=== PATIENT | male | born 1960 | race Caucasian/White ===

== ENCOUNTER 2018-07-28 22:10 | Emergency (ER) | payer MEDICARE, SELFPAY ==
[2018-07-28 22:11] VITALS: BP 109/61; PULSE 87; RESP 16; TEMP 36.3; O2SAT 92; BMI 50.1
--- NOTE | 2018-07-28 22:31 | EKG12_ITS ---
Test Reason : CP Blood Pressure : / mmHG Vent. Rate : 082 BPM Atrial Rate : 082 BPM P-R Int : 174 ms QRS Dur : 112 ms QT Int : 364 ms P-R-T Axes : 033 085 069 degrees QTc Int : 425 ms Sinus rhythm with marked sinus arrhythmia Low voltage QRS Right bundle branch block Abnormal ECG Confirmed by IDRIS HAMLIN, ADAL ([id number]), editor house organ JAVIER GREEN ([id number]) on 08/01/2018 10:33:24 AM Referred By: HUBER Confirmed By:ADAL STEINBERG MD
--- NOTE | 2018-07-28 22:41 | ED.VISSUMM ---
- ER Visit Summary Date of Service: 07/28/18 Chief Complaint: Increased heart rate palpitations History of Present Illness: The patient is a 58 M with a history of atrial fibrillation. He ran out of his metoprolol. He called the pharmacy today to have it refilled but did not get to the pharmacy before closed. About 2 hours ago he began to feel his heart skipping and racing. He states his heart rate was up to 180. On his way in however his symptoms resolved. Currently he is completely asymptomatic. There is no associated chest pain or shortness of breath. He denies any recent illness. No fevers vomiting diarrhea. He currently has no complaints. Physical Examination: Afebrile vitals normal, heart rate 87, blood pressure 109/61 Moist mucous membranes Heart regular rate and rhythm Lungs are clear Abdomen soft Alert Test Results: EKG shows sinus rhythm at a rate of 82 with a right bundle branch block and sinus arrhythmia. This is similar to previous EKG although previous EKG is atrial bigeminy. Labs notable for creatinine 1.8. Emergency Department Course and Treatment: At this time patient is asymptomatic. He missed his metoprolol. He has a prior history of atrial fibrillation and had palpitations less than 2 hours which is now resolved and he is without complaint. I do believe his symptoms are related to having missed his beta-jackson. I discussed with patient that I do not feel further diagnostic testing would be of benefit, patient and family are in agreement. Patient was given his dose of metoprolol here and we will observe on site monitor. During observation on the site monitor patient was having frequent ectopy with frequent PACs and PVCs so we did establish IV and send laboratory studies. Troponin is negative. Magnesium normal. Electrolytes normal. Incidentally BUN is 53 and creatinine is 1.80 which is up from prior labs of 1.0 however this was 2 years ago. Patient was given IV fluids. I do not feel he requires hospitalization for this but he was advised to contact his primary care physician for repeat labs and follow-up. He understands to return for new or worsening symptoms. Treatment Plan: [] Disposition: Discharge Impression: AK I Palpitations This note was generated with [employer] dictation software. It may contain incorrect words, spelling, and punctuation that were not noted in review of the chart prior to signing ED Disposition - Plan for ED Patient: Referrals: Francisco Alcazar MD [Primary Care Provider] -
--- NOTE | 2018-07-28 22:47 | ED.DCSUM_ITS ---
- ER Visit Summary Date of Service: 07/28/18 Chief Complaint: Increased heart rate palpitations History of Present Illness: The patient is a 58 M with a history of atrial fibrillation. He ran out of his metoprolol. He called the pharmacy today to have it refilled but did not get to the pharmacy before closed. About 2 hours ago he began to feel his heart skipping and racing. He states his heart rate was up to 180. On his way in however his symptoms resolved. Currently he is completely asymptomatic. There is no associated chest pain or shortness of breath. He denies any recent illness. No fevers vomiting diarrhea. He currently has no complaints. Physical Examination: Afebrile vitals normal, heart rate 87, blood pressure 109/61 Moist mucous membranes Heart regular rate and rhythm Lungs are clear Abdomen soft Alert Test Results: EKG shows sinus rhythm at a rate of 82 with a right bundle branch block and sinus arrhythmia. This is similar to previous EKG although previous EKG is atrial bigeminy. Labs notable for creatinine 1.8. Emergency Department Course and Treatment: At this time patient is asymptomatic. He missed his metoprolol. He has a prior history of atrial fibrillation and had palpitations less than 2 hours which is now resolved and he is without complaint. I do believe his symptoms are related to having missed his beta- jackson. I discussed with patient that I do not feel further diagnostic testing would be of benefit, patient and family are in agreement. Patient was given his dose of metoprolol here and we will observe on cardiac catheterization technician. During observation on the cardiac catheterization technician patient was having frequent ectopy with frequent PACs and PVCs so we did establish IV and send laboratory studies. Troponin is negative. Magnesium normal. Electrolytes normal. Incidentally BUN is 53 and creatinine is 1.80 which is up from prior labs of 1.0 however this was 2 years ago. Patient was given IV fluids. I do not feel he requires hospitalization for this but he was advised to contact his primary care physician for repeat labs and follow-up. He understands to return for new or worsening symptoms. Treatment Plan: [] Disposition: Discharge Impression: AK I Palpitations This note was generated with [employer] dictation software. It may contain incorrect words, spelling, and punctuation that were not noted in review of the chart prior to signing ED Disposition - Plan for ED Patient: Referrals: Francisco Alcazar MD [Primary Care Provider] -
[2018-07-28 23:23] LABS: Absolute Lymphocyte Count 1.49 X10^3/ul (0.83-4.51); Basophil# 0.01 X10^3/uL; Basophil% 0.1 % (0-1); Eosinophils% 1.4 % (0-5); Hematocrit 39.3 % (40-54); Hemoglobin 12.7 g/dl (13.0-16.5); Lymphocyte # 1.49 X10^3/ul (4.0); Lymphocyte % 20.2 % (19-41); Mean Corp Hgb Conc 32.3 g/gl (32-36); Mean Corpuscular Hgb 29.2 pg (27.0-32.0); Mean Corpuscular Volume 90.3 fL (80-94); Mean Platelet Vol. 9.4 fl (6.2-12.0); Monocyte# 0.76 X10^3/uL; Monocyte% 10.3 % (0-10); Neutrophil # 5.01 X10^3/uL (2.7-7.7); Neutrophil % 67.7 % (47-70); POSITIVE COUNT NO; POSITIVE DIFFERENTIAL NO; POSITIVE MORPHOLOGY NO; Platelet Count 179 K/mm3 (150-450); RBC Distribution Width CV 14.6 % (11.6-14.6); RBC Distribution Width SD 46.9 fl (35.1-43.9); Red Blood Count 4.35 M/mm3 (4.6-6.2); White Blood Count 7.4 K/mm3 (4.4-11.0)
[2018-07-28] MEDS: Metoprolol(XL)Succ 50 MG Tablet PO (23:25)
[2018-07-28 23:29] VITALS: BP 119/60; PULSE 86; RESP 14; O2SAT 98
[2018-07-28 23:44] LABS: Anion Gap 6 (5-15); BUN 53 mg/dL (7-18); BUN/Creat Ratio 29.4 RATIO (10-20); Chloride 102 mmol/L (98-107); EST Glomerular Filtration Rate 41 mL/min (>60); Est Glom Filt Rate - Afr Amer 50 mL/min (>60); Estimated Creatinine Clearance 42.22 ml/min; Glucose 151 mg/dL (74-106); Magnesium 2.2 mg/dL (1.6-2.6); Potassium 4.7 mmol/L (3.5-5.1); Sodium Level 139 mmol/L (136-145)
--- NOTE | 2018-07-28 23:57 | ED.DEP ---
ED Disposition - Plan for ED Patient: Instructions: ED Palpitations Referrals: Francisco Alcazar MD [Primary Care Provider] - Additional Instructions: Your kidney function was elevated from the last labs that we have on record in 2017. He was given IV fluids. However your blood work will need recheck. Call your primary care physician tomorrow to schedule follow-up appointment and repeat labs.
[2018-07-29 00:08] VITALS: BP 119/60; PULSE 85; RESP 16; O2SAT 97
[2018-07-29] MEDS: 0.9% Normal Saline 1,000 ML 999 ML IV (00:14)
[2018-07-29 01:37] VITALS: PULSE 80; RESP 20; O2SAT 96
--- NOTE | 2018-07-29 01:40 | ED.RN ---
dr ravi aware pt is in bigeminy.
[2018-07-29 02:12] VITALS: BP 116/70; PULSE 80; RESP 16; O2SAT 96
== END 2018-07-29 02:13 | disposition home or self-care (01) ==
LOC: ED 22:40
PROVIDERS: Emergency Provider Emergency Medicine; Family Provider Family Medicine; PCP Family Medicine
DX: R00.2 Palpitations (principal); I45.10 Unspecified right bundle-branch block; E11.9 Type 2 diabetes mellitus without complications; I10 Essential (primary) hypertension; E78.00 Pure hypercholesterolemia, unspecified; G47.33 Obstructive sleep apnea (adult) (pediatric); I48.91 Unspecified atrial fibrillation
CPT/HCPCS: 80048; 83735; 84484; 85025; 93005; 96360; 99285; J7030

== ENCOUNTER 2018-09-08 12:22 | Outpatient (RCR) | payer MEDICARE, SELFPAY ==
[2018-08-30 14:26] VITALS: BMI 51.5
[2018-09-08 13:45] LABS: International Normalized Ratio 1.1; Prothrombin Time (Protime)PT. 14.4 SECONDS (11.7-14.9)
== END 2018-09-08 13:00 | disposition home or self-care (01) ==
LOC: LAB 12:22
PROVIDERS: Family Provider Family Medicine; PCP Family Medicine; Referring Provider Internal Medicine Cardiovascular Disease; Visit Provider Internal Medicine Cardiovascular Disease
DX: I48.91 Unspecified atrial fibrillation (principal); I27.29 Other secondary pulmonary hypertension; Z79.01 Long term (current) use of anticoagulants
CPT/HCPCS: 36415; 85610

== ENCOUNTER 2018-09-22 10:25 | Outpatient (RCR) | payer MEDICARE, SELFPAY ==
[2018-08-30 14:26] VITALS: BMI 51.5
[2018-09-15 13:16] LABS: International Normalized Ratio 1.9; Prothrombin Time (Protime)PT. 21.8 SECONDS (11.7-14.9)
[2018-09-22 11:43] LABS: International Normalized Ratio 2.8; Prothrombin Time (Protime)PT. 29.3 SECONDS (11.7-14.9)
== END 2018-09-22 11:00 | disposition home or self-care (01) ==
LOC: LAB 10:25
PROVIDERS: Family Provider Family Medicine; PCP Family Medicine; Referring Provider Internal Medicine Cardiovascular Disease; Visit Provider Internal Medicine Cardiovascular Disease
DX: I48.91 Unspecified atrial fibrillation (principal); I27.20 Pulmonary hypertension, unspecified; Z79.01 Long term (current) use of anticoagulants
CPT/HCPCS: 36415; 85610

== ENCOUNTER 2018-10-28 13:38 | Outpatient (RCR) | payer MEDICARE, SELFPAY ==
[2018-08-30 14:26] VITALS: BMI 51.5
[2018-10-28 15:09] LABS: Prothrombin Time (Protime)PT. 36.1 SECONDS (11.7-14.9)
[2018-10-28 15:32] LABS: International Normalized Ratio 3.6
== END 2018-11-09 17:29 | disposition home or self-care (01) ==
LOC: LAB 13:38
PROVIDERS: Family Provider Family Medicine; PCP Family Medicine; Referring Provider Internal Medicine Cardiovascular Disease; Visit Provider Internal Medicine Cardiovascular Disease
DX: I48.91 Unspecified atrial fibrillation (principal); I27.29 Other secondary pulmonary hypertension; Z79.01 Long term (current) use of anticoagulants
CPT/HCPCS: 36415; 85610

== ENCOUNTER → 2018-10-31 09:27 | Outpatient (CLI) | payer MEDICARE, SELFPAY ==
[2018-08-30 14:26] VITALS: BMI 51.5
--- NOTE | 2018-10-31 09:28 | ECHOCS_ITS ---
Reason For Study: PULMONARY HTN Procedure This was a 2D Doppler, Color Flow transthoracic echocardiogram. The study was technically difficult. Exam performed in department. Left Ventricle Normal size and thickness. The estimated ejection fraction is 50 %. Septal motion consistent with IVCD. Mid-Anterior : Mildly hypokinetic. Mid-anteroseptal : Mildly hypokinetic. Right Ventricle Moderately dilated right ventricle. Normal systolic function. Atria Normal left atrium. Normal right atrium. Normal atrial septum. Bubble contrast study negative for right to left interatrial shunt. Mitral Valve The mitral valve is structurally normal. No prolapse or stenosis seen. Tricuspid Valve Normal tricuspid valve. Mild (1+) tricuspid valve insufficiency. Right ventricular systolic pressure estimated to be 45 mmHg. Mild pulmonary hypertension. Aortic Valve Normal aortic valve. Trisinus/trileaflet aortic valve. Pulmonic Valve The pulmonic valve is not well visualized. Great Vessels Normal aortic root. Normal arch. Normal inferior vena cava. Inferior vena cava collapse with sniff. Pericardium/Pleural No pericardial effusion. Medication 22 gauge I.V. with prn adaptor inserted into right arm. Diluted definity 5ml given slow IV push to enhance endocardial definition. MMode/2D Measurements & Calculations LVIDd: 4.1 cm IVSd: 1.2 cm Ao root diam: 3.1 cm LVIDs: 3.0 cm LVPWd: 1.2 cm FS: 26.8 % LVAd ap4: 31.7 cm2 SV(MOD-sp4): 59.3 ml SV(sp4-el): 61.3 ml EDV(MOD-sp4): 102.4 ml EDV(sp4-el): 105.2 ml LVAs ap4: 19.6 cm2 ESV(MOD-sp4): 43.0 ml ESV(sp4-el): 44.0 ml EF(MOD-sp4): 58.0 % EF(sp4-el): 58.2 % LA dimension(2D): 3.9 cm Time Measurements MV dec time: 0.21 sec Doppler Measurements & Calculations MV E max roderick: 85.7 cm/sec Lat Peak E' Roderick: 9.8 cm/sec Ao V2 max: 172.1 cm/sec MV A max roderick: 59.4 cm/sec E/E' lat: 8.7 Ao max P.8 mmHg MV E/A: 1.4 LV V1 max: 96.7 cm/sec PA V2 max: 128.1 cm/sec TR max roderick: 313.7 cm/sec LV V1 max P.8 mmHg TR max P.4 mmHg Interpretation Summary The estimated ejection fraction is 50 %. Mid-Anterior : Mildly hypokinetic Mid-anteroseptal : Mildly hypokinetic Mild (1+) tricuspid valve insufficiency. Right ventricular systolic pressure estimated to be 45 mmHg. Mild pulmonary hypertension. Moderately dilated right ventricle. Intact mid anteroseptal VSD repaire with previously seen trivial L to R leak. Compared to echo report dated 08/30/2013, LV function and RVSP have remained about the same. Bubble contrast study negative for right to left interatrial shunt. Ordering Physician: Elier Khanna Referring Physician: ZANDRA BOOKER Performed By: Doris Metzger RDCS
== END ==
PROVIDERS: Family Provider Family Medicine; PCP Family Medicine; Referring Provider Internal Medicine Cardiovascular Disease; Visit Provider Internal Medicine Cardiovascular Disease
DX: I27.20 Pulmonary hypertension, unspecified (principal); Z98.890 Other specified postprocedural states
CPT/HCPCS: 93306; Q9957; A4216; C8929

== ENCOUNTER → 2018-11-10 10:15 | Outpatient (CLI) | payer MEDICARE, SELFPAY ==
[2018-08-30 14:26] VITALS: BMI 51.5
--- NOTE | 2018-11-10 10:16 | STEWCON_ITS ---
Reason For Study: CHF, Dyspnea Stress Results Protocol: Dobutamine Stress Echo Maximum Predicted HR: 160 bpm Target HR: 136 bpm % Maximum Predicted HR: 107 % Heart Stage Duration Rate BP Comment (mm:ss) (bpm) No Chest Pain; Diluted Definity 6 ML Given; Patient In Atrial Baseline 71 118/59Fibrillation When Attached to EKG Machine; Converted to NSR When Turned Onto Left Side; Technically Difficult Study DSE 10 MCG 3:54 72 126/73No Chest Pain DSE 20 MCG 3:00 91 124/78No Chest Pain DSE 30 MCG 3:34 171 136/68No Chest Pain; Paroxysmal Atrial Fibrillation Recovery 83 121/78No Chest Pain; Paroxysmal Atrial Fibrillation Stress Duration: 10:28 mm:ss Maximum Stress HR: 171 bpm METS: 1 Baseline Echocardiogram Findings The estimated ejection fraction is 65 %. Stress Echo Wall motion Data Resting WM Intermediate WM Stress WM Resting Wall Motion Wall Motion Stress No regional wall motion No regional wall motion abnormalities noted. abnormalities noted. EKG Data The baseline ECG displays normal sinus rhythm. The patient was titrated from 10 mcg to a maximun of 30 mcg of dobutamine during the stress. The maximum heart rate attained was 171 beats per minute. This was 106% of maximum predicted heart rate. During dobutamine infusion, there were no ST or T wave changes noted to suggest ischemia. No clinical angina was noted. Doppler Measurements & Calculations TR max jill: 348.8 cm/sec TR max P.7 mmHg Interpretation Summary The estimated ejection fraction is 65 %. Normal, adequate, dobutamine echocardiogram. Negative for ischemia by EKG and echocardiographic anterior. No anginal symptoms noted. Rare PVCs noted. Patient had transient atrial fibrillation and supraventricular tachycardia during infusion into recovery. This spontaneously converted back to normal sinus rhythm. Decreased sensitivity due to very poor echo windows requiring Definity enhancing agent. Final LVEF is 75%. No complications. Test terminated due to attainment of target heart rate. The study was technically difficult. Contrast injection was performed. Ordering Physician: Elier Khanna Referring Physician: Francisco Alcazar Performed By: Doris Metzger RDCS
== END ==
PROVIDERS: Family Provider Family Medicine; PCP Family Medicine; Referring Provider Internal Medicine Cardiovascular Disease; Visit Provider Internal Medicine Cardiovascular Disease
DX: R06.00 Dyspnea, unspecified (principal); I27.20 Pulmonary hypertension, unspecified; I10 Essential (primary) hypertension; E78.5 Hyperlipidemia, unspecified; Z87.74 Personal history of (corrected) congenital malformations of heart and circulatory system; R06.02 Shortness of breath
CPT/HCPCS: 93017; 93350; J7040; Q9957; A4216; C8928

== ENCOUNTER 2018-12-05 13:58 | Outpatient (RCR) | payer MEDICARE, SELFPAY ==
[2018-08-30 14:26] VITALS: BMI 51.5
[2018-11-11 16:22] LABS: International Normalized Ratio 3.3; Prothrombin Time (Protime)PT. 33.9 SECONDS (11.7-14.9)
[2018-11-25 17:49] LABS: Prothrombin Time (Protime)PT. 38.2 SECONDS (11.7-14.9)
[2018-11-25 18:12] LABS: International Normalized Ratio 3.9
[2018-12-05 15:04] LABS: International Normalized Ratio 2.3; Prothrombin Time (Protime)PT. 25.4 SECONDS (11.7-14.9)
== END 2018-12-05 15:00 | disposition home or self-care (01) ==
LOC: LAB 13:58
PROVIDERS: Family Provider Family Medicine; PCP Family Medicine; Referring Provider Internal Medicine Cardiovascular Disease; Visit Provider Internal Medicine Cardiovascular Disease
DX: I48.91 Unspecified atrial fibrillation (principal); I27.29 Other secondary pulmonary hypertension; Z79.01 Long term (current) use of anticoagulants
CPT/HCPCS: 36415; 85610

== ENCOUNTER 2018-12-26 16:21 | Outpatient (RCR) | payer MEDICARE, SELFPAY ==
[2018-08-30 14:26] VITALS: BMI 51.5
[2018-12-26 17:37] LABS: International Normalized Ratio 2.1; Prothrombin Time (Protime)PT. 23.8 SECONDS (11.7-14.9)
== END 2018-12-26 18:00 | disposition home or self-care (01) ==
LOC: LAB 16:21
PROVIDERS: Family Provider Family Medicine; PCP Family Medicine; Referring Provider Internal Medicine Cardiovascular Disease; Visit Provider Internal Medicine Cardiovascular Disease
DX: I48.91 Unspecified atrial fibrillation (principal); I27.29 Other secondary pulmonary hypertension; Z79.01 Long term (current) use of anticoagulants
CPT/HCPCS: 36415; 85610

== ENCOUNTER 2019-01-23 15:57 | Outpatient (RCR) | payer MEDICARE, SELFPAY ==
[2018-08-30 14:26] VITALS: BMI 51.5
[2019-01-23 17:47] LABS: International Normalized Ratio 2.6; Prothrombin Time (Protime)PT. 27.6 SECONDS (11.7-14.9)
== END 2019-01-23 18:00 | disposition home or self-care (01) ==
LOC: LAB 15:57
PROVIDERS: Family Provider Family Medicine; PCP Family Medicine; Referring Provider Internal Medicine Cardiovascular Disease; Visit Provider Internal Medicine Cardiovascular Disease
DX: I48.91 Unspecified atrial fibrillation (principal); I27.29 Other secondary pulmonary hypertension; Z79.01 Long term (current) use of anticoagulants
CPT/HCPCS: 36415; 85610

== ENCOUNTER 2019-02-27 13:12 | Outpatient (RCR) | payer MEDICARE, SELFPAY ==
[2018-08-30 14:26] VITALS: BMI 51.5
[2019-02-20 16:17] LABS: International Normalized Ratio 1.8; Prothrombin Time (Protime)PT. 20.9 SECONDS (11.7-14.9)
[2019-02-27 14:54] LABS: International Normalized Ratio 2.5
== END 2019-02-27 18:00 | disposition home or self-care (01) ==
LOC: LAB 13:12
PROVIDERS: Family Provider Family Medicine; PCP Family Medicine; Referring Provider Internal Medicine Cardiovascular Disease; Visit Provider Internal Medicine Cardiovascular Disease
DX: I48.91 Unspecified atrial fibrillation (principal); I27.29 Other secondary pulmonary hypertension; Z79.01 Long term (current) use of anticoagulants
CPT/HCPCS: 36415; 85610

== ENCOUNTER 2019-03-20 14:24 | Outpatient (RCR) | payer MEDICARE, SELFPAY ==
[2018-08-30 14:26] VITALS: BMI 51.5
[2019-03-20 15:52] LABS: International Normalized Ratio 2.2; Prothrombin Time (Protime)PT. 24.6 SECONDS (11.7-14.9)
== END 2019-03-20 18:00 | disposition home or self-care (01) ==
LOC: LAB 14:24
PROVIDERS: Family Provider Family Medicine; PCP Family Medicine; Referring Provider Internal Medicine Cardiovascular Disease; Visit Provider Internal Medicine Cardiovascular Disease
DX: I48.91 Unspecified atrial fibrillation (principal); I27.29 Other secondary pulmonary hypertension; Z79.01 Long term (current) use of anticoagulants
CPT/HCPCS: 36415; 85610

== ENCOUNTER → 2019-03-30 08:44 | Outpatient (CLI) | payer MEDICARE, SELFPAY ==
[2019-03-20 14:51] VITALS: BMI 51.3
[2019-03-30 11:15] LABS: AST(SGOT) 10 U/L (15-37); Alanine Aminotransfer ALT/SGPT 16 U/L (16-61); Albumin, Serum 3.5 g/dL (3.2-5.0); Alkaline Phosphatase 122 U/L (45-117); Bilirubin, Direct 0.29 mg/dL (0.00-0.30); Cholesterol 101 mg/dL (200); Globulin 3.8 g/dL (2.2-4.2); High Density Lipoprotein 28 mg/dL; Protein, Total 7.3 g/dL (6.4-8.2); Triglycerides 108 mg/dL; Very Low Density Lipoprotein 22 mg/dL (5-40)
== END ==
PROVIDERS: Family Provider Family Medicine; PCP Family Medicine; Referring Provider Internal Medicine Cardiovascular Disease; Visit Provider Internal Medicine Cardiovascular Disease
DX: E78.5 Hyperlipidemia, unspecified (principal)
CPT/HCPCS: 36415; 80061; 80076

== ENCOUNTER 2019-04-16 08:54 | Inpatient (IN) | payer MEDICARE, SELFPAY ==
[2019-03-20 14:51] VITALS: BMI 51.3
[2019-04-16] VITALS (17 sets, daily range): BP systolic 109–152; BP diastolic 62–107; PULSE 65–105; RESP 16–26; TEMP 36.7–37.2; O2SAT 77–96; BMI 54.2; BMI 52.5
--- NOTE | 2019-04-16 09:06 | RAD_ITS ---
STUDY: X-RAY CHEST REASON FOR EXAM: Male, 59 years old. Chest pain TECHNIQUE: Frontal view of the chest COMPARISON: X-Ray Chest Generic 29/09/2016 FINDINGS: Poststernotomy changes are present. Mild pulmonary edema is present. There are trace bilateral effusions. There is no pneumothorax. The heart is enlarged. The visualized osseous structures are within normal limits. RAD/Chest 1 View (Portable) IMPRESSION: Congestion with features described above. Electronically Signed: Adonis Sanchez, at 9:40 EST Tel , Service support ,
--- NOTE | 2019-04-16 09:06 | EKG12_ITS ---
Test Reason : SOB Blood Pressure : / mmHG Vent. Rate : 089 BPM Atrial Rate : 089 BPM P-R Int : 168 ms QRS Dur : 118 ms QT Int : 364 ms P-R-T Axes : 032 138 084 degrees QTc Int : 442 ms Normal sinus rhythm with sinus arrhythmia Low voltage QRS Right bundle branch block Abnormal ECG Confirmed by SCOTT HAMLIN, PHILLIP ([id number]), book or script editor JAVIER GREEN ([id number]) on 04/18/2019 8:53:52 AM Referred By: Regulo Figueroa Confirmed By:PHILLIP CHAVEZ MD
[2019-04-16 09:16] LABS: Absolute Lymphocyte Count 1.14 X10^3/uL (0.83-4.51); Absolute Neutrophil Count 9.3 X10^3/uL (2.0-7.7); Basophil# 0.03 X10^3/uL; Basophil% 0.3 % (0-1); Eosinophil# 0.16 X10^3/uL; Eosinophils% 1.4 % (0-5); Hematocrit 43.5 % (40-54); Hemoglobin 12.9 g/dL (13.0-16.5); Lymphocyte # 1.14 X10^3/ul (4.0); Lymphocyte % 9.7 % (19-41); Mean Corp Hgb Conc 29.7 g/dL (32-36); Mean Corpuscular Hgb 27.2 pg (27.0-32.0); Mean Corpuscular Volume 91.8 fL (80-94); Monocyte# 1.18 X10^3/uL; NRBC Flagged by Analyzer 0 % (0-5); Neutrophil # 9.25 X10^3/uL (2.7-7.7); Neutrophil % 78.3 % (47-70); Platelet Count 252 K/mm3 (150-450); RBC Distribution Width CV 14.8 % (11.6-14.6); RBC Distribution Width SD 50.2 fl (35.1-43.9); Red Blood Count 4.74 M/mm3 (4.6-6.2); White Blood Count 11.8 K/mm3 (4.4-11.0)
[2019-04-16] MEDS: Ipratropium 0.5 MG/2.5 ML SOLUTION INHALATION (09:17)
[2019-04-16 09:30] LABS: D-Dimer Quantitative (DVT/PE) 0.48 FEU/ug/m (0.27-0.49)
[2019-04-16 09:36] LABS: Anion Gap 3 (5-15); BUN 25 mg/dL (7-18); BUN/Creat Ratio 15.6 RATIO (10-20); Calcium,Total 8.7 mg/dL (8.5-10.1); Chloride 94 mmol/L (98-107); EST Glomerular Filtration Rate 47 mL/min (>60); Est Glom Filt Rate - Afr Amer 57 mL/min (>60); Estimated Creatinine Clearance 46.91 ml/min; Glucose 266 mg/dL (74-106); Potassium 4.2 mmol/L (3.5-5.1); Sodium Level 138 mmol/L (136-145)
--- NOTE | 2019-04-16 09:46 | ED.DCSUM_ITS ---
- ER Visit Summary Date of Service: 04/16/19 Chief Complaint: Short of breath History of Present Illness: The patient is a 59 M who presents with shortness of breath. He states is been getting worse for the past 3 days. His shortness of breath is worse with exertion and better with rest. He has had a cough is been productive the sputum. He denies any fevers or chest pain. He is not on home oxygen. He is not on CPAP or BiPAP at night. He is on torsemide for history of CHF. He has a history of A. fib and is on Coumadin. He had a recent drive to and from [place] in a car as well. No history of DVT or PE. He does admit to a lot of leg swelling after the trip to [place]. Physical Examination: Vital signs are reviewed. His pulse ox was 85% on room air in triage. HEENT exam has equal pupils. He has moist mucous membranes. Neck is supple. Heart is regular rate and rhythm without murmurs. Lungs have diffuse inspiratory and expiratory wheezing. His chest is nontender. Abdomen is soft and nontender. Back is nontender as well. He has 3+ edema to the legs and they are symmetric. No erythema. Skin reveals no rashes. His neurologic exam is normal. Test Results: EKG is a sinus rhythm with a rate of 89. Right bundle branch block noted. Chest x-ray shows CHF with bilateral small effusions. White blood cell count 11.8. Creatinine 1.6. Glucose 266. INR 2.7. His troponin, BNP and d-dimer are normal Emergency Department Course and Treatment: Patient was given Atrovent. I will give him a dose of Lasix for the CHF. He was placed on supplemental oxygen. I feel he needs to be admitted for diuresis. Patient was discussed with the hospitalist. Treatment Plan: [] Disposition: Admit Impression: CHF exacerbation, hypoxia This note was generated with [employer] dictation software. It may contain incorrect words, spelling, and punctuation that were not noted in review of the chart prior to signing ED Disposition - Plan for ED Patient: Referrals: Francisco Alcazar MD [Primary Care Provider] -
[2019-04-16 09:48] LABS: BNP,B-Type NATRIURETIC PEPTIDE 92.1 pg/mL (0-100)
[2019-04-16 10:11] LABS: International Normalized Ratio 2.7; Prothrombin Time (Protime)PT. 28.7 SECONDS (11.7-14.9)
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
[2019-04-16] MEDS: Furosemide 40 MG/4 ML Vial IV ×3 (10:57→22:04)
--- NOTE | 2019-04-16 11:10 | ECHOCS_ITS ---
Reason For Study: CHF Procedure This was a 2D Doppler, Color Flow transthoracic echocardiogram. The study was technically difficult. The study was technically limited. Limited views were obtained. Due to morbid obesity and patient was lying in supine position. Would not roll on left side. Contrast injection was performed. Exam performed portable in patient room. Left Ventricle Normal LV size. Left ventricular systolic function is normal. The estimated ejection fraction is 60 %. No regional wall motion abnormalities noted. Right Ventricle Normal RV size. Normal systolic function. Atria The left atrium is not well visualized. The right atrium is not well visualized. Mitral Valve Mitral valve not well visualized. Tricuspid Valve The tricuspid valve is not well visualized. Aortic Valve The aortic valve is not well visualized. Great Vessels Normal aortic root. Pericardium/Pleural No pericardial effusion. Medication Diluted definity 7.0ml given slow IV push to enhance endocardial definition. MMode/2D Measurements & Calculations LVIDd: 4.4 cm FS: 33.0 % LA dimension(2D): 4.9 cm LVIDs: 2.9 cm RVDd: 4.4 cm Doppler Measurements & Calculations Ao V2 max: 111.0 cm/sec LV V1 max: 80.3 cm/sec TR max jill: 265.9 cm/sec Ao max P.4 mmHg LV V1 max P.6 mmHg TR max P.5 mmHg Interpretation Summary Normal LV size. Left ventricular systolic function is normal. The estimated ejection fraction is 60 %. Contrast injection was performed. The study was technically difficult. Ordering Physician: Regulo Figueroa Referring Physician: Francisco Alcazar Performed By: Jess Horvath RDCS, RVT
[2019-04-16] MEDS: Acetaminophen 325 MG Tablet 650 MG PO (12:22)
[2019-04-16] MEDS: Insulin Lispro 100 UNIT/ML INSULN.PEN SC ×3 (12:22→22:08)
[2019-04-16 12:30] LABS: Bedside Glucose 205 mg/dL (70-110)
[2019-04-16] MEDS: 0.9% Saline Lock 10 ML Syringe IV (14:38)
[2019-04-16 17:06] LABS: Bedside Glucose 224 mg/dL (70-110)
[2019-04-16] MEDS: Albuterol 2.5 MG/3 ML VIAL.NEB. INHALATION (18:57)
[2019-04-16] MEDS: Atorvastatin Calcium 20 MG Tablet PO (22:04)
[2019-04-16 22:11] LABS: Bedside Glucose 265 mg/dL (70-110)
[2019-04-17] VITALS (37 sets, daily range): BP systolic 79–173; BP diastolic 39–121; PULSE 68–147; RESP 12–148; TEMP 36.4–37.2; O2SAT 88–99
[2019-04-17] MEDS: Furosemide 40 MG/4 ML Vial IV (05:28)
[2019-04-17] MEDS: Albuterol 2.5 MG/3 ML VIAL.NEB. INHALATION (05:35)
--- NOTE | 2019-04-17 05:40 | RAD_ITS ---
STUDY: X-RAY CHEST REASON FOR EXAM: Male, 59 years old. INCREASED SOB TECHNIQUE: Single AP portable view of the chest. COMPARISON: 04/16/2019. FINDINGS: There are bilateral pulmonary infiltrates, probably representing CHF with pulmonary edema. Not significantly changed from previous study. There is a small right pleural effusion. The heart is enlarged. There are sternotomy wires. Normal mediastinum and kelsie. Normal visualized pulmonary arteries. Normal visualized aortic arch and descending thoracic aorta. There are diffuse degenerative changes of the visualized thoracic spine. There are no visualized acute osseous abnormalities. There is no demonstrated abnormality of the visualized soft tissue structures of the upper abdomen. RAD/Chest 1 View (Portable) IMPRESSION: Cardiomegaly with CHF and pulmonary edema. Small right pleural effusion. No definite change from previous study. Electronically Signed: Fer Dotson MD at 7:01 EST , Service support ,
[2019-04-17 05:46] LABS: Absolute Neutrophil Count 10.2 X10^3/uL (2.0-7.7); Basophil# 0.04 X10^3/uL; Basophil% 0.3 % (0-1); Eosinophil# 0.12 X10^3/uL; Eosinophils% 0.9 % (0-5); Hematocrit 44.6 % (40-54); Hemoglobin 12.7 g/dL (13.0-16.5); Lymphocyte % 8.4 % (19-41); Mean Corp Hgb Conc 28.5 g/dL (32-36); Mean Corpuscular Hgb 27.3 pg (27.0-32.0); Mean Corpuscular Volume 95.7 fL (80-94); Mean Platelet Vol. 9.1 fl (6.2-12.0); Monocyte# 1.58 X10^3/uL; NRBC Flagged by Analyzer 0.2 % (0-5); Neutrophil # 10.19 X10^3/uL (2.7-7.7); Neutrophil % 77.7 % (47-70); POSITIVE DIFFERENTIAL YES; Platelet Count 263 K/mm3 (150-450); RBC Distribution Width CV 15.3 % (11.6-14.6); RBC Distribution Width SD 53.6 fl (35.1-43.9); Red Blood Count 4.66 M/mm3 (4.6-6.2); White Blood Count 13.1 K/mm3 (4.4-11.0)
[2019-04-17 05:52] LABS: Prothrombin Time (Protime)PT. 30.9 SECONDS (11.7-14.9)
[2019-04-17 05:53] LABS: Differential Indicated SCAN CRITERIA MET
--- NOTE | 2019-04-17 06:03 | PN_ITS ---
Progress Note Patient with a history of VSD status post repair; paroxysmal supraventricular tachycardia status post 3 ablation with recurrence of symptoms who is being treated for acute exacerbation of heart failure. Patient is on Lasix 40 mg IV every 8 hours. Overnight nurse reported that patient has not had any urine output. Bladder scan showed only about 40 mL's of urine. Order given to give additional 40 mg of Lasix IV. Also patient noted to have episodes of SVT on telemetry. Order for chest x-ray given. Patient was examined at bedside. Pat ient reports a feeling of fatigue. Patient with orthopnea and paroxysmal nocturnal dyspnea. Heart sounds S1-S2 present. Lungs showed some mild wheezes. Abdomen bowel sounds present, soft nontender. Bilateral extremities edema. Stat chest x-ray interpreted by me still showed diffuse pulmonary infiltrates consistent of heart failure. Discussed the case with historical manuscripts curator Dr. Sheffield who will see patient. STROKE Vital Signs/Narrative: Vital Signs Temp Pulse Resp BP Pulse Ox 04/17/19 05:38 93 04/17/19 05:37 88 04/17/19 05:36 90 26 H 04/17/19 05:25 98.1 F 85 26 H 113/66 89 04/17/19 03:32 147 H 04/17/19 03:13 98.5 F 87 18 134/66 H 95 04/17/19 03:02 85
[2019-04-17 06:12] LABS: Anion Gap 3 (5-15); BUN 38 mg/dL (7-18); BUN/Creat Ratio 15.9 RATIO (10-20); Calcium,Total 8.2 mg/dL (8.5-10.1); Chloride 95 mmol/L (98-107); Creatinine, Serum 2.39 mg/dL (0.70-1.30); EST Glomerular Filtration Rate 30 mL/min (>60); Est Glom Filt Rate - Afr Amer 36 mL/min (>60); Glucose 247 mg/dL (74-106); Magnesium 2.8 mg/dL (1.6-2.6); Potassium 5.2 mmol/L (3.5-5.1); Sodium Level 139 mmol/L (136-145)
[2019-04-17] MEDS: Insulin Lispro 100 UNIT/ML INSULN.PEN SC ×3 (06:44→21:29)
[2019-04-17 07:01] LABS: Differential Comment SCANNED
[2019-04-17 07:11] LABS: Bedside Glucose 217 mg/dL (70-110)
--- NOTE | 2019-04-17 07:43 | CT_ITS ---
STUDY: CT CHEST WITHOUT CONTRAST REASON FOR EXAM: Male, 59 years old. SOB x several weeks, worse x 3 days, increased edema, recent travel, cough. Hx diabetes, hypertension, Afib, CHF, VSD repair at age 3. RADIATION DOSAGE (If Supplied By Facility): CTDIvol = ( 28.71 ) mGy, DLP = ( 1039.79 ) mGycm TECHNIQUE: Transaxial imaging was performed without the administration of intravenous contrast material. Multiplanar coronal and sagittal images were reformatted. Individualized dose optimization techniques were used for this CT. COMPARISON: None. FINDINGS: Patchy bilateral perihilar infiltrates as well as in the lower lobes worse on the left side and right middle lobe with volume loss. Follow-up is recommended. There is no demonstrated pleural abnormality. Sternal cerclage wires and vascular clips are present from a prior sternotomy and coronary artery bypass graft procedure (CABG). There are calcifications of the coronary arteries. Calcification of the mitral valve annulus. There are multiple small lymph nodes within the mediastinum, which are normal in size and morphology most compatible with reactive lymph hyperplasia. Normal hilar regions. Normal unenhanced pulmonary arteries. There is atherosclerotic calcification of the aortic arch with tortuosity and elongation of the aortic arch and descending thoracic aorta. There are multi-level degenerative changes of the thoracic spine. Slightly distended esophagus with the air-fluid level. CT/Chest without Contrast IMPRESSION: Patchy bilateral pulmonary infiltrates. Follow-up is recommended. Electronically Signed: Fortunato Francisco, at 14:26 EST , Service support ,
--- NOTE | 2019-04-17 07:45 | CON.PCM_ITS ---
Reason for Consult Date of Consultation: 04/17/19 Reason for Consultation: Irregular heartbeat History of Present Illness: The patient is a 59 year old M with a past medical history significant for hypertension, obesity, status post VSD repair at age 3, and previous supraventricular tachyarrhythmias for which he has undergone at least 2 episodes of unsuccessful atrial fibrillation ablation. He recently returned from a trip with his and complained of pedal edema and worsening shortness of breath. He presented to the emergency room was evaluated and thought to be in congestive heart failure. He was admitted and diuresed and through the night has had periods of paroxysmal supraventricular tachyarrhythmia as well as shortness of breath. Interestingly his natruretic peptide level was ordered and noted to be in 92. Cardiology was asked to see him due to his recurrent fast heartbeats. [] Past Medical History Allergies/Adverse Reactions: Allergies amoxicillin trihydrate [From Augmentin] Adverse Reaction (Verified 03/20/19 15:00) Diarrhea indomethacin [From Indocin] Adverse Reaction (Verified 04/16/19 08:55) Nausea potassium clavulanate [From Augmentin] Adverse Reaction (Verified 03/20/19 15:00) Diarrhea Home Medications: Ambulatory Orders Medication Instructions Recorded Atorvastatin Calcium 20 mg PO QHS 04/16/19 Lisinopril 30 mg PO DAILY 04/16/19 Metformin HCl [Metformin HCl ER] 1,000 mg PO BID 04/16/19 Metoprolol Succinate 100 mg PO DAILY 04/16/19 Spironolactone 25 mg PO DAILY 04/16/19 Torsemide 20 mg PO BID 04/16/19 Warfarin [Coumadin ([facility]KC)] 2.5 mg PO TUWE 04/16/19 Warfarin [Coumadin (PBKC)] 5 mg PO SUMOTHFRSA 04/16/19 Past Medical History (Chronic Problems): Chronic 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 Sherif Espinoza @ [facility]: normal coronaries, mildly elevated PA pressures Paroxysmal SVT (supraventricular tachycardia) (Chronic) Atrial fibrillation (Chronic) History of atrial flutter (Chronic) Attempted atrial flutter ablation @ [facility] X 1 in 1997 (unsuccessful), followed by Atrial flutter ablations X [address] Paul at [facility] in Apr and October of 1998 Chronic diastolic congestive heart failure (Chronic) History of patent ductus arteriosus as a child (Chronic) Repaired at age 3 years, done @ [facility] Nonrheumatic tricuspid valve regurgitation (Chronic) Leaflet used for VSD repair in past History of ventricular septal defect repair (Chronic) 1977 (pt approx age 18) using Dacron patch, done at [facility] Hyperlipidemia (Chronic) Hypertension (Chronic) Diabetes mellitus, type II (Chronic) History of radiofrequency ablation procedure for cardiac arrhythmia (Chronic) Attempted atrial flutter ablation @ [facility] X 1 (unsuccessful), followed by Atrial flutter ablations X [address] Paul at [facility] in Apr and October of 1998 Pulmonary hypertension, moderate to severe (Chronic) PASP 69 mmHg in September 2013 LASHAWN (obstructive sleep apnea) (Chronic) Surgical History: - - VSD repair using tricuspid valve leaflet. PDA repair - *Family History Maternal Family History: Family History (Last Reviewed 04/16/19 @ 11:27 by Regulo Figueroa MD) Mother Hypertension Diabetes CVA (cerebral vascular accident) Valvular heart disease Father CVA (cerebral vascular accident) Hypertension Hyperlipidemia History Items: Heart Disease Smoking Status: Former smoker Alcohol: None Drugs: None Review of Systems - Review of Systems General: Denies: Fever, Night Sweats, Fatigue HEENT: Denies: Vision Change Cardiovascular: Reports: Shortness of Breath, Shortness of Breath at Rest, Peripheral Edema. Denies: Chest Discomfort, Orthopnea, PND, Palpitations, Lightheadedness, Dizziness, Near Syncope, Syncope Respiratory: Denies: Cough, Sputum Production, Hemoptysis Gastrointestinal: Denies: Hematemesis, Hematochezia, Melena Genitourinary: Denies: Dysuria, Hematuria Skin: Denies: Rash Neurological: Denies: Dizziness Psychiatric: Denies: Anxiety Endocrine: Denies: Unexplained Weight Loss Hematologic/ Lymphatic: Denies: Anemia Subjectve: Middle-aged man appears to be in some respiratory distress Objective: Vital Signs Temp Pulse Resp BP Pulse Ox 98.1 F 90 23 H 108/61 92 04/17/19 06:44 04/17/19 06:44 04/17/19 06:44 04/17/19 06:44 04/17/19 06:44 Oxygen Flow Rate (L/min) 4 Oxygen Delivery Method Nasal Cannula Weight: 347 lb 14.231 oz Body Mass Index (BMI) 52.5 Intake and Output for Last 24 Hours 04/15/19 04/16/19 04/17/19 23:59 23:59 23:59 Intake Total 480 / 480 60 / 60 Output Total 350 / 350 Balance 480 / 480 -290 / -290 General: Awake, Alert, Oriented x 3 HEENT: PERRL, EOMI, Sclera Non Icteric Neck: Supple, Good ROM, No Lymph Node Enlargement Lungs: Diminished Champ Bases Cardiovascular: Irregular Rhythm, Normal S1, Normal S2, No Murmurs, No Rubs, No Gallops Vascular: No Carotid Bruits, Normal Femoral Pulses, Normal Radial Pulses, Normal Dorsalis Pedal Pulse, Normal Posterior Tibial Pulses Abdomen: Bowel Sounds Present, Soft, Non Tender, No HSM, No Organomegaly Extremities: No Cyanosis, No Clubbing, Bilateral Edema +2 Musculoskeletal: No Erythema Skin: No Rashes Lymphatic: No Lymph Node Enlargement Neurological: No Focal Motor or Sensory Deficit Psych/Mental Status: Appropriate 04/16/19 08:05: PT 28.7 H, INR 2.7 04/16/19 08:55: WBC 11.8 H, RBC 4.74, Hgb 12.9 L, Hct 43.5, MCV 91.8, MCH 27.2, MCHC 29.7 L, Plt Count 252, MPV 9.0, Immature Gran % (Auto) 0.300, Neut % (Auto) 78.3 H, Lymph % (Auto) 9.7 L, [place] % (Auto) 10.0, Eos % (Auto) 1.4, Baso % (Auto) 0.3, Absolute Neuts (auto) 9.3 H, Nucleated RBC % 0 04/16/19 08:55: D-Dimer Quant (PE/DVT) 0.48 04/16/19 08:55: Sodium 138, Potassium 4.2, Chloride 94 L, Carbon Dioxide 41.0 H, Anion Gap 3 L, BUN 25 H, Creatinine 1.60 H, Est GFR (MDRD) Af Amer 57 L, Est GFR (MDRD) Non-Af 47 L, BUN/Creatinine Ratio 15.6, Glucose 266 H, Calcium 8.7, Troponin I < 0.015 04/16/19 08:55: B-Natriuretic Peptide 92.1 04/16/19 11:55: Troponin I < 0.015 04/16/19 14:55: Troponin I < 0.015 04/17/19 05:25: Sodium 139, Potassium 5.2 H, Chloride 95 L, Carbon Dioxide 41.0 H, Anion Gap 3 L, BUN 38 H, Creatinine 2.39 H, Est GFR (MDRD) Af Amer 36 L, Est GFR (MDRD) Non-Af 30 L, BUN/Creatinine Ratio 15.9, Glucose 247 H, Calcium 8.2 L, Magnesium 2.8 H 04/17/19 05:25: WBC 13.1 H, RBC 4.66, Hgb 12.7 L, Hct 44.6, MCV 95.7 H, MCH 27.3, MCHC 28.5 L, Plt Count 263, MPV 9.1, Immature Gran % (Auto) 0.700, Neut % (Auto) 77.7 H, Lymph % (Auto) 8.4 L, Juncos % (Auto) 12.0 H, Eos % (Auto) 0.9, Baso % (Auto) 0.3, Absolute Neuts (auto) 10.2 H, Nucleated RBC % 0.2 04/17/19 05:25: PT 30.9 H, INR 3.0 Rhythm: EKG: ECHO: Stress Test: Cardiac Cath: PCI: CT Surgery: Holter monitor: EPS: PPM: CXR: Chest CT Scan: Assessment/Plan 1. Shortness of breath * The etiology of the above is unclear at this particular time. His natruretic peptide does not support significant heart failure though it can be falsely low with obesity. A repeat is pending at this particular time. * I will hold off on further diuresis for now. * Further work-up to exclude a pulmonary embolus is ongoing even though he did have a therapeutic INR * An echocardiogram is pending to assess his left ventricular function * 2. Supraventricular tachycardia and atrial fibrillation * Patient is anticoagulated for the above * He is also on a beta-jackson. He is status post failed ablation. I would recommend that we start him on amiodarone short-term to see whether this would be able to control his heart rate. Depending on the findings further recommendations will be made. * 3. Hypertension * Good control on the current medical therapy. No major changes will be made at this time. * * Above discussed with hospitalist. * Thank you for allowing me to participate in the care of your patient. Please don't hesitate to call if any issues arise
--- NOTE | 2019-04-17 07:51 | NM_ITS ---
CLINICAL: 59-year-old male with reported history of shortness of breath. VENTILATION-PERFUSION LUNG SCINTIGRAPHY COMPARISON: Plain film chest radiograph 04/17/2019 FINDINGS: The patient was administered 44.0 mCi 99m Tc DTPA aerosol. The aerosol ventilation study demonstrates heterogeneous ventilation in the bilateral lung franco without corresponding radiographic changes visualized on review of plain film chest x-ray dated 04/14/2019. Central clumping of the aerosol is identified in the bilateral hemithorax. Following the intravenous administration of 5.6 mCi of 99m Tc MAA, the pulmonary perfusion study reveals matching non-uniform perfusion in the right and left lungs correlating with the previously defined ventilation pattern. No moderate subsegmental or large segmental ventilation-perfusion mismatches are noted. There are regions of retained normal perfusion visualized. NM/Quant Lung Vent/Perf Scan IMPRESSION: 1. VERY LOW PROBABILITY FOR PULMONARY EMBOLUS (<10%) 99m Tc DTPA aerosol ventilation / 99m Tc MAA pulmonary perfusion imaging examination, according to PIOPED II interpretive criteria with regard given to the presence of > 2 ventilation-perfusion matches without corresponding radiographic changes. (Sotsman et al, Radiology 246: 941, 2008 Soziggy et al, J Nucl Med 49: 1741, 2008). 2. Central clumping of the aerosol may be secondary to obstructive airway mechanics and or clinical tachypnea. Electronically Signed: Neftaly Marin DO at 14:07 EST Tel , Service support ,
--- NOTE | 2019-04-17 07:55 | VDLE_ITS ---
Reason For Study: Shoetness of breath RIGHT LEFT GSV is normal. GSV is normal. FV is compressible, spontaneous, phasic, FV is compressible, spontaneous, phasic, competent and demonstrates normal competent and demonstrates normal augmentation. augmentation. POP V is compressible, spontaneous, phasic, POP V is compressible, spontaneous, phasic, competent and demonstrates normal competent and demonstrates normal augmentation. augmentation. T/P Trunk is compressible. T/P Trunk is compressible. PTV is compressible. PTV is compressible. RT PerV is compressible. LT PerV is compressible. Unable to visualize right CFV and SFJ due to Unable to visualize left CFV and SFJ due to pt body habitus. pt body habitus. Procedure Exam performed portable in patient room. The study was technically limited. A preliminary report was called and/or faxed to [facility]. Interpretation Summary No evidence for acute deep venous thrombosis bilateral lower extremities with patent and compressible bilateral great saphenous veins. Unable to visualize bilateral common femoral vein and saphenofemoral junctions secondary to patient's body habitus Ordering Physician: Marycruz Serrano Referring Physician: Frnacisco Alcazar Performed By: Lani Quarles RVT
[2019-04-17 08:27] LABS: BNP,B-Type NATRIURETIC PEPTIDE 107.9 pg/mL (0-100)
--- NOTE | 2019-04-17 09:15 | NURSING ---
This RN received report from Helio Sahu RN. Will be taking over care for this pt at this time.
[2019-04-17 10:10] LABS: Allen Test POS; Base Excess 15 mmol/L (-2 to +2); Bicarbonate 43.6 mmol/L (22-26); Blood Gas Specimen Type ART; O2 Delivery Device Nasal Can; PO2 79 mmHG (75-100); SITE R Brachial; SO2 91 % (95-99); Time Given 1000; Total Carbon Dioxide 47 mmol/L; pCO2 112.1 mmHg (35-45)
[2019-04-17] MEDS: Amiodarone 200 MG Tablet PO ×2 (10:17→21:17)
[2019-04-17 11:11] LABS: Bedside Glucose 205 mg/dL (70-110)
--- NOTE | 2019-04-17 11:50 | CASEMGMT ---
RN JENNYFER DERRICKMAN HELPER CM to room for initial transition planning/care coordination assessment. Pt resting in bed w/BIPAP mask in place, groggy. RN CM introduced self and role at [facility]. Pt did open his eyes briefly and nodded his head when RN CM spoke to him, but then quickly fell back asleep. in room visiting and answered the following questions. Care providers, pharmacy, and demographics verified at this time. PCP: [facility] Specialists: Jey--pulpwood cutter. states pt saw a harbor police launch commander over the summer but she does not remember his name. She states she does not think pt has any follow-up visits scheduled. [facility]erred [facility]acy[facility] Insurance: [facility] Prescription Benefit: Yes Living Will/HPOA: states pt does not have LW or HCPOA . She states she is interested in more information and thinks pt may be interested in completing paperwork this admission. She was made aware to ask for SW if pt does want to once he is more awake/alert. given AD info and User Interface Developer Rac and made aware if this can be completed as an out-pt as well. She voices understanding. LNOK: , 2 sons Living Arrangements: Lives with his in 2-story home. 7 or 8 steps to get to main floor. states pt does have some difficulty with the stairs d/t gets SOB. Pt is independent w/ADL's. assists with donning shoes and home mgmt tasks. Pt was able to assist with cooking and laundry up until the past couple weeks when pt began getting more SOB and weak. supportive and able to assist as needed. Transportation: Pt, . DME: Has the following DME: Has either BIPAP or CPAP ( unsure) but pt does not wear. states he got it approx 5 years ago through [facility] but states, He wasn't able to get used to it. Discussed that there may be other options of masks/nose piece that pt may be able to tolerate better. given list of local DME companies along with [facility] and advised to follow-up with [facility] as [facility]'s clients/info may be on file with them to see if they can assist with alternative masks/nose piece for unit. Pt also has a glucometer that is working properly but states pt ran out of strips awhile ago. LOGISTICS PLANNER CM made aware. Pt does not have home O2. states she feels pt needs it at home but that he has not qualified for it yet. She states they just recently bought our own oxygen tanks. denies need for further DME at this time. HHC/SNF: No history of either. PT/OT evals pending. RN CM to follow for any HHC or OP therapy needs. CM to follow for home oxygen needs and any further discharge planning/needs. voices no further concerns/needs at this time. Advised her to ask for CM if any further questions/concerns/needs arise. Voices understanding. PLAN: Home. Follow PT/OT evals. Will need Home oxygen testing completed prior to discharge. Pt needs script for glucometer strips. Dedrick MUNIZ RN CM
--- NOTE | 2019-04-17 12:07 | PCM.CONS.R ---
Problem List (1) MOUNA (acute kidney injury) Status: Acute Consultation - Renal 04/17/19 PCP/ Referring MD: Requesting physician: Dr Serrano Primary care physician: Francisco Alcazar MD Reason for Consultation:: MOUNA - History of Present Illness History of Present Illness: The patient is a 59 year old M admitted to the hospital with complaints of progressively worsening shortness of breath for the last 2 weeks. He has known history of congenital heart disease status post VSD repair when he was young, was following with Dr. Khanna here. Apparently he went to [place] by car and over the last 2 weeks developed progressively worsening shortness of breath and associated significant lower extremity edema. This was associated with about 12 pound weight gain. Denies any urinary complaints. Renal consulted for acute renal failure. Reviewed records from primary care physician's office. Baseline creatinine seems to be around 1.3. Current creatinine is 2.3. Remote history of kidney stones. Denies any urinary complaints. He did have a Barcenas catheter as of yesterday but this was removed due to discomfort. Patient states he has been voiding without any issues. Has been on Lasix 40 mg IV 3 times daily overnight. Weight did go down since admission. ABG this morning showed severe respiratory acidosis with PCO2 of 112. Currently on BiPAP. Somewhat drowsy. - Allergies Allergies: Allergies amoxicillin trihydrate [From Augmentin] Adverse Reaction (Verified 03/20/19 15:00) Diarrhea indomethacin [From Indocin] Adverse Reaction (Verified 04/16/19 08:55) Nausea potassium clavulanate [From Augmentin] Adverse Reaction (Verified 03/20/19 15:00) Diarrhea - Current Medications Current Medications: Current Medications Acetaminophen (Tylenol) 650 mg PO Q6H PRN PRN PRN Reason: Pain Score 1-3/Temp > 100.7 F Last Admin: 04/16/19 12:22 Dose: 650 mg Documented by: Al Hydroxide/Mg Hydroxide (Mylanta Ii) 30 ml PO Q6H PRN PRN PRN Reason: Gastric Burning Albuterol Sulfate (Ventolin Aerosols) 2.5 mg INHALATION Q2H PRN PRN PRN Reason: SOB/Wheezing Last Admin: 04/17/19 05:35 Dose: 2.5 mg Documented by: Amiodarone HCl (Cordarone) 200 mg PO BID DANIEL Last Admin: 04/17/19 10:17 Dose: 200 mg Documented by: Atorvastatin Calcium (Lipitor) 20 mg PO QHS [facility] Last Admin: 04/16/19 22:04 Dose: 20 mg Documented by: Furosemide (Lasix) 40 mg IV Q8 [facility] Last Admin: 04/17/19 05:28 Dose: 40 mg Documented by: Glucagon () 1 mg IM .X1 PRN PRN Reason: Hypoglycemia Guaifenesin (Robitussin) 20 ml PO Q4H PRN PRN PRN Reason: COUGH Dextrose (Dextrose 10%-Water) 250 mls @ 999 mls/hr IV .Q16M PRN; Protocol PRN Reason: HYPOGLYCEMIA Insulin Human Lispro (Humalog Kwikpen (Bkc)) 0 unit SC ACHS [facility]; Protocol Last Admin: 04/17/19 11:18 Dose: Not Given Documented by: Magnesium Hydroxide (Milk Of Magnesia) 30 ml PO DAILY PRN PRN PRN Reason: Constipation Melatonin (Melatonin) 3 mg PO QHS PRN PRN PRN Reason: INSOMNIA Metoprolol Succinate (Toprol Xl (Beta Rakesh)) 100 mg PO DAILY [facility] Last Admin: 04/17/19 11:17 Dose: Not Given Documented by: Nitroglycerin (Nitrostat) 0.4 mg SUBLINGUAL Q5M PRN PRN Reason: CARDIAC/CHEST PAIN Ondansetron HCl (Zofran) 4 mg IV Q8H PRN PRN PRN Reason: NAUSEA/VOMITING Oxycodone HCl (Oxyir) 5 mg PO Q4H PRN PRN PRN Reason: Pain Score 4-5/10 Oxycodone HCl (Oxyir) 10 mg PO Q4H PRN PRN PRN Reason: Pain Score 6-10/10 Sodium Chloride () 10 - 40 ml IV UD PRN PRN Reason: SALINE FLUSH Last Admin: 04/16/19 14:38 Dose: 20 ml Documented by: Warfarin Sodium (Coumadin (Pbkc)) 2.5 mg PO TuWe@[id number] [facility] Warfarin Sodium (Coumadin (Pbkc)) 5 mg PO SuMoThFrSa@0 [facility] Last Admin: 04/16/19 22:03 Dose: 5 mg Documented by: - Past Medical History Past Medical History (Chronic Problems): Chronic Problems (Last Reviewed 04/16/19 @ 11:18 by Regulo Figueroa MD) 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 Sherif Espinoza @ [facility]: normal coronaries, mildly elevated PA pressures Paroxysmal SVT (supraventricular tachycardia) (Chronic) Atrial fibrillation (Chronic) History of atrial flutter (Chronic) Attempted atrial flutter ablation @ [facility] X 1 in 1997 (unsuccessful), followed by Atrial flutter ablations X [address] Paul at [facility] in Apr and October of 1998 Chronic diastolic congestive heart failure (Chronic) History of patent ductus arteriosus as a child (Chronic) Repaired at age 3 years, done @ [facility] Nonrheumatic tricuspid valve regurgitation (Chronic) Leaflet used for VSD repair in past History of ventricular septal defect repair (Chronic) 1977 (pt approx age 18) using Dacron patch, done at [facility] Hyperlipidemia (Chronic) Hypertension (Chronic) Diabetes mellitus, type II (Chronic) History of radiofrequency ablation procedure for cardiac arrhythmia (Chronic) Attempted atrial flutter ablation @ [facility] X 1 (unsuccessful), followed by Atrial flutter ablations X [address] Paul at [facility] in Apr and October of 1998 Pulmonary hypertension, moderate to severe (Chronic) PASP 69 mmHg in September 2013 LASHAWN (obstructive sleep apnea) (Chronic) - Past Surgical History Surgical History: - - VSD repair using tricuspid valve leaflet. PDA repair - Social History Smoking Status: Former smoker Alcohol: None Drugs: None - Family History Maternal Family History: Family History (Last Reviewed 04/16/19 @ 11:27 by Regulo Figueroa MD) Mother Hypertension Diabetes CVA (cerebral vascular accident) Valvular heart disease Father CVA (cerebral vascular accident) Hypertension Hyperlipidemia History Items: Heart Disease Review of Systems Constitutional: Denies: Chills, Fever, Weight Change HEENT: Denies: Head Aches, Sinus Congestion, Sinus Drainage Cardiovascular: Reports: Edema. Denies: Chest Pain, Palpitations Respiratory: Denies: Cough, Shortness of breath at rest, Sputum production Gastrointestinal: Denies: Abdominal Pain, Nausea, Vomiting Genitourinary: Denies: Dysuria Musculoskeletal: Denies: Joint Pain, Joint Tenderness Skin: Denies: Rash, Wounds Neurological: Denies: Numbness, Tingling, Focal weakness Psychiatric: Denies: Anxiety, Depression, Homicidal Ideations, Suicidal Ideations Hematologic/ Lymphatic: Denies: Easy Bruising, Easy Bleeding Patient Problems: Active and Suspected Problems (Last Reviewed 04/16/19 @ 11:18 by Regulo Figueroa MD) CHF (congestive heart failure) (Acute) MOUNA (acute kidney injury) (Acute) - Physical Exam Vitals/I&O's: Vital Signs Temp Pulse Resp BP Pulse Ox 97.8 F 103 H 22 H 107/80 95 04/17/19 11:00 04/17/19 11:17 04/17/19 11:00 04/17/19 11:00 04/17/19 11:00 Oxygen Flow Rate (L/min) 4 Oxygen Delivery Method Bi-pap Weight: 157.8 kg Body Mass Index (BMI) 52.5 Intake and Output for Last 24 Hours 04/15/19 04/16/19 04/17/19 23:59 23:59 23:59 Intake Total 480 / 480 163 / 163 Output Total 350 / 350 Balance 480 / 480 -187 / -187 General: Alert, Oriented x3, Cooperative HEENT: Atraumatic, PERRLA, EOMI, Normocephalic Neck: Supple, No JVD, Negative Carotid Bruits Lungs: Clear to auscultation, Normal air movement Cardiovascular: Regular rate, No murmurs Abdomen: Bowel Sounds Present, Soft, Non Tender Extremities: Capillary Refill Less than 3 Seconds, Edema Skin: No rashes, No breakdown Musculoskeletal: No Tenderness to Palpation of Joints or Extremities Neurological: Cranial nerves II-XII grossly intact Psych/Mental Status: Normal Affect, Appropriate Laboratory Results 04/16/19 11:55: Troponin I < 0.015 04/16/19 12:19: POC Glucose 205 H 04/16/19 14:55: Troponin I < 0.015 04/16/19 17:00: POC Glucose 224 H 04/16/19 22:07: POC Glucose 265 H 04/17/19 05:25: Sodium 139, Potassium 5.2 H, Chloride 95 L, Carbon Dioxide 41.0 H, Anion Gap 3 L, BUN 38 H, Creatinine 2.39 H, Estim Creat Clear Calc 31.40, Est GFR (MDRD) Af Amer 36 L, Est GFR (MDRD) Non-Af 30 L, BUN/Creatinine Ratio 15.9, Glucose 247 H, Calcium 8.2 L, Magnesium 2.8 H 04/17/19 05:25: WBC 13.1 H, RBC 4.66, Hgb 12.7 L, Hct 44.6, MCV 95.7 H, MCH 27.3, MCHC 28.5 L, RDW Std Deviation 53.6 H, RDW Coeff of Janiya 15.3 H, Plt Count 263, MPV 9.1, Immature Gran % (Auto) 0.700, Neut % (Auto) 77.7 H, Lymph % (Auto) 8.4 L, [place] % (Auto) 12.0 H, Eos % (Auto) 0.9, Baso % (Auto) 0.3, Absolute Neuts (auto) 10.2 H, Absolute Lymphs (auto) 1.10, Nucleated RBC % 0.2, Differential Comment SCANNED, Diff Path Review August04/17/19 05:25: PT 30.9 H, INR 3.0 04/17/19 05:25: B-Natriuretic Peptide 107.9 H 04/17/19 06:42: POC Glucose 217 H 04/17/19 10:04: Specimen Type ART, Sample Site R Brachial, pH 7.20 L, Bicarbonate Actual 43.6 H, POC Total CO2 47, Base Excess 15 H, O2 Saturation 91 L, ABG pCO2 112.1 H*, ABG pO2 79, Gavin Test POS, O2 Delivery Device Nasal Can, Liter Flow 4.0, Blood Gas Notified Whom RN, Blood Gas Notified Time 1000 04/17/19 11:04: POC Glucose 205 H Current Medications Acetaminophen (Tylenol) 650 mg PO Q6H PRN PRN PRN Reason: Pain Score 1-3/Temp > 100.7 F Last Admin: 04/16/19 12:22 Dose: 650 mg Documented by: Al Hydroxide/Mg Hydroxide (Mylanta Ii) 30 ml PO Q6H PRN PRN PRN Reason: Gastric Burning Albuterol Sulfate (Ventolin Aerosols) 2.5 mg INHALATION Q2H PRN PRN PRN Reason: SOB/Wheezing Last Admin: 04/17/19 05:35 Dose: 2.5 mg Documented by: Amiodarone HCl (Cordarone) 200 mg PO BID [facility] Last Admin: 04/17/19 10:17 Dose: 200 mg Documented by: Atorvastatin Calcium (Lipitor) 20 mg PO QHS [facility] Last Admin: 04/16/19 22:04 Dose: 20 mg Documented by: Furosemide (Lasix) 40 mg IV Q8 [facility] Last Admin: 04/17/19 05:28 Dose: 40 mg Documented by: Glucagon () 1 mg IM .X1 PRN PRN Reason: Hypoglycemia Guaifenesin (Robitussin) 20 ml PO Q4H PRN PRN PRN Reason: COUGH Dextrose (Dextrose 10%-Water) 250 mls @ 999 mls/hr IV .Q16M PRN; Protocol PRN Reason: HYPOGLYCEMIA Insulin Human Lispro (Humalog Kwikpen (Bkc)) 0 unit SC ACHS [facility]; Protocol Last Admin: 04/17/19 11:18 Dose: Not Given Documented by: Magnesium Hydroxide (Milk Of Magnesia) 30 ml PO DAILY PRN PRN PRN Reason: Constipation Melatonin (Melatonin) 3 mg PO QHS PRN PRN PRN Reason: INSOMNIA Metoprolol Succinate (Toprol Xl (Beta Rakesh)) 100 mg PO DAILY [facility] Last Admin: 04/17/19 11:17 Dose: Not Given Documented by: Nitroglycerin (Nitrostat) 0.4 mg SUBLINGUAL Q5M PRN PRN Reason: CARDIAC/CHEST PAIN Ondansetron HCl (Zofran) 4 mg IV Q8H PRN PRN PRN Reason: NAUSEA/VOMITING Oxycodone HCl (Oxyir) 5 mg PO Q4H PRN PRN PRN Reason: Pain Score 4-5/10 Oxycodone HCl (Oxyir) 10 mg PO Q4H PRN PRN PRN Reason: Pain Score 6-10/10 Sodium Chloride () 10 - 40 ml IV UD PRN PRN Reason: SALINE FLUSH Last Admin: 04/16/19 14:38 Dose: 20 ml Documented by: Warfarin Sodium (Coumadin (Pbkc)) 2.5 mg PO TuWe@[id number] [facility] Warfarin Sodium (Coumadin (Pbkc)) 5 mg PO SuMoThFrSa@0 [facility] Last Admin: 04/16/19 22:03 Dose: 5 mg Documented by: Assessment/Plan All Active Problems (Last Reviewed 04/16/19 @ 11:18 by Regulo Figueroa MD) CHF (congestive heart failure) (Acute) MOUNA (acute kidney injury) (Acute) Acute respiratory failure (Resolved) Pneumonia, community acquired (Resolved) Sepsis (Resolved) Acute renal failure, chronic kidney disease stage III CHF Atrial fibrillation Patient tells me that his blood pressure usually runs low. Current blood pressure is around 109 or so. Baseline creatinine is around 1.3. Current creatinine is around 2.3. On review of records from [facility], he did not have significant proteinuria. We will check a renal ultrasound, urine analysis. With respect to fluid overload, he does have weight gain and significant lower extremity edema. However BNP is 100. This is not entirely consistent with congestive heart failure. BNP levels can be artificially low in morbidly obese patients. For now stop lisinopril, stop Aldactone ? Flu screen Thank you for the consult
--- NOTE | 2019-04-17 12:16 | US_ITS ---
STUDY: RENAL ULTRASOUND - COMPLETE REASON FOR EXAM: Male, 59 years old. Acute kidney injury TECHNIQUE: Ultrasound evaluation of the kidneys was performed with real-time and static dudley-scale imaging. COMPARISON: None. FINDINGS: RIGHT KIDNEY: Normal location of the right kidney, which is normal in size. The right kidney measures 12.5 x 7.4 x 5.9 cm. There is a normal cortex of the right kidney. The renal cortex measures 2 cm. There is no right renal mass or cyst. There are no right renal calculi. There is no right hydronephrosis. DISTAL RIGHT URETER: There is non-visualization of the distal right ureter. There is no demonstrated right ureterovesical junction calculus. There is a visualized right ureteral jet. LEFT KIDNEY: Normal location of the left kidney, which is normal in size. The left kidney measures 11.6 x 6.1 x 5.7 cm. There is a normal cortex of the left kidney. The renal cortex measures 2 cm. There is a cyst measuring 2.5 x 2.4 x 2.5 cm. There are no left renal calculi. There is no left hydronephrosis. DISTAL LEFT URETER: There is non-visualization of the distal left ureter. There is no demonstrated left ureterovesical junction calculus. There is a visualized left ureteral jet. . There are increased cortical echoes which may be consistent with nonspecific renal parenchymal disease. BLADDER: The distended urinary bladder has a volume of 14.2 ml. The empty urinary bladder has a volume of ml. There is a normal wall thickness of the distended urinary bladder. There is no demonstrated mass within the urinary bladder. There are no demonstrated bladder calculi. US/Kidney and Bladder IMPRESSION: Findings consistent with nonspecific renal parenchymal disease. No evidence for renal obstruction. Left renal cyst measuring 2.5 x 2.4 x 2.5 cm. Electronically Signed: Adonis Seals MD at 22:52 EST , Service support ,
--- NOTE | 2019-04-17 12:32 | PN_ITS ---
Patient Problems: Active and Suspected Problems (Last Reviewed 04/16/19 @ 11:18 by Regulo Figueroa MD) CHF (congestive heart failure) (Acute) MOUNA (acute kidney injury) (Acute) Reason for Visit: Patient seen and examined. I was called by patient's nurse early this morning to see patient urgently as he was very short of breath and this was worsening. He was admitted on 04/16/2019 with a complaint of shortness of breath. His past medical history includes congenital heart disease with previous surgery at 3 and 18 and also paroxysmal A. fib and heart failure preserved ejection fraction with EF of 50%. He recently drove to and from [place] over 3 days for a vacation and arrived a few days ago. He had noticed swelling in his lower extremities and denied any history of blood clots in his legs or lungs. He is on Coumadin and INR was therapeutic on admission. Chest x-ray done on admission was consistent with vascular congestion and he was admitted and managed for acute on chronic heart failure with preserved ejection fraction and started on diuresis. At time of review this morning, patient was short of breath and was quite agitated because he said the Barcenas catheter he had in place with very painful and he wanted it removed. He admitted to shortness of breath but denied any chest pain, palpitations, dizziness, diarrhea vomiting. He denied any palpitations. He admitted lower extremity swelling which he states is chronic but has worsened recently. He denied any chest pain. Vitals showed respiratory rate of 22 and pulse rate of 103 he was on 4 L of oxygen. Labs showed potassium of 5.2 and creatinine of 2.39. Creatinine was 1.6 on admission. Troponins x2 were negative and BNP on admission was 92.7. Cardiology had been consulted and requested repeat BNP. Initial CBC was 11.8 and a trended up to 13.1 this morning and hemoglobin had remained stable at around 12. After reviewing this patient this morning, start duplex of the lower extremities and stat VQ scan was ordered as well as stat ABG. Vitals/I&O's: Vital Signs Temp Pulse Resp BP Pulse Ox 97.8 F 103 H 22 H 107/80 95 04/17/19 11:00 04/17/19 11:17 04/17/19 11:00 04/17/19 11:00 04/17/19 11:00 Oxygen Flow Rate (L/min) 4 Oxygen Delivery Method Bi-pap Weight: 347 lb 14.231 oz Body Mass Index (BMI) 52.5 Intake and Output for Last 24 Hours 04/15/19 04/16/19 04/17/19 23:59 23:59 23:59 Intake Total 480 / 480 163 / 163 Output Total 350 / 350 Balance 480 / 480 -187 / -187 General: Alert, Oriented x3, Cooperative, - - agitated due to pain HEENT: Atraumatic, PERRLA, EOMI, Normocephalic Oral: Moist Mucosa Neck: Supple, No JVD, Negative Carotid Bruits Lungs: - - decreased breath sounds bibasally, no wheezes or crackles. on 4L of oxygen by nasal canula Cardiovascular: Regular Rhythm, Normal S1, Normal S2, No murmurs, Tachycardic Abdomen: Bowel Sounds Present, Soft, Non Tender, Non-Distended, No Hepato- splenomegaly, Obese Extremities: No clubbing, No cyanosis, Edema - bipedal 2+ pitting edema Skin: No rashes, No breakdown Musculoskeletal: No Tenderness to Palpation of Joints or Extremities Lymphatic: No Cervical, Supraclavicular, or Inguinal Adenopathy Neurological: Cranial nerves II-XII grossly intact, Neuro grossly intact, Motor Exam 5/5 strength throughout Psych/Mental Status: Agitated - due to pain from catheter, Alert and oriented to time, place, person, mood and affect Laboratory Results 04/16/19 11:55: Troponin I < 0.015 04/16/19 14:55: Troponin I < 0.015 04/16/19 17:00: POC Glucose 224 H 04/16/19 22:07: POC Glucose 265 H 04/17/19 05:25: Sodium 139, Potassium 5.2 H, Chloride 95 L, Carbon Dioxide 41.0 H, Anion Gap 3 L, BUN 38 H, Creatinine 2.39 H, Estim Creat Clear Calc 31.40, Est GFR (MDRD) Af Amer 36 L, Est GFR (MDRD) Non-Af 30 L, BUN/Creatinine Ratio 15.9, Glucose 247 H, Calcium 8.2 L, Magnesium 2.8 H 04/17/19 05:25: WBC 13.1 H, RBC 4.66, Hgb 12.7 L, Hct 44.6, MCV 95.7 H, MCH 27.3, MCHC 28.5 L, RDW Std Deviation 53.6 H, RDW Coeff of Janiya 15.3 H, Plt Count 263, MPV 9.1, Immature Gran % (Auto) 0.700, Neut % (Auto) 77.7 H, Lymph % (Auto) 8.4 L, Saline % (Auto) 12.0 H, Eos % (Auto) 0.9, Baso % (Auto) 0.3, Absolute Neuts (auto) 10.2 H, Absolute Lymphs (auto) 1.10, Nucleated RBC % 0.2, Differential Comment SCANNED, Diff Path Review August04/17/19 05:25: PT 30.9 H, INR 3.0 04/17/19 05:25: B-Natriuretic Peptide 107.9 H 04/17/19 06:42: POC Glucose 217 H 04/17/19 10:04: Specimen Type ART, Sample Site R Brachial, pH 7.20 L, Bicarbonate Actual 43.6 H, POC Total CO2 47, Base Excess 15 H, O2 Saturation 91 L, ABG pCO2 112.1 H*, ABG pO2 79, Gavin Test POS, O2 Delivery Device Nasal Can, Liter Flow 4.0, Blood Gas Notified Whom RN, Blood Gas Notified Time 1000 04/17/19 11:04: POC Glucose 205 H Diagnostic Data Chest X-Ray 04/17/19 05:40 IMPRESSION: Cardiomegaly with CHF and pulmonary edema. Small right pleural effusion. No definite change from previous study. Electronically Signed: Fer Dotson MD at 7:01 EST , Service support , Current Medications Acetaminophen (Tylenol) 650 mg PO Q6H PRN PRN PRN Reason: Pain Score 1-3/Temp > 100.7 F Last Admin: 04/16/19 12:22 Dose: 650 mg Documented by: Al Hydroxide/Mg Hydroxide (Mylanta Ii) 30 ml PO Q6H PRN PRN PRN Reason: Gastric Burning Albuterol Sulfate (Ventolin Aerosols) 2.5 mg INHALATION Q2H PRN PRN PRN Reason: SOB/Wheezing Last Admin: 04/17/19 05:35 Dose: 2.5 mg Documented by: Amiodarone HCl (Cordarone) 200 mg PO BID [facility] Last Admin: 04/17/19 10:17 Dose: 200 mg Documented by: Atorvastatin Calcium (Lipitor) 20 mg PO QHS [facility] Last Admin: 04/16/19 22:04 Dose: 20 mg Documented by: Furosemide (Lasix) 40 mg IV Q8 [facility] Last Admin: 04/17/19 05:28 Dose: 40 mg Documented by: Glucagon () 1 mg IM .X1 PRN PRN Reason: Hypoglycemia Guaifenesin (Robitussin) 20 ml PO Q4H PRN PRN PRN Reason: COUGH Dextrose (Dextrose 10%-Water) 250 mls @ 999 mls/hr IV .Q16M PRN; Protocol PRN Reason: HYPOGLYCEMIA Insulin Human Lispro (Humalog Kwikpen (Bkc)) 0 unit SC ACHS [facility]; Protocol Last Admin: 04/17/19 11:18 Dose: Not Given Documented by: Magnesium Hydroxide (Milk Of Magnesia) 30 ml PO DAILY PRN PRN PRN Reason: Constipation Melatonin (Melatonin) 3 mg PO QHS PRN PRN PRN Reason: INSOMNIA Metoprolol Succinate (Toprol Xl (Beta Rakesh)) 100 mg PO DAILY [facility] Last Admin: 04/17/19 11:17 Dose: Not Given Documented by: Nitroglycerin (Nitrostat) 0.4 mg SUBLINGUAL Q5M PRN PRN Reason: CARDIAC/CHEST PAIN Ondansetron HCl (Zofran) 4 mg IV Q8H PRN PRN PRN Reason: NAUSEA/VOMITING Oxycodone HCl (Oxyir) 5 mg PO Q4H PRN PRN PRN Reason: Pain Score 4-5/10 Oxycodone HCl (Oxyir) 10 mg PO Q4H PRN PRN PRN Reason: Pain Score 6-10/10 Sodium Chloride () 10 - 40 ml IV UD PRN PRN Reason: SALINE FLUSH Last Admin: 04/16/19 14:38 Dose: 20 ml Documented by: Warfarin Sodium (Coumadin (Pbkc)) 2.5 mg PO TuWe@2200 [facility] Warfarin Sodium (Coumadin (Pbkc)) 5 mg PO SuMoThFrSa@2200 [facility] Last Admin: 04/16/19 22:03 Dose: 5 mg Documented by: STROKE Vital Signs/Narrative: Vital Signs Temp Pulse Resp BP Pulse Ox 04/17/19 11:17 103 H 04/17/19 11:00 97.8 F 88 22 H 107/80 95 04/17/19 10:25 104 H 27 H 93 04/17/19 10:14 97.8 F 103 H 24 H 103/64 96 04/17/19 09:54 97.8 F 110 H 24 H 105/56 L 96 04/17/19 08:42 97.9 F 112 H 25 H 114/96 H 91 Medical Necessity - Tobacco Use Smoking Status: Former smoker Assessment/Plan All Active Problems (Last Reviewed 04/16/19 @ 11:18 by Regulo Figueroa MD) CHF (congestive heart failure) (Acute) MOUNA (acute kidney injury) (Acute) Acute respiratory failure (Resolved) Pneumonia, community acquired (Resolved) Sepsis (Resolved) 1. acute hypoxic and hypercapnic respiratory failure * likely due to Obesity hypoventilation syndrome * I am not very convinced patient has heart failure; He was diuresed overnight, but SOB has worsened, BNP was 92 on admission and on repeat this morning was 107. * Stat ABG done this morning showed pH of 7.2 with PCO2 of 112.1 and bicarb of 43.6. Bicarb per BNP is 41 showing likely chronic compensation. * Urgent pulmonology consult placed on account of elevated CO2. Stat chest CT without contrast and VQ scan ordered. * Titrate oxygen to maintain saturation above 90%. BiPAP stat ordered. * Lasix on hold for now due to metabolic alkalosis and worsening MOUNA. * Duplex of the lower extremities was negative for any PE. * 2. MOUNA on CKD: * Creatinine is 2.39 today. * Was 1.6 on admission. * Baseline is around 1.3, per Review of patient's PCP records by perl developer * Nephrology consulted. Lasix held on account of bicarb of 41 which is likely compensatory for respiratory acidosis. * Management as per nephrology. * Renal ultrasound. * 3. Respiratory acidosis with compensatory metabolic alkalosis: * CO2 is 112 and bicarb is 41. * Pulmonology consulted. * Currently on BiPAP. * Will monitor PCO2 for improvement. * 4. Hyperkalemia: K is 5.2. Will give kayexalate and monitor 5. Hypertension * Fairly controlled. * Lisinopril and spironolactone as well as torsemide on hold. On metoprolol. 6. Type 2 diabetes mellitus: Metformin on hold on account of MOUNA. Insulin sliding scale. Accu-Cheks AC at bedtime. 7. Hyperlipidemia: On statin. 8. History of severe pulmonary hypertension: Titrate oxygen 3 L saturating above 92%. 9. A. fib: * Status post ablation x3. * Rate controlled. * Started on amiodarone by cardiology today. * Also on metoprolol. * On Coumadin as well. * INR is therapeutic. 10. Heart failure with preserved ejection fraction: * I am not convinced patient is in exacerbation. * 2D echo in October 2018 showed EF of 50%. * cardiology on board. * 11. Super morbid obesity: BMI is 52.5. This complicates management, expected recovery and prognosis. 12. LASHAWN: Did not tolerate CPAP at home. Currently on BiPAP. Pulmonology on board. 13. History of congenital heart disease: * Status post VSD repair at age 18 and PDA repair at age 3. * Stable. * DVT: On Coumadin. INR therapeutic Code status: full code Code Visit Inpatient E&M: 29089 Subs Hosp L3
[2019-04-17 12:37] LABS: Pathologist Review Reviewed
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
[2019-04-17 14:40] LABS: Allen Test POS; Base Excess 17 mmol/L (-2 to +2); Blood Gas Specimen Type ART; EPAP 9; FI02 35; IPAP 18; PO2 73 mmHG (75-100); RR 12; SITE R Brachial; SO2 90 % (95-99); Time Given 1427; Total Carbon Dioxide 47 mmol/L; pCO2 99.3 mmHg (35-45); pH 7.25 (7.35-7.45)
--- NOTE | 2019-04-17 16:15 | CPS ---
Critical results sent to Dr Serrano via [employer] text. Dr Soria saw results, keep pt on BIPAP @this time
--- NOTE | 2019-04-17 16:17 | CPS ---
Critical value ABG results told to Dr Serrano via telephone, started pt on BIPAP @this time.
[2019-04-17 16:41] LABS: Bedside Glucose 189 mg/dL (70-110)
--- NOTE | 2019-04-17 19:23 | NURSING ---
Pt refusing straight cath. Dr. Serrano notified by this RN.
--- NOTE | 2019-04-17 21:05 | NURSING ---
Pt. refusing to be straight cathed. Numerous times he refused.Informed pt. that he needs to measure any urine.
[2019-04-17] MEDS: Atorvastatin Calcium 20 MG Tablet PO (21:17)
[2019-04-17] MEDS: 0.9% Saline Lock 10 ML Syringe IV (21:26)
[2019-04-17 21:31] LABS: Bedside Glucose 210 mg/dL (70-110)
[2019-04-18] VITALS (53 sets, daily range): BP systolic 77–147; BP diastolic 34–104; PULSE 65–148; RESP 12–31; TEMP 36.1–36.9; O2SAT 91–99
[2019-04-18 00:25] LABS: Bacteria 0 SEEN /hpf (None Seen); Mucous, Urine 0 SEEN /hpf (<or=2+); Squamous Epithelial Cells - UA 0 SEEN /hpf (0-5); White Blood Cells 0 SEEN /hpf (0-5)
[2019-04-18 00:42] LABS: Color, Urine Brown (Yellow); Glucose, Dipstick Normal (Normal); Ketone-Dipstick 5 mg/dl (Negative); Leukocyte Esterase-Dipstick Negative /ul (Negative); Nitrite-Dipstick Negative (Negative); Occult Blood-Urine 150 /ul (Negative); Protein-Dipstick 500 mg/dl (Negative); Urine Bilirubin Dipstick Negative (Negative); Urine Clarity Turbid (Clear); Urine Urobilinogen Normal (Normal); Urine pH 6.5 (5.0 - 8.0)
[2019-04-18 00:59] LABS: Amorphous Sediment 3+; Red Blood Cells-Urine > 100 SEEN /hpf (0-5)
--- NOTE | 2019-04-18 04:33 | NURSING ---
Pt. in Vtach [employer] called. HR 148
--- NOTE | 2019-04-18 04:37 | EKG12_ITS ---
Test Reason : V TACH Blood Pressure : / mmHG Vent. Rate : 069 BPM Atrial Rate : 069 BPM P-R Int : 176 ms QRS Dur : 116 ms QT Int : 398 ms P-R-T Axes : 026 118 079 degrees QTc Int : 426 ms Sinus rhythm with Premature atrial complexes Low voltage QRS Right bundle branch block Abnormal ECG Confirmed by IDRIS HAMLIN, ADAL ([id number]), deputy editor in chief SUSANA EATON ([id number]) on 04/19/2019 11:46:10 AM Referred By: Regulo Figueroa Confirmed By:ADAL STEINBERG MD
--- NOTE | 2019-04-18 04:38 | EKG12_ITS ---
Test Reason : DYSRHYTHMIA Blood Pressure : / mmHG Vent. Rate : 148 BPM Atrial Rate : 019 BPM P-R Int : 000 ms QRS Dur : 160 ms QT Int : 370 ms P-R-T Axes : 000 002 174 degrees QTc Int : 580 ms Wide QRS tachycardia Non-specific intra-ventricular conduction block Abnormal ECG Confirmed by IDRIS HAMLIN, ADAL ([id number]), acquisitions editor SUSANA EATON ([id number]) on 04/19/2019 1:02:10 PM Referred By: Regulo Figueroa Confirmed By:ADAL STEINBERG MD
[2019-04-18 04:46] LABS: Bedside Glucose 275 mg/dL (70-110)
[2019-04-18] MEDS: 0.9% Saline Lock 10 ML Syringe IV ×3 (05:34→22:14)
[2019-04-18 06:29] LABS: Absolute Lymphocyte Count 0.38 X10^3/uL (0.83-4.51); Basophil# 0.02 X10^3/uL; Basophil% 0.2 % (0-1); Hematocrit 40.6 % (40-54); Hemoglobin 11.5 g/dL (13.0-16.5); Lymphocyte # 0.38 X10^3/ul (4.0); Mean Corp Hgb Conc 28.3 g/dL (32-36); Mean Corpuscular Hgb 26.6 pg (27.0-32.0); Mean Platelet Vol. 8.9 fl (6.2-12.0); Monocyte# 0.35 X10^3/uL; Monocyte% 2.7 % (0-10); NRBC Flagged by Analyzer 0 % (0-5); Neutrophil # 11.96 X10^3/uL (2.7-7.7); Neutrophil % 93.6 % (47-70); POSITIVE DIFFERENTIAL YES; Platelet Count 237 K/mm3 (150-450); RBC Distribution Width CV 15.3 % (11.6-14.6); RBC Distribution Width SD 53.1 fl (35.1-43.9); Red Blood Count 4.32 M/mm3 (4.6-6.2); White Blood Count 12.8 K/mm3 (4.4-11.0)
[2019-04-18 06:33] LABS: International Normalized Ratio 3.4; Prothrombin Time (Protime)PT. 34.4 SECONDS (11.7-14.9)
[2019-04-18] MEDS: Adenosine 6 MG/2 ML Syringe IV (06:42)
[2019-04-18] MEDS: Adenosine 6 MG/2 ML Syringe 12 MG IV (06:44)
[2019-04-18 06:50] LABS: Anion Gap 3 (5-15); BUN 58 mg/dL (7-18); BUN/Creat Ratio 17.6 RATIO (10-20); Calcium,Total 8.8 mg/dL (8.5-10.1); Chloride 94 mmol/L (98-107); EST Glomerular Filtration Rate 20 mL/min (>60); Est Glom Filt Rate - Afr Amer 25 mL/min (>60); Estimated Creatinine Clearance 22.74 ml/min; Glucose 302 mg/dL (74-106); Potassium 5.9 mmol/L (3.5-5.1); Sodium Level 134 mmol/L (136-145)
[2019-04-18 06:51] LABS: Differential Indicated SCAN CRITERIA MET
--- NOTE | 2019-04-18 06:52 | EKG12_ITS ---
Test Reason : TACHY Blood Pressure : / mmHG Vent. Rate : 141 BPM Atrial Rate : 141 BPM P-R Int : 200 ms QRS Dur : 146 ms QT Int : 358 ms P-R-T Axes : 000 -02 177 degrees QTc Int : 548 ms Probably SVT with aberrancy Non-specific intra-ventricular conduction block Abnormal ECG When compared with ECG of 20-APR-2019 05:09, MANUAL COMPARISON REQUIRED, DATA IS UNCONFIRMED Confirmed by FELIBERTO HAMLIN, ELAINA ([id number]), food expeditor MARINA BEE ([id number]) on 04/21/2019 1:19:54 PM Referred By: Regulo Figueroa Confirmed By:SE DAO MD
[2019-04-18 07:00] LABS: Bedside Glucose 264 mg/dL (70-110)
[2019-04-18 07:03] LABS: Differential Comment SCANNED
[2019-04-18 07:07] LABS: Magnesium 2.8 mg/dL (1.6-2.6); Phosphorus 6.7 mg/dL (2.5-4.9)
[2019-04-18] MEDS: Sodium Polystyrene Sulfonate 15 GM/60 ML UDC 30 GM PO (08:32)
[2019-04-18] MEDS: Acetaminophen 325 MG Tablet 650 MG PO (08:32)
--- NOTE | 2019-04-18 08:32 | PN.CARD_ITS ---
Subjectve: Events of this morning noted. Patient apparently went into a wide complex tachycardia with a rate of approximately 145 bpm which was relatively stable. I was called and instructed them to give adenosine and subsequently amiodarone. Patient converted back to sinus rhythm. He apparently had his BiPAP mask off for most of the night Objective: Vital Signs Temp Pulse Resp BP Pulse Ox 97 F L 72 23 H 102/54 L 93 04/18/19 08:00 04/18/19 08:00 04/18/19 08:20 04/18/19 08:15 04/18/19 08:00 Oxygen Flow Rate (L/min) 3 Oxygen Delivery Method Bi-pap Weight: 351 lb 6.669 oz Body Mass Index (BMI) 52.5 Intake and Output for Last 24 Hours 04/16/19 04/17/19 04/18/19 23:59 23:59 23:59 Intake Total 480 / 480 1023 / 1023 263.53 / 263.53 Output Total 475 / 475 Balance 480 / 480 548 / 548 263.53 / 263.53 General: Awake, Alert, Oriented x 3 HEENT: PERRL, EOMI, Sclera Non Icteric Neck: Supple, Good ROM, No Lymph Node Enlargement Lungs: Clear to auscultation Cardiovascular: Regular Rhythm, Normal S1, Normal S2, No Murmurs, No Rubs, No Gallops Vascular: No Carotid Bruits, Normal Femoral Pulses, Normal Radial Pulses, Normal Dorsalis Pedal Pulse, Normal Posterior Tibial Pulses Abdomen: Bowel Sounds Present, Soft, Non Tender, No HSM, No Organomegaly Extremities: No Cyanosis, No Clubbing, No edema Musculoskeletal: No Erythema Skin: No Rashes Lymphatic: No Lymph Node Enlargement Neurological: No Focal Motor or Sensory Deficit Psych/Mental Status: Appropriate 04/17/19 10:04: pH 7.20 L, Bicarbonate Actual 43.6 H, POC Total CO2 47, Base Excess 15 H, O2 Saturation 91 L, ABG pCO2 112.1 H*, ABG pO2 79, Gavin Test POS 04/17/19 14:28: pH 7.25 L, Bicarbonate Actual 44.0 H, POC Total CO2 47, Base Excess 17 H, O2 Saturation 90 L, ABG pCO2 99.3 H*, ABG pO2 73 L, Gavin Test POS 04/17/19 18:20: Urine Color Brown, Urine Clarity Turbid, Urine pH 6.5, Ur Specific [place] 1.020, Urine Protein 500 H, Urine Glucose (UA) Normal, Urine Ketones 5 H, Urine Occult Blood 150 H, Urine Nitrite Negative, Urine Bilirubin Negative, Urine Urobilinogen Normal, Ur Leukocyte Esterase Negative, Urine RBC > 100 SEEN, Urine WBC 0 SEEN 04/18/19 06:10: WBC 12.8 H, RBC 4.32 L, Hgb 11.5 L, Hct 40.6, MCV 94.0, MCH 26.6 L, MCHC 28.3 L, Plt Count 237, MPV 8.9, Immature Gran % (Auto) 0.500, Neut % (Auto) 93.6 H, Lymph % (Auto) 3.0 L, [place] % (Auto) 2.7, Eos % (Auto) 0.0, Baso % (Auto) 0.2, Absolute Neuts (auto) 12.0 H, Nucleated RBC % 0 04/18/19 06:10: PT 34.4 H, INR 3.4 04/18/19 06:10: Sodium 134 L, Potassium 5.9 H, Chloride 94 L, Carbon Dioxide 37.0 H, Anion Gap 3 L, BUN 58 H, Creatinine 3.30 H, Est GFR (MDRD) Af Amer 25 L, Est GFR (MDRD) Non-Af 20 L, BUN/Creatinine Ratio 17.6, Glucose 302 H, Calcium 8.8 04/18/19 06:10: Phosphorus 6.7 H, Magnesium 2.8 H Rhythm: EKG: ECHO: Stress Test: Cardiac Cath: PCI: CT Surgery: Holter monitor: EPS: PPM: CXR: Chest CT Scan: Medical Necessity - Tobacco Use Smoking Status: Former smoker Assessment/Plan 1. Shortness of breath * The etiology of the above is unlikely to be primary cardiac in etiology. His natruretic peptide level was normal, his echocardiogram demonstrated preserved ejection fraction. He may have a problem with obesity hypoventilation syndrome. With consequence hypercapnia. * Will hold off on further diuresis * 2. Supraventricular tachycardia and atrial fibrillation * Patient is anticoagulated for the above * He is also on a beta-jackson. He is status post failed ablation. I would recommend that we start him on amiodarone short-term to see whether this would be able to control his heart rate. Depending on the findings further recommendations will be made. * He did have an episode of a wide complex tachycardia which was likely a supraventricular tachycardia with aberrancy. He briefly responded to adenosine but responded to high-dose adenosine combined with intravenous amiodarone. Would prefer to load him with the above and start p.o. amiodarone tomorrow morning. 3. Hypertension * Good control on the current medical therapy. No major changes will be made at this time. * * * Thank you for allowing me to participate in the care of your patient. Please don't hesitate to call if any issues arise
[2019-04-18] MEDS: 0.9% Normal Saline 1,000 ML 999 ML IV (10:16)
[2019-04-18] MEDS: Insulin Lispro 100 UNIT/ML INSULN.PEN SC ×3 (10:25→22:11)
[2019-04-18 10:30] LABS: Bedside Glucose 289 mg/dL (70-110)
[2019-04-18] MEDS: Phytonadione (Vit K1) 5 MG TABLET PO (10:56)
--- NOTE | 2019-04-18 11:53 | NURSING ---
First bag of amio completed prior to charting 1100 vitals. 1100 vitals charted under Vital Signs, Routine.
--- NOTE | 2019-04-18 12:54 | PN_ITS ---
Patient Problems: Active and Suspected Problems (Last Reviewed 04/16/19 @ 11:18 by Regulo Figueroa MD) CHF (congestive heart failure) (Acute) MOUNA (acute kidney injury) (Acute) Subjective: Patient seen and examined. Patient was noted to be pulseless on bloody urine yesterday night. He still refused placement of Barcenas catheter. When asked this morning, he says he does not know what color his urine is but knows that he is passing urine. He still complains of feeling short of breath and was on BiPAP. He denies any chest pain or palpitations, dizziness, diarrhea or vomiting. Review of systems otherwise negative. Labs and vitals reviewed. Of note, a rapid response was called this morning as patient went into V. tach. He was started on amiodarone drip by cardiology. Potassium noted to be 5.9 today and creatinine has trended up to 3.3 today. WBC is 12.8 and hemoglobin is 11.5. Vitals/I&O's: Vital Signs Temp Pulse Resp BP Pulse Ox 97.1 F L 69 20 H 101/44 L 94 04/18/19 12:28 04/18/19 12:28 04/18/19 12:28 04/18/19 12:28 04/18/19 12:28 Oxygen Flow Rate (L/min) 3 Oxygen Delivery Method Nasal Cannula Weight: 351 lb 6.669 oz Body Mass Index (BMI) 52.5 Intake and Output for Last 24 Hours 04/16/19 04/17/19 04/18/19 23:59 23:59 23:59 Intake Total 480 / 480 1023 / 1023 2119.00 / 2119. Output Total 475 / 475 150 / 150 Balance 480 / 480 548 / 548 / General: Alert, Oriented x3, Cooperative HEENT: Atraumatic, PERRLA, EOMI, Normocephalic Oral: Moist Mucosa Neck: Supple, No JVD, Negative Carotid Bruits Lungs: - - decreased breath sounds bibasally, no wheezes or crackles. on 4L of oxygen by nasal canula Cardiovascular: Regular Rhythm, Normal S1, Normal S2, No murmurs, Tachycardic Abdomen: Bowel Sounds Present, Soft, Non Tender, Non-Distended, No Hepato- splenomegaly, Obese Extremities: No clubbing, No cyanosis, Edema - bipedal 2+ pitting edema Skin: No rashes, No breakdown Musculoskeletal: No Tenderness to Palpation of Joints or Extremities Lymphatic: No Cervical, Supraclavicular, or Inguinal Adenopathy Neurological: Cranial nerves II-XII grossly intact, Neuro grossly intact, Motor Exam 5/5 strength throughout Psych/Mental Status: Agitated - due to pain from catheter, Alert and oriented to time, place, person, mood and affect Microbiology Past 72 Hours 04/17/19 14:19 Mucosa - Nose Influenza Types A,B Direct FA (JL) - Final Laboratory Results 04/17/19 14:28: Specimen Type ART, Sample Site R Brachial, pH 7.25 L, Bicarbonate Actual 44.0 H, POC Total CO2 47, Base Excess 17 H, O2 Saturation 90 L, O2 % 35, ABG pCO2 99.3 H*, ABG pO2 73 L, Gavin Test POS, Respiration Rate 12, O2 Delivery Device Bi / C PAP, EPAP 9, IPAP 18, Blood Gas Notified Whom [facility] , Blood Gas Notified Time 1427 04/17/19 16:33: POC Glucose 189 H 04/17/19 18:20: Urine Color Brown, Urine Clarity Turbid, Urine pH 6.5, Ur Specific [place] 1.020, Urine Protein 500 H, Urine Glucose (UA) Normal, Urine Ketones 5 H, Urine Occult Blood 150 H, Urine Nitrite Negative, Urine Bilirubin Negative, Urine Urobilinogen Normal, Ur Leukocyte Esterase Negative, Urine RBC > 100 SEEN, Urine WBC 0 SEEN, Ur Squamous Epith Cells 0 SEEN, Amorphous Sediment 3+, Urine Bacteria 0 SEEN, Urine Mucus 0 SEEN 04/17/19 21:25: POC Glucose 210 H 04/18/19 04:33: POC Glucose 275 H 04/18/19 06:10: WBC 12.8 H, RBC 4.32 L, Hgb 11.5 L, Hct 40.6, MCV 94.0, MCH 26.6 L, MCHC 28.3 L, RDW Std Deviation 53.1 H, RDW Coeff of Janiya 15.3 H, Plt Count 237, MPV 8.9, Immature Gran % (Auto) 0.500, Neut % (Auto) 93.6 H, Lymph % (Auto) 3.0 L, [place] % (Auto) 2.7, Eos % (Auto) 0.0, Baso % (Auto) 0.2, Absolute Neuts (auto) 12.0 H, Absolute Lymphs (auto) 0.38 L, Nucleated RBC % 0, Differential Comment SCANNED 04/18/19 06:10: PT 34.4 H, INR 3.4 04/18/19 06:10: Sodium 134 L, Potassium 5.9 H, Chloride 94 L, Carbon Dioxide 37.0 H, Anion Gap 3 L, BUN 58 H, Creatinine 3.30 H, Estim Creat Clear Calc 22.74, Est GFR (MDRD) Af Amer 25 L, Est GFR (MDRD) Non-Af 20 L, BUN/Creatinine Ratio 17.6, Glucose 302 H, Calcium 8.8 04/18/19 06:10: Phosphorus 6.7 H, Magnesium 2.8 H 04/18/19 06:30: POC Glucose 264 H 04/18/19 09:20: Blood Type A POSITIVE 04/18/19 10:22: POC Glucose 289 H Current Medications Acetaminophen (Tylenol) 650 mg PO Q6H PRN PRN PRN Reason: Pain Score 1-3/Temp > 100.7 F Last Admin: 04/18/19 08:32 Dose: 650 mg Documented by: Al Hydroxide/Mg Hydroxide (Mylanta Ii) 30 ml PO Q6H PRN PRN PRN Reason: Gastric Burning Albuterol Sulfate (Ventolin Aerosols) 2.5 mg INHALATION Q2H PRN PRN PRN Reason: SOB/Wheezing Last Admin: 04/17/19 05:35 Dose: 2.5 mg Documented by: Albuterol/Ipratropium (Duoneb) 3 ml INHALATION Q6H.RT PRN PRN Reason: SOB &/OR WHEEZING Atorvastatin Calcium (Lipitor) 20 mg PO QHS DANIEL Last Admin: 04/17/19 21:17 Dose: 20 mg Documented by: Glucagon () 1 mg IM .X1 PRN PRN Reason: Hypoglycemia Guaifenesin (Robitussin) 20 ml PO Q4H PRN PRN PRN Reason: COUGH Dextrose (Dextrose 10%-Water) 250 mls @ 999 mls/hr IV .Q16M PRN; Protocol PRN Reason: HYPOGLYCEMIA Insulin Human Lispro (Humalog Kwceciliapen (Bkc)) 0 unit SC ACHS [facility]; Protocol Last Admin: 04/18/19 10:25 Dose: 6 units Documented by: Magnesium Hydroxide (Milk Of Magnesia) 30 ml PO DAILY PRN PRN PRN Reason: Constipation Melatonin (Melatonin) 3 mg PO QHS PRN PRN PRN Reason: INSOMNIA Methylprednisolone (Solu-Medrol) 40 mg IV Q8 [facility] Last Admin: 04/18/19 05:20 Dose: Not Given Documented by: Metoprolol Succinate (Toprol Xl (Beta Rakesh)) 100 mg PO DAILY [facility] Last Admin: 04/18/19 10:09 Dose: Not Given Documented by: Nitroglycerin (Nitrostat) 0.4 mg SUBLINGUAL Q5M PRN PRN Reason: CARDIAC/CHEST PAIN Ondansetron HCl (Zofran) 4 mg IV Q8H PRN PRN PRN Reason: NAUSEA/VOMITING Oxycodone HCl (Oxyir) 5 mg PO Q4H PRN PRN PRN Reason: Pain Score 4-5/10 Oxycodone HCl (Oxyir) 10 mg PO Q4H PRN PRN PRN Reason: Pain Score 6-10/10 Sodium Chloride () 10 - 40 ml IV UD PRN PRN Reason: SALINE FLUSH Last Admin: 04/18/19 06:57 Dose: 30 ml Documented by: Warfarin Sodium (Coumadin (Pbkc)) 2.5 mg PO TuWe@2200 [facility] Warfarin Sodium (Coumadin (Pbkc)) 5 mg PO SuMoThFrSa@2200 [facility] Last Admin: 04/17/19 21:17 Dose: 5 mg Documented by: STROKE Vital Signs/Narrative: Vital Signs Temp Pulse Resp BP BP Pulse Ox 04/18/19 12:28 97.1 F L 69 20 H 101/44 L 94 04/18/19 12:13 97.2 F L 75 19 H 117/98 H 93 04/18/19 11:10 94 04/18/19 11:05 67 04/18/19 11:00 97.8 F 69 22 H 96/48 L 96/48 L 94 04/18/19 10:00 69 22 H 88/50 L 92 04/18/19 09:00 97.5 F L 70 18 84/34 L 94 Medical Necessity - Tobacco Use Smoking Status: Former smoker Assessment/Plan All Active Problems (Last Reviewed 04/16/19 @ 11:18 by Regulo Figueroa MD) CHF (congestive heart failure) (Acute) MOUNA (acute kidney injury) (Acute) Acute respiratory failure (Resolved) Pneumonia, community acquired (Resolved) Sepsis (Resolved) 1. acute hypoxic and hypercapnic respiratory failure * likely due to Obesity hypoventilation syndrome * Patient still remains on BiPAP. Lasix was held on account of metabolic alkalosis and worsening MOUNA. * Continue BiPAP * Duplex was negative for any PE. * Pulmonology on board. VQ scan showed very low probability for PE. * 2. MOUNA on CKD with hyperkalemia * Creatinine has trended up to To 3.3 today with potassium being 5.9. * likely due to overdiuresis * nephrology on board- discussed with patient that he may need hemodialysis down the line if kidney function worsens and hyperkalemia doesnt improve * renal USG showed nonspecific renal parenchymal disease with no evidence of renal obstruction and a left renal cyst. * continue holding lasix * give kayexalate for hyperkalemia * will give vitamin K and 2 units of FFPs to reverse INR of 3.4, as patient may need placement of dialysis line today. * 3. Respiratory acidosis with compensatory metabolic alkalosis: * bicarb is down to 37 today * on BIPAP * pulmonology on board * 4. Nonsustained Vtach * Rapid response was called this morning on account of nonsustained V. tach. He was started on amiodarone drip by cardiology after he was given adenosine. * He converted to sinus rhythm after receiving adenosine. * continue amiodarone drip * cardiology on board * 5. Hypertension * had episodes of hypotension this morning.; likely due to Vtach he had this morning * BP meds on hold (lisinopril, spironolactone and torsemide) * On metoprolol. 6. Type 2 diabetes mellitus: Metformin on hold on account of MOUNA. Insulin sliding scale. Accu-Cheks AC at bedtime. 7. Hyperlipidemia: On statin. 8. History of severe pulmonary hypertension: currently on BIPAP. to follow up with pulmonology and cardiology after discharge 9. A. fib: * Status post ablation x3. * Rate controlled. * now on amiodarone drip o/a of nonsustained Vtach * Also on metoprolol. * On Coumadin as well. * INR is 3.4 today 10. Heart failure with preserved ejection fraction: * not in exacerbation * 2D echo in October 2018 showed EF of 50%. * cardiology on board. * 11. Super morbid obesity: BMI is 52.5. This complicates management, expected recovery and prognosis. 12. LASHAWN: Currently on BiPAP. Pulmonology on board. 13. History of congenital heart disease: * Status post VSD repair at age 18 and PDA repair at age 3. * Stable. * DVT: On Coumadin. INR therapeutic Code status: full code Code Visit Inpatient E&M: 11932 Subs Hosp L3
[2019-04-18 15:14] LABS: Anion Gap 2 (5-15); BUN 63 mg/dL (7-18); BUN/Creat Ratio 17.3 RATIO (10-20); Calcium,Total 8.4 mg/dL (8.5-10.1); Chloride 94 mmol/L (98-107); Creatinine, Serum 3.64 mg/dL (0.70-1.30); EST Glomerular Filtration Rate 18 mL/min (>60); Est Glom Filt Rate - Afr Amer 22 mL/min (>60); Estimated Creatinine Clearance 20.62 ml/min; Glucose 314 mg/dL (74-106); Potassium 5.5 mmol/L (3.5-5.1); Sodium Level 133 mmol/L (136-145)
--- NOTE | 2019-04-18 15:14 | PCM.PN.PUL ---
Patient Problems: Active and Suspected Problems (Last Reviewed 04/16/19 @ 11:18 by Regulo Figueroa MD) CHF (congestive heart failure) (Acute) MOUNA (acute kidney injury) (Acute) Subjective: Patient did okay from a respiratory standpoint overnight. Patient did come off of BiPAP overnight and had A. fib with aberrancy versus V. tach requiring adenosine and amiodarone. Patient had achieved A. fib with controlled rate by time my evaluation was completed. Patient's blood sugars have been slightly elevated, but blood pressures are acceptable. No fever has been noted. - Physical Exam Vitals/I&O's: Vital Signs Temp Pulse Resp BP Pulse Ox 36.1 C L 66 21 H 123/54 H 96 04/18/19 14:58 04/18/19 14:58 04/18/19 14:58 04/18/19 14:58 04/18/19 14:58 Oxygen Flow Rate (L/min) 3 Oxygen Delivery Method Bi-pap Weight: 159.4 kg Body Mass Index (BMI) 52.5 Intake and Output for Last 24 Hours 04/16/19 04/17/19 04/18/19 23:59 23:59 23:59 Intake Total 480 / 480 1023 / 1023 2366.20 / 2366.20 Output Total 475 / 475 150 / 150 Balance 480 / 480 548 / 548 2216.20 / 2216.20 General: Alert, Oriented x3, Cooperative, No apparent distress, - - Good BiPAP synchrony. Morbidly obese. HEENT: Atraumatic, PERRLA, EOMI, Normocephalic, - - Slight scleral injection Oral: Moist Mucosa, No Gingival or Mucosal Lesions/ Ulcerations Neck: Supple, No JVD, No Nodes, Trachea Midline Lungs: No rhonchi, No rales, Diminished - Better air exchange than yesterday, Wheezes, - - Symmetric expansion. Cardiovascular: Normal S1, Normal S2, No murmurs, Irregular Rate, No rub noted, No Gallop Abdomen: Bowel Sounds Present, Soft, Non Tender, Non-Distended, Obese Extremities: No clubbing, No cyanosis, Capillary Refill Less than 3 Seconds, Edema Skin: No rashes, No breakdown Musculoskeletal: No Tenderness to Palpation of Joints or Extremities Lymphatic: No Cervical, Supraclavicular, or Inguinal Adenopathy Neurological: Cranial nerves II-XII grossly intact, Neuro grossly intact, Motor Exam 5/5 strength throughout Psych/Mental Status: Alert and oriented to time, place, person, mood and affect Microbiology Past 72 Hours 04/17/19 14:19 Mucosa - Nose Influenza Types A,B Direct FA (JL) - Final Laboratory Results 04/17/19 16:33: POC Glucose 189 H 04/17/19 18:20: Urine Color Brown, Urine Clarity Turbid, Urine pH 6.5, Ur Specific [place] 1.020, Urine Protein 500 H, Urine Glucose (UA) Normal, Urine Ketones 5 H, Urine Occult Blood 150 H, Urine Nitrite Negative, Urine Bilirubin Negative, Urine Urobilinogen Normal, Ur Leukocyte Esterase Negative, Urine RBC > 100 SEEN, Urine WBC 0 SEEN, Ur Squamous Epith Cells 0 SEEN, Amorphous Sediment 3+, Urine Bacteria 0 SEEN, Urine Mucus 0 SEEN 04/17/19 21:25: POC Glucose 210 H 04/18/19 04:33: POC Glucose 275 H 04/18/19 06:10: WBC 12.8 H, RBC 4.32 L, Hgb 11.5 L, Hct 40.6, MCV 94.0, MCH 26.6 L, MCHC 28.3 L, RDW Std Deviation 53.1 H, RDW Coeff of Janiya 15.3 H, Plt Count 237, MPV 8.9, Immature Gran % (Auto) 0.500, Neut % (Auto) 93.6 H, Lymph % (Auto) 3.0 L, [place] % (Auto) 2.7, Eos % (Auto) 0.0, Baso % (Auto) 0.2, Absolute Neuts (auto) 12.0 H, Absolute Lymphs (auto) 0.38 L, Nucleated RBC % 0, Differential Comment SCANNED 04/18/19 06:10: PT 34.4 H, INR 3.4 04/18/19 06:10: Sodium 134 L, Potassium 5.9 H, Chloride 94 L, Carbon Dioxide 37.0 H, Anion Gap 3 L, BUN 58 H, Creatinine 3.30 H, Estim Creat Clear Calc 22.74, Est GFR (MDRD) Af Amer 25 L, Est GFR (MDRD) Non-Af 20 L, BUN/Creatinine Ratio 17.6, Glucose 302 H, Calcium 8.8 04/18/19 06:10: Phosphorus 6.7 H, Magnesium 2.8 H 04/18/19 06:30: POC Glucose 264 H 04/18/19 09:20: Blood Type A POSITIVE 04/18/19 10:22: POC Glucose 289 H 04/18/19 14:55: Sodium Pending, Potassium Pending, Chloride Pending, Carbon Dioxide Pending, Anion Gap Pending, BUN Pending, Creatinine Pending, Est GFR (MDRD) Af Amer Pending, Est GFR (MDRD) Non-Af Pending, BUN/Creatinine Ratio Pending, Glucose Pending, Calcium Pending Current Medications Acetaminophen (Tylenol) 650 mg PO Q6H PRN PRN PRN Reason: Pain Score 1-3/Temp > 100.7 F Last Admin: 04/18/19 08:32 Dose: 650 mg Documented by: Al Hydroxide/Mg Hydroxide (Mylanta Ii) 30 ml PO Q6H PRN PRN PRN Reason: Gastric Burning Albuterol Sulfate (Ventolin Aerosols) 2.5 mg INHALATION Q2H PRN PRN PRN Reason: SOB/Wheezing Last Admin: 04/17/19 05:35 Dose: 2.5 mg Documented by: Albuterol/Ipratropium (Duoneb) 3 ml INHALATION Q6H.RT PRN PRN Reason: SOB &/OR WHEEZING Atorvastatin Calcium (Lipitor) 20 mg PO QHS [facility] Last Admin: 04/17/19 21:17 Dose: 20 mg Documented by: Glucagon () 1 mg IM .X1 PRN PRN Reason: Hypoglycemia Guaifenesin (Robitussin) 20 ml PO Q4H PRN PRN PRN Reason: COUGH Dextrose (Dextrose 10%-Water) 250 mls @ 999 mls/hr IV .Q16M PRN; Protocol PRN Reason: HYPOGLYCEMIA Insulin Human Lispro (Humalog Kwikpen (Bkc)) 0 unit SC [facility]; Protocol Last Admin: 04/18/19 10:25 Dose: 6 units Documented by: Magnesium Hydroxide (Milk Of Magnesia) 30 ml PO DAILY PRN PRN PRN Reason: Constipation Melatonin (Melatonin) 3 mg PO QHS PRN PRN PRN Reason: INSOMNIA Methylprednisolone (Solu-Medrol) 40 mg IV Q8 [facility] Last Admin: 04/18/19 13:32 Dose: 40 mg Documented by: Metoprolol Succinate (Toprol Xl (Beta Rakesh)) 100 mg PO DAILY [facility] Last Admin: 04/18/19 10:09 Dose: Not Given Documented by: Nitroglycerin (Nitrostat) 0.4 mg SUBLINGUAL Q5M PRN PRN Reason: CARDIAC/CHEST PAIN Ondansetron HCl (Zofran) 4 mg IV Q8H PRN PRN PRN Reason: NAUSEA/VOMITING Oxycodone HCl (Oxyir) 5 mg PO Q4H PRN PRN PRN Reason: Pain Score 4-5/10 Oxycodone HCl (Oxyir) 10 mg PO Q4H PRN PRN PRN Reason: Pain Score 6-10/10 Sodium Chloride () 10 - 40 ml IV UD PRN PRN Reason: SALINE FLUSH Last Admin: 04/18/19 06:57 Dose: 30 ml Documented by: Warfarin Sodium (Coumadin (Pbkc)) 2.5 mg PO TuWe@2200 [facility] Warfarin Sodium (Coumadin (Pbkc)) 5 mg PO SuMoThFrSa@2200 [facility] Last Admin: 04/17/19 21:17 Dose: 5 mg Documented by: Clinical Impression(s) from Imaging Studies Renal Ultrasound 04/17/19 12:16 IMPRESSION: Findings consistent with nonspecific renal parenchymal disease. No evidence for renal obstruction. Left renal cyst measuring 2.5 x 2.4 x 2.5 cm. Electronically Signed: Adonis Seals MD at 22:52 EST , Service support , Medical Necessity - Tobacco Use Smoking Status: Former smoker Assessment/Plan All Active Problems (Last Reviewed 04/16/19 @ 11:18 by Regulo Figueroa MD) CHF (congestive heart failure) (Acute) MOUNA (acute kidney injury) (Acute) Acute respiratory failure (Resolved) Pneumonia, community acquired (Resolved) Sepsis (Resolved) RECOMMENDATIONS: 1. Consider empiric antibiotics until cultures can be completed if influenza negative 2. Continue BiPAP with sleep and breaks as tolerated 3. Continue empiric steroid therapy 4. Consider gentle diuresis if okay with nephrology. Await nephrology recommendations 5. Continue bronchodilator therapy IMPRESSIONS: 1. Acute on chronic hypercarbic respiratory failure Unclear etiology at this time. Patient does have clinical signs and symptoms of increased volume status with recent travel. Work-up for pulmonary embolism was negative. Patient does have better air exchange following initiation of steroid therapy, so will continue. Patient continues to require BiPAP rescue through the day. Would consider gentle diuresis if okay with nephrology. Patient is reporting low back pain, so bladder scan for residual urine may be appropriate to avoid a postobstructive uropathy as patient does not have a Barcenas in place. 2. Acute on chronic kidney disease stage III/hyperkalemia Baseline creatinine of 1.3, but significant worsening after diuretic therapy. Patient does have a renal ultrasound showing no hydronephrosis. Given lack of hydronephrosis, would consider diuretic therapy if okay with nephrology. Hyperkalemia is slightly improved compared to previous. 3. Chronic A. fib/chronic diastolic congestive heart failure/history of VSD repair/pulmonary hypertension Patient anticoagulated and doing well. No signs or symptoms of bleeding at this time. Patient may have an element of pulmonary hypertension leading to current findings. Diuretics have previously been held secondary to renal function. Patient is on significant beta-rakesh at this time. Cardiology could perform a right heart catheterization for further clarification on volume status. Patient's echo is limited given body habitus. 4. Hypertension/type 2 diabetes mellitus/hyperlipidemia/morbid obesity/noncompliant LASHAWN Complicates care, management, recovery and prognosis. Will need to watch blood sugars closely given addition of steroid therapy. Patient is tolerating BiPAP at this time. We will continue with this therapy. Okay to continue statin from my perspective. Code Visit Inpatient E&M: 89349 [facility] Hosp L3
[2019-04-18 16:25] LABS: Bedside Glucose 308 mg/dL (70-110)
[2019-04-18 17:43] LABS: International Normalized Ratio 2.6; Prothrombin Time (Protime)PT. 28.3 SECONDS (11.7-14.9)
--- NOTE | 2019-04-18 17:55 | PCM.PN.REN ---
Patient Problems: Active and Suspected Problems (Last Reviewed 04/16/19 @ 11:18 by Regluo Figueroa MD) CHF (congestive heart failure) (Acute) MOUNA (acute kidney injury) (Acute) Subjective: He then started. Went into nonsustained V. tach and was given adenosine. Currently on amiodarone drip. Heart rate is better now. - Physical Exam Vitals/I&O's: Vital Signs Temp Pulse Resp BP Pulse Ox 97.2 F L 71 21 H 107/55 L 92 04/18/19 17:00 04/18/19 17:00 04/18/19 17:00 04/18/19 17:00 04/18/19 17:00 Oxygen Flow Rate (L/min) 3 Oxygen Delivery Method Nasal Cannula Weight: 159.4 kg Body Mass Index (BMI) 52.5 Intake and Output for Last 24 Hours 04/16/19 04/17/19 04/18/19 23:59 23:59 23:59 Intake Total 480 / 480 1023 / 1023 2616.30 / 2616.30 Output Total 475 / 475 150 / 150 Balance 480 / 480 548 / 548 2466.30 / 2466.30 General: Alert, Oriented x3, Cooperative HEENT: Atraumatic, PERRLA, EOMI, Normocephalic Neck: Supple, No JVD, Negative Carotid Bruits Lungs: Clear to auscultation, Normal air movement Cardiovascular: Regular rate, No murmurs Abdomen: Bowel Sounds Present, Soft, Non Tender Extremities: Capillary Refill Less than 3 Seconds, Edema Skin: No rashes, No breakdown Musculoskeletal: No Tenderness to Palpation of Joints or Extremities Neurological: Cranial nerves II-XII grossly intact Psych/Mental Status: Normal Affect, Appropriate Microbiology Past 72 Hours 04/17/19 14:19 Mucosa - Nose Influenza Types A,B Direct FA (JL) - Final Laboratory Results 04/17/19 18:20: Urine Color Brown, Urine Clarity Turbid, Urine pH 6.5, Ur Specific [place] 1.020, Urine Protein 500 H, Urine Glucose (UA) Normal, Urine Ketones 5 H, Urine Occult Blood 150 H, Urine Nitrite Negative, Urine Bilirubin Negative, Urine Urobilinogen Normal, Ur Leukocyte Esterase Negative, Urine RBC > 100 SEEN, Urine WBC 0 SEEN, Ur Squamous Epith Cells 0 SEEN, Amorphous Sediment 3+, Urine Bacteria 0 SEEN, Urine Mucus 0 SEEN 04/17/19 21:25: POC Glucose 210 H 04/18/19 04:33: POC Glucose 275 H 04/18/19 06:10: WBC 12.8 H, RBC 4.32 L, Hgb 11.5 L, Hct 40.6, MCV 94.0, MCH 26.6 L, MCHC 28.3 L, RDW Std Deviation 53.1 H, RDW Coeff of Janiya 15.3 H, Plt Count 237, MPV 8.9, Immature Gran % (Auto) 0.500, Neut % (Auto) 93.6 H, Lymph % (Auto) 3.0 L, [place] % (Auto) 2.7, Eos % (Auto) 0.0, Baso % (Auto) 0.2, Absolute Neuts (auto) 12.0 H, Absolute Lymphs (auto) 0.38 L, Nucleated RBC % 0, Differential Comment SCANNED 04/18/19 06:10: PT 34.4 H, INR 3.4 04/18/19 06:10: Sodium 134 L, Potassium 5.9 H, Chloride 94 L, Carbon Dioxide 37.0 H, Anion Gap 3 L, BUN 58 H, Creatinine 3.30 H, Estim Creat Clear Calc 22.74, Est GFR (MDRD) Af Amer 25 L, Est GFR (MDRD) Non-Af 20 L, BUN/Creatinine Ratio 17.6, Glucose 302 H, Calcium 8.8 04/18/19 06:10: Phosphorus 6.7 H, Magnesium 2.8 H 04/18/19 06:30: POC Glucose 264 H 04/18/19 09:20: Blood Type A POSITIVE 04/18/19 10:22: POC Glucose 289 H 04/18/19 14:55: Sodium 133 L, Potassium 5.5 H, Chloride 94 L, Carbon Dioxide 37.0 H, Anion Gap 2 L, BUN 63 H, Creatinine 3.64 H, Estim Creat Clear Calc 20.62, Est GFR (MDRD) Af Amer 22 L, Est GFR (MDRD) Non-Af 18 L, BUN/Creatinine Ratio 17.3, Glucose 314 H, Calcium 8.4 L 04/18/19 16:11: POC Glucose 308 H 04/18/19 17:07: PT 28.3 H, INR 2.6 Current Medications Acetaminophen (Tylenol) 650 mg PO Q6H PRN PRN PRN Reason: Pain Score 1-3/Temp > 100.7 F Last Admin: 04/18/19 08:32 Dose: 650 mg Documented by: Al Hydroxide/Mg Hydroxide (Mylanta Ii) 30 ml PO Q6H PRN PRN PRN Reason: Gastric Burning Albuterol Sulfate (Ventolin Aerosols) 2.5 mg INHALATION Q2H PRN PRN PRN Reason: SOB/Wheezing Last Admin: 04/17/19 05:35 Dose: 2.5 mg Documented by: Albuterol/Ipratropium (Duoneb) 3 ml INHALATION Q6H.RT PRN PRN Reason: SOB &/OR WHEEZING Atorvastatin Calcium (Lipitor) 20 mg PO QHS [facility] Last Admin: 04/17/19 21:17 Dose: 20 mg Documented by: Glucagon () 1 mg IM .X1 PRN PRN Reason: Hypoglycemia Guaifenesin (Robitussin) 20 ml PO Q4H PRN PRN PRN Reason: COUGH Dextrose (Dextrose 10%-Water) 250 mls @ 999 mls/hr IV .Q16M PRN; Protocol PRN Reason: HYPOGLYCEMIA Amiodarone HCl 360 mg/ (Dextrose) 200 mls @ 16.667 mls/hr CONT INF .Q12H [facility] Stop: 04/19/19 04:59 Insulin Human Lispro (Humalog Kwikpen (Bkc)) 0 unit SC ACHS [facility]; Protocol Last Admin: 04/18/19 16:18 Dose: 6 units Documented by: Magnesium Hydroxide (Milk Of Magnesia) 30 ml PO DAILY PRN PRN PRN Reason: Constipation Melatonin (Melatonin) 3 mg PO QHS PRN PRN PRN Reason: INSOMNIA Methylprednisolone (Solu-Medrol) 40 mg IV Q8 [facility] Last Admin: 04/18/19 13:32 Dose: 40 mg Documented by: Metoprolol Succinate (Toprol Xl (Beta Rakesh)) 100 mg PO DAILY [facility] Last Admin: 04/18/19 10:09 Dose: Not Given Documented by: Nitroglycerin (Nitrostat) 0.4 mg SUBLINGUAL Q5M PRN PRN Reason: CARDIAC/CHEST PAIN Ondansetron HCl (Zofran) 4 mg IV Q8H PRN PRN PRN Reason: NAUSEA/VOMITING Oxycodone HCl (Oxyir) 5 mg PO Q4H PRN PRN PRN Reason: Pain Score 4-5/10 Oxycodone HCl (Oxyir) 10 mg PO Q4H PRN PRN PRN Reason: Pain Score 6-10/10 Sodium Chloride () 10 - 40 ml IV UD PRN PRN Reason: SALINE FLUSH Last Admin: 04/18/19 06:57 Dose: 30 ml Documented by: Warfarin Sodium (Coumadin (Pbkc)) 2.5 mg PO TuWe@2200 DANIEL Warfarin Sodium (Coumadin (Pbkc)) 5 mg PO SuMoThFrSa@2200 DANIEL Last Admin: 04/17/19 21:17 Dose: 5 mg Documented by: Medical Necessity - Tobacco Use Smoking Status: Former smoker Assessment/Plan All Active Problems (Last Reviewed 04/16/19 @ 11:18 by Regulo Figueroa MD) CHF (congestive heart failure) (Acute) MOUNA (acute kidney injury) (Acute) Acute respiratory failure (Resolved) Pneumonia, community acquired (Resolved) Sepsis (Resolved) Acute renal failure, chronic kidney disease stage III CHF Atrial fibrillation Patient tells me that his blood pressure usually runs low. Current blood pressure is around 109 or so. Baseline creatinine is around 1.3. Current creatinine is around 3.3. On review of records from [facility], he did not have significant proteinuria. Renal ultrasound without any hydronephrosis, echogenic kidneys Urine analysis with RBCs and protein. We'll send serologies for glomerulonephritis. Worsening renal failure with associated hyperkalemia. Didn't receive kayexalate this am. He also has fairly significant hyperglycemia which is contributing to hyperkalemia. Repeat BMP in the afternoon for now. Not much urine output despite receiving IV Lasix. I did discuss with the patient and about possible dialysis in the setting of hyperkalemia and worsening renal failure. Explain catheter placement and possibility of renal recovery. All questions answered. We'll wait for repeat BMP in the afternoon and plan for dialysis if potassium remains high. Discussed with Dr. Serrano
[2019-04-18] MEDS: Ipratropium/Albuterol Sulfate 3 ML AMPUL.NEB INHALATION (19:00)
[2019-04-18] MEDS: Amiodarone 200 MG Tablet PO (22:11)
[2019-04-18] MEDS: Atorvastatin Calcium 20 MG Tablet PO (22:12)
[2019-04-18 23:11] LABS: Bedside Glucose 371 mg/dL (70-110)
[2019-04-19] VITALS (39 sets, daily range): BP systolic 83–139; BP diastolic 43–97; PULSE 66–87; RESP 14–28; TEMP 35.8–36.6; O2SAT 90–96; BMI 53.4
[2019-04-19] MEDS: Ipratropium/Albuterol Sulfate 3 ML AMPUL.NEB INHALATION ×5 (00:58→20:52)
--- NOTE | 2019-04-19 01:00 | CPS ---
pt had bipap on for 1/2 from midnight to 0030 and nurse took off pt states mask hurts everywhere it hits his skin
[2019-04-19 06:37] LABS: Absolute Lymphocyte Count 0.29 X10^3/uL (0.83-4.51); Absolute Neutrophil Count 8.5 X10^3/uL (2.0-7.7); Basophil# 0.01 X10^3/uL; Basophil% 0.1 % (0-1); Hematocrit 39.4 % (40-54); Hemoglobin 11.5 g/dL (13.0-16.5); Lymphocyte # 0.29 X10^3/ul (4.0); Lymphocyte % 3.1 % (19-41); Mean Corp Hgb Conc 29.2 g/dL (32-36); Mean Corpuscular Hgb 27.2 pg (27.0-32.0); Mean Corpuscular Volume 93.1 fL (80-94); Mean Platelet Vol. 9.1 fl (6.2-12.0); Monocyte# 0.43 X10^3/uL; Monocyte% 4.6 % (0-10); NRBC Flagged by Analyzer 0.3 % (0-5); Neutrophil # 8.48 X10^3/uL (2.7-7.7); Neutrophil % 91.3 % (47-70); POSITIVE DIFFERENTIAL YES; Platelet Count 231 K/mm3 (150-450); RBC Distribution Width CV 15.1 % (11.6-14.6); RBC Distribution Width SD 51.1 fl (35.1-43.9); Red Blood Count 4.23 M/mm3 (4.6-6.2); White Blood Count 9.3 K/mm3 (4.4-11.0)
[2019-04-19 06:45] LABS: International Normalized Ratio 2.2; Prothrombin Time (Protime)PT. 24.6 SECONDS (11.7-14.9)
[2019-04-19] MEDS: 0.9% Saline Lock 10 ML Syringe IV ×3 (06:50→23:57)
[2019-04-19] MEDS: Insulin Lispro 100 UNIT/ML INSULN.PEN SC ×3 (06:51→15:17)
[2019-04-19 07:10] LABS: Bedside Glucose 368 mg/dL (70-110)
[2019-04-19 07:11] LABS: Differential Indicated SCAN CRITERIA MET
[2019-04-19 07:21] LABS: Anion Gap 3 (5-15); BUN 79 mg/dL (7-18); BUN/Creat Ratio 19.6 RATIO (10-20); Calcium,Total 8.3 mg/dL (8.5-10.1); Chloride 91 mmol/L (98-107); Creatinine, Serum 4.04 mg/dL (0.70-1.30); EST Glomerular Filtration Rate 16 mL/min (>60); Est Glom Filt Rate - Afr Amer 20 mL/min (>60); Estimated Creatinine Clearance 18.58 ml/min; Glucose 405 mg/dL (74-106); Potassium 5.2 mmol/L (3.5-5.1); Sodium Level 131 mmol/L (136-145)
[2019-04-19 07:27] LABS: Hypochromasia RARE; Platelet Estimate ADEQUATE (ADEQ)
[2019-04-19] MEDS: oxyCODONE 5 MG Tablet PO (07:54)
[2019-04-19] MEDS: Amiodarone 200 MG Tablet PO ×2 (08:55→23:52)
--- NOTE | 2019-04-19 10:30 | PN.CARD_ITS ---
Subjectve: Patient seen and evaluated. Feels quite well. Objective: Vital Signs Temp Pulse Resp BP Pulse Ox 97.1 F L 71 18 99/50 L 93 04/19/19 08:55 04/19/19 08:55 04/19/19 08:55 04/19/19 08:55 04/19/19 08:55 Oxygen Flow Rate (L/min) 3 Oxygen Delivery Method Nasal Cannula Weight: 351 lb 6.669 oz Body Mass Index (BMI) 52.5 Intake and Output for Last 24 Hours 04/17/19 04/18/19 04/19/19 23:59 23:59 23:59 Intake Total 1023 / 1023 3750.00 / 3762.25 299.30 / 299.30 Output Total 475 / 475 750 / 750 Balance 548 / 548 3000.00 / 3012.25 299.30 / 299.30 General: Awake, Alert, Oriented x 3 HEENT: PERRL, EOMI, Sclera Non Icteric Neck: Supple, Good ROM, No Lymph Node Enlargement Lungs: Clear to auscultation Cardiovascular: Regular Rhythm, Normal S1, Normal S2, No Murmurs, No Rubs, No Gallops Vascular: No Carotid Bruits, Normal Femoral Pulses, Normal Radial Pulses, Normal Dorsalis Pedal Pulse, Normal Posterior Tibial Pulses Abdomen: Bowel Sounds Present, Soft, Non Tender, No HSM, No Organomegaly Extremities: No Cyanosis, No Clubbing, No edema Skin: No Rashes Lymphatic: No Lymph Node Enlargement Neurological: No Focal Motor or Sensory Deficit 04/18/19 14:55: Sodium 133 L, Potassium 5.5 H, Chloride 94 L, Carbon Dioxide 37.0 H, Anion Gap 2 L, BUN 63 H, Creatinine 3.64 H, Est GFR (MDRD) Af Amer 22 L, Est GFR (MDRD) Non-Af 18 L, BUN/Creatinine Ratio 17.3, Glucose 314 H, Calcium 8.4 L 04/18/19 17:07: PT 28.3 H, INR 2.6 04/19/19 06:10: WBC 9.3, RBC 4.23 L, Hgb 11.5 L, Hct 39.4 L, MCV 93.1, MCH 27.2, MCHC 29.2 L, Plt Count 231, MPV 9.1, Immature Gran % (Auto) 0.900, Neut % (Auto) 91.3 H, Lymph % (Auto) 3.1 L, [place] % (Auto) 4.6, Eos % (Auto) 0.0, Baso % (Auto) 0.1, Absolute Neuts (auto) 8.5 H, Nucleated RBC % 0.3 04/19/19 06:10: PT 24.6 H, INR 2.2 04/19/19 06:10: Sodium 131 L, Potassium 5.2 H, Chloride 91 L, Carbon Dioxide 37.0 H, Anion Gap 3 L, BUN 79 H, Creatinine 4.04 H, Est GFR (MDRD) Af Amer 20 L, Est GFR (MDRD) Non-Af 16 L, BUN/Creatinine Ratio 19.6, Glucose 405 H, Calcium 8.3 L Rhythm: EKG: ECHO: Stress Test: Cardiac Cath: PCI: CT Surgery: Holter monitor: EPS: PPM: CXR: Chest CT Scan: Medical Necessity - Tobacco Use Smoking Status: Former smoker Assessment/Plan 1. Shortness of breath * The etiology of the above is unlikely to be primary cardiac in etiology. His natruretic peptide level was normal, his echocardiogram demonstrated preserved ejection fraction. He may have a problem with obesity hypoventilation syndrome. With consequence hypercapnia. * Will hold off on further diuresis * 2. Supraventricular tachycardia and atrial fibrillation * Patient is anticoagulated for the above * He is also on a beta-jackson. He is status post failed ablation. I would rec ommend that we start him on amiodarone short-term to see whether this would be able to control his heart rate. Depending on the findings further recommendations will be made. * He did have an episode of a wide complex tachycardia which was likely a supraventricular tachycardia with aberrancy. He briefly responded to adenosine but responded to high-dose adenosine combined with intravenous amiodarone. * He was given oral amiodarone to which he is tolerating quite well. 3. Hypertension * Good control on the current medical therapy. No major changes will be made at this time. * * From the cardiac standpoint he appears to be stable and I would not make any major changes. * Thank you for allowing me to participate in the care of your patient. Please don't hesitate to call if any issues arise
[2019-04-19 10:51] LABS: Bedside Glucose 445 mg/dL (70-110)
--- NOTE | 2019-04-19 11:45 | NURSING ---
Initiate VS taken at 1144 for 04/19/19's first unit FFP
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
--- NOTE | 2019-04-19 12:23 | PCM.PN.REN ---
Patient Problems: Active and Suspected Problems (Last Reviewed 04/16/19 @ 11:18 by Regulo Figueroa MD) CHF (congestive heart failure) (Acute) MOUNA (acute kidney injury) (Acute) Subjective: No new complaints Remains on BiPAP due to hypercapnia Feels somewhat better Urine output is still low Creatinine worse - Physical Exam Vitals/I&O's: Vital Signs Temp Pulse Resp BP Pulse Ox 98 F 71 28 H 139/97 H 93 04/19/19 12:01 04/19/19 12:01 04/19/19 12:01 04/19/19 12:04/19/19 12:01 Oxygen Flow Rate (L/min) 4 Oxygen Delivery Method Nasal Cannula Weight: 159.4 kg Body Mass Index (BMI) 52.5 Intake and Output for Last 24 Hours 04/17/19 04/18/19 04/19/19 23:59 23:59 23:59 Intake Total 1023 / 1023 3750.00 / 3762.25 299.30 / 299.30 Output Total 475 / 475 750 / 750 Balance 548 / 548 3000.00 / 3012.25 299.30 / 299.30 General: Alert, Oriented x3, Cooperative HEENT: Atraumatic, PERRLA, EOMI, Normocephalic Neck: Supple, No JVD, Negative Carotid Bruits Lungs: Clear to auscultation, Normal air movement Cardiovascular: Regular rate, No murmurs Abdomen: Bowel Sounds Present, Soft, Non Tender Extremities: Capillary Refill Less than 3 Seconds, Edema Skin: No rashes, No breakdown Musculoskeletal: No Tenderness to Palpation of Joints or Extremities Neurological: Cranial nerves II-XII grossly intact Psych/Mental Status: Normal Affect, Appropriate Microbiology Past 72 Hours 04/17/19 14:19 Mucosa - Nose Influenza Types A,B Direct FA (JL) - Final Laboratory Results 04/18/19 09:20: Blood Type A POSITIVE 04/18/19 14:55: Sodium 133 L, Potassium 5.5 H, Chloride 94 L, Carbon Dioxide 37.0 H, Anion Gap 2 L, BUN 63 H, Creatinine 3.64 H, Estim Creat Clear Calc 20.62, Est GFR (MDRD) Af Amer 22 L, Est GFR (MDRD) Non-Af 18 L, BUN/Creatinine Ratio 17.3, Glucose 314 H, Calcium 8.4 L 04/18/19 16:11: POC Glucose 308 H 04/18/19 17:07: PT 28.3 H, INR 2.6 04/18/19 22:08: POC Glucose 371 H 04/19/19 06:10: WBC 9.3, RBC 4.23 L, Hgb 11.5 L, Hct 39.4 L, MCV 93.1, MCH 27.2, MCHC 29.2 L, RDW Std Deviation 51.1 H, RDW Coeff of Janiya 15.1 H, Plt Count 231, MPV 9.1, Immature Gran % (Auto) 0.900, Neut % (Auto) 91.3 H, Lymph % (Auto) 3.1 L, [place] % (Auto) 4.6, Eos % (Auto) 0.0, Baso % (Auto) 0.1, Absolute Neuts (auto) 8.5 H, Absolute Lymphs (auto) 0.29 L, Nucleated RBC % 0.3, Platelet Estimate ADEQUATE, Hypochromasia RARE 04/19/19 06:10: PT 24.6 H, INR 2.2 04/19/19 06:10: Sodium 131 L, Potassium 5.2 H, Chloride 91 L, Carbon Dioxide 37.0 H, Anion Gap 3 L, BUN 79 H, Creatinine 4.04 H, Estim Creat Clear Calc 18.58, Est GFR (MDRD) Af Amer 20 L, Est GFR (MDRD) Non-Af 16 L, BUN/Creatinine Ratio 19.6, Glucose 405 H, Calcium 8.3 L 04/19/19 06:49: POC Glucose 368 H 04/19/19 10:38: POC Glucose 445 H Current Medications Acetaminophen (Tylenol) 650 mg PO Q6H PRN PRN PRN Reason: Pain Score 1-3/Temp > 100.7 F Last Admin: 04/18/19 08:32 Dose: 650 mg Documented by: Al Hydroxide/Mg Hydroxide (Mylanta Ii) 30 ml PO Q6H PRN PRN PRN Reason: Gastric Burning Albuterol Sulfate (Ventolin Aerosols) 2.5 mg INHALATION Q2H PRN PRN PRN Reason: SOB/Wheezing Last Admin: 04/17/19 05:35 Dose: 2.5 mg Documented by: Albuterol/Ipratropium (Duoneb) 3 ml INHALATION Q6H.RT PRN PRN Reason: SOB &/OR WHEEZING Last Admin: 04/19/19 06:48 Dose: 3 ml Documented by: Amiodarone HCl (Cordarone) 200 mg PO BID [facility] Last Admin: 04/19/19 08:55 Dose: 200 mg Documented by: Atorvastatin Calcium (Lipitor) 20 mg PO QHS [facility] Last Admin: 04/18/19 22:12 Dose: 20 mg Documented by: Glucagon () 1 mg IM .X1 PRN PRN Reason: Hypoglycemia Guaifenesin (Robitussin) 20 ml PO Q4H PRN PRN PRN Reason: COUGH Dextrose (Dextrose 10%-Water) 250 mls @ 999 mls/hr IV .Q16M PRN; Protocol PRN Reason: HYPOGLYCEMIA Insulin Human Lispro (Humalog Kwikpen (Bkc)) 0 unit SC ACHS [facility]; Protocol Last Admin: 04/19/19 10:39 Dose: 11 units Documented by: Magnesium Hydroxide (Milk Of Magnesia) 30 ml PO DAILY PRN PRN PRN Reason: Constipation Melatonin (Melatonin) 3 mg PO QHS PRN PRN PRN Reason: INSOMNIA Methylprednisolone (Solu-Medrol) 40 mg IV Q8 [facility] Last Admin: 04/19/19 06:50 Dose: 40 mg Documented by: Metoprolol Succinate (Toprol Xl (Beta Rakesh)) 100 mg PO DAILY [facility] Last Admin: 04/19/19 09:13 Dose: Not Given Documented by: Nitroglycerin (Nitrostat) 0.4 mg SUBLINGUAL Q5M PRN PRN Reason: CARDIAC/CHEST PAIN Ondansetron HCl (Zofran) 4 mg IV Q8H PRN PRN PRN Reason: NAUSEA/VOMITING Oxycodone HCl (Oxyir) 5 mg PO Q4H PRN PRN PRN Reason: Pain Score 4-5/10 Last Admin: 04/19/19 07:54 Dose: 5 mg Documented by: Oxycodone HCl (Oxyir) 10 mg PO Q4H PRN PRN PRN Reason: Pain Score 6-10/10 Sodium Chloride () 10 - 40 ml IV UD PRN PRN Reason: SALINE FLUSH Last Admin: 04/19/19 06:50 Dose: 10 ml Documented by: Warfarin Sodium (Coumadin (Pbkc)) 2.5 mg PO TuWe@2200 [facility] Warfarin Sodium (Coumadin (Pbkc)) 5 mg PO SuMoThFrSa@2200 [facility] Last Admin: 04/17/19 21:17 Dose: 5 mg Documented by: Medical Necessity - Tobacco Use Smoking Status: Former smoker Assessment/Plan All Active Problems (Last Reviewed 04/16/19 @ 11:18 by Regulo Figueroa MD) CHF (congestive heart failure) (Acute) MOUNA (acute kidney injury) (Acute) Acute respiratory failure (Resolved) Pneumonia, community acquired (Resolved) Sepsis (Resolved) Acute renal failure, chronic kidney disease stage III CHF Atrial fibrillation Patient tells me that his blood pressure usually runs low. Current blood pressure is around 109 or so. Baseline creatinine is around 1.3. Current creatinine is around 4. On review of records from [facility], he did not have significant proteinuria. Renal ultrasound without any hydronephrosis, echogenic kidneys Urine analysis with RBCs and protein. We'll send serologies for glomerulonephritis. Worsening renal failure with associated hyperkalemia. Potassium better but still borderline high I did discuss with the patient and about possible dialysis in the setting of hyperkalemia and worsening renal failure. Explain catheter placement and possibility of renal recovery. All questions answered. INR is at 2.2 today. Discussed with surgery. FFP ordered by primary service. Will plan for dialysis catheter placement today and initiate dialysis after. Discussed with Dr. Serrano
--- NOTE | 2019-04-19 13:45 | EKG12_ITS ---
Test Reason : WIDE QRS V-TACH Blood Pressure : / mmHG Vent. Rate : 142 BPM Atrial Rate : 077 BPM P-R Int : 000 ms QRS Dur : 152 ms QT Int : 354 ms P-R-T Axes : 000 -02 175 degrees QTc Int : 544 ms Probably SVT with aberrancy Wide QRS tachycardia Non-specific intra-ventricular conduction block Marked T wave abnormality, consider anterolateral ischemia Abnormal ECG When compared with ECG of 19-APR-2019 14:59, MANUAL COMPARISON REQUIRED, DATA IS UNCONFIRMED Confirmed by FELIBERTO HAMLIN, ELAINA ([id number]), commissioning editor MARINA BEE ([id number]) on 04/21/2019 1:20:36 PM Referred By: Regulo Figueroa Confirmed By:SE DAO MD
[2019-04-19 13:53] LABS: Hepatitis B Surface Antibody Non-Reactive; Hepatitis B Surface Antigen Non-Reactive (Nonreactive)
--- NOTE | 2019-04-19 13:59 | PN_ITS ---
Patient Problems: Active and Suspected Problems (Last Reviewed 04/16/19 @ 11:18 by Regulo Figueroa MD) CHF (congestive heart failure) (Acute) MOUNA (acute kidney injury) (Acute) Subjective: Patient seen and examined. Patient little better today and said he felt much better. Shortness of breath had improved. He denied any chest pain or palpitations, dizziness, abdominal pain, diarrhea or vomiting. Review of systems otherwise negative. He had some episodes of low blood pressure blood pressure this morning was 100/63. Potassium today is 5.2 and sodium is 131. Creatinine has trended up to 4.04 from 3.64 yesterday. He has elevated phosphorus and magnesium as well. BBC is down to 9.3 from 12.8. Vitals/I&O's: Vital Signs Temp Pulse Resp BP Pulse Ox 98 F 77 22 H 98/53 L 93 04/19/19 13:15 04/19/19 13:15 04/19/19 13:15 04/19/19 13:15 04/19/19 13:15 Oxygen Flow Rate (L/min) 4 Oxygen Delivery Method Nasal Cannula Weight: 351 lb 6.669 oz Body Mass Index (BMI) 53.4 Intake and Output for Last 24 Hours 04/17/19 04/18/19 04/19/19 23:59 23:59 23:59 Intake Total 1023 / 1023 3750.00 / 3762.25 539.30 / 539.30 Output Total 475 / 475 750 / 750 375 / 375 Balance 548 / 548 3000.00 / 3012.25 164.30 / 164.30 General: Alert, Oriented x3, Cooperative HEENT: Atraumatic, PERRLA, EOMI, Normocephalic Oral: Moist Mucosa Neck: Supple, No JVD, Negative Carotid Bruits Lungs: - - decreased breath sounds bibasally, no wheezes or crackles. on 4L of oxygen by nasal canula Cardiovascular: Regular Rhythm, Normal S1, Normal S2, No murmurs, regular rate Abdomen: Bowel Sounds Present, Soft, Non Tender, Non-Distended, No Hepato- splenomegaly, Obese Extremities: No clubbing, No cyanosis, Edema - bipedal 2+ pitting edema Skin: No rashes, No breakdown Musculoskeletal: No Tenderness to Palpation of Joints or Extremities Lymphatic: No Cervical, Supraclavicular, or Inguinal Adenopathy Neurological: Cranial nerves II-XII grossly intact, Neuro grossly intact, Motor Exam 5/5 strength throughout Psych/Mental Status: Agitated - due to pain from catheter, Alert and oriented to time, place, person, mood and affect Microbiology Past 72 Hours 04/17/19 14:19 Mucosa - Nose Influenza Types A,B Direct FA (JL) - Final Laboratory Results 04/18/19 14:55: Sodium 133 L, Potassium 5.5 H, Chloride 94 L, Carbon Dioxide 37.0 H, Anion Gap 2 L, BUN 63 H, Creatinine 3.64 H, Estim Creat Clear Calc 20.62, Est GFR (MDRD) Af Amer 22 L, Est GFR (MDRD) Non-Af 18 L, BUN/Creatinine Ratio 17.3, Glucose 314 H, Calcium 8.4 L 04/18/19 16:11: POC Glucose 308 H 04/18/19 17:07: PT 28.3 H, INR 2.6 04/18/19 22:08: POC Glucose 371 H 04/19/19 06:10: WBC 9.3, RBC 4.23 L, Hgb 11.5 L, Hct 39.4 L, MCV 93.1, MCH 27.2, MCHC 29.2 L, RDW Std Deviation 51.1 H, RDW Coeff of Janiya 15.1 H, Plt Count 231, MPV 9.1, Immature Gran % (Auto) 0.900, Neut % (Auto) 91.3 H, Lymph % (Auto) 3.1 L, [place] % (Auto) 4.6, Eos % (Auto) 0.0, Baso % (Auto) 0.1, Absolute Neuts (auto) 8.5 H, Absolute Lymphs (auto) 0.29 L, Nucleated RBC % 0.3, Platelet Estimate ADEQUATE, Hypochromasia RARE 04/19/19 06:10: PT 24.6 H, INR 2.2 04/19/19 06:10: Sodium 131 L, Potassium 5.2 H, Chloride 91 L, Carbon Dioxide 37.0 H, Anion Gap 3 L, BUN 79 H, Creatinine 4.04 H, Estim Creat Clear Calc 18.58, Est GFR (MDRD) Af Amer 20 L, Est GFR (MDRD) Non-Af 16 L, BUN/Creatinine Ratio 19.6, Glucose 405 H, Calcium 8.3 L 04/19/19 06:49: POC Glucose 368 H 04/19/19 10:38: POC Glucose 445 H 04/19/19 12:55: Hep B Core Total Ab Pending 04/19/19 12:55: Hep Bs Antigen Non-Reactive, Hep Bs Antibody Non-Reactive 04/19/19 12:55: Double Strand DNA Ab Pending 04/19/19 12:55: c-ANCA Antibody Pending, p-ANCA Antibody Pending, Complement C3 Pending, Complement C4 Pending Diagnostic Data Chest X-Ray 04/17/19 05:40 IMPRESSION: Cardiomegaly with CHF and pulmonary edema. Small right pleural effusion. No definite change from previous study. Electronically Signed: Fer Dotson MD at 7:01 EST , Service support , Chest CT 04/17/19 07:43 IMPRESSION: Patchy bilateral pulmonary infiltrates. Follow-up is recommended. Electronically Signed: Fortunato Francisco, at 14:26 EST , Service support , Lung Scan-VQ NM 04/17/19 07:51 IMPRESSION: 1. VERY LOW PROBABILITY FOR PULMONARY EMBOLUS (<10%) 99m Tc DTPA aerosol ventilation / 99m Tc MAA pulmonary perfusion imaging examination, according to PIOPED II interpretive criteria with regard given to the presence of > 2 ventilation-perfusion matches without corresponding radiographic changes. (Sotsman et al, Radiology 246: 941, 2008 Sotsjose et al, J Nucl Med 49: 1741, 2008). 2. Central clumping of the aerosol may be secondary to obstructive airway mechanics and or clinical tachypnea. Electronically Signed: Neftaly Marin DO at 14:07 EST Tel , Service support , Renal Ultrasound 04/17/19 12:16 IMPRESSION: Findings consistent with nonspecific renal parenchymal disease. No evidence for renal obstruction. Left renal cyst measuring 2.5 x 2.4 x 2.5 cm. Electronically Signed: Adonis Seals MD at 22:52 EST , Service support , Current Medications Acetaminophen (Tylenol) 650 mg PO Q6H PRN PRN PRN Reason: Pain Score 1-3/Temp > 100.7 F Last Admin: 04/18/19 08:32 Dose: 650 mg Documented by: Al Hydroxide/Mg Hydroxide (Mylanta Ii) 30 ml PO Q6H PRN PRN PRN Reason: Gastric Burning Albuterol Sulfate (Ventolin Aerosols) 2.5 mg INHALATION Q2H PRN PRN PRN Reason: SOB/Wheezing Last Admin: 04/17/19 05:35 Dose: 2.5 mg Documented by: Albuterol/Ipratropium (Duoneb) 3 ml INHALATION Q6H.RT PRN PRN Reason: SOB &/OR WHEEZING Last Admin: 04/19/19 12:37 Dose: 3 ml Documented by: Amiodarone HCl (Cordarone) 200 mg PO BID [facility] Last Admin: 04/19/19 08:55 Dose: 200 mg Documented by: Atorvastatin Calcium (Lipitor) 20 mg PO QHS [facility] Last Admin: 04/18/19 22:12 Dose: 20 mg Documented by: Glucagon () 1 mg IM .X1 PRN PRN Reason: Hypoglycemia Guaifenesin (Robitussin) 20 ml PO Q4H PRN PRN PRN Reason: COUGH Dextrose (Dextrose 10%-Water) 250 mls @ 999 mls/hr IV .Q16M PRN; Protocol PRN Reason: HYPOGLYCEMIA Clindamycin Phosphate 900 mg/ (Dextrose) 106 mls @ 150 mls/hr IV X1 ONE Stop: 04/19/19 15:12 Insulin Human Lispro (Humalog Kwikpen (Bkc)) 0 unit SC ACHS [facility]; Protocol Last Admin: 04/19/19 10:39 Dose: 11 units Documented by: Magnesium Hydroxide (Milk Of Magnesia) 30 ml PO DAILY PRN PRN PRN Reason: Constipation Melatonin (Melatonin) 3 mg PO QHS PRN PRN PRN Reason: INSOMNIA Methylprednisolone (Solu-Medrol) 40 mg IV Q8 [facility] Last Admin: 04/19/19 13:10 Dose: 40 mg Documented by: Metoprolol Succinate (Toprol Xl (Beta Rakesh)) 100 mg PO DAILY [facility] Last Admin: 04/19/19 09:13 Dose: Not Given Documented by: Nitroglycerin (Nitrostat) 0.4 mg SUBLINGUAL Q5M PRN PRN Reason: CARDIAC/CHEST PAIN Ondansetron HCl (Zofran) 4 mg IV Q8H PRN PRN PRN Reason: NAUSEA/VOMITING Oxycodone HCl (Oxyir) 5 mg PO Q4H PRN PRN PRN Reason: Pain Score 4-5/10 Last Admin: 04/19/19 07:54 Dose: 5 mg Documented by: Oxycodone HCl (Oxyir) 10 mg PO Q4H PRN PRN PRN Reason: Pain Score 6-10/10 Sodium Chloride () 10 - 40 ml IV UD PRN PRN Reason: SALINE FLUSH Last Admin: 04/19/19 13:10 Dose: 10 ml Documented by: Warfarin Sodium (Coumadin (Pbkc)) 2.5 mg PO TuWe@0 [facility] Warfarin Sodium (Coumadin (Pbkc)) 5 mg PO SuMoThFrSa@2200 [facility] Last Admin: 04/17/19 21:17 Dose: 5 mg Documented by: STROKE Vital Signs/Narrative: Vital Signs Temp Pulse Resp BP Pulse Ox 04/19/19 13:15 98 F 77 22 H 98/53 L 93 04/19/19 13:03 81 18 04/19/19 12:01 98 F 71 28 H 139/97 H 93 04/19/19 11:03 71 Medical Necessity - Tobacco Use Smoking Status: Former smoker Assessment/Plan All Active Problems (Last Reviewed 04/16/19 @ 11:18 by Regulo Figueroa MD) CHF (congestive heart failure) (Acute) MOUNA (acute kidney injury) (Acute) Acute respiratory failure (Resolved) Pneumonia, community acquired (Resolved) Sepsis (Resolved) 1. acute hypoxic and hypercapnic respiratory failure * likely due to Obesity hypoventilation syndrome * patient now on 4L of oxygen; was on BIPAP briefly during the night. * shortness of breath is now much better * 2D echo: EF of 60% with no regional wall motion abnormalities noted. Normal right ventricular size and systolic function. Left and right atria were not well visualized. * Duplex was negative for any PE. * Pulmonology on board. VQ scan showed very low probability for PE. * Continue breathing treatments. Titrate oxygen to maintain saturation above 90%. Use BiPAP PRN. * 2. MOUNA on CKD with hyperkalemia * MOUNA is worsening with creatinine trending up to 4 today * Nephrology on board. Patient to have dialysis line placed today for temporary hemodialysis. * Potassium remains elevated at 5.2. * INR was 3 2 days of. Patient was given 2 more units of FFP's. * 3. Respiratory acidosis with compensatory metabolic alkalosis: * bicarb has remained stable at 37 * patient is stable. * will monitor * 4. Nonsustained Vtach * didnt recur * patient now on amiodarone PO 200mg bid. * cardiology on board * 5. Hypertension * Still had episodes of hypotension with blood pressure going down to 98/53 today. * BP meds on hold (lisinopril, spironolactone and torsemide) * On metoprolol o/a of afib 6. Type 2 diabetes mellitus: Metformin on hold on account of MOUNA. Insulin sliding scale. Accu-Cheks AC at bedtime. 7. Hyperlipidemia: On statin. 8. History of severe pulmonary hypertension: to follow up with pulmonology and cardiology after discharge 9. A. fib: * Status post ablation x3. * Rate controlled. * amiodarone drip dc'd. Now on PO amiodarone 200mg bid * now on amiodarone drip o/a of nonsustained Vtach * Also on metoprolol. * On Coumadin as well. * INR is 3.4 today 10. Chronic Heart failure with preserved ejection fraction: * 2D echo in October 2018 showed EF of 50%. * 2D echo during this admission shows EF of 60%with no regional wall motion abnormalities * cardiology on board. * 11. Super morbid obesity: BMI is 52.5. This complicates management, expected recovery and prognosis. 12. LASHAWN: Currently on BiPAP. Pulmonology on board. 13. History of congenital heart disease: * Status post VSD repair at age 18 and PDA repair at age 3. * Stable. * DVT prophylaxis: INR therapeutic. Coumadin on hold Code status: full code Code Visit Inpatient E&M: 73500 Subs Hosp L3
[2019-04-19 14:53] LABS: Hemoglobin A1c 9.7 % (4.2-6.3)
[2019-04-19 15:03] LABS: Partial Thromboplast Time 35.3 Seconds (24.1-36.2)
[2019-04-19 15:35] LABS: Bedside Glucose 443 mg/dL (70-110)
--- NOTE | 2019-04-19 15:43 | PCM.PN.PUL ---
Patient Problems: Active and Suspected Problems (Last Reviewed 04/16/19 @ 11:18 by Regulo Figueroa MD) CHF (congestive heart failure) (Acute) MOUNA (acute kidney injury) (Acute) Subjective: Patient feels subjectively improved compared to previous. Patient reports he has been off of his BiPAP for most of the day while awake. Patient denies any current chest pain. Patient has been evaluated for tunneled hemodialysis catheter, but is currently receiving FFP secondary to coagulopathy. - Physical Exam Vitals/I&O's: Vital Signs Temp Pulse Resp BP Pulse Ox 36.3 C L 72 20 H 121/57 H 94 04/19/19 15:28 04/19/19 15:35 04/19/19 15:35 04/19/19 15:28 04/19/19 15:28 Oxygen Flow Rate (L/min) 4 Oxygen Delivery Method Nasal Cannula Weight: 159.4 kg Body Mass Index (BMI) 53.4 Intake and Output for Last 24 Hours 04/17/19 04/18/19 04/19/19 23:59 23:59 23:59 Intake Total 1023 / 1023 3750.00 / 3762.25 539.30 / 539.30 Output Total 475 / 475 750 / 750 375 / 375 Balance 548 / 548 3000.00 / 3012.25 164.30 / 164.30 General: Alert, Oriented x3, Cooperative, Well developed, Well nourished, - - Morbidly obese. Mild conversational dyspnea HEENT: Atraumatic, PERRLA, EOMI, Normocephalic, - - No scleral icterus or injection noted Oral: Moist Mucosa, No Gingival or Mucosal Lesions/ Ulcerations Neck: Supple, No Nodes, Trachea Midline, JVD, Right Lungs: No rhonchi, No wheeze, Diminished, Rales, - - Symmetric expansion. Cardiovascular: Normal S1, Normal S2, No murmurs, Irregular Rate, No rub noted, No Gallop Abdomen: Bowel Sounds Present, Soft, Non Tender, Non-Distended, Obese Extremities: No clubbing, No cyanosis, Edema Skin: No rashes, No breakdown Musculoskeletal: No Tenderness to Palpation of Joints or Extremities Lymphatic: No Cervical, Supraclavicular, or Inguinal Adenopathy Neurological: Cranial nerves II-XII grossly intact, Neuro grossly intact, Motor Exam 5/5 strength throughout Psych/Mental Status: Alert and oriented to time, place, person, mood and affect Microbiology Past 72 Hours 04/18/19 21:15 Sputum, Expectorated/Coughed Gram Stain - Final 04/17/19 14:19 Mucosa - Nose Influenza Types A,B Direct FA (JL) - Final Laboratory Results 04/18/19 16:11: POC Glucose 308 H 04/18/19 17:07: PT 28.3 H, INR 2.6 04/18/19 22:08: POC Glucose 371 H 04/19/19 06:10: WBC 9.3, RBC 4.23 L, Hgb 11.5 L, Hct 39.4 L, MCV 93.1, MCH 27.2, MCHC 29.2 L, RDW Std Deviation 51.1 H, RDW Coeff of Janiya 15.1 H, Plt Count 231, MPV 9.1, Immature Gran % (Auto) 0.900, Neut % (Auto) 91.3 H, Lymph % (Auto) 3.1 L, [place] % (Auto) 4.6, Eos % (Auto) 0.0, Baso % (Auto) 0.1, Absolute Neuts (auto) 8.5 H, Absolute Lymphs (auto) 0.29 L, Nucleated RBC % 0.3, Platelet Estimate ADEQUATE, Hypochromasia RARE 04/19/19 06:10: PT 24.6 H, INR 2.2 04/19/19 06:10: Sodium 131 L, Potassium 5.2 H, Chloride 91 L, Carbon Dioxide 37.0 H, Anion Gap 3 L, BUN 79 H, Creatinine 4.04 H, Estim Creat Clear Calc 18.58, Est GFR (MDRD) Af Amer 20 L, Est GFR (MDRD) Non-Af 16 L, BUN/Creatinine Ratio 19.6, Glucose 405 H, Calcium 8.3 L 04/19/19 06:10: Hemoglobin A1c 9.7 H 04/19/19 06:49: POC Glucose 368 H 04/19/19 10:38: POC Glucose 445 H 04/19/19 12:55: Hep B Core Total Ab Pending 04/19/19 12:55: Hep Bs Antigen Non-Reactive, Hep Bs Antibody Non-Reactive 04/19/19 12:55: Double Strand DNA Ab Pending 04/19/19 12:55: c-ANCA Antibody Pending, p-ANCA Antibody Pending, Complement C3 Pending, Complement C4 Pending 04/19/19 14:45: APTT 35.3 04/19/19 15:16: POC Glucose 443 H Current Medications Acetaminophen (Tylenol) 650 mg PO Q6H PRN PRN PRN Reason: Pain Score 1-3/Temp > 100.7 F Last Admin: 04/18/19 08:32 Dose: 650 mg Documented by: Al Hydroxide/Mg Hydroxide (Mylanta Ii) 30 ml PO Q6H PRN PRN PRN Reason: Gastric Burning Albuterol Sulfate (Ventolin Aerosols) 2.5 mg INHALATION Q2H PRN PRN PRN Reason: SOB/Wheezing Last Admin: 04/17/19 05:35 Dose: 2.5 mg Documented by: Albuterol/Ipratropium (Duoneb) 3 ml INHALATION Q6H.RT PRN PRN Reason: SOB &/OR WHEEZING Last Admin: 04/19/19 15:35 Dose: 3 ml Documented by: Amiodarone HCl (Cordarone) 200 mg PO BID [facility] Last Admin: 04/19/19 08:55 Dose: 200 mg Documented by: Atorvastatin Calcium (Lipitor) 20 mg PO QHS [facility] Last Admin: 04/18/19 22:12 Dose: 20 mg Documented by: Glucagon () 1 mg IM .X1 PRN PRN Reason: Hypoglycemia Guaifenesin (Robitussin) 20 ml PO Q4H PRN PRN PRN Reason: COUGH Dextrose (Dextrose 10%-Water) 250 mls @ 999 mls/hr IV .Q16M PRN; Protocol PRN Reason: HYPOGLYCEMIA Insulin Human Lispro (Humalog Kwikpen (Bkc)) 0 unit SC ACHS [facility]; Protocol Last Admin: 04/19/19 15:17 Dose: 11 units Documented by: Magnesium Hydroxide (Milk Of Magnesia) 30 ml PO DAILY PRN PRN PRN Reason: Constipation Melatonin (Melatonin) 3 mg PO QHS PRN PRN PRN Reason: INSOMNIA Methylprednisolone (Solu-Medrol) 40 mg IV Q8 [facility] Last Admin: 04/19/19 13:10 Dose: 40 mg Documented by: Metoprolol Succinate (Toprol Xl (Beta Rakesh)) 100 mg PO DAILY [facility] Last Admin: 04/19/19 09:13 Dose: Not Given Documented by: Nitroglycerin (Nitrostat) 0.4 mg SUBLINGUAL Q5M PRN PRN Reason: CARDIAC/CHEST PAIN Ondansetron HCl (Zofran) 4 mg IV Q8H PRN PRN PRN Reason: NAUSEA/VOMITING Oxycodone HCl (Oxyir) 5 mg PO Q4H PRN PRN PRN Reason: Pain Score 4-5/10 Last Admin: 04/19/19 07:54 Dose: 5 mg Documented by: Oxycodone HCl (Oxyir) 10 mg PO Q4H PRN PRN PRN Reason: Pain Score 6-10/10 Sodium Chloride () 10 - 40 ml IV UD PRN PRN Reason: SALINE FLUSH Last Admin: 04/19/19 13:10 Dose: 10 ml Documented by: Warfarin Sodium (Coumadin (Pbkc)) 2.5 mg PO TuWe@2200 [facility] Warfarin Sodium (Coumadin (Pbkc)) 5 mg PO SuMoThFrSa@2200 [facility] Last Admin: 04/17/19 21:17 Dose: 5 mg Documented by: Medical Necessity - Tobacco Use Smoking Status: Former smoker Assessment/Plan All Active Problems (Last Reviewed 04/16/19 @ 11:18 by Regulo Figueroa MD) CHF (congestive heart failure) (Acute) MOUNA (acute kidney injury) (Acute) Acute respiratory failure (Resolved) Pneumonia, community acquired (Resolved) Sepsis (Resolved) RECOMMENDATIONS: 1. Consider empiric antibiotics until cultures can be resulted 2. Continue BiPAP with sleep 3. Continue empiric steroid therapy. Possible transition to prednisone tomorrow 4. Consider volume removal with hemodialysis 5. Continue bronchodilator therapy 6. Consider initiation of basal insulin IMPRESSIONS: 1. Acute on chronic hypercarbic respiratory failure Unclear etiology at this time. Patient does have clinical signs and symptoms of increased volume status with recent travel. Work-up for pulmonary embolism was negative. Patient does have better air exchange following initiation of steroid therapy, so will continue. Patient has not required BiPAP rescue through the day. Would consider volume removal if okay with nephrology. Encourage incentive spirometer given need for tunneled hemodialysis line 2. Acute on chronic kidney disease stage III/hyperkalemia Baseline creatinine of 1.3, but significant worsening after diuretic therapy. Patient does have a renal ultrasound showing no hydronephrosis. Given lack of hydronephrosis, would consider diuretic therapy if okay with nephrology. Hyperkalemia is slightly improved compared to previous. 3. Chronic A. fib/chronic diastolic congestive heart failure/history of VSD repair/pulmonary hypertension Patient anticoagulated and doing well. No signs or symptoms of bleeding at this time. Patient may have an element of pulmonary hypertension leading to current findings. Diuretics have previously been held secondary to renal function. Patient is on significant beta-rakesh at this time. Cardiology could perform a right heart catheterization for further clarification on volume status. Patient's echo is limited given body habitus. 4. Hypertension/type 2 diabetes mellitus/hyperlipidemia/morbid obesity/noncompliant LASHAWN Complicates care, management, recovery and prognosis. Consider additional basal insulin given hyperglycemia. Possibly transition to prednisone tomorrow. Patient is tolerating BiPAP at this time. We will continue with this therapy. Okay to continue statin from my perspective. Code Visit Inpatient E&M: 87957 Subs Hosp L2
--- NOTE | 2019-04-19 16:24 | NURSING ---
Called report to Brunilda in OR
[2019-04-19 16:35] LABS: Bedside Glucose 462 mg/dL (70-110)
[2019-04-19] MEDS: 0.9% Normal Saline 1,000 ML 30 ML IV (16:37)
[2019-04-19 16:50] LABS: Prothrombin Time Fingerstick 25.2 SEC (11.9-14.4)
[2019-04-19] MEDS: Bupivacaine Mpf 0.5% 30 ML VIAL (17:10)
[2019-04-19] MEDS: Heparin 10,000 UNITS/10 ML Vial 10000 UNITS (17:20)
--- NOTE | 2019-04-19 17:35 | PCM.OPRPT ---
Problem List (1) MOUNA (acute kidney injury) Status: Acute Report of Operation Date of Procedure: 04/19/19 Pre-Operative Diagnosis: Acute kidney injury Post-Operative Diagnosis: Same Surgery/Procedure Performed:: Right internal jugular tunneled dialysis catheter placement. Palindrome. Reference #[id number]. Lot #[id number]. Expiry date 06/16/2023 Description of Surgical Findings:: Timeout informed consent was obtained. 59-year-old gent was taken out from placement table underwent general anesthesia care. Clindamycin 900 g given intravenously preoperatively. The right neck was sterilely prepped and draped. 1% lidocaine mixed 50-50 with 0.5% Marcaine was used as local anesthetic. 28 cc was used. Ultrasound was used to identify right internal jugular vein under ultrasound guidance local was instilled micropuncture needle inserted micropuncture wire inserted fluoroscopy demonstrated good positioning. Local instilled down upon the chest wall. The 19 cm pre-curved palindrome catheter was tunneled from the chest to the neck. Micropuncture sheath was inserted. 035 J-wire was inserted. Serial dilatation was performed with fluoroscopic control. Sheath dilator was inserted under fluoroscopic control. The wire dilator removed. The catheter advanced through the sheath. The sheath was split. The catheter was positioned so that the tip would be close to the SVC atrial junction. It aspirated easily. It was flushed with saline. It was then flushed with 2 cc of heparinized saline per channel. The neck site was closed interrupted 5-0 Vicryl subdermal stitch. The catheter was secured to the exit site with 3-0 nylon. Silver impregnated dressing was applied at both sites. Gelfoam was applied to the neck site. OpSite dressings applied. Pressure dressings applied. The patient was then moved to his bed and put in a strict head of bed elevation position. Sponge and instrument and needle counts reported the surgeon be correct. Blood loss 100 cc. He tolerated procedure well was taken to recovery area in satisfactory condition apparent complication. Stat portable chest x-ray is pending. There is clear evidence of congestive heart failure and/or used a central venous pressure. Recommendations will be for proceeding with urgent hemodialysis. Rony Kingston M.D., F.A.C.S. Type of Anesthesia:: Local MAC Anesthesiologist: John Rodriguez
[2019-04-19 17:55] LABS: Bedside Glucose 479 mg/dL (70-110)
--- NOTE | 2019-04-19 17:55 | RAD_ITS ---
STUDY: X-RAY CHEST REASON FOR EXAM: Male, 59 years old. Postop hemodialysis catheter placement. TECHNIQUE: Single AP portable view of the chest. COMPARISON: April 17, 2019. FINDINGS: There is now a right jugular hemodialysis catheter with its tip in the proximal superior vena cava. There is no visualized pneumothorax. There is no change in the bilateral pulmonary infiltrates when compared to prior study. There is no demonstrated pleural abnormality. Stable cardiomegaly. Stable median sternotomy. Normal mediastinum and kelsie. Without Central vascular prominence which appears decreased from the prior study. Normal visualized aortic arch and descending thoracic aorta. Normal visualized thoracic spine. Normal visualized ribs, clavicles, and shoulders. There is no demonstrated abnormality of the visualized soft tissue structures of the upper abdomen. RAD/Chest 1 View (Portable) IMPRESSION: 1. Right jugular hemodialysis catheter without pneumothorax. Right decrease in vascular congestion when compared to prior study. Electronically Signed: Robert Bradley DO at 19:22 EST Tel [phone], Service support ,
[2019-04-19] MEDS: Insulin Lispro 100 UNIT/ML INSULN.PEN 12 UNIT SC (18:55)
[2019-04-19 22:26] LABS: Bedside Glucose 459 mg/dL (70-110)
[2019-04-19 23:39] LABS: Glucose 473 mg/dL (74-106)
[2019-04-19] MEDS: Atorvastatin Calcium 20 MG Tablet PO (23:54)
[2019-04-20] VITALS (26 sets, daily range): BP systolic 86–123; BP diastolic 43–76; PULSE 61–143; RESP 12–26; TEMP 36.3–36.8; O2SAT 90–98
[2019-04-20] MEDS: Insulin Lispro 100 UNIT/ML INSULN.PEN SC ×5 (00:20→22:38)
--- NOTE | 2019-04-20 01:36 | NURSING ---
Pt. took off bipap mask at this time. Pt. states I can't take it any more and placed his oxygen NC on at 5L. Pt is in no distress. A/O x 3. Will monitor.
--- NOTE | 2019-04-20 03:37 | CPS ---
pt said he was unable to tolerate bipap tonight. bipap off and nasal o2 applied
--- NOTE | 2019-04-20 04:58 | EKG12_ITS ---
Test Reason : RHYTHMN CHANGE Blood Pressure : / mmHG Vent. Rate : 078 BPM Atrial Rate : 078 BPM P-R Int : 182 ms QRS Dur : 124 ms QT Int : 382 ms P-R-T Axes : 029 115 067 degrees QTc Int : 435 ms Normal sinus rhythm Right bundle branch block Abnormal ECG When compared with ECG of 20-APR-2019 05:31, MANUAL COMPARISON REQUIRED, DATA IS UNCONFIRMED Confirmed by FELIBERTO HAMLIN, ELAINA ([id number]), greeting card editor MARINA BEE ([id number]) on 04/21/2019 1:22:23 PM Referred By: Regulo Figueroa Confirmed By:SE DAO MD
--- NOTE | 2019-04-20 05:03 | NURSING ---
Pt. sitting in chair, went into wide complex tachycardia , same as 2 nights ago. HR 141. Pt. asymptomatic. Obtaining EKG. Dr. Vuong paged.
[2019-04-20] MEDS: Adenosine 6 MG/2 ML Syringe IV (05:24)
[2019-04-20] MEDS: Adenosine 6 MG/2 ML Syringe 12 MG IV (05:25)
--- NOTE | 2019-04-20 05:40 | EKG12_ITS ---
Test Reason : CHF Blood Pressure : / mmHG Vent. Rate : 073 BPM Atrial Rate : 073 BPM P-R Int : 180 ms QRS Dur : 120 ms QT Int : 410 ms P-R-T Axes : 038 110 069 degrees QTc Int : 451 ms Normal sinus rhythm with sinus arrhythmia Low voltage QRS Right bundle branch block Abnormal ECG When compared with ECG of 18-APR-2019 07:15, Premature atrial complexes are no longer Present Confirmed by FELIBERTO HAMLIN, ELAINA ([id number]), production editor MARINA BEE ([id number]) on 04/21/2019 1:27:55 PM Referred By: Regulo Figueroa Confirmed By:SE DAO MD
[2019-04-20] MEDS: dilTIAZem 25 MG/5 ML Vial IV BOLUS (05:42)
[2019-04-20] MEDS: 0.9% Saline Lock 10 ML Syringe IV ×3 (05:43→15:10)
--- NOTE | 2019-04-20 06:01 | NURSING ---
This nurse called pt. sig. other, Zina Torres, and informed her of pt. HR in 140s, adenosine and cardizem given, pt. HR came back down to 70s, and pt asymptomatic throughout episode. Zina stated she would be coming up to hospital soon and had no further questions.
--- NOTE | 2019-04-20 06:03 | PCM.PN.SRG ---
Patient Problems: Active and Suspected Problems (Last Reviewed 04/16/19 @ 11:18 by Regulo Figueroa MD) CHF (congestive heart failure) (Acute) MOUNA (acute kidney injury) (Acute) Subjective: Dr Vuong present managing new onset tachycardia Pt did not get dialyzed last night No bleeding noted with pressure dressings intact Recommend dialysis initiation--high venous pressures noted at the time of surgery - Physical Exam Vitals/I&O's: Vital Signs Temp Pulse Resp BP Pulse Ox 98.2 F 142 H 15 121/62 H 90 04/20/19 05:05 04/20/19 05:33 04/20/19 05:28 04/20/19 05:33 04/20/19 05:28 Oxygen Flow Rate (L/min) 5 Oxygen Delivery Method Nasal Cannula Weight: 359 lb 12.71 oz Body Mass Index (BMI) 53.4 Finger Stick Blood Glucose 479 Intake and Output for Last 24 Hours 04/18/19 04/19/19 04/20/19 23:59 23:59 23:59 Intake Total 3750.00 / 3762.25 965.30 / 965.30 Output Total 750 / 750 875 / 875 Balance 3000.00 / 3012.25 90.30 / 90.30 Microbiology Past 72 Hours 04/18/19 21:15 Sputum, Expectorated/Coughed Gram Stain - Final 04/17/19 14:19 Mucosa - Nose Influenza Types A,B Direct FA (JL) - Final Laboratory Results 04/19/19 06:10: WBC 9.3, RBC 4.23 L, Hgb 11.5 L, Hct 39.4 L, MCV 93.1, MCH 27.2, MCHC 29.2 L, RDW Std Deviation 51.1 H, RDW Coeff of Janiya 15.1 H, Plt Count 231, MPV 9.1, Immature Gran % (Auto) 0.900, Neut % (Auto) 91.3 H, Lymph % (Auto) 3.1 L, [place] % (Auto) 4.6, Eos % (Auto) 0.0, Baso % (Auto) 0.1, Absolute Neuts (auto) 8.5 H, Absolute Lymphs (auto) 0.29 L, Nucleated RBC % 0.3, Platelet Estimate ADEQUATE, Hypochromasia RARE 04/19/19 06:10: PT 24.6 H, INR 2.2 04/19/19 06:10: Sodium 131 L, Potassium 5.2 H, Chloride 91 L, Carbon Dioxide 37.0 H, Anion Gap 3 L, BUN 79 H, Creatinine 4.04 H, Estim Creat Clear Calc 18.58, Est GFR (MDRD) Af Amer 20 L, Est GFR (MDRD) Non-Af 16 L, BUN/Creatinine Ratio 19.6, Glucose 405 H, Calcium 8.3 L 04/19/19 06:10: Hemoglobin A1c 9.7 H 04/19/19 06:49: POC Glucose 368 H 04/19/19 10:38: POC Glucose 445 H 04/19/19 12:55: Hep B Core Total Ab Pending 04/19/19 12:55: Hep Bs Antigen Non-Reactive, Hep Bs Antibody Non-Reactive 04/19/19 12:55: Double Strand DNA Ab Pending 04/19/19 12:55: c-ANCA Antibody Pending, p-ANCA Antibody Pending, Complement C3 Pending, Complement C4 Pending 04/19/19 14:45: APTT 35.3 04/19/19 15:16: POC Glucose 443 H 04/19/19 16:31: POC Glucose 462 H* 04/19/19 16:44: POC PT 25.2 H, INR 2.20 04/19/19 17:49: POC Glucose 479 H* 04/19/19 22:22: POC Glucose 459 H* 04/19/19 22:55: Glucose 473 H* Current Medications Acetaminophen (Tylenol) 650 mg PO Q6H PRN PRN PRN Reason: Pain Score 1-3/Temp > 100.7 F Last Admin: 04/18/19 08:32 Dose: 650 mg Documented by: Al Hydroxide/Mg Hydroxide (Mylanta Ii) 30 ml PO Q6H PRN PRN PRN Reason: Gastric Burning Albuterol Sulfate (Ventolin Aerosols) 2.5 mg INHALATION Q2H PRN PRN PRN Reason: SOB/Wheezing Last Admin: 04/17/19 05:35 Dose: 2.5 mg Documented by: Albuterol/Ipratropium (Duoneb) 3 ml INHALATION Q4H.RT DANIEL Last Admin: 04/20/19 03:41 Dose: Not Given Documented by: Amiodarone HCl (Cordarone) 200 mg PO BID [facility] Last Admin: 04/19/19 23:52 Dose: 200 mg Documented by: Atorvastatin Calcium (Lipitor) 20 mg PO QHS [facility] Last Admin: 04/19/19 23:54 Dose: 20 mg Documented by: Glucagon () 1 mg IM .X1 PRN PRN Reason: Hypoglycemia Guaifenesin (Robitussin) 20 ml PO Q4H PRN PRN PRN Reason: COUGH Dextrose (Dextrose 10%-Water) 250 mls @ 999 mls/hr IV .Q16M PRN; Protocol PRN Reason: HYPOGLYCEMIA Sodium Chloride () 1,000 mls @ 15 mls/hr IV .Q48H [facility] Last Admin: 04/19/19 16:37 Dose: 30 mls/hr Documented by: Insulin Glargine (Lantus ([facility])) 10 units SC QHS [facility] Last Admin: 04/20/19 00:39 Dose: 10 units Documented by: Insulin Human Lispro (Humalog Kwikpen ([facility])) 0 unit SC [facility]; Protocol Last Admin: 04/20/19 00:20 Dose: 11 units Documented by: Magnesium Hydroxide (Milk Of Magnesia) 30 ml PO DAILY PRN PRN PRN Reason: Constipation Melatonin (Melatonin) 3 mg PO QHS PRN PRN PRN Reason: INSOMNIA Methylprednisolone (Solu-Medrol) 40 mg IV Q8 [facility] Last Admin: 04/20/19 05:52 Dose: 40 mg Documented by: Metoprolol Succinate (Toprol Xl (Beta Rakesh)) 100 mg PO DAILY [facility] Last Admin: 04/19/19 09:13 Dose: Not Given Documented by: Nitroglycerin (Nitrostat) 0.4 mg SUBLINGUAL Q5M PRN PRN Reason: CARDIAC/CHEST PAIN Ondansetron HCl (Zofran) 4 mg IV Q8H PRN PRN PRN Reason: NAUSEA/VOMITING Oxycodone HCl (Oxyir) 5 mg PO Q4H PRN PRN PRN Reason: Pain Score 4-5/10 Last Admin: 04/19/19 07:54 Dose: 5 mg Documented by: Oxycodone HCl (Oxyir) 10 mg PO Q4H PRN PRN PRN Reason: Pain Score 6-10/10 Sodium Chloride () 10 - 40 ml IV UD PRN PRN Reason: SALINE FLUSH Last Admin: 04/20/19 05:56 Dose: 10 ml Documented by: Warfarin Sodium (Coumadin (Pbkc)) 2.5 mg PO TuWe@0 DANIEL Warfarin Sodium (Coumadin (Pbkc)) 5 mg PO SuMoThFrSa@2200 DANI[facility] Last Admin: 04/17/19 21:17 Dose: 5 mg Documented by: Medical Necessity - Tobacco Use Smoking Status: Former smoker Assessment/Plan All Active Problems (Last Reviewed 04/16/19 @ 11:18 by Regulo Figueroa MD) CHF (congestive heart failure) (Acute) MOUNA (acute kidney injury) (Acute) Acute respiratory failure (Resolved) Pneumonia, community acquired (Resolved) Sepsis (Resolved)
--- NOTE | 2019-04-20 07:34 | PN.CARD_ITS ---
Subjectve: Had another episode of narrow complex tachycardia with rate about 143 bpm which did not respond to intravenous adenosine but responded to IV diltiazem. Patient currently in sinus rhythm Objective: Vital Signs Temp Pulse Resp BP Pulse Ox 98.2 F 75 25 H 112/49 L 92 04/20/19 05:05 04/20/19 06:04 04/20/19 06:04 04/20/19 06:04 04/20/19 06:04 Oxygen Flow Rate (L/min) 5 Oxygen Delivery Method Bi-pap Weight: 359 lb 12.71 oz Body Mass Index (BMI) 53.4 Finger Stick Blood Glucose 479 Intake and Output for Last 24 Hours 04/18/19 04/19/19 04/20/19 23:59 23:59 23:59 Intake Total 3750.00 / 3762.25 965.30 / 965.30 220 / 220 Output Total 750 / 750 875 / 875 0 / 0 Balance 3000.00 / 3012.25 90.30 / 90.30 220 / 220 General: Awake, Alert, Oriented x 3 HEENT: PERRL, EOMI, Sclera Non Icteric Neck: Supple, Good ROM, No Lymph Node Enlargement Lungs: Clear to auscultation Cardiovascular: Regular Rhythm, Normal S1, Normal S2, No Murmurs, No Rubs, No Gallops Vascular: No Carotid Bruits, Normal Femoral Pulses, Normal Radial Pulses, Normal Dorsalis Pedal Pulse, Normal Posterior Tibial Pulses Abdomen: Bowel Sounds Present, Soft, Non Tender, No HSM, No Organomegaly Extremities: No Cyanosis, No Clubbing, No edema Musculoskeletal: No Erythema Skin: No Rashes Lymphatic: No Lymph Node Enlargement Neurological: No Focal Motor or Sensory Deficit Psych/Mental Status: Appropriate 04/19/19 06:10: Hemoglobin A1c 9.7 H 04/19/19 14:45: APTT 35.3 04/19/19 16:44: INR 2.20 04/19/19 22:55: Glucose 473 H* Rhythm: EKG: ECHO: Stress Test: Cardiac Cath: PCI: CT Surgery: Holter monitor: EPS: PPM: CXR: Chest CT Scan: Medical Necessity - Tobacco Use Smoking Status: Former smoker Assessment/Plan 1. Shortness of breath * The etiology of the above is unlikely to be primary cardiac in etiology. His natruretic peptide level was normal, his echocardiogram demonstrated preserved ejection fraction. He may have a problem with obesity hypoventilation syndrome. With consequence hypercapnia. * Will hold off on further diuresis * 2. Supraventricular tachycardia and atrial fibrillation * Patient is anticoagulated for the above * He is also on a beta-jackson. He is status post failed ablation. I would recommend that we start him on amiodarone short-term to see whether this would be able to control his heart rate. Depending on the findings further recommendations will be made. * He did have an episode of a wide complex tachycardia which was likely a supraventricular tachycardia with aberrancy. He briefly responded to adenosine but responded to high-dose adenosine combined with intravenous amiodarone. * He was given oral amiodarone to which he is tolerating quite well. * Will start p.o. diltiazem as well to see whether this would be able to take care of his rhythm. Eventually he may need to be considered for reevaluation for ablation 3. Hypertension * Good control on the current medical therapy. No major changes will be made at this time. * * From the cardiac standpoint he appears to be stable and I would not make any major changes. * Thank you for allowing me to participate in the care of your patient. Please don't hesitate to call if any issues arise
[2019-04-20 07:40] LABS: Bedside Glucose 410 mg/dL (70-110)
[2019-04-20 07:53] LABS: Absolute Lymphocyte Count 0.21 X10^3/uL (0.83-4.51); Absolute Neutrophil Count 8.2 X10^3/uL (2.0-7.7); Basophil# 0.01 X10^3/uL; Basophil% 0.1 % (0-1); Hematocrit 37.5 % (40-54); Hemoglobin 11.1 g/dL (13.0-16.5); Lymphocyte # 0.21 X10^3/ul (4.0); Lymphocyte % 2.3 % (19-41); Mean Corp Hgb Conc 29.6 g/dL (32-36); Mean Corpuscular Volume 91.2 fL (80-94); Mean Platelet Vol. 9.4 fl (6.2-12.0); Monocyte# 0.72 X10^3/uL; Monocyte% 7.8 % (0-10); NRBC Flagged by Analyzer 0.4 % (0-5); Neutrophil # 8.23 X10^3/uL (2.7-7.7); Neutrophil % 88.9 % (47-70); POSITIVE DIFFERENTIAL YES; Platelet Count 238 K/mm3 (150-450); RBC Distribution Width CV 15.1 % (11.6-14.6); RBC Distribution Width SD 50.1 fl (35.1-43.9); Red Blood Count 4.11 M/mm3 (4.6-6.2); White Blood Count 9.3 K/mm3 (4.4-11.0)
[2019-04-20 08:02] LABS: Anion Gap 6 (5-15); BUN 100 mg/dL (7-18); BUN/Creat Ratio 25.3 RATIO (10-20); Calcium,Total 8.3 mg/dL (8.5-10.1); Chloride 90 mmol/L (98-107); Creatinine, Serum 3.95 mg/dL (0.70-1.30); EST Glomerular Filtration Rate 17 mL/min (>60); Est Glom Filt Rate - Afr Amer 20 mL/min (>60); Glucose 411 mg/dL (74-106); Potassium 5.5 mmol/L (3.5-5.1); Sodium Level 131 mmol/L (136-145)
[2019-04-20 08:12] LABS: Differential Indicated SCAN CRITERIA MET
[2019-04-20 08:12] LABS: Hepatitis B Core Ab Total Positive (Negative)
--- NOTE | 2019-04-20 10:50 | PN_ITS ---
Patient Problems: Active and Suspected Problems (Last Reviewed 04/16/19 @ 11:18 by Regulo Figueroa MD) CHF (congestive heart failure) (Acute) MOUNA (acute kidney injury) (Acute) Subjective: Patient reports worsening oxygenation this morning and associated shortness of breath. Patient did have SVT overnight and indicates a significant change in respiratory status associated with this event. Patient is not had any significant change in cough. Patient did have a hemodialysis catheter placed yesterday, but no dialysis was completed. Patient is currently being prepared for dialysis on my evaluation. - Physical Exam Vitals/I&O's: Vital Signs Temp Pulse Resp BP Pulse Ox 36.4 C L 77 18 99/43 L 96 04/20/19 10:00 04/20/19 10:00 04/20/19 10:00 04/20/19 10:00 04/20/19 10:00 Oxygen Flow Rate (L/min) 5 Oxygen Delivery Method Nasal Cannula Weight: 163.2 kg Body Mass Index (BMI) 53.4 Finger Stick Blood Glucose 479 Intake and Output for Last 24 Hours 04/18/19 04/19/19 04/20/19 23:59 23:59 23:59 Intake Total 3750.00 / 3762.25 965.30 / 965.30 220 / 220 Output Total 750 / 750 875 / 875 0 / 0 Balance 3000.00 / 3012.25 90.30 / 90.30 220 / 220 General: Alert, Oriented x3, Cooperative, - - Patient was a little slower to respond today. Dozing off during my evaluation. HEENT: Atraumatic, PERRLA, EOMI, Normocephalic, - - No scleral icterus or injection noted. Glasses in place. Oral: Moist Mucosa, No Gingival or Mucosal Lesions/ Ulcerations Neck: Supple, No JVD, No Nodes, Trachea Midline Lungs: No rhonchi, No wheeze, Diminished, Rales, - - Fair effort Cardiovascular: Normal S1, Normal S2, No murmurs, Irregular Rate, No rub noted, No Gallop Abdomen: Bowel Sounds Present, Soft, Non Tender, Non-Distended, Obese Extremities: No cyanosis, Capillary Refill Less than 3 Seconds, Edema Skin: No rashes, No breakdown Musculoskeletal: No Tenderness to Palpation of Joints or Extremities Lymphatic: No Cervical, Supraclavicular, or Inguinal Adenopathy Neurological: Cranial nerves II-XII grossly intact, Neuro grossly intact, Motor Exam 5/5 strength throughout Psych/Mental Status: Appropriate, Flat Affect Microbiology Past 72 Hours 04/18/19 21:15 Sputum, Expectorated/Coughed Gram Stain - Final 04/18/19 21:15 Sputum, Expectorated/Coughed Respiratory Culture - Preliminary Gram negative cocco bacillus 04/18/19 08:06 Blood Culture (Wb) - Left Hand Blood Culture - Preliminary No growth in 48 hours. 04/18/19 08:00 Blood Culture (Wb) - Right Hand Blood Culture - Preliminary No growth in 48 hours. 04/17/19 14:19 Mucosa - Nose Influenza Types A,B Direct FA (JL) - Final Laboratory Results 04/19/19 06:10: Hemoglobin A1c 9.7 H 04/19/19 10:38: POC Glucose 445 H 04/19/19 12:55: Hep B Core Total Ab Positive H 04/19/19 12:55: Hep Bs Antigen Non-Reactive, Hep Bs Antibody Non-Reactive 04/19/19 12:55: Double Strand DNA Ab Pending 04/19/19 12:55: c-ANCA Antibody Pending, p-ANCA Antibody Pending, Complement C3 Pending, Complement C4 Pending 04/19/19 14:45: APTT 35.3 04/19/19 15:16: POC Glucose 443 H 04/19/19 16:31: POC Glucose 462 H* 04/19/19 16:44: POC PT 25.2 H, INR 2.20 04/19/19 17:49: POC Glucose 479 H* 04/19/19 22:22: POC Glucose 459 H* 04/19/19 22:55: Glucose 473 H* 04/20/19 07:29: POC Glucose 410 H 04/20/19 07:35: WBC 9.3, RBC 4.11 L, Hgb 11.1 L, Hct 37.5 L, MCV 91.2, MCH 27.0, MCHC 29.6 L, RDW Std Deviation 50.1 H, RDW Coeff of Janiya 15.1 H, Plt Count 238, MPV 9.4, Immature Gran % (Auto) 0.900, Neut % (Auto) 88.9 H, Lymph % (Auto) 2.3 L, [place] % (Auto) 7.8, Eos % (Auto) 0.0, Baso % (Auto) 0.1, Absolute Neuts (auto) 8.2 H, Absolute Lymphs (auto) 0.21 L, Nucleated RBC % 0.4, Differential Comment COMMENT 04/20/19 07:35: Sodium 131 L, Potassium 5.5 H, Chloride 90 L, Carbon Dioxide 35.0 H, Anion Gap 6, BUN 100 H, Creatinine 3.95 H, Estim Creat Clear Calc 19.00, Est GFR (MDRD) Af Amer 20 L, Est GFR (MDRD) Non-Af 17 L, BUN/Creatinine Ratio 25.3 H, Glucose 411 H, Calcium 8.3 L Current Medications Acetaminophen (Tylenol) 650 mg PO Q6H PRN PRN PRN Reason: Pain Score 1-3/Temp > 100.7 F Last Admin: 04/18/19 08:32 Dose: 650 mg Documented by: Al Hydroxide/Mg Hydroxide (Mylanta Ii) 30 ml PO Q6H PRN PRN PRN Reason: Gastric Burning Albuterol Sulfate (Ventolin Aerosols) 2.5 mg INHALATION Q2H PRN PRN PRN Reason: SOB/Wheezing Last Admin: 04/17/19 05:35 Dose: 2.5 mg Documented by: Albuterol/Ipratropium (Duoneb) 3 ml INHALATION Q4H.RT [facility] Last Admin: 04/20/19 10:31 Dose: Not Given Documented by: Amiodarone HCl (Cordarone) 200 mg PO BID [facility] Last Admin: 04/19/19 23:52 Dose: 200 mg Documented by: Atorvastatin Calcium (Lipitor) 20 mg PO QHS [facility] Last Admin: 04/19/19 23:54 Dose: 20 mg Documented by: Diltiazem HCl (Cardizem Cd) 120 mg PO Q12 [facility] Glucagon () 1 mg IM .X1 PRN PRN Reason: Hypoglycemia Guaifenesin (Robitussin) 20 ml PO Q4H PRN PRN PRN Reason: COUGH Dextrose (Dextrose 10%-Water) 250 mls @ 999 mls/hr IV .Q16M PRN; Protocol PRN Reason: HYPOGLYCEMIA Sodium Chloride () 1,000 mls @ 15 mls/hr IV .Q48H [facility] Last Admin: 04/19/19 16:37 Dose: 30 mls/hr Documented by: Insulin Glargine (Lantus (Bkc)) 25 units SC BID [facility] Insulin Human Lispro (Humalog Kwikpen (Bkc)) 0 unit SC ACHS [facility]; Protocol Last Admin: 04/20/19 07:33 Dose: 16 units Documented by: Magnesium Hydroxide (Milk Of Magnesia) 30 ml PO DAILY PRN PRN PRN Reason: Constipation Melatonin (Melatonin) 3 mg PO QHS PRN PRN PRN Reason: INSOMNIA Methylprednisolone (Solu-Medrol) 40 mg IV Q12 [facility] Metoprolol Succinate (Toprol Xl (Beta Rakesh)) 100 mg PO DAILY [facility] Last Admin: 04/19/19 09:13 Dose: Not Given Documented by: Nitroglycerin (Nitrostat) 0.4 mg SUBLINGUAL Q5M PRN PRN Reason: CARDIAC/CHEST PAIN Ondansetron HCl (Zofran) 4 mg IV Q8H PRN PRN PRN Reason: NAUSEA/VOMITING Oxycodone HCl (Oxyir) 5 mg PO Q4H PRN PRN PRN Reason: Pain Score 4-5/10 Last Admin: 04/19/19 07:54 Dose: 5 mg Documented by: Oxycodone HCl (Oxyir) 10 mg PO Q4H PRN PRN PRN Reason: Pain Score 6-10/10 Sodium Chloride () 10 - 40 ml IV UD PRN PRN Reason: SALINE FLUSH Last Admin: 04/20/19 05:56 Dose: 10 ml Documented by: Warfarin Sodium (Coumadin (Pbkc)) 2.5 mg PO TuWe@2200 [facility] Warfarin Sodium (Coumadin (Pbkc)) 5 mg PO SuMoThFrSa@2200 [facility] Last Admin: 04/17/19 21:17 Dose: 5 mg Documented by: Clinical Impression(s) from Imaging Studies Chest X-Ray 04/19/19 17:55 IMPRESSION: 1. Right jugular hemodialysis catheter without pneumothorax. Right decrease in vascular congestion when compared to prior study. Electronically Signed: Robert Bradley DO at 19:22 EST Tel [phone], Service support , Medical Necessity - Tobacco Use Smoking Status: Former smoker Assessment/Plan All Active Problems (Last Reviewed 04/16/19 @ 11:18 by Regulo Figueroa MD) CHF (congestive heart failure) (Acute) MOUNA (acute kidney injury) (Acute) Acute respiratory failure (Resolved) Pneumonia, community acquired (Resolved) Sepsis (Resolved) RECOMMENDATIONS: 1. Volume removal with hemodialysis 2. Continue BiPAP with sleep. Patient advised to initiate BiPAP with hemodialysis 3. Continue empiric steroid therapy. Possible transition to prednisone tomorrow 4. Consider volume removal with hemodialysis 5. Continue bronchodilator therapy 6. Increase dose of basal insulin 7. Obtain ABG if mental status continues to deteriorate IMPRESSIONS: 1. Acute on chronic hypercarbic respiratory failure Unclear etiology at this time. Patient does have clinical signs and symptoms of increased volume status with recent travel. Work-up for pulmonary embolism was negative. Patient did appear to respond well to steroid therapy. Patient will be transitioned over to prednisone to complete a burst. Patient appears to be slightly somnolent at this time. This may be indicative of CO2 retention. Patient was asked to initiate BiPAP therapy. Would consider volume removal if okay with nephrology. Encourage incentive spirometer given need for tunneled hemodialysis line 2. Acute on chronic kidney disease stage III/hyperkalemia Baseline creatinine of 1.3, but significant worsening after diuretic therapy. Patient does have a renal ultrasound showing no hydronephrosis. Given lack of hydronephrosis, would consider diuretic therapy versus volume removal with hemodialysis if okay with nephrology. Hyperkalemia is slightly improved compared to previous. 3. Chronic A. fib/chronic diastolic congestive heart failure/history of VSD repair/pulmonary hypertension Patient anticoagulated and doing well. No signs or symptoms of bleeding at this time. Patient may have an element of pulmonary hypertension leading to current findings. Diuretics have previously been held secondary to renal function. Patient is on significant beta-rakesh at this time. Cardiology could perform a right heart catheterization for further clarification on volume status. Patient's echo is limited given body habitus. 4. Hypertension/type 2 diabetes mellitus/hyperlipidemia/morbid obesity/ noncompliant LASHAWN Complicates care, management, recovery and prognosis. Consider additional basal insulin given hyperglycemia. Possibly transition to prednisone tomorrow. Patient is tolerating BiPAP at this time. We will continue with this therapy. Okay to continue statin from my perspective. Code Visit Inpatient E&M: 52520 Subs Hosp L3
[2019-04-20 12:15] LABS: Bedside Glucose 349 mg/dL (70-110)
[2019-04-20] MEDS: Heparin 10,000 UNITS/10 ML Vial IV (12:31)
[2019-04-20] MEDS: Ipratropium/Albuterol Sulfate 3 ML AMPUL.NEB INHALATION (12:59)
[2019-04-20] MEDS: dilTIAZem CD 120 MG Capsule PO ×2 (13:43→22:29)
[2019-04-20] MEDS: predniSONE 20 MG Tablet 40 MG PO (13:43)
[2019-04-20] MEDS: Amiodarone 200 MG Tablet PO ×2 (13:44→22:30)
[2019-04-20] MEDS: Metoprolol(XL)Succ 100 MG Tablet PO (13:44)
--- NOTE | 2019-04-20 14:02 | PN_ITS ---
Patient Problems: Active and Suspected Problems (Last Reviewed 04/16/19 @ 11:18 by Regulo Figueroa MD) CHF (congestive heart failure) (Acute) MOUNA (acute kidney injury) (Acute) Subjective: Patient seen and examined. He did go into SVT again overnight requiring another dose of adenosine. He got more short of breath and so was on BiPAP at time of review this morning. He denied any chest pain no palpitations or lower extremity edema. He denied any abdominal pain. Review systems otherwise negative. Labs and vitals reviewed. Calcium is 5.5 today and sodium is 131. Creatinine is 3.95. He is in cumulative positive balance by 4.3 L today. Vitals/I&O's: Vital Signs Temp Pulse Resp BP Pulse Ox 97.5 F L 81 20 H 112/62 95 04/20/19 10:00 04/20/19 13:44 04/20/19 13:30 04/20/19 13:30 04/20/19 13:48 Oxygen Flow Rate (L/min) 6 Oxygen Delivery Method Bi-pap Weight: 359 lb 12.71 oz Body Mass Index (BMI) 53.4 Finger Stick Blood Glucose 479 Intake and Output for Last 24 Hours 04/18/19 04/19/19 04/20/19 23:59 23:59 23:59 Intake Total 3750.00 / 3762.25 965.30 / 965.30 220 / 220 Output Total 750 / 750 875 / 875 0 / 0 Balance 3000.00 / 3012.25 90.30 / 90.30 220 / 220 General: Alert, Oriented x3, Cooperative HEENT: Atraumatic, PERRLA, EOMI, Normocephalic Oral: Moist Mucosa Neck: Supple, No JVD, Negative Carotid Bruits Lungs: - - decreased breath sounds bibasally, no wheezes or crackles. on BIPAP Cardiovascular: Regular Rhythm, Normal S1, Normal S2, No murmurs, regular rate Abdomen: Bowel Sounds Present, Soft, Non Tender, Non-Distended, No Hepato- splenomegaly, Obese Extremities: No clubbing, No cyanosis, Edema - bipedal 2+ pitting edema Skin: No rashes, No breakdown Musculoskeletal: No Tenderness to Palpation of Joints or Extremities Lymphatic: No Cervical, Supraclavicular, or Inguinal Adenopathy Neurological: Cranial nerves II-XII grossly intact, Neuro grossly intact, Motor Exam 5/5 strength throughout Psych/Mental Status: Agitated - due to pain from catheter, Alert and oriented to time, place, person, mood and affect Microbiology Past 72 Hours 04/18/19 21:15 Sputum, Expectorated/Coughed Gram Stain - Final 04/18/19 21:15 Sputum, Expectorated/Coughed Respiratory Culture - Preliminary Gram negative cocco bacillus 04/18/19 08:06 Blood Culture (Wb) - Left Hand Blood Culture - Preliminary No growth in 48 hours. 04/18/19 08:00 Blood Culture (Wb) - Right Hand Blood Culture - Preliminary No growth in 48 hours. 04/17/19 14:19 Mucosa - Nose Influenza Types A,B Direct FA (JL) - Final Laboratory Results 04/19/19 06:10: Hemoglobin A1c 9.7 H 04/19/19 12:55: Hep B Core Total Ab Positive H 04/19/19 14:45: APTT 35.3 04/19/19 15:16: POC Glucose 443 H 04/19/19 16:31: POC Glucose 462 H* 04/19/19 16:44: POC PT 25.2 H, INR 2.20 04/19/19 17:49: POC Glucose 479 H* 04/19/19 22:22: POC Glucose 459 H* 04/19/19 22:55: Glucose 473 H* 04/20/19 07:29: POC Glucose 410 H 04/20/19 07:35: WBC 9.3, RBC 4.11 L, Hgb 11.1 L, Hct 37.5 L, MCV 91.2, MCH 27.0, MCHC 29.6 L, RDW Std Deviation 50.1 H, RDW Coeff of Janiya 15.1 H, Plt Count 238, MPV 9.4, Immature Gran % (Auto) 0.900, Neut % (Auto) 88.9 H, Lymph % (Auto) 2.3 L, [place] % (Auto) 7.8, Eos % (Auto) 0.0, Baso % (Auto) 0.1, Absolute Neuts (auto) 8.2 H, Absolute Lymphs (auto) 0.21 L, Nucleated RBC % 0.4, Differential Comment COMMENT 04/20/19 07:35: Sodium 131 L, Potassium 5.5 H, Chloride 90 L, Carbon Dioxide 35.0 H, Anion Gap 6, BUN 100 H, Creatinine 3.95 H, Estim Creat Clear Calc 19.00, Est GFR (MDRD) Af Amer 20 L, Est GFR (MDRD) Non-Af 17 L, BUN/Creatinine Ratio 25.3 H, Glucose 411 H, Calcium 8.3 L 04/20/19 11:53: POC Glucose 349 H Diagnostic Data Chest CT 04/17/19 07:43 IMPRESSION: Patchy bilateral pulmonary infiltrates. Follow-up is recommended. Electronically Signed: Fortunato Francisco, at 14:26 EST , Service support , Lung Scan-VQ NM 04/17/19 07:51 IMPRESSION: 1. VERY LOW PROBABILITY FOR PULMONARY EMBOLUS (<10%) 99m Tc DTPA aerosol ventilation / 99m Tc MAA pulmonary perfusion imaging examination, according to PIOPED II interpretive criteria with regard given to the presence of > 2 ventilation-perfusion matches without corresponding radiographic changes. (Sotsman et al, Radiology 246: 941, 2008 Sotsman et al, J Nucl Med 49: 1741, 2008). 2. Central clumping of the aerosol may be secondary to obstructive airway mechanics and or clinical tachypnea. Electronically Signed: Neftaly Marin DO at 14:07 EST Tel , Service support , Renal Ultrasound 04/17/19 12:16 IMPRESSION: Findings consistent with nonspecific renal parenchymal disease. No evidence for renal obstruction. Left renal cyst measuring 2.5 x 2.4 x 2.5 cm. Electronically Signed: Adonis Seals MD at 22:52 EST , Service support , Chest X-Ray 04/19/19 17:55 IMPRESSION: 1. Right jugular hemodialysis catheter without pneumothorax. Right decrease in vascular congestion when compared to prior study. Electronically Signed: Robert Bradley DO at 19:22 EST Tel [phone], Service support , Current Medications Acetaminophen (Tylenol) 650 mg PO Q6H PRN PRN PRN Reason: Pain Score 1-3/Temp > 100.7 F Last Admin: 04/18/19 08:32 Dose: 650 mg Documented by: Al Hydroxide/Mg Hydroxide (Mylanta Ii) 30 ml PO Q6H PRN PRN PRN Reason: Gastric Burning Albuterol Sulfate (Ventolin Aerosols) 2.5 mg INHALATION Q2H PRN PRN PRN Reason: SOB/Wheezing Last Admin: 04/17/19 05:35 Dose: 2.5 mg Documented by: Albuterol/Ipratropium (Duoneb) 3 ml INHALATION Q4H.RT [facility] Last Admin: 04/20/19 12:59 Dose: 3 ml Documented by: Amiodarone HCl (Cordarone) 200 mg PO BID [facility] Last Admin: 04/20/19 13:44 Dose: 200 mg Documented by: Atorvastatin Calcium (Lipitor) 20 mg PO QHS [facility] Last Admin: 04/19/19 23:54 Dose: 20 mg Documented by: Diltiazem HCl (Cardizem Cd) 120 mg PO Q12 [facility] Last Admin: 04/20/19 13:43 Dose: 120 mg Documented by: Glucagon () 1 mg IM .X1 PRN PRN Reason: Hypoglycemia Guaifenesin (Robitussin) 20 ml PO Q4H PRN PRN PRN Reason: COUGH Dextrose (Dextrose 10%-Water) 250 mls @ 999 mls/hr IV .Q16M PRN; Protocol PRN Reason: HYPOGLYCEMIA Sodium Chloride () 1,000 mls @ 15 mls/hr IV .Q48H [facility] Last Admin: 04/19/19 16:37 Dose: 30 mls/hr Documented by: Insulin Glargine (Lantus (Bkc)) 25 units SC BID [facility] Last Admin: 04/20/19 11:58 Dose: 25 u Documented by: Insulin Human Lispro (Humalog Kwikpen (Bkc)) 0 unit SC ACHS [facility]; Protocol Last Admin: 04/20/19 11:58 Dose: 12 units Documented by: Magnesium Hydroxide (Milk Of Magnesia) 30 ml PO DAILY PRN PRN PRN Reason: Constipation Melatonin (Melatonin) 3 mg PO QHS PRN PRN PRN Reason: INSOMNIA Metoprolol Succinate (Toprol Xl (Beta Rakesh)) 100 mg PO DAILY [facility] Last Admin: 04/20/19 13:44 Dose: 100 mg Documented by: Nitroglycerin (Nitrostat) 0.4 mg SUBLINGUAL Q5M PRN PRN Reason: CARDIAC/CHEST PAIN Ondansetron HCl (Zofran) 4 mg IV Q8H PRN PRN PRN Reason: NAUSEA/VOMITING Oxycodone HCl (Oxyir) 5 mg PO Q4H PRN PRN PRN Reason: Pain Score 4-5/10 Last Admin: 04/19/19 07:54 Dose: 5 mg Documented by: Oxycodone HCl (Oxyir) 10 mg PO Q4H PRN PRN PRN Reason: Pain Score 6-10/10 Prednisone () 40 mg PO DAILY@0800 [facility] Stop: 04/24/19 08:01 Last Admin: 04/20/19 13:43 Dose: 40 mg Documented by: Sodium Chloride () 10 - 40 ml IV UD PRN PRN Reason: SALINE FLUSH Last Admin: 04/20/19 05:56 Dose: 10 ml Documented by: Warfarin Sodium (Coumadin (Pbkc)) 2.5 mg PO TuWe@2200 [facility] Warfarin Sodium (Coumadin (Pbkc)) 5 mg PO SuMoThFrSa@2200 [facility] Last Admin: 04/17/19 21:17 Dose: 5 mg Documented by: STROKE Vital Signs/Narrative: Vital Signs Pulse Resp BP Pulse Ox 04/20/19 13:48 95 04/20/19 13:44 81 04/20/19 13:30 81 20 H 112/62 90 04/20/19 12:59 77 18 92 04/20/19 11:10 71 24 H 93 Medical Necessity - Tobacco Use Smoking Status: Former smoker Assessment/Plan All Active Problems (Last Reviewed 04/16/19 @ 11:18 by Regulo Figueroa MD) CHF (congestive heart failure) (Acute) MOUNA (acute kidney injury) (Acute) Acute respiratory failure (Resolved) Pneumonia, community acquired (Resolved) Sepsis (Resolved) 1. acute hypoxic and hypercapnic respiratory failure * likely due to Obesity hypoventilation syndrome and MOUNA on CKD with fluid overload. * Got more short of breath yesternight after he went into SVT again. Currently on BiPAP. * 2D echo: EF of 60% with no regional wall motion abnormalities noted. Normal right ventricular size and systolic function. Left and right atria were not well visualized. * Duplex was negative for any PE. * Pulmonology on board. VQ scan showed very low probability for PE. * Continue breathing treatments. Titrate oxygen to maintain saturation above 90%. Use BiPAP PRN. * Of note, sputum culture gram-negative coccobacillus. Further studies pending to rule out Haemophilus. * , Consider starting antibiotics. 2. MOUNA on CKD with hyperkalemia * Creatinine is 3.95 today he had dialysis catheter placed yesterday. * Potassium is 5.5 today. * For dialysis today. * Nephrology on board. * * 3. Respiratory acidosis with compensatory metabolic alkalosis: * Bicarb is 35 today. Stable. * * 4. Nonsustained Vtach * Heart tachycardia again overnight requiring administration of adenosine. * On amiodarone 200 mg twice daily. Cardizem 120 mg every 12 added on per cardiology today. * cardiology on board * 5. Hypertension * Blood pressure still remains borderline low. * Lisinopril, spironolactone and torsemide on hold. On amiodarone and Cardizem last metoprolol on account of A. fib and nonsustained V. tach. * BP meds on hold (lisinopril, spironolactone and torsemide) * On metoprolol o/a of afib 6. Type 2 diabetes mellitus: Metformin on hold on account of MOUNA. Insulin sliding scale. Accu-Cheks AC at bedtime. 7. Hyperlipidemia: On statin. 8. History of severe pulmonary hypertension: to follow up with pulmonology and cardiology after discharge 9. A. fib: * Status post ablation x3. * Has been having episodes of nonsustained V. tach. On p.o. amiodarone 200 mg twice daily, Cardizem 120 mg twice daily and metoprolol. * INR today is 2.2. * On Coumadin. 10. Chronic Heart failure with preserved ejection fraction: * 2D echo in October 2018 showed EF of 50%. * 2D echo during this admission shows EF of 60%with no regional wall motion abnormalities * cardiology on board. * 11. Super morbid obesity: BMI is 52.5. This complicates management, expected recovery and prognosis. 12. LASHAWN: Currently on BiPAP. Pulmonology on board. 13. History of congenital heart disease: * Status post VSD repair at age 18 and PDA repair at age 3. * Stable. * DVT prophylaxis: INR therapeutic. On Coumadin. Code status: full code Code Visit Inpatient E&M: 34638 Subs Hosp L3
--- NOTE | 2019-04-20 14:18 | DIALYSIS ---
Pt tolerated initial 2.5hr HD tx w/ poor flow from RIJ CVC. Arterial port had very sticky/positional pull w/ some resistance with push. Lines reversed and initially there was adequate flow w/ TWISTHAND below alarm limits. As tx continued TWISTHAND continued to creep up until flushed again and treatment restarted. This processed repeated through procedure was the only way to keep TWISTHAND< BFR. D/W Dr. Arevalo. Net UF -2400ml. See flow record for tx data.
--- NOTE | 2019-04-20 15:28 | PN.RENAL_ITS ---
Patient Problems: Active and Suspected Problems (Last Reviewed 04/16/19 @ 11:18 by Regulo Figueroa MD) CHF (congestive heart failure) (Acute) MOUNA (acute kidney injury) (Acute) Subjective: no new complaints breathing is better - Physical Exam Vitals/I&O's: Vital Signs Temp Pulse Resp BP Pulse Ox 97.8 F 81 20 H 112/62 95 04/20/19 13:00 04/20/19 13:44 04/20/19 13:30 04/20/19 13:30 04/20/19 13:48 Oxygen Flow Rate (L/min) 6 Oxygen Delivery Method Bi-pap Weight: 163.2 kg Body Mass Index (BMI) 53.4 Finger Stick Blood Glucose 479 Intake and Output for Last 24 Hours 04/18/19 04/19/19 04/20/19 23:59 23:59 23:59 Intake Total 3750.00 / 3762.25 965.30 / 965.30 685 / 685 Output Total 750 / 750 875 / 875 2400 / 2400 Balance 3000.00 / 3012.25 90.30 / 90.30 -1715 / -1715 General: Alert, Oriented x3, Cooperative HEENT: Atraumatic, PERRLA, EOMI, Normocephalic Neck: Supple, No JVD, Negative Carotid Bruits Lungs: Clear to auscultation, Normal air movement Cardiovascular: Regular rate, No murmurs Abdomen: Bowel Sounds Present, Soft, Non Tender Extremities: Capillary Refill Less than 3 Seconds, Edema Skin: No rashes, No breakdown Musculoskeletal: No Tenderness to Palpation of Joints or Extremities Neurological: Cranial nerves II-XII grossly intact Psych/Mental Status: Normal Affect, Appropriate Microbiology Past 72 Hours 04/18/19 21:15 Sputum, Expectorated/Coughed Gram Stain - Final 04/18/19 21:15 Sputum, Expectorated/Coughed Respiratory Culture - Preliminary Gram negative cocco bacillus 04/18/19 08:06 Blood Culture (Wb) - Left Hand Blood Culture - Preliminary No growth in 48 hours. 04/18/19 08:00 Blood Culture (Wb) - Right Hand Blood Culture - Preliminary No growth in 48 hours. 04/17/19 14:19 Mucosa - Nose Influenza Types A,B Direct FA (JL) - Final Laboratory Results 04/19/19 12:55: Hep B Core Total Ab Positive H 04/19/19 15:16: POC Glucose 443 H 04/19/19 16:31: POC Glucose 462 H* 04/19/19 16:44: POC PT 25.2 H, INR 2.20 04/19/19 17:49: POC Glucose 479 H* 04/19/19 22:22: POC Glucose 459 H* 04/19/19 22:55: Glucose 473 H* 04/20/19 07:29: POC Glucose 410 H 04/20/19 07:35: WBC 9.3, RBC 4.11 L, Hgb 11.1 L, Hct 37.5 L, MCV 91.2, MCH 27.0, MCHC 29.6 L, RDW Std Deviation 50.1 H, RDW Coeff of Janiya 15.1 H, Plt Count 238, MPV 9.4, Immature Gran % (Auto) 0.900, Neut % (Auto) 88.9 H, Lymph % (Auto) 2.3 L, [place] % (Auto) 7.8, Eos % (Auto) 0.0, Baso % (Auto) 0.1, Absolute Neuts (auto) 8.2 H, Absolute Lymphs (auto) 0.21 L, Nucleated RBC % 0.4, Differential Comment COMMENT 04/20/19 07:35: Sodium 131 L, Potassium 5.5 H, Chloride 90 L, Carbon Dioxide 35.0 H, Anion Gap 6, BUN 100 H, Creatinine 3.95 H, Estim Creat Clear Calc 19.00, Est GFR (MDRD) Af Amer 20 L, Est GFR (MDRD) Non-Af 17 L, BUN/Creatinine Ratio 25.3 H, Glucose 411 H, Calcium 8.3 L 04/20/19 11:53: POC Glucose 349 H Current Medications Acetaminophen (Tylenol) 650 mg PO Q6H PRN PRN PRN Reason: Pain Score 1-3/Temp > 100.7 F Last Admin: 04/18/19 08:32 Dose: 650 mg Documented by: Al Hydroxide/Mg Hydroxide (Mylanta Ii) 30 ml PO Q6H PRN PRN PRN Reason: Gastric Burning Albuterol Sulfate (Ventolin Aerosols) 2.5 mg INHALATION Q2H PRN PRN PRN Reason: SOB/Wheezing Last Admin: 04/17/19 05:35 Dose: 2.5 mg Documented by: Albuterol/Ipratropium (Duoneb) 3 ml INHALATION Q4H.RT [facility] Last Admin: 04/20/19 12:59 Dose: 3 ml Documented by: Amiodarone HCl (Cordarone) 200 mg PO BID [facility] Last Admin: 04/20/19 13:44 Dose: 200 mg Documented by: Atorvastatin Calcium (Lipitor) 20 mg PO QHS [facility] Last Admin: 04/19/19 23:54 Dose: 20 mg Documented by: Diltiazem HCl (Cardizem Cd) 120 mg PO Q12 [facility] Last Admin: 04/20/19 13:43 Dose: 120 mg Documented by: Glucagon () 1 mg IM .X1 PRN PRN Reason: Hypoglycemia Guaifenesin (Robitussin) 20 ml PO Q4H PRN PRN PRN Reason: COUGH Dextrose (Dextrose 10%-Water) 250 mls @ 999 mls/hr IV .Q16M PRN; Protocol PRN Reason: HYPOGLYCEMIA Sodium Chloride () 1,000 mls @ 15 mls/hr IV .Q48H [facility] Last Admin: 04/19/19 16:37 Dose: 30 mls/hr Documented by: Insulin Glargine (Lantus (Bkc)) 25 units SC BID [facility] Last Admin: 04/20/19 11:58 Dose: 25 u Documented by: Insulin Human Lispro (Humalog Kwikpen (Bkc)) 0 unit SC ACHS [facility]; Protocol Last Admin: 04/20/19 11:58 Dose: 12 units Documented by: Magnesium Hydroxide (Milk Of Magnesia) 30 ml PO DAILY PRN PRN PRN Reason: Constipation Melatonin (Melatonin) 3 mg PO QHS PRN PRN PRN Reason: INSOMNIA Metoprolol Succinate (Toprol Xl (Beta Rakesh)) 100 mg PO DAILY [facility] Last Admin: 04/20/19 13:44 Dose: 100 mg Documented by: Nitroglycerin (Nitrostat) 0.4 mg SUBLINGUAL Q5M PRN PRN Reason: CARDIAC/CHEST PAIN Ondansetron HCl (Zofran) 4 mg IV Q8H PRN PRN PRN Reason: NAUSEA/VOMITING Oxycodone HCl (Oxyir) 5 mg PO Q4H PRN PRN PRN Reason: Pain Score 4-5/10 Last Admin: 04/19/19 07:54 Dose: 5 mg Documented by: Oxycodone HCl (Oxyir) 10 mg PO Q4H PRN PRN PRN Reason: Pain Score 6-10/10 Prednisone () 40 mg PO DAILY@0800 [facility] Stop: 04/24/19 08:01 Last Admin: 04/20/19 13:43 Dose: 40 mg Documented by: Sodium Chloride () 10 - 40 ml IV UD PRN PRN Reason: SALINE FLUSH Last Admin: 04/20/19 15:10 Dose: 20 ml Documented by: Warfarin Sodium (Coumadin (Pbkc)) 2.5 mg PO TuWe@2200 [facility] Warfarin Sodium (Coumadin (Pbkc)) 5 mg PO SuMoThFrSa@2200 DANIEL Last Admin: 04/17/19 21:17 Dose: 5 mg Documented by: Medical Necessity - Tobacco Use Smoking Status: Former smoker Assessment/Plan All Active Problems (Last Reviewed 04/16/19 @ 11:18 by Regulo Figueroa MD) CHF (congestive heart failure) (Acute) MOUNA (acute kidney injury) (Acute) Acute respiratory failure (Resolved) Pneumonia, community acquired (Resolved) Sepsis (Resolved) Acute renal failure, chronic kidney disease stage III CHF Atrial fibrillation Patient tells me that his blood pressure usually runs low. Current blood pressure is around 109 or so. Baseline creatinine is around 1.3. Current creatinine is around 4. On review of records from [facility], he did not have significant proteinuria. Renal ultrasound without any hydronephrosis, echogenic kidneys Urine analysis with RBCs and protein. sent serologies for glomerulonephritis. Worsening renal failure with associated hyperkalemia. dialysis catheter placed by Dr Kingston, Appreciate the assistance HD today with goal removal 2-3 L. next HD tomorrow
[2019-04-20 16:08] LABS: Cytoplasmic Ab (C-ANCA) <1:20 titer (Neg:<1:20)
--- NOTE | 2019-04-20 16:47 | CPS ---
pt off Bipap and placed on nasal cannula per pt request
[2019-04-20 17:26] LABS: Bedside Glucose 404 mg/dL (70-110)
[2019-04-20 17:37] LABS: Complement C3 144 mg/dL (82-167); Perinuclear Ab (P-ANCA) <1:20 titer (Neg:<1:20)
[2019-04-20 17:50] LABS: Anti-dsDNA Ab 37 IU/mL (0-9)
--- NOTE | 2019-04-20 18:58 | NURSING ---
Reviewed and agreed on all charting with Ruth Ann Sheffield RN
[2019-04-20] MEDS: Atorvastatin Calcium 20 MG Tablet PO (22:29)
[2019-04-20 22:51] LABS: Bedside Glucose 357 mg/dL (70-110)
[2019-04-21] VITALS (20 sets, daily range): BP systolic 88–116; BP diastolic 45–85; PULSE 50–94; RESP 12–22; TEMP 35.9–36.9; O2SAT 92–98
--- NOTE | 2019-04-21 00:15 | NURSING ---
Placed pt. back on bipap at this time. Pt. at bedside.
[2019-04-21 06:56] LABS: Absolute Lymphocyte Count 0.31 X10^3/uL (0.83-4.51); Absolute Neutrophil Count 8.1 X10^3/uL (2.0-7.7); Basophil# 0.01 X10^3/uL; Basophil% 0.1 % (0-1); Hematocrit 39.6 % (40-54); Hemoglobin 11.7 g/dL (13.0-16.5); Lymphocyte # 0.31 X10^3/ul (4.0); Lymphocyte % 3.2 % (19-41); Mean Corp Hgb Conc 29.5 g/dL (32-36); Mean Corpuscular Volume 91.2 fL (80-94); Monocyte# 1.27 X10^3/uL; NRBC Flagged by Analyzer 0.3 % (0-5); Neutrophil # 8.14 X10^3/uL (2.7-7.7); Neutrophil % 83.1 % (47-70); POSITIVE DIFFERENTIAL YES; Platelet Count 245 K/mm3 (150-450); RBC Distribution Width CV 14.8 % (11.6-14.6); RBC Distribution Width SD 50.1 fl (35.1-43.9); Red Blood Count 4.34 M/mm3 (4.6-6.2); White Blood Count 9.8 K/mm3 (4.4-11.0)
[2019-04-21 07:07] LABS: Differential Indicated SCAN CRITERIA MET
[2019-04-21 07:10] LABS: Bedside Glucose 337 mg/dL (70-110)
[2019-04-21] MEDS: Insulin Lispro 100 UNIT/ML INSULN.PEN SC ×2 (07:40→21:13)
[2019-04-21 07:51] LABS: Anion Gap 6 (5-15); BUN 107 mg/dL (7-18); BUN/Creat Ratio 22.6 RATIO (10-20); Calcium,Total 8.5 mg/dL (8.5-10.1); Chloride 91 mmol/L (98-107); Creatinine, Serum 4.73 mg/dL (0.70-1.30); EST Glomerular Filtration Rate 13 mL/min (>60); Est Glom Filt Rate - Afr Amer 16 mL/min (>60); Estimated Creatinine Clearance 15.87 ml/min; Glucose 356 mg/dL (74-106); Potassium 5.5 mmol/L (3.5-5.1); Sodium Level 130 mmol/L (136-145)
[2019-04-21 08:01] LABS: International Normalized Ratio 1.8; Prothrombin Time (Protime)PT. 21.2 SECONDS (11.7-14.9)
--- NOTE | 2019-04-21 09:53 | PCM.PN.PUL ---
Patient Problems: Active and Suspected Problems (Last Reviewed 04/16/19 @ 11:18 by Regulo Figueroa MD) CHF (congestive heart failure) (Acute) MOUNA (acute kidney injury) (Acute) Subjective: Patient overall feels subjectively unchanged compared to previous. Patient reportedly did have difficulty with hemodialysis yesterday with poor flows leading to poor clearance. Patient was able to get 2-1/2 L taken off. Patient states he did use BiPAP therapy overnight and with dialysis. Patient is denying any chest pain, but subjectively feels his lower extremities feel more tense. - Physical Exam Vitals/I&O's: Vital Signs Temp Pulse Resp BP Pulse Ox 36.9 C 50 L 18 106/45 L 97 04/21/19 05:45 04/21/19 07:00 04/21/19 05:45 04/21/19 05:45 04/21/19 06:59 Oxygen Flow Rate (L/min) 7 Oxygen Delivery Method Nasal Cannula Weight: 162.4 kg Body Mass Index (BMI) 53.4 Finger Stick Blood Glucose 479 Intake and Output for Last 24 Hours 04/19/19 04/20/19 04/21/19 23:59 23:59 23:59 Intake Total 965.30 / 965.30 1466.5 / 1466.5 50 / 50 Output Total 875 / 875 4900 / 4900 0 / 0 Balance 90.30 / 90.30 -3433.5 / -3433.5 50 / 50 General: Alert, Oriented x3, Cooperative, - - Slightly more interactive today, but appears frustrated. Morbidly obese. HEENT: Atraumatic, PERRLA, EOMI, Normocephalic, - - Slight scleral injection without icterus Oral: Moist Mucosa, No Gingival or Mucosal Lesions/ Ulcerations Neck: Supple, No Nodes, Trachea Midline, JVD, Right Lungs: No rhonchi, Diminished, Rales, Wheezes, - - Symmetric expansion. Cardiovascular: Normal S1, Normal S2, No murmurs, Irregular Rate, No rub noted, No Gallop Abdomen: Bowel Sounds Present, Soft, Non Tender, Non-Distended, Obese Extremities: No clubbing, No cyanosis, Edema - 4+ bilateral lower extremities Skin: - - Some ecchymosis around tunneled hemodialysis track Musculoskeletal: No Tenderness to Palpation of Joints or Extremities Lymphatic: No Cervical, Supraclavicular, or Inguinal Adenopathy Neurological: Cranial nerves II-XII grossly intact, Neuro grossly intact, Motor Exam 5/5 strength throughout Psych/Mental Status: Alert and oriented to time, place, person, mood and affect Microbiology Past 72 Hours 04/18/19 21:15 Sputum, Expectorated/Coughed Gram Stain - Final 04/18/19 21:15 Sputum, Expectorated/Coughed Respiratory Culture - Preliminary Gram negative cocco bacillus 04/18/19 08:06 Blood Culture (Wb) - Left Hand Blood Culture - Preliminary No growth in 48 hours. 04/18/19 08:00 Blood Culture (Wb) - Right Hand Blood Culture - Preliminary No growth in 48 hours. Laboratory Results 04/19/19 12:55: Double Strand DNA Ab 37 H 04/19/19 12:55: c-ANCA Antibody <1:20, Atypical p-ANCA <1:20, p-ANCA Antibody <1:20, Complement C3 144, Complement C4 47 H 04/20/19 11:53: POC Glucose 349 H 04/20/19 17:11: POC Glucose 404 H 04/20/19 22:35: POC Glucose 357 H 04/21/19 06:35: WBC 9.8, RBC 4.34 L, Hgb 11.7 L, Hct 39.6 L, MCV 91.2, MCH 27.0, MCHC 29.5 L, RDW Std Deviation 50.1 H, RDW Coeff of Janiya 14.8 H, Plt Count 245, MPV 9.0, Immature Gran % (Auto) 0.600, Neut % (Auto) 83.1 H, Lymph % (Auto) 3.2 L, [place] % (Auto) 13.0 H, Eos % (Auto) 0.0, Baso % (Auto) 0.1, Absolute Neuts (auto) 8.1 H, Absolute Lymphs (auto) 0.31 L, Nucleated RBC % 0.3, Differential Comment COMMENT 04/21/19 06:35: Sodium 130 L, Potassium 5.5 H, Chloride 91 L, Carbon Dioxide 33.0 H, Anion Gap 6, BUN 107 H*, Creatinine 4.73 H, Estim Creat Clear Calc 15.87, Est GFR (MDRD) Af Amer 16 L, Est GFR (MDRD) Non-Af 13 L, BUN/Creatinine Ratio 22.6 H, Glucose 356 H, Calcium 8.5 04/21/19 06:35: PT 21.2 H, INR 1.8 04/21/19 07:05: POC Glucose 337 H Current Medications Acetaminophen (Tylenol) 650 mg PO Q6H PRN PRN PRN Reason: Pain Score 1-3/Temp > 100.7 F Last Admin: 04/18/19 08:32 Dose: 650 mg Documented by: Al Hydroxide/Mg Hydroxide (Mylanta Ii) 30 ml PO Q6H PRN PRN PRN Reason: Gastric Burning Albuterol Sulfate (Ventolin Aerosols) 2.5 mg INHALATION Q2H PRN PRN PRN Reason: SOB/Wheezing Last Admin: 04/17/19 05:35 Dose: 2.5 mg Documented by: Albuterol/Ipratropium (Duoneb) 3 ml INHALATION Q4H.RT [facility] Last Admin: 04/21/19 06:59 Dose: Not Given Documented by: Amiodarone HCl (Cordarone) 200 mg PO BID [facility] Last Admin: 04/20/19 22:30 Dose: 200 mg Documented by: Atorvastatin Calcium (Lipitor) 20 mg PO QHS [facility] Last Admin: 04/20/19 22:29 Dose: 20 mg Documented by: Diltiazem HCl (Cardizem Cd) 120 mg PO Q12 [facility] Last Admin: 04/20/19 22:29 Dose: 120 mg Documented by: Glucagon () 1 mg IM .X1 PRN PRN Reason: Hypoglycemia Guaifenesin (Robitussin) 20 ml PO Q4H PRN PRN PRN Reason: COUGH Dextrose (Dextrose 10%-Water) 250 mls @ 999 mls/hr IV .Q16M PRN; Protocol PRN Reason: HYPOGLYCEMIA Sodium Chloride () 1,000 mls @ 15 mls/hr IV .Q48H [facility] Last Admin: 04/21/19 04:51 Dose: Not Given Documented by: Insulin Glargine (Lantus (Bkc)) 40 units SC BID [facility] Insulin Human Lispro (Humalog Kwikpen (Bkc)) 0 unit SC ACHS [facility]; Protocol Last Admin: 04/21/19 07:40 Dose: 12 units Documented by: Magnesium Hydroxide (Milk Of Magnesia) 30 ml PO DAILY PRN PRN PRN Reason: Constipation Melatonin (Melatonin) 3 mg PO QHS PRN PRN PRN Reason: INSOMNIA Metoprolol Succinate (Toprol Xl (Beta Rakesh)) 100 mg PO DAILY [facility] Last Admin: 04/20/19 13:44 Dose: 100 mg Documented by: Nitroglycerin (Nitrostat) 0.4 mg SUBLINGUAL Q5M PRN PRN Reason: CARDIAC/CHEST PAIN Ondansetron HCl (Zofran) 4 mg IV Q8H PRN PRN PRN Reason: NAUSEA/VOMITING Oxycodone HCl (Oxyir) 5 mg PO Q4H PRN PRN PRN Reason: Pain Score 4-5/10 Last Admin: 04/19/19 07:54 Dose: 5 mg Documented by: Oxycodone HCl (Oxyir) 10 mg PO Q4H PRN PRN PRN Reason: Pain Score 6-10/10 Prednisone () 40 mg PO DAILY@0800 [facility] Stop: 04/24/19 08:01 Last Admin: 04/20/19 13:43 Dose: 40 mg Documented by: Senna (Senokot) 2 tablet PO DAILY PRN PRN Reason: Constipation Sodium Chloride () 10 - 40 ml IV UD PRN PRN Reason: SALINE FLUSH Last Admin: 04/20/19 15:10 Dose: 20 ml Documented by: Warfarin Sodium (Coumadin (Pbkc)) 2.5 mg PO TuWe@2200 [facility] Warfarin Sodium (Coumadin (Pbkc)) 5 mg PO SuMoThFrSa@2200 [facility] Last Admin: 04/20/19 22:45 Dose: 5 mg Documented by: Medical Necessity - Tobacco Use Smoking Status: Former smoker Assessment/Plan All Active Problems (Last Reviewed 04/16/19 @ 11:18 by Regulo Figueroa MD) CHF (congestive heart failure) (Acute) MOUNA (acute kidney injury) (Acute) Acute respiratory failure (Resolved) Pneumonia, community acquired (Resolved) Sepsis (Resolved) RECOMMENDATIONS: 1. Await results of hemodialysis 2. Continue BiPAP with sleep. Patient advised to initiate BiPAP with hemodialysis 3. Complete steroid burst 4. Increase dose of basal insulin 5. Low threshold for ABG with change in mental status IMPRESSIONS: 1. Acute on chronic hypercarbic respiratory failure Unclear etiology at this time. Patient does have clinical signs and symptoms of increased volume status with recent travel. Work-up for pulmonary embolism was negative. Patient did appear to respond well to steroid therapy. Patient was transitioned over to prednisone to complete a burst. Patient appears to be slightly somnolent at this time. This may be indicative of CO2 retention, which can be exacerbated by present uremia. Patient was asked to initiate BiPAP therapy. Would consider significant volume removal if okay with nephrology. Encourage incentive spirometer given need for tunneled hemodialysis line. Patient does have potential pathologic growth on sputum culture, but is not having any fevers or leukocytosis. Await final results. 2. Acute on chronic kidney disease stage III/hyperkalemia Baseline creatinine of 1.3, but significant worsening after diuretic therapy. Patient does have a renal ultrasound showing no hydronephrosis. Given lack of hydronephrosis, would consider diuretic therapy versus volume removal with hemodialysis if okay with nephrology. Hyperkalemia is slightly improved compared to previous. Patient work-up appears to be suggestive of possible lupus with a positive double-stranded DNA antibody. 3. Chronic A. fib/chronic diastolic congestive heart failure/history of VSD repair/pulmonary hypertension Patient anticoagulated and doing well. No signs or symptoms of bleeding at this time. Patient may have an element of pulmonary hypertension leading to current findings. Diuretics have previously been held secondary to renal function. Patient is on significant beta-rakesh at this time. Cardiology could perform a right heart catheterization for further clarification on volume status. Lower extremity edema is suggestive of diastolic dysfunction despite unimpressive BNP. Patient's echo is limited given body habitus. 4. Hypertension/type 2 diabetes mellitus/hyperlipidemia/morbid obesity/noncompliant LASHAWN Complicates care, management, recovery and prognosis. Consider additional basal insulin given hyperglycemia. Patient is tolerating BiPAP at this time. We will continue with this therapy. Okay to continue statin from my perspective. Code Visit Inpatient E&M: [id number] [facility] Hosp L3
[2019-04-21 11:21] LABS: Bedside Glucose 185 mg/dL (70-110)
[2019-04-21 11:46] LABS: Allen Test POS; Base Excess 8 mmol/L (-2 to +2); Blood Gas Specimen Type ART; O2 Delivery Device Nasal Can; PO2 91 mmHG (75-100); SITE R Radial; SO2 95 % (95-99); Time Given 1135; Total Carbon Dioxide 37 mmol/L; pCO2 78.6 mmHg (35-45); pH 7.26 (7.35-7.45)
--- NOTE | 2019-04-21 12:07 | CPS ---
Pt noted to have increased confusion and agitation. ABG obtained while pt was on 7 lpm. Pt was placed back on Bipap post ABG.
[2019-04-21] MEDS: Heparin 10,000 UNITS/10 ML Vial IV (12:30)
[2019-04-21] MEDS: 0.9% Saline Lock 10 ML Syringe IV (12:30)
[2019-04-21] MEDS: LORazepam 2 MG/ML Syringe 1 MG IV (12:30)
--- NOTE | 2019-04-21 13:04 | DIALYSIS ---
Hemodialysis completed 3.5 hours on a 2 K bath. Fluid removed was 4.6 liters. Patients RIJ catheter worked well, no issues with blood flows today. However he became more and more confused agitated and restless on dialysis. ABG drawn during tx. Patient is afebrile and BP stable though a little low throughout treatment. Ending VS 99/51, 65, 22, 98% on bipap, 96.9. Next HD per Nephrology. See dialysis flow sheets for details.
--- NOTE | 2019-04-21 13:29 | PN_ITS ---
Patient Problems: Active and Suspected Problems (Last Reviewed 04/16/19 @ 11:18 by Regulo Figueroa MD) CHF (congestive heart failure) (Acute) MOUNA (acute kidney injury) (Acute) Subjective: Patient seen and examined. Was on oxygen by nasal cannula and had no complaints. He said he felt well. Review of systems otherwise negative. Labs and vitals reviewed. However later in the morning, patient became more agitated whilst undergoing dialysis. He had episodes of confusion and agitation. There was some concern that his dialysis catheter was not working well yesterday but has been functioning well today. Labs and vitals reviewed. Sodium is 130 and potassium is 5.5. Creatinine is up to 4.73 today and BUN is 107. Hemoglobin is 11.7. Vitals/I&O's: Vital Signs Temp Pulse Resp BP Pulse Ox 96.9 F L 65 22 H 99/51 L 98 04/21/19 13:09 04/21/19 13:09 04/21/19 13:09 04/21/19 13:04/21/19 13:09 Oxygen Flow Rate (L/min) 7 Oxygen Delivery Method Bi-pap Weight: 358 lb 0.491 oz Body Mass Index (BMI) 53.4 Finger Stick Blood Glucose 479 Intake and Output for Last 24 Hours 04/19/19 04/20/19 04/21/19 23:59 23:59 23:59 Intake Total 965.30 / 965.30 1466.5 / 1466.5 50 / 50 Output Total 875 / 875 4900 / 4900 4600 / 4600 Balance 90.30 / 90.30 -3433.5 / -3433.5 -4550 / -4550 General: Alert, confused HEENT: Atraumatic, PERRLA, EOMI, Normocephalic Oral: Moist Mucosa Neck: Supple, No JVD, Negative Carotid Bruits Lungs: - - decreased breath sounds bibasally, no wheezes or crackles. on oxygen by nasal canula Cardiovascular: Regular Rhythm, Normal S1, Normal S2, No murmurs, regular rate Abdomen: Bowel Sounds Present, Soft, Non Tender, Non-Distended, No Hepato- splenomegaly, Obese Extremities: No clubbing, No cyanosis, Edema - bipedal 2+ pitting edema Skin: No rashes, No breakdown Musculoskeletal: No Tenderness to Palpation of Joints or Extremities Lymphatic: No Cervical, Supraclavicular, or Inguinal Adenopathy Neurological: Cranial nerves II-XII grossly intact, Neuro grossly intact, Motor Exam 5/5 strength throughout Psych/Mental Status: confused, agitated whilst having dialysis Microbiology Past 72 Hours 04/18/19 21:15 Sputum, Expectorated/Coughed Gram Stain - Final 04/18/19 21:15 Sputum, Expectorated/Coughed Respiratory Culture - Final Haemophilus influenzae Mixed Malini 04/18/19 08:06 Blood Culture (Wb) - Left Hand Blood Culture - Preliminary No growth in 48 hours. 04/18/19 08:00 Blood Culture (Wb) - Right Hand Blood Culture - Preliminary No growth in 48 hours. Laboratory Results 04/19/19 12:55: Double Strand DNA Ab 37 H 04/19/19 12:55: c-ANCA Antibody <1:20, Atypical p-ANCA <1:20, p-ANCA Antibody <1:20, Complement C3 144, Complement C4 47 H 04/20/19 17:11: POC Glucose 404 H 04/20/19 22:35: POC Glucose 357 H 04/21/19 06:35: WBC 9.8, RBC 4.34 L, Hgb 11.7 L, Hct 39.6 L, MCV 91.2, MCH 27.0, MCHC 29.5 L, RDW Std Deviation 50.1 H, RDW Coeff of Janiya 14.8 H, Plt Count 245, MPV 9.0, Immature Gran % (Auto) 0.600, Neut % (Auto) 83.1 H, Lymph % (Auto) 3.2 L, [place] % (Auto) 13.0 H, Eos % (Auto) 0.0, Baso % (Auto) 0.1, Absolute Neuts (auto) 8.1 H, Absolute Lymphs (auto) 0.31 L, Nucleated RBC % 0.3, Differential Comment COMMENT 04/21/19 06:35: Sodium 130 L, Potassium 5.5 H, Chloride 91 L, Carbon Dioxide 33.0 H, Anion Gap 6, BUN 107 H*, Creatinine 4.73 H, Estim Creat Clear Calc 15.87, Est GFR (MDRD) Af Amer 16 L, Est GFR (MDRD) Non-Af 13 L, BUN/Creatinine Ratio 22.6 H, Glucose 356 H, Calcium 8.5 04/21/19 06:35: PT 21.2 H, INR 1.8 04/21/19 07:05: POC Glucose 337 H 04/21/19 11:11: POC Glucose 185 H 04/21/19 11:36: Specimen Type ART, Sample Site R Radial, pH 7.26 L, Bicarbonate Actual 35.0 H, POC Total CO2 37, Base Excess 8 H, O2 Saturation 95, ABG pCO2 78.6 H*, ABG pO2 91, Gvain Test POS, O2 Delivery Device Nasal Can, Liter Flow 7.0, Blood Gas Notified Whom SANDY HAMLIN, Blood Gas Notified Time [address] 04/17/19 07:43 IMPRESSION: Patchy bilateral pulmonary infiltrates. Follow-up is recommended. Electronically Signed: Fortunato Francisco, at 14:26 EST , Service support , Lung Scan-VQ NM 04/17/19 07:51 IMPRESSION: 1. VERY LOW PROBABILITY FOR PULMONARY EMBOLUS (<10%) 99m Tc DTPA aerosol ventilation / 99m Tc MAA pulmonary perfusion imaging examination, according to PIOPED II interpretive criteria with regard given to the presence of > 2 ventilation-perfusion matches without corresponding radiographic changes. (Sotsman et al, Radiology 246: 941, 2008 Sotsjose et al, J Nucl Med 49: 1741, 2008). 2. Central clumping of the aerosol may be secondary to obstructive airway mechanics and or clinical tachypnea. Electronically Signed: Neftaly Marin DO at 14:07 EST Tel , Service support , Renal Ultrasound 04/17/19 12:16 IMPRESSION: Findings consistent with nonspecific renal parenchymal disease. No evidence for renal obstruction. Left renal cyst measuring 2.5 x 2.4 x 2.5 cm. Electronically Signed: Adonis Seals MD at 22:52 EST , Service support , Chest X-Ray 04/19/19 17:55 IMPRESSION: 1. Right jugular hemodialysis catheter without pneumothorax. Right decrease in vascular congestion when compared to prior study. Electronically Signed: Robert Bradley DO at 19:22 EST Tel [phone], Service support , Current Medications Acetaminophen (Tylenol) 650 mg PO Q6H PRN PRN PRN Reason: Pain Score 1-3/Temp > 100.7 F Last Admin: 04/18/19 08:32 Dose: 650 mg Documented by: Al Hydroxide/Mg Hydroxide (Mylanta Ii) 30 ml PO Q6H PRN PRN PRN Reason: Gastric Burning Albuterol Sulfate (Ventolin Aerosols) 2.5 mg INHALATION Q2H PRN PRN PRN Reason: SOB/Wheezing Last Admin: 04/17/19 05:35 Dose: 2.5 mg Documented by: Albuterol/Ipratropium (Duoneb) 3 ml INHALATION Q4H.RT [facility] Last Admin: 04/21/19 06:59 Dose: Not Given Documented by: Amiodarone HCl (Cordarone) 200 mg PO BID [facility] Last Admin: 04/20/19 22:30 Dose: 200 mg Documented by: Atorvastatin Calcium (Lipitor) 20 mg PO QHS [facility] Last Admin: 04/20/19 22:29 Dose: 20 mg Documented by: Diltiazem HCl (Cardizem Cd) 120 mg PO Q12 [facility] Last Admin: 04/20/19 22:29 Dose: 120 mg Documented by: Glucagon () 1 mg IM .X1 PRN PRN Reason: Hypoglycemia Guaifenesin (Robitussin) 20 ml PO Q4H PRN PRN PRN Reason: COUGH Dextrose (Dextrose 10%-Water) 250 mls @ 999 mls/hr IV .Q16M PRN; Protocol PRN Reason: HYPOGLYCEMIA Sodium Chloride () 1,000 mls @ 15 mls/hr IV .Q48H [facility] Last Admin: 04/21/19 04:51 Dose: Not Given Documented by: Insulin Glargine (Lantus (Bkc)) 40 units SC BID [facility] Last Admin: 04/21/19 11:41 Dose: Not Given Documented by: Insulin Human Lispro (Humalog Kwikpen (Bkc)) 0 unit SC ACHS [facility]; Protocol Last Admin: 04/21/19 11:42 Dose: Not Given Documented by: Levofloxacin (Levaquin Tablet) 250 mg PO DAILY@0600 [facility] Magnesium Hydroxide (Milk Of Magnesia) 30 ml PO DAILY PRN PRN PRN Reason: Constipation Melatonin (Melatonin) 3 mg PO QHS PRN PRN PRN Reason: INSOMNIA Metoprolol Succinate (Toprol Xl (Beta Rakesh)) 100 mg PO DAILY [facility] Last Admin: 04/20/19 13:44 Dose: 100 mg Documented by: Nitroglycerin (Nitrostat) 0.4 mg SUBLINGUAL Q5M PRN PRN Reason: CARDIAC/CHEST PAIN Ondansetron HCl (Zofran) 4 mg IV Q8H PRN PRN PRN Reason: NAUSEA/VOMITING Oxycodone HCl (Oxyir) 5 mg PO Q4H PRN PRN PRN Reason: Pain Score 4-5/10 Last Admin: 04/19/19 07:54 Dose: 5 mg Documented by: Oxycodone HCl (Oxyir) 10 mg PO Q4H PRN PRN PRN Reason: Pain Score 6-10/10 Prednisone () 40 mg PO DAILY@0800 [facility] Stop: 04/24/19 08:01 Last Admin: 04/20/19 13:43 Dose: 40 mg Documented by: Senna (Senokot) 2 tablet PO DAILY PRN PRN Reason: Constipation Sodium Chloride () 10 - 40 ml IV UD PRN PRN Reason: SALINE FLUSH Last Admin: 04/21/19 12:30 Dose: 10 ml Documented by: Warfarin Sodium (Coumadin (Pbkc)) 2.5 mg PO TuWe@0 [facility] Warfarin Sodium (Coumadin (Pbkc)) 5 mg PO SuMoThFrSa@2200 [facility] Last Admin: 04/20/19 22:45 Dose: 5 mg Documented by: STROKE Vital Signs/Narrative: Vital Signs Temp Pulse Resp BP Pulse Ox 04/21/19 13:09 96.9 F L 65 22 H 99/51 L 98 04/21/19 11:45 65 18 95 04/21/19 11:15 96.7 F L 64 22 H 104/69 97 Medical Necessity - Tobacco Use Smoking Status: Former smoker Assessment/Plan All Active Problems (Last Reviewed 04/16/19 @ 11:18 by Regulo Figueroa MD) CHF (congestive heart failure) (Acute) MOUNA (acute kidney injury) (Acute) Acute respiratory failure (Resolved) Pneumonia, community acquired (Resolved) Sepsis (Resolved) 1. acute hypoxic and hypercapnic respiratory failure * Was on BiPAP overnight was transitioned to oxygen by nasal cannula today. * 2D echo: EF of 60% with no regional wall motion abnormalities noted. Normal right ventricular size and systolic function. Left and right atria were not well visualized. * Duplex was negative for any PE. * Pulmonology on board. VQ scan showed very low probability for PE. * Continue breathing treatments. Titrate oxygen to maintain saturation above 90%. Use BiPAP PRN. * Of note, sputum culture gram-negative coccobacillus (Hemophilus influenzae), and gram positive rods. * will start patient on IV ceftriaxone * 2. MOUNA on CKD with hyperkalemia * Creatinine is 4.73 today * Potassium is 5.5 today. * For dialysis today. * Nephrology on board. * * 3. Respiratory acidosis with compensatory metabolic alkalosis: * Bicarb is 33 today. Stable. * * 4. Nonsustained Vtach * didnt have tachycardia overnight. On amiodarone, cardizem and metoprolol. * 5. Hypertension * Blood pressure still remains borderline low. * Lisinopril, spironolactone and torsemide on hold. On amiodarone and Cardizem and metoprolol on account of A. fib and nonsustained V. tach. * 6. Type 2 diabetes mellitus: Metformin on hold on account of MOUNA. Insulin sliding scale. Accu-Cheks AC at bedtime. 7. Hyperlipidemia: On statin. 8. History of severe pulmonary hypertension: to follow up with pulmonology and cardiology after discharge 9. A. fib: * Status post ablation x3. * On p.o. amiodarone 200 mg twice daily, Cardizem 120 mg twice daily and metoprolol. * INR today is 1.8 * On Coumadin. 10. Chronic Heart failure with preserved ejection fraction: * 2D echo in October 2018 showed EF of 50%. * 2D echo during this admission shows EF of 60%with no regional wall motion abnormalities * cardiology on board. * 11. Super morbid obesity: BMI is 52.5. This complicates management, expected recovery and prognosis. 12. LASHAWN: Currently on BiPAP. Pulmonology on board. 13. History of congenital heart disease: * Status post VSD repair at age 18 and PDA repair at age 3. * Stable. * DVT prophylaxis: INR therapeutic. On Coumadin. Code status: full code Code Visit Inpatient E&M: 92739 Subs Hosp L3
--- NOTE | 2019-04-21 13:40 | CPS ---
11:45 ABG critical value to Dr Serrano via cortex by Taylor charge nurse and Verbal per Dr Serrano call back. Pt was placed back on Bipap post ABG per Dr saenz
--- NOTE | 2019-04-21 15:04 | CASEMGMT ---
Per Dr. Arevalo, he would like pt set up for OP dialysis at this time. In-network list obtained and this RN CM discussed with pt's via phone at this time. Pt is sleeping without distress on bipap and had been given meds for agitation previously. states she would like [facility] at this time. Referral faxed to [facility] and [facility] at this time with a call to [facility] to notify of referral and [place] voices understanding. This RN CM to follow. SSterin RN CM
--- NOTE | 2019-04-21 15:23 | PN.RENAL_ITS ---
Patient Problems: Active and Suspected Problems (Last Reviewed 04/16/19 @ 11:18 by Regulo Figueroa MD) CHF (congestive heart failure) (Acute) MOUNA (acute kidney injury) (Acute) Subjective: no new events - Physical Exam Vitals/I&O's: Vital Signs Temp Pulse Resp BP Pulse Ox 96.7 F L 64 16 116/85 H 96 04/21/19 13:53 04/21/19 13:53 04/21/19 13:53 04/21/19 13:53 04/21/19 13:53 Oxygen Flow Rate (L/min) 7 Oxygen Delivery Method Bi-pap Weight: 162.4 kg Body Mass Index (BMI) 53.4 Finger Stick Blood Glucose 479 Intake and Output for Last 24 Hours 04/19/19 04/20/19 04/21/19 23:59 23:59 23:59 Intake Total 965.30 / 965.30 1466.5 / 1466.5 50 / 50 Output Total 875 / 875 4900 / 4900 4600 / 4600 Balance 90.30 / 90.30 -3433.5 / -3433.5 -4550 / -4550 General: Alert, Oriented x3, Cooperative HEENT: Atraumatic, PERRLA, EOMI, Normocephalic Neck: Supple, No JVD, Negative Carotid Bruits Lungs: Clear to auscultation, Normal air movement Cardiovascular: Regular rate, No murmurs Abdomen: Bowel Sounds Present, Soft, Non Tender Extremities: Capillary Refill Less than 3 Seconds, Edema Skin: No rashes, No breakdown Musculoskeletal: No Tenderness to Palpation of Joints or Extremities Neurological: Cranial nerves II-XII grossly intact Psych/Mental Status: Normal Affect, Appropriate Microbiology Past 72 Hours 04/18/19 21:15 Sputum, Expectorated/Coughed Gram Stain - Final 04/18/19 21:15 Sputum, Expectorated/Coughed Respiratory Culture - Final Haemophilus influenzae Mixed Malini 04/18/19 08:06 Blood Culture (Wb) - Left Hand Blood Culture - Preliminary No growth in 48 hours. 04/18/19 08:00 Blood Culture (Wb) - Right Hand Blood Culture - Preliminary No growth in 48 hours. Laboratory Results 04/19/19 12:55: Double Strand DNA Ab 37 H 04/19/19 12:55: c-ANCA Antibody <1:20, Atypical p-ANCA <1:20, p-ANCA Antibody <1:20, Complement C3 144, Complement C4 47 H 04/20/19 17:11: POC Glucose 404 H 04/20/19 22:35: POC Glucose 357 H 04/21/19 06:35: WBC 9.8, RBC 4.34 L, Hgb 11.7 L, Hct 39.6 L, MCV 91.2, MCH 27.0, MCHC 29.5 L, RDW Std Deviation 50.1 H, RDW Coeff of Janiya 14.8 H, Plt Count 245, MPV 9.0, Immature Gran % (Auto) 0.600, Neut % (Auto) 83.1 H, Lymph % (Auto) 3.2 L, [place] % (Auto) 13.0 H, Eos % (Auto) 0.0, Baso % (Auto) 0.1, Absolute Neuts (auto) 8.1 H, Absolute Lymphs (auto) 0.31 L, Nucleated RBC % 0.3, Differential Comment COMMENT 04/21/19 06:35: Sodium 130 L, Potassium 5.5 H, Chloride 91 L, Carbon Dioxide 33.0 H, Anion Gap 6, BUN 107 H*, Creatinine 4.73 H, Estim Creat Clear Calc 15.87, Est GFR (MDRD) Af Amer 16 L, Est GFR (MDRD) Non-Af 13 L, BUN/Creatinine Ratio 22.6 H, Glucose 356 H, Calcium 8.5 04/21/19 06:35: PT 21.2 H, INR 1.8 04/21/19 07:05: POC Glucose 337 H 04/21/19 11:11: POC Glucose 185 H 04/21/19 11:36: Specimen Type ART, Sample Site R Radial, pH 7.26 L, Bicarbonate Actual 35.0 H, POC Total CO2 37, Base Excess 8 H, O2 Saturation 95, ABG pCO2 78.6 H*, ABG pO2 91, Gavin Test POS, O2 Delivery Device Nasal Can, Liter Flow 7.0, Blood Gas Notified Whom HOSP , Blood Gas Notified Time 1135 Current Medications Acetaminophen (Tylenol) 650 mg PO Q6H PRN PRN PRN Reason: Pain Score 1-3/Temp > 100.7 F Last Admin: 04/18/19 08:32 Dose: 650 mg Documented by: Al Hydroxide/Mg Hydroxide (Mylanta Ii) 30 ml PO Q6H PRN PRN PRN Reason: Gastric Burning Albuterol Sulfate (Ventolin Aerosols) 2.5 mg INHALATION Q2H PRN PRN PRN Reason: SOB/Wheezing Last Admin: 04/17/19 05:35 Dose: 2.5 mg Documented by: Albuterol/Ipratropium (Duoneb) 3 ml INHALATION Q4H.RT [facility] Last Admin: 04/21/19 06:59 Dose: Not Given Documented by: Amiodarone HCl (Cordarone) 200 mg PO BID [facility] Last Admin: 04/20/19 22:30 Dose: 200 mg Documented by: Atorvastatin Calcium (Lipitor) 20 mg PO QHS [facility] Last Admin: 04/20/19 22:29 Dose: 20 mg Documented by: Diltiazem HCl (Cardizem Cd) 120 mg PO Q12 [facility] Last Admin: 04/20/19 22:29 Dose: 120 mg Documented by: Glucagon () 1 mg IM .X1 PRN PRN Reason: Hypoglycemia Guaifenesin (Robitussin) 20 ml PO Q4H PRN PRN PRN Reason: COUGH Dextrose (Dextrose 10%-Water) 250 mls @ 999 mls/hr IV .Q16M PRN; Protocol PRN Reason: HYPOGLYCEMIA Sodium Chloride () 1,000 mls @ 15 mls/hr IV .Q48H [facility] Last Admin: 04/21/19 04:51 Dose: Not Given Documented by: Insulin Glargine (Lantus (Bkc)) 40 units SC BID [facility] Last Admin: 04/21/19 11:41 Dose: Not Given Documented by: Insulin Human Lispro (Humalog Kwikpen (Bkc)) 0 unit SC ACHS [facility]; Protocol Last Admin: 04/21/19 11:42 Dose: Not Given Documented by: Levofloxacin (Levaquin Tablet) 250 mg PO Q48@0600 [facility] Magnesium Hydroxide (Milk Of Magnesia) 30 ml PO DAILY PRN PRN PRN Reason: Constipation Melatonin (Melatonin) 3 mg PO QHS PRN PRN PRN Reason: INSOMNIA Metoprolol Succinate (Toprol Xl (Beta Rakesh)) 100 mg PO DAILY [facility] Last Admin: 04/20/19 13:44 Dose: 100 mg Documented by: Nitroglycerin (Nitrostat) 0.4 mg SUBLINGUAL Q5M PRN PRN Reason: CARDIAC/CHEST PAIN Ondansetron HCl (Zofran) 4 mg IV Q8H PRN PRN PRN Reason: NAUSEA/VOMITING Oxycodone HCl (Oxyir) 5 mg PO Q4H PRN PRN PRN Reason: Pain Score 4-5/10 Last Admin: 04/19/19 07:54 Dose: 5 mg Documented by: Oxycodone HCl (Oxyir) 10 mg PO Q4H PRN PRN PRN Reason: Pain Score 6-10/10 Prednisone () 40 mg PO DAILY@0800 [facility] Stop: 04/24/19 08:01 Last Admin: 04/20/19 13:43 Dose: 40 mg Documented by: Senna (Senokot) 2 tablet PO DAILY PRN PRN Reason: Constipation Sodium Chloride () 10 - 40 ml IV UD PRN PRN Reason: SALINE FLUSH Last Admin: 04/21/19 12:30 Dose: 10 ml Documented by: Warfarin Sodium (Coumadin (Pbkc)) 2.5 mg PO TuWe@2200 [facility] Warfarin Sodium (Coumadin (Pbkc)) 5 mg PO SuMoThFrSa@2200 [facility] Last Admin: 04/20/19 22:45 Dose: 5 mg Documented by: Medical Necessity - Tobacco Use Smoking Status: Former smoker Assessment/Plan All Active Problems (Last Reviewed 04/16/19 @ 11:18 by Regulo Figueroa MD) CHF (congestive heart failure) (Acute) MOUNA (acute kidney injury) (Acute) Acute respiratory failure (Resolved) Pneumonia, community acquired (Resolved) Sepsis (Resolved) Acute renal failure, chronic kidney disease stage III CHF Atrial fibrillation Patient tells me that his blood pressure usually runs low. Current blood pressure is around 109 or so. Baseline creatinine is around 1.3. Current creatinine is around 4. On review of records from [facility], he did not have significant proteinuria. Renal ultrasound without any hydronephrosis, echogenic kidneys Urine analysis with RBCs and protein. Serologies reviewed. Double-stranded DNA is elevated. C3 is normal. Clinical significance of this is unclear at this point. If his renal function does not recover in the future, will consider kidney biopsy. Dialysis today. Catheter worked well today. Able to remove about 3 to 4 L. Will plan for dialysis again tomorrow. Paperwork sent for outpatient placement as acute renal failure. Acidosis. Mostly respiratory acidosis. On BiPAP.
--- NOTE | 2019-04-21 15:24 | PN.CARD_ITS ---
Subjectve: Patient seen and evaluated. Currently being dialyzed. Objective: Vital Signs Temp Pulse Resp BP Pulse Ox 96.7 F L 64 16 116/85 H 96 04/21/19 13:53 04/21/19 13:53 04/21/19 13:53 04/21/19 13:53 04/21/19 13:53 Oxygen Flow Rate (L/min) 7 Oxygen Delivery Method Bi-pap Weight: 358 lb 0.491 oz Body Mass Index (BMI) 53.4 Finger Stick Blood Glucose 479 Intake and Output for Last 24 Hours 04/19/19 04/20/19 04/21/19 23:59 23:59 23:59 Intake Total 965.30 / 965.30 1466.5 / 1466.5 50 / 50 Output Total 875 / 875 4900 / 4900 4600 / 4600 Balance 90.30 / 90.30 -3433.5 / -3433.5 -4550 / -4550 General: Awake, Alert, Oriented x 3 HEENT: PERRL, EOMI, Sclera Non Icteric Neck: Supple, Good ROM, No Lymph Node Enlargement Lungs: Clear to auscultation Cardiovascular: Regular Rhythm, Normal S1, Normal S2, No Murmurs, No Rubs, No Gallops Vascular: No Carotid Bruits, Normal Femoral Pulses, Normal Radial Pulses, Normal Dorsalis Pedal Pulse, Normal Posterior Tibial Pulses Abdomen: Bowel Sounds Present, Soft, Non Tender, No HSM, No Organomegaly Extremities: No Cyanosis, No Clubbing, No edema Musculoskeletal: No Erythema Skin: No Rashes Lymphatic: No Lymph Node Enlargement Neurological: No Focal Motor or Sensory Deficit Psych/Mental Status: Appropriate 04/21/19 06:35: WBC 9.8, RBC 4.34 L, Hgb 11.7 L, Hct 39.6 L, MCV 91.2, MCH 27.0, MCHC 29.5 L, Plt Count 245, MPV 9.0, Immature Gran % (Auto) 0.600, Neut % (Auto) 83.1 H, Lymph % (Auto) 3.2 L, [place] % (Auto) 13.0 H, Eos % (Auto) 0.0, Baso % (Auto) 0.1, Absolute Neuts (auto) 8.1 H, Nucleated RBC % 0.3 04/21/19 06:35: Sodium 130 L, Potassium 5.5 H, Chloride 91 L, Carbon Dioxide 33.0 H, Anion Gap 6, BUN 107 H*, Creatinine 4.73 H, Est GFR (MDRD) Af Amer 16 L, Est GFR (MDRD) Non-Af 13 L, BUN/Creatinine Ratio 22.6 H, Glucose 356 H, Calcium 8.5 04/21/19 06:35: PT 21.2 H, INR 1.8 04/21/19 11:36: pH 7.26 L, Bicarbonate Actual 35.0 H, POC Total CO2 37, Base Excess 8 H, O2 Saturation 95, ABG pCO2 78.6 H*, ABG pO2 91, Gavin Test POS Rhythm: EKG: ECHO: Stress Test: Cardiac Cath: PCI: CT Surgery: Holter monitor: EPS: PPM: CXR: Chest CT Scan: Medical Necessity - Tobacco Use Smoking Status: Former smoker Assessment/Plan 1. Shortness of breath * The etiology of the above is unlikely to be primary cardiac in etiology. His natruretic peptide level was normal, his echocardiogram demonstrated preserved ejection fraction. He may have a problem with obesity hypoventilation syndrome. With consequence hypercapnia. * Will hold off on further diuresis * Patient currently is undergoing dialysis. 2. Supraventricular tachycardia and atrial fibrillation * Patient is anticoagulated for the above * He is also on a beta-jackson. He is status post failed ablation. I would recommend that we start him on amiodarone short-term to see whether this would be able to control his heart rate. Depending on the findings further recommendations will be made. * He did have an episode of a wide complex tachycardia which was likely a supraventricular tachycardia with aberrancy. He briefly responded to adenosine but responded to high-dose adenosine combined with intravenous amiodarone. * He was given oral amiodarone to which he is tolerating quite well. * Will start p.o. diltiazem as well to see whether this would be able to take care of his rhythm. Eventually he may need to be considered for reevaluation for ablation 3. Hypertension * Good control on the current medical therapy. No major changes will be made at this time. * * From the cardiac standpoint he appears to be stable and I would not make any major changes. * * * Thank you for allowing me to participate in the care of your patient. Please don't hesitate to call if any issues arise
[2019-04-21 16:25] LABS: Bedside Glucose 190 mg/dL (70-110)
[2019-04-21] MEDS: levoFLOXacin IV 500 MG/100 ML BAG 100 MG IV (18:12)
--- NOTE | 2019-04-21 18:30 | NURSING ---
Reviewed and agreed on all charting with Ruth Ann Sheffield RN
[2019-04-21 19:45] LABS: Bedside Glucose 171 mg/dL (70-110)
[2019-04-21] MEDS: Amiodarone 200 MG Tablet PO (21:12)
[2019-04-21] MEDS: Atorvastatin Calcium 20 MG Tablet PO (21:16)
[2019-04-21 21:25] LABS: Bedside Glucose 232 mg/dL (70-110)
[2019-04-22] VITALS (19 sets, daily range): BP systolic 87–112; BP diastolic 40–60; PULSE 55–92; RESP 12–21; TEMP 36.2–37.1; O2SAT 94–98
--- NOTE | 2019-04-22 06:10 | RAD_ITS ---
STUDY: X-RAY CHEST REASON FOR EXAM: Male, 59 years old. CHF -- HYPOXIA TECHNIQUE: Frontal and lateral views of the chest. COMPARISON: April 19, 2019 FINDINGS: Central catheter on the right extends to the superior vena cava. There is stable mid and lower lung increased opacities. There is no demonstrated pleural abnormality. Sternal cerclage wires are present from a prior sternotomy. There is cardiac enlargement. Normal mediastinum and kelsie. Normal visualized pulmonary arteries. Normal visualized aortic arch and descending thoracic aorta. There are diffuse degenerative changes of the visualized thoracic spine. Normal visualized ribs, clavicles, and shoulders. There is no demonstrated abnormality of the visualized soft tissue structures of the upper abdomen. RAD/Chest PA and Lateral IMPRESSION: Stable bilateral edema or infiltrates. Electronically Signed: Arnold Murrell MD at 8:26 EST , Service support ,
[2019-04-22] MEDS: Insulin Lispro 100 UNIT/ML INSULN.PEN SC ×3 (06:44→21:50)
[2019-04-22 06:55] LABS: Bedside Glucose 153 mg/dL (70-110)
--- NOTE | 2019-04-22 08:41 | PN_ITS ---
Patient Problems: Active and Suspected Problems (Last Reviewed 04/16/19 @ 11:18 by Regulo Figueroa MD) CHF (congestive heart failure) (Acute) MOUNA (acute kidney injury) (Acute) Subjective: Patient did okay overnight. Patient did have hemodialysis yesterday with almost 5 L removed, but is still requiring significant oxygen this morning. Patient continues to report a cough. Patient does report confusion yesterday, but feels better this morning. Objective: Repeat chest x-ray this morning shows continued pulmonary edema without pleural effusions - Physical Exam Vitals/I&O's: Vital Signs Temp Pulse Resp BP Pulse Ox 36.3 C L 68 18 91/43 L 95 04/22/19 08:28 04/22/19 08:28 04/22/19 08:28 04/22/19 08:28 04/22/19 08:28 Oxygen Flow Rate (L/min) 7 Oxygen Delivery Method Nasal Cannula Weight: 159.4 kg Body Mass Index (BMI) 53.4 Finger Stick Blood Glucose 479 Intake and Output for Last 24 Hours 04/20/19 04/21/19 04/22/19 23:59 23:59 23:59 Intake Total 1466.5 / 1466.5 375 / 375 150 / 150 Output Total 4900 / 4900 4600 / 4600 0 / 0 Balance -3433.5 / -3433.5 -4225 / -4225 150 / 150 General: Alert, Oriented x3, Cooperative, No apparent distress, - - Morbidly obese. No conversational dyspnea. HEENT: Atraumatic, PERRLA, EOMI, Normocephalic, - - Slight scleral injection without icterus Oral: Moist Mucosa, No Gingival or Mucosal Lesions/ Ulcerations Neck: Supple, No JVD, No Nodes, Trachea Midline Lungs: No rhonchi, Diminished, Rales, Wheezes - Sporadic at end exhalation Cardiovascular: Normal S1, Normal S2, No murmurs, Irregular Rate, No rub noted, No Gallop Abdomen: Bowel Sounds Present, Soft, Non Tender, Non-Distended, Obese Extremities: No clubbing, No cyanosis, Capillary Refill Less than 3 Seconds, Edema - 4+ lower extremities Skin: No rashes, No breakdown Musculoskeletal: No Tenderness to Palpation of Joints or Extremities Lymphatic: No Cervical, Supraclavicular, or Inguinal Adenopathy Neurological: Cranial nerves II-XII grossly intact, Neuro grossly intact, Motor Exam 5/5 strength throughout Psych/Mental Status: Alert and oriented to time, place, person, mood and affect Microbiology Past 72 Hours 04/18/19 21:15 Sputum, Expectorated/Coughed Gram Stain - Final 04/18/19 21:15 Sputum, Expectorated/Coughed Respiratory Culture - Final Haemophilus influenzae Mixed Malini 04/18/19 08:06 Blood Culture (Wb) - Left Hand Blood Culture - Preliminary No growth in 48 hours. 04/18/19 08:00 Blood Culture (Wb) - Right Hand Blood Culture - Preliminary No growth in 48 hours. Laboratory Results 04/21/19 11:11: POC Glucose 185 H 04/21/19 11:36: Specimen Type ART, Sample Site R Radial, pH 7.26 L, Bicarbonate Actual 35.0 H, POC Total CO2 37, Base Excess 8 H, O2 Saturation 95, ABG pCO2 78.6 H*, ABG pO2 91, Gavin Test POS, O2 Delivery Device Nasal Can, Liter Flow 7.0, Blood Gas Notified Whom HOSP , Blood Gas Notified Time 1881 04/21/19 16:22: POC Glucose 190 H 04/21/19 19:23: POC Glucose 171 H 04/21/19 21:09: POC Glucose 232 H 04/22/19 06:41: POC Glucose 153 H Current Medications Acetaminophen (Tylenol) 650 mg PO Q6H PRN PRN PRN Reason: Pain Score 1-3/Temp > 100.7 F Last Admin: 04/18/19 08:32 Dose: 650 mg Documented by: Al Hydroxide/Mg Hydroxide (Mylanta Ii) 30 ml PO Q6H PRN PRN PRN Reason: Gastric Burning Albuterol Sulfate (Ventolin Aerosols) 2.5 mg INHALATION Q2H PRN PRN PRN Reason: SOB/Wheezing Last Admin: 04/17/19 05:35 Dose: 2.5 mg Documented by: Albuterol/Ipratropium (Duoneb) 3 ml INHALATION Q4H.RT [facility] Last Admin: 04/22/19 08:12 Dose: Not Given Documented by: Amiodarone HCl (Cordarone) 200 mg PO BID [facility] Last Admin: 04/21/19 21:12 Dose: 200 mg Documented by: Atorvastatin Calcium (Lipitor) 20 mg PO QHS [facility] Last Admin: 04/21/19 21:16 Dose: 20 mg Documented by: Diltiazem HCl (Cardizem Cd) 120 mg PO Q12 [facility] Last Admin: 04/21/19 21:12 Dose: Not Given Documented by: Glucagon () 1 mg IM .X1 PRN PRN Reason: Hypoglycemia Guaifenesin (Robitussin) 20 ml PO Q4H PRN PRN PRN Reason: COUGH Dextrose (Dextrose 10%-Water) 250 mls @ 999 mls/hr IV .Q16M PRN; Protocol PRN Reason: HYPOGLYCEMIA Sodium Chloride () 1,000 mls @ 15 mls/hr IV .Q48H [facility] Last Admin: 04/21/19 04:51 Dose: Not Given Documented by: Insulin Glargine (Lantus ([facility])) 40 units SC BID [facility] Last Admin: 04/21/19 21:13 Dose: Not Given Documented by: Insulin Human Lispro (Humalog Kwikpen ([facility])) 0 unit SC ACHS [facility]; Protocol Last Admin: 04/22/19 06:44 Dose: 3 units Documented by: Levofloxacin (Levaquin Tablet) 250 mg PO Q48@0600 [facility] Magnesium Hydroxide (Milk Of Magnesia) 30 ml PO DAILY PRN PRN PRN Reason: Constipation Melatonin (Melatonin) 3 mg PO QHS PRN PRN PRN Reason: INSOMNIA Metoprolol Succinate (Toprol Xl (Beta Rakesh)) 100 mg PO DAILY [facility] Last Admin: 04/21/19 15:29 Dose: Not Given Documented by: Nitroglycerin (Nitrostat) 0.4 mg SUBLINGUAL Q5M PRN PRN Reason: CARDIAC/CHEST PAIN Ondansetron HCl (Zofran) 4 mg IV Q8H PRN PRN PRN Reason: NAUSEA/VOMITING Oxycodone HCl (Oxyir) 5 mg PO Q4H PRN PRN PRN Reason: Pain Score 4-5/10 Last Admin: 04/19/19 07:54 Dose: 5 mg Documented by: Oxycodone HCl (Oxyir) 10 mg PO Q4H PRN PRN PRN Reason: Pain Score 6-10/10 Prednisone () 40 mg PO DAILY@0800 [facility] Stop: 04/24/19 08:01 Last Admin: 04/21/19 18:14 Dose: Not Given Documented by: Senna (Senokot) 2 tablet PO DAILY PRN PRN Reason: Constipation Sodium Chloride () 10 - 40 ml IV UD PRN PRN Reason: SALINE FLUSH Last Admin: 04/21/19 12:30 Dose: 10 ml Documented by: Warfarin Sodium (Coumadin (Pbkc)) 2.5 mg PO TuWe@2200 DANIEL Warfarin Sodium (Coumadin (Pbkc)) 5 mg PO SuMoThFrSa@2200 [facility] Last Admin: 04/21/19 21:16 Dose: 5 mg Documented by: Clinical Impression(s) from Imaging Studies Chest X-Ray 04/22/19 06:10 IMPRESSION: Stable bilateral edema or infiltrates. Electronically Signed: Arnold Murrell MD at 8:26 EST , Service support , Medical Necessity - Tobacco Use Smoking Status: Former smoker Assessment/Plan All Active Problems (Last Reviewed 04/16/19 @ 11:18 by Regulo Figueroa MD) CHF (congestive heart failure) (Acute) MOUNA (acute kidney injury) (Acute) Acute respiratory failure (Resolved) Pneumonia, community acquired (Resolved) Sepsis (Resolved) RECOMMENDATIONS: 1. Continue volume removal with hemodialysis 2. Continue BiPAP with sleep. Patient advised to initiate BiPAP with hemodialysis 3. Complete steroid burst 4. Continue current dose of basal insulin 5. Low threshold for ABG with change in mental status IMPRESSIONS: 1. Acute on chronic hypercarbic respiratory failure Unclear etiology at this time. Patient does have clinical signs and symptoms of increased volume status with recent travel. Work-up for pulmonary embolism was negative. Patient did appear to respond well to steroid therapy. Patient was transitioned over to prednisone to complete a burst. Patient appears to be more awake at this time compared to yesterday. Would consider significant volume removal if okay with nephrology. Encourage incentive spirometer given need for tunneled hemodialysis line. Patient does have potenti al pathologic growth on sputum culture, but is not having any fevers or leukocytosis. Given failure to improve, patient was initiated on Levaquin therapy. It is unclear if this represents a true pneumonia without other constitutional symptoms. 2. Acute on chronic kidney disease stage III/hyperkalemia Baseline creatinine of 1.3, but significant worsening after diuretic therapy. Patient does have a renal ultrasound showing no hydronephrosis. Given lack of hydronephrosis, would consider diuretic therapy versus volume removal with hemodialysis if okay with nephrology. Hyperkalemia is slightly improved compared to previous. Patient work-up appears to be suggestive of possible lupus with a positive double-stranded DNA antibody. 3. Chronic A. fib/chronic diastolic congestive heart failure/history of VSD repair/pulmonary hypertension Patient anticoagulated and doing well. No signs or symptoms of bleeding at this time. Patient may have an element of pulmonary hypertension leading to current findings. Diuretics have previously been held secondary to renal function. Patient is on significant beta-rakesh at this time. Cardiology could perform a right heart catheterization for further clarification on volume status. Lower extremity edema is suggestive of diastolic dysfunction despite unimpressive BNP. Patient's echo is limited given body habitus. 4. Hypertension/type 2 diabetes mellitus/hyperlipidemia/morbid obesity/noncompliant LASHAWN Complicates care, management, recovery and prognosis. Consider additional basal insulin given hyperglycemia. Patient is tolerating BiPAP at this time. We will continue with this therapy. Okay to continue statin from my perspective. Code Visit Inpatient E&M: 13076 [facility] L3
[2019-04-22 09:11] LABS: Absolute Lymphocyte Count 0.76 X10^3/uL (0.83-4.51); Absolute Neutrophil Count 9.4 X10^3/uL (2.0-7.7); Basophil# 0.01 X10^3/uL; Basophil% 0.1 % (0-1); Eosinophil# 0.01 X10^3/uL; Eosinophils% 0.1 % (0-5); Hematocrit 39.5 % (40-54); Hemoglobin 11.7 g/dL (13.0-16.5); Lymphocyte # 0.76 X10^3/ul (4.0); Lymphocyte % 6.4 % (19-41); Mean Corp Hgb Conc 29.6 g/dL (32-36); Mean Corpuscular Hgb 27.3 pg (27.0-32.0); Mean Corpuscular Volume 92.1 fL (80-94); Mean Platelet Vol. 9.2 fl (6.2-12.0); Monocyte# 1.61 X10^3/uL; Monocyte% 13.6 % (0-10); NRBC Flagged by Analyzer 0 % (0-5); POSITIVE DIFFERENTIAL YES; Platelet Count 172 K/mm3 (150-450); RBC Distribution Width CV 15.1 % (11.6-14.6); Red Blood Count 4.29 M/mm3 (4.6-6.2); White Blood Count 11.9 K/mm3 (4.4-11.0)
[2019-04-22 09:22] LABS: Anion Gap 7 (5-15); BUN 76 mg/dL (7-18); BUN/Creat Ratio 15.8 RATIO (10-20); Calcium,Total 8.3 mg/dL (8.5-10.1); Chloride 93 mmol/L (98-107); Creatinine, Serum 4.81 mg/dL (0.70-1.30); EST Glomerular Filtration Rate 13 mL/min (>60); Est Glom Filt Rate - Afr Amer 16 mL/min (>60); Glucose 227 mg/dL (74-106); Potassium 4.7 mmol/L (3.5-5.1); Sodium Level 132 mmol/L (136-145)
[2019-04-22 09:45] LABS: Differential Indicated SCAN CRITERIA MET
[2019-04-22] MEDS: Amiodarone 200 MG Tablet PO ×2 (10:00→21:50)
[2019-04-22] MEDS: predniSONE 20 MG Tablet 40 MG PO (10:00)
[2019-04-22] MEDS: Metoprolol(XL)Succ 100 MG Tablet PO (10:04)
[2019-04-22 10:11] LABS: Differential Comment SCANNED
[2019-04-22 11:21] LABS: Bedside Glucose 245 mg/dL (70-110)
--- NOTE | 2019-04-22 13:00 | PN_ITS ---
Patient Problems: Active and Suspected Problems (Last Reviewed 04/16/19 @ 11:18 by Regulo Figueroa MD) CHF (congestive heart failure) (Acute) MOUNA (acute kidney injury) (Acute) Subjective: Patient seen and examined today. He had no complaints and had an uneventful night. He did require BiPAP overnight and was transitioned to oxygen by nasal cannula this morning and was on 8 L at time of review. Review of symptoms otherwise negative. Labs and vitals reviewed. He had 4.6 L of fluid removed by dialysis yesterday and had 4.8 L removed by dialysis 2 days ago. Vitals/I&O's: Vital Signs Temp Pulse Resp BP Pulse Ox 97.4 F L 69 20 H 91/40 L 94 04/22/19 09:56 04/22/19 10:04 04/22/19 09:56 04/22/19 09:56 04/22/19 12:50 Oxygen Flow Rate (L/min) 5 Oxygen Delivery Method Nasal Cannula Weight: 351 lb 6.669 oz Body Mass Index (BMI) 53.4 Finger Stick Blood Glucose 479 Intake and Output for Last 24 Hours 04/20/19 04/21/19 04/22/19 23:59 23:59 23:59 Intake Total 1466.5 / 1466.5 375 / 375 540 / 540 Output Total 4900 / 4900 4600 / 4600 0 / 0 Balance -3433.5 / -3433.5 -4225 / -4225 540 / 540 General: Alert, oriented, cooperative. HEENT: Atraumatic, PERRLA, EOMI, Normocephalic Oral: Moist Mucosa Neck: Supple, No JVD, Negative Carotid Bruits Lungs: - - decreased breath sounds bibasally, no wheezes or crackles. on 8L oxygen by nasal canula Cardiovascular: Regular Rhythm, Normal S1, Normal S2, No murmurs, regular rate Abdomen: Bowel Sounds Present, Soft, Non Tender, Non-Distended, No Hepato- splenomegaly, Obese Extremities: No clubbing, No cyanosis, Edema - bipedal 2+ pitting edema Skin: No rashes, No breakdown Musculoskeletal: No Tenderness to Palpation of Joints or Extremities; dialysis catheter in right chest Lymphatic: No Cervical, Supraclavicular, or Inguinal Adenopathy Neurological: Cranial nerves II-XII grossly intact, Neuro grossly intact, Motor Exam 5/5 strength throughout Psych/Mental Status: normal affect. Microbiology Past 72 Hours 04/18/19 21:15 Sputum, Expectorated/Coughed Gram Stain - Final 04/18/19 21:15 Sputum, Expectorated/Coughed Respiratory Culture - Final Haemophilus influenzae Mixed Malini 04/18/19 08:06 Blood Culture (Wb) - Left Hand Blood Culture - Preliminary No growth in 48 hours. 04/18/19 08:00 Blood Culture (Wb) - Right Hand Blood Culture - Preliminary No growth in 48 hours. Laboratory Results 04/21/19 16:22: POC Glucose 190 H 04/21/19 19:23: POC Glucose 171 H 04/21/19 21:09: POC Glucose 232 H 04/22/19 06:41: POC Glucose 153 H 04/22/19 08:57: WBC 11.9 H, RBC 4.29 L, Hgb 11.7 L, Hct 39.5 L, MCV 92.1, MCH 27.3, MCHC 29.6 L, RDW Std Deviation 51.0 H, RDW Coeff of Janiya 15.1 H, Plt Count 172, MPV 9.2, Immature Gran % (Auto) 0.800, Neut % (Auto) 79.0 H, Lymph % (Auto) 6.4 L, [place] % (Auto) 13.6 H, Eos % (Auto) 0.1, Baso % (Auto) 0.1, Absolute Neuts (auto) 9.4 H, Absolute Lymphs (auto) 0.76 L, Nucleated RBC % 0, Differential Comment SCANNED, Diff Path Review August foll 04/22/19 08:57: Sodium 132 L, Potassium 4.7, Chloride 93 L, Carbon Dioxide 32.0, Anion Gap 7, BUN 76 H, Creatinine 4.81 H, Estim Creat Clear Calc 15.60, Est GFR (MDRD) Af Amer 16 L, Est GFR (MDRD) Non-Af 13 L, BUN/Creatinine Ratio 15.8, Glucose 227 H, Calcium 8.3 L 04/22/19 11:18: POC Glucose 245 H Diagnostic Data Chest CT 04/17/19 07:43 IMPRESSION: Patchy bilateral pulmonary infiltrates. Follow-up is recommended. Electronically Signed: Fortunato Francisco, at 14:26 EST , Service support , Lung Scan-VQ NM 04/17/19 07:51 IMPRESSION: 1. VERY LOW PROBABILITY FOR PULMONARY EMBOLUS (<10%) 99m Tc DTPA aerosol ventilation / 99m Tc MAA pulmonary perfusion imaging examination, according to PIOPED II interpretive criteria with regard given to the presence of > 2 ventilation-perfusion matches without corresponding radiographic changes. (Soziggy et al, Radiology 246: 941, 2008 Soziggy et al, J Nucl Med 49: 1741, 2008). 2. Central clumping of the aerosol may be secondary to obstructive airway mechanics and or clinical tachypnea. Electronically Signed: Neftaly Marin DO at 14:07 EST Tel , Service support , Renal Ultrasound 04/17/19 12:16 IMPRESSION: Findings consistent with nonspecific renal parenchymal disease. No evidence for renal obstruction. Left renal cyst measuring 2.5 x 2.4 x 2.5 cm. Electronically Signed: Adonis Seals MD at 22:52 EST , Service support , Chest X-Ray 04/22/19 06:10 IMPRESSION: Stable bilateral edema or infiltrates. Electronically Signed: Arnold Murrell MD at 8:26 EST , Service support , Current Medications Acetaminophen (Tylenol) 650 mg PO Q6H PRN PRN PRN Reason: Pain Score 1-3/Temp > 100.7 F Last Admin: 04/18/19 08:32 Dose: 650 mg Documented by: Al Hydroxide/Mg Hydroxide (Mylanta Ii) 30 ml PO Q6H PRN PRN PRN Reason: Gastric Burning Albuterol Sulfate (Ventolin Aerosols) 2.5 mg INHALATION Q2H PRN PRN PRN Reason: SOB/Wheezing Last Admin: 04/17/19 05:35 Dose: 2.5 mg Documented by: Albuterol/Ipratropium (Duoneb) 3 ml INHALATION Q4H.RT [facility] Last Admin: 04/22/19 08:12 Dose: Not Given Documented by: Amiodarone HCl (Cordarone) 200 mg PO BID [facility] Last Admin: 04/22/19 10:00 Dose: 200 mg Documented by: Atorvastatin Calcium (Lipitor) 20 mg PO QHS [facility] Last Admin: 04/21/19 21:16 Dose: 20 mg Documented by: Glucagon () 1 mg IM .X1 PRN PRN Reason: Hypoglycemia Guaifenesin (Robitussin) 20 ml PO Q4H PRN PRN PRN Reason: COUGH Dextrose (Dextrose 10%-Water) 250 mls @ 999 mls/hr IV .Q16M PRN; Protocol PRN Reason: HYPOGLYCEMIA Sodium Chloride () 1,000 mls @ 15 mls/hr IV .Q48H [facility] Last Admin: 04/22/19 11:56 Dose: Not Given Documented by: Insulin Glargine (Lantus (Bkc)) 40 units SC BID [facility] Last Admin: 04/22/19 10:01 Dose: 40 units Documented by: Insulin Human Lispro (Humalog Kwikpen (Bkc)) 0 unit SC ACHS [facility]; Protocol Last Admin: 04/22/19 11:55 Dose: 6 units Documented by: Levofloxacin (Levaquin Tablet) 250 mg PO Q48@0600 [facility] Magnesium Hydroxide (Milk Of Magnesia) 30 ml PO DAILY PRN PRN PRN Reason: Constipation Melatonin (Melatonin) 3 mg PO QHS PRN PRN PRN Reason: INSOMNIA Metoprolol Succinate (Toprol Xl (Beta Rakesh)) 100 mg PO DAILY [facility] Last Admin: 04/22/19 10:04 Dose: 100 mg Documented by: Nitroglycerin (Nitrostat) 0.4 mg SUBLINGUAL Q5M PRN PRN Reason: CARDIAC/CHEST PAIN Ondansetron HCl (Zofran) 4 mg IV Q8H PRN PRN PRN Reason: NAUSEA/VOMITING Oxycodone HCl (Oxyir) 5 mg PO Q4H PRN PRN PRN Reason: Pain Score 4-5/10 Last Admin: 04/19/19 07:54 Dose: 5 mg Documented by: Oxycodone HCl (Oxyir) 10 mg PO Q4H PRN PRN PRN Reason: Pain Score 6-10/10 Prednisone () 40 mg PO DAILY@0800 [facility] Stop: 04/24/19 08:01 Last Admin: 04/22/19 10:00 Dose: 40 mg Documented by: Stefania (Senokot) 2 tablet PO DAILY PRN PRN Reason: Constipation Sodium Chloride () 10 - 40 ml IV UD PRN PRN Reason: SALINE FLUSH Last Admin: 04/21/19 12:30 Dose: 10 ml Documented by: Warfarin Sodium (Coumadin (Pbkc)) 2.5 mg PO TuWe@0 [facility] Warfarin Sodium (Coumadin (Pbkc)) 5 mg PO SuMoThFrSa@2200 [facility] Last Admin: 04/21/19 21:16 Dose: 5 mg Documented by: STROKE Vital Signs/Narrative: Vital Signs Temp Pulse Resp BP Pulse Ox 04/22/19 12:50 94 04/22/19 10:04 69 04/22/19 09:56 97.4 F L 69 20 H 91/40 L 97 04/22/19 09:01 98 Medical Necessity - Tobacco Use Smoking Status: Former smoker Assessment/Plan All Active Problems (Last Reviewed 04/16/19 @ 11:18 by Regulo Figueroa MD) CHF (congestive heart failure) (Acute) MOUNA (acute kidney injury) (Acute) Acute respiratory failure (Resolved) Pneumonia, community acquired (Resolved) Sepsis (Resolved) 1. acute hypoxic and hypercapnic respiratory failure * still requiring BIPAP overnight. * 2D echo: EF of 60% with no regional wall motion abnormalities noted. Normal right ventricular size and systolic function. Left and right atria were not well visualized. * Duplex was negative for any PE. * Pulmonology on board. VQ scan showed very low probability for PE. * Continue breathing treatments. Titrate oxygen to maintain saturation above 90%. Use BiPAP PRN. * Of note, sputum culture gram-negative coccobacillus (Hemophilus influenzae), and gram positive rods. * patient currently on PO levaquin q48 hrs * 2. MOUNA on CKD with hyperkalemia * Creatinine is 4.81 today * Potassium is 4.7 today. * has had 2 sessions of dialysis with removal of ~ 9.5L of fluid in total * For dialysis today. * Nephrology on board. * * 3. Nonsustained Vtach * On amiodarone, cardizem and metoprolol. * HR has remained stable. He did have some episodes of bradycardia yesterday, with HR going as low as 50. However, it has remained stable since,a nd is in the 60s. * 5. Hypertension * Blood pressure still remains borderline low. * Lisinopril, spironolactone and torsemide on hold. On amiodarone and Cardizem and metoprolol on account of A. fib and nonsustained V. tach. * 6. Type 2 diabetes mellitus: Metformin on hold on account of MOUNA. Insulin sliding scale. Accu-Cheks AC at bedtime. 7. Hyperlipidemia: On statin. 8. History of severe pulmonary hypertension: to follow up with pulmonology and cardiology after discharge 9. A. fib: * Status post ablation x3. * On p.o. amiodarone 200 mg twice daily, Cardizem 120 mg twice daily and metoprolol. * INR today is pending * On Coumadin. 10. Chronic Heart failure with preserved ejection fraction: * 2D echo in October 2018 showed EF of 50%. * 2D echo during this admission shows EF of 60%with no regional wall motion abnormalities * cardiology on board. * 11. Super morbid obesity: BMI is 52.5. This complicates management, expected recovery and prognosis. 12. LASHAWN: Currently on BiPAP. Pulmonology on board. 13. History of congenital heart disease: * Status post VSD repair at age 18 and PDA repair at age 3. * Stable. * DVT prophylaxis: INR pending today. On coumadin Code status: full code Code Visit Inpatient E&M: [id number] [facility] Hosp L3
--- NOTE | 2019-04-22 13:24 | PCM.PN.CARD ---
Subjectve: The patient is awake and alert. He believes his breathing has improved overall. Objective: Vital Signs Temp Pulse Resp BP Pulse Ox 97.4 F L 69 20 H 91/40 L 94 04/22/19 09:56 04/22/19 10:04 04/22/19 09:56 04/22/19 09:56 04/22/19 12:50 Oxygen Flow Rate (L/min) 5 Oxygen Delivery Method Nasal Cannula Weight: 351 lb 6.669 oz Body Mass Index (BMI) 53.4 Finger Stick Blood Glucose 479 Intake and Output for Last 24 Hours 04/20/19 04/21/19 04/22/19 23:59 23:59 23:59 Intake Total 1466.5 / 1466.5 375 / 375 540 / 540 Output Total 4900 / 4900 4600 / 4600 0 / 0 Balance -3433.5 / -3433.5 -4225 / -4225 540 / 540 General: Awake, Alert, Oriented x 3, Cooperative, No Acute Distress, Obese HEENT: Atraumatic, Normocephalic, PERRL, EOMI, Sclera Non Icteric Oral: Moist Mucosa Neck: Supple, Good ROM Lungs: Diminished Champ Bases Cardiovascular: Regular Rhythm, Normal S1, Normal S2 Abdomen: Bowel Sounds Present, Soft, Non Tender, Obese Neurological: No Focal Motor or Sensory Deficit Psych/Mental Status: Appropriate 04/22/19 08:57: WBC 11.9 H, RBC 4.29 L, Hgb 11.7 L, Hct 39.5 L, MCV 92.1, MCH 27.3, MCHC 29.6 L, Plt Count 172, MPV 9.2, Immature Gran % (Auto) 0.800, Neut % (Auto) 79.0 H, Lymph % (Auto) 6.4 L, [place] % (Auto) 13.6 H, Eos % (Auto) 0.1, Baso % (Auto) 0.1, Absolute Neuts (auto) 9.4 H, Nucleated RBC % 0 04/22/19 08:57: Sodium 132 L, Potassium 4.7, Chloride 93 L, Carbon Dioxide 32.0, Anion Gap 7, BUN 76 H, Creatinine 4.81 H, Est GFR (MDRD) Af Amer 16 L, Est GFR (MDRD) Non-Af 13 L, BUN/Creatinine Ratio 15.8, Glucose 227 H, Calcium 8.3 L Rhythm: Sinus rhythm Medical Necessity - Tobacco Use Smoking Status: Former smoker Assessment/Plan 1. Wide complex tachycardia thought secondary to SVT with aberrancy At the present time the patient appears to remaining in sinus rhythm. He has been on multiple rate limiting/antiarrhythmic agents. At the present time secondary to his low blood pressure his diltiazem will be placed on hold. He will continue his beta-jackson and his amiodarone therapy. 2. Atrial fibrillation status post EPS/RFA He has undergone atrial fibrillation ablation in the past. He has had recurrent supraventricular tachydysrhythmias with aberrancy. He is continuing rate limiting therapy and antiarrhythmic therapy. He has been on anticoagulant therapy. 3. Chronic diastolic mediated CHF He will continue medical therapy. He is also continuing nephrology evaluation/dialysis therapy to assist in volume management. 4. PDA and VSD status post repair-remote This apparently occurred at approximately age 3. 5. Hyperlipidemia He will continue medical management. 6. Hypertension His blood pressure will be followed. His medications to be adjusted to minimize hypotension and hypertension. Thus at the present time his diltiazem will be placed on hold. He will continue other medications. 7. Diabetes mellitus He will continue under evaluation care per internal medicine. 8. Obstructive sleep apnea He will continue evaluation care by his other physicians. 9. Pulmonary hypertension He has been diagnosed with pulmonary hypertension based upon his previous diagnostic studies. He will continue medical management, pulmonary support, etc. as deemed appropriate. 10. Acute on chronic renal insufficiency He will continue evaluation care by nephrology with hemodialysis. Comment: The patient's case has been discussed and reviewed with the patient. This note was generated using a voice recognition system and there may be incorrect words, spelling or punctuation that were not noted when reviewing the office note prior to saving.
[2019-04-22 14:00] LABS: International Normalized Ratio 2.5; Prothrombin Time (Protime)PT. 26.9 SECONDS (11.7-14.9)
[2019-04-22 16:55] LABS: Bedside Glucose 288 mg/dL (70-110)
--- NOTE | 2019-04-22 19:38 | PCM.PN.REN ---
Patient Problems: Active and Suspected Problems (Last Reviewed 04/16/19 @ 11:18 by Regulo Figueroa MD) CHF (congestive heart failure) (Acute) MOUNA (acute kidney injury) (Acute) Objective: Following for MOUNA. Pt is on BiPAP. Denies CP. SOB is better. No nausea. Pt is seen during HD. - Physical Exam Vitals/I&O's: Vital Signs Temp Pulse Resp BP Pulse Ox 98.5 F 87 20 H 105/59 L 96 04/22/19 16:10 04/22/19 16:10 04/22/19 16:10 04/22/19 16:10 04/22/19 15:45 Oxygen Flow Rate (L/min) 3 Oxygen Delivery Method Nasal Cannula Weight: 159.4 kg Body Mass Index (BMI) 53.4 Finger Stick Blood Glucose 479 Intake and Output for Last 24 Hours 04/20/19 04/21/19 04/22/19 23:59 23:59 23:59 Intake Total 1466.5 / 1466.5 375 / 375 1020 / 1020 Output Total 4900 / 4900 4600 / 4600 0 / 0 Balance -3433.5 / -3433.5 -4225 / -4225 1020 / 1020 General: Alert, Oriented x3, Cooperative HEENT: Atraumatic, EOMI Oral: Moist Mucosa Neck: Supple Lungs: Diminished - bilaterally Cardiovascular: Normal S1, Normal S2, No murmurs Abdomen: Bowel Sounds Present, Soft, Non Tender Extremities: Edema - 3+ Microbiology Past 72 Hours 04/18/19 21:15 Sputum, Expectorated/Coughed Gram Stain - Final 04/18/19 21:15 Sputum, Expectorated/Coughed Respiratory Culture - Final Haemophilus influenzae Mixed Malini 04/18/19 08:06 Blood Culture (Wb) - Left Hand Blood Culture - Preliminary No growth in 48 hours. 04/18/19 08:00 Blood Culture (Wb) - Right Hand Blood Culture - Preliminary No growth in 48 hours. Laboratory Results 04/21/19 19:23: POC Glucose 171 H 04/21/19 21:09: POC Glucose 232 H 04/22/19 06:41: POC Glucose 153 H 04/22/19 08:57: WBC 11.9 H, RBC 4.29 L, Hgb 11.7 L, Hct 39.5 L, MCV 92.1, MCH 27.3, MCHC 29.6 L, RDW Std Deviation 51.0 H, RDW Coeff of Janiya 15.1 H, Plt Count 172, MPV 9.2, Immature Gran % (Auto) 0.800, Neut % (Auto) 79.0 H, Lymph % (Auto) 6.4 L, [place] % (Auto) 13.6 H, Eos % (Auto) 0.1, Baso % (Auto) 0.1, Absolute Neuts (auto) 9.4 H, Absolute Lymphs (auto) 0.76 L, Nucleated RBC % 0, Differential Comment SCANNED, Diff Path Review August04/22/19 08:57: Sodium 132 L, Potassium 4.7, Chloride 93 L, Carbon Dioxide 32.0, Anion Gap 7, BUN 76 H, Creatinine 4.81 H, Estim Creat Clear Calc 15.60, Est GFR (MDRD) Af Amer 16 L, Est GFR (MDRD) Non-Af 13 L, BUN/Creatinine Ratio 15.8, Glucose 227 H, Calcium 8.3 L 04/22/19 11:18: POC Glucose 245 H 04/22/19 13:45: PT 26.9 H, INR 2.5 04/22/19 16:50: POC Glucose 288 H Current Medications Acetaminophen (Tylenol) 650 mg PO Q6H PRN PRN PRN Reason: Pain Score 1-3/Temp > 100.7 F Last Admin: 04/18/19 08:32 Dose: 650 mg Documented by: Al Hydroxide/Mg Hydroxide (Mylanta Ii) 30 ml PO Q6H PRN PRN PRN Reason: Gastric Burning Albuterol Sulfate (Ventolin Aerosols) 2.5 mg INHALATION Q2H PRN PRN PRN Reason: SOB/Wheezing Last Admin: 04/17/19 05:35 Dose: 2.5 mg Documented by: Albuterol/Ipratropium (Duoneb) 3 ml INHALATION Q4H.RT [facility] Last Admin: 04/22/19 08:12 Dose: Not Given Documented by: Amiodarone HCl (Cordarone) 200 mg PO BID [facility] Last Admin: 04/22/19 10:00 Dose: 200 mg Documented by: Atorvastatin Calcium (Lipitor) 20 mg PO QHS [facility] Last Admin: 04/21/19 21:16 Dose: 20 mg Documented by: Glucagon () 1 mg IM .X1 PRN PRN Reason: Hypoglycemia Guaifenesin (Robitussin) 20 ml PO Q4H PRN PRN PRN Reason: COUGH Heparin Sodium (Porcine) () 0 units IV X1 [facility] Stop: 04/22/19 23:59 Dextrose (Dextrose 10%-Water) 250 mls @ 999 mls/hr IV .Q16M PRN; Protocol PRN Reason: HYPOGLYCEMIA Sodium Chloride () 1,000 mls @ 15 mls/hr IV .Q48H [facility] Last Admin: 04/22/19 11:56 Dose: Not Given Documented by: Insulin Glargine (Lantus ([facility])) 40 units SC BID [facility] Last Admin: 04/22/19 10:01 Dose: 40 units Documented by: Insulin Human Lispro (Humalog Kwikpen ([facility])) 0 unit SC ACHS [facility]; Protocol Last Admin: 04/22/19 16:55 Dose: Not Given Documented by: Levofloxacin (Levaquin Tablet) 250 mg PO Q48@0600 [facility] Magnesium Hydroxide (Milk Of Magnesia) 30 ml PO DAILY PRN PRN PRN Reason: Constipation Melatonin (Melatonin) 3 mg PO QHS PRN PRN PRN Reason: INSOMNIA Metoprolol Succinate (Toprol Xl (Beta Rakesh)) 100 mg PO DAILY [facility] Last Admin: 04/22/19 10:04 Dose: 100 mg Documented by: Nitroglycerin (Nitrostat) 0.4 mg SUBLINGUAL Q5M PRN PRN Reason: CARDIAC/CHEST PAIN Ondansetron HCl (Zofran) 4 mg IV Q8H PRN PRN PRN Reason: NAUSEA/VOMITING Oxycodone HCl (Oxyir) 5 mg PO Q4H PRN PRN PRN Reason: Pain Score 4-5/10 Last Admin: 04/19/19 07:54 Dose: 5 mg Documented by: Oxycodone HCl (Oxyir) 10 mg PO Q4H PRN PRN PRN Reason: Pain Score 6-10/10 Prednisone () 40 mg PO DAILY@0800 [facility] Stop: 04/24/19 08:01 Last Admin: 04/22/19 10:00 Dose: 40 mg Documented by: Senna (Senokot) 2 tablet PO DAILY PRN PRN Reason: Constipation Sodium Chloride () 10 - 40 ml IV UD PRN PRN Reason: SALINE FLUSH Last Admin: 04/21/19 12:30 Dose: 10 ml Documented by: Warfarin Sodium (Coumadin (Pbkc)) 2.5 mg PO TuWe@2200 DANIEL Warfarin Sodium (Coumadin (Pbkc)) 5 mg PO SuMoThFrSa@2200 DANIEL Last Admin: 04/21/19 21:16 Dose: 5 mg Documented by: Medical Necessity - Tobacco Use Smoking Status: Former smoker Assessment/Plan All Active Problems (Last Reviewed 04/16/19 @ 11:18 by Regulo Figueroa MD) CHF (congestive heart failure) (Acute) MOUNA (acute kidney injury) (Acute) Acute respiratory failure (Resolved) Pneumonia, community acquired (Resolved) Sepsis (Resolved) 1. Acute kidney injury on chronic kidney disease stage III. Baseline creatinine is around 1.3. Renal ultrasound without any hydronephrosis, echogenic kidneys. Serologies reviewed. Double-stranded DNA is elevated. C3 is normal. Clinical significance of this is unclear at this point. If his renal function does not recover in the future, will consider kidney biopsy. Suspect pt has diabetic nephropathy. Dialysis today. I supervised and saw the pt on HD: 4 hrs treatment using F160 dialyzer, Qb400. UF 3 L. Awaiting outpatient dialysis unit placement. 2. CHF due to daistolic dysfunction and MOUNA. O>I with dialysis. BP is OK on metoprolol and with UF on dialysis. 3. Atrial fibrillation. HR is controlled. he is on warfarin. Cardiology following. 4. Acute hypercapnic/hypoxic respiratory failure. O>I with HD. On BiPAP-management as per pulmonary.
--- NOTE | 2019-04-22 20:45 | DIALYSIS ---
hemodialysis completed x 3.5 hrs. Access via right chest HD cath. net fluid removal 3000ml. Pt berto sell. See HD flowsheet on chart. report to Gabo.
[2019-04-22] MEDS: Atorvastatin Calcium 20 MG Tablet PO (21:50)
[2019-04-22] MEDS: Acetaminophen 325 MG Tablet 650 MG PO (21:57)
[2019-04-22 22:06] LABS: Bedside Glucose 245 mg/dL (70-110)
[2019-04-22] MEDS: Heparin 10,000 UNITS/10 ML Vial IV (22:56)
[2019-04-23] VITALS (15 sets, daily range): BP systolic 91–145; BP diastolic 44–87; PULSE 59–69; RESP 12–21; TEMP 36.6–36.8; O2SAT 92–98
[2019-04-23] MEDS: levoFLOXacin 250 MG Tablet PO (05:19)
[2019-04-23] MEDS: Insulin Lispro 100 UNIT/ML INSULN.PEN SC ×4 (06:34→21:45)
[2019-04-23 06:46] LABS: Bedside Glucose 166 mg/dL (70-110)
[2019-04-23 07:01] LABS: Absolute Neutrophil Count 9.8 X10^3/uL (2.0-7.7); Basophil# 0.01 X10^3/uL; Basophil% 0.1 % (0-1); Eosinophil# 0.02 X10^3/uL; Eosinophils% 0.2 % (0-5); Hematocrit 40.3 % (40-54); Hemoglobin 12.1 g/dL (13.0-16.5); Lymphocyte % 5.1 % (19-41); Mean Corpuscular Hgb 26.9 pg (27.0-32.0); Mean Corpuscular Volume 89.6 fL (80-94); Mean Platelet Vol. 9.5 fl (6.2-12.0); Monocyte# 1.23 X10^3/uL; Monocyte% 10.5 % (0-10); NRBC Flagged by Analyzer 0 % (0-5); Neutrophil % 83.3 % (47-70); POSITIVE DIFFERENTIAL YES; Platelet Count 192 K/mm3 (150-450); RBC Distribution Width CV 14.8 % (11.6-14.6); RBC Distribution Width SD 48.6 fl (35.1-43.9); White Blood Count 11.8 K/mm3 (4.4-11.0)
[2019-04-23 07:39] LABS: Anion Gap 7 (5-15); BUN 57 mg/dL (7-18); BUN/Creat Ratio 13.5 RATIO (10-20); Calcium,Total 8.7 mg/dL (8.5-10.1); Chloride 94 mmol/L (98-107); Creatinine, Serum 4.23 mg/dL (0.70-1.30); Differential Indicated SCAN CRITERIA MET; EST Glomerular Filtration Rate 15 mL/min (>60); Est Glom Filt Rate - Afr Amer 19 mL/min (>60); Estimated Creatinine Clearance 17.74 ml/min; Glucose 168 mg/dL (74-106); Potassium 4.8 mmol/L (3.5-5.1); Sodium Level 133 mmol/L (136-145)
[2019-04-23 08:11] LABS: Differential Comment SCANNED
--- NOTE | 2019-04-23 08:48 | PN_ITS ---
Patient Problems: Active and Suspected Problems (Last Reviewed 04/16/19 @ 11:18 by Regulo Figueroa MD) CHF (congestive heart failure) (Acute) MOUNA (acute kidney injury) (Acute) Subjective: Patient did well overnight. Patient is reporting improvement in breathing, but is having difficulty with becoming comfortable. Patient states he had very little sleep overnight. Patient did have hemodialysis yesterday with an additional 3 L removed. - Physical Exam Vitals/I&O's: Vital Signs Temp Pulse Resp BP Pulse Ox 36.7 C 69 18 92/48 L 96 04/23/19 05:20 04/23/19 07:00 04/23/19 05:20 04/23/19 05:20 04/23/19 05:20 Oxygen Flow Rate (L/min) 2 Oxygen Delivery Method Nasal Cannula Weight: 159.4 kg Body Mass Index (BMI) 53.4 Finger Stick Blood Glucose 479 Intake and Output for Last 24 Hours 04/21/19 04/22/19 04/23/19 23:59 23:59 23:59 Intake Total 375 / 375 1320 / 1320 200 / 200 Output Total 4600 / 4600 3000 / 3000 100 / 100 Balance -4225 / -4225 -1680 / -1680 100 / 100 General: Alert, Oriented x3, Cooperative, No apparent distress, - - Morbidly obese. Speaking in full sentences. HEENT: Atraumatic, PERRLA, EOMI, Normocephalic, - - No scleral icterus or injection noted Oral: Moist Mucosa, No Gingival or Mucosal Lesions/ Ulcerations Neck: Supple, No Nodes, Trachea Midline, - - Difficult to assess JVD secondary to body habitus Lungs: No rhonchi, No wheeze, Diminished, Rales, - - Symmetric expansion. Cardiovascular: Normal S1, Normal S2, No murmurs, Irregular Rate, No rub noted, No Gallop Abdomen: Bowel Sounds Present, Soft, Non Tender, Non-Distended, Obese Extremities: No clubbing, No cyanosis, Edema - Improving Skin: No rashes, No breakdown, - - Some venous stasis changes of the lower extremities Musculoskeletal: No Tenderness to Palpation of Joints or Extremities Lymphatic: No Cervical, Supraclavicular, or Inguinal Adenopathy Neurological: Cranial nerves II-XII grossly intact, Neuro grossly intact, Motor Exam 5/5 strength throughout Psych/Mental Status: Anxious, Restless Microbiology Past 72 Hours 04/18/19 21:15 Sputum, Expectorated/Coughed Gram Stain - Final 04/18/19 21:15 Sputum, Expectorated/Coughed Respiratory Culture - Final Haemophilus influenzae Mixed Malini 04/18/19 08:06 Blood Culture (Wb) - Left Hand Blood Culture - Preliminary No growth in 48 hours. 04/18/19 08:00 Blood Culture (Wb) - Right Hand Blood Culture - Preliminary No growth in 48 hours. Laboratory Results 04/22/19 08:57: WBC 11.9 H, RBC 4.29 L, Hgb 11.7 L, Hct 39.5 L, MCV 92.1, MCH 27.3, MCHC 29.6 L, RDW Std Deviation 51.0 H, RDW Coeff of Janiya 15.1 H, Plt Count 172, MPV 9.2, Immature Gran % (Auto) 0.800, Neut % (Auto) 79.0 H, Lymph % (Auto) 6.4 L, [place] % (Auto) 13.6 H, Eos % (Auto) 0.1, Baso % (Auto) 0.1, Absolute Neuts (auto) 9.4 H, Absolute Lymphs (auto) 0.76 L, Nucleated RBC % 0, Differential Comment SCANNED, Diff Path Review August04/22/19 08:57: Sodium 132 L, Potassium 4.7, Chloride 93 L, Carbon Dioxide 32.0, Anion Gap 7, BUN 76 H, Creatinine 4.81 H, Estim Creat Clear Calc 15.60, Est GFR (MDRD) Af Amer 16 L, Est GFR (MDRD) Non-Af 13 L, BUN/Creatinine Ratio 15.8, Glucose 227 H, Calcium 8.3 L 04/22/19 11:18: POC Glucose 245 H 04/22/19 13:45: PT 26.9 H, INR 2.5 04/22/19 16:50: POC Glucose 288 H 04/22/19 21:41: POC Glucose 245 H 04/23/19 06:10: WBC 11.8 H, RBC 4.50 L, Hgb 12.1 L, Hct 40.3, MCV 89.6, MCH 26.9 L, MCHC 30.0 L, RDW Std Deviation 48.6 H, RDW Coeff of Janiya 14.8 H, Plt Count 192, MPV 9.5, Immature Gran % (Auto) 0.800, Neut % (Auto) 83.3 H, Lymph % (Auto) 5.1 L, [place] % (Auto) 10.5 H, Eos % (Auto) 0.2, Baso % (Auto) 0.1, Absolute Neuts (auto) 9.8 H, Absolute Lymphs (auto) 0.60 L, Nucleated RBC % 0, Differential Comment SCANNED 04/23/19 06:10: Sodium 133 L, Potassium 4.8, Chloride 94 L, Carbon Dioxide 32.0, Anion Gap 7, BUN 57 H, Creatinine 4.23 H, Estim Creat Clear Calc 17.74, Est GFR (MDRD) Af Amer 19 L, Est GFR (MDRD) Non-Af 15 L, BUN/Creatinine Ratio 13.5, Glucose 168 H, Calcium 8.7 04/23/19 06:31: POC Glucose 166 H Current Medications Acetaminophen (Tylenol) 650 mg PO Q6H PRN PRN PRN Reason: Pain Score 1-3/Temp > 100.7 F Last Admin: 04/22/19 21:57 Dose: 650 mg Documented by: Al Hydroxide/Mg Hydroxide (Mylanta Ii) 30 ml PO Q6H PRN PRN PRN Reason: Gastric Burning Albuterol Sulfate (Ventolin Aerosols) 2.5 mg INHALATION Q2H PRN PRN PRN Reason: SOB/Wheezing Last Admin: 04/17/19 05:35 Dose: 2.5 mg Documented by: Albuterol/Ipratropium (Duoneb) 3 ml INHALATION Q4H.RT [facility] Last Admin: 04/22/19 23:00 Dose: Not Given Documented by: Amiodarone HCl (Cordarone) 200 mg PO BID [facility] Last Admin: 04/22/19 21:50 Dose: 200 mg Documented by: Atorvastatin Calcium (Lipitor) 20 mg PO QHS [facility] Last Admin: 04/22/19 21:50 Dose: 20 mg Documented by: Glucagon () 1 mg IM .X1 PRN PRN Reason: Hypoglycemia Guaifenesin (Robitussin) 20 ml PO Q4H PRN PRN PRN Reason: COUGH Dextrose (Dextrose 10%-Water) 250 mls @ 999 mls/hr IV .Q16M PRN; Protocol PRN Reason: HYPOGLYCEMIA Sodium Chloride () 1,000 mls @ 15 mls/hr IV .Q48H [facility] Last Admin: 04/22/19 11:56 Dose: Not Given Documented by: Insulin Glargine (Lantus (Bkc)) 40 units SC BID [facility] Last Admin: 04/22/19 21:52 Dose: Not Given Documented by: Insulin Human Lispro (Humalog Kwikpen (Bk)) 0 unit SC ACHS [facility]; Protocol Last Admin: 04/23/19 06:34 Dose: 3 units Documented by: Levofloxacin (Levaquin Tablet) 250 mg PO Q48@0600 [facility] Last Admin: 04/23/19 05:19 Dose: 250 mg Documented by: Magnesium Hydroxide (Milk Of Magnesia) 30 ml PO DAILY PRN PRN PRN Reason: Constipation Melatonin (Melatonin) 3 mg PO QHS PRN PRN PRN Reason: INSOMNIA Metoprolol Succinate (Toprol Xl (Beta Rakesh)) 100 mg PO DAILY [facility] Last Admin: 04/22/19 10:04 Dose: 100 mg Documented by: Nitroglycerin (Nitrostat) 0.4 mg SUBLINGUAL Q5M PRN PRN Reason: CARDIAC/CHEST PAIN Ondansetron HCl (Zofran) 4 mg IV Q8H PRN PRN PRN Reason: NAUSEA/VOMITING Oxycodone HCl (Oxyir) 5 mg PO Q4H PRN PRN PRN Reason: Pain Score 4-5/10 Last Admin: 04/19/19 07:54 Dose: 5 mg Documented by: Oxycodone HCl (Oxyir) 10 mg PO Q4H PRN PRN PRN Reason: Pain Score 6-10/10 Prednisone () 40 mg PO DAILY@0800 [facility] Stop: 04/24/19 08:01 Last Admin: 04/22/19 10:00 Dose: 40 mg Documented by: Senna (Senokot) 2 tablet PO DAILY PRN PRN Reason: Constipation Sodium Chloride () 10 - 40 ml IV UD PRN PRN Reason: SALINE FLUSH Last Admin: 04/21/19 12:30 Dose: 10 ml Documented by: Warfarin Sodium (Coumadin (Pbkc)) 2.5 mg PO TuWe@2199 [facility] Warfarin Sodium (Coumadin (Pbkc)) 5 mg PO SuMoThFrSa@2199 [facility] Last Admin: 04/22/19 21:49 Dose: 5 mg Documented by: Medical Necessity - Tobacco Use Smoking Status: Former smoker Assessment/Plan All Active Problems (Last Reviewed 04/16/19 @ 11:18 by Regulo Figueroa MD) CHF (congestive heart failure) (Acute) MOUNA (acute kidney injury) (Acute) Acute respiratory failure (Resolved) Pneumonia, community acquired (Resolved) Sepsis (Resolved) RECOMMENDATIONS: 1. Continue volume removal with hemodialysis 2. Continue BiPAP with sleep. Patient advised to initiate BiPAP with hemodialysis 3. Complete steroid burst as directed 4. Continue current dose of basal insulin 5. Low threshold for ABG with change in mental status IMPRESSIONS: 1. Acute on chronic hypercarbic respiratory failure Unclear etiology at this time. Patient does have clinical signs and symptoms of increased volume status with recent travel. Work-up for pulmonary embolism was negative. Patient did appear to respond well to steroid therapy, so would continue to complete a 5-day burst. Patient appears to be more awake at this time compared to yesterday. Would consider continued significant volume removal if okay with nephrology. Patient does have potential pathologic growth on sputum culture, but is not having any fevers or leukocytosis. Given failure to improve, patient was initiated on Levaquin therapy to complete a 6-day course. It is unclear if this represents a true pneumonia without other constitutional symptoms. 2. Acute on chronic kidney disease stage III/hyperkalemia Baseline creatinine of 1.3, but significant worsening after diuretic therapy. Patient does have a renal ultrasound showing no hydronephrosis. Given lack of hydronephrosis, would consider diuretic therapy versus volume removal with hemodialysis if okay with nephrology. Electrolytes are much improved. Uremia is also improving, likely helping patient's mental status. Patient work- up appears to be suggestive of possible lupus with a positive double-stranded DNA antibody. 3. Chronic A. fib/chronic diastolic congestive heart failure/history of VSD repair/pulmonary hypertension Patient anticoagulated and doing well. No signs or symptoms of bleeding at this time. Patient may have an element of pulmonary hypertension leading to current findings. Diuretics have previously been held secondary to renal function. Patient is on significant beta-rakesh at this time. Cardiology could perform a right heart catheterization for further clarification on volume status. Lower extremity edema is suggestive of diastolic dysfunction despite unimpressive BNP. Patient's echo is limited given body habitus. 4. Hypertension/type 2 diabetes mellitus/hyperlipidemia/morbid obesity/noncompliant LASHAWN Complicates care, management, recovery and prognosis. Consider additional basal insulin given hyperglycemia. Patient is tolerating BiPAP at this time. We will continue with this therapy. Okay to continue statin from my perspective. Code Visit Inpatient E&M: 84980 Subs Hosp L2
[2019-04-23] MEDS: Metoprolol(XL)Succ 100 MG Tablet PO (09:57)
[2019-04-23] MEDS: Amiodarone 200 MG Tablet PO ×2 (09:57→21:43)
[2019-04-23] MEDS: predniSONE 20 MG Tablet 40 MG PO (09:58)
[2019-04-23] MEDS: Magnesium Hydroxide 30 ML UDC PO (10:03)
[2019-04-23 11:26] LABS: Bedside Glucose 219 mg/dL (70-110)
--- NOTE | 2019-04-23 14:03 | PN_ITS ---
Patient Problems: Active and Suspected Problems (Last Reviewed 04/16/19 @ 11:18 by Regulo Figueroa MD) CHF (congestive heart failure) (Acute) MOUNA (acute kidney injury) (Acute) Subjective: Patient seen and examined. He was on 2 L of oxygen and looked well. He had no complaints. He was on BiPAP during the night. Review of systems otherwise negative. Labs and vitals reviewed. Creatinine is down to 4.23 today. WBC is 11.8. Hemoglobin is 12.1. He had dialysis with removal of 3 L yesterday. Vitals/I&O's: Vital Signs Temp Pulse Resp BP Pulse Ox 98.3 F 66 16 109/46 L 92 04/23/19 09:55 04/23/19 09:57 04/23/19 09:55 04/23/19 09:55 04/23/19 12:05 Oxygen Flow Rate (L/min) 2 Oxygen Delivery Method Nasal Cannula Weight: 351 lb 6.669 oz Body Mass Index (BMI) 53.4 Finger Stick Blood Glucose 479 Intake and Output for Last 24 Hours 04/21/19 04/22/19 04/23/19 23:59 23:59 23:59 Intake Total 375 / 375 1320 / 1320 200 / 200 Output Total 4600 / 4600 3000 / 3000 100 / 100 Balance -4225 / -4225 -1680 / -1680 100 / 100 General: Alert, oriented, cooperative. HEENT: Atraumatic, PERRLA, EOMI, Normocephalic Oral: Moist Mucosa Neck: Supple, No JVD, Negative Carotid Bruits Lungs: - - decreased breath sounds bibasally, no wheezes or crackles. on 2L oxygen by nasal canula Cardiovascular: Regular Rhythm, Normal S1, Normal S2, No murmurs, regular rate Abdomen: Bowel Sounds Present, Soft, Non Tender, Non-Distended, No Hepato- splenomegaly, Obese Extremities: No clubbing, No cyanosis, Edema - bipedal 2+ pitting edema Skin: No rashes, No breakdown Musculoskeletal: No Tenderness to Palpation of Joints or Extremities; dialysis catheter in right chest Lymphatic: No Cervical, Supraclavicular, or Inguinal Adenopathy Neurological: Cranial nerves II-XII grossly intact, Neuro grossly intact, Motor Exam 5/5 strength throughout Psych/Mental Status: normal affect. Microbiology Past 72 Hours 04/18/19 08:06 Blood Culture (Wb) - Left Hand Blood Culture - Final No growth in 5 days. 04/18/19 08:00 Blood Culture (Wb) - Right Hand Blood Culture - Final No growth in 5 days. 04/18/19 21:15 Sputum, Expectorated/Coughed Gram Stain - Final 04/18/19 21:15 Sputum, Expectorated/Coughed Respiratory Culture - Final Haemophilus influenzae Mixed [facility] Laboratory Results 04/22/19 13:45: PT 26.9 H, INR 2.5 04/22/19 16:50: POC Glucose 288 H 04/22/19 21:41: POC Glucose 245 H 04/23/19 06:10: WBC 11.8 H, RBC 4.50 L, Hgb 12.1 L, Hct 40.3, MCV 89.6, MCH 26.9 L, MCHC 30.0 L, RDW Std Deviation 48.6 H, RDW Coeff of Janiya 14.8 H, Plt Count 192, MPV 9.5, Immature Gran % (Auto) 0.800, Neut % (Auto) 83.3 H, Lymph % (Auto) 5.1 L, [place] % (Auto) 10.5 H, Eos % (Auto) 0.2, Baso % (Auto) 0.1, Absolute Neuts (auto) 9.8 H, Absolute Lymphs (auto) 0.60 L, Nucleated RBC % 0, Differential Comment SCANNED 04/23/19 06:10: Sodium 133 L, Potassium 4.8, Chloride 94 L, Carbon Dioxide 32.0, Anion Gap 7, BUN 57 H, Creatinine 4.23 H, Estim Creat Clear Calc 17.74, Est GFR (MDRD) Af Amer 19 L, Est GFR (MDRD) Non-Af 15 L, BUN/Creatinine Ratio 13.5, Glucose 168 H, Calcium 8.7 04/23/19 06:31: POC Glucose 166 H 04/23/19 11:20: POC Glucose 219 H Current Medications Acetaminophen (Tylenol) 650 mg PO Q6H PRN PRN PRN Reason: Pain Score 1-3/Temp > 100.7 F Last Admin: 04/22/19 21:57 Dose: 650 mg Documented by: Al Hydroxide/Mg Hydroxide (Mylanta Ii) 30 ml PO Q6H PRN PRN PRN Reason: Gastric Burning Albuterol Sulfate (Ventolin Aerosols) 2.5 mg INHALATION Q2H PRN PRN PRN Reason: SOB/Wheezing Last Admin: 04/17/19 05:35 Dose: 2.5 mg Documented by: Albuterol/Ipratropium (Duoneb) 3 ml INHALATION Q4H.RT [facility] Last Admin: 04/22/19 23:00 Dose: Not Given Documented by: Amiodarone HCl (Cordarone) 200 mg PO BID [facility] Last Admin: 04/23/19 09:57 Dose: 200 mg Documented by: Atorvastatin Calcium (Lipitor) 20 mg PO QHS [facility] Last Admin: 04/22/19 21:50 Dose: 20 mg Documented by: Glucagon () 1 mg IM .X1 PRN PRN Reason: Hypoglycemia Guaifenesin (Robitussin) 20 ml PO Q4H PRN PRN PRN Reason: COUGH Dextrose (Dextrose 10%-Water) 250 mls @ 999 mls/hr IV .Q16M PRN; Protocol PRN Reason: HYPOGLYCEMIA Sodium Chloride () 1,000 mls @ 15 mls/hr IV .Q48H [facility] Last Admin: 04/22/19 11:56 Dose: Not Given Documented by: Insulin Glargine (Lantus (Bkc)) 40 units SC BID [facility] Last Admin: 04/23/19 09:58 Dose: 40 units Documented by: Insulin Human Lispro (Humalog Kwikpen (Bkc)) 0 unit SC ACHS [facility]; Protocol Last Admin: 04/23/19 11:23 Dose: 6 units Documented by: Levofloxacin (Levaquin Tablet) 250 mg PO Q48@0600 [facility] Last Admin: 04/23/19 05:19 Dose: 250 mg Documented by: Magnesium Hydroxide (Milk Of Magnesia) 30 ml PO DAILY PRN PRN PRN Reason: Constipation Last Admin: 04/23/19 10:03 Dose: 30 ml Documented by: Melatonin (Melatonin) 3 mg PO QHS PRN PRN PRN Reason: INSOMNIA Metoprolol Succinate (Toprol Xl (Beta Rakesh)) 100 mg PO DAILY [facility] Last Admin: 04/23/19 09:57 Dose: 100 mg Documented by: Nitroglycerin (Nitrostat) 0.4 mg SUBLINGUAL Q5M PRN PRN Reason: CARDIAC/CHEST PAIN Ondansetron HCl (Zofran) 4 mg IV Q8H PRN PRN PRN Reason: NAUSEA/VOMITING Oxycodone HCl (Oxyir) 5 mg PO Q4H PRN PRN PRN Reason: Pain Score 4-5/10 Last Admin: 04/19/19 07:54 Dose: 5 mg Documented by: Oxycodone HCl (Oxyir) 10 mg PO Q4H PRN PRN PRN Reason: Pain Score 6-10/10 Prednisone () 40 mg PO DAILY@0800 [facility] Stop: 04/24/19 08:01 Last Admin: 04/23/19 09:58 Dose: 40 mg Documented by: Senna (Senokot) 2 tablet PO DAILY PRN PRN Reason: Constipation Sodium Chloride () 10 - 40 ml IV UD PRN PRN Reason: SALINE FLUSH Last Admin: 04/21/19 12:30 Dose: 10 ml Documented by: Warfarin Sodium (Coumadin (Pbkc)) 2.5 mg PO TuWe@2200 [facility] Warfarin Sodium (Coumadin (Pbkc)) 5 mg PO SuMoThFrSa@2200 [facility] Last Admin: 04/22/19 21:49 Dose: 5 mg Documented by: STROKE Vital Signs/Narrative: Vital Signs Pulse Ox 04/23/19 12:05 92 Medical Necessity - Tobacco Use Smoking Status: Former smoker Assessment/Plan All Active Problems (Last Reviewed 04/16/19 @ 11:18 by Regulo Figueroa MD) CHF (congestive heart failure) (Acute) MOUNA (acute kidney injury) (Acute) Acute respiratory failure (Resolved) Pneumonia, community acquired (Resolved) Sepsis (Resolved) 1. acute hypoxic and hypercapnic respiratory failure * still requiring BIPAP overnight, but now on 2L of oxygen * 2D echo: EF of 60% with no regional wall motion abnormalities noted. Normal right ventricular size and systolic function. Left and right atria were not well visualized. * Duplex was negative for any PE. * Pulmonology on board. VQ scan showed very low probability for PE. * Continue breathing treatments. Titrate oxygen to maintain saturation above 90%. Use BiPAP PRN and at night * Of note, sputum culture gram-negative coccobacillus (Hemophilus influenzae), and gram positive rods. * patient currently on PO levaquin q48 hrs * 2. Community acquired pneumonia * Sputum Culture positive for H. influenzae and gram-positive rods. Patient on p.o. Levaquin for every 48 hours. * 3. MOUNA on CKD * Creatinine is 23 today. * Potassium is 4.7 today. * has had 3 sessions of dialysis, with removal of 12.4L of fluid in total. Last dialysis was 04/22/2019 * nephrology on board * * 4. Nonsustained Vtach * On amiodarone, cardizem and metoprolol. * BP has been running low, though HR has remained controlled. * cardiology on board * 5. Hypertension * Blood pressure still remains borderline low. * Lisinopril, spironolactone and torsemide on hold. On amiodarone and Cardizem and metoprolol on account of A. fib and nonsustained V. tach. * 6. Type 2 diabetes mellitus: Metformin on hold on account of MOUNA. Insulin sliding scale. Accu-Cheks AC at bedtime. 7. Hyperlipidemia: On statin. 8. History of severe pulmonary hypertension: to follow up with pulmonology and cardiology after discharge 9. A. fib: * Status post ablation x3. * On p.o. amiodarone 200 mg twice daily, Cardizem 120 mg twice daily and metoprolol. * On Coumadin. INR is therapeutic. 10. Chronic Heart failure with preserved ejection fraction: * 2D echo during this admission shows EF of 60%with no regional wall motion abnormalities * cardiology on board. * 11. Super morbid obesity: BMI is 52.5. This complicates management, expected recovery and prognosis. 12. LASHAWN: Currently on BiPAP. Pulmonology on board. 13. History of congenital heart disease: * Status post VSD repair at age 18 and PDA repair at age 3. * Stable. * DVT prophylaxis:INR is therapeutic. on coumadin. Code status: full code Disposition: * patient will likely need placement when medically stable. * is concerned because patient gets forgetful at home, and she cannot take care of him in his current state. Code Visit Inpatient E&M: 18700 [facility] Hosp L3
--- NOTE | 2019-04-23 14:26 | PCM.PN.CARD ---
Subjectve: The patient is awake. He has been up with OT/PT. He appears to be resting comfortably at this time with no new acute complaints. Objective: Vital Signs Temp Pulse Resp BP Pulse Ox 98.3 F 66 16 109/46 L 92 04/23/19 09:55 04/23/19 09:57 04/23/19 09:55 04/23/19 09:55 04/23/19 12:05 Oxygen Flow Rate (L/min) 2 Oxygen Delivery Method Nasal Cannula Weight: 351 lb 6.669 oz Body Mass Index (BMI) 53.4 Finger Stick Blood Glucose 479 Intake and Output for Last 24 Hours 04/21/19 04/22/19 04/23/19 23:59 23:59 23:59 Intake Total 375 / 375 1320 / 1320 200 / 200 Output Total 4600 / 4600 3000 / 3000 100 / 100 Balance -4225 / -4225 -1680 / -1680 100 / 100 General: Awake, Cooperative, No Acute Distress, Obese HEENT: Atraumatic, Normocephalic, PERRL, EOMI, Sclera Non Icteric Oral: Moist Mucosa Neck: Supple, Good ROM Chest Wall: Midline Sternotomy Incision Lungs: - - No obvious rales or rhonchi at this time Cardiovascular: Regular Rhythm, Normal S1, Normal S2 Abdomen: Bowel Sounds Present, Soft, Non Tender Psych/Mental Status: Appropriate 04/23/19 06:10: WBC 11.8 H, RBC 4.50 L, Hgb 12.1 L, Hct 40.3, MCV 89.6, MCH 26.9 L, MCHC 30.0 L, Plt Count 192, MPV 9.5, Immature Gran % (Auto) 0.800, Neut % (Auto) 83.3 H, Lymph % (Auto) 5.1 L, [place] % (Auto) 10.5 H, Eos % (Auto) 0.2, Baso % (Auto) 0.1, Absolute Neuts (auto) 9.8 H, Nucleated RBC % 0 04/23/19 06:10: Sodium 133 L, Potassium 4.8, Chloride 94 L, Carbon Dioxide 32.0, Anion Gap 7, BUN 57 H, Creatinine 4.23 H, Est GFR (MDRD) Af Amer 19 L, Est GFR (MDRD) Non-Af 15 L, BUN/Creatinine Ratio 13.5, Glucose 168 H, Calcium 8.7 Rhythm: Sinus rhythm Medical Necessity - Tobacco Use Smoking Status: Former smoker Assessment/Plan 1. Wide complex tachycardia thought secondary to SVT with aberrancy At the present time the patient appears to remaining in sinus rhythm. His oral diltiazem has been placed on hold. He has continued with his beta-jackson therapy and amiodarone therapy. Thus far his cardiac rhythm has remained stable. 2. Atrial fibrillation status post EPS/RFA He has undergone atrial fibrillation ablation in the past. He has had recurrent supraventricular tachydysrhythmias with aberrancy. He is continuing rate limiting therapy and antiarrhythmic therapy. He has been on anticoagulant therapy. 3. Chronic diastolic mediated CHF He will continue medical therapy. He is also continuing nephrology evaluation/dialysis therapy to assist in volume management. 4. PDA and VSD status post repair-remote This apparently occurred at approximately age 3. 5. Hyperlipidemia He will continue medical management. 6. Hypertension His blood pressure will be followed. His medications to be adjusted to minimize hypotension and hypertension. Thus at the present time his diltiazem will be placed on hold. He will continue other medications. 7. Diabetes mellitus He will continue under evaluation care per internal medicine. 8. Obstructive sleep apnea He will continue evaluation care by his other physicians. 9. Pulmonary hypertension He has been diagnosed with pulmonary hypertension based upon his previous diagnostic studies. He will continue medical management, pulmonary support, etc. as deemed appropriate. 10. Acute on chronic renal insufficiency He will continue evaluation care by nephrology with hemodialysis. Comment: The patient's case has been discussed and reviewed with the patient and his family members present. This note was generated using a voice recognition system and there may be incorrect words, spelling or punctuation that were not noted when reviewing the office note prior to saving.
[2019-04-23 14:27] LABS: International Normalized Ratio 2.2; Prothrombin Time (Protime)PT. 24.2 SECONDS (11.7-14.9)
[2019-04-23] MEDS: LORazepam 1 MG Tablet PO (15:23)
[2019-04-23 16:21] LABS: Bedside Glucose 261 mg/dL (70-110)
--- NOTE | 2019-04-23 19:10 | PN.RENAL_ITS ---
Patient Problems: Active and Suspected Problems (Last Reviewed 04/16/19 @ 11:18 by Regulo Figueroa MD) CHF (congestive heart failure) (Acute) MOUNA (acute kidney injury) (Acute) Subjective: Following for MOUNA, dialysis dependent. Pt is on BiPAP at night. [place] during the day without NIV. No current CP or nausea. Was able to walk with assistance today. - Physical Exam Vitals/I&O's: Vital Signs Temp Pulse Resp BP Pulse Ox 97.8 F 59 L 16 145/87 H 95 04/23/19 15:30 04/23/19 15:30 04/23/19 15:30 04/23/19 15:30 04/23/19 15:30 Oxygen Flow Rate (L/min) 2 Oxygen Delivery Method Nasal Cannula Weight: 159.4 kg Body Mass Index (BMI) 53.4 Finger Stick Blood Glucose 479 Intake and Output for Last 24 Hours 04/21/19 04/22/19 04/23/19 23:59 23:59 23:59 Intake Total 375 / 375 1320 / 1320 200 / 200 Output Total 4600 / 4600 3000 / 3000 100 / 100 Balance -4225 / -4225 -1680 / -1680 100 / 100 General: Alert, Oriented x3 HEENT: Atraumatic Oral: Moist Mucosa Neck: Supple Lungs: Clear to auscultation - anteriorly Cardiovascular: Normal S1, Normal S2, No murmurs Abdomen: Soft, Non Tender, Obese Extremities: Edema - 3+ LE Microbiology Past 72 Hours 04/18/19 08:06 Blood Culture (Wb) - Left Hand Blood Culture - Final No growth in 5 days. 04/18/19 08:00 Blood Culture (Wb) - Right Hand Blood Culture - Final No growth in 5 days. 04/18/19 21:15 Sputum, Expectorated/Coughed Gram Stain - Final 04/18/19 21:15 Sputum, Expectorated/Coughed Respiratory Culture - Final Haemophilus influenzae Mixed [facility] Laboratory Results 04/22/19 21:41: POC Glucose 245 H 04/23/19 06:10: WBC 11.8 H, RBC 4.50 L, Hgb 12.1 L, Hct 40.3, MCV 89.6, MCH 26.9 L, MCHC 30.0 L, RDW Std Deviation 48.6 H, RDW Coeff of Janiya 14.8 H, Plt Count 192, MPV 9.5, Immature Gran % (Auto) 0.800, Neut % (Auto) 83.3 H, Lymph % (Auto) 5.1 L, [place] % (Auto) 10.5 H, Eos % (Auto) 0.2, Baso % (Auto) 0.1, Absolute Neuts (auto) 9.8 H, Absolute Lymphs (auto) 0.60 L, Nucleated RBC % 0, Differential Co mment SCANNED 04/23/19 06:10: Sodium 133 L, Potassium 4.8, Chloride 94 L, Carbon Dioxide 32.0, Anion Gap 7, BUN 57 H, Creatinine 4.23 H, Estim Creat Clear Calc 17.74, Est GFR (MDRD) Af Amer 19 L, Est GFR (MDRD) Non-Af 15 L, BUN/Creatinine Ratio 13.5, Glucose 168 H, Calcium 8.7 04/23/19 06:10: PT 24.2 H, INR 2.2 04/23/19 06:31: POC Glucose 166 H 04/23/19 11:20: POC Glucose 219 H 04/23/19 16:09: POC Glucose 261 H Current Medications Acetaminophen (Tylenol) 650 mg PO Q6H PRN PRN PRN Reason: Pain Score 1-3/Temp > 100.7 F Last Admin: 04/22/19 21:57 Dose: 650 mg Documented by: Al Hydroxide/Mg Hydroxide (Mylanta Ii) 30 ml PO Q6H PRN PRN PRN Reason: Gastric Burning Albuterol Sulfate (Ventolin Aerosols) 2.5 mg INHALATION Q2H PRN PRN PRN Reason: SOB/Wheezing Last Admin: 04/17/19 05:35 Dose: 2.5 mg Documented by: Albuterol/Ipratropium (Duoneb) 3 ml INHALATION Q4H.RT [facility] Last Admin: 04/23/19 15:00 Dose: Not Given Documented by: Amiodarone HCl (Cordarone) 200 mg PO BID [facility] Last Admin: 04/23/19 09:57 Dose: 200 mg Documented by: Atorvastatin Calcium (Lipitor) 20 mg PO QHS [facility] Last Admin: 04/22/19 21:50 Dose: 20 mg Documented by: Glucagon () 1 mg IM .X1 PRN PRN Reason: Hypoglycemia Guaifenesin (Robitussin) 20 ml PO Q4H PRN PRN PRN Reason: COUGH Dextrose (Dextrose 10%-Water) 250 mls @ 999 mls/hr IV .Q16M PRN; Protocol PRN Reason: HYPOGLYCEMIA Sodium Chloride () 1,000 mls @ 15 mls/hr IV .Q48H [facility] Last Admin: 04/22/19 11:56 Dose: Not Given Documented by: Insulin Glargine (Lantus ([facility])) 40 units SC BID [facility] Last Admin: 04/23/19 09:58 Dose: 40 units Documented by: Insulin Human Lispro (Humalog Kwikpen ([facility])) 0 unit SC ACHS [facility]; Protocol Last Admin: 04/23/19 16:12 Dose: 9 units Documented by: Levofloxacin (Levaquin Tablet) 250 mg PO Q48@0600 [facility] Last Admin: 04/23/19 05:19 Dose: 250 mg Documented by: Magnesium Hydroxide (Milk Of Magnesia) 30 ml PO DAILY PRN PRN PRN Reason: Constipation Last Admin: 04/23/19 10:03 Dose: 30 ml Documented by: Melatonin (Melatonin) 3 mg PO QHS PRN PRN PRN Reason: INSOMNIA Metoprolol Succinate (Toprol Xl (Beta Rakesh)) 100 mg PO DAILY [facility] Last Admin: 04/23/19 09:57 Dose: 100 mg Documented by: Nitroglycerin (Nitrostat) 0.4 mg SUBLINGUAL Q5M PRN PRN Reason: CARDIAC/CHEST PAIN Ondansetron HCl (Zofran) 4 mg IV Q8H PRN PRN PRN Reason: NAUSEA/VOMITING Oxycodone HCl (Oxyir) 5 mg PO Q4H PRN PRN PRN Reason: Pain Score 4-5/10 Last Admin: 04/19/19 07:54 Dose: 5 mg Documented by: Oxycodone HCl (Oxyir) 10 mg PO Q4H PRN PRN PRN Reason: Pain Score 6-10/10 Prednisone () 40 mg PO DAILY@0800 [facility] Stop: 04/24/19 08:01 Last Admin: 04/23/19 09:58 Dose: 40 mg Documented by: Senna (Senokot) 2 tablet PO DAILY PRN PRN Reason: Constipation Sodium Chloride () 10 - 40 ml IV UD PRN PRN Reason: SALINE FLUSH Last Admin: 04/21/19 12:30 Dose: 10 ml Documented by: Warfarin Sodium (Coumadin (Pbkc)) 2.5 mg PO TuWe@2199 [facility] Warfarin Sodium (Coumadin (Pbkc)) 5 mg PO SuMoThFrSa@0 [facility] Last Admin: 04/22/19 21:49 Dose: 5 mg Documented by: Medical Necessity - Tobacco Use Smoking Status: Former smoker Assessment/Plan All Active Problems (Last Reviewed 04/16/19 @ 11:18 by Regulo Figueroa MD) CHF (congestive heart failure) (Acute) MOUNA (acute kidney injury) (Acute) Acute respiratory failure (Resolved) Pneumonia, community acquired (Resolved) Sepsis (Resolved) 1. Acute kidney injury on chronic kidney disease stage III. Baseline creatinine is around 1.3. Renal ultrasound without any hydronephrosis, echogenic kidneys. Serologies reviewed. Double-stranded DNA is elevated. C3 is normal. Clinical significance of this is unclear at this point. If his renal function does not recover in the future, will consider kidney biopsy. Suspect pt has diabetic nephropathy. Was able to UF 3 L yesterday (04/22/19). Held dialysis today. Reassess tomorrow but anticipates that he will still require dialysis in the near term. Awaiting outpatient dialysis unit placement. 2. CHF due to diastolic dysfunction and MOUNA. O>I with dialysis. BP is OK on metoprolol and with UF on dialysis. 3. Atrial fibrillation. HR is controlled. he is on warfarin. Cardiology following. 4. Acute hypercapnic/hypoxic respiratory failure. O>I with HD. On BiPAP at night-management as per pulmonary.
[2019-04-23] MEDS: Atorvastatin Calcium 20 MG Tablet PO (21:43)
[2019-04-23] MEDS: 0.9% Saline Lock 10 ML Syringe IV (21:43)
[2019-04-23 22:30] LABS: Bedside Glucose 286 mg/dL (70-110)
[2019-04-24] VITALS (14 sets, daily range): BP systolic 90–109; BP diastolic 31–86; PULSE 56–90; RESP 16–20; TEMP 36.4–37; O2SAT 95–99
[2019-04-24] MEDS: Insulin Lispro 100 UNIT/ML INSULN.PEN SC ×3 (06:33→22:19)
[2019-04-24 06:41] LABS: Bedside Glucose 169 mg/dL (70-110)
[2019-04-24 06:59] LABS: Absolute Lymphocyte Count 0.61 X10^3/uL (0.83-4.51); Absolute Neutrophil Count 9.1 X10^3/uL (2.0-7.7); Basophil# 0.01 X10^3/uL; Basophil% 0.1 % (0-1); Eosinophil# 0.06 X10^3/uL; Eosinophils% 0.6 % (0-5); Hemoglobin 11.7 g/dL (13.0-16.5); Lymphocyte # 0.61 X10^3/ul (4.0); Lymphocyte % 5.6 % (19-41); Mean Corp Hgb Conc 30.8 g/dL (32-36); Mean Corpuscular Volume 87.8 fL (80-94); Mean Platelet Vol. 9.9 fl (6.2-12.0); Monocyte# 0.97 X10^3/uL; Monocyte% 8.9 % (0-10); NRBC Flagged by Analyzer 0 % (0-5); Neutrophil # 9.14 X10^3/uL (2.7-7.7); Neutrophil % 84.1 % (47-70); Platelet Count 178 K/mm3 (150-450); RBC Distribution Width CV 14.8 % (11.6-14.6); Red Blood Count 4.33 M/mm3 (4.6-6.2); White Blood Count 10.9 K/mm3 (4.4-11.0)
[2019-04-24 07:14] LABS: Anion Gap 8 (5-15); BUN 89 mg/dL (7-18); BUN/Creat Ratio 17.6 RATIO (10-20); Calcium,Total 8.6 mg/dL (8.5-10.1); Chloride 94 mmol/L (98-107); Creatinine, Serum 5.07 mg/dL (0.70-1.30); EST Glomerular Filtration Rate 12 mL/min (>60); Est Glom Filt Rate - Afr Amer 15 mL/min (>60); Glucose 181 mg/dL (74-106); Sodium Level 131 mmol/L (136-145)
--- NOTE | 2019-04-24 07:40 | PN.CARD_ITS ---
Subjectve: Patient seen and evaluated. Appears to be stable. Events over the weekend noted with low blood pressure. Objective: Vital Signs Temp Pulse Resp BP Pulse Ox 97.5 F L 58 L 16 109/51 L 96 04/24/19 03:15 04/24/19 06:54 04/24/19 03:15 04/24/19 03:15 04/24/19 03:15 Oxygen Flow Rate (L/min) 2 Oxygen Delivery Method Nasal Cannula Weight: 345 lb 10.957 oz Body Mass Index (BMI) 53.4 Finger Stick Blood Glucose 479 Intake and Output for Last 24 Hours 04/22/19 04/23/19 04/24/19 23:59 23:59 23:59 Intake Total 1320 / 1320 760 / 760 140 / 140 Output Total 3000 / 3000 400 / 400 200 / 200 Balance -1680 / -1680 360 / 360 -60 / -60 General: Awake, Alert, Oriented x 3 HEENT: PERRL, EOMI, Sclera Non Icteric Neck: Supple, Good ROM, No Lymph Node Enlargement Lungs: Clear to auscultation Cardiovascular: Regular Rhythm, Normal S1, Normal S2, No Murmurs, No Rubs, No Gallops Vascular: No Carotid Bruits, Normal Femoral Pulses, Normal Radial Pulses, Normal Dorsalis Pedal Pulse, Normal Posterior Tibial Pulses Abdomen: Bowel Sounds Present, Soft, Non Tender, No HSM, No Organomegaly Extremities: No Cyanosis, No Clubbing, No edema Musculoskeletal: No Erythema Skin: No Rashes Lymphatic: No Lymph Node Enlargement Neurological: No Focal Motor or Sensory Deficit Psych/Mental Status: Appropriate 04/23/19 06:10: PT 24.2 H, INR 2.2 04/24/19 06:35: WBC 10.9, RBC 4.33 L, Hgb 11.7 L, Hct 38.0 L, MCV 87.8, MCH 27.0, MCHC 30.8 L, Plt Count 178, MPV 9.9, Immature Gran % (Auto) 0.700, Neut % (Auto) 84.1 H, Lymph % (Auto) 5.6 L, [place] % (Auto) 8.9, Eos % (Auto) 0.6, Baso % (Auto) 0.1, Absolute Neuts (auto) 9.1 H, Nucleated RBC % 0 04/24/19 06:35: Sodium 131 L, Potassium 5.0, Chloride 94 L, Carbon Dioxide 29.0, Anion Gap 8, BUN 89 H, Creatinine 5.07 H, Est GFR (MDRD) Af Amer 15 L, Est GFR (MDRD) Non-Af 12 L, BUN/Creatinine Ratio 17.6, Glucose 181 H, Calcium 8.6 Rhythm: EKG: ECHO: Stress Test: Cardiac Cath: PCI: CT Surgery: Holter monitor: EPS: PPM: CXR: Chest CT Scan: Medical Necessity - Tobacco Use Smoking Status: Former smoker Assessment/Plan 1. Shortness of breath * The etiology of the above is unlikely to be primary cardiac in etiology. His natruretic peptide level was normal, his echocardiogram demonstrated preserved ejection fraction. He may have a problem with obesity hypoventilation syndrome. With consequence hypercapnia. * Will hold off on further diuresis * Patient currently is undergoing dialysis. 2. Supraventricular tachycardia and atrial fibrillation * Patient is anticoagulated for the above * He is also on a beta-jackson. He is status post failed ablation. I would recommend that we start him on amiodarone short-term to see whether this would be able to control his heart rate. Depending on the findings further recommendations will be made. * He did have an episode of a wide complex tachycardia which was likely a supraventricular tachycardia with aberrancy. He briefly responded to adenosine but responded to high-dose adenosine combined with intravenous amiodarone. * He was given oral amiodarone to which he is tolerating quite well. * The diltiazem has been on hold now due to relatively low blood pressure. He appears to be maintaining sinus rhythm at this time. 3. Hypertension * Good control on the current medical therapy. No major changes will be made at this time. * * From the cardiac standpoint he appears to be stable and I would not make any major changes. * * * Thank you for allowing me to participate in the care of your patient. Please don't hesitate to call if any issues arise
--- NOTE | 2019-04-24 10:42 | PN_ITS ---
Patient Problems: Active and Suspected Problems (Last Reviewed 04/16/19 @ 11:18 by Regulo Figueroa MD) CHF (congestive heart failure) (Acute) MOUNA (acute kidney injury) (Acute) Subjective: The patient was seen and examined at the bedside this morning. Events from the last 24 hours have been reviewed. The patient is currently afebrile, hemodynamically stable and maintaining appropriate oxygen saturations on 2 L/min via nasal cannula. Currently on dialysis. Objective: The patient's most recent lab work, culture data and imaging studies have all been personally reviewed. Sputum culture was positive for Haemophilus influenza. - Physical Exam Vitals/I&O's: Vital Signs Temp Pulse Resp BP Pulse Ox 97.7 F L 60 18 96/31 L 96 04/24/19 09:15 04/24/19 09:15 04/24/19 09:15 04/24/19 09:15 04/24/19 09:15 Oxygen Flow Rate (L/min) 2 Oxygen Delivery Method Nasal Cannula Weight: 345 lb 10.957 oz Body Mass Index (BMI) 53.4 Finger Stick Blood Glucose 479 Intake and Output for Last 24 Hours 04/22/19 04/23/19 04/24/19 23:59 23:59 23:59 Intake Total 1320 / 1320 760 / 760 140 / 140 Output Total 3000 / 3000 400 / 400 200 / 200 Balance -1680 / -1680 360 / 360 -60 / -60 General: Alert, Cooperative, - - Morbidly obese HEENT: Atraumatic, PERRLA, Normocephalic Oral: No Gingival or Mucosal Lesions/ Ulcerations Neck: Supple, No Nodes, Trachea Midline Lungs: Diminished Cardiovascular: Normal S1, Normal S2, No murmurs, Irregular Rate Abdomen: Bowel Sounds Present, Soft, Non Tender, Obese Extremities: No clubbing, No cyanosis, Edema Skin: No breakdown Musculoskeletal: No Tenderness to Palpation of Joints or Extremities Lymphatic: No Cervical, Supraclavicular, or Inguinal Adenopathy Neurological: Neuro grossly intact Psych/Mental Status: Flat Affect Labs (Last 48 Hours) 04/22/19 04/22/19 04/22/19 11:18 13:45 16:50 WBC RBC Hgb Hct MCV MCH MCHC RDW Std Deviation RDW Coeff of Janiya Plt Count MPV Immature Gran % (Auto) Neut % (Auto) Lymph % (Auto) Duchesne % (Auto) Eos % (Auto) Baso % (Auto) Absolute Neuts (auto) Absolute Lymphs (auto) Nucleated RBC % Differential Comment PT 26.9 H INR 2.5 Sodium Potassium Chloride Carbon Dioxide Anion Gap BUN Creatinine Estim Creat Clear Calc Est GFR (MDRD) Af Amer Est GFR (MDRD) Non-Af BUN/Creatinine Ratio Glucose Calcium POC Glucose 245 H 288 H 04/22/19 04/23/19 04/23/19 21:41 06:10 06:10 WBC 11.8 H RBC 4.50 L Hgb 12.1 L Hct 40.3 MCV 89.6 MCH 26.9 L MCHC 30.0 L RDW Std Deviation 48.6 H RDW Coeff of Janiya 14.8 H Plt Count 192 MPV 9.5 Immature Gran % (Auto) 0.800 Neut % (Auto) 83.3 H Lymph % (Auto) 5.1 L Duchesne % (Auto) 10.5 H Eos % (Auto) 0.2 Baso % (Auto) 0.1 Absolute Neuts (auto) 9.8 H Absolute Lymphs (auto) 0.60 L Nucleated RBC % 0 Differential Comment SCANNED PT INR Sodium 133 L Potassium 4.8 Chloride 94 L Carbon Dioxide 32.0 Anion Gap 7 BUN 57 H Creatinine 4.23 H Estim Creat Clear Calc 17.74 Est GFR (MDRD) Af Amer 19 L Est GFR (MDRD) Non-Af 15 L BUN/Creatinine Ratio 13.5 Glucose 168 H Calcium 8.7 POC Glucose 245 H 04/23/19 04/23/19 04/23/19 06:10 06:31 11:20 WBC RBC Hgb Hct MCV MCH MCHC RDW Std Deviation RDW Coeff of Janiya Plt Count MPV Immature Gran % (Auto) Neut % (Auto) Lymph % (Auto) Duc[place]ne % (Auto) Eos % (Auto) Baso % (Auto) Absolute Neuts (auto) Absolute Lymphs (auto) Nucleated RBC % Differential Comment PT 24.2 H INR 2.2 Sodium Potassium Chloride Carbon Dioxide Anion Gap BUN Creatinine Estim Creat Clear Calc Est GFR (MDRD) Af Amer Est GFR (MDRD) Non-Af BUN/Creatinine Ratio Glucose Calcium POC Glucose 166 H 219 H 04/23/19 04/23/19 04/24/19 16:09 21:34 06:32 WBC RBC Hgb Hct MCV MCH MCHC RDW Std Deviation RDW Coeff of Janiya Plt Count MPV Immature Gran % (Auto) Neut % (Auto) Lymph % (Auto) Duc[place]ne % (Auto) Eos % (Auto) Baso % (Auto) Absolute Neuts (auto) Absolute Lymphs (auto) Nucleated RBC % Differential Comment PT INR Sodium Potassium Chloride Carbon Dioxide Anion Gap BUN Creatinine Estim Creat Clear Calc Est GFR (MDRD) Af Amer Est GFR (MDRD) Non-Af BUN/Creatinine Ratio Glucose Calcium POC Glucose 261 H 286 H 169 H 04/24/19 04/24/19 06:35 06:35 WBC 10.9 RBC 4.33 L Hgb 11.7 L Hct 38.0 L MCV 87.8 MCH 27.0 MCHC 30.8 L RDW Std Deviation 48.0 H RDW Coeff of Janiya 14.8 H Plt Count 178 MPV 9.9 Immature Gran % (Auto) 0.700 Neut % (Auto) 84.1 H Lymph % (Auto) 5.6 L Duchesne % (Auto) 8.9 Eos % (Auto) 0.6 Baso % (Auto) 0.1 Absolute Neuts (auto) 9.1 H Absolute Lymphs (auto) 0.61 L Nucleated RBC % 0 Differential Comment PT INR Sodium 131 L Potassium 5.0 Chloride 94 L Carbon Dioxide 29.0 Anion Gap 8 BUN 89 H Creatinine 5.07 H Estim Creat Clear Calc 14.80 Est GFR (MDRD) Af Amer 15 L Est GFR (MDRD) Non-Af 12 L BUN/Creatinine Ratio 17.6 Glucose 181 H Calcium 8.6 POC Glucose Microbiology 04/18/19 08:06 Blood Culture (Wb) - Left Hand Blood Culture - Final No growth in 5 days. 04/18/19 08:00 Blood Culture (Wb) - Right Hand Blood Culture - Final No growth in 5 days. Clinical Impression(s) from Imaging Studies Chest X-Ray 04/16/19 09:06 IMPRESSION: Congestion with features described above. Electronically Signed: Adonis Sanchez, at 9:40 EST Tel , Service support , Chest X-Ray 04/17/19 05:40 IMPRESSION: Cardiomegaly with CHF and pulmonary edema. Small right pleural effusion. No definite change from previous study. Electronically Signed: Fer Dotson MD at 7:01 EST , Service support , Chest CT 04/17/19 07:43 IMPRESSION: Patchy bilateral pulmonary infiltrates. Follow-up is recommended. Electronically Signed: Fortunato Nolan, at 14:26 EST , Service support , Lung Scan-VQ NM 04/17/19 07:51 IMPRESSION: 1. VERY LOW PROBABILITY FOR PULMONARY EMBOLUS (<10%) 99m Tc DTPA aerosol ventilation / 99m Tc MAA pulmonary perfusion imaging examination, according to PIOPED II interpretive criteria with regard given to the presence of > 2 ventilation-perfusion matches without corresponding radiographic changes. (Sotsman et al, Radiology 246: 941, 2008 Sotsman et al, J Nucl Med 49: 1741, 2008). 2. Central clumping of the aerosol may be secondary to obstructive airway mechanics and or clinical tachypnea. Electronically Signed: Neftaly Marin DO at 14:07 EST Tel , Service support , Renal Ultrasound 04/17/19 12:16 IMPRESSION: Findings consistent with nonspecific renal parenchymal disease. No evidence for renal obstruction. Left renal cyst measuring 2.5 x 2.4 x 2.5 cm. Electronically Signed: Adonis Seals MD at 22:52 EST , Service support , Chest X-Ray 04/19/19 17:55 IMPRESSION: 1. Right jugular hemodialysis catheter without pneumothorax. Right decrease in vascular congestion when compared to prior study. Electronically Signed: Robert Bradley DO at 19:22 EST Tel [phone], Service support , Chest X-Ray 04/22/19 06:10 IMPRESSION: Stable bilateral edema or infiltrates. Electronically Signed: Arnold Murrell MD at 8:26 EST , Service support , Current Medications Acetaminophen (Tylenol) 650 mg PO Q6H PRN PRN PRN Reason: Pain Score 1-3/Temp > 100.7 F Last Admin: 04/22/19 21:57 Dose: 650 mg Documented by: Al Hydroxide/Mg Hydroxide (Mylanta Ii) 30 ml PO Q6H PRN PRN PRN Reason: Gastric Burning Albuterol Sulfate (Ventolin Aerosols) 2.5 mg INHALATION Q2H PRN PRN PRN Reason: SOB/Wheezing Last Admin: 04/17/19 05:35 Dose: 2.5 mg Documented by: Albuterol/Ipratropium (Duoneb) 3 ml INHALATION Q4H.RT [facility] Last Admin: 04/24/19 07:00 Dose: Not Given Documented by: Amiodarone HCl (Cordarone) 200 mg PO BID [facility] Last Admin: 04/23/19 21:43 Dose: 200 mg Documented by: Atorvastatin Calcium (Lipitor) 20 mg PO QHS [facility] Last Admin: 04/23/19 21:43 Dose: 20 mg Documented by: Glucagon () 1 mg IM .X1 PRN PRN Reason: Hypoglycemia Guaifenesin (Robitussin) 20 ml PO Q4H PRN PRN PRN Reason: COUGH Dextrose (Dextrose 10%-Water) 250 mls @ 999 mls/hr IV .Q16M PRN; Protocol PRN Reason: HYPOGLYCEMIA Sodium Chloride () 1,000 mls @ 15 mls/hr IV .Q48H [facility] Last Admin: 04/23/19 21:27 Dose: Not Given Documented by: Insulin Glargine (Lantus (Bkc)) 40 units SC BID [facility] Last Admin: 04/23/19 21:50 Dose: 40 units Documented by: Insulin Human Lispro (Humalog Kwikpen (Bkc)) 0 unit SC ACHS [facility]; Protocol Last Admin: 04/24/19 06:33 Dose: 3 units Documented by: Levofloxacin (Levaquin Tablet) 250 mg PO Q48@0600 [facility] Last Admin: 04/23/19 05:19 Dose: 250 mg Documented by: Magnesium Hydroxide (Milk Of Magnesia) 30 ml PO DAILY PRN PRN PRN Reason: Constipation Last Admin: 04/23/19 10:03 Dose: 30 ml Documented by: Melatonin (Melatonin) 3 mg PO QHS PRN PRN PRN Reason: INSOMNIA Metoprolol Succinate (Toprol Xl (Beta Rakesh)) 100 mg PO DAILY [facility] Last Admin: 04/23/19 09:57 Dose: 100 mg Documented by: Nitroglycerin (Nitrostat) 0.4 mg SUBLINGUAL Q5M PRN PRN Reason: CARDIAC/CHEST PAIN Ondansetron HCl (Zofran) 4 mg IV Q8H PRN PRN PRN Reason: NAUSEA/VOMITING Oxycodone HCl (Oxyir) 5 mg PO Q4H PRN PRN PRN Reason: Pain Score 4-5/10 Last Admin: 04/19/19 07:54 Dose: 5 mg Documented by: Oxycodone HCl (Oxyir) 10 mg PO Q4H PRN PRN PRN Reason: Pain Score 6-10/10 Senna (Senokot) 2 tablet PO DAILY PRN PRN Reason: Constipation Sodium Chloride () 10 - 40 ml IV UD PRN PRN Reason: SALINE FLUSH Last Admin: 04/23/19 21:43 Dose: 10 ml Documented by: Warfarin Sodium (Coumadin (Pbkc)) 2.5 mg PO TuWe@2200 [facility] Warfarin Sodium (Coumadin (Pbkc)) 5 mg PO SuMoThFrSa@2200 [facility] Last Admin: 04/23/19 21:43 Dose: 5 mg Documented by: Medical Necessity - Tobacco Use Smoking Status: Former smoker Assessment/Plan All Active Problems (Last Reviewed 04/16/19 @ 11:18 by Regulo Figueroa MD) CHF (congestive heart failure) (Acute) MOUNA (acute kidney injury) (Acute) Acute respiratory failure (Resolved) Pneumonia, community acquired (Resolved) Sepsis (Resolved) RECOMMENDATIONS: 1. Continue further attempts at volume optimization with hemodialysis. 2. Continue BiPAP therapy with naps and nightly. 3. Continue antimicrobials to complete treatment course. 4. Obtain arterial blood gas with any alteration in mentation. IMPRESSIONS: 1. Acute on chronic hypercarbic respiratory failure Unclear etiology at this time. Patient does have clinical signs and symptoms of increased volume status with recent travel. Work-up for pulmonary embolism was negative. Recommend continuing further attempts at volume optimization with hemodialysis per nephrology recommendations. Continue antimicrobials to complete treatment course, given Haemophilus influenza noted on culture. Continue BiPAP therapy with naps and nightly. Avoid sedating medications. Repeat arterial blood gas with alteration in mentation. 2. Acute on chronic kidney disease stage III/hyperkalemia Etiology unclear, but may be secondary to underlying diabetes. Nephrology is currently following. Continue hemodialysis as tolerated. 3. Chronic A. fib/chronic diastolic congestive heart failure/history of VSD repair/pulmonary hypertension Patient anticoagulated and doing well. No signs or symptoms of bleeding at this time. Continue medical management per cardiology recommendations. 4. Hypertension/type 2 diabetes mellitus/hyperlipidemia/morbid obesity/noncompliant LASHAWN Complicates care, management, recovery and prognosis. Continue baseline outpatient medications and BiPAP therapy as ordered. This note was generated with [employer] dictation software. It may contain incorrect words, spelling, and punctuation that were not noted in checking the note before signing. Code Visit Inpatient E&M: 75472 Subs Hosp L2
[2019-04-24] MEDS: Ipratropium/Albuterol Sulfate 3 ML AMPUL.NEB INHALATION ×2 (11:00→14:59)
[2019-04-24] MEDS: Midodrine HCl 5 MG Tablet PO (11:50)
[2019-04-24 12:06] LABS: Bedside Glucose 229 mg/dL (70-110)
--- NOTE | 2019-04-24 12:51 | PCM.PN.HOSP ---
<David Nolasco - Last Filed: 04/24/19 12:51> Patient Problems: Active and Suspected Problems (Last Reviewed 04/16/19 @ 11:18 by Regulo Figueroa MD) CHF (congestive heart failure) (Acute) MOUNA (acute kidney injury) (Acute) Vitals/I&O's: Vital Signs Temp Pulse Resp BP Pulse Ox 97.7 F L 90 18 96/31 L 96 04/24/19 09:15 04/24/19 11:02 04/24/19 09:15 04/24/19 09:15 04/24/19 09:15 Oxygen Flow Rate (L/min) 2 Oxygen Delivery Method Nasal Cannula Weight: 345 lb 10.957 oz Body Mass Index (BMI) 53.4 Finger Stick Blood Glucose 479 Intake and Output for Last 24 Hours 04/22/19 04/23/19 04/24/19 23:59 23:59 23:59 Intake Total 1320 / 1320 760 / 760 480 / 480 Output Total 3000 / 3000 400 / 400 200 / 200 Balance -1680 / -1680 360 / 360 280 / 280 General: Alert, Oriented x3, Cooperative, Lethargic - rousable, somewhat lethargic HEENT: Atraumatic, PERRLA, EOMI, Normocephalic Neck: Supple, No JVD, Negative Carotid Bruits Lungs: Clear to auscultation, Diminished Cardiovascular: Regular rate, No murmurs Abdomen: Bowel Sounds Present, Soft, Non Tender, Obese Extremities: Capillary Refill Less than 3 Seconds, Edema - 2-3+ pitting edema BLE Skin: No rashes, No breakdown Musculoskeletal: No Tenderness to Palpation of Joints or Extremities Neurological: Cranial nerves II-XII grossly intact Psych/Mental Status: Normal Affect, Appropriate, Alert and oriented to time, place, person, mood and affect Microbiology Past 72 Hours 04/18/19 08:06 Blood Culture (Wb) - Left Hand Blood Culture - Final No growth in 5 days. 04/18/19 08:00 Blood Culture (Wb) - Right Hand Blood Culture - Final No growth in 5 days. 04/18/19 21:15 Sputum, Expectorated/Coughed Gram Stain - Final 04/18/19 21:15 Sputum, Expectorated/Coughed Respiratory Culture - Final Haemophilus influenzae Mixed Malini Laboratory Results 04/23/19 06:10: PT 24.2 H, INR 2.2 04/23/19 16:09: POC Glucose 261 H 04/23/19 21:34: POC Glucose 286 H 04/24/19 06:32: POC Glucose 169 H 04/24/19 06:35: WBC 10.9, RBC 4.33 L, Hgb 11.7 L, Hct 38.0 L, MCV 87.8, MCH 27.0, MCHC 30.8 L, RDW Std Deviation 48.0 H, RDW Coeff of Janiya 14.8 H, Plt Count 178, MPV 9.9, Immature Gran % (Auto) 0.700, Neut % (Auto) 84.1 H, Lymph % (Auto) 5.6 L, [place] % (Auto) 8.9, Eos % (Auto) 0.6, Baso % (Auto) 0.1, Absolute Neuts (auto) 9.1 H, Absolute Lymphs (auto) 0.61 L, Nucleated RBC % 0 04/24/19 06:35: Sodium 131 L, Potassium 5.0, Chloride 94 L, Carbon Dioxide 29.0, Anion Gap 8, BUN 89 H, Creatinine 5.07 H, Estim Creat Clear Calc 14.80, Est GFR (MDRD) Af Amer 15 L, Est GFR (MDRD) Non-Af 12 L, BUN/Creatinine Ratio 17.6, Glucose 181 H, Calcium 8.6 04/24/19 11:54: POC Glucose 229 H Current Medications Acetaminophen (Tylenol) 650 mg PO Q6H PRN PRN PRN Reason: Pain Score 1-3/Temp > 100.7 F Last Admin: 04/22/19 21:57 Dose: 650 mg Documented by: Al Hydroxide/Mg Hydroxide (Mylanta Ii) 30 ml PO Q6H PRN PRN PRN Reason: Gastric Burning Albuterol Sulfate (Ventolin Aerosols) 2.5 mg INHALATION Q2H PRN PRN PRN Reason: SOB/Wheezing Last Admin: 04/17/19 05:35 Dose: 2.5 mg Documented by: Albuterol/Ipratropium (Duoneb) 3 ml INHALATION Q4H.RT DANIEL Last Admin: 04/24/19 11:00 Dose: 3 ml Documented by: Amiodarone HCl (Cordarone) 200 mg PO BID DANIEL Last Admin: 04/23/19 21:43 Dose: 200 mg Documented by: Atorvastatin Calcium (Lipitor) 20 mg PO QHS [facility] Last Admin: 04/23/19 21:43 Dose: 20 mg Documented by: Glucagon () 1 mg IM .X1 PRN PRN Reason: Hypoglycemia Guaifenesin (Robitussin) 20 ml PO Q4H PRN PRN PRN Reason: COUGH Dextrose (Dextrose 10%-Water) 250 mls @ 999 mls/hr IV .Q16M PRN; Protocol PRN Reason: HYPOGLYCEMIA Sodium Chloride () 1,000 mls @ 15 mls/hr IV .Q48H [facility] Last Admin: 04/23/19 21:27 Dose: Not Given Documented by: Insulin Glargine (Lantus ([facility])) 40 units SC BID [facility] Last Admin: 04/23/19 21:50 Dose: 40 units Documented by: Insulin Human Lispro (Humalog Kwikpen ([facility])) 0 unit SC ACHS [facility]; Protocol Last Admin: 04/24/19 11:56 Dose: 6 units Documented by: Levofloxacin (Levaquin Tablet) 250 mg PO Q48@0600 [facility] Last Admin: 04/23/19 05:19 Dose: 250 mg Documented by: Magnesium Hydroxide (Milk Of Magnesia) 30 ml PO DAILY PRN PRN PRN Reason: Constipation Last Admin: 04/23/19 10:03 Dose: 30 ml Documented by: Melatonin (Melatonin) 3 mg PO QHS PRN PRN PRN Reason: INSOMNIA Metoprolol Succinate (Toprol Xl (Beta Rakesh)) 100 mg PO DAILY [facility] Last Admin: 04/23/19 09:57 Dose: 100 mg Documented by: Nitroglycerin (Nitrostat) 0.4 mg SUBLINGUAL Q5M PRN PRN Reason: CARDIAC/CHEST PAIN Ondansetron HCl (Zofran) 4 mg IV Q8H PRN PRN PRN Reason: NAUSEA/VOMITING Oxycodone HCl (Oxyir) 5 mg PO Q4H PRN PRN PRN Reason: Pain Score 4-5/10 Last Admin: 04/19/19 07:54 Dose: 5 mg Documented by: Oxycodone HCl (Oxyir) 10 mg PO Q4H PRN PRN PRN Reason: Pain Score 6-10/10 Senna (Senokot) 2 tablet PO DAILY PRN PRN Reason: Constipation Sodium Chloride () 10 - 40 ml IV UD PRN PRN Reason: SALINE FLUSH Last Admin: 04/23/19 21:43 Dose: 10 ml Documented by: Warfarin Sodium (Coumadin (Pbkc)) 2.5 mg PO TuWe@2200 DANIEL Warfarin Sodium (Coumadin (Pbkc)) 5 mg PO SuMoThFrSa@2200 DANIEL Last Admin: 04/23/19 21:43 Dose: 5 mg Documented by: STROKE Vital Signs/Narrative: Vital Signs Temp Pulse Resp BP Pulse Ox 04/24/19 11:02 90 04/24/19 09:15 97.7 F L 60 18 96/31 L 96 Medical Necessity - Tobacco Use Smoking Status: Former smoker Assessment/Plan All Active Problems (Last Reviewed 04/16/19 @ 11:18 by Regulo Figueroa MD) CHF (congestive heart failure) (Acute) MOUNA (acute kidney injury) (Acute) Acute respiratory failure (Resolved) Pneumonia, community acquired (Resolved) Sepsis (Resolved) 1. Acute hypoxic/hypercapnic resp failure 2/2 CAP - contineu O2 and bipap as needed / qhs. Pulm following. VQ neg for PE. Continue levaquin, aerosols. + H. flu. 2. MOUNA on CKD - dialysis today. Likely needs dialysis for the foreseeable future. Neph following. 3. Nonsustained vtach - amio, cardizem, metoprolol. Cardio following. 4. hx htn, however : Hypotension with dialysis - midodrine, arun wrap legs. 5. Afib - as per #3. Coumadin. 6. Chronic diastolic CHF - evidence of volume overload. ARUN wraps added. Continue dialysis. Echo EF60%. 7. T2 DM with Super morbid obesity - dietary consult. continue lantus and SSI. not appropriate for resumption of metformin. Initiating TID insulin. 8. LASHAWN - conitnue bipap qhs 9. Hx VSD/PDA - s/p prior surgical repairs. DVT ppx: coumadin DC planning: renal function remains poor. PTOT. not out of bed for therapy due to SOB. may need SNF placement. This patient was seen by David Nolasco PA-C under the supervision of Dr. Figueroa. <Regulo Figueroa - Last Filed: 04/24/19 16:25> Vitals/I&O's: Vital Signs Temp Pulse Resp BP Pulse Ox 98.4 F 60 18 90/45 L 95 04/24/19 14:33 04/24/19 15:04 04/24/19 14:33 04/24/19 14:33 04/24/19 14:33 Oxygen Flow Rate (L/min) 2 Oxygen Delivery Method Nasal Cannula Weight: 156.8 kg Body Mass Index (BMI) 53.4 Finger Stick Blood Glucose 479 Intake and Output for Last 24 Hours 04/22/19 04/23/19 04/24/19 23:59 23:59 23:59 Intake Total 1320 / 1320 760 / 760 480 / 480 Output Total 3000 / 3000 400 / 400 200 / 200 Balance -1680 / -1680 360 / 360 280 / 280 Microbiology Past 72 Hours 04/18/19 08:06 Blood Culture (Wb) - Left Hand Blood Culture - Final No growth in 5 days. 04/18/19 08:00 Blood Culture (Wb) - Right Hand Blood Culture - Final No growth in 5 days. 04/18/19 21:15 Sputum, Expectorated/Coughed Gram Stain - Final 04/18/19 21:15 Sputum, Expectorated/Coughed Respiratory Culture - Final Haemophilus influenzae Mixed Malini Laboratory Results 04/22/19 08:57: Diff Path Review Reviewed 04/23/19 16:09: POC Glucose 261 H 04/23/19 21:34: POC Glucose 286 H 04/24/19 06:32: POC Glucose 169 H 04/24/19 06:35: WBC 10.9, RBC 4.33 L, Hgb 11.7 L, Hct 38.0 L, MCV 87.8, MCH 27.0, MCHC 30.8 L, RDW Std Deviation 48.0 H, RDW Coeff of Janiya 14.8 H, Plt Count 178, MPV 9.9, Immature Gran % (Auto) 0.700, Neut % (Auto) 84.1 H, Lymph % (Auto) 5.6 L, [place] % (Auto) 8.9, Eos % (Auto) 0.6, Baso % (Auto) 0.1, Absolute Neuts (auto) 9.1 H, Absolute Lymphs (auto) 0.61 L, Nucleated RBC % 0 04/24/19 06:35: Sodium 131 L, Potassium 5.0, Chloride 94 L, Carbon Dioxide 29.0, Anion Gap 8, BUN 89 H, Creatinine 5.07 H, Estim Creat Clear Calc 14.80, Est GFR (MDRD) Af Amer 15 L, Est GFR (MDRD) Non-Af 12 L, BUN/Creatinine Ratio 17.6, Glucose 181 H, Calcium 8.6 04/24/19 11:54: POC Glucose 229 H Current Medications Acetaminophen (Tylenol) 650 mg PO Q6H PRN PRN PRN Reason: Pain Score 1-3/Temp > 100.7 F Last Admin: 04/22/19 21:57 Dose: 650 mg Documented by: Al Hydroxide/Mg Hydroxide (Mylanta Ii) 30 ml PO Q6H PRN PRN PRN Reason: Gastric Burning Albuterol Sulfate (Ventolin Aerosols) 2.5 mg INHALATION Q2H PRN PRN PRN Reason: SOB/Wheezing Last Admin: 04/17/19 05:35 Dose: 2.5 mg Documented by: Albuterol/Ipratropium (Duoneb) 3 ml INHALATION Q4H.RT [facility] Last Admin: 04/24/19 14:59 Dose: 3 ml Documented by: Amiodarone HCl (Cordarone) 200 mg PO BID [facility] Last Admin: 04/24/19 14:59 Dose: 200 mg Documented by: Atorvastatin Calcium (Lipitor) 20 mg PO QHS [facility] Last Admin: 04/23/19 21:43 Dose: 20 mg Documented by: Glucagon () 1 mg IM .X1 PRN PRN Reason: Hypoglycemia Guaifenesin (Robitussin) 20 ml PO Q4H PRN PRN PRN Reason: COUGH Dextrose (Dextrose 10%-Water) 250 mls @ 999 mls/hr IV .Q16M PRN; Protocol PRN Reason: HYPOGLYCEMIA Sodium Chloride () 1,000 mls @ 15 mls/hr IV .Q48H [facility] Last Admin: 04/23/19 21:27 Dose: Not Given Documented by: Insulin Glargine (Lantus (Bk)) 40 units SC BID [facility] Last Admin: 04/24/19 15:03 Dose: Not Given Documented by: Insulin Human Lispro (Humalog Kwikpen (Bk)) 0 unit SC ACHS [facility]; Protocol Last Admin: 04/24/19 15:03 Dose: Not Given Documented by: Insulin Human Lispro (Humalog Kwikpen ([facility])) 5 unit SC TIDAC [facility] Last Admin: 04/24/19 16:03 Dose: Not Given Documented by: Levofloxacin (Levaquin Tablet) 250 mg PO Q48@0600 [facility] Last Admin: 04/23/19 05:19 Dose: 250 mg Documented by: Magnesium Hydroxide (Milk Of Magnesia) 30 ml PO DAILY PRN PRN PRN Reason: Constipation Last Admin: 04/23/19 10:03 Dose: 30 ml Documented by: Melatonin (Melatonin) 3 mg PO QHS PRN PRN PRN Reason: INSOMNIA Metoprolol Succinate (Toprol Xl (Beta Rakesh)) 100 mg PO DAILY [facility] Last Admin: 04/24/19 14:54 Dose: Not Given Documented by: Nitroglycerin (Nitrostat) 0.4 mg SUBLINGUAL Q5M PRN PRN Reason: CARDIAC/CHEST PAIN Ondansetron HCl (Zofran) 4 mg IV Q8H PRN PRN PRN Reason: NAUSEA/VOMITING Oxycodone HCl (Oxyir) 5 mg PO Q4H PRN PRN PRN Reason: Pain Score 4-5/10 Last Admin: 04/19/19 07:54 Dose: 5 mg Documented by: Oxycodone HCl (Oxyir) 10 mg PO Q4H PRN PRN PRN Reason: Pain Score 6-10/10 Senna (Senokot) 2 tablet PO DAILY PRN PRN Reason: Constipation Sodium Chloride () 10 - 40 ml IV UD PRN PRN Reason: SALINE FLUSH Last Admin: 04/23/19 21:43 Dose: 10 ml Documented by: Warfarin Sodium (Coumadin (Pb[facility])) 2.5 mg PO TuWe@0 [facility] Warfarin Sodium (Coumadin (Pbkc)) 5 mg PO SuMoThFrSa@2199 [facility] Last Admin: 04/23/19 21:43 Dose: 5 mg Documented by: STROKE Vital Signs/Narrative: Vital Signs Temp Pulse Resp BP Pulse Ox 04/24/19 15:04 60 04/24/19 14:54 60 04/24/19 14:33 98.4 F 60 18 90/45 L 95 04/24/19 14:15 98.4 F 60 20 H 90/45 L Assessment/Plan This patient was seen in conjunction with David Nolasco PA-C . I have independently interviewed and examined the patient and reviewed pertinent historical, laboratory, and other data. Please refer to David Nolasco PA-C note for details of this patient's presentation, findings, and recommendations. I have reviewed David Nolasco PA-C note and concur with documented findings. In brief, patient is a 79-year-old gentleman with multiple comorbidities admitted with progressive shortness of breath. Managed initially as a case of acute congestive heart failure with preserved ejection fraction. Patient hospital stay was complicated by worsening respiratory status thought to be secondary to hypercapnia from his obesity hypoventilation syndrome. His kidney function worsened resulting in placement of prior dialysis catheter with initiation of dialysis Physical Examination: GENERAL: Lethargic HEENT: Atraumatic; EYES; Anicteric, Normal Conjunctiva NECK; supple, normal thyroid, RESPIRATORY: Diminished to auscultation CARDIOVASCULAR: Regular S1 S2, GI: soft, normoactive bowel sounds, : No Renal angle tenderness; EXTREMITIES: Bilateral edema MUSCULOSKELETAL: no muscle waisting NEURO: Awake; no lateralizing signs. SKIN: No Rash PSYCH; Flat affect Assessment: 1. Acute hypoxic and hypercapnic respiratory failure 2. Acute on chronic congestive heart failure with preserved ejection fraction 3. Morbid obesity with BMI of 52.6 4. Essential hypertension 6. Severe pulmonary hypertension 7. Dyslipidemia 8. Congenital heart disease ~ with History of VSD repair Dacron patch repair at age 18 ; History of patent ductus arteriosus repair at age 3 9. History of paroxysmal A. fib/flutter status post ablation 10. Obstructive sleep apnea 11. 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 Nonsustained V. tach on amiodarone 13. DVT prophylaxis on Coumadin assisted Recommendations: 1. I have discussed the results of my overview and impressions with the patient 2. Options for management were reviewed Code Visit Inpatient E&M: 06471 Subs Hosp L2
--- NOTE | 2019-04-24 13:30 | CASEMGMT ---
This RN CM spoke with Alberta at [facility] and she states that pt's chair time is TTS at 1150, but we are still awaiting financial approval at this time. Darren SW updated on chair time as pt may need SNF at this time, voices understanding. Alberta will notify this RN JENNYFER when financial approval obtained. Angel MEJIA CM
--- NOTE | 2019-04-24 13:32 | CASEMGMT ---
SW spoke with patient's as patient was sleeping. Physician spoke with patient and his about going to a SNF for rehab. SW gave her a list of facilities that are in network with their insurance. Patient's works at [employer]. She asked if she needed to contact these facilities. SW told her she does not, she just needs to let SW know what her top 3 choices would be and SW will do the rest. SW told her SW can check back as he is not ready for discharge yet. Plan: Likely SNF. Need facility choices from family and an accepting facility. Ellie CISNEROS MSW
[2019-04-24 14:38] LABS: Pathologist Review Reviewed
--- NOTE | 2019-04-24 14:50 | DIALYSIS ---
HD x3.5 hours completed at 1410, stable tx, asymptomatic hypotension pre and throughout treatment, midodrine given during tx, BP still fluctuated with systolic 101 at most, UF 0mL, ran even, CritLine ended profile A, accessed via right chest tunneled dialysis catheter, worked well, next treatment per nephrology
[2019-04-24] MEDS: Amiodarone 200 MG Tablet PO ×2 (14:59→22:23)
--- NOTE | 2019-04-24 15:16 | PN_ITS ---
Patient Problems: Active and Suspected Problems (Last Reviewed 04/16/19 @ 11:18 by Regulo Figueroa MD) CHF (congestive heart failure) (Acute) MOUNA (acute kidney injury) (Acute) Subjective: no sob/cp - Physical Exam Vitals/I&O's: Vital Signs Temp Pulse Resp BP Pulse Ox 98.4 F 60 18 90/45 L 95 04/24/19 14:33 04/24/19 14:54 04/24/19 14:33 04/24/19 14:33 04/24/19 14:33 Oxygen Flow Rate (L/min) 2 Oxygen Delivery Method Nasal Cannula Weight: 156.8 kg Body Mass Index (BMI) 53.4 Finger Stick Blood Glucose 479 Intake and Output for Last 24 Hours 04/22/19 04/23/19 04/24/19 23:59 23:59 23:59 Intake Total 1320 / 1320 760 / 760 480 / 480 Output Total 3000 / 3000 400 / 400 200 / 200 Balance -1680 / -1680 360 / 360 280 / 280 General: Alert, Oriented x3, Cooperative HEENT: Atraumatic, PERRLA, EOMI, Normocephalic Neck: Supple, No JVD, Negative Carotid Bruits Lungs: Clear to auscultation, Normal air movement Cardiovascular: Regular rate, No murmurs Abdomen: Bowel Sounds Present, Soft, Non Tender, Obese Extremities: No edema, Capillary Refill Less than 3 Seconds, - - tasha wraps b/l LE Skin: No rashes, No breakdown Musculoskeletal: No Tenderness to Palpation of Joints or Extremities Neurological: Cranial nerves II-XII grossly intact Psych/Mental Status: Normal Affect, Appropriate Microbiology Past 72 Hours 04/18/19 08:06 Blood Culture (Wb) - Left Hand Blood Culture - Final No growth in 5 days. 04/18/19 08:00 Blood Culture (Wb) - Right Hand Blood Culture - Final No growth in 5 days. 04/18/19 21:15 Sputum, Expectorated/Coughed Gram Stain - Final 04/18/19 21:15 Sputum, Expectorated/Coughed Respiratory Culture - Final Haemophilus influenzae Mixed Malini Laboratory Results 04/22/19 08:57: Diff Path Review Reviewed 04/23/19 16:09: POC Glucose 261 H 04/23/19 21:34: POC Glucose 286 H 04/24/19 06:32: POC Glucose 169 H 04/24/19 06:35: WBC 10.9, RBC 4.33 L, Hgb 11.7 L, Hct 38.0 L, MCV 87.8, MCH 27.0, MCHC 30.8 L, RDW Std Deviation 48.0 H, RDW Coeff of Janiya 14.8 H, Plt Count 178, MPV 9.9, Immature Gran % (Auto) 0.700, Neut % (Auto) 84.1 H, Lymph % (Auto) 5.6 L, [place] % (Auto) 8.9, Eos % (Auto) 0.6, Baso % (Auto) 0.1, Absolute Neuts (auto) 9.1 H, Absolute Lymphs (auto) 0.61 L, Nucleated RBC % 0 04/24/19 06:35: Sodium 131 L, Potassium 5.0, Chloride 94 L, Carbon Dioxide 29.0, Anion Gap 8, BUN 89 H, Creatinine 5.07 H, Estim Creat Clear Calc 14.80, Est GFR (MDRD) Af Amer 15 L, Est GFR (MDRD) Non-Af 12 L, BUN/Creatinine Ratio 17.6, Glucose 181 H, Calcium 8.6 04/24/19 11:54: POC Glucose 229 H Current Medications Acetaminophen (Tylenol) 650 mg PO Q6H PRN PRN PRN Reason: Pain Score 1-3/Temp > 100.7 F Last Admin: 04/22/19 21:57 Dose: 650 mg Documented by: Al Hydroxide/Mg Hydroxide (Mylanta Ii) 30 ml PO Q6H PRN PRN PRN Reason: Gastric Burning Albuterol Sulfate (Ventolin Aerosols) 2.5 mg INHALATION Q2H PRN PRN PRN Reason: SOB/Wheezing Last Admin: 04/17/19 05:35 Dose: 2.5 mg Documented by: Albuterol/Ipratropium (Duoneb) 3 ml INHALATION Q4H.RT [facility] Last Admin: 04/24/19 14:59 Dose: 3 ml Documented by: Amiodarone HCl (Cordarone) 200 mg PO BID [facility] Last Admin: 04/24/19 14:59 Dose: 200 mg Documented by: Atorvastatin Calcium (Lipitor) 20 mg PO QHS [facility] Last Admin: 04/23/19 21:43 Dose: 20 mg Documented by: Glucagon () 1 mg IM .X1 PRN PRN Reason: Hypoglycemia Guaifenesin (Robitussin) 20 ml PO Q4H PRN PRN PRN Reason: COUGH Dextrose (Dextrose 10%-Water) 250 mls @ 999 mls/hr IV .Q16M PRN; Protocol PRN Reason: HYPOGLYCEMIA Sodium Chloride () 1,000 mls @ 15 mls/hr IV .Q48H [facility] Last Admin: 04/23/19 21:27 Dose: Not Given Documented by: Insulin Glargine (Lantus ([facility])) 40 units SC BID [facility] Last Admin: 04/24/19 15:03 Dose: Not Given Documented by: Insulin Human Lispro (Humalog Kwikpen ([facility])) 0 unit SC ACHS [facility]; Protocol Last Admin: 04/24/19 15:03 Dose: Not Given Documented by: Insulin Human Lispro (Humalog Kwikpen ([facility])) 5 unit SC TIDAC [facility] Levofloxacin (Levaquin Tablet) 250 mg PO Q48@0600 [facility] Last Admin: 04/23/19 05:19 Dose: 250 mg Documented by: Magnesium Hydroxide (Milk Of Magnesia) 30 ml PO DAILY PRN PRN PRN Reason: Constipation Last Admin: 04/23/19 10:03 Dose: 30 ml Documented by: Melatonin (Melatonin) 3 mg PO QHS PRN PRN PRN Reason: INSOMNIA Metoprolol Succinate (Toprol Xl (Beta Rakesh)) 100 mg PO DAILY [facility] Last Admin: 04/24/19 14:54 Dose: Not Given Documented by: Nitroglycerin (Nitrostat) 0.4 mg SUBLINGUAL Q5M PRN PRN Reason: CARDIAC/CHEST PAIN Ondansetron HCl (Zofran) 4 mg IV Q8H PRN PRN PRN Reason: NAUSEA/VOMITING Oxycodone HCl (Oxyir) 5 mg PO Q4H PRN PRN PRN Reason: Pain Score 4-5/10 Last Admin: 04/19/19 07:54 Dose: 5 mg Documented by: Oxycodone HCl (Oxyir) 10 mg PO Q4H PRN PRN PRN Reason: Pain Score 6-10/10 Senna (Senokot) 2 tablet PO DAILY PRN PRN Reason: Constipation Sodium Chloride () 10 - 40 ml IV UD PRN PRN Reason: SALINE FLUSH Last Admin: 04/23/19 21:43 Dose: 10 ml Documented by: Warfarin Sodium (Coumadin (Pbkc)) 2.5 mg PO TuWe@2200 DANIEL Warfarin Sodium (Coumadin (Pbkc)) 5 mg PO SuMoThFrSa@2200 DANIEL Last Admin: 04/23/19 21:43 Dose: 5 mg Documented by: Medical Necessity - Tobacco Use Smoking Status: Former smoker Assessment/Plan All Active Problems (Last Reviewed 04/16/19 @ 11:18 by Regulo Figueroa MD) CHF (congestive heart failure) (Acute) MOUNA (acute kidney injury) (Acute) Acute respiratory failure (Resolved) Pneumonia, community acquired (Resolved) Sepsis (Resolved) MOUNA on CKD stage III Hyponatremia hypervolemic CHF Afib DM I discussed with the patient at length the major risks and benefits of renal biopsy but he is not interested in renal biopsy at this time. Despite midodrine his blood pressure was in the 90s so could not do ultrafiltration today. Case management working on dialysis unit placement avoid nephrotoxins d/w with patient and dialysis nurse
[2019-04-24 17:05] LABS: Bedside Glucose 134 mg/dL (70-110)
[2019-04-24] MEDS: Atorvastatin Calcium 20 MG Tablet PO (22:23)
[2019-04-24] MEDS: oxyCODONE 5 MG Tablet PO (22:23)
[2019-04-24] MEDS: MELATONIN 3 MG TABLET PO (22:24)
[2019-04-24 22:41] LABS: Bedside Glucose 186 mg/dL (70-110)
[2019-04-25] VITALS (15 sets, daily range): BP systolic 88–114; BP diastolic 35–56; PULSE 56–68; RESP 12–18; TEMP 36.6–36.8; O2SAT 95–99
[2019-04-25] MEDS: levoFLOXacin 250 MG Tablet PO (05:44)
[2019-04-25 07:36] LABS: Anion Gap 5 (5-15); BUN 60 mg/dL (7-18); BUN/Creat Ratio 14.3 RATIO (10-20); Calcium,Total 8.2 mg/dL (8.5-10.1); Chloride 97 mmol/L (98-107); EST Glomerular Filtration Rate 15 mL/min (>60); Est Glom Filt Rate - Afr Amer 19 mL/min (>60); Estimated Creatinine Clearance 17.87 ml/min; Glucose 137 mg/dL (74-106); Potassium 4.6 mmol/L (3.5-5.1); Sodium Level 135 mmol/L (136-145)
[2019-04-25 07:40] LABS: Bedside Glucose 122 mg/dL (70-110)
[2019-04-25 08:25] LABS: International Normalized Ratio 3.2
--- NOTE | 2019-04-25 08:36 | PN.CARD_ITS ---
Subjectve: Patient seen and evaluated. Appears to be doing better. No arrhythmias over the last 24 hours Objective: Vital Signs Temp Pulse Resp BP Pulse Ox 97.9 F 57 L 18 98/52 L 98 04/25/19 04:00 04/25/19 06:54 04/25/19 04:00 04/25/19 04:00 04/25/19 04:00 Oxygen Flow Rate (L/min) 2 Oxygen Delivery Method Nasal Cannula Weight: 348 lb 12.34 oz Body Mass Index (BMI) 53.4 Finger Stick Blood Glucose 479 Intake and Output for Last 24 Hours 04/23/19 04/24/19 04/25/19 23:59 23:59 23:59 Intake Total 760 / 760 960 / 960 240 / 240 Output Total 400 / 400 500 / 500 200 / 200 Balance 360 / 360 460 / 460 40 / 40 General: Awake, Alert, Oriented x 3 HEENT: PERRL, EOMI, Sclera Non Icteric Neck: Supple, Good ROM, No Lymph Node Enlargement Lungs: Clear to auscultation Cardiovascular: Regular Rhythm, Normal S1, Normal S2, No Murmurs, No Rubs, No Gallops Vascular: No Carotid Bruits, Normal Femoral Pulses, Normal Radial Pulses, Normal Dorsalis Pedal Pulse, Normal Posterior Tibial Pulses Abdomen: Bowel Sounds Present, Soft, Non Tender, No HSM, No Organomegaly Extremities: No Cyanosis, No Clubbing, No edema Musculoskeletal: No Erythema Skin: No Rashes Lymphatic: No Lymph Node Enlargement Neurological: No Focal Motor or Sensory Deficit Psych/Mental Status: Appropriate 04/25/19 06:44: Sodium 135 L, Potassium 4.6, Chloride 97 L, Carbon Dioxide 33.0 H, Anion Gap 5, BUN 60 H, Creatinine 4.20 H, Est GFR (MDRD) Af Amer 19 L, Est GFR (MDRD) Non-Af 15 L, BUN/Creatinine Ratio 14.3, Glucose 137 H, Calcium 8.2 L 04/25/19 07:51: PT 33.0 H, INR 3.2 Rhythm: EKG: ECHO: Stress Test: Cardiac Cath: PCI: CT Surgery: Holter monitor: EPS: PPM: CXR: Chest CT Scan: Medical Necessity - Tobacco Use Smoking Status: Former smoker Assessment/Plan 1. Shortness of breath * The etiology of the above is unlikely to be primary cardiac in etiology. His natruretic peptide level was normal, his echocardiogram demonstrated preserved ejection fraction. He may have a problem with obesity hypoventilation syndrome. With consequence hypercapnia. * Will hold off on further diuresis * Patient currently is undergoing dialysis. 2. Supraventricular tachycardia and atrial fibrillation * Patient is anticoagulated for the above * He is also on a beta-jackson. He is status post failed ablation. I would recommend that we start him on amiodarone short-term to see whether this would be able to control his heart rate. Depending on the findings further recommendations will be made. * He did have an episode of a wide complex tachycardia which was likely a supraventricular tachycardia with aberrancy. He briefly responded to adenosine but responded to high-dose adenosine combined with intravenous amiodarone. * He was given oral amiodarone to which he is tolerating quite well. * The diltiazem has been discontinued. He appears to be maintaining sinus rhythm at this time. 3. Hypertension * Good control on the current medical therapy. No major changes will be made at this time. * * From the cardiac standpoint he appears to be stable and I would not make any major changes. * * * Thank you for allowing me to participate in the care of your patient. Please don't hesitate to call if any issues arise
--- NOTE | 2019-04-25 09:36 | CASEMGMT ---
SW spoke with patient. Introduced self and role at [facility] as patient was not awake the other times SW was in room. SW discussed fdc at d/c for rehab. SW asked if he knows which facility. He said he does not know as he and his have not been able to talk about it yet. SW called patient's and she said the same. She wants to talk with him about it this afternoon. Plan: SNF pending family choosing facility, accepting facility, and insurance authorization. Ellie CISNEROS MSW
[2019-04-25] MEDS: Amiodarone 200 MG Tablet PO ×2 (09:46→22:02)
--- NOTE | 2019-04-25 10:27 | PCM.PN.PUL ---
Patient Problems: Active and Suspected Problems (Last Reviewed 04/16/19 @ 11:18 by Regulo Figeuroa MD) CHF (congestive heart failure) (Acute) MOUNA (acute kidney injury) (Acute) Subjective: The patient was seen and examined at the bedside this morning. Events from the last 24 hours have been reviewed. The patient is currently afebrile, hemodynamically stable and maintaining appropriate oxygen saturations on 2 L/min via nasal cannula. The patient does continue to report the presence of shortness of breath. Objective: The patient's most recent lab work, culture data and imaging studies have all been personally reviewed. Sputum culture was positive for Haemophilus influenza. - Physical Exam Vitals/I&O's: Vital Signs Temp Pulse Resp BP Pulse Ox 98.0 F 62 16 88/40 L 95 04/25/19 09:27 04/25/19 09:45 04/25/19 09:27 04/25/19 09:27 04/25/19 09:58 Oxygen Flow Rate (L/min) 2 Oxygen Delivery Method Nasal Cannula Weight: 348 lb 12.34 oz Body Mass Index (BMI) 53.4 Finger Stick Blood Glucose 479 Intake and Output for Last 24 Hours 04/23/19 04/24/19 04/25/19 23:59 23:59 23:59 Intake Total 760 / 760 960 / 960 240 / 240 Output Total 400 / 400 500 / 500 200 / 200 Balance 360 / 360 460 / 460 40 / 40 General: Alert, Cooperative, No apparent distress HEENT: Atraumatic, Normocephalic Oral: No Gingival or Mucosal Lesions/ Ulcerations Neck: Supple, No Nodes, Trachea Midline Lungs: Diminished Cardiovascular: Regular rate, Regular Rhythm, Normal S1, Normal S2, No murmurs Abdomen: Bowel Sounds Present, Soft, Non Tender, Obese Extremities: No clubbing, No cyanosis, Edema Skin: No breakdown Musculoskeletal: No Tenderness to Palpation of Joints or Extremities Lymphatic: No Cervical, Supraclavicular, or Inguinal Adenopathy Neurological: Neuro grossly intact Psych/Mental Status: Normal Affect, Appropriate Labs (Last 48 Hours) 04/22/19 04/23/19 04/23/19 08:57 06:10 11:20 WBC RBC Hgb Hct MCV MCH MCHC RDW Std Deviation RDW Coeff of Janiya Plt Count MPV Immature Gran % (Auto) Neut % (Auto) Lymph % (Auto) Mccormick % (Auto) Eos % (Auto) Baso % (Auto) Absolute Neuts (auto) Absolute Lymphs (auto) Nucleated RBC % Diff Path Review Reviewed PT 24.2 H INR 2.2 Sodium Potassium Chloride Carbon Dioxide Anion Gap BUN Creatinine Estim Creat Clear Calc Est GFR (MDRD) Af Amer Est GFR (MDRD) Non-Af BUN/Creatinine Ratio Glucose Calcium POC Glucose 219 H 04/23/19 04/23/19 04/24/19 16:09 21:34 06:32 WBC RBC Hgb Hct MCV MCH MCHC RDW Std Deviation RDW Coeff of Janiya Plt Count MPV Immature Gran % (Auto) Neut % (Auto) Lymph % (Auto) Mccormick % (Auto) Eos % (Auto) Baso % (Auto) Absolute Neuts (auto) Absolute Lymphs (auto) Nucleated RBC % Diff Path Review PT INR Sodium Potassium Chloride Carbon Dioxide Anion Gap BUN Creatinine Estim Creat Clear Calc Est GFR (MDRD) Af Amer Est GFR (MDRD) Non-Af BUN/Creatinine Ratio Glucose Calcium POC Glucose 261 H 286 H 169 H 04/24/19 04/24/19 04/24/19 06:35 06:35 11:54 WBC 10.9 RBC 4.33 L Hgb 11.7 L Hct 38.0 L MCV 87.8 MCH 27.0 MCHC 30.8 L RDW Std Deviation 48.0 H RDW Coeff of Janiya 14.8 H Plt Count 178 MPV 9.9 Immature Gran % (Auto) 0.700 Neut % (Auto) 84.1 H Lymph % (Auto) 5.6 L Mccormick % (Auto) 8.9 Eos % (Auto) 0.6 Baso % (Auto) 0.1 Absolute Neuts (auto) 9.1 H Absolute Lymphs (auto) 0.61 L Nucleated RBC % 0 Diff Path Review PT INR Sodium 131 L Potassium 5.0 Chloride 94 L Carbon Dioxide 29.0 Anion Gap 8 BUN 89 H Creatinine 5.07 H Estim Creat Clear Calc 14.80 Est GFR (MDRD) Af Amer 15 L Est GFR (MDRD) Non-Af 12 L BUN/Creatinine Ratio 17.6 Glucose 181 H Calcium 8.6 POC Glucose 229 H 04/24/19 04/24/19 04/25/19 15:00 22:17 06:44 WBC RBC Hgb Hct MCV MCH MCHC RDW Std Deviation RDW Coeff of Janiya Plt Count MPV Immature Gran % (Auto) Neut % (Auto) Lymph % (Auto) Mccormick % (Auto) Eos % (Auto) Baso % (Auto) Absolute Neuts (auto) Absolute Lymphs (auto) Nucleated RBC % Diff Path Review PT INR Sodium 135 L Potassium 4.6 Chloride 97 L Carbon Dioxide 33.0 H Anion Gap 5 BUN 60 H Creatinine 4.20 H Estim Creat Clear Calc 17.87 Est GFR (MDRD) Af Amer 19 L Est GFR (MDRD) Non-Af 15 L BUN/Creatinine Ratio 14.3 Glucose 137 H Calcium 8.2 L POC Glucose 134 H 186 H 04/25/19 04/25/19 07:27 07:51 WBC RBC Hgb Hct MCV MCH MCHC RDW Std Deviation RDW Coeff of Janiya Plt Count MPV Immature Gran % (Auto) Neut % (Auto) Lymph % (Auto) Mccormick % (Auto) Eos % (Auto) Baso % (Auto) Absolute Neuts (auto) Absolute Lymphs (auto) Nucleated RBC % Diff Path Review PT 33.0 H INR 3.2 Sodium Potassium Chloride Carbon Dioxide Anion Gap BUN Creatinine Estim Creat Clear Calc Est GFR (MDRD) Af Amer Est GFR (MDRD) Non-Af BUN/Creatinine Ratio Glucose Calcium POC Glucose 122 H Microbiology 04/18/19 08:06 Blood Culture (Wb) - Left Hand Blood Culture - Final No growth in 5 days. 04/18/19 08:00 Blood Culture (Wb) - Right Hand Blood Culture - Final No growth in 5 days. Clinical Impression(s) from Imaging Studies Chest X-Ray 04/16/19 09:06 IMPRESSION: Congestion with features described above. Electronically Signed: Adonis Sanchez at 9:40 EST Tel , Service support , Chest X-Ray 04/17/19 05:40 IMPRESSION: Cardiomegaly with CHF and pulmonary edema. Small right pleural effusion. No definite change from previous study. Electronically Signed: Fer Dotson MD at 7:01 EST , Service support , Chest CT 04/17/19 07:43 IMPRESSION: Patchy bilateral pulmonary infiltrates. Follow-up is recommended. Electronically Signed: Fortunato Dorethagamalmarlene, at 14:26 EST , Service support , Lung Scan-VQ NM 04/17/19 07:51 IMPRESSION: 1. VERY LOW PROBABILITY FOR PULMONARY EMBOLUS (<10%) 99m Tc DTPA aerosol ventilation / 99m Tc MAA pulmonary perfusion imaging examination, according to PIOPED II interpretive criteria with regard given to the presence of > 2 ventilation-perfusion matches without corresponding radiographic changes. (Sotsman et al, Radiology 246: 941, 2008 Sotsjose et al, J Nucl Med 49: 1741, 2008). 2. Central clumping of the aerosol may be secondary to obstructive airway mechanics and or clinical tachypnea. Electronically Signed: Neftaly Marin DO at 14:07 EST Tel , Service support , Renal Ultrasound 04/17/19 12:16 IMPRESSION: Findings consistent with nonspecific renal parenchymal disease. No evidence for renal obstruction. Left renal cyst measuring 2.5 x 2.4 x 2.5 cm. Electronically Signed: Adonis Seals MD at 22:52 EST , Service support , Chest X-Ray 04/19/19 17:55 IMPRESSION: 1. Right jugular hemodialysis catheter without pneumothorax. Right decrease in vascular congestion when compared to prior study. Electronically Signed: Robert Bradley DO at 19:22 EST Tel [phone], Service support , Chest X-Ray 04/22/19 06:10 IMPRESSION: Stable bilateral edema or infiltrates. Electronically Signed: Arnold Murrell MD at 8:26 EST , Service support , Current Medications Acetaminophen (Tylenol) 650 mg PO Q6H PRN PRN PRN Reason: Pain Score 1-3/Temp > 100.7 F Last Admin: 04/22/19 21:57 Dose: 650 mg Documented by: Al Hydroxide/Mg Hydroxide (Mylanta Ii) 30 ml PO Q6H PRN PRN PRN Reason: Gastric Burning Albuterol Sulfate (Ventolin Aerosols) 2.5 mg INHALATION Q2H PRN PRN PRN Reason: SOB/Wheezing Last Admin: 04/17/19 05:35 Dose: 2.5 mg Documented by: Albuterol/Ipratropium (Duoneb) 3 ml INHALATION Q4H.RT [facility] Last Admin: 04/25/19 07:10 Dose: Not Given Documented by: Amiodarone HCl (Cordarone) 200 mg PO BID [facility] Last Admin: 04/25/19 09:46 Dose: 200 mg Documented by: Atorvastatin Calcium (Lipitor) 20 mg PO QHS [facility] Last Admin: 04/24/19 22:23 Dose: 20 mg Documented by: Glucagon () 1 mg IM .X1 PRN PRN Reason: Hypoglycemia Guaifenesin (Robitussin) 20 ml PO Q4H PRN PRN PRN Reason: COUGH Dextrose (Dextrose 10%-Water) 250 mls @ 999 mls/hr IV .Q16M PRN; Protocol PRN Reason: HYPOGLYCEMIA Insulin Glargine (Lantus (Bkc)) 40 units SC BID [facility] Last Admin: 04/24/19 22:21 Dose: 40 units Documented by: Insulin Human Lispro (Humalog Kwikpen (Bkc)) 0 unit SC ACHS [facility]; Protocol Last Admin: 04/25/19 07:28 Dose: Not Given Documented by: Insulin Human Lispro (Humalog Kwikpen (Bkc)) 5 unit SC TIDAC [facility] Last Admin: 04/25/19 07:59 Dose: Not Given Documented by: Levofloxacin (Levaquin Tablet) 250 mg PO Q48@0600 [facility] Last Admin: 04/25/19 05:44 Dose: 250 mg Documented by: Magnesium Hydroxide (Milk Of Magnesia) 30 ml PO DAILY PRN PRN PRN Reason: Constipation Last Admin: 01/12/20 10:03 Dose: 30 ml Documented by: Melatonin (Melatonin) 3 mg PO QHS PRN PRN PRN Reason: INSOMNIA Last Admin: 04/24/19 22:24 Dose: 3 mg Documented by: Metoprolol Succinate (Toprol Xl (Beta Rakesh)) 50 mg PO DAILY [facility] Last Admin: 04/25/19 09:45 Dose: Not Given Documented by: Nitroglycerin (Nitrostat) 0.4 mg SUBLINGUAL Q5M PRN PRN Reason: CARDIAC/CHEST PAIN Ondansetron HCl (Zofran) 4 mg IV Q8H PRN PRN PRN Reason: NAUSEA/VOMITING Oxycodone HCl (Oxyir) 5 mg PO Q4H PRN PRN PRN Reason: Pain Score 4-5/10 Last Admin: 04/24/19 22:23 Dose: 5 mg Documented by: Oxycodone HCl (Oxyir) 10 mg PO Q4H PRN PRN PRN Reason: Pain Score 6-10/10 Senna (Senokot) 2 tablet PO DAILY PRN PRN Reason: Constipation Sodium Chloride () 10 - 40 ml IV UD PRN PRN Reason: SALINE FLUSH Last Admin: 04/23/19 21:43 Dose: 10 ml Documented by: Warfarin Sodium (Coumadin (Pbkc)) 2.5 mg PO TuWe@2200 [facility] Warfarin Sodium (Coumadin (Pbkc)) 5 mg PO SuMoThFrSa@2200 [facility] Last Admin: 04/24/19 22:24 Dose: 5 mg Documented by: Medical Necessity - Tobacco Use Smoking Status: Former smoker Assessment/Plan All Active Problems (Last Reviewed 04/16/19 @ 11:18 by Regulo Figueroa MD) CHF (congestive heart failure) (Acute) MOUNA (acute kidney injury) (Acute) Acute respiratory failure (Resolved) Pneumonia, community acquired (Resolved) Sepsis (Resolved) RECOMMENDATIONS: 1. Continue volume management with hemodialysis per nephrology recommendations. 2. Continue BiPAP therapy with naps and nightly. 3. Continue antimicrobials to complete treatment course. 4. Wean supplemental oxygen and encourage incentive spirometer use. Mobilize patient as tolerated. IMPRESSIONS: 1. Acute on chronic hypercarbic respiratory failure Unclear etiology at this time. Patient does have clinical signs and symptoms of increased volume status with recent travel. Work-up for pulmonary embolism was negative. Recommend continuing further attempts at volume optimization with hemodialysis per nephrology recommendations. Continue antimicrobials to complete treatment course, given Haemophilus influenza noted on culture. Continue BiPAP therapy with naps and nightly. Avoid sedating medications. Repeat arterial blood gas with alteration in mentation. 2. Acute on chronic kidney disease stage III/hyperkalemia Etiology unclear, but may be secondary to underlying diabetes. Nephrology is currently following. Continue hemodialysis as tolerated. 3. Chronic A. fib/chronic diastolic congestive heart failure/history of VSD repair/pulmonary hypertension Patient anticoagulated and doing well. No signs or symptoms of bleeding at this time. Continue medical management per cardiology recommendations. 4. Hypertension/type 2 diabetes mellitus/hyperlipidemia/morbid obesity/noncompliant LASHAWN Complicates care, management, recovery and prognosis. Continue baseline outpatient medications and BiPAP therapy as ordered. This note was generated with [email or web address] dictation software. It may contain incorrect words, spelling, and punctuation that were not noted in checking the note before signing. Code Visit Inpatient E&M: 30100 Subs Hosp L2
[2019-04-25] MEDS: Insulin Lispro 100 UNIT/ML INSULN.PEN SC ×4 (10:45→16:37)
[2019-04-25 11:00] LABS: Bedside Glucose 199 mg/dL (70-110)
--- NOTE | 2019-04-25 12:05 | PCM.PN.REN ---
Patient Problems: Active and Suspected Problems (Last Reviewed 04/16/19 @ 11:18 by Regulo Figueroa MD) CHF (congestive heart failure) (Acute) MOUNA (acute kidney injury) (Acute) Subjective: No shortness of breath no chest pain he still has residual urine output - Physical Exam Vitals/I&O's: Vital Signs Temp Pulse Resp BP Pulse Ox 98.2 F 64 18 89/35 L 96 04/25/19 10:52 04/25/19 11:01 04/25/19 10:52 04/25/19 10:52 04/25/19 10:52 Oxygen Flow Rate (L/min) 2 Oxygen Delivery Method Nasal Cannula Weight: 158.2 kg Body Mass Index (BMI) 53.4 Finger Stick Blood Glucose 479 Intake and Output for Last 24 Hours 04/23/19 04/24/19 04/25/19 23:59 23:59 23:59 Intake Total 760 / 760 960 / 960 240 / 240 Output Total 400 / 400 500 / 500 200 / 200 Balance 360 / 360 460 / 460 40 / 40 General: Alert, Oriented x3, Cooperative HEENT: Atraumatic, PERRLA, EOMI, Normocephalic Neck: Supple, No JVD, Negative Carotid Bruits Lungs: Clear to auscultation, Normal air movement Cardiovascular: Regular rate, No murmurs Abdomen: Bowel Sounds Present, Soft, Non Tender, Obese Extremities: Capillary Refill Less than 3 Seconds, - - Pretibial bilateral lower extremity edema Kendell wraps in place Skin: No rashes, No breakdown Musculoskeletal: No Tenderness to Palpation of Joints or Extremities Neurological: Cranial nerves II-XII grossly intact Psych/Mental Status: Normal Affect, Appropriate Microbiology Past 72 Hours 04/18/19 08:06 Blood Culture (Wb) - Left Hand Blood Culture - Final No growth in 5 days. 04/18/19 08:00 Blood Culture (Wb) - Right Hand Blood Culture - Final No growth in 5 days. Laboratory Results 04/22/19 08:57: Diff Path Review Reviewed 04/24/19 11:54: POC Glucose 229 H 04/24/19 15:00: POC Glucose 134 H 04/24/19 22:17: POC Glucose 186 H 04/25/19 06:44: Sodium 135 L, Potassium 4.6, Chloride 97 L, Carbon Dioxide 33.0 H, Anion Gap 5, BUN 60 H, Creatinine 4.20 H, Estim Creat Clear Calc 17.87, Est GFR (MDRD) Af Amer 19 L, Est GFR (MDRD) Non-Af 15 L, BUN/Creatinine Ratio 14.3, Glucose 137 H, Calcium 8.2 L 04/25/19 07:27: POC Glucose 122 H 04/25/19 07:51: PT 33.0 H, INR 3.2 04/25/19 10:41: POC Glucose 199 H Current Medications Acetaminophen (Tylenol) 650 mg PO Q6H PRN PRN PRN Reason: Pain Score 1-3/Temp > 100.7 F Last Admin: 04/22/19 21:57 Dose: 650 mg Documented by: Al Hydroxide/Mg Hydroxide (Mylanta Ii) 30 ml PO Q6H PRN PRN PRN Reason: Gastric Burning Albuterol Sulfate (Ventolin Aerosols) 2.5 mg INHALATION Q2H PRN PRN PRN Reason: SOB/Wheezing Last Admin: 04/17/19 05:35 Dose: 2.5 mg Documented by: Albuterol/Ipratropium (Duoneb) 3 ml INHALATION Q4H.RT [facility] Last Admin: 04/25/19 11:00 Dose: Not Given Documented by: Amiodarone HCl (Cordarone) 200 mg PO BID [facility] Last Admin: 04/25/19 09:46 Dose: 200 mg Documented by: Atorvastatin Calcium (Lipitor) 20 mg PO QHS [facility] Last Admin: 04/24/19 22:23 Dose: 20 mg Documented by: Glucagon () 1 mg IM .X1 PRN PRN Reason: Hypoglycemia Guaifenesin (Robitussin) 20 ml PO Q4H PRN PRN PRN Reason: COUGH Dextrose (Dextrose 10%-Water) 250 mls @ 999 mls/hr IV .Q16M PRN; Protocol PRN Reason: HYPOGLYCEMIA Insulin Glargine (Lantus (Bkc)) 40 units SC BID [facility] Last Admin: 04/25/19 10:44 Dose: 40 units Documented by: Insulin Human Lispro (Humalog Kwikpen (Bkc)) 0 unit SC ACHS [facility]; Protocol Last Admin: 04/25/19 10:45 Dose: 3 units Documented by: Insulin Human Lispro (Humalog Kwikpen (Bkc)) 5 unit SC TIDAC [facility] Last Admin: 04/25/19 10:45 Dose: 5 units Documented by: Levofloxacin (Levaquin Tablet) 250 mg PO Q48@0600 [facility] Last Admin: 04/25/19 05:44 Dose: 250 mg Documented by: Magnesium Hydroxide (Milk Of Magnesia) 30 ml PO DAILY PRN PRN PRN Reason: Constipation Last Admin: 04/23/19 10:03 Dose: 30 ml Documented by: Melatonin (Melatonin) 3 mg PO QHS PRN PRN PRN Reason: INSOMNIA Last Admin: 04/24/19 22:24 Dose: 3 mg Documented by: Metoprolol Succinate (Toprol Xl (Beta Rakesh)) 50 mg PO DAILY [facility] Last Admin: 04/25/19 09:45 Dose: Not Given Documented by: Nitroglycerin (Nitrostat) 0.4 mg SUBLINGUAL Q5M PRN PRN Reason: CARDIAC/CHEST PAIN Ondansetron HCl (Zofran) 4 mg IV Q8H PRN PRN PRN Reason: NAUSEA/VOMITING Oxycodone HCl (Oxyir) 5 mg PO Q4H PRN PRN PRN Reason: Pain Score 4-5/10 Last Admin: 04/24/19 22:23 Dose: 5 mg Documented by: Oxycodone HCl (Oxyir) 10 mg PO Q4H PRN PRN PRN Reason: Pain Score 6-10/10 Senna (Senokot) 2 tablet PO DAILY PRN PRN Reason: Constipation Sodium Chloride () 10 - 40 ml IV UD PRN PRN Reason: SALINE FLUSH Last Admin: 04/23/19 21:43 Dose: 10 ml Documented by: Warfarin Sodium (Coumadin (Pbkc)) 2.5 mg PO TuWe@0 [facility] Warfarin Sodium (Coumadin (Pbkc)) 5 mg PO SuMoThFrSa@2200 [facility] Last Admin: 04/24/19 22:24 Dose: 5 mg Documented by: Medical Necessity - Tobacco Use Smoking Status: Former smoker Assessment/Plan All Active Problems (Last Reviewed 04/16/19 @ 11:18 by Regulo Figueroa MD) CHF (congestive heart failure) (Acute) MOUNA (acute kidney injury) (Acute) Acute respiratory failure (Resolved) Pneumonia, community acquired (Resolved) Sepsis (Resolved) MOUNA on CKD stage III Hyponatremia hypervolemic CHF Afib DM I discussed with the patient at length the major risks and benefits of renal biopsy but he is not interested in renal biopsy at this time. Check labs in the morning but most likely will do another dialysis treatment tomorrow with UF as tolerated. If blood pressure still low we might need to use midodrine prior to dialysis treatment. Recommend to hold blood pressure meds if systolic blood pressure is less than 105. Case management working on dialysis unit placement avoid nephrotoxins d/w with patient
--- NOTE | 2019-04-25 13:02 | PN_ITS ---
<David Nolasco - Last Filed: 04/25/19 13:02> Patient Problems: Active and Suspected Problems (Last Reviewed 04/16/19 @ 11:18 by Regulo Figueroa MD) CHF (congestive heart failure) (Acute) MOUNA (acute kidney injury) (Acute) Reason for Visit: SOB Subjective: Pt complains of severe weakness and fatigue. He feels there is no way that he can go home as he has stairs and is too weak to take care of himself. He plans to pursue SNF options with SW. He has ongoing dyspnea with minimal improvement, and ongoing LE edema. BP and pulse borderline low. Metoprolol held this AM. No palpitations. No CP/pressure/heaviness/pressure. No LH/dizziness. He is more alert today and upright in chair at bedside. Vitals/I&O's: Vital Signs Temp Pulse Resp BP Pulse Ox 98.2 F 64 18 89/35 L 96 04/25/19 10:52 04/25/19 11:01 04/25/19 10:52 04/25/19 10:52 04/25/19 10:52 Oxygen Flow Rate (L/min) 2 Oxygen Delivery Method Nasal Cannula Weight: 348 lb 12.34 oz Body Mass Index (BMI) 53.4 Finger Stick Blood Glucose 479 Intake and Output for Last 24 Hours 04/23/19 04/24/19 04/25/19 23:59 23:59 23:59 Intake Total 760 / 760 960 / 960 740 / 740 Output Total 400 / 400 500 / 500 300 / 300 Balance 360 / 360 460 / 460 440 / 440 General: Alert, Oriented x3, Cooperative HEENT: Atraumatic, PERRLA, EOMI, Normocephalic Neck: Supple, No JVD, Negative Carotid Bruits Lungs: Diminished, Wheezes - faint wheeze on expiration Cardiovascular: Regular rate, No murmurs Abdomen: Bowel Sounds Present, Soft, Non Tender, Obese Extremities: Capillary Refill Less than 3 Seconds, Edema - 2-3+ pitting edema BLE Skin: No rashes, No breakdown Musculoskeletal: No Tenderness to Palpation of Joints or Extremities Neurological: Cranial nerves II-XII grossly intact Psych/Mental Status: Normal Affect, Appropriate, Alert and oriented to time, place, person, mood and affect Microbiology Past 72 Hours 04/18/19 08:06 Blood Culture (Wb) - Left Hand Blood Culture - Final No growth in 5 days. 04/18/19 08:00 Blood Culture (Wb) - Right Hand Blood Culture - Final No growth in 5 days. Laboratory Results 04/22/19 08:57: Diff Path Review Reviewed 04/24/19 15:00: POC Glucose 134 H 04/24/19 22:17: POC Glucose 186 H 04/25/19 06:44: Sodium 135 L, Potassium 4.6, Chloride 97 L, Carbon Dioxide 33.0 H, Anion Gap 5, BUN 60 H, Creatinine 4.20 H, Estim Creat Clear Calc 17.87, Est GFR (MDRD) Af Amer 19 L, Est GFR (MDRD) Non-Af 15 L, BUN/Creatinine Ratio 14.3, Glucose 137 H, Calcium 8.2 L 04/25/19 07:27: POC Glucose 122 H 04/25/19 07:51: PT 33.0 H, INR 3.2 04/25/19 10:41: POC Glucose 199 H Current Medications Acetaminophen (Tylenol) 650 mg PO Q6H PRN PRN PRN Reason: Pain Score 1-3/Temp > 100.7 F Last Admin: 04/22/19 21:57 Dose: 650 mg Documented by: Al Hydroxide/Mg Hydroxide (Mylanta Ii) 30 ml PO Q6H PRN PRN PRN Reason: Gastric Burning Albuterol Sulfate (Ventolin Aerosols) 2.5 mg INHALATION Q2H PRN PRN PRN Reason: SOB/Wheezing Last Admin: 04/17/19 05:35 Dose: 2.5 mg Documented by: Albuterol/Ipratropium (Duoneb) 3 ml INHALATION Q4H.RT [facility] Last Admin: 04/25/19 11:00 Dose: Not Given Documented by: Amiodarone HCl (Cordarone) 200 mg PO BID [facility] Last Admin: 04/25/19 09:46 Dose: 200 mg Documented by: Atorvastatin Calcium (Lipitor) 20 mg PO QHS [facility] Last Admin: 04/24/19 22:23 Dose: 20 mg Documented by: Glucagon () 1 mg IM .X1 PRN PRN Reason: Hypoglycemia Guaifenesin (Robitussin) 20 ml PO Q4H PRN PRN PRN Reason: COUGH Dextrose (Dextrose 10%-Water) 250 mls @ 999 mls/hr IV .Q16M PRN; Protocol PRN Reason: HYPOGLYCEMIA Insulin Glargine (Lantus (Bk)) 40 units SC BID [facility] Last Admin: 04/25/19 10:44 Dose: 40 units Documented by: Insulin Human Lispro (Humalog Kwikpen (Bkc)) 0 unit SC ACHS [facility]; Protocol Last Admin: 04/25/19 10:45 Dose: 3 units Documented by: Insulin Human Lispro (Humalog Kwikpen (Bk)) 5 unit SC TIDAC [facility] Last Admin: 04/25/19 10:45 Dose: 5 units Documented by: Levofloxacin (Levaquin Tablet) 250 mg PO Q48@0600 [facility] Last Admin: 04/25/19 05:44 Dose: 250 mg Documented by: Magnesium Hydroxide (Milk Of Magnesia) 30 ml PO DAILY PRN PRN PRN Reason: Constipation Last Admin: 04/23/19 10:03 Dose: 30 ml Documented by: Melatonin (Melatonin) 3 mg PO QHS PRN PRN PRN Reason: INSOMNIA Last Admin: 04/24/19 22:24 Dose: 3 mg Documented by: Metoprolol Succinate (Toprol Xl (Beta Rakesh)) 50 mg PO DAILY [facility] Last Admin: 04/25/19 09:45 Dose: Not Given Documented by: Nitroglycerin (Nitrostat) 0.4 mg SUBLINGUAL Q5M PRN PRN Reason: CARDIAC/CHEST PAIN Ondansetron HCl (Zofran) 4 mg IV Q8H PRN PRN PRN Reason: NAUSEA/VOMITING Oxycodone HCl (Oxyir) 5 mg PO Q4H PRN PRN PRN Reason: Pain Score 4-5/10 Last Admin: 04/24/19 22:23 Dose: 5 mg Documented by: Oxycodone HCl (Oxyir) 10 mg PO Q4H PRN PRN PRN Reason: Pain Score 6-10/10 Senna (Senokot) 2 tablet PO DAILY PRN PRN Reason: Constipation Sodium Chloride () 10 - 40 ml IV UD PRN PRN Reason: SALINE FLUSH Last Admin: 04/23/19 21:43 Dose: 10 ml Documented by: Warfarin Sodium (Coumadin (Pbkc)) 2.5 mg PO TuWe@2200 [facility] Warfarin Sodium (Coumadin (Pbkc)) 5 mg PO SuMoThFrSa@2200 [facility] Last Admin: 04/24/19 22:24 Dose: 5 mg Documented by: STROKE Vital Signs/Narrative: Vital Signs Temp Pulse Resp BP Pulse Ox 04/25/19 11:01 64 04/25/19 10:52 98.2 F 64 18 89/35 L 96 04/25/19 09:58 95 04/25/19 09:45 62 04/25/19 09:27 98.0 F 62 16 88/40 L 96 Medical Necessity - Tobacco Use Smoking Status: Former smoker Assessment/Plan All Active Problems (Last Reviewed 04/16/19 @ 11:18 by Regulo Figueroa MD) CHF (congestive heart failure) (Acute) MOUNA (acute kidney injury) (Acute) Acute respiratory failure (Resolved) Pneumonia, community acquired (Resolved) Sepsis (Resolved) 1. Acute hypoxic/hypercapnic resp failure 2/2 CAP - contineu O2 and bipap as needed / qhs. Pulm following. VQ neg for PE. Continue levaquin, aerosols. + H. flu. Complicated by volume overload/diastolic CHF. 2. MOUNA on CKDIII, - Likely needs dialysis for the foreseeable future which he has not had in the past. Neph following. renal bx was offered and declined. midodrine for pressure support during dialysis. dialysis unit placement pending. 3. Nonsustained vtach - amio, cardizem, metoprolol. Cardio following. metoprolol held this AM for hypotension. lower dose in AM. 4. hx htn, however : Hypotension with dialysis - midodrine, arun wrap legs. 5. Afib - as per #3. Coumadin. 6. Chronic diastolic CHF - evidence of volume overload. ARUN wraps added. Continue dialysis. Echo EF60%. 7. T2 DM with Super morbid obesity - dietary consult. continue lantus and SSI. not appropriate for resumption of metformin. TID insulin initiated yesterday. will continue to titrate to response. 8. LASHAWN - continue bipap qhs 9. Hx VSD/PDA - s/p prior surgical repairs. DVT ppx: coumadin DC planning: SNF placement, needs outpatient dialysis arranged. This patient was seen by David Nolasco PA-C under the supervision of Dr. Figueroa. <Regulo Figueroa - Last Filed: 04/25/19 13:14> Vitals/I&O's: Vital Signs Temp Pulse Resp BP Pulse Ox 98.2 F 64 18 89/35 L 96 04/25/19 10:52 04/25/19 11:01 04/25/19 10:52 04/25/19 10:52 04/25/19 10:52 Oxygen Flow Rate (L/min) 2 Oxygen Delivery Method Nasal Cannula Weight: 158.2 kg Body Mass Index (BMI) 53.4 Finger Stick Blood Glucose 479 Intake and Output for Last 24 Hours 04/23/19 04/24/19 04/25/19 23:59 23:59 23:59 Intake Total 760 / 760 960 / 960 740 / 740 Output Total 400 / 400 500 / 500 300 / 300 Balance 360 / 360 460 / 460 440 / 440 Microbiology Past 72 Hours 04/18/19 08:06 Blood Culture (Wb) - Left Hand Blood Culture - Final No growth in 5 days. 04/18/19 08:00 Blood Culture (Wb) - Right Hand Blood Culture - Final No growth in 5 days. Laboratory Results 04/22/19 08:57: Diff Path Review Reviewed 04/24/19 15:00: POC Glucose 134 H 04/24/19 22:17: POC Glucose 186 H 04/25/19 06:44: Sodium 135 L, Potassium 4.6, Chloride 97 L, Carbon Dioxide 33.0 H, Anion Gap 5, BUN 60 H, Creatinine 4.20 H, Estim Creat Clear Calc 17.87, Est GFR (MDRD) Af Amer 19 L, Est GFR (MDRD) Non-Af 15 L, BUN/Creatinine Ratio 14.3, Glucose 137 H, Calcium 8.2 L 04/25/19 07:27: POC Glucose 122 H 04/25/19 07:51: PT 33.0 H, INR 3.2 04/25/19 10:41: POC Glucose 199 H Current Medications Acetaminophen (Tylenol) 650 mg PO Q6H PRN PRN PRN Reason: Pain Score 1-3/Temp > 100.7 F Last Admin: 04/22/19 21:57 Dose: 650 mg Documented by: Al Hydroxide/Mg Hydroxide (Mylanta Ii) 30 ml PO Q6H PRN PRN PRN Reason: Gastric Burning Albuterol Sulfate (Ventolin Aerosols) 2.5 mg INHALATION Q2H PRN PRN PRN Reason: SOB/Wheezing Last Admin: 04/17/19 05:35 Dose: 2.5 mg Documented by: Albuterol/Ipratropium (Duoneb) 3 ml INHALATION Q4H.RT [facility] Last Admin: 04/25/19 11:00 Dose: Not Given Documented by: Amiodarone HCl (Cordarone) 200 mg PO BID [facility] Last Admin: 04/25/19 09:46 Dose: 200 mg Documented by: Atorvastatin Calcium (Lipitor) 20 mg PO QHS [facility] Last Admin: 04/24/19 22:23 Dose: 20 mg Documented by: Glucagon () 1 mg IM .X1 PRN PRN Reason: Hypoglycemia Guaifenesin (Robitussin) 20 ml PO Q4H PRN PRN PRN Reason: COUGH Dextrose (Dextrose 10%-Water) 250 mls @ 999 mls/hr IV .Q16M PRN; Protocol PRN Reason: HYPOGLYCEMIA Insulin Glargine (Lantus (Bkc)) 40 units SC BID [facility] Last Admin: 04/25/19 10:44 Dose: 40 units Documented by: Insulin Human Lispro (Humalog Kwikpen (Bkc)) 0 unit SC ACHS [facility]; Protocol Last Admin: 04/25/19 10:45 Dose: 3 units Documented by: Insulin Human Lispro (Humalog Kwikpen (Bkc)) 5 unit SC 1100,1600 [facility] Insulin Human Lispro (Humalog Kwikpen (Bkc)) 6 unit SC 0700 [facility] Levofloxacin (Levaquin Tablet) 250 mg PO Q48@0600 [facility] Last Admin: 04/25/19 05:44 Dose: 250 mg Documented by: Magnesium Hydroxide (Milk Of Magnesia) 30 ml PO DAILY PRN PRN PRN Reason: Constipation Last Admin: 04/23/19 10:03 Dose: 30 ml Documented by: Melatonin (Melatonin) 3 mg PO QHS PRN PRN PRN Reason: INSOMNIA Last Admin: 04/24/19 22:24 Dose: 3 mg Documented by: Metoprolol Succinate (Toprol Xl (Beta Rakesh)) 50 mg PO DAILY [facility] Last Admin: 04/25/19 09:45 Dose: Not Given Documented by: Nitroglycerin (Nitrostat) 0.4 mg SUBLINGUAL Q5M PRN PRN Reason: CARDIAC/CHEST PAIN Ondansetron HCl (Zofran) 4 mg IV Q8H PRN PRN PRN Reason: NAUSEA/VOMITING Oxycodone HCl (Oxyir) 5 mg PO Q4H PRN PRN PRN Reason: Pain Score 4-5/10 Last Admin: 04/24/19 22:23 Dose: 5 mg Documented by: Oxycodone HCl (Oxyir) 10 mg PO Q4H PRN PRN PRN Reason: Pain Score 6-10/10 Senna (Senokot) 2 tablet PO DAILY PRN PRN Reason: Constipation Sodium Chloride () 10 - 40 ml IV UD PRN PRN Reason: SALINE FLUSH Last Admin: 04/23/19 21:43 Dose: 10 ml Documented by: Warfarin Sodium (Coumadin (Pbkc)) 2.5 mg PO TuWe@2200 DANIEL Warfarin Sodium (Coumadin (Pbkc)) 5 mg PO SuMoThFrSa@2200 DANIEL Last Admin: 04/24/19 22:24 Dose: 5 mg Documented by: STROKE Vital Signs/Narrative: Vital Signs Temp Pulse Resp BP Pulse Ox 04/25/19 11:01 64 04/25/19 10:52 98.2 F 64 18 89/35 L 96 04/25/19 09:58 95 04/25/19 09:45 62 04/25/19 09:27 98.0 F 62 16 88/40 L 96 Assessment/Plan This patient was seen in conjunction with David Nolasco PA-C . I have independently interviewed and examined the patient and reviewed pertinent historical, laboratory, and other data. Please refer to David Nolasco PA-C note for details of this patient's presentation, findings, and recommendations. I have reviewed David Nolasco PA-C note and concur with documented findings. In brief, patient is a 79-year-old gentleman with multiple comorbidities admitted with progressive shortness of breath. Managed initially as a case of acute congestive heart failure with preserved ejection fraction. Patient hospital stay was complicated by worsening respiratory status thought to be secondary to hypercapnia from his obesity hypoventilation syndrome. His kidney function worsened resulting in placement of prior dialysis catheter with initiation of dialysis 04/25/2019; patient remains profoundly deconditioned did discuss with patient and family the day prior regarding patient being discharged to a half-way facility prior to going home. Was also seen in consultation by nephrology renal biopsy discussed with patient Physical Examination: GENERAL: Lethargic HEENT: Atraumatic; EYES; Anicteric, Normal Conjunctiva NECK; supple, normal thyroid, RESPIRATORY: Diminished to auscultation CARDIOVASCULAR: Regular S1 S2, GI: soft, normoactive bowel sounds, : No Renal angle tenderness; EXTREMITIES: Bilateral edema MUSCULOSKELETAL: no muscle waisting NEURO: Awake; no lateralizing signs. SKIN: No Rash PSYCH; Flat affect Assessment: 1. Acute hypoxic and hypercapnic respiratory failure 2. Acute on chronic congestive heart failure with preserved ejection fraction 3. Morbid obesity with BMI of 52.6 4. Essential hypertension 6. Severe pulmonary hypertension 7. Dyslipidemia 8. Congenital heart disease ~ with History of VSD repair Dacron patch repair at age 18 ; History of patent ductus arteriosus repair at age 3 9. History of paroxysmal A. fib/flutter status post ablation 10. Obstructive sleep apnea 11. Acute renal failure superimposed on chronic kidney disease stage III/IV cu rrently on dialysis 12. Nonsustained V. tach on amiodarone 13. DVT prophylaxis on Coumadin assisted Recommendations: 1. I have discussed the results of my overview and impressions with the patient 2. Options for management were reviewed Code Visit Inpatient E&M: 61276 Subs Hosp L2
[2019-04-25 17:01] LABS: Bedside Glucose 159 mg/dL (70-110)
[2019-04-25] MEDS: Atorvastatin Calcium 20 MG Tablet PO (22:02)
[2019-04-25] MEDS: oxyCODONE 5 MG Tablet 10 MG PO (22:03)
[2019-04-25] MEDS: MELATONIN 3 MG TABLET PO (22:04)
[2019-04-25 22:16] LABS: Bedside Glucose 136 mg/dL (70-110)
[2019-04-26] VITALS (12 sets, daily range): BP systolic 95–137; BP diastolic 47–68; PULSE 57–70; RESP 12–20; TEMP 36.5–36.7; O2SAT 93–97
[2019-04-26 07:42] LABS: International Normalized Ratio 3.2; Prothrombin Time (Protime)PT. 32.7 SECONDS (11.7-14.9)
[2019-04-26] MEDS: Insulin Lispro 100 UNIT/ML INSULN.PEN 6 UNIT SC ×2 (08:35→19:01)
[2019-04-26 09:12] LABS: Absolute Lymphocyte Count 0.82 X10^3/uL (0.83-4.51); Absolute Neutrophil Count 8.3 X10^3/uL (2.0-7.7); Basophil# 0.01 X10^3/uL; Basophil% 0.1 % (0-1); Eosinophil# 0.23 X10^3/uL; Eosinophils% 2.2 % (0-5); Hematocrit 36.7 % (40-54); Hemoglobin 11.1 g/dL (13.0-16.5); Lymphocyte # 0.82 X10^3/ul (4.0); Lymphocyte % 7.8 % (19-41); Mean Corp Hgb Conc 30.2 g/dL (32-36); Mean Corpuscular Hgb 26.6 pg (27.0-32.0); Monocyte# 1.08 X10^3/uL; Monocyte% 10.3 % (0-10); NRBC Flagged by Analyzer 0 % (0-5); Neutrophil # 8.28 X10^3/uL (2.7-7.7); Neutrophil % 79.2 % (47-70); Platelet Count 169 K/mm3 (150-450); RBC Distribution Width CV 15.2 % (11.6-14.6); RBC Distribution Width SD 48.9 fl (35.1-43.9); Red Blood Count 4.17 M/mm3 (4.6-6.2); White Blood Count 10.5 K/mm3 (4.4-11.0)
--- NOTE | 2019-04-26 09:15 | CASEMGMT ---
Addendum entered by Ellie Cartagena 04/26/19 11:46: SW heard back from both [facility] and [facility] and neither of them are in network with patient's insurance. SW let patient know this information. SW asked if he and his wanted a [place] facility and he said yes. SW asked if he would like SW to make a referral to both facilities in [place] to see what they say and he said he would. SW told him SW will make the referral and let him know as soon as SW hears anything from the facilities. SH[facility]N called [facility] with referral and also faxed information to them. Await return calls. Ellie CAMARGO Original Note: SHAWN spoke with patient about which facility he would like to go to. He said he would like to go to [facility]. SW told him they do not take patients on dialysis. He was not sure and was going to talk with his . SW called [facility] and [facility] inquiring if they take [facility]. Await calls back from them. SHAWN spoke with patient and he and his are not sure where to go. SHAWN told him SW has a call out to [facility] and [facility] to see if they are in network with his insurance. He asked SW to let him know what they say. Ellie CAMARGO
[2019-04-26 09:39] LABS: Anion Gap 7 (5-15); BUN 76 mg/dL (7-18); BUN/Creat Ratio 16.6 RATIO (10-20); Calcium,Total 8.5 mg/dL (8.5-10.1); Chloride 96 mmol/L (98-107); Creatinine, Serum 4.59 mg/dL (0.70-1.30); EST Glomerular Filtration Rate 14 mL/min (>60); Est Glom Filt Rate - Afr Amer 17 mL/min (>60); Estimated Creatinine Clearance 16.35 ml/min; Glucose 148 mg/dL (74-106); Potassium 4.9 mmol/L (3.5-5.1); Sodium Level 133 mmol/L (136-145)
[2019-04-26 10:10] LABS: Bedside Glucose 132 mg/dL (70-110)
--- NOTE | 2019-04-26 10:34 | PN_ITS ---
Patient Problems: Active and Suspected Problems (Last Reviewed 04/16/19 @ 11:18 by Regulo Figueroa MD) CHF (congestive heart failure) (Acute) MOUNA (acute kidney injury) (Acute) Subjective: The patient was seen and examined at the bedside this morning. Events from the last 24 hours have been reviewed. The patient is currently afebrile, hemodynamically stable and maintaining appropriate oxygen saturations on room air. He denies the presence of resting shortness of breath. Objective: The patient's most recent lab work, culture data and imaging studies have all been personally reviewed. Sputum culture was positive for Haemophilus influenza. - Physical Exam Vitals/I&O's: Vital Signs Temp Pulse Resp BP Pulse Ox 97.7 F L 57 L 20 H 95/52 L 97 04/26/19 09:45 04/26/19 09:45 04/26/19 09:45 04/26/19 09:45 04/26/19 09:45 Oxygen Flow Rate (L/min) 2 Oxygen Delivery Method Room Air Weight: 352 lb 11.834 oz Body Mass Index (BMI) 53.4 Finger Stick Blood Glucose 479 Intake and Output for Last 24 Hours 04/24/19 04/25/19 04/26/19 23:59 23:59 23:59 Intake Total 960 / 960 1110 / 1110 120 / 120 Output Total 500 / 500 525 / 525 400 / 400 Balance 460 / 460 585 / 585 -280 / -280 General: Alert, Cooperative, No apparent distress HEENT: Atraumatic, PERRLA, Normocephalic Oral: No Gingival or Mucosal Lesions/ Ulcerations Neck: Supple, No Nodes, Trachea Midline Lungs: No rhonchi, No wheeze, No rales, Diminished Cardiovascular: Regular rate, Regular Rhythm, Normal S1, Normal S2, No murmurs Abdomen: Bowel Sounds Present, Soft, Non Tender, Obese Extremities: No clubbing, No cyanosis, Edema Skin: No breakdown Musculoskeletal: No Tenderness to Palpation of Joints or Extremities, No Muscle Wasting Lymphatic: No Cervical, Supraclavicular, or Inguinal Adenopathy Neurological: Cranial nerves II-XII grossly intact, Neuro grossly intact Psych/Mental Status: Flat Affect Labs (Last 48 Hours) 04/22/19 04/24/19 04/24/19 08:57 11:54 15:00 WBC RBC Hgb Hct MCV MCH MCHC RDW Std Deviation RDW Coeff of Janiya Plt Count MPV Immature Gran % (Auto) Neut % (Auto) Lymph % (Auto) [place] % (Auto) Eos % (Auto) Baso % (Auto) Absolute Neuts (auto) Absolute Lymphs (auto) Nucleated RBC % Diff Path Review Reviewed PT INR Sodium Potassium Chloride Carbon Dioxide Anion Gap BUN Creatinine Estim Creat Clear Calc Est GFR (MDRD) Af Amer Est GFR (MDRD) Non-Af BUN/Creatinine Ratio Glucose Calcium POC Glucose 229 H 134 H 04/24/19 04/25/19 04/25/19 22:17 06:44 07:27 WBC RBC Hgb Hct MCV MCH MCHC RDW Std Deviation RDW Coeff of Janiya Plt Count MPV Immature Gran % (Auto) Neut % (Auto) Lymph % (Auto) [place] % (Auto) Eos % (Auto) Baso % (Auto) Absolute Neuts (auto) Absolute Lymphs (auto) Nucleated RBC % Diff Path Review PT INR Sodium 135 L Potassium 4.6 Chloride 97 L Carbon Dioxide 33.0 H Anion Gap 5 BUN 60 H Creatinine 4.20 H Estim Creat Clear Calc 17.87 Est GFR (MDRD) Af Amer 19 L Est GFR (MDRD) Non-Af 15 L BUN/Creatinine Ratio 14.3 Glucose 137 H Calcium 8.2 L POC Glucose 186 H 122 H 04/25/19 04/25/19 04/25/19 07:51 10:41 16:34 WBC RBC Hgb Hct MCV MCH MCHC RDW Std Deviation RDW Coeff of Janiya Plt Count MPV Immature Gran % (Auto) Neut % (Auto) Lymph % (Auto) [place] % (Auto) Eos % (Auto) Baso % (Auto) Absolute Neuts (auto) Absolute Lymphs (auto) Nucleated RBC % Diff Path Review PT 33.0 H INR 3.2 Sodium Potassium Chloride Carbon Dioxide Anion Gap BUN Creatinine Estim Creat Clear Calc Est GFR (MDRD) Af Amer Est GFR (MDRD) Non-Af BUN/Creatinine Ratio Glucose Calcium POC Glucose 199 H 159 H 04/25/19 04/26/19 04/26/19 21:54 07:10 07:10 WBC 10.5 RBC 4.17 L Hgb 11.1 L Hct 36.7 L MCV 88.0 MCH 26.6 L MCHC 30.2 L RDW Std Deviation 48.9 H RDW Coeff of Janiya 15.2 H Plt Count 169 MPV 10.0 Immature Gran % (Auto) 0.400 Neut % (Auto) 79.2 H Lymph % (Auto) 7.8 L [place] % (Auto) 10.3 H Eos % (Auto) 2.2 Baso % (Auto) 0.1 Absolute Neuts (auto) 8.3 H Absolute Lymphs (auto) 0.82 L Nucleated RBC % 0 Diff Path Review PT 32.7 H INR 3.2 Sodium Potassium Chloride Carbon Dioxide Anion Gap BUN Creatinine Estim Creat Clear Calc Est GFR (MDRD) Af Amer Est GFR (MDRD) Non-Af BUN/Creatinine Ratio Glucose Calcium POC Glucose 136 H 04/26/19 04/26/19 07:10 08:29 WBC RBC Hgb Hct MCV MCH MCHC RDW Std Deviation RDW Coeff of Janiya Plt Count MPV Immature Gran % (Auto) Neut % (Auto) Lymph % (Auto) [place] % (Auto) Eos % (Auto) Baso % (Auto) Absolute Neuts (auto) Absolute Lymphs (auto) Nucleated RBC % Diff Path Review PT INR Sodium 133 L Potassium 4.9 Chloride 96 L Carbon Dioxide 30.0 Anion Gap 7 BUN 76 H Creatinine 4.59 H Estim Creat Clear Calc 16.35 Est GFR (MDRD) Af Amer 17 L Est GFR (MDRD) Non-Af 14 L BUN/Creatinine Ratio 16.6 Glucose 148 H Calcium 8.5 POC Glucose 132 H Clinical Impression(s) from Imaging Studies Chest X-Ray 04/16/19 09:06 IMPRESSION: Congestion with features described above. Electronically Signed: Adonis Sanchez, at 9:40 EST Tel , Service support , Chest X-Ray 04/17/19 05:40 IMPRESSION: Cardiomegaly with CHF and pulmonary edema. Small right pleural effusion. No definite change from previous study. Electronically Signed: Fer Dotson MD at 7:01 EST , Service support , Chest CT 04/17/19 07:43 IMPRESSION: Patchy bilateral pulmonary infiltrates. Follow-up is recommended. Electronically Signed: Fortunato Nolan, at 14:26 EST , Service support , Lung Scan-VQ NM 04/17/19 07:51 IMPRESSION: 1. VERY LOW PROBABILITY FOR PULMONARY EMBOLUS (<10%) 99m Tc DTPA aerosol ventilation / 99m Tc MAA pulmonary perfusion imaging examination, according to PIOPED II interpretive criteria with regard given to the presence of > 2 ventilation-perfusion matches without corresponding radiographic changes. (Sotsman et al, Radiology 246: 941, 2008 Sotsman et al, J Nucl Med 49: 1741, 2008). 2. Central clumping of the aerosol may be secondary to obstructive airway mechanics and or clinical tachypnea. Electronically Signed: Neftaly Marin DO at 14:07 EST Tel , Service support , Renal Ultrasound 04/17/19 12:16 IMPRESSION: Findings consistent with nonspecific renal parenchymal disease. No evidence for renal obstruction. Left renal cyst measuring 2.5 x 2.4 x 2.5 cm. Electronically Signed: Adonis Seals MD at 22:52 EST , Service support , Chest X-Ray 04/19/19 17:55 IMPRESSION: 1. Right jugular hemodialysis catheter without pneumothorax. Right decrease in vascular congestion when compared to prior study. Electronically Signed: Robert Bradley DO at 19:22 EST Tel [phone], Service support , Chest X-Ray 04/22/19 06:10 IMPRESSION: Stable bilateral edema or infiltrates. Electronically Signed: Arnold Murrell MD at 8:26 EST , Service support , Current Medications Acetaminophen (Tylenol) 650 mg PO Q6H PRN PRN PRN Reason: Pain Score 1-3/Temp > 100.7 F Last Admin: 04/22/19 21:57 Dose: 650 mg Documented by: Al Hydroxide/Mg Hydroxide (Mylanta Ii) 30 ml PO Q6H PRN PRN PRN Reason: Gastric Burning Albuterol Sulfate (Ventolin Aerosols) 2.5 mg INHALATION Q2H PRN PRN PRN Reason: SOB/Wheezing Last Admin: 04/17/19 05:35 Dose: 2.5 mg Documented by: Albuterol/Ipratropium (Duoneb) 3 ml INHALATION Q4H.RT ON LICENSE OF [facility] Last Admin: 04/25/19 15:00 Dose: Not Given Documented by: Amiodarone HCl (Cordarone) 200 mg PO BID ON LICENSE OF [facility] Last Admin: 04/25/19 22:02 Dose: 200 mg Documented by: Atorvastatin Calcium (Lipitor) 20 mg PO QHS ON LICENSE OF [facility] Last Admin: 04/25/19 22:02 Dose: 20 mg Documented by: Glucagon () 1 mg IM .X1 PRN PRN Reason: Hypoglycemia Guaifenesin (Robitussin) 20 ml PO Q4H PRN PRN PRN Reason: COUGH Dextrose (Dextrose 10%-Water) 250 mls @ 999 mls/hr IV .Q16M PRN; Protocol PRN Reason: HYPOGLYCEMIA Insulin Glargine (Lantus (Bkc)) 40 units SC BID ON LICENSE OF [facility] Last Admin: 04/25/19 22:04 Dose: 40 units Documented by: Insulin Human Lispro (Humalog Kwikpen (Bkc)) 0 unit SC ACHS ON LICENSE OF [facility]; Protocol Last Admin: 04/26/19 08:33 Dose: Not Given Documented by: Insulin Human Lispro (Humalog Kwikpen (Bkc)) 5 unit SC 1100,1600 ON LICENSE OF [facility] Last Admin: 04/25/19 16:37 Dose: 5 u Documented by: Insulin Human Lispro (Humalog Kwikpen (Bkc)) 6 unit SC 0700 ON LICENSE OF [facility] Last Admin: 04/26/19 08:35 Dose: 6 u Documented by: Levofloxacin (Levaquin Tablet) 250 mg PO Q48@0600 ON LICENSE OF [facility] Last Admin: 04/25/19 05:44 Dose: 250 mg Documented by: Magnesium Hydroxide (Milk Of Magnesia) 30 ml PO DAILY PRN PRN PRN Reason: Constipation Last Admin: 04/23/19 10:03 Dose: 30 ml Documented by: Melatonin (Melatonin) 3 mg PO QHS PRN PRN PRN Reason: INSOMNIA Last Admin: 04/25/19 22:04 Dose: 3 mg Documented by: Metoprolol Succinate (Toprol Xl (Beta Rakesh)) 50 mg PO DAILY ON LICENSE OF [facility] Last Admin: 04/25/19 09:45 Dose: Not Given Documented by: Nitroglycerin (Nitrostat) 0.4 mg SUBLINGUAL Q5M PRN PRN Reason: CARDIAC/CHEST PAIN Ondansetron HCl (Zofran) 4 mg IV Q8H PRN PRN PRN Reason: NAUSEA/VOMITING Oxycodone HCl (Oxyir) 5 mg PO Q4H PRN PRN PRN Reason: Pain Score 4-5/10 Last Admin: 04/24/19 22:23 Dose: 5 mg Documented by: Oxycodone HCl (Oxyir) 10 mg PO Q4H PRN PRN PRN Reason: Pain Score 6-10/10 Last Admin: 04/25/19 22:03 Dose: 10 mg Documented by: Senna (Senokot) 2 tablet PO DAILY PRN PRN Reason: Constipation Sodium Chloride () 10 - 40 ml IV UD PRN PRN Reason: SALINE FLUSH Last Admin: 04/23/19 21:43 Dose: 10 ml Documented by: Warfarin Sodium (Coumadin (Pbkc)) 2.5 mg PO TuWe@0 ON LICENSE OF [facility] Last Admin: 04/25/19 22:06 Dose: 2.5 mg Documented by: Warfarin Sodium (Coumadin (Pbkc)) 5 mg PO SuMoThFrSa@2200 ON LICENSE OF [facility] Last Admin: 04/24/19 22:24 Dose: 5 mg Documented by: Medical Necessity - Tobacco Use Smoking Status: Former smoker Assessment/Plan All Active Problems (Last Reviewed 04/16/19 @ 11:18 by Regulo Figueroa MD) CHF (congestive heart failure) (Acute) MOUNA (acute kidney injury) (Acute) Acute respiratory failure (Resolved) Pneumonia, community acquired (Resolved) Sepsis (Resolved) RECOMMENDATIONS: 1. Continue volume management with hemodialysis per nephrology recommendations. 2. Continue BiPAP therapy with naps and nightly. 3. Continue antimicrobials to complete treatment course. 4. Wean supplemental oxygen and encourage incentive spirometer use. Mobilize patient as tolerated. 5. Will sign off from a pulmonary perspective. Please call with any additional questions. IMPRESSIONS: 1. Acute on chronic hypercarbic respiratory failure Unclear etiology at this time. Patient does have clinical signs and symptoms of increased volume status with recent travel. Work-up for pulmonary embolism was negative. Recommend continuing further attempts at volume optimization with hemodialysis per nephrology recommendations. Continue antimicrobials to complete treatment course, given Haemophilus influenza noted on culture. Continue BiPAP therapy with naps and nightly. Avoid sedating medications. Repeat arterial blood gas with alteration in mentation. 2. Acute on chronic kidney disease stage III/hyperkalemia Etiology unclear, but may be secondary to underlying diabetes. Nephrology is cu rrently following. Continue hemodialysis as tolerated. 3. Chronic A. fib/chronic diastolic congestive heart failure/history of VSD repair/pulmonary hypertension Patient anticoagulated and doing well. No signs or symptoms of bleeding at this time. Continue medical management per cardiology recommendations. 4. Hypertension/type 2 diabetes mellitus/hyperlipidemia/morbid obesity/noncompliant LASHAWN Complicates care, management, recovery and prognosis. Continue baseline outpatient medications and BiPAP therapy as ordered. This note was generated with [employer]uther dictation software. It may contain incorrect words, spelling, and punctuation that were not noted in checking the note before signing. Code Visit Inpatient E&M: 02307 Subs Hosp L2
--- NOTE | 2019-04-26 11:10 | PN_ITS ---
Patient Problems: Active and Suspected Problems (Last Reviewed 04/16/19 @ 11:18 by Regulo Figueroa MD) CHF (congestive heart failure) (Acute) MOUNA (acute kidney injury) (Acute) Subjective: no sob/cp - Physical Exam Vitals/I&O's: Vital Signs Temp Pulse Resp BP Pulse Ox 97.7 F L 57 L 20 H 95/52 L 97 04/26/19 09:45 04/26/19 09:45 04/26/19 09:45 04/26/19 09:45 04/26/19 09:45 Oxygen Flow Rate (L/min) 2 Oxygen Delivery Method Room Air Weight: 160 kg Body Mass Index (BMI) 53.4 Finger Stick Blood Glucose 479 Intake and Output for Last 24 Hours 04/24/19 04/25/19 04/26/19 23:59 23:59 23:59 Intake Total 960 / 960 1110 / 1110 120 / 120 Output Total 500 / 500 525 / 525 400 / 400 Balance 460 / 460 585 / 585 -280 / -280 General: Alert, Oriented x3, Cooperative HEENT: Atraumatic, PERRLA, EOMI, Normocephalic Neck: Supple, No JVD, Negative Carotid Bruits Lungs: Clear to auscultation, Normal air movement Cardiovascular: Regular rate, No murmurs Abdomen: Bowel Sounds Present, Soft, Non Tender, Obese - ij tdc Extremities: No edema, Capillary Refill Less than 3 Seconds Skin: No rashes, No breakdown Musculoskeletal: No Tenderness to Palpation of Joints or Extremities Neurological: Cranial nerves II-XII grossly intact Psych/Mental Status: Normal Affect, Appropriate Microbiology Past 72 Hours 04/18/19 08:06 Blood Culture (Wb) - Left Hand Blood Culture - Final No growth in 5 days. 04/18/19 08:00 Blood Culture (Wb) - Right Hand Blood Culture - Final No growth in 5 days. Laboratory Results 04/25/19 16:34: POC Glucose 159 H 04/25/19 21:54: POC Glucose 136 H 04/26/19 07:10: PT 32.7 H, INR 3.2 04/26/19 07:10: WBC 10.5, RBC 4.17 L, Hgb 11.1 L, Hct 36.7 L, MCV 88.0, MCH 26.6 L, MCHC 30.2 L, RDW Std Deviation 48.9 H, RDW Coeff of Janiya 15.2 H, Plt Count 169, MPV 10.0, Immature Gran % (Auto) 0.400, Neut % (Auto) 79.2 H, Lymph % (Auto) 7.8 L, [place] % (Auto) 10.3 H, Eos % (Auto) 2.2, Baso % (Auto) 0.1, Absolute Neuts (auto) 8.3 H, Absolute Lymphs (auto) 0.82 L, Nucleated RBC % 0 04/26/19 07:10: Sodium 133 L, Potassium 4.9, Chloride 96 L, Carbon Dioxide 30.0, Anion Gap 7, BUN 76 H, Creatinine 4.59 H, Estim Creat Clear Calc 16.35, Est GFR (MDRD) Af Amer 17 L, Est GFR (MDRD) Non-Af 14 L, BUN/Creatinine Ratio 16.6, Glucose 148 H, Calcium 8.5 04/26/19 08:29: POC Glucose 132 H Current Medications Acetaminophen (Tylenol) 650 mg PO Q6H PRN PRN PRN Reason: Pain Score 1-3/Temp > 100.7 F Last Admin: 04/22/19 21:57 Dose: 650 mg Documented by: Al Hydroxide/Mg Hydroxide (Mylanta Ii) 30 ml PO Q6H PRN PRN PRN Reason: Gastric Burning Albuterol Sulfate (Ventolin Aerosols) 2.5 mg INHALATION Q2H PRN PRN PRN Reason: SOB/Wheezing Last Admin: 04/17/19 05:35 Dose: 2.5 mg Documented by: Albuterol/Ipratropium (Duoneb) 3 ml INHALATION Q4H.RT [facility] Last Admin: 04/25/19 15:00 Dose: Not Given Documented by: Amiodarone HCl (Cordarone) 200 mg PO BID [facility] Last Admin: 04/25/19 22:02 Dose: 200 mg Documented by: Atorvastatin Calcium (Lipitor) 20 mg PO QHS [facility] Last Admin: 04/25/19 22:02 Dose: 20 mg Documented by: Glucagon () 1 mg IM .X1 PRN PRN Reason: Hypoglycemia Guaifenesin (Robitussin) 20 ml PO Q4H PRN PRN PRN Reason: COUGH Dextrose (Dextrose 10%-Water) 250 mls @ 999 mls/hr IV .Q16M PRN; Protocol PRN Reason: HYPOGLYCEMIA Insulin Glargine (Lantus (Bk)) 40 units SC BID [facility] Last Admin: 04/25/19 22:04 Dose: 40 units Documented by: Insulin Human Lispro (Humalog Kwikpen (Bkc)) 0 unit SC ACHS [facility]; Protocol Last Admin: 04/26/19 08:33 Dose: Not Given Documented by: Insulin Human Lispro (Humalog Kwikpen (Bk)) 5 unit SC 1100,1600 [facility] Last Admin: 04/25/19 16:37 Dose: 5 u Documented by: Insulin Human Lispro (Humalog Kwikpen ([facility])) 6 unit SC 0700 [facility] Last Admin: 04/26/19 08:35 Dose: 6 u Documented by: Levofloxacin (Levaquin Tablet) 250 mg PO Q48@0600 [facility] Last Admin: 04/25/19 05:44 Dose: 250 mg Documented by: Magnesium Hydroxide (Milk Of Magnesia) 30 ml PO DAILY PRN PRN PRN Reason: Constipation Last Admin: 04/23/19 10:03 Dose: 30 ml Documented by: Melatonin (Melatonin) 3 mg PO QHS PRN PRN PRN Reason: INSOMNIA Last Admin: 04/25/19 22:04 Dose: 3 mg Documented by: Metoprolol Succinate (Toprol Xl (Beta Rakesh)) 50 mg PO DAILY [facility] Last Admin: 04/25/19 09:45 Dose: Not Given Documented by: Nitroglycerin (Nitrostat) 0.4 mg SUBLINGUAL Q5M PRN PRN Reason: CARDIAC/CHEST PAIN Ondansetron HCl (Zofran) 4 mg IV Q8H PRN PRN PRN Reason: NAUSEA/VOMITING Oxycodone HCl (Oxyir) 5 mg PO Q4H PRN PRN PRN Reason: Pain Score 4-5/10 Last Admin: 04/24/19 22:23 Dose: 5 mg Documented by: Oxycodone HCl (Oxyir) 10 mg PO Q4H PRN PRN PRN Reason: Pain Score 6-10/10 Last Admin: 04/25/19 22:03 Dose: 10 mg Documented by: Senna (Senokot) 2 tablet PO DAILY PRN PRN Reason: Constipation Sodium Chloride () 10 - 40 ml IV UD PRN PRN Reason: SALINE FLUSH Last Admin: 04/23/19 21:43 Dose: 10 ml Documented by: Warfarin Sodium (Coumadin (Pbkc)) 2.5 mg PO TuWe@2200 [facility] Last Admin: 04/25/19 22:06 Dose: 2.5 mg Documented by: Warfarin Sodium (Coumadin (Pbkc)) 5 mg PO SuMoThFrSa@2200 [facility] Last Admin: 04/24/19 22:24 Dose: 5 mg Documented by: Medical Necessity - Tobacco Use Smoking Status: Former smoker Assessment/Plan All Active Problems (Last Reviewed 04/16/19 @ 11:18 by Regulo Figueroa MD) CHF (congestive heart failure) (Acute) MOUNA (acute kidney injury) (Acute) Acute respiratory failure (Resolved) Pneumonia, community acquired (Resolved) Sepsis (Resolved) MOUNA on CKD stage III Hyponatremia hypervolemic CHF Afib DM I discussed with the patient at length the major risks and benefits of renal biopsy but he is not interested in renal biopsy at this time. another dialysis treatment today with UF as tolerated. Case management working on dialysis unit placement avoid nephrotoxins d/w with patient and HD Rn
[2019-04-26 11:40] LABS: Bedside Glucose 177 mg/dL (70-110)
[2019-04-26] MEDS: Insulin Lispro 100 UNIT/ML INSULN.PEN SC ×3 (12:05→22:12)
--- NOTE | 2019-04-26 13:15 | PCM.PN.HOSP ---
<David Nolasco - Last Filed: 04/26/19 13:15> Patient Problems: Active and Suspected Problems (Last Reviewed 04/16/19 @ 11:18 by Regulo Figueroa MD) CHF (congestive heart failure) (Acute) MOUNA (acute kidney injury) (Acute) Reason for Visit: SOB Subjective: Ongoing fatigue, generalized weakness. No fever/chills. Occasional productive cough. SOB improved. LE edema ongoing, did use ARUN wraps yesterday. PO intake tolerated, no nausea/vomting. Vitals/I&O's: Vital Signs Temp Pulse Resp BP Pulse Ox 97.7 F L 57 L 20 H 95/52 L 97 04/26/19 09:45 04/26/19 09:45 04/26/19 09:45 04/26/19 09:45 04/26/19 09:45 Oxygen Flow Rate (L/min) 2 Oxygen Delivery Method Room Air Weight: 352 lb 11.834 oz Body Mass Index (BMI) 53.4 Finger Stick Blood Glucose 479 Intake and Output for Last 24 Hours 04/24/19 04/25/19 04/26/19 23:59 23:59 23:59 Intake Total 960 / 960 1110 / 1110 360 / 360 Output Total 500 / 500 525 / 525 400 / 400 Balance 460 / 460 585 / 585 -40 / -40 General: Alert, Oriented x3, Cooperative HEENT: Atraumatic, PERRLA, EOMI, Normocephalic Neck: Supple, No JVD, Negative Carotid Bruits Lungs: Clear to auscultation, Diminished Cardiovascular: Regular rate, No murmurs Abdomen: Bowel Sounds Present, Soft, Non Tender, Obese Extremities: Capillary Refill Less than 3 Seconds, Edema - 2-3+ pitting edema BLE Skin: No rashes, No breakdown Musculoskeletal: No Tenderness to Palpation of Joints or Extremities Neurological: Cranial nerves II-XII grossly intact Psych/Mental Status: Normal Affect, Appropriate, Alert and oriented to time, place, person, mood and affect Microbiology Past 72 Hours 04/18/19 08:06 Blood Culture (Wb) - Left Hand Blood Culture - Final No growth in 5 days. 04/18/19 08:00 Blood Culture (Wb) - Right Hand Blood Culture - Final No growth in 5 days. Laboratory Results 04/25/19 16:34: POC Glucose 159 H 04/25/19 21:54: POC Glucose 136 H 04/26/19 07:10: PT 32.7 H, INR 3.2 04/26/19 07:10: WBC 10.5, RBC 4.17 L, Hgb 11.1 L, Hct 36.7 L, MCV 88.0, MCH 26.6 L, MCHC 30.2 L, RDW Std Deviation 48.9 H, RDW Coeff of Janiya 15.2 H, Plt Count 169, MPV 10.0, Immature Gran % (Auto) 0.400, Neut % (Auto) 79.2 H, Lymph % (Auto) 7.8 L, Day % (Auto) 10.3 H, Eos % (Auto) 2.2, Baso % (Auto) 0.1, Absolute Neuts (auto) 8.3 H, Absolute Lymphs (auto) 0.82 L, Nucleated RBC % 0 04/26/19 07:10: Sodium 133 L, Potassium 4.9, Chloride 96 L, Carbon Dioxide 30.0, Anion Gap 7, BUN 76 H, Creatinine 4.59 H, Estim Creat Clear Calc 16.35, Est GFR (MDRD) Af Amer 17 L, Est GFR (MDRD) Non-Af 14 L, BUN/Creatinine Ratio 16.6, Glucose 148 H, Calcium 8.5 04/26/19 08:29: POC Glucose 132 H 04/26/19 11:19: POC Glucose 177 H Current Medications Acetaminophen (Tylenol) 650 mg PO Q6H PRN PRN PRN Reason: Pain Score 1-3/Temp > 100.7 F Last Admin: 04/22/19 21:57 Dose: 650 mg Documented by: Al Hydroxide/Mg Hydroxide (Mylanta Ii) 30 ml PO Q6H PRN PRN PRN Reason: Gastric Burning Albuterol Sulfate (Ventolin Aerosols) 2.5 mg INHALATION Q2H PRN PRN PRN Reason: SOB/Wheezing Last Admin: 04/17/19 05:35 Dose: 2.5 mg Documented by: Albuterol/Ipratropium (Duoneb) 3 ml INHALATION Q4H.RT DANIEL Last Admin: 04/26/19 11:00 Dose: Not Given Documented by: Amiodarone HCl (Cordarone) 200 mg PO BID [facility] Last Admin: 04/25/19 22:02 Dose: 200 mg Documented by: Atorvastatin Calcium (Lipitor) 20 mg PO QHS [facility] Last Admin: 04/25/19 22:02 Dose: 20 mg Documented by: Glucagon () 1 mg IM .X1 PRN PRN Reason: Hypoglycemia Guaifenesin (Robitussin) 20 ml PO Q4H PRN PRN PRN Reason: COUGH Dextrose (Dextrose 10%-Water) 250 mls @ 999 mls/hr IV .Q16M PRN; Protocol PRN Reason: HYPOGLYCEMIA Insulin Glargine (Lantus (Bkc)) 40 units SC BID [facility] Last Admin: 04/26/19 12:05 Dose: 40 units Documented by: Insulin Human Lispro (Humalog Kwikpen (Bk)) 0 unit SC ACHS [facility]; Protocol Last Admin: 04/26/19 12:06 Dose: 5 units Documented by: Insulin Human Lispro (Humalog Kwikpen (Bkc)) 5 unit SC 1100,1600 [facility] Last Admin: 04/25/19 16:37 Dose: 5 u Documented by: Insulin Human Lispro (Humalog Kwikpen (Bkc)) 6 unit SC 0700 [facility] Last Admin: 04/26/19 08:35 Dose: 6 u Documented by: Levofloxacin (Levaquin Tablet) 250 mg PO Q48@0600 [facility] Last Admin: 04/25/19 05:44 Dose: 250 mg Documented by: Magnesium Hydroxide (Milk Of Magnesia) 30 ml PO DAILY PRN PRN PRN Reason: Constipation Last Admin: 04/23/19 10:03 Dose: 30 ml Documented by: Melatonin (Melatonin) 3 mg PO QHS PRN PRN PRN Reason: INSOMNIA Last Admin: 04/25/19 22:04 Dose: 3 mg Documented by: Metoprolol Succinate (Toprol Xl (Beta Rakesh)) 50 mg PO DAILY [facility] Last Admin: 04/25/19 09:45 Dose: Not Given Documented by: Nitroglycerin (Nitrostat) 0.4 mg SUBLINGUAL Q5M PRN PRN Reason: CARDIAC/CHEST PAIN Ondansetron HCl (Zofran) 4 mg IV Q8H PRN PRN PRN Reason: NAUSEA/VOMITING Oxycodone HCl (Oxyir) 5 mg PO Q4H PRN PRN PRN Reason: Pain Score 4-5/10 Last Admin: 04/24/19 22:23 Dose: 5 mg Documented by: Oxycodone HCl (Oxyir) 10 mg PO Q4H PRN PRN PRN Reason: Pain Score 6-10/10 Last Admin: 04/25/19 22:03 Dose: 10 mg Documented by: Senna (Senokot) 2 tablet PO DAILY PRN PRN Reason: Constipation Sodium Chloride () 10 - 40 ml IV UD PRN PRN Reason: SALINE FLUSH Last Admin: 04/23/19 21:43 Dose: 10 ml Documented by: Warfarin Sodium (Coumadin (Pbkc)) 2.5 mg PO TuWe@0 [facility] Last Admin: 04/25/19 22:06 Dose: 2.5 mg Documented by: Warfarin Sodium (Coumadin (Pbkc)) 5 mg PO SuMoThFrSa@2200 DANI[facility] Last Admin: 04/24/19 22:24 Dose: 5 mg Documented by: STROKE Vital Signs/Narrative: Vital Signs Temp Pulse Resp BP Pulse Ox 04/26/19 09:45 97.7 F L 57 L 20 H 95/52 L 97 Medical Necessity - Tobacco Use Smoking Status: Former smoker Assessment/Plan All Active Problems (Last Reviewed 04/16/19 @ 11:18 by Regulo Figueroa MD) CHF (congestive heart failure) (Acute) MOUNA (acute kidney injury) (Acute) Acute respiratory failure (Resolved) Pneumonia, community acquired (Resolved) Sepsis (Resolved) 1. Acute hypoxic/hypercapnic resp failure 2/2 CAP - contineu O2 and bipap as needed / qhs. Pulm following. VQ neg for PE. Continue levaquin, aerosols. + H. flu. Complicated by volume overload/diastolic CHF. Levaquin day 6. DC after tomorrow. Breathing has significantly improved. 2. MOUNA on CKDIII, - Likely needs dialysis for the foreseeable future which he has not had in the past. Neph following. renal bx was offered and declined. midodrine for pressure support during dialysis. dialysis unit placement pending. 3. Nonsustained vtach - amio, cardizem, metoprolol. Cardio following. metoprolol held this AM for hypotension. lower dose in AM. 4. hx htn, however : Hypotension with dialysis - midodrine, arun wrap legs. Resting BP is borderline low. 5. Afib - as per #3. Coumadin. 6. Chronic diastolic CHF - evidence of volume overload. ARUN wraps added. Continue dialysis. Echo EF60%. 7. T2 DM with Super morbid obesity - dietary consult. continue lantus and SSI. not appropriate for resumption of metformin. TID insulin adjustments again made. 8. LASHAWN - continue bipap qhs 9. Hx VSD/PDA - s/p prior surgical repairs. DVT ppx: coumadin DC planning: SNF placement, needs outpatient dialysis arranged. This patient was seen by David Nolasco PA-C under the supervision of Dr. Figueroa. <Regulo Figueroa - Last Filed: 04/26/19 14:03> Vitals/I&O's: Vital Signs Temp Pulse Resp BP Pulse Ox 97.7 F L 57 L 20 H 95/52 L 97 04/26/19 09:45 04/26/19 09:45 04/26/19 09:45 04/26/19 09:45 04/26/19 09:45 Oxygen Flow Rate (L/min) 2 Oxygen Delivery Method Nasal Cannula Weight: 160 kg Body Mass Index (BMI) 53.4 Finger Stick Blood Glucose 479 Intake and Output for Last 24 Hours 04/24/19 04/25/19 04/26/19 23:59 23:59 23:59 Intake Total 960 / 960 1110 / 1110 360 / 360 Output Total 500 / 500 525 / 525 400 / 400 Balance 460 / 460 585 / 585 -40 / -40 Microbiology Past 72 Hours 04/18/19 08:06 Blood Culture (Wb) - Left Hand Blood Culture - Final No growth in 5 days. 04/18/19 08:00 Blood Culture (Wb) - Right Hand Blood Culture - Final No growth in 5 days. Laboratory Results 04/25/19 16:34: POC Glucose 159 H 04/25/19 21:54: POC Glucose 136 H 04/26/19 07:10: PT 32.7 H, INR 3.2 04/26/19 07:10: WBC 10.5, RBC 4.17 L, Hgb 11.1 L, Hct 36.7 L, MCV 88.0, MCH 26.6 L, MCHC 30.2 L, RDW Std Deviation 48.9 H, RDW Coeff of Janiya 15.2 H, Plt Count 169, MPV 10.0, Immature Gran % (Auto) 0.400, Neut % (Auto) 79.2 H, Lymph % (Auto) 7.8 L, Day % (Auto) 10.3 H, Eos % (Auto) 2.2, Baso % (Auto) 0.1, Absolute Neuts (auto) 8.3 H, Absolute Lymphs (auto) 0.82 L, Nucleated RBC % 0 04/26/19 07:10: Sodium 133 L, Potassium 4.9, Chloride 96 L, Carbon Dioxide 30.0, Anion Gap 7, BUN 76 H, Creatinine 4.59 H, Estim Creat Clear Calc 16.35, Est GFR (MDRD) Af Amer 17 L, Est GFR (MDRD) Non-Af 14 L, BUN/Creatinine Ratio 16.6, Glucose 148 H, Calcium 8.5 04/26/19 08:29: POC Glucose 132 H 04/26/19 11:19: POC Glucose 177 H Current Medications Acetaminophen (Tylenol) 650 mg PO Q6H PRN PRN PRN Reason: Pain Score 1-3/Temp > 100.7 F Last Admin: 04/22/19 21:57 Dose: 650 mg Documented by: Al Hydroxide/Mg Hydroxide (Mylanta Ii) 30 ml PO Q6H PRN PRN PRN Reason: Gastric Burning Albuterol Sulfate (Ventolin Aerosols) 2.5 mg INHALATION Q2H PRN PRN PRN Reason: SOB/Wheezing Last Admin: 04/17/19 05:35 Dose: 2.5 mg Documented by: Albuterol/Ipratropium (Duoneb) 3 ml INHALATION Q4H.RT [facility] Last Admin: 04/26/19 11:00 Dose: Not Given Documented by: Amiodarone HCl (Cordarone) 200 mg PO BID [facility] Last Admin: 04/25/19 22:02 Dose: 200 mg Documented by: Atorvastatin Calcium (Lipitor) 20 mg PO QHS [facility] Last Admin: 04/25/19 22:02 Dose: 20 mg Documented by: Glucagon () 1 mg IM .X1 PRN PRN Reason: Hypoglycemia Guaifenesin (Robitussin) 20 ml PO Q4H PRN PRN PRN Reason: COUGH Dextrose (Dextrose 10%-Water) 250 mls @ 999 mls/hr IV .Q16M PRN; Protocol PRN Reason: HYPOGLYCEMIA Insulin Glargine (Lantus (Bkc)) 40 units SC BID [facility] Last Admin: 04/26/19 12:05 Dose: 40 units Documented by: Insulin Human Lispro (Humalog Kwikpen (Bkc)) 0 unit SC ACHS [facility]; Protocol Last Admin: 04/26/19 12:05 Dose: 3 units Documented by: Insulin Human Lispro (Humalog Kwikpen (Bkc)) 7 unit SC [facility] Insulin Human Lispro (Humalog Kwikpen (Bkc)) 5 unit SC LUNCH DANIEL Insulin Human Lispro (Humalog Kwikpen (Bkc)) 6 unit SC DINNER [facility] Levofloxacin (Levaquin Tablet) 250 mg PO Q48@0600 [facility] Last Admin: 04/25/19 05:44 Dose: 250 mg Documented by: Magnesium Hydroxide (Milk Of Magnesia) 30 ml PO DAILY PRN PRN PRN Reason: Constipation Last Admin: 04/23/19 10:03 Dose: 30 ml Documented by: Melatonin (Melatonin) 3 mg PO QHS PRN PRN PRN Reason: INSOMNIA Last Admin: 04/25/19 22:04 Dose: 3 mg Documented by: Metoprolol Succinate (Toprol Xl (Beta Rakesh)) 50 mg PO DAILY [facility] Last Admin: 04/25/19 09:45 Dose: Not Given Documented by: Nitroglycerin (Nitrostat) 0.4 mg SUBLINGUAL Q5M PRN PRN Reason: CARDIAC/CHEST PAIN Ondansetron HCl (Zofran) 4 mg IV Q8H PRN PRN PRN Reason: NAUSEA/VOMITING Oxycodone HCl (Oxyir) 5 mg PO Q4H PRN PRN PRN Reason: Pain Score 4-5/10 Last Admin: 04/24/19 22:23 Dose: 5 mg Documented by: Oxycodone HCl (Oxyir) 10 mg PO Q4H PRN PRN PRN Reason: Pain Score 6-10/10 Last Admin: 04/26/19 13:31 Dose: 10 mg Documented by: Senna (Senokot) 2 tablet PO DAILY PRN PRN Reason: Constipation Sodium Chloride () 10 - 40 ml IV UD PRN PRN Reason: SALINE FLUSH Last Admin: 01/12/20 21:43 Dose: 10 ml Documented by: Warfarin Sodium (Coumadin (Pbkc)) 2.5 mg PO TuWe@2200 [facility] Last Admin: 04/25/19 22:06 Dose: 2.5 mg Documented by: Warfarin Sodium (Coumadin (Pbkc)) 5 mg PO SuMoThFrSa@2200 [facility] Last Admin: 04/24/19 22:24 Dose: 5 mg Documented by: Assessment/Plan This patient was seen in conjunction with David Nolasco PA-C . I have independently interviewed and examined the patient and reviewed pertinent historical, laboratory, and other data. Please refer to David Nolasco PA-C note for details of this patient's presentation, findings, and recommendations. I have reviewed David Nolasco PA-C note and concur with documented findings. In brief, patient is a 79-year-old gentleman with multiple comorbidities admitted with progressive shortness of breath. Managed initially as a case of acute congestive heart failure with preserved ejection fraction. Patient hospital stay was complicated by worsening respiratory status thought to be secondary to hypercapnia from his obesity hypoventilation syndrome. His kidney function worsened resulting in placement of prior dialysis catheter with initiation of dialysis 04/25/2019; patient remains profoundly deconditioned did discuss with patient and family the day prior regarding patient being discharged to a care home facility prior to going home. Was also seen in consultation by nephrology renal biopsy discussed with patient 04/26/2019; patient seen overall clinical condition continues to improve. Currently awaiting insurance precertification prior to patient being transferred to care home facility Physical Examination: GENERAL: Lethargic HEENT: Atraumatic; EYES; Anicteric, Normal Conjunctiva NECK; supple, normal thyroid, RESPIRATORY: Diminished to auscultation CARDIOVASCULAR: Regular S1 S2, GI: soft, normoactive bowel sounds, : No Renal angle tenderness; EXTREMITIES: Bilateral edema MUSCULOSKELETAL: no muscle waisting NEURO: Awake; no lateralizing signs. SKIN: No Rash PSYCH; Flat affect Assessment: 1. Acute hypoxic and hypercapnic respiratory failure 2. Acute on chronic congestive heart failure with preserved ejection fraction 3. Morbid obesity with BMI of 52.6 4. Essential hypertension 6. Severe pulmonary hypertension 7. Dyslipidemia 8. Congenital heart disease ~ with History of VSD repair Dacron patch repair at age 18 ; History of patent ductus arteriosus repair at age 3 9. History of paroxysmal A. fib/flutter status post ablation 10. Obstructive sleep apnea 11. 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 Nonsustained V. tach on amiodarone 13. DVT prophylaxis on Coumadin assisted Recommendations: 1. I have discussed the results of my overview and impressions with the patient 2. Options for management were reviewed Code Visit Inpatient E&M: 81089 Subs Hosp L2
[2019-04-26] MEDS: oxyCODONE 5 MG Tablet 10 MG PO (13:31)
[2019-04-26] MEDS: Midodrine HCl 5 MG Tablet 10 MG PO (14:11)
--- NOTE | 2019-04-26 15:34 | CASEMGMT ---
Received a call from [facility] and they are working on transportation to dialysis. SHAWN received a call from [facility] and they can accept patient. They would be able to transport patient on and , he would have to pay $21 each time. They cannot transport on Saturdays so he would be responsible for the cost if they would be able to find someone. SHAWN spoke with patient and his family letting them know this information. After much discussion patient decided to go with [facility]. He said his can transport him on Saturdays. The family in the room said they could help out as well. SHAWN called Farida at [facility] and let her know. SHAWN told her SW has to get permission from insurance to proceed with mcc. SHAWN faxed this information to [facility] and when SHAWN hears back SHAWN will notify [facility] so they can start the pre-cert. SHAWN also notified Sami. Plan: [facility] pending insurance approval. Ellie CISNEROS MSW
[2019-04-26 17:06] LABS: Bedside Glucose 136 mg/dL (70-110)
--- NOTE | 2019-04-26 19:19 | DIALYSIS ---
Pt tolerated 4hr HD tx well. Net UF -3000ml. See flow record for tx data.
[2019-04-26] MEDS: Atorvastatin Calcium 20 MG Tablet PO (22:12)
[2019-04-26] MEDS: Amiodarone 200 MG Tablet PO (22:12)
[2019-04-26 22:21] LABS: Bedside Glucose 170 mg/dL (70-110)
[2019-04-27] VITALS (11 sets, daily range): BP systolic 107–123; BP diastolic 41–73; PULSE 62–92; RESP 16–18; TEMP 36.6–37.1; O2SAT 93–98
[2019-04-27] MEDS: levoFLOXacin 250 MG Tablet PO (05:30)
[2019-04-27] MEDS: 0.9% Saline Lock 10 ML Syringe IV ×2 (06:13→06:14)
[2019-04-27 07:04] LABS: Anion Gap 8 (5-15); BUN 42 mg/dL (7-18); BUN/Creat Ratio 15.1 RATIO (10-20); Calcium,Total 8.4 mg/dL (8.5-10.1); Chloride 96 mmol/L (98-107); Creatinine, Serum 2.79 mg/dL (0.70-1.30); EST Glomerular Filtration Rate 25 mL/min (>60); Est Glom Filt Rate - Afr Amer 30 mL/min (>60); Glucose 98 mg/dL (74-106); Potassium 4.3 mmol/L (3.5-5.1); Sodium Level 133 mmol/L (136-145)
[2019-04-27] MEDS: Insulin Lispro 100 UNIT/ML INSULN.PEN 7 UNIT SC (08:21)
[2019-04-27] MEDS: Amiodarone 200 MG Tablet PO ×2 (08:30→21:44)
[2019-04-27] MEDS: Metoprolol(XL)Succ 50 MG Tablet PO (08:31)
--- NOTE | 2019-04-27 11:04 | CASEMGMT ---
SW called [facility] and left a message inquiring about patient's request for mcc. SHAWN requested a return call. Ellie CISNEROS MSW
[2019-04-27 11:11] LABS: Bedside Glucose 102 mg/dL (70-110)
--- NOTE | 2019-04-27 11:35 | CASEMGMT ---
ROBERTO CM Note: Call to Bi @ [facility] admissions x [phone]. Financial approval was received. Anticipated start of first outpt dialysis is Wednesday, April 29, 2019. DC Plan: [facility] and outpt dialysis @ [facility]. Chrissie RAGSDALEN RN ACM
[2019-04-27 11:40] LABS: Bedside Glucose 144 mg/dL (70-110)
--- NOTE | 2019-04-27 11:44 | CASEMGMT ---
SW spoke with patient's this am and explained everything with her. SW told her SW will let her know as soon as SW hears anything. Ellie CISNEROS MSW
[2019-04-27] MEDS: Insulin Lispro 100 UNIT/ML INSULN.PEN SC ×2 (12:19→21:47)
--- NOTE | 2019-04-27 13:11 | CASEMGMT ---
SHAWN called [employer] and left another message requesting return call so pre-cert can be started. Ellie CISNEROS MSW
--- NOTE | 2019-04-27 13:27 | PCM.PROGNOTE ---
<Martha Torres - Last Filed: 04/27/19 13:38> Patient Problems: Active and Suspected Problems (Last Reviewed 04/16/19 @ 11:18 by Regulo Figueroa MD) CHF (congestive heart failure) (Acute) MOUNA (acute kidney injury) (Acute) Subjective: Patient seen and examined. No acute events overnight. Denies current complaints. Awaiting pre-CERT to SNF. - Physical Exam Vitals/I&O's: Vital Signs Temp Pulse Resp BP Pulse Ox 98.0 F 68 16 123/50 H 97 04/27/19 08:28 04/27/19 08:31 04/27/19 08:28 04/27/19 08:31 04/27/19 08:28 Oxygen Flow Rate (L/min) 2 Oxygen Delivery Method Nasal Cannula Weight: 345 lb 7.43 oz Body Mass Index (BMI) 53.4 Finger Stick Blood Glucose 479 Intake and Output for Last 24 Hours 04/25/19 04/26/19 04/27/19 23:59 23:59 23:59 Intake Total 1110 / 1110 600 / 840 600 / 600 Output Total 525 / 525 3600 / 3600 700 / 700 Balance 585 / 585 -3000 / -2760 -100 / -100 General: Alert, Oriented x3, Cooperative HEENT: Atraumatic, PERRLA, EOMI, Normocephalic Neck: Supple, No JVD, Negative Carotid Bruits Lungs: Clear to auscultation, Diminished Cardiovascular: Regular rate, Regular Rhythm, Normal S1, Normal S2, No murmurs Abdomen: Bowel Sounds Present, Soft, Non Tender, Non-Distended, Obese Extremities: No clubbing, No cyanosis, Edema - +2 bilateral lower extremities Skin: No rashes, No breakdown, - - Chronic skin changes bilateral lower extremities Musculoskeletal: No Tenderness to Palpation of Joints or Extremities Neurological: Cranial nerves II-XII grossly intact, Neuro grossly intact Psych/Mental Status: Normal Affect, Appropriate Laboratory Results 04/26/19 16:57: POC Glucose 136 H 04/26/19 22:10: POC Glucose 170 H 04/27/19 05:53: Sodium 133 L, Potassium 4.3, Chloride 96 L, Carbon Dioxide 29.0, Anion Gap 8, BUN 42 H, Creatinine 2.79 H, Estim Creat Clear Calc 26.90, Est GFR (MDRD) Af Amer 30 L, Est GFR (MDRD) Non-Af 25 L, BUN/Creatinine Ratio 15.1, Glucose 98, Calcium 8.4 L 04/27/19 08:16: POC Glucose 102 04/27/19 11:38: POC Glucose 144 H Current Medications Acetaminophen (Tylenol) 650 mg PO Q6H PRN PRN PRN Reason: Pain Score 1-3/Temp > 100.7 F Last Admin: 04/22/19 21:57 Dose: 650 mg Documented by: Al Hydroxide/Mg Hydroxide (Mylanta Ii) 30 ml PO Q6H PRN PRN PRN Reason: Gastric Burning Albuterol/Ipratropium (Duoneb) 3 ml INHALATION Q6H PRN PRN PRN Reason: WHEEZING Amiodarone HCl (Cordarone) 200 mg PO BID [facility] Last Admin: 04/27/19 08:30 Dose: 200 mg Documented by: Atorvastatin Calcium (Lipitor) 20 mg PO QHS [facility] Last Admin: 04/26/19 22:12 Dose: 20 mg Documented by: Glucagon () 1 mg IM .X1 PRN PRN Reason: Hypoglycemia Guaifenesin (Robitussin) 20 ml PO Q4H PRN PRN PRN Reason: COUGH Dextrose (Dextrose 10%-Water) 250 mls @ 999 mls/hr IV .Q16M PRN; Protocol PRN Reason: HYPOGLYCEMIA Insulin Glargine (Lantus (Bkc)) 40 units SC BID [facility] Last Admin: 04/27/19 08:21 Dose: 40 units Documented by: Insulin Human Lispro (Humalog Kwikpen (Bkc)) 0 unit SC ACHS [facility]; Protocol Last Admin: 04/27/19 12:51 Dose: Not Given Documented by: Insulin Human Lispro (Humalog Kwikpen (Bkc)) 7 unit SC BREAKFAST [facility] Last Admin: 04/27/19 08:21 Dose: 7 u Documented by: Insulin Human Lispro (Humalog Kwikpen (Bkc)) 5 unit SC LUNCH [facility] Last Admin: 04/27/19 12:19 Dose: 5 u Documented by: Insulin Human Lispro (Humalog Kwikpen (Bkc)) 6 unit SC DINNER [facility] Last Admin: 04/26/19 19:01 Dose: 6 u Documented by: Levofloxacin (Levaquin Tablet) 250 mg PO Q48@0600 [facility] Last Admin: 04/27/19 05:30 Dose: 250 mg Documented by: Magnesium Hydroxide (Milk Of Magnesia) 30 ml PO DAILY PRN PRN PRN Reason: Constipation Last Admin: 04/23/19 10:03 Dose: 30 ml Documented by: Melatonin (Melatonin) 3 mg PO QHS PRN PRN PRN Reason: INSOMNIA Last Admin: 04/25/19 22:04 Dose: 3 mg Documented by: Metoprolol Succinate (Toprol Xl (Beta Rakesh)) 50 mg PO DAILY [facility] Last Admin: 04/27/19 08:31 Dose: 50 mg Documented by: Nitroglycerin (Nitrostat) 0.4 mg SUBLINGUAL Q5M PRN PRN Reason: CARDIAC/CHEST PAIN Ondansetron HCl (Zofran) 4 mg IV Q8H PRN PRN PRN Reason: NAUSEA/VOMITING Oxycodone HCl (Oxyir) 5 mg PO Q4H PRN PRN PRN Reason: Pain Score 4-5/10 Last Admin: 04/24/19 22:23 Dose: 5 mg Documented by: Oxycodone HCl (Oxyir) 10 mg PO Q4H PRN PRN PRN Reason: Pain Score 6-10/10 Last Admin: 04/26/19 13:31 Dose: 10 mg Documented by: Senna (Senokot) 2 tablet PO DAILY PRN PRN Reason: Constipation Sodium Chloride () 10 - 40 ml IV UD PRN PRN Reason: SALINE FLUSH Last Admin: 04/27/19 06:14 Dose: 10 ml Documented by: Warfarin Sodium (Coumadin (Pbkc)) 2.5 mg PO TuWe@0 [facility] Last Admin: 04/26/19 22:12 Dose: 2.5 mg Documented by: Warfarin Sodium (Coumadin (Pbkc)) 5 mg PO SuMoThFrSa@2200 [facility] Last Admin: 04/24/19 22:24 Dose: 5 mg Documented by: Medical Necessity - Tobacco Use Smoking Status: Former smoker Assessment/Plan All Active Problems (Last Reviewed 04/16/19 @ 11:18 by Regulo Figueroa MD) CHF (congestive heart failure) (Acute) MOUNA (acute kidney injury) (Acute) Acute respiratory failure (Resolved) Pneumonia, community acquired (Resolved) Sepsis (Resolved) 1. Acute hypoxic and hypercapnic respiratory failure secondary to community-acquired pneumonia-pulmonary medicine consulted. Pulmonary embolism work-up negative. Continue supplement oxygen to maintain O2 at or above 90%. Continue oral Levaquin with stop date 04/28/2019. Sputum culture positive for Haemophilus influenza. Albuterol and DuoNeb aerosols. 2. Acute kidney injury on chronic kidney disease stage III-nephrology consulted, continue hemodialysis per recommendations. Suspect diabetic nephropathy. Patient was recommended to have renal biopsy however declining at this time. 3. Nonsustained ventricular tachycardia-cardiology following. Continue amiodarone, Cardizem and metoprolol. History of failed ablation. 4. Hypertension-continue metoprolol. Home nephrotoxic regimen including lisinopril, spironolactone and torsemide on hold. 5. Paroxysmal atrial fibrillation-on rate control per #3. Continue Coumadin. 6. Chronic diastolic CHF-echo demonstrated an EF of 60%. Continue Kendell wraps bilateral lower extremities. 7. Type 2 diabetes mellitus-continue Lantus and sliding scale insulin. Metformin discontinued going forward. 8. LASHAWN-continue BiPAP nightly. 9. History of VSD/PDA-status post prior surgical repairs. 10. Morbid obesity-encouraged diet and lifestyle modifications. DVT prophylaxis-Coumadin Discharge planning: SNF pending pre-CERT. This patient was seen by LE Long under the supervision of Dr. Figueroa. <Regulo Figueroa - Last Filed: 04/27/19 16:55> - Physical Exam Vitals/I&O's: Vital Signs Temp Pulse Resp BP Pulse Ox 98.6 F 66 18 109/73 96 04/27/19 14:16 04/27/19 15:17 04/27/19 14:16 04/27/19 14:16 04/27/19 14:16 Oxygen Flow Rate (L/min) 2 Oxygen Delivery Method Nasal Cannula Weight: 156.7 kg Body Mass Index (BMI) 53.4 Finger Stick Blood Glucose 479 Intake and Output for Last 24 Hours 04/25/19 04/26/19 04/27/19 23:59 23:59 23:59 Intake Total 1110 / 1110 600 / 840 600 / 600 Output Total 525 / 525 3600 / 3600 700 / 700 Balance 585 / 585 -3000 / -2760 -100 / -100 Laboratory Results 04/26/19 16:57: POC Glucose 136 H 04/26/19 22:10: POC Glucose 170 H 04/27/19 05:53: Sodium 133 L, Potassium 4.3, Chloride 96 L, Carbon Dioxide 29.0, Anion Gap 8, BUN 42 H, Creatinine 2.79 H, Estim Creat Clear Calc 26.90, Est GFR (MDRD) Af Amer 30 L, Est GFR (MDRD) Non-Af 25 L, BUN/Creatinine Ratio 15.1, Glucose 98, Calcium 8.4 L 04/27/19 08:16: POC Glucose 102 04/27/19 11:38: POC Glucose 144 H Current Medications Acetaminophen (Tylenol) 650 mg PO Q6H PRN PRN PRN Reason: Pain Score 1-3/Temp > 100.7 F Last Admin: 04/22/19 21:57 Dose: 650 mg Documented by: Al Hydroxide/Mg Hydroxide (Mylanta Ii) 30 ml PO Q6H PRN PRN PRN Reason: Gastric Burning Albuterol/Ipratropium (Duoneb) 3 ml INHALATION Q6H PRN PRN PRN Reason: WHEEZING Amiodarone HCl (Cordarone) 200 mg PO BID [facility] Last Admin: 04/27/19 08:30 Dose: 200 mg Documented by: Atorvastatin Calcium (Lipitor) 20 mg PO QHS [facility] Last Admin: 04/26/19 22:12 Dose: 20 mg Documented by: Glucagon () 1 mg IM .X1 PRN PRN Reason: Hypoglycemia Guaifenesin (Robitussin) 20 ml PO Q4H PRN PRN PRN Reason: COUGH Dextrose (Dextrose 10%-Water) 250 mls @ 999 mls/hr IV .Q16M PRN; Protocol PRN Reason: HYPOGLYCEMIA Insulin Glargine (Lantus (Bkc)) 40 units SC BID [facility] Last Admin: 04/27/19 08:21 Dose: 40 units Documented by: Insulin Human Lispro (Humalog Kwikpen (Bkc)) 0 unit SC ACHS [facility]; Protocol Last Admin: 04/27/19 12:51 Dose: Not Given Documented by: Insulin Human Lispro (Humalog Kwikpen (Bkc)) 7 unit SC BREAKFAST [facility] Last Admin: 04/27/19 08:21 Dose: 7 u Documented by: Insulin Human Lispro (Humalog Kwikpen (Bkc)) 5 unit SC LUNCH [facility] Last Admin: 04/27/19 12:19 Dose: 5 u Documented by: Insulin Human Lispro (Humalog Kwikpen (Bkc)) 6 unit SC DINNER [facility] Last Admin: 04/26/19 19:01 Dose: 6 u Documented by: Levofloxacin (Levaquin Tablet) 250 mg PO Q48@0600 [facility] Stop: 04/28/19 06:00 Last Admin: 04/27/19 05:30 Dose: 250 mg Documented by: Magnesium Hydroxide (Milk Of Magnesia) 30 ml PO DAILY PRN PRN PRN Reason: Constipation Last Admin: 04/23/19 10:03 Dose: 30 ml Documented by: Melatonin (Melatonin) 3 mg PO QHS PRN PRN PRN Reason: INSOMNIA Last Admin: 04/25/19 22:04 Dose: 3 mg Documented by: Metoprolol Succinate (Toprol Xl (Beta Rakesh)) 50 mg PO DAILY [facility] Last Admin: 04/27/19 08:31 Dose: 50 mg Documented by: Nitroglycerin (Nitrostat) 0.4 mg SUBLINGUAL Q5M PRN PRN Reason: CARDIAC/CHEST PAIN Ondansetron HCl (Zofran) 4 mg IV Q8H PRN PRN PRN Reason: NAUSEA/VOMITING Oxycodone HCl (Oxyir) 5 mg PO Q4H PRN PRN PRN Reason: Pain Score 4-5/10 Last Admin: 04/24/19 22:23 Dose: 5 mg Documented by: Oxycodone HCl (Oxyir) 10 mg PO Q4H PRN PRN PRN Reason: Pain Score 6-10/10 Last Admin: 04/26/19 13:31 Dose: 10 mg Documented by: Senna (Senokot) 2 tablet PO DAILY PRN PRN Reason: Constipation Sodium Chloride () 10 - 40 ml IV UD PRN PRN Reason: SALINE FLUSH Last Admin: 04/27/19 06:14 Dose: 10 ml Documented by: Warfarin Sodium (Coumadin (Pbkc)) 2.5 mg PO TuWe@0 [facility] Last Admin: 04/26/19 22:12 Dose: 2.5 mg Documented by: Warfarin Sodium (Coumadin (Pbkc)) 5 mg PO SuMoThFrSa@2200 [facility] Last Admin: 04/24/19 22:24 Dose: 5 mg Documented by: Assessment/Plan This patient was seen in conjunction with LE Long . I have independently interviewed and examined the patient and reviewed pertinent historical, laboratory, and other data. Please refer to LE Long note for details of this patient's presentation, findings, and recommendations. I have reviewed LE Long note and concur with documented findings. In brief, patient is a 79-year-old gentleman with multiple comorbidities admitted with progressive shortness of breath. Managed initially as a case of acute congestive heart failure with preserved ejection fraction. Patient hospital stay was complicated by worsening respiratory status thought to be secondary to hypercapnia from his obesity hypoventilation syndrome. His kidney function worsened resulting in placement of prior dialysis catheter with initiation of dialysis 04/25/2019; patient remains profoundly deconditioned did discuss with patient and family the day prior regarding patient being discharged to a prison facility prior to going home. Was also seen in consultation by nephrology renal biopsy discussed with patient 04/26/2019; patient seen overall clinical condition continues to improve. Currently awaiting insurance precertification prior to patient being transferred to prison facility 04/27/2019: Patient seen still complains of feeling weak. Awaiting insurance presets prior to patient being transferred to prison facility. Physical Examination: GENERAL: Lethargic HEENT: Atraumatic; EYES; Anicteric, Normal Conjunctiva NECK; supple, normal thyroid, RESPIRATORY: Diminished to auscultation CARDIOVASCULAR: Regular S1 S2, GI: soft, normoactive bowel sounds, : No Renal angle tenderness; EXTREMITIES: Bilateral edema MUSCULOSKELETAL: no muscle waisting NEURO: Awake; no lateralizing signs. SKIN: No Rash PSYCH; Flat affect Assessment: 1. Acute hypoxic and hypercapnic respiratory failure 2. Acute on chronic congestive heart failure with preserved ejection fraction 3. Morbid obesity with BMI of 52.6 4. Essential hypertension 6. Severe pulmonary hypertension 7. Dyslipidemia 8. Congenital heart disease ~ with History of VSD repair Dacron patch repair at age 18 ; History of patent ductus arteriosus repair at age 3 9. History of paroxysmal A. fib/flutter status post ablation 10. Obstructive sleep apnea 11. 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 Nonsustained V. tach on amiodarone 13. DVT prophylaxis on Coumadin assisted Recommendations: 1. I have discussed the results of my overview and impressions with the patient 2. Options for management were reviewed Code Visit Inpatient E&M: 76255 Subs Hosp L2
--- NOTE | 2019-04-27 14:43 | PN_ITS ---
Patient Problems: Active and Suspected Problems (Last Reviewed 04/16/19 @ 11:18 by Regulo Figueroa MD) CHF (congestive heart failure) (Acute) MOUNA (acute kidney injury) (Acute) Subjective: NO SOB/CP - Physical Exam Vitals/I&O's: Vital Signs Temp Pulse Resp BP Pulse Ox 98.6 F 83 18 109/73 96 04/27/19 14:16 04/27/19 14:16 04/27/19 14:16 04/27/19 14:16 04/27/19 14:16 Oxygen Flow Rate (L/min) 2 Oxygen Delivery Method Nasal Cannula Weight: 156.7 kg Body Mass Index (BMI) 53.4 Finger Stick Blood Glucose 479 Intake and Output for Last 24 Hours 04/25/19 04/26/19 04/27/19 23:59 23:59 23:59 Intake Total 1110 / 1110 600 / 840 600 / 600 Output Total 525 / 525 3600 / 3600 700 / 700 Balance 585 / 585 -3000 / -2760 -100 / -100 General: Alert, Oriented x3, Cooperative HEENT: Atraumatic, PERRLA, EOMI, Normocephalic Neck: Supple, No JVD, Negative Carotid Bruits Lungs: Clear to auscultation, Normal air movement Cardiovascular: Regular rate, No murmurs Abdomen: Bowel Sounds Present, Soft, Non Tender, Obese Extremities: Capillary Refill Less than 3 Seconds, Edema Skin: No rashes, No breakdown Musculoskeletal: No Tenderness to Palpation of Joints or Extremities Neurological: Cranial nerves II-XII grossly intact Psych/Mental Status: Normal Affect, Appropriate Laboratory Results 04/26/19 16:57: POC Glucose 136 H 04/26/19 22:10: POC Glucose 170 H 04/27/19 05:53: Sodium 133 L, Potassium 4.3, Chloride 96 L, Carbon Dioxide 29.0, Anion Gap 8, BUN 42 H, Creatinine 2.79 H, Estim Creat Clear Calc 26.90, Est GFR (MDRD) Af Amer 30 L, Est GFR (MDRD) Non-Af 25 L, BUN/Creatinine Ratio 15.1, Glucose 98, Calcium 8.4 L 04/27/19 08:16: POC Glucose 102 04/27/19 11:38: POC Glucose 144 H Current Medications Acetaminophen (Tylenol) 650 mg PO Q6H PRN PRN PRN Reason: Pain Score 1-3/Temp > 100.7 F Last Admin: 04/22/19 21:57 Dose: 650 mg Documented by: Al Hydroxide/Mg Hydroxide (Mylanta Ii) 30 ml PO Q6H PRN PRN PRN Reason: Gastric Burning Albuterol/Ipratropium (Duoneb) 3 ml INHALATION Q6H PRN PRN PRN Reason: WHEEZING Amiodarone HCl (Cordarone) 200 mg PO BID [facility] Last Admin: 04/27/19 08:30 Dose: 200 mg Documented by: Atorvastatin Calcium (Lipitor) 20 mg PO QHS [facility] Last Admin: 04/26/19 22:12 Dose: 20 mg Documented by: Glucagon () 1 mg IM .X1 PRN PRN Reason: Hypoglycemia Guaifenesin (Robitussin) 20 ml PO Q4H PRN PRN PRN Reason: COUGH Dextrose (Dextrose 10%-Water) 250 mls @ 999 mls/hr IV .Q16M PRN; Protocol PRN Reason: HYPOGLYCEMIA Insulin Glargine (Lantus (Bkc)) 40 units SC BID [facility] Last Admin: 04/27/19 08:21 Dose: 40 units Documented by: Insulin Human Lispro (Humalog Kwikpen (Bkc)) 0 unit SC ACHS [facility]; Protocol Last Admin: 04/27/19 12:51 Dose: Not Given Documented by: Insulin Human Lispro (Humalog Kwikpen (Bkc)) 7 unit SC BREAKFAST [facility] Last Admin: 04/27/19 08:21 Dose: 7 u Documented by: Insulin Human Lispro (Humalog Kwikpen (Bkc)) 5 unit SC LUNCH [facility] Last Admin: 04/27/19 12:19 Dose: 5 u Documented by: Insulin Human Lispro (Humalog Kwikpen (Bkc)) 6 unit SC DINNER [facility] Last Admin: 04/26/19 19:01 Dose: 6 u Documented by: Levofloxacin (Levaquin Tablet) 250 mg PO Q48@0600 [facility] Stop: 04/28/19 06:00 Last Admin: 04/27/19 05:30 Dose: 250 mg Documented by: Magnesium Hydroxide (Milk Of Magnesia) 30 ml PO DAILY PRN PRN PRN Reason: Constipation Last Admin: 04/23/19 10:03 Dose: 30 ml Documented by: Melatonin (Melatonin) 3 mg PO QHS PRN PRN PRN Reason: INSOMNIA Last Admin: 04/25/19 22:04 Dose: 3 mg Documented by: Metoprolol Succinate (Toprol Xl (Beta Rakesh)) 50 mg PO DAILY [facility] Last Admin: 04/27/19 08:31 Dose: 50 mg Documented by: Nitroglycerin (Nitrostat) 0.4 mg SUBLINGUAL Q5M PRN PRN Reason: CARDIAC/CHEST PAIN Ondansetron HCl (Zofran) 4 mg IV Q8H PRN PRN PRN Reason: NAUSEA/VOMITING Oxycodone HCl (Oxyir) 5 mg PO Q4H PRN PRN PRN Reason: Pain Score 4-5/10 Last Admin: 04/24/19 22:23 Dose: 5 mg Documented by: Oxycodone HCl (Oxyir) 10 mg PO Q4H PRN PRN PRN Reason: Pain Score 6-10/10 Last Admin: 04/26/19 13:31 Dose: 10 mg Documented by: Senna (Senokot) 2 tablet PO DAILY PRN PRN Reason: Constipation Sodium Chloride () 10 - 40 ml IV UD PRN PRN Reason: SALINE FLUSH Last Admin: 04/27/19 06:14 Dose: 10 ml Documented by: Warfarin Sodium (Coumadin (Pbkc)) 2.5 mg PO TuWe@0 [facility] Last Admin: 04/26/19 22:12 Dose: 2.5 mg Documented by: Warfarin Sodium (Coumadin (Pbkc)) 5 mg PO SuMoThFrSa@2200 [facility] Last Admin: 04/24/19 22:24 Dose: 5 mg Documented by: Medical Necessity - Tobacco Use Smoking Status: Former smoker Assessment/Plan All Active Problems (Last Reviewed 04/16/19 @ 11:18 by Regulo Figueroa MD) CHF (congestive heart failure) (Acute) MOUNA (acute kidney injury) (Acute) Acute respiratory failure (Resolved) Pneumonia, community acquired (Resolved) Sepsis (Resolved) MOUNA on CKD stage III Hyponatremia hypervolemic CHF Afib DM I discussed again with the patient at length the major risks and benefits of renal biopsy but he is not interested in renal biopsy at this time. another dialysis treatment today with U[facility] as tolerated. Case management Wednesday dialysis in [facility] avoid nephrotoxins will continue to monitor for renal recovery.Scr 2.79 today check bmp in am. d/w with patient
--- NOTE | 2019-04-27 15:28 | CASEMGMT ---
SHAWN spoke with Barb from [facility]. She asked SW to call her and let her know how far he walks today. SW spoke with therapy and patient walked 400' CG assist with walker. She said he got up out of bed with little assistance. SHAWN spoke with patient and let him and his family present know that his insurance is not going to approve him to go to a senior care for rehab. He asked why and SW told him he is doing well enough he could go home and do outpatient therapy. He and his family were very upset and feel insurance is a waste of time. They asked who was supposed to care for him as his works and his kid goes to school. SW asked what he needs help with. They said he has a lot of steep steps to get to the bathroom and his bedroom. SW said he may have to stay on the first floor for awhile and we could get him a bedside commode. He said he did not want that. SHAWN told him SW will contact his insurance to find out what they say for sure and let him know. SHAWN called Barb at [facility] and left her a message with this information. Ellie CISNEROS MSW
--- NOTE | 2019-04-27 16:00 | CASEMGMT ---
SHAWN received a return call from Barb and she said they would approve fpc due to his problem with steps. They won't approve him for very long and he will need to focus on steps and energy conservation at the fpc. He may have to work on a first floor set up when he leaves the fpc. SHAWN let patient and his family know above and that we would probably have an official answer tomorrow. SHAWN called Farida at [facility] and let her know to try for pre-cert. SHAWN faxed her updated information. Plan: [facility] pending pre-cert. Ellie CISNEROS SYNCHRONIZER
[2019-04-27 17:06] LABS: Bedside Glucose 86 mg/dL (70-110)
[2019-04-27] MEDS: MELATONIN 3 MG TABLET PO (21:49)
[2019-04-27] MEDS: Atorvastatin Calcium 20 MG Tablet PO (21:49)
[2019-04-27 22:00] LABS: Bedside Glucose 176 mg/dL (70-110)
[2019-04-28] VITALS (11 sets, daily range): BP systolic 116–128; BP diastolic 56–79; PULSE 63–104; RESP 12–20; TEMP 36.9–37.1; O2SAT 96–100
[2019-04-28] MEDS: Acetaminophen 325 MG Tablet 650 MG PO (02:30)
[2019-04-28 07:10] LABS: Bedside Glucose 114 mg/dL (70-110)
[2019-04-28 07:13] LABS: Anion Gap 2 (5-15); BUN 54 mg/dL (7-18); BUN/Creat Ratio 18.4 RATIO (10-20); Calcium,Total 8.4 mg/dL (8.5-10.1); Chloride 98 mmol/L (98-107); Creatinine, Serum 2.94 mg/dL (0.70-1.30); EST Glomerular Filtration Rate 23 mL/min (>60); Est Glom Filt Rate - Afr Amer 28 mL/min (>60); Estimated Creatinine Clearance 25.53 ml/min; Glucose 116 mg/dL (74-106); Potassium 4.3 mmol/L (3.5-5.1); Sodium Level 133 mmol/L (136-145)
[2019-04-28] MEDS: Insulin Lispro 100 UNIT/ML INSULN.PEN 7 UNIT SC ×2 (09:28→11:37)
[2019-04-28] MEDS: Metoprolol(XL)Succ 50 MG Tablet PO ×2 (09:29→09:37)
[2019-04-28] MEDS: Amiodarone 200 MG Tablet PO (09:37)
[2019-04-28] MEDS: Insulin Lispro 100 UNIT/ML INSULN.PEN SC ×2 (11:36→11:43)
[2019-04-28 11:40] LABS: Bedside Glucose 160 mg/dL (70-110)
--- NOTE | 2019-04-28 11:42 | PN_ITS ---
Patient Problems: Active and Suspected Problems (Last Reviewed 04/16/19 @ 11:18 by Regulo Figueroa MD) CHF (congestive heart failure) (Acute) MOUNA (acute kidney injury) (Acute) Subjective: No shortness of breath no chest pain occasional cough no other complaints - Physical Exam Vitals/I&O's: Vital Signs Temp Pulse Resp BP Pulse Ox 98.8 F 104 H 18 121/63 H 97 04/28/19 07:45 04/28/19 11:16 04/28/19 07:45 04/28/19 07:45 04/28/19 07:50 Oxygen Flow Rate (L/min) 2 Oxygen Delivery Method Nasal Cannula Weight: 157.2 kg Body Mass Index (BMI) 53.4 Finger Stick Blood Glucose 479 Intake and Output for Last 24 Hours 04/26/19 04/27/19 04/28/19 23:59 23:59 23:59 Intake Total 600 / 840 840 / 1040 440 / 440 Output Total 3600 / 3600 1200 / 1200 Balance -3000 / -2760 -360 / -160 440 / 440 General: Alert, Oriented x3, Cooperative HEENT: Atraumatic, PERRLA, EOMI, Normocephalic Neck: Supple, No JVD, Negative Carotid Bruits Lungs: Clear to auscultation, Normal air movement Cardiovascular: Regular rate, No murmurs Abdomen: Bowel Sounds Present, Soft, Non Tender, Obese Extremities: Capillary Refill Less than 3 Seconds, Edema Skin: No rashes, No breakdown Musculoskeletal: No Tenderness to Palpation of Joints or Extremities Neurological: Cranial nerves II-XII grossly intact Psych/Mental Status: Normal Affect, Appropriate Laboratory Results 04/27/19 16:55: POC Glucose 86 04/27/19 21:43: POC Glucose 176 H 04/28/19 06:17: Sodium 133 L, Potassium 4.3, Chloride 98, Carbon Dioxide 33.0 H, Anion Gap 2 L, BUN 54 H, Creatinine 2.94 H, Estim Creat Clear Calc 25.53, Est GFR (MDRD) Af Amer 28 L, Est GFR (MDRD) Non-Af 23 L, BUN/Creatinine Ratio 18.4, Glucose 116 H, Calcium 8.4 L 04/28/19 07:04: POC Glucose 114 H 04/28/19 11:34: POC Glucose 160 H Current Medications Acetaminophen (Tylenol) 650 mg PO Q6H PRN PRN PRN Reason: Pain Score 1-3/Temp > 100.7 F Last Admin: 04/28/19 02:30 Dose: 650 mg Documented by: Al Hydroxide/Mg Hydroxide (Mylanta Ii) 30 ml PO Q6H PRN PRN PRN Reason: Gastric Burning Albuterol/Ipratropium (Duoneb) 3 ml INHALATION Q6H PRN PRN PRN Reason: WHEEZING Amiodarone HCl (Cordarone) 200 mg PO BID [facility] Last Admin: 04/28/19 09:37 Dose: 200 mg Documented by: Atorvastatin Calcium (Lipitor) 20 mg PO QHS [facility] Last Admin: 04/27/19 21:49 Dose: 20 mg Documented by: Glucagon () 1 mg IM .X1 PRN PRN Reason: Hypoglycemia Guaifenesin (Robitussin) 20 ml PO Q4H PRN PRN PRN Reason: COUGH Dextrose (Dextrose 10%-Water) 250 mls @ 999 mls/hr IV .Q16M PRN; Protocol PRN Reason: HYPOGLYCEMIA Insulin Glargine (Lantus (Bkc)) 40 units SC BID [facility] Last Admin: 04/28/19 09:27 Dose: 40 units Documented by: Insulin Human Lispro (Humalog Kwikpen (Bkc)) 0 unit SC ACHS [facility]; Protocol Last Admin: 04/28/19 11:36 Dose: 3 units Documented by: Insulin Human Lispro (Humalog Kwikpen (Bkc)) 7 unit SC BREAKFAST [facility] Last Admin: 04/28/19 11:37 Dose: 7 u Documented by: Insulin Human Lispro (Humalog Kwikpen (Bkc)) 5 unit SC LUNCH [facility] Last Admin: 04/27/19 12:19 Dose: 5 u Documented by: Insulin Human Lispro (Humalog Kwikpen (Bkc)) 6 unit SC DINNER [facility] Last Admin: 04/27/19 17:31 Dose: Not Given Documented by: Magnesium Hydroxide (Milk Of Magnesia) 30 ml PO DAILY PRN PRN PRN Reason: Constipation Last Admin: 04/23/19 10:03 Dose: 30 ml Documented by: Melatonin (Melatonin) 3 mg PO QHS PRN PRN PRN Reason: INSOMNIA Last Admin: 04/27/19 21:49 Dose: 3 mg Documented by: Metoprolol Succinate (Toprol Xl (Beta Rakesh)) 50 mg PO DAILY [facility] Last Admin: 04/28/19 09:37 Dose: 50 mg Documented by: Nitroglycerin (Nitrostat) 0.4 mg SUBLINGUAL Q5M PRN PRN Reason: CARDIAC/CHEST PAIN Ondansetron HCl (Zofran) 4 mg IV Q8H PRN PRN PRN Reason: NAUSEA/VOMITING Oxycodone HCl (Oxyir) 5 mg PO Q4H PRN PRN PRN Reason: Pain Score 4-5/10 Last Admin: 04/24/19 22:23 Dose: 5 mg Documented by: Oxycodone HCl (Oxyir) 10 mg PO Q4H PRN PRN PRN Reason: Pain Score 6-10/10 Last Admin: 04/26/19 13:31 Dose: 10 mg Documented by: Senna (Senokot) 2 tablet PO DAILY PRN PRN Reason: Constipation Sodium Chloride () 10 - 40 ml IV UD PRN PRN Reason: SALINE FLUSH Last Admin: 04/27/19 06:14 Dose: 10 ml Documented by: Warfarin Sodium (Coumadin (Pbkc)) 2.5 mg PO TuWe@[id number] [facility] Last Admin: 04/26/19 22:12 Dose: 2.5 mg Documented by: Warfarin Sodium (Coumadin (Pbkc)) 5 mg PO SuMoThFrSa@2200 [facility] Last Admin: 04/27/19 21:46 Dose: 5 mg Documented by: Medical Necessity - Tobacco Use Smoking Status: Former smoker Assessment/Plan All Active Problems (Last Reviewed 04/16/19 @ 11:18 by Regulo Figueroa MD) CHF (congestive heart failure) (Acute) MOUNA (acute kidney injury) (Acute) Acute respiratory failure (Resolved) Pneumonia, community acquired (Resolved) Sepsis (Resolved) MOUNA on CKD stage III Hyponatremia hypervolemic CHF Afib DM I discussed again with the patient at length the major risks and benefits of renal biopsy but he is not interested in renal biopsy at this time. another dialysis treatment today with UF as tolerated. Case management already arranged for Wednesday dialysis in [facility] for HD today awaiting placement avoid nephrotoxins will continue to monitor for renal recovery.Scr 2.94 worsening more prerenal d/w with patient and HD RN
--- NOTE | 2019-04-28 12:57 | PCM.EXTCARCO ---
- Diet 04/20/19 08:14 Diet: Cardiac: Calorie-Controlled Is pt able to select menu?: Yes How many daily calories?: 1800 calorie - Routine Orders/Code Status Enema Type: Fleetz Enema Frequency: Daily PRN Suppository Type: Dulcolax 10mg Suppository Frequency: Daily PRN O2 Liters per Minute: 2 O2 Frequency: Continuous Keep PO Greater than or Equal to (%): 90 - Ween as tolerated Routine Lab Work: - - BMP, CBC and INR Daily X3 days, then Q week if labs remain stable Code Status: Full Code - Wound(s) right chest Wound Type: Surgical Incision - Suggestions for Active Care Change Position every (hours): 2 Times a day to sit in chair: 3 - Therapies Physical Therapy: Eval and Treat Occupational Therapy: Eval and Treat - Problem/Diagnosis (1) CHF (congestive heart failure) Status: Chronic Current Visit: No (2) MOUNA (acute kidney injury) Status: Acute Current Visit: Yes (3) assisted current use of anticoagulant Status: Chronic Current Visit: No (4) History of right and left heart catheterization Status: Chronic Comment: Done s/p VSD repair Per Dr. Sherif Espinoza @ [facility]: normal coronaries, mildly elevated PA pressures Current Visit: No (5) Paroxysmal SVT (supraventricular tachycardia) Status: Chronic Current Visit: No (6) Atrial fibrillation Status: Chronic Current Visit: No (7) History of atrial flutter Status: Chronic Comment: Attempted atrial flutter ablation @ [facility] X 1 in 1997 (unsuccessful), followed by Atrial flutter ablations X [address] Paul at [facility] in Apr and October of 1998 Current Visit: No (8) Chronic diastolic congestive heart failure Status: Chronic Current Visit: No (9) History of patent ductus arteriosus as a child Status: Chronic Comment: Repaired at age 3 years, done @ [facility] Current Visit: No (10) Nonrheumatic tricuspid valve regurgitation Status: Chronic Comment: Leaflet used for VSD repair in past Current Visit: No (11) History of ventricular septal defect repair Status: Chronic Comment: 1977 (pt approx age 18) using Dacron patch, done at [facility] Current Visit: No (12) Hyperlipidemia Status: Chronic Current Visit: No (13) Hypertension Status: Chronic Current Visit: No (14) Diabetes mellitus, type II Status: Chronic Current Visit: No (15) History of radiofrequency ablation procedure for cardiac arrhythmia Status: Chronic Comment: Attempted atrial flutter ablation @ [facility] X 1 (unsuccessful), followed by Atrial flutter ablations X [address] Paul at [facility] in Apr and October of 1998 Current Visit: No (16) Pulmonary hypertension, moderate to severe Status: Chronic Comment: PASP 69 mmHg in September 2013 Current Visit: No (17) LASHAWN (obstructive sleep apnea) Status: Chronic Current Visit: No - Allergies/Procedures Done in Hospital Allergies/Adverse Reactions: Allergies amoxicillin trihydrate [From Augmentin] Adverse Reaction (Verified 03/20/19 15:00) Diarrhea indomethacin [From Indocin] Adverse Reaction (Verified 04/16/19 08:55) Nausea potassium clavulanate [From Augmentin] Adverse Reaction (Verified 03/20/19 15:00) Diarrhea Procedures: 2-D Echocardiogram, - - Right IJ tunneled dialysis catheter placement - Type of Care/Length of Stay Estimated LOS: Convalescent Care Less Than 30 days Type of Care Needed: Skilled Rehab Potential: Fair Prognosis: Fair - Additional Orders/Day of Discharge H&P will serve as current which was dated: 04/16/19 Day of Discharge: 04/28/19 - Dietary and Speech Recommendations Dietitian Recommendations/Changes: Rec Cardiac/Low Cholesterol: CHO Controlled diet with fluid restriction as medically indicated. - Follow Up Care Primary Care Physician: Francisco Alcazar MD [Primary Care Provider] - Please follow up with your Primary Care Physician in: 1 Week Please Follow Up With: Nephrology/Dialysis When: As scheduled Please Follow Up With: Elier Khanna MD When: See LOCAL AREA NETWORK ADMINISTRATOR/PA in 1-2 weeks
--- NOTE | 2019-04-28 13:13 | PCM.DC.SUM ---
<Martha Torres - Last Filed: 04/28/19 13:19> Discharge Date and Diagnosis Date of Admission: 04/16/19 Date of Discharge: 04/28/19 - Primary Discharge Diagnosis Active and Suspected Problems (Last Reviewed 04/16/19 @ 11:18 by Regulo Figueroa MD) 1. Acute hypoxic and hypercapnic respiratory failure secondary to community-acquired pneumonia 2. Acute kidney injury on chronic kidney disease stage III 3. Nonsustained ventricular tachycardia 4. Hypertension 5. Paroxysmal atrial fibrillation 6. Chronic diastolic CHF 7. Type 2 diabetes mellitus 8. LASHAWN 9. History of VSD/PDA 10. 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 Sherif Espinoza @ [facility]: normal coronaries, mildly elevated PA pressures Paroxysmal SVT (supraventricular tachycardia) (Chronic) Atrial fibrillation (Chronic) History of atrial flutter (Chronic) Attempted atrial flutter ablation @ [facility] X 1 in 1997 (unsuccessful), followed by Atrial flutter ablations X [address] Paul at [facility] in Apr and October of 1998 Chronic diastolic congestive heart failure (Chronic) History of patent ductus arteriosus as a child (Chronic) Repaired at age 3 years, done @ [facility] Nonrheumatic tricuspid valve regurgitation (Chronic) Leaflet used for VSD repair in past History of ventricular septal defect repair (Chronic) 1977 (pt approx age 18) using Dacron patch, done at [facility] Hyperlipidemia (Chronic) Hypertension (Chronic) Diabetes mellitus, type II (Chronic) History of radiofrequency ablation procedure for cardiac arrhythmia (Chronic) Attempted atrial flutter ablation @ [facility] X 1 (unsuccessful), followed by Atrial flutter ablations X [address] Paul at [facility] in Apr and October of 1998 Pulmonary hypertension, moderate to severe (Chronic) PASP 69 mmHg in September 2013 LASHAWN (obstructive sleep apnea) (Chronic) Hospital Course and Treatment Imaging Results: Diagnostic Data Chest CT 04/17/19 07:43 IMPRESSION: Patchy bilateral pulmonary infiltrates. Follow-up is recommended. Electronically Signed: Fortunato Francisco, at 14:26 EST , Service support , Lung Scan-VQ NM 04/17/19 07:51 IMPRESSION: 1. VERY LOW PROBABILITY FOR PULMONARY EMBOLUS (<10%) 99m Tc DTPA aerosol ventilation / 99m Tc MAA pulmonary perfusion imaging examination, according to PIOPED II interpretive criteria with regard given to the presence of > 2 ventilation-perfusion matches without corresponding radiographic changes. (Sotsman et al, Radiology 246: 941, 2008 Soziggy et al, J Nucl Med 49: 1741, 2008). 2. Central clumping of the aerosol may be secondary to obstructive airway mechanics and or clinical tachypnea. Electronically Signed: Neftaly Marin DO at 14:07 EST Tel , Service support , Renal Ultrasound 04/17/19 12:16 IMPRESSION: Findings consistent with nonspecific renal parenchymal disease. No evidence for renal obstruction. Left renal cyst measuring 2.5 x 2.4 x 2.5 cm. Electronically Signed: Adonis Seals MD at 22:52 EST , Service support , Chest X-Ray 04/22/19 06:10 IMPRESSION: Stable bilateral edema or infiltrates. Electronically Signed: Arnold Murrell MD at 8:26 EST , Service support , Dr. Sheffield-Cardiology Dr. Arevalo- Nephrology Dr. Soria- Pulmonary Medicine Dr. Kingston- general surgery Operations: None Procedures: 2-D Echocardiogram, - - Dialysis catheter placement Summary of Care Provided: The patient is a 59 year old M admitted 04/16/2019 due to shortness of breath. 1. Acute hypoxic and hypercapnic respiratory failure secondary to community-acquired pneumonia-pulmonary medicine consulted during admission. Pulmonary embolism work-up negative. Continue supplement oxygen to maintain O2 at or above 90%. Oral Levaquin with stop date 04/28/2019. Sputum culture positive for Haemophilus influenza. As needed albuterol aerosol. Wean oxygen as tolerated. 2. Acute kidney injury on chronic kidney disease stage III-nephrology consulted, continue hemodialysis per recommendations. Suspect diabetic nephropathy. Patient was recommended to have renal biopsy however declining at this time. Continue nephrology and dialysis regimen as scheduled at discharge. 3. Nonsustained ventricular tachycardia-cardiology consulted during admission. Continue amiodarone, metoprolol. History of failed ablation. Follow-up with cardiology in 1 week. 4. Hypertension-continue metoprolol. Home nephrotoxic regimen including lisinopril, spironolactone and torsemide discontinued at discharge. Follow-up with cardiology at discharge as noted above. 5. Paroxysmal atrial fibrillation-on rate control per #3. Continue Coumadin. Trend INR. 6. Chronic diastolic CHF-echo demonstrated an EF of 60%. Continue Kendell wraps bilateral lower extremities. 7. Type 2 diabetes mellitus-continue Lantus and sliding scale insulin. Metformin discontinued going forward. 8. LASHAWN-continue BiPAP nightly. 9. History of VSD/PDA-status post prior surgical repairs. 10. Morbid obesity-encouraged diet and lifestyle modifications. General: Alert, Oriented x3, Cooperative HEENT: Atraumatic, PERRLA, EOMI, Normocephalic Neck: Supple, No JVD, Negative Carotid Bruits Lungs: Clear to auscultation, Diminished Cardiovascular: Regular rate, Regular Rhythm, Normal S1, Normal S2, No murmurs Abdomen: Bowel Sounds Present, Soft, Non Tender, Non-Distended, Obese Extremities: No clubbing, No cyanosis, Edema - +2 bilateral lower extremities Skin: No rashes, No breakdown, - - Chronic skin changes bilateral lower extremities Musculoskeletal: No Tenderness to Palpation of Joints or Extremities Neurological: Cranial nerves II-XII grossly intact, Neuro grossly intact Psych/Mental Status: Normal Affect, Appropriate Patient seen and examined prior to discharge. Physical assessment as noted above. Patient is stable for discharge with follow up recommendations as noted above. This patient was seen by LE Long under the supervision of Dr. Figueroa. - Physical Exam Vitals/I&O's: Vital Signs Temp Pulse Resp BP Pulse Ox 98.8 F 104 H 18 121/63 H 97 04/28/19 07:45 04/28/19 11:16 04/28/19 07:45 04/28/19 07:45 04/28/19 07:50 Oxygen Flow Rate (L/min) 2 Oxygen Delivery Method Nasal Cannula Weight: 346 lb 9.067 oz Body Mass Index (BMI) 53.4 Finger Stick Blood Glucose 479 Intake and Output for Last 24 Hours 04/26/19 04/27/19 04/28/19 23:59 23:59 23:59 Intake Total 600 / 840 840 / 1040 680 / 680 Output Total 3600 / 3600 1200 / 1200 Balance -3000 / -2760 -360 / -160 680 / 680 Laboratory Results 04/27/19 16:55: POC Glucose 86 04/27/19 21:43: POC Glucose 176 H 04/28/19 06:17: Sodium 133 L, Potassium 4.3, Chloride 98, Carbon Dioxide 33.0 H, Anion Gap 2 L, BUN 54 H, Creatinine 2.94 H, Estim Creat Clear Calc 25.53, Est GFR (MDRD) Af Amer 28 L, Est GFR (MDRD) Non-Af 23 L, BUN/Creatinine Ratio 18.4, Glucose 116 H, Calcium 8.4 L 04/28/19 07:04: POC Glucose 114 H 04/28/19 11:34: POC Glucose 160 H Current Medications Acetaminophen (Tylenol) 650 mg PO Q6H PRN PRN PRN Reason: Pain Score 1-3/Temp > 100.7 F Last Admin: 04/28/19 02:30 Dose: 650 mg Documented by: Al Hydroxide/Mg Hydroxide (Mylanta Ii) 30 ml PO Q6H PRN PRN PRN Reason: Gastric Burning Albuterol/Ipratropium (Duoneb) 3 ml INHALATION Q6H PRN PRN PRN Reason: WHEEZING Amiodarone HCl (Cordarone) 200 mg PO BID [facility] Last Admin: 04/28/19 09:37 Dose: 200 mg Documented by: Atorvastatin Calcium (Lipitor) 20 mg PO QHS [facility] Last Admin: 04/27/19 21:49 Dose: 20 mg Documented by: Glucagon () 1 mg IM .X1 PRN PRN Reason: Hypoglycemia Guaifenesin (Robitussin) 20 ml PO Q4H PRN PRN PRN Reason: COUGH Dextrose (Dextrose 10%-Water) 250 mls @ 999 mls/hr IV .Q16M PRN; Protocol PRN Reason: HYPOGLYCEMIA Insulin Glargine (Lantus (Bkc)) 40 units SC BID [facility] Last Admin: 04/28/19 09:27 Dose: 40 units Documented by: Insulin Human Lispro (Humalog Kwikpen (Bk)) 0 unit SC ACHS [facility]; Protocol Last Admin: 04/28/19 11:36 Dose: 3 units Documented by: Insulin Human Lispro (Humalog Kwikpen (Bk)) 7 unit SC BREAKFAST [facility] Last Admin: 04/28/19 11:37 Dose: 7 u Documented by: Insulin Human Lispro (Humalog Kwikpen (Bkc)) 5 unit SC LUNCH [facility] Last Admin: 04/28/19 11:43 Dose: 5 u Documented by: Insulin Human Lispro (Humalog Kwikpen (Bk)) 6 unit SC DINNER [facility] Last Admin: 04/27/19 17:31 Dose: Not Given Documented by: Magnesium Hydroxide (Milk Of Magnesia) 30 ml PO DAILY PRN PRN PRN Reason: Constipation Last Admin: 04/23/19 10:03 Dose: 30 ml Documented by: Melatonin (Melatonin) 3 mg PO QHS PRN PRN PRN Reason: INSOMNIA Last Admin: 04/27/19 21:49 Dose: 3 mg Documented by: Metoprolol Succinate (Toprol Xl (Beta Rakesh)) 50 mg PO DAILY [facility] Last Admin: 04/28/19 09:37 Dose: 50 mg Documented by: Nitroglycerin (Nitrostat) 0.4 mg SUBLINGUAL Q5M PRN PRN Reason: CARDIAC/CHEST PAIN Ondansetron HCl (Zofran) 4 mg IV Q8H PRN PRN PRN Reason: NAUSEA/VOMITING Oxycodone HCl (Oxyir) 5 mg PO Q4H PRN PRN PRN Reason: Pain Score 4-5/10 Last Admin: 04/24/19 22:23 Dose: 5 mg Documented by: Oxycodone HCl (Oxyir) 10 mg PO Q4H PRN PRN PRN Reason: Pain Score 6-10/10 Last Admin: 04/26/19 13:31 Dose: 10 mg Documented by: Senna (Senokot) 2 tablet PO DAILY PRN PRN Reason: Constipation Sodium Chloride () 10 - 40 ml IV UD PRN PRN Reason: SALINE FLUSH Last Admin: 04/27/19 06:14 Dose: 10 ml Documented by: Warfarin Sodium (Coumadin (Pbkc)) 2.5 mg PO TuWe@2199 [facility] Last Admin: 04/26/19 22:12 Dose: 2.5 mg Documented by: Warfarin Sodium (Coumadin (Pbkc)) 5 mg PO SuMoThFrSa@0 [facility] Last Admin: 04/27/19 21:46 Dose: 5 mg Documented by: Home Medications: Medications to take at Discharge Atorvastatin Calcium 20 mg PO QHS 04/16/19 Warfarin [Coumadin] 2.5 mg PO TUWE 04/16/19 Warfarin [Coumadin] 5 mg PO SUMOTHFRSA 04/16/19 Amiodarone HCl [Cordarone] 200 mg PO BID tab 04/28/19 Insulin Glargine [Lantus SoloStar Pen] 40 units SUBCUT BID pen 04/28/19 Insulin Lispro [Humalog KwikPen] 5 unit SUBCUT LUNCH insuln.pen 04/28/19 Insulin Lispro [Humalog KwikPen] 6 unit SUBCUT DINNER insuln.pen 04/28/19 Insulin Lispro [Humalog KwikPen] 7 unit SUBCUT BREAKFAST insuln.pen 04/28/19 Insulin Lispro [Humalog KwikPen] See Protocol SUBCUT ACHS insuln.pen 04/28/19 Metoprolol(XL)Succ [Toprol Xl (Beta Rakesh)] 50 mg PO DAILY tab 04/28/19 Primary Care Physician: Francisco Alcazar MD [Primary Care Provider] - Please follow up with your Primary Care Physician in: 1 Week Please Follow Up With: Nephrology/Dialysis When: As scheduled Please Follow Up With: Elier Khanna MD When: See CREDIT CARD ASSOCIATE/PA in 1-2 weeks Disposition: Long Term facility Minutes spent on discharge:: 35 Patient Condition:: Stable Medical Necessity - Tobacco Use Smoking Status: Former smoker Meaningful Use Info Meaningful Use Diagnoses (Choose all that apply): None applicable <Reuglo Figueroa - Last Filed: 04/28/19 14:25> Discharge Date and Diagnosis - Secondary Discharge Diagnosis Chronic Problems (Last Reviewed 04/16/19 @ 11:18 by Regulo Figueroa MD) CHF (congestive heart failure) (Chronic) correction current use of anticoagulant (Chronic) History of right and left heart catheterization (Chronic 02/18/98) Done s/p VSD repair Per Dr. Sherif Espinoza @ [facility]: normal coronaries, mildly elevated PA pressures Paroxysmal SVT (supraventricular tachycardia) (Chronic) Atrial fibrillation (Chronic) History of atrial flutter (Chronic) Attempted atrial flutter ablation @ [facility] X 1 in 1997 (unsuccessful), followed by Atrial flutter ablations X [address] Paul at [facility] in Apr and October of 1998 Chronic diastolic congestive heart failure (Chronic) History of patent ductus arteriosus as a child (Chronic) Repaired at age 3 years, done @ [facility] Nonrheumatic tricuspid valve regurgitation (Chronic) Leaflet used for VSD repair in past History of ventricular septal defect repair (Chronic) 1977 (pt approx age 18) using Dacron patch, done at [facility] Hyperlipidemia (Chronic) Hypertension (Chronic) Diabetes mellitus, type II (Chronic) History of radiofrequency ablation procedure for cardiac arrhythmia (Chronic) Attempted atrial flutter ablation @ [facility] X 1 (unsuccessful), followed by Atrial flutter ablations X [address] Paul at [facility] in Apr and October of 1998 Pulmonary hypertension, moderate to severe (Chronic) PASP 69 mmHg in September 2013 LASHAWN (obstructive sleep apnea) (Chronic) Hospital Course and Treatment Summary of Care Provided: This patient was seen in conjunction with LE Long . I have independently interviewed and examined the patient and reviewed pertinent historical, laboratory, and other data. Please refer to LE Long note for details of this patient's presentation, findings, and recommendations. I have reviewed LE Long note and concur with documented findings. Physical Examination: GENERAL: Lethargic HEENT: Atraumatic; EYES; Anicteric, Normal Conjunctiva NECK; supple, normal thyroid, RESPIRATORY: Diminished to auscultation CARDIOVASCULAR: Regular S1 S2, SKIN: No Rash PSYCH; Flat affect Assessment: 1. Acute hypoxic and hypercapnic respiratory failure 2. Acute on chronic congestive heart failure with preserved ejection fraction 3. Morbid obesity with BMI of 52.6 4. Essential hypertension 6. Severe pulmonary hypertension 7. Dyslipidemia 8. Congenital heart disease ~ with History of VSD repair Dacron patch repair at age 18 ; History of patent ductus arteriosus repair at age 3 9. History of paroxysmal A. fib/flutter status post ablation 10. Obstructive sleep apnea 11. 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 Nonsustained V. tach on amiodarone Recommendations: 1. I have discussed the results of my overview and impressions with the patient 2. Options for management were reviewed - Physical Exam Vitals/I&O's: Vital Signs Temp Pulse Resp BP Pulse Ox 98.8 F 104 H 18 121/63 H 97 04/28/19 07:45 04/28/19 11:16 04/28/19 07:45 04/28/19 07:45 04/28/19 07:50 Oxygen Flow Rate (L/min) 2 Oxygen Delivery Method Nasal Cannula Weight: 157.2 kg Body Mass Index (BMI) 53.4 Finger Stick Blood Glucose 479 Intake and Output for Last 24 Hours 04/26/19 04/27/19 04/28/19 23:59 23:59 23:59 Intake Total 600 / 840 840 / 1040 680 / 680 Output Total 3600 / 3600 1200 / 1200 Balance -3000 / -2760 -360 / -160 680 / 680 Laboratory Results 04/27/19 16:55: POC Glucose 86 04/27/19 21:43: POC Glucose 176 H 04/28/19 06:17: Sodium 133 L, Potassium 4.3, Chloride 98, Carbon Dioxide 33.0 H, Anion Gap 2 L, BUN 54 H, Creatinine 2.94 H, Estim Creat Clear Calc 25.53, Est GFR (MDRD) Af Amer 28 L, Est GFR (MDRD) Non-Af 23 L, BUN/Creatinine Ratio 18.4, Glucose 116 H, Calcium 8.4 L 04/28/19 07:04: POC Glucose 114 H 04/28/19 11:34: POC Glucose 160 H Current Medications Acetaminophen (Tylenol) 650 mg PO Q6H PRN PRN PRN Reason: Pain Score 1-3/Temp > 100.7 F Last Admin: 04/28/19 02:30 Dose: 650 mg Documented by: Al Hydroxide/Mg Hydroxide (Mylanta Ii) 30 ml PO Q6H PRN PRN PRN Reason: Gastric Burning Albuterol/Ipratropium (Duoneb) 3 ml INHALATION Q6H PRN PRN PRN Reason: WHEEZING Amiodarone HCl (Cordarone) 200 mg PO BID [facility] Last Admin: 04/28/19 09:37 Dose: 200 mg Documented by: Atorvastatin Calcium (Lipitor) 20 mg PO QHS [facility] Last Admin: 04/27/19 21:49 Dose: 20 mg Documented by: Glucagon () 1 mg IM .X1 PRN PRN Reason: Hypoglycemia Guaifenesin (Robitussin) 20 ml PO Q4H PRN PRN PRN Reason: COUGH Dextrose (Dextrose 10%-Water) 250 mls @ 999 mls/hr IV .Q16M PRN; Protocol PRN Reason: HYPOGLYCEMIA Insulin Glargine (Lantus (Bkc)) 40 units SC BID [facility] Last Admin: 04/28/19 09:27 Dose: 40 units Documented by: Insulin Human Lispro (Humalog Kwikpen (Bk)) 0 unit SC ACHS [facility]; Protocol Last Admin: 04/28/19 11:36 Dose: 3 units Documented by: Insulin Human Lispro (Humalog Kwikpen (Bkc)) 7 unit SC BREAKFAST [facility] Last Admin: 04/28/19 11:37 Dose: 7 u Documented by: Insulin Human Lispro (Humalog Kwikpen (Bkc)) 5 unit SC LUNCH [facility] Last Admin: 04/28/19 11:43 Dose: 5 u Documented by: Insulin Human Lispro (Humalog Kwikpen (Bk)) 6 unit SC DINNER [facility] Last Admin: 04/27/19 17:31 Dose: Not Given Documented by: Magnesium Hydroxide (Milk Of Magnesia) 30 ml PO DAILY PRN PRN PRN Reason: Constipation Last Admin: 04/23/19 10:03 Dose: 30 ml Documented by: Melatonin (Melatonin) 3 mg PO QHS PRN PRN PRN Reason: INSOMNIA Last Admin: 04/27/19 21:49 Dose: 3 mg Documented by: Metoprolol Succinate (Toprol Xl (Beta Rakesh)) 50 mg PO DAILY [facility] Last Admin: 04/28/19 09:37 Dose: 50 mg Documented by: Nitroglycerin (Nitrostat) 0.4 mg SUBLINGUAL Q5M PRN PRN Reason: CARDIAC/CHEST PAIN Ondansetron HCl (Zofran) 4 mg IV Q8H PRN PRN PRN Reason: NAUSEA/VOMITING Oxycodone HCl (Oxyir) 5 mg PO Q4H PRN PRN PRN Reason: Pain Score 4-5/10 Last Admin: 04/24/19 22:23 Dose: 5 mg Documented by: Oxycodone HCl (Oxyir) 10 mg PO Q4H PRN PRN PRN Reason: Pain Score 6-10/10 Last Admin: 04/26/19 13:31 Dose: 10 mg Documented by: Senna (Senokot) 2 tablet PO DAILY PRN PRN Reason: Constipation Sodium Chloride () 10 - 40 ml IV UD PRN PRN Reason: SALINE FLUSH Last Admin: 04/27/19 06:14 Dose: 10 ml Documented by: Warfarin Sodium (Coumadin (Pbkc)) 2.5 mg PO TuWe@2200 [facility] Last Admin: 04/26/19 22:12 Dose: 2.5 mg Documented by: Warfarin Sodium (Coumadin (Pbkc)) 5 mg PO SuMoThFrSa@2200 [facility] Last Admin: 04/27/19 21:46 Dose: 5 mg Documented by: Code Visit Inpatient E&M: [id number] Disch Hosp
--- NOTE | 2019-04-28 14:17 | PHA.DC.MR ---
Pharmacy Service has performed discharge medication reconciliation for this patient. Home Medications Atorvastatin Calcium 20 mg PO QHS 04/16/19 Warfarin [Coumadin] 2.5 mg PO TUWE 04/16/19 Warfarin [Coumadin] 5 mg PO SUMOTHFRSA 04/16/19 Amiodarone HCl [Cordarone] 200 mg PO BID tab 04/28/19 Insulin Glargine [Lantus SoloStar Pen] 40 units SUBCUT BID pen 04/28/19 Insulin Lispro [Humalog KwikPen] 5 unit SUBCUT LUNCH insuln.pen 04/28/19 Insulin Lispro [Humalog KwikPen] 6 unit SUBCUT DINNER insuln.pen 04/28/19 Insulin Lispro [Humalog KwikPen] 7 unit SUBCUT BREAKFAST insuln.pen 04/28/19 Insulin Lispro [Humalog KwikPen] See Protocol SUBCUT ACHS insuln.pen 04/28/19 Metoprolol(XL)Succ [Toprol Xl (Beta Rakesh)] 50 mg PO DAILY tab 04/28/19 The patient's discharge medication list was reviewed for discrepancies and discrepancies were resolved.
--- NOTE | 2019-04-28 14:43 | CASEMGMT ---
Social Work Received call from Farida at [facility] and preauth obtained. Physician stating pt is ready for discharge today. SW met with pt and family and informed and they are agreeable. Transportation arranged through [facility] for [facility] last picker due to regulation of new oxygen for 6:00 last picker. Family, nursing and [facility] made aware. HENS [id number] completed and orders faxed to [facility]. Plan: D/C to [facility] GIANCARLO Broussard
--- NOTE | 2019-04-28 14:54 | CASEMGMT ---
RN CM NOTE: Call to Bi @ [facility] x [phone]. Message left that pt will be dc'd today and plan start of care at outpt dialysis @ [facility] tomorrow. - Per Inpt dialysis nurse, chair time will be 11:10, but pt to arrive tomorrow @ 11:00. Shaheed, [facility] updated and [facility] notified. Chrissie RAGSDALEN RN ACM
[2019-04-28 16:51] LABS: Bedside Glucose 88 mg/dL (70-110)
--- NOTE | 2019-04-28 17:02 | DIALYSIS ---
HD x 3 hours complete. Tolerated tx well. UF of 1000ml. Used 3k bath. Used right chest wall catheter. Catheter closed with heparin per fill volume. Report was given to ROBERTO Corey.
== END 2019-04-28 18:00 | disposition skilled nursing facility (03) | DRG 189 ==
LOC: ED 10:38 → PCU 10:44
PROVIDERS: Anesthesiology; Internal Medicine; Internal Medicine Cardiovascular Disease; Internal Medicine Critical Care Medicine; Internal Medicine Nephrology; Nurse Practitioner Family; Physician Assistant; Student in an Organized Health Care Education/Training Program; Surgery; Admitting Provider Internal Medicine; Emergency Provider Emergency Medicine; Family Provider Family Medicine; PCP Family Medicine; Referring Provider Internal Medicine; Visit Provider Internal Medicine
PROC: 0JH63XZ Insertion of Tunneled Vascular Access Device into Chest Subcutaneous Tissue and Fascia, Percutaneous Approach (ICD-10-PCS; principal; 2019-04-19 14:25)
DX: J96.01 Acute respiratory failure with hypoxia (principal); J18.9 Pneumonia, unspecified organism; N17.9 Acute kidney failure, unspecified; I47.2 Ventricular tachycardia; I13.0 Hypertensive heart and chronic kidney disease with heart failure and stage 1 through stage 4 chronic kidney disease, or unspecified chronic kidney disease; Z68.43 Body mass index [BMI] 50.0-59.9, adult; I50.32 Chronic diastolic (congestive) heart failure; E87.1 Hypo-osmolality and hyponatremia; J96.02 Acute respiratory failure with hypercapnia; E11.22 Type 2 diabetes mellitus with diabetic chronic kidney disease; N18.3 Chronic kidney disease, stage 3 (moderate); I48.0 Paroxysmal atrial fibrillation; G47.33 Obstructive sleep apnea (adult) (pediatric); E78.5 Hyperlipidemia, unspecified; E87.5 Hyperkalemia; I27.20 Pulmonary hypertension, unspecified; I36.1 Nonrheumatic tricuspid (valve) insufficiency; Z79.01 Long term (current) use of anticoagulants; Z87.74 Personal history of (corrected) congenital malformations of heart and circulatory system; Z87.891 Personal history of nicotine dependence; Z79.4 Long term (current) use of insulin
CPT/HCPCS: 36415; 36416; 36600; 71045; 71046; 71250; 76000; 76770; 78598; 80048; 81001; 82803; 82947; 82962; 83036; 83735; 83880; 84100; 84484; 85025; 85379; 85610; 85730; 86160; 86225; 86256; 86704; 86706; 86900; 86901; 87040; 87070; 87077; 87205; 87340; 87804; 90937; 93005; 93306; 93970; 94002; 94003; 94640; 97110; 97162; 97166; 97530; 97535; 97802; 97803; 99251; 99285; A9540; A9567; J7030; J7040; P9017; Q9957; A4216; C1750; C8929; G0257; G0463; J0153; J1940

== ENCOUNTER → 2019-05-31 11:12 | Outpatient (CLI) | payer MEDICARE, SELFPAY ==
[2019-05-15 11:24] VITALS: BMI 51.8
[2019-05-31 11:00] VITALS: PULSE 67; PULSE 69; PULSE 81; PULSE 82; PULSE 84; PULSE 86; O2SAT 90; O2SAT 91; O2SAT 92; O2SAT 93
--- NOTE | 2019-05-31 11:40 | CPS ---
Pt's rests were very brief..approximately 5 seconds per rest.
--- NOTE | 2019-05-31 14:49 | WT_ITS ---
PSN 6 Minute Walk Test - 6 Minute Walk Test 6 Minute Walk Test: 6 Minute Walk Test PSN:6-Minute Walk Test Start: 05/31/19 11:34 Freq: Status: Active Protocol: RESP.6MINW Document 05/31/19 11:00 [facility] (Rec: 05/31/19 11:42 [facility] [id number]) 6 Minute Walk Test Date Performed 05/31/19 Time Performed 11:00 Height 5 ft 8 in Weight: 153.314 kg Weight in Pounds 338.[address]: Elier Khanna Pre-test Oxygen Delivery Method Room Air Pulse Ox (%) 92 Pulse Rate (60-100 beats/min) 67 Dyspnea Lesley Scale (0-10) 0.5 Exertion Lesley Scale (6-20) 6 1st minute Oxygen Delivery Method Room Air Pulse Ox (%) 91 Pulse Rate (60-100 beats/min) 82 2nd minute Oxygen Delivery Method Room Air Pulse Ox (%) 90 Pulse Rate (60-100 beats/min) 81 Number of Rests Taken 1 3rd minute Oxygen Delivery Method Room Air Pulse Ox (%) 91 Pulse Rate (60-100 beats/min) 84 Number of Rests Taken 1 4th minute Oxygen Delivery Method Room Air Pulse Ox (%) 91 Pulse Rate (60-100 beats/min) 86 Number of Rests Taken 1 5th minute Oxygen Delivery Method Room Air Pulse Ox (%) 91 Pulse Rate (60-100 beats/min) 84 Number of Rests Taken 1 6th minute Oxygen Delivery Method Room Air Pulse Ox (%) 90 Pulse Rate (60-100 beats/min) 82 Dyspnea Lesley Scale (0-10) 1 Exertion Lesley Scale (6-20) 13 Post-test Oxygen Delivery Method Room Air Pulse Ox (%) 93 Pulse Rate (60-100 beats/min) 69 Full Laps Walked 7 Partial Lap, Number of Tiles Walked 38 Total Distance Walked (ft) 451 05/31/19 11:40 Cardiopulmonary Services by Aury Wu Pt's rests were very brief..approximately 5 seconds per rest. Initialized on 05/31/19 11:40 - END OF NOTE - Interpretation Interpretation: The patient was able to ambulate only 451 feet over the course of 6 minutes on room air with no assistive devices. The patient was noted to have a decreased baseline saturation of 92% and desaturated as low as 90%. No significant tachycardia was noted. Patient did take for breaks during testing. These findings are consistent with a musculoskeletal limitation exercise tolerance. - Recommendations Recommendations: No supplemental oxygen is indicated at this time. However, patient will need to be followed closely given baseline desaturation.
== END ==
PROVIDERS: PCP Family Medicine; Referring Provider Internal Medicine Cardiovascular Disease; Visit Provider Internal Medicine Cardiovascular Disease
DX: I50.9 Heart failure, unspecified (principal); R09.02 Hypoxemia
CPT/HCPCS: 94618

== ENCOUNTER 2019-06-09 11:16 | Outpatient (RCR) | payer MEDICARE, SELFPAY ==
[2019-03-20 14:51] VITALS: BMI 51.3
[2019-05-15 11:24] VITALS: BMI 51.8
[2019-06-09 12:23] LABS: International Normalized Ratio 1.6; Prothrombin Time (Protime)PT. 19.2 SECONDS (11.7-14.9)
[2019-06-09 12:43] LABS: Anion Gap 7 (5-15); BUN 38 mg/dL (7-18); BUN/Creat Ratio 16.6 RATIO (10-20); Calcium,Total 9.2 mg/dL (8.5-10.1); Chloride 96 mmol/L (98-107); Creatinine, Serum 2.29 mg/dL (0.70-1.30); EST Glomerular Filtration Rate 31 mL/min (>60); Est Glom Filt Rate - Afr Amer 38 mL/min (>60); Glucose 129 mg/dL (74-106); Magnesium 2.4 mg/dL (1.6-2.6); Potassium 3.9 mmol/L (3.5-5.1); Sodium Level 134 mmol/L (136-145); T4 Free Direct 1.32 ng/dL (0.76-1.46); Thyroid Stim Hormone (TSH) 3.17 uIU/mL (0.358-3.74)
== END 2019-06-09 18:00 | disposition home or self-care (01) ==
LOC: LAB 11:16
PROVIDERS: Family Provider Family Medicine; PCP Family Medicine; Referring Provider Internal Medicine Cardiovascular Disease; Visit Provider Internal Medicine Cardiovascular Disease
DX: I48.91 Unspecified atrial fibrillation (principal); I27.29 Other secondary pulmonary hypertension; Z79.01 Long term (current) use of anticoagulants
CPT/HCPCS: 36415; 80048; 83735; 84439; 84443; 85610

== ENCOUNTER 2019-07-10 13:24 | Outpatient (RCR) | payer MEDICARE, SELFPAY ==
[2019-05-15 11:24] VITALS: BMI 51.8
[2019-06-16 16:40] LABS: International Normalized Ratio 1.7; Prothrombin Time (Protime)PT. 19.5 SECONDS (11.7-14.9)
[2019-06-26 16:22] LABS: International Normalized Ratio 1.8; Prothrombin Time (Protime)PT. 20.5 SECONDS (11.7-14.9)
[2019-07-10 15:28] LABS: Prothrombin Time (Protime)PT. 22.5 SECONDS (11.7-14.9)
== END 2019-07-10 18:00 | disposition home or self-care (01) ==
LOC: LAB 13:24
PROVIDERS: Family Provider Family Medicine; PCP Family Medicine; Referring Provider Internal Medicine Cardiovascular Disease; Visit Provider Internal Medicine Cardiovascular Disease
DX: I48.91 Unspecified atrial fibrillation (principal); I27.29 Other secondary pulmonary hypertension; Z79.01 Long term (current) use of anticoagulants
CPT/HCPCS: 36415; 85610

== ENCOUNTER 2019-07-18 10:32 | Outpatient (RCR) | payer MEDICARE, SELFPAY ==
[2019-05-15 11:24] VITALS: BMI 51.8
[2019-07-18 11:34] LABS: International Normalized Ratio 2.4; Prothrombin Time (Protime)PT. 25.4 SECONDS (11.7-14.9)
[2019-07-31 13:20] LABS: International Normalized Ratio 2.7; Prothrombin Time (Protime)PT. 28.6 SECONDS (11.7-14.9)
[2019-07-31 13:33] LABS: Anion Gap 9 (5-15); BUN 50 mg/dL (7-18); BUN/Creat Ratio 20.2 RATIO (10-20); Calcium,Total 9.5 mg/dL (8.5-10.1); Chloride 88 mmol/L (98-107); Creatinine, Serum 2.47 mg/dL (0.70-1.30); EST Glomerular Filtration Rate 28 mL/min (>60); Est Glom Filt Rate - Afr Amer 34 mL/min (>60); Glucose 203 mg/dL (74-106); Potassium 2.9 mmol/L (3.5-5.1); Sodium Level 132 mmol/L (136-145)
== END 2019-08-10 18:00 | disposition home or self-care (01) ==
LOC: LAB 10:32
PROVIDERS: Family Provider Family Medicine; PCP Family Medicine; Referring Provider Internal Medicine Cardiovascular Disease; Visit Provider Internal Medicine Cardiovascular Disease
DX: I48.91 Unspecified atrial fibrillation (principal); N18.3 Chronic kidney disease, stage 3 (moderate); I27.29 Other secondary pulmonary hypertension; Z79.01 Long term (current) use of anticoagulants
CPT/HCPCS: 36415; 80048; 85610

== ENCOUNTER 2019-08-08 04:18 | Inpatient (IN) | payer MEDICARE, SELFPAY ==
[2019-05-15 11:24] VITALS: BMI 51.8
[2019-08-08] VITALS (26 sets, daily range): BP systolic 83–135; BP diastolic 50–84; PULSE 52–596; RESP 12–22; TEMP 35.8–37.1; O2SAT 86–97; BMI 49.6; BMI 48.8
--- NOTE | 2019-08-08 04:37 | RAD_ITS ---
STUDY: X-RAY CHEST REASON FOR EXAM: Male, 59 years old. Cough, shortness of breath. TECHNIQUE: AP portable chest. COMPARISON: October 21, 2019. FINDINGS: Moderate cardiomegaly. No focal infiltrates or effusions. Bilateral minimal linear subsegmental atelectasis or fibrosis. No pneumothorax. Sternal wires and surgical clips. Right internal jugular central line tip in the upper superior vena cava. No pneumothorax. Osseous structures are unchanged. There is no demonstrated abnormality of the visualized soft tissue structures of the upper abdomen. RAD/Chest 1 View (Portable) IMPRESSION: Stable cardiomegaly. Electronically Signed: Shelton Gallegos MD at 5:20 EDT , Service support ,
--- NOTE | 2019-08-08 04:37 | EKG12_ITS ---
Test Reason : COUGH Blood Pressure : / mmHG Vent. Rate : 119 BPM Atrial Rate : 122 BPM P-R Int : 216 ms QRS Dur : 146 ms QT Int : 346 ms P-R-T Axes : 000 156 252 degrees QTc Int : 486 ms Sinus tachycardia with 1st degree A-V block Right bundle branch block T wave abnormality, consider inferolateral ischemia Abnormal ECG Confirmed by SAVANNA SALINAS ([id number]), food editor SUSANA EATON ([id number]) on 08/14/2019 2:50:53 PM Referred By: DC Confirmed By:SAVANNA SALINAS
[2019-08-08 04:50] LABS: Absolute Lymphocyte Count 1.59 X10^3/uL (0.83-4.51); Absolute Neutrophil Count 8.5 X10^3/uL (2.0-7.7); Basophil# 0.03 X10^3/uL; Basophil% 0.3 % (0-1); Eosinophil# 0.06 X10^3/uL; Eosinophils% 0.5 % (0-5); Hemoglobin 14.5 g/dL (13.0-16.5); Lymphocyte # 1.59 X10^3/ul (4.0); Mean Corp Hgb Conc 31.5 g/dL (32-36); Mean Corpuscular Hgb 27.3 pg (27.0-32.0); Mean Corpuscular Volume 86.6 fL (80-94); Mean Platelet Vol. 8.9 fl (6.2-12.0); Monocyte% 10.5 % (0-10); NRBC Flagged by Analyzer 0 % (0-5); Neutrophil # 8.46 X10^3/uL (2.7-7.7); Neutrophil % 74.3 % (47-70); Platelet Count 204 K/mm3 (150-450); RBC Distribution Width CV 14.9 % (11.6-14.6); RBC Distribution Width SD 47.3 fl (35.1-43.9); Red Blood Count 5.31 M/mm3 (4.6-6.2); White Blood Count 11.4 K/mm3 (4.4-11.0)
[2019-08-08 05:08] LABS: International Normalized Ratio 3.4; Prothrombin Time (Protime)PT. 33.8 SECONDS (11.7-14.9)
--- NOTE | 2019-08-08 05:10 | ED.VISSUMM ---
- ER Visit Summary Date of Service: 08/08/19 Chief Complaint: Cough History of Present Illness: The patient is a 59 M with cough, phlegm, shortness of breath, palpitations, and low oxygen. His symptoms started overnight tonight, and they are getting worse. He had similar symptoms in the past with pneumonia. He denies fevers, chills, shakes, chest pain, GI symptoms, change in taste or smell. He denies travel. He lives with his and son. 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 He has a history of CHF, diabetes, hypertension, hyperlipidemia, pulmonary hypertension, obstructive sleep apnea, atrial fibrillation, and acute kidney injury. He was recently on dialysis, and completed a course. He still has a port in his right chest. He is on Coumadin for his atrial fibrillation. He is not currently on home oxygen. Physical Examination: Afebrile and vital signs unremarkable except for respiratory rate of 21 and a pulse ox of 86% on room air. Patient appears in very mild distress. He is alert and oriented, speaking in full sentences. Heart is a regular. No respiratory distress. Abdomen soft. Trace lower extremity edema, nontender. Skin appears normal. Test Results: EKG shows sinus rhythm at a rate of 119 with nonspecific T wave changes, first-degree AV block, and right bundle branch block pattern. Labs and chest x-ray pending. Emergency Department Course and Treatment: Patient was placed on 3 L nasal cannula and his pulse ox was 97%. He was placed on the monitor. Work-up as above. I spoke with Vlad at the [facility] who approved COVID-19 testing. Results are pending. White count 11.4, sodium 126, potassium 1.9, chloride 68, CO2 greater than 45, glucose 303, BUN 77, creatinine 2.79. INR 3.4. Troponin normal. BNP 62. Viral testing is pending. Magnesium is pending. Chest x-ray showed stable enlarged cardiac silhouette. Patient is stable on reevaluation on nasal cannula. He will need admission for hypoxia and hypokalemia. He had a low probability VQ scan in April. His INR is therapeutic. I have no suspicion for PE at this time. This may be a viral illness still, but I have low suspicion for COVID-19. Testing is pending. I started replacement with potassium. Magnesium is pending. Hospitalist was contacted and will admit to ICU. Treatment Plan: As above Disposition: Admit to ICU Impression: Hypoxic respiratory failure, hypokalemia, chronic kidney disease This note was generated with joblocal dictation software. It may contain incorrect words, spelling, and punctuation that were not noted in review of the chart prior to signing ED Disposition - Plan for ED Patient: Referrals: Francisco Alcazar MD [Primary Care Provider] -
[2019-08-08 05:20] LABS: BNP,B-Type NATRIURETIC PEPTIDE 62.1 pg/mL (0-100)
[2019-08-08 05:36] LABS: BUN 77 mg/dL (7-18); BUN/Creat Ratio 27.6 RATIO (10-20); Calcium,Total 9.6 mg/dL (8.5-10.1); Carbon Dioxide > 45.0 mmol/L (21.0-32.0); Chloride 68 mmol/L (98-107); Creatinine, Serum 2.79 mg/dL (0.70-1.30); EST Glomerular Filtration Rate 25 mL/min (>60); Est Glom Filt Rate - Afr Amer 30 mL/min (>60); Glucose 303 mg/dL (74-106); Potassium 1.9 mmol/L (3.5-5.1); Sodium Level 126 mmol/L (136-145)
[2019-08-08 05:49] LABS: Magnesium 2.8 mg/dL (1.6-2.6)
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
[2019-08-08] MEDS: Potassium Chloride 10mEq/100mL 10 MEQ/100 ML IV.SOLN. 100 MEQ IV BOLUS ×7 (06:43→22:57)
--- NOTE | 2019-08-08 06:45 | NURSING ---
ICU 4 SOB ERASMO
[2019-08-08 09:24] LABS: BUN 74 mg/dL (7-18); BUN/Creat Ratio 28.9 RATIO (10-20); Calcium,Total 9.4 mg/dL (8.5-10.1); Carbon Dioxide > 45.0 mmol/L (21.0-32.0); Chloride 70 mmol/L (98-107); Creatinine, Serum 2.56 mg/dL (0.70-1.30); EST Glomerular Filtration Rate 27 mL/min (>60); Est Glom Filt Rate - Afr Amer 33 mL/min (>60); Estimated Creatinine Clearance 29.32 ml/min; Glucose 242 mg/dL (74-106); Potassium 1.9 mmol/L (3.5-5.1); Sodium Level 131 mmol/L (136-145)
[2019-08-08] MEDS: 0.9% Normal Saline 1,000 ML 50 ML IV (10:00)
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
[2019-08-08] MEDS: Insulin Lispro 100 UNIT/ML INSULN.PEN SC ×3 (11:15→21:21)
[2019-08-08 11:16] LABS: Bedside Glucose 221 mg/dL (70-110)
[2019-08-08] MEDS: 0.9% Saline Lock 10 ML Syringe IV ×2 (11:45→16:25)
--- NOTE | 2019-08-08 13:17 | PN_ITS ---
Reason for Visit: hypokalemia Subjective: Feeling better. No further palpitations. Vitals/I&O's: Vital Signs Temp Pulse Resp BP Pulse Ox 36.1 C L 59 L 16 102/66 96 08/08/19 08:24 08/08/19 11:23 08/08/19 10:30 08/08/19 11:23 08/08/19 10:30 Oxygen Flow Rate (L/min) 1 Oxygen Delivery Method Nasal Cannula Weight: 145.7 kg Body Mass Index (BMI) 48.8 Finger Stick Blood Glucose 479 Intake and Output for Last 24 Hours 08/06/19 08/07/19 08/08/19 23:59 23:59 23:59 Intake Total 200 / 200 Balance 200 / 200 General: Alert, No apparent distress HEENT: Atraumatic, Normocephalic Oral: Moist Mucosa, No Gingival or Mucosal Lesions/ Ulcerations Neck: No Nodes, Thyroid Normal Size and Texture Lungs: Clear to auscultation, Normal air movement, No rhonchi, No wheeze, No rales Cardiovascular: Regular rate, Regular Rhythm, Normal S1, Normal S2 Abdomen: Bowel Sounds Present, Soft, Non Tender, Non-Distended, No Hepato- splenomegaly Extremities: No edema, No Calf Tenderness Skin: No rashes, No breakdown Psych/Mental Status: Normal Affect, Appropriate Microbiology Past 72 Hours 08/08/19 04:35 Mucosa - Nasopharyngeal Respiratory Panel (PCR) - Final Laboratory Results 08/08/19 04:30: WBC 11.4 H, RBC 5.31, Hgb 14.5, Hct 46.0, MCV 86.6, MCH 27.3, MCHC 31.5 L, RDW Std Deviation 47.3 H, RDW Coeff of Janiya 14.9 H, Plt Count 204, MPV 8.9, Immature Gran % (Auto) 0.400, Neut % (Auto) 74.3 H, Lymph % (Auto) 14.0 L, [place] % (Auto) 10.5 H, Eos % (Auto) 0.5, Baso % (Auto) 0.3, Absolute Neuts (auto) 8.5 H, Absolute Lymphs (auto) 1.59, Nucleated RBC % 0 08/08/19 04:30: PT 33.8 H, INR 3.4 08/08/19 04:30: Sodium 126 L, Potassium 1.9 L*, Chloride 68 L*, Carbon Dioxide > 45.0 H*, Anion Gap TNP, BUN 77 H, Creatinine 2.79 H, Estim Creat Clear Calc 26.90, Est GFR (MDRD) Af Amer 30 L, Est GFR (MDRD) Non-Af 25 L, BUN/Creatinine Ratio 27.6 H, Glucose 303 H, Calcium 9.6, Troponin I < 0.015 08/08/19 04:30: B-Natriuretic Peptide 62.1 08/08/19 04:30: Magnesium 2.8 H 08/08/19 04:35: COVID-19 ([facility]) Pending 08/08/19 08:50: Sodium 131 L, Potassium 1.9 L*, Chloride 70 L*, Carbon Dioxide > 45.0 H*, Anion Gap TNP, BUN 74 H, Creatinine 2.56 H, Estim Creat Clear Calc 29.32, Est GFR (MDRD) Af Amer 33 L, Est GFR (MDRD) Non-Af 27 L, BUN/Creatinine Ratio 28.9 H, Glucose 242 H, Calcium 9.4 08/08/19 11:11: POC Glucose 221 H Current Medications Amiodarone HCl (Cordarone) 200 mg PO BID [facility] Last Admin: 08/08/19 11:23 Dose: Not Given Documented by: Atorvastatin Calcium (Lipitor) 20 mg PO QHS [facility] Dextrose (D50w Syringe) 0 gm IV X1 PRN; Protocol PRN Reason: Hypoglycemia Glucagon () 1 mg IM .X1 PRN PRN Reason: Hypoglycemia Guaifenesin (Mucinex) 1,200 mg PO BID [facility] Sodium Chloride () 1,000 mls @ 50 mls/hr IV .Q20H [facility] Last Admin: 08/08/19 10:00 Dose: 50 mls/hr Documented by: Sodium Chloride () 250 mls @ 15 mls/hr IV .[id number] PRN PRN Reason: Saline Flush Sodium Chloride () 250 mls @ 15 mls/hr IV .[id number] PRN PRN Reason: Additional IVPB Infusion Insulin Glargine (Lantus ([facility])) 40 units SC BID [facility] Last Admin: 08/08/19 11:16 Dose: 40 units Documented by: Insulin Human Lispro (Humalog Kwikpen ([facility])) 0 unit SC ACHS [facility]; Protocol Last Admin: 08/08/19 11:15 Dose: 4 units Documented by: Metoprolol Succinate (Toprol Xl (Beta Rakesh)) 50 mg PO DAILY [facility] Last Admin: 08/08/19 11:23 Dose: Not Given Documented by: Sodium Chloride () 10 - 40 ml IV UD PRN PRN Reason: SALINE FLUSH Last Admin: 08/08/19 11:45 Dose: 10 ml Documented by: Warfarin Sodium (Coumadin (Pbkc)) 2.5 mg PO TU [facility]; Protocol Warfarin Sodium (Coumadin (Pb[facility])) 5 mg PO SUWETHFRSA [facility]; Protocol STROKE Vital Signs/Narrative: Vital Signs Pulse Resp BP BP Pulse Ox 08/08/19 11:23 59 L 102/66 08/08/19 10:30 58 L 16 83/58 L 96 08/08/19 10:00 58 L 18 111/80 97 08/08/19 09:45 54 L 18 105/50 L 95 08/08/19 09:30 52 L 17 135/62 H 94 Medical Necessity - Tobacco Use Smoking Status: Former smoker Assessment/Plan All Active Problems (Last Reviewed 05/15/19 @ 11:25 by Xin Andres) Shortness of breath (Acute) MOUNA (acute kidney injury) (Acute) Acute respiratory failure (Resolved) Pneumonia, community acquired (Resolved) Sepsis (Resolved) 1. severe hypokalemia: 2/2 diuretics with intermittent use of K replacement. Continue with replacement. Recheck. Magnesium not low 2. 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 on IVF 3. Acute hypoxic respiratory insufficiency: improved. CXR unremarkable. COVID-19 test pending. no PNA on CXR 4. DM2: on glargine and SSI 5. afib: INR supratherpuetic. hold warfarin. resume once less than or equal to 3. Continue amiodarone and metoprolol succinate 6. VTE prophylaxis: not indicated as already anticoagulated. Procedures: Other Procedure - See Report - non-billable rounding as pt seen after midnight.
--- NOTE | 2019-08-08 13:56 | CASEMGMT ---
ROBERTO BURGER assessment: Phone interview with patient for initial transition planning/care coordination assessment. ROBERTO BURGER introduced self and role at [facility] [place], pt voices understanding and consents to assessment at this time. Pt is A/Ox4 at this time and answers all questions appropriately at this time. Care providers, pharmacy, and demographics verified at this time. Presentation: Cough, SOB-hx afib Admitting dx: SOB-COVID pending PCP: [facility] Specialists: Jey cardio; Mickey nephbecca Preferred Pharmacy: [facility] Insurance: MMOM Prescription Benefit: MMOMCR Living Will/HPOA: Pt states does not have LW/HPOA but would like AD info at this time. LNOK: Zina Torres, Living Arrangements: Pt states lives with in 2 story home with bathroom on 2nd floor and states no concerns at home at this time. Pt states is independent with ADL's. Transportation: Pt states drives self and states transportation concerns at this time. DME/HHC: Pt states has a walker and cpap thru [facility] but states never tranferred over to [facility] officially. Pt states does where his cpap. Pt states has had HHC in the past and has been to [facility] in the past. Pt states no concerns with going home at time of discharge. Pt states does not smoke cigarettes and drinks ETOH rarely per pt. Pt states no further concerns/needs at this time. CM to follow for any further discharge planning/needs. Advised pt to ask for CM if any further questions/concerns/needs arise, voices understanding. Pt Goal: Home Plan[place] ROBERTO BURGER
[2019-08-08] MEDS: guaiFENesin 1,200 MG Tablet 1200 MG PO ×2 (16:21→21:19)
[2019-08-08 16:25] LABS: Bedside Glucose 286 mg/dL (70-110)
[2019-08-08 17:37] LABS: BUN 75 mg/dL (7-18); BUN/Creat Ratio 27.5 RATIO (10-20); Calcium,Total 9.3 mg/dL (8.5-10.1); Carbon Dioxide > 45.0 mmol/L (21.0-32.0); Chloride 72 mmol/L (98-107); Creatinine, Serum 2.73 mg/dL (0.70-1.30); EST Glomerular Filtration Rate 25 mL/min (>60); Est Glom Filt Rate - Afr Amer 31 mL/min (>60); Estimated Creatinine Clearance 27.49 ml/min; Glucose 299 mg/dL (74-106); Potassium 2.3 mmol/L (3.5-5.1); Sodium Level 131 mmol/L (136-145)
[2019-08-08] MEDS: Atorvastatin Calcium 20 MG Tablet PO (21:19)
[2019-08-08] MEDS: Amiodarone 200 MG Tablet PO (21:20)
[2019-08-08 21:40] LABS: Bedside Glucose 242 mg/dL (70-110)
[2019-08-09] VITALS (13 sets, daily range): BP systolic 108–149; BP diastolic 50–82; PULSE 57–95; RESP 16–18; TEMP 35.6–36.8; O2SAT 92–98
[2019-08-09] MEDS: 0.9% Saline Lock 10 ML Syringe IV ×5 (00:08→21:58)
[2019-08-09 00:31] LABS: BUN 75 mg/dL (7-18); BUN/Creat Ratio 28.4 RATIO (10-20); Calcium,Total 9.1 mg/dL (8.5-10.1); Chloride 76 mmol/L (98-107); Creatinine, Serum 2.64 mg/dL (0.70-1.30); EST Glomerular Filtration Rate 26 mL/min (>60); Est Glom Filt Rate - Afr Amer 32 mL/min (>60); Estimated Creatinine Clearance 28.43 ml/min; Glucose 243 mg/dL (74-106); Potassium 2.8 mmol/L (3.5-5.1); Sodium Level 131 mmol/L (136-145)
[2019-08-09 00:32] LABS: Carbon Dioxide > 45.0 mmol/L (21.0-32.0)
--- NOTE | 2019-08-09 00:38 | NURSING ---
pt placed on home CPAP at this time
--- NOTE | 2019-08-09 03:51 | NURSING ---
Addendum entered by Carleen Wynn 08/09/19 03:51: removed, remains at bedside Original Note: pt states he no longer wants to wear CPAP
[2019-08-09 05:07] LABS: Absolute Lymphocyte Count 1.23 X10^3/uL (0.83-4.51); Absolute Neutrophil Count 7.5 X10^3/uL (2.0-7.7); Basophil# 0.03 X10^3/uL; Basophil% 0.3 % (0-1); Eosinophil# 0.21 X10^3/uL; Eosinophils% 2.1 % (0-5); Hematocrit 44.1 % (40-54); Hemoglobin 13.7 g/dL (13.0-16.5); Lymphocyte # 1.23 X10^3/ul (4.0); Mean Corp Hgb Conc 31.1 g/dL (32-36); Mean Corpuscular Hgb 27.2 pg (27.0-32.0); Mean Corpuscular Volume 87.7 fL (80-94); Mean Platelet Vol. 8.5 fl (6.2-12.0); Monocyte# 1.23 X10^3/uL; NRBC Flagged by Analyzer 0 % (0-5); Neutrophil # 7.52 X10^3/uL (2.7-7.7); Neutrophil % 73.4 % (47-70); Platelet Count 183 K/mm3 (150-450); RBC Distribution Width CV 15.3 % (11.6-14.6); RBC Distribution Width SD 48.3 fl (35.1-43.9); Red Blood Count 5.03 M/mm3 (4.6-6.2); White Blood Count 10.2 K/mm3 (4.4-11.0)
[2019-08-09 05:17] LABS: Prothrombin Time (Protime)PT. 39.5 SECONDS (11.7-14.9)
[2019-08-09 05:19] LABS: International Normalized Ratio 4.1
[2019-08-09 05:32] LABS: BUN 75 mg/dL (7-18); BUN/Creat Ratio 29.2 RATIO (10-20); Calcium,Total 9.1 mg/dL (8.5-10.1); Carbon Dioxide > 45.0 mmol/L (21.0-32.0); Chloride 76 mmol/L (98-107); Creatinine, Serum 2.57 mg/dL (0.70-1.30); EST Glomerular Filtration Rate 27 mL/min (>60); Est Glom Filt Rate - Afr Amer 33 mL/min (>60); Glucose 210 mg/dL (74-106); Phosphorus 3.5 mg/dL (2.5-4.9); Potassium 2.4 mmol/L (3.5-5.1); Sodium Level 130 mmol/L (136-145)
[2019-08-09] MEDS: 0.9% Normal Saline 1,000 ML 50 ML IV (06:30)
[2019-08-09] MEDS: Potassium Chloride 10mEq/100mL 10 MEQ/100 ML IV.SOLN. 100 MEQ IV BOLUS ×4 (06:30→11:00)
--- NOTE | 2019-08-09 07:47 | PN_ITS ---
Subjective: Patient did well overnight. Patient was compliant with home LASHAWN therapy. Patient reports good urine output despite lack of Lasix. Patient has been tolerating room air intermittently versus low flow nasal cannula. General: Alert, Oriented x3, Cooperative, No apparent distress, Well developed, Well nourished, - - Morbidly obese. No conversational dyspnea. HEENT: Atraumatic, PERRLA, EOMI, Normocephalic, - - No scleral icterus or injection noted Oral: Moist Mucosa, No Gingival or Mucosal Lesions/ Ulcerations Neck: Supple, No JVD, No Nodes, Trachea Midline Lungs: No rhonchi, No wheeze, No rales, Diminished, - - Symmetric expansion. Cardiovascular: Regular rate, Regular Rhythm, Normal S1, Normal S2, No murmurs, No rub noted, No Gallop Abdomen: Bowel Sounds Present, Soft, Non Tender, Non-Distended Extremities: No clubbing, No cyanosis, Edema Skin: - - No change compared to previous Musculoskeletal: No Tenderness to Palpation of Joints or Extremities Lymphatic: No Cervical, Supraclavicular, or Inguinal Adenopathy Neurological: Cranial nerves II-XII grossly intact, Neuro grossly intact, Motor Exam 5/5 strength throughout Psych/Mental Status: Alert and oriented to time, place, person, mood and affect Vital Signs Temp Pulse Resp BP Pulse Ox 35.6 C L 57 L 18 117/82 H 92 08/09/19 03:31 08/09/19 04:14 08/09/19 03:31 08/09/19 03:31 08/09/19 03:31 Oxygen Flow Rate (L/min) 1 Oxygen Delivery Method Room Air Weight: 146.9 kg Body Mass Index (BMI) 48.8 Finger Stick Blood Glucose 479 Intake and Output for Last 24 Hours 08/07/19 08/08/19 08/09/19 23:59 23:59 23:59 Intake Total 2170 / 2170 220 / 220 Output Total 1625 / 1625 Balance 545 / 545 220 / 220 Labs (Last 48 Hours) 08/08/19 08/08/19 08/08/19 04:30 04:30 04:30 WBC 11.4 H RBC 5.31 Hgb 14.5 Hct 46.0 MCV 86.6 MCH 27.3 MCHC 31.5 L RDW Std Deviation 47.3 H RDW Coeff of Janiya 14.9 H Plt Count 204 MPV 8.9 Immature Gran % (Auto) 0.400 Neut % (Auto) 74.3 H Lymph % (Auto) 14.0 L [place] % (Auto) 10.5 H Eos % (Auto) 0.5 Baso % (Auto) 0.3 Absolute Neuts (auto) 8.5 H Absolute Lymphs (auto) 1.59 Nucleated RBC % 0 PT 33.8 H INR 3.4 Sodium 126 L Potassium 1.9 L* Chloride 68 L* Carbon Dioxide > 45.0 H* Anion Gap TNP BUN 77 H Creatinine 2.79 H Estim Creat Clear Calc 26.90 Est GFR (MDRD) Af Amer 30 L Est GFR (MDRD) Non-Af 25 L BUN/Creatinine Ratio 27.6 H Glucose 303 H Calcium 9.6 Phosphorus Magnesium Troponin I < 0.015 B-Natriuretic Peptide COVID-19 (BROWN) POC Glucose 08/08/19 08/08/19 08/08/19 04:30 04:30 04:35 WBC RBC Hgb Hct MCV MCH MCHC RDW Std Deviation RDW Coeff of Janiya Plt Count MPV Immature Gran % (Auto) Neut % (Auto) Lymph % (Auto) [place] % (Auto) Eos % (Auto) Baso % (Auto) Absolute Neuts (auto) Absolute Lymphs (auto) Nucleated RBC % PT INR Sodium Potassium Chloride Carbon Dioxide Anion Gap BUN Creatinine Estim Creat Clear Calc Est GFR (MDRD) Af Amer Est GFR (MDRD) Non-Af BUN/Creatinine Ratio Glucose Calcium Phosphorus Magnesium 2.8 H Troponin I B-Natriuretic Peptide 62.1 COVID-19 (BR[facility]) Pending POC Glucose 08/08/19 08/08/19 08/08/19 08:50 11:11 16:14 WBC RBC Hgb Hct MCV MCH MCHC RDW Std Deviation RDW Coeff of Janiya Plt Count MPV Immature Gran % (Auto) Neut % (Auto) Lymph % (Auto) [place] % (Auto) Eos % (Auto) Baso % (Auto) Absolute Neuts (auto) Absolute Lymphs (auto) Nucleated RBC % PT INR Sodium 131 L Potassium 1.9 L* Chloride 70 L* Carbon Dioxide > 45.0 H* Anion Gap TNP BUN 74 H Creatinine 2.56 H Estim Creat Clear Calc 29.32 Est GFR (MDRD) Af Amer 33 L Est GFR (MDRD) Non-Af 27 L BUN/Creatinine Ratio 28.9 H Glucose 242 H Calcium 9.4 Phosphorus Magnesium Troponin I B-Natriuretic Peptide COVID-19 ([facility]) POC Glucose 221 H 286 H 08/08/19 08/08/19 08/09/19 16:15 21:16 00:05 WBC RBC Hgb Hct MCV MCH MCHC RDW Std Deviation RDW Coeff of Janiya Plt Count MPV Immature Gran % (Auto) Neut % (Auto) Lymph % (Auto) [place] % (Auto) Eos % (Auto) Baso % (Auto) Absolute Neuts (auto) Absolute Lymphs (auto) Nucleated RBC % PT INR Sodium 131 L 131 L Potassium 2.3 L* 2.8 L Chloride 72 L* 76 L Carbon Dioxide > 45.0 H* > 45.0 H* Anion Gap TNP TNP BUN 75 H 75 H Creatinine 2.73 H 2.64 H Estim Creat Clear Calc 27.49 28.43 Est GFR (MDRD) Af Amer 31 L 32 L Est GFR (MDRD) Non-Af 25 L 26 L BUN/Creatinine Ratio 27.5 H 28.4 H Glucose 299 H 243 H Calcium 9.3 9.1 Phosphorus Magnesium Troponin I B-Natriuretic Peptide COVID-19 (BR[facility]) POC Glucose 242 H 08/09/19 08/09/19 08/09/19 05:00 05:00 05:00 WBC 10.2 RBC 5.03 Hgb 13.7 Hct 44.1 MCV 87.7 MCH 27.2 MCHC 31.1 L RDW Std Deviation 48.3 H RDW Coeff of Janiya 15.3 H Plt Count 183 MPV 8.5 Immature Gran % (Auto) 0.200 Neut % (Auto) 73.4 H Lymph % (Auto) 12.0 L [place] % (Auto) 12.0 H Eos % (Auto) 2.1 Baso % (Auto) 0.3 Absolute Neuts (auto) 7.5 Absolute Lymphs (auto) 1.23 Nucleated RBC % 0 PT 39.5 H INR 4.1 H* Sodium 130 L Potassium 2.4 L* Chloride 76 L Carbon Dioxide > 45.0 H* Anion Gap TNP BUN 75 H Creatinine 2.57 H Estim Creat Clear Calc 29.20 Est GFR (MDRD) Af Amer 33 L Est GFR (MDRD) Non-Af 27 L BUN/Creatinine Ratio 29.2 H Glucose 210 H Calcium 9.1 Phosphorus 3.5 Magnesium 3.0 H Troponin I B-Natriuretic Peptide COVID-19 (BROWN) POC Glucose Microbiology 08/08/19 04:35 Mucosa - Nasopharyngeal Respiratory Panel (PCR) - Final Clinical Impression(s) from Imaging Studies Chest X-Ray 08/08/19 04:37 IMPRESSION: Stable cardiomegaly. Electronically Signed: Shelton Gallegos MD at 5:20 EDT , Service support , Medical Necessity - Tobacco Use Smoking Status: Former smoker Assessment/Plan All Active Problems (Last Reviewed 05/15/19 @ 11:25 by Xin Andres) Shortness of breath (Acute) MOUNA (acute kidney injury) (Acute) Acute respiratory failure (Resolved) Pneumonia, community acquired (Resolved) Sepsis (Resolved) RECOMMENDATIONS: 1. Aggressive potassium supplementation with repeat labs 2. Possibly touch base with nephrology to see if hemodialysis line is required 3. Wean oxygen as tolerated 4. Attempt increasing dietary potassium 5. Continue home LASHAWN therapy 6. Await COVID testing. Agree with discontinuation of antibiotics 7. Hold Coumadin. Would not actively reverse INR IMPRESSIONS: 1. Profound hypokalemia Clinical suspicion for iatrogenic hypokalemia secondary to the use of diuretics without supplemental potassium secondary to inability to swallow. Patient has both p.o. and IV potassium ordered. Will check BMP intermittently. Patient does have an element of renal insufficiency and may correct relatively rapidly. Continue telemetry. Calcium and magnesium are appropriate. 2. Acute hypoxic respiratory insufficiency Patient with significant pulmonary hypertension at baseline. This is complicated by recent acute kidney injury and congestive heart failure. Would not recommend diuretic therapy at this time given level of potassium, but will have to watch closely as patient could develop hypoxia from volume status. Wean oxygen as tolerated. Patient did have a marginal oxygenation on walking oximetry earlier in the year. Once hypokalemia and hyponatremia are addressed, diuretic therapy may be used. 3. Chronic diastolic CHF/hyperlipidemia/hypertension/diabetes/morbid obesity/recent MOUNA Complicates care, management, recovery and prognosis. Okay to continue with baseline medications. Patient is on a diabetic diet. Would not recommend holding basal insulin as patient will be at risk for significant hyperglycemia and given the slow nature this should not affect available potassium acutely. Low clinical suspicion for COVID-19. Test is currently pending. Clinical suspicion for elevated leukocytosis secondary to stress response. Inpatient E&M: 69963 Subs Hosp L3
[2019-08-09] MEDS: Insulin Lispro 100 UNIT/ML INSULN.PEN SC ×4 (08:36→21:59)
[2019-08-09] MEDS: guaiFENesin 1,200 MG Tablet 1200 MG PO ×2 (08:43→22:03)
[2019-08-09] MEDS: Metoprolol(XL)Succ 50 MG Tablet PO (10:10)
[2019-08-09] MEDS: Amiodarone 200 MG Tablet PO ×2 (10:10→22:02)
[2019-08-09 12:46] LABS: Bedside Glucose 230 mg/dL (70-110)
--- NOTE | 2019-08-09 12:56 | EKG12_ITS ---
Test Reason : IRREGULAR Blood Pressure : / mmHG Vent. Rate : 081 BPM Atrial Rate : 060 BPM P-R Int : 000 ms QRS Dur : 140 ms QT Int : 468 ms P-R-T Axes : 012 139 031 degrees QTc Int : 543 ms Sinus rhythm with A-V dissociation and Wide QRS rhythm with Premature supraventricular complexes and Fusion complexes Right bundle branch block Abnormal ECG When compared with ECG of 20-APR-2019 05:49, Wide QRS rhythm has replaced Sinus rhythm Confirmed by SCOTT HAMLIN, PHILLIP ([id number]), technical writer and editor SUSANA EATON ([id number]) on 08/15/2019 11:33:40 AM Referred By: VIET Confirmed By:PHILLIP CHAVEZ MD
--- NOTE | 2019-08-09 12:56 | PCM.PN.HOSP ---
Reason for Visit: hypokalemia Subjective: still with palpitations. still with paroxysms of cough. Vitals/I&O's: Vital Signs Temp Pulse Resp BP Pulse Ox 36.7 C 63 18 108/62 97 08/09/19 09:30 08/09/19 10:10 08/09/19 09:30 08/09/19 09:30 08/09/19 09:30 Oxygen Flow Rate (L/min) 2 Oxygen Delivery Method Nasal Cannula Weight: 146.9 kg Body Mass Index (BMI) 48.8 Finger Stick Blood Glucose 479 Intake and Output for Last 24 Hours 08/07/19 08/08/19 08/09/19 23:59 23:59 23:59 Intake Total 2170 / 2170 520 / 520 Output Total 1625 / 1625 Balance 545 / 545 520 / 520 General: Alert, No apparent distress, - - had a coughing fit while I was in the room. Sats remained well in the 90s while he was doing so. Noted frequent PACs on tele. Neck: No Nodes, Thyroid Normal Size and Texture Lungs: Clear to auscultation, Normal air movement, No rhonchi, No wheeze, No rales Cardiovascular: Regular rate, Regular Rhythm, Normal S1, Normal S2, No murmurs Abdomen: Bowel Sounds Present, Soft, Non Tender, Non-Distended, No Hepato-splenomegaly Extremities: No edema, No Calf Tenderness Skin: No rashes, No breakdown Psych/Mental Status: Normal Affect, Appropriate Microbiology Past 72 Hours 08/08/19 04:35 Mucosa - Nasopharyngeal Respiratory Panel (PCR) - Final Laboratory Results 08/08/19 16:14: POC Glucose 286 H 08/08/19 16:15: Sodium 131 L, Potassium 2.3 L*, Chloride 72 L*, Carbon Dioxide > 45.0 H*, Anion Gap TNP, BUN 75 H, Creatinine 2.73 H, Estim Creat Clear Calc 27.49, Est GFR (MDRD) Af Amer 31 L, Est GFR (MDRD) Non-Af 25 L, BUN/Creatinine Ratio 27.5 H, Glucose 299 H, Calcium 9.3 08/08/19 21:16: POC Glucose 242 H 08/09/19 00:05: Sodium 131 L, Potassium 2.8 L, Chloride 76 L, Carbon Dioxide > 45.0 H*, Anion Gap TNP, BUN 75 H, Creatinine 2.64 H, Estim Creat Clear Calc 28.43, Est GFR (MDRD) Af Amer 32 L, Est GFR (MDRD) Non-Af 26 L, BUN/Creatinine Ratio 28.4 H, Glucose 243 H, Calcium 9.1 08/09/19 05:00: Sodium 130 L, Potassium 2.4 L*, Chloride 76 L, Carbon Dioxide > 45.0 H*, Anion Gap TNP, BUN 75 H, Creatinine 2.57 H, Estim Creat Clear Calc 29.20, Est GFR (MDRD) Af Amer 33 L, Est GFR (MDRD) Non-Af 27 L, BUN/Creatinine Ratio 29.2 H, Glucose 210 H, Calcium 9.1, Phosphorus 3.5, Magnesium 3.0 H 08/09/19 05:00: WBC 10.2, RBC 5.03, Hgb 13.7, Hct 44.1, MCV 87.7, MCH 27.2, MCHC 31.1 L, RDW Std Deviation 48.3 H, RDW Coeff of Janiya 15.3 H, Plt Count 183, MPV 8.5, Immature Gran % (Auto) 0.200, Neut % (Auto) 73.4 H, Lymph % (Auto) 12.0 L, [place] % (Auto) 12.0 H, Eos % (Auto) 2.1, Baso % (Auto) 0.3, Absolute Neuts (auto) 7.5, Absolute Lymphs (auto) 1.23, Nucleated RBC % 0 08/09/19 05:00: PT 39.5 H, INR 4.1 H* 08/09/19 12:00: Sodium Pending, Potassium Pending, Chloride Pending, Carbon Dioxide Pending, Anion Gap Pending, BUN Pending, Creatinine Pending, Est GFR (MDRD) Af Amer Pending, Est GFR (MDRD) Non-Af Pending, BUN/Creatinine Ratio Pending, Glucose Pending, Calcium Pending 08/09/19 12:41: POC Glucose 230 H Current Medications Amiodarone HCl (Cordarone) 200 mg PO BID [facility] Last Admin: 08/09/19 10:10 Dose: 200 mg Documented by: Atorvastatin Calcium (Lipitor) 20 mg PO QHS [facility] Last Admin: 08/08/19 21:19 Dose: 20 mg Documented by: Dextrose (D50w Syringe) 0 gm IV X1 PRN; Protocol PRN Reason: Hypoglycemia Glucagon () 1 mg IM .X1 PRN PRN Reason: Hypoglycemia Guaifenesin (Mucinex) 1,200 mg PO BID [facility] Last Admin: 08/09/19 08:43 Dose: 1,200 mg Documented by: Sodium Chloride () 1,000 mls @ 50 mls/hr IV .Q20H [facility] Last Admin: 08/09/19 06:30 Dose: 50 mls/hr Documented by: Sodium Chloride () 250 mls @ 15 mls/hr IV .[id number] PRN PRN Reason: Saline Flush Sodium Chloride () 250 mls @ 15 mls/hr IV .[id number] PRN PRN Reason: Additional IVPB Infusion Insulin Glargine (Lantus ([facility])) 40 units SC BID [facility] Last Admin: 08/09/19 08:40 Dose: 40 units Documented by: Insulin Human Lispro (Humalog Kwikpen ([facility])) 0 unit SC ACHS [facility]; Protocol Last Admin: 08/09/19 12:54 Dose: 4 units Documented by: Metoprolol Succinate (Toprol Xl (Beta Rakesh)) 50 mg PO DAILY [facility] Last Admin: 08/09/19 10:10 Dose: 50 mg Documented by: Potassium Chloride (K-Dur) 60 meq PO X1 ONE Stop: 08/09/19 17:01 Sodium Chloride () 10 - 40 ml IV UD PRN PRN Reason: SALINE FLUSH Last Admin: 08/09/19 06:31 Dose: 10 ml Documented by: STROKE Vital Signs/Narrative: Vital Signs Temp Pulse Resp BP Pulse Ox 08/09/19 10:10 63 08/09/19 09:30 36.7 C 77 18 108/62 97 Medical Necessity - Tobacco Use Smoking Status: Former smoker Assessment/Plan All Active Problems (Last Reviewed 05/15/19 @ 11:25 by Xin Andres) Shortness of breath (Acute) MOUNA (acute kidney injury) (Acute) Acute respiratory failure (Resolved) Pneumonia, community acquired (Resolved) Sepsis (Resolved) 1. severe hypokalemia: 2/2 diuretics with intermittent use of K replacement. Continue with replacement. Recheck. Magnesium not low 2. 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 on IVF. No longer on HD, but still has HD catheter. Depending on clinical course, but improves function, will discuss with nephrology to see how long catheter would need to remain in place or could be removed. 3. Acute hypoxic respiratory insufficiency: improved. CXR unremarkable. COVID-19 test pending. no PNA on CXR 4. DM2: on glargine and SSI 5. afib: INR supratherpuetic. hold warfarin. resume once less than or equal to 3. Continue amiodarone and metoprolol succinate 6. VTE prophylaxis: not indicated as already anticoagulated. Inpatient E&M: [id number] Subs Hosp L2
[2019-08-09 13:26] LABS: BUN 70 mg/dL (7-18); Calcium,Total 9.3 mg/dL (8.5-10.1); Carbon Dioxide > 45.0 mmol/L (21.0-32.0); Chloride 80 mmol/L (98-107); EST Glomerular Filtration Rate 28 mL/min (>60); Est Glom Filt Rate - Afr Amer 34 mL/min (>60); Estimated Creatinine Clearance 30.02 ml/min; Glucose 242 mg/dL (74-106); Potassium 2.9 mmol/L (3.5-5.1); Sodium Level 131 mmol/L (136-145)
[2019-08-09 17:36] LABS: Bedside Glucose 304 mg/dL (70-110)
[2019-08-09] MEDS: Atorvastatin Calcium 20 MG Tablet PO (22:03)
[2019-08-09 23:06] LABS: Bedside Glucose 201 mg/dL (70-110)
[2019-08-10] VITALS (9 sets, daily range): BP systolic 113–129; BP diastolic 56–67; PULSE 61–119; RESP 16–18; TEMP 36.1–36.7; O2SAT 91–98
[2019-08-10] MEDS: Insulin Lispro 100 UNIT/ML INSULN.PEN SC ×2 (07:10→12:28)
[2019-08-10 07:21] LABS: Bedside Glucose 173 mg/dL (70-110)
[2019-08-10 07:56] LABS: Anion Gap 0 (5-15); BUN 60 mg/dL (7-18); BUN/Creat Ratio 29.1 RATIO (10-20); Calcium,Total 9.3 mg/dL (8.5-10.1); Chloride 91 mmol/L (98-107); Creatinine, Serum 2.06 mg/dL (0.70-1.30); EST Glomerular Filtration Rate 35 mL/min (>60); Est Glom Filt Rate - Afr Amer 42 mL/min (>60); Estimated Creatinine Clearance 36.43 ml/min; Glucose 163 mg/dL (74-106); Potassium 3.3 mmol/L (3.5-5.1); Sodium Level 135 mmol/L (136-145)
--- NOTE | 2019-08-10 08:38 | PN_ITS ---
Subjective: Patient transferred out of the intensive care unit yesterday. Patient states he has had some tachycardia this morning, but overall feels well. Patient has been tolerating room air and p.o. diet. General: Alert, Oriented x3, Cooperative, No apparent distress, - - Morbidly obese. Speaking in full sentences. HEENT: Atraumatic, PERRLA, EOMI, Normocephalic, - - No scleral icterus or injection noted Oral: Moist Mucosa, No Gingival or Mucosal Lesions/ Ulcerations Neck: Supple, No Nodes, Trachea Midline, JVD, Right Lungs: No wheeze, Diminished, Rales - Right base, - - Symmetric expansion Cardiovascular: Regular rate, Regular Rhythm, Normal S1, Normal S2, No murmurs, No rub noted, No Gallop Abdomen: Bowel Sounds Present, Soft, Non Tender, Non-Distended, Obese Extremities: No cyanosis, Capillary Refill Less than 3 Seconds, Edema Skin: - - No significant change compared to previous Musculoskeletal: No Tenderness to Palpation of Joints or Extremities Lymphatic: No Cervical, Supraclavicular, or Inguinal Adenopathy Neurological: Cranial nerves II-XII grossly intact, Neuro grossly intact, Motor Exam 5/5 strength throughout Psych/Mental Status: Alert and oriented to time, place, person, mood and affect Vital Signs Temp Pulse Resp BP Pulse Ox 36.7 C 64 18 129/63 H 98 08/10/19 03:30 08/10/19 04:00 08/10/19 03:30 08/10/19 03:30 08/10/19 03:30 Oxygen Flow Rate (L/min) 2 Oxygen Delivery Method Room Air Weight: 147 kg Body Mass Index (BMI) 48.8 Finger Stick Blood Glucose 479 Intake and Output for Last 24 Hours 08/08/19 08/09/19 08/10/19 23:59 23:59 23:59 Intake Total 2170 / 2170 2200 / 2200 220 / 220 Output Total 1625 / 1625 650 / 650 Balance 545 / 545 1550 / 1550 220 / 220 Labs (Last 48 Hours) 08/08/19 08/08/19 08/08/19 04:30 04:35 08:50 WBC RBC Hgb Hct MCV MCH MCHC RDW Std Deviation RDW Coeff of Janiya Plt Count MPV Immature Gran % (Auto) Neut % (Auto) Lymph % (Auto) [place] % (Auto) Eos % (Auto) Baso % (Auto) Absolute Neuts (auto) Absolute Lymphs (auto) Nucleated RBC % PT INR Sodium 126 L 131 L Potassium 1.9 L* 1.9 L* Chloride 68 L* 70 L* Carbon Dioxide > 45.0 H* > 45.0 H* Anion Gap TNP TNP BUN 77 H 74 H Creatinine 2.79 H 2.56 H Estim Creat Clear Calc 26.90 29.32 Est GFR (MDRD) Af Amer 30 L 33 L Est GFR (MDRD) Non-Af 25 L 27 L BUN/Creatinine Ratio 27.6 H 28.9 H Glucose 303 H 242 H Calcium 9.6 9.4 Phosphorus Magnesium Troponin I < 0.015 COVID-19 ([facility]) Not Detected POC Glucose 08/08/19 08/08/19 08/08/19 11:11 16:14 16:15 WBC RBC Hgb Hct MCV MCH MCHC RDW Std Deviation RDW Coeff of Janiya Plt Count MPV Immature Gran % (Auto) Neut % (Auto) Lymph % (Auto) [place] % (Auto) Eos % (Auto) Baso % (Auto) Absolute Neuts (auto) Absolute Lymphs (auto) Nucleated RBC % PT INR Sodium 131 L Potassium 2.3 L* Chloride 72 L* Carbon Dioxide > 45.0 H* Anion Gap TNP BUN 75 H Creatinine 2.73 H Estim Creat Clear Calc 27.49 Est GFR (MDRD) Af Amer 31 L Est GFR (MDRD) Non-Af 25 L BUN/Creatinine Ratio 27.5 H Glucose 299 H Calcium 9.3 Phosphorus Magnesium Troponin I COVID-19 (BROWN) POC Glucose 221 H 286 H 08/08/19 08/09/19 08/09/19 21:16 00:05 05:00 WBC RBC Hgb Hct MCV MCH MCHC RDW Std Deviation RDW Coeff of Janiya Plt Count MPV Immature Gran % (Auto) Neut % (Auto) Lymph % (Auto) [place] % (Auto) Eos % (Auto) Baso % (Auto) Absolute Neuts (auto) Absolute Lymphs (auto) Nucleated RBC % PT INR Sodium 131 L 130 L Potassium 2.8 L 2.4 L* Chloride 76 L 76 L Carbon Dioxide > 45.0 H* > 45.0 H* Anion Gap TNP TNP BUN 75 H 75 H Creatinine 2.64 H 2.57 H Estim Creat Clear Calc 28.43 29.20 Est GFR (MDRD) Af Amer 32 L 33 L Est GFR (MDRD) Non-Af 26 L 27 L BUN/Creatinine Ratio 28.4 H 29.2 H Glucose 243 H 210 H Calcium 9.1 9.1 Phosphorus 3.5 Magnesium 3.0 H Troponin I COVID-19 (BR[facility]) POC Glucose 242 H 08/09/19 08/09/19 08/09/19 05:00 05:00 12:00 WBC 10.2 RBC 5.03 Hgb 13.7 Hct 44.1 MCV 87.7 MCH 27.2 MCHC 31.1 L RDW Std Deviation 48.3 H RDW Coeff of Janiya 15.3 H Plt Count 183 MPV 8.5 Immature Gran % (Auto) 0.200 Neut % (Auto) 73.4 H Lymph % (Auto) 12.0 L [place] % (Auto) 12.0 H Eos % (Auto) 2.1 Baso % (Auto) 0.3 Absolute Neuts (auto) 7.5 Absolute Lymphs (auto) 1.23 Nucleated RBC % 0 PT 39.5 H INR 4.1 H* Sodium 131 L Potassium 2.9 L Chloride 80 L Carbon Dioxide > 45.0 H* Anion Gap TNP BUN 70 H Creatinine 2.50 H Estim Creat Clear Calc 30.02 Est GFR (MDRD) Af Amer 34 L Est GFR (MDRD) Non-Af 28 L BUN/Creatinine Ratio 28.0 H Glucose 242 H Calcium 9.3 Phosphorus Magnesium Troponin I COVID-19 ([facility]) POC Glucose 08/09/19 08/09/19 08/09/19 12:41 16:35 21:56 WBC RBC Hgb Hct MCV MCH MCHC RDW Std Deviation RDW Coeff of Janiya Plt Count MPV Immature Gran % (Auto) Neut % (Auto) Lymph % (Auto) [place] % (Auto) Eos % (Auto) Baso % (Auto) Absolute Neuts (auto) Absolute Lymphs (auto) Nucleated RBC % PT INR Sodium Potassium Chloride Carbon Dioxide Anion Gap BUN Creatinine Estim Creat Clear Calc Est GFR (MDRD) Af Amer Est GFR (MDRD) Non-Af BUN/Creatinine Ratio Glucose Calcium Phosphorus Magnesium Troponin I COVID-19 ([facility]) POC Glucose 230 H 304 H 201 H 08/10/19 08/10/19 08/10/19 07:06 07:16 07:16 WBC RBC Hgb Hct MCV MCH MCHC RDW Std Deviation RDW Coeff of Janiya Plt Count MPV Immature Gran % (Auto) Neut % (Auto) Lymph % (Auto) [place] % (Auto) Eos % (Auto) Baso % (Auto) Absolute Neuts (auto) Absolute Lymphs (auto) Nucleated RBC % PT Pending INR Pending Sodium 135 L Potassium 3.3 L Chloride 91 L Carbon Dioxide 44.0 H Anion Gap 0 L BUN 60 H Creatinine 2.06 H Estim Creat Clear Calc 36.43 Est GFR (MDRD) Af Amer 42 L Est GFR (MDRD) Non-Af 35 L BUN/Creatinine Ratio 29.1 H Glucose 163 H Calcium 9.3 Phosphorus Magnesium Troponin I COVID-19 ([facility]) POC Glucose 173 H Microbiology 08/08/19 04:35 Mucosa - Nasopharyngeal Respiratory Panel (PCR) - Final Medical Necessity - Tobacco Use Smoking Status: Former smoker Assessment/Plan All Active Problems (Last Reviewed 05/15/19 @ 11:25 by Xin Andres) Shortness of breath (Acute) MOUNA (acute kidney injury) (Acute) Acute respiratory failure (Resolved) Pneumonia, community acquired (Resolved) Sepsis (Resolved) RECOMMENDATIONS: 1. Initiate p.o. potassium and baseline Lasix therapy 2. Possibly touch base with nephrology to see if hemodialysis line is required moving forward 3. Walking oximetry prior to discharge 4. Give additional dose of potassium IV to compensate for slightly low potassium 5. Continue home LASHAWN therapy 6. Hold Coumadin. Would not actively reverse INR IMPRESSIONS: 1. Profound hypokalemia Clinical suspicion for iatrogenic hypokalemia secondary to the use of diuretics without supplemental potassium secondary to inability to swallow. Patient's potassium is only slightly low at this time. Will attempt to reinitiate baseline diuretic therapy in addition to p.o. therapy. Patient will be given an additional dose of IV potassium to compensate for potassium of 3.3. If patient is able to tolerate with acceptable potassium tomorrow, likely okay t o discharge. Alternative would be discharged today with close lab follow-up as an outpatient. 2. Acute hypoxic respiratory insufficiency Patient with significant pulmonary hypertension at baseline. This is complicated by recent acute kidney injury and congestive heart failure. Would not recommend diuretic therapy at this time given level of potassium, but will have to watch closely as patient could develop hypoxia from volume status. Wean oxygen as tolerated. Patient did have a marginal oxygenation on walking oximetry earlier in the year. Patient should have a walking oximetry prior to discharge. Cannot exclude the need for short-term oxygen therapy while fluid status is addressed. 3. Chronic diastolic CHF/hyperlipidemia/hypertension/diabetes/morbid obesity/recent MOUNA Complicates care, management, recovery and prognosis. Okay to continue with baseline medications. Patient is on a diabetic diet. Would not recommend holding basal insulin as patient will be at risk for significant hyperglycemia and given the slow nature this should not affect available potassium acutely. COVID testing was negative. Clinical suspicion for elevated leukocytosis secondary to stress response. Inpatient E&M: [id number] [facility] Hosp L2
[2019-08-10 09:38] LABS: Prothrombin Time (Protime)PT. 36.1 SECONDS (11.7-14.9)
[2019-08-10 09:56] LABS: International Normalized Ratio 3.7
[2019-08-10] MEDS: Metoprolol(XL)Succ 50 MG Tablet PO (10:19)
[2019-08-10] MEDS: guaiFENesin 1,200 MG Tablet 1200 MG PO (10:20)
[2019-08-10] MEDS: Furosemide 40 MG Tablet PO (10:20)
[2019-08-10] MEDS: Amiodarone 200 MG Tablet PO (10:20)
[2019-08-10] MEDS: Potassium Chloride 10mEq/100mL 10 MEQ/100 ML IV.SOLN. 100 MEQ IV BOLUS (10:21)
[2019-08-10] MEDS: 0.9% Saline Lock 10 ML Syringe IV ×2 (10:22→12:32)
--- NOTE | 2019-08-10 11:47 | CASEMGMT ---
Social Work Pt requesting information for advance directives. Information packet made for pt and given to ROBERTO Machuca who will give to pt when he goes in room. Pt can call as outpatient to complete documents. GIANCARLO Broussard
--- NOTE | 2019-08-10 12:08 | NURSING ---
Dr. Soria notified this RN that IV potassium was ordered and that we can run it as slow as we need to. This RN notified patient of same- pt very upset that IV potassium was ordered but agreed initially if ice pack was placed and if IV tubing was taped in the location he specified. Same completed and IV potassium was started at 50cc/hr. Patient called out soon after and states he needs another ice pack that the one he currently has is worthless. Same given and offered to lower rate. Patient states no, I will finish this bag but probably will not take another one. Soon after leaving room heard patient yelling/ screaming from room stating he is in pain. Notified this RN that IV potassium is too painful and he wants it stopped now and will not be taking any more. IV site intact, no redness or abnormality noted. Dr. Soria notified via text and ordered to stop remaining IV doses. Ordered 40meq with lunch
--- NOTE | 2019-08-10 12:54 | DCINST_ITS ---
You will use the following diet at home:: Fiber restricted - 1500 Call your doctor if you observe: Fever of 101 or Higher, Shortness of breath Allergies/Adverse Reactions: Allergies albuterol Adverse Reaction (Verified 08/08/19 04:24) NEEDS FOLLOW-UP increased heart rate. amoxicillin trihydrate [From Augmentin] Adverse Reaction (Verified 03/20/19 15:00) Diarrhea indomethacin [From Indocin] Adverse Reaction (Verified 04/16/19 08:55) Nausea potassium clavulanate [From Augmentin] Adverse Reaction (Verified 03/20/19 15:00) Diarrhea Medications to take at Discharge Atorvastatin Calcium 20 mg PO QHS 04/16/19 Insulin Glargine [Lantus SoloStar Pen] 40 units SUBCUT BID pen 04/28/19 Insulin Lispro [Humalog KwikPen] 5 unit SUBCUT LUNCH insuln.pen 04/28/19 Insulin Lispro [Humalog KwikPen] 6 unit SUBCUT DINNER insuln.pen 04/28/19 Insulin Lispro [Humalog KwikPen] 7 unit SUBCUT BREAKFAST insuln.pen 04/28/19 Insulin Lispro [Humalog KwikPen] See Protocol SUBCUT ACHS insuln.pen 04/28/19 Metoprolol(XL)Succ [Toprol Xl (Beta Rakesh)] 50 mg PO DAILY tab 04/28/19 Amiodarone HCl 200 mg PO BID 08/08/19 Furosemide [Lasix] 40 mg PO BIDLX 08/08/19 Potassium Chloride [K-Dur] 40 meq PO DAILY #30 tab 08/10/19 Warfarin Sodium [Coumadin] 2.5 mg PO DAILY #0 tab 08/10/19 The following prescriptions were given: Potassium Chloride [K-Dur] 40 meq PO DAILY #30 tab Transmission Status: Pending to [facility] Orders to be completed after discharge: Basic Metabolic Profile (BMP) Time Frame: 1 Week, Facility: [facility], Location: Laboratory Prothrombin Time w/INR Time Frame: 1 Week, Facility: [facility], Location: Laboratory Primary Care Physician: Francisco Alcazar MD [Primary Care Provider] - Test Results: Test results from this visit will be discussed in further detail at your follow- up appointment, if applicable. Please Follow Up With: Geno Arevalo MD When: 2-3 weeks Please Follow Up With: Elier Khanna MD When: 11/27/2019, already scheduled Proposed Discharge Date: 08/10/19
--- NOTE | 2019-08-10 12:56 | PCM.DC.SUM ---
Discharge Date and Diagnosis Date of Admission: 08/08/19 Date of Discharge: 08/10/19 - Primary Discharge Diagnosis 1. severe hypokalemia: 2/2 diuretics with intermittent use of K replacement. Continue with replacement. Improving. Encouraged compliance with replacement 2. 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 Resume furosemide. DW Dr. Arevalo, pt to keep HD catheter in for now. 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 3. Acute hypoxic respiratory insufficiency: improved. CXR unremarkable. COVID-19 test pending. no PNA on CXR 4. Coagulopathy: restart warfarin 08/10 at 2.5 daily. Follow up INR as outpt. - Secondary Discharge Diagnosis Chronic Problems (Last Reviewed 05/15/19 @ 11:25 by Xin Andres) CHF (congestive heart failure) (Chronic) long term current use of anticoagulant (Chronic) History of right and left heart catheterization (Chronic 02/18/98) Done s/p VSD repair Per Dr. Sherif Espinoza @ [facility]: normal coronaries, mildly elevated PA pressures Paroxysmal SVT (supraventricular tachycardia) (Chronic) Atrial fibrillation (Chronic) History of atrial flutter (Chronic) Attempted atrial flutter ablation @ [facility] X 1 in 1997 (unsuccessful), followed by Atrial flutter ablations X [address] Paul at [facility] in Apr and October of 1998 Chronic diastolic congestive heart failure (Chronic) History of patent ductus arteriosus as a child (Chronic) Repaired at age 3 years, done @ [facility] Nonrheumatic tricuspid valve regurgitation (Chronic) Leaflet used for VSD repair in past History of ventricular septal defect repair (Chronic) 1977 (pt approx age 18) using Dacron patch, done at [facility] Hyperlipidemia (Chronic) Hypertension (Chronic) Diabetes mellitus, type II (Chronic) History of radiofrequency ablation procedure for cardiac arrhythmia (Chronic) Attempted atrial flutter ablation @ [facility] X 1 (unsuccessful), followed by Atrial flutter ablations X [address] Paul at [facility] in Apr and October of 1998 Pulmonary hypertension, moderate to severe (Chronic) PASP 69 mmHg in September 2013 LASHAWN (obstructive sleep apnea) (Chronic) Hospital Course and Treatment Yang: [facility] Operations: None Procedures: None Summary of Care Provided: The patient is a 59 year old M presents with shortness of breath. Patient was found to be severely low potassium where his potassium is 1.9. Patient stated that he is on diuretics but has not been taking the potassium due to the large size of the pills. Patient started on potassium replacement and was very profoundly depleted and I was received several rounds of IV and oral potassium. Today, potassium is much better at 3.3. Patient will continue with potassium placement in addition to his furosemide. Patient did have some hypoxic respiratory insufficiency when he came here but that is since resolved. Patient was amatory pulse ox prior to discharge with plan is for the patient be discharged to home. Patient will need to have outpatient lab work for BMP as well as a INR. Patient's INR has been supratherapeutic at 3.7. Patient will have his warfarin adjusted to 2.5 mg a daily and to have it further modified by his primary care provider. Patient also checked for COVID-19 given his respiratory insufficiency and the COVID-19 was negative. [] - Physical Exam Vitals/I&O's: Vital Signs Temp Pulse Resp BP Pulse Ox 36.1 C L 66 18 113/56 L 91 08/10/19 09:30 08/10/19 12:06 08/10/19 09:30 08/10/19 09:30 08/10/19 09:30 Oxygen Flow Rate (L/min) 2 Oxygen Delivery Method Room Air Weight: 147 kg Body Mass Index (BMI) 48.8 Finger Stick Blood Glucose 479 Intake and Output for Last 24 Hours 08/08/19 08/09/19 08/10/19 23:59 23:59 23:59 Intake Total 2170 / 2170 2200 / 2200 310 / 310 Output Total 1625 / 1625 650 / 650 Balance 545 / 545 1550 / 1550 310 / 310 General: Alert, No apparent distress HEENT: Atraumatic, Normocephalic Oral: Moist Mucosa, No Gingival or Mucosal Lesions/ Ulcerations Neck: No Nodes, Trachea Midline Lungs: Clear to auscultation, Normal air movement, No rhonchi, No wheeze Cardiovascular: Tachycardic Abdomen: Bowel Sounds Present, Soft, Non Tender, Non-Distended Psych/Mental Status: Normal Affect, Appropriate Microbiology Past 72 Hours 08/08/19 04:35 Mucosa - Nasopharyngeal Respiratory Panel (PCR) - Final Laboratory Results 08/08/19 04:35: COVID-19 ([facility]) Not Detected 08/09/19 12:00: Sodium 131 L, Potassium 2.9 L, Chloride 80 L, Carbon Dioxide > 45.0 H*, Anion Gap TNP, BUN 70 H, Creatinine 2.50 H, Estim Creat Clear Calc 30.02, Est GFR (MDRD) Af Amer 34 L, Est GFR (MDRD) Non-Af 28 L, BUN/Creatinine Ratio 28.0 H, Glucose 242 H, Calcium 9.3 08/09/19 16:35: POC Glucose 304 H 08/09/19 21:56: POC Glucose 201 H 08/10/19 07:06: POC Glucose 173 H 08/10/19 07:16: PT 36.1 H, INR 3.7 H* 08/10/19 07:16: Sodium 135 L, Potassium 3.3 L, Chloride 91 L, Carbon Dioxide 44.0 H, Anion Gap 0 L, BUN 60 H, Creatinine 2.06 H, Estim Creat Clear Calc 36.43, Est GFR (MDRD) Af Amer 42 L, Est GFR (MDRD) Non-Af 35 L, BUN/Creatinine Ratio 29.1 H, Glucose 163 H, Calcium 9.3 Current Medications Amiodarone HCl (Cordarone) 200 mg PO BID [facility], [facility] Last Admin: 08/10/19 10:20 Dose: 200 mg Documented by: Atorvastatin Calcium (Lipitor) 20 mg PO QHS [facility], [facility]1983 Last Admin: 08/09/19 22:03 Dose: 20 mg Documented by: Dextrose (D50w Syringe) 0 gm IV X1 PRN; Protocol PRN Reason: Hypoglycemia Furosemide (Lasix) 40 mg PO BID@1000,1800 [facility] Last Admin: 08/10/19 10:20 Dose: 40 mg Documented by: Glucagon () 1 mg IM .X1 PRN PRN Reason: Hypoglycemia Guaifenesin (Mucinex) 1,200 mg PO BID [facility], [facility] Last Admin: 08/10/19 10:20 Dose: 1,200 mg Documented by: Sodium Chloride () 250 mls @ 15 mls/hr IV .[id number] PRN PRN Reason: Saline Flush Sodium Chloride () 250 mls @ 15 mls/hr IV .[id number] PRN PRN Reason: Additional IVPB Infusion Insulin Glargine (Lantus (Bkc)) 40 units SC BID [facility], [facility] Last Admin: 08/10/19 10:20 Dose: 40 units Documented by: Insulin Human Lispro (Humalog Kwikpen (Bk)) 0 unit SC ACHS [facility], [facility]; Protocol Last Admin: 08/10/19 12:28 Dose: 2 units Documented by: Metoprolol Succinate (Toprol Xl (Beta Rakesh)) 50 mg PO DAILY [facility] Last Admin: 08/10/19 10:19 Dose: 50 mg Documented by: Potassium Ch[facility] (K-Dur) [facility] Sodium Chloride () 10 - 40 ml IV UD PRN PRN Reason: SALINE FLUSH Last Admin: 08/10/19 12:32 Dose: 10 ml Documented by: Discharge Diet: 6 Cup Fluid Restriction, 2000 mg Sodium Diet Call your doctor if you observe: Fever of 101 or Higher, Shortness of breath Home Medications: Medications to take at Discharge Atorvastatin Calcium 20 mg PO QHS 04/16/19 Insulin Glargine [Lantus SoloStar Pen] 40 units SUBCUT BID pen 04/28/19 Insulin Lispro [Humalog KwikPen] 5 unit SUBCUT LUNCH insuln.pen 04/28/19 Insulin Lispro [Humalog KwikPen] 6 unit SUBCUT DINNER insuln.pen 04/28/19 Insulin Lispro [Humalog KwikPen] 7 unit SUBCUT BREAKFAST insuln.pen 04/28/19 Insulin Lispro [Humalog KwikPen] See Protocol SUBCUT ACHS insuln.pen 04/28/19 Metoprolol(XL)Succ [Toprol Xl (Beta Rakesh)] 50 mg PO DAILY tab 04/28/19 Amiodarone HCl 200 mg PO BID 08/08/19 Furosemide [Lasix] 40 mg PO BIDLX 08/08/19 Potassium Chloride [K-Dur] 40 meq PO DAILY #30 tab 08/10/19 Warfarin Sodium [Coumadin] 2.5 mg PO DAILY #0 tab 08/10/19 Following Prescrptions Were Given to Patient: Potassium Chloride [K-Dur] 40 meq PO DAILY #30 tab Transmission Status: Pending to [facility] Other Amb Orders: Basic Metabolic Profile (BMP) Time Frame: 1 Week, Facility: [facility], Location: Laboratory Prothrombin Time w/INR Time Frame: 1 Week, Facility: [facility], Location: Laboratory Primary Care Physician: Francisco Alcazar MD [Primary Care Provider] - Please Follow Up With: Geno Arevalo MD When: 2-3 weeks Please Follow Up With: Elier Khanna MD When: 11/27/2019, already scheduled Disposition: Home Minutes spent on discharge:: 35 Patient Condition:: Fair Medical Necessity - Tobacco Use Smoking Status: Former smoker Meaningful Use Info Meaningful Use Diagnoses (Choose all that apply): None applicable Inpatient E&M: [id number] [facility]
[2019-08-10 13:56] LABS: Bedside Glucose 176 mg/dL (70-110)
--- NOTE | 2019-08-10 15:32 | NURSING ---
Pulse ox 94% on RA. pt currently sitting up in the chair and had just returned from the bathroom. denies SOB.
[2019-08-10 17:06] LABS: Bedside Glucose 139 mg/dL (70-110)
--- NOTE | 2019-08-10 17:11 | NURSING ---
Patient requested that a note be written that states he was in hospital ICU and tested for COVID and that it was negative. Same completed.
--- NOTE | 2019-08-11 14:14 | CASEMGMT ---
ROBERTO BURGER DC PHONE CALL DC DATE: 08.10.2019 DC DISPOSITION: Home DC DIAGNOSIS: CHF, COVID Neg LACE/STRATA: 3 F/U APPTS MADE PRIOR TO DC: no PRESCRIPTIONS ACQUIRED BY PT: yes Intro role of CM to patient. Pt states he has medications, but had question re: Furosemide. States it was listed on his dc instructions, however he takes Torsemide at home, and no script for Furosemide was at pharmacy (appears to be listed as a home medication to be resumed). Pt also had questions re: HD catheter removal. ROBERTO BURGER offered to contact Dr. Arevalo's office to verify medication and that pt had questions re: HD catheter. Message to nurse who will contact pt. ROBERTO BURGER called pt back, message left (had name identifier for message) that Dr. Arevalo's office would call to clarify questions. -no further questions were noted and no care improvement suggestions were given. Chrissie MUNIZ RN ACM
== END 2019-08-10 17:40 | disposition home or self-care (01) | DRG 641 ==
LOC: ED 05:27 → ICU 07:13 → MS2 08-09 15:31
PROVIDERS: Hospitalist; Admitting Provider Family Medicine; Emergency Provider Emergency Medicine; PCP Family Medicine
DX: E87.6 Hypokalemia (principal); N17.9 Acute kidney failure, unspecified; N18.4 Chronic kidney disease, stage 4 (severe); I13.0 Hypertensive heart and chronic kidney disease with heart failure and stage 1 through stage 4 chronic kidney disease, or unspecified chronic kidney disease; Z68.42 Body mass index [BMI] 45.0-49.9, adult; I50.32 Chronic diastolic (congestive) heart failure; Q25.0 Patent ductus arteriosus; I48.20 Chronic atrial fibrillation, unspecified; D68.9 Coagulation defect, unspecified; I47.1 Supraventricular tachycardia; T50.2X5A Adverse effect of carbonic-anhydrase inhibitors, benzothiadiazides and other diuretics, initial encounter; E11.22 Type 2 diabetes mellitus with diabetic chronic kidney disease; E78.5 Hyperlipidemia, unspecified; E66.01 Morbid (severe) obesity due to excess calories; G47.33 Obstructive sleep apnea (adult) (pediatric); I27.20 Pulmonary hypertension, unspecified; Z87.891 Personal history of nicotine dependence; Z79.01 Long term (current) use of anticoagulants; Z79.4 Long term (current) use of insulin; Z82.3 Family history of stroke; Z82.49 Family history of ischemic heart disease and other diseases of the circulatory system; Z83.3 Family history of diabetes mellitus; Z87.01 Personal history of pneumonia (recurrent); Z99.2 Dependence on renal dialysis; Z03.818 Encounter for observation for suspected exposure to other biological agents ruled out; I36.1 Nonrheumatic tricuspid (valve) insufficiency
CPT/HCPCS: 36415; 71045; 80048; 82962; 83735; 83880; 84100; 84484; 85025; 85610; 87633; 87635; 93005; 99285; J7030; J7040; A4216; U0004

== ENCOUNTER → 2019-08-14 15:09 | Outpatient (CLI) | payer MEDICARE, SELFPAY ==
[2019-08-08 08:15] VITALS: BMI 48.8
[2019-08-14 16:30] LABS: International Normalized Ratio 3.1; Prothrombin Time (Protime)PT. 31.9 SECONDS (11.7-14.9)
[2019-08-14 16:39] LABS: Anion Gap 7 (5-15); BUN 51 mg/dL (7-18); BUN/Creat Ratio 22.6 RATIO (10-20); Calcium,Total 9.1 mg/dL (8.5-10.1); Chloride 86 mmol/L (98-107); Creatinine, Serum 2.26 mg/dL (0.70-1.30); EST Glomerular Filtration Rate 32 mL/min (>60); Est Glom Filt Rate - Afr Amer 38 mL/min (>60); Glucose 190 mg/dL (74-106); Potassium 3.3 mmol/L (3.5-5.1); Sodium Level 135 mmol/L (136-145)
== END ==
PROVIDERS: PCP Family Medicine
DX: E87.6 Hypokalemia (principal); Z86.79 Personal history of other diseases of the circulatory system
CPT/HCPCS: 36415; 80048; 85610

== ENCOUNTER 2019-09-05 13:34 | Outpatient (RCR) | payer MEDICARE, SELFPAY ==
[2019-08-08 08:15] VITALS: BMI 48.8
[2019-08-18 16:06] LABS: Prothrombin Time (Protime)PT. 36.8 SECONDS (11.7-14.9)
[2019-08-18 16:16] LABS: International Normalized Ratio 3.7
[2019-08-18 16:17] LABS: Anion Gap 8 (5-15); BUN 55 mg/dL (7-18); BUN/Creat Ratio 23.1 RATIO (10-20); Chloride 87 mmol/L (98-107); Creatinine, Serum 2.38 mg/dL (0.70-1.30); EST Glomerular Filtration Rate 30 mL/min (>60); Est Glom Filt Rate - Afr Amer 36 mL/min (>60); Glucose 218 mg/dL (74-106); Potassium 3.1 mmol/L (3.5-5.1); Sodium Level 138 mmol/L (136-145)
[2019-08-25 14:39] LABS: International Normalized Ratio 3.3; Prothrombin Time (Protime)PT. 33.3 SECONDS (11.7-14.9)
[2019-08-25 15:32] LABS: Anion Gap 3 (5-15); BUN 40 mg/dL (7-18); BUN/Creat Ratio 21.7 RATIO (10-20); Chloride 100 mmol/L (98-107); Creatinine, Serum 1.84 mg/dL (0.70-1.30); EST Glomerular Filtration Rate 40 mL/min (>60); Est Glom Filt Rate - Afr Amer 48 mL/min (>60); Glucose 118 mg/dL (74-106); Potassium 4.4 mmol/L (3.5-5.1); Sodium Level 140 mmol/L (136-145)
[2019-09-05 14:38] LABS: BUN 40 mg/dL (7-18); Calcium,Total 9.7 mg/dL (8.5-10.1); Carbon Dioxide > 45.0 mmol/L (21.0-32.0); Chloride 83 mmol/L (98-107); Creatinine, Serum 2.35 mg/dL (0.70-1.30); EST Glomerular Filtration Rate 30 mL/min (>60); Est Glom Filt Rate - Afr Amer 36 mL/min (>60); Glucose 135 mg/dL (74-106); Potassium 2.5 mmol/L (3.5-5.1); Sodium Level 136 mmol/L (136-145)
[2019-09-05 14:39] LABS: Prothrombin Time (Protime)PT. 21.8 SECONDS (11.7-14.9)
== END 2019-09-05 18:00 | disposition home or self-care (01) ==
LOC: LAB 13:34
PROVIDERS: Internal Medicine Nephrology; Family Provider Family Medicine; PCP Family Medicine; Referring Provider Internal Medicine Cardiovascular Disease; Visit Provider Internal Medicine Cardiovascular Disease
DX: I48.91 Unspecified atrial fibrillation (principal); Z79.01 Long term (current) use of anticoagulants; E87.6 Hypokalemia
CPT/HCPCS: 36415; 80048; 85610

== ENCOUNTER → 2019-09-11 14:55 | Outpatient (CLI) | payer MEDICARE, SELFPAY ==
[2019-08-08 08:15] VITALS: BMI 48.8
[2019-08-30 14:07] VITALS: BMI 48.8
[2019-09-11 15:59] LABS: Anion Gap 8 (5-15); BUN 49 mg/dL (7-18); BUN/Creat Ratio 24.3 RATIO (10-20); Calcium,Total 9.3 mg/dL (8.5-10.1); Chloride 87 mmol/L (98-107); Creatinine, Serum 2.02 mg/dL (0.70-1.30); EST Glomerular Filtration Rate 36 mL/min (>60); Est Glom Filt Rate - Afr Amer 43 mL/min (>60); Glucose 110 mg/dL (74-106); Sodium Level 137 mmol/L (136-145)
== END ==
PROVIDERS: PCP Family Medicine; Visit Provider Internal Medicine Nephrology
DX: E87.6 Hypokalemia (principal)
CPT/HCPCS: 36415; 80048

== ENCOUNTER 2019-09-21 12:43 | Outpatient (RCR) | payer MEDICARE, SELFPAY ==
[2019-08-30 14:07] VITALS: BMI 48.8
[2019-09-21 13:10] LABS: International Normalized Ratio 2.5; Prothrombin Time (Protime)PT. 26.8 SECONDS (11.7-14.9)
[2019-09-21 13:17] LABS: Protein, Urine (Random) < 6.0 mg/dL (<11.9)
[2019-09-21 13:38] LABS: Anion Gap 10 (5-15); BUN 40 mg/dL (7-18); BUN/Creat Ratio 17.5 RATIO (10-20); Chloride 94 mmol/L (98-107); Creatinine, Serum 2.29 mg/dL (0.70-1.30); EST Glomerular Filtration Rate 31 mL/min (>60); Est Glom Filt Rate - Afr Amer 38 mL/min (>60); Glucose 189 mg/dL (74-106); Potassium 3.6 mmol/L (3.5-5.1); Sodium Level 138 mmol/L (136-145)
== END 2019-09-21 18:00 | disposition home or self-care (01) ==
LOC: LAB 12:43
PROVIDERS: Family Provider Family Medicine; PCP Family Medicine; Referring Provider Internal Medicine Cardiovascular Disease; Visit Provider Internal Medicine Cardiovascular Disease
DX: I48.91 Unspecified atrial fibrillation (principal); Z79.01 Long term (current) use of anticoagulants; E87.6 Hypokalemia
CPT/HCPCS: 36415; 80048; 82570; 84156; 85610

== ENCOUNTER → 2019-10-04 11:15 | Outpatient (CLI) | payer MEDICARE, SELFPAY ==
[2019-08-30 14:07] VITALS: BMI 48.8
[2019-10-04 12:15] LABS: Anion Gap 5 (5-15); BUN 48 mg/dL (7-18); BUN/Creat Ratio 21.1 RATIO (10-20); Chloride 96 mmol/L (98-107); Creatinine, Serum 2.28 mg/dL (0.70-1.30); EST Glomerular Filtration Rate 31 mL/min (>60); Est Glom Filt Rate - Afr Amer 38 mL/min (>60); Glucose 135 mg/dL (74-106); Potassium 4.6 mmol/L (3.5-5.1); Sodium Level 139 mmol/L (136-145)
== END ==
PROVIDERS: PCP Family Medicine; Visit Provider Internal Medicine Nephrology
DX: N18.3 Chronic kidney disease, stage 3 (moderate) (principal)
CPT/HCPCS: 36415; 80048

== ENCOUNTER → 2019-10-16 11:32 | Outpatient (CLI) | payer MEDICARE, SELFPAY ==
[2019-08-30 14:07] VITALS: BMI 48.8
[2019-10-16 12:46] LABS: BUN 79 mg/dL (7-18); BUN/Creat Ratio 30.2 RATIO (10-20); Calcium,Total 9.6 mg/dL (8.5-10.1); Chloride 78 mmol/L (98-107); Creatinine, Serum 2.62 mg/dL (0.70-1.30); EST Glomerular Filtration Rate 27 mL/min (>60); Est Glom Filt Rate - Afr Amer 32 mL/min (>60); Glucose 144 mg/dL (74-106); Sodium Level 134 mmol/L (136-145)
[2019-10-16 13:38] LABS: Potassium 2.3 mmol/L (3.5-5.1)
[2019-10-16 13:39] LABS: Carbon Dioxide > 45.0 mmol/L (21.0-32.0)
== END ==
PROVIDERS: PCP Family Medicine; Referring Provider Internal Medicine Nephrology; Visit Provider Internal Medicine Nephrology
DX: N18.3 Chronic kidney disease, stage 3 (moderate) (principal)
CPT/HCPCS: 36415; 80048

== ENCOUNTER 2019-10-27 12:06 | Outpatient (RCR) | payer MEDICARE, SELFPAY ==
[2019-08-30 14:07] VITALS: BMI 48.8
[2019-10-19 11:26] LABS: BUN 61 mg/dL (7-18); Calcium,Total 9.2 mg/dL (8.5-10.1); Carbon Dioxide > 45.0 mmol/L (21.0-32.0); Chloride 85 mmol/L (98-107); EST Glomerular Filtration Rate 34 mL/min (>60); Est Glom Filt Rate - Afr Amer 41 mL/min (>60); Glucose 205 mg/dL (74-106); Potassium 3.4 mmol/L (3.5-5.1); Sodium Level 134 mmol/L (136-145)
[2019-10-27 12:37] LABS: International Normalized Ratio 5.9; Prothrombin Time (Protime)PT. 53.1 SECONDS (11.7-14.9)
[2019-10-27 13:07] LABS: Anion Gap 5 (5-15); BUN 54 mg/dL (7-18); BUN/Creat Ratio 20.9 RATIO (10-20); Calcium,Total 8.5 mg/dL (8.5-10.1); Chloride 98 mmol/L (98-107); Creatinine, Serum 2.58 mg/dL (0.70-1.30); EST Glomerular Filtration Rate 27 mL/min (>60); Est Glom Filt Rate - Afr Amer 33 mL/min (>60); Glucose 107 mg/dL (74-106); Potassium 5.7 mmol/L (3.5-5.1); Sodium Level 134 mmol/L (136-145)
== END 2019-10-27 18:00 | disposition home or self-care (01) ==
LOC: LAB 12:06
PROVIDERS: Internal Medicine Nephrology; Family Provider Family Medicine; PCP Family Medicine; Referring Provider Internal Medicine Cardiovascular Disease; Visit Provider Internal Medicine Cardiovascular Disease
DX: E87.6 Hypokalemia (principal); I48.91 Unspecified atrial fibrillation; Z79.01 Long term (current) use of anticoagulants
CPT/HCPCS: 36415; 80048; 85610

== ENCOUNTER 2019-10-28 00:14 | Inpatient (IN) | payer MEDICARE, SELFPAY ==
[2019-08-30 14:07] VITALS: BMI 48.8
[2019-10-28] VITALS (22 sets, daily range): BP systolic 106–143; BP diastolic 48–87; PULSE 48–61; RESP 14–26; TEMP 36.1–37; O2SAT 88–100; BMI 53.5; BMI 54.0
--- NOTE | 2019-10-28 00:23 | RAD_ITS ---
STUDY: X-RAY CHEST REASON FOR EXAM: Male, 59 years old. Shortness of breath, weakness. TECHNIQUE: Single AP portable view of the chest. COMPARISON: 08/08/2019. FINDINGS: There is a small right pleural effusion with overlying atelectasis or infiltration right lung base. There is interstitial prominence in the lungs, suggesting CHF. The heart is enlarged. There are sternotomy wires and surgical clips suggesting previous CABG. Normal mediastinum and kelsie. There is prominence of the pulmonary hilar arteries and peripheral pulmonary arteries, consistent with congestive heart failure (CHF). Normal visualized aortic arch and descending thoracic aorta. There are no visualized acute osseous abnormalities. . There is no demonstrated abnormality of the visualized soft tissue structures of the upper abdomen. RAD/Chest 1 View (Portable) IMPRESSION: Cardiomegaly with mild CHF. Small right pleural effusion with overlying atelectasis or infiltration right lung base. Electronically Signed: Fer Dotson MD at 1:18 EDT , Service support ,
--- NOTE | 2019-10-28 00:23 | EKG12_ITS ---
Test Reason : SOB Blood Pressure : / mmHG Vent. Rate : 046 BPM Atrial Rate : 046 BPM P-R Int : 304 ms QRS Dur : 144 ms QT Int : 538 ms P-R-T Axes : 029 144 096 degrees QTc Int : 470 ms Sinus bradycardia with 1st degree A-V block Right bundle branch block Abnormal ECG Confirmed by SCOTT HAMLIN, PHILLIP ([id number]), editorial specialist JAVIER GREEN ([id number]) on 10/31/2019 9:22:55 AM Referred By: DR MELGOZA Confirmed By:PHILLIP CHAVEZ MD
--- NOTE | 2019-10-28 01:03 | ED.VIS.GEN ---
History of Present Illness Chief Complaint: Shortness of Breath Informant: Patient Onset: Yesterday Narrative: 59-year-old male presenting with chief complaint of shortness of breath. He states that he has been this way for the last day or so. He was sent today to get lab work drawn for his INR and kidney function. His INR and his potassium were both elevated. He states he felt like this when he was doing his outpatient lab work but now he feels like he is more short of breath. He states that he usually gets short of breath but this is worse. He does not have chest pain but notes that his stomach feels a little more bloated than usual. He states he is having bowel movements but is slightly constipated. Patient does have history of CHF and does state that his torsemide has been changed a few times as well as his potassium. He takes Coumadin for A. fib. Past Medical History - Allergies and Home Meds Allergies/Adverse Reactions: Allergies albuterol Adverse Reaction (Verified 10/28/19 00:17) NEEDS FOLLOW-UP increased heart rate. amoxicillin trihydrate [From Augmentin] Adverse Reaction (Verified 10/28/19 00:17) Diarrhea indomethacin [From Indocin] Adverse Reaction (Verified 10/28/19 00:17) Nausea potassium clavulanate [From Augmentin] Adverse Reaction (Verified 10/28/19 00:17) Diarrhea Prior records reviewed: Yes Surgical History: - - VSD repair using tricuspid valve leaflet. PDA repair Smoking Status: Former smoker Alcohol: None Drugs: None - Family History Maternal Family History: Family History (Last Reviewed 08/30/19 @ 13:53 by Becki Gorman) Mother Hypertension Diabetes CVA (cerebral vascular accident) Valvular heart disease Father CVA (cerebral vascular accident) Hypertension Hyperlipidemia Family History: Reports: Heart Disease Paternal Family History: Family History (Last Reviewed 08/30/19 @ 13:53 by Becki Gorman) Mother Hypertension Diabetes CVA (cerebral vascular accident) Valvular heart disease Father CVA (cerebral vascular accident) Hypertension Hyperlipidemia Family History: Reports: High Cholesterol, Heart Disease, Hypertension, Stroke Review of Systems General: Denies: Chills, Fever Eyes: Denies: Visual changes - bilaterally, Diplopia ENT: Denies: Rhinorrhea, Sore throat Cardiovascular: Denies: Chest pain Respiratory: Reports: Dyspnea, Dyspnea on exertion Genitourinary: Denies: Dysuria Musculoskeletal: Denies: Myalgias Neurological: Denies: Headache Hematologic: Denies: Easy bruising, Easy bleeding Allergy: Denies: Uticaria Physical Exam Vital Signs/Narrative: Vital Signs Temp Pulse Resp BP Pulse Ox 10/28/19 00:42 88 10/28/19 00:16 97 F L 54 L 18 117/70 90 Inital Vital Signs reviewed: Yes General: Obese, Acute Distress - Mild distress due to shortness of breath Head: Normocephalic, Atraumatic Eyes: Perrl. Negative for: Pale conjunctiva ENT: Moist mucous membranes Cardiovascular: Bradycardia Respiratory: Decreased Air Movement. Negative for: Wheezing Abdomen: - - Abdomen is slightly distended but is nontender to palpation Extremities: Edema Skin: Normal color, No rash. Negative for: Cyanosis, Diaphoresis Neurological: Alert, Oriented x3 Psychological: Normal affect Diagnostic/Tx/Re-eval Clinical Impression(s) from Imaging Studies Chest X-Ray 10/28/19 00:23 IMPRESSION: Cardiomegaly with mild CHF. Small right pleural effusion with overlying atelectasis or infiltration right lung base. Electronically Signed: Fer Dotson MD at 1:18 EDT , Service support , Laboratory Data 10/28/19 10/28/19 10/28/19 00:55 00:55 00:55 WBC 7.8 RBC 5.14 Hgb 13.7 Hct 45.7 MCV 88.9 MCH 26.7 L MCHC 30.0 L RDW Std Deviation 53.6 H RDW Coeff of Janiya 17.2 H Plt Count 284 MPV 9.4 Immature Gran % (Auto) 0.400 Neut % (Auto) 71.1 H Lymph % (Auto) 14.2 L Weld % (Auto) 12.8 H Eos % (Auto) 1.0 Baso % (Auto) 0.5 Absolute Neuts (auto) 5.5 Absolute Lymphs (auto) 1.11 Nucleated RBC % 0 PT INR Sodium 136 Potassium 6.5 H* Chloride 99 Carbon Dioxide 34.0 H Anion Gap 3 L BUN 56 H Creatinine 2.67 H Estim Creat Clear Calc 28.11 Est GFR (MDRD) Af Amer 31 L Est GFR (MDRD) Non-Af 26 L BUN/Creatinine Ratio 21.0 H Glucose 131 H Calcium 8.6 Troponin I < 0.015 B-Natriuretic Peptide 233.6 H Patient was seen and evaluated for shortness of breath. He does appear to be volume overloaded. His air movement is poor. His lower extremity edema as well as swelling in his abdomen which is likely due to CHF. His BNP is elevated. Chest x-ray is consistent with CHF. Patient does have an elevated potassium for which she was given Lasix, calcium gluconate, Kayexalate. Patient is allergic to albuterol so I did not give this. EKG shows a sinus bradycardia with first-degree AV block which appears to be new. Patient is denying any chest pain. Troponin is negative. Patient's INR is supratherapeutic however his hemoglobin is normal. Patient was hypoxic at 88% and had to be put on liters of oxygen via nasal cannula. Given these problems patient will be admitted to the hospital for treatment. He is in stable condition on admission. Impression: 1. CHF exacerbation 2. Hyperkalemia 3. Coumadin coagulopathy 4. Hypoxia 5. First-degree AV block 6. Bradycardia 7. Dyspnea 8. Acute on chronic kidney injury - EKG Initial EKG Interpretation: Sinus Rhythm, Sinus Bradycardia, RBBB, AV Block - Degree AV block Prior: Changed ED Disposition - Plan for ED Patient: Disposition: Acute Care Hospital [facility]
[2019-10-28 01:04] LABS: Absolute Lymphocyte Count 1.11 X10^3/uL (0.83-4.51); Absolute Neutrophil Count 5.5 X10^3/uL (2.0-7.7); Basophil# 0.04 X10^3/uL; Basophil% 0.5 % (0-1); Eosinophil# 0.08 X10^3/uL; Hematocrit 45.7 % (40-54); Hemoglobin 13.7 g/dL (13.0-16.5); Lymphocyte # 1.11 X10^3/ul (4.0); Lymphocyte % 14.2 % (19-41); Mean Corpuscular Hgb 26.7 pg (27.0-32.0); Mean Corpuscular Volume 88.9 fL (80-94); Mean Platelet Vol. 9.4 fl (6.2-12.0); Monocyte% 12.8 % (0-10); NRBC Flagged by Analyzer 0 % (0-5); Neutrophil # 5.53 X10^3/uL (2.7-7.7); Neutrophil % 71.1 % (47-70); Platelet Count 284 K/mm3 (150-450); RBC Distribution Width CV 17.2 % (11.6-14.6); RBC Distribution Width SD 53.6 fl (35.1-43.9); Red Blood Count 5.14 M/mm3 (4.6-6.2); White Blood Count 7.8 K/mm3 (4.4-11.0)
[2019-10-28 01:27] LABS: Anion Gap 3 (5-15); BUN 56 mg/dL (7-18); Calcium,Total 8.6 mg/dL (8.5-10.1); Chloride 99 mmol/L (98-107); Creatinine, Serum 2.67 mg/dL (0.70-1.30); EST Glomerular Filtration Rate 26 mL/min (>60); Est Glom Filt Rate - Afr Amer 31 mL/min (>60); Estimated Creatinine Clearance 28.11 ml/min; Glucose 131 mg/dL (74-106); Potassium 6.5 mmol/L (3.5-5.1); Sodium Level 136 mmol/L (136-145)
[2019-10-28 01:28] LABS: International Normalized Ratio 5.2
[2019-10-28 01:32] LABS: BNP,B-Type NATRIURETIC PEPTIDE 233.6 pg/mL (0-100)
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
[2019-10-28] MEDS: Sodium Polystyrene Sulfonate 15 GM/60 ML UDC 30 GM PO ×2 (03:00→11:44)
[2019-10-28] MEDS: Calcium Chloride 1 GM/10 ML Syringe IV (03:02)
[2019-10-28] MEDS: Furosemide 100 MG/10 ML Vial 80 MG IV (03:08)
--- NOTE | 2019-10-28 03:57 | NURSING ---
Pt does not know when PNA shot was.
[2019-10-28 04:06] LABS: Magnesium 3.1 mg/dL (1.6-2.6); Thyroid Stim Hormone (TSH) 6.44 uIU/mL (0.358-3.74)
[2019-10-28 04:37] LABS: Prothrombin Time (Protime)PT. 56.6 SECONDS (11.7-14.9)
[2019-10-28 04:49] LABS: International Normalized Ratio 6.4
--- NOTE | 2019-10-28 05:55 | EKG12_ITS ---
Test Reason : AM EKG Blood Pressure : / mmHG Vent. Rate : 050 BPM Atrial Rate : 050 BPM P-R Int : 260 ms QRS Dur : 154 ms QT Int : 528 ms P-R-T Axes : 024 156 082 degrees QTc Int : 481 ms Sinus bradycardia with 1st degree A-V block Right bundle branch block Abnormal ECG Confirmed by IDRIS HAMLIN, ADAL ([id number]), avid editor JAVIER GREEN ([id number]) on 11/01/2019 8:57:13 AM Referred By: ERNESTINE Confirmed By:ADAL STEINBERG MD
[2019-10-28 06:37] LABS: Absolute Lymphocyte Count 0.95 X10^3/uL (0.83-4.51); Absolute Neutrophil Count 6.7 X10^3/uL (2.0-7.7); Basophil# 0.03 X10^3/uL; Basophil% 0.3 % (0-1); Eosinophil# 0.02 X10^3/uL; Eosinophils% 0.2 % (0-5); Hematocrit 47.1 % (40-54); Hemoglobin 14.1 g/dL (13.0-16.5); Lymphocyte # 0.95 X10^3/ul (4.0); Lymphocyte % 10.7 % (19-41); Mean Corp Hgb Conc 29.9 g/dL (32-36); Mean Corpuscular Volume 90.2 fL (80-94); Mean Platelet Vol. 9.6 fl (6.2-12.0); Monocyte# 1.12 X10^3/uL; Monocyte% 12.6 % (0-10); NRBC Flagged by Analyzer 0 % (0-5); Neutrophil # 6.72 X10^3/uL (2.7-7.7); Neutrophil % 75.9 % (47-70); Platelet Count 255 K/mm3 (150-450); RBC Distribution Width CV 17.8 % (11.6-14.6); RBC Distribution Width SD 54.3 fl (35.1-43.9); Red Blood Count 5.22 M/mm3 (4.6-6.2); White Blood Count 8.9 K/mm3 (4.4-11.0)
[2019-10-28 07:11] LABS: T4 Free Direct 1.48 ng/dL (0.76-1.46)
--- NOTE | 2019-10-28 07:16 | NURSING ---
Pt states he is not supposed to take any Coumadin until he has his blood drawn on Wednesday.
[2019-10-28 07:29] LABS: ALB/GLOB Ratio 0.9 RATIO (0.9-2.4); AST(SGOT) 20 U/L (15-37); Alanine Aminotransfer ALT/SGPT 25 U/L (16-61); Albumin, Serum 3.5 g/dL (3.2-5.0); Alkaline Phosphatase 159 U/L (45-117); Anion Gap 3 (5-15); BUN 56 mg/dL (7-18); BUN/Creat Ratio 20.9 RATIO (10-20); Calcium,Total 9.6 mg/dL (8.5-10.1); Chloride 100 mmol/L (98-107); Creatinine, Serum 2.68 mg/dL (0.70-1.30); EST Glomerular Filtration Rate 26 mL/min (>60); Est Glom Filt Rate - Afr Amer 31 mL/min (>60); Globulin 4.1 g/dL (2.2-4.2); Glucose 140 mg/dL (74-106); Potassium 6.1 mmol/L (3.5-5.1); Protein, Total 7.6 g/dL (6.4-8.2); Sodium Level 135 mmol/L (136-145)
[2019-10-28] MEDS: Acetaminophen 325 MG Tablet 650 MG PO (07:32)
--- NOTE | 2019-10-28 07:34 | NURSING ---
Pt states he takes an Equate brand stool softener.
[2019-10-28 08:16] LABS: Bedside Glucose 130 mg/dL (70-110)
[2019-10-28] MEDS: Insulin Lispro 100 UNIT/ML INSULN.PEN 7 UNIT SC (09:39)
[2019-10-28] MEDS: oxyCODONE 5 MG Tablet PO (11:28)
[2019-10-28] MEDS: Insulin Lispro 100 UNIT/ML INSULN.PEN SC ×2 (11:33→11:34)
[2019-10-28 12:35] LABS: Bedside Glucose 159 mg/dL (70-110)
--- NOTE | 2019-10-28 13:08 | CASEMGMT ---
Addendum entered by Allie Dobson 10/28/19 14:14: Attempted to see pt again for RN CM assessment. Pt sleepy. Again, he was able to arouse just briefly, but remains groggy/lethargic and falls back to sleep quickly. Unable to complete assessment at this time. Original Note: RN CM NOTE: Attempted to meet w/pt for initial RN CM assessment. Pt sitting up in recliner chair, sleeping very soundly. Able to arouse him briefly, but he is very lethargic. RNMartha, aware. She states he did not sleep well last night and was just medicated for pain. Unable to complete assessment at this time. RN CM to attempt at a later time when pt is more awake. Dedrick RAGSDALEN RN CM
--- NOTE | 2019-10-28 14:34 | CCHN_ITS ---
Hospitalist Note Patient was seen and examined today, he is currently on nasal cannula O2, I adjusted the patient's diuretics today. We will continue IV Lasix administration and wean oxygen if possible. Patient was given additional Kayexalate due to his elevated potassium. Patient's bilirubin is also elevated- etiology unclear at this point. His THS is also elevated but his free T4 is high not sure why. I will reevaluate the patient tomorrow and recheck an INR- INR was elevated on admission at 6.4. CMP will also be rechecked.
--- NOTE | 2019-10-28 18:16 | CPS ---
1810 Critical verified times two. Reported values to charge nurse. Verified by read back.
[2019-10-28 18:26] LABS: Base Excess 14 mmol/L (-2 to +2); Bicarbonate 41.1 mmol/L (22-26); PO2 79 mmHG (75-100); SO2 92 % (95-99); Total Carbon Dioxide 44 mmol/L; pCO2 95.7 mmHg (35-45); pH 7.24 (7.35-7.45)
[2019-10-28 18:31] LABS: Bedside Glucose 118 mg/dL (70-110)
[2019-10-28] MEDS: Furosemide 100 MG/10 ML Vial 60 MG IV (18:55)
[2019-10-28] MEDS: 0.9% Saline Lock 10 ML Syringe IV ×2 (18:56→20:42)
--- NOTE | 2019-10-28 19:04 | NURSING ---
In room with Car RT. Pt very drowsy, A&Ox3. RT ask pt about intubation wishes. When asked if he would need to be intubated if that was ok with him pt stated yes.
[2019-10-28] MEDS: Naloxone 0.4 MG/ML Syringe IV (20:39)
--- NOTE | 2019-10-28 20:45 | CPS ---
Critical ABG results read back to Dr. Alarcon.
[2019-10-28 20:55] LABS: Base Excess 18 mmol/L (-2 to +2); Bicarbonate 43.5 mmol/L (22-26); PO2 85 mmHG (75-100); SO2 95 % (95-99); Total Carbon Dioxide 46 mmol/L; pCO2 83.4 mmHg (35-45); pH 7.33 (7.35-7.45)
[2019-10-28 20:59] LABS: Allen Test POS; Blood Gas Specimen Type ART; O2 Delivery Device BiPAP; SITE L RADIAL
[2019-10-28 21:00] LABS: EPAP 12; FI02 35; IPAP 26; Time Given 2005
[2019-10-28 21:13] LABS: Allen Test POS; Blood Gas Specimen Type ART; EPAP 12; FI02 50; IPAP 18; SITE L RADIAL
[2019-10-28 21:14] LABS: Time Given 1756
[2019-10-28] MEDS: Atorvastatin Calcium 20 MG Tablet PO (21:33)
[2019-10-28] MEDS: Amiodarone 200 MG Tablet PO (21:33)
[2019-10-28 21:41] LABS: Bedside Glucose 121 mg/dL (70-110)
[2019-10-29] VITALS (21 sets, daily range): BP systolic 112–137; BP diastolic 60–75; PULSE 56–69; RESP 14–20; TEMP 36.3–37.1; O2SAT 93–99
[2019-10-29 07:01] LABS: Prothrombin Time (Protime)PT. 55.1 SECONDS (11.7-14.9)
[2019-10-29 07:10] LABS: International Normalized Ratio 6.2
[2019-10-29 07:23] LABS: ALB/GLOB Ratio 0.9 RATIO (0.9-2.4); AST(SGOT) 15 U/L (15-37); Alanine Aminotransfer ALT/SGPT 24 U/L (16-61); Albumin, Serum 3.4 g/dL (3.2-5.0); Alkaline Phosphatase 150 U/L (45-117); Anion Gap 4 (5-15); BUN 55 mg/dL (7-18); BUN/Creat Ratio 21.5 RATIO (10-20); Calcium,Total 8.8 mg/dL (8.5-10.1); Chloride 95 mmol/L (98-107); Creatinine, Serum 2.56 mg/dL (0.70-1.30); EST Glomerular Filtration Rate 27 mL/min (>60); Est Glom Filt Rate - Afr Amer 33 mL/min (>60); Estimated Creatinine Clearance 29.32 ml/min; Globulin 3.9 g/dL (2.2-4.2); Glucose 105 mg/dL (74-106); Potassium 3.7 mmol/L (3.5-5.1); Protein, Total 7.3 g/dL (6.4-8.2); Sodium Level 139 mmol/L (136-145)
--- NOTE | 2019-10-29 08:53 | RAD_ITS ---
STUDY: X-RAY CHEST REASON FOR EXAM: Male, 59 years old. CHF TECHNIQUE: Frontal view COMPARISON: October 28, 2019. FINDINGS: Stable sternotomy wires. The lungs are expanded. Right basilar infiltrate with mild effusion increased since the previous study. Cardiomegaly. Normal mediastinum and kelsie. Normal visualized pulmonary arteries. Normal visualized aortic arch and descending thoracic aorta. Normal visualized thoracic spine. Normal visualized ribs, clavicles, and shoulders. There is no demonstrated abnormality of the visualized soft tissue structures of the upper abdomen. RAD/Chest 1 View (Portable) IMPRESSION: Right basilar infiltrate with mild effusion increased since the previous study. Cardiomegaly. Electronically Signed: Nato Callaway DO at 9:45 EDT Tel [phone], Service support ,
[2019-10-29] MEDS: Amiodarone 200 MG Tablet PO ×2 (09:24→21:39)
[2019-10-29] MEDS: Metoprolol(XL)Succ 50 MG Tablet PO (09:24)
[2019-10-29] MEDS: Insulin Lispro 100 UNIT/ML INSULN.PEN 7 UNIT SC (09:25)
[2019-10-29] MEDS: Furosemide 100 MG/10 ML Vial 60 MG IV ×2 (09:25→17:15)
[2019-10-29] MEDS: Insulin Lispro 100 UNIT/ML INSULN.PEN SC ×3 (11:31→21:39)
--- NOTE | 2019-10-29 11:42 | PN_ITS ---
Patient Problems: Active and Suspected Problems (Last Reviewed 10/28/19 @ 03:[address] 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 I had Dr. Torres search of their records for an office visit and Dr. Torres could not confirm he is ever been seen in the office. Patient was seen in consultation by Dr. Soria during her previous hospitalization this year. Patient states he is on CPAP at home but he says the setting is 6 cm which I think is not the correct setting. Chest x-ray was performed today which showed a right basilar infiltrate with mild effusion there was increased since previous study, patient does not present as a pneumonia however, I think the infiltrate is probably atelectasis. Patient remains afebrile, his white blood cell count yesterday was not elevated. Patient's INR is still elevated at 6.2. He has some evidence of blood in his urine but it is slight and I have elected not to give the patient vitamin K at this time. INR will be repeated again tomorrow - Physical Exam Vitals/I&O's: Vital Signs Temp Pulse Resp BP Pulse Ox 97.5 F L 58 L 18 116/67 95 10/29/19 10:00 10/29/19 11:00 10/29/19 10:00 10/29/19 10:00 10/29/19 11:11 Oxygen Flow Rate (L/min) 3 Oxygen Delivery Method Nasal Cannula Weight: 157.8 kg Body Mass Index (BMI) 54.0 Finger Stick Blood Glucose 479 Intake and Output for Last 24 Hours 10/27/19 10/28/19 10/29/19 23:59 23:59 23:59 Intake Total 870 / 970 700 / 700 Output Total 1850 / 3825 4375 / 4375 Balance -980 / -2855 -3675 / -3675 General: Alert, Oriented x3, Cooperative HEENT: Atraumatic, PERRLA, EOMI, Normocephalic Oral: Moist Mucosa Neck: Supple, Trachea Midline, Thyroid Normal Size and Texture Lungs: No rhonchi, No wheeze, No rales, Diminished Cardiovascular: Regular rate, Regular Rhythm, Normal S1, Normal S2, No murmurs, PMI Normal, No rub noted, No Gallop Abdomen: Bowel Sounds Present, Soft, Non Tender, Non-Distended, Obese, No hernias noted Extremities: Capillary Refill Less than 3 Seconds, Edema - Generalized edema is noted over both lower legs-this does not appear to be severe Skin: No rashes, No breakdown Musculoskeletal: No Tenderness to Palpation of Joints or Extremities Neurological: Cranial nerves II-XII grossly intact, Neuro grossly intact, Sensory exam intact to light touch and pain, Coordination normal Psych/Mental Status: Normal Affect, Appropriate, Alert and oriented to time, place, person, mood and affect Laboratory Results 10/28/19 11:27: POC Glucose 159 H 10/28/19 16:23: POC Glucose 118 H 10/28/19 17:52: Specimen Type ART, Sample Site L RADIAL, pH 7.24 L, Bicarbonate Actual 41.1 H, POC Total CO2 44, Base Excess 14 H, O2 Saturation 92 L, O2 % 50, ABG pCO2 95.7 H*, ABG pO2 79, Gavin Test POS, EPAP 12, IPAP 18, Blood Gas Notified Whom [facility] , Blood Gas Notified Time 175510/28/19 20:07: Specimen Type ART, Sample Site L RADIAL, pH 7.33 L, Bicarbonate Actual 43.5 H, POC Total CO2 46, Base Excess 18 H, O2 Saturation 95, O2 % 35, ABG pCO2 83.4 H*, ABG pO2 85, Gavin Test POS, O2 Delivery Device BiPAP, EPAP 12, IPAP 26, Blood Gas Notified Whom [facility] , Blood Gas Notified Time 200410/28/19 21:29: POC Glucose 121 H 10/29/19 06:14: PT 55.1 H, INR 6.2 H* 10/29/19 06:14: Sodium 139, Potassium 3.7, Chloride 95 L, Carbon Dioxide 40.0 H, Anion Gap 4 L, BUN 55 H, Creatinine 2.56 H, Estim Creat Clear Calc 29.32, Est GFR (MDRD) Af Amer 33 L, Est GFR (MDRD) Non-Af 27 L, BUN/Creatinine Ratio 21.5 H , Glucose 105, Calcium 8.8, Total Bilirubin 1.50 H, AST 15, ALT 24, Alkaline Phosphatase 150 H, Total Protein 7.3, Albumin 3.4, Globulin 3.9, Albumin/Globulin Ratio 0.9 Current Medications Acetaminophen (Tylenol) 650 mg PO Q6H PRN PRN PRN Reason: Pain Score 1-10/Temp > 100.7 F Last Admin: 10/28/19 07:32 Dose: 650 mg Documented by: Al Hydroxide/Mg Hydroxide (Mylanta Ii) 30 ml PO Q6H PRN PRN PRN Reason: Gastric Burning Amiodarone HCl (Cordarone) 200 mg PO BID [facility] Last Admin: 10/29/19 09:24 Dose: 200 mg Documented by: Atorvastatin Calcium (Lipitor) 20 mg PO QHS [facility] Last Admin: 10/28/19 21:33 Dose: 20 mg Documented by: Dextrose (D50w Syringe) 0 gm IV X1 PRN; Protocol PRN Reason: Hypoglycemia Furosemide (Lasix) 60 mg IV BID@1000,1800 [facility] Last Admin: 10/29/19 09:25 Dose: 60 mg Documented by: Glucagon () 1 mg IM .X1 PRN PRN Reason: Hypoglycemia Guaifenesin (Robitussin) 20 ml PO Q4H PRN PRN PRN Reason: COUGH Hydralazine HCl (Apresoline Iv) 10 mg IV Q4H PRN PRN PRN Reason: SBP > 160 Sodium Chloride () 250 mls @ 15 mls/hr IV .[id number] PRN PRN Reason: Saline Flush Sodium Chloride () 250 mls @ 15 mls/hr IV .[id number] PRN PRN Reason: Additional IVPB Infusion Insulin Glargine (Lantus (Bkc)) 40 units SC BID [facility] Last Admin: 10/29/19 09:24 Dose: 91 u Documented by: Insulin Human Lispro (Humalog Kwikpen (Bkc)) 7 unit SC BREAKFAST [facility] Last Admin: 10/29/19 09:25 Dose: 7 u Documented by: Insulin Human Lispro (Humalog Kwikpen (Bkc)) 6 unit SC DINNER [facility] Last Admin: 10/28/19 17:25 Dose: Not Given Documented by: Insulin Human Lispro (Humalog Kwikpen (Bkc)) 5 unit SC LUNCH [facility] Last Admin: 10/29/19 11:31 Dose: 5 u Documented by: Insulin Human Lispro (Humalog Kwikpen (Bkc)) 0 unit SC ACHS [facility]; Protocol Last Admin: 10/29/19 11:31 Dose: 3 u Documented by: Magnesium Hydroxide (Milk Of Magnesia) 30 ml PO DAILY PRN PRN PRN Reason: Constipation Metoprolol Succinate (Toprol Xl (Beta Rakesh)) 50 mg PO DAILY [facility] Last Admin: 10/29/19 09:24 Dose: 50 mg Documented by: Nitroglycerin (Nitrostat) 0.4 mg SUBLINGUAL Q5M PRN PRN Reason: CARDIAC/CHEST PAIN Ondansetron HCl (Zofran) 4 mg IV Q8H PRN PRN PRN Reason: NAUSEA/VOMITING Prochlorperazine Edisylate (Compazine Iv) 5 mg IV Q4H PRN PRN PRN Reason: Breakthrough Nausea/Vomiting Psyllium Hydrophilic Mucilloid (Metamucil) 1 packet PO DAILY PRN PRN PRN Reason: Constipation Senna/Docusate Sodium (Senokot-S, Shey-Colace) 2 tablet PO BID PRN PRN PRN Reason: Constipation Sodium Chloride () 10 - 40 ml IV UD PRN PRN Reason: SALINE FLUSH Last Admin: 10/28/19 20:42 Dose: 20 ml Documented by: Throat Lozenges (Cepacol Sore Throat Lozenge) 1 lozenge MUCOUS MEM Q2H PRN PRN PRN Reason: SORE THROAT Medical Necessity - Tobacco Use Smoking Status: Former smoker Tobacco Use: Non-smoker Assessment/Plan All Active Problems (Last Reviewed 10/28/19 @ 03:[address] Fredi Cobb, DO) Shortness of breath (Acute) Supratherapeutic INR (Acute) Hyperkalemia (Acute) Problem with dialysis access (Acute) CHF (congestive heart failure) (Acute) MOUNA (acute kidney injury) (Acute) Acute respiratory failure (Resolved) Pneumonia, community acquired (Resolved) Sepsis (Resolved) #1 acute on chronic diastolic congestive heart failure-continue IV Lasix at this time #2 combined acute respiratory failure-possibly secondary to pain medication administration on an overlying obstructive sleep apnea-patient is currently on nasal cannula O2, he will need BiPAP when sleeping and at bedtime, he will need to follow-up with pulmonary at the time of discharge to have a sleep study completed-he does not remember when his last sleep study was performed he feels it was done at the [facility]. #3 paroxysmal atrial fib-now in sinus rhythm #4 essential hypertension #5 obstructive sleep apnea-patient will need follow-up with pulmonary medicine as an outpatient, I suspect he will need a repeat sleep study performed as an outpatient. #6 class III obesity #7 type 2 diabetes #8 chronic kidney disease stage IV-probably secondary to diabetes #9 elevated INR-exact etiology unclear, recheck INR tomorrow, patient has been off Coumadin for 48 hours, I do not think the patient needs vitamin K #10 slight hematuria in [place]-no treatment for this at this time, if it worsens he will need vitamin K administration #11 elevated bilirubin-etiology unclear, patient had elevated bilirubin in 2017 but his most recent bilirubin before this admission in the computer is March 2019 and it was normal. Recheck liver profile tomorrow #12 hyperlipidemia-patient on Lipitor #13 hyperkalemia-resolved at this time, BMP will be rechecked tomorrow Inpatient E&M: 98491 Subs Hosp L2
[2019-10-29 17:03] LABS: Bedside Glucose 193 mg/dL (70-110)
[2019-10-29 17:03] LABS: Bedside Glucose 91 mg/dL (70-110)
[2019-10-29] MEDS: Insulin Lispro 100 UNIT/ML INSULN.PEN 6 UNIT SC (17:13)
[2019-10-29 17:32] LABS: Bedside Glucose 132 mg/dL (70-110)
[2019-10-29] MEDS: Atorvastatin Calcium 20 MG Tablet PO (21:39)
[2019-10-30] VITALS (11 sets, daily range): BP systolic 116–120; BP diastolic 52–68; PULSE 53–62; RESP 17–20; TEMP 36.4–37; O2SAT 96–99
[2019-10-30 00:01] LABS: Bedside Glucose 161 mg/dL (70-110)
--- NOTE | 2019-10-30 00:47 | NURSING ---
Return call to for update on pt. Gave , Zina, update. Zina states that pt's listed visitor is his father, her father in law d/t she was working nightshift this weekend. Zina would like to be able to visit pt, asked if it was possible to change pt's designated visitor. Advised Zina would check with box office manager and call her back before this shift ends. Zina receptive and voiced understanding. [place], ROBERTO Zina [phone]
--- NOTE | 2019-10-30 06:15 | CPS ---
PT CAME OFF BIPAP FOR SNACK
[2019-10-30 06:24] LABS: Prothrombin Time (Protime)PT. 46.9 SECONDS (11.7-14.9)
[2019-10-30 06:27] LABS: International Normalized Ratio 5.1
[2019-10-30 06:45] LABS: AST(SGOT) 14 U/L (15-37); Alanine Aminotransfer ALT/SGPT 21 U/L (16-61); Albumin, Serum 3.2 g/dL (3.2-5.0); Alkaline Phosphatase 146 U/L (45-117); Anion Gap 5 (5-15); BUN 52 mg/dL (7-18); BUN/Creat Ratio 21.5 RATIO (10-20); Bilirubin, Direct 0.78 mg/dL (0.00-0.30); Calcium,Total 8.6 mg/dL (8.5-10.1); Chloride 89 mmol/L (98-107); Creatinine, Serum 2.42 mg/dL (0.70-1.30); EST Glomerular Filtration Rate 29 mL/min (>60); Est Glom Filt Rate - Afr Amer 35 mL/min (>60); Estimated Creatinine Clearance 31.01 ml/min; Globulin 3.8 g/dL (2.2-4.2); Glucose 111 mg/dL (74-106); Sodium Level 138 mmol/L (136-145)
--- NOTE | 2019-10-30 07:52 | PCM.PROGNOTE ---
Patient Problems: Active and Suspected Problems (Last Updated 10/30/19 @ 07:[address] Ade Finn MD) Supratherapeutic INR (Acute) Hyperkalemia (Acute) Subjective: Chief complaint: Follow-up after admission for acute on chronic diastolic CHF and acute combined hypoxic and hypercapnic respiratory failure as well as hyperkalemia and supratherapeutic INR. Patient seen and examined. No acute events overnight. Today, he mentioned that his breathing is getting better compared to admission. Denied cough or sputum production. No fever or chills. Still having leg swelling. No chest pain. He mentioned that he was on oxygen at 2 L around 2 years ago but he did not use oxygen over the last couple of years. He is afebrile, heart rate has been around 50s, blood pressure stable, pulse ox is 96% on 3 L. - Physical Exam Vitals/I&O's: Vital Signs Temp Pulse Resp BP Pulse Ox 98.6 F 53 L 20 H 116/52 L 96 10/30/19 02:00 10/30/19 07:05 10/30/19 02:00 10/30/19 02:00 10/30/19 02:00 Oxygen Flow Rate (L/min) 3 Oxygen Delivery Method Nasal Cannula Weight: 343 lb 11.21 oz Body Mass Index (BMI) 54.0 Finger Stick Blood Glucose 479 Intake and Output for Last 24 Hours 10/28/19 10/29/19 10/30/19 23:59 23:59 23:59 Intake Total 870 / 970 1700 / 1700 170 / 170 Output Total 1850 / 3825 7325 / 7325 450 / 450 Balance -980 / -2855 -5625 / -5625 -280 / -280 General: Alert, Oriented x3, Cooperative, - - Minimal shortness of breath. HEENT: Atraumatic, PERRLA, EOMI, Normocephalic Oral: Moist Mucosa, No Gingival or Mucosal Lesions/ Ulcerations Neck: Supple, No JVD, Negative Carotid Bruits, Trachea Midline, Thyroid Normal Size and Texture Lungs: No rhonchi, No wheeze, No rales, Diminished, Short of Breath, - - Decreased breath sounds bilateral, more at the bases. Cardiovascular: Regular rate, Regular Rhythm, Normal S1, Normal S2, PMI Normal, Bradycardic Abdomen: Bowel Sounds Present, Soft, Non Tender, Non-Distended, No Hepato-splenomegaly, Obese Extremities: No clubbing, No cyanosis, Edema Skin: No rashes, No breakdown Lymphatic: No Cervical, Supraclavicular, or Inguinal Adenopathy Neurological: Cranial nerves II-XII grossly intact, Neuro grossly intact Psych/Mental Status: Normal Affect, Appropriate, Alert and oriented to time, place, person, mood and affect Laboratory Results 10/29/19 06:37: POC Glucose 91 10/29/19 11:30: POC Glucose 193 H 10/29/19 17:11: POC Glucose 132 H 10/29/19 21:38: POC Glucose 161 H 10/30/19 05:54: PT 46.9 H, INR 5.1 H* 10/30/19 05:54: Sodium 138, Potassium 3.0 L, Chloride 89 L, Carbon Dioxide 44.0 H, Anion Gap 5, BUN 52 H, Creatinine 2.42 H, Estim Creat Clear Calc 31.01, Est GFR (MDRD) Af Amer 35 L, Est GFR (MDRD) Non-Af 29 L, BUN/Creatinine Ratio 21.5 H, Glucose 111 H, Calcium 8.6, Total Bilirubin 1.30 H, Direct Bilirubin 0.78 H, AST 14 L, ALT 21, Alkaline Phosphatase 146 H, Total Protein 7.0, Albumin 3.2, Globulin 3.8 Current Medications Acetaminophen (Tylenol) 650 mg PO Q6H PRN PRN PRN Reason: Pain Score 1-10/Temp > 100.7 F Last Admin: 10/28/19 07:32 Dose: 650 mg Documented by: Al Hydroxide/Mg Hydroxide (Mylanta Ii) 30 ml PO Q6H PRN PRN PRN Reason: Gastric Burning Amiodarone HCl (Cordarone) 200 mg PO BID [facility] Last Admin: 10/29/19 21:39 Dose: 200 mg Documented by: Atorvastatin Calcium (Lipitor) 20 mg PO QHS [facility] Last Admin: 10/29/19 21:39 Dose: 20 mg Documented by: Dextrose (D50w Syringe) 0 gm IV X1 PRN; Protocol PRN Reason: Hypoglycemia Furosemide (Lasix) 40 mg IV BID@1000,1800 [facility] Glucagon () 1 mg IM .X1 PRN PRN Reason: Hypoglycemia Guaifenesin (Robitussin) 20 ml PO Q4H PRN PRN PRN Reason: COUGH Hydralazine HCl (Apresoline Iv) 10 mg IV Q4H PRN PRN PRN Reason: SBP > 160 Sodium Chloride () 250 mls @ 15 mls/hr IV .[id number] PRN PRN Reason: Saline Flush Sodium Chloride () 250 mls @ 15 mls/hr IV .[id number] PRN PRN Reason: Additional IVPB Infusion Insulin Glargine (Lantus (Bkc)) 40 units SC BID [facility] Last Admin: 10/29/19 21:40 Dose: 40 u Documented by: Insulin Human Lispro (Humalog Kwikpen (Bk)) 7 unit SC BREAKFAST [facility] Last Admin: 10/29/19 09:25 Dose: 7 u Documented by: Insulin Human Lispro (Humalog Kwikpen (Bkc)) 6 unit SC DINNER [facility] Last Admin: 10/29/19 17:13 Dose: 6 units Documented by: Insulin Human Lispro (Humalog Kwikpen (Bk)) 5 unit SC LUNCH [facility] Last Admin: 10/29/19 11:31 Dose: 5 u Documented by: Insulin Human Lispro (Humalog Kwikpen (Bk)) 0 unit SC ACHS [facility]; Protocol Last Admin: 10/29/19 21:39 Dose: 3 u Documented by: Magnesium Hydroxide (Milk Of Magnesia) 30 ml PO DAILY PRN PRN PRN Reason: Constipation Metoprolol Succinate (Toprol Xl (Beta Rakesh)) 50 mg PO DAILY [facility] Last Admin: 10/29/19 09:24 Dose: 50 mg Documented by: Nitroglycerin (Nitrostat) 0.4 mg SUBLINGUAL Q5M PRN PRN Reason: CARDIAC/CHEST PAIN Ondansetron HCl (Zofran) 4 mg IV Q8H PRN PRN PRN Reason: NAUSEA/VOMITING [facility] Prochlorperazine Edisylate (Compazine Iv) 5 mg IV Q4H PRN PRN PRN Reason: Breakthrough Nausea/Vomiting Psyllium Hydrophilic Mucilloid (Metamucil) 1 packet PO DAILY PRN PRN PRN Reason: Constipation Senna/Docusate Sodium (Senokot-S, Shey-Colace) 2 tablet PO BID PRN PRN PRN Reason: Constipation Sodium Chloride () 10 - 40 ml IV UD PRN PRN Reason: SALINE FLUSH Last Admin: 10/28/19 20:42 Dose: 20 ml Documented by: Throat Lozenges (Cepacol Sore Throat Lozenge) 1 lozenge MUCOUS MEM Q2H PRN PRN PRN Reason: SORE THROAT Torsemide (Demadex) 20 mg PO BID [facility] Medical Necessity - Tobacco Use Smoking Status: Former smoker Tobacco Use: Non-smoker Assessment/Plan All Active Problems (Last Updated 10/30/19 @ 07:[address] Ade Finn MD) CHF (congestive heart failure) (Acute) Supratherapeutic INR (Acute) Hyperkalemia (Acute) This is a 59 years old male patient presented to the emergency room because of shortness of breath, found to have acute on chronic diastolic CHF complicated by acute combined hypoxic and hypercapnic respiratory failure and also found to have hyperkalemia and supratherapeutic INR. #1 acute on chronic diastolic CHF: Patient is on IV Lasix, on metoprolol as well. He is not on ARUN inhibitor because of chronic kidney disease. He had 2D echocardiogram on April, that revealed ejection fraction of 60%. He does have a history of pulmonary hypertension. EKG revealed sinus bradycardia with first-degree AV block, RBBB, no acute changes. Troponin was negative. BNP was slight elevated. Plan: Change Lasix to 40 mg IV twice daily, resume torsemide twice daily, replace potassium, repeat CBC and BMP tomorrow morning. #2 acute combined hypoxic and hypercapnic respiratory failure: Secondary to #1. Patient did mention that he was on oxygen 2 years ago 2 L at home. But he has been off oxygen since that time. Currently, on 3 L of oxygen. Plan to treat underlying etiology, wean off oxygen as tolerated, patient will need ambulatory pulse oximetry before discharge. #3 hyperkalemia: Potassium treated medically with Kayexalate. It came down to normal, today's potassium is 3. It is likely because of IV diuresis. Plan to replace potassium by p.o. potassium chloride. #4 Coumadin induced coagulopathy: Patient has been on Coumadin for atrial flutter/A. fib. Today's INR is 5.1. He has been off Coumadin. Hemoglobin and hematocrit are stable. He started having dark urine, possible hematuria. Plan to monitor, keep holding Coumadin, repeat INR tomorrow morning. #5 stage IV chronic kidney disease: Baseline creatinine has been around 2 to 2.7 mg/dL. Today's creatinine is 2.42, improving since admission. Patient is on IV diuresis with IV Lasix, started on torsemide today. Plan to monitor. #6 type 2 diabetes mellitus: Blood sugar stable, continue Lantus twice daily and Humalog insulin 3 times daily as well as sliding scale. #7 atrial flutter/paroxysmal atrial fibrillation: Heart rate has been in the 50s which is his baseline. Blood pressure stable, continue amiodarone and metoprolol for rate control. INR is 5.1. #8 hypertension: Blood pressure stable, continue IV Lasix and metoprolol, resume torsemide. #9 history of PDA/valvular heart disease: Status post repair at [facility], history of repair for VSD. Stable. #10 hyperlipidemia: Continue statins. #11 obstructive sleep apnea: Continue CPAP at night. #12 DVT prophylaxis: INR is 5.1. This note was generated with [employer] dictation software. It may contain incorrect words, spelling, and punctuation that were not noted in checking the note before signing. Inpatient E&M: [id number] Subs Hosp L2
[2019-10-30] MEDS: Insulin Lispro 100 UNIT/ML INSULN.PEN 7 UNIT SC (08:32)
[2019-10-30] MEDS: Amiodarone 200 MG Tablet PO ×2 (08:33→21:12)
[2019-10-30] MEDS: Furosemide 40 MG/4 ML Vial IV ×2 (08:34→17:13)
[2019-10-30] MEDS: Metoprolol(XL)Succ 50 MG Tablet PO (08:35)
[2019-10-30 10:11] LABS: Bedside Glucose 102 mg/dL (70-110)
--- NOTE | 2019-10-30 10:56 | CASEMGMT ---
RN CM Assessment Note Presentation: CHF, Hyperkalemia, Supratherapeutic INR Intro role of CM to patient who is sitting in chair, awake, alert and oriented. Discussed how pt was doing @ home, and he states the past few weeks he has been struggling, feeling weaker, difficulty with stairs. Pt requesting to return to [facility] for PT/OT on dc; he has been there earlier in year. RN CM let pt know SW would be updated. PCP: Dr. Alcazar Specialists: Dr. Sheffield Insurance: [facility] Preferred Pharmacy: [facility] Benefit: yes LNOK: Zina Living Arrangements: Lives in two story home with and son. Bed/Bath on 2nd floor with 12 steps and handrail. assists with ADL's, transportation, meals. DME: none HHC: earlier in year, after he was dc'd from [facility]- does not know name. SNF: [facility] and pt is requesting to return on dc. Patient DC Goals: SNF DC Plan: anticipate SNF. Contact CM for any concerns/needs that may arise. Chrissie RAGSDALEN RN ACM
[2019-10-30] MEDS: Insulin Lispro 100 UNIT/ML INSULN.PEN SC ×3 (11:00→21:13)
[2019-10-30 11:25] LABS: Bedside Glucose 152 mg/dL (70-110)
--- NOTE | 2019-10-30 12:26 | CASEMGMT ---
Addendum entered by Ellie Cartagena 10/30/19 12:29: SHAWN also faxed information to [facility] as they require clinicals in order to give the okay to proceed with pre-cert request. Ellie CAMARGO Original Note: Per RN CM patient would like to go to [facility] at discharge. SHAWN called [facility] with referral and also faxed information. SHAWN spoke with Farida at [facility] as she inquired if he has his own bipap/cpap. SHAWN called patient in his room as he is in precautions due to pending COVID test. He said he would have his own cpap. SHAWN called Farida back and left her a voice mail letting her know this information. Ellie CISNEROS MSW
[2019-10-30] MEDS: Insulin Lispro 100 UNIT/ML INSULN.PEN 6 UNIT SC (17:12)
[2019-10-30] MEDS: 0.9% Saline Lock 10 ML Syringe IV (17:14)
[2019-10-30 17:30] LABS: Bedside Glucose 119 mg/dL (70-110)
[2019-10-30] MEDS: Atorvastatin Calcium 20 MG Tablet PO (21:12)
[2019-10-30 22:46] LABS: Bedside Glucose 169 mg/dL (70-110)
[2019-10-31] VITALS (14 sets, daily range): BP systolic 112–121; BP diastolic 54–63; PULSE 54–67; RESP 16–21; TEMP 36.7–37.1; O2SAT 92–96
[2019-10-31] MEDS: MELATONIN 3 MG TABLET 6 MG PO (00:30)
[2019-10-31 06:21] LABS: Absolute Lymphocyte Count 0.68 X10^3/uL (0.83-4.51); Absolute Neutrophil Count 6.4 X10^3/uL (2.0-7.7); Basophil# 0.02 X10^3/uL; Basophil% 0.2 % (0-1); Eosinophil# 0.03 X10^3/uL; Eosinophils% 0.4 % (0-5); Hematocrit 40.1 % (40-54); Hemoglobin 12.1 g/dL (13.0-16.5); Lymphocyte # 0.68 X10^3/ul (4.0); Lymphocyte % 8.2 % (19-41); Mean Corp Hgb Conc 30.2 g/dL (32-36); Mean Corpuscular Volume 89.5 fL (80-94); Monocyte# 1.23 X10^3/uL; Monocyte% 14.7 % (0-10); NRBC Flagged by Analyzer 0 % (0-5); Neutrophil # 6.36 X10^3/uL (2.7-7.7); Neutrophil % 76.3 % (47-70); Platelet Count 193 K/mm3 (150-450); RBC Distribution Width CV 16.6 % (11.6-14.6); RBC Distribution Width SD 53.2 fl (35.1-43.9); Red Blood Count 4.48 M/mm3 (4.6-6.2); White Blood Count 8.3 K/mm3 (4.4-11.0)
[2019-10-31 06:36] LABS: Prothrombin Time (Protime)PT. 39.5 SECONDS (11.7-14.9)
[2019-10-31 06:37] LABS: International Normalized Ratio 4.1
[2019-10-31 07:09] LABS: BUN 46 mg/dL (7-18); BUN/Creat Ratio 21.1 RATIO (10-20); Calcium,Total 8.5 mg/dL (8.5-10.1); Carbon Dioxide > 45.0 mmol/L (21.0-32.0); Chloride 84 mmol/L (98-107); Creatinine, Serum 2.18 mg/dL (0.70-1.30); EST Glomerular Filtration Rate 33 mL/min (>60); Est Glom Filt Rate - Afr Amer 40 mL/min (>60); Estimated Creatinine Clearance 34.43 ml/min; Glucose 88 mg/dL (74-106); Potassium 2.8 mmol/L (3.5-5.1); Sodium Level 136 mmol/L (136-145)
--- NOTE | 2019-10-31 08:17 | PCM.PROGNOTE ---
Patient Problems: Active and Suspected Problems (Last Updated 10/30/19 @ 07:[address] Ade Finn MD) Supratherapeutic INR (Acute) Hyperkalemia (Acute) Subjective: Chief complaint: Follow-up after admission for acute on chronic diastolic CHF and acute combined hypoxic and hypercapnic respiratory failure as well as hyperkalemia and supratherapeutic INR. Patient seen and examined. No acute events overnight. Today, he is feeling better, shortness of breath continued to improve slowly. Denied chest pain or palpitation. No cough or sputum production. Tolerating BiPAP overnight. Pulse ox is 95% on 3 L this morning. Other vital signs are stable. - Physical Exam Vitals/I&O's: Vital Signs Temp Pulse Resp BP Pulse Ox 98.0 F 57 L 20 H 121/60 H 95 10/31/19 03:00 10/31/19 03:00 10/31/19 03:00 10/31/19 03:00 10/31/19 07:10 Oxygen Flow Rate (L/min) 3 Oxygen Delivery Method Nasal Cannula Weight: 338 lb 3.025 oz Body Mass Index (BMI) 54.0 Finger Stick Blood Glucose 479 Intake and Output for Last 24 Hours 10/29/19 10/30/19 10/31/19 23:59 23:59 23:59 Intake Total 1700 / 1700 1260 / 1260 50 / 50 Output Total 7325 / 7325 3400 / 3400 1100 / 1100 Balance -5625 / -5625 -2140 / -2140 -1050 / -1050 General: Alert, Oriented x3, Cooperative, No apparent distress HEENT: Atraumatic, PERRLA, EOMI, Normocephalic Oral: Moist Mucosa, No Gingival or Mucosal Lesions/ Ulcerations Neck: Supple, No JVD, Negative Carotid Bruits, Trachea Midline, Thyroid Normal Size and Texture Lungs: No rhonchi, No wheeze, No rales, Diminished, - - Diminished breath sounds bilateral, otherwise clear. Cardiovascular: Regular rate, Regular Rhythm, Normal S1, Normal S2, PMI Normal, Bradycardic Abdomen: Bowel Sounds Present, Soft, Non Tender, Non-Distended, Obese Extremities: No clubbing, No cyanosis, Edema Skin: No rashes, No breakdown Lymphatic: No Cervical, Supraclavicular, or Inguinal Adenopathy Neurological: Cranial nerves II-XII grossly intact, Neuro grossly intact Psych/Mental Status: Normal Affect, Appropriate, Alert and oriented to time, place, person, mood and affect Laboratory Results 10/30/19 08:08: POC Glucose 102 10/30/19 10:59: POC Glucose 152 H 10/30/19 12:35: COVID-19 ([facility]) Not Detected 10/30/19 17:04: POC Glucose 119 H 10/30/19 21:09: POC Glucose 169 H 10/31/19 05:55: WBC 8.3, RBC 4.48 L, Hgb 12.1 L, Hct 40.1, MCV 89.5, MCH 27.0, MCHC 30.2 L, RDW Std Deviation 53.2 H, RDW Coeff of Janiya 16.6 H, Plt Count 193, MPV 9.0, Immature Gran % (Auto) 0.200, Neut % (Auto) 76.3 H, Lymph % (Auto) 8.2 L, Stanton % (Auto) 14.7 H, Eos % (Auto) 0.4, Baso % (Auto) 0.2, Absolute Neuts (auto) 6.4, Absolute Lymphs (auto) 0.68 L, Nucleated RBC % 0 10/31/19 05:55: PT 39.5 H, INR 4.1 H* 10/31/19 05:55: Sodium 136, Potassium 2.8 L, Chloride 84 L, Carbon Dioxide > 45.0 H*, Anion Gap TNP, BUN 46 H, Creatinine 2.18 H, Estim Creat Clear Calc 34.43, Est GFR (MDRD) Af Amer 40 L, Est GFR (MDRD) Non-Af 33 L, BUN/Creatinine Ratio 21.1 H, Glucose 88, Calcium 8.5 Current Medications Acetaminophen (Tylenol) 650 mg PO Q6H PRN PRN PRN Reason: Pain Score 1-10/Temp > 100.7 F Last Admin: 10/28/19 07:32 Dose: 650 mg Documented by: Al Hydroxide/Mg Hydroxide (Mylanta Ii) 30 ml PO Q6H PRN PRN PRN Reason: Gastric Burning Amiodarone HCl (Cordarone) 200 mg PO BID DANIEL Last Admin: 10/30/19 21:12 Dose: 200 mg Documented by: Atorvastatin Calcium (Lipitor) 20 mg PO QHS [facility] Last Admin: 10/30/19 21:12 Dose: 20 mg Documented by: Dextrose (D50w Syringe) 0 gm IV X1 PRN; Protocol PRN Reason: Hypoglycemia Furosemide (Lasix) 40 mg IV BID@1000,1800 [facility] Last Admin: 10/30/19 17:13 Dose: 40 mg Documented by: Glucagon () 1 mg IM .X1 PRN PRN Reason: Hypoglycemia Guaifenesin (Robitussin) 20 ml PO Q4H PRN PRN PRN Reason: COUGH Hydralazine HCl (Apresoline Iv) 10 mg IV Q4H PRN PRN PRN Reason: SBP > 160 Sodium Chloride () 250 mls @ 15 mls/hr IV .[id number] PRN PRN Reason: Saline Flush Sodium Chloride () 250 mls @ 15 mls/hr IV .[id number] PRN PRN Reason: Additional IVPB Infusion Insulin Glargine (Lantus (Bkc)) 40 units SC BID [facility] Last Admin: 10/30/19 21:13 Dose: 40 u Documented by: Insulin Human Lispro (Humalog Kwikpen (Bkc)) 7 unit SC BREAKFAST [facility] Last Admin: 10/30/19 08:32 Dose: 7 u Documented by: Insulin Human Lispro (Humalog Kwikpen (Bkc)) 6 unit SC DINNER [facility] Last Admin: 10/30/19 17:12 Dose: 6 units Documented by: Insulin Human Lispro (Humalog Kwikpen (Bkc)) 5 unit SC LUNCH [facility] Last Admin: 10/30/19 11:00 Dose: 5 u Documented by: Insulin Human Lispro (Humalog Kwikpen (Bkc)) 0 unit SC ACHS [facility]; Protocol Last Admin: 10/30/19 21:13 Dose: 3 u Documented by: Magnesium Hydroxide (Milk Of Magnesia) 30 ml PO DAILY PRN PRN PRN Reason: Constipation Metoprolol Succinate (Toprol Xl (Beta Rakesh)) 50 mg PO DAILY [facility] Last Admin: 10/30/19 08:35 Dose: 50 mg Documented by: Nitroglycerin (Nitrostat) 0.4 mg SUBLINGUAL Q5M PRN PRN Reason: CARDIAC/CHEST PAIN Ondansetron HCl (Zofran) 4 mg IV Q8H PRN PRN PRN Reason: NAUSEA/VOMITING Potassium Chloride (K-Dur) 40 meq PO BIDCM [facility] Last Admin: 10/30/19 17:12 Dose: 40 meq Documented by: Prochlorperazine Edisylate (Compazine Iv) 5 mg IV Q4H PRN PRN PRN Reason: Breakthrough Nausea/Vomiting Psyllium Hydrophilic Mucilloid (Metamucil) 1 packet PO DAILY PRN PRN PRN Reason: Constipation Senna/Docusate Sodium (Senokot-S, Shey-Colace) 2 tablet PO BID PRN PRN PRN Reason: Constipation Sodium Chloride () 10 - 40 ml IV UD PRN PRN Reason: SALINE FLUSH Last Admin: 10/30/19 17:14 Dose: 10 ml Documented by: Throat Lozenges (Cepacol Sore Throat Lozenge) 1 lozenge MUCOUS MEM Q2H PRN PRN PRN Reason: SORE THROAT Torsemide (Demadex) 20 mg PO BIDLX [facility] Last Admin: 10/30/19 17:13 Dose: 20 mg Documented by: Medical Necessity - Tobacco Use Smoking Status: Former smoker Tobacco Use: Non-smoker Assessment/Plan All Active Problems (Last Updated 10/30/19 @ 07:[address] Ade Finn MD) CHF (congestive heart failure) (Acute) Supratherapeutic INR (Acute) Hyperkalemia (Acute) This is a 59 years old male patient presented to the emergency room because of shortness of breath, found to have acute on chronic diastolic CHF complicated by acute combined hypoxic and hypercapnic respiratory failure and also found to have hyperkalemia and supratherapeutic INR. #1 acute on chronic diastolic CHF: He is on IV Lasix, p.o. torsemide and metoprolol. He is not on ARUN inhibitor because of chronic kidney disease. Urine output is satisfactory, he lost around 17 pounds since admission. He had 2D echocardiogram on April, that revealed ejection fraction of 60%. He does have a history of pulmonary hypertension. Serum bicarb is elevated likely because of metabolic alkalosis. Today's potassium is 2.8, serum creatinine has been improving. Plan: Replace potassium, continue IV diuresis, wean off oxygen as tolerated, PT OT evaluation, patient [facility] need [facility]. #2 acute combined hypoxic and hypercapnic respiratory failure: Secondary to #1. He has been tolerating BiPAP overnight. Yesterday, he was able to go down to 2 L of oxygen. Pulmonology was consulted overnight for adjustment of his CPAP and BiPAP settings. Patient did mention that he was on oxygen 2 years ago 2 L at home. Plan: Continue IV diuresis, wean off oxygen as tolerated, ambulatory pulse oximeter. #3 hyperkalemia: Potassium treated medically with Kayexalate. It came down to normal, today's potassium is 2.8. It is likely because of IV diuresis. He has been on K. Dur 40 mEq twice daily but potassium still low. Plan to give a higher dose of K. Dur 60 mEq this morning. #4 Coumadin induced coagulopathy: Patient has been on Coumadin for atrial flutter/A. fib. Today's INR is 4.1. He has been off Coumadin. Hemoglobin and hematocrit are stable. Plan to repeat INR tomorrow morning. #5 stage IV chronic kidney disease: Baseline creatinine has been around 2 to 2.7 mg/dL. Today's creatinine is 2.18, improving since admission. Patient is on IV diuresis with IV Lasix, on torsemide as well. Plan to monitor. #6 type 2 diabetes mellitus: Blood sugar stable, continue Lantus twice daily and Humalog insulin 3 times daily as well as sliding scale. #7 atrial flutter/paroxysmal atrial fibrillation: Heart rate has been in the 50s which is his baseline. Blood pressure stable, continue amiodarone and metoprolol for rate control. INR is 4.1. #8 hypertension: Blood pressure stable, continue IV Lasix and metoprolol, continue torsemide. #9 history of PDA/valvular heart disease: Status post repair at [facility], history of repair for VSD. Stable. #10 hyperlipidemia: Continue statins. #11 obstructive sleep apnea: Continue BiPAP at night while in the hospital. Pulmonology consult for adjustment of CPAP settings at home. #12 DVT prophylaxis: INR is 4.1. This note was generated with [employer] software. It may contain incorrect words, spelling, and punctuation that were not noted in checking the note before signing. Inpatient E&M: 13706 Subs Hosp L2
--- NOTE | 2019-10-31 08:43 | CASEMGMT ---
Addendum entered by Ellie Cartagena 10/31/19 09:25: SW received a call from Ragini at [facility]. She said she got SW's fax and they will see if they have a bipap and if not they will order one. She also asked SW to please fax patient's COVID test results. SHAWN faxed patient's negative COVID results to [facility]. Ellie CISNEROS MARKETING EDITOR Original Note: Per manager of manufacturing Dr Soria, Sales Trader does not feel patient should use his home cpap as he needs a bipap. He will also need a sleep study after he leaves the long-term. SHAWN faxed bipap settings to Farida at [facility] and will follow up to make sure she received information. SHAWN received a voice mail from Mayda with [facility]. She could not read the PT notes SW faxed her. She asked that they be re-sent. SHAWN re-faxed PT eval and treatments. Ellie CISNERSO MARKETING EDITOR
--- NOTE | 2019-10-31 08:44 | PCM.CONS.PUL ---
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 Paul at [facility] in Apr and October of 1998 (7) Nonrheumatic tricuspid valve regurgitation Status: Chronic Comment: Leaflet used for VSD repair in past (8) History of ventricular septal defect repair Status: Chronic Comment: 1977 (pt approx age 18) using Dacron patch, done at [facility] (9) Hyperlipidemia Status: Chronic Qualifiers: Hyperlipidemia type: unspecified Qualified Code(s): E78.5 - Hyperlipidemia, unspecified (10) Hypertension Status: Chronic Qualifiers: Hypertension type: essential hypertension Qualified Code(s): I10 - Essential (primary) hypertension (11) Diabetes mellitus, type II Status: Chronic Qualifiers: Diabetes mellitus predatory animal exterminator insulin use: with predatory animal exterminator use Diabetes mellitus complication status: with other specified complication Qualified Code(s): E11.69 - Type 2 diabetes mellitus with other specified complication; Z79.4 - assisted (current) use of insulin (12) History of radiofrequency ablation procedure for cardiac arrhythmia Status: Chronic Comment: Attempted atrial flutter ablation @ [facility] X 1 (unsuccessful), followed by Atrial flutter ablations X [address] Paul at [facility] in Apr and October of 1998 (13) Pulmonary hypertension, moderate to severe Status: Chronic Comment: PASP 69 mmHg in September 2013 (14) LASHAWN (obstructive sleep apnea) Status: Chronic Reason for Consult Date of Consultation: 10/31/19 Reason for Consultation: Concern for undertreated LASHAWN History of Present Illness: The patient is a 59 year old M, with past medical history listed below and known to me from previous hospitalizations, who presented to [facility] on 10/28/2019 secondary to progressive shortness of breath. Patient had reported INR and potassium were elevated on recent blood work. Patient did not report any concomitant chest pain, but did have some bloating and is slightly constipated. Patient had had recent changes in his diuretic therapy and is chronically on Coumadin therapy secondary to atrial fibrillation. In the ER, patient was thought to be volume overloaded with poor air movement. Patient had bilateral lower extremity edema and an elevated BNP. Chest x-ray showed bilateral cephalization. Patient was given Lasix, calcium gluconate and Kayexalate for an elevated potassium. EKG showed sinus bradycardia with first-degree AV block and patient was noted to be 88% until being placed on increased supplemental oxygen. Patient was placed on the PCU and responded well to diuretic therapy. Patient did desaturate overnight on his home settings, so there is concern for untreated sleep apnea leading to recurrent admissions. This led to a pulmonary consultation. Patient reportedly has a CPAP of 9 cm of water at home. Patient states he is compliant with therapy and feels that he tolerates this well. Patient has had significant issues with nocturia while at home. Patient reportedly will be going to a assisted following this hospitalization. Patient does feel subjectively improved from a dyspneic standpoint and he attributes this to his diuresis. Patient does have a Barcenas in place. Patient states it is been quite sometime since he has had a repeat titration. Patient estimates that he has had some weight gain, but is unable to quantify secondary to his highly variable weight associated with pulmonary edema. Review of systems otherwise negative from a constitutional, HEENT, respiratory, cardiovascular, GI, genitourinary, musculoskeletal, skin, neurologic, psychiatric and hematologic system unless stated above. Past Medical History Past Medical History (Chronic Problems): Chronic Problems (Last Updated 10/30/19 @ 07:[address] 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 Sherif Espinoza @ [facility]: normal coronaries, mildly elevated PA pressures Paroxysmal SVT (supraventricular tachycardia) (Chronic) Atrial fibrillation (Chronic) History of atrial flutter (Chronic) Attempted atrial flutter ablation @ [facility] X 1 in 1997 (unsuccessful), followed by Atrial flutter ablations X [address] Paul at [facility] in Apr and October of 1998 Chronic diastolic congestive heart failure (Chronic) History of patent ductus arteriosus as a child (Chronic) Repaired at age 3 years, done @ [facility] Nonrheumatic tricuspid valve regurgitation (Chronic) Leaflet used for VSD repair in past History of ventricular septal defect repair (Chronic) 1977 (pt approx age 18) using Dacron patch, done at [facility] Hyperlipidemia (Chronic) Hypertension (Chronic) Diabetes mellitus, type II (Chronic) History of radiofrequency ablation procedure for cardiac arrhythmia (Chronic) Attempted atrial flutter ablation @ [facility] X 1 (unsuccessful), followed by Atrial flutter ablations X [address] Paul at [facility] in Apr and October of 1998 Pulmonary hypertension, moderate to severe (Chronic) PASP 69 mmHg in September 2013 LASHAWN (obstructive sleep apnea) (Chronic) Medical History: Medical History (Last Updated 10/30/19 @ 07:[address] Ade Finn MD) assisted current use of anticoagulant (Chronic) Z79.01 Paroxysmal SVT (supraventricular tachycardia) (Chronic) I47.1 Atrial fibrillation (Chronic) I48.91 History of atrial flutter (Chronic) Z86.79 Attempted atrial flutter ablation @ [facility] X 1 in 1997 (unsuccessful), followed by Atrial flutter ablations X [address] Paul at [facility] in Apr and October of 1998 Chronic diastolic congestive heart failure (Chronic) I50.32 History of patent ductus arteriosus as a child (Chronic) Z87.74 Repaired at age 3 years, done @ [facility] Nonrheumatic tricuspid valve regurgitation (Chronic) I36.1 Leaflet used for VSD repair in past Hyperlipidemia (Chronic) E78.5 Hypertension (Chronic) I10 Diabetes mellitus, type II (Chronic) E11.9 Pulmonary hypertension, moderate to severe (Chronic) I27.2 PASP 69 mmHg in September 2013 LASHAWN (obstructive sleep apnea) (Chronic) G47.33 History of arm fracture Z87.81 X2 History of paroxysmal supraventricular tachycardia (Inactive) Z86.79 Allergies albuterol Adverse Reaction (Verified 10/28/19 00:17) NEEDS FOLLOW-UP increased heart rate. amoxicillin trihydrate [From Augmentin] Adverse Reaction (Verified 10/28/19 00:17) Diarrhea indomethacin [From Indocin] Adverse Reaction (Verified 10/28/19 00:17) Nausea potassium clavulanate [From Augmentin] Adverse Reaction (Verified 10/28/19 00:17) Diarrhea Home Medications: Ambulatory Orders Medication Instructions Recorded Atorvastatin Calcium 20 mg PO QHS 04/16/19 Insulin Glargine [Lantus SoloStar 40 units SUBCUT BID pen 04/28/19 Pen] Insulin Lispro [Humalog KwikPen] 5 unit SUBCUT LUNCH insuln.pen 04/28/19 Insulin Lispro [Humalog KwikPen] 6 unit SUBCUT DINNER insuln.pen 04/28/19 Insulin Lispro [Humalog KwikPen] 7 unit SUBCUT BREAKFAST insuln.pen 04/28/19 Insulin Lispro [Humalog KwikPen] See Protocol SUBCUT ACHS 04/28/19 insuln.pen Metoprolol(XL)Succ [Toprol Xl 50 mg PO DAILY tab 04/28/19 (Beta Rakesh)] Amiodarone HCl 200 mg PO BID 08/08/19 Furosemide [Lasix] 20 mg PO BIDLX 08/08/19 Multivitamin [Daily Multiple 1 ea PO DAILY 10/28/19 Vitamin] Potassium Chloride [K-Dur] 20 meq PO TID 10/28/19 Torsemide [Demadex] 20 mg PO BID 10/28/19 Warfarin Sodium [Coumadin] 2.5 mg PO .COMPLEX 10/28/19 Warfarin Sodium [Coumadin] 5 mg PO .COMPLEX 10/28/19 Surgical History: Surgical History (Last Reviewed 10/28/19 @ 03:[address] Fredi Cobb, DO) History of right and left heart catheterization (Chronic) Onset Date: 02/18/98 Z98.890 Done s/p VSD repair Per Dr. Sherif Espinoza @ [facility]: normal coronaries, mildly elevated PA pressures History of ventricular septal defect repair (Chronic) Z87.74 1977 (pt approx age 18) using Dacron patch, done at [facility] History of radiofrequency ablation procedure for cardiac arrhythmia (Chronic) Z98.890 Attempted atrial flutter ablation @ [facility] X 1 (unsuccessful), followed by Atrial flutter ablations X [address] Paul at [facility] in Apr and October of 1998 Surgical History: - - VSD repair using tricuspid valve leaflet, PDA repair, HD access, RFA x 3. Psychiatric History: No pertinent psych hx Lives: Spouse/ Significant Other Smoking Status: Former smoker Tobacco Use: Non-smoker Alcohol: None Drugs: None - *Family History Maternal Family History: Family History (Last Reviewed 10/28/19 @ 03:[address] Fredi Cobb DO) Mother Hypertension Diabetes CVA (cerebral vascular accident) Valvular heart disease Father CVA (cerebral vascular accident) Hypertension Hyperlipidemia History Items: Diabetes, High Cholesterol, Heart Disease, Hypertension, Stroke, - - Mother with history of concurrent valvular heart disease. Paternal Family History: Family History (Last Reviewed 10/28/19 @ 03:[address] Fredi Cobb DO) Mother Hypertension Diabetes CVA (cerebral vascular accident) Valvular heart disease Father CVA (cerebral vascular accident) Hypertension Hyperlipidemia History Items: High Cholesterol, Heart Disease, Hypertension, Stroke Review of Systems Comment: See HPI Patient Problems: Active and Suspected Problems (Last Updated 10/30/19 @ 07:[address] Ade Finn MD) Supratherapeutic INR (Acute) Hyperkalemia (Acute) Objective: All imaging was personally reviewed. Agree with formal interpretation. Patient has not had a pulmonary function test, but walking oximetry has been completed. This was reviewed. - Physical Exam Vitals/I&O's: Vital Signs Temp Pulse Resp BP Pulse Ox 36.7 C 57 L 20 H 121/60 H 95 10/31/19 03:00 10/31/19 03:00 10/31/19 03:00 10/31/19 03:00 10/31/19 07:10 Oxygen Flow Rate (L/min) 3 Oxygen Delivery Method Nasal Cannula Weight: 153.4 kg Body Mass Index (BMI) 54.0 Finger Stick Blood Glucose 479 Intake and Output for Last 24 Hours 10/29/19 10/30/19 10/31/19 23:59 23:59 23:59 Intake Total 1700 / 1700 1260 / 1260 50 / 50 Output Total 7325 / 7325 3400 / 3400 1100 / 1100 Balance -5625 / -5625 -2140 / -2140 -1050 / -1050 General: Alert, Oriented x3, Cooperative, No apparent distress, - - Morbidly obese. Able to stand on his own with the assistance of a walker. No conversational dyspnea noted. HEENT: Atraumatic, PERRLA, EOMI, Normocephalic, - - No scleral icterus or injection noted Oral: Moist Mucosa, No Gingival or Mucosal Lesions/ Ulcerations, - - Crowded posterior pharynx Neck: Supple, No JVD, No Nodes, Trachea Midline, - - Neck over 18 inches Lungs: No rhonchi, No wheeze, No rales, Diminished, - - Symmetric expansion. Cardiovascular: Regular rate, Regular Rhythm, Normal S1, Normal S2, Murmur - Grade 2 out of 6 systolic ejection murmur at the right sternal border, No rub noted, No Gallop Abdomen: Bowel Sounds Present, Soft, Non Tender, Non-Distended, Obese Extremities: No cyanosis, Edema Skin: No rashes, No breakdown Musculoskeletal: No Tenderness to Palpation of Joints or Extremities Lymphatic: No Cervical, Supraclavicular, or Inguinal Adenopathy Neurological: Cranial nerves II-XII grossly intact, Neuro grossly intact, Motor Exam 5/5 strength throughout Psych/Mental Status: Alert and oriented to time, place, person, mood and affect Laboratory Results 10/30/19 08:08: POC Glucose 102 10/30/19 10:59: POC Glucose 152 H 10/30/19 12:35: COVID-19 ([facility]) Not Detected 10/30/19 17:04: POC Glucose 119 H 10/30/19 21:09: POC Glucose 169 H 10/31/19 05:55: WBC 8.3, RBC 4.48 L, Hgb 12.1 L, Hct 40.1, MCV 89.5, MCH 27.0, MCHC 30.2 L, RDW Std Deviation 53.2 H, RDW Coeff of Janiya 16.6 H, Plt Count 193, MPV 9.0, Immature Gran % (Auto) 0.200, Neut % (Auto) 76.3 H, Lymph % (Auto) 8.2 L, [place] % (Auto) 14.7 H, Eos % (Auto) 0.4, Baso % (Auto) 0.2, Absolute Neuts (auto) 6.4, Absolute Lymphs (auto) 0.68 L, Nucleated RBC % 0 10/31/19 05:55: PT 39.5 H, INR 4.1 H* 10/31/19 05:55: Sodium 136, Potassium 2.8 L, Chloride 84 L, Carbon Dioxide > 45.0 H*, Anion Gap TNP, BUN 46 H, Creatinine 2.18 H, Estim Creat Clear Calc 34.43, Est GFR (MDRD) Af Amer 40 L, Est GFR (MDRD) Non-Af 33 L, BUN/Creatinine Ratio 21.1 H, Glucose 88, Calcium 8.5 Current Medications Acetaminophen (Tylenol) 650 mg PO Q6H PRN PRN PRN Reason: Pain Score 1-10/Temp > 100.7 F Last Admin: 10/28/19 07:32 Dose: 650 mg Documented by: Al Hydroxide/Mg Hydroxide (Mylanta Ii) 30 ml PO Q6H PRN PRN PRN Reason: Gastric Burning Amiodarone HCl (Cordarone) 200 mg PO BID [facility] Last Admin: 10/30/19 21:12 Dose: 200 mg Documented by: Atorvastatin Calcium (Lipitor) 20 mg PO QHS [facility] Last Admin: 10/30/19 21:12 Dose: 20 mg Documented by: Dextrose (D50w Syringe) 0 gm IV X1 PRN; Protocol PRN Reason: Hypoglycemia Furosemide (Lasix) 40 mg IV BID@1000,1800 [facility] Last Admin: 10/30/19 17:13 Dose: 40 mg Documented by: Glucagon () 1 mg IM .X1 PRN PRN Reason: Hypoglycemia Guaifenesin (Robitussin) 20 ml PO Q4H PRN PRN PRN Reason: COUGH Hydralazine HCl (Apresoline Iv) 10 mg IV Q4H PRN PRN PRN Reason: SBP > 160 Sodium Chloride () 250 mls @ 15 mls/hr IV .[id number] PRN PRN Reason: Saline Flush Sodium Chloride () 250 mls @ 15 mls/hr IV .[id number] PRN PRN Reason: Additional IVPB Infusion Insulin Glargine (Lantus (Bkc)) 40 units SC BID [facility] Last Admin: 10/30/19 21:13 Dose: 40 u Documented by: Insulin Human Lispro (Humalog Kwikpen (Bkc)) 7 unit SC BREAKFAST [facility] Last Admin: 10/30/19 08:32 Dose: 7 u Documented by: Insulin Human Lispro (Humalog Kwikpen (Bkc)) 6 unit SC DINNER [facility] Last Admin: 10/30/19 17:12 Dose: 6 units Documented by: Insulin Human Lispro (Humalog Kwikpen (Bkc)) 5 unit SC LUNCH [facility] Last Admin: 10/30/19 11:00 Dose: 5 u Documented by: Insulin Human Lispro (Humalog Kwikpen (Bkc)) 0 unit SC ACHS [facility]; Protocol Last Admin: 10/30/19 21:13 Dose: 3 u Documented by: Magnesium Hydroxide (Milk Of Magnesia) 30 ml PO DAILY PRN PRN PRN Reason: Constipation Metoprolol Succinate (Toprol Xl (Beta Rakesh)) 50 mg PO DAILY [facility] Last Admin: 10/30/19 08:35 Dose: 50 mg Documented by: Nitroglycerin (Nitrostat) 0.4 mg SUBLINGUAL Q5M PRN PRN Reason: CARDIAC/CHEST PAIN Ondansetron HCl (Zofran) 4 mg IV Q8H PRN PRN PRN Reason: NAUSEA/VOMITING Potassium Chloride (K-Dur) 40 meq PO BIDCM [facility] Last Admin: 10/30/19 17:12 Dose: 40 meq Documented by: Prochlorperazine Edisylate (Compazine Iv) 5 mg IV Q4H PRN PRN PRN Reason: Breakthrough Nausea/Vomiting Psyllium Hydrophilic Mucilloid (Metamucil) 1 packet PO DAILY PRN PRN PRN Reason: Constipation Senna/Docusate Sodium (Senokot-S, Shey-Colace) 2 tablet PO BID PRN PRN PRN Reason: Constipation Sodium Chloride () 10 - 40 ml IV UD PRN PRN Reason: SALINE FLUSH Last Admin: 10/30/19 17:14 Dose: 10 ml Documented by: Throat Lozenges (Cepacol Sore Throat Lozenge) 1 lozenge MUCOUS MEM Q2H PRN PRN PRN Reason: SORE THROAT Torsemide (Demadex) 20 mg PO BIDLX [facility] Last Admin: 10/30/19 17:13 Dose: 20 mg Documented by: Assessment/Plan All Active Problems (Last Updated 10/30/19 @ 07:[address] Ade Finn MD) CHF (congestive heart failure) (Acute) Supratherapeutic INR (Acute) Hyperkalemia (Acute) RECOMMENDATIONS: 1. Continue BiPAP 17/9 centimeters of water until formal PSG can be completed 2. Continue diuresis per hospitalist 3. Increase activity as tolerated 4. Continue current dose of basal insulin 5. Okay to transfer to [facility] from a pulmonary perspective on BiPAP therapy 6. Would attempt obtaining sleep study while at [facility] so that he can be discharged to home with appropriate BiPAP therapy. IMPRESSIONS: 1. Acute on chronic combined respiratory failure secondary to acute on chronic diastolic CHF Patient has responded well to diuretic therapy. However, patient is currently having hypokalemia and elevated bicarbonate. Long-term evaluation of bicarbonate is suggestive of CO2 retention, so transition to BiPAP therapy is appropriate. Patient will need a formal polysomnogram as an outpatient, but has been tolerating BiPAP 17/9 centimeters of water in the hospital. Do anticipate given body habitus that higher pressures will be required. 2. Acute on chronic kidney disease stage III/hyperkalemia Baseline creatinine of 2 and appears to be responding well to diuretic therapy. However, patient did have a significant drop in potassium levels overnight. Patient was treated for hyperkalemia initially, but is likely hypokalemic secondary to diuretics. Supplementation per hospitalist. 3. Chronic A. fib/chronic diastolic congestive heart failure/history of VSD repair/pulmonary hypertension Patient anticoagulated and doing well. No signs or symptoms of bleeding at this time. Patient may have an element of pulmonary hypertension leading to current findings. Patient could have a right heart catheterization as an outpatient, but high clinical suspicion for type II pulmonary hypertension. 4. Hypertension/type 2 diabetes mellitus/hyperlipidemia/morbid obesity/noncompliant LASHAWN Complicates care, management, recovery and prognosis. Patient has pretty good hyperglycemia control at this time. Inpatient E&M: 32001 Init Hosp L3
[2019-10-31] MEDS: Insulin Lispro 100 UNIT/ML INSULN.PEN 7 UNIT SC (10:14)
[2019-10-31] MEDS: Amiodarone 200 MG Tablet PO ×2 (10:15→21:03)
[2019-10-31] MEDS: Furosemide 40 MG/4 ML Vial IV ×2 (10:17→16:19)
[2019-10-31] MEDS: Metoprolol(XL)Succ 50 MG Tablet PO (10:17)
[2019-10-31] MEDS: 0.9% Saline Lock 10 ML Syringe IV (10:23)
[2019-10-31 12:10] LABS: Bedside Glucose 95 mg/dL (70-110)
[2019-10-31] MEDS: Insulin Lispro 100 UNIT/ML INSULN.PEN SC ×3 (12:11→21:04)
[2019-10-31 12:20] LABS: Bedside Glucose 177 mg/dL (70-110)
--- NOTE | 2019-10-31 12:25 | CASEMGMT ---
SHAWN received a call from Mayda at [facility]. She agrees with SNF placement. SHAWN called Ragini at [facility] and asked her to please start the pre-cert as patient will likely be ready tomorrow. Plan: [facility] pending insurance approval. Ellie CISNEROS MSW
[2019-10-31] MEDS: Insulin Lispro 100 UNIT/ML INSULN.PEN 6 UNIT SC (16:17)
[2019-10-31 16:45] LABS: Bedside Glucose 144 mg/dL (70-110)
[2019-10-31] MEDS: Atorvastatin Calcium 20 MG Tablet PO (21:03)
[2019-10-31 22:11] LABS: Bedside Glucose 158 mg/dL (70-110)
[2019-11-01] MEDS: Acetaminophen 325 MG Tablet 650 MG PO (00:15)
[2019-11-01 03:00] VITALS: BP 158/56; PULSE 53; RESP 19; TEMP 36.8; O2SAT 98
[2019-11-01 06:38] LABS: International Normalized Ratio 2.9; Prothrombin Time (Protime)PT. 30.2 SECONDS (11.7-14.9)
[2019-11-01 07:00] VITALS: PULSE 54
[2019-11-01 07:00] LABS: BUN 48 mg/dL (7-18); BUN/Creat Ratio 23.8 RATIO (10-20); Calcium,Total 8.5 mg/dL (8.5-10.1); Carbon Dioxide > 45.0 mmol/L (21.0-32.0); Chloride 82 mmol/L (98-107); Creatinine, Serum 2.02 mg/dL (0.70-1.30); EST Glomerular Filtration Rate 36 mL/min (>60); Est Glom Filt Rate - Afr Amer 43 mL/min (>60); Estimated Creatinine Clearance 37.15 ml/min; Glucose 101 mg/dL (74-106); Sodium Level 134 mmol/L (136-145)
[2019-11-01 07:15] VITALS: O2SAT 95
[2019-11-01] MEDS: Insulin Lispro 100 UNIT/ML INSULN.PEN 7 UNIT SC (08:19)
[2019-11-01 08:51] LABS: Bedside Glucose 90 mg/dL (70-110)
[2019-11-01 09:00] VITALS: BP 109/57; PULSE 59; RESP 16; TEMP 36.1; O2SAT 96
[2019-11-01] MEDS: Amiodarone 200 MG Tablet PO (09:13)
[2019-11-01 09:14] VITALS: PULSE 59
[2019-11-01] MEDS: Furosemide 40 MG/4 ML Vial IV (09:14)
[2019-11-01] MEDS: Metoprolol(XL)Succ 50 MG Tablet PO (09:14)
--- NOTE | 2019-11-01 09:30 | PCM.TXEXTCAR ---
- Diet 10/30/19 15:06 Diet: Cardiac: Calorie-Controlled Food consistency:: Regular Liquid Consistency:: Regular/Thin Dietary Modifications:: Low Potassium Restriction Fluid Restricted Diet Is pt able to select menu?: Yes Diet Comments: 1500 mL Fluid Restriction; low sodium, low potassium, 60 gm protein How many daily calories?: 2200 calorie - Routine Orders/Code Status O2 Liters per Minute: 2 O2 Frequency: Continuous Keep PO Greater than or Equal to (%): 92 Code Status: Full Code - Wound(s) Abdomen Wound Type: Scabbed area - Suggestions for Active Care Change Position every (hours): 3 Hours to sit in a chair: 2 Times a day to sit in chair: 3 - Therapies Weight Bearing: Weight bearing as tolerated Physical Therapy: Eval and Treat Occupational Therapy: Eval and Treat - Allergies/Procedures Done in Hospital Allergies/Adverse Reactions: Allergies albuterol Adverse Reaction (Verified 10/28/19 00:17) NEEDS FOLLOW-UP increased heart rate. amoxicillin trihydrate [From Augmentin] Adverse Reaction (Verified 10/28/19 00:17) Diarrhea indomethacin [From Indocin] Adverse Reaction (Verified 10/28/19 00:17) Nausea potassium clavulanate [From Augmentin] Adverse Reaction (Verified 10/28/19 00:17) Diarrhea - Type of Care/Length of Stay Estimated LOS: Convalescent Care Less Than 30 days Type of Care Needed: Skilled Rehab Potential: Fair Prognosis: Fair - Additional Orders/Day of Discharge Additional Orders: Continue BIPAP 17/9 CM of water. Pulmonolgy recommended sleep study at the SNF. H&P will serve as current which was dated: 10/28/19 Day of Discharge: 11/01/19 - Dietary and Speech Recommendations Dietitian Recommendations/Changes: Will change diet to 2200 calorie; cardiac/renal with low sodium/low potassium; 60 gm protein and 1500 ml FR. - Follow Up Care Primary Care Physician: Francisco Alcazar MD [Primary Care Provider] - Please follow up with your Primary Care Physician in: 1 week. Please Follow Up With: Gladys Mari PA When: 2 weeks. Please Follow Up With: Eyad Soria MD When: please call his office.
--- NOTE | 2019-11-01 09:47 | PN_ITS ---
Patient Problems: Active and Suspected Problems (Last Updated 10/30/19 @ 07:[address] Ade Finn MD) Supratherapeutic INR (Acute) Hyperkalemia (Acute) Subjective: Patient reports tolerance of BiPAP therapy overnight. Patient reports 5 hours of consolidated sleep, which is rare for him prior to hospitalization. Patient feels rested this morning. Patient tolerating p.o. diet and doing well. - Physical Exam Vitals/I&O's: Vital Signs Temp Pulse Resp BP Pulse Ox 36.1 C L 59 L 16 109/57 L 96 11/01/19 09:00 11/01/19 09:14 11/01/19 09:00 11/01/19 09:00 11/01/19 09:00 Oxygen Flow Rate (L/min) 2 Oxygen Delivery Method Nasal Cannula Weight: 153.3 kg Body Mass Index (BMI) 54.0 Finger Stick Blood Glucose 479 Intake and Output for Last 24 Hours 10/30/19 10/31/19 11/01/19 23:59 23:59 23:59 Intake Total 1260 / 1260 1535 / 1535 600 / 600 Output Total 3400 / 3400 4250 / 4250 600 / 600 Balance -2140 / -2140 -2715 / -2715 0 / 0 General: Alert, Oriented x3, Cooperative, No apparent distress, Well developed, Well nourished, - - Morbidly obese. Speaking in full sentences. HEENT: Atraumatic, PERRLA, EOMI, Normocephalic, - - No scleral icterus or injection noted Oral: Moist Mucosa, No Gingival or Mucosal Lesions/ Ulcerations, - - Cardiac posterior pharynx Neck: Supple, No Nodes, Trachea Midline, JVD, Right Lungs: No rhonchi, No wheeze, No rales, Diminished Cardiovascular: Normal S1, Normal S2, No murmurs, Irregular Rate, No rub noted, No Gallop Abdomen: Bowel Sounds Present, Soft, Non Tender, Non-Distended, Obese Extremities: No clubbing, No cyanosis, Edema Skin: - - No significant change from previous Musculoskeletal: No Tenderness to Palpation of Joints or Extremities, No Muscle Wasting Lymphatic: No Cervical, Supraclavicular, or Inguinal Adenopathy Neurological: Cranial nerves II-XII grossly intact, Neuro grossly intact, Motor Exam 5/5 strength throughout Psych/Mental Status: Alert and oriented to time, place, person, mood and affect Laboratory Results 10/31/19 08:20: POC Glucose 95 10/31/19 12:09: POC Glucose 177 H 10/31/19 16:16: POC Glucose 144 H 10/31/19 21:01: POC Glucose 158 H 11/01/19 05:40: PT 30.2 H, INR 2.9 11/01/19 05:40: Sodium 134 L, Potassium 3.0 L, Chloride 82 L, Carbon Dioxide > 45.0 H*, Anion Gap TNP, BUN 48 H, Creatinine 2.02 H, Estim Creat Clear Calc 37.15, Est GFR (MDRD) Af Amer 43 L, Est GFR (MDRD) Non-Af 36 L, BUN/Creatinine Ratio 23.8 H, Glucose 101, Calcium 8.5 11/01/19 08:18: POC Glucose 90 Current Medications Acetaminophen (Tylenol) 650 mg PO Q6H PRN PRN PRN Reason: Pain Score 1-10/Temp > 100.7 F Last Admin: 11/01/19 00:15 Dose: 650 mg Documented by: Al Hydroxide/Mg Hydroxide (Mylanta Ii) 30 ml PO Q6H PRN PRN PRN Reason: Gastric Burning Amiodarone HCl (Cordarone) 200 mg PO BID [facility] Last Admin: 11/01/19 09:13 Dose: 200 mg Documented by: Atorvastatin Calcium (Lipitor) 20 mg PO QHS [facility] Last Admin: 10/31/19 21:03 Dose: 20 mg Documented by: Dextrose (D50w Syringe) 0 gm IV X1 PRN; Protocol PRN Reason: Hypoglycemia Furosemide (Lasix) 40 mg IV BID@1000,1800 [facility] Last Admin: 11/01/19 09:14 Dose: 40 mg Documented by: Glucagon () 1 mg IM .X1 PRN PRN Reason: Hypoglycemia Guaifenesin (Robitussin) 20 ml PO Q4H PRN PRN PRN Reason: COUGH Hydralazine HCl (Apresoline Iv) 10 mg IV Q4H PRN PRN PRN Reason: SBP > 160 Sodium Chloride () 250 mls @ 15 mls/hr IV .[id number] PRN PRN Reason: Saline Flush Sodium Chloride () 250 mls @ 15 mls/hr IV .[id number] PRN PRN Reason: Additional IVPB Infusion Insulin Glargine (Lantus (Bkc)) 40 units SC BID [facility] Last Admin: 10/31/19 21:04 Dose: 40 u Documented by: Insulin Human Lispro (Humalog Kwikpen (Bk)) 7 unit SC BREAKFAST [facility] Last Admin: 11/01/19 08:19 Dose: 7 u Documented by: Insulin Human Lispro (Humalog Kwikpen (Bk)) 6 unit SC DINNER [facility] Last Admin: 10/31/19 16:17 Dose: 6 units Documented by: Insulin Human Lispro (Humalog Kwikpen (Bk)) 5 unit SC LUNCH [facility] Last Admin: 10/31/19 12:11 Dose: 5 u Documented by: Insulin Human Lispro (Humalog Kwikpen (Bk)) 0 unit SC ACHS [facility]; Protocol Last Admin: 11/01/19 08:19 Dose: Not Given Documented by: Magnesium Hydroxide (Milk Of Magnesia) 30 ml PO DAILY PRN PRN PRN Reason: Constipation Metoprolol Succinate (Toprol Xl (Beta Rakesh)) 50 mg PO DAILY [facility] Last Admin: 11/01/19 09:14 Dose: 50 mg Documented by: Nitroglycerin (Nitrostat) 0.4 mg SUBLINGUAL Q5M PRN PRN Reason: CARDIAC/CHEST PAIN Ondansetron HCl (Zofran) 4 mg IV Q8H PRN PRN PRN Reason: NAUSEA/VOMITING Pot[facility] Last Admin: 11/01/19 08:20 Dose: 40 meq Documented by: Prochlorperazine Edisylate (Compazine Iv) 5 mg IV Q4H PRN PRN PRN Reason: Breakthrough Nausea/Vomiting Psyllium Hydrophilic Mucilloid (Metamucil) 1 packet PO DAILY PRN PRN PRN Reason: Constipation Senna/Docusate Sodium (Senokot-S, Shey-Colace) 2 tablet PO BID PRN PRN PRN Reason: Constipation Sodium Chloride () 10 - 40 ml IV UD PRN PRN Reason: SALINE FLUSH Last Admin: 10/31/19 10:23 Dose: 10 ml Documented by: Throat Lozenges (Cepacol Sore Throat Lozenge) 1 lozenge MUCOUS MEM Q2H PRN PRN PRN Reason: SORE THROAT Torsemide (Demadex) 20 mg PO BIDLX [facility] Last Admin: 11/01/19 09:12 Dose: 20 mg Documented by: Medical Necessity - Tobacco Use Smoking Status: Former smoker Tobacco Use: Non-smoker Assessment/Plan All Active Problems (Last Updated 10/30/19 @ 07:[address] Ade Finn MD) CHF (congestive heart failure) (Acute) Supratherapeutic INR (Acute) Hyperkalemia (Acute) RECOMMENDATIONS: 1. Continue BiPAP 17/9 centimeters of water until formal PSG can be completed 2. Continue diuresis per hospitalist 3. Increase activity as tolerated 4. Continue current dose of basal insulin 5. Okay to transfer to [facility] from a pulmonary perspective on BiPAP therapy 6. Would attempt obtaining sleep study while at [facility] so that he can be discharged to home with appropriate BiPAP therapy. IMPRESSIONS: 1. Acute on chronic combined respiratory failure secondary to acute on chronic diastolic CHF Patient has responded well to diuretic therapy. However, patient is currently having hypokalemia and elevated bicarbonate. Long-term evaluation of bicarbonate is suggestive of CO2 retention, so transition to BiPAP therapy is appropriate. Patient will need a formal polysomnogram as an outpatient, but has been tolerating BiPAP 17/9 centimeters of water in the hospital. Patient is noting improvement after just 2 days of therapy. Do anticipate with body habitus that higher pressures will be required. Anticipate weeks before bicarbonate starts to respond to noninvasive therapy. If patient fails BiPAP titration, evaluation for AVAPS as an outpatient could also be considered. 2. Acute on chronic kidney disease stage III/hyperkalemia Baseline creatinine of 2 and appears to be responding well to diuretic therapy. However, patient did have a significant drop in potassium levels ove rnight. Patient was treated for hyperkalemia initially, but is likely hypokalemic secondary to diuretics. Supplementation per hospitalist. 3. Chronic A. fib/chronic diastolic congestive heart failure/history of VSD repair/pulmonary hypertension Patient anticoagulated and doing well. No signs or symptoms of bleeding at this time. Patient may have an element of pulmonary hypertension leading to current findings. Patient could have a right heart catheterization as an outpatient, but high clinical suspicion for type II pulmonary hypertension. 4. Hypertension/type 2 diabetes mellitus/hyperlipidemia/morbid obesity/noncompliant LASHAWN Complicates care, management, recovery and prognosis. Patient has pretty good hyperglycemia control at this time. Inpatient E&M: 75159 Subs Hosp L2
--- NOTE | 2019-11-01 10:33 | PHA.DC.MR ---
Pharmacy Service has performed discharge medication reconciliation for this patient. Another pharmacist spoke to Dr. Finn yesterday regarding furosemide and torsemide, he would like the patient to be on both. The patient's discharge medication list was reviewed for discrepancies and discrepancies were resolved. Home Medications Atorvastatin Calcium 20 mg PO QHS 04/16/19 Insulin Glargine [Lantus SoloStar Pen] 40 units SUBCUT BID pen 04/28/19 Insulin Lispro [Humalog KwikPen] 5 unit SUBCUT LUNCH insuln.pen 04/28/19 Insulin Lispro [Humalog KwikPen] 6 unit SUBCUT DINNER insuln.pen 04/28/19 Insulin Lispro [Humalog KwikPen] 7 unit SUBCUT BREAKFAST insuln.pen 04/28/19 Insulin Lispro [Humalog KwikPen] See Protocol SUBCUT ACHS insuln.pen 04/28/19 Metoprolol(XL)Succ [Toprol Xl (Beta Rakesh)] 50 mg PO DAILY tab 04/28/19 Amiodarone HCl 200 mg PO BID 08/08/19 Multivitamin [Daily Multiple Vitamin] 1 ea PO DAILY 10/28/19 Torsemide [Demadex] 20 mg PO BID 10/28/19 Warfarin Sodium [Coumadin] 2.5 mg PO .COMPLEX 10/28/19 Warfarin Sodium [Coumadin] 5 mg PO .COMPLEX 10/28/19 Furosemide [Lasix] 40 mg PO BIDLX #90 tab 11/01/19 Potassium Chloride [K-Dur] 40 meq PO BIDCM #90 tab 11/01/19 Tamsulosin HCl [Flomax] 0.4 mg PO DAILY #90 cap 11/01/19
--- NOTE | 2019-11-01 11:16 | DS.PCM_ITS ---
Discharge Date and Diagnosis Date of Admission: 10/28/19 Date of Discharge: 11/01/19 - Primary Discharge Diagnosis Acute Problems: Active Problems (Last Updated 10/30/19 @ 07:[address] Ade Finn MD) #1 acute on chronic diastolic CHF. #2 acute combined hypoxic and hypercapnic respiratory failure. #3 hyperkalemia. #4 Coumadin induced coagulopathy. #5 stage IV chronic kidney disease. - Secondary Discharge Diagnosis Chronic Problems: Chronic Problems (Last Updated 10/30/19 @ 07:[address] Ade Finn MD) Morbid obesity with BMI of 50.0-59.9, adult (Chronic) nursing home current use of anticoagulant (Chronic) History of right and left heart catheterization (Chronic 02/18/98) Done s/p VSD repair Per Dr. Sherif Espinoza @ [facility]: normal coronaries, mildly elevated PA pressures Paroxysmal SVT (supraventricular tachycardia) (Chronic) Atrial fibrillation (Chronic) History of atrial flutter (Chronic) Attempted atrial flutter ablation @ [facility] X 1 in 1997 (unsuccessful), followed by Atrial flutter ablations X [address] Paul at [facility] in Apr and October of 1998 Chronic diastolic congestive heart failure (Chronic) History of patent ductus arteriosus as a child (Chronic) Repaired at age 3 years, done @ [facility] Nonrheumatic tricuspid valve regurgitation (Chronic) Leaflet used for VSD repair in past History of ventricular septal defect repair (Chronic) 1977 (pt approx age 18) using Dacron patch, done at [facility] Hyperlipidemia (Chronic) Hypertension (Chronic) Diabetes mellitus, type II (Chronic) History of radiofrequency ablation procedure for cardiac arrhythmia (Chronic) Attempted atrial flutter ablation @ [facility] X 1 (unsuccessful), followed by Atrial flutter ablations X [address] Paul at [facility] in Apr and October of 1998 Pulmonary hypertension, moderate to severe (Chronic) PASP 69 mmHg in September 2013 LASHAWN (obstructive sleep apnea) (Chronic) Hospital Course and Treatment Imaging Results: Clinical Impression(s) from Imaging Studies Chest X-Ray 10/28/19 00:23 IMPRESSION: Cardiomegaly with mild CHF. Small right pleural effusion with overlying atelectasis or infiltration right lung base. Electronically Signed: Fer Dotson MD at 1:18 EDT , Service support , Chest X-Ray 10/29/19 08:53 IMPRESSION: Right basilar infiltrate with mild effusion increased since the previous study. Cardiomegaly. Electronically Signed: Nato Nilton, at 9:45 EDT Tel [phone], Service support , Dr. Soria, pulmonology. Operations: None Procedures: EKG Summary of Care Provided: Patient seen and examined on the day of discharge and appeared to be stable to be discharged to [facility] facility. Shortness of breath continued to improve slowly. He remained on oxygen at 2 L. He has been tolerating BiPAP overnight. Other vital signs are stable. This is a 59 years old male patient presented to the emergency room because of shortness of breath, found to have acute on chronic diastolic CHF complicated by acute combined hypoxic and hypercapnic respiratory failure and also found to have hyperkalemia and supratherapeutic INR. #1 acute on chronic diastolic CHF: Treated with IV Lasix, p.o. torsemide and metoprolol. He was not on ARUN inhibitor because of chronic kidney disease. He had 2D echocardiogram on April, that revealed ejection fraction of 60%. He does have a history of pulmonary hypertension. Patient discharged on Lasix 40 mg p.o. twice daily as well as torsemide 20 mg p.o. twice daily, discharged on fluid restriction to less than 1500 cc daily. #2 acute combined hypoxic and hypercapnic respiratory failure: Secondary to #1. Treated with IV diuresis as well as BiPAP and oxygen. Patient mentioned that he was on oxygen at 2 L around 2 years ago. Pulmonology consulted and recommended to keep patient on BiPAP upon discharge to [facility] facility. Patient discharged on oxygen at 2 L during daytime and BiPAP at night, pulmonology recommended sleep study as outpatient as patient will need adjustment of his CPA P settings upon discharge from the SNF to his home. Patient will follow-up with pulmonology as outpatient. #3 hyperkalemia: Potassium treated medically with Kayexalate. Initially, potassium was 6.5 and with Kayexalate and IV diuresis, it came down to 2.8. Patient has been on potassium supplement. Patient was discharged on K. Dur 40 mEq p.o. twice daily. #4 Coumadin induced coagulopathy: Patient has been on Coumadin for atrial flutter/A. fib. INR was high, maximum was 6.4, just monitored and it came down to 2.9 upon discharge. There was no active bleeding. #5 stage IV chronic kidney disease: Baseline creatinine has been around 2 to 2.7 mg/dL. Discharge creatinine is 2.02, improving since admission. #6 type 2 diabetes mellitus: Blood sugar stable, continued on Lantus twice daily and Humalog insulin 3 times daily as well as sliding scale. #7 atrial flutter/paroxysmal atrial fibrillation: Continued on amiodarone and metoprolol and on Coumadin for anticoagulation. Upon discharge, INR was 2.9. Patient discharged to longterm in stable medical condition, discharged on Lasix 40 mg p.o. twice daily, torsemide same dose as before, discharged on potassium supplement, discharged on oxygen at 2 L at daytime and on BiPAP at night according to pulmonary recommendations, patient will need sleep study as outpatient to adjust his CPAP settings, resumed back on Coumadin as his INR came down to 2.9 upon discharge, recommended follow-up with PCP in 1 week, follow-up with cardiology in 2 weeks and follow-up with pulmonology according to Dr. Soria. This note was generated with [employer] dictation software. It may contain incorrect words, spelling, and punctuation that were not noted in checking the note before signing. - Physical Exam Vitals/I&O's: Vital Signs Temp Pulse Resp BP Pulse Ox 96.9 F L 59 L 16 109/57 L 96 11/01/19 09:00 11/01/19 09:14 11/01/19 09:00 11/01/19 09:00 11/01/19 09:00 Oxygen Flow Rate (L/min) 2 Oxygen Delivery Method Nasal Cannula Weight: 337 lb 15.498 oz Body Mass Index (BMI) 54.0 Finger Stick Blood Glucose 479 Intake and Output for Last 24 Hours 10/30/19 10/31/19 11/01/19 23:59 23:59 23:59 Intake Total 1260 / 1260 1535 / 1535 600 / 600 Output Total 3400 / 3400 4250 / 4250 1200 / 1200 Balance -2140 / -2140 -2715 / -2715 -600 / -600 General: Alert, Oriented x3, Cooperative, No apparent distress HEENT: Atraumatic, PERRLA, EOMI, Normocephalic Oral: Moist Mucosa, No Gingival or Mucosal Lesions/ Ulcerations Neck: Supple, No JVD, Negative Carotid Bruits, Trachea Midline, Thyroid Normal Size and Texture Lungs: Clear to auscultation, No rhonchi, No wheeze, No rales, Diminished Cardiovascular: Regular rate, Regular Rhythm, Normal S1, Normal S2, PMI Normal Abdomen: Bowel Sounds Present, Soft, Non Tender, Non-Distended, No Hepato- splenomegaly, Obese Extremities: No clubbing, No cyanosis, Edema Skin: No rashes, No breakdown Lymphatic: No Cervical, Supraclavicular, or Inguinal Adenopathy Neurological: Cranial nerves II-XII grossly intact, Neuro grossly intact Psych/Mental Status: Normal Affect, Appropriate Laboratory Results 10/31/19 08:20: POC Glucose 95 10/31/19 12:09: POC Glucose 177 H 10/31/19 16:16: POC Glucose 144 H 10/31/19 21:01: POC Glucose 158 H 11/01/19 05:40: PT 30.2 H, INR 2.9 11/01/19 05:40: Sodium 134 L, Potassium 3.0 L, Chloride 82 L, Carbon Dioxide > 45.0 H*, Anion Gap TNP, BUN 48 H, Creatinine 2.02 H, Estim Creat Clear Calc 37.15, Est GFR (MDRD) Af Amer 43 L, Est GFR (MDRD) Non-Af 36 L, BUN/Creatinine Ratio 23.8 H, Glucose 101, Calcium 8.5 11/01/19 08:18: POC Glucose 90 Current Medications Acetaminophen (Tylenol) 650 mg PO Q6H PRN PRN PRN Reason: Pain Score 1-10/Temp > 100.7 F Last Admin: 11/01/19 00:15 Dose: 650 mg Documented by: Al Hydroxide/Mg Hydroxide (Mylanta Ii) 30 ml PO Q6H PRN PRN PRN Reason: Gastric Burning Amiodarone HCl (Cordarone) 200 mg PO BID [facility] Last Admin: 11/01/19 09:13 Dose: 200 mg Documented by: Atorvastatin Calcium (Lipitor) 20 mg PO QHS [facility] Last Admin: 10/31/19 21:03 Dose: 20 mg Documented by: Dextrose (D50w Syringe) 0 gm IV X1 PRN; Protocol PRN Reason: Hypoglycemia Furosemide (Lasix) 40 mg IV BID@1000,1800 [facility] Last Admin: 11/01/19 09:14 Dose: 40 mg Documented by: Glucagon () 1 mg IM .X1 PRN PRN Reason: Hypoglycemia Guaifenesin (Robitussin) 20 ml PO Q4H PRN PRN PRN Reason: COUGH Hydralazine HCl (Apresoline Iv) 10 mg IV Q4H PRN PRN PRN Reason: SBP > 160 Sodium Chloride () 250 mls @ 15 mls/hr IV .[id number] PRN PRN Reason: Saline Flush Sodium Chloride () 250 mls @ 15 mls/hr IV .[id number] PRN PRN Reason: Additional IVPB Infusion Insulin Glargine (Lantus (Bkc)) 40 units SC BID [facility] Last Admin: 11/01/19 10:12 Dose: 40 u Documented by: Insulin Human Lispro (Humalog Kwikpen (Bkc)) 7 unit SC BREAKFAST [facility] Last Admin: 11/01/19 08:19 Dose: 7 u Documented by: Insulin Human Lispro (Humalog Kwikpen (Bkc)) 6 unit SC DINNER [facility] Last Admin: 10/31/19 16:17 Dose: 6 units Documented by: Insulin Human Lispro (Humalog Kwikpen (Bkc)) 5 unit SC LUNCH [facility] Last Admin: 10/31/19 12:11 Dose: 5 u Documented by: Insulin Human Lispro (Humalog Kwikpen (Bkc)) 0 unit SC ACHS [facility]; Protocol Last Admin: 11/01/19 08:19 Dose: Not Given Documented by: Magnesium Hydroxide (Milk Of Magnesia) 30 ml PO DAILY PRN PRN PRN Reason: Constipation Metoprolol Succinate (Toprol Xl (Beta Rakesh)) 50 mg PO DAILY [facility] Last Admin: 11/01/19 09:14 Dose: 50 mg Documented by: Nitroglycerin (Nitrostat) 0.4 mg SUBLINGUAL Q5M PRN PRN Reason: CARDIAC/CHEST PAIN Ondansetron HCl (Zofran) 4 mg IV Q8H PRN PRN PRN Reason: NAUSEA/VOMITING Potassium Chloride (K-Dur) 40 meq PO BIDCM [facility] Last Admin: 11/01/19 08:20 Dose: 40 meq Documented by: Prochlorperazine Edisylate (Compazine Iv) 5 mg IV Q4H PRN PRN PRN Reason: Breakthrough Nausea/Vomiting Psyllium Hydrophilic Mucilloid (Metamucil) 1 packet PO DAILY PRN PRN PRN Reason: Constipation Senna/Docusate Sodium (Senokot-S, Shey-Colace) 2 tablet PO BID PRN PRN PRN Reason: Constipation Sodium Chloride () 10 - 40 ml IV UD PRN PRN Reason: SALINE FLUSH Last Admin: 10/31/19 10:23 Dose: 10 ml Documented by: Throat Lozenges (Cepacol Sore Throat Lozenge) 1 lozenge MUCOUS MEM Q2H PRN PRN PRN Reason: SORE THROAT Torsemide (Demadex) 20 mg PO BIDLX [facility] Last Admin: 11/01/19 09:12 Dose: 20 mg Documented by: Home Medications: Medications to take at Discharge Atorvastatin Calcium 20 mg PO QHS 04/16/19 Insulin Glargine [Lantus SoloStar Pen] 40 units SUBCUT BID pen 04/28/19 Insulin Lispro [Humalog KwikPen] 5 unit SUBCUT LUNCH insuln.pen 04/28/19 Insulin Lispro [Humalog KwikPen] 6 unit SUBCUT DINNER insuln.pen 04/28/19 Insulin Lispro [Humalog KwikPen] 7 unit SUBCUT BREAKFAST insuln.pen 04/28/19 Insulin Lispro [Humalog KwikPen] See Protocol SUBCUT ACHS insuln.pen 04/28/19 Metoprolol(XL)Succ [Toprol Xl (Beta Rakesh)] 50 mg PO DAILY tab 04/28/19 Amiodarone HCl 200 mg PO BID 08/08/19 Multivitamin [Daily Multiple Vitamin] 1 ea PO DAILY 10/28/19 Torsemide [Demadex] 20 mg PO BID 10/28/19 Warfarin Sodium [Coumadin] 2.5 mg PO .COMPLEX 10/28/19 Warfarin Sodium [Coumadin] 5 mg PO .COMPLEX 10/28/19 Furosemide [Lasix] 40 mg PO BIDLX #90 tab 11/01/19 Potassium Chloride [K-Dur] 40 meq PO BIDCM #90 tab 11/01/19 Tamsulosin HCl [Flomax] 0.4 mg PO DAILY #90 cap 11/01/19 Following Prescrptions Were Given to Patient: Tamsulosin HCl [Flomax] 0.4 mg PO DAILY #90 cap Prescription Printed Potassium Chloride [K-Dur] 40 meq PO BIDCM #90 tab Prescription Printed Furosemide [Lasix] 40 mg PO BIDLX #90 tab Prescription Printed Primary Care Physician: Francisco Alcazar MD [Primary Care Provider] - Please follow up with your Primary Care Physician in: 1 week. Please Follow Up With: Gladys Mari PA When: 2 weeks. Please Follow Up With: Eyad Soria MD When: please call his office. Disposition: Intermediate facility Minutes spent on discharge:: 34 Patient Condition:: Stable Medical Necessity - Tobacco Use Smoking Status: Former smoker Tobacco Use: Non-smoker Meaningful Use Info Meaningful Use Diagnoses (Choose all that apply): CHF - CHF ARUN/ARB ordered at discharge?: No Reason ARUN/ARB not ordered?: Worsening renal disease Documented LVEF (%): 60 Inpatient E&M: 49205 Disch Hosp
--- NOTE | 2019-11-01 11:28 | CASEMGMT ---
Patient is ready for discharge to [facility]. SHAWN spoke with patient and let him know he will be going by wheelchair and this is not covered by insurance. SW told him it is $60 base fee and then $6 per mile. [facility] is close to 3 miles away so it would be around $78. He said that was fine. SW called [facility] and arranged for patient to get picked up at 1p via wc van. SW faxed orders and completed convalescent on HENS. Patient then said he wants his to take him. SHAWN spoke with Ragini at [facility] and they are not allowing family to transport patients. SW let her know that patient will be picked up at 1p. SW let patient know this information and he was ok with wc van. Plan: [facility] under skilled level of care on a convalescent stay. [facility] to transport patient via wc van. Ellie CISNEROS WET ROOM SUPERVISOR
--- NOTE | 2019-11-01 11:32 | NURSING ---
pt with last BM 10/27, states he does not feel backed up and refuses any intervention at this time
[2019-11-01 11:36] LABS: Bedside Glucose 187 mg/dL (70-110)
[2019-11-01] MEDS: Insulin Lispro 100 UNIT/ML INSULN.PEN SC ×2 (12:19→12:20)
== END 2019-11-01 13:10 | DRG 291 ==
LOC: ED 01:08 → PCU 02:55
PROVIDERS: Internal Medicine; Admitting Provider Family Medicine; Emergency Provider Student in an Organized Health Care Education/Training Program; PCP Family Medicine; Visit Provider Hospitalist
DX: I13.0 Hypertensive heart and chronic kidney disease with heart failure and stage 1 through stage 4 chronic kidney disease, or unspecified chronic kidney disease (principal); I50.33 Acute on chronic diastolic (congestive) heart failure; J96.02 Acute respiratory failure with hypercapnia; J96.01 Acute respiratory failure with hypoxia; N18.4 Chronic kidney disease, stage 4 (severe); Z68.43 Body mass index [BMI] 50.0-59.9, adult; E11.22 Type 2 diabetes mellitus with diabetic chronic kidney disease; Z79.4 Long term (current) use of insulin; E87.5 Hyperkalemia; E87.6 Hypokalemia; T50.2X5A Adverse effect of carbonic-anhydrase inhibitors, benzothiadiazides and other diuretics, initial encounter; I44.0 Atrioventricular block, first degree; R79.1 Abnormal coagulation profile; I48.0 Paroxysmal atrial fibrillation; I45.10 Unspecified right bundle-branch block; I27.20 Pulmonary hypertension, unspecified; G47.33 Obstructive sleep apnea (adult) (pediatric); E78.5 Hyperlipidemia, unspecified; E66.01 Morbid (severe) obesity due to excess calories; R31.9 Hematuria, unspecified; Z87.891 Personal history of nicotine dependence; Z87.74 Personal history of (corrected) congenital malformations of heart and circulatory system; Z91.19 Patient's noncompliance with other medical treatment and regimen; Z79.01 Long term (current) use of anticoagulants; Z79.899 Other long term (current) drug therapy
CPT/HCPCS: 36415; 36600; 71045; 80048; 80053; 80076; 82803; 82962; 83735; 83880; 84439; 84443; 84484; 85025; 85610; 87635; 93005; 94002; 94003; 97110; 97116; 97162; 97165; 97530; 97802; 99251; 99285; G2023; A4216; G0463; J0610; J1940; J2310; U0003

== ENCOUNTER 2019-11-20 19:49 | Inpatient (IN) | payer MEDICARE, SELFPAY ==
[2019-10-28 03:48] VITALS: BMI 54.0
[2019-11-20 19:49] VITALS: BP 136/79; PULSE 60; RESP 18; TEMP 36.2; O2SAT 100; BMI 58.1
--- NOTE | 2019-11-20 22:44 | EKG12_ITS ---
Test Reason : DYSRHYTHMIA Blood Pressure : / mmHG Vent. Rate : 055 BPM Atrial Rate : 055 BPM P-R Int : 232 ms QRS Dur : 136 ms QT Int : 456 ms P-R-T Axes : 038 143 087 degrees QTc Int : 436 ms Sinus bradycardia with 1st degree A-V block with Premature supraventricular complexes Low voltage QRS (Limb Leads) Right bundle branch block Abnormal ECG Confirmed by IDRIS HAMLIN, ADAL ([id number]), editor trade journal JAVIER GREEN ([id number]) on 11/22/2019 1:31:39 PM Referred By: VANESSA Confirmed By:ADAL STEINBERG MD
--- NOTE | 2019-11-20 22:44 | RAD_ITS ---
HISTORY: SENT BY PCP FOR FLUID OVERLOAD, GAINED 30 LBS IN PAST 2 WEEKS. EXAM: XR Chest 1 View: COMPARISON: October 29, 2019 FINDINGS: # of images incl. paperwork: 1 Sternal wires and mediastinal clips persist Pulmonary venous congestion pulmonary edema and basilar atelectasis Heart is enlarged. No acute osseous pathology perceived. Pulmonary vascularity is indistinct. Right pleural effusion was present previously but is greater on today's study. RAD/Chest 1 View (Portable) IMPRESSION: Worsening CHF. at 0030 Reported and signed by: Robbie Desouza MD Electronically Signed: Robbie Desouza MD at 0:28 EDT Tel , Service support ,
--- NOTE | 2019-11-20 22:45 | ED.VIS.GEN ---
History of Present Illness Chief Complaint: Edema Informant: Patient, Significant Other Onset: Weeks - 1 Context: Gradual Onset Timing: Continuous Quality: swelling Location: legs, abd Current Severity: Severe Maximum Severity: Severe Worsened by: nothing in particular Relieved by: nothing Associated Symptoms: WINTERS, malaise, TIE TAMPER cough. no fevers/chills. Narrative: Patient was admitted here for similar issues 3 or 4 weeks ago, he was discharged to a assisted, he was discharged from there to home about 1 week ago but as he and significant other put it, was not doing well at that time. Since then he has gained significant amount of weight and edema although he is still urinating with a history of renal failure, and is not drinking too much fluid in his opinion. He is on diuretics. He has history of significant congestive heart failure. Denies any chest discomfort but is having significant dyspnea with exertion, he cannot climb stairs, has a significant difficult time getting up and walking at all. He denies pain. He did accidentally scraped his leg and get a wound on his right lower extremity that is being treated. He is on Coumadin. He has not been bleeding from anywhere. He has been compliant with his medications. He is on 3 L of home oxygen. - Past Medical History (1) Chronic kidney disease (CKD) Status: Chronic (2) CHF (congestive heart failure) Status: Chronic (3) Atrial fibrillation Status: Chronic (4) Chronic diastolic congestive heart failure Status: Chronic (5) Diabetes mellitus, type II Status: Chronic (6) History of atrial flutter Status: Chronic Comment: Attempted atrial flutter ablation @ [facility] X 1 in 1997 (unsuccessful), followed by Atrial flutter ablations X [address] Paul at [facility] in Apr and October of 1998 (7) Hyperlipidemia Status: Chronic (8) Hypertension Status: Chronic (9) Nonrheumatic tricuspid valve regurgitation Status: Chronic Comment: Leaflet used for VSD repair in past (10) LASHAWN (obstructive sleep apnea) Status: Chronic (11) Paroxysmal SVT (supraventricular tachycardia) Status: Chronic (12) Pulmonary hypertension, moderate to severe Status: Chronic Comment: PASP 69 mmHg in September 2013 Past Medical History - Allergies and Home Meds Allergies/Adverse Reactions: Allergies albuterol Adverse Reaction (Verified 11/20/19 19:52) NEEDS FOLLOW-UP increased heart rate. amoxicillin trihydrate [From Augmentin] Adverse Reaction (Verified 11/20/19 19:52) Diarrhea indomethacin [From Indocin] Adverse Reaction (Verified 11/20/19 19:52) Nausea potassium clavulanate [From Augmentin] Adverse Reaction (Verified 11/20/19 19:52) Diarrhea Primary Care Physician: Francisco Alcazar MD [Primary Care Provider] - Surgical History: - - VSD repair using tricuspid valve leaflet, PDA repair, HD access, RFA x 3. Lives: Spouse/ Significant Other Smoking Status: Former smoker - Family History Maternal Family History: Family History (Last Reviewed 10/28/19 @ 03:[address] Fredi Cobb DO) Mother Hypertension Diabetes CVA (cerebral vascular accident) Valvular heart disease Father CVA (cerebral vascular accident) Hypertension Hyperlipidemia Family History: Reports: Diabetes, High Cholesterol, Heart Disease, Hypertension, Stroke, - - Mother with history of concurrent valvular heart disease. Paternal Family History: Family History (Last Reviewed 10/28/19 @ 03:[address] Fredi Cobb DO) Mother Hypertension Diabetes CVA (cerebral vascular accident) Valvular heart disease Father CVA (cerebral vascular accident) Hypertension Hyperlipidemia Family History: Reports: High Cholesterol, Heart Disease, Hypertension, Stroke Review of Systems General: Reports: Malaise. Denies: Chills, Fever, Sweats Eyes: Denies: Visual changes - bilaterally, Diplopia ENT: Denies: Bilateral ear pain, Rhinorrhea, Sore throat Cardiovascular: Denies: Chest pain, Palpitations Respiratory: Reports: Dyspnea, Cough, Dyspnea on exertion, Orthopnea Gastrointestinal: Reports: - - Abdominal distention and tightness due to swelling. Denies: Abdominal pain, Nausea, Vomiting, Diarrhea, Melena, Hematochezia Genitourinary: Denies: Dysuria, Hematuria, Frequency Musculoskeletal: Reports: Swelling. Denies: Back pain, Extremity Pain Skin: Reports: Wounds. Denies: Rash Neurological: Denies: Headache, Weakness, Numbness Physical Exam Vital Signs/Narrative: Vital Signs Temp Pulse Resp BP Pulse Ox 11/20/19 19:49 97.2 F L 60 18 136/79 H 100 Inital Vital Signs reviewed: Yes General: Well nourished, Well developed, Obese, No Acute Distress Head: Normocephalic, Atraumatic Eyes: Perrl, EOMI ENT: Moist mucous membranes, No rhinorrhea Neck: Supple, Nontender Cardiovascular: Regular rate, Regular rhythm, No murmurs Respiratory: No distress, Chest nontender, Wheezing - Worse at bases. Symmetric. Abdomen: Soft, Nontender, Nondistended - But abdominal wall very taut and edematous, Normal bowel sounds Back: Nontender, Normal Inspection Extremities: Nontender, Edema - Symmetric anasarca both lower extremities to the groin Skin: Normal color, No rash, Trauma - Superficial wound right vasquez, dressed with nonstick pad, no sign of infection / cellulitis or lymphangitis Neurological: Alert, Oriented x3, Cranial nerves II-XII grossly intact, Normal Strength, Normal Sensation Psychological: Normal affect, Normal Mood Diagnostic/Tx/Re-eval Impressions Chest X-Ray 11/20/19 22:44 IMPRESSION: Worsening CHF. at 0030 Reported and signed by: Robbie Desouza MD Electronically Signed: Robbie Desouza MD at 0:28 EDT Tel , Service support , 11/20/19 22:44 Chest 1 View (Portable) [RAD] Stat Laboratory Tests 11/20/19 11/20/19 11/20/19 Range/Units 23:30 22:52 22:30 WBC (4.4-11.0) K/mm3 RBC (4.6-6.2) M/mm3 Hgb (13.0-16.5) g/dL Hct (40-54) % MCV (80-94) fL MCH (27.0-32.0) pg MCHC (32-36) g/dL RDW Std Deviation (35.1-43.9) fl RDW Coeff of Janiya (11.6-14.6) % Plt Count (150-450) K/mm3 MPV (6.2-12.0) fl Neut % (Auto) Absolute Neuts (auto) (2.0-7.7) X10^3/uL Absolute Lymphs (auto) (0.83-4.51) X10^3/uL Total Counted (MANUAL DIFF) Neutrophils % (Manual) (47-70) % Band Neutrophils % (0-5) % Lymphocytes % (Manual) (19-41) % Monocytes % (Manual) (0-10) % Metamyelocytes % (0-1) % Diff Path Review Platelet Estimate (ADEQ) RBC Morphology (NORM C&C) NORMAL PT 34.0 H (11.7-14.9) SECONDS INR 3.4 Sodium (136-145) mmol/L Potassium (3.5-5.1) mmol/L Chloride (98-107) mmol/L Carbon Dioxide (21.0-32.0) mmol/L Anion Gap (5-15) BUN (7-18) mg/dL Creatinine (0.70-1.30) mg/dL Estim Creat Clear Calc ml/min Est GFR (MDRD) Af Amer (>60) mL/min Est GFR (MDRD) Non-Af (>60) mL/min BUN/Creatinine Ratio (10-20) RATIO Glucose (74-106) mg/dL Calcium (8.5-10.1) mg/dL Troponin I (<0.045) ng/mL Urine Color Yellow (Yellow) Urine Clarity Clear (Clear) Urine pH 5.0 (5.0 - 8.0) Ur Specific [place] 1.015 (1.002-1.030) Urine Protein Negative (Negative) mg/dl Urine Glucose (UA) Normal (Normal) mg/dl Urine Ketones Negative (Negative) mg/dl Urine Occult Blood Negative (Negative) /ul Urine Nitrite Negative (Negative) Urine Bilirubin Negative (Negative) mg/dL Urine Urobilinogen Normal (Normal) mg/dl Ur Leukocyte Esterase 25 H (Negative) /ul Urine RBC 0 SEEN (0-5) /hpf Urine WBC 0 SEEN (0-5) /hpf Ur Squamous Epith Cells 0 SEEN (0-5) /hpf Urine Bacteria 0 SEEN (None Seen) /hpf Urine Mucus 0 SEEN (<or=2+) /hpf COVID-19 (BROWN) Negative (Not Detect) 11/20/19 11/20/19 Range/Units 22:30 22:30 WBC 7.5 (4.4-11.0) K/mm3 RBC 4.63 (4.6-6.2) M/mm3 Hgb 12.0 L (13.0-16.5) g/dL Hct 40.7 (40-54) % MCV 87.9 (80-94) fL MCH 25.9 L (27.0-32.0) pg MCHC 29.5 L (32-36) g/dL RDW Std Deviation 56.3 H (35.1-43.9) fl RDW Coeff of Janiya 17.6 H (11.6-14.6) % Plt Count 327 (150-450) K/mm3 MPV 10.4 (6.2-12.0) fl Neut % (Auto) Not Reportable Absolute Neuts (auto) 5.7 (2.0-7.7) X10^3/uL Absolute Lymphs (auto) 1.35 (0.83-4.51) X10^3/uL Total Counted 100 (MANUAL DIFF) Neutrophils % (Manual) 73 H (47-70) % Band Neutrophils % 3 (0-5) % Lymphocytes % (Manual) 18 L (19-41) % Monocytes % (Manual) 5 (0-10) % Metamyelocytes % 3 H (0-1) % Diff Path Review May foll Platelet Estimate ADEQUATE (ADEQ) RBC Morphology NORM C+C (NORM C&C) NORMAL PT (11.7-14.9) SECONDS INR Sodium 138 (136-145) mmol/L Potassium 4.9 (3.5-5.1) mmol/L Chloride 101 (98-107) mmol/L Carbon Dioxide 34.0 H (21.0-32.0) mmol/L Anion Gap 3 L (5-15) BUN 41 H (7-18) mg/dL Creatinine 2.11 H (0.70-1.30) mg/dL Estim Creat Clear Calc 35.57 ml/min Est GFR (MDRD) Af Amer 41 L (>60) mL/min Est GFR (MDRD) Non-Af 34 L (>60) mL/min BUN/Creatinine Ratio 19.4 (10-20) RATIO Glucose 116 H (74-106) mg/dL Calcium 8.5 (8.5-10.1) mg/dL Troponin I < 0.015 (<0.045) ng/mL Urine Color (Yellow) Urine Clarity (Clear) Urine pH (5.0 - 8.0) Ur Specific [place] (1.002-1.030) Urine Protein (Negative) mg/dl Urine Glucose (UA) (Normal) mg/dl Urine Ketones (Negative) mg/dl Urine Occult Blood (Negative) /ul Urine Nitrite (Negative) Urine Bilirubin (Negative) mg/dL Urine Urobilinogen (Normal) mg/dl Ur Leukocyte Esterase (Negative) /ul Urine RBC (0-5) /hpf Urine WBC (0-5) /hpf Ur Squamous Epith Cells (0-5) /hpf Urine Bacteria (None Seen) /hpf Urine Mucus (<or=2+) /hpf COVID-19 (BROWN) (Not Detect) - Rhythm Strip Rhythm Strip: Sinus Rhythm Rate: 60 Ectopy: PAC(s) - EKG Initial EKG Interpretation: No Acute Injury Pattern, Sinus Bradycardia, RBBB, AV Block - 1st deg, - - freq PACs Prior: Unchanged - Medical Decision Making Studies show relatively stable renal function but he obviously has significant third spacing of fluid and associated pulmonary edema/worsening congestive heart failure as the x-ray suggests. Plan is admission to the hospital given his clinical condition as well. He was given Lasix here and remained clinically and hemodynamically stable on oxygen nasal cannula. I did rerun a COVID test since he developed a cough while at assisted recently, that he still has. Return negative. ED Disposition - Plan for ED Patient: Disposition: Acute Care Hospital [facility] Diagnosis: Chronic kidney disease (CKD), Acute on chronic congestive heart failure, Anasarca Referrals: Francisco Aclazar MD [Primary Care Provider] -
[2019-11-20 23:19] LABS: Hematocrit 40.7 % (40-54); Mean Corp Hgb Conc 29.5 g/dL (32-36); Mean Corpuscular Hgb 25.9 pg (27.0-32.0); Mean Corpuscular Volume 87.9 fL (80-94); Mean Platelet Vol. 10.4 fl (6.2-12.0); POSITIVE COUNT YES; POSITIVE MORPHOLOGY YES; Platelet Count 327 K/mm3 (150-450); RBC Distribution Width CV 17.6 % (11.6-14.6); RBC Distribution Width SD 56.3 fl (35.1-43.9); Red Blood Count 4.63 M/mm3 (4.6-6.2); White Blood Count 7.5 K/mm3 (4.4-11.0)
[2019-11-20 23:24] LABS: Differential Indicated MANUAL DIFF
[2019-11-20 23:25] LABS: International Normalized Ratio 3.4
[2019-11-20 23:33] LABS: Anion Gap 3 (5-15); BUN 41 mg/dL (7-18); BUN/Creat Ratio 19.4 RATIO (10-20); Calcium,Total 8.5 mg/dL (8.5-10.1); Chloride 101 mmol/L (98-107); Creatinine, Serum 2.11 mg/dL (0.70-1.30); EST Glomerular Filtration Rate 34 mL/min (>60); Est Glom Filt Rate - Afr Amer 41 mL/min (>60); Estimated Creatinine Clearance 35.57 ml/min; Glucose 116 mg/dL (74-106); Potassium 4.9 mmol/L (3.5-5.1); Sodium Level 138 mmol/L (136-145)
[2019-11-20 23:37] VITALS: O2SAT 95
[2019-11-20 23:38] LABS: Bacteria 0 SEEN /hpf (None Seen); Color, Urine Yellow (Yellow); Glucose, Dipstick Normal (Normal); Ketone-Dipstick Negative (Negative); Leukocyte Esterase-Dipstick 25 /ul (Negative); Mucous, Urine 0 SEEN /hpf (<or=2+); Nitrite-Dipstick Negative (Negative); Occult Blood-Urine Negative /ul (Negative); Protein-Dipstick Negative (Negative); Red Blood Cells-Urine 0 SEEN /hpf (0-5); Specific Gravity, Urine 1.015 (1.002-1.030); Squamous Epithelial Cells - UA 0 SEEN /hpf (0-5); Urine Bilirubin Dipstick Negative (Negative); Urine Clarity Clear (Clear); Urine Urobilinogen Normal (Normal); White Blood Cells 0 SEEN /hpf (0-5)
[2019-11-20 23:41] VITALS: BP 123/70; PULSE 58; RESP 19; O2SAT 97
[2019-11-21] VITALS (11 sets, daily range): BP systolic 123–143; BP diastolic 52–89; PULSE 55–63; RESP 16–24; TEMP 36.2–37.2; O2SAT 94–99; BMI 57.9; BMI 58.0
[2019-11-21 00:02] LABS: Metamyelocyte 3 % (0-1); Neutrophil-Band 3 % (0-5); Neutrophil-Segmented 73 % (47-70); Total Cells Counted 100 (MANUAL DIFF)
[2019-11-21 00:03] LABS: Lymphocyte 18 % (19-41); Monocyte 5 % (0-10); Platelet Estimate ADEQUATE (ADEQ); Red Cell Morphology NORM C+C NORMAL (NORM C&C)
[2019-11-21 00:04] LABS: Absolute Lymphocyte Count 1.35 X10^3/uL (0.83-4.51); Absolute Neutrophil Count 5.7 X10^3/uL (2.0-7.7); Lymphocyte # 1.35 X10^3/ul (4.0)
--- NOTE | 2019-11-21 01:27 | HP.PCM_ITS ---
Problem List (1) Chronic kidney disease (CKD) Status: Chronic (2) Acute on chronic congestive heart failure Status: Acute (3) Anasarca Status: Acute (4) Morbid obesity with BMI of 50.0-59.9, adult Status: Chronic (5) History of right and left heart catheterization Status: Chronic Comment: Done s/p VSD repair Per Dr. Sherif Espinoza @ [facility]: normal coronaries, mildly elevated PA pressures (6) Paroxysmal SVT (supraventricular tachycardia) Status: Chronic (7) Atrial fibrillation Status: Chronic Qualifiers: Atrial fibrillation type: unspecified Qualified Code(s): I48.91 - Unspecified atrial fibrillation (8) History of ventricular septal defect repair Status: Chronic Comment: 1977 (pt approx age 18) using Dacron patch, done at [facility] (9) Hyperlipidemia Status: Chronic Qualifiers: Hyperlipidemia type: unspecified Qualified Code(s): E78.5 - Hyperlipidemia, unspecified (10) Hypertension Status: Chronic Qualifiers: Hypertension type: essential hypertension Qualified Code(s): I10 - Essential (primary) hypertension (11) Diabetes mellitus, type II Status: Chronic Qualifiers: Diabetes mellitus oil heaterman insulin use: with oil heaterman use Diabetes mellitus complication status: with other specified complication Qualified Code(s): E11.69 - Type 2 diabetes mellitus with other specified complication; Z79.4 - assisted (current) use of insulin (12) History of radiofrequency ablation procedure for cardiac arrhythmia Status: Chronic Comment: Attempted atrial flutter ablation @ [facility] X 1 (unsuccessful), followed by Atrial flutter ablations X [address] Paul at [facility] in Apr and October of 1998 (13) Pulmonary hypertension, moderate to severe Status: Chronic Comment: PASP 69 mmHg in September 2013 (14) LASHAWN (obstructive sleep apnea) Status: Chronic History of Present Illness Date of Admission: 11/21/19 Chief Complaint: shortness of breath with exertion, edema The patient is a 59 year old male patient with a past medical history of congestive heart failure, chronic kidney disease, diabetes, hypertension, hyperlipidemia, obesity who presents the emergency room with shortness of breath with exertion. Patient has been admitted within the last month for congestive heart failure and was also sent to intermediate facility for extra care and was discharged about a week ago. Since that time he has progressively gained more weight and become more short of breath with exertion. He denies chest pain and/or nausea or vomiting. He does have a cough but no fever and COVID test is pending at the time of my evaluation. Chest x-ray is consistent with worsening congestive heart failure. Last EF was in May 2019 and was 60%. He will be admitted to the progressive care unit for further management of his congestive heart failure Past Medical History Past Medical History (Chronic Problems): Chronic Problems (Last Updated 10/30/19 @ 07:[address] Ade Finn MD) Chronic kidney disease (CKD) (Chronic) CHF (congestive heart failure) (Chronic) Morbid obesity with BMI of 50.0-59.9, adult (Chronic) assisted current use of anticoagulant (Chronic) History of right and left heart catheterization (Chronic 02/18/98) Done s/p VSD repair Per Dr. Sherif Espinoza @ [facility]: normal coronaries, mildly elevated PA pressures Paroxysmal SVT (supraventricular tachycardia) (Chronic) Atrial fibrillation (Chronic) History of atrial flutter (Chronic) Attempted atrial flutter ablation @ [facility] X 1 in 1997 (unsuccessful), followed by Atrial flutter ablations X [address] Paul at [facility] in Apr and October of 1998 Chronic diastolic congestive heart failure (Chronic) History of patent ductus arteriosus as a child (Chronic) Repaired at age 3 years, done @ [facility] Nonrheumatic tricuspid valve regurgitation (Chronic) Leaflet used for VSD repair in past History of ventricular septal defect repair (Chronic) 1977 (pt approx age 18) using Dacron patch, done at [facility] Hyperlipidemia (Chronic) Hypertension (Chronic) Diabetes mellitus, type II (Chronic) History of radiofrequency ablation procedure for cardiac arrhythmia (Chronic) Attempted atrial flutter ablation @ [facility] X 1 (unsuccessful), followed by A trial flutter ablations X [address] Paul at [facility] in Apr and October of 1998 Pulmonary hypertension, moderate to severe (Chronic) PASP 69 mmHg in September 2013 LASHAWN (obstructive sleep apnea) (Chronic) Medical History: Medical History (Last Updated 10/30/19 @ 07:[address] Ade Finn MD) assisted current use of anticoagulant (Chronic) Z79.01 Paroxysmal SVT (supraventricular tachycardia) (Chronic) I47.1 Atrial fibrillation (Chronic) I48.91 History of atrial flutter (Chronic) Z86.79 Attempted atrial flutter ablation @ [facility] X 1 in 1997 (unsuccessful), followed by Atrial flutter ablations X [address] Paul at [facility] in Apr and October of 1998 Chronic diastolic congestive heart failure (Chronic) I50.32 History of patent ductus arteriosus as a child (Chronic) Z87.74 Repaired at age 3 years, done @ [facility] Nonrheumatic tricuspid valve regurgitation (Chronic) I36.1 Leaflet used for VSD repair in past Hyperlipidemia (Chronic) E78.5 Hypertension (Chronic) I10 Diabetes mellitus, type II (Chronic) E11.9 Pulmonary hypertension, moderate to severe (Chronic) I27.2 PASP 69 mmHg in September 2013 LASHAWN (obstructive sleep apnea) (Chronic) G47.33 History of arm fracture Z87.81 X2 History of paroxysmal supraventricular tachycardia (Inactive) Z86.79 Allergies albuterol Adverse Reaction (Verified 11/20/19 19:52) NEEDS FOLLOW-UP increased heart rate. amoxicillin trihydrate [From Augmentin] Adverse Reaction (Verified 11/20/19 19:52) Diarrhea indomethacin [From Indocin] Adverse Reaction (Verified 11/20/19 19:52) Nausea potassium clavulanate [From Augmentin] Adverse Reaction (Verified 11/20/19 19:52) Diarrhea Home Medications: Ambulatory Orders Medication Instructions Recorded Atorvastatin Calcium 20 mg PO QHS 04/16/19 Insulin Glargine [Lantus SoloStar 40 units SUBCUT BID pen 04/28/19 Pen] Insulin Lispro [Humalog KwikPen] 5 unit SUBCUT LUNCH insuln.pen 04/28/19 Insulin Lispro [Humalog KwikPen] 6 unit SUBCUT DINNER insuln.pen 04/28/19 Insulin Lispro [Humalog KwikPen] 7 unit SUBCUT BREAKFAST insuln.pen 04/28/19 Insulin Lispro [Humalog KwikPen] See Protocol SUBCUT ACHS 04/28/19 insuln.pen Metoprolol(XL)Succ [Toprol Xl 50 mg PO DAILY tab 04/28/19 (Beta Rakesh)] Amiodarone HCl 200 mg PO BID 08/08/19 Multivitamin [Daily Multiple 1 ea PO DAILY 10/28/19 Vitamin] Torsemide [Demadex] 20 mg PO BID 10/28/19 Warfarin Sodium [Coumadin] 2.5 mg PO .COMPLEX 10/28/19 Warfarin Sodium [Coumadin] 5 mg PO .COMPLEX 10/28/19 Furosemide [Lasix] 40 mg PO BIDLX #90 tab 11/01/19 Potassium Chloride [K-Dur] 40 meq PO BIDCM #90 tab 11/01/19 Tamsulosin HCl [Flomax] 0.4 mg PO DAILY #90 cap 11/01/19 Surgical History: Surgical History (Last Reviewed 10/28/19 @ 03:[address] Fredi Cobb DO) History of right and left heart catheterization (Chronic) Onset Date: 02/18/98 Z98.890 Done s/p VSD repair Per Dr. Sherif Espinoza @ [facility]: normal coronaries, mildly elevated PA pressures History of ventricular septal defect repair (Chronic) Z87.74 1977 (pt approx age 18) using Dacron patch, done at [facility] History of radiofrequency ablation procedure for cardiac arrhythmia (Chronic) Z98.890 Attempted atrial flutter ablation @ [facility] X 1 (unsuccessful), followed by Atrial flutter ablations X [address] Paul at [facility] in Apr and October of 1998 Surgical History: - - VSD repair using tricuspid valve leaflet, PDA repair, HD access, RFA x 3. Psychiatric History: No pertinent psych hx Lives: Spouse/ Significant Other Smoking Status: Never smoker - *Family History Maternal Family History: Family History (Last Reviewed 10/28/19 @ 03:[address] Fredi Cobb DO) Mother Hypertension Diabetes CVA (cerebral vascular accident) Valvular heart disease Father CVA (cerebral vascular accident) Hypertension Hyperlipidemia History Items: Diabetes, High Cholesterol, Heart Disease, Hypertension, Stroke, - - Mother with history of concurrent valvular heart disease. Paternal Family History: Family History (Last Reviewed 10/28/19 @ 03:[address] Fredi Cobb DO) Mother Hypertension Diabetes CVA (cerebral vascular accident) Valvular heart disease Father CVA (cerebral vascular accident) Hypertension Hyperlipidemia History Items: High Cholesterol, Heart Disease, Hypertension, Stroke Review of Systems Constitutional: Denies: Chills, Fever, Weight Change HEENT: Denies: Head Aches, Sinus Congestion, Sinus Drainage Cardiovascular: Denies: Chest Pain, Palpitations Respiratory: Reports: Cough, Shortness of breath upon exertion. Denies: Shortness of breath at rest, Sputum production Gastrointestinal: Denies: Abdominal Pain, Nausea, Vomiting Genitourinary: Denies: Dysuria Musculoskeletal: Denies: Joint Pain, Joint Tenderness Skin: Denies: Rash, Wounds Neurological: Denies: Numbness, Tingling, Focal weakness Psychiatric: Denies: Anxiety, Depression, Homicidal Ideations, Suicidal Ideations Hematologic/ Lymphatic: Denies: Easy Bruising, Easy Bleeding VTE Information - Inpt Only VTE Present on Admission: No VTE Mechan Device Prophylaxis: SCD's VTE Pharm Prophylaxis ordered?: No Reason prophylaxis not ordered:: Medical Contraindication Patient Problems: Active and Suspected Problems (Last Updated 10/30/19 @ 07:[address] Ade Finn MD) Acute on chronic congestive heart failure (Acute) Anasarca (Acute) - Physical Exam Vitals/I&O's: Vital Signs Temp Pulse Resp BP Pulse Ox 97.2 F L 57 L 16 123/70 H 95 11/21/19 01:23 11/21/19 01:23 11/21/19 01:23 11/21/19 01:23 11/21/19 01:23 Oxygen Flow Rate (L/min) 3 Oxygen Delivery Method Nasal Cannula Weight: 382 lb Body Mass Index (BMI) 58.1 Finger Stick Blood Glucose 479 General: Alert, Oriented x3, Cooperative HEENT: Atraumatic, Normocephalic Neck: Supple, No JVD, Negative Carotid Bruits Lungs: Clear to auscultation, Diminished Cardiovascular: Regular rate, Normal S1, Normal S2, No murmurs Abdomen: Bowel Sounds Present, Soft, Non Tender, Obese Extremities: Capillary Refill Less than 3 Seconds, Edema - 3+ Skin: No rashes Musculoskeletal: No Tenderness to Palpation of Joints or Extremities Neurological: Neuro grossly intact Psych/Mental Status: Normal Affect, Appropriate Laboratory Results 11/20/19 22:30: WBC 7.5, RBC 4.63, Hgb 12.0 L, Hct 40.7, MCV 87.9, MCH 25.9 L, MCHC 29.5 L, RDW Std Deviation 56.3 H, RDW Coeff of Janiya 17.6 H, Plt Count 327, MPV 10.4, Neut % (Auto) Not Reportable, Absolute Neuts (auto) 5.7, Absolute Lymphs (auto) 1.35, Total Counted 100, Neutrophils % (Manual) 73 H, Band Neutrophils % 3, Lymphocytes % (Manual) 18 L, Monocytes % (Manual) 5, Metamyelocytes % 3 H, Diff Path Review August foll, Platelet Estimate ADEQUATE, RBC Morphology NORM C+C 11/20/19 22:30: Sodium 138, Potassium 4.9, Chloride 101, Carbon Dioxide 34.0 H, Anion Gap 3 L, BUN 41 H, Creatinine 2.11 H, Estim Creat Clear Calc 35.57, Est GFR (MDRD) Af Amer 41 L, Est GFR (MDRD) Non-Af 34 L, BUN/Creatinine Ratio 19.4, Glucose 116 H, Calcium 8.5, Troponin I < 0.015 11/20/19 22:30: PT 34.0 H, INR 3.4 11/20/19 22:52: COVID-19 (BROWN) Negative 11/20/19 23:30: Urine Color Yellow, Urine Clarity Clear, Urine pH 5.0, Ur Specific Hernando 1.015, Urine Protein Negative, Urine Glucose (UA) Normal, Urine Ketones Negative, Urine Occult Blood Negative, Urine Nitrite Negative, Urine Bilirubin Negative, Urine Urobilinogen Normal, Ur Leukocyte Esterase 25 H, Urine RBC 0 SEEN, Urine WBC 0 SEEN, Ur Squamous Epith Cells 0 SEEN, Urine Bacteria 0 SEEN, Urine Mucus 0 SEEN Assessment/Plan All Active Problems (Last Updated 10/30/19 @ 07:[address] Ade Finn MD) Acute on chronic congestive heart failure (Acute) Anasarca (Acute) Supratherapeutic INR (Acute) Hyperkalemia (Acute) Chronic Problems (Last Updated 10/30/19 @ 07:[address] Ade Finn MD) Chronic kidney disease (CKD) (Chronic) CHF (congestive heart failure) (Chronic) Morbid obesity with BMI of 50.0-59.9, adult (Chronic) assisted current use of anticoagulant (Chronic) History of right and left heart catheterization (Chronic 02/18/98) Done s/p VSD repair Per Dr. Sherif Espinoza @ [facility]: normal coronaries, mildly elevated PA pressures Paroxysmal SVT (supraventricular tachycardia) (Chronic) Atrial fibrillation (Chronic) History of atrial flutter (Chronic) Attempted atrial flutter ablation @ [facility] X 1 in 1997 (unsuccessful), followed by Atrial flutter ablations X [address] Paul at [facility] in Apr and October of 1998 Chronic diastolic congestive heart failure (Chronic) History of patent ductus arteriosus as a child (Chronic) Repaired at age 3 years, done @ [facility] Nonrheumatic tricuspid valve regurgitation (Chronic) Leaflet used for VSD repair in past History of ventricular septal defect repair (Chronic) 1977 (pt approx age 18) using Dacron patch, done at [facility] Hyperlipidemia (Chronic) Hypertension (Chronic) Diabetes mellitus, type II (Chronic) History of radiofrequency ablation procedure for cardiac arrhythmia (Chronic) Attempted atrial flutter ablation @ [facility] X 1 (unsuccessful), followed by Atrial flutter ablations X [address] Paul at [facility] in Apr and October of 1998 Pulmonary hypertension, moderate to severe (Chronic) PASP 69 mmHg in September 2013 LASHAWN (obstructive sleep apnea) (Chronic) Plan 1. Acute CHF?admit patient to progressive care unit, continue Lasix 40 mg IV twice daily. Consider adding Zaroxolyn in the morning. Repeat BMP in a.m. consider cardiology consult if fails to improve. Patient sees Dr. Khanna. Will order new echocardiogram in a.m. due to worsening symptoms. 2. Chronic kidney disease repeat BMP 3. Cough with shortness of breath?patient's COVID test is pending at time of evaluation 4. Hyperlipidemia?continue statin 5. Hypertension?continue home medications 6. Diabetes?continue routine medication 7. Obstructive sleep apnea okay to use CPAP 8. DVT prophylaxis?SCDs Inpatient E&M: 96099 Init Hosp L3
[2019-11-21] MEDS: Furosemide 40 MG/4 ML Vial IV ×2 (02:38→10:26)
[2019-11-21] MEDS: Benzonatate 100 MG Capsule PO ×3 (04:52→21:08)
--- NOTE | 2019-11-21 05:55 | ECHOD_ITS ---
Reason For Study: CHF Procedure This was a 2D Doppler, Color Flow transthoracic echocardiogram. The study was technically limited. Exam was limited due to pt body habitus and SOB - pt sat on side of bed for echo. Exam performed portable in patient room. Left Ventricle Based upon the 2D echocardiographic and contrast enhanced images obtained there appears to be grossly normal left ventricular size, wall motion, and systolic function. The estimated ejection fraction is 55 %. Unable to assess diastolic dysfunction. Right Ventricle Moderately dilated right ventricle. Moderate global right ventricular systolic dysfunction. Atria The left atrium is not well visualized. The right atrium is severely enlarged. The atrial septum is not well visualized. Mitral Valve Mitral valve not well visualized. Tricuspid Valve Normal tricuspid valve. Moderately severe (3+) eccentric tricuspid valve insufficiency. Right ventricular systolic pressure estimated to be 71 mmHg. Aortic Valve The aortic valve is not well visualized. Pulmonic Valve The pulmonic valve is not well visualized. Great Vessels The aortic root is not well visualized. Pericardium/Pleural No pericardial effusion. Medication Unable to use Definity due to elevated PAP/ severe TR. MMode/2D Measurements & Calculations RVDd: 5.7 cm LAV(MOD-sp4): 68.6 ml LA A4 area: 24.0 cm2 RA A4 area: 31.2 cm2 Time Measurements MV dec time: 0.24 sec Doppler Measurements & Calculations MV E max jill: 121.6 cm/sec Ao V2 max: 144.2 cm/sec LV V1 max: 106.2 cm/sec MV A max jill: 82.8 cm/sec Ao max P.4 mmHg LV V1 max P.5 mmHg MV E/A: 1.5 TR max jill: 373.9 cm/sec TR max P.9 mmHg Interpretation Summary The study was technically limited. Based upon the 2D echocardiographic and contrast enhanced images obtained there appears to be grossly normal left ventricular size, wall motion, and systolic function. The estimated ejection fraction is 55 %. Moderately dilated right ventricle. Moderate global right ventricular systolic dysfunction. Right ventricular systolic pressure estimated to be 71 mmHg compatible with severe pulmonary hypertension. Unable to assess diastolic dysfunction. Comment: The atrial septum and ventricular septum are not well visualized. Ordering Physician: Bhavin Doss Referring Physician: ZANDRA BOOKER Performed By: Corrie Mckenna, SONIDO, RVT
[2019-11-21] MEDS: Acetaminophen 325 MG Tablet 650 MG PO ×3 (06:36→21:55)
[2019-11-21 06:56] LABS: Absolute Lymphocyte Count 0.92 X10^3/uL (0.83-4.51); Absolute Neutrophil Count 5.7 X10^3/uL (2.0-7.7); Basophil# 0.02 X10^3/uL; Basophil% 0.3 % (0-1); Eosinophil# 0.26 X10^3/uL; Eosinophils% 3.3 % (0-5); Hematocrit 40.1 % (40-54); Hemoglobin 11.9 g/dL (13.0-16.5); Lymphocyte # 0.92 X10^3/ul (4.0); Lymphocyte % 11.6 % (19-41); Mean Corp Hgb Conc 29.7 g/dL (32-36); Mean Corpuscular Hgb 25.8 pg (27.0-32.0); Mean Corpuscular Volume 86.8 fL (80-94); Mean Platelet Vol. 9.5 fl (6.2-12.0); Monocyte# 0.95 X10^3/uL; NRBC Flagged by Analyzer 0 % (0-5); Neutrophil % 72.2 % (47-70); Platelet Count 265 K/mm3 (150-450); RBC Distribution Width CV 17.4 % (11.6-14.6); RBC Distribution Width SD 55.1 fl (35.1-43.9); Red Blood Count 4.62 M/mm3 (4.6-6.2); White Blood Count 7.9 K/mm3 (4.4-11.0)
[2019-11-21 07:34] LABS: Anion Gap 6 (5-15); BUN 41 mg/dL (7-18); BUN/Creat Ratio 20.4 RATIO (10-20); Calcium,Total 8.5 mg/dL (8.5-10.1); Chloride 97 mmol/L (98-107); Creatinine, Serum 2.01 mg/dL (0.70-1.30); EST Glomerular Filtration Rate 36 mL/min (>60); Est Glom Filt Rate - Afr Amer 44 mL/min (>60); Estimated Creatinine Clearance 37.34 ml/min; Glucose 112 mg/dL (74-106); Potassium 4.5 mmol/L (3.5-5.1); Sodium Level 135 mmol/L (136-145)
[2019-11-21] MEDS: Multivitamins,Therapeutic Tablet 1 TABLET PO (09:00)
[2019-11-21] MEDS: Amiodarone 200 MG Tablet PO ×2 (09:00→18:18)
[2019-11-21] MEDS: Tamsulosin HCl 0.4 MG Capsule PO (09:01)
[2019-11-21] MEDS: Doxycycline 100 MG CAPSULE PO ×2 (09:01→21:09)
[2019-11-21] MEDS: metOLazone 5 MG Tablet PO (09:01)
[2019-11-21] MEDS: 0.9% Saline Lock 10 ML Syringe IV (10:26)
--- NOTE | 2019-11-21 11:28 | PCM.PN.HOSP ---
<David Nolasco - Last Filed: 11/21/19 11:28> Patient Problems: Active and Suspected Problems (Last Updated 10/30/19 @ 07:[address] Ade Finn MD) Acute on chronic congestive heart failure (Acute) Anasarca (Acute) Reason for Visit: SOB, CHF Subjective: Ongoing SOB, minimal improveent. Non productive cough. Ongoing LE edema, ongoing Orthopnea. Pt feels minimal improvement since admission. Pt does not feel he has had any increase in urination, states he has no difficulty voiding. No fever/chills. No CP or palpitations. Vitals/I&O's: Vital Signs Temp Pulse Resp BP Pulse Ox 97.3 F L 55 L 18 129/63 H 96 11/21/19 09:00 11/21/19 09:00 11/21/19 09:00 11/21/19 09:00 11/21/19 09:00 Oxygen Flow Rate (L/min) 3 Oxygen Delivery Method Nasal Cannula Weight: 381 lb 6.395 oz Body Mass Index (BMI) 57.9 Finger Stick Blood Glucose 479 Intake and Output for Last 24 Hours 11/19/19 11/20/19 11/21/19 23:59 23:59 23:59 Intake Total 150 / 150 Output Total 500 / 500 Balance -350 / -350 General: Alert, Oriented x3, Cooperative HEENT: Atraumatic, PERRLA, EOMI, Normocephalic Neck: Supple, No JVD, Negative Carotid Bruits Lungs: Normal air movement, Diminished Cardiovascular: Regular rate, No murmurs Abdomen: Bowel Sounds Present, Soft, Non Tender, Obese Extremities: Capillary Refill Less than 3 Seconds, Edema - 2-3+ pitting edema BL LE Skin: No rashes, No breakdown Musculoskeletal: No Tenderness to Palpation of Joints or Extremities Neurological: Cranial nerves II-XII grossly intact Psych/Mental Status: Normal Affect, Appropriate, Alert and oriented to time, place, person, mood and affect Laboratory Results 11/20/19 22:30: WBC 7.5, RBC 4.63, Hgb 12.0 L, Hct 40.7, MCV 87.9, MCH 25.9 L, MCHC 29.5 L, RDW Std Deviation 56.3 H, RDW Coeff of Janiya 17.6 H, Plt Count 327, MPV 10.4, Neut % (Auto) Not Reportable, Absolute Neuts (auto) 5.7, Absolute Lymphs (auto) 1.35, Total Counted 100, Neutrophils % (Manual) 73 H, Band Neutrophils % 3, Lymphocytes % (Manual) 18 L, Monocytes % (Manual) 5, Metamyelocytes % 3 H, Diff Path Review August, Platelet Estimate ADEQUATE, RBC Morphology NORM C+C 11/20/19 22:30: Sodium 138, Potassium 4.9, Chloride 101, Carbon Dioxide 34.0 H, Anion Gap 3 L, BUN 41 H, Creatinine 2.11 H, Estim Creat Clear Calc 35.57, Est GFR (MDRD) Af Amer 41 L, Est GFR (MDRD) Non-Af 34 L, BUN/Creatinine Ratio 19.4, Glucose 116 H, Calcium 8.5, Troponin I < 0.015 11/20/19 22:30: PT 34.0 H, INR 3.4 11/20/19 22:52: COVID-19 ([facility]) Negative 11/20/19 23:30: Urine Color Yellow, Urine Clarity Clear, Urine pH 5.0, Ur Specific [place] 1.015, Urine Protein Negative, Urine Glucose (UA) Normal, Urine Ketones Negative, Urine Occult Blood Negative, Urine Nitrite Negative, Urine Bilirubin Negative, Urine Urobilinogen Normal, Ur Leukocyte Esterase 25 H, Urine RBC 0 SEEN, Urine WBC 0 SEEN, Ur Squamous Epith Cells 0 SEEN, Urine Bacteria 0 SEEN, Urine Mucus 0 SEEN 11/21/19 05:50: WBC 7.9, RBC 4.62, Hgb 11.9 L, Hct 40.1, MCV 86.8, MCH 25.8 L, MCHC 29.7 L, RDW Std Deviation 55.1 H, RDW Coeff of Janiya 17.4 H, Plt Count 265, MPV 9.5, Immature Gran % (Auto) 0.600, Neut % (Auto) 72.2 H, Lymph % (Auto) 11.6 L, [place] % (Auto) 12.0 H, Eos % (Auto) 3.3, Baso % (Auto) 0.3, Absolute Neuts (auto) 5.7, Absolute Lymphs (auto) 0.92, Nucleated RBC % 0 11/21/19 05:50: Sodium 135 L, Potassium 4.5, Chloride 97 L, Carbon Dioxide 32.0, Anion Gap 6, BUN 41 H, Creatinine 2.01 H, Estim Creat Clear Calc 37.34, Est GFR (MDRD) Af Amer 44 L, Est GFR (MDRD) Non-Af 36 L, BUN/Creatinine Ratio 20.4 H, Glucose 112 H, Calcium 8.5 Current Medications Acetaminophen (Tylenol) 650 mg PO Q6H PRN PRN PRN Reason: Pain Score 1-1010 Last Admin: 11/21/19 06:36 Dose: 650 mg Documented by: [facility] Last Admin: 11/21/19 09:00 Dose: 200 mg Documented by: Atorvastatin Calcium (Lipitor) 20 mg PO QHS [facility] Benzonatate (Tessalon Perle) 100 mg PO TID PRN PRN PRN Reason: COUGH Last Admin: 11/21/19 04:52 Dose: 100 mg Documented by: Doxycycline Monohydrate (Doxycycline) 100 mg PO BID [facility] [place] Stop: 11/22/19 22:00 Last Admin: 11/21/19 09:01 Dose: 100 mg Documented by: Furosemide (Lasix) 40 mg IV BID@1000,1800 [facility] [place] Last Admin: 11/21/19 10:26 Dose: 40 mg Documented by: Sodium Chloride () 250 mls @ 15 mls/hr IV .[id number] PRN PRN Reason: Saline Flush Sodium Chloride () 250 mls @ 15 mls/hr IV .[id number] PRN PRN Reason: Additional IVPB Infusion Insulin Glargine (Lantus (Bkc)) 40 units SC BID [facility] Metolazone (Zaroxolyn) 5 mg PO DAILY [facility] [place] Last Admin: 11/21/19 09:01 Dose: 5 mg Documented by: Metoprolol Succinate (Toprol Xl (Beta Rakesh)) 50 mg PO DAILY [facility] [place] Last Admin: 11/21/19 09:01 Dose: Not Given Documented by: [facility]it[facility] ([facility]amin) [facility] Last Admin: 11/21/19 09:00 Dose: 1 tablet Documented by: Potassium Chlor[facility] (K-Dur) [facility] Last Admin: 11/21/19 09:01 Dose: 40 meq Documented by: Sodium Chloride () 10 - 40 ml IV UD PRN PRN Reason: SALINE FLUSH Last Admin: 11/21/19 10:26 Dose: 10 ml Documented by: Tamsulosin HCl (Flomax) 0.4 mg PO DAILY [facility] Last Admin: 11/21/19 09:01 Dose: 0.4 mg Documented by: STROKE Vital Signs/Narrative: Vital Signs Temp Pulse Resp BP Pulse Ox 11/21/19 09:00 97.3 F L 55 L 18 129/63 H 96 Medical Necessity - Tobacco Use Smoking Status: Never smoker Assessment/Plan All Active Problems (Last Updated 10/30/19 @ 07:[address] Ade Finn MD) Acute on chronic congestive heart failure (Acute) Anasarca (Acute) Supratherapeutic INR (Acute) Hyperkalemia (Acute) 1. Acute on chronic diastolic CHF, complicated by pulmonary HTN - last echo 05/01 EF 60%. Consider lasix drip. Minimal output so far with 40 IV BID. Trop neg. Stres test 11/28 negative for ischemia. EKG shows sinus kenny 1st degree av block PVCs RBBB. Pt here with CHF in October as well. No hx CAD. Consult cardiology. 2. Hx aflutter, pAfib - SR, sinus kenny 1st degree AV block. Continue coumadin. inr in AM. Also hx NSVT 3. CKDIII- stable. trend 4. Hx VSD/PDA - repaired during childhood. 5. 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 Continue lantus, TID insulin, SSI. DVT ppxl coumadin This patient was seen by David Nolasco PA-C under the supervision of Dr. Thorne. <Christine Thorne - Last Filed: 11/21/19 16:40> Subjective: Pt frustrated. Feels no better. States that he was down to 301 with HD and since stopping HD in July his weight has slowly crept back up and his diuretics have been difficult to manage. Has ongoing edema and a wet cough. Vitals/I&O's: Vital Signs Temp Pulse Resp BP Pulse Ox 97.1 F L 60 18 127/61 H 97 11/21/19 15:00 11/21/19 15:00 11/21/19 15:00 11/21/19 15:00 11/21/19 15:00 Oxygen Flow Rate (L/min) 3 Oxygen Delivery Method Nasal Cannula Weight: 173 kg Body Mass Index (BMI) 57.9 Finger Stick Blood Glucose 479 Intake and Output for Last 24 Hours 11/19/19 11/20/19 11/21/19 23:59 23:59 23:59 Intake Total 600 / 600 Output Total 1200 / 1200 Balance -600 / -600 General: Alert, Oriented x3, Cooperative, No apparent distress, Well developed, Well nourished, - - MO WM sitting up in a chair, wet cough, at bedside HEENT: Atraumatic, PERRLA, EOMI, Normocephalic, EAC Clear Oral: Moist Mucosa, No Gingival or Mucosal Lesions/ Ulcerations, - - mallampati 3-4 Neck: Supple, Negative Carotid Bruits, Trachea Midline, Thyroid Normal Size and Texture, JVD, Bilateral, - - short thick neck Lungs: No rhonchi, No wheeze, Diminished, Rales - B bases, Short of Breath Cardiovascular: Regular rate, Normal S1, Normal S2, No murmurs, - - few ectopic beats Abdomen: Bowel Sounds Present, Soft, Non Tender, Non-Distended, Obese, No hernias noted Extremities: No clubbing, No cyanosis, Capillary Refill Less than 3 Seconds, Edema - 2-3+ pitting edema BL LE and anasarca Skin: No rashes, No breakdown Musculoskeletal: No Tenderness to Palpation of Joints or Extremities, No Muscle Wasting, Arthritic Changes Lymphatic: No Cervical, Supraclavicular, or Inguinal Adenopathy Neurological: Cranial nerves II-XII grossly intact, Neuro grossly intact, Muscle tone normal, Coordination normal Psych/Mental Status: Normal Affect, Appropriate, Alert and oriented to time, place, person, mood and affect Laboratory Results 11/20/19 22:30: WBC 7.5, RBC 4.63, Hgb 12.0 L, Hct 40.7, MCV 87.9, MCH 25.9 L, MCHC 29.5 L, RDW Std Deviation 56.3 H, RDW Coeff of Janiya 17.6 H, Plt Count 327, MPV 10.4, Neut % (Auto) Not Reportable, Absolute Neuts (auto) 5.7, Absolute Lymphs (auto) 1.35, Total Counted 100, Neutrophils % (Manual) 73 H, Band Neutrophils % 3, Lymphocytes % (Manual) 18 L, Monocytes % (Manual) 5, Metamyelocytes % 3 H, Diff Path Review Reviewed, Platelet Estimate ADEQUATE, RBC Morphology NORM C+C 11/20/19 22:30: Sodium 138, Potassium 4.9, Chloride 101, Carbon Dioxide 34.0 H, Anion Gap 3 L, BUN 41 H, Creatinine 2.11 H, Estim Creat Clear Calc 35.57, Est GFR (MDRD) Af Amer 41 L, Est GFR (MDRD) Non-Af 34 L, BUN/Creatinine Ratio 19.4, Glucose 116 H, Calcium 8.5, Troponin I < 0.015 11/20/19 22:30: PT 34.0 H, INR 3.4 11/20/19 22:52: COVID-19 ([facility]) Negative 11/20/19 23:30: Urine Color Yellow, Urine Clarity Clear, Urine pH 5.0, Ur Specific [place] 1.015, Urine Protein Negative, Urine Glucose (UA) Normal, Urine Ketones Negative, Urine Occult Blood Negative, Urine Nitrite Negative, Urine Bilirubin Negative, Urine Urobilinogen Normal, Ur Leukocyte Esterase 25 H, Urine RBC 0 SEEN, Urine WBC 0 SEEN, Ur Squamous Epith Cells 0 SEEN, Urine Bacteria 0 SEEN, Urine Mucus 0 SEEN 11/21/19 05:50: WBC 7.9, RBC 4.62, Hgb 11.9 L, Hct 40.1, MCV 86.8, MCH 25.8 L, MCHC 29.7 L, RDW Std Deviation 55.1 H, RDW Coeff of Janiya 17.4 H, Plt Count 265, MPV 9.5, Immature Gran % (Auto) 0.600, Neut % (Auto) 72.2 H, Lymph % (Auto) 11.6 L, [place] % (Auto) 12.0 H, Eos % (Auto) 3.3, Baso % (Auto) 0.3, Absolute Neuts (auto) 5.7, Absolute Lymphs (auto) 0.92, Nucleated RBC % 0 11/21/19 05:50: Sodium 135 L, Potassium 4.5, Chloride 97 L, Carbon Dioxide 32.0, Anion Gap 6, BUN 41 H, Creatinine 2.01 H, Estim Creat Clear Calc 37.34, Est GFR (MDRD) Af Amer 44 L, Est GFR (MDRD) Non-Af 36 L, BUN/Creatinine Ratio 20.4 H, Glucose 112 H, Calcium 8.5 11/21/19 05:50: B-Natriuretic Peptide 204.8 H 11/21/19 11:26: POC Glucose 136 H Current Medications Acetaminophen (Tylenol) 650 mg PO Q6H PRN PRN PRN Reason: Pain Score 1-01/19 Last Admin: 11/21/19 15:45 Dose: 650 mg Documented by: [facility]) [facility] Last Admin: 11/21/19 09:00 Dose: 200 mg Documented by: Atorvastatin Calcium (Lipitor) 20 mg PO QHS [facility] Benzonatate (Tessalon Perle) 100 mg PO TID PRN PRN PRN Reason: COUGH Last Admin: 11/21/19 13:33 Dose: 100 mg Documented by: Doxycycline Monohydrate (Doxycycline) 100 mg PO BID [facility] [place] Stop: 11/22/19 22:00 Last Admin: 11/21/19 09:01 Dose: 100 mg Documented by: Sodium Chloride () 250 mls @ 15 mls/hr IV .[id number] PRN PRN Reason: Saline Flush Sodium Chloride () 250 mls @ 15 mls/hr IV .[id number] PRN PRN Reason: Additional IVPB Infusion Bumetanide 25 mg/ (Miscellaneous Information) 100 mls @ 4 mls/hr CONT INF .Q25H [facility] [place] Last Admin: 11/21/19 13:49 Dose: 1 mg/hr, 4 mls/hr Documented by: Insulin Glargine (Lantus (Bkc)) 40 units SC BID [facility] [place] Last Admin: 11/21/19 11:31 Dose: 40 u Documented by: Insulin Human Lispro (Humalog Kwikpen (Bkc)) 5 unit SC LUNCH [facility] [place] Last Admin: 11/21/19 13:24 Dose: 5 u Documented by: Insulin Human Lispro (Humalog Kwikpen (Bk)) 7 unit SC BREAKFAST [facility] [place] Insulin Human Lispro (Humalog Kwikpen (Bkc)) 6 unit SC DINNER [facility] [place] Metolazone (Zaroxolyn) 5 mg PO DAILY [facility] [place] Last Admin: 11/21/19 09:01 Dose: 5 mg Documented by: Metoprolol Succinate (Toprol Xl (Beta Rakesh)) 50 mg PO DAILY [facility] [place] Last Admin: 11/21/19 09:01 Dose: Not Given Documented by: Multivitamins ([facility]itamin) [facility] Last Admin: 11/21/19 09:00 Dose: 1 tablet Documented by: Potassium Chloride (K-Dur) 40 meq PO BIDCM [facility] [place] Last Admin: 11/21/19 09:01 Dose: 40 meq Documented by: Sodium Chloride () 10 - 40 ml IV UD PRN PRN Reason: SALINE FLUSH Last Admin: 11/21/19 10:26 Dose: 10 ml Documented by: Tamsulosin HCl (Flomax) 0.4 mg PO DAILY [facility] [place] Last Admin: 11/21/19 09:01 Dose: 0.4 mg Documented by: STROKE Vital Signs/Narrative: Vital Signs Temp Pulse Resp BP Pulse Ox 11/21/19 15:00 97.1 F L 60 18 127/61 H 97 Assessment/Plan I agree with the above and the following is a reflection if my independent history and physical ASSESSMENT Acute Hypoxic on Chronic Hypoxic/Hypercapnic Respiratory Failure 2/2 AEHFrEF/Volume Overload -on 3 L O2 at baseline CKD -was HD dependent from Apr-July PAF Mild Anemia LASHAWN/OHS HFpEF/Diastolic dysfunction 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 if doesn't diurese well if we should UF -strict I&O -may need to consider pulm consult for RV failure and PAH -BIPAP as ordered--> using home unit -Monitor Na with diuresis -COVID was neg Inpatient E&M: [id number] Subs Hosp L3
[2019-11-21 11:46] LABS: Bedside Glucose 136 mg/dL (70-110)
--- NOTE | 2019-11-21 11:55 | PCM.CONS.C ---
Problem List (1) Acute on chronic congestive heart failure Status: Acute Qualifiers: Heart failure type: right-sided Qualified Code(s): I50.813 - Acute on chronic right heart failure (2) Paroxysmal SVT (supraventricular tachycardia) Status: Chronic (3) Atrial fibrillation Status: Chronic Qualifiers: Atrial fibrillation type: unspecified Qualified Code(s): I48.91 - Unspecified atrial fibrillation (4) History of atrial flutter Status: Chronic Comment: Attempted atrial flutter ablation @ [facility] X 1 in 1997 (unsuccessful), followed by Atrial flutter ablations X [address] Paul at [facility] in Apr and October of 1998 (5) History of radiofrequency ablation procedure for cardiac arrhythmia Status: Chronic Comment: Attempted atrial flutter ablation @ [facility] X 1 (unsuccessful), followed by Atrial flutter ablations X [address] Paul at [facility] in Apr and October of 1998 (6) History of patent ductus arteriosus as a child Status: Chronic Comment: Repaired at age 3 years, done @ [facility] (7) History of ventricular septal defect repair Status: Chronic Comment: 1977 (pt approx age 18) using Dacron patch, done at [facility] (8) Hyperlipidemia Status: Chronic Qualifiers: Hyperlipidemia type: unspecified Qualified Code(s): E78.5 - Hyperlipidemia, unspecified (9) Hypertension Status: Chronic Qualifiers: Hypertension type: essential hypertension Qualified Code(s): I10 - Essential (primary) hypertension (10) Pulmonary hypertension, moderate to severe Status: Chronic Comment: PASP 69 mmHg in September 2013 (11) Diabetes mellitus, type II Status: Chronic Qualifiers: Diabetes mellitus 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 Diabetes mellitus complication status: with other specified complication Qualified Code(s): E11.69 - Type 2 diabetes mellitus with other specified complication; Z79.4 - nursing home (current) use of insulin (12) LASHAWN (obstructive sleep apnea) Status: Chronic (13) Morbid obesity with BMI of 50.0-59.9, adult Status: Acute Reason for Consult Date of Consultation: 11/21/19 History of Present Illness: The patient is a 59 year old 59-year-old white male with a past medical history of chronic right-sided CHF, cardiac dysrhythmias with a history of PSVT, atrial fibrillation, atrial flutter, status post EPS/RFA, ([facility] and [facility]) status post PFD closure (age 3 at [facility]), status post VSD closure at these age 18 at [facility]), hyperlipidemia, hypertension, pulmonary hypertension, diabetes mellitus, obstructive sleep apnea, morbid obesity, who presents for evaluation of recurrent acute on chronic right-sided CHF. The patient states he has been having progressive shortness of breath/dyspnea that worsened yesterday. He states he has been unable to lie supine because he cannot breathe comfortably. He is also noted worsening of his lower extremity peripheral pitting edema. He has denied chest discomfort other than the sensation of his shortness of breath/dyspnea. He has denied ongoing palpitations or rapid heart rate. There is been no near syncope or syncope. He presented to [facility] for further evaluation. His troponin I level was negative. His ECG demonstrated sinus rhythm/sinus bradycardia with first-degree AV block with PACs with low voltage QRS and a right IVCD pattern. His chest x-ray suggested increasing pulmonary vascularity. He has undergone previous noninvasive and invasive cardiovascular studies in the past. They are noted below. [] Past Medical History Allergies/Adverse Reactions: Allergies albuterol Adverse Reaction (Verified 11/20/19 19:52) NEEDS FOLLOW-UP increased heart rate. amoxicillin trihydrate [From Augmentin] Adverse Reaction (Verified 11/20/19 19:52) Diarrhea indomethacin [From Indocin] Adverse Reaction (Verified 11/20/19 19:52) Nausea potassium clavulanate [From Augmentin] Adverse Reaction (Verified 11/20/19 19:52) Diarrhea Home Medications: Ambulatory Orders Medication Instructions Recorded Atorvastatin Calcium 20 mg PO QHS 04/16/19 Insulin Glargine [Lantus SoloStar 40 units SUBCUT BID pen 04/28/19 Pen] Insulin Lispro [Humalog KwikPen] 5 unit SUBCUT LUNCH insuln.pen 04/28/19 Insulin Lispro [Humalog KwikPen] 6 unit SUBCUT DINNER insuln.pen 04/28/19 Insulin Lispro [Humalog KwikPen] 7 unit SUBCUT BREAKFAST insuln.pen 04/28/19 Insulin Lispro [Humalog KwikPen] See Protocol SUBCUT ACHS 04/28/19 insuln.pen Metoprolol(XL)Succ [Toprol Xl 50 mg PO DAILY tab 04/28/19 (Beta Rakesh)] Amiodarone HCl 200 mg PO BID 08/08/19 Multivitamin [Daily Multiple 1 ea PO DAILY 10/28/19 Vitamin] Torsemide [Demadex] 20 mg PO BID 10/28/19 Furosemide [Lasix] 40 mg PO BIDLX #90 tab 11/01/19 Potassium Chloride [K-Dur] 40 meq PO BIDCM #90 tab 11/01/19 Tamsulosin HCl [Flomax] 0.4 mg PO DAILY #90 cap 11/01/19 Acetaminophen [Tylenol] 625 mg PO Q6H PRN PRN 11/21/19 Docusate Sodium [Colace] 100 mg PO DAILY PRN PRN 11/21/19 Doxycycline 100 mg PO BID 11/21/19 Melatonin 3 mg PO QHS PRN 11/21/19 Multivitamin with Minerals 1 ea PO DAILY 11/21/19 [Multiple Vitamin] Warfarin [Coumadin (PBKC)] 3 mg PO DAILY 11/21/19 Past Medical History (Chronic Problems): Chronic Problems (Last Updated 10/30/19 @ 07:[address] Ade Finn MD) Chronic kidney disease (CKD) (Chronic) CHF (congestive heart failure) (Chronic) Morbid obesity with BMI of 50.0-59.9, adult (Chronic) nursing home current use of anticoagulant (Chronic) History of right and left heart catheterization (Chronic 02/18/98) Done s/p VSD repair Per Dr. Sherif Espinoza @ [facility]: normal coronaries, mildly elevated PA pressures Paroxysmal SVT (supraventricular tachycardia) (Chronic) Atrial fibrillation (Chronic) History of atrial flutter (Chronic) Attempted atrial flutter ablation @ [facility] X 1 in 1997 (unsuccessful), followed by Atrial flutter ablations X [address] Paul at [facility] in Apr and October of 1998 Chronic diastolic congestive heart failure (Chronic) History of patent ductus arteriosus as a child (Chronic) Repaired at age 3 years, done @ [facility] Nonrheumatic tricuspid valve regurgitation (Chronic) Leaflet used for VSD repair in past History of ventricular septal defect repair (Chronic) 1977 (pt approx age 18) using Dacron patch, done at [facility] Hyperlipidemia (Chronic) Hypertension (Chronic) Diabetes mellitus, type II (Chronic) History of radiofrequency ablation procedure for cardiac arrhythmia (Chronic) Attempted atrial flutter ablation @ [facility] X 1 (unsuccessful), followed by Atrial flutter ablations X [address] Paul at [facility] in Apr and October of 1998 Pulmonary hypertension, moderate to severe (Chronic) PASP 69 mmHg in September 2013 LASHAWN (obstructive sleep apnea) (Chronic) Surgical History: - - VSD repair using tricuspid valve leaflet, PDA repair, HD access, RFA x 3. Psychiatric History: No pertinent psych hx - *Family History Maternal Family History: Family History (Last Reviewed 10/28/19 @ 03:[address] Fredi Cobb, ) Mother Hypertension Diabetes CVA (cerebral vascular accident) Valvular heart disease Father CVA (cerebral vascular accident) Hypertension Hyperlipidemia History Items: Diabetes, High Cholesterol, Heart Disease, Hypertension, Stroke, - - Mother with history of concurrent valvular heart disease. Paternal Family History: Family History (Last Reviewed 10/28/19 @ 03:[address] Fredi Cobb, ) Mother Hypertension Diabetes CVA (cerebral vascular accident) Valvular heart disease Father CVA (cerebral vascular accident) Hypertension Hyperlipidemia History Items: High Cholesterol, Heart Disease, Hypertension, Stroke Lives: Spouse/ Significant Other Smoking Status: Never smoker Alcohol: None Drugs: None Review of Systems - Review of Systems General: Denies: Fever, Night Sweats, Fatigue Cardiovascular: Reports: Shortness of Breath, Shortness of Breath at Rest, Shortness of Breath with Exertion, Peripheral Edema. Denies: Chest Discomfort, Orthopnea, PND, Palpitations, Lightheadedness, Dizziness, Near Syncope, Syncope Respiratory: Reports: Shortness of Breath. Denies: Cough, Sputum Production, Hemoptysis Gastrointestinal: Denies: Hematemesis, Hematochezia, Melena Genitourinary: Denies: Dysuria, Hematuria Skin: Denies: Rash Subjectve: This is a 59-year-old white male who appears to be short of breath and dyspneic and demonstrates on examination obvious significant bilateral lower extremity peripheral pitting edema. Objective: Vital Signs Temp Pulse Resp BP Pulse Ox 97.3 F L 55 L 18 129/63 H 96 11/21/19 09:00 11/21/19 09:00 11/21/19 09:00 11/21/19 09:00 11/21/19 09:00 Oxygen Flow Rate (L/min) 3 Oxygen Delivery Method Nasal Cannula Weight: 381 lb 6.395 oz Body Mass Index (BMI) 57.9 Finger Stick Blood Glucose 479 Intake and Output for Last 24 Hours 11/19/19 11/20/19 11/21/19 23:59 23:59 23:59 Intake Total 150 / 150 Output Total 500 / 500 Balance -350 / -350 General: Awake, Alert, Oriented x 3, Cooperative, Ill Appearing, Obese HEENT: Atraumatic, Normocephalic, PERRL, EOMI, Sclera Non Icteric Neck: Supple, Good ROM Lungs: Rales - Champ Bases Cardiovascular: Regular Rhythm, Premature Ectopic Beats, Normal S1, Normal S2 Abdomen: Bowel Sounds Present, Soft Extremities: Severe RLE Edema, Severe LLE Edema Psych/Mental Status: Appropriate 11/20/19 22:30: WBC 7.5, RBC 4.63, Hgb 12.0 L, Hct 40.7, MCV 87.9, MCH 25.9 L, MCHC 29.5 L, Plt Count 327, MPV 10.4, Neut % (Auto) Not Reportable, Absolute Neuts (auto) 5.7, Total Counted 100, Neutrophils % (Manual) 73 H, Band Neutrophils % 3, Lymphocytes % (Manual) 18 L, Monocytes % (Manual) 5, Metamyelocytes % 3 H 11/20/19 22:30: Sodium 138, Potassium 4.9, Chloride 101, Carbon Dioxide 34.0 H, Anion Gap 3 L, BUN 41 H, Creatinine 2.11 H, Est GFR (MDRD) Af Amer 41 L, Est GFR (MDRD) Non-Af 34 L, BUN/Creatinine Ratio 19.4, Glucose 116 H, Calcium 8.5, Troponin I < 0.015 11/20/19 22:30: PT 34.0 H, INR 3.4 11/20/19 23:30: Urine Color Yellow, Urine Clarity Clear, Urine pH 5.0, Ur Specific [place] 1.015, Urine Protein Negative, Urine Glucose (UA) Normal, Urine Ketones Negative, Urine Occult Blood Negative, Urine Nitrite Negative, Urine Bilirubin Negative, Urine Urobilinogen Normal, Ur Leukocyte Esterase 25 H, Urine RBC 0 SEEN, Urine WBC 0 SEEN 11/21/19 05:50: WBC 7.9, RBC 4.62, Hgb 11.9 L, Hct 40.1, MCV 86.8, MCH 25.8 L, MCHC 29.7 L, Plt Count 265, MPV 9.5, Immature Gran % (Auto) 0.600, Neut % (Auto) 72.2 H, Lymph % (Auto) 11.6 L, [place] % (Auto) 12.0 H, Eos % (Auto) 3.3, Baso % (Auto) 0.3, Absolute Neuts (auto) 5.7, Nucleated RBC % 0 11/21/19 05:50: Sodium 135 L, Potassium 4.5, Chloride 97 L, Carbon Dioxide 32.0, Anion Gap 6, BUN 41 H, Creatinine 2.01 H, Est GFR (MDRD) Af Amer 44 L, Est GFR (MDRD) Non-Af 36 L, BUN/Creatinine Ratio 20.4 H, Glucose 112 H, Calcium 8.5 Rhythm: Sinus rhythm EKG: As noted above ECHO: 04-16-2019 Interpretation Summary Normal LV size. Left ventricular systolic function is normal. The estimated ejection fraction is 60 %. Contrast injection was performed. The study was technically difficult. Transesophageal echocardiogram: 09-22-13 Interpretation Summary The estimated ejection fraction is 50 %. Mid-Anterior : Mildly hypokinetic Moderate hypertrophy of the right ventricle. Moderately dilated right ventricle. Bubble contrast study negative for right to left interatrial shunt. No thrombus is detected in the left atrial appendage. The right atrium is severely enlarged. Possible absent medial cusp of tricuspid valve at attachment site of previous VSD repair. Severe (4+) eccentric tricuspid valve insufficiency. Right ventricular systolic pressure estimated to be 69 mmHg. Severe pulmonary hypertension. Intact proximal VSD repair; no sign of color flow across repair site. Stress Test: 11-10-2018 Interpretation Summary The estimated ejection fraction is 65 %. Normal, adequate, dobutamine echocardiogram. Negative for ischemia by EKG and echocardiographic anterior. No anginal symptoms noted. Rare PVCs noted. Patient had transient atrial fibrillation and supraventricular tachycardia during infusion into recovery. This spontaneously converted back to normal sinus rhythm. Decreased sensitivity due to very poor echo windows requiring Definity enhancing agent. Final LVEF is 75%. No complications. Test terminated due to attainment of target heart rate. The study was technically difficult. Contrast injection was performed. Iliac cath: 02-18-1998: [facility] Right heart cardiac catheterization: Final diagnosis: Status post ventricular septal defect correction, pulmonary hypertension, high mean RA pressures with morphology consistent with moderate to severe TR Cardiac Cath: 11-02-2013: [facility] Left main coronary artery: Normal LAD: Normal LCx: Mid: Mildly diffuse disease RCA: Mildly irregular-codominant system Oxygen saturations: INN: 68% SVC 69% IVC 66% RA 65% Right ventricle 64% Aorta: 92% Right heart cath: Aortic: 141/87 Right atrium: 23 Right ventricle: 65/23 PA: 60/35 Pulmonary capillary wedge pressure: 28 No AV gradient Impression: Nonobstructive CAD Elevated right and left filling pressures and evidence of pulmonary venous hypertension Normal cardiac output/cardiac index No evidence of constrictive physiology CXR: Preliminary evaluation: As noted Assessment/Plan 1. Acute on chronic right heart failure thought secondary to cor pulmonale secondary to pulmonary hypertension At the present time the patient presents with recurrent acute on chronic right heart failure. At this time he is being monitored. He is continuing medical therapy with IV diuretics. An attempt will be made to alter his IV pulsed diuretics to IV continuous diuretics. His volume status and clinical status will need to be followed. So, he may need to be considered, at some point in time, for referral back to a tertiary care center for evaluation of his underlying cardiopulmonary disease process with concerns of pulmonary hypertension with cor pulmonale and right heart failure as to whether or not he is a candidate for other forms of medication including various vasodilators, etc. 2. Cardiac dysrhythmias status post EPS/RFA The patient has a history of cardiac dysrhythmias with reports of PSVT, atrial fibrillation/flutter, status post EPS/RFA at 2 different institutions. At the present time he appears to be remaining in sinus rhythm. His rate and rhythm will be followed. His medications can be adjusted as needed. 3. Congenital heart disease with PDA status post repair and VSD status post repair Again the patient has undergone tertiary care center evaluation and care for his congenital heart disease in the past. This may be a component for his history of pulmonary hypertension. At the present time will continue to be followed. An attempt is being made to obtain a transthoracic echocardiogram to reassess his cardiac anatomy and physiology. 4. Hyperlipidemia He can continue medical management as deemed appropriate. 5. Hypertension His blood pressure can be followed and his medications adjusted as needed. 6. Pulmonary hypertension He does have a history of pulmonary hypertension. This may be multifactorial with contribution from his history of congenital heart disease as well as his history of obstructive sleep apnea, etc. This can lead to cor pulmonale and right heart failure. Again he may need to be evaluated at a tertiary care center as to whether or not he is a candidate for any additional cardiovascular studies and/or therapy including various vasodilator agents. 7. Diabetes mellitus He will continue evaluation care per internal medicine. 8. Obstructive sleep apnea This can be a contributing factor to his cardiopulmonary findings. He will need continue evaluation care per internal medicine and other physicians as deemed appropriate. 9. Morbid obesity Unfortunately he remains morbidly obese. He has been counseled in the past on dietary therapy. Based upon his multiple medical issues he states he cannot be very active. Thus this continues to be a chronic problem for him. Comment: The patient's case was discussed and reviewed with the [facility] staff. This note was generated using a voice recognition system and there may be incorrect words, spelling or punctuation that were not noted when reviewing the office note prior to saving.
[2019-11-21 11:56] LABS: Pathologist Review Reviewed
[2019-11-21] MEDS: Insulin Lispro 100 UNIT/ML INSULN.PEN SC (13:24)
[2019-11-21] MEDS: Bumetanide 25 MG in CONTAINER,EMPTY 1 BAG 4 MG CONT INF (13:49)
--- NOTE | 2019-11-21 13:49 | CASEMGMT ---
Readmission chart review: Pt was initially admitted 10/27-11/01/2019 for CHF and was transitioned to [facility] at discharge at that time. Pt then was discharged from [facility] about a week ago and returned to [facility] ED on 11/20/2019 fluid overload and states has gained 30lbs in the last 2 weeks. Pt admitted again for CHF exacerbation. Pt is already on lasix 40mg BID and torsemide 20mg BID at home. CM to follow for possible palliative referral and PT/OT evals for further discharge planning. Pt placed on bumex drip at this time d/t not diuresing with the iv lasix at this time. Pt lives with family but still works. Pt has cardiology f/u appt on 11/27/2019. Angel MEJIA CM
[2019-11-21 14:05] LABS: BNP,B-Type NATRIURETIC PEPTIDE 204.8 pg/mL (0-100)
--- NOTE | 2019-11-21 14:46 | CASEMGMT ---
SW met with patient and his . Introduced self and role at [facility]. SW asked patient if his plan is to return home at discharge and he said, I am not even thinking about discharge. This is the worst I have ever been. SW asked him if his goal is to go home or assisted and he would not answer. SW asked if [facility] set him up with home health and he said they did with [facility]. Nursing, PT, and OT. The nurse made it out to see him, but therapy has not started yet. SW asked him about his oxygen. Patient's said it is through a company that starts with an A. SW asked if it was [employer] and it that is the company. SW then talked with patient and his about Palliative Care. They were open to taking the pamphlet and discussing it. SW gave them a pamphlet. SHAWN and RN CM to follow for d/c plan. Ellie CISNEROS DESK MAKER
[2019-11-21 18:05] LABS: Bedside Glucose 97 mg/dL (70-110)
[2019-11-21] MEDS: Atorvastatin Calcium 20 MG Tablet PO (21:09)
[2019-11-21 21:46] LABS: Bedside Glucose 108 mg/dL (70-110)
[2019-11-22] VITALS (9 sets, daily range): BP systolic 111–128; BP diastolic 50–53; PULSE 59–70; RESP 17–20; TEMP 36.1–37; O2SAT 94–98
[2019-11-22] MEDS: Acetaminophen 325 MG Tablet 650 MG PO ×2 (04:54→22:59)
[2019-11-22 06:11] LABS: Absolute Lymphocyte Count 1.16 X10^3/uL (0.83-4.51); Absolute Neutrophil Count 5.3 X10^3/uL (2.0-7.7); Basophil# 0.02 X10^3/uL; Basophil% 0.3 % (0-1); Eosinophil# 0.22 X10^3/uL; Eosinophils% 2.8 % (0-5); Hematocrit 38.9 % (40-54); Hemoglobin 11.6 g/dL (13.0-16.5); Lymphocyte # 1.16 X10^3/ul (4.0); Mean Corp Hgb Conc 29.8 g/dL (32-36); Mean Corpuscular Hgb 25.6 pg (27.0-32.0); Mean Corpuscular Volume 85.9 fL (80-94); Mean Platelet Vol. 8.9 fl (6.2-12.0); NRBC Flagged by Analyzer 0 % (0-5); Neutrophil # 5.27 X10^3/uL (2.7-7.7); Neutrophil % 68.3 % (47-70); Platelet Count 264 K/mm3 (150-450); RBC Distribution Width CV 17.2 % (11.6-14.6); RBC Distribution Width SD 53.4 fl (35.1-43.9); Red Blood Count 4.53 M/mm3 (4.6-6.2); White Blood Count 7.7 K/mm3 (4.4-11.0)
[2019-11-22 06:20] LABS: International Normalized Ratio 2.6; Prothrombin Time (Protime)PT. 27.8 SECONDS (11.7-14.9)
[2019-11-22 06:49] LABS: Anion Gap 6 (5-15); BUN 42 mg/dL (7-18); BUN/Creat Ratio 21.3 RATIO (10-20); Calcium,Total 8.9 mg/dL (8.5-10.1); Chloride 93 mmol/L (98-107); Creatinine, Serum 1.97 mg/dL (0.70-1.30); EST Glomerular Filtration Rate 37 mL/min (>60); Est Glom Filt Rate - Afr Amer 45 mL/min (>60); Glucose 50 mg/dL (74-106); Potassium 3.3 mmol/L (3.5-5.1); Sodium Level 138 mmol/L (136-145)
[2019-11-22 08:06] LABS: Bedside Glucose 56 mg/dL (70-110)
[2019-11-22] MEDS: Amiodarone 200 MG Tablet PO ×2 (08:29→15:55)
[2019-11-22] MEDS: Multivitamins,Therapeutic Tablet 1 TABLET PO (08:29)
[2019-11-22 08:36] LABS: Bedside Glucose 85 mg/dL (70-110)
[2019-11-22] MEDS: Metoprolol(XL)Succ 50 MG Tablet PO (09:18)
[2019-11-22] MEDS: metOLazone 5 MG Tablet PO (09:18)
[2019-11-22] MEDS: Tamsulosin HCl 0.4 MG Capsule PO (09:18)
[2019-11-22] MEDS: Doxycycline 100 MG CAPSULE PO (09:18)
[2019-11-22] MEDS: Bumetanide 25 MG in CONTAINER,EMPTY 1 BAG 4 MG CONT INF (11:41)
[2019-11-22 11:56] LABS: Bedside Glucose 108 mg/dL (70-110)
--- NOTE | 2019-11-22 12:13 | PN.CARD_ITS ---
Subjectve: Patient seen and examined. Patient is in reclining chair at this time, sitting straight up. Patient never goes to sleep laying down for many many years. Still has 3+ bilateral lower extremity edema and currently on a Bumex drip. Telemetry showed normal sinus rhythm with rare PVCs. Objective: Vital Signs Temp Pulse Resp BP Pulse Ox 98.6 F 66 20 H 122/51 H 96 11/22/19 09:00 11/22/19 09:18 11/22/19 09:00 11/22/19 09:00 11/22/19 09:00 Oxygen Flow Rate (L/min) 3 Oxygen Delivery Method Nasal Cannula Weight: 376 lb 15.847 oz Body Mass Index (BMI) 57.9 Finger Stick Blood Glucose 479 Intake and Output for Last 24 Hours 11/20/19 11/21/19 11/22/19 23:59 23:59 23:59 Intake Total 1580.4 / 1580.4 697.06 / 697.06 Output Total 2900 / 2900 1700 / 1700 Balance -1319.6 / -1319.6 -1002.94 / -1002.94 General: Awake, Alert, Oriented x 3 HEENT: PERRL, EOMI, Sclera Non Icteric Neck: Supple, Good ROM, No Lymph Node Enlargement Lungs: Clear to auscultation Cardiovascular: Regular Rhythm, Normal S1, Normal S2, No Murmurs, No Rubs, No Gallops Vascular: No Carotid Bruits, Normal Femoral Pulses, Normal Radial Pulses, Normal Dorsalis Pedal Pulse, Normal Posterior Tibial Pulses Abdomen: Bowel Sounds Present, Soft, Non Tender, No HSM, No Organomegaly Extremities: No Cyanosis, No Clubbing, Bilateral Edema +3 Neurological: No Focal Motor or Sensory Deficit 11/21/19 05:50: B-Natriuretic Peptide 204.8 H 11/22/19 05:45: WBC 7.7, RBC 4.53 L, Hgb 11.6 L, Hct 38.9 L, MCV 85.9, MCH 25.6 L, MCHC 29.8 L, Plt Count 264, MPV 8.9, Immature Gran % (Auto) 0.600, Neut % (Auto) 68.3, Lymph % (Auto) 15.0 L, [place] % (Auto) 13.0 H, Eos % (Auto) 2.8, Baso % (Auto) 0.3, Absolute Neuts (auto) 5.3, Nucleated RBC % 0 11/22/19 05:45: Sodium 138, Potassium 3.3 L, Chloride 93 L, Carbon Dioxide 39.0 H, Anion Gap 6, BUN 42 H, Creatinine 1.97 H, Est GFR (MDRD) Af Amer 45 L, Est GFR (MDRD) Non-Af 37 L, BUN/Creatinine Ratio 21.3 H, Glucose 50 L, Calcium 8.9 11/22/19 05:45: PT 27.8 H, INR 2.6 Rhythm: EKG: ECHO: Stress Test: Cardiac Cath: PCI: CT Surgery: Holter monitor: EPS: PPM: CXR: Chest CT Scan: Medical Necessity - Tobacco Use Smoking Status: Never smoker Assessment/Plan 1. Pulmonary hypertension: The patient has severe pulmonary pretension and status post VSD and PFO repair many years ago. Patient has now acute on chronic right-sided biventricular failure, and is currently on a Bumex drip. He is also on metolazone daily, and his EKG shows normal sinus rhythm with first-degree AV block. At this point I would not recommend diagnostic coronary catheterization at this time particularly because he is unable to lay down flat, as well as his complex cardiac nature. I would recommend continuing Bumex drip at current course and with a negative diuresis of approximately 1 L to 2 L/day. It is doubtful his p.o. diuretics are getting into his bloodstream given his intestinal edema as well. Would recommend IV Diuril x1 to facilitate IV diuresis. His most recent echocardiogram dated 11/21/2019 is as follows: he study was technically limited. Based upon the 2D echocardiographic and contrast enhanced images obtained there appears to be grossly normal left ventricular size, wall motion, and systolic function. The estimated ejection fraction is 55 %. Moderately dilated right ventricle. Moderate global right ventricular systolic dysfunction. Right ventricular systolic pressure estimated to be 71 mmHg compatible with severe pulmonary hypertension. Unable to assess diastolic dysfunction. Comment: The atrial septum and ventricular septum are not well visualized. In addition, recommend continuing Coumadin therapy to prevent DVT/pulmonary emboli. 2. Coronary artery disease: Patient denies any anginal symptoms at this time, and his most recent stress test in 2013 was negative for ischemia. We will hold off on catheterization at this time. 3. Continue 1500 cc fluid restriction, and [place] bandages to his legs to facilitate venous return. 4. Patient has an overall poor prognosis given his severe pulmonary retention. Inpatient E&M: 05270 Subs Hosp L2
--- NOTE | 2019-11-22 12:28 | PCM.PN.HOSP ---
<David Nolasco - Last Filed: 11/22/19 12:28> Patient Problems: Active and Suspected Problems (Last Updated 10/30/19 @ 07:[address] Ade Finn MD) Acute on chronic congestive heart failure (Acute) Anasarca (Acute) Reason for Visit: SOB Subjective: Stable on baseline o2 (3lpm), still significant LE edema and breathing not back to baseline. No CP/pressure/tightness/LH/dizziness. Pt has had a significant increase in his urine output. Pt has not been able to catch all his urine as he has been incontinent on the floor before getting to the commode. Vitals/I&O's: Vital Signs Temp Pulse Resp BP Pulse Ox 98.6 F 66 20 H 122/51 H 96 11/22/19 09:00 11/22/19 09:18 11/22/19 09:00 11/22/19 09:00 11/22/19 09:00 Oxygen Flow Rate (L/min) 3 Oxygen Delivery Method Nasal Cannula Weight: 376 lb 15.847 oz Body Mass Index (BMI) 57.9 Finger Stick Blood Glucose 479 Intake and Output for Last 24 Hours 11/20/19 11/21/19 11/22/19 23:59 23:59 23:59 Intake Total 1580.4 / 1580.4 697.06 / 697.06 Output Total 2900 / 2900 1700 / 1700 Balance -1319.6 / -1319.6 -1002.94 / -1002.94 General: Alert, Oriented x3, Cooperative HEENT: Atraumatic, PERRLA, EOMI, Normocephalic Neck: Supple, No JVD, Negative Carotid Bruits Lungs: Diminished, Rales - BL bases Cardiovascular: Irregular Rate Abdomen: Bowel Sounds Present, Soft, Non Tender Extremities: Capillary Refill Less than 3 Seconds, Edema - 3+ pitting edema BL LE Skin: No rashes, No breakdown Musculoskeletal: No Tenderness to Palpation of Joints or Extremities Neurological: Cranial nerves II-XII grossly intact Psych/Mental Status: Normal Affect, Appropriate, Alert and oriented to time, place, person, mood and affect Laboratory Results 11/21/19 05:50: B-Natriuretic Peptide 204.8 H 11/21/19 17:14: POC Glucose 97 11/21/19 21:08: POC Glucose 108 11/22/19 05:45: WBC 7.7, RBC 4.53 L, Hgb 11.6 L, Hct 38.9 L, MCV 85.9, MCH 25.6 L, MCHC 29.8 L, RDW Std Deviation 53.4 H, RDW Coeff of Janiya 17.2 H, Plt Count 264, MPV 8.9, Immature Gran % (Auto) 0.600, Neut % (Auto) 68.3, Lymph % (Auto) 15.0 L, Bartholomew % (Auto) 13.0 H, Eos % (Auto) 2.8, Baso % (Auto) 0.3, Absolute Neuts (auto) 5.3, Absolute Lymphs (auto) 1.16, Nucleated RBC % 0 11/22/19 05:45: Sodium 138, Potassium 3.3 L, Chloride 93 L, Carbon Dioxide 39.0 H, Anion Gap 6, BUN 42 H, Creatinine 1.97 H, Estim Creat Clear Calc 38.10, Est GFR (MDRD) Af Amer 45 L, Est GFR (MDRD) Non-Af 37 L, BUN/Creatinine Ratio 21.3 H, Glucose 50 L, Calcium 8.9 11/22/19 05:45: PT 27.8 H, INR 2.6 11/22/19 07:56: POC Glucose 56 L 11/22/19 08:27: POC Glucose 85 11/22/19 11:41: POC Glucose 108 Current Medications Acetaminophen (Tylenol) 650 mg PO Q6H PRN PRN PRN Reason: Pain Score 1-10/10 Last Admin: 11/22/19 04:54 Dose: 650 mg Documented by: [facility] Last Admin: 11/22/19 08:29 Dose: 200 mg Documented by: Atorvastatin Calcium (Lipitor) 20 mg PO QHS [facility] Last Admin: 11/21/19 21:09 Dose: 20 mg Documented by: Benzonatate (Tessalon Perle) 100 mg PO TID PRN PRN PRN Reason: COUGH Last Admin: 11/21/19 21:08 Dose: 100 mg Documented by: Doxycycline Monohydrate (Doxycycline) 100 mg PO BID [facility] Stop: 11/22/19 22:00 Last Admin: 11/22/19 09:18 Dose: 100 mg Documented by: Sodium Chloride () 250 mls @ 15 mls/hr IV .[id number] PRN PRN Reason: Saline Flush Sodium Chloride () 250 mls @ 15 mls/hr IV .[id number] PRN PRN Reason: Additional IVPB Infusion Bumetanide 25 mg/ (Miscellaneous Information) 100 mls @ 4 mls/hr CONT INF .Q25H [facility] Last Admin: 11/22/19 11:41 Dose: 1 mg/hr, 4 mls/hr Documented by: Insulin Glargine (Lantus (Bk)) 25 units SC BID [facility] Last Admin: 11/22/19 09:18 Dose: 25 units Documented by: Insulin Human Lispro (Humalog Kwikpen ([facility])) 5 unit SC LUNCH [facility] Last Admin: 11/21/19 13:24 Dose: 5 u Documented by: Insulin Human Lispro (Humalog Kwikpen ([facility])) 7 unit SC BREAKFAST [facility] Last Admin: 11/22/19 08:28 Dose: Not Given Documented by: Insulin Human Lispro (Humalog Kwikpen ([facility])) 6 unit SC DINNER [facility] Last Admin: 11/21/19 18:04 Dose: Not Given Documented by: Metolazone (Zaroxolyn) 5 mg PO DAILY [facility] Last Admin: 11/22/19 09:18 Dose: 5 mg Documented by: Metoprolol Succinate (Toprol Xl (Beta Rakesh)) 50 mg PO DAILY [facility] Last Admin: 11/22/19 09:18 Dose: 50 mg Documented by: Multivit[facility] ([facility]) [facility] Last Admin: 11/22/19 08:29 Dose: 1 tablet Documented by: Potassium Chloride (K-Dur) 40 meq PO BIDCM [facility] Last Admin: 11/22/19 08:29 Dose: 40 meq Documented by: Sodium Chloride () 10 - 40 ml IV UD PRN PRN Reason: SALINE FLUSH Last Admin: 11/21/19 10:26 Dose: 10 ml Documented by: Tamsulosin HCl (Flomax) 0.4 mg PO DAILY [facility] Last Admin: 11/22/19 09:18 Dose: 0.4 mg Documented by: STROKE Vital Signs/Narrative: Vital Signs Temp Pulse Resp BP Pulse Ox 11/22/19 09:18 66 08/12/20 09:00 98.6 F 65 20 H 122/51 H 96 Medical Necessity - Tobacco Use Smoking Status: Never smoker Assessment/Plan All Active Problems (Last Updated 10/30/19 @ 07:[address] Ade Finn MD) Acute on chronic congestive heart failure (Acute) Anasarca (Acute) Supratherapeutic INR (Acute) Hyperkalemia (Acute) 1. Acute on chronic diastolic CHF, complicated by pulmonary HTN - last echo 05/01 EF 60%. Good output with bumex drip. Continue diuresis as long as kidney function tolerates this. Cardiology following. 2. Hx aflutter, pAfib - Rate stable. Resume coumadin. inr in AM. Also hx NSVT 3. CKDIII- stable. trend. Pt of [facility]. 4. Hx VSD/PDA - repaired PDA during childhood, VSD early adulthood. 5. 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 Continue lantus, TID insulin, SSI. Small decrease in lantus for hypoglycemia. 6. Chronic hypoxic resp failure - baseline 3lpm o2 7. LASHAWN - continue CPAP qhs. DVT ppx: coumadin This patient was seen by David Nolasco PA-C under the supervision of Dr. Thorne. <Christine Thorne - Last Filed: 11/22/19 14:32> Subjective: C/O pain in his legs and feet but breathing is much better although not baseline. Is making progress. Has lost some urine to incontinence. Cough is much less wet. Pt states that he no longer feels as if he is drowning Vitals/I&O's: Vital Signs Temp Pulse Resp BP Pulse Ox 98.6 F 66 20 H 122/51 H 96 11/22/19 09:00 11/22/19 09:18 11/22/19 09:00 11/22/19 09:00 11/22/19 09:00 Oxygen Flow Rate (L/min) 3 Oxygen Delivery Method Nasal Cannula Weight: 171 kg Body Mass Index (BMI) 57.9 Finger Stick Blood Glucose 479 Intake and Output for Last 24 Hours 11/20/19 11/21/19 11/22/19 23:59 23:59 23:59 Intake Total 1580.4 / 1580.4 697.06 / 697.06 Output Total 2900 / 2900 1700 / 1700 Balance -1319.6 / -1319.6 -1002.94 / -1002.94 General: Alert, Oriented x3, Cooperative, No apparent distress, Well developed, Well nourished, - - obese WM sitting up in a chair, at bedside, looks much more comfortable today and coughin much less Oral: Moist Mucosa, No Gingival or Mucosal Lesions/ Ulcerations Lungs: Diminished, Rales - BL bases to about 1/3 distal lung franco Cardiovascular: Regular rate, Normal S1, Normal S2, No murmurs, No Ectopic Activity, No rub noted, No Gallop, - - irreg rhythm Abdomen: Bowel Sounds Present, Soft, Non Tender, Non-Distended, Obese, - - body wall edema noted Extremities: No clubbing, No cyanosis, No Calf Tenderness, Edema - 3+ pitting edema BL LE up to thighs Skin: No rashes, No breakdown Musculoskeletal: No Tenderness to Palpation of Joints or Extremities, No Muscle Wasting Lymphatic: No Cervical, Supraclavicular, or Inguinal Adenopathy Neurological: Cranial nerves II-XII grossly intact, Neuro grossly intact Psych/Mental Status: Normal Affect, Appropriate, - - seems less frustrated today, Alert and oriented to time, place, person, mood and affect Laboratory Results 11/21/19 17:14: POC Glucose 97 11/21/19 21:08: POC Glucose 108 11/22/19 05:45: WBC 7.7, RBC 4.53 L, Hgb 11.6 L, Hct 38.9 L, MCV 85.9, MCH 25.6 L, MCHC 29.8 L, RDW Std Deviation 53.4 H, RDW Coeff of Janiya 17.2 H, Plt Count 264, MPV 8.9, Immature Gran % (Auto) 0.600, Neut % (Auto) 68.3, Lymph % (Auto) 15.0 L, Bartholomew % (Auto) 13.0 H, Eos % (Auto) 2.8, Baso % (Auto) 0.3, Absolute Neuts (auto) 5.3, Absolute Lymphs (auto) 1.16, Nucleated RBC % 0 11/22/19 05:45: Sodium 138, Potassium 3.3 L, Chloride 93 L, Carbon Dioxide 39.0 H, Anion Gap 6, BUN 42 H, Creatinine 1.97 H, Estim Creat Clear Calc 38.10, Est GFR (MDRD) Af Amer 45 L, Est GFR (MDRD) Non-Af 37 L, BUN/Creatinine Ratio 21.3 H, Glucose 50 L, Calcium 8.9 11/22/19 05:45: PT 27.8 H, INR 2.6 11/22/19 07:56: POC Glucose 56 L 11/22/19 08:27: POC Glucose 85 11/22/19 11:41: POC Glucose 108 Current Medications Acetaminophen (Tylenol) 650 mg PO Q6H PRN PRN PRN Reason: Pain Score 1-01/19 Last Admin: 11/22/19 04:54 Dose: 650 mg Documented by: [facility]) [facility] Last Admin: 11/22/19 08:29 Dose: 200 mg Documented by: Atorvastatin Calcium (Lipitor) 20 mg PO QHS [facility] Last Admin: 11/21/19 21:09 Dose: 20 mg Documented by: Benzonatate (Tessalon Perle) 100 mg PO TID PRN PRN PRN Reason: COUGH Last Admin: 11/21/19 21:08 Dose: 100 mg Documented by: Doxycycline Monohydrate (Doxycycline) 100 mg PO BID [facility] Stop: 11/22/19 22:00 Last Admin: 11/22/19 09:18 Dose: 100 mg Documented by: Sodium Chloride () 250 mls @ 15 mls/hr IV .[id number] PRN PRN Reason: Saline Flush Sodium Chloride () 250 mls @ 15 mls/hr IV .[id number] PRN PRN Reason: Additional IVPB Infusion Bumetanide 25 mg/ (Miscellaneous Information) 100 mls @ 4 mls/hr CONT INF .Q25H [facility] Last Admin: 11/22/19 11:41 Dose: 1 mg/hr, 4 mls/hr Documented by: Insulin Glargine (Lantus (Bkc)) 23 units SC BID [facility] Insulin Human Lispro (Humalog Kwikpen (Bkc)) 5 unit SC LUNCH [facility] Last Admin: 11/22/19 12:44 Dose: 5 u Documented by: Insulin Human Lispro (Humalog Kwikpen ([facility])) 7 unit SC BREAKFAST [facility] Last Admin: 11/22/19 08:28 Dose: Not Given Documented by: Insulin Human Lispro (Humalog Kwikpen ([facility])) 6 unit SC DINNER [facility] Last Admin: 11/21/19 18:04 Dose: Not Given Documented by: Metolazone (Zaroxolyn) 5 mg PO DAILY [facility] Last Admin: 11/22/19 09:18 Dose: 5 mg Documented by: Metoprolol Succinate (Toprol Xl (Beta Rakehs)) 50 mg PO DAILY [facility] Last Admin: 11/22/19 09:18 Dose: 50 mg Documented by: Multivitamins ([facility]itamin) [facility] Last Admin: 11/22/19 08:29 Dose: 1 tablet Documented by: Potassium Chloride (K-Dur) [facility] Last Admin: 11/22/19 08:29 Dose: 40 meq Documented by: Sodium Chloride () 10 - 40 ml IV UD PRN PRN Reason: SALINE FLUSH Last Admin: 11/21/19 10:26 Dose: 10 ml Documented by: Tamsulosin HCl (Flomax) 0.4 mg PO DAILY [facility] Last Admin: 11/22/19 09:18 Dose: 0.4 mg Documented by: Warfarin Sodium (Jantoven) 3 mg PO DAILY@1700 [facility] Assessment/Plan ASSESSMENT Acute Hypoxic on Chronic Hypoxic/Hypercapnic Respiratory Failure 2/2 AEHFrEF/Volume Overload -on 3 L O2 at baseline CKD -was HD dependent from Apr-July PAF Mild Anemia LASHAWN/OHS HFpEF/Diastolic dysfunction 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 RHC as outpt -decrease lantus to 15 u bid for now (home dose 25 BID), continue log with meals (BGT in 50's this am)
[2019-11-22] MEDS: Insulin Lispro 100 UNIT/ML INSULN.PEN SC (12:44)
[2019-11-22] MEDS: Benzonatate 100 MG Capsule PO ×2 (15:51→22:59)
[2019-11-22 16:41] LABS: Bedside Glucose 124 mg/dL (70-110)
[2019-11-22] MEDS: Insulin Lispro 100 UNIT/ML INSULN.PEN 6 UNIT SC (17:02)
[2019-11-22] MEDS: Atorvastatin Calcium 20 MG Tablet PO (21:02)
[2019-11-22 21:41] LABS: Bedside Glucose 114 mg/dL (70-110)
[2019-11-23] VITALS (11 sets, daily range): BP systolic 106–134; BP diastolic 54–69; PULSE 56–65; RESP 18; TEMP 36.6–36.7; O2SAT 93–97
[2019-11-23] MEDS: Acetaminophen 325 MG Tablet 650 MG PO ×2 (06:00→15:36)
[2019-11-23 06:02] LABS: Anion Gap 6 (5-15); BUN 48 mg/dL (7-18); Calcium,Total 8.8 mg/dL (8.5-10.1); Chloride 91 mmol/L (98-107); Creatinine, Serum 2.18 mg/dL (0.70-1.30); EST Glomerular Filtration Rate 33 mL/min (>60); Est Glom Filt Rate - Afr Amer 40 mL/min (>60); Estimated Creatinine Clearance 34.43 ml/min; Glucose 98 mg/dL (74-106); Potassium 3.3 mmol/L (3.5-5.1); Sodium Level 138 mmol/L (136-145)
[2019-11-23 06:05] LABS: Bedside Glucose 104 mg/dL (70-110)
[2019-11-23 06:22] LABS: International Normalized Ratio 2.3; Prothrombin Time (Protime)PT. 25.3 SECONDS (11.7-14.9)
[2019-11-23 07:15] LABS: Bedside Glucose 99 mg/dL (70-110)
[2019-11-23] MEDS: Insulin Lispro 100 UNIT/ML INSULN.PEN 7 UNIT SC (08:24)
[2019-11-23] MEDS: Multivitamins,Therapeutic Tablet 1 TABLET PO (08:33)
[2019-11-23] MEDS: Amiodarone 200 MG Tablet PO ×2 (08:35→16:25)
--- NOTE | 2019-11-23 08:37 | PCM.PN.CARD ---
Subjectve: Patient continues to slowly improve, with negative diuresis. No chest pain or anginal symptoms. Lower extremity edema mildly improved. Telemetry normal sinus rhythm with rare PVCs. Objective: Vital Signs Temp Pulse Resp BP Pulse Ox 98.0 F 60 18 133/69 H 96 11/23/19 08:32 11/23/19 08:32 11/23/19 08:32 11/23/19 08:32 11/23/19 08:32 Oxygen Flow Rate (L/min) 3 Oxygen Delivery Method Nasal Cannula Weight: 367 lb 8.169 oz Body Mass Index (BMI) 57.9 Finger Stick Blood Glucose 479 Intake and Output for Last 24 Hours 11/21/19 11/22/19 11/23/19 23:59 23:59 23:59 Intake Total 1580.4 / 1580.4 1545.99 / 1545.99 324.33 / 324.33 Output Total 2900 / 2900 1700 / 1700 Balance -1319.6 / -1319.6 -154.01 / -154.01 324.33 / 324.33 General: Awake, Alert, Oriented x 3 HEENT: PERRL, EOMI, Sclera Non Icteric Neck: Supple, Good ROM, No Lymph Node Enlargement Lungs: Diminished Champ Bases Cardiovascular: Regular Rhythm, Normal S2, No Rubs, No Gallops Murmur Murmur: Grade 2/6, Holosystolic Vascular: No Carotid Bruits, Normal Femoral Pulses, Normal Radial Pulses, Normal Dorsalis Pedal Pulse, Normal Posterior Tibial Pulses Abdomen: Bowel Sounds Present, Soft, Non Tender, No HSM, No Organomegaly Extremities: No Cyanosis, No Clubbing, No edema Neurological: No Focal Motor or Sensory Deficit 11/23/19 05:34: PT 25.3 H, INR 2.3 11/23/19 05:34: Sodium 138, Potassium 3.3 L, Chloride 91 L, Carbon Dioxide 41.0 H, Anion Gap 6, BUN 48 H, Creatinine 2.18 H, Est GFR (MDRD) Af Amer 40 L, Est GFR (MDRD) Non-Af 33 L, BUN/Creatinine Ratio 22.0 H, Glucose 98, Calcium 8.8 Rhythm: EKG: ECHO: Stress Test: Cardiac Cath: PCI: CT Surgery: Holter monitor: EPS: PPM: CXR: Chest CT Scan: Medical Necessity - Tobacco Use Smoking Status: Never smoker Assessment/Plan 1. Pulmonary hypertension: The patient has severe pulmonary pretension and status post VSD and PFO repair many years ago. Patient has now acute on chronic right-sided biventricular failure, and is currently on a Bumex drip. He is also on metolazone daily, and his EKG shows normal sinus rhythm with first-degree AV block. At this point I would not recommend diagnostic coronary catheterization at this time particularly because he is unable to lay down flat, as well as his complex cardiac nature. I would recommend continuing Bumex drip at current course and with a negative diuresis of approximately 1 L to 2 L/day. It is doubtful his p.o. diuretics are getting into his bloodstream given his intestinal edema as well. Would recommend IV Diuril 250 mg twice daily for 1 day and reassess on a daily basis. His most recent echocardiogram dated 11/21/2019 is as follows: he study was technically limited. Based upon the 2D echocardiographic and contrast enhanced images obtained there appears to be grossly normal left ventricular size, wall motion, and systolic function. The estimated ejection fraction is 55 %. Moderately dilated right ventricle. Moderate global right ventricular systolic dysfunction. Right ventricular systolic pressure estimated to be 71 mmHg compatible with severe pulmonary hypertension. Unable to assess diastolic dysfunction. Comment: The atrial septum and ventricular septum are not well visualized. In addition, recommend continuing Coumadin therapy to prevent DVT/pulmonary emboli. 2. Coronary artery disease: Patient denies any anginal symptoms at this time, and his most recent stress test in 2013 was negative for ischemia. We will hold off on catheterization at this time. 3. Continue 1500 cc fluid restriction, and Kendell bandages to his legs to facilitate venous return. 4. Patient has an overall poor prognosis given his severe pulmonary retention. Inpatient E&M: 19367 Subs Hosp L2
[2019-11-23] MEDS: Bumetanide 25 MG in CONTAINER,EMPTY 1 BAG 4 MG CONT INF (08:41)
[2019-11-23] MEDS: metOLazone 5 MG Tablet PO (09:38)
[2019-11-23] MEDS: Metoprolol(XL)Succ 50 MG Tablet PO (09:39)
[2019-11-23] MEDS: Tamsulosin HCl 0.4 MG Capsule PO (09:39)
[2019-11-23] MEDS: 0.9% Saline Lock 10 ML Syringe IV (10:57)
[2019-11-23 11:16] LABS: Bedside Glucose 108 mg/dL (70-110)
[2019-11-23] MEDS: Insulin Lispro 100 UNIT/ML INSULN.PEN SC (11:54)
--- NOTE | 2019-11-23 13:19 | PN_ITS ---
Patient Problems: Active and Suspected Problems (Last Updated 10/30/19 @ 07:[address] Ade Finn MD) Acute on chronic congestive heart failure (Acute) Anasarca (Acute) Subjective: Patient seen and examined. He states he feels much better shortness of breath is improved. Review of systems otherwise negative. Labs and vitals reviewed. He is on Bumex drip. Cardiology is on board. Vitals/I&O's: Vital Signs Temp Pulse Resp BP Pulse Ox 98.0 F 58 L 18 133/59 H 96 11/23/19 09:35 11/23/19 11:00 11/23/19 09:35 11/23/19 09:35 11/23/19 11:44 Oxygen Flow Rate (L/min) 3 Oxygen Delivery Method Nasal Cannula Weight: 367 lb 8.169 oz Body Mass Index (BMI) 57.9 Finger Stick Blood Glucose 479 Intake and Output for Last 24 Hours 11/21/19 11/22/19 11/23/19 23:59 23:59 23:59 Intake Total 1580.4 / 1580.4 1545.99 / 1545.99 775.06 / 775.06 Output Total 2900 / 2900 1700 / 1700 200 / 200 Balance -1319.6 / -1319.6 -154.01 / -154.01 575.06 / 575.06 General: Alert, Oriented x3, Cooperative, No apparent distress, - - super morbid obesity HEENT: Atraumatic, PERRLA, EOMI, Normocephalic Oral: Moist Mucosa Neck: Supple, No JVD, Negative Carotid Bruits Lungs: - - decreased breath sounds bibasally, no wheezes or crackles.on 3L of oxygen by nasal canula Cardiovascular: Regular rate, Regular Rhythm, Normal S1, Normal S2, No murmurs Abdomen: Bowel Sounds Present, Soft, Non Tender, Non-Distended, No Hepato- splenomegaly Extremities: No edema, Capillary Refill Less than 3 Seconds Skin: No rashes, No breakdown Musculoskeletal: No Tenderness to Palpation of Joints or Extremities Lymphatic: No Cervical, Supraclavicular, or Inguinal Adenopathy Neurological: Cranial nerves II-XII grossly intact, Neuro grossly intact, Motor Exam 5/5 strength throughout Psych/Mental Status: Normal Affect, Appropriate, Alert and oriented to time, place, person, mood and affect Laboratory Results 11/22/19 16:00: POC Glucose 124 H 11/22/19 21:01: POC Glucose 114 H 11/23/19 05:34: PT 25.3 H, INR 2.3 11/23/19 05:34: Sodium 138, Potassium 3.3 L, Chloride 91 L, Carbon Dioxide 41.0 H, Anion Gap 6, BUN 48 H, Creatinine 2.18 H, Estim Creat Clear Calc 34.43, Est GFR (MDRD) Af Amer 40 L, Est GFR (MDRD) Non-Af 33 L, BUN/Creatinine Ratio 22.0 H , Glucose 98, Calcium 8.8 11/23/19 05:59: POC Glucose 104 11/23/19 07:11: POC Glucose 99 11/23/19 10:58: POC Glucose 108 Diagnostic Data Chest X-Ray 11/20/19 22:44 IMPRESSION: Worsening CHF. at 0030 Reported and signed by: Robbie Desouza MD Electronically Signed: Robbie Desouza MD at 0:28 EDT Tel , Service support , Current Medications Acetaminophen (Tylenol) 650 mg PO Q6H PRN PRN PRN Reason: Pain Score 1-10/10 Last Admin: 11/23/19 06:00 Dose: 650 mg Documented by: [facility] Last Admin: 11/23/19 08:35 Dose: 200 mg Documented by: Atorvastatin Calcium (Lipitor) 20 mg PO QHS [facility] Last Admin: 11/22/19 21:02 Dose: 20 mg Documented by: Benzonatate (Tessalon Perle) 100 mg PO TID PRN PRN PRN Reason: COUGH Last Admin: 11/22/19 22:59 Dose: 100 mg Documented by: Chlorothiazide Sodium (Diuril) 250 mg IV BID [facility] Stop: 11/24/19 10:00 Last Admin: 11/23/19 10:57 Dose: 250 mg Documented by: Sodium Chloride () 250 mls @ 15 mls/hr IV .[id number] PRN PRN Reason: Saline Flush Sodium Chloride () 250 mls @ 15 mls/hr IV .[id number] PRN PRN Reason: Additional IVPB Infusion Bumetanide 25 mg/ (Miscellaneous Information) 100 mls @ 4 mls/hr CONT INF .Q25H [facility] Last Admin: 11/23/19 08:41 Dose: 1 mg/hr, 4 mls/hr Documented by: Insulin Glargine (Lantus ([facility])) 15 units SC BID [facility] Last Admin: 11/23/19 09:39 Dose: 15 u Documented by: Insulin Human Lispro (Humalog Kwikpen ([facility])) 5 unit SC LUNCH [facility] Last Admin: 11/23/19 11:54 Dose: 5 u Documented by: Insulin Human Lispro (Humalog Kwikpen ([facility])) 7 unit SC BREAKFAST [facility] Last Admin: 11/23/19 08:24 Dose: 7 unit Documented by: Insulin Human Lispro (Humalog Kwikpen ([facility])) 6 unit SC DINNER [facility] Last Admin: 11/22/19 17:02 Dose: 6 units Documented by: Metolazone (Zaroxolyn) 5 mg PO DAILY [facility] Last Admin: 11/23/19 09:38 Dose: 5 mg Documented by: Metoprolol Succinate (Toprol Xl (Beta Rakesh)) 50 mg PO DAILY [facility] Last Admin: 11/23/19 09:39 Dose: 50 mg Documented by: Multivitamins ([facility]amin) [facility] Last Admin: 11/23/19 08:33 Dose: 1 tablet Documented by: Potassium Chloride ([facility]Dur) [facility] Last Admin: 11/23/19 08:33 Dose: 40 meq Documented by: Sodium Chloride () 10 - 40 ml IV UD PRN PRN Reason: SALINE FLUSH Last Admin: 11/23/19 10:57 Dose: 10 ml Documented by: Tamsulosin HCl (Flomax) 0.4 mg PO DAILY [facility] Last Admin: 11/23/19 09:39 Dose: 0.4 mg Documented by: Warfarin Sodium (Jantoven) 3 mg PO DAILY@1700 [facility] Last Admin: 11/22/19 15:57 Dose: 3 mg Documented by: STROKE Vital Signs/Narrative: Vital Signs Temp Pulse Resp BP Pulse Ox 11/23/19 11:44 96 11/23/19 11:00 58 L 11/23/19 09:39 60 11/23/19 09:35 98.0 F 60 18 133/59 H 96 Medical Necessity - Tobacco Use Smoking Status: Never smoker Assessment/Plan All Active Problems (Last Updated 10/30/19 @ 07:[address] Ade Finn MD) Acute on chronic congestive heart failure (Acute) Anasarca (Acute) Supratherapeutic INR (Acute) Hyperkalemia (Acute) 1. Acute on chronic HFpEF * on bumex drip * complicated by pulmonary hypertension * cardiology on board * stable/ also on metolazone * 2. history of atrial flutter and afib * on coumadin. * rate controlled.on amiodarone and metoprolol * 3. CKD 3: stable. 4. History of VSD in childhood: * repaired in childhood, together with PDA * 5. Type 2 diabetes mellitus: on lantus. ISS. Lydia ACHS 6. LASHAWN: on CPAP qhs 7. Chronic hypoxic respiratory failure: due to heart failure. on 3L of oxygen chronically 8. Hypokalemia: K is 3.3 today. Will replace and monitor 9. Hypertension: on chlorothiazide. DVT prophylaxis: on coumadin Inpatient E&M: 29286 Subs Hosp L2
[2019-11-23] MEDS: Benzonatate 100 MG Capsule PO (14:16)
[2019-11-23] MEDS: Insulin Lispro 100 UNIT/ML INSULN.PEN 6 UNIT SC (16:30)
[2019-11-23 16:46] LABS: Bedside Glucose 119 mg/dL (70-110)
[2019-11-23] MEDS: Nystatin Powder 15gm Bottle 1 APPLIC TOPICAL ×2 (17:16→21:35)
[2019-11-23] MEDS: Atorvastatin Calcium 20 MG Tablet PO (21:34)
[2019-11-23 22:55] LABS: Bedside Glucose 137 mg/dL (70-110)
[2019-11-24] VITALS (13 sets, daily range): BP systolic 113–140; BP diastolic 45–69; PULSE 52–66; RESP 18; TEMP 36.3–36.7; O2SAT 94–96
[2019-11-24] MEDS: Acetaminophen 325 MG Tablet 650 MG PO ×3 (03:13→16:17)
[2019-11-24 05:56] LABS: Absolute Lymphocyte Count 0.81 X10^3/uL (0.83-4.51); Absolute Neutrophil Count 4.2 X10^3/uL (2.0-7.7); Basophil# 0.02 X10^3/uL; Basophil% 0.3 % (0-1); Eosinophil# 0.13 X10^3/uL; Eosinophils% 2.2 % (0-5); Hematocrit 37.7 % (40-54); Hemoglobin 11.3 g/dL (13.0-16.5); Lymphocyte # 0.81 X10^3/ul (4.0); Lymphocyte % 13.5 % (19-41); Mean Corpuscular Hgb 25.7 pg (27.0-32.0); Mean Corpuscular Volume 85.9 fL (80-94); Mean Platelet Vol. 8.7 fl (6.2-12.0); Monocyte# 0.83 X10^3/uL; Monocyte% 13.9 % (0-10); NRBC Flagged by Analyzer 0 % (0-5); Neutrophil # 4.18 X10^3/uL (2.7-7.7); Neutrophil % 69.9 % (47-70); Platelet Count 193 K/mm3 (150-450); RBC Distribution Width CV 17.3 % (11.6-14.6); RBC Distribution Width SD 53.9 fl (35.1-43.9); Red Blood Count 4.39 M/mm3 (4.6-6.2)
[2019-11-24 07:18] LABS: BUN 51 mg/dL (7-18); BUN/Creat Ratio 23.2 RATIO (10-20); Carbon Dioxide > 45.0 mmol/L (21.0-32.0); Chloride 85 mmol/L (98-107); EST Glomerular Filtration Rate 32 mL/min (>60); Est Glom Filt Rate - Afr Amer 39 mL/min (>60); Estimated Creatinine Clearance 34.11 ml/min; Glucose 101 mg/dL (74-106); Potassium 2.6 mmol/L (3.5-5.1); Sodium Level 137 mmol/L (136-145)
[2019-11-24] MEDS: Multivitamins,Therapeutic Tablet 1 TABLET PO (07:57)
[2019-11-24] MEDS: Amiodarone 200 MG Tablet PO ×2 (07:57→16:16)
[2019-11-24] MEDS: Insulin Lispro 100 UNIT/ML INSULN.PEN 7 UNIT SC (07:58)
[2019-11-24 08:16] LABS: Bedside Glucose 109 mg/dL (70-110)
[2019-11-24] MEDS: Potassium Chloride 10mEq/100mL 10 MEQ/100 ML IV.SOLN. 100 MEQ IV BOLUS ×4 (08:16→12:58)
[2019-11-24] MEDS: Nystatin Powder 15gm Bottle 1 APPLIC TOPICAL ×2 (09:28→21:07)
[2019-11-24] MEDS: 0.9% Saline Lock 10 ML Syringe IV (09:28)
[2019-11-24] MEDS: Menthol/Lanolin/Calamine/Znox 113 GM Tube 1 APPLIC TOPICAL ×2 (09:28→21:04)
[2019-11-24] MEDS: metOLazone 5 MG Tablet PO (09:29)
[2019-11-24] MEDS: Tamsulosin HCl 0.4 MG Capsule PO (09:29)
[2019-11-24] MEDS: Benzonatate 100 MG Capsule PO ×2 (09:34→16:17)
[2019-11-24] MEDS: Bumetanide 25 MG in CONTAINER,EMPTY 1 BAG 4 MG CONT INF (10:17)
[2019-11-24] MEDS: Insulin Lispro 100 UNIT/ML INSULN.PEN SC (11:02)
--- NOTE | 2019-11-24 11:09 | CASEMGMT ---
Pt is currently on his home oxygen of 3liters at this time. H&P, facesheet and SANDY order faxed to [facility] at this time. Green sheet left on chart if pt goes home over the weekend to notify [facility] and fax d/c summ/instructions at that time. Angel MEJIA CM
[2019-11-24 11:21] LABS: Bedside Glucose 141 mg/dL (70-110)
[2019-11-24 11:21] LABS: Allen Test Positive; Base Excess 17 mmol/L (-2 to +2); Bicarbonate 41.3 mmol/L (22-26); Blood Gas Specimen Type ART; FI02 4; O2 Delivery Device Cannula; PO2 65 mmHG (75-100); SITE L Radial; SO2 92 % (95-99); Total Carbon Dioxide 43 mmol/L; pCO2 62.8 mmHg (35-45); pH 7.43 (7.35-7.45)
--- NOTE | 2019-11-24 11:44 | PCM.PN.CARD ---
Subjectve: Patient continues to slowly improve. Fairly decent diuresis with the addition of Diuril yesterday. Hypokalemia noted and being replaced both orally and IV. Telemetry showed normal sinus rhythm with rare PVC. Objective: Vital Signs Temp Pulse Resp BP Pulse Ox 98.0 F 54 L 18 129/60 H 96 11/24/19 09:26 11/24/19 09:42 11/24/19 09:26 11/24/19 09:42 11/24/19 09:26 Oxygen Flow Rate (L/min) 3 Oxygen Delivery Method Nasal Cannula Weight: 365 lb 8.423 oz Body Mass Index (BMI) 57.9 Finger Stick Blood Glucose 479 Intake and Output for Last 24 Hours 11/22/19 11/23/19 11/24/19 23:59 23:59 23:59 Intake Total 1545.99 / 1545.99 1215.06 / 1455.06 1240 / 1240 Output Total 1700 / 1700 3000 / 3700 4300 / 4300 Balance -154.01 / -154.01 -1784.94 / -2244.94 -3060 / -3060 General: Awake, Alert, Oriented x 3 HEENT: PERRL, EOMI, Sclera Non Icteric Neck: Supple, Good ROM, No Lymph Node Enlargement Lungs: Diminished Champ Bases Cardiovascular: Regular Rhythm, Normal S2, No Rubs, No Gallops Murmur Murmur: Grade 2/6, Holosystolic Vascular: No Carotid Bruits, Normal Femoral Pulses, Normal Radial Pulses, Normal Dorsalis Pedal Pulse, Normal Posterior Tibial Pulses Abdomen: Bowel Sounds Present, Soft, Non Tender, No HSM, No Organomegaly Extremities: No Cyanosis, No Clubbing, No edema Neurological: No Focal Motor or Sensory Deficit 11/24/19 05:40: WBC 6.0, RBC 4.39 L, Hgb 11.3 L, Hct 37.7 L, MCV 85.9, MCH 25.7 L, MCHC 30.0 L, Plt Count 193, MPV 8.7, Immature Gran % (Auto) 0.200, Neut % (Auto) 69.9, Lymph % (Auto) 13.5 L, Mcdonough % (Auto) 13.9 H, Eos % (Auto) 2.2, Baso % (Auto) 0.3, Absolute Neuts (auto) 4.2, Nucleated RBC % 0 11/24/19 05:40: Sodium 137, Potassium 2.6 L*, Chloride 85 L, Carbon Dioxide > 45.0 H*, Anion Gap TNP, BUN 51 H, Creatinine 2.20 H, Est GFR (MDRD) Af Amer 39 L, Est GFR (MDRD) Non-Af 32 L, BUN/Creatinine Ratio 23.2 H, Glucose 101, Calcium 9.0 11/24/19 11:15: pH 7.43, Bicarbonate Actual 41.3 H, Base Excess 17 H, O2 Saturation 92 L, ABG pCO2 62.8 H, ABG pO2 65 L, Gavin Test Positive Rhythm: EKG: ECHO: Stress Test: Cardiac Cath: PCI: CT Surgery: Holter monitor: EPS: PPM: CXR: Chest CT Scan: Medical Necessity - Tobacco Use Smoking Status: Never smoker Assessment/Plan 1. Pulmonary hypertension: The patient has severe pulmonary pretension and status post VSD and PFO repair many years ago. Patient has now acute on chronic right-sided as well as biventricular failure, and is currently on a Bumex drip. He is also on metolazone daily, and his EKG shows normal sinus rhythm with first-degree AV block. Patient received IV Diuril yesterday and today, with fairly decent diuresis. His bicarbonate is increasing to around 45 and his potassium is being replaced. At this point I would not recommend diagnostic coronary catheterization at this time particularly because he is unable to lay down flat, as well as his complex cardiac nature. I would recommend continuing Bumex drip at current course and with a negative diuresis of approximately 1 L to 2 L/day. It is doubtful his p.o. diuretics are getting into his bloodstream given his intestinal edema as well. Would recommend IV Diuril 250 mg twice daily for 1 day and reassess on a daily basis. We will do 1 more day of IV Diuril. His most recent echocardiogram dated 11/21/2019 is as follows: he study was technically limited. Based upon the 2D echocardiographic and contrast enhanced images obtained there appears to be grossly normal left ventricular size, wall motion, and systolic function. The estimated ejection fraction is 55 %. Moderately dilated right ventricle. Moderate global right ventricular systolic dysfunction. Right ventricular systolic pressure estimated to be 71 mmHg compatible with severe pulmonary hypertension. Unable to assess diastolic dysfunction. Comment: The atrial septum and ventricular septum are not well visualized. In addition, recommend continuing Coumadin therapy to prevent DVT/pulmonary emboli. Would recommend keeping his potassium above 4.0 and magnesium above 2.0. Patient states his dry weight is 314 pounds at the end of his dialysis, and is currently 357 pounds as of today. We will start the patient on Diamox 150 mg p.o. twice daily to improve his bicarbonate. 2. Coronary artery disease: Patient denies any anginal symptoms at this time, and his most recent stress test in 2013 was negative for ischemia. We will hold off on catheterization at this time. 3. Continue 1500 cc fluid restriction, and Kendell bandages to his legs to facilitate venous return. 4. Patient has an overall poor prognosis given his severe pulmonary hypertension. Inpatient E&M: 45745 Subs Hosp L2
--- NOTE | 2019-11-24 13:16 | PCM.PN.HOSP ---
Patient Problems: Active and Suspected Problems (Last Updated 10/30/19 @ 07:[address] Ade Finn MD) Acute on chronic congestive heart failure (Acute) Anasarca (Acute) Subjective: Patient seen and examined. He had no complaints. Review of systems otherwise negative. Shortness of breath has improved. Review of systems otherwise negative. Potassium low today at 2.6 Vitals/I&O's: Vital Signs Temp Pulse Resp BP Pulse Ox 98.0 F 59 L 18 129/60 H 96 11/24/19 09:26 11/24/19 11:02 11/24/19 09:26 11/24/19 09:42 11/24/19 09:26 Oxygen Flow Rate (L/min) 3 Oxygen Delivery Method Nasal Cannula Weight: 365 lb 8.423 oz Body Mass Index (BMI) 57.9 Finger Stick Blood Glucose 479 Intake and Output for Last 24 Hours 11/22/19 11/23/19 11/24/19 23:59 23:59 23:59 Intake Total 1545.99 / 1545.99 1215.06 / 1455.06 1340 / 1340 Output Total 1700 / 1700 3000 / 3700 4300 / 4300 Balance -154.01 / -154.01 -1784.94 / -2244.94 -2960 / -2960 General: Alert, Oriented x3, Cooperative, No apparent distress, - - super morbid obesity HEENT: Atraumatic, PERRLA, EOMI, Normocephalic Oral: Moist Mucosa Neck: Supple, No JVD, Negative Carotid Bruits Lungs: - - decreased breath sounds bibasally, no wheezes or crackles.on 3L of oxygen by nasal canula Cardiovascular: Regular rate, Regular Rhythm, Normal S1, Normal S2, No murmurs Abdomen: Bowel Sounds Present, Soft, Non Tender, Non-Distended, No Hepato-splenomegaly Extremities: No edema, Capillary Refill Less than 3 Seconds Skin: No rashes, No breakdown Musculoskeletal: No Tenderness to Palpation of Joints or Extremities Lymphatic: No Cervical, Supraclavicular, or Inguinal Adenopathy Neurological: Cranial nerves II-XII grossly intact, Neuro grossly intact, Motor Exam 5/5 strength throughout Psych/Mental Status: Normal Affect, Appropriate, Alert and oriented to time, place, person, mood and affect Laboratory Results 11/23/19 16:28: POC Glucose 119 H 11/23/19 21:22: POC Glucose 137 H 11/24/19 05:40: WBC 6.0, RBC 4.39 L, Hgb 11.3 L, Hct 37.7 L, MCV 85.9, MCH 25.7 L, MCHC 30.0 L, RDW Std Deviation 53.9 H, RDW Coeff of Janiya 17.3 H, Plt Count 193, MPV 8.7, Immature Gran % (Auto) 0.200, Neut % (Auto) 69.9, Lymph % (Auto) 13.5 L, Hartley % (Auto) 13.9 H, Eos % (Auto) 2.2, Baso % (Auto) 0.3, Absolute Neuts (auto) 4.2, Absolute Lymphs (auto) 0.81 L, Nucleated RBC % 0 11/24/19 05:40: Sodium 137, Potassium 2.6 L*, Chloride 85 L, Carbon Dioxide > 45.0 H*, Anion Gap TNP, BUN 51 H, Creatinine 2.20 H, Estim Creat Clear Calc 34.11, Est GFR (MDRD) Af Amer 39 L, Est GFR (MDRD) Non-Af 32 L, BUN/Creatinine Ratio 23.2 H, Glucose 101, Calcium 9.0 11/24/19 07:40: POC Glucose 109 11/24/19 11:00: POC Glucose 141 H 11/24/19 11:15: Specimen Type ART, Sample Site L Radial, pH 7.43, Bicarbonate Actual 41.3 H, Total CO2 43, Base Excess 17 H, O2 Saturation 92 L, O2 % 4, ABG pCO2 62.8 H, ABG pO2 65 L, Gavin Test Positive, O2 Delivery Device Cannula Current Medications Acetaminophen (Tylenol) 650 mg PO Q6H PRN PRN PRN Reason: Pain Score 1-10/10 Last Admin: 11/24/19 09:29 Dose: 650 mg Documented by: Acetazolamide (Diamox) 125 mg PO BID [facility] Last Admin: 11/24/19 07:57 Dose: 200 mg Documented by: Atorvastatin Calcium (Lipitor) 20 mg PO QHS [facility] Last Admin: 11/23/19 21:34 Dose: 20 mg Documented by: Benzonatate (Tessalon Perle) 100 mg PO TID PRN PRN PRN Reason: COUGH Last Admin: 11/24/19 09:34 Dose: 100 mg Documented by: Calamine/Phenol (Calmoseptine Ointment) 1 applic TOPICAL BID [facility]; Protocol Last Admin: 11/24/19 09:28 Dose: 1 applic Documented by: Sodium Chloride () 250 mls @ 15 mls/hr IV .[id number] PRN PRN Reason: Saline Flush Sodium Chloride () 250 mls @ 15 mls/hr IV .[id number] PRN PRN Reason: Additional IVPB Infusion Bumetanide 25 mg/ (Miscellaneous Information) 100 mls @ 4 mls/hr CONT INF .Q25H [facility] Last Admin: 11/24/19 10:17 Dose: 1 mg/hr, 4 mls/hr Documented by: Insulin Glargine (Lantus (Bkc)) 15 units SC BID [facility] Last Admin: 11/24/19 09:30 Dose: 15 u Documented by: Insulin Human Lispro (Humalog Kwikpen (Bkc)) 5 unit SC LUNCH [facility] Last Admin: 11/24/19 11:02 Dose: 5 u Documented by: Insulin Human Lispro (Humalog Kwikpen (Bkc)) 7 unit SC BREAKFAST [facility] Last Admin: 11/24/19 07:58 Dose: 7 unit Documented by: Insulin Human Lispro (Humalog Kwikpen (Bkc)) 6 unit SC DINNER [facility] Last Admin: 11/23/19 16:30 Dose: 6 units Documented by: Metolazone (Zaroxolyn) 5 mg PO DAILY [facility] Last Admin: 11/24/19 09:29 Dose: 5 mg Documented by: Metoprolol Succinate (Toprol Xl (Beta Rakesh)) 50 mg PO DAILY [facility] Last Admin: 11/24/19 09:42 Dose: Not Given Documented by: Multivitamins ([facility]ivitamin) [facility] Last Admin: 11/24/19 07:57 Dose: 1 tablet Documented by: Nystatin (Mycostatin Powder) 1 applic TOPICAL BID [facility]; Protocol Last Admin: 11/24/19 09:28 Dose: 1 applic Documented by: Potassium Chloride (K-Dur) [facility]q [facility] Last Admin: 11/24/19 07:58 Dose: 40 meq Documented by: Sodium Chloride () 10 - 40 ml IV UD PRN PRN Reason: SALINE FLUSH Last Admin: 11/24/19 09:28 Dose: 10 ml Documented by: Tamsulosin HCl (Flomax) 0.4 mg PO DAILY [facility] Last Admin: 11/24/19 09:29 Dose: 0.4 mg Documented by: Warfarin Sodium (Jantoven) 3 mg PO DAILY@1700 [facility] Last Admin: 11/23/19 16:25 Dose: 3 mg Documented by: STROKE Vital Signs/Narrative: Vital Signs Temp Pulse Resp BP Pulse Ox 11/24/19 11:02 59 L 11/24/19 09:42 54 L 129/60 H 11/24/19 09:26 98.0 F 54 L 18 129/60 H 96 Medical Necessity - Tobacco Use Smoking Status: Never smoker Assessment/Plan All Active Problems (Last Updated 10/30/19 @ 07:[address] Ade Finn MD) Acute on chronic congestive heart failure (Acute) Anasarca (Acute) Supratherapeutic INR (Acute) Hyperkalemia (Acute) 1. Acute on chronic HFpEF on bumex drip complicated by pulmonary hypertension cardiology on board stable also on metolazone cardiology recommends continued diuresis with aim of negative diuresis of 1-2L daily. Patient and now request nephrology consult as they think he will get better quickly with dialysis. Counseled the patient is diuresing adequately and is negative balance by about 6 L since admission. He still want nephrology consult. Will await nephrology recommendation. 2. history of atrial flutter and afib on coumadin. rate controlled.on amiodarone and metoprolol 3. hypokalemia: potassium is 2.6 today. Likely due to diuresis. Will check magnesium as well. 4. metabolic alkalosis: due to diuresis. Started on diamox to help with metabolic alkalosis. 5. CKD 3: stable. 6. History of VSD in childhood: repaired in childhood, together with PDA 7. Type 2 diabetes mellitus: on lantus. ISS. Acucchecks ACHS 8. LASHAWN: on CPAP qhs 9. Chronic hypoxic respiratory failure: due to heart failure. on 3L of oxygen chronically 10. Hypertension: on chlorothiazide. DVT prophylaxis: on coumadin Inpatient E&M: 12551 Subs Hosp L3
[2019-11-24 13:39] LABS: Magnesium 2.3 mg/dL (1.6-2.6)
--- NOTE | 2019-11-24 15:02 | CASEMGMT ---
This RN CM to room to discuss discharge plan with pt/ at this time. Pt states plans to return home with [facility] at discharge but pt/ are concerned about pt going home at this time and are asking about nephrology c/s, possible dialysis. Pt states he felt better when he was on dialysis. Dr. Serrano updated at this time, voices understanding. Green sheet on chart at this time. SStaten RN CM
[2019-11-24] MEDS: Insulin Lispro 100 UNIT/ML INSULN.PEN 6 UNIT SC (16:16)
[2019-11-24 16:41] LABS: Bedside Glucose 111 mg/dL (70-110)
[2019-11-24] MEDS: AcetaZOLAMIDE 250 MG Tablet 125 MG PO (21:05)
[2019-11-24] MEDS: Atorvastatin Calcium 20 MG Tablet PO (21:06)
[2019-11-24 21:36] LABS: Bedside Glucose 143 mg/dL (70-110)
[2019-11-25] VITALS (13 sets, daily range): BP systolic 124–144; BP diastolic 54–67; PULSE 55–76; RESP 16–20; TEMP 36.3–37.1; O2SAT 92–95
[2019-11-25] MEDS: Benzonatate 100 MG Capsule PO ×2 (03:21→12:52)
[2019-11-25 07:12] LABS: Absolute Lymphocyte Count 0.69 X10^3/uL (0.83-4.51); Basophil# 0.03 X10^3/uL; Basophil% 0.4 % (0-1); Eosinophil# 0.14 X10^3/uL; Eosinophils% 2.1 % (0-5); Hemoglobin 11.2 g/dL (13.0-16.5); Lymphocyte # 0.69 X10^3/ul (4.0); Lymphocyte % 10.2 % (19-41); Mean Corp Hgb Conc 30.3 g/dL (32-36); Mean Corpuscular Hgb 25.9 pg (27.0-32.0); Mean Corpuscular Volume 85.5 fL (80-94); Mean Platelet Vol. 8.9 fl (6.2-12.0); Monocyte# 0.89 X10^3/uL; Monocyte% 13.1 % (0-10); NRBC Flagged by Analyzer 0 % (0-5); Neutrophil # 5.02 X10^3/uL (2.7-7.7); Neutrophil % 74.1 % (47-70); Platelet Count 182 K/mm3 (150-450); RBC Distribution Width CV 17.3 % (11.6-14.6); RBC Distribution Width SD 54.3 fl (35.1-43.9); Red Blood Count 4.33 M/mm3 (4.6-6.2); White Blood Count 6.8 K/mm3 (4.4-11.0)
[2019-11-25 07:18] LABS: International Normalized Ratio 2.7; Prothrombin Time (Protime)PT. 28.5 SECONDS (11.7-14.9)
[2019-11-25 08:01] LABS: BUN 55 mg/dL (7-18); BUN/Creat Ratio 24.3 RATIO (10-20); Calcium,Total 9.2 mg/dL (8.5-10.1); Carbon Dioxide > 45.0 mmol/L (21.0-32.0); Chloride 83 mmol/L (98-107); Creatinine, Serum 2.26 mg/dL (0.70-1.30); EST Glomerular Filtration Rate 31 mL/min (>60); Est Glom Filt Rate - Afr Amer 38 mL/min (>60); Estimated Creatinine Clearance 33.21 ml/min; Glucose 108 mg/dL (74-106); Magnesium 2.4 mg/dL (1.6-2.6); Potassium 2.2 mmol/L (3.5-5.1); Sodium Level 138 mmol/L (136-145)
[2019-11-25] MEDS: Insulin Lispro 100 UNIT/ML INSULN.PEN 7 UNIT SC (08:28)
[2019-11-25 09:16] LABS: Bedside Glucose 133 mg/dL (70-110)
--- NOTE | 2019-11-25 09:47 | PN.CARD_ITS ---
Subjectve: Patient continues to improve on a daily basis, with fairly decent IV diuresis over the past 36 hours. His lower extremity edema has markedly improved although not back to complete normal. He also admits to improved abdominal girth and swelling. Hypokalemia noted and being replaced. Telemetry with normal sinus rhythm, no arrhythmias noted. Objective: Vital Signs Temp Pulse Resp BP Pulse Ox 97.9 F 59 L 16 124/55 H 92 11/25/19 07:20 11/25/19 07:20 11/25/19 07:20 11/25/19 07:20 11/25/19 07:20 Oxygen Flow Rate (L/min) 3 Oxygen Delivery Method Nasal Cannula Weight: 249 lb 9.012 oz Body Mass Index (BMI) 57.9 Finger Stick Blood Glucose 479 Intake and Output for Last 24 Hours 11/23/19 11/24/19 11/25/19 23:59 23:59 23:59 Intake Total 1215.06 / 1455.06 1794.8 / 1794.8 240 / 240 Output Total 3000 / 3700 7400 / 7400 2400 / 2400 Balance -1784.94 / -2244.94 -5605.2 / -5605.2 -2160 / -2160 General: Awake, Alert, Oriented x 3 HEENT: PERRL, EOMI, Sclera Non Icteric Neck: Supple, Good ROM, No Lymph Node Enlargement Lungs: Clear to auscultation Cardiovascular: Regular Rhythm, Normal S2, No Rubs, No Gallops Murmur Murmur: Grade 2/6, Holosystolic Vascular: No Carotid Bruits, Normal Femoral Pulses, Normal Radial Pulses, Normal Dorsalis Pedal Pulse, Normal Posterior Tibial Pulses Abdomen: Bowel Sounds Present, Soft, Non Tender, No HSM, No Organomegaly Extremities: No Cyanosis, No Clubbing, Bilateral Edema +1 Neurological: No Focal Motor or Sensory Deficit 11/24/19 05:40: Magnesium 2.3 11/24/19 11:15: pH 7.43, Bicarbonate Actual 41.3 H, Base Excess 17 H, O2 Saturation 92 L, ABG pCO2 62.8 H, ABG pO2 65 L, Gavin Test Positive 11/25/19 06:57: WBC 6.8, RBC 4.33 L, Hgb 11.2 L, Hct 37.0 L, MCV 85.5, MCH 25.9 L, MCHC 30.3 L, Plt Count 182, MPV 8.9, Immature Gran % (Auto) 0.100, Neut % (Auto) 74.1 H, Lymph % (Auto) 10.2 L, Traill % (Auto) 13.1 H, Eos % (Auto) 2.1, Baso % (Auto) 0.4, Absolute Neuts (auto) 5.0, Nucleated RBC % 0 11/25/19 06:57: Sodium 138, Potassium 2.2 L*, Chloride 83 L, Carbon Dioxide > 45.0 H*, Anion Gap TNP, BUN 55 H, Creatinine 2.26 H, Est GFR (MDRD) Af Amer 38 L , Est GFR (MDRD) Non-Af 31 L, BUN/Creatinine Ratio 24.3 H, Glucose 108 H, Calcium 9.2, Magnesium 2.4 11/25/19 06:57: PT 28.5 H, INR 2.7 Rhythm: EKG: ECHO: Stress Test: Cardiac Cath: PCI: CT Surgery: Holter monitor: EPS: PPM: CXR: Chest CT Scan: Medical Necessity - Tobacco Use Smoking Status: Never smoker Assessment/Plan 1. Pulmonary hypertension: The patient has severe pulmonary pretension and status post VSD and PFO repair many years ago. Patient has now acute on chronic right-sided as well as biventricular failure, and has been treated with a Bumex drip. He is also on metolazone daily, and his EKG shows normal sinus rhythm with first-degree AV block. Patient received IV Diuril yesterday and today, with fairly decent diuresis. His bicarbonate is increasing to around 45 and his potassium is being replaced. At this point I would not recommend diagnostic coronary catheterization at this time particularly because he is unable to lay down flat, as well as his complex cardiac nature. At this point I would discontinue the patient's Bumex drip given his elevated b icarbonate and chronic renal insufficiency. Recommend switching him to Bumex instead of torsemide, 2 mg p.o. twice daily. Recommend continuing his metolazone on a daily basis as well as his Diamox to relieve his bicarbonate load. Also recommend increasing his potassium to a maximum 100 mEq p.o. daily p.o. His magnesium is within normal limits. His most recent echocardiogram dated 11/21/2019 is as follows: he study was technically limited. Based upon the 2D echocardiographic and contrast enhanced images obtained there appears to be grossly normal left ventricular size, wall motion, and systolic function. The estimated ejection fraction is 55 %. Moderately dilated right ventricle. Moderate global right ventricular systolic dysfunction. Right ventricular systolic pressure estimated to be 71 mmHg compatible with severe pulmonary hypertension. Unable to assess diastolic dysfunction. Comment: The atrial septum and ventricular septum are not well visualized. In addition, recommend continuing Coumadin therapy to prevent DVT/pulmonary emboli. Would recommend keeping his potassium above 4.0 and magnesium above 2.0. Patient states his dry weight is 314 pounds at the end of his dialysis, and is currently 357 pounds as of today. We will start the patient on Diamox 150 mg p.o. twice daily to improve his bicarbonate. 2. Coronary artery disease: Patient denies any anginal symptoms at this time, and his most recent stress test in 2013 was negative for ischemia. We will hold off on catheterization at this time. 3. Continue 1500 cc fluid restriction, and Kendell bandages to his legs to facilitate venous return. 4. Patient has an overall poor prognosis given his severe pulmonary hypertension. Assuming he is tolerating his new diuretic regimen, patient may be plan for discharge in the next day or 2. Inpatient E&M: [id number] [facility] L2
[2019-11-25] MEDS: Metoprolol(XL)Succ 50 MG Tablet PO (10:15)
[2019-11-25] MEDS: Nystatin Powder 15gm Bottle 1 APPLIC TOPICAL ×2 (10:16→21:17)
[2019-11-25] MEDS: Multivitamins,Therapeutic Tablet 1 TABLET PO (10:16)
[2019-11-25] MEDS: Tamsulosin HCl 0.4 MG Capsule PO (10:16)
[2019-11-25] MEDS: Amiodarone 200 MG Tablet PO ×2 (10:16→17:36)
[2019-11-25] MEDS: metOLazone 5 MG Tablet PO (10:16)
[2019-11-25] MEDS: 0.9% Saline Lock 10 ML Syringe IV ×2 (10:17→13:35)
[2019-11-25] MEDS: AcetaZOLAMIDE 250 MG Tablet 125 MG PO ×2 (10:17→21:12)
[2019-11-25] MEDS: Potassium Chloride 10mEq/100mL 10 MEQ/100 ML IV.SOLN. 100 MEQ IV BOLUS ×7 (10:17→22:57)
[2019-11-25] MEDS: Menthol/Lanolin/Calamine/Znox 113 GM Tube 1 APPLIC TOPICAL ×2 (10:18→21:18)
[2019-11-25] MEDS: Bumetanide 2 MG Tablet PO ×2 (10:30→17:36)
[2019-11-25] MEDS: Acetaminophen 325 MG Tablet 650 MG PO (11:00)
[2019-11-25] MEDS: Insulin Lispro 100 UNIT/ML INSULN.PEN SC (11:06)
[2019-11-25 11:11] LABS: Bedside Glucose 152 mg/dL (70-110)
--- NOTE | 2019-11-25 13:40 | PCM.PN.HOSP ---
Patient Problems: Active and Suspected Problems (Last Updated 10/30/19 @ 07:[address] Ade Finn MD) Acute on chronic congestive heart failure (Acute) Anasarca (Acute) Subjective: Patient seen and examined. He complains of coughing today. He does not feel his shortness of breath is improved. He denies any nausea vomiting or diarrhea. Review of symptoms otherwise negative. He is in cumulative negative balance by 13 L and his urine output since admission has been 20.35 L. Potassium is 2.2 today and bicarb is over 45. Vitals/I&O's: Vital Signs Temp Pulse Resp BP Pulse Ox 98.7 F 65 18 144/67 H 92 11/25/19 10:12 11/25/19 11:02 11/25/19 10:12 11/25/19 10:12 11/25/19 10:12 Oxygen Flow Rate (L/min) 3 Oxygen Delivery Method Nasal Cannula Weight: 249 lb 9.012 oz Body Mass Index (BMI) 57.9 Finger Stick Blood Glucose 479 Intake and Output for Last 24 Hours 11/23/19 11/24/19 11/25/19 23:59 23:59 23:59 Intake Total 1215.06 / 1455.06 1794.8 / 1794.8 1154.8 / 1154.8 Output Total 3000 / 3700 7400 / 7400 5350 / 5350 Balance -1784.94 / -2244.94 -5605.2 / -5605.2 -4195.2 / -4195.2 General: Alert, Oriented x3, Cooperative, No apparent distress, - - super morbid obesity HEENT: Atraumatic, PERRLA, EOMI, Normocephalic Oral: Moist Mucosa Neck: Supple, No JVD, Negative Carotid Bruits Lungs: - - decreased breath sounds bibasally, no wheezes or crackles.on 3L of oxygen by nasal canula Cardiovascular: Regular rate, Regular Rhythm, Normal S1, Normal S2, No murmurs Abdomen: Bowel Sounds Present, Soft, Non Tender, Non-Distended, No Hepato-splenomegaly Extremities: No edema, Capillary Refill Less than 3 Seconds Skin: No rashes, No breakdown Musculoskeletal: No Tenderness to Palpation of Joints or Extremities Lymphatic: No Cervical, Supraclavicular, or Inguinal Adenopathy Neurological: Cranial nerves II-XII grossly intact, Neuro grossly intact, Motor Exam 5/5 strength throughout Psych/Mental Status: Normal Affect, Appropriate, Alert and oriented to time, place, person, mood and affect Laboratory Results 11/24/19 16:13: POC Glucose 111 H 11/24/19 21:03: POC Glucose 143 H 11/25/19 06:57: WBC 6.8, RBC 4.33 L, Hgb 11.2 L, Hct 37.0 L, MCV 85.5, MCH 25.9 L, MCHC 30.3 L, RDW Std Deviation 54.3 H, RDW Coeff of Janiya 17.3 H, Plt Count 182, MPV 8.9, Immature Gran % (Auto) 0.100, Neut % (Auto) 74.1 H, Lymph % (Auto) 10.2 L, Cloud % (Auto) 13.1 H, Eos % (Auto) 2.1, Baso % (Auto) 0.4, Absolute Neuts (auto) 5.0, Absolute Lymphs (auto) 0.69 L, Nucleated RBC % 0 11/25/19 06:57: Sodium 138, Potassium 2.2 L*, Chloride 83 L, Carbon Dioxide > 45.0 H*, Anion Gap TNP, BUN 55 H, Creatinine 2.26 H, Estim Creat Clear Calc 33.21, Est GFR (MDRD) Af Amer 38 L, Est GFR (MDRD) Non-Af 31 L, BUN/Creatinine Ratio 24.3 H, Glucose 108 H, Calcium 9.2, Magnesium 2.4 11/25/19 06:57: PT 28.5 H, INR 2.7 11/25/19 08:20: POC Glucose 133 H 11/25/19 11:02: POC Glucose 152 H Diagnostic Data Chest X-Ray 11/20/19 22:44 IMPRESSION: Worsening CHF. at 0030 Reported and signed by: Robbie Desouza MD Electronically Signed: Robbie Desouza MD at 0:28 EDT Tel , Service support , Current Medications Acetaminophen (Tylenol) 650 mg PO Q6H PRN PRN PRN Reason: Pain Score 1-1010 Last Admin: 11/25/19 11:00 Dose: 650 mg Documented by: Acetazolamide (Diamox) 125 mg PO BID [facility] Last Admin: 11/25/19 10:17 Dose: 125 mg Documented by: Amiodarone HCl (Cordarone) 200 mg PO BIDCM [facility] Last Admin: 11/25/19 10:16 Dose: 200 mg Documented by: Atorvastatin Calcium (Lipitor) 20 mg PO QHS [facility] Last Admin: 11/24/19 21:06 Dose: 20 mg Documented by: Benzonatate (Tessalon Perle) 100 mg PO TID PRN PRN PRN Reason: COUGH Last Admin: 11/25/19 12:52 Dose: 100 mg Documented by: Bumetanide (Bumex) 2 mg PO BIDLX [facility] Last Admin: 11/25/19 10:30 Dose: 2 mg Documented by: Calamine/Phenol (Calmoseptine Ointment) 1 applic TOPICAL BID [facility]; Protocol Last Admin: 11/25/19 10:18 Dose: 1 applic Documented by: Sodium Chloride () 250 mls @ 15 mls/hr IV .[id number] PRN PRN Reason: Saline Flush Sodium Chloride () 250 mls @ 15 mls/hr IV .[id number] PRN PRN Reason: Additional IVPB Infusion Insulin Glargine (Lantus (Bkc)) 15 units SC BID [facility] Last Admin: 11/25/19 11:06 Dose: 15 u Documented by: Insulin Human Lispro (Humalog Kwikpen (Bkc)) 5 unit SC LUNCH [facility] Last Admin: 11/25/19 11:06 Dose: 5 u Documented by: Insulin Human Lispro (Humalog Kwikpen (Bkc)) 7 unit SC BREAKFAST [facility] Last Admin: 11/25/19 08:28 Dose: 7 unit Documented by: Insulin Human Lispro (Humalog Kwikpen (Bkc)) 6 unit SC DINNER [facility] Last Admin: 11/24/19 16:16 Dose: 6 units Documented by: Metolazone (Zaroxolyn) 5 mg PO DAILY [facility] Last Admin: 11/25/19 10:16 Dose: 5 mg Documented by: Metoprolol Succinate (Toprol Xl (Beta Rakesh)) 50 mg PO DAILY [facility] Last Admin: 11/25/19 10:15 Dose: 50 mg Documented by: [facility]ivitamins ([facility]amin) [facility] Last Admin: 11/25/19 10:16 Dose: 1 tablet Documented by: Nystatin (Mycostatin Powder) 1 applic TOPICAL BID [facility]; Protocol Last Admin: 11/25/19 10:16 Dose: 1 applic Documented by: Potassium Chloride (K-Dur) [facility]q [facility] Sodium Chloride () 10 - 40 ml IV UD PRN PRN Reason: SALINE FLUSH Last Admin: 11/25/19 13:35 Dose: 10 ml Documented by: Tamsulosin HCl (Flomax) 0.4 mg PO DAILY [facility] Last Admin: 11/25/19 10:16 Dose: 0.4 mg Documented by: Warfarin Sodium (Jantoven) 3 mg PO DAILY@1700 [facility] Last Admin: 11/24/19 16:16 Dose: 3 mg Documented by: STROKE Vital Signs/Narrative: Vital Signs Temp Pulse Resp BP Pulse Ox 11/25/19 11:02 65 11/25/19 10:15 64 11/25/19 10:12 98.7 F 64 18 144/67 H 92 Medical Necessity - Tobacco Use Smoking Status: Never smoker Assessment/Plan All Active Problems (Last Updated 10/30/19 @ 07:[address] Ade Finn MD) Acute on chronic congestive heart failure (Acute) Anasarca (Acute) Supratherapeutic INR (Acute) Hyperkalemia (Acute) 1. Acute on chronic HFpEF Switch from Bumex drip to Bumex p.o. today by cardiology. Also on metolazone and acetazolamide to help with elevated bicarb. Cumulative negative balance by 13 L since admission. Nephrology consulted per patient's request as he states he did better in the past with dialysis. I did inform him that considering how well he was diuresing, it was unlikely he would be dialyzed. 2. history of atrial flutter and afib on coumadin. rate controlled.on amiodarone and metoprolol 3. hypokalemia: potassium is 2.2 today. Likely due to diuresis. Will replace aggressively. Magnesium within normal limits. 4. metabolic alkalosis: due to diuresis. Bicarb is more than 45 today. On Diamox. 5. CKD 3: stable. 6. History of VSD in childhood: repaired in childhood, together with PDA 7. Type 2 diabetes mellitus: on lantus. ISS. Acdesiree ACHS 8. LASHAWN: on CPAP qhs 9. Chronic hypoxic respiratory failure: due to heart failure. on 3L of oxygen chronically 10. Hypertension: on chlorothiazide. DVT prophylaxis: on coumadin. INR is 2.7 Inpatient E&M: [id number] [facility] L3
--- NOTE | 2019-11-25 16:49 | PCM.CONS.R ---
Consultation - Renal PCP/ Referring MD: Requesting physician: [] Primary care physician: Dr. Francisco Alcazar MD - History of Present Illness History of Present Illness: The patient is a 59 year old M PMH of CHF, CKD stage 3, morbid obesity, DM, HTN. Pt was admitted for worsening SOB and legs edema Pt was admitted with CHF exacerbation. Pt was diuresed initially with bumex drip then switched today to oral diuretics Pt is now on oral Bumex + metolazone + diamox . Pt responded well to diuretics with improvement in weight , edema and breathing. currently on [facility] Renal team was consulted to help CKD management in CHF patient on 3 diuretics No NSAIDs use. denied LUTs No diarrhea ROS: 12 systems review is negative except some SOB and edema but both are better [] - Allergies Allergies: Allergies albuterol Adverse Reaction (Verified 11/20/19 19:52) NEEDS FOLLOW-UP increased heart rate. amoxicillin trihydrate [From Augmentin] Adverse Reaction (Verified 11/20/19 19:52) Diarrhea indomethacin [From Indocin] Adverse Reaction (Verified 11/20/19 19:52) Nausea potassium clavulanate [From Augmentin] Adverse Reaction (Verified 11/20/19 19:52) Diarrhea - Current Medications Current Medications: Current Medications Acetaminophen (Tylenol) 650 mg PO Q6H PRN PRN PRN Reason: Pain Score 1-10/10 Last Admin: 11/25/19 11:00 Dose: 650 mg Documented by: Acetazolamide (Diamox) 125 mg PO BID [facility] Last Admin: 11/25/19 10:17 Dose: 125 mg Documented by: Amiodarone HCl (Cordarone) 200 mg PO BIDCM [facility] Last Admin: 11/25/19 10:16 Dose: 200 mg Documented by: Atorvastatin Calcium (Lipitor) 20 mg PO QHS [facility] Last Admin: 11/24/19 21:06 Dose: 20 mg Documented by: Benzonatate (Tessalon Perle) 100 mg PO TID PRN PRN PRN Reason: COUGH Last Admin: 11/25/19 12:52 Dose: 100 mg Documented by: Bumetanide (Bumex) 2 mg PO BIDLX [facility] Last Admin: 11/25/19 10:30 Dose: 2 mg Documented by: Calamine/Phenol (Calmoseptine Ointment) 1 applic TOPICAL BID [facility]; Protocol Last Admin: 11/25/19 10:18 Dose: 1 applic Documented by: Sodium Chloride () 250 mls @ 15 mls/hr IV .[id number] PRN PRN Reason: Saline Flush Sodium Chloride () 250 mls @ 15 mls/hr IV .[id number] PRN PRN Reason: Additional IVPB Infusion Insulin Glargine (Lantus (Bkc)) 15 units SC BID [facility] Last Admin: 11/25/19 11:06 Dose: 15 u Documented by: Insulin Human Lispro (Humalog Kwikpen ([facility])) 5 unit SC LUNCH [facility] Last Admin: 11/25/19 11:06 Dose: 5 u Documented by: Insulin Human Lispro (Humalog Kwikpen ([facility])) 7 unit SC BREAKFAST [facility] Last Admin: 11/25/19 08:28 Dose: 7 unit Documented by: Insulin Human Lispro (Humalog Kwikpen ([facility])) 6 unit SC DINNER [facility] Last Admin: 11/24/19 16:16 Dose: 6 units Documented by: Metolazone (Zaroxolyn) 5 mg PO DAILY [facility] Last Admin: 11/25/19 10:16 Dose: 5 mg Documented by: Metoprolol Succinate (Toprol Xl (Beta Rakesh)) 50 mg PO DAILY [facility] Last Admin: 11/25/19 10:15 Dose: 50 mg Documented by: [facility]ivit[facility]) [address] [facility] Last Admin: 11/25/19 10:16 Dose: 1 tablet Documented by: Nystatin (Mycostatin Powder) 1 applic TOPICAL BID [facility]; Protocol Last Admin: 11/25/19 10:16 Dose: 1 applic Documented by: Potassium Chloride (K-Dur) [address] [facility] Sodium Chloride () 10 - 40 ml IV UD PRN PRN Reason: SALINE FLUSH Last Admin: 11/25/19 13:35 Dose: 10 ml Documented by: Tamsulosin HCl (Flomax) 0.4 mg PO DAILY [facility] Last Admin: 11/25/19 10:16 Dose: 0.4 mg Documented by: Warfarin Sodium (Jantoven) 3 mg PO DAILY@1700 [facility] Last Admin: 11/24/19 16:16 Dose: 3 mg Documented by: - Past Medical History Past Medical History (Chronic Problems): Chronic Problems (Last Updated 10/30/19 @ 07:[address] Ade Finn MD) Chronic kidney disease (CKD) (Chronic) CHF (congestive heart failure) (Chronic) Morbid obesity with BMI of 50.0-59.9, adult (Chronic) [facility] current use of anticoagulant (Chronic) History of right and left heart catheterization (Chronic 02/18/98) Done s/p VSD repair Per Dr. Sherif Espinoza @ [facility]: normal coronaries, mildly elevated PA pressures Paroxysmal SVT (supraventricular tachycardia) (Chronic) Atrial fibrillation (Chronic) History of atrial flutter (Chronic) Attempted atrial flutter ablation @ [facility] X 1 in 1997 (unsuccessful), followed by Atrial flutter ablations X [address] Paul at [facility] in Apr and October of 1998 Chronic diastolic congestive heart failure (Chronic) History of patent ductus arteriosus as a child (Chronic) Repaired at age 3 years, done @ [facility] Nonrheumatic tricuspid valve regurgitation (Chronic) Leaflet used for VSD repair in past History of ventricular septal defect repair (Chronic) 1977 (pt approx age 18) using Dacron patch, done at [facility] Hyperlipidemia (Chronic) Hypertension (Chronic) Diabetes mellitus, type II (Chronic) History of radiofrequency ablation procedure for cardiac arrhythmia (Chronic) Attempted atrial flutter ablation @ [facility] X 1 (unsuccessful), followed by Atrial flutter ablations X [address] Paul at [facility] in Apr and October of 1998 Pulmonary hypertension, moderate to severe (Chronic) PASP 69 mmHg in September 2013 LASHAWN (obstructive sleep apnea) (Chronic) - Past Surgical History Surgical History: - - VSD repair using tricuspid valve leaflet, PDA repair, HD access, RFA x 3. - Social History Smoking Status: Never smoker Alcohol: None Drugs: None - Family History Maternal Family History: Family History (Last Reviewed 10/28/19 @ 03:[address] Fredi Cobb DO) Mother Hypertension Diabetes CVA (cerebral vascular accident) Valvular heart disease Father CVA (cerebral vascular accident) Hypertension Hyperlipidemia History Items: Diabetes, High Cholesterol, Heart Disease, Hypertension, Stroke, - - Mother with history of concurrent valvular heart disease. Paternal Family History: Family History (Last Reviewed 10/28/19 @ 03:[address] Fredi Cobb DO) Mother Hypertension Diabetes CVA (cerebral vascular accident) Valvular heart disease Father CVA (cerebral vascular accident) Hypertension Hyperlipidemia History Items: High Cholesterol, Heart Disease, Hypertension, Stroke Patient Problems: Active and Suspected Problems (Last Updated 10/30/19 @ 07:[address] Ade Finn MD) Acute on chronic congestive heart failure (Acute) Anasarca (Acute) - Physical Exam Vitals/I&O's: Vital Signs Temp Pulse Resp BP Pulse Ox 98.1 F 55 L 18 126/54 H 94 11/25/19 15:05 11/25/19 15:05 11/25/19 15:05 11/25/19 15:05 11/25/19 15:05 Oxygen Flow Rate (L/min) 3 Oxygen Delivery Method Nasal Cannula Weight: 113.2 kg Body Mass Index (BMI) 57.9 Finger Stick Blood Glucose 479 Intake and Output for Last 24 Hours 11/23/19 11/24/19 11/25/19 23:59 23:59 23:59 Intake Total 1215.06 / 1455.06 1794.8 / 1794.8 1254.8 / 1254.8 Output Total 3000 / 3700 7400 / 7400 5350 / 5350 Balance -1784.94 / -2244.94 -5605.2 / -5605.2 -4095.2 / -4095.2 General: Alert, Oriented x3 HEENT: Atraumatic Oral: Moist Mucosa Neck: Supple, No JVD Lungs: - - decreased BS bilaterally. No crackless No wheezing Cardiovascular: Regular rate, Regular Rhythm, Normal S1, Normal S2 Abdomen: Bowel Sounds Present, Soft, Non Tender, Non-Distended Extremities: No clubbing, No cyanosis, Edema - + 2 edema of LE Musculoskeletal: No Tenderness to Palpation of Joints or Extremities Lymphatic: No Cervical, Supraclavicular, or Inguinal Adenopathy Neurological: Cranial nerves II-XII grossly intact, Neuro grossly intact Psych/Mental Status: Appropriate Laboratory Results 11/24/19 21:03: POC Glucose 143 H 11/25/19 06:57: WBC 6.8, RBC 4.33 L, Hgb 11.2 L, Hct 37.0 L, MCV 85.5, MCH 25.9 L, MCHC 30.3 L, RDW Std Deviation 54.3 H, RDW Coeff of Janiya 17.3 H, Plt Count 182, MPV 8.9, Immature Gran % (Auto) 0.100, Neut % (Auto) 74.1 H, Lymph % (Auto) 10.2 L, Kimble % (Auto) 13.1 H, Eos % (Auto) 2.1, Baso % (Auto) 0.4, Absolute Neuts (auto) 5.0, Absolute Lymphs (auto) 0.69 L, Nucleated RBC % 0 11/25/19 06:57: Sodium 138, Potassium 2.2 L*, Chloride 83 L, Carbon Dioxide > 45.0 H*, Anion Gap TNP, BUN 55 H, Creatinine 2.26 H, Estim Creat Clear Calc 33.21, Est GFR (MDRD) Af Amer 38 L, Est GFR (MDRD) Non-Af 31 L, BUN/Creatinine Ratio 24.3 H, Glucose 108 H, Calcium 9.2, Magnesium 2.4 11/25/19 06:57: PT 28.5 H, INR 2.7 11/25/19 08:20: POC Glucose 133 H 11/25/19 11:02: POC Glucose 152 H Current Medications Acetaminophen (Tylenol) 650 mg PO Q6H PRN PRN PRN Reason: Pain Score 1-10/10 Last Admin: 11/25/19 11:00 Dose: 650 mg Documented by: Acetazolamide (Diamox) 125 mg PO BID [facility] Last Admin: 11/25/19 10:17 Dose: 125 mg Documented by: Amiodarone HCl (Cordarone) 200 mg PO BIDCM [facility] Last Admin: 11/25/19 10:16 Dose: 200 mg Documented by: Atorvastatin Calcium (Lipitor) 20 mg PO QHS [facility] Last Admin: 11/24/19 21:06 Dose: 20 mg Documented by: Benzonatate (Tessalon Perle) 100 mg PO TID PRN PRN PRN Reason: COUGH Last Admin: 11/25/19 12:52 Dose: 100 mg Documented by: Bumetanide (Bumex) 2 mg PO BIDLX [facility] Last Admin: 11/25/19 10:30 Dose: 2 mg Documented by: Calamine/Phenol (Calmoseptine Ointment) 1 applic TOPICAL BID [facility]; Protocol Last Admin: 11/25/19 10:18 Dose: 1 applic Documented by: Sodium Chloride () 250 mls @ 15 mls/hr IV .[id number] PRN PRN Reason: Saline Flush Sodium Chloride () 250 mls @ 15 mls/hr IV .[id number] PRN PRN Reason: Additional IVPB Infusion Insulin Glargine (Lantus (Bkc)) 15 units SC BID [facility] Last Admin: 11/25/19 11:06 Dose: 15 u Documented by: Insulin Human Lispro (Humalog Kwikpen (Bkc)) 5 unit SC LUNCH [facility] Last Admin: 11/25/19 11:06 Dose: 5 u Documented by: Insulin Human Lispro (Humalog Kwikpen (Bkc)) 7 unit SC BREAKFAST [facility] Last Admin: 11/25/19 08:28 Dose: 7 unit Documented by: Insulin Human Lispro (Humalog Kwikpen (Bkc)) 6 unit SC DINNER [facility] Last Admin: 11/24/19 16:16 Dose: 6 units Documented by: Metolazone (Zaroxolyn) 5 mg PO DAILY [facility] Last Admin: 11/25/19 10:16 Dose: 5 mg Documented by: Metoprolol Succinate (Toprol Xl (Beta Rakesh)) 50 mg PO DAILY [facility] Last Admin: 11/25/19 10:15 Dose: 50 mg Documented by: Multivitamins ([facility]itamin) [address] [facility] Last Admin: 11/25/19 10:16 Dose: 1 tablet Documented by: Nystatin (Mycostatin Powder) 1 applic TOPICAL BID [facility]; Protocol Last Admin: 11/25/19 10:16 Dose: 1 applic Documented by: Potassium Chloride (K-Dur) [address] [facility] Sodium Chloride () 10 - 40 ml IV UD PRN PRN Reason: SALINE FLUSH Last Admin: 11/25/19 13:35 Dose: 10 ml Documented by: Tamsulosin HCl (Flomax) 0.4 mg PO DAILY [facility] Last Admin: 11/25/19 10:16 Dose: 0.4 mg Documented by: Warfarin Sodium (Jantoven) 3 mg PO DAILY@1700 [facility] Last Admin: 11/24/19 16:16 Dose: 3 mg Documented by: Assessment/Plan All Active Problems (Last Updated 10/30/19 @ 07:[address] 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 Patient received 100 mEq KCl so fat today continue BID replacement check Mg and replace as needs 3- contraction metabolic alkalosis. Ok with Diamox Might stop metolazone to reduce overdiuresis Monitor serum HC03 daily 4- CHF. better continue diuresis monitor RFP Daily weight accurate I/O Thank you for the consult Renal team will continue to follow Please call if any question at [phone] Justo Sauceda MD
[2019-11-25] MEDS: Insulin Lispro 100 UNIT/ML INSULN.PEN 6 UNIT SC (17:36)
[2019-11-25 17:41] LABS: Bedside Glucose 138 mg/dL (70-110)
[2019-11-25] MEDS: guaiFENesin 10 ML UDC (200MG/10ML) PO (18:42)
[2019-11-25 19:27] LABS: BUN 57 mg/dL (7-18); BUN/Creat Ratio 23.7 RATIO (10-20); Carbon Dioxide > 45.0 mmol/L (21.0-32.0); Chloride 82 mmol/L (98-107); Creatinine, Serum 2.41 mg/dL (0.70-1.30); EST Glomerular Filtration Rate 29 mL/min (>60); Est Glom Filt Rate - Afr Amer 35 mL/min (>60); Estimated Creatinine Clearance 31.14 ml/min; Glucose 152 mg/dL (74-106); Magnesium 2.2 mg/dL (1.6-2.6); Potassium 2.5 mmol/L (3.5-5.1); Sodium Level 136 mmol/L (136-145)
[2019-11-25] MEDS: Atorvastatin Calcium 20 MG Tablet PO (21:12)
[2019-11-25 21:51] LABS: Bedside Glucose 168 mg/dL (70-110)
[2019-11-26] VITALS (12 sets, daily range): BP systolic 107–127; BP diastolic 46–61; PULSE 52–62; RESP 12–18; TEMP 36.5–36.8; O2SAT 93–96
[2019-11-26] MEDS: Potassium Chloride 10mEq/100mL 10 MEQ/100 ML IV.SOLN. 100 MEQ IV BOLUS (00:03)
[2019-11-26 06:09] LABS: Absolute Lymphocyte Count 0.81 X10^3/uL (0.83-4.51); Absolute Neutrophil Count 5.3 X10^3/uL (2.0-7.7); Basophil# 0.02 X10^3/uL; Basophil% 0.3 % (0-1); Eosinophil# 0.24 X10^3/uL; Eosinophils% 3.2 % (0-5); Hematocrit 37.6 % (40-54); Hemoglobin 11.3 g/dL (13.0-16.5); Lymphocyte # 0.81 X10^3/ul (4.0); Lymphocyte % 10.7 % (19-41); Mean Corp Hgb Conc 30.1 g/dL (32-36); Mean Corpuscular Hgb 25.9 pg (27.0-32.0); Mean Corpuscular Volume 86.2 fL (80-94); Mean Platelet Vol. 9.6 fl (6.2-12.0); Monocyte# 1.17 X10^3/uL; Monocyte% 15.4 % (0-10); NRBC Flagged by Analyzer 0 % (0-5); Neutrophil # 5.32 X10^3/uL (2.7-7.7); Neutrophil % 70.1 % (47-70); Platelet Count 183 K/mm3 (150-450); RBC Distribution Width CV 17.5 % (11.6-14.6); RBC Distribution Width SD 54.8 fl (35.1-43.9); Red Blood Count 4.36 M/mm3 (4.6-6.2); White Blood Count 7.6 K/mm3 (4.4-11.0)
[2019-11-26 06:51] LABS: BUN 56 mg/dL (7-18); BUN/Creat Ratio 24.2 RATIO (10-20); Calcium,Total 9.3 mg/dL (8.5-10.1); Carbon Dioxide > 45.0 mmol/L (21.0-32.0); Chloride 81 mmol/L (98-107); Creatinine, Serum 2.31 mg/dL (0.70-1.30); EST Glomerular Filtration Rate 31 mL/min (>60); Est Glom Filt Rate - Afr Amer 37 mL/min (>60); Estimated Creatinine Clearance 32.49 ml/min; Glucose 115 mg/dL (74-106); Magnesium 2.7 mg/dL (1.6-2.6); Potassium 2.8 mmol/L (3.5-5.1); Sodium Level 138 mmol/L (136-145)
[2019-11-26] MEDS: Acetaminophen 325 MG Tablet 650 MG PO (07:46)
[2019-11-26] MEDS: guaiFENesin 10 ML UDC (200MG/10ML) PO ×3 (07:46→19:25)
[2019-11-26] MEDS: Metoprolol(XL)Succ 50 MG Tablet PO (08:37)
[2019-11-26] MEDS: Bumetanide 2 MG Tablet PO ×2 (08:37→16:59)
[2019-11-26] MEDS: Tamsulosin HCl 0.4 MG Capsule PO (08:37)
[2019-11-26] MEDS: AcetaZOLAMIDE 250 MG Tablet 125 MG PO ×2 (08:37→21:43)
[2019-11-26] MEDS: Multivitamins,Therapeutic Tablet 1 TABLET PO (08:37)
[2019-11-26] MEDS: Amiodarone 200 MG Tablet PO ×2 (08:37→16:59)
[2019-11-26] MEDS: Nystatin Powder 15gm Bottle 1 APPLIC TOPICAL ×2 (08:38→21:44)
[2019-11-26] MEDS: Insulin Lispro 100 UNIT/ML INSULN.PEN 7 UNIT SC (08:38)
[2019-11-26] MEDS: Menthol/Lanolin/Calamine/Znox 113 GM Tube 1 APPLIC TOPICAL ×2 (08:38→21:42)
[2019-11-26 09:30] LABS: Bedside Glucose 130 mg/dL (70-110)
--- NOTE | 2019-11-26 09:54 | PN.CARD_ITS ---
Subjectve: Patient seen and examined, continues to improve except for his cough. He reports his cough is improving but is becoming less intense but more frequent. No chest pain or anginal symptoms. Diuresis ongoing. Bumex drip discontinued yesterday. Objective: Vital Signs Temp Pulse Resp BP Pulse Ox 97.8 F 60 18 122/61 H 93 11/26/19 08:32 11/26/19 08:37 11/26/19 08:32 11/26/19 08:32 11/26/19 08:32 Oxygen Flow Rate (L/min) 3 Oxygen Delivery Method Nasal Cannula Weight: 342 lb 2.519 oz Body Mass Index (BMI) 57.9 Finger Stick Blood Glucose 479 Intake and Output for Last 24 Hours 11/24/19 11/25/19 11/26/19 23:59 23:59 23:59 Intake Total 1794.8 / 1794.8 2164.8 / 2164.8 240 / 240 Output Total 7400 / 7400 9300 / 9300 1999 / 1999 Balance -5605.2 / -5605.2 -7135.2 / -7135.2 -1760 / -1760 General: Awake, Alert, Oriented x 3 HEENT: PERRL, EOMI, Sclera Non Icteric Neck: Supple, Good ROM, No Lymph Node Enlargement Lungs: Clear to auscultation Cardiovascular: Regular Rhythm, Normal S2, No Rubs, No Gallops Murmur Murmur: Grade 2/6, Holosystolic Vascular: No Carotid Bruits, Normal Femoral Pulses, Normal Radial Pulses, Normal Dorsalis Pedal Pulse, Normal Posterior Tibial Pulses Abdomen: Bowel Sounds Present, Soft, Non Tender, No HSM, No Organomegaly Extremities: No Cyanosis, No Clubbing, No edema Neurological: No Focal Motor or Sensory Deficit 11/25/19 18:00: Sodium 136, Potassium 2.5 L*, Chloride 82 L, Carbon Dioxide > 45.0 H*, Anion Gap TNP, BUN 57 H, Creatinine 2.41 H, Est GFR (MDRD) Af Amer 35 L , Est GFR (MDRD) Non-Af 29 L, BUN/Creatinine Ratio 23.7 H, Glucose 152 H, Calcium 9.0, Magnesium 2.2 11/26/19 05:13: WBC 7.6, RBC 4.36 L, Hgb 11.3 L, Hct 37.6 L, MCV 86.2, MCH 25.9 L, MCHC 30.1 L, Plt Count 183, MPV 9.6, Immature Gran % (Auto) 0.300, Neut % (Auto) 70.1 H, Lymph % (Auto) 10.7 L, [place] % (Auto) 15.4 H, Eos % (Auto) 3.2, Baso % (Auto) 0.3, Absolute Neuts (auto) 5.3, Nucleated RBC % 0 11/26/19 05:13: Sodium 138, Potassium 2.8 L, Chloride 81 L, Carbon Dioxide > 45.0 H*, Anion Gap TNP, BUN 56 H, Creatinine 2.31 H, Est GFR (MDRD) Af Amer 37 L , Est GFR (MDRD) Non-Af 31 L, BUN/Creatinine Ratio 24.2 H, Glucose 115 H, Calcium 9.3, Magnesium 2.7 H Rhythm: EKG: ECHO: Stress Test: Cardiac Cath: PCI: CT Surgery: Holter monitor: EPS: PPM: CXR: Chest CT Scan: Medical Necessity - Tobacco Use Smoking Status: Never smoker Assessment/Plan 1. Pulmonary hypertension: The patient has severe pulmonary pretension and status post VSD and PFO repair many years ago. Patient has now acute on chronic right-sided as well as biventricular failure, and has been treated with a Bumex drip. He is also on metolazone daily, and his EKG shows normal sinus rhythm with first-degree AV block. Patient received IV Diuril yesterday and today, with fairly decent diuresis. His bicarbonate is increasing to around 45 and his potassium is being replaced. At this point I would not recommend diagnostic coronary catheterization at this time particularly because he is unable to lay down flat, as well as his complex cardiac nature. At this point I would discontinue the patient's Bumex drip given his elevated bicarbonate and chronic renal insufficiency. Recommend switching him to Bumex instead of torsemide, 2 mg p.o. twice daily. Recommend continuing his metolazone on a daily basis as well as his Diamox to relieve his bicarbonate load. Also recommend increasing his potassium to a maximum 100 mEq p.o. daily p.o. His magnesium is within normal limits. His most recent echocardiogram dated 11/21/2019 is as follows: he study was technically limited. Based upon the 2D echocardiographic and contrast enhanced images obtained there appears to be grossly normal left ventricular size, wall motion, and systolic function. The estimated ejection fraction is 55 %. Moderately dilated right ventricle. Moderate global right ventricular systolic dysfunction. Right ventricular systolic pressure estimated to be 71 mmHg compatible with severe pulmonary hypertension. Unable to assess diastolic dysfunction. Comment: The atrial septum and ventricular septum are not well visualized. In addition, recommend continuing Coumadin therapy to prevent DVT/pulmonary emboli. Would recommend keeping his potassium above 4.0 and magnesium above 2.0. Patient states his dry weight is 314 pounds at the end of his dialysis, and is currently 357 pounds as of today. We will start the patient on Diamox 150 mg p.o. twice daily to improve his bicarbonate. Appreciate renal's consult, and recommend reducing metolazone to 2.5 mg p.o. daily in order to avoid CHF exacerbation recidivism. 2. Coronary artery disease: Patient denies any anginal symptoms at this time, and his most recent stress test in 2013 was negative for ischemia. We will hold off on catheterization at this time. 3. Continue 1500 cc fluid restriction, and Kendell bandages to his legs to facilitate venous return. 4. Patient has an overall poor prognosis given his severe pulmonary hypertension. Assuming he is tolerating his new diuretic regimen, patient may be plan for discharge in the next day or 2. We will sign off, please call with any questions. He may follow-up with the [facility] cardiology. Inpatient E&M: [id number] [facility] [place] [facility] L2
--- NOTE | 2019-11-26 10:18 | PN_ITS ---
Patient Problems: Active and Suspected Problems (Last Updated 10/30/19 @ 07:[address] Ade Finn MD) Acute on chronic congestive heart failure (Acute) Anasarca (Acute) Subjective: Patient seen and examined. He states his cough is much better today his breathing is better. He has no other complaints. Review systems otherwise negative. He has remained hemodynamically stable. Potassium still remains low at 2.8. He is in cumulative negative balance by 17.76 L since admission. Vitals/I&O's: Vital Signs Temp Pulse Resp BP Pulse Ox 97.8 F 60 18 122/61 H 93 11/26/19 08:32 11/26/19 08:37 11/26/19 08:32 11/26/19 08:32 11/26/19 08:32 Oxygen Flow Rate (L/min) 3 Oxygen Delivery Method Nasal Cannula Weight: 342 lb 2.519 oz Body Mass Index (BMI) 57.9 Finger Stick Blood Glucose 479 Intake and Output for Last 24 Hours 11/24/19 11/25/19 11/26/19 23:59 23:59 23:59 Intake Total 1794.8 / 1794.8 2164.8 / 2164.8 240 / 240 Output Total 7400 / 7400 9300 / 9300 1999 / 1999 Balance -5605.2 / -5605.2 -7135.2 / -7135.2 -1760 / -1760 General: Alert, Oriented x3, Cooperative, No apparent distress, - - super morbid obesity HEENT: Atraumatic, PERRLA, EOMI, Normocephalic Oral: Moist Mucosa Neck: Supple, No JVD, Negative Carotid Bruits Lungs: - - decreased breath sounds bibasally, no wheezes or crackles.on 3L of oxygen by nasal canula Cardiovascular: Regular rate, Regular Rhythm, Normal S1, Normal S2, No murmurs Abdomen: Bowel Sounds Present, Soft, Non Tender, Non-Distended, No Hepato- splenomegaly Extremities: Capillary Refill Less than 3 Seconds. 2+ edema of both LEs Skin: No rashes, No breakdown Musculoskeletal: No Tenderness to Palpation of Joints or Extremities Lymphatic: No Cervical, Supraclavicular, or Inguinal Adenopathy Neurological: Cranial nerves II-XII grossly intact, Neuro grossly intact, Motor Exam 5/5 strength throughout Psych/Mental Status: Normal Affect, Appropriate, Alert and oriented to time, place, person, mood and affect Laboratory Results 11/25/19 11:02: POC Glucose 152 H 11/25/19 17:34: POC Glucose 138 H 11/25/19 18:00: Sodium 136, Potassium 2.5 L*, Chloride 82 L, Carbon Dioxide > 45.0 H*, Anion Gap TNP, BUN 57 H, Creatinine 2.41 H, Estim Creat Clear Calc 31.14, Est GFR (MDRD) Af Amer 35 L, Est GFR (MDRD) Non-Af 29 L, BUN/Creatinine Ratio 23.7 H, Glucose 152 H, Calcium 9.0, Magnesium 2.2 11/25/19 21:10: POC Glucose 168 H 11/26/19 05:13: WBC 7.6, RBC 4.36 L, Hgb 11.3 L, Hct 37.6 L, MCV 86.2, MCH 25.9 L, MCHC 30.1 L, RDW Std Deviation 54.8 H, RDW Coeff of Janiya 17.5 H, Plt Count 183, MPV 9.6, Immature Gran % (Auto) 0.300, Neut % (Auto) 70.1 H, Lymph % (Auto) 10.7 L, [place] % (Auto) 15.4 H, Eos % (Auto) 3.2, Baso % (Auto) 0.3, Absolute Neuts (auto) 5.3, Absolute Lymphs (auto) 0.81 L, Nucleated RBC % 0 11/26/19 05:13: Sodium 138, Potassium 2.8 L, Chloride 81 L, Carbon Dioxide > 45.0 H*, Anion Gap TNP, BUN 56 H, Creatinine 2.31 H, Estim Creat Clear Calc 32.49, Est GFR (MDRD) Af Amer 37 L, Est GFR (MDRD) Non-Af 31 L, BUN/Creatinine Ratio 24.2 H, Glucose 115 H, Calcium 9.3, Magnesium 2.7 H 11/26/19 08:19: POC Glucose 130 H Current Medications Acetaminophen (Tylenol) 650 mg PO Q6H PRN PRN PRN Reason: Pain Score 1-10/10 Last Admin: 11/26/19 07:46 Dose: 650 mg Documented by: Acetazolamide (Diamox) 125 mg PO BID [facility] Last Admin: 11/26/19 08:37 Dose: 125 mg Documented by: Amiodarone HCl (Cordarone) 200 mg PO BIDCM [facility] Last Admin: 11/26/19 08:37 Dose: 200 mg Documented by: Atorvastatin Calcium (Lipitor) 20 mg PO QHS [facility] Last Admin: 11/25/19 21:12 Dose: 20 mg Documented by: Benzonatate (Tessalon Perle) 100 mg PO TID PRN PRN PRN Reason: COUGH Last Admin: 11/25/19 12:52 Dose: 100 mg Documented by: Bumetanide (Bumex) 2 mg PO BIDLX [facility] Last Admin: 11/26/19 08:37 Dose: 2 mg Documented by: Calamine/Phenol (Calmoseptine Ointment) 1 applic TOPICAL BID [facility]; Protocol Last Admin: 11/26/19 08:38 Dose: 1 applic Documented by: Guaifenesin (Robitussin) 10 ml PO Q4H PRN PRN PRN Reason: COUGH Last Admin: 11/26/19 07:46 Dose: 10 ml Documented by: Sodium Chloride () 250 mls @ 15 mls/hr IV .[id number] PRN PRN Reason: Saline Flush Sodium Chloride () 250 mls @ 15 mls/hr IV .[id number] PRN PRN Reason: Additional IVPB Infusion Insulin Glargine (Lantus (Bkc)) 15 units SC BID [facility] Last Admin: 11/26/19 08:38 Dose: 15 u Documented by: Insulin Human Lispro (Humalog Kwikpen (Bkc)) 5 unit SC LUNCH [facility] Last Admin: 11/25/19 11:06 Dose: 5 u Documented by: Insulin Human Lispro (Humalog Kwikpen (Bkc)) 7 unit SC BREAKFAST [facility] Last Admin: 11/26/19 08:38 Dose: 7 unit Documented by: Insulin Human Lispro (Humalog Kwikpen (Bkc)) 6 unit SC DINNER [facility] Last Admin: 11/25/19 17:36 Dose: 6 units Documented by: Metolazone (Zaroxolyn) 2.5 mg PO DAILY [facility] Metoprolol Succinate (Toprol Xl (Beta Rakesh)) 50 mg PO DAILY [facility] Last Admin: 11/26/19 08:37 Dose: 50 mg Documented by: [facility]it[facility] ([facility]amin) [facility] Last Admin: 11/26/19 08:37 Dose: 1 tablet Documented by: Nystatin (Mycostatin Powder) 1 applic TOPICAL BID [facility]; Protocol Last Admin: 11/26/19 08:38 Dose: 1 applic Documented by: Potassium Chloride (K-Dur) [facility] Last Admin: 11/26/19 08:37 Dose: 40 meq Documented by: Sodium Chloride () 10 - 40 ml IV UD PRN PRN Reason: SALINE FLUSH Last Admin: 11/25/19 13:35 Dose: 10 ml Documented by: Tamsulosin HCl (Flomax) 0.4 mg PO DAILY [facility] Last Admin: 11/26/19 08:37 Dose: 0.4 mg Documented by: Warfarin Sodium (Jantoven) 3 mg PO DAILY@1700 [facility] Last Admin: 11/25/19 17:35 Dose: 3 mg Documented by: STROKE Vital Signs/Narrative: Vital Signs Temp Pulse Resp BP Pulse Ox 11/26/19 08:37 60 11/26/19 08:32 97.8 F 60 18 122/61 H 93 11/26/19 06:50 96 11/26/19 06:48 52 L Medical Necessity - Tobacco Use Smoking Status: Never smoker Assessment/Plan All Active Problems (Last Updated 10/30/19 @ 07:[address] Ade iFnn MD) Acute on chronic congestive heart failure (Acute) Anasarca (Acute) Supratherapeutic INR (Acute) Hyperkalemia (Acute) 1. Acute on chronic HFpEF * now on PO bumex and PO metolazone as well as PO acetazolamide * in cumulative negative balance by 17L since admission * nephrology on board- do not recommend any dialysis * 2D echo showed EF of 55% with grossly normal left ventricular size, wall motion and systolic function. Moderately dilated right ventricle with moderate right group ventricular systolic dysfunction. RVSP 71 mmHg compatible with severe pulmonary hypertension. 2. Severe pulmonary hypertension: As under echo in 1 above. 3. history of atrial flutter and afib * on coumadin. * rate controlled.on amiodarone and metoprolol * * 4. hypokalemia: potassium is 2.8 today. Likely due to diuresis. Will replace aggressively. Magnesium within normal limits. 5. metabolic alkalosis: due to diuresis. Bicarb remains more than 45 today. On Diamox. 6. CKD 3: stable. 7. History of VSD in childhood: * stable. repaired in childhood * 8. Type 2 diabetes mellitus: on lantus. ISS. Lydia ACHS 9. LASHAWN: on CPAP qhs 10. Chronic hypoxic respiratory failure: due to heart failure. on 3L of oxygen chronically 11. Hypertension: on chlorothiazide. DVT prophylaxis: on coumadin. INR is therapeutic
[2019-11-26] MEDS: Metolazone 2.5 MG Tablet PO (11:12)
[2019-11-26] MEDS: Insulin Lispro 100 UNIT/ML INSULN.PEN SC (12:16)
[2019-11-26 12:25] LABS: Bedside Glucose 101 mg/dL (70-110)
[2019-11-26 16:22] LABS: International Normalized Ratio 2.6; Prothrombin Time (Protime)PT. 27.7 SECONDS (11.7-14.9)
[2019-11-26] MEDS: Insulin Lispro 100 UNIT/ML INSULN.PEN 6 UNIT SC (16:58)
[2019-11-26 17:36] LABS: Bedside Glucose 134 mg/dL (70-110)
[2019-11-26] MEDS: Atorvastatin Calcium 20 MG Tablet PO (21:44)
[2019-11-26 22:11] LABS: Bedside Glucose 123 mg/dL (70-110)
[2019-11-27] VITALS (13 sets, daily range): BP systolic 105–116; BP diastolic 56–83; PULSE 50–61; RESP 17–18; TEMP 36.4–37.2; O2SAT 85–96
[2019-11-27] MEDS: Acetaminophen 325 MG Tablet 650 MG PO ×3 (01:13→16:15)
[2019-11-27 06:13] LABS: Absolute Lymphocyte Count 0.81 X10^3/uL (0.83-4.51); Absolute Neutrophil Count 4.7 X10^3/uL (2.0-7.7); Basophil# 0.02 X10^3/uL; Basophil% 0.3 % (0-1); Eosinophil# 0.24 X10^3/uL; Eosinophils% 3.5 % (0-5); Hematocrit 37.9 % (40-54); Hemoglobin 11.2 g/dL (13.0-16.5); Lymphocyte # 0.81 X10^3/ul (4.0); Lymphocyte % 11.8 % (19-41); Mean Corp Hgb Conc 29.6 g/dL (32-36); Mean Corpuscular Hgb 25.6 pg (27.0-32.0); Mean Corpuscular Volume 86.7 fL (80-94); Mean Platelet Vol. 9.1 fl (6.2-12.0); Monocyte# 1.07 X10^3/uL; Monocyte% 15.6 % (0-10); NRBC Flagged by Analyzer 0 % (0-5); Neutrophil # 4.69 X10^3/uL (2.7-7.7); Neutrophil % 68.5 % (47-70); Platelet Count 163 K/mm3 (150-450); RBC Distribution Width CV 17.6 % (11.6-14.6); RBC Distribution Width SD 55.6 fl (35.1-43.9); Red Blood Count 4.37 M/mm3 (4.6-6.2); White Blood Count 6.9 K/mm3 (4.4-11.0)
[2019-11-27 06:25] LABS: International Normalized Ratio 2.7; Prothrombin Time (Protime)PT. 28.5 SECONDS (11.7-14.9)
[2019-11-27 06:48] LABS: BUN 62 mg/dL (7-18); BUN/Creat Ratio 27.3 RATIO (10-20); Calcium,Total 9.4 mg/dL (8.5-10.1); Chloride 78 mmol/L (98-107); Creatinine, Serum 2.27 mg/dL (0.70-1.30); EST Glomerular Filtration Rate 31 mL/min (>60); Est Glom Filt Rate - Afr Amer 38 mL/min (>60); Estimated Creatinine Clearance 33.06 ml/min; Glucose 106 mg/dL (74-106); Magnesium 2.8 mg/dL (1.6-2.6); Sodium Level 138 mmol/L (136-145)
[2019-11-27 06:51] LABS: Carbon Dioxide > 45.0 mmol/L (21.0-32.0); Potassium 2.3 mmol/L (3.5-5.1)
--- NOTE | 2019-11-27 06:51 | NURSING ---
Dr. Alarcon paged regarding critical lab values.
[2019-11-27] MEDS: Potassium Chloride 10mEq/100mL 10 MEQ/100 ML IV.SOLN. 100 MEQ IV BOLUS ×4 (08:21→13:51)
[2019-11-27] MEDS: Insulin Lispro 100 UNIT/ML INSULN.PEN 7 UNIT SC (08:22)
[2019-11-27] MEDS: Amiodarone 200 MG Tablet PO ×2 (08:22→16:14)
[2019-11-27] MEDS: Multivitamins,Therapeutic Tablet 1 TABLET PO (08:23)
[2019-11-27] MEDS: Bumetanide 2 MG Tablet PO (08:25)
[2019-11-27] MEDS: Menthol/Lanolin/Calamine/Znox 113 GM Tube 1 APPLIC TOPICAL ×2 (08:25→21:04)
[2019-11-27] MEDS: AcetaZOLAMIDE 250 MG Tablet 125 MG PO ×2 (08:25→21:03)
[2019-11-27] MEDS: Tamsulosin HCl 0.4 MG Capsule PO (08:26)
[2019-11-27] MEDS: Nystatin Powder 15gm Bottle 1 APPLIC TOPICAL ×2 (08:28→21:04)
[2019-11-27] MEDS: Metoprolol(XL)Succ 50 MG Tablet PO (08:29)
[2019-11-27] MEDS: Metolazone 2.5 MG Tablet PO (08:29)
[2019-11-27] MEDS: 0.9% Saline Lock 10 ML Syringe IV (08:38)
[2019-11-27] MEDS: guaiFENesin 10 ML UDC (200MG/10ML) PO (08:42)
--- NOTE | 2019-11-27 09:49 | PN.RENAL_ITS ---
Patient Problems: Active and Suspected Problems (Last Updated 10/30/19 @ 07:[address] Ade Finn MD) Acute on chronic congestive heart failure (Acute) Anasarca (Acute) Subjective: Pt said his breathing is good No nausea No vomiting - Physical Exam Vitals/I&O's: Vital Signs Temp Pulse Resp BP Pulse Ox 97.6 F L 60 17 112/63 92 11/27/19 08:07 11/27/19 08:29 11/27/19 08:07 11/27/19 08:07 11/27/19 08:10 Oxygen Flow Rate (L/min) 3 Oxygen Delivery Method Nasal Cannula Weight: 155.2 kg Body Mass Index (BMI) 57.9 Finger Stick Blood Glucose 479 Intake and Output for Last 24 Hours 11/25/19 11/26/19 11/27/19 23:59 23:59 23:59 Intake Total 2164.8 / 2164.8 1570 / 1600 390 / 390 Output Total 9300 / 9300 4950 / 6550 2400 / 2400 Balance -7135.2 / -7135.2 -3380 / -4950 -2009 / General: Alert, Oriented x3 HEENT: Atraumatic Oral: Moist Mucosa Neck: Supple, No JVD Lungs: Clear to auscultation, Normal air movement, No rhonchi, No wheeze Cardiovascular: Regular rate, Regular Rhythm, Normal S1, Normal S2 Abdomen: Bowel Sounds Present, Soft, Non Tender, Non-Distended Extremities: No clubbing, Edema - +2 edema of LE Lymphatic: No Cervical, Supraclavicular, or Inguinal Adenopathy Neurological: Cranial nerves II-XII grossly intact, Neuro grossly intact Psych/Mental Status: Appropriate Laboratory Results 11/26/19 12:15: POC Glucose 101 11/26/19 15:51: PT 27.7 H, INR 2.6 11/26/19 16:56: POC Glucose 134 H 11/26/19 21:41: POC Glucose 123 H 11/27/19 05:50: WBC 6.9, RBC 4.37 L, Hgb 11.2 L, Hct 37.9 L, MCV 86.7, MCH 25.6 L, MCHC 29.6 L, RDW Std Deviation 55.6 H, RDW Coeff of Janiya 17.6 H, Plt Count 163, MPV 9.1, Immature Gran % (Auto) 0.300, Neut % (Auto) 68.5, Lymph % (Auto) 11.8 L, [place] % (Auto) 15.6 H, Eos % (Auto) 3.5, Baso % (Auto) 0.3, Absolute Neuts (auto) 4.7, Absolute Lymphs (auto) 0.81 L, Nucleated RBC % 0 11/27/19 05:50: Sodium 138, Potassium 2.3 L*, Chloride 78 L, Carbon Dioxide > 45 .0 H*, Anion Gap TNP, BUN 62 H, Creatinine 2.27 H, Estim Creat Clear Calc 33.06, Est GFR (MDRD) Af Amer 38 L, Est GFR (MDRD) Non-Af 31 L, BUN/Creatinine Ratio 27.3 H, Glucose 106, Calcium 9.4, Magnesium 2.8 H 11/27/19 05:50: PT 28.5 H, INR 2.7 Current Medications Acetaminophen (Tylenol) 650 mg PO Q6H PRN PRN PRN Reason: Pain Score 1-10/10 Last Admin: 11/27/19 08:42 Dose: 650 mg Documented by: Acetazolamide (Diamox) 125 mg PO BID [facility] Last Admin: 11/27/19 08:25 Dose: 125 mg Documented by: [facility] Last Admin: 11/27/19 08:22 Dose: 200 mg Documented by: Atorvastatin Calcium (Lipitor) 20 mg PO QHS [facility] Last Admin: 11/26/19 21:44 Dose: 20 mg Documented by: Benzonatate (Tessalon Perle) 100 mg PO TID PRN PRN PRN Reason: COUGH Last Admin: 11/25/19 12:52 Dose: 100 mg Documented by: Bumetanide (Bumex) 1 mg IM BID@1000,1800 [facility] Calamine/Phenol (Calmoseptine Ointment) 1 applic TOPICAL BID [facility]; Protocol Last Admin: 11/27/19 08:25 Dose: 1 applic Documented by: Guaifenesin (Robitussin) 10 ml PO Q4H PRN PRN PRN Reason: COUGH Last Admin: 11/27/19 08:42 Dose: 10 ml Documented by: Sodium Chloride () 250 mls @ 15 mls/hr IV .[id number] PRN PRN Reason: Saline Flush Sodium Chloride () 250 mls @ 15 mls/hr IV .[id number] PRN PRN Reason: Additional IVPB Infusion Potassium Chloride () 10 meq in 100 mls @ 100 mls/hr IV BOLUS Q1H [facility] Stop: 11/27/19 11:44 Last Admin: 11/27/19 08:21 Dose: 100 mls/hr Documented by: Insulin Glargine (Lantus (Bk)) 15 units SC BID [facility] Last Admin: 11/27/19 08:27 Dose: 15 u Documented by: Insulin Human Lispro (Humalog Kwikpen ([facility])) 5 unit SC LUNCH [facility] Last Admin: 11/26/19 12:16 Dose: 5 u Documented by: Insulin Human Lispro (Humalog Kwikpen ([facility])) 7 unit SC BREAKFAST [facility] Last Admin: 11/27/19 08:22 Dose: 7 unit Documented by: Insulin Human Lispro (Humalog Kwikpen ([facility])) 6 unit SC DINNER [facility] Last Admin: 11/26/19 16:58 Dose: 6 units Documented by: Metoprolol Succinate (Toprol Xl (Beta Rakesh)) 50 mg PO DAILY [facility] Last Admin: 11/27/19 08:29 Dose: 50 mg Documented by: Multivitamins ([facility]ivitamin) [facility] Last Admin: 11/27/19 08:23 Dose: 1 tablet Documented by: Nystatin (Mycostatin Powder) 1 applic TOPICAL BID [facility]; Protocol Last Admin: 11/27/19 08:28 Dose: 1 applic Documented by: Potassium Chloride (K-Dur) [facility] Last Admin: 11/26/19 17:00 Dose: 40 meq Documented by: Potassium Chloride (Potassium Chl Soln) 80 meq PO X1 ONE Stop: 11/27/19 09:23 Sodium Chloride () 10 - 40 ml IV UD PRN PRN Reason: SALINE FLUSH Last Admin: 11/27/19 08:38 Dose: 10 ml Documented by: Tamsulosin HCl (Flomax) 0.4 mg PO DAILY [facility] Last Admin: 11/27/19 08:26 Dose: 0.4 mg Documented by: Warfarin Sodium (Jantoven) 3 mg PO DAILY@1700 [facility] Last Admin: 11/26/19 17:00 Dose: 3 mg Documented by: Medical Necessity - Tobacco Use Smoking Status: Never smoker Assessment/Plan All Active Problems (Last Updated 10/30/19 @ 07:[address] 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 likely from from diuresis Please do continuous heart rhythm monitor Pt is set to receive 40 mg IV KCl this am along with 40 PO Will give the patient 80 meq PO more check Mg and replace as needs 3- contraction metabolic alkalosis. Ok with Diamox Might stop metolazone and decrease bumex to 1 mg PO BID to reduce overdiuresis Monitor serum HC03 daily 4- Edema likely from sever pulmonary HTN and right ventricle failure continue diuresis Keep O>I fluid restriction 1500 ml daily Na intake 1500 mg daily accurate I/O Renal team will continue to follow Please call if any question at [phone] Justo Sauceda MD
--- NOTE | 2019-11-27 11:14 | PN.CARD_ITS ---
Subjectve: Patient seen and examined this morning, and looks the best he has since I have been attending to him on this admission. Shortness of breath has improved as has abdominal girth. Patient still has hypokalemia and elevated bicarbonate. Objective: Vital Signs Temp Pulse Resp BP Pulse Ox 97.6 F L 60 17 112/63 92 11/27/19 08:07 11/27/19 08:29 11/27/19 08:07 11/27/19 08:07 11/27/19 08:10 Oxygen Flow Rate (L/min) 3 Oxygen Delivery Method Nasal Cannula Weight: 342 lb 2.519 oz Body Mass Index (BMI) 57.9 Finger Stick Blood Glucose 479 Intake and Output for Last 24 Hours 11/25/19 11/26/19 11/27/19 23:59 23:59 23:59 Intake Total 2164.8 / 2164.8 1570 / 1600 490 / 490 Output Total 9300 / 9300 4950 / 6550 2400 / 2400 Balance -7135.2 / -7135.2 -3380 / -4950 -1910 / -1910 General: Awake, Alert, Oriented x 3 HEENT: PERRL, EOMI, Sclera Non Icteric Neck: Supple, Good ROM, No Lymph Node Enlargement Lungs: Clear to auscultation Cardiovascular: Regular Rhythm, Normal S1, Normal S2, No Murmurs, No Rubs, No Gallops 11/26/19 15:51: PT 27.7 H, INR 2.6 11/27/19 05:50: WBC 6.9, RBC 4.37 L, Hgb 11.2 L, Hct 37.9 L, MCV 86.7, MCH 25.6 L, MCHC 29.6 L, Plt Count 163, MPV 9.1, Immature Gran % (Auto) 0.300, Neut % (Auto) 68.5, Lymph % (Auto) 11.8 L, Barnes % (Auto) 15.6 H, Eos % (Auto) 3.5, Baso % (Auto) 0.3, Absolute Neuts (auto) 4.7, Nucleated RBC % 0 11/27/19 05:50: Sodium 138, Potassium 2.3 L*, Chloride 78 L, Carbon Dioxide > 45.0 H*, Anion Gap TNP, BUN 62 H, Creatinine 2.27 H, Est GFR (MDRD) Af Amer 38 L , Est GFR (MDRD) Non-Af 31 L, BUN/Creatinine Ratio 27.3 H, Glucose 106, Calcium 9.4, Magnesium 2.8 H 11/27/19 05:50: PT 28.5 H, INR 2.7 Rhythm: EKG: ECHO: Stress Test: Cardiac Cath: PCI: CT Surgery: Holter monitor: EPS: PPM: CXR: Chest CT Scan: Medical Necessity - Tobacco Use Smoking Status: Never smoker Assessment/Plan 1. Pulmonary hypertension: The patient has severe pulmonary pretension and st atus post VSD and PFO repair many years ago. Patient has now acute on chronic right-sided as well as biventricular failure, and has been treated with a Bumex drip. He is also on metolazone daily, and his EKG shows normal sinus rhythm with first-degree AV block. Patient received IV Diuril yesterday and today, with fairly decent diuresis. His bicarbonate is increasing to around 45 and his potassium is being replaced. At this point I would not recommend diagnostic coronary catheterization at this time particularly because he is unable to lay down flat, as well as his complex cardiac nature. At this point I would discontinue the patient's Bumex drip given his elevated bicarbonate and chronic renal insufficiency. As we are approaching his dry weight, we will decrease his Bumex to 1 mg p.o. twice daily, and decrease his metolazone to 2.5 Wednesday and Wednesday. Would recommend continuing his Diamox however. I would not decrease his diuretics much more than this given his tendency for CHF exacerbation. He will need to live with permissive azotemia. Also recommend increasing his potassium to a maximum 100 mEq p.o. daily p.o. His magnesium is within normal limits. His most recent echocardiogram dated 11/21/2019 is as follows: he study was technically limited. Based upon the 2D echocardiographic and contrast enhanced images obtained there appears to be grossly normal left ventricular size, wall motion, and systolic function. The estimated ejection fraction is 55 %. Moderately dilated right ventricle. Moderate global right ventricular systolic dysfunction. Right ventricular systolic pressure estimated to be 71 mmHg compatible with severe pulmonary hypertension. Unable to assess diastolic dysfunction. Comment: The atrial septum and ventricular septum are not well visualized. In addition, recommend continuing Coumadin therapy to prevent DVT/pulmonary emboli. Would recommend keeping his potassium above 4.0 and magnesium above 2.0. Appreciate renal's consult, and recommend reducing metolazone to 2.5 mg p.o. daily in order to avoid CHF exacerbation recidivism. 2. Coronary artery disease: Patient denies any anginal symptoms at this time, and his most recent stress test in 2013 was negative for ischemia. We will hold off on catheterization at this time. 3. Continue 1500 cc fluid restriction, and Kendell bandages to his legs to facilitate venous return. 4. Patient has an overall poor prognosis given his severe pulmonary hypertension. Assuming he is tolerating his new diuretic regimen, patient may be plan for discharge in the next day or 2. We will sign off, please call with any questions. He may follow-up with the [facility]. Discussed with Dr. Corea. Inpatient E&M: 82207 Subs Hosp L2
--- NOTE | 2019-11-27 11:23 | PN_ITS ---
Patient Problems: Active and Suspected Problems (Last Updated 10/30/19 @ 07:[address] Ade Finn MD) Acute on chronic congestive heart failure (Acute) Anasarca (Acute) Subjective: Feels better today, he is back to his baseline oxygen use and states that his cough is getting better Vitals/I&O's: Vital Signs Temp Pulse Resp BP Pulse Ox 97.6 F L 60 17 112/63 92 11/27/19 08:07 11/27/19 08:29 11/27/19 08:07 11/27/19 08:07 11/27/19 08:10 Oxygen Flow Rate (L/min) 3 Oxygen Delivery Method Nasal Cannula Weight: 342 lb 2.519 oz Body Mass Index (BMI) 57.9 Finger Stick Blood Glucose 479 Intake and Output for Last 24 Hours 11/25/19 11/26/19 11/27/19 23:59 23:59 23:59 Intake Total 2164.8 / 2164.8 1570 / 1600 490 / 490 Output Total 9300 / 9300 4950 / 6550 2400 / 2400 Balance -7135.2 / -7135.2 -3380 / -4950 -1910 / -1910 General: Alert, Oriented x3, Cooperative, No apparent distress HEENT: Atraumatic, PERRLA, EOMI, Normocephalic Oral: Moist Mucosa Neck: Supple, No JVD Lungs: Clear to auscultation, Normal air movement, No rhonchi, No wheeze, No rales, Diminished Cardiovascular: Regular rate, Regular Rhythm, Normal S1, Normal S2, No murmurs Abdomen: Soft, Non Tender, Non-Distended, No Hepato-splenomegaly Extremities: Capillary Refill Less than 3 Seconds, Edema - 2+ pitting bilateral lower extremities Skin: No rashes, No breakdown Neurological: Neuro grossly intact, Sensory exam intact to light touch and pain Psych/Mental Status: Normal Affect, Appropriate Laboratory Results 11/26/19 12:15: POC Glucose 101 11/26/19 15:51: PT 27.7 H, INR 2.6 11/26/19 16:56: POC Glucose 134 H 11/26/19 21:41: POC Glucose 123 H 11/27/19 05:50: WBC 6.9, RBC 4.37 L, Hgb 11.2 L, Hct 37.9 L, MCV 86.7, MCH 25.6 L, MCHC 29.6 L, RDW Std Deviation 55.6 H, RDW Coeff of Janiya 17.6 H, Plt Count 163, MPV 9.1, Immature Gran % (Auto) 0.300, Neut % (Auto) 68.5, Lymph % (Auto) 11.8 L, Rutherford % (Auto) 15.6 H, Eos % (Auto) 3.5, Baso % (Auto) 0.3, Absolute Neuts (auto) 4.7, Absolute Lymphs (auto) 0.81 L, Nucleated RBC % 0 11/27/19 05:50: Sodium 138, Potassium 2.3 L*, Chloride 78 L, Carbon Dioxide > 45.0 H*, Anion Gap TNP, BUN 62 H, Creatinine 2.27 H, Estim Creat Clear Calc 33.06, Est GFR (MDRD) Af Amer 38 L, Est GFR (MDRD) Non-Af 31 L, BUN/Creatinine Ratio 27.3 H, Glucose 106, Calcium 9.4, Magnesium 2.8 H 11/27/19 05:50: PT 28.5 H, INR 2.7 Current Medications Acetaminophen (Tylenol) 650 mg PO Q6H PRN PRN PRN Reason: Pain Score 1-10/10 Last Admin: 11/27/19 08:42 Dose: 650 mg Documented by: Acetazolamide (Diamox) 125 mg PO BID [facility] Last Admin: 11/27/19 08:25 Dose: 125 mg Documented by: [facility] Last Admin: 11/27/19 08:22 Dose: 200 mg Documented by: Atorvastatin Calcium (Lipitor) 20 mg PO QHS [facility] Last Admin: 11/26/19 21:44 Dose: 20 mg Documented by: Benzonatate (Tessalon Perle) 100 mg PO TID PRN PRN PRN Reason: COUGH Last Admin: 11/25/19 12:52 Dose: 100 mg Documented by: Bumetanide (Bumex) 1 mg IM BID@1000,1800 [facility] Calamine/Phenol (Calmoseptine Ointment) 1 applic TOPICAL BID [facility]; Protocol Last Admin: 11/27/19 08:25 Dose: 1 applic Documented by: Guaifenesin (Robitussin) 10 ml PO Q4H PRN PRN PRN Reason: COUGH Last Admin: 11/27/19 08:42 Dose: 10 ml Documented by: Sodium Chloride () 250 mls @ 15 mls/hr IV .[id number] PRN PRN Reason: Saline Flush Sodium Chloride () 250 mls @ 15 mls/hr IV .[id number] PRN PRN Reason: Additional IVPB Infusion Potassium Chloride () 10 meq in 100 mls @ 100 mls/hr IV BOLUS Q1H [facility] Stop: 11/27/19 11:44 Last Admin: 11/27/19 10:46 Dose: 100 mls/hr Documented by: Insulin Glargine (Lantus (Bkc)) 15 units SC BID [facility] Last Admin: 11/27/19 08:27 Dose: 15 u Documented by: Insulin Human Lispro (Humalog Kwikpen (Bkc)) 5 unit SC LUNCH [facility] Last Admin: 11/26/19 12:16 Dose: 5 u Documented by: Insulin Human Lispro (Humalog Kwikpen (Bkc)) 7 unit SC BREAKFAST [facility] Last Admin: 11/27/19 08:22 Dose: 7 unit Documented by: Insulin Human Lispro (Humalog Kwikpen (Bkc)) 6 unit SC DINNER [facility] Last Admin: 11/26/19 16:58 Dose: 6 units Documented by: Metoprolol Succinate (Toprol Xl (Beta Rakesh)) 50 mg PO DAILY [facility] Last Admin: 11/27/19 08:29 Dose: 50 mg Documented by: Multivitamins ([facility]ivitamin) [facility] Last Admin: 11/27/19 08:23 Dose: 1 tablet Documented by: Nystatin (Mycostatin Powder) 1 applic TOPICAL BID [facility]; Protocol Last Admin: 11/27/19 08:28 Dose: 1 applic Documented by: Potassium Chloride (K-Dur) [facility] Last Admin: 11/27/19 10:46 Dose: 40 meq Documented by: Sodium Chloride () 10 - 40 ml IV UD PRN PRN Reason: SALINE FLUSH Last Admin: 11/27/19 08:38 Dose: 10 ml Documented by: Tamsulosin HCl (Flomax) 0.4 mg PO DAILY [facility] Last Admin: 11/27/19 08:26 Dose: 0.4 mg Documented by: Warfarin Sodium (Jantoven) 3 mg PO DAILY@1700 [facility] Last Admin: 11/26/19 17:00 Dose: 3 mg Documented by: STROKE Vital Signs/Narrative: Vital Signs Temp Pulse Resp BP Pulse Ox 11/27/19 08:29 60 11/27/19 08:10 92 11/27/19 08:07 97.6 F L 57 L 17 112/63 92 Medical Necessity - Tobacco Use Smoking Status: Never smoker Assessment/Plan All Active Problems (Last Updated 10/30/19 @ 07:[address] Ade Finn MD) Acute on chronic congestive heart failure (Acute) Anasarca (Acute) Supratherapeutic INR (Acute) Hyperkalemia (Acute) 1. Acute on chronic diastolic CHF with severe pulmonary hypertension and cor pulmonale/A. fib/history of VSD repaired/HTN/morbid obesity -Discussed with him that lifestyle modifications will need to be, necessity for him given his BMI of 52 -He is back down to his home oxygen level of 3 L -He has been diuresed over 21 L -He does have a contraction alkalosis with a bicarb of over 45, will decrease his Bumex to 1 mg twice daily and his metolazone 3 times a week. For the moment we will continue his Diamox -Echo with an EF of 55% and a RVSP of 71 mmHg -Continue with Coumadin INR is 2.7 -We will continue to replace his potassium, today it is 2.3, magnesium is normal. 2. CKD 3/hypokalemia and metabolic alkalosis -Hypokalemia metabolic alkalosis secondary to aggressive diuresis -Renal function is stable at baseline, appreciate nephrology input DVT: Coumadin Inpatient E&M: 67137 Subs Hosp L2
[2019-11-27] MEDS: Bumetanide 1 MG/4 ML Vial IM (11:59)
[2019-11-27] MEDS: Insulin Lispro 100 UNIT/ML INSULN.PEN SC (12:00)
[2019-11-27 12:41] LABS: Bedside Glucose 142 mg/dL (70-110)
[2019-11-27 12:59] LABS: BUN 65 mg/dL (7-18); BUN/Creat Ratio 26.1 RATIO (10-20); Calcium,Total 9.5 mg/dL (8.5-10.1); Carbon Dioxide > 45.0 mmol/L (21.0-32.0); Chloride 83 mmol/L (98-107); Creatinine, Serum 2.49 mg/dL (0.70-1.30); EST Glomerular Filtration Rate 28 mL/min (>60); Est Glom Filt Rate - Afr Amer 34 mL/min (>60); Estimated Creatinine Clearance 30.14 ml/min; Glucose 130 mg/dL (74-106); Potassium 3.3 mmol/L (3.5-5.1); Sodium Level 137 mmol/L (136-145)
[2019-11-27 15:31] LABS: Bedside Glucose 120 mg/dL (70-110)
[2019-11-27] MEDS: Insulin Lispro 100 UNIT/ML INSULN.PEN 6 UNIT SC (16:14)
[2019-11-27 16:41] LABS: Bedside Glucose 149 mg/dL (70-110)
[2019-11-27] MEDS: Bumetanide 0.5 MG Tablet 1 MG PO (18:55)
[2019-11-27] MEDS: Atorvastatin Calcium 20 MG Tablet PO (21:03)
[2019-11-27 22:41] LABS: Bedside Glucose 142 mg/dL (70-110)
[2019-11-28] VITALS (12 sets, daily range): BP systolic 119–134; BP diastolic 55–79; PULSE 49–64; RESP 17–20; TEMP 36.7–37.1; O2SAT 92–95
[2019-11-28] MEDS: guaiFENesin 10 ML UDC (200MG/10ML) PO ×2 (03:06→08:45)
[2019-11-28] MEDS: Acetaminophen 325 MG Tablet 650 MG PO (05:20)
--- NOTE | 2019-11-28 07:00 | RAD_ITS ---
STUDY: X-RAY CHEST REASON FOR EXAM: Male, 59 years old. cough and sob TECHNIQUE: Frontal and lateral views of the chest. COMPARISON: 11/20/2019 FINDINGS: The lungs are underexpanded. Small bilateral pleural effusions more prominent on the right side. There is moderate cardiac enlargement. Normal mediastinum and kelsie. There is prominence of the pulmonary hilar arteries and peripheral pulmonary arteries, consistent with congestive heart failure (CHF). Normal visualized aortic arch and descending thoracic aorta. Normal visualized thoracic spine. Normal visualized ribs, clavicles, and shoulders. There is no demonstrated abnormality of the visualized soft tissue structures of the upper abdomen. RAD/Chest PA and Lateral IMPRESSION: Congestive heart failure. There has been no significant change since the previous study. Electronically Signed: Tabitha Brown, at 8:22 EDT Tel , Service support ,
[2019-11-28 07:24] LABS: BUN 68 mg/dL (7-18); BUN/Creat Ratio 26.7 RATIO (10-20); Calcium,Total 9.2 mg/dL (8.5-10.1); Carbon Dioxide > 45.0 mmol/L (21.0-32.0); Chloride 84 mmol/L (98-107); Creatinine, Serum 2.55 mg/dL (0.70-1.30); EST Glomerular Filtration Rate 27 mL/min (>60); Est Glom Filt Rate - Afr Amer 33 mL/min (>60); Estimated Creatinine Clearance 29.43 ml/min; Glucose 108 mg/dL (74-106); Phosphorus 4.5 mg/dL (2.5-4.9); Potassium 2.6 mmol/L (3.5-5.1); Sodium Level 137 mmol/L (136-145)
[2019-11-28] MEDS: Insulin Lispro 100 UNIT/ML INSULN.PEN 7 UNIT SC (08:44)
[2019-11-28] MEDS: AcetaZOLAMIDE 250 MG Tablet 125 MG PO ×2 (08:45→21:08)
[2019-11-28] MEDS: Multivitamins,Therapeutic Tablet 1 TABLET PO (08:45)
[2019-11-28] MEDS: Amiodarone 200 MG Tablet PO ×2 (08:45→17:19)
[2019-11-28] MEDS: Bumetanide 0.5 MG Tablet 1 MG PO ×2 (08:45→17:19)
--- NOTE | 2019-11-28 08:45 | PN_ITS ---
Patient Problems: Active and Suspected Problems (Last Updated 10/30/19 @ 07:[address] Ade Finn MD) Acute on chronic congestive heart failure (Acute) Anasarca (Acute) Subjective: Still with a cough, and feeling tired today. Chest x-ray read is pending. Vitals/I&O's: Vital Signs Temp Pulse Resp BP Pulse Ox 98.0 F 49 L 20 H 122/67 H 93 11/28/19 03:00 11/28/19 06:45 11/28/19 03:00 11/28/19 03:00 11/28/19 07:27 Oxygen Flow Rate (L/min) [ 4 AMBULATION with Oxygen] Oxygen Flow Rate (L/min) 3 Oxygen Delivery Method Nasal Cannula Weight: 341 lb 0.882 oz Body Mass Index (BMI) 57.9 Finger Stick Blood Glucose 479 Intake and Output for Last 24 Hours 11/26/19 11/27/19 11/28/19 23:59 23:59 23:59 Intake Total 1570 / 1600 1900 / 1900 140 / 140 Output Total 4950 / 6550 5475 / 5475 1600 / 1600 Balance -3380 / -4950 -3575 / -3575 -1460 / -1460 General: Alert, Oriented x3, Cooperative, No apparent distress HEENT: Atraumatic, PERRLA, EOMI, Normocephalic Oral: Moist Mucosa Neck: Supple, No JVD Lungs: Clear to auscultation, Normal air movement, No rhonchi, No wheeze, No rales, Diminished Cardiovascular: Regular rate, Regular Rhythm, Normal S1, Normal S2, No murmurs Abdomen: Soft, Non Tender, Non-Distended, No Hepato-splenomegaly Extremities: Capillary Refill Less than 3 Seconds, Edema - 2+ pitting bilateral lower extremities Skin: Ulcer on the right anterior vasquez doing well, no signs of infection. Continue with local wound care Neurological: Neuro grossly intact, Sensory exam intact to light touch and pain Psych/Mental Status: Normal Affect, Appropriate Laboratory Results 11/27/19 08:06: POC Glucose 120 H 11/27/19 11:53: POC Glucose 142 H 11/27/19 12:20: Sodium 137, Potassium 3.3 L, Chloride 83 L, Carbon Dioxide > 45.0 H*, Anion Gap TNP, BUN 65 H, Creatinine 2.49 H, Estim Creat Clear Calc 30.14, Est GFR (MDRD) Af Amer 34 L, Est GFR (MDRD) Non-Af 28 L, BUN/Creatinine Ratio 26.1 H, Glucose 130 H, Calcium 9.5 11/27/19 16:12: POC Glucose 149 H 11/27/19 21:01: POC Glucose 142 H 11/28/19 06:08: Sodium 137, Potassium 2.6 L*, Chloride 84 L, Carbon Dioxide > 45.0 H*, Anion Gap TNP, BUN 68 H, Creatinine 2.55 H, Estim Creat Clear Calc 29.43, Est GFR (MDRD) Af Amer 33 L, Est GFR (MDRD) Non-Af 27 L, BUN/Creatinine Ratio 26.7 H, Glucose 108 H, Calcium 9.2, Phosphorus 4.5 Current Medications Acetaminophen (Tylenol) 650 mg PO Q6H PRN PRN PRN Reason: Pain Score 1-10/10 Last Admin: 11/28/19 05:20 Dose: 650 mg Documented by: Acetazolamide (Diamox) 125 mg PO BID [facility] Last Admin: 11/27/19 21:03 Dose: 125 mg Documented by: Amiodarone HCl (Cordarone) 200 mg PO BIDCM [facility] Last Admin: 11/27/19 16:14 Dose: 200 mg Documented by: Atorvastatin Calcium (Lipitor) 20 mg PO QHS [facility] Last Admin: 11/27/19 21:03 Dose: 20 mg Documented by: Benzonatate (Tessalon Perle) 100 mg PO TID PRN PRN PRN Reason: COUGH Last Admin: 11/25/19 12:52 Dose: 100 mg Documented by: Bumetanide (Bumex) 1 mg PO BIDLX [facility] Last Admin: 11/27/19 18:55 Dose: 1 mg Documented by: Calamine/Phenol (Calmoseptine Ointment) 1 applic TOPICAL BID [facility]; Protocol Last Admin: 11/27/19 21:04 Dose: 1 applic Documented by: Guaifenesin (Robitussin) 10 ml PO Q4H PRN PRN PRN Reason: COUGH Last Admin: 11/28/19 03:06 Dose: 10 ml Documented by: Sodium Chloride () 250 mls @ 15 mls/hr IV .[id number] PRN PRN Reason: Saline Flush Sodium Chloride () 250 mls @ 15 mls/hr IV .[id number] PRN PRN Reason: Additional IVPB Infusion Potassium Chloride () 10 meq in 100 mls @ 100 mls/hr IV BOLUS Q1H [facility] Stop: 11/28/19 14:46 Insulin Glargine (Lantus (Bkc)) 15 units SC BID [facility] Last Admin: 11/27/19 21:03 Dose: 15 u Documented by: Insulin Human Lispro (Humalog Kwikpen (Bk)) 5 unit SC LUNCH [facility] Last Admin: 11/27/19 12:00 Dose: 5 u Documented by: Insulin Human Lispro (Humalog Kwikpen (Bk)) 7 unit SC BREAKFAST [facility] Last Admin: 11/27/19 08:22 Dose: 7 unit Documented by: Insulin Human Lispro (Humalog Kwikpen (Bk)) 6 unit SC DINNER [facility] Last Admin: 11/27/19 16:14 Dose: 6 units Documented by: Metoprolol Succinate (Toprol Xl (Beta Rakesh)) 50 mg PO DAILY [facility] Last Admin: 11/27/19 08:29 Dose: 50 mg Documented by: [facility]ivit[facility] ([facility]amin) [facility] Last Admin: 11/27/19 08:23 Dose: 1 tablet Documented by: Nystatin (Mycostatin Powder) 1 applic TOPICAL BID [facility]; Protocol Last Admin: 11/27/19 21:04 Dose: 1 applic Documented by: Potassium Chloride (K-Dur) 60 [facility]q [facility] Sodium Chloride () 10 - 40 ml IV UD PRN PRN Reason: SALINE FLUSH Last Admin: 11/27/19 08:38 Dose: 10 ml Documented by: Tamsulosin HCl (Flomax) 0.4 mg PO DAILY [facility] Last Admin: 11/27/19 08:26 Dose: 0.4 mg Documented by: Warfarin Sodium (Jantoven) 3 mg PO DAILY@1700 [facility] Last Admin: 11/27/19 16:17 Dose: 3 mg Documented by: STROKE Vital Signs/Narrative: Vital Signs Pulse Pulse Ox 11/28/19 07:27 93 11/28/19 06:45 49 L Medical Necessity - Tobacco Use Smoking Status: Never smoker Assessment/Plan All Active Problems (Last Updated 10/30/19 @ 07:[address] Ade Finn MD) Acute on chronic congestive heart failure (Acute) Anasarca (Acute) Supratherapeutic INR (Acute) Hyperkalemia (Acute) 1. Acute on chronic diastolic CHF with severe pulmonary hypertension and cor pulmonale/A. fib/history of VSD repaired/HTN/morbid obesity -Discussed with him that lifestyle modifications will need to be, necessity for him given his BMI of 52 -He is back down to his home oxygen level of 3 L -He has been diuresed over 24 L -He does have a contraction alkalosis with a bicarb of over 45, his metolazone was made Wednesday and his Bumex was decreased to 1 mg p.o. twice daily. It is his alkalosis that is making his potassium difficult to manage. We will continue with Diamox to lower his bicarb -Echo with an EF of 55% and a RVSP of 71 mmHg -Continue with Coumadin INR is 2.7 -We will continue to replace his potassium, today it is 2.6, magnesium is normal. -Chest x-ray read is pending 2. CKD 3/hypokalemia and metabolic alkalosis -Hypokalemia metabolic alkalosis secondary to aggressive diuresis -Renal function is stable at baseline, appreciate nephrology input 3. IDDM 2 -We were able to significantly decrease the amount of insulin he received secondary to an appropriate diet -Continue with dietary education and teaching 4. BPH -Stable -Continue with Flomax DVT: Coumadin Inpatient E&M: [id number] Subs Hosp L2
[2019-11-28] MEDS: Menthol/Lanolin/Calamine/Znox 113 GM Tube 1 APPLIC TOPICAL ×2 (08:46→21:10)
[2019-11-28] MEDS: Tamsulosin HCl 0.4 MG Capsule PO (08:46)
[2019-11-28] MEDS: Nystatin Powder 15gm Bottle 1 APPLIC TOPICAL ×2 (08:47→21:07)
[2019-11-28 09:00] LABS: Bedside Glucose 141 mg/dL (70-110)
--- NOTE | 2019-11-28 09:25 | PN.RENAL_ITS ---
Patient Problems: Active and Suspected Problems (Last Updated 10/30/19 @ 07:[address] Ade Finn MD) Acute on chronic congestive heart failure (Acute) Anasarca (Acute) Subjective: doing Ok No nausea No vomiting breathing is stable - Physical Exam Vitals/I&O's: Vital Signs Temp Pulse Resp BP Pulse Ox 98.3 F 54 L 18 119/61 95 11/28/19 08:45 11/28/19 09:02 11/28/19 08:45 11/28/19 08:45 11/28/19 08:45 Oxygen Flow Rate (L/min) [ 4 AMBULATION with Oxygen] Oxygen Flow Rate (L/min) 3 Oxygen Delivery Method Nasal Cannula Weight: 154.7 kg Body Mass Index (BMI) 57.9 Finger Stick Blood Glucose 479 Intake and Output for Last 24 Hours 11/26/19 11/27/19 11/28/19 23:59 23:59 23:59 Intake Total 1570 / 1600 1900 / 1900 140 / 140 Output Total 4950 / 6550 5475 / 5475 1600 / 1600 Balance -3380 / -4950 -3575 / -3575 -1460 / -1460 General: Alert, Oriented x3 HEENT: Atraumatic Oral: Moist Mucosa Neck: Supple, No JVD Lungs: Clear to auscultation, Normal air movement, No rhonchi, No wheeze Cardiovascular: Regular rate, Regular Rhythm, Normal S1, Normal S2 Abdomen: Bowel Sounds Present, Soft, Non Tender, Non-Distended Extremities: Edema - +2 edema LE Skin: No rashes Lymphatic: No Cervical, Supraclavicular, or Inguinal Adenopathy Neurological: Cranial nerves II-XII grossly intact, Neuro grossly intact Psych/Mental Status: Appropriate Laboratory Results 11/27/19 08:06: POC Glucose 120 H 11/27/19 11:53: POC Glucose 142 H 11/27/19 12:20: Sodium 137, Potassium 3.3 L, Chloride 83 L, Carbon Dioxide > 45.0 H*, Anion Gap TNP, BUN 65 H, Creatinine 2.49 H, Estim Creat Clear Calc 30.14, Est GFR (MDRD) Af Amer 34 L, Est GFR (MDRD) Non-Af 28 L, BUN/Creatinine Ratio 26.1 H, Glucose 130 H, Calcium 9.5 11/27/19 16:12: POC Glucose 149 H 11/27/19 21:01: POC Glucose 142 H 11/28/19 06:08: Sodium 137, Potassium 2.6 L*, Chloride 84 L, Carbon Dioxide > 45.0 H*, Anion Gap TNP, BUN 68 H, Creatinine 2.55 H, Estim Creat Clear Calc 29.43, Est GFR (MDRD) Af Amer 33 L, Est GFR (MDRD) Non-Af 27 L, BUN/Creatinine Ratio 26.7 H, Glucose 108 H, Calcium 9.2, Phosphorus 4.5 11/28/19 08:40: POC Glucose 141 H Current Medications Acetaminophen (Tylenol) 650 mg PO Q6H PRN PRN PRN Reason: Pain Score 1-10/10 Last Admin: 11/28/19 05:20 Dose: 650 mg Documented by: Acetazolamide (Diamox) 125 mg PO BID [facility] Last Admin: 11/28/19 08:45 Dose: 125 mg Documented by: [facility]) [facility] Last Admin: 11/28/19 08:45 Dose: 200 mg Documented by: Atorvastatin Calcium (Lipitor) 20 mg PO QHS [facility] Last Admin: 11/27/19 21:03 Dose: 20 mg Documented by: Benzonatate (Tessalon Perle) 100 mg PO TID PRN PRN PRN Reason: COUGH Last Admin: 11/25/19 12:52 Dose: 100 mg Documented by: Bumetanide (Bumex) 1 mg PO BIDLX [facility] Last Admin: 11/28/19 08:45 Dose: 1 mg Documented by: Calamine/Phenol (Calmoseptine Ointment) 1 applic TOPICAL BID [facility]; Protocol Last Admin: 11/28/19 08:46 Dose: 1 applic Documented by: Guaifenesin (Robitussin) 10 ml PO Q4H PRN PRN PRN Reason: COUGH Last Admin: 11/28/19 08:45 Dose: 10 ml Documented by: Sodium Chloride () 250 mls @ 15 mls/hr IV .[id number] PRN PRN Reason: Saline Flush Sodium Chloride () 250 mls @ 15 mls/hr IV .[id number] PRN PRN Reason: Additional IVPB Infusion Potassium Chloride () 10 meq in 100 mls @ 100 mls/hr IV BOLUS Q1H [facility] Stop: 11/28/19 14:46 Insulin Glargine (Lantus (Bkc)) 15 units SC BID [facility] Last Admin: 11/27/19 21:03 Dose: 15 u Documented by: Insulin Human Lispro (Humalog Kwikpen (Bkc)) 5 unit SC LUNCH [facility] Last Admin: 11/27/19 12:00 Dose: 5 u Documented by: Insulin Human Lispro (Humalog Kwikpen (Bkc)) 7 unit SC BREAKFAST [facility] Last Admin: 11/28/19 08:44 Dose: 7 unit Documented by: Insulin Human Lispro (Humalog Kwikpen (Bkc)) 6 unit SC DINNER [facility] Last Admin: 11/27/19 16:14 Dose: 6 units Documented by: Metoprolol Succinate (Toprol Xl (Beta Rakesh)) 50 mg PO DAILY [facility] Last Admin: 11/28/19 09:02 Dose: Not Given Documented by: Multivitamins (Multivitamin) [facility] Last Admin: 11/28/19 08:45 Dose: 1 tablet Documented by: Nystatin (Mycostatin Powder) 1 applic TOPICAL BID [facility]; Protocol Last Admin: 11/28/19 08:47 Dose: 1 applic Documented by: Potassium Chloride (K-Dur) 60 meq [facility] Last Admin: 11/28/19 08:47 Dose: 60 meq Documented by: Sodium Chloride () 10 - 40 ml IV UD PRN PRN Reason: SALINE FLUSH Last Admin: 11/27/19 08:38 Dose: 10 ml Documented by: Tamsulosin HCl (Flomax) 0.4 mg PO DAILY [facility] Last Admin: 11/28/19 08:46 Dose: 0.4 mg Documented by: Warfarin Sodium (Jantoven) 3 mg PO DAILY@1700 [facility] Last Admin: 11/27/19 16:17 Dose: 3 mg Documented by: Medical Necessity - Tobacco Use Smoking Status: Never smoker Assessment/Plan All Active Problems (Last Updated 10/30/19 @ 07:[address] 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 likely from from diuresis Pt likely has severe total body K deficiency K remains low < 3.0 this am Will give KCl IV 60 mEq Agree with increasing KCl PO to 60 PO BID check Mg and replace as needs 3- contraction metabolic alkalosis. Ok with Diamox Monitor serum HC03 daily 4- Edema likely from sever pulmonary HTN and right ventricle failure continue diuresis Keep O>I fluid restriction 1500 ml daily Na intake 1500 mg daily accurate I/O Renal team will continue to follow Please call if any question at [phone] Justo Sauceda MD
[2019-11-28] MEDS: 0.9% Saline Lock 10 ML Syringe IV (09:29)
[2019-11-28] MEDS: Potassium Chloride 10mEq/100mL 10 MEQ/100 ML IV.SOLN. 100 MEQ IV BOLUS ×7 (09:29→15:51)
[2019-11-28] MEDS: Insulin Lispro 100 UNIT/ML INSULN.PEN SC (11:50)
[2019-11-28 11:55] LABS: Bedside Glucose 143 mg/dL (70-110)
[2019-11-28 16:38] LABS: BUN 70 mg/dL (7-18); Calcium,Total 9.3 mg/dL (8.5-10.1); Carbon Dioxide > 45.0 mmol/L (21.0-32.0); Chloride 84 mmol/L (98-107); Creatinine, Serum 2.69 mg/dL (0.70-1.30); EST Glomerular Filtration Rate 26 mL/min (>60); Est Glom Filt Rate - Afr Amer 31 mL/min (>60); Glucose 131 mg/dL (74-106); Potassium 3.5 mmol/L (3.5-5.1); Sodium Level 135 mmol/L (136-145)
[2019-11-28] MEDS: Insulin Lispro 100 UNIT/ML INSULN.PEN 6 UNIT SC (17:20)
[2019-11-28 17:21] LABS: Bedside Glucose 143 mg/dL (70-110)
[2019-11-28] MEDS: Atorvastatin Calcium 20 MG Tablet PO (21:08)
[2019-11-28 21:21] LABS: Bedside Glucose 140 mg/dL (70-110)
[2019-11-29] VITALS (11 sets, daily range): BP systolic 103–129; BP diastolic 46–87; PULSE 55–72; RESP 16–20; TEMP 36.6–37; O2SAT 92–96
[2019-11-29] MEDS: Acetaminophen 325 MG Tablet 650 MG PO ×2 (03:41→21:34)
[2019-11-29 06:12] LABS: International Normalized Ratio 2.9; Prothrombin Time (Protime)PT. 29.6 SECONDS (11.7-14.9)
[2019-11-29 06:36] LABS: BUN 71 mg/dL (7-18); BUN/Creat Ratio 28.9 RATIO (10-20); Calcium,Total 9.3 mg/dL (8.5-10.1); Carbon Dioxide > 45.0 mmol/L (21.0-32.0); Chloride 83 mmol/L (98-107); Creatinine, Serum 2.46 mg/dL (0.70-1.30); EST Glomerular Filtration Rate 29 mL/min (>60); Est Glom Filt Rate - Afr Amer 35 mL/min (>60); Estimated Creatinine Clearance 30.51 ml/min; Glucose 121 mg/dL (74-106); Potassium 2.8 mmol/L (3.5-5.1); Sodium Level 134 mmol/L (136-145)
[2019-11-29] MEDS: AcetaZOLAMIDE 250 MG Tablet 125 MG PO ×2 (08:44→21:33)
[2019-11-29] MEDS: Bumetanide 0.5 MG Tablet 1 MG PO ×2 (08:45→17:15)
[2019-11-29] MEDS: Amiodarone 200 MG Tablet PO ×2 (08:45→17:15)
[2019-11-29] MEDS: Multivitamins,Therapeutic Tablet 1 TABLET PO (08:45)
[2019-11-29] MEDS: Tamsulosin HCl 0.4 MG Capsule PO (08:46)
[2019-11-29] MEDS: Metoprolol(XL)Succ 50 MG Tablet PO (08:46)
[2019-11-29] MEDS: Insulin Lispro 100 UNIT/ML INSULN.PEN 7 UNIT SC (08:47)
--- NOTE | 2019-11-29 08:58 | PCM.PN.REN ---
Patient Problems: Active and Suspected Problems (Last Updated 10/30/19 @ 07:[address] Ade Finn MD) Acute on chronic congestive heart failure (Acute) Anasarca (Acute) Subjective: No nausea No vomiting breathing is stable No SOB - Physical Exam Vitals/I&O's: Vital Signs Temp Pulse Resp BP Pulse Ox 97.8 F 57 L 18 128/71 H 96 11/29/19 08:26 11/29/19 08:26 11/29/19 08:26 11/29/19 08:26 11/29/19 08:26 Oxygen Flow Rate (L/min) [ 4 AMBULATION with Oxygen] Oxygen Flow Rate (L/min) 3 Oxygen Delivery Method Nasal Cannula Weight: 155.1 kg Body Mass Index (BMI) 57.9 Finger Stick Blood Glucose 479 Intake and Output for Last 24 Hours 11/27/19 11/28/19 11/29/19 23:59 23:59 23:59 Intake Total 1900 / 1900 2519.17 / 2859.17 580 / 580 Output Total 5475 / 5475 3300 / 4400 2600 / 2600 Balance -3575 / -3575 -780.83 / -1540.83 -2019 / -2019 General: Alert, Oriented x3 HEENT: Atraumatic Oral: Moist Mucosa Neck: Supple, No JVD Lungs: Clear to auscultation, Normal air movement, No rhonchi Cardiovascular: Regular rate, Regular Rhythm, Normal S1, Normal S2 Abdomen: Bowel Sounds Present, Soft, Non Tender, Non-Distended Extremities: No clubbing, No cyanosis, Edema Musculoskeletal: No Tenderness to Palpation of Joints or Extremities Lymphatic: Cervical Adenopathy Neurological: Cranial nerves II-XII grossly intact, Neuro grossly intact Psych/Mental Status: Appropriate Laboratory Results 11/28/19 08:40: POC Glucose 141 H 11/28/19 11:48: POC Glucose 143 H 11/28/19 15:55: Sodium 135 L, Potassium 3.5, Chloride 84 L, Carbon Dioxide > 45.0 H*, Anion Gap TNP, BUN 70 H, Creatinine 2.69 H, Estim Creat Clear Calc 27.90, Est GFR (MDRD) Af Amer 31 L, Est GFR (MDRD) Non-Af 26 L, BUN/Creatinine Ratio 26.0 H, Glucose 131 H, Calcium 9.3 11/28/19 17:16: POC Glucose 143 H 11/28/19 20:53: POC Glucose 140 H 11/29/19 05:54: PT 29.6 H, INR 2.9 11/29/19 05:54: Sodium 134 L, Potassium 2.8 L, Chloride 83 L, Carbon Dioxide > 45.0 H*, Anion Gap TNP, BUN 71 H, Creatinine 2.46 H, Estim Creat Clear Calc 30.51, Est GFR (MDRD) Af Amer 35 L, Est GFR (MDRD) Non-Af 29 L, BUN/Creatinine Ratio 28.9 H, Glucose 121 H, Calcium 9.3 Current Medications Acetaminophen (Tylenol) 650 mg PO Q6H PRN PRN PRN Reason: Pain Score 1-10/10 Last Admin: 11/29/19 03:41 Dose: 650 mg Documented by: Acetazolamide (Diamox) 125 mg PO BID [facility] Last Admin: 11/28/19 21:08 Dose: 125 mg Documented by: Amiodarone HCl (Cordarone) 200 mg PO BIDCM [facility] Last Admin: 11/28/19 17:19 Dose: 200 mg Documented by: Atorvastatin Calcium (Lipitor) 20 mg PO QHS [facility] Last Admin: 11/28/19 21:08 Dose: 20 mg Documented by: Benzonatate (Tessalon Perle) 100 mg PO TID PRN PRN PRN Reason: COUGH Last Admin: 11/25/19 12:52 Dose: 100 mg Documented by: Bumetanide (Bumex) 1 mg PO BIDLX [facility] Last Admin: 11/28/19 17:19 Dose: 1 mg Documented by: Calamine/Phenol (Calmoseptine Ointment) 1 applic TOPICAL BID [facility]; Protocol Last Admin: 11/28/19 21:10 Dose: 1 applic Documented by: Guaifenesin (Robitussin) 10 ml PO Q4H PRN PRN PRN Reason: COUGH Last Admin: 11/28/19 08:45 Dose: 10 ml Documented by: Sodium Chloride () 250 mls @ 15 mls/hr IV .[id number] PRN PRN Reason: Saline Flush Sodium Chloride () 250 mls @ 15 mls/hr IV .[id number] PRN PRN Reason: Additional IVPB Infusion Last Infusion: 11/28/19 17:09 Dose: 0 mls/hr Documented by: Potassium Chloride () 10 meq in 100 mls @ 100 mls/hr IV BOLUS Q1H [facility] Stop: 11/29/19 14:59 Insulin Glargine (Lantus (Bkc)) 15 units SC BID [facility] Last Admin: 11/28/19 21:08 Dose: 15 u Documented by: Insulin Human Lispro (Humalog Kwikpen (Bkc)) 5 unit SC LUNCH [facility] Last Admin: 11/28/19 11:50 Dose: 5 u Documented by: Insulin Human Lispro (Humalog Kwikpen (Bkc)) 7 unit SC BREAKFAST [facility] Last Admin: 11/28/19 08:44 Dose: 7 unit Documented by: Insulin Human Lispro (Humalog Kwikpen (Bkc)) 6 unit SC DINNER [facility] Last Admin: 11/28/19 17:20 Dose: 6 units Documented by: Metoprolol Succinate (Toprol Xl (Beta Rakesh)) 50 mg PO DAILY [facility] Last Admin: 11/28/19 09:02 Dose: Not Given Documented by: [facility]it[facility]) [facility] Last Admin: 11/28/19 08:45 Dose: 1 tablet Documented by: Nystatin (Mycostatin Powder) 1 applic TOPICAL BID [facility]; Protocol Last Admin: 11/28/19 21:07 Dose: 1 applic Documented by: Potassium Chloride (K-Dur) [facility] Last Admin: 11/28/19 17:20 Dose: 60 meq Documented by: Sodium Chloride () 10 - 40 ml IV UD PRN PRN Reason: SALINE FLUSH Last Admin: 11/28/19 09:29 Dose: 10 ml Documented by: Tamsulosin HCl (Flomax) 0.4 mg PO DAILY [facility] Last Admin: 11/28/19 08:46 Dose: 0.4 mg Documented by: Warfarin Sodium (Jantoven) 3 mg PO DAILY@1700 [facility] Last Admin: 11/28/19 17:20 Dose: 3 mg Documented by: Medical Necessity - Tobacco Use Smoking Status: Never smoker Assessment/Plan All Active Problems (Last Updated 10/30/19 @ 07:[address] 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 UOP is 3.3 L Please avoid overdiuresis last metolazone dose was 11/26 continue bumex 1 mg PO daily continue acetazolamide No need for [employer]UE[employer] Continue to monitor RFP 2- Hypokalemia severe . likely from from diuresis Pt likely has severe total body K deficiency K remains low < 3.0 this am Will give KCl IV 60 mEq Pt received 40 mEq PO of KCl this am continue KCl PO to 60 PO BID check Mg and replace as needs 3- contraction metabolic alkalosis. Ok with Diamox HC03 > 45 Monitor serum HC03 daily 4- Edema likely from sever pulmonary HTN and right ventricle failure continue diuresis Keep O>I fluid restriction 1500 ml daily Na intake 1500 mg daily accurate I/O Renal team will continue to follow Please call if any question at [phone] Justo Sauceda MD
[2019-11-29] MEDS: Nystatin Powder 15gm Bottle 1 APPLIC TOPICAL (08:59)
[2019-11-29] MEDS: Menthol/Lanolin/Calamine/Znox 113 GM Tube 1 APPLIC TOPICAL (08:59)
--- NOTE | 2019-11-29 10:45 | PCM.PN.HOSP ---
Patient Problems: Active and Suspected Problems (Last Updated 10/30/19 @ 07:[address] Ade Finn MD) Acute on chronic congestive heart failure (Acute) Anasarca (Acute) Subjective: No change, doing well overnight. Still with cough, better than when he presented to the hospital. Vitals/I&O's: Vital Signs Temp Pulse Resp BP Pulse Ox 97.8 F 60 18 128/71 H 96 11/29/19 08:26 11/29/19 08:46 11/29/19 08:26 11/29/19 08:26 11/29/19 08:26 Oxygen Flow Rate (L/min) [ 4 AMBULATION with Oxygen] Oxygen Flow Rate (L/min) 3 Oxygen Delivery Method Nasal Cannula Weight: 341 lb 14.991 oz Body Mass Index (BMI) 57.9 Finger Stick Blood Glucose 479 Intake and Output for Last 24 Hours 11/27/19 11/28/19 11/29/19 23:59 23:59 23:59 Intake Total 1900 / 1900 2519.17 / 2859.17 580 / 580 Output Total 5475 / 5475 3300 / 4400 2600 / 2600 Balance -3575 / -3575 -780.83 / -1540.83 -2020 / -2020 General: Alert, Oriented x3, Cooperative, No apparent distress HEENT: Atraumatic, PERRLA, EOMI, Normocephalic Oral: Moist Mucosa Neck: Supple, No JVD Lungs: Clear to auscultation, Normal air movement, No rhonchi, No wheeze, No rales, Diminished Cardiovascular: Regular rate, Regular Rhythm, Normal S1, Normal S2, No murmurs Abdomen: Soft, Non Tender, Non-Distended, No Hepato-splenomegaly Extremities: Capillary Refill Less than 3 Seconds, Edema - 2+ pitting bilateral lower extremities Skin: Ulcer on the right anterior vasquez doing well, no signs of infection. Continue with local wound care Neurological: Neuro grossly intact, Sensory exam intact to light touch and pain Psych/Mental Status: Normal Affect, Appropriate Laboratory Results 11/28/19 11:48: POC Glucose 143 H 11/28/19 15:55: Sodium 135 L, Potassium 3.5, Chloride 84 L, Carbon Dioxide > 45.0 H*, Anion Gap TNP, BUN 70 H, Creatinine 2.69 H, Estim Creat Clear Calc 27.90, Est GFR (MDRD) Af Amer 31 L, Est GFR (MDRD) Non-Af 26 L, BUN/Creatinine Ratio 26.0 H, Glucose 131 H, Calcium 9.3 11/28/19 17:16: POC Glucose 143 H 11/28/19 20:53: POC Glucose 140 H 11/29/19 05:54: PT 29.6 H, INR 2.9 11/29/19 05:54: Sodium 134 L, Potassium 2.8 L, Chloride 83 L, Carbon Dioxide > 45.0 H*, Anion Gap TNP, BUN 71 H, Creatinine 2.46 H, Estim Creat Clear Calc 30.51, Est GFR (MDRD) Af Amer 35 L, Est GFR (MDRD) Non-Af 29 L, BUN/Creatinine Ratio 28.9 H, Glucose 121 H, Calcium 9.3 Current Medications Acetaminophen (Tylenol) 650 mg PO Q6H PRN PRN PRN Reason: Pain Score 1-10/10 Last Admin: 11/29/19 03:41 Dose: 650 mg Documented by: Acetazolamide (Diamox) 125 mg PO BID [facility] Last Admin: 11/29/19 08:44 Dose: 125 mg Documented by: Amiodarone HCl (Cordarone) 200 mg PO BIDCM [facility] Last Admin: 11/29/19 08:45 Dose: 200 mg Documented by: Atorvastatin Calcium (Lipitor) 20 mg PO QHS [facility] Last Admin: 11/28/19 21:08 Dose: 20 mg Documented by: Benzonatate (Tessalon Perle) 100 mg PO TID PRN PRN PRN Reason: COUGH Last Admin: 11/25/19 12:52 Dose: 100 mg Documented by: Bumetanide (Bumex) 1 mg PO BIDLX [facility] Last Admin: 11/29/19 08:45 Dose: 1 mg Documented by: Calamine/Phenol (Calmoseptine Ointment) 1 applic TOPICAL BID [facility]; Protocol Last Admin: 11/29/19 08:59 Dose: 1 applic Documented by: Guaifenesin (Robitussin) 10 ml PO Q4H PRN PRN PRN Reason: COUGH Last Admin: 11/28/19 08:45 Dose: 10 ml Documented by: Sodium Chloride () 250 mls @ 15 mls/hr IV .[id number] PRN PRN Reason: Saline Flush Sodium Chloride () 250 mls @ 15 mls/hr IV .[id number] PRN PRN Reason: Additional IVPB Infusion Last Infusion: 11/28/19 17:09 Dose: 0 mls/hr Documented by: Insulin Glargine (Lantus (Bkc)) 15 units SC BID [facility] Last Admin: 11/29/19 08:48 Dose: 15 u Documented by: Insulin Human Lispro (Humalog Kwikpen (Bk)) 5 unit SC LUNCH [facility] Last Admin: 11/28/19 11:50 Dose: 5 u Documented by: Insulin Human Lispro (Humalog Kwikpen (Bk)) 7 unit SC BREAKFAST [facility] Last Admin: 11/29/19 08:47 Dose: 7 unit Documented by: Insulin Human Lispro (Humalog Kwikpen (Bkc)) 6 unit SC DINNER [facility] Last Admin: 11/28/19 17:20 Dose: 6 units Documented by: Metoprolol Succinate (Toprol Xl (Beta Rakesh)) 50 mg PO DAILY [facility] Last Admin: 11/29/19 08:46 Dose: 50 mg Documented by: Multivit[facility] ([facility]itamin) [facility] Last Admin: 11/29/19 08:45 Dose: 1 tablet Documented by: Nystatin (Mycostatin Powder) 1 applic TOPICAL BID [facility]; Protocol Last Admin: 11/29/19 08:59 Dose: 1 applic Documented by: Potassium Chloride (K-Dur) [facility] Last Admin: 11/29/19 08:44 Dose: 60 meq Documented by: Sodium Chloride () 10 - 40 ml IV UD PRN PRN Reason: SALINE FLUSH Last Admin: 11/28/19 09:29 Dose: 10 ml Documented by: Tamsulosin HCl (Flomax) 0.4 mg PO DAILY [facility] Last Admin: 11/29/19 08:46 Dose: 0.4 mg Documented by: Warfarin Sodium (Jantoven) 3 mg PO DAILY@1700 [facility] Last Admin: 11/28/19 17:20 Dose: 3 mg Documented by: STROKE Vital Signs/Narrative: Vital Signs Temp Pulse Resp BP Pulse Ox 11/29/19 08:46 60 11/29/19 08:26 97.8 F 57 L 18 128/71 H 96 08/19/20 07:01 58 L Medical Necessity - Tobacco Use Smoking Status: Never smoker Assessment/Plan All Active Problems (Last Updated 10/30/19 @ 07:[address] Ade Finn MD) Acute on chronic congestive heart failure (Acute) Anasarca (Acute) Supratherapeutic INR (Acute) Hyperkalemia (Acute) 1. Acute on chronic diastolic CHF with severe pulmonary hypertension and cor pulmonale/A. fib/history of VSD repaired/HTN/morbid obesity -Discussed with him that lifestyle modifications will need to be, necessity for him given his BMI of 52 -He is back down to his home oxygen level of 3 L -He has been diuresed over 25 L -He does have a contraction alkalosis with a bicarb of over 45, his metolazone was made Wednesday and his Bumex was decreased to 1 mg p.o. twice daily. It is his alkalosis that is making his potassium difficult to manage. We will continue with Diamox to lower his bicarb -Echo with an EF of 55% and a RVSP of 71 mmHg -Continue with Coumadin INR is 2.7 -We will continue to replace his potassium, today it is 2.6, magnesium is normal. -Chest x-ray read as vascular congestion from CHF 2. CKD 3/hypokalemia and metabolic alkalosis -Hypokalemia metabolic alkalosis secondary to aggressive diuresis -Renal function is stable at baseline, appreciate nephrology input 3. IDDM 2 -We were able to significantly decrease the amount of insulin he received secondary to an appropriate diet -Continue with dietary education and teaching 4. BPH -Stable -Continue with Flomax DVT: Coumadin Inpatient E&M: [id number] Subs Hosp L2
[2019-11-29 10:56] LABS: Bedside Glucose 182 mg/dL (70-110)
[2019-11-29] MEDS: Insulin Lispro 100 UNIT/ML INSULN.PEN SC (11:41)
[2019-11-29] MEDS: 0.9% Saline Lock 10 ML Syringe IV (11:47)
[2019-11-29 12:35] LABS: Bedside Glucose 148 mg/dL (70-110)
[2019-11-29 13:08] LABS: BUN 70 mg/dL (7-18); BUN/Creat Ratio 28.6 RATIO (10-20); Calcium,Total 9.5 mg/dL (8.5-10.1); Carbon Dioxide > 45.0 mmol/L (21.0-32.0); Chloride 87 mmol/L (98-107); Creatinine, Serum 2.45 mg/dL (0.70-1.30); EST Glomerular Filtration Rate 29 mL/min (>60); Est Glom Filt Rate - Afr Amer 35 mL/min (>60); Estimated Creatinine Clearance 30.63 ml/min; Glucose 135 mg/dL (74-106); Potassium 2.9 mmol/L (3.5-5.1); Sodium Level 137 mmol/L (136-145)
[2019-11-29] MEDS: Insulin Lispro 100 UNIT/ML INSULN.PEN 6 UNIT SC (17:16)
[2019-11-29 17:31] LABS: Bedside Glucose 124 mg/dL (70-110)
[2019-11-29] MEDS: Atorvastatin Calcium 20 MG Tablet PO (21:33)
[2019-11-29] MEDS: Benzonatate 100 MG Capsule PO (21:34)
[2019-11-29 22:30] LABS: Bedside Glucose 175 mg/dL (70-110)
[2019-11-30] VITALS (11 sets, daily range): BP systolic 99–136; BP diastolic 37–72; PULSE 50–67; RESP 16–20; TEMP 35.9–36.7; O2SAT 95–97
[2019-11-30 07:04] LABS: BUN 73 mg/dL (7-18); BUN/Creat Ratio 27.5 RATIO (10-20); Calcium,Total 9.4 mg/dL (8.5-10.1); Chloride 88 mmol/L (98-107); Creatinine, Serum 2.65 mg/dL (0.70-1.30); EST Glomerular Filtration Rate 26 mL/min (>60); Est Glom Filt Rate - Afr Amer 32 mL/min (>60); Estimated Creatinine Clearance 28.32 ml/min; Glucose 131 mg/dL (74-106); Potassium 3.1 mmol/L (3.5-5.1); Sodium Level 138 mmol/L (136-145)
[2019-11-30 07:13] LABS: International Normalized Ratio 2.8; Prothrombin Time (Protime)PT. 28.8 SECONDS (11.7-14.9)
[2019-11-30] MEDS: Amiodarone 200 MG Tablet PO ×2 (07:59→16:26)
[2019-11-30] MEDS: Multivitamins,Therapeutic Tablet 1 TABLET PO (08:00)
[2019-11-30] MEDS: Insulin Lispro 100 UNIT/ML INSULN.PEN 7 UNIT SC (08:00)
[2019-11-30 08:10] LABS: Bedside Glucose 127 mg/dL (70-110)
[2019-11-30 08:25] LABS: Carbon Dioxide > 45.0 mmol/L (21.0-32.0)
[2019-11-30] MEDS: Metoprolol(XL)Succ 50 MG Tablet PO (09:39)
[2019-11-30] MEDS: AcetaZOLAMIDE 250 MG Tablet 125 MG PO ×2 (09:39→22:01)
[2019-11-30] MEDS: Menthol/Lanolin/Calamine/Znox 113 GM Tube 1 APPLIC TOPICAL ×2 (09:39→22:01)
[2019-11-30] MEDS: Tamsulosin HCl 0.4 MG Capsule PO (09:39)
[2019-11-30] MEDS: Bumetanide 0.5 MG Tablet 1 MG PO (09:39)
[2019-11-30] MEDS: Nystatin Powder 15gm Bottle 1 APPLIC TOPICAL ×2 (09:40→22:02)
[2019-11-30 10:05] LABS: Bedside Glucose 241 mg/dL (70-110)
--- NOTE | 2019-11-30 11:33 | PN_ITS ---
Patient Problems: Active and Suspected Problems (Last Updated 10/30/19 @ 07:[address] Ade Finn MD) Acute on chronic congestive heart failure (Acute) Anasarca (Acute) Subjective: Doing well, still with a cough though not as productive. Chest x-ray was negative for pneumonia and showed cardiomegaly with CHF findings. Vitals/I&O's: Vital Signs Temp Pulse Resp BP Pulse Ox 98.1 F 67 16 136/61 H 97 11/30/19 09:35 11/30/19 09:39 11/30/19 09:35 11/30/19 09:35 11/30/19 09:35 Oxygen Flow Rate (L/min) [ 4 AMBULATION with Oxygen] Oxygen Flow Rate (L/min) 3 Oxygen Delivery Method Nasal Cannula Weight: 339 lb 4.662 oz Body Mass Index (BMI) 57.9 Finger Stick Blood Glucose 479 Intake and Output for Last 24 Hours 11/28/19 11/29/19 11/30/19 23:59 23:59 23:59 Intake Total 2519.17 / 2859.17 1720 / 1720 420 / 420 Output Total 3300 / 4400 6300 / 6300 600 / 600 Balance -780.83 / -1540.83 -4580 / -4580 -180 / -180 General: Alert, Oriented x3, Cooperative, No apparent distress HEENT: Atraumatic, PERRLA, EOMI, Normocephalic Oral: Moist Mucosa Neck: Supple, No JVD Lungs: Clear to auscultation, Normal air movement, No rhonchi, No wheeze, No rales, Diminished Cardiovascular: Regular rate, Regular Rhythm, Normal S1, Normal S2, No murmurs Abdomen: Soft, Non Tender, Non-Distended, No Hepato-splenomegaly Extremities: Capillary Refill Less than 3 Seconds, Edema - 2+ pitting bilateral lower extremities Skin: Ulcer on the right anterior vasquez doing well, no signs of infection. Continue with local wound care Neurological: Neuro grossly intact, Sensory exam intact to light touch and pain Psych/Mental Status: Normal Affect, Appropriate Laboratory Results 11/29/19 11:37: POC Glucose 148 H 11/29/19 12:11: Sodium 137, Potassium 2.9 L, Chloride 87 L, Carbon Dioxide > 45.0 H*, Anion Gap TNP, BUN 70 H, Creatinine 2.45 H, Estim Creat Clear Calc 30.63, Est GFR (MDRD) Af Amer 35 L, Est GFR (MDRD) Non-Af 29 L, BUN/Creatinine Ratio 28.6 H, Glucose 135 H, Calcium 9.5 11/29/19 17:06: POC Glucose 124 H 11/29/19 21:31: POC Glucose 175 H 11/30/19 05:50: PT 28.8 H, INR 2.8 11/30/19 05:50: Sodium 138, Potassium 3.1 L, Chloride 88 L, Carbon Dioxide > 45.0 H*, Anion Gap TNP, BUN 73 H, Creatinine 2.65 H, Estim Creat Clear Calc 28.32, Est GFR (MDRD) Af Amer 32 L, Est GFR (MDRD) Non-Af 26 L, BUN/Creatinine Ratio 27.5 H, Glucose 131 H, Calcium 9.4 11/30/19 07:57: POC Glucose 127 H 11/30/19 09:45: POC Glucose 241 H Current Medications Acetaminophen (Tylenol) 650 mg PO Q6H PRN PRN PRN Reason: Pain Score 1-10/10 Last Admin: 11/29/19 21:34 Dose: 650 mg Documented by: Acetazolamide (Diamox) 125 mg PO BID [facility] Last Admin: 11/30/19 09:39 Dose: 125 mg Documented by: Amiodarone HCl (Cordarone) 200 mg PO BIDCM [facility] Last Admin: 11/30/19 07:59 Dose: 200 mg Documented by: Atorvastatin Calcium (Lipitor) 20 mg PO QHS [facility] Last Admin: 11/29/19 21:33 Dose: 20 mg Documented by: Benzonatate (Tessalon Perle) 100 mg PO TID PRN PRN PRN Reason: COUGH Last Admin: 11/29/19 21:34 Dose: 100 mg Documented by: Bumetanide (Bumex) 1 mg PO BIDLX [facility] Last Admin: 11/30/19 09:39 Dose: 1 mg Documented by: Calamine/Phenol (Calmoseptine Ointment) 1 applic TOPICAL BID [facility]; Protocol Last Admin: 11/30/19 09:39 Dose: 1 applic Documented by: Guaifenesin (Robitussin) 10 ml PO Q4H PRN PRN PRN Reason: COUGH Last Admin: 11/28/19 08:45 Dose: 10 ml Documented by: Sodium Chloride () 250 mls @ 15 mls/hr IV .[id number] PRN PRN Reason: Saline Flush Sodium Chloride () 250 mls @ 15 mls/hr IV .[id number] PRN PRN Reason: Additional IVPB Infusion Last Infusion: 11/29/19 17:37 Dose: Infused Documented by: Insulin Glargine (Lantus (Bk)) 15 units SC BID [facility] Last Admin: 11/30/19 09:47 Dose: 15 u Documented by: Insulin Human Lispro (Humalog Kwikpen ([facility])) 5 unit SC LUNCH [facility] Last Admin: 11/29/19 11:41 Dose: 5 u Documented by: Insulin Human Lispro (Humalog Kwikpen ([facility])) 7 unit SC BREAKFAST [facility] Last Admin: 11/30/19 08:00 Dose: 7 unit Documented by: Insulin Human Lispro (Humalog Kwikpen ([facility])) 6 unit SC DINNER [facility] Last Admin: 11/29/19 17:16 Dose: 6 units Documented by: Metoprolol Succinate (Toprol Xl (Beta Rakesh)) 50 mg PO DAILY [facility] Last Admin: 11/30/19 09:39 Dose: 50 mg Documented by: [facility]ivit[facility] ([facility]itamin) [facility] Last Admin: 11/30/19 08:00 Dose: 1 tablet Documented by: Nystatin (Mycostatin Powder) 1 applic TOPICAL BID [facility]; Protocol Last Admin: 11/30/19 09:40 Dose: 1 applic Documented by: Potassium Chloride (K-Dur) [facility] Last Admin: 11/30/19 07:59 Dose: 60 meq Documented by: Sodium Chloride () 10 - 40 ml IV UD PRN PRN Reason: SALINE FLUSH Last Admin: 11/29/19 11:47 Dose: 10 ml Documented by: Tamsulosin HCl (Flomax) 0.4 mg PO DAILY [facility] Last Admin: 11/30/19 09:39 Dose: 0.4 mg Documented by: Warfarin Sodium (Jantoven) 3 mg PO DAILY@1700 [facility] Last Admin: 11/29/19 17:16 Dose: 3 mg Documented by: STROKE Vital Signs/Narrative: Vital Signs Temp Pulse Resp BP Pulse Ox 08/20/20 09:39 67 11/30/19 09:35 98.1 F 67 16 136/61 H 97 Medical Necessity - Tobacco Use Smoking Status: Never smoker Assessment/Plan All Active Problems (Last Updated 10/30/19 @ 07:[address] Ade Finn MD) Acute on chronic congestive heart failure (Acute) Anasarca (Acute) Supratherapeutic INR (Acute) Hyperkalemia (Acute) 1. Acute on chronic diastolic CHF with severe pulmonary hypertension and cor pulmonale/A. fib/history of VSD repaired/HTN/morbid obesity -Discussed with him that lifestyle modifications will need to be, necessity for him given his BMI of 52 -He is back down to his home oxygen level of 3 L -He has been diuresed over 28 L -He does have a contraction alkalosis with a bicarb of over 45, his metolazone was made Wednesday and his Bumex was decreased to 1 mg p.o. twice daily. It is his alkalosis that is making his potassium difficult to manage. We will continue with Diamox to lower his bicarb -Echo with an EF of 55% and a RVSP of 71 mmHg -Continue with Coumadin INR is 2.8 -We will continue to replace his potassium, today it is 3.1 -Chest x-ray read as vascular congestion from CHF 2. CKD 3/hypokalemia and metabolic alkalosis -Hypokalemia metabolic alkalosis secondary to aggressive diuresis -Renal function is stable at baseline, appreciate nephrology input 3. IDDM 2 -We were able to significantly decrease the amount of insulin he received secondary to an appropriate diet -Continue with dietary education and teaching 4. BPH -Stable -Continue with Flomax DVT: Coumadin Inpatient E&M: [id number] Subs Hosp L2
[2019-11-30] MEDS: Insulin Lispro 100 UNIT/ML INSULN.PEN SC (12:04)
[2019-11-30 12:11] LABS: Bedside Glucose 167 mg/dL (70-110)
[2019-11-30] MEDS: Benzonatate 100 MG Capsule PO ×2 (12:59→18:50)
[2019-11-30] MEDS: guaiFENesin 10 ML UDC (200MG/10ML) PO ×2 (12:59→18:50)
--- NOTE | 2019-11-30 13:30 | PCM.PROGNOTE ---
Patient Problems: Active and Suspected Problems (Last Updated 10/30/19 @ 07:[address] Ade Finn MD) Acute on chronic congestive heart failure (Acute) Anasarca (Acute) Subjective: COUGH sob better no other c/o - Physical Exam Vitals/I&O's: Vital Signs Temp Pulse Resp BP Pulse Ox 98.1 F 67 16 136/61 H 97 11/30/19 09:35 11/30/19 09:39 11/30/19 09:35 11/30/19 09:35 11/30/19 09:35 Oxygen Flow Rate (L/min) [ 4 AMBULATION with Oxygen] Oxygen Flow Rate (L/min) 3 Oxygen Delivery Method Nasal Cannula Weight: 153.9 kg Body Mass Index (BMI) 57.9 Finger Stick Blood Glucose 479 Intake and Output for Last 24 Hours 11/28/19 11/29/19 11/30/19 23:59 23:59 23:59 Intake Total 2519.17 / 2859.17 1720 / 1720 900 / 900 Output Total 3300 / 4400 6300 / 6300 1200 / 1200 Balance -780.83 / -1540.83 -4580 / -4580 -300 / -300 General: Alert, Cooperative HEENT: Atraumatic, PERRLA Oral: Moist Mucosa Lungs: Clear to auscultation, Normal air movement Cardiovascular: Regular rate, Regular Rhythm, Normal S1, Normal S2 Abdomen: Bowel Sounds Present, Soft, Non Tender, Obese Extremities: Edema - b/l LE edema Laboratory Results 11/29/19 17:06: POC Glucose 124 H 11/29/19 21:31: POC Glucose 175 H 11/30/19 05:50: PT 28.8 H, INR 2.8 11/30/19 05:50: Sodium 138, Potassium 3.1 L, Chloride 88 L, Carbon Dioxide > 45.0 H*, Anion Gap TNP, BUN 73 H, Creatinine 2.65 H, Estim Creat Clear Calc 28.32, Est GFR (MDRD) Af Amer 32 L, Est GFR (MDRD) Non-Af 26 L, BUN/Creatinine Ratio 27.5 H, Glucose 131 H, Calcium 9.4 11/30/19 07:57: POC Glucose 127 H 11/30/19 09:45: POC Glucose 241 H 11/30/19 12:01: POC Glucose 167 H Current Medications Acetaminophen (Tylenol) 650 mg PO Q6H PRN PRN PRN Reason: Pain Score 1-10/10 Last Admin: 11/29/19 21:34 Dose: 650 mg Documented by: Acetazolamide (Diamox) 125 mg PO BID [facility] Last Admin: 11/30/19 09:39 Dose: 125 mg Documented by: Amiodarone HCl (Cordarone) 200 mg PO BIDCM [facility] Last Admin: 11/30/19 07:59 Dose: 200 mg Documented by: Atorvastatin Calcium (Lipitor) 20 mg PO QHS [facility] Last Admin: 11/29/19 21:33 Dose: 20 mg Documented by: Benzonatate (Tessalon Perle) 100 mg PO TID PRN PRN PRN Reason: COUGH Last Admin: 11/30/19 12:59 Dose: 100 mg Documented by: Bumetanide (Bumex) 1 mg PO BIDLX [facility] Last Admin: 11/30/19 09:39 Dose: 1 mg Documented by: Calamine/Phenol (Calmoseptine Ointment) 1 applic TOPICAL BID [facility]; Protocol Last Admin: 11/30/19 09:39 Dose: 1 applic Documented by: Guaifenesin (Robitussin) 10 ml PO Q4H PRN PRN PRN Reason: COUGH Last Admin: 11/30/19 12:59 Dose: 10 ml Documented by: Sodium Chloride () 250 mls @ 15 mls/hr IV .[id number] PRN PRN Reason: Saline Flush Sodium Chloride () 250 mls @ 15 mls/hr IV .[id number] PRN PRN Reason: Additional IVPB Infusion Last Infusion: 11/29/19 17:37 Dose: Infused Documented by: Insulin Glargine (Lantus (Bkc)) 15 units SC BID [facility] Last Admin: 11/30/19 09:47 Dose: 15 u Documented by: Insulin Human Lispro (Humalog Kwikpen (Bkc)) 5 unit SC LUNCH [facility] Last Admin: 11/30/19 12:04 Dose: 5 u Documented by: Insulin Human Lispro (Humalog Kwikpen (Bkc)) 7 unit SC BREAKFAST [facility] Last Admin: 11/30/19 08:00 Dose: 7 unit Documented by: Insulin Human Lispro (Humalog Kwikpen (Bkc)) 6 unit SC DINNER [facility] Last Admin: 11/29/19 17:16 Dose: 6 units Documented by: Metoprolol Succinate (Toprol Xl (Beta Rakesh)) 50 mg PO DAILY [facility] Last Admin: 11/30/19 09:39 Dose: 50 mg Documented by: Multivitamins (Multivitamin) [facility] Last Admin: 11/30/19 08:00 Dose: 1 tablet Documented by: Nystatin (Mycostatin Powder) 1 applic TOPICAL BID [facility]; Protocol Last Admin: 11/30/19 09:40 Dose: 1 applic Documented by: Potassium Chloride (K-Dur) 60 [facility] Last Admin: 11/30/19 07:59 Dose: 60 meq Documented by: Sodium Chloride () 10 - 40 ml IV UD PRN PRN Reason: SALINE FLUSH Last Admin: 11/29/19 11:47 Dose: 10 ml Documented by: Tamsulosin HCl (Flomax) 0.4 mg PO DAILY [facility] Last Admin: 11/30/19 09:39 Dose: 0.4 mg Documented by: Warfarin Sodium (Jantoven) 3 mg PO DAILY@1700 [facility] Last Admin: 11/29/19 17:16 Dose: 3 mg Documented by: Medical Necessity - Tobacco Use Smoking Status: Never smoker Assessment/Plan All Active Problems (Last Updated 10/30/19 @ 07:[address] Ade Finn MD) Acute on chronic congestive heart failure (Acute) Anasarca (Acute) Supratherapeutic INR (Acute) Hyperkalemia (Acute) CKD 3 LE edema Metabolic alkalosis Hypokalemia with diuretics HTN HF PH Scr relatively stable 2.65 6.3 L uop will adjust diuretics daily if worse Scr tomorrow adjust bumex on diamox for alkalosis continue current dose Replace potassium monitor Still hypervolemia. Avoid overdiuresis and nephrotoxins. Discussed with patient and family at bedside.
[2019-11-30] MEDS: Insulin Lispro 100 UNIT/ML INSULN.PEN 6 UNIT SC (16:24)
[2019-11-30 17:55] LABS: Bedside Glucose 137 mg/dL (70-110)
[2019-11-30] MEDS: Atorvastatin Calcium 20 MG Tablet PO (22:01)
[2019-11-30 22:16] LABS: Bedside Glucose 139 mg/dL (70-110)
[2019-11-30] MEDS: Acetaminophen 325 MG Tablet 650 MG PO (23:25)
[2019-12-01] VITALS (7 sets, daily range): BP systolic 95–138; BP diastolic 48–70; PULSE 49–57; RESP 16–18; TEMP 36.1–36.7; O2SAT 94–97
[2019-12-01] MEDS: Benzonatate 100 MG Capsule PO (04:07)
[2019-12-01] MEDS: guaiFENesin 10 ML UDC (200MG/10ML) PO (04:07)
[2019-12-01 06:42] LABS: International Normalized Ratio 3.2; Prothrombin Time (Protime)PT. 32.4 SECONDS (11.7-14.9)
[2019-12-01 07:05] LABS: BUN 73 mg/dL (7-18); BUN/Creat Ratio 27.1 RATIO (10-20); Calcium,Total 9.1 mg/dL (8.5-10.1); Carbon Dioxide > 45.0 mmol/L (21.0-32.0); Chloride 88 mmol/L (98-107); Creatinine, Serum 2.69 mg/dL (0.70-1.30); EST Glomerular Filtration Rate 26 mL/min (>60); Est Glom Filt Rate - Afr Amer 31 mL/min (>60); Glucose 118 mg/dL (74-106); Potassium 3.1 mmol/L (3.5-5.1); Sodium Level 136 mmol/L (136-145)
[2019-12-01] MEDS: Amiodarone 200 MG Tablet PO (08:18)
[2019-12-01] MEDS: Multivitamins,Therapeutic Tablet 1 TABLET PO (08:18)
[2019-12-01] MEDS: AcetaZOLAMIDE 250 MG Tablet 125 MG PO (08:19)
[2019-12-01] MEDS: Nystatin Powder 15gm Bottle 1 APPLIC TOPICAL (08:19)
[2019-12-01] MEDS: Bumetanide 0.5 MG Tablet 1 MG PO (08:19)
[2019-12-01] MEDS: Tamsulosin HCl 0.4 MG Capsule PO (08:19)
[2019-12-01] MEDS: Insulin Lispro 100 UNIT/ML INSULN.PEN 7 UNIT SC (08:21)
[2019-12-01] MEDS: Menthol/Lanolin/Calamine/Znox 113 GM Tube 1 APPLIC TOPICAL (08:21)
[2019-12-01 08:36] LABS: Bedside Glucose 129 mg/dL (70-110)
[2019-12-01] MEDS: Metoprolol(XL)Succ 50 MG Tablet PO (09:01)
--- NOTE | 2019-12-01 10:04 | DCINST_ITS ---
- Discharge Diagnoses Current Active Problems: Current Active and Chronic Problems (Last Updated 10/30/19 @ 07:[address] Aed Finn MD) Chronic kidney disease (CKD) (Chronic) Acute on chronic congestive heart failure (Acute) Anasarca (Acute) You will use the following diet at home:: Calorie/Carbohydrate Controlled (specify 1200, 1400, etc) - 1800, Cardiac, Fluid restricted (specify 2000 mls, 1500 mls) - 1500 Your food should be the consistency of: Regular Your liquids should be the consistency of: Regular/Thin Discharge Activity: Return to Normal Activity Call your doctor if you observe: Fever of 101 or Higher, Shortness of breath, Dizziness, Fainting spells, Swelling in the ankles, Chest pain, Increased palpitations (irregular heartbeat) Additional Instructions: You will need a repeat BMP in the next week to evaluate your potassium which has been low and your bicarb which has been high and you creatinine. Allergies/Adverse Reactions: Allergies albuterol Adverse Reaction (Verified 11/20/19 19:52) NEEDS FOLLOW-UP increased heart rate. amoxicillin trihydrate [From Augmentin] Adverse Reaction (Verified 11/20/19 19:52) Diarrhea indomethacin [From Indocin] Adverse Reaction (Verified 11/20/19 19:52) Nausea potassium clavulanate [From Augmentin] Adverse Reaction (Verified 11/20/19 19:52) Diarrhea Medications to take at Discharge Atorvastatin Calcium 20 mg PO QHS 04/16/19 Insulin Glargine [Lantus SoloStar Pen] 40 units SUBCUT BID pen 04/28/19 Insulin Lispro [Humalog KwikPen] 5 unit SUBCUT LUNCH insuln.pen 04/28/19 Insulin Lispro [Humalog KwikPen] 6 unit SUBCUT DINNER insuln.pen 04/28/19 Insulin Lispro [Humalog KwikPen] 7 unit SUBCUT BREAKFAST insuln.pen 04/28/19 Insulin Lispro [Humalog KwikPen] See Protocol SUBCUT ACHS insuln.pen 04/28/19 Metoprolol(XL)Succ [Toprol Xl (Beta Rakesh)] 50 mg PO DAILY tab 04/28/19 Amiodarone HCl 200 mg PO BID 08/08/19 Multivitamin [Daily Multiple Vitamin] 1 ea PO DAILY 10/28/19 Tamsulosin HCl [Flomax] 0.4 mg PO DAILY #90 cap 11/01/19 Acetaminophen [Tylenol] 625 mg PO Q6H PRN PRN 11/21/19 Docusate Sodium [Colace] 100 mg PO DAILY PRN PRN 11/21/19 Melatonin 3 mg PO QHS PRN 11/21/19 Multivitamin with Minerals [Multiple Vitamin] 1 ea PO DAILY 11/21/19 Warfarin [Coumadin] 3 mg PO DAILY 11/21/19 AcetaAZOLAMIDE [Diamox] 125 mg PO BID #60 tab 12/01/19 Bumetanide [Bumex] 1 mg PO BIDLX #60 tab 12/01/19 Potassium Chloride [K-Dur] 60 meq PO BIDCM #180 tab 12/01/19 The following prescriptions were given: Bumetanide [Bumex] 1 mg PO BIDLX #60 tab Transmission Status: Pending to [facility] AcetaAZOLAMIDE [Diamox] 125 mg PO BID #60 tab Transmission Status: Pending to [facility] Potassium Chloride [K-Dur] 60 meq PO BIDCM #180 tab Transmission Status: Pending to [facility] Primary Care Physician: Francisco Alcazar MD [Primary Care Provider] - Test Results: Test results from this visit will be discussed in further detail at your follow- up appointment, if applicable. Please Follow Up With: Elier Khanna MD When: 1-2 weeks Please Follow Up With: Sourav Juan PA When: 3-5 days Please Follow Up With: Brunilda Thorne DO When: 2-4 weeks
--- NOTE | 2019-12-01 11:00 | CASEMGMT ---
Addendum entered by Lani Carballo 12/01/19 14:37: D/C summ faxed to [facility] at this time. Angel MEJIA CM Addendum entered by Lani Carballo 12/01/19 12:12: Pt updated on all, voices understanding. Angel MEJIA CM Original Note: This ROBERTO CM to room to discuss discharge plan with pt. Pt's plan is still to go home with [facility] and pt is currently on 3liters nc, which is his order for at home. Pt does not qualify for any increased home oxygen at this time per Damian MEJIA. [facility] aware that pt is discharging today, voices understanding. D/C summ/instructions and SANDY faxed to [facility] at this time. Pt voices no further questions/concerns/needs at this time. Angel MEJIA CM
--- NOTE | 2019-12-01 11:06 | PHA.DC.MC ---
Pharmacy Service has performed discharge medication reconciliation and counseling for this patient. The patient was counseled on the following discharge medications and changes in medications for homegoing were reviewed. 1. ACETAZOLAMIDE 2. BUMETANIDE 3. K-DUR The Reason for Use, instructions for use, and potential side effects were reviewed for all new medications. The patient's questions regarding all of their medications were answered. The patient was able to verbally demonstrate an understanding of their discharge medications. Home Medications Atorvastatin Calcium 20 mg PO QHS 04/16/19 Insulin Glargine [Lantus SoloStar Pen] 40 units SUBCUT BID pen 04/28/19 Insulin Lispro [Humalog KwikPen] 5 unit SUBCUT LUNCH insuln.pen 04/28/19 Insulin Lispro [Humalog KwikPen] 6 unit SUBCUT DINNER insuln.pen 04/28/19 Insulin Lispro [Humalog KwikPen] 7 unit SUBCUT BREAKFAST insuln.pen 04/28/19 Insulin Lispro [Humalog KwikPen] See Protocol SUBCUT ACHS insuln.pen 04/28/19 Metoprolol(XL)Succ [Toprol Xl (Beta Rakesh)] 50 mg PO DAILY tab 04/28/19 Amiodarone HCl 200 mg PO BID 08/08/19 Multivitamin [Daily Multiple Vitamin] 1 ea PO DAILY 10/28/19 Tamsulosin HCl [Flomax] 0.4 mg PO DAILY #90 cap 11/01/19 Acetaminophen [Tylenol] 625 mg PO Q6H PRN PRN 11/21/19 Docusate Sodium [Colace] 100 mg PO DAILY PRN PRN 11/21/19 Melatonin 3 mg PO QHS PRN 11/21/19 Multivitamin with Minerals [Multiple Vitamin] 1 ea PO DAILY 11/21/19 Warfarin [Coumadin] 3 mg PO DAILY 11/21/19 AcetaAZOLAMIDE [Diamox] 125 mg PO BID #60 tab 12/01/19 Bumetanide [Bumex] 1 mg PO BIDLX #60 tab 12/01/19 Potassium Chloride [K-Dur] 60 meq PO BIDCM #180 tab 12/01/19 The patient's discharge medication list was reviewed for discrepancies and discrepancies were resolved. 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 Pt made aware of this, requested Rx be sent to [facility]. This pharmacist called [facility] to request they be sent over. Retail pharmacist to transfer outpatient dc scripts to [facility].
[2019-12-01] MEDS: Insulin Lispro 100 UNIT/ML INSULN.PEN SC (12:01)
[2019-12-01 12:06] LABS: Bedside Glucose 136 mg/dL (70-110)
--- NOTE | 2019-12-01 14:11 | PCM.DC.SUM ---
Discharge Date and Diagnosis - Problem List Patient Problems: Active and Suspected Problems (Last Updated 10/30/19 @ 07:[address] Ade Finn MD) Acute on chronic congestive heart failure (Acute) Anasarca (Acute) Date of Admission: 11/21/19 Date of Discharge: 12/01/19 - Primary Discharge Diagnosis Acute Problems: Active Problems (Last Updated 10/30/19 @ 07:[address] Ade Finn MD) Acute on chronic congestive heart failure (Acute) Anasarca (Acute) - Secondary Discharge Diagnosis Chronic Problems: Chronic Problems (Last Updated 10/30/19 @ 07:[address] Ade Finn MD) Chronic kidney disease (CKD) (Chronic) CHF (congestive heart failure) (Chronic) Morbid obesity with BMI of 50.0-59.9, adult (Chronic) assisted current use of anticoagulant (Chronic) History of right and left heart catheterization (Chronic 02/18/98) Done s/p VSD repair Per Dr. Sherif Espinoza @ [facility]: normal coronaries, mildly elevated PA pressures Paroxysmal SVT (supraventricular tachycardia) (Chronic) Atrial fibrillation (Chronic) History of atrial flutter (Chronic) Attempted atrial flutter ablation @ [facility] X 1 in 1997 (unsuccessful), followed by Atrial flutter ablations X [address] Paul at [facility] in Apr and October of 1998 Chronic diastolic congestive heart failure (Chronic) History of patent ductus arteriosus as a child (Chronic) Repaired at age 3 years, done @ [facility] Nonrheumatic tricuspid valve regurgitation (Chronic) Leaflet used for VSD repair in past History of ventricular septal defect repair (Chronic) 1977 (pt approx age 18) using Dacron patch, done at [facility] Hyperlipidemia (Chronic) Hypertension (Chronic) Diabetes mellitus, type II (Chronic) History of radiofrequency ablation procedure for cardiac arrhythmia (Chronic) Attempted atrial flutter ablation @ [facility] X 1 (unsuccessful), followed by Atrial flutter ablations X [address] Paul at [facility] in Apr and October of 1998 Pulmonary hypertension, moderate to severe (Chronic) PASP 69 mmHg in September 2013 LASHAWN (obstructive sleep apnea) (Chronic) Hospital Course and Treatment Imaging Results: Clinical Impression(s) from Imaging Studies Chest X-Ray 11/20/19 22:44 IMPRESSION: Worsening CHF. at 0030 Reported and signed by: Robbie Desouza MD Electronically Signed: Robbie Desouza MD at 0:28 EDT Tel , Service support , Chest X-Ray 11/28/19 07:00 IMPRESSION: Congestive heart failure. There has been no significant change since the previous study. Electronically Signed: Tabitha Brown, at 8:22 EDT Tel , Service support , Echo: Interpretation Summary The study was technically limited. Based upon the 2D echocardiographic and contrast enhanced images obtained there appears to be grossly normal left ventricular size, wall motion, and systolic function. The estimated ejection fraction is 55 %. Moderately dilated right ventricle. Moderate global right ventricular systolic dysfunction. Right ventricular systolic pressure estimated to be 71 mmHg compatible with severe pulmonary hypertension. Unable to assess diastolic dysfunction. Comment: The atrial septum and ventricular septum are not well visualized. Consults: Cardiology Nephrology Operations: None Procedures: 2-D Echocardiogram Summary of Care Provided: Per HPI: The patient is a 59 year old male patient with a past medical history of congestive heart failure, chronic kidney disease, diabetes, hypertension, hyperlipidemia, obesity who presents the emergency room with shortness of breath with exertion. Patient has been admitted within the last month for congestive heart failure and was also [facility] for extra care and was discharged about a week ago. Since that time he has progressively gained more weight and become more short of breath with exertion. He denies chest pain and/or nausea or vomiting. He does have a cough but no fever and COVID test is pending at the time of my evaluation. Chest x-ray is consistent with worsening congestive heart failure. Last EF was in May 2019 and was 60%. He will be admitted to the progressive care unit for further management of his congestive heart failure Hospital Course: 1. Acute on chronic diastolic CHF with severe pulmonary hypertension and cor pulmonale/A. fib/history of VSD repaired/HTN/morbid [id number]-old male presented with shortness of breath and was found to have significant CHF exacerbation. He was aggressively diuresed to over 29 L, but this led to him having a contraction alkalosis with an elevated bicarb. However he is breathing much better and feels much better than when he came in. He would like to go home today. He was transitioned from his home diuretics to 1 mg of Bumex twice daily as well as Diamox 125 mg p.o. twice daily. He should also be on metolazone 2.5 mg Wednesday and Wednesday however this was held in the hospital secondary to his continued hypokalemia and contraction alkalosis. I discussed with him the plan for discharge today and he expressed understanding of the risks and benefits of going home and would like to go home today. He will need to follow-up with cardiology as an outpatient, once his hypokalemia and alkalosis resolved we can likely restart him on his metolazone. As for his morbid obesity, he does have a BMI of 51, and lifestyle modifications were discussed. 2. Hypokalemia with a contraction/metabolic alkalosis/CKD 3-we have had significant difficulty maintaining his potassium levels despite normal phosphorus and magnesium levels. This is secondary to the excessive diuresis he has received during his hospitalization. He was placed on Diamox to try to help lower his bicarb and hopefully facilitate a normal potassium level. He decided that he wanted to go home today despite having a bicarb still greater than 45 mmol/L therefore he was discharged on potassium supplementation of 60 mEq twice daily. He will need to follow-up next week with his PCP for further labs and monitoring of his potassium and his bicarb as well as his creatinine. Need to follow-up with nephrology in a few weeks as well. 3. Type 2 diabetes and BPH are chronic medical conditions which complicate his care. His home medications were continued where appropriate Patient Problems: Active and Suspected Problems (Last Updated 10/30/19 @ 07:[address] Ade Finn MD) Acute on chronic congestive heart failure (Acute) Anasarca (Acute) - Physical Exam Vitals/I&O's: Vital Signs Temp Pulse Resp BP Pulse Ox 98.1 F 57 L 16 95/48 L 96 12/01/19 14:00 12/01/19 14:00 12/01/19 14:00 12/01/19 14:00 12/01/19 14:00 Oxygen Flow Rate (L/min) [ 3 AMBULATION with Oxygen] Oxygen Flow Rate (L/min) 3 Oxygen Delivery Method Nasal Cannula Weight: 339 lb 4.662 oz Body Mass Index (BMI) 57.9 Finger Stick Blood Glucose 479 Intake and Output for Last 24 Hours 11/29/19 11/30/19 12/01/19 23:59 23:59 23:59 Intake Total 1720 / 1720 1580 / 1580 785 / 785 Output Total 6300 / 6300 3350 / 3350 425 / 425 Balance -4580 / -4580 -1770 / -1770 360 / 360 General: Alert, Oriented x3, Cooperative, No apparent distress HEENT: Atraumatic, PERRLA, EOMI, Normocephalic Oral: Moist Mucosa Neck: Supple, No JVD Lungs: Clear to auscultation, Normal air movement, No rhonchi, No wheeze, No rales, Diminished Cardiovascular: Regular rate, Regular Rhythm, Normal S1, Normal S2, No murmurs Abdomen: Soft, Non Tender, Non-Distended, No Hepato-splenomegaly Extremities: Capillary Refill Less than 3 Seconds, Edema - 2+ pitting bilateral lower extremities Skin: Ulcer on the right anterior vasquez doing well, no signs of infection. Continue with local wound care Neurological: Neuro grossly intact, Sensory exam intact to light touch and pain Psych/Mental Status: Normal Affect, Appropriate Laboratory Results 11/30/19 16:22: POC Glucose 137 H 11/30/19 21:57: POC Glucose 139 H 12/01/19 06:05: PT 32.4 H, INR 3.2 12/01/19 06:05: Sodium 136, Potassium 3.1 L, Chloride 88 L, Carbon Dioxide > 45.0 H*, Anion Gap TNP, BUN 73 H, Creatinine 2.69 H, Estim Creat Clear Calc 27.90, Est GFR (MDRD) Af Amer 31 L, Est GFR (MDRD) Non-Af 26 L, BUN/Creatinine Ratio 27.1 H, Glucose 118 H, Calcium 9.1 12/01/19 08:11: POC Glucose 129 H 12/01/19 11:59: POC Glucose 136 H Current Medications Acetaminophen (Tylenol) 650 mg PO Q6H PRN PRN PRN Reason: Pain Score 1-10/10 Last Admin: 11/30/19 23:25 Dose: 650 mg Documented by: Acetazolamide (Diamox) 125 mg PO BID [facility] Last Admin: 12/01/19 08:19 Dose: 125 mg Documented by: Amiodarone HCl (Cordarone) 200 mg PO BIDCM [facility] Last Admin: 12/01/19 08:18 Dose: 200 mg Documented by: Atorvastatin Calcium (Lipitor) 20 mg PO QHS [facility] Last Admin: 11/30/19 22:01 Dose: 20 mg Documented by: Benzonatate (Tessalon Perle) 100 mg PO TID PRN PRN PRN Reason: COUGH Last Admin: 12/01/19 04:07 Dose: 100 mg Documented by: Bumetanide (Bumex) 1 mg PO BIDLX [facility] Last Admin: 12/01/19 08:19 Dose: 1 mg Documented by: Calamine/Phenol (Calmoseptine Ointment) 1 applic TOPICAL BID [facility]; Protocol Last Admin: 12/01/19 08:21 Dose: 1 applic Documented by: Guaifenesin (Robitussin) 10 ml PO Q4H PRN PRN PRN Reason: COUGH Last Admin: 12/01/19 04:07 Dose: 10 ml Documented by: Sodium Chloride () 250 mls @ 15 mls/hr IV .[id number] PRN PRN Reason: Saline Flush Sodium Chloride () 250 mls @ 15 mls/hr IV .[id number] PRN PRN Reason: Additional IVPB Infusion Last Infusion: 11/29/19 17:37 Dose: Infused Documented by: Insulin Glargine (Lantus (Bkc)) 15 units SC BID [facility] Last Admin: 12/01/19 08:22 Dose: 15 u Documented by: Insulin Human Lispro (Humalog Kwikpen (Bkc)) 5 unit SC LUNCH [facility] Last Admin: 12/01/19 12:01 Dose: 5 u Documented by: Insulin Human Lispro (Humalog Kwikpen (Bkc)) 7 unit SC BREAKFAST [facility] Last Admin: 12/01/19 08:21 Dose: 7 unit Documented by: Insulin Human Lispro (Humalog Kwikpen (Bkc)) 6 unit SC DINNER [facility] Last Admin: 11/30/19 16:24 Dose: 6 units Documented by: Metoprolol Succinate (Toprol Xl (Beta Rakesh)) 50 mg PO DAILY [facility] Last Admin: 12/01/19 09:01 Dose: 50 mg Documented by: [facility] Admin: 12/01/19 08:18 Dose: 1 tablet Documented by: Nystatin (Mycostatin Powder) 1 applic TOPICAL BID [facility]; Protocol Last Admin: 12/01/19 08:19 Dose: 1 applic Documented by: Potassium Chloride (K-Dur) [facility] Last Admin: 12/01/19 08:18 Dose: 60 meq Documented by: Sodium Chloride () 10 - 40 ml IV UD PRN PRN Reason: SALINE FLUSH Last Admin: 11/29/19 11:47 Dose: 10 ml Documented by: Tamsulosin HCl (Flomax) 0.4 mg PO DAILY [facility] Last Admin: 12/01/19 08:19 Dose: 0.4 mg Documented by: Warfarin Sodium (Jantoven) 3 mg PO DAILY@1700 [facility] Last Admin: 11/30/19 16:24 Dose: 3 mg Documented by: Discharge Activity: Return to Normal Activity Call your doctor if you observe: Fever of 101 or Higher, Shortness of breath, Dizziness, Fainting spells, Swelling in the ankles, Chest pain, Increased palpitations (irregular heartbeat) Home Medications: Medications to take at Discharge Atorvastatin Calcium 20 mg PO QHS 04/16/19 Insulin Glargine [Lantus SoloStar Pen] 40 units SUBCUT BID pen 04/28/19 Insulin Lispro [Humalog KwikPen] 5 unit SUBCUT LUNCH insuln.pen 04/28/19 Insulin Lispro [Humalog KwikPen] 6 unit SUBCUT DINNER insuln.pen 04/28/19 Insulin Lispro [Humalog KwikPen] 7 unit SUBCUT BREAKFAST insuln.pen 04/28/19 Insulin Lispro [Humalog KwikPen] See Protocol SUBCUT ACHS insuln.pen 04/28/19 Metoprolol(XL)Succ [Toprol Xl (Beta Rakesh)] 50 mg PO DAILY tab 04/28/19 Amiodarone HCl 200 mg PO BID 08/08/19 Multivitamin [Daily Multiple Vitamin] 1 ea PO DAILY 10/28/19 Tamsulosin HCl [Flomax] 0.4 mg PO DAILY #90 cap 07/22/20 Acetaminophen [Tylenol] 625 mg PO Q6H PRN PRN 11/21/19 Docusate Sodium [Colace] 100 mg PO DAILY PRN PRN 11/21/19 Melatonin 3 mg PO QHS PRN 11/21/19 Multivitamin with Minerals [Multiple Vitamin] 1 ea PO DAILY 11/21/19 Warfarin [Coumadin] 3 mg PO DAILY 11/21/19 AcetaAZOLAMIDE [Diamox] 125 mg PO BID #60 tab 12/01/19 Bumetanide [Bumex] 1 mg PO BIDLX #60 tab 12/01/19 Potassium Chloride [K-Dur] 60 meq PO BIDCM #180 tab 12/01/19 Following Prescriptions Were Given to Patient: Bumetanide [Bumex] 1 mg PO BIDLX #60 tab Transmission Status: Received by [facility] AcetaAZOLAMIDE [Diamox] 125 mg PO BID #60 tab Transmission Status: Received by [facility] Potassium Chloride [K-Dur] 60 meq PO BIDCM #180 tab Transmission Status: Received by [facility] Primary Care Physician: Francisco Alcazar MD [Primary Care Provider] - Please Follow Up With: Lm Wild NP-C When: 1-2 weeks Please Follow Up With: jessie ortiz When: 3-5 days Please Follow Up With: Ubaldo Acevedo PA When: 2-4 weeks Disposition: Home Minutes spent on discharge:: 35 Patient Condition:: Stable Medical Necessity - Tobacco Use Smoking Status: Never smoker Meaningful Use Info Meaningful Use Diagnoses (Choose all that apply): CHF - CHF ARUN/ARB ordered at discharge?: Yes Documented LVEF (%): 55 Inpatient E&M: [id number] Disch Hosp
--- NOTE | 2019-12-04 14:14 | CASEMGMT ---
Addendum entered by Norbert Payne 12/04/19 14:21: Call to [facility]. They are active with patient. 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 No answer, and no messaging with name identifier. Chrissie MUNIZ RN AC
== END 2019-12-01 15:08 | disposition home or self-care (01) | DRG 291 ==
LOC: ED 11-21 01:19 → PCU 11-21 01:45
PROVIDERS: Family Medicine; Hospitalist; Internal Medicine; Internal Medicine Nephrology; Physician Assistant; Student in an Organized Health Care Education/Training Program; Admitting Provider Family Medicine; Emergency Provider Emergency Medicine; PCP Family Medicine; Visit Provider Family Medicine
DX: I13.0 Hypertensive heart and chronic kidney disease with heart failure and stage 1 through stage 4 chronic kidney disease, or unspecified chronic kidney disease (principal); I50.33 Acute on chronic diastolic (congestive) heart failure; J96.01 Acute respiratory failure with hypoxia; I47.1 Supraventricular tachycardia; I48.92 Unspecified atrial flutter; J96.12 Chronic respiratory failure with hypercapnia; J96.11 Chronic respiratory failure with hypoxia; Z68.43 Body mass index [BMI] 50.0-59.9, adult; E87.1 Hypo-osmolality and hyponatremia; E87.3 Alkalosis; Q21.0 Ventricular septal defect; E66.01 Morbid (severe) obesity due to excess calories; I36.1 Nonrheumatic tricuspid (valve) insufficiency; G47.33 Obstructive sleep apnea (adult) (pediatric); I27.20 Pulmonary hypertension, unspecified; I44.0 Atrioventricular block, first degree; I45.10 Unspecified right bundle-branch block; I27.29 Other secondary pulmonary hypertension; I50.82 Biventricular heart failure; E11.22 Type 2 diabetes mellitus with diabetic chronic kidney disease; I48.0 Paroxysmal atrial fibrillation; I27.81 Cor pulmonale (chronic); N18.3 Chronic kidney disease, stage 3 (moderate); E78.5 Hyperlipidemia, unspecified; Z87.891 Personal history of nicotine dependence; Z87.74 Personal history of (corrected) congenital malformations of heart and circulatory system; Z79.4 Long term (current) use of insulin; Z79.01 Long term (current) use of anticoagulants; Z82.49 Family history of ischemic heart disease and other diseases of the circulatory system; Z82.3 Family history of stroke; Z99.2 Dependence on renal dialysis; Z83.3 Family history of diabetes mellitus; Z79.899 Other long term (current) drug therapy; I25.10 Atherosclerotic heart disease of native coronary artery without angina pectoris; E87.6 Hypokalemia; N40.0 Benign prostatic hyperplasia without lower urinary tract symptoms; R33.9 Retention of urine, unspecified; E11.69 Type 2 diabetes mellitus with other specified complication; E11.649 Type 2 diabetes mellitus with hypoglycemia without coma; D64.9 Anemia, unspecified; R79.1 Abnormal coagulation profile; T50.2X5A Adverse effect of carbonic-anhydrase inhibitors, benzothiadiazides and other diuretics, initial encounter
CPT/HCPCS: 36415; 36600; 71045; 71046; 80048; 81001; 82803; 82962; 83735; 83880; 84100; 84484; 85025; 85610; 87635; 93005; 93306; 94799; 97110; 97116; 97162; 97166; 97530; 97535; 97802; 97803; 99284; J7040; J7050; Q9957; A4216; J1940; U0003

== ENCOUNTER 2019-12-08 19:56 | Inpatient (IN) | payer MEDICARE, SELFPAY ==
[2019-12-01 11:33] VITALS: BMI 57.9
[2019-12-08 19:57] VITALS: BP 131/65; PULSE 62; RESP 18; TEMP 36.5; O2SAT 98; BMI 54.7
[2019-12-08 20:12] VITALS: O2SAT 97
--- NOTE | 2019-12-08 20:18 | RAD_ITS ---
STUDY: X-RAY CHEST REASON FOR EXAM: Male, 59 years old. SOB, HX OF CHF. TECHNIQUE: PA and lateral COMPARISON: None. FINDINGS: There is moderate pulmonary vascular congestion and small right pleural effusion and possible tiny left pleural effusion.. Heart is enlarged.. Normal mediastinum and kelsie. Normal visualized pulmonary arteries. Normal visualized aortic arch and descending thoracic aorta. Postop change status post median sternotomy and CABG. Dorsal spine demonstrates degenerative change Normal visualized ribs, clavicles, and shoulders. There is no demonstrated abnormality of the visualized soft tissue structures of the upper abdomen. RAD/Chest PA and Lateral IMPRESSION: Findings consistent with congestive failure and right pleural effusion with possible tiny left effusion Electronically Signed: Adonis Seals MD at 21:13 EDT , Service support ,
--- NOTE | 2019-12-08 20:18 | EKG12_ITS ---
Test Reason : PRE-OP Blood Pressure : / mmHG Vent. Rate : 059 BPM Atrial Rate : 059 BPM P-R Int : 224 ms QRS Dur : 152 ms QT Int : 450 ms P-R-T Axes : 020 143 085 degrees QTc Int : 445 ms Sinus bradycardia with 1st degree A-V block with Premature supraventricular complexes Right bundle branch block Abnormal ECG When compared with ECG of 08-DEC-2019 20:29, MANUAL COMPARISON REQUIRED, DATA IS UNCONFIRMED Confirmed by SCOTT HAMLIN, PHILLIP ([id number]), rewrite editor JAVIER GREEN ([id number]) on 12/14/2019 11:01:54 AM Referred By: DR HERNANDEZ Confirmed By:PHILLIP CHAVEZ MD
[2019-12-08 20:31] LABS: Absolute Lymphocyte Count 0.99 X10^3/uL (0.83-4.51); Absolute Neutrophil Count 5.7 X10^3/uL (2.0-7.7); Basophil# 0.02 X10^3/uL; Basophil% 0.3 % (0-1); Eosinophil# 0.14 X10^3/uL; Eosinophils% 1.8 % (0-5); Hematocrit 35.1 % (40-54); Hemoglobin 10.4 g/dL (13.0-16.5); Lymphocyte # 0.99 X10^3/ul (4.0); Lymphocyte % 12.4 % (19-41); Mean Corp Hgb Conc 29.6 g/dL (32-36); Mean Corpuscular Hgb 26.5 pg (27.0-32.0); Mean Corpuscular Volume 89.3 fL (80-94); Mean Platelet Vol. 9.3 fl (6.2-12.0); Monocyte# 1.08 X10^3/uL; Monocyte% 13.6 % (0-10); NRBC Flagged by Analyzer 0 % (0-5); Neutrophil # 5.67 X10^3/uL (2.7-7.7); Platelet Count 266 K/mm3 (150-450); RBC Distribution Width CV 18.9 % (11.6-14.6); RBC Distribution Width SD 61.5 fl (35.1-43.9); Red Blood Count 3.93 M/mm3 (4.6-6.2)
[2019-12-08 20:47] LABS: Prothrombin Time (Protime)PT. 35.9 SECONDS (11.7-14.9)
[2019-12-08 20:49] LABS: ALB/GLOB Ratio 0.8 RATIO (0.9-2.4); AST(SGOT) 23 U/L (15-37); Alanine Aminotransfer ALT/SGPT 25 U/L (16-61); Albumin, Serum 3.1 g/dL (3.2-5.0); Alkaline Phosphatase 167 U/L (45-117); Anion Gap 5 (5-15); BUN 38 mg/dL (7-18); BUN/Creat Ratio 19.7 RATIO (10-20); Calcium,Total 8.5 mg/dL (8.5-10.1); Chloride 104 mmol/L (98-107); Creatinine, Serum 1.93 mg/dL (0.70-1.30); EST Glomerular Filtration Rate 38 mL/min (>60); Est Glom Filt Rate - Afr Amer 46 mL/min (>60); Estimated Creatinine Clearance 38.89 ml/min; Globulin 3.9 g/dL (2.2-4.2); Glucose 121 mg/dL (74-106); Potassium 5.1 mmol/L (3.5-5.1); Sodium Level 139 mmol/L (136-145)
[2019-12-08 20:52] LABS: International Normalized Ratio 3.6
[2019-12-08 20:54] LABS: Lactic Acid 1.1 mmol/L (0.4-1.9)
[2019-12-08 20:58] LABS: BNP,B-Type NATRIURETIC PEPTIDE 231.3 pg/mL (0-100)
[2019-12-08 21:00] VITALS: BP 103/69; PULSE 57; RESP 19; TEMP 36.3; O2SAT 97
--- NOTE | 2019-12-08 21:49 | ED.VISSUMM ---
- ER Visit Summary Date of Service: 12/08/19 Chief Complaint: CHF History of Present Illness: The patient is a [address] Khanna, Dr. Alcazar, and Dr. Arevalo. He was admitted to the hospital from November 19 to November 30. He reports that he has had shortness of breath that has gradually increased since November 30. States he is had a 15 to 16 pound weight gain since that time as well. Patient reports his shortness of breath is severe if he exerts himself or he lays flat. Is relieved by rest. He does report he is had a cough for the past 3 weeks productive of yellow sputum with streaks of blood that began today. He denies any fever or chills. He denies any chest pain. He does complain of generalized weakness. Denies any sick contacts or possible exposure to coronavirus. Physical Examination: Vitals: 97.7, 131/65, 62, 18, 98% on 3 L which is his home O2. General: Well-nourished and well-developed. Head: Normocephalic atraumatic. Neck: Supple, no lymphadenopathy. No JVD. Nontender. Cardiovascular: Regular rate and rhythm. No murmurs. Heart sounds are distant. Respiratory: No respiratory distress. Crackles at the bases bilaterally. Abdominal: Soft, nontender, nondistended, normal bowel sounds. No guarding, rebound, or peritoneal signs. Back: Nontender. Extremities: Nontender, 3+ pitting edema of his lower extremities bilaterally that extends up over his lower abdomen. He has a superficial ulcer that is approximate 4 cm in diameter the anterior surface of his right leg. There is no erythema, warmth, or any evidence of infection. Skin: Normal color, no rash. Neurologic: Alert and oriented ?3. Cranial nerves II through XII are intact. Normal strength and sensation. Psych: Normal affect. Test Results: EKG is sinus bradycardia with first-degree AV block rate of 57. He does have artifact in the limb leads. Is unchanged from the 10th of this month. Troponin is negative. BNP is 231.3. This has ranged between 62?2 133.6 and 2020. LFTs show an albumin 3.1, total bili of 1.3, alk phos 167. INR is 3.6. Chem-7 shows a glucose 121, BUN of 38, creatinine 1.93. Creatinine has ranged between 1.84?5.07 and 2020. CBC shows an H&H 10.4 and 35.1, segmented for 71, sites of 12, monocytes 14. Clinical Impression(s) from Imaging Studies Chest X-Ray 12/08/19 20:18 IMPRESSION: Findings consistent with congestive failure and right pleural effusion with possible tiny left effusion Electronically Signed: Adonis Seals MD at 21:13 EDT , Service support , Emergency Department Course and Treatment: Patient was given a dose of Lasix IV. His pulse ox remained in the high 90s on his 3 L home O2. Treatment Plan: Patient was discussed with Dr. Pate. He will be admitted to the hospital for further evaluation and treatment. Disposition: Admitted in stable condition. Impression: 1. CHF. 2. Right pleural effusion. 3. Chronic renal insufficiency. 4. Anasarca. 5. Anemia. 6. Coumadin coagulopathy. This note was generated with [employer] software. It may contain incorrect words, spelling, and punctuation that were not noted in review of the chart prior to signing ED Disposition - Plan for ED Patient: Referrals: Francisco Alcazar MD [Primary Care Provider] -
[2019-12-08 22:00] VITALS: BP 97/48; PULSE 56; RESP 20; TEMP 36.5; O2SAT 98
--- NOTE | 2019-12-08 22:01 | PCM.HP.STD ---
Problem List (1) Acute on chronic congestive heart failure with right ventricular diastolic dysfunction Status: Acute (2) Chronic kidney disease (CKD) Status: Chronic (3) Acute on chronic congestive heart failure Status: Acute Qualifiers: Heart failure type: right-sided Qualified Code(s): I50.813 - Acute on chronic right heart failure (4) Anasarca Status: Acute (5) CHF (congestive heart failure) Status: Chronic Qualifiers: Heart failure type: diastolic Heart failure chronicity: acute on chronic Qualified Code(s): I50.33 - Acute on chronic diastolic (congestive) heart failure (6) Supratherapeutic INR Status: Acute (7) Hyperkalemia Status: Acute (8) Morbid obesity with BMI of 50.0-59.9, adult Status: Chronic (9) FPC current use of anticoagulant Status: Chronic (10) History of right and left heart catheterization Status: Chronic Comment: Done s/p VSD repair Per Dr. Sherif Espinoza @ [facility]: normal coronaries, mildly elevated PA pressures (11) Paroxysmal SVT (supraventricular tachycardia) Status: Chronic (12) Atrial fibrillation Status: Chronic Qualifiers: Atrial fibrillation type: unspecified Qualified Code(s): I48.91 - Unspecified atrial fibrillation (13) History of atrial flutter Status: Chronic Comment: Attempted atrial flutter ablation @ [facility] X 1 in 1997 (unsuccessful), followed by Atrial flutter ablations X [address] Paul at [facility] in Apr and October of 1998 (14) Chronic diastolic congestive heart failure Status: Chronic (15) History of patent ductus arteriosus as a child Status: Chronic Comment: Repaired at age 3 years, done @ [facility] (16) Nonrheumatic tricuspid valve regurgitation Status: Chronic Comment: Leaflet used for VSD repair in past (17) History of ventricular septal defect repair Status: Chronic Comment: 1977 (pt approx age 18) using Dacron patch, done at [facility] (18) Hyperlipidemia Status: Chronic Qualifiers: Hyperlipidemia type: unspecified Qualified Code(s): E78.5 - Hyperlipidemia, unspecified (19) Hypertension Status: Chronic Qualifiers: Hypertension type: essential hypertension Qualified Code(s): I10 - Essential (primary) hypertension (20) Diabetes mellitus, type II Status: Chronic Qualifiers: Diabetes mellitus alf insulin use: with exterminator helper termite use Diabetes mellitus complication status: with other specified complication Qualified Code(s): E11.69 - Type 2 diabetes mellitus with other specified complication; Z79.4 - rodent exterminator (current) use of insulin (21) History of radiofrequency ablation procedure for cardiac arrhythmia Status: Chronic Comment: Attempted atrial flutter ablation @ [facility] X 1 (unsuccessful), followed by Atrial flutter ablations X [address] Paul at [facility] in Apr and October of 1998 (22) Pulmonary hypertension, moderate to severe Status: Chronic Comment: PASP 69 mmHg in September 2013 (23) LASHAWN (obstructive sleep apnea) Status: Chronic History of Present Illness Date of Admission: 12/08/19 Chief Complaint: Shortness of breath for last 4 days, progressively worsening The patient is a 59 year old M with multiple comorbidities and recurrent admission for CHF exacerbation, last one between November 19 December 01, 2019 came to ER with progressively worsening of shortness of breath since November 30. Patient gained about 15 to 16 pounds since discharge. Patient further said he did well when he was on dialysis in June/July through right subclavian temporary dialysis catheter which was removed at that time. Patient denies any fever or chills. He also has cough which is intermittent, acute on chronic. Initially sputum was yellow but which has turned into reddish/hemoptysis for last 1 to 2 days. INR is supratherapeutic 3.6. Patient also complained of chest pain/tightness, midsternal, localized, 3-5/10 in intensity without exacerbating, relieving respirating factor. Patient denies history of smoking, emphysema or asthma but has history of severe pulmonary hypertension. [] Triage vitals shows heart rate 62, blood pressure 131/65, pulse ox 98% on room air. Chest x-ray done in ER was independently reviewed and shows bilateral venous congestion, bilateral small pleural effusion. EKG sinus bradycardia with first-degree AV block, PACs with chronic RBBB. Patient was given Lasix 40 mg IV in ER and admitted to PCU. Past Medical History Past Medical History (Chronic Problems): Chronic Problems (Last Updated 10/30/19 @ 07:[address] Ade Finn MD) Chronic kidney disease (CKD) (Chronic) CHF (congestive heart failure) (Chronic) Morbid obesity with BMI of 50.0-59.9, adult (Chronic) FPC current use of anticoagulant (Chronic) History of right and left heart catheterization (Chronic 02/18/98) Done s/p VSD repair Per Dr. Sherif Espinoza @ [facility]: normal coronaries, mildly elevated PA pressures Paroxysmal SVT (supraventricular tachycardia) (Chronic) Atrial fibrillation (Chronic) History of atrial flutter (Chronic) Attempted atrial flutter ablation @ [facility] X 1 in 1997 (unsuccessful), followed by Atrial flutter ablations X [address] Paul at [facility] in Apr and October of 1998 Chronic diastolic congestive heart failure (Chronic) History of patent ductus arteriosus as a child (Chronic) Repaired at age 3 years, done @ [facility] Nonrheumatic tricuspid valve regurgitation (Chronic) Leaflet used for VSD repair in past History of ventricular septal defect repair (Chronic) 1977 (pt approx age 18) using Dacron patch, done at [facility] Hyperlipidemia (Chronic) Hypertension (Chronic) Diabetes mellitus, type II (Chronic) History of radiofrequency ablation procedure for cardiac arrhythmia (Chronic) Attempted atrial flutter ablation @ [facility] X 1 (unsuccessful), followed by Atrial flutter ablations X [address] Paul at [facility] in Apr and October of 1998 Pulmonary hypertension, moderate to severe (Chronic) PASP 69 mmHg in September 2013 LASHAWN (obstructive sleep apnea) (Chronic) Medical History: Medical History (Last Updated 10/30/19 @ 07:[address] Ade Finn MD) rodent exterminator current use of anticoagulant (Chronic) Z79.01 Paroxysmal SVT (supraventricular tachycardia) (Chronic) I47.1 Atrial fibrillation (Chronic) I48.91 History of atrial flutter (Chronic) Z86.79 Attempted atrial flutter ablation @ [facility] X 1 in 1997 (unsuccessful), followed by Atrial flutter ablations X [address] Paul at [facility] in Apr and October of 1998 Chronic diastolic congestive heart failure (Chronic) I50.32 History of patent ductus arteriosus as a child (Chronic) Z87.74 Repaired at age 3 years, done @ [facility] Nonrheumatic tricuspid valve regurgitation (Chronic) I36.1 Leaflet used for VSD repair in past Hyperlipidemia (Chronic) E78.5 Hypertension (Chronic) I10 Diabetes mellitus, type II (Chronic) E11.9 Pulmonary hypertension, moderate to severe (Chronic) I27.2 PASP 69 mmHg in September 2013 LASHAWN (obstructive sleep apnea) (Chronic) G47.33 History of arm fracture Z87.81 X2 History of paroxysmal supraventricular tachycardia (Inactive) Z86.79 Allergies albuterol Adverse Reaction (Verified 12/08/19 20:00) NEEDS FOLLOW-UP increased heart rate. amoxicillin trihydrate [From Augmentin] Adverse Reaction (Verified 12/08/19 20:00) Diarrhea indomethacin [From Indocin] Adverse Reaction (Verified 12/08/19 20:00) Nausea potassium clavulanate [From Augmentin] Adverse Reaction (Verified 12/08/19 20:00) Diarrhea Home Medications: Ambulatory Orders Medication Instructions Recorded Atorvastatin Calcium 20 mg PO QHS 04/16/19 Insulin Glargine [Lantus SoloStar 40 units SUBCUT BID pen 04/28/19 Pen] Insulin Lispro [Humalog KwikPen] 5 unit SUBCUT LUNCH insuln.pen 04/28/19 Insulin Lispro [Humalog KwikPen] 6 unit SUBCUT DINNER insuln.pen 04/28/19 Insulin Lispro [Humalog KwikPen] 7 unit SUBCUT BREAKFAST insuln.pen 04/28/19 Insulin Lispro [Humalog KwikPen] See Protocol SUBCUT ACHS 04/28/19 insuln.pen Metoprolol(XL)Succ [Toprol Xl 50 mg PO DAILY tab 04/28/19 (Beta Rakesh)] Amiodarone HCl 200 mg PO BID 08/08/19 Multivitamin [Daily Multiple 1 ea PO DAILY 10/28/19 Vitamin] Tamsulosin HCl [Flomax] 0.4 mg PO DAILY #90 cap 11/01/19 Acetaminophen [Tylenol] 625 mg PO Q6H PRN PRN 11/21/19 Docusate Sodium [Colace] 100 mg PO DAILY PRN PRN 11/21/19 Melatonin 3 mg PO QHS PRN 11/21/19 Multivitamin with Minerals 1 ea PO DAILY 11/21/19 [Multiple Vitamin] Warfarin [Coumadin] 3 mg PO DAILY 11/21/19 AcetaAZOLAMIDE [Diamox] 125 mg PO BID #60 tab 12/01/19 Bumetanide [Bumex] 1 mg PO BIDLX #60 tab 12/01/19 Potassium Chloride [K-Dur] 60 meq PO BIDCM #180 tab 12/01/19 Surgical History: Surgical History (Last Reviewed 10/28/19 @ 03:[address] Fredi Cobb DO) History of right and left heart catheterization (Chronic) Onset Date: 02/18/98 Z98.890 Done s/p VSD repair Per Dr. Sherif Espinoza @ [facility]: normal coronaries, mildly elevated PA pressures History of ventricular septal defect repair (Chronic) Z87.74 1977 (pt approx age 18) using Dacron patch, done at [facility] History of radiofrequency ablation procedure for cardiac arrhythmia (Chronic) Z98.890 Attempted atrial flutter ablation @ [facility] X 1 (unsuccessful), followed by Atrial flutter ablations X [address] Paul at [facility] in Apr and October of 1998 Surgical History: - Psychiatric History: No pertinent psych hx Smoking Status: Never smoker - *Family History Maternal Family History: Family History (Last Reviewed 10/28/19 @ 03:[address] Fredi Cobb DO) Mother Hypertension Diabetes CVA (cerebral vascular accident) Valvular heart disease Father CVA (cerebral vascular accident) Hypertension Hyperlipidemia History Items: Diabetes, High Cholesterol, Heart Disease, Hypertension, Stroke, - - Mother with history of concurrent valvular heart disease. Paternal Family History: Family History (Last Reviewed 10/28/19 @ 03:[address] Fredi Cobb, ) Mother Hypertension Diabetes CVA (cerebral vascular accident) Valvular heart disease Father CVA (cerebral vascular accident) Hypertension Hyperlipidemia History Items: High Cholesterol, Heart Disease, Hypertension, Stroke Review of Systems Constitutional: Reports: Weakness, Fatigue. Denies: Chills, Fever, Weight Change HEENT: Denies: Head Aches, Sinus Congestion, Sinus Drainage Cardiovascular: Reports: Chest Pain. Denies: Palpitations Respiratory: Reports: Cough, Hemoptysis, Pleuritic Pain, Shortness of Breath, Shortness of breath at rest, Shortness of breath upon exertion, Sputum production Gastrointestinal: Reports: - - Abdominal distention. Denies: Abdominal Pain, Nausea, Vomiting Genitourinary: Denies: Dysuria, Frequency Musculoskeletal: Reports: Back Pain, Joint Pain. Denies: Joint Tenderness Skin: Reports: Wounds - Right lower leg superficial ulcer after rupture of blister. Denies: Rash Neurological: Reports: Balance problems, Incoordination. Denies: Focal weakness, Numbness, Tingling Psychiatric: Reports: Anxiety. Denies: Depression, Homicidal Ideations, Suicidal Ideations Hematologic/ Lymphatic: Denies: Easy Bruising, Easy Bleeding VTE Information - Inpt Only VTE Present on Admission: No VTE Mechan Device Prophylaxis: None VTE Pharm Prophylaxis ordered?: No Reason prophylaxis not ordered:: Procedure Not Indicated - Patient already on Coumadin, INR supratherapeutic. Patient Problems: Active and Suspected Problems (Last Updated 10/30/19 @ 07:[address] Ade Finn MD) Acute on chronic congestive heart failure with right ventricular diastolic dysfunction (Acute) - Physical Exam Vitals/I&O's: Vital Signs Temp Pulse Resp BP Pulse Ox 97.7 F L 62 18 131/65 H 98 12/08/19 19:57 12/08/19 19:57 12/08/19 19:57 12/08/19 19:57 12/08/19 19:57 Oxygen Flow Rate (L/min) 3 Oxygen Delivery Method Nasal Cannula Weight: 360 lb Body Mass Index (BMI) 54.7 Finger Stick Blood Glucose 479 General: Alert, Oriented x3, Cooperative, - - Morbid obesity HEENT: Atraumatic, PERRLA, EOMI, Normocephalic Oral: Dry Mucosa, - - Thick and white neck. Neck: Supple, Negative Carotid Bruits, JVD, Bilateral - JVD elevated Lungs: No rhonchi, No wheeze, No rales, Diminished - Air entry severely diminished bilaterally. Cardiovascular: Normal S1, Normal S2, No murmurs, Bradycardic, Irregular Rate - With PACs, - - Heart sounds S1, S2 low intensity Abdomen: Bowel Sounds Present, Soft, Non Tender, Hypoactive Bowel Sounds, Distended, - - Ascites Extremities: Capillary Refill Less than 3 Seconds, Edema - Bilateral leg edema Skin: Ulcer/ Wound - Superficial right lower leg ulcer about 3 cm, circular in shape. Chronic, started after rupture of blister. Musculoskeletal: No Tenderness to Palpation of Joints or Extremities, Arthritic Changes Neurological: Cranial nerves II-XII grossly intact, Deep Tendon Reflexes 2+/4 and Symmetrical, Neuro grossly intact Psych/Mental Status: Normal Affect, Appropriate Laboratory Results 12/08/19 20:20: WBC 8.0, RBC 3.93 L, Hgb 10.4 L, Hct 35.1 L, MCV 89.3, MCH 26.5 L, MCHC 29.6 L, RDW Std Deviation 61.5 H, RDW Coeff of Janiya 18.9 H, Plt Count 266, MPV 9.3, Immature Gran % (Auto) 0.900, Neut % (Auto) 71.0 H, Lymph % (Auto) 12.4 L, [place] % (Auto) 13.6 H, Eos % (Auto) 1.8, Baso % (Auto) 0.3, Absolute Neuts (auto) 5.7, Absolute Lymphs (auto) 0.99, Nucleated RBC % 0 12/08/19 20:20: PT 35.9 H, INR 3.6 H* 12/08/19 20:20: Sodium 139, Potassium 5.1, Chloride 104, Carbon Dioxide 30.0, Anion Gap 5, BUN 38 H, Creatinine 1.93 H, Estim Creat Clear Calc 38.89, Est GFR (MDRD) Af Amer 46 L, Est GFR (MDRD) Non-Af 38 L, BUN/Creatinine Ratio 19.7, Glucose 121 H, Calcium 8.5, Total Bilirubin 1.30 H, AST 23, ALT 25, Alkaline Phosphatase 167 H, Troponin I < 0.015, Total Protein 7.0, Albumin 3.1 L, Globulin 3.9, Albumin/Globulin Ratio 0.8 L 12/08/19 20:20: Lactic Acid 1.1 12/08/19 20:20: B-Natriuretic Peptide 231.3 H Assessment/Plan All Active Problems (Last Updated 10/30/19 @ 07:[address] Ade Finn MD) Acute on chronic congestive heart failure (Acute) Anasarca (Acute) Acute on chronic congestive heart failure with right ventricular diastolic dysfunction (Acute) Supratherapeutic INR (Acute) Hyperkalemia (Acute) The patient is a 59 year old M with multiple comorbidities and recurrent admission for CHF exacerbation, last one between November 19 December 01, 2019 came to ER with progressively worsening of shortness of breath since November 30, weight gain, midsternal chest pain consistent with CHF exacerbation. Chest x-ray done in ER was independently reviewed and shows bilateral venous congestion, bilateral small pleural effusion. EKG sinus bradycardia with first-degree AV block, PACs with chronic RBBB. Patient was given Lasix 40 mg IV in ER and admitted to PCU. 1. Acute on chronic diastolic heart failure, biventricular with right ventricular dilatation, and severe pulmonary hypertension with anasarca, bilateral lower extremity edema, ascites, bilateral small pleural effusion: Patient is being admitted in PCU if COVID PCR is negative. Started on Lasix infusion drip, 10 mg/h. CHF core measures including monitor intake and output, daily weight monitoring, fluid restriction 1500 mL and [place] wrap bandage. Patient had recent echo as mentioned below ECHO 11/21/2019 Interpretation Summary Grossly normal left ventricular size, wall motion, and systolic function. The estimated ejection fraction is 55 %. Moderately dilated right ventricle. Moderate global right ventricular systolic dysfunction. Right ventricular systolic pressure estimated to be 71 mmHg compatible with severe pulmonary hypertension. Unable to assess diastolic dysfunction. Comment: The atrial septum and ventricular septum are not well visualized. Continue amiodarone, potassium supplement and metoprolol. 2. Atypical chest pain: Cycle cardiac enzymes. No significant ST-T changes as compared to previous EKG 3. Paroxysmal A. fib/atrial flutter status post radiofrequency ablation, history of PAD and VSD repair: Currently patient is in sinus rhythm. INR supratherapeutic 3.6. Coumadin held. Monitor INR daily and resume once INR is 2.8 or less 4. CKD stage III: Patient stated he did well on dialysis in July 2019. Agreeable for dialysis. 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 Patient also has history of hypokalemia, contraction metabolic alkalosis. Monitor kidney function and electrolytes and supplement electrolytes. 5. Diabetes mellitus type 2: Home dose of Humalog insulin reviewed. Lantus dose decreased to 30 unit q. twice daily. Accu-Chek before meals and at bedtime and titrate the dose of insulin accordingly. 6. Hypertension, dyslipidemia, obstructive sleep apnea and morbid obesity: Multiple comorbidities complicates the present care and expect difficult and delay recovery. CPAP at night at 8 cm of water 7. DVT prophylaxis: INR supratherapeutic as mentioned above Living will/advanced directive/end of life care: Patient does not have living will or advanced directive. His Ms. Zina Torres is power of disability attorney for health. After discussion of procedures involved with full code, DNR CC arrest and DNR CC, the patient and his opted for full code. Patient does not want artificial life support including intubation, tube feed, ventilator and/chest compression, central venous catheter, vasopressor and DC shock if needed Total time spent in [id number] encounter in discussion of advanced directive 16 minutes. Clinical Impression(s) from Imaging Studies Chest X-Ray 12/08/19 20:18 IMPRESSION: Findings consistent with congestive failure and right pleural effusion with possible tiny left effusion Inpatient E&M: 91415 Init Hosp L3 Procedures: 97197 Advncd Care Plan 30 Min
[2019-12-08] MEDS: Furosemide 40 MG/4 ML Vial IV (22:30)
[2019-12-08 23:00] VITALS: BP 103/69; BP 99/51; PULSE 57; PULSE 61; RESP 20; TEMP 36.3; O2SAT 97; O2SAT 99
[2019-12-08 23:28] LABS: Probe Check PASS; Specimen Processing Control PASS
[2019-12-09] VITALS (16 sets, daily range): BP systolic 101–130; BP diastolic 57–74; PULSE 55–66; RESP 17–20; TEMP 36.4–36.9; O2SAT 94–100; BMI 55.0; BMI 55.1
[2019-12-09 00:50] LABS: Magnesium 2.8 mg/dL (1.6-2.6)
[2019-12-09] MEDS: Furosemide 500 MG in Empty Viaflex 50 mL 1 EACH CONT INF ×2 (01:47→12:22)
[2019-12-09] MEDS: 0.9% Saline Lock 10 ML Syringe IV (01:48)
[2019-12-09 06:13] LABS: Absolute Lymphocyte Count 0.98 X10^3/uL (0.83-4.51); Absolute Neutrophil Count 4.9 X10^3/uL (2.0-7.7); Basophil# 0.03 X10^3/uL; Basophil% 0.4 % (0-1); Eosinophil# 0.14 X10^3/uL; Hematocrit 35.1 % (40-54); Hemoglobin 10.3 g/dL (13.0-16.5); Lymphocyte # 0.98 X10^3/ul (4.0); Lymphocyte % 13.8 % (19-41); Mean Corp Hgb Conc 29.3 g/dL (32-36); Mean Corpuscular Hgb 26.3 pg (27.0-32.0); Mean Corpuscular Volume 89.5 fL (80-94); Mean Platelet Vol. 9.3 fl (6.2-12.0); Monocyte# 1.02 X10^3/uL; Monocyte% 14.4 % (0-10); NRBC Flagged by Analyzer 0.3 % (0-5); Neutrophil # 4.86 X10^3/uL (2.7-7.7); Neutrophil % 68.7 % (47-70); Platelet Count 256 K/mm3 (150-450); RBC Distribution Width SD 61.5 fl (35.1-43.9); Red Blood Count 3.92 M/mm3 (4.6-6.2); White Blood Count 7.1 K/mm3 (4.4-11.0)
[2019-12-09 06:27] LABS: Prothrombin Time (Protime)PT. 34.6 SECONDS (11.7-14.9)
[2019-12-09 06:28] LABS: International Normalized Ratio 3.5
[2019-12-09 06:41] LABS: Anion Gap 5 (5-15); BUN 41 mg/dL (7-18); BUN/Creat Ratio 19.9 RATIO (10-20); Calcium,Total 8.5 mg/dL (8.5-10.1); Chloride 101 mmol/L (98-107); Cholesterol 95 mg/dL (200); Creatinine, Serum 2.06 mg/dL (0.70-1.30); EST Glomerular Filtration Rate 35 mL/min (>60); Est Glom Filt Rate - Afr Amer 42 mL/min (>60); Estimated Creatinine Clearance 36.43 ml/min; Glucose 109 mg/dL (74-106); High Density Lipoprotein 38 mg/dL; Potassium 4.5 mmol/L (3.5-5.1); Sodium Level 137 mmol/L (136-145); Triglycerides 71 mg/dL; Very Low Density Lipoprotein 14 mg/dL (5-40)
[2019-12-09] MEDS: Insulin Lispro 100 UNIT/ML INSULN.PEN SC ×2 (09:01→12:24)
[2019-12-09] MEDS: Glucerna Shake 120 ML LIQUID 60 ML PO (09:02)
[2019-12-09] MEDS: Insulin Lispro 100 UNIT/ML INSULN.PEN 7 UNIT SC (09:02)
[2019-12-09] MEDS: AcetaZOLAMIDE 250 MG Tablet 125 MG PO ×2 (09:03→21:34)
[2019-12-09] MEDS: Tamsulosin HCl 0.4 MG Capsule PO (09:03)
[2019-12-09] MEDS: Amiodarone 200 MG Tablet PO ×2 (09:03→21:34)
[2019-12-09] MEDS: Metoprolol(XL)Succ 50 MG Tablet PO (09:04)
--- NOTE | 2019-12-09 09:55 | PCM.PN.HOSP ---
Patient Problems: Active and Suspected Problems (Last Updated 10/30/19 @ 07:[address] Ade Finn MD) Acute on chronic congestive heart failure with right ventricular diastolic dysfunction (Acute) Subjective: Pt states that his breathing is a bit better but he is still not good. States that he has thought about palliative care and is beginning to think that it may be a good idea. Interested in f/u at the intensive heart failure clinic at [facility] and we can give that referral at d/c. States that he has been compliant with his fluid restriction and is weighing himself daily. States he did take an extra dose of a diuretic but unable to tell me what he took. Vitals/I&O's: Vital Signs Temp Pulse Resp BP Pulse Ox 98.2 F 61 17 130/70 H 94 12/09/19 08:44 12/09/19 09:04 12/09/19 08:44 12/09/19 08:44 12/09/19 08:44 Oxygen Flow Rate (L/min) 3 Oxygen Delivery Method Nasal Cannula Weight: 164.4 kg Body Mass Index (BMI) 55.0 Finger Stick Blood Glucose 479 Intake and Output for Last 24 Hours 12/07/19 12/08/19 12/09/19 23:59 23:59 23:59 Intake Total 200 / 200 Balance 200 / 200 General: Alert, Oriented x3, Cooperative, No apparent distress, Well developed, Well nourished, - - MO WM sitting up in a chair, slight increased WOB, looks tired HEENT: Atraumatic, PERRLA, EOMI, Normocephalic, EAC Clear Oral: Moist Mucosa, No Gingival or Mucosal Lesions/ Ulcerations Neck: Supple, No Nodes, Trachea Midline, Thyroid Normal Size and Texture, JVD, Bilateral Lungs: Rales - distal 1/2 of lung franco Cardiovascular: Regular Rhythm, Normal S1, Normal S2, No murmurs, No Ectopic Activity, Bradycardic, No rub noted, No Gallop Abdomen: Bowel Sounds Present, Soft, Non Tender, Non-Distended, Obese, - - anasarca Extremities: No clubbing, No cyanosis, Edema - 3+ pitting Skin: No rashes, No breakdown Musculoskeletal: No Tenderness to Palpation of Joints or Extremities, No Muscle Wasting Lymphatic: No Cervical, Supraclavicular, or Inguinal Adenopathy Neurological: Cranial nerves II-XII grossly intact, Neuro grossly intact Psych/Mental Status: Normal Affect, Appropriate, Alert and oriented to time, place, person, mood and affect Laboratory Results 12/08/19 20:20: WBC 8.0, RBC 3.93 L, Hgb 10.4 L, Hct 35.1 L, MCV 89.3, MCH 26.5 L, MCHC 29.6 L, RDW Std Deviation 61.5 H, RDW Coeff of Janiya 18.9 H, Plt Count 266, MPV 9.3, Immature Gran % (Auto) 0.900, Neut % (Auto) 71.0 H, Lymph % (Auto) 12.4 L, [place] % (Auto) 13.6 H, Eos % (Auto) 1.8, Baso % (Auto) 0.3, Absolute Neuts (auto) 5.7, Absolute Lymphs (auto) 0.99, Nucleated RBC % 0 12/08/19 20:20: PT 35.9 H, INR 3.6 H* 12/08/19 20:20: Sodium 139, Potassium 5.1, Chloride 104, Carbon Dioxide 30.0, Anion Gap 5, BUN 38 H, Creatinine 1.93 H, Estim Creat Clear Calc 38.89, Est GFR (MDRD) Af Amer 46 L, Est GFR (MDRD) Non-Af 38 L, BUN/Creatinine Ratio 19.7, Glucose 121 H, Calcium 8.5, Total Bilirubin 1.30 H, AST 23, ALT 25, Alkaline Phosphatase 167 H, Troponin I < 0.015, Total Protein 7.0, Albumin 3.1 L, Globulin 3.9, Albumin/Globulin Ratio 0.8 L 12/08/19 20:20: Lactic Acid 1.1 12/08/19 20:20: B-Natriuretic Peptide 231.3 H 12/08/19 20:20: Magnesium 2.8 H 12/08/19 22:30: COVID-19 ([facility]) Negative 12/09/19 03:15: Troponin I < 0.015 12/09/19 06:00: WBC 7.1, RBC 3.92 L, Hgb 10.3 L, Hct 35.1 L, MCV 89.5, MCH 26.3 L, MCHC 29.3 L, RDW Std Deviation 61.5 H, RDW Coeff of Janiya 19.0 H, Plt Count 256, MPV 9.3, Immature Gran % (Auto) 0.700, Neut % (Auto) 68.7, Lymph % (Auto) 13.8 L, [place] % (Auto) 14.4 H, Eos % (Auto) 2.0, Baso % (Auto) 0.4, Absolute Neuts (auto) 4.9, Absolute Lymphs (auto) 0.98, Nucleated RBC % 0.3 12/09/19 06:00: PT 34.6 H, INR 3.5 H* 12/09/19 06:00: Sodium 137, Potassium 4.5, Chloride 101, Carbon Dioxide 31.0, Anion Gap 5, BUN 41 H, Creatinine 2.06 H, Estim Creat Clear Calc 36.43, Est GFR (MDRD) Af Amer 42 L, Est GFR (MDRD) Non-Af 35 L, BUN/Creatinine Ratio 19.9, Glucose 109 H, Calcium 8.5, Troponin I < 0.015, Triglycerides 71, Cholesterol 95, LDL Cholesterol 43, VLDL Cholesterol 14, HDL Cholesterol 38 L 12/09/19 08:11: Troponin I < 0.015 Current Medications Acetaminophen (Tylenol) 650 mg PO Q6H PRN PRN PRN Reason: Pain Score 1-10/Temp > 100.7 F Acetazolamide (Diamox) 125 mg PO BID [facility] Last Admin: 12/09/19 09:03 Dose: 125 mg Documented by: Al Hydroxide/Mg Hydroxide (Mylanta Ii) 30 ml PO Q6H PRN PRN PRN Reason: Gastric Burning Amiodarone HCl (Cordarone) 200 mg PO BID [facility] Last Admin: 12/09/19 09:03 Dose: 200 mg Documented by: Atorvastatin Calcium (Lipitor) 20 mg PO QHS [facility] Furosemide 500 mg/ N/A 50 mls @ 1 mls/hr CONT INF .Q50H [facility] Last Admin: 12/09/19 01:47 Dose: 10 mg/hr, 1 mls/hr Documented by: Insulin Glargine (Lantus (Bk)) 30 units SC BID [facility] Last Admin: 12/09/19 09:03 Dose: 30 units Documented by: Insulin Human Lispro (Humalog Kwikpen (Bk)) 0 unit SC ACHS [facility]; Protocol Last Admin: 12/09/19 09:01 Dose: 3 units Documented by: Insulin Human Lispro (Humalog Kwikpen (Bk)) 7 unit SC BREAKFAST [facility] Last Admin: 12/09/19 09:02 Dose: 7 units Documented by: Insulin Human Lispro (Humalog Kwikpen (Bk)) 6 unit SC DINNER [facility] Insulin Human Lispro (Humalog Kwikpen (Bk)) 5 unit SC LUNCH [facility] Melatonin (Melatonin) 3 mg PO QHS PRN PRN PRN Reason: SLEEP Metoprolol Succinate (Toprol Xl (Beta Rakesh)) 50 mg PO DAILY [facility] Last Admin: 12/09/19 09:04 Dose: 50 mg Documented by: Morphine Sulfate () 2 mg IV Q3H PRN PRN PRN Reason: Pain Score 6-10/10 Nitroglycerin (Nitrostat) 0.4 mg SUBLINGUAL Q5M PRN PRN Reason: CARDIAC/CHEST PAIN Nutritional Formula (Lactose Free) (Glucerna Shake) 60 ml PO TIDCM [facility] Last Admin: 12/09/19 09:02 Dose: 60 ml Documented by: Oxycodone HCl (Oxyir) 5 mg PO Q4H PRN PRN PRN Reason: Pain Score 4-5/10 Prochlorperazine Edisylate (Compazine Iv) 5 mg IV Q4H PRN PRN PRN Reason: Breakthrough Nausea/Vomiting Senna/Docusate Sodium (Senokot-S, Shey-Colace) 2 tablet PO BID PRN PRN PRN Reason: Constipation Sodium Chloride () 10 - 40 ml IV UD PRN PRN Reason: SALINE FLUSH Last Admin: 12/09/19 01:48 Dose: 10 ml Documented by: Tamsulosin HCl (Flomax) 0.4 mg PO DAILY [facility] Last Admin: 12/09/19 09:03 Dose: 0.4 mg Documented by: STROKE Vital Signs/Narrative: Vital Signs Temp Pulse Resp BP Pulse Ox 12/09/19 09:04 61 12/09/19 08:44 98.2 F 61 17 130/70 H 94 12/09/19 07:35 97 12/09/19 07:05 59 L Medical Necessity - Tobacco Use Smoking Status: Former smoker Tobacco Use: Cigarettes Assessment/Plan All Active Problems (Last Updated 10/30/19 @ 07:[address] Ade Finn MD) Acute on chronic congestive heart failure (Acute) Anasarca (Acute) Acute on chronic congestive heart failure with right ventricular diastolic dysfunction (Acute) Supratherapeutic INR (Acute) Hyperkalemia (Acute) Acute Hypoxic on Chronic Hypoxic/Hypercapnic Respiratory Failure 2/2 AEHFrEF/Volume Overload -on 3 L O2 at baseline and remains on 3 L at this time -was 153.9 kg at d/c on 11/29 and returns with a wgt of 164.4 -was here from 11/19-11/29 for AECHF and d/c at that time with Bumex 1 mg daily and Metolazone MWF -ECHO from 11/21/2019 showed EF of 55%/mod dilated RV/Global RV dysfunction with RVSP of 71 mmHg -on lasix ggt--> increase rate to 20 cc/hr -continue diamox for now -strict I&O -Fluid restriction of 1500 cc -daily wgts -would recommend f/u with heart failure clinic -I suspect strict compliance is still an issue CKD Stage 3 -was HD dependent from Apr-July -has a component of cardiorenal syndrome -continue diuresis -sCr is at/a bit below baseline -nephrology is consulted PAF -on Coumadin -INR 3.5 today -hold Coumadin dose today -currently in NSR -continue amio -continue Metoprolol Mild Anemia -hgb stable will monitor LASHAWN/OHS -CPAP at HS and naps HFpEF/Diastolic dysfunction -see above -this is primarily RV failure related to MO and LASHAWN Mod-Severe PAH 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 bariatrics f/u H/O VSD and PDA repair -no current issues Supratherapeutic INR -coumadin on hold DVT Prophylaxis -coumadin Code Status -Full Inpatient E&M: 67521 [facility] L3
[2019-12-09 10:10] LABS: Bedside Glucose 158 mg/dL (70-110)
--- NOTE | 2019-12-09 12:17 | CASEMGMT ---
Addendum entered by Allie Dobson 12/09/19 14:04: H/P that was faxed to [phone] would not go through. Faxed H/P to [phone] and report received that fax went through successfully. Updated [facility] Addendum entered by Allie Dobson 12/09/19 12:38: Call placed to [facility] and message left w/answering service re: pt admission to [facility]. Call received back from Karina. She was made aware pt has been admitted w/CHF exacerbation. She confirms pt is active with them and receives SN and PT services. H/P faxed to [facility] at this time. Original Note: RN CM readmission note: Prior admission: Admitted 11/21/19 w/diagnoses of CHF Exacerbation. Discharged home w/resumption of HHC services w/[facility]. Pt had home oxygen @ 3 L/M at home. Pt also had prior admissions 10/27-10/31 and 11/19 for CHF. See Lani Carballo RN CM note 11/21/19. Current Admission: Admitted 12/07 w/CHF exacerbation. Intro role of CM to patient who is sitting in chair, awake, alert and oriented. Pt states is still active w/[facility] and wishes to return home @ discharge w/resumption of HHC services. Pt states he does not wish to go to a SNF. Reviewed the following with pt. PCP: Dr. Alcazar Specialists: Dr. Khanna--cardiology, Dr Arevalo--nephrology. Insurance: [facility] Preferred Pharmacy: [facility] Prescription Benefit: yes DME: Walker, O2 @ 3 L/M, pt thinks is through [employer], nebulizer, CPAP w/O2 bleed-in @ 3 L/M HHC: Active w/[facility] Hx: SNF: [facility] Patient DC Goal: Home w/resumption of [facility]: DC Plan: Home w/resumption of [facility]: Dedrick MUNIZ RN CM
[2019-12-09 12:30] LABS: Bedside Glucose 134 mg/dL (70-110)
--- NOTE | 2019-12-09 14:20 | CPS ---
Set up pt's home Autopap w/3lpm O2 bleed-in. put water in to the water chamber.
[2019-12-09] MEDS: Insulin Lispro 100 UNIT/ML INSULN.PEN 6 UNIT SC (17:18)
[2019-12-09] MEDS: Acetaminophen 325 MG Tablet 650 MG PO (17:18)
[2019-12-09 17:26] LABS: Bedside Glucose 113 mg/dL (70-110)
[2019-12-09] MEDS: Atorvastatin Calcium 20 MG Tablet PO (21:34)
[2019-12-09 21:55] LABS: Bedside Glucose 140 mg/dL (70-110)
[2019-12-10] VITALS (11 sets, daily range): BP systolic 103–134; BP diastolic 57–96; PULSE 51–99; RESP 16–18; TEMP 36.3; O2SAT 94–99
[2019-12-10] MEDS: Acetaminophen 325 MG Tablet 650 MG PO ×2 (02:19→22:06)
[2019-12-10] MEDS: Furosemide 500 MG in Empty Viaflex 50 mL 1 EACH CONT INF (03:08)
[2019-12-10 05:38] LABS: Absolute Lymphocyte Count 0.95 X10^3/uL (0.83-4.51); Absolute Neutrophil Count 5.2 X10^3/uL (2.0-7.7); Basophil# 0.04 X10^3/uL; Basophil% 0.5 % (0-1); Eosinophil# 0.11 X10^3/uL; Eosinophils% 1.4 % (0-5); Hematocrit 34.7 % (40-54); Hemoglobin 10.3 g/dL (13.0-16.5); Lymphocyte # 0.95 X10^3/ul (4.0); Lymphocyte % 12.5 % (19-41); Mean Corp Hgb Conc 29.7 g/dL (32-36); Mean Corpuscular Hgb 25.9 pg (27.0-32.0); Mean Corpuscular Volume 87.2 fL (80-94); Mean Platelet Vol. 9.3 fl (6.2-12.0); Monocyte# 1.26 X10^3/uL; Monocyte% 16.5 % (0-10); NRBC Flagged by Analyzer 0 % (0-5); Neutrophil # 5.21 X10^3/uL (2.7-7.7); Neutrophil % 68.4 % (47-70); Platelet Count 260 K/mm3 (150-450); RBC Distribution Width CV 18.6 % (11.6-14.6); RBC Distribution Width SD 58.7 fl (35.1-43.9); Red Blood Count 3.98 M/mm3 (4.6-6.2); White Blood Count 7.6 K/mm3 (4.4-11.0)
[2019-12-10 05:55] LABS: Prothrombin Time (Protime)PT. 34.7 SECONDS (11.7-14.9)
[2019-12-10 06:00] LABS: Anion Gap 6 (5-15); BUN 49 mg/dL (7-18); BUN/Creat Ratio 22.8 RATIO (10-20); Calcium,Total 8.2 mg/dL (8.5-10.1); Chloride 96 mmol/L (98-107); Creatinine, Serum 2.15 mg/dL (0.70-1.30); EST Glomerular Filtration Rate 33 mL/min (>60); Est Glom Filt Rate - Afr Amer 40 mL/min (>60); Estimated Creatinine Clearance 34.91 ml/min; Glucose 89 mg/dL (74-106); Potassium 3.2 mmol/L (3.5-5.1); Sodium Level 137 mmol/L (136-145)
[2019-12-10] MEDS: oxyCODONE 5 MG Tablet PO ×2 (06:14→14:30)
[2019-12-10 06:21] LABS: International Normalized Ratio 3.5
[2019-12-10] MEDS: Insulin Lispro 100 UNIT/ML INSULN.PEN 7 UNIT SC (08:35)
[2019-12-10 08:46] LABS: Bedside Glucose 85 mg/dL (70-110)
[2019-12-10] MEDS: AcetaZOLAMIDE 250 MG Tablet 125 MG PO ×2 (10:26→22:21)
[2019-12-10] MEDS: Tamsulosin HCl 0.4 MG Capsule PO (10:26)
[2019-12-10] MEDS: Amiodarone 200 MG Tablet PO ×2 (10:26→22:22)
[2019-12-10] MEDS: Metoprolol(XL)Succ 50 MG Tablet PO (10:26)
--- NOTE | 2019-12-10 10:35 | PCM.PN.HOSP ---
Patient Problems: Active and Suspected Problems (Last Updated 10/30/19 @ 07:[address] Ade Finn MD) Acute on chronic congestive heart failure with right ventricular diastolic dysfunction (Acute) Subjective: Pt states that he is feeling a bit better today. Breathing is easier. No pain. Feels like he would do better if he went back on HD to address his volume issues and again reiterates that he felt his best when he was on HD. Vitals/I&O's: Vital Signs Temp Pulse Resp BP Pulse Ox 97.3 F L 76 18 133/73 H 94 12/10/19 10:24 12/10/19 10:26 12/10/19 10:24 12/10/19 10:24 12/10/19 10:24 Oxygen Flow Rate (L/min) 3 Oxygen Delivery Method Nasal Cannula Weight: 162.7 kg Body Mass Index (BMI) 55.0 Finger Stick Blood Glucose 479 Intake and Output for Last 24 Hours 12/08/19 12/09/19 12/10/19 23:59 23:59 23:59 Intake Total 1153.81 / 1153.81 246.3 / 246.3 Output Total 3500 / 3500 1000 / 1000 Balance -2346.19 / -2346.19 -753.7 / -753.7 General: Alert, Oriented x3, Cooperative, Well developed, Well nourished, - - MO WM sitting up in a chair watching TV and doozing off Oral: Moist Mucosa, No Gingival or Mucosal Lesions/ Ulcerations Neck: Trachea Midline, JVD, Bilateral Lungs: No rhonchi, No wheeze, No rales, Diminished, - - wet cough Cardiovascular: Regular rate, Regular Rhythm, Normal S1, Normal S2, No murmurs, No Ectopic Activity, No rub noted, No Gallop Abdomen: Bowel Sounds Present, Soft, Non Tender, Non-Distended, Obese Extremities: No clubbing, No cyanosis, Capillary Refill Less than 3 Seconds, Edema - 2-3 + B LE Neurological: Cranial nerves II-XII grossly intact, Neuro grossly intact Psych/Mental Status: Appropriate, Flat Affect, - - A&O x 4 Laboratory Results 12/09/19 12:19: POC Glucose 134 H 12/09/19 17:15: POC Glucose 113 H 12/09/19 21:37: POC Glucose 140 H 12/10/19 04:40: PT 34.7 H, INR 3.5 H* 12/10/19 04:40: WBC 7.6, RBC 3.98 L, Hgb 10.3 L, Hct 34.7 L, MCV 87.2, MCH 25.9 L, MCHC 29.7 L, RDW Std Deviation 58.7 H, RDW Coeff of Janiya 18.6 H, Plt Count 260, MPV 9.3, Immature Gran % (Auto) 0.700, Neut % (Auto) 68.4, Lymph % (Auto) 12.5 L, [place] % (Auto) 16.5 H, Eos % (Auto) 1.4, Baso % (Auto) 0.5, Absolute Neuts (auto) 5.2, Absolute Lymphs (auto) 0.95, Nucleated RBC % 0 12/10/19 04:40: Sodium 137, Potassium 3.2 L, Chloride 96 L, Carbon Dioxide 35.0 H, Anion Gap 6, BUN 49 H, Creatinine 2.15 H, Estim Creat Clear Calc 34.91, Est GFR (MDRD) Af Amer 40 L, Est GFR (MDRD) Non-Af 33 L, BUN/Creatinine Ratio 22.8 H, Glucose 89, Calcium 8.2 L 12/10/19 08:28: POC Glucose 85 Current Medications Acetaminophen (Tylenol) 650 mg PO Q6H PRN PRN PRN Reason: Pain Score 1-10/Temp > 100.7 F Last Admin: 12/10/19 02:19 Dose: 650 mg Documented by: Acetazolamide (Diamox) 125 mg PO BID [facility] Last Admin: 12/10/19 10:26 Dose: 125 mg Documented by: Al Hydroxide/Mg Hydroxide (Mylanta Ii) 30 ml PO Q6H PRN PRN PRN Reason: Gastric Burning Amiodarone HCl (Cordarone) 200 mg PO BID [facility] Last Admin: 12/10/19 10:26 Dose: 200 mg Documented by: Atorvastatin Calcium (Lipitor) 20 mg PO QHS [facility] Last Admin: 12/09/19 21:34 Dose: 20 mg Documented by: Furosemide 500 mg/ N/A 50 mls @ 2 mls/hr CONT INF .Q25H [facility] Last Admin: 08/30/20 03:08 Dose: 20 mg/hr, 2 mls/hr Documented by: Insulin Glargine (Lantus (Bkc)) 30 units SC BID [facility] Last Admin: 12/10/19 10:26 Dose: 30 units Documented by: Insulin Human Lispro (Humalog Kwikpen (Bkc)) 0 unit SC ACHS [facility]; Protocol Last Admin: 12/10/19 08:34 Dose: Not Given Documented by: Insulin Human Lispro (Humalog Kwikpen (Bkc)) 7 unit SC BREAKFAST [facility] Last Admin: 12/10/19 08:35 Dose: 7 units Documented by: Insulin Human Lispro (Humalog Kwikpen (Bkc)) 6 unit SC DINNER [facility] Last Admin: 12/09/19 17:18 Dose: 6 units Documented by: Insulin Human Lispro (Humalog Kwikpen (Bkc)) 5 unit SC LUNCH [facility] Last Admin: 12/09/19 12:24 Dose: 5 units Documented by: Melatonin (Melatonin) 3 mg PO QHS PRN PRN PRN Reason: SLEEP Metoprolol Succinate (Toprol Xl (Beta Rakesh)) 50 mg PO DAILY [facility] Last Admin: 12/10/19 10:26 Dose: 50 mg Documented by: Morphine Sulfate () 2 mg IV Q3H PRN PRN PRN Reason: Pain Score 6-10/10 Nitroglycerin (Nitrostat) 0.4 mg SUBLINGUAL Q5M PRN PRN Reason: CARDIAC/CHEST PAIN Oxycodone HCl (Oxyir) 5 mg PO Q4H PRN PRN PRN Reason: Pain Score 4-5/10 Last Admin: 12/10/19 06:14 Dose: 5 mg Documented by: Prochlorperazine Edisylate (Compazine Iv) 5 mg IV Q4H PRN PRN PRN Reason: Breakthrough Nausea/Vomiting Senna/Docusate Sodium (Senokot-S, Shey-Colace) 2 tablet PO BID PRN PRN PRN Reason: Constipation Sodium Chloride () 10 - 40 ml IV UD PRN PRN Reason: SALINE FLUSH Last Admin: 12/09/19 01:48 Dose: 10 ml Documented by: Tamsulosin HCl (Flomax) 0.4 mg PO DAILY [facility] Last Admin: 12/10/19 10:26 Dose: 0.4 mg Documented by: STROKE Vital Signs/Narrative: Vital Signs Temp Pulse Resp BP Pulse Ox 12/10/19 10:26 76 12/10/19 10:24 97.3 F L 76 18 133/73 H 94 12/10/19 07:14 95 12/10/19 06:49 51 L Medical Necessity - Tobacco Use Smoking Status: Former smoker Tobacco Use: Cigarettes Assessment/Plan All Active Problems (Last Updated 10/30/19 @ 07:[address] Ade Finn MD) Acute on chronic congestive heart failure (Acute) Anasarca (Acute) Acute on chronic congestive heart failure with right ventricular diastolic dysfunction (Acute) Supratherapeutic INR (Acute) Hyperkalemia (Acute) Acute Hypoxic on Chronic Hypoxic/Hypercapnic Respiratory Failure 2/ AEHFrEF/Volume Overload -on 3 L O2 at baseline and remains on 3 L at this time -was 153.9 kg at d/c on 11/29 and returns with a wgt of 164.4 -down to 162.7 today (1.7 kg) and was neg 2,346 cc yesterday -was here from 11/19-11/29 for AECHF and d/c at that time with Bumex 1 mg daily and Metolazone MWF -ECHO from 11/21/2019 showed EF of 55%/mod dilated RV/Global RV dysfunction with RVSP of 71 mmHg -on lasix ggt--> continue rate to 20 cc/hr -continue diamox -strict I&O -Fluid restriction of 1500 cc -daily wgts -would recommend f/u with heart failure clinic -I suspect strict compliance is still an issue CKD Stage 3 -was HD dependent from Apr-July -has a component of cardiorenal syndrome -continue diuresis -sCr with slight trend up but relatively stable despite diuresis -nephrology is consulted--> d/w Dr. Anne and he will see the pt later today -Dr. 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 bariatrics f/u H/O VSD and PDA repair -no current issues Supratherapeutic INR -coumadin on hold DVT Prophylaxis -coumadin Code Status -Full Inpatient E&M: 82425 [facility] Hosp L2
[2019-12-10] MEDS: Insulin Lispro 100 UNIT/ML INSULN.PEN SC (11:16)
[2019-12-10 11:20] LABS: Bedside Glucose 125 mg/dL (70-110)
[2019-12-10 16:15] LABS: Bedside Glucose 137 mg/dL (70-110)
[2019-12-10] MEDS: Insulin Lispro 100 UNIT/ML INSULN.PEN 6 UNIT SC (17:49)
[2019-12-10] MEDS: Atorvastatin Calcium 20 MG Tablet PO (22:22)
[2019-12-10] MEDS: 0.9% Saline Lock 10 ML Syringe IV (22:24)
[2019-12-10 22:50] LABS: Bedside Glucose 147 mg/dL (70-110)
[2019-12-11] VITALS (12 sets, daily range): BP systolic 101–128; BP diastolic 55–86; PULSE 51–61; RESP 18–20; TEMP 36.3–36.5; O2SAT 92–97
[2019-12-11] MEDS: Acetaminophen 325 MG Tablet 650 MG PO ×2 (05:10→21:32)
[2019-12-11 05:40] LABS: Absolute Lymphocyte Count 0.78 X10^3/uL (0.83-4.51); Absolute Neutrophil Count 5.1 X10^3/uL (2.0-7.7); Basophil# 0.04 X10^3/uL; Basophil% 0.6 % (0-1); Eosinophil# 0.27 X10^3/uL; Eosinophils% 3.8 % (0-5); Hematocrit 37.2 % (40-54); Hemoglobin 10.9 g/dL (13.0-16.5); Lymphocyte # 0.78 X10^3/ul (4.0); Lymphocyte % 10.9 % (19-41); Mean Corp Hgb Conc 29.3 g/dL (32-36); Mean Corpuscular Hgb 25.6 pg (27.0-32.0); Mean Corpuscular Volume 87.3 fL (80-94); Mean Platelet Vol. 9.1 fl (6.2-12.0); Monocyte# 0.92 X10^3/uL; Monocyte% 12.8 % (0-10); NRBC Flagged by Analyzer 0.4 % (0-5); Neutrophil # 5.12 X10^3/uL (2.7-7.7); Neutrophil % 71.2 % (47-70); Platelet Count 297 K/mm3 (150-450); RBC Distribution Width CV 18.6 % (11.6-14.6); RBC Distribution Width SD 58.4 fl (35.1-43.9); Red Blood Count 4.26 M/mm3 (4.6-6.2); White Blood Count 7.2 K/mm3 (4.4-11.0)
[2019-12-11 05:47] LABS: International Normalized Ratio 3.4; Prothrombin Time (Protime)PT. 33.7 SECONDS (11.7-14.9)
[2019-12-11 05:54] LABS: Anion Gap 9 (5-15); BUN 51 mg/dL (7-18); Calcium,Total 8.3 mg/dL (8.5-10.1); Chloride 91 mmol/L (98-107); Creatinine, Serum 2.32 mg/dL (0.70-1.30); EST Glomerular Filtration Rate 31 mL/min (>60); Est Glom Filt Rate - Afr Amer 37 mL/min (>60); Estimated Creatinine Clearance 32.35 ml/min; Glucose 97 mg/dL (74-106); Magnesium 2.9 mg/dL (1.6-2.6); Potassium 2.9 mmol/L (3.5-5.1); Sodium Level 134 mmol/L (136-145)
--- NOTE | 2019-12-11 07:50 | PN_ITS ---
Subjective: Chief complaint: Follow-up after admission for acute on chronic CHF and acute on chronic hypoxic respiratory failure. Patient seen and examined. No acute events overnight. This morning, he mentioned that he is not feeling well. He is weak and nauseated. He mentioned that his breathing is okay at this time. He denied any chest pain. Denied fever or chills. He is afebrile, blood pressure and heart rate are stable, pulse ox is 93% on 3 L. - Physical Exam Vitals/I&O's: Vital Signs Temp Pulse Resp BP Pulse Ox 97.5 F L 61 20 H 112/69 93 12/11/19 05:52 12/11/19 05:52 12/11/19 05:52 12/11/19 05:52 12/11/19 05:52 Oxygen Flow Rate (L/min) 3 Oxygen Delivery Method Nasal Cannula Weight: 351 lb 3.142 oz Body Mass Index (BMI) 55.0 Finger Stick Blood Glucose 479 Intake and Output for Last 24 Hours 12/09/19 12/10/19 12/11/19 23:59 23:59 23:59 Intake Total 1153.81 / 1153.81 884.03 / 984.03 560 / 560 Output Total 3500 / 3500 2150 / 3300 2150 / 2150 Balance -2346.19 / -2346.19 -1265.97 / -2315.97 -1590 / -1590 General: Alert, Oriented x3, Cooperative, No apparent distress HEENT: Atraumatic, PERRLA, EOMI, Normocephalic Oral: Moist Mucosa, No Gingival or Mucosal Lesions/ Ulcerations Neck: Supple, No JVD, Negative Carotid Bruits, Trachea Midline, Thyroid Normal Size and Texture Lungs: Clear to auscultation, No rhonchi, No wheeze, No rales, Diminished, - - Decreased breath sounds bilateral, otherwise clear. Cardiovascular: Regular rate, Regular Rhythm, Normal S1, Normal S2, PMI Normal Abdomen: Bowel Sounds Present, Soft, Non Tender, Non-Distended, No Hepato- splenomegaly, Obese Extremities: No clubbing, No cyanosis, Edema Skin: No rashes, Ulcer/ Wound Lymphatic: No Cervical, Supraclavicular, or Inguinal Adenopathy Neurological: Cranial nerves II-XII grossly intact, Neuro grossly intact Psych/Mental Status: Appropriate, Flat Affect, Alert and oriented to time, place, person, mood and affect Laboratory Results 12/10/19 08:28: POC Glucose 85 12/10/19 11:15: POC Glucose 125 H 12/10/19 16:07: POC Glucose 137 H 12/10/19 22:13: POC Glucose 147 H 12/11/19 05:20: PT 33.7 H, INR 3.4 12/11/19 05:20: WBC 7.2, RBC 4.26 L, Hgb 10.9 L, Hct 37.2 L, MCV 87.3, MCH 25.6 L, MCHC 29.3 L, RDW Std Deviation 58.4 H, RDW Coeff of Janiya 18.6 H, Plt Count 297, MPV 9.1, Immature Gran % (Auto) 0.700, Neut % (Auto) 71.2 H, Lymph % (Auto) 10.9 L, [place] % (Auto) 12.8 H, Eos % (Auto) 3.8, Baso % (Auto) 0.6, Absolute Neuts (auto) 5.1, Absolute Lymphs (auto) 0.78 L, Nucleated RBC % 0.4 12/11/19 05:20: Sodium 134 L, Potassium 2.9 L, Chloride 91 L, Carbon Dioxide 34.0 H, Anion Gap 9, BUN 51 H, Creatinine 2.32 H, Estim Creat Clear Calc 32.35, Est GFR (MDRD) Af Amer 37 L, Est GFR (MDRD) Non-Af 31 L, BUN/Creatinine Ratio 22.0 H, Glucose 97, Calcium 8.3 L, Magnesium 2.9 H Current Medications Acetaminophen (Tylenol) 650 mg PO Q6H PRN PRN PRN Reason: Pain Score 1-10/Temp > 100.7 F Last Admin: 12/11/19 05:10 Dose: 650 mg Documented by: Acetazolamide (Diamox) 125 mg PO BID [facility] Last Admin: 12/10/19 22:21 Dose: 125 mg Documented by: Al Hydroxide/Mg Hydroxide (Mylanta Ii) 30 ml PO Q6H PRN PRN PRN Reason: Gastric Burning Amiodarone HCl (Cordarone) 200 mg PO BID [facility] Last Admin: 12/10/19 22:22 Dose: 200 mg Documented by: Atorvastatin Calcium (Lipitor) 20 mg PO QHS [facility] Last Admin: 12/10/19 22:22 Dose: 20 mg Documented by: Furosemide 500 mg/ N/A 50 mls @ 2 mls/hr CONT INF .Q25H [facility] Last Infusion: 12/10/19 22:44 Dose: 20 mg/hr, 2 mls/hr Documented by: Insulin Glargine (Lantus (Bkc)) 25 units SC 1100,2200 [facility] Last Admin: 12/10/19 22:24 Dose: 25 units Documented by: Insulin Human Lispro (Humalog Kwikpen (Bk)) 0 unit SC ACHS [facility]; Protocol Last Admin: 12/10/19 22:23 Dose: Not Given Documented by: Insulin Human Lispro (Humalog Kwikpen (Bk)) 7 unit SC BREAKFAST [facility] Last Admin: 12/10/19 08:35 Dose: 7 units Documented by: Insulin Human Lispro (Humalog Kwikpen (Bk)) 6 unit SC DINNER [facility] Last Admin: 12/10/19 17:49 Dose: 6 units Documented by: Insulin Human Lispro (Humalog Kwikpen (Bk)) 5 unit SC LUNCH [facility] Last Admin: 12/10/19 11:16 Dose: 5 units Documented by: Melatonin (Melatonin) 3 mg PO QHS PRN PRN PRN Reason: SLEEP Metoprolol Succinate (Toprol Xl (Beta Rakesh)) 50 mg PO DAILY [facility] Last Admin: 12/10/19 10:26 Dose: 50 mg Documented by: Morphine Sulfate () 2 mg IV Q3H PRN PRN PRN Reason: Pain Score 6-10/10 Nitroglycerin (Nitrostat) 0.4 mg SUBLINGUAL Q5M PRN PRN Reason: CARDIAC/CHEST PAIN Oxycodone HCl (Oxyir) 5 mg PO Q4H PRN PRN PRN Reason: Pain Score 4-5/10 Last Admin: 12/10/19 14:30 Dose: 5 mg Documented by: [facility] Prochlorperazine Edisylate (Compazine Iv) 5 mg IV Q4H PRN PRN PRN Reason: Breakthrough Nausea/Vomiting Senna/Docusate Sodium (Senokot-S, Shey-Colace) 2 tablet PO BID PRN PRN PRN Reason: Constipation Sodium Chloride () 10 - 40 ml IV UD PRN PRN Reason: SALINE FLUSH Last Admin: 12/10/19 22:24 Dose: 10 ml Documented by: Tamsulosin HCl (Flomax) 0.4 mg PO DAILY [facility] Last Admin: 12/10/19 10:26 Dose: 0.4 mg Documented by: Medical Necessity - Tobacco Use Smoking Status: Former smoker Tobacco Use: Cigarettes Assessment/Plan All Active Problems (Last Updated 10/30/19 @ 07:[address] Ade Finn MD) Acute on chronic congestive heart failure (Acute) Supratherapeutic INR (Acute) This is a 59 years old male patient presented to the emergency room because of worsening shortness of breath and weight gain and he was found to have acute on chronic diastolic CHF complicated by acute on chronic hypoxic respiratory failure. #1 acute on chronic diastolic CHF/right ventricular rotation/severe pulmonary hypertension: He is on IV Lasix drip, on metoprolol. He has had good urine output, his weight is down by almost 10 pounds. Shortness of breath has been improving but still having edema and anasarca. He had 2D echocardiogram on November 21, 2019 that revealed ejection fraction of 55%, moderately dilated right ventricle, RVSP of 71 consistent with severe pulmonary hypertension. Patient was on hemodialysis from April to July 2019. During this admission, serum creatinine has been fairly stable, close to baseline. Plan: Continue IV diuresis with IV Lasix drip, awaiting nephrology recommendations, repeat CBC and BMP tomorrow morning. #2 acute on chronic hypoxic respiratory failure: Secondary to #1. His oxygenation and shortness of breath has been improving, he is down to 3 L which is his baseline at home. Plan as above. #3 stage III/stage IV chronic kidney disease: Serum creatinine has been around 2 to 2.6 mg/dL in the last 6 months. Today, it is 2.32, close to baseline while on IV Lasix for diuresis. Patient was on hemodialysis earlier this year. Nephrology consulted, awaiting their recommendations. #4 hypokalemia: Due to IV Lasix drip. Started on potassium supplement, plan to repeat BMP tomorrow morning. #5 supratherapeutic INR: Patient has been on Coumadin for paroxysmal A. fib. INR was 3.5, it came down to 3.4 today. Plan to keep hold Coumadin for today, repeat INR tomorrow morning. #6 paroxysmal atrial fibrillation: Heart rate has been in the 50s, stable. Continue amiodarone and metoprolol for rate control, keep holding Coumadin as above. #7 hypertension: Blood pressure stable, continue metoprolol. #8 history of PDA/valvular heart disease: Status post repair, stable. #9 obstructive sleep apnea: Continue CPAP at night. #10 type 2 diabetes mellitus: Blood sugar has been under control, continue Humalog 3 times daily, Lantus twice daily and insulin sliding scale. #11 hyperlipidemia: Continue statins. #12 DVT prophylaxis: INR is 3.4. This note was generated with [employer] dictation software. It may contain incorrect words, spelling, and punctuation that were not noted in checking the note before signing. Inpatient E&M: 04018 Subs Hosp L2
[2019-12-11 07:56] LABS: Bedside Glucose 99 mg/dL (70-110)
[2019-12-11] MEDS: 0.9% Saline Lock 10 ML Syringe IV ×3 (09:02→17:31)
[2019-12-11] MEDS: Insulin Lispro 100 UNIT/ML INSULN.PEN 7 UNIT SC (09:02)
[2019-12-11] MEDS: Tamsulosin HCl 0.4 MG Capsule PO (09:02)
[2019-12-11] MEDS: AcetaZOLAMIDE 250 MG Tablet 125 MG PO (09:02)
[2019-12-11] MEDS: Amiodarone 200 MG Tablet PO ×2 (09:02→21:27)
--- NOTE | 2019-12-11 10:54 | CASEMGMT ---
SW met with patient. Introduced self and role at [facility]. SW wanted to verify he still plans on going home with home health at discharge. He said he does plan on going home. He does not want to go to a long-term. Ellie CISNEROS MSW
[2019-12-11] MEDS: Insulin Lispro 100 UNIT/ML INSULN.PEN SC ×2 (12:34→12:35)
[2019-12-11 12:41] LABS: Bedside Glucose 193 mg/dL (70-110)
--- NOTE | 2019-12-11 14:43 | CASEMGMT ---
Per Dr Arevalo, pt will need to be set up for OP dialysis at this time [facility]. Referral started in [facility] portal at this time and referral packet to be faxed. Angel MEJIA CM
--- NOTE | 2019-12-11 15:53 | CON.PCM_ITS ---
Problem List (1) Chronic kidney disease (CKD) Status: Chronic (2) Acute on chronic congestive heart failure Status: Acute Qualifiers: Heart failure type: right-sided Qualified Code(s): I50.813 - Acute on chronic right heart failure Consultation - Renal 12/11/19 PCP/ Referring MD: Requesting physician: [] Primary care physician: Dr. Francisco Alcazar MD Reason for Consultation:: MOUNA CHF - History of Present Illness History of Present Illness: The patient is a 59 year old M admitted to hospital with complaints of dyspnea. well known to me from previous encounters. was admitted to hospital with fluid issue several times. multiple medication adjustments in the office. - Allergies Allergies: Allergies albuterol Adverse Reaction (Verified 12/08/19 20:00) NEEDS FOLLOW-UP increased heart rate. amoxicillin trihydrate [From Augmentin] Adverse Reaction (Verified 12/08/19 20:00) Diarrhea indomethacin [From Indocin] Adverse Reaction (Verified 12/08/19 20:00) Nausea potassium clavulanate [From Augmentin] Adverse Reaction (Verified 12/08/19 20:00) Diarrhea - Current Medications Current Medications: Current Medications Acetaminophen (Tylenol) 650 mg PO Q6H PRN PRN PRN Reason: Pain Score 1-10/Temp > 100.7 F Last Admin: 12/11/19 05:10 Dose: 650 mg Documented by: Al Hydroxide/Mg Hydroxide (Mylanta Ii) 30 ml PO Q6H PRN PRN PRN Reason: Gastric Burning Amiodarone HCl (Cordarone) 200 mg PO BID [facility] Last Admin: 12/11/19 09:02 Dose: 200 mg Documented by: Atorvastatin Calcium (Lipitor) 20 mg PO QHS [facility] Last Admin: 12/10/19 22:22 Dose: 20 mg Documented by: Furosemide (Lasix) 60 mg IV Q8 [facility] Insulin Glargine (Lantus (Bkc)) 25 units SC 1100,2200 [facility] Last Admin: 12/11/19 12:35 Dose: 25 units Documented by: Insulin Human Lispro (Humalog Kwikpen (Bkc)) 0 unit SC ACHS [facility]; Protocol Last Admin: 12/11/19 12:34 Dose: 3 units Documented by: Insulin Human Lispro (Humalog Kwikpen (Bkc)) 7 unit SC BREAKFAST [facility] Last Admin: 12/11/19 09:02 Dose: 7 units Documented by: Insulin Human Lispro (Humalog Kwikpen (Bkc)) 6 unit SC DINNER [facility] Last Admin: 12/10/19 17:49 Dose: 6 units Documented by: Insulin Human Lispro (Humalog Kwikpen (Bkc)) 5 unit SC LUNCH [facility] Last Admin: 12/11/19 12:35 Dose: 5 units Documented by: Melatonin (Melatonin) 3 mg PO QHS PRN PRN PRN Reason: SLEEP Metoprolol Succinate (Toprol Xl (Beta Rakesh)) 50 mg PO DAILY [facility] Last Admin: 12/11/19 11:45 Dose: Not Given Documented by: Morphine Sulfate () 2 mg IV Q3H PRN PRN PRN Reason: Pain Score 6-10/10 Nitroglycerin (Nitrostat) 0.4 mg SUBLINGUAL Q5M PRN PRN Reason: CARDIAC/CHEST PAIN Oxycodone HCl (Oxyir) 5 mg PO Q4H PRN PRN PRN Reason: Pain Score 4-5/10 Last Admin: 12/10/19 14:30 Dose: 5 mg Documented by: Potassium Ch[facility] ([facility]Dur) [facility] Prochlorperazine Edisylate (Compazine Iv) 5 mg IV Q4H PRN PRN PRN Reason: Breakthrough Nausea/Vomiting Senna/Docusate Sodium (Senokot-S, Shey-Colace) 2 tablet PO BID PRN PRN PRN Reason: Constipation Sodium Chloride () 10 - 40 ml IV UD PRN PRN Reason: SALINE FLUSH Last Admin: 12/11/19 09:02 Dose: 10 ml Documented by: Tamsulosin HCl (Flomax) 0.4 mg PO DAILY [facility] Last Admin: 12/11/19 09:02 Dose: 0.4 mg Documented by: - Past Medical History Past Medical History (Chronic Problems): Chronic Problems (Last Updated 10/30/19 @ 07:[address] Ade Finn MD) Chronic kidney disease (CKD) (Chronic) CHF (congestive heart failure) (Chronic) Morbid obesity with BMI of 50.0-59.9, adult (Chronic) MCFP current use of anticoagulant (Chronic) History of right and left heart catheterization (Chronic 02/18/98) Done s/p VSD repair Per Dr. Sherif Espinoza @ [facility]: normal coronaries, mildly elevated PA pressures Paroxysmal SVT (supraventricular tachycardia) (Chronic) Atrial fibrillation (Chronic) History of atrial flutter (Chronic) Attempted atrial flutter ablation @ [facility] X 1 in 1997 (unsuccessful), followed by Atrial flutter ablations X [address] Paul at [facility] in Apr and October of 1998 Chronic diastolic congestive heart failure (Chronic) History of patent ductus arteriosus as a child (Chronic) Repaired at age 3 years, done @ [facility] Nonrheumatic tricuspid valve regurgitation (Chronic) Leaflet used for VSD repair in past History of ventricular septal defect repair (Chronic) 1977 (pt approx age 18) using Dacron patch, done at [facility] Hyperlipidemia (Chronic) Hypertension (Chronic) Diabetes mellitus, type II (Chronic) History of radiofrequency ablation procedure for cardiac arrhythmia (Chronic) Attempted atrial flutter ablation @ [facility] X 1 (unsuccessful), followed by Atrial flutter ablations X [address] Paul at [facility] in Apr and October of 1998 Pulmonary hypertension, moderate to severe (Chronic) PASP 69 mmHg in September 2013 LASHAWN (obstructive sleep apnea) (Chronic) - Past Surgical History Surgical History: - - Social History Smoking Status: Former smoker - Family History Maternal Family History: Family History (Last Reviewed 10/28/19 @ 03:[address] Fredi Cobb DO) Mother Hypertension Diabetes CVA (cerebral vascular accident) Valvular heart disease Father CVA (cerebral vascular accident) Hypertension Hyperlipidemia History Items: Diabetes, High Cholesterol, Heart Disease, Hypertension, Stroke, - - Mother with history of concurrent valvular heart disease. Paternal Family History: Family History (Last Reviewed 10/28/19 @ 03:[address] Fredi Cobb DO) Mother Hypertension Diabetes CVA (cerebral vascular accident) Valvular heart disease Father CVA (cerebral vascular accident) Hypertension Hyperlipidemia History Items: High Cholesterol, Heart Disease, Hypertension, Stroke Review of Systems Cardiovascular: Reports: Edema Respiratory: Reports: Shortness of Breath, Shortness of breath at rest - Physical Exam Vitals/I&O's: Vital Signs Temp Pulse Resp BP Pulse Ox 97.6 F L 51 L 18 101/58 L 97 12/11/19 14:40 12/11/19 14:40 12/11/19 14:40 12/11/19 14:40 12/11/19 14:40 Oxygen Flow Rate (L/min) 3 Oxygen Delivery Method Nasal Cannula Weight: 159.3 kg Body Mass Index (BMI) 55.0 Finger Stick Blood Glucose 479 Intake and Output for Last 24 Hours 12/09/19 12/10/19 12/11/19 23:59 23:59 23:59 Intake Total 1153.81 / 1153.81 884.03 / 984.03 800 / 800 Output Total 3500 / 3500 2150 / 3300 2900 / 2900 Balance -2346.19 / -2346.19 -1265.97 / -2315.97 -2100 / -2100 General: Alert, Oriented x3, Cooperative HEENT: Atraumatic, PERRLA, EOMI, Normocephalic Neck: Supple, No JVD, Negative Carotid Bruits Lungs: Clear to auscultation, Normal air movement Cardiovascular: Regular rate, No murmurs Abdomen: Bowel Sounds Present, Soft, Non Tender Extremities: Capillary Refill Less than 3 Seconds, Edema Skin: No rashes, No breakdown Musculoskeletal: No Tenderness to Palpation of Joints or Extremities Neurological: Cranial nerves II-XII grossly intact Psych/Mental Status: Normal Affect, Appropriate Microbiology Past 72 Hours 12/08/19 20:44 Blood Culture (Wb) #2 - No Site/Description Given Blood Culture - Preliminary No growth in 48 hours. 12/08/19 20:20 Blood Culture (Wb) - Right Forearm Blood Culture - Preliminary No growth in 48 hours. Laboratory Results 12/10/19 16:07: POC Glucose 137 H 12/10/19 22:13: POC Glucose 147 H 12/11/19 05:20: PT 33.7 H, INR 3.4 12/11/19 05:20: WBC 7.2, RBC 4.26 L, Hgb 10.9 L, Hct 37.2 L, MCV 87.3, MCH 25.6 L, MCHC 29.3 L, RDW Std Deviation 58.4 H, RDW Coeff of Janiya 18.6 H, Plt Count 297, MPV 9.1, Immature Gran % (Auto) 0.700, Neut % (Auto) 71.2 H, Lymph % (Auto) 10.9 L, [place] % (Auto) 12.8 H, Eos % (Auto) 3.8, Baso % (Auto) 0.6, Absolute Neuts (auto) 5.1, Absolute Lymphs (auto) 0.78 L, Nucleated RBC % 0.4 12/11/19 05:20: Sodium 134 L, Potassium 2.9 L, Chloride 91 L, Carbon Dioxide 34.0 H, Anion Gap 9, BUN 51 H, Creatinine 2.32 H, Estim Creat Clear Calc 32.35, Est GFR (MDRD) Af Amer 37 L, Est GFR (MDRD) Non-Af 31 L, BUN/Creatinine Ratio 22.0 H, Glucose 97, Calcium 8.3 L, Magnesium 2.9 H 12/11/19 07:49: POC Glucose 99 12/11/19 12:33: POC Glucose 193 H Current Medications Acetaminophen (Tylenol) 650 mg PO Q6H PRN PRN PRN Reason: Pain Score 1-10/Temp > 100.7 F Last Admin: 12/11/19 05:10 Dose: 650 mg Documented by: Al Hydroxide/Mg Hydroxide (Mylanta Ii) 30 ml PO Q6H PRN PRN PRN Reason: Gastric Burning Amiodarone HCl (Cordarone) 200 mg PO BID [facility] Last Admin: 12/11/19 09:02 Dose: 200 mg Documented by: Atorvastatin Calcium (Lipitor) 20 mg PO QHS [facility] Last Admin: 12/10/19 22:22 Dose: 20 mg Documented by: Furosemide (Lasix) 60 mg IV Q8 [facility] Insulin Glargine (Lantus (Bkc)) 25 units SC 1100,2200 [facility] Last Admin: 12/11/19 12:35 Dose: 25 units Documented by: Insulin Human Lispro (Humalog Kwikpen (Bkc)) 0 unit SC ACHS [facility]; Protocol Last Admin: 12/11/19 12:34 Dose: 3 units Documented by: Insulin Human Lispro (Humalog Kwikpen (Bkc)) 7 unit SC BREAKFAST [facility] Last Admin: 12/11/19 09:02 Dose: 7 units Documented by: Insulin Human Lispro (Humalog Kwikpen (Bkc)) 6 unit SC DINNER [facility] Last Admin: 12/10/19 17:49 Dose: 6 units Documented by: Insulin Human Lispro (Humalog Kwikpen (Bkc)) 5 unit SC LUNCH [facility] Last Admin: 12/11/19 12:35 Dose: 5 units Documented by: Melatonin (Melatonin) 3 mg PO QHS PRN PRN PRN Reason: SLEEP Metoprolol Succinate (Toprol Xl (Beta Rakesh)) 50 mg PO DAILY [facility] Last Admin: 12/11/19 11:45 Dose: Not Given Documented by: Morphine Sulfate () 2 mg IV Q3H PRN PRN PRN Reason: Pain Score 6-10/10 Nitroglycerin (Nitrostat) 0.4 mg SUBLINGUAL Q5M PRN PRN Reason: CARDIAC/CHEST PAIN Oxycodone HCl (Oxyir) 5 mg PO Q4H PRN PRN PRN Reason: Pain Score 4-5/10 Last Admin: 12/10/19 14:30 Dose: 5 mg Documented by: Potassium Chloride (K-Dur) [facility] Prochlorperazine Edisylate (Compazine Iv) 5 mg IV Q4H PRN PRN PRN Reason: Breakthrough Nausea/Vomiting Senna/Docusate Sodium (Senokot-S, Shey-Colace) 2 tablet PO BID PRN PRN PRN Reason: Constipation Sodium Chloride () 10 - 40 ml IV UD PRN PRN Reason: SALINE FLUSH Last Admin: 12/11/19 09:02 Dose: 10 ml Documented by: Tamsulosin HCl (Flomax) 0.4 mg PO DAILY [facility] Last Admin: 12/11/19 09:02 Dose: 0.4 mg Documented by: Assessment/Plan All Active Problems (Last Updated 10/30/19 @ 07:[address] Ade Finn MD) Acute on chronic congestive heart failure (Acute) Supratherapeutic INR (Acute) MOUNA CKD 3 CHF several admissions to hospital with fluid overload. generally unstable since coming off dialysis fluid issues, hypokalemia, alkaosis, renal failure plan dc lasix drip lasix bolus patient wants to try dialysis till stabilizes dw she agrees too increase KCL dw Dr [place] and Dr Finn. INR is high. Vit K and FFP today line tomorrow depending on INR levels HD after dw case management to be placed in [facility]
[2019-12-11] MEDS: proCHLORPERazine 10 MG/2 ML Vial 5 MG IV (16:01)
--- NOTE | 2019-12-11 16:29 | CASEMGMT ---
ROBERTO CM Note: Demographics, clinicals faxed to [facility]. Dialysis run sheets and hep panel not available yet. Chrissie RAGSDALEN ROBERTO ACM
--- NOTE | 2019-12-11 16:45 | NURSING ---
Answered call light. states that she was taking patient to the bathroom and on the way we fell. Notified ROBERTO Barnes that patient was on the floor with no injury.
--- NOTE | 2019-12-11 17:02 | PCM.CONS.GEN ---
Problem List (1) Chronic kidney disease (CKD) Status: Chronic (2) Acute on chronic congestive heart failure Status: Acute Qualifiers: Heart failure type: right-sided Qualified Code(s): I50.813 - Acute on chronic right heart failure (3) Supratherapeutic INR Status: Acute Reason for Consult Date of Consultation: 12/11/19 History of Present Illness: The patient is a 59 year old M and asked to see up Dr. Arevalo and a electronic copy of my surgical consult and recommendations would present in the charting. Been asked to place tunneled hemodialysis catheters. The patient by report has had 3 or 4 hospitalizations since July 2019. It is of note that April 2019 I was asked to urgently place tunneled dialysis catheters. Then on August 30, 2019 I was asked to remove them. He has had at least 3 hospitalizations since then. Most recently he was just discharged on November 30 with anasarca acute chronic congestive failure. He had been hospitalized from November 20 through November 30. He was now rehospitalized on December 07. I was asked to see him today. The patient states that he does not feel well off the dialysis. Claims that he is gained significant amount of fluid weight. As of December 07 his hemoglobin was 10.4 with hematocrit 35.1 and platelet count 266,000. His INR was elevated to 3.6. BUN was 38 creatinine 1.93. Today his INR remains elevated at 3.4. He states that he feels very poorly. He does not feel that he is getting benefit from the medical diuresis. COVID-19 testing was obtained on December 08, 2019 and was negative Past Medical History Past Medical History (Chronic Problems): Chronic Problems (Last Updated 10/30/19 @ 07:[address] Ade Finn MD) Chronic kidney disease (CKD) (Chronic) CHF (congestive heart failure) (Chronic) Morbid obesity with BMI of 50.0-59.9, adult (Chronic) correction current use of anticoagulant (Chronic) History of right and left heart catheterization (Chronic 02/18/98) Done s/p VSD repair Per Dr. Sherif Espinoza @ [facility]: normal coronaries, mildly elevated PA pressures Paroxysmal SVT (supraventricular tachycardia) (Chronic) Atrial fibrillation (Chronic) History of atrial flutter (Chronic) Attempted atrial flutter ablation @ [facility] X 1 in 1997 (unsuccessful), followed by Atrial flutter ablations X [address] Paul at [facility] in Apr and October of 1998 Chronic diastolic congestive heart failure (Chronic) History of patent ductus arteriosus as a child (Chronic) Repaired at age 3 years, done @ [facility] Nonrheumatic tricuspid valve regurgitation (Chronic) Leaflet used for VSD repair in past History of ventricular septal defect repair (Chronic) 1977 (pt approx age 18) using Dacron patch, done at [facility] Hyperlipidemia (Chronic) Hypertension (Chronic) Diabetes mellitus, type II (Chronic) History of radiofrequency ablation procedure for cardiac arrhythmia (Chronic) Attempted atrial flutter ablation @ [facility] X 1 (unsuccessful), followed by Atrial flutter ablations X [address] Paul at [facility] in Apr and October of 1998 Pulmonary hypertension, moderate to severe (Chronic) PASP 69 mmHg in September 2013 LASHAWN (obstructive sleep apnea) (Chronic) Medical History: Medical History (Last Updated 10/30/19 @ 07:[address] Ade Finn MD) correction current use of anticoagulant (Chronic) Z79.01 Paroxysmal SVT (supraventricular tachycardia) (Chronic) I47.1 Atrial fibrillation (Chronic) I48.91 History of atrial flutter (Chronic) Z86.79 Attempted atrial flutter ablation @ [facility] X 1 in 1997 (unsuccessful), followed by Atrial flutter ablations X [address] Paul at [facility] in Apr and October of 1998 Chronic diastolic congestive heart failure (Chronic) I50.32 History of patent ductus arteriosus as a child (Chronic) Z87.74 Repaired at age 3 years, done @ [facility] Nonrheumatic tricuspid valve regurgitation (Chronic) I36.1 Leaflet used for VSD repair in past Hyperlipidemia (Chronic) E78.5 Hypertension (Chronic) I10 Diabetes mellitus, type II (Chronic) E11.9 Pulmonary hypertension, moderate to severe (Chronic) I27.2 PASP 69 mmHg in September 2013 LASHAWN (obstructive sleep apnea) (Chronic) G47.33 History of arm fracture Z87.81 X2 History of paroxysmal supraventricular tachycardia (Inactive) Z86.79 Allergies albuterol Adverse Reaction (Verified 12/08/19 20:00) NEEDS FOLLOW-UP increased heart rate. amoxicillin trihydrate [From Augmentin] Adverse Reaction (Verified 12/08/19 20:00) Diarrhea indomethacin [From Indocin] Adverse Reaction (Verified 12/08/19 20:00) Nausea potassium clavulanate [From Augmentin] Adverse Reaction (Verified 12/08/19 20:00) Diarrhea Home Medications: Ambulatory Orders Medication Instructions Recorded Atorvastatin Calcium 20 mg PO QHS 04/16/19 Insulin Glargine [Lantus SoloStar 40 units SUBCUT BID pen 04/28/19 Pen] Insulin Lispro [Humalog KwikPen] 5 unit SUBCUT LUNCH insuln.pen 04/28/19 Insulin Lispro [Humalog KwikPen] 6 unit SUBCUT DINNER insuln.pen 04/28/19 Insulin Lispro [Humalog KwikPen] 7 unit SUBCUT BREAKFAST insuln.pen 04/28/19 Insulin Lispro [Humalog KwikPen] See Protocol SUBCUT ACHS 04/28/19 insuln.pen Metoprolol(XL)Succ [Toprol Xl 50 mg PO DAILY tab 04/28/19 (Beta Rakesh)] Amiodarone HCl 200 mg PO BID 08/08/19 Multivitamin [Daily Multiple 1 ea PO DAILY 10/28/19 Vitamin] Tamsulosin HCl [Flomax] 0.4 mg PO DAILY #90 cap 11/01/19 Acetaminophen [Tylenol] 625 mg PO Q6H PRN PRN 11/21/19 Docusate Sodium [Colace] 100 mg PO DAILY PRN PRN 11/21/19 Melatonin 3 mg PO QHS PRN 11/21/19 Multivitamin with Minerals 1 ea PO DAILY 11/21/19 [Multiple Vitamin] Warfarin [Coumadin] 3 mg PO DAILY 11/21/19 AcetaAZOLAMIDE [Diamox] 125 mg PO BID #60 tab 12/01/19 Bumetanide [Bumex] 1 mg PO BIDLX #60 tab 12/01/19 Potassium Chloride [K-Dur] 60 meq PO BIDCM #180 tab 12/01/19 Surgical History: Surgical History (Last Reviewed 10/28/19 @ 03:[address] Fredi Cobb, DO) History of right and left heart catheterization (Chronic) Onset Date: 02/18/98 Z98.890 Done s/p VSD repair Per Dr. Sherif Espinoza @ [facility]: normal coronaries, mildly elevated PA pressures History of ventricular septal defect repair (Chronic) Z87.1977 (pt approx age 18) using Dacron patch, done at [facility] History of radiofrequency ablation procedure for cardiac arrhythmia (Chronic) Z98.890 Attempted atrial flutter ablation @ [facility] X 1 (unsuccessful), followed by Atrial flutter ablations X [address] Paul at [facility] in Apr and October of 1998 Surgical History: - Psychiatric History: No pertinent psych hx Smoking Status: Former smoker Tobacco Use: Cigarettes - *Family History Maternal Family History: Family History (Last Reviewed 10/28/19 @ 03:[address] Fredi Cobb, DO) Mother Hypertension Diabetes CVA (cerebral vascular accident) Valvular heart disease Father CVA (cerebral vascular accident) Hypertension Hyperlipidemia History Items: Diabetes, High Cholesterol, Heart Disease, Hypertension, Stroke, - - Mother with history of concurrent valvular heart disease. Paternal Family History: Family History (Last Reviewed 10/28/19 @ 03:[address] Fredi Cobb, ) Mother Hypertension Diabetes CVA (cerebral vascular accident) Valvular heart disease Father CVA (cerebral vascular accident) Hypertension Hyperlipidemia History Items: High Cholesterol, Heart Disease, Hypertension, Stroke Review of Systems Constitutional: Denies: Fever HEENT: Denies: Difficulty Swallowing Cardiovascular: Reports: Chest Pressure, Chest Tightness Respiratory: Reports: Shortness of Breath. Denies: Cough Gastrointestinal: Denies: Abdominal Pain Endocrine: Reports: Change in Body Habitus - Physical Exam Vitals/I&O's: Vital Signs Temp Pulse Resp BP Pulse Ox 97.6 F L 51 L 18 101/58 L 97 12/11/19 14:40 12/11/19 14:40 12/11/19 14:40 12/11/19 14:40 12/11/19 14:40 Oxygen Flow Rate (L/min) 3 Oxygen Delivery Method Nasal Cannula Weight: 351 lb 3.142 oz Body Mass Index (BMI) 55.0 Finger Stick Blood Glucose 479 Intake and Output for Last 24 Hours 12/09/19 12/10/19 12/11/19 23:59 23:59 23:59 Intake Total 1153.81 / 1153.81 884.03 / 984.03 800 / 800 Output Total 3500 / 3500 2150 / 3300 2900 / 2900 Balance -2346.19 / -2346.19 -1265.97 / -2315.97 -2100 / -2099 General: Confused HEENT: Atraumatic Neck: Negative Carotid Bruits Lungs: - - Poor air exchange. Diminished in the bases Cardiovascular: Regular rate, Regular Rhythm Abdomen: Obese Extremities: No Calf Tenderness, - - Notable bilateral extremity swelling Psych/Mental Status: Flat Affect Microbiology Past 72 Hours 12/08/19 20:44 Blood Culture (Wb) #2 - No Site/Description Given Blood Culture - Preliminary No growth in 48 hours. 12/08/19 20:20 Blood Culture (Wb) - Right Forearm Blood Culture - Preliminary No growth in 48 hours. Laboratory Results 12/10/19 22:13: POC Glucose 147 H 12/11/19 05:20: PT 33.7 H, INR 3.4 12/11/19 05:20: WBC 7.2, RBC 4.26 L, Hgb 10.9 L, Hct 37.2 L, MCV 87.3, MCH 25.6 L, MCHC 29.3 L, RDW Std Deviation 58.4 H, RDW Coeff of Janiya 18.6 H, Plt Count 297, MPV 9.1, Immature Gran % (Auto) 0.700, Neut % (Auto) 71.2 H, Lymph % (Auto) 10.9 L, [place] % (Auto) 12.8 H, Eos % (Auto) 3.8, Baso % (Auto) 0.6, Absolute Neuts (auto) 5.1, Absolute Lymphs (auto) 0.78 L, Nucleated RBC % 0.4 12/11/19 05:20: Sodium 134 L, Potassium 2.9 L, Chloride 91 L, Carbon Dioxide 34.0 H, Anion Gap 9, BUN 51 H, Creatinine 2.32 H, Estim Creat Clear Calc 32.35, Est GFR (MDRD) Af Amer 37 L, Est GFR (MDRD) Non-Af 31 L, BUN/Creatinine Ratio 22.0 H, Glucose 97, Calcium 8.3 L, Magnesium 2.9 H 12/11/19 07:49: POC Glucose 99 12/11/19 12:33: POC Glucose 193 H Current Medications Acetaminophen (Tylenol) 650 mg PO Q6H PRN PRN PRN Reason: Pain Score 1-10/Temp > 100.7 F Last Admin: 12/11/19 05:10 Dose: 650 mg Documented by: Al Hydroxide/Mg Hydroxide (Mylanta Ii) 30 ml PO Q6H PRN PRN PRN Reason: Gastric Burning Amiodarone HCl (Cordarone) 200 mg PO BID [facility] Last Admin: 12/11/19 09:02 Dose: 200 mg Documented by: Atorvastatin Calcium (Lipitor) 20 mg PO QHS [facility] Last Admin: 12/10/19 22:22 Dose: 20 mg Documented by: Furosemide (Lasix) 60 mg IV Q8 [facility] Clindamycin Phosphate 900 mg/ (Dextrose) 106 mls @ 150 mls/hr IV PREOP ONE Stop: 12/12/19 07:42 Insulin Glargine (Lantus (Bkc)) 25 units SC 1100,2200 [facility] Last Admin: 12/11/19 12:35 Dose: 25 units Documented by: Insulin Human Lispro (Humalog Kwikpen (Bkc)) 0 unit SC ACHS [facility]; Protocol Last Admin: 12/11/19 12:34 Dose: 3 units Documented by: Insulin Human Lispro (Humalog Kwikpen (Bkc)) 7 unit SC BREAKFAST [facility] Last Admin: 12/11/19 09:02 Dose: 7 units Documented by: Insulin Human Lispro (Humalog Kwikpen (Bkc)) 6 unit SC DINNER [facility] Last Admin: 12/10/19 17:49 Dose: 6 units Documented by: Insulin Human Lispro (Humalog Kwikpen (Bkc)) 5 unit SC LUNCH [facility] Last Admin: 12/11/19 12:35 Dose: 5 units Documented by: Melatonin (Melatonin) 3 mg PO QHS PRN PRN PRN Reason: SLEEP Metoprolol Succinate (Toprol Xl (Beta Rakesh)) 50 mg PO DAILY [facility] Last Admin: 12/11/19 11:45 Dose: Not Given Documented by: Morphine Sulfate () 2 mg IV Q3H PRN PRN PRN Reason: Pain Score 6-10/10 Nitroglycerin (Nitrostat) 0.4 mg SUBLINGUAL Q5M PRN PRN Reason: CARDIAC/CHEST PAIN Oxycodone HCl (Oxyir) 5 mg PO Q4H PRN PRN PRN Reason: Pain Score 4-5/10 Last Admin: 12/10/19 14:30 Dose: 5 mg Documented by: Potassium Chloride (K-Dur) 80 meq PO BIDCM [facility] Prochlorperazine Edisylate (Compazine Iv) 5 mg IV Q4H PRN PRN PRN Reason: Breakthrough Nausea/Vomiting Last Admin: 12/11/19 16:01 Dose: 5 mg Documented by: Senna/Docusate Sodium (Senokot-S, Shey-Colace) 2 tablet PO BID PRN PRN PRN Reason: Constipation Sodium Chloride () 10 - 40 ml IV UD PRN PRN Reason: SALINE FLUSH Last Admin: 12/11/19 16:02 Dose: 10 ml Documented by: Tamsulosin HCl (Flomax) 0.4 mg PO DAILY [facility] Last Admin: 12/11/19 09:02 Dose: 0.4 mg Documented by: Assessment/Plan All Active Problems (Last Updated 10/30/19 @ 07:[address] Ade Finn MD) Acute on chronic congestive heart failure (Acute) Supratherapeutic INR (Acute) 59-year-old gentleman who continues to show medical deterioration. Quality of life appears to continue to decline. With direct questioning however he seems to desire to be placed back on hemodialysis. I have discussed with him recommendations for placing a right internal jugular possible left internal jugular tunneled dialysis catheter. He is aware that this is not a risk-free event secondary to his medical comorbidities and morbid obesity. He has had an opportunity to ask and have questions answered. As discussed with the patient's supratherapeutic anticoagulation will need to be corrected. We will then subsequently schedule and proceed as indicated. I appreciate the ongoing opportunity of assisting with his surgical care. I must remark about how his quality of life appears significantly diminished. Rony Kingston M.D., F.A.C.S.
[2019-12-11 18:05] LABS: Bedside Glucose 95 mg/dL (70-110)
--- NOTE | 2019-12-11 18:38 | NURSING ---
1645 received phone call that pt had ambulated to bathroom with and had fallen. entered room to find pt on the floor with no apparent injuries. reports that she lowered pt to the ground after his knees gave out. reports that he was using his walker at time of fall and that he did not have any precipitating factors. vitals taken and stable, Dr Finn notified. pt was moved back to bed using hoadam amari and several team members. after returning to bed, pt still with no obvious injuries and vitals taken again. bed exit applied and pt and reminded of pt safety factors.
[2019-12-11] MEDS: Atorvastatin Calcium 20 MG Tablet PO (21:27)
[2019-12-11] MEDS: Furosemide 100 MG/10 ML Vial 60 MG IV (21:33)
[2019-12-11 22:01] LABS: Bedside Glucose 105 mg/dL (70-110)
[2019-12-11] MEDS: Morphine 2 MG/ML Syringe IV (22:59)
[2019-12-12] VITALS (22 sets, daily range): BP systolic 98–135; BP diastolic 48–90; PULSE 55–86; RESP 16–20; TEMP 36.1–36.6; O2SAT 92–98; BMI 53.1
--- NOTE | 2019-12-12 05:27 | EKG12_ITS ---
Test Reason : DYSRHYTHMIA Blood Pressure : / mmHG Vent. Rate : 057 BPM Atrial Rate : 057 BPM P-R Int : 238 ms QRS Dur : 132 ms QT Int : 446 ms P-R-T Axes : 071 141 094 degrees QTc Int : 434 ms Sinus bradycardia with 1st degree A-V block with Premature supraventricular complexes Right bundle branch block Abnormal ECG Confirmed by IDRIS HAMLIN, ADAL ([id number]), rewrite editor JAVIER GREEN ([id number]) on 12/12/2019 7:52:46 AM Referred By: KANNAN Confirmed By:ADAL STEINBERG MD
[2019-12-12 05:55] LABS: Absolute Lymphocyte Count 0.72 X10^3/uL (0.83-4.51); Absolute Neutrophil Count 5.8 X10^3/uL (2.0-7.7); Basophil# 0.02 X10^3/uL; Basophil% 0.3 % (0-1); Eosinophil# 0.16 X10^3/uL; Hematocrit 34.8 % (40-54); Hemoglobin 10.4 g/dL (13.0-16.5); Lymphocyte # 0.72 X10^3/ul (4.0); Lymphocyte % 9.1 % (19-41); Mean Corp Hgb Conc 29.9 g/dL (32-36); Mean Corpuscular Hgb 25.7 pg (27.0-32.0); Mean Corpuscular Volume 86.1 fL (80-94); Monocyte# 1.22 X10^3/uL; Monocyte% 15.4 % (0-10); NRBC Flagged by Analyzer 0 % (0-5); Neutrophil # 5.79 X10^3/uL (2.7-7.7); Neutrophil % 72.8 % (47-70); Platelet Count 264 K/mm3 (150-450); RBC Distribution Width CV 18.5 % (11.6-14.6); RBC Distribution Width SD 57.3 fl (35.1-43.9); Red Blood Count 4.04 M/mm3 (4.6-6.2); White Blood Count 7.9 K/mm3 (4.4-11.0)
[2019-12-12] MEDS: Furosemide 100 MG/10 ML Vial 60 MG IV ×3 (06:06→22:23)
[2019-12-12 06:21] LABS: International Normalized Ratio 1.9; Prothrombin Time (Protime)PT. 21.2 SECONDS (11.7-14.9)
[2019-12-12 06:29] LABS: Anion Gap 7 (5-15); BUN 52 mg/dL (7-18); BUN/Creat Ratio 22.6 RATIO (10-20); Calcium,Total 8.1 mg/dL (8.5-10.1); Chloride 93 mmol/L (98-107); EST Glomerular Filtration Rate 31 mL/min (>60); Est Glom Filt Rate - Afr Amer 37 mL/min (>60); Estimated Creatinine Clearance 32.63 ml/min; Glucose 70 mg/dL (74-106); Potassium 2.8 mmol/L (3.5-5.1); Sodium Level 137 mmol/L (136-145)
[2019-12-12 06:35] LABS: Bedside Glucose 77 mg/dL (70-110)
--- NOTE | 2019-12-12 08:00 | PN_ITS ---
Objective: Chief complaint: Follow-up after admission for acute on chronic CHF and acute on chronic hypoxic respiratory failure. Patient seen and examined. No acute events overnight. Yesterday evening, patient was very weak and he had a fall. No significant injury. Barcenas catheter was placed because he could not get up and go to the bathroom. Today, urine is pink. Patient mentioned that his shortness of it is okay, stable. He remains on 3 to 4 L of oxygen. Other vital signs are stable. - Physical Exam Vitals/I&O's: Vital Signs Temp Pulse Resp BP Pulse Ox 97.6 F L 55 L 20 H 114/90 H 98 12/12/19 03:00 12/12/19 04:00 12/12/19 03:00 12/12/19 03:00 12/12/19 03:00 Oxygen Flow Rate (L/min) 4 Oxygen Delivery Method Nasal Cannula Weight: 349 lb 13.977 oz Body Mass Index (BMI) 55.0 Finger Stick Blood Glucose 479 Intake and Output for Last 24 Hours 12/10/19 12/11/19 12/12/19 23:59 23:59 23:59 Intake Total 884.03 / 984.03 1293.27 / 1293.27 Output Total 2150 / 3300 3300 / 3750 850 / 850 Balance -1265.97 / -2315.97 -2006.73 / -2456.73 -850 / -850 General: Alert, Oriented x3, Cooperative, - - Minimally short of breath. HEENT: Atraumatic, PERRLA, EOMI, Normocephalic Oral: Moist Mucosa, No Gingival or Mucosal Lesions/ Ulcerations Neck: Supple, No JVD, Negative Carotid Bruits, Trachea Midline, Thyroid Normal Size and Texture Lungs: Clear to auscultation, No rhonchi, No wheeze, No rales, Diminished Cardiovascular: Regular rate, Regular Rhythm, Normal S1, Normal S2, PMI Normal Abdomen: Bowel Sounds Present, Soft, Non Tender, Non-Distended, No Hepato- splenomegaly, Obese Extremities: No clubbing, No cyanosis, Edema Skin: No rashes, Ulcer/ Wound Lymphatic: No Cervical, Supraclavicular, or Inguinal Adenopathy Neurological: Cranial nerves II-XII grossly intact, Neuro grossly intact Psych/Mental Status: Appropriate, Flat Affect, Alert and oriented to time, place, person, mood and affect Microbiology Past 72 Hours 12/08/19 20:44 Blood Culture (Wb) #2 - No Site/Description Given Blood Culture - Preliminary No growth in 48 hours. 12/08/19 20:20 Blood Culture (Wb) - Right Forearm Blood Culture - Preliminary No growth in 48 hours. Laboratory Results 12/11/19 12:33: POC Glucose 193 H 12/11/19 17:24: POC Glucose 95 12/11/19 21:43: POC Glucose 105 12/12/19 05:26: WBC 7.9, RBC 4.04 L, Hgb 10.4 L, Hct 34.8 L, MCV 86.1, MCH 25.7 L, MCHC 29.9 L, RDW Std Deviation 57.3 H, RDW Coeff of Janiya 18.5 H, Plt Count 264, MPV 9.0, Immature Gran % (Auto) 0.400, Neut % (Auto) 72.8 H, Lymph % (Auto) 9.1 L, [place] % (Auto) 15.4 H, Eos % (Auto) 2.0, Baso % (Auto) 0.3, Absolute Neuts (auto) 5.8, Absolute Lymphs (auto) 0.72 L, Nucleated RBC % 0 12/12/19 05:26: Sodium 137, Potassium 2.8 L, Chloride 93 L, Carbon Dioxide 37.0 H, Anion Gap 7, BUN 52 H, Creatinine 2.30 H, Estim Creat Clear Calc 32.63, Est GFR (MDRD) Af Amer 37 L, Est GFR (MDRD) Non-Af 31 L, BUN/Creatinine Ratio 22.6 H , Glucose 70 L, Calcium 8.1 L 12/12/19 05:26: PT 21.2 H, INR 1.9 12/12/19 06:26: POC Glucose 77 Current Medications Acetaminophen (Tylenol) 650 mg PO Q6H PRN PRN PRN Reason: Pain Score 1-10/Temp > 100.7 F Last Admin: 12/11/19 21:32 Dose: 650 mg Documented by: Al Hydroxide/Mg Hydroxide (Mylanta Ii) 30 ml PO Q6H PRN PRN PRN Reason: Gastric Burning Amiodarone HCl (Cordarone) 200 mg PO BID [facility] Last Admin: 12/11/19 21:27 Dose: 200 mg Documented by: Atorvastatin Calcium (Lipitor) 20 mg PO QHS [facility] Last Admin: 12/11/19 21:27 Dose: 20 mg Documented by: Furosemide (Lasix) 60 mg IV Q8 [facility] Last Admin: 12/12/19 06:06 Dose: 60 mg Documented by: Insulin Glargine (Lantus (Bkc)) 25 units SC 1100,2200 [facility] Last Admin: 12/11/19 21:45 Dose: 25 units Documented by: Insulin Human Lispro (Humalog Kwikpen (Bkc)) 0 unit SC ACHS [facility]; Protocol Last Admin: 12/12/19 06:27 Dose: Not Given Documented by: Insulin Human Lispro (Humalog Kwikpen (Bkc)) 7 unit SC BREAKFAST [facility] Last Admin: 12/12/19 06:28 Dose: Not Given Documented by: Insulin Human Lispro (Humalog Kwikpen (Bkc)) 6 unit SC DINNER [facility] Last Admin: 12/11/19 17:27 Dose: Not Given Documented by: Insulin Human Lispro (Humalog Kwikpen (Bkc)) 5 unit SC LUNCH [facility] Last Admin: 12/11/19 12:35 Dose: 5 units Documented by: Melatonin (Melatonin) 3 mg PO QHS PRN PRN PRN Reason: SLEEP Metoprolol Succinate (Toprol Xl (Beta Rakesh)) 50 mg PO DAILY [facility] Last Admin: 12/11/19 11:45 Dose: Not Given Documented by: Morphine Sulfate () 2 mg IV Q3H PRN PRN PRN Reason: Pain Score 6-10/10 Last Admin: 12/11/19 22:59 Dose: 2 mg Documented by: Nitroglycerin (Nitrostat) 0.4 mg SUBLINGUAL Q5M PRN PRN Reason: CARDIAC/CHEST PAIN Oxycodone HCl (Oxyir) 5 mg PO Q4H PRN PRN PRN Reason: Pain Score 4-5/10 Last Admin: 12/10/19 14:30 Dose: 5 mg Documented by: Potassium Chloride (K-Dur) 80 meq PO BIDCM [facility] Last Admin: 12/11/19 17:35 Dose: 80 meq Documented by: Prochlorperazine Edisylate (Compazine Iv) 5 mg IV Q4H PRN PRN PRN Reason: Breakthrough Nausea/Vomiting Last Admin: 12/11/19 16:01 Dose: 5 mg Documented by: Senna/Docusate Sodium (Senokot-S, Shey-Colace) 2 tablet PO BID PRN PRN PRN Reason: Constipation Sodium Chloride () 10 - 40 ml IV UD PRN PRN Reason: SALINE FLUSH Last Admin: 12/11/19 17:31 Dose: 10 ml Documented by: Tamsulosin HCl (Flomax) 0.4 mg PO DAILY [facility] Last Admin: 12/11/19 09:02 Dose: 0.4 mg Documented by: Medical Necessity - Tobacco Use Smoking Status: Former smoker Tobacco Use: Cigarettes Assessment/Plan All Active Problems (Last Updated 10/30/19 @ 07:[address] Ade Finn MD) Acute on chronic congestive heart failure (Acute) Supratherapeutic INR (Acute) This is a 59 years old male patient presented to the emergency room because of worsening shortness of breath and weight gain and he was found to have acute on chronic diastolic CHF complicated by acute on chronic hypoxic respiratory fa ilure. #1 acute on chronic diastolic CHF/right ventricular rotation/severe pulmonary hypertension: He was switched to IV Lasix every 8 hours, remains on metoprolol. He has had good urine output, his weight is down by almost 11 pounds. Remained on oxygen at 3 to 4 L, stable. He had 2D echocardiogram on November 21, 2019 that revealed ejection fraction of 55%, moderately dilated right ventricle, RVSP of 71 consistent with severe pulmonary hypertension. Patient was on hemodialysis from April to July 2019. Nephrology consulted and recommended to restart hemodialysis. Plan for placement of tunneled hemodialysis catheter today by general surgery. #2 acute on chronic hypoxic respiratory failure: Secondary to #1. Patient reported some improvement of his shortness of breath, remained on oxygen at 3 to 4 L. Plan as above. #3 stage III/stage IV chronic kidney disease: Serum creatinine has been around 2 to 2.6 mg/dL in the last 6 months. Today, it is 2.33, close to baseline while on IV Lasix for diuresis. Nephrology consulted, recommended to restart hemodialysis. Plan for placement of tunneled dialysis catheter today and then to start dialysis according to nephrology. #4 hypokalemia: Secondary to IV Lasix. He is on K. Dur 80 mEq p.o. twice daily. #5 supratherapeutic INR: Patient received vitamin K. Today's INR is 1.9. He does have some pink urine after placement of Barcenas catheter, likely due to uretheral irritation. Plan to monitor. #6 paroxysmal atrial fibrillation: Heart rate has been in the 50s, stable. Continue amiodarone and metoprolol for rate control, keep holding Coumadin as above. #7 hypertension: Blood pressure stable, continue metoprolol. #8 history of PDA/valvular heart disease: Status post repair, stable. #9 obstructive sleep apnea: Continue CPAP at night. #10 type 2 diabetes mellitus: Blood sugar has been on the lower side. Continue Humalog 3 times daily, Lantus twice daily and insulin sliding scale. We may need to cut back on his Lantus. #11 hyperlipidemia: Continue statins. #12 DVT prophylaxis: INR is 1.9. This note was generated with [employer] dictation software. It may contain incorrect words, spelling, and punctuation that were not noted in checking the note before signing. Inpatient E&M: 48516 Subs Hosp L2
[2019-12-12] MEDS: 0.9% Saline Lock 10 ML Syringe IV ×4 (08:43→22:24)
[2019-12-12] MEDS: Morphine 2 MG/ML Syringe IV (08:43)
[2019-12-12] MEDS: Potassium Chloride 10mEq/100mL 10 MEQ/100 ML IV.SOLN. 100 MEQ IV BOLUS ×4 (10:35→16:40)
[2019-12-12 10:55] LABS: Bedside Glucose 79 mg/dL (70-110)
[2019-12-12] MEDS: Heparin 10,000 UNITS/10 ML Vial 10000 UNITS (11:12)
--- NOTE | 2019-12-12 12:16 | NURSING ---
Report called to [facility] in [place]
[2019-12-12 12:31] LABS: Bedside Glucose 131 mg/dL (70-110)
[2019-12-12 12:56] LABS: Bedside Glucose 77 mg/dL (70-110)
[2019-12-12] MEDS: Bupivacaine Mpf 0.5% 30 ML VIAL (13:00)
[2019-12-12] MEDS: Dextrose 50%-Water 25 GM/50 ML DISP.SYRIN IV (13:22)
--- NOTE | 2019-12-12 13:44 | OP.PCM_ITS ---
Problem List (1) Chronic kidney disease (CKD) Status: Chronic (2) Acute on chronic congestive heart failure Status: Acute Qualifiers: Heart failure type: right-sided Qualified Code(s): I50.813 - Acute on chronic right heart failure (3) Supratherapeutic INR Status: Acute Report of Operation Date of Procedure: 12/12/19 Pre-Operative Diagnosis: Congestive heart failure, chronic renal failure, need for hemodialysis Post-Operative Diagnosis: Same Surgery/Procedure Performed:: Right internal jugular double-lumen 19 cm pre- curved palindrome catheter placement Description of Surgical Findings:: Timeout and informed consent was obtained. 59-year-old gentleman was taken the operating room. He was placed in the head of the elevated faded position because he was unable to lie supine because of shortness of breath. Clindamycin was given 900 mg intravenously. Plans were made to proceed with monitored anesthesia care but with sedation per anesthesia the patient became apneic. Anesthesia converted to a general anesthesia. An LMA was placed. The right neck and chest were sterilely prepped and draped. Under ultrasound guidance 1% lidocaine mixed 50-50 with 0.5% Marcaine was used as local anesthetic. The procedure total of 18 cc was used. Local was instilled that a micropuncture needle was inserted in the right internal jugular vein micropuncture wire then a micropuncture sheath an 035 J-wire. Local was instilled down upon the right chest wall. An exit site was selected. The 19 cm pre-curved palindrome catheter was tunneled from the chest to the neck site. Serial dilatation was performed. The sheath dilator was inserted. The catheter was advanced through the sheath the sheath was split the catheter was positioned to be in a nice curvilinear position. The catheter was flushed with saline and then 2 cc per channel of heparinized saline. The neck site was closed with interrupted 5-0 Vicryl subdermal stitch. The catheter was secured to the skin with interrupted 3-0 nylon. Telfa OpSite dressing applied and silver impregnated dressing applied. Sponge and instrument and needle counts were reported the surgeon to be correct. Blood loss was minimal. He was taken to the recovery room in satisfactory addition. He was spontaneously breathing. Stat portable chest x-ray is pending. Specimens none. Drains none. Blood loss minimal. Rony Kingston M.D., F.A.C.S. Type of Anesthesia:: General Anesthesiologist: Kemi Zavala
--- NOTE | 2019-12-12 13:45 | PN.RENAL_ITS ---
Subjective: no new events - Physical Exam Vitals/I&O's: Vital Signs Temp Pulse Resp BP Pulse Ox 97.6 F L 64 16 98/77 96 12/12/19 11:54 12/12/19 12:32 12/12/19 12:32 12/12/19 12:32 12/12/19 12:32 Oxygen Flow Rate (L/min) 3 Oxygen Delivery Method Room Air Weight: 158.7 kg Body Mass Index (BMI) 53.1 Finger Stick Blood Glucose 479 Intake and Output for Last 24 Hours 12/10/19 12/11/19 12/12/19 23:59 23:59 23:59 Intake Total 884.03 / 984.03 1293.27 / 1293.27 120 / 120 Output Total 2150 / 3300 3300 / 3750 1650 / 1650 Balance -1265.97 / -2315.97 -2006.73 / -2456.73 -1530 / -1530 General: Alert, Oriented x3, Cooperative HEENT: Atraumatic, PERRLA, EOMI, Normocephalic Neck: Supple, No JVD, Negative Carotid Bruits Lungs: Clear to auscultation, Normal air movement Cardiovascular: Regular rate, No murmurs Abdomen: Bowel Sounds Present, Soft, Non Tender Extremities: Capillary Refill Less than 3 Seconds, Edema Skin: No rashes, No breakdown Musculoskeletal: No Tenderness to Palpation of Joints or Extremities Neurological: Cranial nerves II-XII grossly intact Psych/Mental Status: Normal Affect, Appropriate Microbiology Past 72 Hours 12/08/19 20:44 Blood Culture (Wb) #2 - No Site/Description Given Blood Culture - Preliminary No growth in 48 hours. 12/08/19 20:20 Blood Culture (Wb) - Right Forearm Blood Culture - Preliminary No growth in 48 hours. Laboratory Results 12/11/19 17:24: POC Glucose 95 12/11/19 21:43: POC Glucose 105 12/12/19 05:26: WBC 7.9, RBC 4.04 L, Hgb 10.4 L, Hct 34.8 L, MCV 86.1, MCH 25.7 L, MCHC 29.9 L, RDW Std Deviation 57.3 H, RDW Coeff of Janiya 18.5 H, Plt Count 264, MPV 9.0, Immature Gran % (Auto) 0.400, Neut % (Auto) 72.8 H, Lymph % (Auto) 9.1 L, [place] % (Auto) 15.4 H, Eos % (Auto) 2.0, Baso % (Auto) 0.3, Absolute Neuts (auto) 5.8, Absolute Lymphs (auto) 0.72 L, Nucleated RBC % 0 12/12/19 05:26: Sodium 137, Potassium 2.8 L, Chloride 93 L, Carbon Dioxide 37.0 H, Anion Gap 7, BUN 52 H, Creatinine 2.30 H, Estim Creat Clear Calc 32.63, Est GFR (MDRD) Af Amer 37 L, Est GFR (MDRD) Non-Af 31 L, BUN/Creatinine Ratio 22.6 H , Glucose 70 L, Calcium 8.1 L 12/12/19 05:26: PT 21.2 H, INR 1.9 12/12/19 06:26: POC Glucose 77 12/12/19 08:28: POC Glucose 79 12/12/19 10:53: POC Glucose 77 12/12/19 12:26: POC Glucose 131 H Current Medications Acetaminophen (Tylenol) 650 mg PO Q6H PRN PRN PRN Reason: Pain Score 1-10/Temp > 100.7 F Last Admin: 12/11/19 21:32 Dose: 650 mg Documented by: Al Hydroxide/Mg Hydroxide (Mylanta Ii) 30 ml PO Q6H PRN PRN PRN Reason: Gastric Burning Amiodarone HCl (Cordarone) 200 mg PO BID [facility] Last Admin: 12/11/19 21:27 Dose: 200 mg Documented by: Atorvastatin Calcium (Lipitor) 20 mg PO QHS [facility] Last Admin: 12/11/19 21:27 Dose: 20 mg Documented by: Dextrose (D50w Syringe) 0 gm IV X1 PRN; Protocol PRN Reason: Hypoglycemia Last Admin: 12/12/19 13:22 Dose: 12.5 gm Documented by: Furosemide (Lasix) 60 mg IV Q8 [facility] Last Admin: 12/12/19 06:06 Dose: 60 mg Documented by: Glucagon () 1 mg IM .X1 PRN PRN Reason: Hypoglycemia Insulin Glargine (Lantus (Bkc)) 25 units SC 1100,2200 [facility] Last Admin: 12/11/19 21:45 Dose: 25 units Documented by: Insulin Human Lispro (Humalog Kwikpen (Bkc)) 0 unit SC ACHS [facility]; Protocol Last Admin: 12/12/19 13:10 Dose: Not Given Documented by: Insulin Human Lispro (Humalog Kwikpen (Bkc)) 7 unit SC BREAKFAST [facility] Last Admin: 12/12/19 06:28 Dose: Not Given Documented by: Insulin Human Lispro (Humalog Kwikpen (Bkc)) 6 unit SC DINNER [facility] Last Admin: 12/11/19 17:27 Dose: Not Given Documented by: Insulin Human Lispro (Humalog Kwikpen (Bkc)) 5 unit SC LUNCH [facility] Last Admin: 12/12/19 12:00 Dose: Not Given Documented by: Melatonin (Melatonin) 3 mg PO QHS PRN PRN PRN Reason: SLEEP Metoprolol Succinate (Toprol Xl (Beta Rakesh)) 50 mg PO DAILY [facility] Last Admin: 12/11/19 11:45 Dose: Not Given Documented by: Morphine Sulfate () 2 mg IV Q3H PRN PRN PRN Reason: Pain Score 6-10/10 Last Admin: 12/12/19 08:43 Dose: 2 mg Documented by: Nitroglycerin (Nitrostat) 0.4 mg SUBLINGUAL Q5M PRN PRN Reason: CARDIAC/CHEST PAIN Oxycodone HCl (Oxyir) 5 mg PO Q4H PRN PRN PRN Reason: Pain Score 4-5/10 Last Admin: 12/10/19 14:30 Dose: 5 mg Documented by: Potassium Chloride (K-Dur) 80 meq PO BIDCM [facility] Last Admin: 12/11/19 17:35 Dose: 80 meq Documented by: Prochlorperazine Edisylate (Compazine Iv) 5 mg IV Q4H PRN PRN PRN Reason: Breakthrough Nausea/Vomiting Last Admin: 12/11/19 16:01 Dose: 5 mg Documented by: Senna/Docusate Sodium (Senokot-S, Shey-Colace) 2 tablet PO BID PRN PRN PRN Reason: Constipation Sodium Chloride () 10 - 40 ml IV UD PRN PRN Reason: SALINE FLUSH Last Admin: 12/12/19 10:35 Dose: 10 ml Documented by: Tamsulosin HCl (Flomax) 0.4 mg PO DAILY [facility] Last Admin: 12/11/19 09:02 Dose: 0.4 mg Documented by: Medical Necessity - Tobacco Use Smoking Status: Former smoker Tobacco Use: Cigarettes Assessment/Plan All Active Problems (Last Updated 10/30/19 @ 07:[address] Ade Finn MD) Acute on chronic congestive heart failure (Acute) Supratherapeutic INR (Acute) MOUNA CKD 3 CHF several admissions to hospital with fluid overload. generally unstable since coming off dialysis fluid issues, hypokalemia, alkaosis, renal failure plan HD today once line in plan to keep on dialysis for now
--- NOTE | 2019-12-12 14:00 | RAD_ITS ---
STUDY: X-RAY CHEST REASON FOR EXAM: Male, 59 years old. POST HEMODIALYSIS CATH PLACEMENT TECHNIQUE: Single AP portable view of the chest. COMPARISON: Comparison is made with prior study dated 12/08/2019. FINDINGS: A right-sided double-lumen catheter is seen with the tip in the proximal portion of the superior vena cava. EKG electrodes are seen. Small right pleural effusion with infiltration at the right lung base. Patchy infiltrates in the left lung. Blunting of the right costophrenic angle. Sternal cerclage wires and vascular clips are present from a prior sternotomy and coronary artery bypass graft procedure (CABG). Moderate cardiomegaly. Normal mediastinum and kelsie. Normal visualized pulmonary arteries. There is atherosclerotic tortuosity of the aortic arch and descending thoracic aorta. There are diffuse degenerative changes of the visualized thoracic spine. Normal visualized ribs, clavicles, and shoulders. There is no demonstrated abnormality of the visualized soft tissue structures of the upper abdomen. RAD/CXR for Line Placement IMPRESSION: The tip of the hemodialysis catheter is in the proximal portion of the superior vena cava. Electronically Signed: Fortunato Francisco, at 14:26 EDT , Service support ,
[2019-12-12 14:20] LABS: Bedside Glucose 95 mg/dL (70-110)
--- NOTE | 2019-12-12 14:56 | CASEMGMT ---
Addendum entered by Lani Carballo 12/12/19 15:11: Per Zander at [facility], pt is medically clear and will be TTS at 1130. Awaiting financial clearance at this time. Pt set to get 1st treatment at this time. Angel MEJIA CM Original Note: Updated clinicals faxed to [facility] admissions at this time as well as to the local [facility]. Pt is pending 1st treatment and hep b panel at this time and those will be faxed once obtained. Angel MEJIA CM
[2019-12-12] MEDS: Tamsulosin HCl 0.4 MG Capsule PO (15:25)
[2019-12-12] MEDS: Amiodarone 200 MG Tablet PO ×2 (15:25→22:19)
[2019-12-12 18:46] LABS: Bedside Glucose 102 mg/dL (70-110)
[2019-12-12] MEDS: Acetaminophen 325 MG Tablet 650 MG PO (20:21)
[2019-12-12] MEDS: Atorvastatin Calcium 20 MG Tablet PO (22:19)
[2019-12-12 22:36] LABS: Bedside Glucose 148 mg/dL (70-110)
[2019-12-12] MEDS: MELATONIN 3 MG TABLET PO (23:51)
[2019-12-13] VITALS (12 sets, daily range): BP systolic 104–139; BP diastolic 55–69; PULSE 60–66; RESP 16–18; TEMP 36.2–36.7; O2SAT 94–97
[2019-12-13] MEDS: 0.9% Saline Lock 10 ML Syringe IV ×2 (01:31→05:15)
[2019-12-13] MEDS: Morphine 2 MG/ML Syringe IV (01:31)
[2019-12-13] MEDS: Acetaminophen 325 MG Tablet 650 MG PO (03:33)
[2019-12-13] MEDS: Furosemide 100 MG/10 ML Vial 60 MG IV ×3 (05:15→20:55)
[2019-12-13 07:58] LABS: Absolute Lymphocyte Count 0.64 X10^3/uL (0.83-4.51); Absolute Neutrophil Count 5.7 X10^3/uL (2.0-7.7); Basophil# 0.03 X10^3/uL; Basophil% 0.4 % (0-1); Eosinophil# 0.13 X10^3/uL; Eosinophils% 1.7 % (0-5); Hematocrit 34.1 % (40-54); Hemoglobin 10.2 g/dL (13.0-16.5); Lymphocyte # 0.64 X10^3/ul (4.0); Lymphocyte % 8.3 % (19-41); Mean Corp Hgb Conc 29.9 g/dL (32-36); Mean Corpuscular Hgb 26.3 pg (27.0-32.0); Mean Corpuscular Volume 87.9 fL (80-94); Mean Platelet Vol. 8.9 fl (6.2-12.0); Monocyte# 1.19 X10^3/uL; Monocyte% 15.4 % (0-10); NRBC Flagged by Analyzer 0.4 % (0-5); Neutrophil # 5.73 X10^3/uL (2.7-7.7); Neutrophil % 73.8 % (47-70); POSITIVE MORPHOLOGY YES; Platelet Count 236 K/mm3 (150-450); RBC Distribution Width CV 18.9 % (11.6-14.6); RBC Distribution Width SD 59.7 fl (35.1-43.9); Red Blood Count 3.88 M/mm3 (4.6-6.2); White Blood Count 7.8 K/mm3 (4.4-11.0)
--- NOTE | 2019-12-13 08:00 | PCM.PROGNOTE ---
Subjective: Chief complaint: Follow-up after admission for acute on chronic CHF, acute on chronic hypoxic respiratory failure and acute kidney injury on top of stage III chronic kidney disease. Patient seen and examined. No acute events overnight. Currently, he is on hemodialysis. Mentioned that his breathing is okay, at baseline. Still feeling weak and tired. No new complaints. His vital signs are stable. - Physical Exam Vitals/I&O's: Vital Signs Temp Pulse Resp BP Pulse Ox 97.7 F L 61 18 128/65 H 96 12/13/19 05:13 12/13/19 07:00 12/13/19 05:13 12/13/19 05:13 12/13/19 05:13 Oxygen Flow Rate (L/min) 3 Oxygen Delivery Method Nasal Cannula Weight: 348 lb 5.286 oz Body Mass Index (BMI) 53.1 Finger Stick Blood Glucose 95 Intake and Output for Last 24 Hours 12/11/19 12/12/19 12/13/19 23:59 23:59 23:59 Intake Total 1293.27 / 1293.27 1576 / 1576 375 / 375 Output Total 3300 / 3750 2750 / 2750 400 / 400 Balance -2006.73 / -2456.73 -1174 / -1174 -25 / -25 General: Alert, Oriented x3, Cooperative, - - Minimally short of breath. HEENT: Atraumatic, PERRLA, EOMI, Normocephalic Oral: Moist Mucosa, No Gingival or Mucosal Lesions/ Ulcerations Neck: Supple, No JVD, Negative Carotid Bruits, Trachea Midline, Thyroid Normal Size and Texture Lungs: No wheeze, No rales, Diminished, Rhonchi, - - Decreased breath sounds bilateral, occasional rhonchi. Cardiovascular: Regular rate, Regular Rhythm, Normal S1, Normal S2, PMI Normal Abdomen: Bowel Sounds Present, Soft, Non Tender, Non-Distended, No Hepato-splenomegaly, Obese Extremities: No clubbing, No cyanosis, Edema Skin: No rashes, Ulcer/ Wound Lymphatic: No Cervical, Supraclavicular, or Inguinal Adenopathy Neurological: Cranial nerves II-XII grossly intact, Neuro grossly intact Psych/Mental Status: Normal Affect, Appropriate, Alert and oriented to time, place, person, mood and affect Microbiology Past 72 Hours 12/08/19 20:44 Blood Culture (Wb) #2 - No Site/Description Given Blood Culture - Preliminary No growth in 48 hours. 12/08/19 20:20 Blood Culture (Wb) - Right Forearm Blood Culture - Preliminary No growth in 48 hours. Laboratory Results 12/12/19 08:28: POC Glucose 79 12/12/19 10:53: POC Glucose 77 12/12/19 12:26: POC Glucose 131 H 12/12/19 14:15: POC Glucose 95 12/12/19 16:51: POC Glucose 102 12/12/19 20:10: Hep B Core Total Ab Pending 12/12/19 20:10: Hep Bs Antigen Pending, Hep Bs Antibody Pending 12/12/19 22:12: POC Glucose 148 H 12/13/19 07:50: WBC Pending, RBC Pending, Hgb Pending, Hct Pending, MCV Pending, MCH Pending, MCHC Pending, RDW Std Deviation Pending, RDW Coeff of Janiya Pending, Plt Count Pending, Neut % (Auto) Pending, Absolute Neuts (auto) Pending 12/13/19 07:50: Sodium Pending, Potassium Pending, Chloride Pending, Carbon Dioxide Pending, Anion Gap Pending, BUN Pending, Creatinine Pending, Est GFR (MDRD) Af Amer Pending, Est GFR (MDRD) Non-Af Pending, BUN/Creatinine Ratio Pending, Glucose Pending, Calcium Pending Current Medications Acetaminophen (Tylenol) 650 mg PO Q6H PRN PRN PRN Reason: Pain Score 1-10/Temp > 100.7 F Last Admin: 12/13/19 03:33 Dose: 650 mg Documented by: Al Hydroxide/Mg Hydroxide (Mylanta Ii) 30 ml PO Q6H PRN PRN PRN Reason: Gastric Burning Amiodarone HCl (Cordarone) 200 mg PO BID [facility] Last Admin: 12/12/19 22:19 Dose: 200 mg Documented by: Atorvastatin Calcium (Lipitor) 20 mg PO QHS [facility] Last Admin: 12/12/19 22:19 Dose: 20 mg Documented by: Dextrose (D50w Syringe) 0 gm IV X1 PRN; Protocol PRN Reason: Hypoglycemia Last Admin: 12/12/19 13:22 Dose: 12.5 gm Documented by: Furosemide (Lasix) 60 mg IV Q8 [facility] Last Admin: 12/13/19 05:15 Dose: 60 mg Documented by: Glucagon () 1 mg IM .X1 PRN PRN Reason: Hypoglycemia Insulin Glargine (Lantus (Bkc)) 25 units SC 1100,2200 [facility] Last Admin: 12/12/19 22:21 Dose: 25 units Documented by: Insulin Human Lispro (Humalog Kwikpen (Bk)) 0 unit SC ACHS [facility]; Protocol Last Admin: 12/12/19 22:14 Dose: Not Given Documented by: Insulin Human Lispro (Humalog Kwikpen ([facility])) 7 unit SC BREAKFAST [facility] Last Admin: 12/12/19 06:28 Dose: Not Given Documented by: Insulin Human Lispro (Humalog Kwikpen ([facility])) 6 unit SC DINNER [facility] Last Admin: 12/12/19 17:06 Dose: Not Given Documented by: Insulin Human Lispro (Humalog Kwikpen ([facility])) 5 unit SC LUNCH [facility] Last Admin: 12/12/19 12:00 Dose: Not Given Documented by: Melatonin (Melatonin) 3 mg PO QHS PRN PRN PRN Reason: SLEEP Last Admin: 12/12/19 23:51 Dose: 3 mg Documented by: Metoprolol Succinate (Toprol Xl (Beta Rakesh)) 50 mg PO DAILY [facility] Last Admin: 12/12/19 15:19 Dose: Not Given Documented by: Morphine Sulfate () 2 mg IV Q3H PRN PRN PRN Reason: Pain Score 6-10/10 Last Admin: 12/13/19 01:31 Dose: 2 mg Documented by: Nitroglycerin (Nitrostat) 0.4 mg SUBLINGUAL Q5M PRN PRN Reason: CARDIAC/CHEST PAIN Oxycodone HCl (Oxyir) 5 mg PO Q4H PRN PRN PRN Reason: Pain Score 4-5/10 Last Admin: 12/10/19 14:30 Dose: 5 mg Documented by: Potassium Chloride (K-Dur) 80 meq PO BIDCM [facility] Last Admin: 12/12/19 22:17 Dose: 80 meq Documented by: Prochlorperazine Edisylate (Compazine Iv) 5 mg IV Q4H PRN PRN PRN Reason: Breakthrough Nausea/Vomiting Last Admin: 12/11/19 16:01 Dose: 5 mg Documented by: Senna/Docusate Sodium (Senokot-S, Shey-Colace) 2 tablet PO BID PRN PRN PRN Reason: Constipation Sodium Chloride () 10 - 40 ml IV UD PRN PRN Reason: SALINE FLUSH Last Admin: 12/13/19 05:15 Dose: 10 ml Documented by: Tamsulosin HCl (Flomax) 0.4 mg PO DAILY [facility] Last Admin: 12/12/19 15:25 Dose: 0.4 mg Documented by: Medical Necessity - Tobacco Use Smoking Status: Former smoker Tobacco Use: Cigarettes Assessment/Plan All Active Problems (Last Updated 10/30/19 @ 07:[address] Ade Finn MD) Acute on chronic congestive heart failure (Acute) Supratherapeutic INR (Acute) This is a 59 years old male patient presented to the emergency room because of worsening shortness of breath and weight gain and he was found to have acute on chronic diastolic CHF complicated by acute on chronic hypoxic respiratory failure. #1 acute on chronic diastolic CHF/right ventricular rotation/severe pulmonary hypertension: Remained on IV Lasix every 8 hours, remains on metoprolol. Started on hemodialysis this morning. Remained on oxygen at 3 to 4 L, stable. He had 2D echocardiogram on November 21, 2019 that revealed ejection fraction of 55%, moderately dilated right ventricle, RVSP of 71 consistent with severe pulmonary hypertension. Plan to continue hemodialysis, patient will need placement to [facility] facility. #2 acute on chronic hypoxic respiratory failure: Secondary to #1. Patient reported some improvement of his shortness of breath, remained on oxygen at 3 to 4 L. Plan as above. #3 Acute kidney injury on top of stage III chronic kidney disease: Serum creatinine has been around 2 to 2.6 mg/dL in the last 6 months. Right tunneled dialysis catheter placed yesterday. Currently, on hemodialysis. Today's creatinine is 2.26, BUN is 50. Plan to set up dialysis as per nephrology, placement to [facility] facility. #4 hypokalemia: Secondary to IV Lasix. He is on K. Dur 80 mEq p.o. twice daily. Today's potassium is 3.6. #5 supratherapeutic INR: Patient received vitamin K. Yesterday's INR is 1.9. He does have some pink urine after placement of Barcenas catheter, likely due to uretheral irritation and urine is clearing up. Plan to keep holding Coumadin, repeat INR tomorrow morning. #6 paroxysmal atrial fibrillation: Heart rate has been in the 60s, stable. Continue amiodarone and metoprolol for rate control, keep holding Coumadin as above. #7 hypertension: Blood pressure stable, continue metoprolol. #8 history of PDA/valvular heart disease: Status post repair, stable. #9 obstructive sleep apnea: Continue CPAP at night. #10 type 2 diabetes mellitus: Blood sugar improved continue Humalog 3 times daily, Lantus twice daily and insulin sliding scale. #11 hyperlipidemia: Continue statins. #12 DVT prophylaxis: INR is 1.9. This note was generated with [employer] dictation software. It may contain incorrect words, spelling, and punctuation that were not noted in checking the note before signing. Inpatient E&M: 28907 Subs Hosp L2
[2019-12-13 08:01] LABS: Differential Indicated SCAN CRITERIA MET
[2019-12-13 08:17] LABS: Anion Gap 4 (5-15); BUN 50 mg/dL (7-18); BUN/Creat Ratio 22.1 RATIO (10-20); Calcium,Total 8.2 mg/dL (8.5-10.1); Chloride 94 mmol/L (98-107); Creatinine, Serum 2.26 mg/dL (0.70-1.30); EST Glomerular Filtration Rate 31 mL/min (>60); Est Glom Filt Rate - Afr Amer 38 mL/min (>60); Estimated Creatinine Clearance 33.21 ml/min; Glucose 154 mg/dL (74-106); Potassium 3.6 mmol/L (3.5-5.1); Sodium Level 135 mmol/L (136-145)
[2019-12-13] MEDS: Amiodarone 200 MG Tablet PO ×2 (08:51→20:55)
[2019-12-13] MEDS: Tamsulosin HCl 0.4 MG Capsule PO (08:51)
[2019-12-13] MEDS: Insulin Lispro 100 UNIT/ML INSULN.PEN SC ×3 (08:57→12:35)
[2019-12-13] MEDS: Insulin Lispro 100 UNIT/ML INSULN.PEN 7 UNIT SC (08:57)
[2019-12-13 09:02] LABS: Hepatitis B Surface Antibody Reactive; Hepatitis B Surface Antigen Non-Reactive (Nonreactive)
[2019-12-13 09:05] LABS: Bedside Glucose 167 mg/dL (70-110)
--- NOTE | 2019-12-13 11:15 | CASEMGMT ---
Addendum entered by Lani Carballo 12/13/19 13:42: Prior to discharge from [facility] on 11/30, pt's weight on 11/29 was 339lbs and when pt returned on 12/07, pt's weight was 362lbs. Angel MEJIA CM Addendum entered by Lani Carballo 12/13/19 11:33: Darren ESCOBAR updated on all, voices understanding and into room with SNF list at this time. Angel MEJIA CM Original Note: Call to Maria Esther at [facility] to see how pt has been doing at home. Per Maria Esther and the [facility] notes, pt had gained 15 lbs in 6 days, he had fallen with a loss of consciousness and obtained the bruise to buttocks. She states that it was charted twice that they advised pt to go to ED. She states that it was charted that pt ate a 'whopper' for lunch one day. She states that they did make a referral to [facility] on 12/05/2019 but is unsure if pt had spoke with them yet. This RN CM to room to update pt on OP dialysis set up at this time and schedule letter provided to pt, pt voices understanding. This RN JENNYFER asked pt what his discharge plan is at this time and provided pt with therapy recommendations. Pt states he has been to [facility] in the past but according to Darren ESCOBAR, they will charge pt for transport to dialysis and pt aware. Pt states 'Well, I will just have my family take me' but according to Darren ESCOBAR, [facility] does not allow this and pt is aware at this time. This RN JENNYFER advised pt that we would provide him with a list of in-network facilities at this time, pt voices understanding. Pt states that his will be in later. Angel MEJIA CM
[2019-12-13] MEDS: Heparin 10,000 UNITS/10 ML Vial IV (12:34)
[2019-12-13] MEDS: Metoprolol(XL)Succ 50 MG Tablet PO (12:37)
--- NOTE | 2019-12-13 12:56 | DIALYSIS ---
HD x 2 hours complete. Tolerated tx very well. UF of 1500ml. Ran on 4k bath. Used right chest wall dialysis catheter. Catheter is positional. Lines reversed during tx. New Dressing was placed. Catheter closed with heparin per fill volume. Caps placed. Report was given to ROBERTO Salgado.
[2019-12-13 14:25] LABS: Bedside Glucose 175 mg/dL (70-110)
[2019-12-13] MEDS: oxyCODONE 5 MG Tablet PO ×2 (14:43→20:54)
--- NOTE | 2019-12-13 15:42 | CASEMGMT ---
SW spoke with patient and his . Their first choice is [facility]. They are aware they will have to pay for transportation to and from dialysis. SW asked them to please pick a second and third choice and darby it on the list. SW faxed referral to [facility] as well as called [facility]. Await response from [facility]. Ellie CISNEROS MSW
--- NOTE | 2019-12-13 16:11 | PN.RENAL_ITS ---
Subjective: no new events HD earlier today - Physical Exam Vitals/I&O's: Vital Signs Temp Pulse Resp BP Pulse Ox 97.9 F 65 16 126/63 H 95 12/13/19 14:06 12/13/19 14:06 12/13/19 14:06 12/13/19 14:06 12/13/19 14:06 Oxygen Flow Rate (L/min) 3 Oxygen Delivery Method Nasal Cannula Weight: 158 kg Body Mass Index (BMI) 53.1 Finger Stick Blood Glucose 95 Intake and Output for Last 24 Hours 12/11/19 12/12/19 12/13/19 23:59 23:59 23:59 Intake Total 1293.27 / 1293.27 1576 / 1576 875 / 875 Output Total 3300 / 3750 2750 / 2750 900 / 900 Balance -2006.73 / -2456.73 -1174 / -1174 - / -25 General: Alert, Oriented x3, Cooperative HEENT: Atraumatic, PERRLA, EOMI, Normocephalic Neck: Supple, No JVD, Negative Carotid Bruits Lungs: Clear to auscultation, Normal air movement Cardiovascular: Regular rate, No murmurs Abdomen: Bowel Sounds Present, Soft, Non Tender Extremities: Capillary Refill Less than 3 Seconds, Edema Skin: No rashes, No breakdown Musculoskeletal: No Tenderness to Palpation of Joints or Extremities Neurological: Cranial nerves II-XII grossly intact Psych/Mental Status: Normal Affect, Appropriate Microbiology Past 72 Hours 12/08/19 20:44 Blood Culture (Wb) #2 - No Site/Description Given Blood Culture - Preliminary No growth in 48 hours. 12/08/19 20:20 Blood Culture (Wb) - Right Forearm Blood Culture - Preliminary No growth in 48 hours. Laboratory Results 12/12/19 16:51: POC Glucose 102 12/12/19 20:10: Hep B Core Total Ab Pending 12/12/19 20:10: Hep Bs Antigen Non-Reactive, Hep Bs Antibody Reactive 12/12/19 22:12: POC Glucose 148 H 12/13/19 07:50: WBC 7.8, RBC 3.88 L, Hgb 10.2 L, Hct 34.1 L, MCV 87.9, MCH 26.3 L, MCHC 29.9 L, RDW Std Deviation 59.7 H, RDW Coeff of Janiya 18.9 H, Plt Count 236, MPV 8.9, Immature Gran % (Auto) 0.400, Neut % (Auto) 73.8 H, Lymph % (Auto) 8.3 L, [place] % (Auto) 15.4 H, Eos % (Auto) 1.7, Baso % (Auto) 0.4, Absolute Neuts (auto) 5.7, Absolute Lymphs (auto) 0.64 L, Nucleated RBC % 0.4 12/13/19 07:50: Sodium 135 L, Potassium 3.6, Chloride 94 L, Carbon Dioxide 37.0 H, Anion Gap 4 L, BUN 50 H, Creatinine 2.26 H, Estim Creat Clear Calc 33.21, Est GFR (MDRD) Af Amer 38 L, Est GFR (MDRD) Non-Af 31 L, BUN/Creatinine Ratio 22.1 H , Glucose 154 H, Calcium 8.2 L 12/13/19 08:56: POC Glucose 167 H 12/13/19 12:32: POC Glucose 175 H Current Medications Acetaminophen (Tylenol) 650 mg PO Q6H PRN PRN PRN Reason: Pain Score 1-10/Temp > 100.7 F Last Admin: 12/13/19 03:33 Dose: 650 mg Documented by: Al Hydroxide/Mg Hydroxide (Mylanta Ii) 30 ml PO Q6H PRN PRN PRN Reason: Gastric Burning Amiodarone HCl (Cordarone) 200 mg PO BID [facility] Last Admin: 12/13/19 08:51 Dose: 200 mg Documented by: Atorvastatin Calcium (Lipitor) 20 mg PO QHS [facility] Last Admin: 12/12/19 22:19 Dose: 20 mg Documented by: Dextrose (D50w Syringe) 0 gm IV X1 PRN; Protocol PRN Reason: Hypoglycemia Last Admin: 12/12/19 13:22 Dose: 12.5 gm Documented by: Furosemide (Lasix) 60 mg IV Q8 [facility] Last Admin: 12/13/19 14:09 Dose: 60 mg Documented by: Glucagon () 1 mg IM .X1 PRN PRN Reason: Hypoglycemia Insulin Glargine (Lantus (Bkc)) 25 units SC 1100,2200 [facility] Last Admin: 12/13/19 12:36 Dose: 25 units Documented by: Insulin Human Lispro (Humalog Kwikpen (Bkc)) 0 unit SC ACHS [facility]; Protocol Last Admin: 12/13/19 12:34 Dose: 3 units Documented by: Insulin Human Lispro (Humalog Kwikpen (Bkc)) 7 unit SC BREAKFAST [facility] Last Admin: 12/13/19 08:57 Dose: 7 units Documented by: Insulin Human Lispro (Humalog Kwikpen (Bkc)) 6 unit SC DINNER [facility] Last Admin: 12/12/19 17:06 Dose: Not Given Documented by: Insulin Human Lispro (Humalog Kwikpen (Bkc)) 5 unit SC LUNCH [facility] Last Admin: 12/13/19 12:35 Dose: 5 units Documented by: Melatonin (Melatonin) 3 mg PO QHS PRN PRN PRN Reason: SLEEP Last Admin: 12/12/19 23:51 Dose: 3 mg Documented by: Metoprolol Succinate (Toprol Xl (Beta Rakesh)) 50 mg PO DAILY [facility] Last Admin: 12/13/19 12:37 Dose: 50 mg Documented by: Morphine Sulfate () 2 mg IV Q3H PRN PRN PRN Reason: Pain Score 6-10/10 Last Admin: 12/13/19 01:31 Dose: 2 mg Documented by: Nitroglycerin (Nitrostat) 0.4 mg SUBLINGUAL Q5M PRN PRN Reason: CARDIAC/CHEST PAIN Oxycodone HCl (Oxyir) 5 mg PO Q4H PRN PRN PRN Reason: Pain Score 4-5/10 Last Admin: 12/13/19 14:43 Dose: 5 mg Documented by: Potassium [facility] ([facility]) [facility] Last Admin: 12/13/19 08:51 Dose: 80 meq Documented by: Prochlorperazine Edisylate (Compazine Iv) 5 mg IV Q4H PRN PRN PRN Reason: Breakthrough Nausea/Vomiting Last Admin: 12/11/19 16:01 Dose: 5 mg Documented by: Senna/Docusate Sodium (Senokot-S, Shey-Colace) 2 tablet PO BID PRN PRN PRN Reason: Constipation Sodium Chloride () 10 - 40 ml IV UD PRN PRN Reason: SALINE FLUSH Last Admin: 12/13/19 05:15 Dose: 10 ml Documented by: Tamsulosin HCl (Flomax) 0.4 mg PO DAILY [facility] Last Admin: 12/13/19 08:51 Dose: 0.4 mg Documented by: Medical Necessity - Tobacco Use Smoking Status: Former smoker Tobacco Use: Cigarettes Assessment/Plan All Active Problems (Last Updated 10/30/19 @ 07:[address] Ade Finn MD) Acute on chronic congestive heart failure (Acute) Supratherapeutic INR (Acute) MOUNA CKD 3 CHF HD started this am able to remove fluid not able to give heparin due to hematuria will plan for UF tomorrow
[2019-12-13] MEDS: Insulin Lispro 100 UNIT/ML INSULN.PEN 6 UNIT SC (17:09)
[2019-12-13 17:15] LABS: Bedside Glucose 130 mg/dL (70-110)
[2019-12-13] MEDS: Atorvastatin Calcium 20 MG Tablet PO (20:56)
[2019-12-13 21:25] LABS: Bedside Glucose 149 mg/dL (70-110)
[2019-12-14] VITALS (18 sets, daily range): BP systolic 79–144; BP diastolic 31–83; PULSE 53–71; RESP 16–20; TEMP 35.8–37; O2SAT 91–100
--- NOTE | 2019-12-14 00:11 | CPS ---
Patient placed on Sleep Lab PAP machine. Settings AutoPAP min 10 max 20 with 4L O2 bled in. Patient home PAP machine is not working and unable to remember his home settings. For this reason, decision was made to place on AutoPAP. Mask placed on with comfort. Patient understands to let RN know if he has any problems with machine or mask so PHARMACEUTICAL WORKER can be called.
[2019-12-14 06:23] LABS: Hepatitis B Core Ab Total Positive (Negative)
[2019-12-14 06:35] LABS: Absolute Lymphocyte Count 0.82 X10^3/uL (0.83-4.51); Absolute Neutrophil Count 5.9 X10^3/uL (2.0-7.7); Basophil# 0.03 X10^3/uL; Basophil% 0.4 % (0-1); Eosinophil# 0.28 X10^3/uL; Eosinophils% 3.3 % (0-5); Hematocrit 35.4 % (40-54); Hemoglobin 10.3 g/dL (13.0-16.5); Lymphocyte # 0.82 X10^3/ul (4.0); Lymphocyte % 9.7 % (19-41); Mean Corp Hgb Conc 29.1 g/dL (32-36); Mean Corpuscular Hgb 25.7 pg (27.0-32.0); Mean Corpuscular Volume 88.3 fL (80-94); Mean Platelet Vol. 8.8 fl (6.2-12.0); Monocyte% 16.5 % (0-10); NRBC Flagged by Analyzer 0.6 % (0-5); Neutrophil # 5.87 X10^3/uL (2.7-7.7); Neutrophil % 69.3 % (47-70); POSITIVE MORPHOLOGY YES; Platelet Count 235 K/mm3 (150-450); RBC Distribution Width CV 19.1 % (11.6-14.6); RBC Distribution Width SD 61.7 fl (35.1-43.9); Red Blood Count 4.01 M/mm3 (4.6-6.2); White Blood Count 8.5 K/mm3 (4.4-11.0)
[2019-12-14] MEDS: Furosemide 100 MG/10 ML Vial 60 MG IV (06:38)
[2019-12-14] MEDS: 0.9% Saline Lock 10 ML Syringe IV (06:38)
[2019-12-14 06:45] LABS: Differential Indicated SCAN CRITERIA MET
[2019-12-14 06:54] LABS: International Normalized Ratio 1.5; Prothrombin Time (Protime)PT. 17.5 SECONDS (11.7-14.9)
[2019-12-14 06:58] LABS: Anion Gap 1 (5-15); BUN 41 mg/dL (7-18); BUN/Creat Ratio 20.5 RATIO (10-20); Calcium,Total 8.1 mg/dL (8.5-10.1); Chloride 98 mmol/L (98-107); EST Glomerular Filtration Rate 36 mL/min (>60); Est Glom Filt Rate - Afr Amer 44 mL/min (>60); Estimated Creatinine Clearance 37.53 ml/min; Glucose 113 mg/dL (74-106); Potassium 4.9 mmol/L (3.5-5.1); Sodium Level 136 mmol/L (136-145)
[2019-12-14 07:06] LABS: Differential Comment SCANNED
--- NOTE | 2019-12-14 07:53 | PCM.PROGNOTE ---
Subjective: Chief complaint: Follow-up after admission for acute on chronic CHF, acute on chronic hypoxic respiratory failure and acute kidney injury on top of stage III chronic kidney disease. Patient seen and examined. No acute events overnight. Today, he is feeling better, shortness of breath has been stable and he remained on 3 L of oxygen. Urine is clearing up in the urine bed. No other complaints. Vital signs are stable, pulse ox remained stable at 3 L of oxygen which is his baseline at home. - Physical Exam Vitals/I&O's: Vital Signs Temp Pulse Resp BP Pulse Ox 98.6 F 53 L 18 112/65 93 12/14/19 06:36 12/14/19 07:00 12/14/19 06:36 12/14/19 06:36 12/14/19 07:31 Oxygen Flow Rate (L/min) 3 Oxygen Delivery Method Nasal Cannula Weight: 345 lb 0.375 oz Body Mass Index (BMI) 53.1 Finger Stick Blood Glucose 95 Intake and Output for Last 24 Hours 12/12/19 12/13/19 12/14/19 23:59 23:59 23:59 Intake Total 1576 / 1576 1675 / 1675 200 / 200 Output Total 2750 / 2750 1575 / 1575 350 / 350 Balance -1174 / -1174 100 / 100 -150 / -150 General: Alert, Oriented x3, Cooperative, No apparent distress HEENT: Atraumatic, PERRLA, EOMI, Normocephalic Oral: Moist Mucosa, No Gingival or Mucosal Lesions/ Ulcerations Neck: Supple, No JVD, Negative Carotid Bruits, Trachea Midline, Thyroid Normal Size and Texture Lungs: Clear to auscultation, Normal air movement, No rhonchi, No wheeze, No rales, Diminished Cardiovascular: Regular rate, Regular Rhythm, Normal S1, Normal S2, PMI Normal Abdomen: Bowel Sounds Present, Soft, Non Tender, Non-Distended, No Hepato-splenomegaly, Obese Extremities: No clubbing, No cyanosis, Edema Skin: No rashes, Ulcer/ Wound Lymphatic: No Cervical, Supraclavicular, or Inguinal Adenopathy Neurological: Cranial nerves II-XII grossly intact, Neuro grossly intact Psych/Mental Status: Normal Affect, Appropriate, Alert and oriented to time, place, person, mood and affect Microbiology Past 72 Hours 12/08/19 20:44 Blood Culture (Wb) #2 - No Site/Description Given Blood Culture - Final No growth in 5 days. 12/08/19 20:20 Blood Culture (Wb) - Right Forearm Blood Culture - Final No growth in 5 days. Laboratory Results 12/12/19 20:10: Hep B Core Total Ab Positive H 12/12/19 20:10: Hep Bs Antigen Non-Reactive, Hep Bs Antibody Reactive 12/13/19 07:50: WBC 7.8, RBC 3.88 L, Hgb 10.2 L, Hct 34.1 L, MCV 87.9, MCH 26.3 L, MCHC 29.9 L, RDW Std Deviation 59.7 H, RDW Coeff of Janiya 18.9 H, Plt Count 236, MPV 8.9, Immature Gran % (Auto) 0.400, Neut % (Auto) 73.8 H, Lymph % (Auto) 8.3 L, [place] % (Auto) 15.4 H, Eos % (Auto) 1.7, Baso % (Auto) 0.4, Absolute Neuts (auto) 5.7, Absolute Lymphs (auto) 0.64 L, Nucleated RBC % 0.4 12/13/19 07:50: Sodium 135 L, Potassium 3.6, Chloride 94 L, Carbon Dioxide 37.0 H, Anion Gap 4 L, BUN 50 H, Creatinine 2.26 H, Estim Creat Clear Calc 33.21, Est GFR (MDRD) Af Amer 38 L, Est GFR (MDRD) Non-Af 31 L, BUN/Creatinine Ratio 22.1 H, Glucose 154 H, Calcium 8.2 L 12/13/19 08:56: POC Glucose 167 H 12/13/19 12:32: POC Glucose 175 H 12/13/19 17:06: POC Glucose 130 H 12/13/19 20:49: POC Glucose 149 H 12/14/19 06:17: WBC 8.5, RBC 4.01 L, Hgb 10.3 L, Hct 35.4 L, MCV 88.3, MCH 25.7 L, MCHC 29.1 L, RDW Std Deviation 61.7 H, RDW Coeff of Janiya 19.1 H, Plt Count 235, MPV 8.8, Immature Gran % (Auto) 0.800, Neut % (Auto) 69.3, Lymph % (Auto) 9.7 L, Lynn % (Auto) 16.5 H, Eos % (Auto) 3.3, Baso % (Auto) 0.4, Absolute Neuts (auto) 5.9, Absolute Lymphs (auto) 0.82 L, Nucleated RBC % 0.6, Differential Comment SCANNED 12/14/19 06:17: PT 17.5 H, INR 1.5 12/14/19 06:17: Sodium 136, Potassium 4.9, Chloride 98, Carbon Dioxide 37.0 H, Anion Gap 1 L, BUN 41 H, Creatinine 2.00 H, Estim Creat Clear Calc 37.53, Est GFR (MDRD) Af Amer 44 L, Est GFR (MDRD) Non-Af 36 L, BUN/Creatinine Ratio 20.5 H, Glucose 113 H, Calcium 8.1 L Current Medications Acetaminophen (Tylenol) 650 mg PO Q6H PRN PRN PRN Reason: Pain Score 1-10/Temp > 100.7 F Last Admin: 12/13/19 03:33 Dose: 650 mg Documented by: Al Hydroxide/Mg Hydroxide (Mylanta Ii) 30 ml PO Q6H PRN PRN PRN Reason: Gastric Burning Amiodarone HCl (Cordarone) 200 mg PO BID [facility] Last Admin: 12/13/19 20:55 Dose: 200 mg Documented by: Atorvastatin Calcium (Lipitor) 20 mg PO QHS [facility] Last Admin: 12/13/19 20:56 Dose: 20 mg Documented by: Dextrose (D50w Syringe) 0 gm IV X1 PRN; Protocol PRN Reason: Hypoglycemia Last Admin: 12/12/19 13:22 Dose: 12.5 gm Documented by: Furosemide (Lasix) 60 mg IV Q8 [facility] Last Admin: 12/14/19 06:38 Dose: 60 mg Documented by: Glucagon () 1 mg IM .X1 PRN PRN Reason: Hypoglycemia Insulin Glargine (Lantus (Bkc)) 25 units SC 1100,2200 [facility] Last Admin: 12/13/19 20:55 Dose: 25 units Documented by: Insulin Human Lispro (Humalog Kwikpen (Bk)) 0 unit SC ACHS [facility]; Protocol Last Admin: 12/13/19 20:54 Dose: Not Given Documented by: Insulin Human Lispro (Humalog Kwikpen (Bk)) 7 unit SC BREAKFAST [facility] Last Admin: 12/13/19 08:57 Dose: 7 units Documented by: Insulin Human Lispro (Humalog Kwikpen (Bkc)) 6 unit SC DINNER [facility] Last Admin: 12/13/19 17:09 Dose: 6 units Documented by: Insulin Human Lispro (Humalog Kwikpen (Bkc)) 5 unit SC LUNCH [facility] Last Admin: 12/13/19 12:35 Dose: 5 units Documented by: Melatonin (Melatonin) 3 mg PO QHS PRN PRN PRN Reason: SLEEP Last Admin: 12/12/19 23:51 Dose: 3 mg Documented by: Metoprolol Succinate (Toprol Xl (Beta Rakesh)) 50 mg PO DAILY [facility] Last Admin: 12/13/19 12:37 Dose: 50 mg Documented by: Morphine Sulfate () 2 mg IV Q3H PRN PRN PRN Reason: Pain Score 6-10/10 Last Admin: 12/13/19 01:31 Dose: 2 mg Documented by: Nitroglycerin (Nitrostat) 0.4 mg SUBLINGUAL Q5M PRN PRN Reason: CARDIAC/CHEST PAIN Oxycodone HCl (Oxyir) 5 mg PO Q4H PRN PRN PRN Reason: Pain Score 4-5/10 Last Admin: 12/13/19 20:54 Dose: 5 mg Documented by: Prochlorperazine Edisylate (Compazine Iv) 5 mg IV Q4H PRN PRN PRN Reason: Breakthrough Nausea/Vomiting Last Admin: 12/11/19 16:01 Dose: 5 mg Documented by: Senna/Docusate Sodium (Senokot-S, Shey-Colace) 2 tablet PO BID PRN PRN PRN Reason: Constipation Sodium Chloride () 10 - 40 ml IV UD PRN PRN Reason: SALINE FLUSH Last Admin: 12/14/19 06:38 Dose: 10 ml Documented by: Tamsulosin HCl (Flomax) 0.4 mg PO DAILY [facility] Last Admin: 12/13/19 08:51 Dose: 0.4 mg Documented by: Medical Necessity - Tobacco Use Smoking Status: Former smoker Tobacco Use: Cigarettes Assessment/Plan All Active Problems (Last Updated 10/30/19 @ 07:[address] Ade Finn MD) Acute on chronic congestive heart failure (Acute) Supratherapeutic INR (Acute) This is a 59 years old male patient presented to the emergency room because of worsening shortness of breath and weight gain and he was found to have acute on chronic diastolic CHF complicated by acute on chronic hypoxic respiratory failure. #1 acute on chronic diastolic CHF/right ventricular rotation/severe pulmonary hypertension: He is on IV Lasix, metoprolol, received hemodialysis yesterday. Symptoms has been improving, remains on oxygen at 3 L. His weight is down by 15 pounds. He had 2D echocardiogram on November 21, 2019 that revealed ejection fraction of 55%, moderately dilated right ventricle, RVSP of 71 consistent with severe pulmonary hypertension. Plan for hemodialysis/ultrafiltration today, placement to [facility] facility. #2 acute on chronic hypoxic respiratory failure: Secondary to #1. Shortness of breath has been improving slowly, he remained stable on 3 L of oxygen which is his baseline at home. Plan as above. #3 Acute kidney injury on top of stage III chronic kidney disease: Status post hemodialysis yesterday, kidney function remained stable. Serum creatinine has been around 2 to 2.6 mg/dL in the last 6 months. Today's creatinine is 2.0, BUN is 41. Nephrology on the case. Plan hemodialysis/ultrafiltration today. #4 hypokalemia: Secondary to IV Lasix. He is on K. Dur 80 mEq p.o. twice daily. Today's potassium is 4.9. Plan to decrease K. Dur down to 40 mEq p.o. twice daily. #5 supratherapeutic INR: Patient received vitamin K. Today's INR is 1.5. Hematuria is clearing up, urine is more yellow. Plan to remove Barcenas catheter, probably we can resume Coumadin tomorrow. #6 paroxysmal atrial fibrillation: Heart rate has been in the 60s, stable. Continue amiodarone and metoprolol for rate control, keep holding Coumadin as above. #7 hypertension: Blood pressure stable, continue metoprolol. #8 history of PDA/valvular heart disease: Status post repair, stable. #9 obstructive sleep apnea: Continue CPAP at night. #10 type 2 diabetes mellitus: Blood sugar improved, continue Humalog 3 times daily, Lantus twice daily and insulin sliding scale. #11 hyperlipidemia: Continue statins. #12 DVT prophylaxis: INR is 1.5. This note was generated with Dragon dictation software. It may contain incorrect words, spelling, and punctuation that were not noted in checking the note before signing. Inpatient E&M: 30361 Subs Hosp L2
[2019-12-14 08:40] LABS: Bedside Glucose 146 mg/dL (70-110)
--- NOTE | 2019-12-14 09:03 | CASEMGMT ---
SHAWN received a voice mail from Ragini at [facility] and they would not have a way to transport him to dialysis on Wednesday. She also asked if he would need transported by cot or wheelchair. SHAWN called Ragini back and let her know he could go by wheelchair. SHAWN also let her know the is calling [facility] to see if they have any chair times for M,W,F. Ellie CISNEROS MSW
--- NOTE | 2019-12-14 10:16 | CASEMGMT ---
Pt would like to go to [facility] at discharge and they are having difficulty setting up transport for dialysis on wednesday at this time. Call to Zander at [facility] to see if he has any MWF availability. Per Zander, he has a MWF at 0610 available at this time and pt will be placed in that chair time at this time. Darren ESCOBAR aware, voices understanding. Pt updated at this time on the time change, voices understanding. Angel MEJIA CM
--- NOTE | 2019-12-14 10:46 | CASEMGMT ---
SHAWN called [facility] and let Ragini know that [facility] could also do M,W, and F 6:10a. SW went to meet with their clinical team and they cannot accept patient as they would not be able to transport him to dialysis. SW went to patient's room and he was sleeping, but SW found the fdc list and his had marked 3 choices. The second choice was [facility] which is a mental health based [facility] SNF which would not be appropriate. She likely did not know this information. The 3rd choice was [facility]. SHAWN called [facility] with referral and let her know about the dialysis and times. Await response. Ellie CISNEROS ENERGY EFFICIENCY SPECIALIST
[2019-12-14] MEDS: oxyCODONE 5 MG Tablet PO (11:20)
--- NOTE | 2019-12-14 11:38 | DIALYSIS ---
Pt completed ultrafiltration treatment via right chest dialysis CVC with 4 liters fluid removed. CVC dressing is clean, dry, and intact. Pt tolerated treatment without difficulty.
[2019-12-14] MEDS: Heparin 10,000 UNITS/10 ML Vial IV (11:58)
[2019-12-14] MEDS: Tamsulosin HCl 0.4 MG Capsule PO (11:59)
[2019-12-14] MEDS: Amiodarone 200 MG Tablet PO (11:59)
[2019-12-14] MEDS: Insulin Lispro 100 UNIT/ML INSULN.PEN SC ×2 (12:04→21:55)
[2019-12-14 12:16] LABS: Bedside Glucose 102 mg/dL (70-110)
--- NOTE | 2019-12-14 12:36 | CASEMGMT ---
Addendum entered by Ellie Cartagena 12/14/19 12:53: SW did also notify patient and his that the dialysis time has changed to M,W, F at 6:10a. Ellie CAMARGO Original Note: SW received a call from [facility] and they can accept patient. SW notified patient and his . Awaiting today's therapy notes so we can proceed with obtaining insurance authorization for SNF. Plan: [facility] pending pre-cert. Ellie CAMARGO
--- NOTE | 2019-12-14 13:28 | PCM.PN.REN ---
Subjective: looks somewhat better today breathing is better still sleepy, but he does this at baseline. ? LASHAWN shelton out this am - Physical Exam Vitals/I&O's: Vital Signs Temp Pulse Resp BP Pulse Ox 97.5 F L 55 L 18 113/55 L 100 12/14/19 12:00 12/14/19 12:00 12/14/19 12:00 12/14/19 12:00 12/14/19 12:00 Oxygen Flow Rate (L/min) 3 Oxygen Delivery Method Nasal Cannula Weight: 156.5 kg Body Mass Index (BMI) 53.1 Finger Stick Blood Glucose 95 Intake and Output for Last 24 Hours 12/12/19 12/13/19 12/14/19 23:59 23:59 23:59 Intake Total 1576 / 1576 1675 / 1675 480 / 480 Output Total 2750 / 2750 1575 / 1575 4750 / 4750 Balance -1174 / -1174 100 / 100 -4270 / -4270 General: Alert, Oriented x3, Cooperative HEENT: Atraumatic, PERRLA, EOMI, Normocephalic Neck: Supple, No JVD, Negative Carotid Bruits Lungs: Clear to auscultation, Normal air movement Cardiovascular: Regular rate, No murmurs Abdomen: Bowel Sounds Present, Soft, Non Tender Extremities: No edema, Capillary Refill Less than 3 Seconds Skin: No rashes, No breakdown Musculoskeletal: No Tenderness to Palpation of Joints or Extremities Neurological: Cranial nerves II-XII grossly intact Psych/Mental Status: Normal Affect, Appropriate Microbiology Past 72 Hours 12/08/19 20:44 Blood Culture (Wb) #2 - No Site/Description Given Blood Culture - Final No growth in 5 days. 12/08/19 20:20 Blood Culture (Wb) - Right Forearm Blood Culture - Final No growth in 5 days. Laboratory Results 12/12/19 20:10: Hep B Core Total Ab Positive H 12/13/19 12:32: POC Glucose 175 H 12/13/19 17:06: POC Glucose 130 H 12/13/19 20:49: POC Glucose 149 H 12/14/19 06:17: WBC 8.5, RBC 4.01 L, Hgb 10.3 L, Hct 35.4 L, MCV 88.3, MCH 25.7 L, MCHC 29.1 L, RDW Std Deviation 61.7 H, RDW Coeff of Janiya 19.1 H, Plt Count 235, MPV 8.8, Immature Gran % (Auto) 0.800, Neut % (Auto) 69.3, Lymph % (Auto) 9.7 L, [place] % (Auto) 16.5 H, Eos % (Auto) 3.3, Baso % (Auto) 0.4, Absolute Neuts (auto) 5.9, Absolute Lymphs (auto) 0.82 L, Nucleated RBC % 0.6, Differential Comment SCANNED 12/14/19 06:17: PT 17.5 H, INR 1.5 12/14/19 06:17: Sodium 136, Potassium 4.9, Chloride 98, Carbon Dioxide 37.0 H, Anion Gap 1 L, BUN 41 H, Creatinine 2.00 H, Estim Creat Clear Calc 37.53, Est GFR (MDRD) Af Amer 44 L, Est GFR (MDRD) Non-Af 36 L, BUN/Creatinine Ratio 20.5 H, Glucose 113 H, Calcium 8.1 L 12/14/19 08:09: POC Glucose 146 H 12/14/19 11:54: POC Glucose 102 Current Medications Acetaminophen (Tylenol) 650 mg PO Q6H PRN PRN PRN Reason: Pain Score 1-10/Temp > 100.7 F Last Admin: 12/13/19 03:33 Dose: 650 mg Documented by: Al Hydroxide/Mg Hydroxide (Mylanta Ii) 30 ml PO Q6H PRN PRN PRN Reason: Gastric Burning Amiodarone HCl (Cordarone) 200 mg PO BID [facility] Last Admin: 12/14/19 11:59 Dose: 200 mg Documented by: Atorvastatin Calcium (Lipitor) 20 mg PO QHS [facility] Last Admin: 12/13/19 20:56 Dose: 20 mg Documented by: Dextrose (D50w Syringe) 0 gm IV X1 PRN; Protocol PRN Reason: Hypoglycemia Last Admin: 12/12/19 13:22 Dose: 12.5 gm Documented by: Furosemide (Lasix) 80 mg PO BID@1000,1800 [facility] Glucagon () 1 mg IM .X1 PRN PRN Reason: Hypoglycemia Insulin Glargine (Lantus (Bkc)) 25 units SC 1100,2200 [facility] Last Admin: 09/03/20 12:05 Dose: 25 units Documented by: Insulin Human Lispro (Humalog Kwikpen (Bkc)) 0 unit SC ACHS [facility]; Protocol Last Admin: 12/14/19 12:01 Dose: Not Given Documented by: Insulin Human Lispro (Humalog Kwikpen (Bkc)) 7 unit SC BREAKFAST [facility] Last Admin: 12/14/19 08:11 Dose: Not Given Documented by: Insulin Human Lispro (Humalog Kwikpen (Bkc)) 6 unit SC DINNER [facility] Last Admin: 12/13/19 17:09 Dose: 6 units Documented by: Insulin Human Lispro (Humalog Kwikpen (Bkc)) 5 unit SC LUNCH [facility] Last Admin: 12/14/19 12:04 Dose: 5 units Documented by: Melatonin (Melatonin) 3 mg PO QHS PRN PRN PRN Reason: SLEEP Last Admin: 12/12/19 23:51 Dose: 3 mg Documented by: Metoprolol Succinate (Toprol Xl (Beta Rakesh)) 50 mg PO DAILY [facility] Last Admin: 12/14/19 12:00 Dose: Not Given Documented by: Morphine Sulfate () 2 mg IV Q3H PRN PRN PRN Reason: Pain Score 6-10/10 Last Admin: 12/13/19 01:31 Dose: 2 mg Documented by: Nitroglycerin (Nitrostat) 0.4 mg SUBLINGUAL Q5M PRN PRN Reason: CARDIAC/CHEST PAIN Oxycodone HCl (Oxyir) 5 mg PO Q4H PRN PRN PRN Reason: Pain Score 4-5/10 Last Admin: 12/14/19 11:20 Dose: 5 mg Documented by: Potassium Chloride (K-Dur) 40 meq PO BIDCM [facility] Last Admin: 12/14/19 11:57 Dose: 40 meq Documented by: Prochlorperazine Edisylate (Compazine Iv) 5 mg IV Q4H PRN PRN PRN Reason: Breakthrough Nausea/Vomiting Last Admin: 12/11/19 16:01 Dose: 5 mg Documented by: Senna/Docusate Sodium (Senokot-S, Shey-Colace) 2 tablet PO BID PRN PRN PRN Reason: Constipation Sodium Chloride () 10 - 40 ml IV UD PRN PRN Reason: SALINE FLUSH Last Admin: 12/14/19 06:38 Dose: 10 ml Documented by: Tamsulosin HCl (Flomax) 0.4 mg PO DAILY [facility] Last Admin: 12/14/19 11:59 Dose: 0.4 mg Documented by: Medical Necessity - Tobacco Use Smoking Status: Former smoker Tobacco Use: Cigarettes Assessment/Plan All Active Problems (Last Updated 10/30/19 @ 07:[address] Ade Finn MD) Acute on chronic congestive heart failure (Acute) Supratherapeutic INR (Acute) MOUNA CKD 3 CHF clinically better. hypokalemia is resolved. KCL has been cut back shelton removed this am. monitor for voiding change lasix to 80 mg BID PO. was taking torsemide as outpatient RIJ TDC in place. has a confirmed dialysis spot from my end ok to dc whenever dialysis has been arranged dw at bedside
--- NOTE | 2019-12-14 15:40 | CASEMGMT ---
Run sheet and hep b panel faxed to [facility] and [facility] at this time. Angel MEJIA CM
[2019-12-14] MEDS: Insulin Lispro 100 UNIT/ML INSULN.PEN 6 UNIT SC (16:37)
[2019-12-14 16:40] LABS: Bedside Glucose 130 mg/dL (70-110)
[2019-12-14] MEDS: Furosemide 80 MG Tablet PO (17:48)
--- NOTE | 2019-12-14 21:42 | NURSING ---
Dr. Lawrence notified of low BP, 4000ml of fluid removed at dialysis today. Dr. Lawrence states that he will enter orders and to hold amiodarone tonight.
[2019-12-14] MEDS: Atorvastatin Calcium 20 MG Tablet PO (21:55)
[2019-12-14] MEDS: Midodrine HCl 5 MG Tablet 10 MG PO (22:09)
[2019-12-15] VITALS (9 sets, daily range): BP systolic 104–132; BP diastolic 63–72; PULSE 62–79; RESP 14–17; TEMP 36.7–36.9; O2SAT 93–96
[2019-12-15 01:56] LABS: Bedside Glucose 153 mg/dL (70-110)
[2019-12-15 08:46] LABS: Bedside Glucose 146 mg/dL (70-110)
--- NOTE | 2019-12-15 08:50 | CASEMGMT ---
Social Work Return call from Anna from [facility] and the have authorized the continuation of Precert. SW placed call to Anna at [facility] and notified her to proceed with precert for admission to [facility]. Anna stating she has started precert and will notify [facility] when they obtain precert. Plan: [facility], pending precert GIANCARLO Broussard
[2019-12-15] MEDS: Insulin Lispro 100 UNIT/ML INSULN.PEN 7 UNIT SC (10:05)
--- NOTE | 2019-12-15 10:26 | PCM.TXEXTCAR ---
- Diet 12/13/19 10:08 Diet: Cardiac: Calorie-Controlled Is pt able to select menu?: Yes How many daily calories?: 2200 calorie - Routine Orders/Code Status O2 Liters per Minute: 3 O2 Frequency: Continuous Keep PO Greater than or Equal to (%): 92 Code Status: Full Code - Wound(s) right vasquez Wound Type: blister RT CHEST Wound Type: Surgical Incision - Suggestions for Active Care Change Position every (hours): 3 Hours to sit in a chair: 2 Times a day to sit in chair: 3 - Therapies Weight Bearing: Weight bearing as tolerated Physical Therapy: Eval and Treat Occupational Therapy: Eval and Treat - Allergies/Procedures Done in Hospital Allergies/Adverse Reactions: Allergies albuterol Adverse Reaction (Verified 12/08/19 20:00) NEEDS FOLLOW-UP increased heart rate. amoxicillin trihydrate [From Augmentin] Adverse Reaction (Verified 12/08/19 20:00) Diarrhea indomethacin [From Indocin] Adverse Reaction (Verified 12/08/19 20:00) Nausea potassium clavulanate [From Augmentin] Adverse Reaction (Verified 12/08/19 20:00) Diarrhea - Type of Care/Length of Stay Estimated LOS: Convalescent Care Less Than 30 days Type of Care Needed: Skilled Rehab Potential: Good Prognosis: Good - Additional Orders/Day of Discharge Additional Orders: Hemodialysis on Mondays, Wednesdays and Fridays. H&P will serve as current which was dated: 12/08/19 Day of Discharge: 12/15/19 - Dietary and Speech Recommendations Dietitian Recommendations/Changes: Advance diet as tolerated to Cardiac, Consistent CHO, 2200 calorie controlled diet w/ 1500 ml fluid restriction as indicated. - Follow Up Care Primary Care Physician: Francisco Alcazar MD [Primary Care Provider] - Please follow up with your Primary Care Physician in: 1 week. Please Follow Up With: Geno Arevalo MD When: 2 weeks.
--- NOTE | 2019-12-15 10:30 | CASEMGMT ---
Call to [facility] to notify that pt will be discharged to [facility] at this time, voices understanding. Call to Zander at [facility] to notify that pt will be there for Wednesday treatment and to clarify that they are still running pt's on Wednesday as it is a holiday. Per Zander, they will be there wednesday and they will be ready for pt at that time. Angel MEJIA CM
--- NOTE | 2019-12-15 11:16 | CASEMGMT ---
Addendum entered by Valeria Perez 12/15/19 15:28: Transportation arranged with physician ambulance for a 7:30 pickup by wheelchair van. Pt and notified as well as Anna at [facility] and RN. GIANCARLO Broussard Original Note: Social Work Phone call placed to Petrona at [facility] Palliative Medicine. Palliative received a referral for pt prior to admission to [facility] but had not seen pt yet. Petrona informed that pt will be discharging to [facility] today and Petrona states they will follow up with pt once there. Discharge summary will be faxed to Palliative medicine when available. Phone call with Anna at [facility]. Precert has been obtained and pt is medically ready for d/c today. Anna notified that palliative medicine will be following up with pt at facility and that pt will be discharged today after Dialysis. 7000 form completed in YouTube system and faxed to [facility] along with Covid Screen and Orders. [facility] met with pt and informed of discharge today after dialysis and he is understanding and agreeable. Phone call to pt and updated on d/c plan. Pt plans to visit pt today prior to discharge to [facility]. Plan: D/C today to [facility] GIANCARLO Broussard
[2019-12-15 11:25] LABS: Bedside Glucose 175 mg/dL (70-110)
[2019-12-15] MEDS: Tamsulosin HCl 0.4 MG Capsule PO (11:31)
[2019-12-15] MEDS: Amiodarone 200 MG Tablet PO (11:31)
[2019-12-15] MEDS: Metoprolol(XL)Succ 50 MG Tablet PO (11:32)
[2019-12-15] MEDS: Furosemide 80 MG Tablet PO ×2 (11:32→19:02)
[2019-12-15] MEDS: Insulin Lispro 100 UNIT/ML INSULN.PEN SC ×2 (11:33→11:34)
--- NOTE | 2019-12-15 11:56 | PCM.DC.SUM ---
Discharge Date and Diagnosis Date of Admission: 12/08/19 Date of Discharge: 12/15/19 - Primary Discharge Diagnosis Acute Problems: #1 acute on chronic diastolic CHF/severe pulmonary hypertension. #2 acute on chronic hypoxic respiratory failure. #3 acute kidney injury on top of stage III chronic kidney disease. #4 hypokalemia. #5 supratherapeutic INR. #6 hematuria, resolved. - Secondary Discharge Diagnosis Chronic Problems: Chronic Problems (Last Updated 10/30/19 @ 07:[address] 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 Sherif Espinoza @ [facility]: normal coronaries, mildly elevated PA pressures Paroxysmal SVT (supraventricular tachycardia) (Chronic) Atrial fibrillation (Chronic) History of atrial flutter (Chronic) Attempted atrial flutter ablation @ [facility] X 1 in 1997 (unsuccessful), followed by Atrial flutter ablations X [address] Paul at [facility] in Apr and October of 1998 Chronic diastolic congestive heart failure (Chronic) History of patent ductus arteriosus as a child (Chronic) Repaired at age 3 years, done @ [facility] Nonrheumatic tricuspid valve regurgitation (Chronic) Leaflet used for VSD repair in past History of ventricular septal defect repair (Chronic) 1977 (pt approx age 18) using Dacron patch, done at [facility] Hyperlipidemia (Chronic) Hypertension (Chronic) Diabetes mellitus, type II (Chronic) History of radiofrequency ablation procedure for cardiac arrhythmia (Chronic) Attempted atrial flutter ablation @ [facility] X 1 (unsuccessful), followed by Atrial flutter ablations X [address] Paul at [facility] in Apr and October of 1998 Pulmonary hypertension, moderate to severe (Chronic) PASP 69 mmHg in September 2013 LASHAWN (obstructive sleep apnea) (Chronic) Hospital Course and Treatment Imaging Results: Clinical Impression(s) from Imaging Studies Chest X-Ray 12/08/19 20:18 IMPRESSION: Findings consistent with congestive failure and right pleural effusion with possible tiny left effusion Electronically Signed: Adonis Seals MD at 21:13 EDT , Service support , Chest X-Ray 12/12/19 14:00 IMPRESSION: The tip of the hemodialysis catheter is in the proximal portion of the superior vena cava. Electronically Signed: Fortunato Francisco, at 14:26 EDT , Service support , Dr. Arevalo, nephrology. Operations: None Procedures: Dialysis, - - Placement of right jugular tunneled hemodialysis catheter. Summary of Care Provided: Patient seen and examined on day of discharge and appeared to be stable to be discharged to [facility] facility. His breathing has been stable and he remained stable on 3 L of oxygen. His vital signs are stable. #1 acute on chronic diastolic CHF/right ventricular rotation/severe pulmonary hypertension: Initially, treated with IV Lasix drip as well as p.o. metoprolol. He had 2D echocardiogram on November 21, 2019 that revealed ejection fraction of 55%, moderately dilated right ventricle, RVSP of 71 consistent with severe pulmonary hypertension. Patient was on dialysis for 4 months beginning of this year. Nephrology consulted and recommended to resume dialysis again. Patient was started on hemodialysis as well as IV Lasix. Symptoms improved including shortness of breath as well as weakness and his kidney function improved as well. #2 acute on chronic hypoxic respiratory failure: Secondary to #1. With IV diuresis and dialysis, his weight decreased and his symptoms improved. He remained on 3 L of oxygen which is his baseline at home. #3 Acute kidney injury on top of stage III chronic kidney disease: Status post hemodialysis x2 during this admission. Serum creatinine has been around 2 to 2.6 mg/dL in the last 6 months. Discharge creatinine is 2.0, BUN is 41. Nephrology on the case. Plan for dialysis on Mondays, Wednesdays and Fridays. #4 hypokalemia: Secondary to IV Lasix. Potassium was replaced and corrected appropriately, patient was discharged on potassium supplement. #5 supratherapeutic INR: Patient was on Coumadin for history of paroxysmal atrial fibrillation. On admission, INR was 3.6. Patient had Barcenas catheter placed and he developed mild hematuria probably due to urethral irritation. Because he went for placement of tunneled dialysis catheter, he was given vitamin K to bring his INR down. Barcenas catheter removed the day before discharge and his urine cleared up. Coumadin restarted upon discharge. #6 paroxysmal atrial fibrillation: Rate was stable, continued on amiodarone and metoprolol for rate control, resumed on Coumadin upon discharge. #7 hypertension: Blood pressure stable, continued on metoprolol. Patient discharged to [facility] facility in a stable condition, plan for dialysis on Mondays, Wednesdays and Fridays, discharged on Lasix 80 mg p.o. twice daily, Bumex and acetazolamide discontinued, discharged on iron supplement, started back on Coumadin upon discharge, continued on his other previous home medications, discharged on oxygen at 3 L which is his baseline at home before, plan to follow-up with nephrology in 2 weeks, recommended follow-up with PCP in 1 week. This note was generated with [employer] dictation software. It may contain incorrect words, spelling, and punctuation that were not noted in checking the note before signing. - Physical Exam Vitals/I&O's: Vital Signs Temp Pulse Resp BP Pulse Ox 98.4 F 77 14 132/63 H 95 12/15/19 11:15 12/15/19 11:32 12/15/19 11:15 12/15/19 11:32 12/15/19 11:15 Oxygen Flow Rate (L/min) 3 Oxygen Delivery Method Nasal Cannula Weight: 343 lb 14.738 oz Body Mass Index (BMI) 53.1 Finger Stick Blood Glucose 95 Intake and Output for Last 24 Hours 12/13/19 12/14/19 12/15/19 23:59 23:59 23:59 Intake Total 1675 / 1675 1350 / 1750 880 / 880 Output Total 1575 / 1575 4875 / 5075 425 / 425 Balance 100 / 100 -3525 / -3325 455 / 455 General: Alert, Oriented x3, Cooperative, No apparent distress HEENT: Atraumatic, PERRLA, EOMI, Normocephalic Oral: Moist Mucosa, No Gingival or Mucosal Lesions/ Ulcerations Neck: Supple, No JVD, Negative Carotid Bruits, Trachea Midline, Thyroid Normal Size and Texture Lungs: Clear to auscultation, No rhonchi, No wheeze, No rales, Diminished Cardiovascular: Regular rate, Regular Rhythm, Normal S1, Normal S2, PMI Normal Abdomen: Bowel Sounds Present, Soft, Non Tender, Non-Distended, No Hepato-splenomegaly, Obese Extremities: No clubbing, No cyanosis, Edema Skin: No rashes, Ulcer/ Wound Lymphatic: No Cervical, Supraclavicular, or Inguinal Adenopathy Neurological: Cranial nerves II-XII grossly intact, Neuro grossly intact Psych/Mental Status: Normal Affect, Appropriate Microbiology Past 72 Hours 12/08/19 20:44 Blood Culture (Wb) #2 - No Site/Description Given Blood Culture - Final No growth in 5 days. 12/08/19 20:20 Blood Culture (Wb) - Right Forearm Blood Culture - Final No growth in 5 days. Laboratory Results 12/14/19 11:54: POC Glucose 102 12/14/19 16:29: POC Glucose 130 H 12/14/19 21:49: POC Glucose 153 H 12/15/19 08:21: POC Glucose 146 H 12/15/19 11:10: POC Glucose 175 H Current Medications Acetaminophen (Tylenol) 650 mg PO Q6H PRN PRN PRN Reason: Pain Score 1-10/Temp > 100.7 F Last Admin: 12/13/19 03:33 Dose: 650 mg Documented by: Al Hydroxide/Mg Hydroxide (Mylanta Ii) 30 ml PO Q6H PRN PRN PRN Reason: Gastric Burning Amiodarone HCl (Cordarone) 200 mg PO BID [facility] Last Admin: 12/15/19 11:31 Dose: 200 mg Documented by: Atorvastatin Calcium (Lipitor) 20 mg PO QHS [facility] Last Admin: 12/14/19 21:55 Dose: 20 mg Documented by: Dextrose (D50w Syringe) 0 gm IV X1 PRN; Protocol PRN Reason: Hypoglycemia Last Admin: 12/12/19 13:22 Dose: 12.5 gm Documented by: Furosemide (Lasix) 80 mg PO BID@1000,1800 [facility] Last Admin: 12/15/19 11:32 Dose: 80 mg Documented by: Glucagon () 1 mg IM .X1 PRN PRN Reason: Hypoglycemia Insulin Glargine (Lantus ([facility])) 25 units SC 1100,2200 [facility] Last Admin: 12/15/19 11:33 Dose: 25 units Documented by: Insulin Human Lispro (Humalog Kwikpen ([facility])) 0 unit SC ACHS [facility]; Protocol Last Admin: 12/15/19 11:33 Dose: 3 units Documented by: Insulin Human Lispro (Humalog Kwikpen ([facility])) 7 unit SC BREAKFAST [facility] Last Admin: 12/15/19 10:05 Dose: 7 units Documented by: Insulin Human Lispro (Humalog Kwikpen ([facility])) 6 unit SC DINNER [facility] Last Admin: 12/14/19 16:37 Dose: 6 units Documented by: Insulin Human Lispro (Humalog Kwikpen ([facility])) 5 unit SC LUNCH [facility] Last Admin: 12/15/19 11:34 Dose: 5 units Documented by: Melatonin (Melatonin) 3 mg PO QHS PRN PRN PRN Reason: SLEEP Last Admin: 12/12/19 23:51 Dose: 3 mg Documented by: Metoprolol Succinate (Toprol Xl (Beta Rakesh)) 50 mg PO DAILY [facility] Last Admin: 12/15/19 11:32 Dose: 50 mg Documented by: Morphine Sulfate () 2 mg IV Q3H PRN PRN PRN Reason: Pain Score 6-10/10 Last Admin: 12/13/19 01:31 Dose: 2 mg Documented by: Nitroglycerin (Nitrostat) 0.4 mg SUBLINGUAL Q5M PRN PRN Reason: CARDIAC/CHEST PAIN Oxycodone HCl (Oxyir) 5 mg PO Q4H PRN PRN PRN Reason: Pain Score 4-5/10 Last Admin: 12/14/19 11:20 Dose: 5 mg Documented by: Potassium Chloride (K-Dur) [facility] Last Admin: 12/15/19 08:33 Dose: 40 meq Documented by: Prochlorperazine Edisylate (Compazine Iv) 5 mg IV Q4H PRN PRN PRN Reason: Breakthrough Nausea/Vomiting Last Admin: 12/11/19 16:01 Dose: 5 mg Documented by: Senna/Docusate Sodium (Senokot-S, Shey-Colace) 2 tablet PO BID PRN PRN PRN Reason: Constipation Sodium Chloride () 10 - 40 ml IV UD PRN PRN Reason: SALINE FLUSH Last Admin: 12/14/19 06:38 Dose: 10 ml Documented by: Tamsulosin HCl (Flomax) 0.4 mg PO DAILY [facility] Last Admin: 12/15/19 11:31 Dose: 0.4 mg Documented by: Home Medications: Medications to take at Discharge Atorvastatin Calcium 20 mg PO QHS 04/16/19 Insulin Glargine [Lantus SoloStar Pen] 40 units SUBCUT BID pen 04/28/19 Insulin Lispro [Humalog KwikPen] 5 unit SUBCUT LUNCH insuln.pen 04/28/19 Insulin Lispro [Humalog KwikPen] 6 unit SUBCUT DINNER insuln.pen 04/28/19 Insulin Lispro [Humalog KwikPen] 7 unit SUBCUT BREAKFAST insuln.pen 04/28/19 Insulin Lispro [Humalog KwikPen] See Protocol SUBCUT ACHS insuln.pen 04/28/19 Metoprolol(XL)Succ [Toprol Xl (Beta Rakesh)] 50 mg PO DAILY tab 04/28/19 Amiodarone HCl 200 mg PO BID 08/08/19 Multivitamin [Daily Multiple Vitamin] 1 ea PO DAILY 10/28/19 Tamsulosin HCl [Flomax] 0.4 mg PO DAILY #90 cap 11/01/19 Acetaminophen [Tylenol] 625 mg PO Q6H PRN PRN 11/21/19 Docusate Sodium [Colace] 100 mg PO DAILY PRN PRN 11/21/19 Melatonin 3 mg PO QHS PRN 11/21/19 Multivitamin with Minerals [Multiple Vitamin] 1 ea PO DAILY 11/21/19 Warfarin [Coumadin] 3 mg PO DAILY 11/21/19 Furosemide [Lasix] 80 mg PO BID@1000,1800 #90 tab 12/15/19 Insulin Glargine [Lantus SoloStar Pen] 30 units SUBCUT 1100,2200 #2 pen 12/15/19 Potassium Chloride [K-Dur] 40 meq PO DAILYCM #30 tab 12/15/19 Following Prescriptions Were Given to Patient: Potassium Chloride [K-Dur] 40 meq PO DAILYCM #30 tab Prescription Printed Insulin Glargine [Lantus SoloStar Pen] 30 units SUBCUT 1100,2200 #2 pen Prescription Printed Furosemide [Lasix] 80 mg PO BID@1000,1800 #90 tab Prescription Printed Primary Care Physician: Francisco Alcazar MD [Primary Care Provider] - Please follow up with your Primary Care Physician in: 1 week. Please Follow Up With: Geno Arevalo MD When: 2 weeks. Disposition: Detention facility Minutes spent on discharge:: 33 Patient Condition:: Stable Medical Necessity - Tobacco Use Smoking Status: Former smoker Tobacco Use: Cigarettes Meaningful Use Info Meaningful Use Diagnoses (Choose all that apply): CHF - CHF ARUN/ARB ordered at discharge?: No Reason ARUN/ARB not ordered?: Worsening renal function Documented LVEF (%): 55 Inpatient E&M: 42338 Disch Hosp
--- NOTE | 2019-12-15 13:32 | PCM.PN.REN ---
Subjective: no new complaints - Physical Exam Vitals/I&O's: Vital Signs Temp Pulse Resp BP Pulse Ox 98.4 F 77 14 132/63 H 95 12/15/19 11:15 12/15/19 11:32 12/15/19 11:15 12/15/19 11:32 12/15/19 11:15 Oxygen Flow Rate (L/min) 2.5 Oxygen Delivery Method Nasal Cannula Weight: 156 kg Body Mass Index (BMI) 53.1 Finger Stick Blood Glucose 95 Intake and Output for Last 24 Hours 12/13/19 12/14/19 12/15/19 23:59 23:59 23:59 Intake Total 1675 / 1675 1350 / 1750 880 / 880 Output Total 1575 / 1575 4875 / 5075 425 / 425 Balance 100 / 100 -3525 / -3325 455 / 455 General: Alert, Oriented x3, Cooperative HEENT: Atraumatic, PERRLA, EOMI, Normocephalic Neck: Supple, No JVD, Negative Carotid Bruits Lungs: Clear to auscultation, Normal air movement Cardiovascular: Regular rate, No murmurs Abdomen: Bowel Sounds Present, Soft, Non Tender Extremities: No edema, Capillary Refill Less than 3 Seconds Skin: No rashes, No breakdown Musculoskeletal: No Tenderness to Palpation of Joints or Extremities Neurological: Cranial nerves II-XII grossly intact Psych/Mental Status: Normal Affect, Appropriate Microbiology Past 72 Hours 12/08/19 20:44 Blood Culture (Wb) #2 - No Site/Description Given Blood Culture - Final No growth in 5 days. 12/08/19 20:20 Blood Culture (Wb) - Right Forearm Blood Culture - Final No growth in 5 days. Laboratory Results 12/14/19 16:29: POC Glucose 130 H 12/14/19 21:49: POC Glucose 153 H 12/15/19 08:21: POC Glucose 146 H 12/15/19 11:10: POC Glucose 175 H Current Medications Acetaminophen (Tylenol) 650 mg PO Q6H PRN PRN PRN Reason: Pain Score 1-10/Temp > 100.7 F Last Admin: 12/13/19 03:33 Dose: 650 mg Documented by: Al Hydroxide/Mg Hydroxide (Mylanta Ii) 30 ml PO Q6H PRN PRN PRN Reason: Gastric Burning Amiodarone HCl (Cordarone) 200 mg PO BID [facility] Last Admin: 12/15/19 11:31 Dose: 200 mg Documented by: Atorvastatin Calcium (Lipitor) 20 mg PO QHS [facility] Last Admin: 12/14/19 21:55 Dose: 20 mg Documented by: Dextrose (D50w Syringe) 0 gm IV X1 PRN; Protocol PRN Reason: Hypoglycemia Last Admin: 12/12/19 13:22 Dose: 12.5 gm Documented by: Furosemide (Lasix) 80 mg PO BID@1000,1800 [facility] Last Admin: 12/15/19 11:32 Dose: 80 mg Documented by: Glucagon () 1 mg IM .X1 PRN PRN Reason: Hypoglycemia Insulin Glargine (Lantus ([facility])) 25 units SC 1100,2200 [facility] Last Admin: 12/15/19 11:33 Dose: 25 units Documented by: Insulin Human Lispro (Humalog Kwikpen ([facility])) 0 unit SC ACHS [facility]; Protocol Last Admin: 12/15/19 11:33 Dose: 3 units Documented by: Insulin Human Lispro (Humalog Kwikpen ([facility])) 7 unit SC BREAKFAST [facility] Last Admin: 12/15/19 10:05 Dose: 7 units Documented by: Insulin Human Lispro (Humalog Kwikpen ([facility])) 6 unit SC DINNER [facility] Last Admin: 12/14/19 16:37 Dose: 6 units Documented by: Insulin Human Lispro (Humalog Kwikpen ([facility])) 5 unit SC LUNCH [facility] Last Admin: 12/15/19 11:34 Dose: 5 units Documented by: Melatonin (Melatonin) 3 mg PO QHS PRN PRN PRN Reason: SLEEP Last Admin: 12/12/19 23:51 Dose: 3 mg Documented by: Metoprolol Succinate (Toprol Xl (Beta Rakesh)) 50 mg PO DAILY [facility] Last Admin: 12/15/19 11:32 Dose: 50 mg Documented by: Morphine Sulfate () 2 mg IV Q3H PRN PRN PRN Reason: Pain Score 6-10/10 Last Admin: 12/13/19 01:31 Dose: 2 mg Documented by: Nitroglycerin (Nitrostat) 0.4 mg SUBLINGUAL Q5M PRN PRN Reason: CARDIAC/CHEST PAIN Oxycodone HCl (Oxyir) 5 mg PO Q4H PRN PRN PRN Reason: Pain Score 4-5/10 Last Admin: 12/14/19 11:20 Dose: 5 mg Documented by: Potassium Chloride (K-Dur) 40 meq PO DAILYCM [facility] Last Admin: 12/15/19 08:33 Dose: 40 meq Documented by: Prochlorperazine Edisylate (Compazine Iv) 5 mg IV Q4H PRN PRN PRN Reason: Breakthrough Nausea/Vomiting Last Admin: 12/11/19 16:01 Dose: 5 mg Documented by: Senna/Docusate Sodium (Senokot-S, Shey-Colace) 2 tablet PO BID PRN PRN PRN Reason: Constipation Sodium Chloride () 10 - 40 ml IV UD PRN PRN Reason: SALINE FLUSH Last Admin: 12/14/19 06:38 Dose: 10 ml Documented by: Tamsulosin HCl (Flomax) 0.4 mg PO DAILY [facility] Last Admin: 12/15/19 11:31 Dose: 0.4 mg Documented by: Medical Necessity - Tobacco Use Smoking Status: Former smoker Tobacco Use: Cigarettes Assessment/Plan All Active Problems (Last Updated 10/30/19 @ 07:[address] Ade Finn MD) Acute on chronic congestive heart failure (Acute) Supratherapeutic INR (Acute) MOUNA CKD 3 CHF clinically better. hypokalemia is resolved. KCL has been cut back HD as per MWF schedule plan to keep him on dialysis for a while due to unstable course recently ok to dc today after HD
[2019-12-15 16:56] LABS: Bedside Glucose 94 mg/dL (70-110)
--- NOTE | 2019-12-15 17:17 | NURSING ---
Report called to [facility], spoke to Pranav MEJIA at 1707.
== END 2019-12-15 19:20 | disposition skilled nursing facility (03) | DRG 291 ==
LOC: ED 20:29 → PCU 22:10
PROVIDERS: Internal Medicine; Internal Medicine Nephrology; Surgery; Admitting Provider Internal Medicine; Emergency Provider Emergency Medicine; PCP Family Medicine; Visit Provider Hospitalist
PROC: 0JH63XZ Insertion of Tunneled Vascular Access Device into Chest Subcutaneous Tissue and Fascia, Percutaneous Approach (ICD-10-PCS; principal; 2019-12-12 12:45)
DX: I13.0 Hypertensive heart and chronic kidney disease with heart failure and stage 1 through stage 4 chronic kidney disease, or unspecified chronic kidney disease (principal); I50.33 Acute on chronic diastolic (congestive) heart failure; J96.21 Acute and chronic respiratory failure with hypoxia; J96.22 Acute and chronic respiratory failure with hypercapnia; I48.92 Unspecified atrial flutter; N17.9 Acute kidney failure, unspecified; N18.4 Chronic kidney disease, stage 4 (severe); Z68.43 Body mass index [BMI] 50.0-59.9, adult; Q25.0 Patent ductus arteriosus; I47.1 Supraventricular tachycardia; I48.20 Chronic atrial fibrillation, unspecified; E87.6 Hypokalemia; I50.82 Biventricular heart failure; E66.01 Morbid (severe) obesity due to excess calories; E87.5 Hyperkalemia; E11.22 Type 2 diabetes mellitus with diabetic chronic kidney disease; G47.33 Obstructive sleep apnea (adult) (pediatric); F17.210 Nicotine dependence, cigarettes, uncomplicated; I48.0 Paroxysmal atrial fibrillation; I44.0 Atrioventricular block, first degree; D64.9 Anemia, unspecified; T45.515A Adverse effect of anticoagulants, initial encounter; I36.1 Nonrheumatic tricuspid (valve) insufficiency; E78.5 Hyperlipidemia, unspecified; I27.20 Pulmonary hypertension, unspecified; Z99.2 Dependence on renal dialysis; Z87.74 Personal history of (corrected) congenital malformations of heart and circulatory system; Z83.3 Family history of diabetes mellitus; Z79.01 Long term (current) use of anticoagulants; Z82.49 Family history of ischemic heart disease and other diseases of the circulatory system; Z79.4 Long term (current) use of insulin; Z82.3 Family history of stroke; R79.1 Abnormal coagulation profile; R31.9 Hematuria, unspecified; Z66 Do not resuscitate
CPT/HCPCS: 36415; 71045; 71046; 76000; 80048; 80053; 80061; 82962; 83605; 83735; 83880; 84484; 85025; 85610; 86704; 86706; 87040; 87340; 87635; 90937; 93005; 94002; 94799; 97110; 97116; 97162; 97166; 97530; 97535; 97803; 99251; 99284; J7030; J7040; J7050; A4216; C1750; G0257; G0463; J1940; J3490; U0003

== ENCOUNTER → 2019-12-22 11:32 | Outpatient (CLI) | payer MEDICARE, SELFPAY ==
[2019-12-22 10:42] VITALS: BMI 50.9
[2019-12-22 13:03] LABS: International Normalized Ratio 1.6; Prothrombin Time (Protime)PT. 18.4 SECONDS (11.7-14.9)
== END ==
PROVIDERS: PCP Family Medicine; Referring Provider Nurse Practitioner Family; Visit Provider Nurse Practitioner Family
DX: N18.9 Chronic kidney disease, unspecified (principal); Z79.01 Long term (current) use of anticoagulants
CPT/HCPCS: 36415; 85610

== ENCOUNTER 2019-12-29 13:18 | Outpatient (RCR) | payer MEDICARE, SELFPAY ==
[2019-12-22 10:42] VITALS: BMI 50.9
[2019-12-29 15:58] LABS: International Normalized Ratio 2.5; Prothrombin Time (Protime)PT. 26.5 SECONDS (11.7-14.9)
== END 2019-12-29 18:00 | disposition home or self-care (01) ==
LOC: LAB 13:18
PROVIDERS: PCP Family Medicine; Visit Provider Nurse Practitioner Family
DX: I48.91 Unspecified atrial fibrillation (principal); Z79.01 Long term (current) use of anticoagulants; Z86.79 Personal history of other diseases of the circulatory system
CPT/HCPCS: 36415; 85610

== ENCOUNTER 2019-12-29 13:52 | Inpatient (IN) | payer MEDICARE, SELFPAY ==
[2019-12-22 10:42] VITALS: BMI 50.9
[2019-12-29] VITALS (19 sets, daily range): BP systolic 90–126; BP diastolic 32–91; PULSE 34–62; RESP 12–26; TEMP 35.5–36.7; O2SAT 96–100; BMI 52.0; BMI 52.6
--- NOTE | 2019-12-29 14:08 | EKG12_ITS ---
Test Reason : SOB Blood Pressure : / mmHG Vent. Rate : 039 BPM Atrial Rate : 039 BPM P-R Int : 000 ms QRS Dur : 158 ms QT Int : 500 ms P-R-T Axes : 000 163 091 degrees QTc Int : 402 ms Afib with heart block Right bundle branch block Abnormal ECG Confirmed by SCOTT HAMLIN, PHILLIP ([id number]), editorial clerk JAVIER GREEN ([id number]) on 01/01/2020 1:46:01 PM Referred By: VILMA Confirmed By:PHILLIP CHAVEZ MD
--- NOTE | 2019-12-29 14:08 | RAD_ITS ---
STUDY: X-RAY CHEST REASON FOR EXAM: Male, 59 years old. Increase SOB and weakness, new dialysis pt TECHNIQUE: Single AP portable view of the chest. COMPARISON: Comparison is made with prior study dated 12/12/2019. FINDINGS: A right-sided temporary dialysis catheter is seen with the tip in the midportion of the superior vena cava. Persistent vascular congestion and CHF although there has been improvement as compared to prior study. Residual atelectasis and/or infiltrates at the lung bases although there has been improvement. Sternal cerclage wires and vascular clips are present from a prior sternotomy and coronary artery bypass graft procedure (CABG). Mild cardio mainly. Normal mediastinum and kelsie. Normal visualized pulmonary arteries. There is atherosclerotic tortuosity of the aortic arch and descending thoracic aorta. There are diffuse degenerative changes of the visualized thoracic spine. Normal visualized ribs, clavicles, and shoulders. There is no demonstrated abnormality of the visualized soft tissue structures of the upper abdomen. RAD/Chest 1 View (Portable) IMPRESSION: Persistent mild degree of CHF with atelectasis/infiltrates at the lung bases although there has been moderate improvement as compared to prior study. Electronically Signed: Fortunato Francisco, at 14:57 EDT , Service support ,
[2019-12-29 14:25] LABS: Absolute Lymphocyte Count 1.11 X10^3/uL (0.83-4.51); Absolute Neutrophil Count 5.6 X10^3/uL (2.0-7.7); Basophil# 0.04 X10^3/uL; Basophil% 0.5 % (0-1); Eosinophil# 0.18 X10^3/uL; Eosinophils% 2.2 % (0-5); Lymphocyte # 1.11 X10^3/ul (4.0); Lymphocyte % 13.6 % (19-41); Mean Corp Hgb Conc 28.9 g/dL (32-36); Mean Corpuscular Hgb 25.5 pg (27.0-32.0); Mean Corpuscular Volume 88.2 fL (80-94); Mean Platelet Vol. 8.7 fl (6.2-12.0); Monocyte# 1.19 X10^3/uL; Monocyte% 14.6 % (0-10); NRBC Flagged by Analyzer 0 % (0-5); Neutrophil # 5.58 X10^3/uL (2.7-7.7); Neutrophil % 68.5 % (47-70); Platelet Count 230 K/mm3 (150-450); RBC Distribution Width CV 18.6 % (11.6-14.6); RBC Distribution Width SD 60.9 fl (35.1-43.9); Red Blood Count 4.31 M/mm3 (4.6-6.2); White Blood Count 8.2 K/mm3 (4.4-11.0)
--- NOTE | 2019-12-29 14:32 | ED.DCSUM_ITS ---
- ER Visit Summary Date of Service: 12/29/19 Chief Complaint: Shortness of breath History of Present Illness: The patient is a 59 M presenting with shortness of breath. Patient states this started yesterday. He recently started dialysis. He is on dialysis Wednesday, , Wednesday. He completed dialysis yesterday. He denies chest pain. Denies fever or cough. He is on home O2, 3 to 4 L. He is not a smoker. Physical Examination: Vitals are stable. Heart rate 39. Patient is afebrile. Alert no acute distress. Pulse ox 100% on 4 L HEENT exam is unremarkable. Neck is supple. Lungs are diminished bilaterally. Heart is regular bradycardic Abdomen is soft nontender nondistended. Skin is warm and dry. No focal neurologic deficit. Remainder of exam is unremarkable. Emergency Department Course and Treatment: EKG is sinus bradycardia rate of 39. Chest xray shows persistent mild degree of CHF with atelectasis/infiltrates at the lung bases although there has been moderate improvement as compared to prior study. Patient was started on BiPAP in the ED. CBC shows hemoglobin 11.0. Chemistries show potassium 7.5, glucose 123, BUN 29, creatinine 2.15. INR 2.6. Troponin is negative. Lactic acid is normal. COVID is pending. ABG shows pH 7.3, PCO2 61.9, PO2 95. Patient was given calcium, insulin, glucose, bicarb. Discussed with hospitalist for admission. Disposition: Admission Impression: Hyperkalemia, respiratory failure, end-stage renal disease on hemodialysis, CHF This note was generated with [employer] dictation software. It may contain incorrect words, spelling, and punctuation that were not noted in review of the chart prior to signing ED Disposition - Plan for ED Patient: Referrals: Francisco Alcazar MD [Primary Care Provider] -
[2019-12-29 14:35] LABS: International Normalized Ratio 2.6; Prothrombin Time (Protime)PT. 27.3 SECONDS (11.7-14.9)
[2019-12-29 14:52] LABS: Base Excess 4 mmol/L (-2 to +2); Bicarbonate 30.5 mmol/L (22-26); Blood Gas Specimen Type ART; PO2 95 mmHG (75-100); SITE R Brach; SO2 96 % (95-99); Total Carbon Dioxide 32 mmol/L; pCO2 61.9 mmHg (35-45)
--- NOTE | 2019-12-29 14:58 | HP.PCM_ITS ---
Problem List (1) Hyperkalemia Status: Acute (2) Chronic kidney disease (CKD) Status: Chronic (3) Acute on chronic congestive heart failure Status: Acute Qualifiers: Heart failure type: right-sided Qualified Code(s): I50.813 - Acute on chronic right heart failure (4) CHF (congestive heart failure) Status: Chronic Qualifiers: Heart failure type: diastolic Heart failure chronicity: acute on chronic Qualified Code(s): I50.33 - Acute on chronic diastolic (congestive) heart failure (5) Supratherapeutic INR Status: Acute (6) Morbid obesity with BMI of 50.0-59.9, adult Status: Chronic (7) skilled nursing current use of anticoagulant Status: Chronic (8) History of right and left heart catheterization Status: Chronic Comment: Done s/p VSD repair Per Dr. Sherif Espinoza @ [facility]: normal coronaries, mildly elevated PA pressures (9) Paroxysmal SVT (supraventricular tachycardia) Status: Chronic (10) Atrial fibrillation Status: Chronic Qualifiers: Atrial fibrillation type: unspecified Qualified Code(s): I48.91 - Unspecified atrial fibrillation (11) Chronic diastolic congestive heart failure Status: Chronic (12) History of patent ductus arteriosus as a child Status: Chronic Comment: Repaired at age 3 years, done @ [facility] (13) Nonrheumatic tricuspid valve regurgitation Status: Chronic Comment: Leaflet used for VSD repair in past (14) History of ventricular septal defect repair Status: Chronic Comment: 1977 (pt approx age 18) using Dacron patch, done at [facility] (15) Hyperlipidemia Status: Chronic Qualifiers: Hyperlipidemia type: unspecified Qualified Code(s): E78.5 - Hyperlipidemia, unspecified (16) Hypertension Status: Chronic Qualifiers: Hypertension type: essential hypertension Qualified Code(s): I10 - Essential (primary) hypertension (17) Diabetes mellitus, type II Status: Chronic Qualifiers: Diabetes mellitus senior living insulin use: with long term care social worker use Diabetes mellitus complication status: with other specified complication Qualified Code(s): E11.69 - Type 2 diabetes mellitus with other specified complication; Z79.4 - long term care social worker (current) use of insulin (18) History of radiofrequency ablation procedure for cardiac arrhythmia Status: Chronic Comment: Attempted atrial flutter ablation @ [facility] X 1 (unsuccessful), followed by Atrial flutter ablations X [address] Paul at [facility] in Apr and October of 1998 (19) Pulmonary hypertension, moderate to severe Status: Chronic Comment: PASP 69 mmHg in September 2013 (20) LASHAWN (obstructive sleep apnea) Status: Chronic History of Present Illness Date of Admission: 12/29/19 The patient is a 59 year old M with multiple medical issues as outlined in the assessment and plan presented to the ED today with SOB and general malaise. Pt is on NIV and his is at bedside and gives most of the history. She states that over the last couple of days he has not been feeling well. He went to HD yesterday and was a bit hypotensive during HD. His states that today he has been SOB and just not feeling well with non-specific complaints. He came to the hospital to get his INR assessed and since he was here and feeling poorly decided to come to the ED. His does admit that he has not been wearing his BIPAP at as the machine is broken and they are having a hard time finding someone who will write a script for a new machine. He has new masks. Per the they are in the process of making an appt with Dr. Soria to assist with his pulmonary issues. He is afebrile. His BP is stable but he is markedly bradycardic. ABG shows a mixed metabolic and respiratory acidosis but predominantly metabolic. His pCO2 is elevated but close to baseline. His HCO3 however is now 30 and his old baseline was 37. Is suspect the difference is the change in new HD. He has normal white count. His CXR shows improvement when compared to previous. His sCr is stable at 2.15, but his K is 7.4. His states that he has been taking 40 mEq of K 3x/day at home. He was treated in the ED with NIV, Calcium gluconate, HCO3, insulin, and glucose. I discussed the case with his residential aide, Dr. rAevalo, and he will arrange for HD tonight. Past Medical History Past Medical History (Chronic Problems): Chronic Problems (Last Reviewed 12/29/19 @ 16:[address] Christine Thorne DO) Chronic kidney disease (CKD) (Chronic) CHF (congestive heart failure) (Chronic) Morbid obesity with BMI of 50.0-59.9, adult (Chronic) long term care social worker current use of anticoagulant (Chronic) History of right and left heart catheterization (Chronic 02/18/98) Done s/p VSD repair Per Dr. Sherif Espinoza @ [facility]: normal coronaries, mildly elevated PA pressures Paroxysmal SVT (supraventricular tachycardia) (Chronic) Atrial fibrillation (Chronic) History of atrial flutter (Chronic) Attempted atrial flutter ablation @ [facility] X 1 in 1997 (unsuccessful), followed by Atrial flutter ablations X [address] Paul at [facility] in Apr and October of 1998 Chronic diastolic congestive heart failure (Chronic) History of patent ductus arteriosus as a child (Chronic) Repaired at age 3 years, done @ [facility] Nonrheumatic tricuspid valve regurgitation (Chronic) Leaflet used for VSD repair in past History of ventricular septal defect repair (Chronic) 1977 (pt approx age 18) using Dacron patch, done at [facility] Hyperlipidemia (Chronic) Hypertension (Chronic) Diabetes mellitus, type II (Chronic) History of radiofrequency ablation procedure for cardiac arrhythmia (Chronic) Attempted atrial flutter ablation @ [facility] X 1 (unsuccessful), followed by Atrial flutter ablations X [address] Paul at [facility] in Apr and October of 1998 Pulmonary hypertension, moderate to severe (Chronic) PASP 69 mmHg in September 2013 LASHAWN (obstructive sleep apnea) (Chronic) Medical History: Medical History (Last Reviewed 12/29/19 @ 16:[address] Christine Thorne DO) skilled nursing current use of anticoagulant (Chronic) Z79.01 Paroxysmal SVT (supraventricular tachycardia) (Chronic) I47.1 Atrial fibrillation (Chronic) I48.91 History of atrial flutter (Chronic) Z86.79 Attempted atrial flutter ablation @ [facility] X 1 in 1997 (unsuccessful), followed by Atrial flutter ablations X [address] Paul at [facility] in Apr and October of 1998 Chronic diastolic congestive heart failure (Chronic) I50.32 History of patent ductus arteriosus as a child (Chronic) Z87.74 Repaired at age 3 years, done @ [facility] Nonrheumatic tricuspid valve regurgitation (Chronic) I36.1 Leaflet used for VSD repair in past Hyperlipidemia (Chronic) E78.5 Hypertension (Chronic) I10 Diabetes mellitus, type II (Chronic) E11.9 Pulmonary hypertension, moderate to severe (Chronic) I27.2 PASP 69 mmHg in September 2013 LASHAWN (obstructive sleep apnea) (Chronic) G47.33 History of arm fracture Z87.81 X2 History of paroxysmal supraventricular tachycardia (Inactive) Z86.79 Allergies albuterol Adverse Reaction (Verified 12/29/19 13:56) NEEDS FOLLOW-UP increased heart rate. amoxicillin trihydrate [From Augmentin] Adverse Reaction (Verified 12/29/19 13:56) Diarrhea indomethacin [From Indocin] Adverse Reaction (Verified 12/29/19 13:56) Nausea potassium clavulanate [From Augmentin] Adverse Reaction (Verified 12/29/19 13:56) Diarrhea Home Medications: Ambulatory Orders Medication Instructions Recorded Atorvastatin Calcium 20 mg PO QHS 04/16/19 Insulin Glargine [Lantus SoloStar 40 units SUBCUT BID pen 04/28/19 Pen] Insulin Lispro [Humalog KwikPen] 5 unit SUBCUT LUNCH insuln.pen 04/28/19 Insulin Lispro [Humalog KwikPen] 6 unit SUBCUT DINNER insuln.pen 04/28/19 Insulin Lispro [Humalog KwikPen] 7 unit SUBCUT BREAKFAST insuln.pen 04/28/19 Insulin Lispro [Humalog KwikPen] See Protocol SUBCUT ACHS 04/28/19 insuln.pen Metoprolol(XL)Succ [Toprol Xl 50 mg PO DAILY tab 04/28/19 (Beta Rakesh)] Amiodarone HCl 200 mg PO BID 08/08/19 Multivitamin [Daily Multiple 1 ea PO DAILY 10/28/19 Vitamin] Tamsulosin HCl [Flomax] 0.4 mg PO DAILY #90 cap 11/01/19 Acetaminophen [Tylenol] 625 mg PO Q6H PRN PRN 11/21/19 Docusate Sodium [Colace] 100 mg PO DAILY PRN PRN 11/21/19 Melatonin 3 mg PO QHS PRN 11/21/19 Multivitamin with Minerals 1 ea PO DAILY 11/21/19 [Multiple Vitamin] Warfarin [Coumadin] 3 mg PO DAILY 11/21/19 Furosemide [Lasix] 80 mg PO BID@1000,1800 #90 tab 12/15/19 Insulin Glargine [Lantus SoloStar 30 units SUBCUT 1100,2200 #2 pen 12/15/19 Pen] Potassium Chloride [K-Dur] 40 meq PO DAILYCM #30 tab 12/15/19 warfarin 2.5 mg tablet 5 mg PO .COMPLEX #1 tab 12/22/19 Surgical History: Surgical History (Last Reviewed 10/28/19 @ 03:[address] Fredi Cobb DO) History of right and left heart catheterization (Chronic) Onset Date: 02/18/98 Z98.890 Done s/p VSD repair Per Dr. Sherif Espinoza @ [facility]: normal coronaries, mildly elevated PA pressures History of ventricular septal defect repair (Chronic) Z87.74 1977 (pt approx age 18) using Dacron patch, done at [facility] History of radiofrequency ablation procedure for cardiac arrhythmia (Chronic) Z98.890 Attempted atrial flutter ablation @ [facility] X 1 (unsuccessful), followed by Atrial flutter ablations X [address] Paul at [facility] in Apr and October of 1998 Surgical History: - Psychiatric History: No pertinent psych hx Smoking Status: Unknown if ever smoked - *Family History Maternal Family History: Family History (Last Reviewed 10/28/19 @ 03:[address] Fredi Cobb DO) Mother Hypertension Diabetes CVA (cerebral vascular accident) Valvular heart disease Father CVA (cerebral vascular accident) Hypertension Hyperlipidemia History Items: Diabetes, High Cholesterol, Heart Disease, Hypertension, Stroke, - - Mother with history of concurrent valvular heart disease. Paternal Family History: Family History (Last Reviewed 10/28/19 @ 03:[address] Fredi Cobb, ) Mother Hypertension Diabetes CVA (cerebral vascular accident) Valvular heart disease Father CVA (cerebral vascular accident) Hypertension Hyperlipidemia History Items: High Cholesterol, Heart Disease, Hypertension, Stroke Review of Systems Constitutional: Reports: Weakness, Weight Change, Fatigue. Denies: Anorexia, Chills, Fever, Night Sweats, Malaise Eyes: Denies: Blurred vision, Cataracts, Conjunctivae Inflammation, Double vision, Drainage, Eyelid Inflammation, Redness, Vision Change HEENT: Denies: Difficulty Hearing, Difficulty Swallowing, Dysphasia, Ear Pain, Eye Pain, Hard of Hearing, Head Aches, Hearing Changes, Nasal bleeding, Nasal Congestion, Post Nasal Drip, Sinus Drainage, Sore Throat, Visual Changes Cardiovascular: Reports: Edema - chronic and improving, Light Headedness - with HD yesterday. Denies: Chest Pain, Claudication, Chest Pressure, Chest Tightness, Heaviness, Orthopnea, Palpitations, Paroxysmal Noc. Dyspnea, Syncope Respiratory: Reports: Shortness of Breath, Shortness of breath at rest, Shortness of breath upon exertion. Denies: Cough, Hemoptysis, Pleuritic Pain, Sputum production, Wheezing Gastrointestinal: Denies: Abdominal Pain, Constipation, Diarrhea, Dyspepsia, Hematemesis, Hematochezia, Nausea, Melena, Vomiting Genitourinary: Denies: Dysuria, Frequency, Hematuria, Hesitancy, Incontinence, Nocturia, Retention, Urgency Musculoskeletal: Denies: Arm Pain, Back Pain, Joint Pain, Joint stiffness, Joint swelling, Joint Tenderness, Muscle pain, Neck Pain Skin: Reports: Wounds - healing B LE. Denies: Dryness, Jaundice, Lesions, Pruritis, Rash, Skin Changes Neurological: Denies: Balance problems, Blurred vision, Double vision, Change in Speech, Slurred speech, Confusion, Difficulty swallowing, Focal weakness, Headaches, Incoordination, Numbness, Tingling, Tremor, Seizures Psychiatric: Denies: Anxiety, Depression Endocrine: Denies: Change in Body Habitus, Heat/ Cold Intolerance, Polydipsia, Polyuria Hematologic/ Lymphatic: Denies: Adenopathy, Anemia, Easy Bruising, Easy Bleeding, Petechiae, Purpura VTE Information - Inpt Only VTE Present on Admission: No VTE Mechan Device Prophylaxis: None VTE Pharm Prophylaxis ordered?: No Reason prophylaxis not ordered:: Procedure Not Indicated - pt on OAC and is therapeutic Patient Problems: Active and Suspected Problems (Last Reviewed 12/29/19 @ 16:[address] Christine Thorne, DO) Hyperkalemia (Acute) - Physical Exam Vitals/I&O's: Vital Signs Temp Pulse Resp BP Pulse Ox 97.2 F L 37 L 16 115/51 L 100 12/29/19 14:04 12/29/19 14:04 12/29/19 14:04 12/29/19 14:04 12/29/19 13:52 Oxygen Flow Rate (L/min) 3 Oxygen Delivery Method Nasal Cannula Weight: 155.129 kg Body Mass Index (BMI) 52.0 Finger Stick Blood Glucose 95 General: Alert, Oriented x3, Cooperative, Well developed, Well nourished, - - Obese WM, sitting up in bed with NIV in place, appears very tired, at bedside HEENT: Atraumatic, EOMI, Normocephalic, EAC Clear Oral: No Gingival or Mucosal Lesions/ Ulcerations, Dry Mucosa Neck: Supple, No JVD, Negative Carotid Bruits, Negative Hepatojugular Reflux, No Nodes, Trachea Midline, Thyroid Normal Size and Texture Lungs: Clear to auscultation, No rhonchi, No wheeze, No rales, Diminished Cardiovascular: Normal S1, Normal S2, No murmurs, Bradycardic - HR in 30-40's, No rub noted, No Gallop Abdomen: Bowel Sounds Present, Soft, Non Tender, Non-Distended, No Hepato- splenomegaly, Obese - severe, No hernias noted Extremities: No clubbing, No cyanosis, Edema - much improved as compared to previous visits, Peripheral Pulses Normal Skin: No rashes, Ulcer/ Wound - R LE but healing-dressing and compression garments in placed but removed temporarily for exam Musculoskeletal: No Tenderness to Palpation of Joints or Extremities, No Muscle Wasting, Arthritic Changes Lymphatic: No Cervical, Supraclavicular, or Inguinal Adenopathy Neurological: Cranial nerves II-XII grossly intact, Deep Tendon Reflexes 2+/4 and Symmetrical, Neuro grossly intact, Motor Exam 5/5 strength throughout, Muscle tone normal, Coordination normal Psych/Mental Status: Appropriate, Flat Affect Laboratory Results 12/29/19 14:10: WBC 8.2, RBC 4.31 L, Hgb 11.0 L, Hct 38.0 L, MCV 88.2, MCH 25.5 L, MCHC 28.9 L, RDW Std Deviation 60.9 H, RDW Coeff of Janiya 18.6 H, Plt Count 230, MPV 8.7, Immature Gran % (Auto) 0.600, Neut % (Auto) 68.5, Lymph % (Auto) 13.6 L, [place] % (Auto) 14.6 H, Eos % (Auto) 2.2, Baso % (Auto) 0.5, Absolute Neuts (auto) 5.6, Absolute Lymphs (auto) 1.11, Nucleated RBC % 0 12/29/19 14:10: PT 27.3 H, INR 2.6 12/29/19 14:10: Sodium Pending, Potassium Pending, Chloride Pending, Carbon Dioxide Pending, Anion Gap Pending, BUN Pending, Creatinine Pending, Est GFR (MDRD) Af Amer Pending, Est GFR (MDRD) Non-Af Pending, BUN/Creatinine Ratio Pending, Glucose Pending, Calcium Pending, Troponin I Pending 12/29/19 14:10: Lactic Acid Pending 12/29/19 14:20: COVID-19 ([facility]) Pending 12/29/19 14:43: Specimen Type ART, Sample Site R Brach, pH 7.30 L, Bicarbonate Actual 30.5 H, Total CO2 32, Base Excess 4 H, O2 Saturation 96, ABG pCO2 61.9 H, ABG pO2 95 Assessment/Plan All Active Problems (Last Reviewed 12/29/19 @ 16:[address] Christine Thorne, DO) Hyperkalemia (Acute) Acute on chronic congestive heart failure (Acute) Supratherapeutic INR (Acute) Acute Hypoxic on Chronic Hypoxic/Hypercapnic Respiratory Failure -on 3 L O2 at baseline and was on 3 L at the time of his ABG but has a respiratory acidosis -is now on iHD for volume mgt and gets HD on TTS -NIV for now with NPO for now -repeat ABG after HD and if better may come off for dinner -COVID 19 was -pt is to be on CPAP at night but has not been able to wear his machine as it is broken and he needs a new script for a new machine and has not been able to get a script from anyone -is to see Dr. Soria soon to address -doubt infectious--> will hold on ABX -check urine antigens -Pulm/CCM consulted Hyperkalemia -k was 7.5 on arrival and has EKG changes c/w hyperkalemia -was given Calcium gluconate, HCO3, insulin and glucose -should improve with improvement with respiratory acidosis too -HD today--> d/w Dr. Arevalo -repeat BMP after HD -pt has been on 120mEq daily at home of K -hold all K replacement Bradycardia -rhythm was initally junctional but now looks like A-fib -likely related to hyperkalemia -pt did take BB today -hold metoprolol for now -treat hyperkalemia as outlined above CKD Stage 3 -was HD dependent from Apr-July -is on iHD primarily for UF -will consult Nepho--> d/w Dr. 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 bariatrics f/u H/O VSD and PDA repair -no current issues DVT Prophylaxis -coumadin Code Status -Full CCT > 31 min [id number] Procedures: [id number] Critial Care 1st Hr
[2019-12-29 15:01] LABS: Lactic Acid 1.5 mmol/L (0.4-1.9)
[2019-12-29 15:05] LABS: Anion Gap 1 (5-15); BUN 29 mg/dL (7-18); BUN/Creat Ratio 13.5 RATIO (10-20); Calcium,Total 8.7 mg/dL (8.5-10.1); Chloride 103 mmol/L (98-107); Creatinine, Serum 2.15 mg/dL (0.70-1.30); EST Glomerular Filtration Rate 33 mL/min (>60); Est Glom Filt Rate - Afr Amer 40 mL/min (>60); Estimated Creatinine Clearance 34.91 ml/min; Glucose 123 mg/dL (74-106); Potassium 7.5 mmol/L (3.5-5.1); Sodium Level 134 mmol/L (136-145)
[2019-12-29] MEDS: Dextrose 50%-Water 25 GM/50 ML DISP.SYRIN IV (15:29)
[2019-12-29] MEDS: Insulin Lispro 5 UNIT in Syringe 0 ML 3 UNIT IV (15:30)
[2019-12-29] MEDS: Sodium Bicarbonate 8.4% 50 ML Syringe 50 MEQ IV (15:37)
--- NOTE | 2019-12-29 15:53 | NURSING ---
ICU 3 DANY HYPERKALEMIA, CHF, ESRD, RESP FAILURE
[2019-12-29 17:21] LABS: Bedside Glucose 105 mg/dL (70-110)
--- NOTE | 2019-12-29 17:50 | CON.PCM_ITS ---
Problem List (1) MOUNA (acute kidney injury) Status: Acute (2) Hyperkalemia Status: Acute (3) CHF (congestive heart failure) Status: Chronic Qualifiers: Heart failure type: diastolic Heart failure chronicity: acute on chronic Qualified Code(s): I50.33 - Acute on chronic diastolic (congestive) heart failure Consultation - Renal 12/29/19 PCP/ Referring MD: Requesting physician: [] Primary care physician: Dr. Francisco Alcazar MD Reason for Consultation:: MOUNA - History of Present Illness History of Present Illness: The patient is a 59 year old M who presented to hospital with complaints of dizziness, low HR and dyspnea. found to have severe hyperkalemia. COVID rule out precautions. - Allergies Allergies: Allergies albuterol Adverse Reaction (Verified 12/29/19 15:51) increased heart rate increased heart rate. amoxicillin trihydrate [From Augmentin] Adverse Reaction (Verified 12/29/19 13:56) Diarrhea indomethacin [From Indocin] Adverse Reaction (Verified 12/29/19 13:56) Nausea potassium clavulanate [From Augmentin] Adverse Reaction (Verified 12/29/19 13:56) Diarrhea - Current Medications Current Medications: Current Medications Acetaminophen (Tylenol) 650 mg PO Q6H PRN PRN PRN Reason: Pain Score 1-10/Temp > 100.7 F Amiodarone HCl (Cordarone) 200 mg PO BID DANIEL Atorvastatin Calcium (Lipitor) 20 mg PO QHS DANIEL Docusate Sodium (Colace) 100 mg PO DAILY PRN PRN PRN Reason: STOOL SOFTNER Furosemide (Lasix) 80 mg PO BID@1000,1800 DANIEL Heparin Sodium (Porcine) () 2,500 units IV UD PRN PRN Reason: Dialysis Cath Heparin Flush Hydromorphone HCl (Dilaudid Inj) 0.5 mg IV Q4H PRN PRN PRN Reason: Pain Score 6-10/10 Insulin Glargine (Lantus (Bkc)) 15 units SC BREAKFAST DANIEL Insulin Glargine (Lantus (Bkc)) 15 units SC QHS DANIEL Insulin Human Lispro (Humalog Kwikpen (Bkc)) 0 unit SC Q6 DANIEL; Protocol Last Admin: 12/29/19 17:17 Dose: Not Given Documented by: Ondansetron HCl (Zofran) 4 mg IV Q8H PRN PRN PRN Reason: NAUSEA/VOMITING Sodium Chloride () 10 ml IV UD PRN PRN Reason: Dialysis Catheter Flush Sodium Chloride () 10 - 40 ml IV UD PRN PRN Reason: SALINE FLUSH Tamsulosin HCl (Flomax) 0.4 mg PO QHS DANIEL Warfarin Sodium (Jantoven) 3 mg PO SuMoTuWeFrSa@1700 DANIEL; Protocol Warfarin Sodium (Jantoven) 5 mg PO Th@1700 DANIEL; Protocol - Past Medical History Past Medical History (Chronic Problems): Chronic Problems (Last Reviewed 12/29/19 @ 16:[address] Christine Thorne, DO) Chronic kidney disease (CKD) (Chronic) CHF (congestive heart failure) (Chronic) Morbid obesity with BMI of 50.0-59.9, adult (Chronic) MCC current use of anticoagulant (Chronic) History of right and left heart catheterization (Chronic 02/18/98) Done s/p VSD repair Per Dr. Sherif Espinoza @ [facility]: normal coronaries, mildly elevated PA pressures Paroxysmal SVT (supraventricular tachycardia) (Chronic) Atrial fibrillation (Chronic) History of atrial flutter (Chronic) Attempted atrial flutter ablation @ [facility] X 1 in 1997 (unsuccessful), followed by Atrial flutter ablations X [address] Paul at [facility] in Apr and October of 1998 Chronic diastolic congestive heart failure (Chronic) History of patent ductus arteriosus as a child (Chronic) Repaired at age 3 years, done @ [facility] Nonrheumatic tricuspid valve regurgitation (Chronic) Leaflet used for VSD repair in past History of ventricular septal defect repair (Chronic) 1977 (pt approx age 18) using Dacron patch, done at [facility] Hyperlipidemia (Chronic) Hypertension (Chronic) Diabetes mellitus, type II (Chronic) History of radiofrequency ablation procedure for cardiac arrhythmia (Chronic) Attempted atrial flutter ablation @ [facility] X 1 (unsuccessful), followed by Atrial flutter ablations X [address] Paul at [facility] in Apr and October of 1998 Pulmonary hypertension, moderate to severe (Chronic) PASP 69 mmHg in September 2013 LASHAWN (obstructive sleep apnea) (Chronic) - Past Surgical History Surgical History: - - Social History Smoking Status: Former smoker - Family History Maternal Family History: Family History (Last Reviewed 10/28/19 @ 03:[address] Fredi Cobb DO) Mother Hypertension Diabetes CVA (cerebral vascular accident) Valvular heart disease Father CVA (cerebral vascular accident) Hypertension Hyperlipidemia History Items: Diabetes, High Cholesterol, Heart Disease, Hypertension, Stroke, - - Mother with history of concurrent valvular heart disease. Paternal Family History: Family History (Last Reviewed 10/28/19 @ 03:[address] Fredi Cobb DO) Mother Hypertension Diabetes CVA (cerebral vascular accident) Valvular heart disease Father CVA (cerebral vascular accident) Hypertension Hyperlipidemia History Items: High Cholesterol, Heart Disease, Hypertension, Stroke Review of Systems Constitutional: Denies: Chills, Fever, Weight Change HEENT: Denies: Head Aches, Sinus Congestion, Sinus Drainage Cardiovascular: Denies: Chest Pain, Palpitations Respiratory: Reports: Shortness of Breath, Shortness of breath at rest. Denies: Cough, Sputum production Gastrointestinal: Denies: Abdominal Pain, Nausea, Vomiting Genitourinary: Denies: Dysuria Musculoskeletal: Denies: Joint Pain, Joint Tenderness Skin: Denies: Rash, Wounds Neurological: Denies: Numbness, Tingling, Focal weakness Psychiatric: Denies: Anxiety, Depression, Homicidal Ideations, Suicidal Ideations Hematologic/ Lymphatic: Denies: Easy Bruising, Easy Bleeding Patient Problems: Active and Suspected Problems (Last Reviewed 12/29/19 @ 16:[address] Christine Thorne DO) Hyperkalemia (Acute) MOUNA (acute kidney injury) (Acute) - Physical Exam Vitals/I&O's: Vital Signs Temp Pulse Resp BP Pulse Ox 97.5 F L 50 L 18 93/40 L 100 12/29/19 15:53 12/29/19 15:53 12/29/19 15:53 12/29/19 15:53 12/29/19 15:53 Oxygen Flow Rate (L/min) 3 Oxygen Delivery Method Bi-pap Weight: 156.9 kg Body Mass Index (BMI) 52.6 Finger Stick Blood Glucose 95 Intake and Output for Last 24 Hours 12/27/19 12/28/19 12/29/19 23:59 23:59 23:59 Intake Total 60.05 / 60.05 Balance 60.05 / 60.05 General: Alert, Oriented x3, Cooperative HEENT: Atraumatic, PERRLA, EOMI, Normocephalic Neck: Supple, No JVD, Negative Carotid Bruits Lungs: Clear to auscultation, Normal air movement Cardiovascular: Regular rate, No murmurs Abdomen: Bowel Sounds Present, Soft, Non Tender Extremities: No edema, Capillary Refill Less than 3 Seconds Skin: No rashes, No breakdown Musculoskeletal: No Tenderness to Palpation of Joints or Extremities Neurological: Cranial nerves II-XII grossly intact Psych/Mental Status: Normal Affect, Appropriate Laboratory Results 12/29/19 14:10: WBC 8.2, RBC 4.31 L, Hgb 11.0 L, Hct 38.0 L, MCV 88.2, MCH 25.5 L, MCHC 28.9 L, RDW Std Deviation 60.9 H, RDW Coeff of Janiya 18.6 H, Plt Count 230, MPV 8.7, Immature Gran % (Auto) 0.600, Neut % (Auto) 68.5, Lymph % (Auto) 13.6 L, [place] % (Auto) 14.6 H, Eos % (Auto) 2.2, Baso % (Auto) 0.5, Absolute Neuts (auto) 5.6, Absolute Lymphs (auto) 1.11, Nucleated RBC % 0 12/29/19 14:10: PT 27.3 H, INR 2.6 12/29/19 14:10: Sodium 134 L, Potassium 7.5 H*, Chloride 103, Carbon Dioxide 30.0, Anion Gap 1 L, BUN 29 H, Creatinine 2.15 H, Estim Creat Clear Calc 34.91, Est GFR (MDRD) Af Amer 40 L, Est GFR (MDRD) Non-Af 33 L, BUN/Creatinine Ratio 13.5, Glucose 123 H, Calcium 8.7, Troponin I < 0.015 12/29/19 14:10: Lactic Acid 1.5 12/29/19 14:20: COVID-19 (BROWN) Not Detected 12/29/19 14:43: Specimen Type ART, Sample Site R Brach, pH 7.30 L, Bicarbonate Actual 30.5 H, Total CO2 32, Base Excess 4 H, O2 Saturation 96, ABG pCO2 61.9 H, ABG pO2 95 12/29/19 17:10: Potassium Pending 12/29/19 17:14: POC Glucose 105 Current Medications Acetaminophen (Tylenol) 650 mg PO Q6H PRN PRN PRN Reason: Pain Score 1-10/Temp > 100.7 F Amiodarone HCl (Cordarone) 200 mg PO BID [facility] Atorvastatin Calcium (Lipitor) 20 mg PO QHS DANIEL Docusate Sodium (Colace) 100 mg PO DAILY PRN PRN PRN Reason: STOOL SOFTNER Furosemide (Lasix) 80 mg PO BID@1000,1800 DANIEL Heparin Sodium (Porcine) () 2,500 units IV UD PRN PRN Reason: Dialysis Cath Heparin Flush Hydromorphone HCl (Dilaudid Inj) 0.5 mg IV Q4H PRN PRN PRN Reason: Pain Score 6-10/10 Insulin Glargine (Lantus (Bkc)) 15 units SC BREAKFAST DANIEL Insulin Glargine (Lantus (Bkc)) 15 units SC QHS [facility] Insulin Human Lispro (Humalog Kwikpen (Bk)) 0 unit SC Q6 DANIEL; Protocol Last Admin: 12/29/19 17:17 Dose: Not Given Documented by: Ondansetron HCl (Zofran) 4 mg IV Q8H PRN PRN PRN Reason: NAUSEA/VOMITING Sodium Chloride () 10 ml IV UD PRN PRN Reason: Dialysis Catheter Flush Sodium Chloride () 10 - 40 ml IV UD PRN PRN Reason: SALINE FLUSH Tamsulosin HCl (Flomax) 0.4 mg PO QHS [facility] Warfarin Sodium (Jantoven) 3 mg PO SuMoTuWeFrSa@1700 DANIEL; Protocol Warfarin Sodium (Jantoven) 5 mg PO Th@1700 DANIEL; Protocol Assessment/Plan All Active Problems (Last Reviewed 12/29/19 @ 16:[address] Christine Thorne, DO) Hyperkalemia (Acute) MOUNA (acute kidney injury) (Acute) Acute on chronic congestive heart failure (Acute) Supratherapeutic INR (Acute) MOUNA CHF Hyperkalemia was on massive K supplements due to persistent hypokalemia now hyperkalemic will dialyze today dw staff
[2019-12-29 17:57] LABS: Potassium 6.9 mmol/L (3.5-5.1)
--- NOTE | 2019-12-29 20:28 | DIALYSIS ---
HD x 3 hours complete. Tolerated tx well. Ran on 1k bath. UF of 2000ml. Used right chest wall catheter. Catheter closed with heparin per fill volume. Caps placed. Dressing is dry and intact. Report was given to ROBERTO Alan.
[2019-12-29] MEDS: Heparin 10,000 UNITS/10 ML Vial IV (20:53)
[2019-12-29] MEDS: Tamsulosin HCl 0.4 MG Capsule PO (21:01)
[2019-12-29] MEDS: Amiodarone 200 MG Tablet PO (21:01)
[2019-12-29] MEDS: Furosemide 80 MG Tablet PO (21:01)
[2019-12-29] MEDS: Atorvastatin Calcium 20 MG Tablet PO (21:02)
[2019-12-29 21:11] LABS: Bedside Glucose 126 mg/dL (70-110)
[2019-12-29 23:07] LABS: Anion Gap 3 (5-15); BUN 19 mg/dL (7-18); BUN/Creat Ratio 10.7 RATIO (10-20); Calcium,Total 8.3 mg/dL (8.5-10.1); Chloride 100 mmol/L (98-107); Creatinine, Serum 1.77 mg/dL (0.70-1.30); EST Glomerular Filtration Rate 42 mL/min (>60); Est Glom Filt Rate - Afr Amer 50 mL/min (>60); Glucose 147 mg/dL (74-106); Potassium 5.7 mmol/L (3.5-5.1); Sodium Level 135 mmol/L (136-145)
[2019-12-30] VITALS (24 sets, daily range): BP systolic 98–122; BP diastolic 39–82; PULSE 53–69; RESP 12–22; TEMP 36.1–36.8; O2SAT 94–100
--- NOTE | 2019-12-30 00:49 | CPS ---
PATIENT REQUESTED OFF BIPAP. NURSING PLACED PATIENT ON 3 LPM NC.
[2019-12-30 05:03] LABS: Absolute Lymphocyte Count 1.05 X10^3/uL (0.83-4.51); Basophil# 0.02 X10^3/uL; Basophil% 0.3 % (0-1); Eosinophil# 0.15 X10^3/uL; Hematocrit 33.8 % (40-54); Hemoglobin 9.9 g/dL (13.0-16.5); Lymphocyte # 1.05 X10^3/ul (4.0); Lymphocyte % 14.3 % (19-41); Mean Corp Hgb Conc 29.3 g/dL (32-36); Mean Corpuscular Volume 88.7 fL (80-94); Monocyte# 1.07 X10^3/uL; Monocyte% 14.6 % (0-10); NRBC Flagged by Analyzer 0 % (0-5); Neutrophil # 5.02 X10^3/uL (2.7-7.7); Neutrophil % 68.4 % (47-70); Platelet Count 198 K/mm3 (150-450); RBC Distribution Width CV 18.8 % (11.6-14.6); RBC Distribution Width SD 61.4 fl (35.1-43.9); Red Blood Count 3.81 M/mm3 (4.6-6.2); White Blood Count 7.3 K/mm3 (4.4-11.0)
[2019-12-30 05:12] LABS: International Normalized Ratio 2.7; Prothrombin Time (Protime)PT. 28.2 SECONDS (11.7-14.9)
[2019-12-30 05:19] LABS: ALB/GLOB Ratio 0.8 RATIO (0.9-2.4); AST(SGOT) 22 U/L (15-37); Alanine Aminotransfer ALT/SGPT 24 U/L (16-61); Albumin, Serum 2.9 g/dL (3.2-5.0); Alkaline Phosphatase 149 U/L (45-117); Anion Gap 3 (5-15); BUN 22 mg/dL (7-18); BUN/Creat Ratio 11.3 RATIO (10-20); Calcium,Total 8.2 mg/dL (8.5-10.1); Chloride 96 mmol/L (98-107); Creatinine, Serum 1.94 mg/dL (0.70-1.30); EST Glomerular Filtration Rate 38 mL/min (>60); Est Glom Filt Rate - Afr Amer 45 mL/min (>60); Estimated Creatinine Clearance 38.69 ml/min; Globulin 3.5 g/dL (2.2-4.2); Glucose 108 mg/dL (74-106); Magnesium 2.3 mg/dL (1.6-2.6); Phosphorus 3.6 mg/dL (2.5-4.9); Potassium 5.6 mmol/L (3.5-5.1); Protein, Total 6.4 g/dL (6.4-8.2); Sodium Level 133 mmol/L (136-145)
--- NOTE | 2019-12-30 07:27 | PCM.PN.HOSP ---
Patient Problems: Active and Suspected Problems (Last Reviewed 12/29/19 @ 16:[address] Christine Thorne DO) Hyperkalemia (Acute) MOUNA (acute kidney injury) (Acute) Vitals/I&O's: Vital Signs Temp Pulse Resp BP Pulse Ox 97.9 F 55 L 17 109/54 L 98 12/30/19 04:00 12/30/19 06:00 12/30/19 06:00 12/30/19 06:00 12/30/19 06:00 Oxygen Flow Rate (L/min) 3 Oxygen Delivery Method Nasal Cannula Weight: 155.4 kg Body Mass Index (BMI) 52.6 Finger Stick Blood Glucose 95 Intake and Output for Last 24 Hours 12/28/19 12/29/19 12/30/19 23:59 23:59 23:59 Intake Total 300.05 / 420.05 180 / 180 Output Total 1999 / 2099 200 / 200 Balance -1699.95 / -1679.95 -20 / -20 Microbiology Past 72 Hours 12/29/19 18:45 Urine, Clean Catch Streptococcus pneumoniae Antigen (M - Final 12/29/19 18:45 Urine, Clean Catch Legionella Antigen - Final Laboratory Results 12/29/19 14:10: WBC 8.2, RBC 4.31 L, Hgb 11.0 L, Hct 38.0 L, MCV 88.2, MCH 25.5 L, MCHC 28.9 L, RDW Std Deviation 60.9 H, RDW Coeff of Janiya 18.6 H, Plt Count 230, MPV 8.7, Immature Gran % (Auto) 0.600, Neut % (Auto) 68.5, Lymph % (Auto) 13.6 L, [place] % (Auto) 14.6 H, Eos % (Auto) 2.2, Baso % (Auto) 0.5, Absolute Neuts (auto) 5.6, Absolute Lymphs (auto) 1.11, Nucleated RBC % 0 12/29/19 14:10: PT 27.3 H, INR 2.6 12/29/19 14:10: Sodium 134 L, Potassium 7.5 H*, Chloride 103, Carbon Dioxide 30.0, Anion Gap 1 L, BUN 29 H, Creatinine 2.15 H, Estim Creat Clear Calc 34.91, Est GFR (MDRD) Af Amer 40 L, Est GFR (MDRD) Non-Af 33 L, BUN/Creatinine Ratio 13.5, Glucose 123 H, Calcium 8.7, Troponin I < 0.015 12/29/19 14:10: Lactic Acid 1.5 12/29/19 14:20: COVID-19 (BROWN) Not Detected 12/29/19 14:43: Specimen Type ART, Sample Site R Brach, pH 7.30 L, Bicarbonate Actual 30.5 H, Total CO2 32, Base Excess 4 H, O2 Saturation 96, ABG pCO2 61.9 H, ABG pO2 95 12/29/19 17:10: Potassium 6.9 H* 12/29/19 17:14: POC Glucose 105 12/29/19 20:59: POC Glucose 126 H 12/29/19 22:10: Sodium 135 L, Potassium 5.7 H, Chloride 100, Carbon Dioxide 32.0, Anion Gap 3 L, BUN 19 H, Creatinine 1.77 H, Estim Creat Clear Calc 42.40, Est GFR (MDRD) Af Amer 50 L, Est GFR (MDRD) Non-Af 42 L, BUN/Creatinine Ratio 10.7, Glucose 147 H, Calcium 8.3 L 12/30/19 04:45: WBC 7.3, RBC 3.81 L, Hgb 9.9 L, Hct 33.8 L, MCV 88.7, MCH 26.0 L, MCHC 29.3 L, RDW Std Deviation 61.4 H, RDW Coeff of Janiya 18.8 H, Plt Count 198, MPV 9.0, Immature Gran % (Auto) 0.400, Neut % (Auto) 68.4, Lymph % (Auto) 14.3 L, [place] % (Auto) 14.6 H, Eos % (Auto) 2.0, Baso % (Auto) 0.3, Absolute Neuts (auto) 5.0, Absolute Lymphs (auto) 1.05, Nucleated RBC % 0 12/30/19 04:45: PT 28.2 H, INR 2.7 12/30/19 04:45: Sodium 133 L, Potassium 5.6 H, Chloride 96 L, Carbon Dioxide 34.0 H, Anion Gap 3 L, BUN 22 H, Creatinine 1.94 H, Estim Creat Clear Calc 38.69, Est GFR (MDRD) Af Amer 45 L, Est GFR (MDRD) Non-Af 38 L, BUN/Creatinine Ratio 11.3, Glucose 108 H, Calcium 8.2 L, Phosphorus 3.6, Magnesium 2.3, Total Bilirubin 0.90, AST 22, ALT 24, Alkaline Phosphatase 149 H, Total Protein 6.4, Albumin 2.9 L, Globulin 3.5, Albumin/Globulin Ratio 0.8 L Current Medications Acetaminophen (Tylenol) 650 mg PO Q6H PRN PRN PRN Reason: Pain Score 1-10/Temp > 100.7 F Amiodarone HCl (Cordarone) 200 mg PO BID [facility] Last Admin: 12/29/19 21:01 Dose: 200 mg Documented by: Atorvastatin Calcium (Lipitor) 20 mg PO QHS [facility] Last Admin: 12/29/19 21:02 Dose: 20 mg Documented by: Docusate Sodium (Colace) 100 mg PO DAILY PRN PRN PRN Reason: STOOL SOFTNER Furosemide (Lasix) 80 mg PO BID@1000,1800 [facility] Last Admin: 12/29/19 21:01 Dose: 80 mg Documented by: Heparin Sodium (Porcine) () 2,500 units IV UD PRN PRN Reason: Dialysis Cath Heparin Flush Hydromorphone HCl (Dilaudid Inj) 0.5 mg IV Q4H PRN PRN PRN Reason: Pain Score 6-10/10 Insulin Glargine (Lantus (Bkc)) 15 units SC BREAKFAST [facility] Insulin Glargine (Lantus (Bkc)) 15 units SC QHS [facility] Last Admin: 12/29/19 21:02 Dose: 15 u Documented by: Insulin Human Lispro (Humalog Kwikpen (Bkc)) 0 unit SC Q6 [facility]; Protocol Last Admin: 12/29/19 21:02 Dose: Not Given Documented by: Ondansetron HCl (Zofran) 4 mg IV Q8H PRN PRN PRN Reason: NAUSEA/VOMITING Sodium Chloride () 10 ml IV UD PRN PRN Reason: Dialysis Catheter Flush Sodium Chloride () 10 - 40 ml IV UD PRN PRN Reason: SALINE FLUSH Tamsulosin HCl (Flomax) 0.4 mg PO QHS [facility] Last Admin: 12/29/19 21:01 Dose: 0.4 mg Documented by: Warfarin Sodium (Jantoven) 3 mg PO SuMoTuWeFDarrena@1700 DANIEL; Protocol Last Admin: 12/29/19 21:01 Dose: 3 mg Documented by: Warfarin Sodium (Jantoven) 5 mg PO Th@1700 DANIEL; Protocol STROKE Vital Signs/Narrative: Vital Signs Temp Pulse Resp BP Pulse Ox 12/30/19 06:00 55 L 17 109/54 L 98 12/30/19 05:00 62 22 H 104/39 L 99 12/30/19 04:00 97.9 F 55 L 18 109/55 L 99 12/30/19 03:31 98 Medical Necessity - Tobacco Use Smoking Status: Former smoker Assessment/Plan All Active Problems (Last Reviewed 12/29/19 @ 16:[address] Christine Thorne, DO) Hyperkalemia (Acute) MOUNA (acute kidney injury) (Acute) Acute on chronic congestive heart failure (Acute) Supratherapeutic INR (Acute) Inpatient E&M: 88255 Subs Hosp L2
[2019-12-30 08:15] LABS: Bedside Glucose 105 mg/dL (70-110)
[2019-12-30] MEDS: Furosemide 80 MG Tablet PO ×2 (08:54→17:16)
[2019-12-30] MEDS: Amiodarone 200 MG Tablet PO (08:54)
--- NOTE | 2019-12-30 11:07 | CASEMGMT ---
Addendum entered by Eusebia Dong 12/30/19 12:05: Pt is discharged. SW did speak w/[facility] earlier, confirmed he has nursing and PT through them, does not appear he has Palliative through [facility] However. SW confirmed w/pt he plans to go home today. He called who states palliative is through [facility] and not [facility]. SW called [facility], message left, information and order faxed to resume home health with [facility]. SW also faxed clinical information to Palliative care at [facility]. SW spoker w/Shila from [facility] to let her know pt was here and is being discharged today. No further needs, pt home today. STEPHAN Moreno Original Note: SW met w/pt briefly, as it is stated in the chart pt has palliative care. Pt confirms has palliative care referral but it has not started yet. Pt believes the palliative care is through [facility], his home health is also through [facility]. SW explained will call to confirm. SW called [facility], message left for [facility] to call this SW back. SHAWN/CM will continue to follow. STEPHAN Moreno
--- NOTE | 2019-12-30 11:42 | DCINST_ITS ---
- Discharge Diagnoses Current Active Problems: Current Active and Chronic Problems (Last Reviewed 12/29/19 @ 16:[address] Christine Thorne, DO) Hyperkalemia (Acute) MOUNA (acute kidney injury) (Acute) Reason(s) for Visit for Discharge Instructions: Shortness of breath You will use the following diet at home:: Renal (restricted protein/sodium) Your food should be the consistency of: Regular Your liquids should be the consistency of: Regular/Thin Discharge Activity: Return to Normal Activity Additional Instructions: You are strongly advised not to take your oral potassium. He will get repeat blood work done during dialysis on Wednesday. Continue to use your BiPAP at home. Continue with your dialysis as scheduled. Allergies/Adverse Reactions: Allergies albuterol Adverse Reaction (Verified 12/29/19 15:51) increased heart rate increased heart rate. amoxicillin trihydrate [From Augmentin] Adverse Reaction (Verified 12/29/19 13:56) Diarrhea indomethacin [From Indocin] Adverse Reaction (Verified 12/29/19 13:56) Nausea potassium clavulanate [From Augmentin] Adverse Reaction (Verified 12/29/19 13:56) Diarrhea Medications to take at Discharge Atorvastatin Calcium 20 mg PO QHS 04/16/19 Insulin Lispro [Humalog KwikPen] 5 unit SUBCUT LUNCH insuln.pen 04/28/19 Insulin Lispro [Humalog KwikPen] 7 unit SUBCUT BREAKFAST insuln.pen 04/28/19 Amiodarone HCl 200 mg PO BID 08/08/19 Acetaminophen [Tylenol] 625 mg PO Q6H PRN PRN 11/21/19 Docusate Sodium [Colace] 100 mg PO DAILY PRN PRN 11/21/19 Melatonin 3 mg PO QHS PRN 11/21/19 Multivitamin with Minerals [Multiple Vitamin] 1 ea PO DAILY 11/21/19 Warfarin [Coumadin] 3 mg PO SUMOTUWEFRSA 11/21/19 Furosemide [Lasix] 80 mg PO BID@1000,1800 12/29/19 Insulin Glargine [Lantus SoloStar Pen] 15 units SUBCUT BID 12/29/19 Insulin Lispro [Humalog KwikPen] 6 unit SUBCUT DINNER 12/29/19 Insulin Lispro [Humalog KwikPen] See Protocol SUBCUT ACHS 09/18/20 Metoprolol(XL)Succ [Toprol Xl (Beta Rakesh)] 50 mg PO DAILY 12/29/19 Tamsulosin HCl [Flomax] 0.4 mg PO QHS 12/29/19 Warfarin Sodium 5 mg PO TH 12/29/19 Primary Care Physician: Francisco Alcazar MD [Primary Care Provider] - Please follow up with your Primary Care Physician in: within 1-2 weeks Test Results: Test results from this visit will be discussed in further detail at your follow- up appointment, if applicable. Please Follow Up With: Geno Arevalo MD When: as scheduled on in dialysis Proposed Discharge Date: 12/30/19
--- NOTE | 2019-12-30 12:03 | PCM.DC.SUM ---
Discharge Date and Diagnosis - Problem List Patient Problems: Active and Suspected Problems (Last Reviewed 12/29/19 @ 16:[address] Christine Thorne DO) Hyperkalemia (Acute) MOUNA (acute kidney injury) (Acute) Date of Admission: 12/29/19 Date of Discharge: 12/30/19 - Primary Discharge Diagnosis Acute Problems: Active Problems (Last Reviewed 12/29/19 @ 16:[address] Christine Thorne DO) Hyperkalemia (Acute) MOUNA (acute kidney injury) (Acute) Acute on chronic combined respiratory failure Bradycardia Chronic anemia - Secondary Discharge Diagnosis Chronic Problems: Chronic Problems (Last Reviewed 12/29/19 @ 16:[address] Christine Thorne DO) Chronic kidney disease (CKD) (Chronic) CHF (congestive heart failure) (Chronic) Morbid obesity with BMI of 50.0-59.9, adult (Chronic) [facility] current use of anticoagulant (Chronic) History of right and left heart catheterization (Chronic 02/18/98) Done s/p VSD repair Per Dr. Sherif Espinoza @ [facility]: normal coronaries, mildly elevated PA pressures Paroxysmal SVT (supraventricular tachycardia) (Chronic) Atrial fibrillation (Chronic) History of atrial flutter (Chronic) Attempted atrial flutter ablation @ [facility] X 1 in 1997 (unsuccessful), followed by Atrial flutter ablations X [address] Paul at [facility] in Apr and October of 1998 Chronic diastolic congestive heart failure (Chronic) History of patent ductus arteriosus as a child (Chronic) Repaired at age 3 years, done @ [facility] Nonrheumatic tricuspid valve regurgitation (Chronic) Leaflet used for VSD repair in past History of ventricular septal defect repair (Chronic) 1977 (pt approx age 18) using Dacron patch, done at [facility] Hyperlipidemia (Chronic) Hypertension (Chronic) Diabetes mellitus, type II (Chronic) History of radiofrequency ablation procedure for cardiac arrhythmia (Chronic) Attempted atrial flutter ablation @ [facility] X 1 (unsuccessful), followed by Atrial flutter ablations X [address] Paul at [facility] in Apr and October of 1998 Pulmonary hypertension, moderate to severe (Chronic) PASP 69 mmHg in September 2013 LASHAWN (obstructive sleep apnea) (Chronic) Hospital Course and Treatment Imaging Results: Clinical Impression(s) from Imaging Studies Chest X-Ray 12/29/19 14:08 IMPRESSION: Persistent mild degree of CHF with atelectasis/infiltrates at the lung bases although there has been moderate improvement as compared to prior study. Electronically Signed: Fortunato Francisco, at 14:57 EDT , Service support , Operations: None Procedures: None Summary of Care Provided: The patient is a 59 year old M with PMHx of multiple comorbidities including super morbid obesity, sleep apnea, type II DM, paroxysmal atrial fibrillation, pulmonary hypertension who presented to the emergency department with shortness of breath and just not feeling well. He presented to the hospital to have his INR assessed. Whilst in the outpatient, he was feeling poorly and decided to come to the emergency department. His admits that he has not been wearing his BiPAP at night as the machine is broken. He stated that they were having problems finding somebody to write him a new prescription for a new machine. Patient is in the process of establishing with pulmonology in the outpatient. He was found to be bradycardic. ABG done showed mixed picture. His potassium was 7.4. Patient has been taking 40 mEq of potassium 3 times a day at home. His hyperkalemia was treated with calcium gluconate, bicarbonate, sodium and glucose. The case was discussed with nephrology who had patient dialyzed that night. On the day of discharge, patient's repeat potassium was 5.8. He feels much improved. He would get dialysis again prior to discharge. And denied any fever or chills. A prescription was written for him for a new BiPAP machine. Case management were consulted to assist with this. Patient Problems: Active and Suspected Problems (Last Reviewed 12/29/19 @ 16:[address] Christine Thorne, DO) Hyperkalemia (Acute) MOUNA (acute kidney injury) (Acute) Subjective: On the day of discharge, patient seen and examined. Denies any chest pain, dizziness or palpitations. Objective: Physical exam: General: Alert, oriented x3, cooperative, well developed, well nourished, morbidly obese HEENT: Atraumatic, EOMI, Normocephalic, EAC Clear Oral: No Gingival or Mucosal Lesions/ Ulcerations, Dry Mucosa Neck: Supple, No JVD, Negative Carotid Bruits, Negative Hepatojugular Reflux, No Nodes, Trachea Midline, Thyroid Normal Size and Texture Lungs: Clear to auscultation, No rhonchi, No wheeze, No rales, Diminished Cardiovascular: Normal S1, Normal S2, No murmurs, Bradycardic Abdomen: Bowel Sounds Present, Soft, Non Tender, Non-Distended, No Hepato-splenomegaly, Obese - severe Extremities: Bilateral pedal edema +1 Skin: No rashes, Ulcer/ Wound - R LE but healing-dressing and compression garments in placed but removed temporarily for exam Musculoskeletal: No Tenderness to Palpation of Joints or Extremities, No Muscle Wasting, Arthritic Changes Lymphatic: No Cervical, Supraclavicular, or Inguinal Adenopathy Neurological: Cranial nerves II-XII grossly intact, Deep Tendon Reflexes 2+/4 and Symmetrical, Neuro grossly intact, Motor Exam 5/5 strength throughout, Muscle tone normal, Coordination normal Psych/Mental Status: Appropriate, Flat Affect - Physical Exam Vitals/I&O's: Vital Signs Temp Pulse Resp BP Pulse Ox 97.9 F 69 22 H 103/43 L 100 12/30/19 04:00 12/30/19 11:00 12/30/19 11:00 12/30/19 11:00 12/30/19 11:00 Oxygen Flow Rate (L/min) 3 Oxygen Delivery Method Nasal Cannula Weight: 155.4 kg Body Mass Index (BMI) 52.6 Finger Stick Blood Glucose 95 Intake and Output for Last 24 Hours 12/28/19 12/29/19 12/30/19 23:59 23:59 23:59 Intake Total 300.05 / 420.05 180 / 180 Output Total 1999 / 2099 200 / 200 Balance -1699.95 / -1679.95 -20 Microbiology Past 72 Hours 12/29/19 18:45 Urine, Clean Catch Streptococcus pneumoniae Antigen (M - Final 12/29/19 18:45 Urine, Clean Catch Legionella Antigen - Final Laboratory Results 12/29/19 14:10: WBC 8.2, RBC 4.31 L, Hgb 11.0 L, Hct 38.0 L, MCV 88.2, MCH 25.5 L, MCHC 28.9 L, RDW Std Deviation 60.9 H, RDW Coeff of Janiya 18.6 H, Plt Count 230, MPV 8.7, Immature Gran % (Auto) 0.600, Neut % (Auto) 68.5, Lymph % (Auto) 13.6 L, Hemphill % (Auto) 14.6 H, Eos % (Auto) 2.2, Baso % (Auto) 0.5, Absolute Neuts (auto) 5.6, Absolute Lymphs (auto) 1.11, Nucleated RBC % 0 12/29/19 14:10: PT 27.3 H, INR 2.6 12/29/19 14:10: Sodium 134 L, Potassium 7.5 H*, Chloride 103, Carbon Dioxide 30.0, Anion Gap 1 L, BUN 29 H, Creatinine 2.15 H, Estim Creat Clear Calc 34.91, Est GFR (MDRD) Af Amer 40 L, Est GFR (MDRD) Non-Af 33 L, BUN/Creatinine Ratio 13.5, Glucose 123 H, Calcium 8.7, Troponin I < 0.015 12/29/19 14:10: Lactic Acid 1.5 12/29/19 14:20: COVID-19 ([facility]) Not Detected 12/29/19 14:43: Specimen Type ART, Sample Site R Brach, pH 7.30 L, Bicarbonate Actual 30.5 H, Total CO2 32, Base Excess 4 H, O2 Saturation 96, ABG pCO2 61.9 H, ABG pO2 95 12/29/19 17:10: Potassium 6.9 H* 12/29/19 17:14: POC Glucose 105 12/29/19 20:59: POC Glucose 126 H 12/29/19 22:10: Sodium 135 L, Potassium 5.7 H, Chloride 100, Carbon Dioxide 32.0, Anion Gap 3 L, BUN 19 H, Creatinine 1.77 H, Estim Creat Clear Calc 42.40, Est GFR (MDRD) Af Amer 50 L, Est GFR (MDRD) Non-Af 42 L, BUN/Creatinine Ratio 10.7, Glucose 147 H, Calcium 8.3 L 12/30/19 04:45: WBC 7.3, RBC 3.81 L, Hgb 9.9 L, Hct 33.8 L, MCV 88.7, MCH 26.0 L, MCHC 29.3 L, RDW Std Deviation 61.4 H, RDW Coeff of Janiya 18.8 H, Plt Count 198, MPV 9.0, Immature Gran % (Auto) 0.400, Neut % (Auto) 68.4, Lymph % (Auto) 14.3 L, Hemphill % (Auto) 14.6 H, Eos % (Auto) 2.0, Baso % (Auto) 0.3, Absolute Neuts (auto) 5.0, Absolute Lymphs (auto) 1.05, Nucleated RBC % 0 12/30/19 04:45: PT 28.2 H, INR 2.7 12/30/19 04:45: Sodium 133 L, Potassium 5.6 H, Chloride 96 L, Carbon Dioxide 34.0 H, Anion Gap 3 L, BUN 22 H, Creatinine 1.94 H, Estim Creat Clear Calc 38.69, Est GFR (MDRD) Af Amer 45 L, Est GFR (MDRD) Non-Af 38 L, BUN/Creatinine Ratio 11.3, Glucose 108 H, Calcium 8.2 L, Phosphorus 3.6, Magnesium 2.3, Total Bilirubin 0.90, AST 22, ALT 24, Alkaline Phosphatase 149 H, Total Protein 6.4, Albumin 2.9 L, Globulin 3.5, Albumin/Globulin Ratio 0.8 L 12/30/19 08:10: POC Glucose 105 Current Medications Acetaminophen (Tylenol) 650 mg PO Q6H PRN PRN PRN Reason: Pain Score 1-10/Temp > 100.7 F Amiodarone HCl (Cordarone) 200 mg PO BID [facility] Last Admin: 12/30/19 08:54 Dose: 200 mg Documented by: Atorvastatin Calcium (Lipitor) 20 mg PO QHS [facility] Last Admin: 12/29/19 21:02 Dose: 20 mg Documented by: Docusate Sodium (Colace) 100 mg PO DAILY PRN PRN PRN Reason: STOOL SOFTNER Furosemide (Lasix) 80 mg PO BID@1000,1800 [facility] Last Admin: 12/30/19 08:54 Dose: 80 mg Documented by: Heparin Sodium (Porcine) () 2,500 units IV UD PRN PRN Reason: Dialysis Cath Heparin Flush Hydromorphone HCl (Dilaudid Inj) 0.5 mg IV Q4H PRN PRN PRN Reason: Pain Score 6-10/10 Insulin Glargine (Lantus (Bkc)) 15 units SC BREAKFAST [facility] Last Admin: 12/30/19 08:53 Dose: 15 u Documented by: Insulin Glargine (Lantus (Bkc)) 15 units SC QHS [facility] Last Admin: 12/29/19 21:02 Dose: 15 u Documented by: Insulin Human Lispro (Humalog Kwikpen (Bkc)) 0 unit SC Q6 DANIEL; Protocol Last Admin: 12/30/19 08:51 Dose: Not Given Documented by: Ondansetron HCl (Zofran) 4 mg IV Q8H PRN PRN PRN Reason: NAUSEA/VOMITING Sodium Chloride () 10 ml IV UD PRN PRN Reason: Dialysis Catheter Flush Sodium Chloride () 10 - 40 ml IV UD PRN PRN Reason: SALINE FLUSH Tamsulosin HCl (Flomax) 0.4 mg PO QHS [facility] Last Admin: 12/29/19 21:01 Dose: 0.4 mg Documented by: Warfarin Sodium (Jantoven) 3 mg PO SuMoTuWeFrSa@1700 DANIEL; Protocol Last Admin: 12/29/19 21:01 Dose: 3 mg Documented by: Warfarin Sodium (Jantoven) 5 mg PO Th@1700 DANIEL; Protocol Discharge Diet: Carb Control Diet - 1800 calories, Renal Diet Discharge Activity: Return to Normal Activity Home Medications: Medications to take at Discharge Atorvastatin Calcium 20 mg PO QHS 04/16/19 Insulin Lispro [Humalog KwikPen] 5 unit SUBCUT LUNCH insuln.pen 04/28/19 Insulin Lispro [Humalog KwikPen] 7 unit SUBCUT BREAKFAST insuln.pen 04/28/19 Amiodarone HCl 200 mg PO BID 08/08/19 Acetaminophen [Tylenol] 625 mg PO Q6H PRN PRN 11/21/19 Docusate Sodium [Colace] 100 mg PO DAILY PRN PRN 11/21/19 Melatonin 3 mg PO QHS PRN 11/21/19 Multivitamin with Minerals [Multiple Vitamin] 1 ea PO DAILY 11/21/19 Warfarin [Coumadin] 3 mg PO SUMOTUWEFRSA 11/21/19 Furosemide [Lasix] 80 mg PO BID@1000,1800 12/29/19 Insulin Glargine [Lantus SoloStar Pen] 15 units SUBCUT BID 12/29/19 Insulin Lispro [Humalog KwikPen] 6 unit SUBCUT DINNER 12/29/19 Insulin Lispro [Humalog KwikPen] See Protocol SUBCUT ACHS 12/29/19 Metoprolol(XL)Succ [Toprol Xl (Beta Rakesh)] 50 mg PO DAILY 12/29/19 Tamsulosin HCl [Flomax] 0.4 mg PO QHS 12/29/19 Warfarin Sodium 5 mg PO TH 12/29/19 Primary Care Physician: Francisco Alcazar MD [Primary Care Provider] - Please follow up with your Primary Care Physician in: within 1-2 weeks Please Follow Up With: Geno Arevalo MD When: as scheduled on in dialysis Disposition: Home Minutes spent on discharge:: 40 Patient Condition:: Stable Medical Necessity - Tobacco Use Smoking Status: Former smoker Tobacco Use: Non-smoker Meaningful Use Info Meaningful Use Diagnoses (Choose all that apply): None applicable Inpatient E&M: 31645 [facility]
[2019-12-30 12:31] LABS: Bedside Glucose 143 mg/dL (70-110)
--- NOTE | 2019-12-30 15:14 | CASEMGMT ---
Addendum entered by Norbert Payne 12/30/19 15:37: Per Dr. Vuong's DC Summary, script for new Bipap machine. This will need to be ordered through [facility] and cannot be completed on weekend. Call to patient's Zina who stated that Dr. Sheffield contacted Pulmonology for referral and Dr. Soria's office should be calling her with an appointment this week. ROBERTO BURGER encouraged her to contact office on Wednesday for appointment. Also let know, since pt's machine is over 6 years old, he may need repeat sleep study testing done. ROBERTO BURGER also encouraged her to see if [facility] could repair or replace in the interim. states she will call on Wednesday. Chrissie GARRETT Original Note: ROBERTO BURGER Readmission Note Previous Admission: 12/08/19-12/15/19 Diagnosis: CHF DC Disposition: [facility]i Current Admission Diagnosis: Hypoxic/Hypercapnic Respiratory Failure, Hyperkalemia Patient presented to ED from home with SOB and general malaise. Respiratory Acidosis, Potassium 7.4. On Hemodialysis outpatient TTS, will have dialysis today. Per , patient has not been wearing his Bipap @ home, and CO2 on admission was 61.9, pH 7.30. DC PLAN: Home, resumed [facility] on discharge. Chrissie GARRETT
--- NOTE | 2019-12-30 16:06 | CASEMGMT ---
RN CM Note: Readmission Audit Form completed. Chrissie RAGSDALEN RN ACM
--- NOTE | 2019-12-30 17:03 | DIALYSIS ---
3 hour HD completed.UF 3000ML REMOVED. PT stable. See dialysis flow sheet.
[2019-12-30 17:16] LABS: Bedside Glucose 190 mg/dL (70-110)
[2019-12-30] MEDS: Insulin Lispro 100 UNIT/ML INSULN.PEN SC (17:16)
[2019-12-30] MEDS: Heparin 10,000 UNITS/10 ML Vial 2500 UNITS IV (17:51)
--- NOTE | 2020-01-01 13:37 | CASEMGMT ---
Addendum entered by Norbert Payne 01/01/20 13:41: Call to patient-intro role of CM and purpose of RN CM DC call. Patient states he does not have questions re: instructions, medications or f/u. States he is doing well and no concerns @ this time. Reviewed with him that [facility] will be resuming [facility] and he is aware. Chrissie GARRETT Original Note: RN CM DC PHONE CALL DC DATE: 12/30/2019 DC DISPOSITION: Home with [facility] DC DIAGNOSIS: Hyperkalemia LACE/STRATA: 13/3 F/U APPTS MADE PRIOR TO DC: no, weekend discharge Call to [facility] to verify resumption of care. Start of care is scheduled for tomorrow. Chrissie MARSHALLM
== END 2019-12-30 18:20 | disposition home or self-care (01) | DRG 640 ==
LOC: ED 14:36 → ICU 16:15
PROVIDERS: Internal Medicine Nephrology; Admitting Provider Internal Medicine; Emergency Provider Emergency Medicine; PCP Family Medicine; Visit Provider Internal Medicine
DX: E87.5 Hyperkalemia (principal); N18.6 End stage renal disease; J96.21 Acute and chronic respiratory failure with hypoxia; J96.22 Acute and chronic respiratory failure with hypercapnia; I50.33 Acute on chronic diastolic (congestive) heart failure; I13.2 Hypertensive heart and chronic kidney disease with heart failure and with stage 5 chronic kidney disease, or end stage renal disease; Z68.43 Body mass index [BMI] 50.0-59.9, adult; N17.9 Acute kidney failure, unspecified; I47.1 Supraventricular tachycardia; Q25.0 Patent ductus arteriosus; E87.4 Mixed disorder of acid-base balance; E11.22 Type 2 diabetes mellitus with diabetic chronic kidney disease; E66.01 Morbid (severe) obesity due to excess calories; I36.1 Nonrheumatic tricuspid (valve) insufficiency; E78.5 Hyperlipidemia, unspecified; Z99.2 Dependence on renal dialysis; Z79.01 Long term (current) use of anticoagulants; Z79.4 Long term (current) use of insulin; E87.6 Hypokalemia; G47.33 Obstructive sleep apnea (adult) (pediatric); D64.9 Anemia, unspecified; I48.0 Paroxysmal atrial fibrillation; I27.20 Pulmonary hypertension, unspecified; R00.1 Bradycardia, unspecified; Z82.3 Family history of stroke; Z82.49 Family history of ischemic heart disease and other diseases of the circulatory system; Z83.3 Family history of diabetes mellitus; Z87.74 Personal history of (corrected) congenital malformations of heart and circulatory system; Z87.891 Personal history of nicotine dependence; I50.82 Biventricular heart failure
CPT/HCPCS: 36415; 36600; 71045; 80048; 80053; 82803; 82962; 83605; 83735; 84100; 84132; 84484; 85025; 85610; 87449; 87635; 90937; 93005; 94002; 97163; 97165; 97802; 99251; 99285; C9803; J7050; A4216; G0257; G0463; J0610; U0003

== ENCOUNTER 2020-01-22 15:14 | Outpatient (RCR) | payer MEDICARE, SELFPAY ==
[2019-12-29 17:10] VITALS: BMI 52.6
[2020-01-22 17:05] LABS: International Normalized Ratio 2.4; Prothrombin Time (Protime)PT. 25.7 SECONDS (11.7-14.9)
== END 2020-01-22 18:00 | disposition home or self-care (01) ==
LOC: LAB 15:14
PROVIDERS: PCP Family Medicine; Referring Provider Nurse Practitioner Family; Visit Provider Nurse Practitioner Family
DX: I48.91 Unspecified atrial fibrillation (principal); Z79.01 Long term (current) use of anticoagulants; Z86.79 Personal history of other diseases of the circulatory system
CPT/HCPCS: 36415; 85610

== ENCOUNTER 2020-02-23 16:25 | Outpatient (RCR) | payer MEDICARE, SELFPAY ==
[2019-12-29 17:10] VITALS: BMI 52.6
[2020-02-23 17:24] LABS: International Normalized Ratio 3.3; Prothrombin Time (Protime)PT. 33.5 SECONDS (11.7-14.9)
== END 2020-02-23 18:00 | disposition home or self-care (01) ==
LOC: LAB 16:25
PROVIDERS: PCP Family Medicine; Referring Provider Nurse Practitioner Family; Visit Provider Nurse Practitioner Family
DX: I48.91 Unspecified atrial fibrillation (principal); Z79.01 Long term (current) use of anticoagulants; Z86.79 Personal history of other diseases of the circulatory system
CPT/HCPCS: 36415; 85610

== ENCOUNTER 2020-03-20 15:42 | Outpatient (RCR) | payer MEDICARE, SELFPAY ==
[2019-12-29 17:10] VITALS: BMI 52.6
[2020-03-13 17:31] LABS: Prothrombin Time (Protime)PT. 40.9 SECONDS (11.7-14.9)
[2020-03-13 18:24] LABS: International Normalized Ratio 4.3
[2020-03-20 16:39] LABS: Prothrombin Time (Protime)PT. 39.2 SECONDS (11.7-14.9)
[2020-03-20 18:40] LABS: International Normalized Ratio 4.1
== END 2020-03-20 18:00 | disposition home or self-care (01) ==
LOC: LAB 15:42
PROVIDERS: PCP Family Medicine; Referring Provider Nurse Practitioner Family; Visit Provider Nurse Practitioner Family
DX: I48.91 Unspecified atrial fibrillation (principal); Z79.01 Long term (current) use of anticoagulants; Z86.79 Personal history of other diseases of the circulatory system
CPT/HCPCS: 36415; 85610

== ENCOUNTER → 2020-03-21 10:58 | Outpatient (CLI) | payer MEDICARE, SELFPAY ==
[2019-12-29 17:10] VITALS: BMI 52.6
--- NOTE | 2020-03-21 10:59 | VDUE_ITS ---
Reason For Study: Pre op Right Arm Left Arm Right Cephalic Vein at the wrist Left Cephalic Vein at the wrist measures .32 measures .26 x .26 cm. x .35 cm. Right Cephalic Vein in the forearm Left Cephalic Vein in the forearm measures .46 x .38 cm. measures .26 x .27 cm. Right Cephalic Vein below antecub Left Cephalic Vein below antecub measures .37 x .35 cm. measures .34 x .35 cm. Cephalic V in the upper arm is too small to Left Cephalic Vein above antecub image. measures .31 x .31 cm. Right Basilic Vein at the origin Left Cephalic Vein at mid bicep measures .32 measures .65 x .64 cm. x .3 cm. Right Basilic Vein mid bicep measures .56 Left Cephalic Vein at the shoulder x .52 cm. measures .3 x .33 cm. Right Basilic Vein above antecub Basilic vein at origin measures .3 x .28 cm. measures .38 x .38 cm. Basilic vein at bicep measures .36 x .36 cm. Right Basilic Vein below antecub Basilic vein above antecub measures .2 x .2 measures .29 x .24 cm. cm. Right Basilic Vein in the forearm Basilic vein below antecub measures .17 measures .21 x .23 cm. x .16 cm. Right Basilic Vein at the wrist measures .19 Basilic vein in the forearm measures .2 x .22 cm. x .22 cm. Brachial artery .49 x .55 cm. Basilic vein at the wrist measures .17 x .18 Brachial artery 99.7 cm/s. cm. Radial artery .33 x .36 cm. Brachial artery .34 x .36 cm. Radial Artery 84.2 cm/s. Brachial artery 92.1 cm/s. Radial artery .19 x .2 cm. Radial Artery 79.0 cm/s. Interpretation Summary Patent and compressible bilateral upper extremity cephalic and basilic veins is noted. Right upper arm cephalic vein too small to image. Left basilic vein just proximal to the antecubital space small at 0.2 cm. In small throughout the left forearm Bilateral brachial arteries of adequate diameter and flow. Right radial artery normal diameter and flow. Left radial artery small. Ordering Physician: Rony Kingston Performed By: Rubens Hanna RVT and Student ?
== END ==
PROVIDERS: PCP Family Medicine; Referring Provider Surgery; Visit Provider Surgery
DX: Z01.818 Encounter for other preprocedural examination (principal); I13.2 Hypertensive heart and chronic kidney disease with heart failure and with stage 5 chronic kidney disease, or end stage renal disease; N18.5 Chronic kidney disease, stage 5; I50.32 Chronic diastolic (congestive) heart failure; I27.20 Pulmonary hypertension, unspecified; R06.02 Shortness of breath
CPT/HCPCS: 93970

== ENCOUNTER 2020-04-02 05:18 | Day surgery (SDC) | payer MEDICARE, SELFPAY ==
[2020-03-22 13:11] VITALS: BMI 46.5
--- NOTE | 2020-03-27 13:01 | EKG12_ITS ---
Test Reason : PRE OP Blood Pressure : / mmHG Vent. Rate : 055 BPM Atrial Rate : 055 BPM P-R Int : 248 ms QRS Dur : 138 ms QT Int : 462 ms P-R-T Axes : 038 148 096 degrees QTc Int : 441 ms Sinus bradycardia with 1st degree A-V block with Premature supraventricular complexes and with occasi onal Premature ventricular complexes Right bundle branch block Abnormal ECG Confirmed by IDRIS HAMLIN, ADAL ([id number]), newspaper editor managing MARINA BEE ([id number]) on 04/04/2020 9:00:22 AM Referred By: Rony Kingston Confirmed By:ADAL STEINBERG MD
[2020-03-27 13:37] LABS: Hematocrit 38.7 % (40-54); Hemoglobin 11.6 g/dL (13.0-16.5); Mean Corpuscular Hgb 28.3 pg (27.0-32.0); Mean Corpuscular Volume 94.4 fL (80-94); Mean Platelet Vol. 9.2 fl (6.2-12.0); Platelet Count 105 K/mm3 (150-450); RBC Distribution Width CV 18.4 % (11.6-14.6); RBC Distribution Width SD 64.3 fl (35.1-43.9); White Blood Count 4.2 K/mm3 (4.4-11.0)
[2020-03-27 13:57] LABS: Anion Gap 4 (5-15); BUN 40 mg/dL (7-18); BUN/Creat Ratio 8.7 RATIO (10-20); Chloride 105 mmol/L (98-107); Creatinine, Serum 4.62 mg/dL (0.70-1.30); EST Glomerular Filtration Rate 14 mL/min (>60); Est Glom Filt Rate - Afr Amer 17 mL/min (>60); Glucose 108 mg/dL (74-106); Potassium 4.5 mmol/L (3.5-5.1); Sodium Level 139 mmol/L (136-145)
[2020-04-02] VITALS (9 sets, daily range): BP systolic 95–121; BP diastolic 49–67; PULSE 55–58; RESP 18; TEMP 36.2–36.6; O2SAT 95–100; BMI 47.3
[2020-04-02] MEDS: Lactated Ringers 1,000 ML 40 ML IV (06:19)
--- NOTE | 2020-04-02 06:29 | HP.PCM_ITS ---
Problem List (1) Chronic renal failure, stage 5 Status: Chronic History and Physical Date of Admission: 04/02/20 Intake Visit Reasons: Permanant Access/VM 03/15 [facility] Chief Complaint: Discuss fistula Jackscrew Man Required: No Is patient in pain?: No Allergies albuterol Adverse Reaction (Verified 03/22/20 13:12) increased heart rate amoxicillin trihydrate [From Augmentin] Adverse Reaction (Verified 03/22/20 13:12) Diarrhea indomethacin [From Indocin] Adverse Reaction (Verified 03/22/20 13:12) Nausea potassium clavulanate [From Augmentin] Adverse Reaction (Verified 03/22/20 13:12) Diarrhea Medications Atorvastatin Calcium 20 mg PO QHS 04/16/19 [History Confirmed 03/22/20] Insulin Lispro [Humalog KwikPen] 5 unit SC LUNCH insuln.pen 04/28/19 [Rx Confirmed 03/22/20] Insulin Lispro [Humalog KwikPen] 7 unit SC BREAKFAST insuln.pen 04/28/19 [Rx Confirmed 03/22/20] Amiodarone HCl 200 mg PO BID 08/08/19 [History Confirmed 03/22/20] Acetaminophen [Tylenol] 625 mg PO Q6H PRN PRN 11/21/19 [History Confirmed 03/22/20] Docusate Sodium [Colace] 100 mg PO DAILY PRN PRN 11/21/19 [History Confirmed 03/22/20] Melatonin 3 mg PO QHS PRN 11/21/19 [History Confirmed 03/22/20] Multivitamin with Minerals [Multiple Vitamin] 1 ea PO DAILY 11/21/19 [History Confirmed 03/22/20] Warfarin [Coumadin] 3 mg PO SUMOTUWEFRSA 11/21/19 [History Confirmed 03/22/20] Furosemide [Lasix] 80 mg PO BID@1000,1800 12/29/19 [History Confirmed 03/22/20] Insulin Glargine [Lantus SoloStar Pen] 15 units SUBCUT BID 12/29/19 [History Confirmed 03/22/20] Insulin Lispro [Humalog KwikPen] 6 unit SUBCUT DINNER 12/29/19 [History Confirmed 03/22/20] Insulin Lispro [Humalog KwikPen] See Protocol SUBCUT ACHS 12/29/19 [History Confirmed 03/22/20] Metoprolol(XL)Succ [Toprol Xl (Beta Rakesh)] 50 mg PO DAILY 12/29/19 [History Confirmed 03/22/20] Tamsulosin HCl [Flomax] 0.4 mg PO QHS 12/29/19 [History Confirmed 03/22/20] Warfarin Sodium 5 mg PO TH 12/29/19 [History Confirmed 03/22/20] [facility] Medical History 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 current use of anticoagulant (Chronic) Paroxysmal SVT (supraventricular tachycardia) (Chronic) Atrial fibrillation (Chronic) History of atrial flutter (Chronic) Chronic diastolic congestive heart failure (Chronic) History of patent ductus arteriosus as a child (Chronic) Nonrheumatic tricuspid valve regurgitation (Chronic) Hyperlipidemia (Chronic) Hypertension (Chronic) Diabetes mellitus, type II (Chronic) Pulmonary hypertension, moderate to severe (Chronic) LASHAWN (obstructive sleep apnea) (Chronic) History of arm fracture (Chronic) History of paroxysmal supraventricular tachycardia (Inactive) Surgical History History of right and left heart catheterization (Chronic 02/18/98) History of ventricular septal defect repair (Chronic) History of radiofrequency ablation procedure for cardiac arrhythmia (Chronic) Family History Mother , of complications post valve surgery Hypertension Diabetes CVA (cerebral vascular accident) X2 Valvular heart disease Father CVA (cerebral vascular accident) Hypertension Hyperlipidemia Social History (Updated 03/22/20 @ 15:[address] Rony Kingston MD) Smoking Status: Former smoker alcohol intake: current alcohol intake frequency: holidays/special occasions only HPI HPI HPI: SHERRIE GUERRIER, is a 59 M who presents to the office today for surgical consultation regarding creation of an arteriovenous hemodialysis fistula. The patient is right arm dominant. He was urgently hospitalized at the [facility] on December 11, 2019 with severe pulmonary hypertension acute on chronic renal insufficiency atrial fibrillation morbid obesity of sleep obstructive sleep apnea etc. He required urgent replacement of tunneled right IJ hemodialysis catheters. Previously August 2019 I had removed previously placed dialysis catheters. He is now being referred for placement of a arteriovenous hemodialysis fistula. On March 21 had bilateral extremity vein mapping. The patient is referred by regarding surgical creation of ar teriovenous hemodialysis fistula and a written copy of my surgical consult and recommendations will be returned to him. [facility] [address] [place] [address] Saphenous Vein Mapping, Bilat 03/21/20 1106 MR#: [id number]:[id number] Name: SHERRIE GUERRIER [facility] #:[id number] : 1960 59From: Rony Kingston MD Attending Dr: VADIM Ramostatus: REG CLI Ordering Dr: Rony Kingston MDDate: 03/21/20 Location:CVSSex: Admitted: Reason For Study: Pre op Right Arm Left Arm Right Cephalic Vein at the wrist Left Cephalic Vein at the wrist measures .32 measures .26 x .26 cm. x .35 cm. Right Cephalic Vein in the forearm Left Cephalic Vein in the forearm measures .46 x .38 cm. measures .26 x .27 cm. Right Cephalic Vein below antecub Left Cephalic Vein below antecub measures .37 x .35 cm. measures .34 x .35 cm. Cephalic V in the upper arm is too small to Left Cephalic Vein above antecub image. measures .31 x .31 cm. Right Basilic Vein at the origin Left Cephalic Vein at mid bicep measures .32 measures .65 x .64 cm. x .3 cm. Right Basilic Vein mid bicep measures .56 Left Cephalic Vein at the shoulder x .52 cm. measures .3 x .33 cm. Right Basilic Vein above antecub Basilic vein at origin measures .3 x .28 cm. measures .38 x .38 cm. Basilic vein at bicep measures .36 x .36 cm. Right Basilic Vein below antecub Basilic vein above antecub measures .2 x .2 measures .29 x .24 cm. cm. Right Basilic Vein in the forearm Basilic vein below antecub measures .17 measures .21 x .23 cm. x .16 cm. Right Basilic Vein at the wrist measures .19 Basilic vein in the forearm measures .2 x .22 cm. x .22 cm. Brachial artery .49 x .55 cm. Basilic vein at the wrist measures .17 x .18 Brachial artery 99.7 cm/s. cm. Radial artery .33 x .36 cm. Brachial artery .34 x .36 cm. Radial Artery 84.2 cm/s. Brachial artery 92.1 cm/s. Radial artery .19 x .2 cm. Radial Artery 79.0 cm/s. Interpretation Summary Patent and compressible bilateral upper extremity cephalic and basilic veins is noted. Right upper arm cephalic vein too small to image. Left basilic vein just proximal to the antecubital space small at 0.2 cm. In small throughout the left forearm Bilateral brachial arteries of adequate diameter and flow. Right radial artery normal diameter and flow. Left radial artery small. Ordering Physician: Rony Kingston Performed By: Rubens Hanna RVT and Student ? 03/21/20 1312 Date HPI HPI HPI: SHERRIE GUERRIER, is a 59 M who presents to the office today for ROS General General: Yes weight change and fatigue; no appetite, colon cancer, breast cancer or weakness HEENT HEENT: No difficulty swallowing, eye injury, eye surgery, swollen glands or hoarseness Endo Endocrine: Yes diabetes mellitus; no thyroid disease, thyroid cancer, Hair loss, heat intolerance or cold intolerance Skin Skin: No rash or changing moles Breast Breast: No left breast lump, right breast lump, nipple discharge, breast pain, abnormal mammogram, abnormal US or breast enlargement Musc Musculoskeletal: Yes back problems and arthritis; no rheumatoid arthritis, gout or joint pain Cardio Cardiovascular: Yes murmur, heart disease, atrial fibrillation and high blood pressure; no pacemaker, heart attack, heart stent, palpitations, shortness of breat with exertion or chest pain Psych Psychiatric: No depression, anxiety or hearing voices Resp Respiratory: Yes shortness of breath, Yes sleep apnea, No cough, No COPD, No asthma, No emphysema, No wheezing Gastro Gastrointestinal: No abdominal pain, Yes nausea or vomiting, Yes diarrhea, Yes constipation, No blood in stool, No acid reflux, No hemorrhoids, No ulcers, No gallbladder problem, No black,tarry stools [place] Hematologic: Yes blood thinners, No blood disorders, No bleeding, Yes anemia, No blood clots Neuro Neurologic: No system reviewed and no additional complaints, except as docu, No as per HPI, No abnormal walking, No abnormal hearing, No abnormal movements, No abnormal speech, No behavioral changes, No burning sensations, No confusion, No seizure-like activity, No unsteadiness, No dizziness, No localized weakness, No frequent falls, No headache(s), No lack of coordination, No loss of vision, No memory loss, Yes numbness, No other visual disturbances, No radiating pain, No restless legs, No sensory deficit, No fainting, Yes tingling, No tremor(s), No weakness, No other Exam Const General: cooperative, comfortable, no acute distress Nutritional Appearance: obese morbidly obese Other: Patient is in a wheelchair and was examined in that situation [facility] Head: normal to inspection Chest Chest palpation & inspection: normal inspection of the chest Breast Palpation: No nipple discharge Resp Effort & Inspection: normal respiratory effort Auscultation: clear to auscultation bilaterally Cardio Rate: regular rate Rhythm: regular rhythm Heart Sounds: murmur Other: 2/6 systolic ejection murmur GI Palpation: soft Other: Notably overweight, nontender Skin General: no rashes or lesions noted Neuro Cognition: normal cognition Extrem General: no calf tenderness Psych Affect: normal affect Assessment & Plan Problems 1. Stage 5 chronic kidney disease not on chronic dialysis N18.5 Plan 59-year-old gentleman. Chronic renal insufficiency. Atrial fibrillation on chronic anticoagulation. He is supratherapeutic INR. He is working with the [facility] upon managing this. I propose for him a left upper extremity forearm transposition cephalic vein to radial artery arteriovenous hemodialysis fistula creation. The cephalic vein and radial artery appear to be adequate. Because of his body habitus however the cephalic vein will require transposition to a more superficial location. In detail I have discussed with him technique, benefit, risk, alternatives. He has had an opportunity to ask and have questions answered. We will ask him to hold his Coumadin for 3 days preoperatively. He has had an opportunity to ask and have questions answered. He is aware that there are no guarantees of success. We will schedule and try to expedite his care. Copy: Dr. Arevalo and Dr. Francisco Kingston M.D., F.A.C.S. Coding Level of Care Code 47114 Diagnoses Stage 5 chronic kidney disease not on chronic dialysis N18.5 ??Chronic kidney disease stage: stage 5, not on chronic dialysis I have re-examined the patient. There are no clinical changes since date of exam. Procedure Criteria Procedure Type: Elective COVID Risk Discussion: The surgeon/proceduralist and patient have discussed in detail the risk of exposure to and/or potential harm posed by the COVID-19 virus with having a surgery/procedure at this time versus the risk of delaying the surgery/procedure. It is not possible to know either the risk of delaying the surgery or procedure or chance of getting an infection with perfect accuracy, but a joint decision was made between the patient and the surgeon/proceduralist to proceed at this time with the scheduled surgery/procedure as indicated on the consent form.
[2020-04-02 06:31] LABS: Bedside Glucose 120 mg/dL (70-110)
[2020-04-02 07:07] LABS: International Normalized Ratio 1.4
[2020-04-02] MEDS: Heparin Injection (Vial) 5,000 UNIT/ML VIAL 5000 UNIT (07:48)
[2020-04-02] MEDS: Lidocaine 1% (30 ml sdv) 30 ML Vial (07:48)
[2020-04-02] MEDS: Bupivacaine Mpf 0.5% 30 ML VIAL (07:48)
--- NOTE | 2020-04-02 09:13 | PCM.OPRPT ---
Problem List (1) Chronic renal failure, stage 5 Status: Chronic Report of Operation Date of Procedure: 04/02/20 Pre-Operative Diagnosis: Stage V chronic renal failure Post-Operative Diagnosis: Same Surgery/Procedure Performed:: Transposition left forearm cephalic vein to radial artery arteriovenous hemodialysis fistula creation Description of Surgical Findings:: Timeout informed consent was obtained. 59-year-old gentleman was taken to the operating place upon the table underwent general anesthesia the left upper semiwas sterilely prepped and draped clindamycin 900 g given intravenously preoperatively 1% lidocaine mixed 50-50 with 0.5% Marcaine was used as a local anesthetic. 16 cc was used. Local was instilled. Ultrasound mapping had been performed. A longitudinal incision was made directly at the cephalic vein of the left forearm. Sharp and blunt dissection was used to identified side branches which were secured with 4-0 Vicryl ties and hemoclips. Having performed the dissection from the wrist to the antecubital space I then measured the length of the vein. Made a longitudinal incision over the distal radial artery sharp and blunt dissection was used to mobilize that. I then placed a straight tunneled from the wrist to the antecubital space. The vein was ligated distally with hemoclips. At a branch point it was spatulated. Then it was tunneled underneath and it had been marked to assure no twisting. It was irrigated. The patient received 10,000 and's of heparin. Peripheral vascular clamps were placed on the radial artery and then 11 blade was used to make an arteriotomy which was extended with Yin scissors. The sidebranch spatulated portion of the vein was then placed in a end-to-side fashion to the radial artery with a running 7-0 Prolene. Nicely hemostatic anastomosis was achieved. There was good flow noted. Hemostasis intact. The wound was closed with a deep layer of interrupted 3-0 Vicryl. The skin edges approximated with a running septic or 4-0 Monocryl. Steri-Strips Telfa soft roll Kendell wrap is applied. Punch and instrument and needle counts were reported the surgeon to be correct. Blood loss minimal. The hand was viable at the completion. Specimens none. Drains none. Blood loss minimal. Rony Kingston M.D., F.A.C.S. Type of Anesthesia:: General Anesthesiologist: Robert Johnson
--- NOTE | 2020-04-02 09:17 | DCINST_ITS ---
Discharge Diet: Renal Diet Discharge Activity: May Not Drive - for 2-3 days or while taking narcotic pain medications., May Take a Tub Bath - in 5 days. Lifting Restrictions: 5 pounds Keep extremity elevated above heart level: - - Keep arm elevated above the heart level for 3 days. Additional Activity Instructions:: Exercise hand vigorously with a stress ball. Call your doctor if your incision/area has: Continuous Slow Oozing, Sudden Increased Bleeding - apply pressure and call your doctor., Increased Pain/ Swelling, Increased Redness, Foul Smelling Discharge Call your doctor if you observe: Fever of 101 or Higher Suture Line Care: Avoid Pulling/Pushing, Avoid Pinching/Bending Cleanse incision/area with: Keep Dressing Clean & Dry Additional Dressing/Incision Instructions:: You may remove your Kendell wrap dressing in 2 days. You may remove the fluffy gauze dressing at that time as well. Leave your Steri-Strips on for an additional 1 week. Exercise your left hand daily with a stress ball as much as tolerated. Allergies/Adverse Reactions: Allergies albuterol Adverse Reaction (Verified 04/02/20 06:00) increased heart rate increased heart rate. amoxicillin trihydrate [From Augmentin] Adverse Reaction (Verified 04/02/20 06:00) Diarrhea indomethacin [From Indocin] Adverse Reaction (Verified 04/02/20 06:00) Nausea potassium clavulanate [From Augmentin] Adverse Reaction (Verified 04/02/20 06:00) Diarrhea Medications to take at Discharge Atorvastatin Calcium 20 mg PO QHS 04/16/19 Insulin Lispro [Humalog KwikPen] 5 unit SC LUNCH insuln.pen 04/28/19 Insulin Lispro [Humalog KwikPen] 7 unit SC BREAKFAST insuln.pen 04/28/19 Amiodarone HCl 200 mg PO BID 08/08/19 Acetaminophen [Tylenol] 625 mg PO Q6H PRN PRN 11/21/19 Docusate Sodium [Colace] 100 mg PO DAILY PRN PRN 11/21/19 Melatonin 3 mg PO QHS PRN 11/21/19 Multivitamin with Minerals [Multiple Vitamin] 1 ea PO DAILY 11/21/19 Warfarin [Coumadin] 3 mg PO MOTUWETHFR 11/21/19 Furosemide [Lasix] 80 mg PO BID@1000,1800 12/29/19 Insulin Glargine [Lantus SoloStar Pen] 15 units SUBCUT BID 12/29/19 Insulin Lispro [Humalog KwikPen] 6 unit SUBCUT DINNER 12/29/19 Insulin Lispro [Humalog KwikPen] See Protocol SUBCUT ACHS 12/29/19 Metoprolol(XL)Succ [Toprol Xl (Beta Rakesh)] 50 mg PO DAILY 12/29/19 Tamsulosin HCl [Flomax] 0.4 mg PO QHS 12/29/19 Warfarin Sodium 1.5 mg PO SUSA 12/29/19 Calcium Carbonate [Tums] 200 mg PO PRN PRN 03/26/20 Primary Care Physician: Francisco Alcazar MD [Primary Care Provider] - Test Results: Test results from this visit will be discussed in further detail at your follow- up appointment, if applicable. Please Follow Up With: Rony Kingston MD - [phone] When: Call to make an appointment for suture removal and follow up in 10 days.
[2020-04-02 10:21] LABS: Bedside Glucose 135 mg/dL (70-110)
[2020-04-02 13:01] LABS: Prothrombin Time Fingerstick 26.3 SEC (11.9-14.4)
== END 2020-04-02 12:10 | disposition home or self-care (01) ==
LOC: SDC 05:19 → AC 05:19
PROVIDERS: Anesthesiology; PCP Family Medicine; Referring Provider Surgery; Visit Provider Surgery
PROC: (CPT 36821; principal; 2020-04-02 07:15)
DX: I13.0 Hypertensive heart and chronic kidney disease with heart failure and stage 1 through stage 4 chronic kidney disease, or unspecified chronic kidney disease (principal); N18.5 Chronic kidney disease, stage 5; I27.20 Pulmonary hypertension, unspecified; G47.33 Obstructive sleep apnea (adult) (pediatric); I50.32 Chronic diastolic (congestive) heart failure; E11.9 Type 2 diabetes mellitus without complications; E78.5 Hyperlipidemia, unspecified; I48.91 Unspecified atrial fibrillation; E66.01 Morbid (severe) obesity due to excess calories; Z79.01 Long term (current) use of anticoagulants; Z79.4 Long term (current) use of insulin; Z87.891 Personal history of nicotine dependence; Z88.0 Allergy status to penicillin; Z88.1 Allergy status to other antibiotic agents
CPT/HCPCS: 01844; 36821; 36415; 36416; 80048; 82962; 85027; 85610; 87426; 93005; C9803; J7120; J2405

== ENCOUNTER 2020-05-08 13:22 | Outpatient (RCR) | payer MEDICARE, SELFPAY ==
[2020-04-02 06:01] VITALS: BMI 47.3
[2020-04-19 17:28] LABS: International Normalized Ratio 1.3; Prothrombin Time (Protime)PT. 15.8 SECONDS (11.7-14.9)
[2020-05-08 13:51] LABS: International Normalized Ratio 1.7; Prothrombin Time (Protime)PT. 19.7 SECONDS (11.7-14.9)
== END 2020-05-08 18:00 | disposition home or self-care (01) ==
LOC: LAB 13:22
PROVIDERS: PCP Family Medicine; Referring Provider Nurse Practitioner Family; Visit Provider Nurse Practitioner Family
DX: I48.91 Unspecified atrial fibrillation (principal); Z79.01 Long term (current) use of anticoagulants; Z86.79 Personal history of other diseases of the circulatory system
CPT/HCPCS: 36415; 85610

== ENCOUNTER 2020-05-22 13:19 | Outpatient (RCR) | payer MEDICARE, SELFPAY ==
[2020-04-02 06:01] VITALS: BMI 47.3
[2020-05-22 14:05] LABS: International Normalized Ratio 1.9; Prothrombin Time (Protime)PT. 21.2 SECONDS (11.7-14.9)
== END 2020-05-22 18:00 | disposition home or self-care (01) ==
LOC: LAB 13:19
PROVIDERS: PCP Family Medicine; Referring Provider Nurse Practitioner Family; Visit Provider Nurse Practitioner Family
DX: I48.91 Unspecified atrial fibrillation (principal); Z79.01 Long term (current) use of anticoagulants; Z86.79 Personal history of other diseases of the circulatory system
CPT/HCPCS: 36415; 85610

== ENCOUNTER 2020-06-10 21:59 | Observation (INO) | payer MEDICARE, SELFPAY ==
[2020-06-10 22:01] VITALS: BP 113/98; PULSE 36; RESP 20; TEMP 36.1; O2SAT 95; BMI 45.3
--- NOTE | 2020-06-10 22:02 | EKG12_ITS ---
Test Reason : BRADYCARDIA Blood Pressure : / mmHG Vent. Rate : 053 BPM Atrial Rate : 053 BPM P-R Int : 000 ms QRS Dur : 156 ms QT Int : 468 ms P-R-T Axes : 000 143 050 degrees QTc Int : 439 ms Sinus vs Ectopic Atrial Rhythm Right bundle branch block Abnormal ECG Confirmed by IDRIS HAMLIN, ADAL ([id number]), content editor JAVIER GREEN ([id number]) on 06/11/2020 10:51:34 AM Referred By: PENNY Confirmed By:ADAL STEINBERG MD
[2020-06-10] MEDS: Sodium Bicarbonate 8.4% 50 ML Syringe 50 MEQ IV (22:05)
[2020-06-10] MEDS: Calcium Chloride 1 GM/10 ML Syringe IV (22:06)
[2020-06-10 22:09] VITALS: PULSE 58
[2020-06-10 22:13] LABS: Absolute Lymphocyte Count 1.87 X10^3/uL (0.83-4.51); Absolute Neutrophil Count 6.9 X10^3/uL (2.0-7.7); Basophil# 0.04 X10^3/uL; Basophil% 0.4 % (0-1); Eosinophil# 0.28 X10^3/uL; Eosinophils% 2.6 % (0-5); Hematocrit 35.1 % (40-54); Hemoglobin 11.4 g/dL (13.0-16.5); Lymphocyte # 1.87 X10^3/ul (4.0); Lymphocyte % 17.5 % (19-41); Mean Corp Hgb Conc 32.5 g/dL (32-36); Mean Corpuscular Hgb 30.8 pg (27.0-32.0); Mean Corpuscular Volume 94.9 fL (80-94); Mean Platelet Vol. 9.2 fl (6.2-12.0); Monocyte# 1.55 X10^3/uL; Monocyte% 14.5 % (0-10); NRBC Flagged by Analyzer 0 % (0-5); Neutrophil # 6.86 X10^3/uL (2.7-7.7); Neutrophil % 64.1 % (47-70); POSITIVE DIFFERENTIAL YES; Platelet Count 156 K/mm3 (150-450); RBC Distribution Width CV 14.5 % (11.6-14.6); RBC Distribution Width SD 50.4 fl (35.1-43.9); White Blood Count 10.7 K/mm3 (4.4-11.0)
[2020-06-10 22:20] LABS: Differential Indicated SCAN CRITERIA MET
--- NOTE | 2020-06-10 22:22 | RAD_ITS ---
STUDY: X-RAY CHEST REASON FOR EXAM: Male, 60 years old. weakness TECHNIQUE: Single AP portable view of the chest. COMPARISON: 12/29/2019 FINDINGS: Lungs are adequately inflated. Interstitial prominence in the lung bases is likely chronic. No acute airspace disease, consolidation or effusion. Stable right subclavian dual-lumen central venous catheter. There is mild cardiac enlargement. Stable median sternotomy wires. Normal mediastinum and kelsie. Normal visualized pulmonary arteries. Normal visualized aortic arch and descending thoracic aorta. Normal visualized thoracic spine. Normal visualized ribs, clavicles, and shoulders. There is no demonstrated abnormality of the visualized soft tissue structures of the upper abdomen. RAD/Chest 1 View (Portable) IMPRESSION: No acute cardiopulmonary disease. Stable cardiac Electronically Signed: Alan Albarado DO at 22:46 EST Tel , Service support ,
[2020-06-10 22:45] LABS: AST(SGOT) 13 U/L (15-37); Alanine Aminotransfer ALT/SGPT 54 U/L (16-61); Albumin, Serum 3.6 g/dL (3.2-5.0); Alkaline Phosphatase 87 U/L (45-117); Anion Gap 14 (5-15); BUN 70 mg/dL (7-18); BUN/Creat Ratio 8.2 RATIO (10-20); Calcium,Total 8.5 mg/dL (8.5-10.1); Chloride 95 mmol/L (98-107); Creatinine, Serum 8.56 mg/dL (0.70-1.30); EST Glomerular Filtration Rate 7 mL/min (>60); Est Glom Filt Rate - Afr Amer 8 mL/min (>60); Estimated Creatinine Clearance 8.95 ml/min; Globulin 3.5 g/dL (2.2-4.2); Glucose 158 mg/dL (74-106); Potassium 6.3 mmol/L (3.5-5.1); Protein, Total 7.1 g/dL (6.4-8.2); Sodium Level 132 mmol/L (136-145)
--- NOTE | 2020-06-10 22:57 | ED.VIS.GEN ---
History of Present Illness Chief Complaint: Syncope Narrative: Patient presents with generalized weakness starting earlier today. He is a diabetic he has end-stage renal disease, last dialysis was 2 days ago. He noticed on his home monitor that his heart rate was in the 30s. This has happened in the past with hyperkalemia. He had a near syncopal episode. He has no fever chills cough or congestion. He denies any abdominal pain. Past medical history: Hypertension, hypercholesterolemia, diabetes, end-stage renal disease on hemodialysis Medications: Reviewed Social history: Lives at home. Full code Review of systems: All systems negative except as indicated General: Denies: Fever. Admits to generalized weakness Eyes: Denies: Visual changes - bilaterally ENT: Denies: Rhinorrhea, Sore throat Cardiovascular: Denies: Chest pain. Respiratory: Denies: Dyspnea, Cough Gastrointestinal: Denies: Abdominal pain, Nausea, Vomiting Genitourinary: Denies: Dysuria Musculoskeletal: Denies: Myalgias Skin: Denies: Rash Neurological: Denies: Headache, no focal weakness Psych: Reports: negative Hematologic: Denies: Easy bruising, Easy bleeding Physical exam General: Appears chronically ill Head: Normocephalic, Atraumatic Eyes: Conjunctiva not pale ENT: Moist mucous membranes Neck: Supple, Nontender, No lymphadenopathy Cardiovascular: Irregular bradycardia normal pulses Respiratory: No distress, coarse breath sounds bilaterally. Speaks in full sentences. Abdomen: Soft, Nontender, Nondistended Back: Nontender, Normal Inspection. Negative for: CVA tenderness Extremities: Nontender, No edema Skin: Normal color, No rash Neurological: Alert, Normal Strength, Normal Sensation Psychological: Normal affect Past Medical History - Allergies and Home Meds Allergies/Adverse Reactions: Allergies albuterol Adverse Reaction (Verified 06/10/20 22:04) increased heart rate increased heart rate. amoxicillin trihydrate [From Augmentin] Adverse Reaction (Verified 06/10/20 22:04) Diarrhea indomethacin [From Indocin] Adverse Reaction (Verified 06/10/20 22:04) Nausea potassium clavulanate [From Augmentin] Adverse Reaction (Verified 06/10/20 22:04) Diarrhea Primary Care Physician: Francisco Alcazar MD [Primary Care Provider] - Surgical History: - Smoking Status: Former smoker - Family History Maternal Family History: Family History (Last Reviewed 06/05/20 @ 13:15 by Jess Cobb) Mother Hypertension Diabetes CVA (cerebral vascular accident) Valvular heart disease Father CVA (cerebral vascular accident) Hypertension Hyperlipidemia Family History: Reports: Diabetes, High Cholesterol, Heart Disease, Hypertension, Stroke, - - Mother with history of concurrent valvular heart disease. Paternal Family History: Family History (Last Reviewed 06/05/20 @ 13:15 by Jess Cobb) Mother Hypertension Diabetes CVA (cerebral vascular accident) Valvular heart disease Father CVA (cerebral vascular accident) Hypertension Hyperlipidemia Family History: Reports: High Cholesterol, Heart Disease, Hypertension, Stroke Physical Exam Vital Signs/Narrative: Vital Signs Temp Pulse Resp BP Pulse Ox 06/10/20 22:09 58 L 06/10/20 22:01 96.9 F L 36 L 20 H 113/98 H 95 Diagnostic/Tx/Re-eval - Medical Decision Making Patient is given bicarb and calcium his heart rate does improve to mid 50s. He is found to be hyperkalemic. I discussed with nephrology. Patient will be admitted for dialysis. - Critical Care Time Critical care time (excluding procedures): 30-74 minutes, - - Patient is critically ill, bradycardic, hyperkalemic, requiring ACLS medications and constant monitoring. I also used a time to document, consult with nephrology and medicine. ED Disposition - Plan for ED Patient: Disposition: Acute Care [facility] Diagnosis: Hyperkalemia, Bradycardia Referrals: Francisco Alcazar MD [Primary Care Provider] -
--- NOTE | 2020-06-10 23:01 | PCM.HP.STD ---
Problem List (1) Bradycardia Status: Acute (2) Hyperkalemia Status: Acute (3) Chronic renal failure, stage 5 Status: Chronic (4) Chronic kidney disease (CKD) Status: Chronic Qualifiers: Chronic kidney disease stage: stage 5, not on chronic dialysis Qualified Code(s): N18.5 - Chronic kidney disease, stage 5 (5) Acute on chronic congestive heart failure Status: Chronic Qualifiers: Heart failure type: right-sided Qualified Code(s): I50.813 - Acute on chronic right heart failure (6) CHF (congestive heart failure) Status: Chronic Qualifiers: Heart failure type: diastolic Heart failure chronicity: acute on chronic Qualified Code(s): I50.33 - Acute on chronic diastolic (congestive) heart failure (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 Sherif Espinoza @ [facility]: normal coronaries, mildly elevated PA pressures (9) Paroxysmal SVT (supraventricular tachycardia) Status: Chronic (10) Atrial fibrillation Status: Chronic Qualifiers: Atrial fibrillation type: unspecified Qualified Code(s): I48.91 - Unspecified atrial fibrillation (11) History of atrial flutter Status: Chronic Comment: Attempted atrial flutter ablation @ [facility] X 1 in 1997 (unsuccessful), followed by Atrial flutter ablations X [address] Paul at [facility] in Apr and October of 1998 (12) Chronic diastolic congestive heart failure Status: Chronic (13) History of patent ductus arteriosus as a child Status: Chronic Comment: Repaired at age 3 years, done @ [facility] (14) Nonrheumatic tricuspid valve regurgitation Status: Chronic Comment: Leaflet used for VSD repair in past (15) History of ventricular septal defect repair Status: Chronic Comment: 1977 (pt approx age 18) using Dacron patch, done at [facility] (16) Hyperlipidemia Status: Chronic Qualifiers: Hyperlipidemia type: unspecified Qualified Code(s): E78.5 - Hyperlipidemia, unspecified (17) Hypertension Status: Chronic Qualifiers: Hypertension type: essential hypertension Qualified Code(s): I10 - Essential (primary) hypertension (18) Diabetes mellitus, type II Status: Chronic Qualifiers: Diabetes mellitus retirement insulin use: with population health coach use Diabetes mellitus complication status: with other specified complication Qualified Code(s): E11.69 - Type 2 diabetes mellitus with other specified complication; Z79.4 - intermediate (current) use of insulin (19) History of radiofrequency ablation procedure for cardiac arrhythmia Status: Chronic Comment: Attempted atrial flutter ablation @ [facility] X 1 (unsuccessful), followed by Atrial flutter ablations X [address] Paul at [facility] in Apr and October of 1998 (20) Pulmonary hypertension, moderate to severe Status: Chronic Comment: PASP 69 mmHg in September 2013 (21) LASHAWN (obstructive sleep apnea) Status: Chronic History of Present Illness Date of Admission: 06/10/20 Chief Complaint: Bradycardia The patient is a 60 year old M with a significant history of end-stage renal disease on dialysis; chronic 3 L nasal cannula at home who to the [facility] emergency department with bradycardia. Reportedly his heart rate was in 30s at home and at one point it dipped to 29. He reports a feeling of malaise and short of breath. Further, he had weakness. His symptoms started on the same day of presentation. At the emergency department his potassium was 6.3. His heart rate was in the 30s. Patient was given bicarbonate and calcium. Past Medical History Past Medical History (Chronic Problems): Chronic Problems (Last Reviewed 06/10/20 @ 23:[address] Cj Lawrence MD) Chronic renal failure, stage 5 (Chronic) Chronic kidney disease (CKD) (Chronic) Acute on chronic congestive heart failure (Chronic) CHF (congestive heart failure) (Chronic) intermediate current use of anticoagulant (Chronic) History of right and left heart catheterization (Chronic 02/18/98) Done s/p VSD repair Per Dr. Sherif Espinoza @ [facility]: normal coronaries, mildly elevated PA pressures Paroxysmal SVT (supraventricular tachycardia) (Chronic) Atrial fibrillation (Chronic) History of atrial flutter (Chronic) Attempted atrial flutter ablation @ [facility] X 1 in 1997 (unsuccessful), followed by Atrial flutter ablations X [address] Paul at [facility] in Apr and October of 1998 Chronic diastolic congestive heart failure (Chronic) History of patent ductus arteriosus as a child (Chronic) Repaired at age 3 years, done @ [facility] Nonrheumatic tricuspid valve regurgitation (Chronic) Leaflet used for VSD repair in past History of ventricular septal defect repair (Chronic) 1977 (pt approx age 18) using Dacron patch, done at [facility] Hyperlipidemia (Chronic) Hypertension (Chronic) Diabetes mellitus, type II (Chronic) History of radiofrequency ablation procedure for cardiac arrhythmia (Chronic) Attempted atrial flutter ablation @ [facility] X 1 (unsuccessful), followed by Atrial flutter ablations X [address] Paul at [facility] in Apr and October of 1998 Pulmonary hypertension, moderate to severe (Chronic) PASP 69 mmHg in September 2013 LASHAWN (obstructive sleep apnea) (Chronic) Medical History: Medical History (Last Reviewed 06/11/20 @ 02:[address] Cj Lawrence MD) Problem with dialysis access (Inactive) T82.898A Hyperkalemia (Acute) E87.5 MOUNA (acute kidney injury) (Inactive) N17.9 Chronic renal failure, stage 5 (Chronic) N18.5 Chronic kidney disease (CKD) (Chronic) N18.9 Acute on chronic congestive heart failure (Chronic) I50.9 CHF (congestive heart failure) (Chronic) I50.9 Supratherapeutic INR (Inactive) R79.1 Morbid obesity with BMI of 50.0-59.9, adult (Inactive) E66.01, Z68.43 intermediate current use of anticoagulant (Chronic) Z79.01 Paroxysmal SVT (supraventricular tachycardia) (Chronic) I47.1 Atrial fibrillation (Chronic) I48.91 History of atrial flutter (Chronic) Z86.79 Attempted atrial flutter ablation @ [facility] X 1 in 1997 (unsuccessful), followed by Atrial flutter ablations X [address] Paul at [facility] in Apr and October of 1998 Chronic diastolic congestive heart failure (Chronic) I50.32 History of patent ductus arteriosus as a child (Chronic) Z87.74 Repaired at age 3 years, done @ [facility] Nonrheumatic tricuspid valve regurgitation (Chronic) I36.1 Leaflet used for VSD repair in past Hyperlipidemia (Chronic) E78.5 Hypertension (Chronic) I10 Diabetes mellitus, type II (Chronic) E11.9 Pulmonary hypertension, moderate to severe (Chronic) I27.2 PASP 69 mmHg in September 2013 LASHAWN (obstructive sleep apnea) (Chronic) G47.33 History of arm fracture Z87.81 X2 History of paroxysmal supraventricular tachycardia (Inactive) Z86.79 Allergies albuterol Adverse Reaction (Verified 06/10/20 22:04) increased heart rate increased heart rate. amoxicillin trihydrate [From Augmentin] Adverse Reaction (Verified 06/10/20 22:04) Diarrhea indomethacin [From Indocin] Adverse Reaction (Verified 06/10/20 22:04) Nausea potassium clavulanate [From Augmentin] Adverse Reaction (Verified 06/10/20 22:04) Diarrhea Home Medications: Ambulatory Orders Medication Instructions Recorded Atorvastatin Calcium 20 mg PO QHS 04/16/19 Insulin Lispro [Humalog KwikPen] 5 unit SC LUNCH insuln.pen 04/28/19 Insulin Lispro [Humalog KwikPen] 7 unit SC BREAKFAST insuln.pen 04/28/19 Amiodarone HCl 200 mg PO BID 08/08/19 Acetaminophen [Tylenol] 625 mg PO Q6H PRN PRN 11/21/19 Docusate Sodium [Colace] 100 mg PO DAILY PRN PRN 11/21/19 Melatonin 3 mg PO QHS PRN 11/21/19 Multivitamin with Minerals 1 ea PO DAILY 11/21/19 [Multiple Vitamin] Furosemide [Lasix] 80 mg PO BID@1000,1800 12/29/19 Insulin Glargine [Lantus SoloStar 15 units SC BID 12/29/19 Pen] Insulin Lispro [Humalog KwikPen] 6 unit SC DINNER 12/29/19 Insulin Lispro [Humalog KwikPen] See Protocol SC ACHS 12/29/19 Metoprolol(XL)Succ [Toprol Xl 50 mg PO DAILY 12/29/19 (Beta Rakesh)] Tamsulosin HCl [Flomax] 0.4 mg PO QHS 12/29/19 Calcium Carbonate [Tums] 200 mg PO PRN PRN 03/26/20 Warfarin [Coumadin (PBKC)] 3 mg PO DAILY 06/10/20 Surgical History: Surgical History (Last Reviewed 06/10/20 @ 23:[address] Cj Lawrence MD) History of right and left heart catheterization (Chronic) Onset Date: 02/18/98 Z98.89 Done s/p VSD repair Per Dr. Sherif Espinoza @ [facility]: normal coronaries, mildly elevated PA pressures History of ventricular septal defect repair (Chronic) 1977 (pt approx age 18) using Dacron patch, done at [facility] History of radiofrequency ablation procedure for cardiac arrhythmia (Chronic) Z.890 Attempted atrial flutter ablation @ [facility] X 1 (unsuccessful), followed by Atrial flutter ablations X [address] Paul at [facility] in Apr and October of 1998 history transposition AV Fistula left forearm Onset Date: ~04/02/20 Surgical History: - Psychiatric History: No pertinent psych hx Smoking Status: Former smoker - *Family History Maternal Family History: Family History (Last Reviewed 06/10/20 @ 23:[address] Cj Lawrence MD) Mother Hypertension Diabetes CVA (cerebral vascular accident) Valvular heart disease Father CVA (cerebral vascular accident) Hypertension Hyperlipidemia History Items: Diabetes, High Cholesterol, Heart Disease, Hypertension, Stroke, - - Mother with history of concurrent valvular heart disease. Paternal Family History: Family History (Last Reviewed 06/10/20 @ 23:[address] Cj Lawrence MD) Mother Hypertension Diabetes CVA (cerebral vascular accident) Valvular heart disease Father CVA (cerebral vascular accident) Hypertension Hyperlipidemia History Items: High Cholesterol, Heart Disease, Hypertension, Stroke Review of Systems Constitutional: Reports: Malaise. Denies: Chills, Fever, Weight Change HEENT: Denies: Head Aches, Sinus Congestion, Sinus Drainage Cardiovascular: Denies: Chest Pain, Palpitations Respiratory: Reports: Shortness of Breath. Denies: Cough, Shortness of breath at rest, Sputum production Gastrointestinal: Denies: Abdominal Pain, Nausea, Vomiting Genitourinary: Denies: Dysuria Musculoskeletal: Denies: Joint Pain, Joint Tenderness Skin: Denies: Rash, Wounds Neurological: Denies: Numbness, Tingling, Focal weakness Psychiatric: Denies: Anxiety, Depression, Homicidal Ideations, Suicidal Ideations Hematologic/ Lymphatic: Denies: Easy Bruising, Easy Bleeding VTE Information - Inpt Only VTE Present on Admission: No VTE Mechan Device Prophylaxis: None VTE Pharm Prophylaxis ordered?: Yes Patient Problems: Active and Suspected Problems (Last Reviewed 06/10/20 @ 23:[address] Cj Lawrence MD) Bradycardia (Acute) Hyperkalemia (Acute) - Physical Exam Vitals/I&O's: Vital Signs Temp Pulse Resp BP Pulse Ox 96.9 F L 58 L 20 H 113/98 H 95 06/10/20 22:01 06/10/20 22:09 06/10/20 22:01 06/10/20 22:01 06/10/20 22:01 Oxygen Flow Rate (L/min) 3 Oxygen Delivery Method Nasal Cannula Weight: 139.2 kg Body Mass Index (BMI) 45.3 Finger Stick Blood Glucose 135 General: Alert, Oriented x3, Cooperative HEENT: Atraumatic, PERRLA, EOMI, Normocephalic Neck: Supple, No JVD, Negative Carotid Bruits Lungs: Clear to auscultation, Normal air movement Cardiovascular: Normal S1, Normal S2, No murmurs, Bradycardic Abdomen: Bowel Sounds Present, Soft, Non Tender Extremities: No edema, Capillary Refill Less than 3 Seconds Skin: No rashes, No breakdown Musculoskeletal: No Tenderness to Palpation of Joints or Extremities Neurological: Cranial nerves II-XII grossly intact Psych/Mental Status: Normal Affect, Appropriate Laboratory Results 06/10/20 22:05: WBC 10.7, RBC 3.70 L, Hgb 11.4 L, Hct 35.1 L, MCV 94.9 H, MCH 30.8, MCHC 32.5, RDW Std Deviation 50.4 H, RDW Coeff of Janiya 14.5, Plt Count 156, MPV 9.2, Immature Gran % (Auto) 0.900, Neut % (Auto) 64.1, Lymph % (Auto) 17.5 L, [place] % (Auto) 14.5 H, Eos % (Auto) 2.6, Baso % (Auto) 0.4, Absolute Neuts (auto) 6.9, Absolute Lymphs (auto) 1.87, Nucleated RBC % 0 06/10/20 22:05: Sodium 132 L, Potassium 6.3 H*, Chloride 95 L, Carbon Dioxide 23.0, Anion Gap 14, BUN 70 H, Creatinine 8.56 H*, Estim Creat Clear Calc 8.95, Est GFR (MDRD) Af Amer 8 L, Est GFR (MDRD) Non-Af 7 L, BUN/Creatinine Ratio 8.2 L, Glucose 158 H, Calcium 8.5, Total Bilirubin 0.50, AST 13 L, ALT 54, Alkaline Phosphatase 87, Troponin I < 0.015, Total Protein 7.1, Albumin 3.6, Globulin 3.5, Albumin/Globulin Ratio 1.0 06/10/20 22:05: B-Natriuretic Peptide 178.0 H Assessment/Plan All Active Problems (Last Reviewed 06/10/20 @ 23:[address] Cj Lawrence MD) Bradycardia (Acute) Hyperkalemia (Acute) The patient is a 60 year old M with a significant history of end-stage renal disease on dialysis; chronic 3 L nasal cannula at home who presents emergency department with bradycardia and found to have hyperkalemia. Symptomatic bradycardia Likely secondary to hyperkalemia. Received bicarbonate and calcium chloride at emergency department. ED doc discussed the case with nephrology and patient will be getting emergent dialysis. Inpatient consult to nephrology. Trend BMP. Diabetes mellitus Patient with hyperglycemia on presentation Basal insulin adjusted Hold prandial insulin. Accu-Chek QA CHS with correction scale insulin ordered. Atrial fibrillation Amiodarone continued Hold metoprolol secondary to bradycardia. Check PT/INR. Resume Coumadin and dose based on PT/INR. End-stage renal disease on dialysis Nephrology consult BPH Flomax continued Chronic diastolic heart failure Home oxygen continued Lasix continued. DVT prophylaxis Dose Coumadin based upon PT/INR. OBSV E&M: [id number] Initial observation care L2
[2020-06-10 23:13] VITALS: BP 111/42; PULSE 52; RESP 16; TEMP 36.6; O2SAT 100
[2020-06-11] VITALS (16 sets, daily range): BP systolic 87–117; BP diastolic 33–57; PULSE 37–67; RESP 16–21; TEMP 36.3–36.9; O2SAT 97–100; BMI 44.3
[2020-06-11] MEDS: Calcium Chloride 1 GM/10 ML Syringe IV (00:10)
[2020-06-11] MEDS: CLARIFY ORDER 1 EACH NOTE (04:42)
[2020-06-11] MEDS: Senna/Docusate Sodium 1 Tablet 2 TABLET PO ×2 (05:45→23:07)
[2020-06-11 06:45] LABS: Bedside Glucose 130 mg/dL (70-110)
[2020-06-11 07:39] LABS: Absolute Lymphocyte Count 0.95 X10^3/uL (0.83-4.51); Absolute Neutrophil Count 5.7 X10^3/uL (2.0-7.7); Basophil# 0.03 X10^3/uL; Basophil% 0.4 % (0-1); Eosinophils% 2.5 % (0-5); Hematocrit 34.3 % (40-54); Hemoglobin 11.2 g/dL (13.0-16.5); Lymphocyte # 0.95 X10^3/ul (4.0); Mean Corp Hgb Conc 32.7 g/dL (32-36); Mean Corpuscular Hgb 31.3 pg (27.0-32.0); Mean Corpuscular Volume 95.8 fL (80-94); Mean Platelet Vol. 9.2 fl (6.2-12.0); Monocyte# 0.97 X10^3/uL; Monocyte% 12.3 % (0-10); NRBC Flagged by Analyzer 0 % (0-5); Platelet Count 142 K/mm3 (150-450); RBC Distribution Width CV 14.4 % (11.6-14.6); RBC Distribution Width SD 50.2 fl (35.1-43.9); Red Blood Count 3.58 M/mm3 (4.6-6.2); White Blood Count 7.9 K/mm3 (4.4-11.0)
[2020-06-11 07:56] LABS: Anion Gap 9 (5-15); BUN 45 mg/dL (7-18); BUN/Creat Ratio 7.7 RATIO (10-20); Calcium,Total 9.3 mg/dL (8.5-10.1); Chloride 98 mmol/L (98-107); Creatinine, Serum 5.85 mg/dL (0.70-1.30); EST Glomerular Filtration Rate 11 mL/min (>60); Est Glom Filt Rate - Afr Amer 13 mL/min (>60); Estimated Creatinine Clearance 13.09 ml/min; Glucose 129 mg/dL (74-106); Potassium 4.7 mmol/L (3.5-5.1); Sodium Level 135 mmol/L (136-145)
[2020-06-11 08:26] LABS: International Normalized Ratio 1.5; Prothrombin Time (Protime)PT. 17.7 SECONDS (11.7-14.9)
[2020-06-11] MEDS: Multivitamins,Ther W-Minerals Tablet 1 TABLET PO (08:41)
[2020-06-11] MEDS: Amiodarone 200 MG Tablet PO ×2 (08:41→22:11)
[2020-06-11] MEDS: Nepro with Carbsteady 237 ML Liquid 120 ML PO ×4 (08:42→22:13)
[2020-06-11] MEDS: 0.9% Saline Lock 10 ML Syringe IV (08:45)
[2020-06-11 11:20] LABS: Bedside Glucose 134 mg/dL (70-110)
--- NOTE | 2020-06-11 13:59 | PCM.CONS.R ---
Problem List (1) ESRD (end stage renal disease) on dialysis Status: Acute (2) Hyperkalemia Status: Acute Consultation - Renal 06/11/20 PCP/ Referring MD: Requesting physician: [] Primary care physician: Dr. Francisco Alcazar MD Reason for Consultation:: ESRD - History of Present Illness History of Present Illness: The patient is a 60 year old M Well known to us. ESRD on hemodialysis Wednesday, , Wednesday schedule. Last dialysis was Wednesday. Admitted to the hospital with complaints of generalized weakness, hypotension, bradycardia. Found to have severe hyperkalemia. Was emergently dialyzed last night. Access is IJ tunneled dialysis catheter. Feels okay today. - Allergies Allergies: Allergies albuterol Adverse Reaction (Verified 06/10/20 22:04) increased heart rate increased heart rate. amoxicillin trihydrate [From Augmentin] Adverse Reaction (Verified 06/10/20 22:04) Diarrhea indomethacin [From Indocin] Adverse Reaction (Verified 06/10/20 22:04) Nausea potassium clavulanate [From Augmentin] Adverse Reaction (Verified 06/10/20 22:04) Diarrhea - Current Medications Current Medications: Current Medications Acetaminophen (Acetaminophen 325 Mg Tablet) 650 mg PO Q6H PRN PRN PRN Reason: Pain Score 1-10/Temp > 100.7 F Amiodarone HCl (Amiodarone 200 Mg Tablet) 200 mg PO BID [facility] Last Admin: 06/11/20 08:41 Dose: 200 mg Documented by: Atorvastatin Calcium (Atorvastatin Calcium 20 Mg Tablet) 20 mg PO QHS [facility] Calcium Carbonate (Calcium Carbonate 500 Mg Tablet) 500 mg PO Q4H PRN PRN PRN Reason: HEARTBURN Dextrose (Dextrose 50%-Water 25 Gm/50 Ml Disp.Syrin) 0 gm IV X1 PRN; Protocol PRN Reason: Hypoglycemia Furosemide (Furosemide 80 Mg Tablet) 80 mg PO BID@1000,1800 [facility] Last Admin: 06/11/20 09:53 Dose: Not Given Documented by: Glucagon (Glucagon 1 Mg/Ml Syringe) 1 mg IM .X1 PRN PRN Reason: Hypoglycemia Insulin Glargine (Insulin Glargine 100 Units/Ml Pen) 10 units SC BID [facility] Last Admin: 06/11/20 08:42 Dose: 10 u Documented by: Insulin Human Lispro (Insulin Lispro 100 Unit/Ml Insuln.Pen) 0 unit SC ACHS [facility]; Protocol Last Admin: 06/11/20 11:26 Dose: Not Given Documented by: Melatonin (Melatonin 3 Mg Tablet) 3 mg PO QHS PRN PRN Reason: SLEEP Multivitamins/Minerals (Multivitamins,Ther W-Minerals Tablet) 1 tablet PO DAILY@0800 [facility] Last Admin: 06/11/20 08:41 Dose: 1 tablet Documented by: Ondansetron HCl (Ondansetron 4 Mg/2 Ml Vial) 4 mg IV Q8H PRN PRN PRN Reason: NAUSEA/VOMITING Senna/Docusate Sodium (Senna/Docusate Sodium 1 Tablet) 2 tablet PO BID PRN PRN PRN Reason: Constipation Last Admin: 06/11/20 05:45 Dose: 2 tablet Documented by: Sodium Chloride (0.9% Saline Lock 10 Ml Syringe) 10 - 40 ml IV UD PRN PRN Reason: SALINE FLUSH Last Admin: 06/11/20 08:45 Dose: 10 ml Documented by: Tamsulosin HCl (Tamsulosin Hcl 0.4 Mg Capsule) 0.4 mg PO QHS [facility] - Past Medical History Past Medical History (Chronic Problems): Chronic Problems (Last Reviewed 06/11/20 @ 02:[address] Cj Lawrence MD) Chronic renal failure, stage 5 (Chronic) Chronic kidney disease (CKD) (Chronic) Acute on chronic congestive heart failure (Chronic) CHF (congestive heart failure) (Chronic) [facility] current use of anticoagulant (Chronic) History of right and left heart catheterization (Chronic 02/18/98) Done s/p VSD repair Per Dr. Sherif Espinoza @ [facility]: normal coronaries, mildly elevated PA pressures Paroxysmal SVT (supraventricular tachycardia) (Chronic) Atrial fibrillation (Chronic) History of atrial flutter (Chronic) Attempted atrial flutter ablation @ [facility] X 1 in 1997 (unsuccessful), followed by Atrial flutter ablations X [address] Paul at [facility] in Apr and October of 1998 Chronic diastolic congestive heart failure (Chronic) History of patent ductus arteriosus as a child (Chronic) Repaired at age 3 years, done @ [facility] Nonrheumatic tricuspid valve regurgitation (Chronic) Leaflet used for VSD repair in past History of ventricular septal defect repair (Chronic) 1977 (pt approx age 18) using Dacron patch, done at [facility] Hyperlipidemia (Chronic) Hypertension (Chronic) Diabetes mellitus, type II (Chronic) History of radiofrequency ablation procedure for cardiac arrhythmia (Chronic) Attempted atrial flutter ablation @ [facility] X 1 (unsuccessful), followed by Atrial flutter ablations X [address] Paul at [facility] in Apr and October of 1998 Pulmonary hypertension, moderate to severe (Chronic) PASP 69 mmHg in September 2013 LASHAWN (obstructive sleep apnea) (Chronic) - Past Surgical History Surgical History: - - Social History Smoking Status: Former smoker - Family History Maternal Family History: Family History (Last Reviewed 06/10/20 @ 23:[address] Cj Lawrence MD) Mother Hypertension Diabetes CVA (cerebral vascular accident) Valvular heart disease Father CVA (cerebral vascular accident) Hypertension Hyperlipidemia History Items: Diabetes, High Cholesterol, Heart Disease, Hypertension, Stroke, - - Mother with history of concurrent valvular heart disease. Paternal Family History: Family History (Last Reviewed 06/10/20 @ 23:[address] Cj Lawrence MD) Mother Hypertension Diabetes CVA (cerebral vascular accident) Valvular heart disease Father CVA (cerebral vascular accident) Hypertension Hyperlipidemia History Items: High Cholesterol, Heart Disease, Hypertension, Stroke Review of Systems Constitutional: Denies: Chills, Fever, Weight Change HEENT: Denies: Head Aches, Sinus Congestion, Sinus Drainage Cardiovascular: Denies: Chest Pain, Palpitations Respiratory: Denies: Cough, Shortness of breath at rest, Sputum production Gastrointestinal: Denies: Abdominal Pain, Nausea, Vomiting Genitourinary: Denies: Dysuria Musculoskeletal: Denies: Joint Pain, Joint Tenderness Skin: Denies: Rash, Wounds Neurological: Denies: Numbness, Tingling, Focal weakness Psychiatric: Denies: Anxiety, Depression, Homicidal Ideations, Suicidal Ideations Hematologic/ Lymphatic: Denies: Easy Bruising, Easy Bleeding Patient Problems: Active and Suspected Problems (Last Reviewed 06/11/20 @ 02:[address] Cj Lawrence MD) Bradycardia (Acute) Hyperkalemia (Acute) - Physical Exam Vitals/I&O's: Vital Signs Temp Pulse Resp BP Pulse Ox 98.1 F 56 L 18 92/33 L 97 06/11/20 08:34 06/11/20 08:34 06/11/20 08:34 06/11/20 08:34 06/11/20 08:34 Oxygen Flow Rate (L/min) 3 Oxygen Delivery Method Nasal Cannula Weight: 136.2 kg Body Mass Index (BMI) 44.3 Finger Stick Blood Glucose 135 Intake and Output for Last 24 Hours 06/09/20 06/10/20 06/11/20 23:59 23:59 23:59 Intake Total 360 / 360 Output Total 0 / 0 Balance 360 / 360 General: Alert, Oriented x3, Cooperative HEENT: Atraumatic, PERRLA, EOMI, Normocephalic Neck: Supple, No JVD, Negative Carotid Bruits Lungs: Clear to auscultation, Normal air movement Cardiovascular: Regular rate, No murmurs Abdomen: Bowel Sounds Present, Soft, Non Tender Extremities: No edema, Capillary Refill Less than 3 Seconds Skin: No rashes, No breakdown Musculoskeletal: No Tenderness to Palpation of Joints or Extremities Neurological: Cranial nerves II-XII grossly intact Psych/Mental Status: Normal Affect, Appropriate Laboratory Results 06/10/20 22:05: WBC 10.7, RBC 3.70 L, Hgb 11.4 L, Hct 35.1 L, MCV 94.9 H, MCH 30.8, MCHC 32.5, RDW Std Deviation 50.4 H, RDW Coeff of Janiya 14.5, Plt Count 156, MPV 9.2, Immature Gran % (Auto) 0.900, Neut % (Auto) 64.1, Lymph % (Auto) 17.5 L, Houghton % (Auto) 14.5 H, Eos % (Auto) 2.6, Baso % (Auto) 0.4, Absolute Neuts (auto) 6.9, Absolute Lymphs (auto) 1.87, Nucleated RBC % 0 06/10/20 22:05: Sodium 132 L, Potassium 6.3 H*, Chloride 95 L, Carbon Dioxide 23.0, Anion Gap 14, BUN 70 H, Creatinine 8.56 H*, Estim Creat Clear Calc 8.95, Est GFR (MDRD) Af Amer 8 L, Est GFR (MDRD) Non-Af 7 L, BUN/Creatinine Ratio 8.2 L, Glucose 158 H, Calcium 8.5, Total Bilirubin 0.50, AST 13 L, ALT 54, Alkaline Phosphatase 87, Troponin I < 0.015, Total Protein 7.1, Albumin 3.6, Globulin 3.5, Albumin/Globulin Ratio 1.0 06/10/20 22:05: B-Natriuretic Peptide 178.0 H 06/11/20 06:40: WBC 7.9, RBC 3.58 L, Hgb 11.2 L, Hct 34.3 L, MCV 95.8 H, MCH 31.3, MCHC 32.7, RDW Std Deviation 50.2 H, RDW Coeff of Janiya 14.4, Plt Count 142 L, MPV 9.2, Immature Gran % (Auto) 0.800, Neut % (Auto) 72.0 H, Lymph % (Auto) 12.0 L, Houghton % (Auto) 12.3 H, Eos % (Auto) 2.5, Baso % (Auto) 0.4, Absolute Neuts (auto) 5.7, Absolute Lymphs (auto) 0.95, Nucleated RBC % 0 06/11/20 06:40: Sodium 135 L, Potassium 4.7, Chloride 98, Carbon Dioxide 28.0, Anion Gap 9, BUN 45 H, Creatinine 5.85 H, Estim Creat Clear Calc 13.09, Est GFR (MDRD) Af Amer 13 L, Est GFR (MDRD) Non-Af 11 L, BUN/Creatinine Ratio 7.7 L, Glucose 129 H, Calcium 9.3 06/11/20 06:40: PT 17.7 H, INR 1.5 06/11/20 06:40: POC Glucose 130 H 06/11/20 11:17: POC Glucose 134 H Current Medications Acetaminophen (Acetaminophen 325 Mg Tablet) 650 mg PO Q6H PRN PRN PRN Reason: Pain Score 1-10/Temp > 100.7 F Amiodarone HCl (Amiodarone 200 Mg Tablet) 200 mg PO BID [facility] Last Admin: 06/11/20 08:41 Dose: 200 mg Documented by: Atorvastatin Calcium (Atorvastatin Calcium 20 Mg Tablet) 20 mg PO QHS [facility] Calcium Carbonate (Calcium Carbonate 500 Mg Tablet) 500 mg PO Q4H PRN PRN PRN Reason: HEARTBURN Dextrose (Dextrose 50%-Water 25 Gm/50 Ml Disp.Syrin) 0 gm IV X1 PRN; Protocol PRN Reason: Hypoglycemia Furosemide (Furosemide 80 Mg Tablet) 80 mg PO BID@1000,1800 [facility] Last Admin: 06/11/20 09:53 Dose: Not Given Documented by: Glucagon (Glucagon 1 Mg/Ml Syringe) 1 mg IM .X1 PRN PRN Reason: Hypoglycemia Insulin Glargine (Insulin Glargine 100 Units/Ml Pen) 10 units SC BID [facility] Last Admin: 06/11/20 08:42 Dose: 10 u Documented by: Insulin Human Lispro (Insulin Lispro 100 Unit/Ml Insuln.Pen) 0 unit SC ACHS [facility]; Protocol Last Admin: 06/11/20 11:26 Dose: Not Given Documented by: Melatonin (Melatonin 3 Mg Tablet) 3 mg PO QHS PRN PRN Reason: SLEEP Multivitamins/Minerals (Multivitamins,Ther W-Minerals Tablet) 1 tablet PO DAILY@0800 [facility] Last Admin: 06/11/20 08:41 Dose: 1 tablet Documented by: Ondansetron HCl (Ondansetron 4 Mg/2 Ml Vial) 4 mg IV Q8H PRN PRN PRN Reason: NAUSEA/VOMITING Senna/Docusate Sodium (Senna/Docusate Sodium 1 Tablet) 2 tablet PO BID PRN PRN PRN Reason: Constipation Last Admin: 06/11/20 05:45 Dose: 2 tablet Documented by: Sodium Chloride (0.9% Saline Lock 10 Ml Syringe) 10 - 40 ml IV UD PRN PRN Reason: SALINE FLUSH Last Admin: 06/11/20 08:45 Dose: 10 ml Documented by: Tamsulosin HCl (Tamsulosin Hcl 0.4 Mg Capsule) 0.4 mg PO QHS [facility] Assessment/Plan All Active Problems (Last Reviewed 06/11/20 @ 02:[address] Cj Lawrence MD) Bradycardia (Acute) ESRD (end stage renal disease) on dialysis (Acute) Hyperkalemia (Acute) End-stage renal disease. Dialysis today and continue Wednesday, , Wednesday schedule. Hyperkalemia. Better today. We'll check potassium in dialysis unit once a week.
--- NOTE | 2020-06-11 14:25 | CASEMGMT ---
Per Carleen MEJIA, pt has OP ultrasound scheduled to check fistula maturity today 06/11/20 at 1430. Pt to re-schedule at this time. Angel MEJIA CM
--- NOTE | 2020-06-11 14:52 | PN_ITS ---
<BrianMartha [employer] - Last Filed: 06/11/20 15:04> Patient Problems: Active and Suspected Problems (Last Reviewed 06/11/20 @ 02:[address] Cj arndt MD) Bradycardia (Acute) ESRD (end stage renal disease) on dialysis (Acute) Hyperkalemia (Acute) Subjective: Patient seen and examined. States he feels significantly improved. To undergo dialysis today. Denies new symptoms or complaints. - Physical Exam Vitals/I&O's: Vital Signs Temp Pulse Resp BP Pulse Ox 98.3 F 58 L 18 91/37 L 99 06/11/20 14:32 06/11/20 14:32 06/11/20 14:32 06/11/20 14:32 06/11/20 14:32 Oxygen Flow Rate (L/min) 3 Oxygen Delivery Method Nasal Cannula Weight: 300 lb 4.313 oz Body Mass Index (BMI) 44.3 Finger Stick Blood Glucose 135 Intake and Output for Last 24 Hours 06/09/20 06/10/20 06/11/20 23:59 23:59 23:59 Intake Total 360 / 360 Output Total 0 / 0 Balance 360 / 360 General: Alert, Oriented x3, Cooperative HEENT: Atraumatic, PERRLA, EOMI, Normocephalic Neck: Supple, No JVD, Negative Carotid Bruits Lungs: Clear to auscultation, Normal air movement Cardiovascular: No murmurs, Bradycardic Abdomen: Bowel Sounds Present, Soft, Non Tender, Non-Distended, Obese Extremities: No clubbing, No cyanosis Skin: No rashes, No breakdown Musculoskeletal: No Tenderness to Palpation of Joints or Extremities Neurological: Cranial nerves II-XII grossly intact, Neuro grossly intact Psych/Mental Status: Normal Affect, Appropriate Laboratory Results 06/10/20 22:05: WBC 10.7, RBC 3.70 L, Hgb 11.4 L, Hct 35.1 L, MCV 94.9 H, MCH 30.8, MCHC 32.5, RDW Std Deviation 50.4 H, RDW Coeff of Janiya 14.5, Plt Count 156, MPV 9.2, Immature Gran % (Auto) 0.900, Neut % (Auto) 64.1, Lymph % (Auto) 17.5 L , Maverick % (Auto) 14.5 H, Eos % (Auto) 2.6, Baso % (Auto) 0.4, Absolute Neuts (auto) 6.9, Absolute Lymphs (auto) 1.87, Nucleated RBC % 0 06/10/20 22:05: Sodium 132 L, Potassium 6.3 H*, Chloride 95 L, Carbon Dioxide 23.0, Anion Gap 14, BUN 70 H, Creatinine 8.56 H*, Estim Creat Clear Calc 8.95, Est GFR (MDRD) Af Amer 8 L, Est GFR (MDRD) Non-Af 7 L, BUN/Creatinine Ratio 8.2 L, Glucose 158 H, Calcium 8.5, Total Bilirubin 0.50, AST 13 L, ALT 54, Alkaline Phosphatase 87, Troponin I < 0.015, Total Protein 7.1, Albumin 3.6, Globulin 3.5, Albumin/Globulin Ratio 1.0 06/10/20 22:05: B-Natriuretic Peptide 178.0 H 06/11/20 06:40: WBC 7.9, RBC 3.58 L, Hgb 11.2 L, Hct 34.3 L, MCV 95.8 H, MCH 31.3, MCHC 32.7, RDW Std Deviation 50.2 H, RDW Coeff of Janiya 14.4, Plt Count 142 L, MPV 9.2, Immature Gran % (Auto) 0.800, Neut % (Auto) 72.0 H, Lymph % (Auto) 12.0 L, Maverick % (Auto) 12.3 H, Eos % (Auto) 2.5, Baso % (Auto) 0.4, Absolute Neuts (auto) 5.7, Absolute Lymphs (auto) 0.95, Nucleated RBC % 0 06/11/20 06:40: Sodium 135 L, Potassium 4.7, Chloride 98, Carbon Dioxide 28.0, Anion Gap 9, BUN 45 H, Creatinine 5.85 H, Estim Creat Clear Calc 13.09, Est GFR (MDRD) Af Amer 13 L, Est GFR (MDRD) Non-Af 11 L, BUN/Creatinine Ratio 7.7 L, Glucose 129 H, Calcium 9.3 06/11/20 06:40: PT 17.7 H, INR 1.5 06/11/20 06:40: POC Glucose 130 H 06/11/20 11:17: POC Glucose 134 H Current Medications Acetaminophen (Acetaminophen 325 Mg Tablet) 650 mg PO Q6H PRN PRN PRN Reason: Pain Score 1-10/Temp > 100.7 F Amiodarone HCl (Amiodarone 200 Mg Tablet) 200 mg PO BID [facility] Last Admin: 06/11/20 08:41 Dose: 200 mg Documented by: Atorvastatin Calcium (Atorvastatin Calcium 20 Mg Tablet) 20 mg PO QHS [facility] Calcium Carbonate (Calcium Carbonate 500 Mg Tablet) 500 mg PO Q4H PRN PRN PRN Reason: HEARTBURN Dextrose (Dextrose 50%-Water 25 Gm/50 Ml Disp.Syrin) 0 gm IV X1 PRN; Protocol PRN Reason: Hypoglycemia Furosemide (Furosemide 80 Mg Tablet) 80 mg PO BID@1000,1800 [facility] Last Admin: 06/11/20 09:53 Dose: Not Given Documented by: Glucagon (Glucagon 1 Mg/Ml Syringe) 1 mg IM .X1 PRN PRN Reason: Hypoglycemia Insulin Glargine (Insulin Glargine 100 Units/Ml Pen) 10 units SC BID [facility] Last Admin: 06/11/20 08:42 Dose: 10 u Documented by: Insulin Human Lispro (Insulin Lispro 100 Unit/Ml Insuln.Pen) 0 unit SC [facility]; Protocol Last Admin: 06/11/20 11:26 Dose: Not Given Documented by: Melatonin (Melatonin 3 Mg Tablet) 3 mg PO QHS PRN PRN Reason: SLEEP Multivitamins/Minerals (Multivitamins,Ther W-Minerals Tablet) 1 tablet PO DAILY@0800 [facility] Last Admin: 06/11/20 08:41 Dose: 1 tablet Documented by: Ondansetron HCl (Ondansetron 4 Mg/2 Ml Vial) 4 mg IV Q8H PRN PRN PRN Reason: NAUSEA/VOMITING Senna/Docusate Sodium (Senna/Docusate Sodium 1 Tablet) 2 tablet PO BID PRN PRN PRN Reason: Constipation Last Admin: 06/11/20 05:45 Dose: 2 tablet Documented by: Sodium Chloride (0.9% Saline Lock 10 Ml Syringe) 10 - 40 ml IV UD PRN PRN Reason: SALINE FLUSH Last Admin: 06/11/20 08:45 Dose: 10 ml Documented by: Tamsulosin HCl (Tamsulosin Hcl 0.4 Mg Capsule) 0.4 mg PO QHS [facility] Medical Necessity - Tobacco Use Smoking Status: Former smoker Assessment/Plan All Active Problems (Last Reviewed 06/11/20 @ 02:[address] Cj Lawrence MD) Bradycardia (Acute) ESRD (end stage renal disease) on dialysis (Acute) Hyperkalemia (Acute) 1. Hyperkalemia-given bicarb and calcium in ER. Hyperkalemia resolved. Patient has had a recurrent history of hyperkalemia. Nephrology consulted. Trend BMP. 2. Bradycardia-improved following resolve #1. Beta-jackson on hold. 3. End-stage renal disease on hemodialysis-nephrology consulted, continue dialysis regimen. 4. Paroxysmal atrial fibrillation-on amiodarone, Coumadin. 5. Mild chronic anemia-at baseline. 6. LASHAWN-on CPAP. 7. Chronic heart failure with preserved ejection fraction 8. Hypertension-stable, metoprolol on hold. 9. Hyperlipidemia-continue statin. 10. Type 2 diabetes [id number] with sliding scale insulin. Continue home insulin regimen. 11. Morbid obesity-encouraged diet lifestyle modifications. DVT prophylaxis-Coumadin This patient was seen by LE Long under the supervision of Dr. Vuong. <Geraldine Vuong - Last Filed: 06/11/20 16:51> - Physical Exam Vitals/I&O's: Vital Signs Temp Pulse Resp BP Pulse Ox 98.3 F 56 L 18 91/37 L 99 06/11/20 14:32 06/11/20 14:59 06/11/20 14:32 06/11/20 14:32 06/11/20 14:32 Oxygen Flow Rate (L/min) 3 Oxygen Delivery Method Nasal Cannula Weight: 136.2 kg Body Mass Index (BMI) 44.3 Finger Stick Blood Glucose 135 Intake and Output for Last 24 Hours 06/09/20 06/10/20 06/11/20 23:59 23:59 23:59 Intake Total 360 / 360 Output Total 0 / 0 Balance 360 / 360 Laboratory Results 06/10/20 22:05: WBC 10.7, RBC 3.70 L, Hgb 11.4 L, Hct 35.1 L, MCV 94.9 H, MCH 30.8, MCHC 32.5, RDW Std Deviation 50.4 H, RDW Coeff of Janiya 14.5, Plt Count 156, MPV 9.2, Immature Gran % (Auto) 0.900, Neut % (Auto) 64.1, Lymph % (Auto) 17.5 L , Maverick % (Auto) 14.5 H, Eos % (Auto) 2.6, Baso % (Auto) 0.4, Absolute Neuts (auto) 6.9, Absolute Lymphs (auto) 1.87, Nucleated RBC % 0 06/10/20 22:05: Sodium 132 L, Potassium 6.3 H*, Chloride 95 L, Carbon Dioxide 23.0, Anion Gap 14, BUN 70 H, Creatinine 8.56 H*, Estim Creat Clear Calc 8.95, Est GFR (MDRD) Af Amer 8 L, Est GFR (MDRD) Non-Af 7 L, BUN/Creatinine Ratio 8.2 L, Glucose 158 H, Calcium 8.5, Total Bilirubin 0.50, AST 13 L, ALT 54, Alkaline Phosphatase 87, Troponin I < 0.015, Total Protein 7.1, Albumin 3.6, Globulin 3.5, Albumin/Globulin Ratio 1.0 06/10/20 22:05: B-Natriuretic Peptide 178.0 H 06/11/20 06:40: WBC 7.9, RBC 3.58 L, Hgb 11.2 L, Hct 34.3 L, MCV 95.8 H, MCH 31.3, MCHC 32.7, RDW Std Deviation 50.2 H, RDW Coeff of Janiya 14.4, Plt Count 142 L, MPV 9.2, Immature Gran % (Auto) 0.800, Neut % (Auto) 72.0 H, Lymph % (Auto) 12.0 L, Maverick % (Auto) 12.3 H, Eos % (Auto) 2.5, Baso % (Auto) 0.4, Absolute Neuts (auto) 5.7, Absolute Lymphs (auto) 0.95, Nucleated RBC % 0 06/11/20 06:40: Sodium 135 L, Potassium 4.7, Chloride 98, Carbon Dioxide 28.0, Anion Gap 9, BUN 45 H, Creatinine 5.85 H, Estim Creat Clear Calc 13.09, Est GFR (MDRD) Af Amer 13 L, Est GFR (MDRD) Non-Af 11 L, BUN/Creatinine Ratio 7.7 L, Glucose 129 H, Calcium 9.3 06/11/20 06:40: PT 17.7 H, INR 1.5 06/11/20 06:40: POC Glucose 130 H 06/11/20 11:17: POC Glucose 134 H 06/11/20 16:14: POC Glucose 121 H Current Medications Acetaminophen (Acetaminophen 325 Mg Tablet) 650 mg PO Q6H PRN PRN PRN Reason: Pain Score 1-10/Temp > 100.7 F Amiodarone HCl (Amiodarone 200 Mg Tablet) 200 mg PO BID [facility] Last Admin: 06/11/20 08:41 Dose: 200 mg Documented by: Atorvastatin Calcium (Atorvastatin Calcium 20 Mg Tablet) 20 mg PO QHS [facility] Calcium Carbonate (Calcium Carbonate 500 Mg Tablet) 500 mg PO Q4H PRN PRN PRN Reason: HEARTBURN Dextrose (Dextrose 50%-Water 25 Gm/50 Ml Disp.Syrin) 0 gm IV X1 PRN; Protocol PRN Reason: Hypoglycemia Furosemide (Furosemide 80 Mg Tablet) 80 mg PO BID@1000,1800 [facility] Last Admin: 06/11/20 09:53 Dose: Not Given Documented by: Glucagon (Glucagon 1 Mg/Ml Syringe) 1 mg IM .X1 PRN PRN Reason: Hypoglycemia Insulin Glargine (Insulin Glargine 100 Units/Ml Pen) 10 units SC BID [facility] Last Admin: 06/11/20 08:42 Dose: 10 u Documented by: Insulin Human Lispro (Insulin Lispro 100 Unit/Ml Insuln.Pen) 0 unit SC [facility]; Protocol Last Admin: 06/11/20 16:23 Dose: Not Given Documented by: Melatonin (Melatonin 3 Mg Tablet) 3 mg PO QHS PRN PRN Reason: SLEEP Multivitamins/Minerals (Multivitamins,Ther W-Minerals Tablet) 1 tablet PO DAILY@0800 [facility] Last Admin: 06/11/20 08:41 Dose: 1 tablet Documented by: Ondansetron HCl (Ondansetron 4 Mg/2 Ml Vial) 4 mg IV Q8H PRN PRN PRN Reason: NAUSEA/VOMITING Senna/Docusate Sodium (Senna/Docusate Sodium 1 Tablet) 2 tablet PO BID PRN PRN PRN Reason: Constipation Last Admin: 06/11/20 05:45 Dose: 2 tablet Documented by: Sodium Chloride (0.9% Saline Lock 10 Ml Syringe) 10 - 40 ml IV UD PRN PRN Reason: SALINE FLUSH Last Admin: 06/11/20 08:45 Dose: 10 ml Documented by: Tamsulosin HCl (Tamsulosin Hcl 0.4 Mg Capsule) 0.4 mg PO QHS [facility] Warfarin Sodium (Warfarin 3 Mg Tablet) 3 mg PO DAILY@1700 [facility] Assessment/Plan This patient was seen in conjunction with Martha Torres NP. I have independently interviewed and examined the patient and reviewed pertinent historical, laboratory, and other data. Please refer to her note for patient's presentation, findings, and recommendations. Patient was seen and examined. He feels much improved. Denied any new complaints. His potassium is improved from 6.3 to4.7. No acute events overnight. Vitals were reviewed -stable Physical Exam: Gen: Comfortable, not pale, not jaundiced, alert oriented x3 CVS:HS I +II, regular, no murmurs RESP: Diminished at lung bases, right-sided IJ tunneled dialysis catheter GI: BS present and normal, nontender, no palpable organs EXT: Bilateral trace pedal edema Labs reviewed: ASSESSMENT: 1. Bradycardia 2. Hyperkalemia 3. ESRD on hemodialysis 4. Paroxysmal atrial fibrillation 5. LASHAWN on CPAP 6. CHF with preserved EF 7. Hypertension 8. Hyperlipidemia 9. Type II DM 10. Morbid obesity Meds reviewed Plan: Continue to monitor patient's vitals, continue on home medications Repeat blood work in am Inpatient E&M: [id number] Subs Hosp L2
[2020-06-11 16:21] LABS: Bedside Glucose 121 mg/dL (70-110)
[2020-06-11] MEDS: Furosemide 80 MG Tablet PO (18:43)
[2020-06-11] MEDS: Heparin 10,000 UNITS/10 ML Vial IV (18:44)
--- NOTE | 2020-06-11 19:28 | DIALYSIS ---
hemodialysis completed x 3.5 hrs. Access via right chest tunneled Hd cath. Net UF 1000ml. See HD flowsheet on chart.
[2020-06-11] MEDS: Tamsulosin HCl 0.4 MG Capsule PO (22:11)
[2020-06-11] MEDS: Atorvastatin Calcium 20 MG Tablet PO (22:12)
[2020-06-11 23:05] LABS: Bedside Glucose 132 mg/dL (70-110)
[2020-06-12] VITALS (8 sets, daily range): BP systolic 94–102; BP diastolic 35–52; PULSE 58–62; RESP 16–18; TEMP 36.5–36.8; O2SAT 96–99
[2020-06-12 05:46] LABS: Hematocrit 31.5 % (40-54); Hemoglobin 10.1 g/dL (13.0-16.5); Mean Corp Hgb Conc 32.1 g/dL (32-36); Mean Corpuscular Hgb 30.9 pg (27.0-32.0); Mean Corpuscular Volume 96.3 fL (80-94); Mean Platelet Vol. 9.1 fl (6.2-12.0); Platelet Count 132 K/mm3 (150-450); RBC Distribution Width CV 14.5 % (11.6-14.6); RBC Distribution Width SD 51.5 fl (35.1-43.9); Red Blood Count 3.27 M/mm3 (4.6-6.2); White Blood Count 7.2 K/mm3 (4.4-11.0)
[2020-06-12 05:53] LABS: International Normalized Ratio 1.4; Prothrombin Time (Protime)PT. 16.8 SECONDS (11.7-14.9)
[2020-06-12 06:15] LABS: Anion Gap 9 (5-15); BUN 36 mg/dL (7-18); BUN/Creat Ratio 7.6 RATIO (10-20); Calcium,Total 7.9 mg/dL (8.5-10.1); Chloride 97 mmol/L (98-107); Creatinine, Serum 4.71 mg/dL (0.70-1.30); EST Glomerular Filtration Rate 14 mL/min (>60); Est Glom Filt Rate - Afr Amer 16 mL/min (>60); Estimated Creatinine Clearance 16.26 ml/min; Glucose 118 mg/dL (74-106); Potassium 4.2 mmol/L (3.5-5.1); Sodium Level 134 mmol/L (136-145)
[2020-06-12 06:25] LABS: Bedside Glucose 116 mg/dL (70-110)
[2020-06-12] MEDS: Amiodarone 200 MG Tablet PO (08:52)
[2020-06-12] MEDS: Multivitamins,Ther W-Minerals Tablet 1 TABLET PO (08:52)
[2020-06-12] MEDS: Nepro with Carbsteady 237 ML Liquid 120 ML PO (08:56)
[2020-06-12] MEDS: Furosemide 80 MG Tablet PO (08:59)
--- NOTE | 2020-06-12 10:25 | CASEMGMT ---
ROBERTO BURGER in to discuss MARIA form with pt. RN CM explained MARIA form, pt voiced understanding. pt signed MARIA form and filed in chart. Pt provided with copy of signed MARIA form. Pt had no further questions or concerns at this time.
--- NOTE | 2020-06-12 10:36 | PCM.DC ---
- Discharge Diagnoses Current Active Problems: Current Active and Chronic Problems (Last Reviewed 06/11/20 @ 02:[address] Cj Lawrence MD) Bradycardia (Acute) ESRD (end stage renal disease) on dialysis (Acute) Hyperkalemia (Acute) Chronic renal failure, stage 5 (Chronic) Chronic kidney disease (CKD) (Chronic) Acute on chronic congestive heart failure (Chronic) CHF (congestive heart failure) (Chronic) half-way current use of anticoagulant (Chronic) History of right and left heart catheterization (Chronic 02/18/98) Done s/p VSD repair Per Dr. Sherif Espinoza @ [facility]: normal coronaries, mildly elevated PA pressures Paroxysmal SVT (supraventricular tachycardia) (Chronic) Atrial fibrillation (Chronic) History of atrial flutter (Chronic) Attempted atrial flutter ablation @ [facility] X 1 in 1997 (unsuccessful), followed by Atrial flutter ablations X [address] Paul at [facility] in Apr and October of 1998 Chronic diastolic congestive heart failure (Chronic) History of patent ductus arteriosus as a child (Chronic) Repaired at age 3 years, done @ [facility] Nonrheumatic tricuspid valve regurgitation (Chronic) Leaflet used for VSD repair in past History of ventricular septal defect repair (Chronic) 1977 (pt approx age 18) using Dacron patch, done at [facility] Hyperlipidemia (Chronic) Hypertension (Chronic) Diabetes mellitus, type II (Chronic) History of radiofrequency ablation procedure for cardiac arrhythmia (Chronic) Attempted atrial flutter ablation @ [facility] X 1 (unsuccessful), followed by Atrial flutter ablations X [address] Paul at [facility] in Apr and October of 1998 Pulmonary hypertension, moderate to severe (Chronic) PASP 69 mmHg in September 2013 LASHAWN (obstructive sleep apnea) (Chronic) You will use the following diet at home:: Renal (restricted protein/sodium) Discharge Activity: Return to Normal Activity Call your doctor if you observe: Shortness of breath, Dizziness, Fainting spells, Chest pain Allergies/Adverse Reactions: Allergies albuterol Adverse Reaction (Verified 06/10/20 22:04) increased heart rate increased heart rate. amoxicillin trihydrate [From Augmentin] Adverse Reaction (Verified 06/10/20 22:04) Diarrhea indomethacin [From Indocin] Adverse Reaction (Verified 06/10/20 22:04) Nausea potassium clavulanate [From Augmentin] Adverse Reaction (Verified 06/10/20 22:04) Diarrhea Medications to take at Discharge Atorvastatin Calcium 20 mg PO QHS 04/16/19 Insulin Lispro [Humalog KwikPen] 5 unit SC LUNCH insuln.pen 04/28/19 Insulin Lispro [Humalog KwikPen] 7 unit SC BREAKFAST insuln.pen 04/28/19 Amiodarone HCl 200 mg PO BID 08/08/19 Acetaminophen [Tylenol] 625 mg PO Q6H PRN PRN 11/21/19 Docusate Sodium [Colace] 100 mg PO DAILY PRN PRN 11/21/19 Melatonin 3 mg PO QHS PRN 11/21/19 Multivitamin with Minerals [Multiple Vitamin] 1 ea PO DAILY 11/21/19 Furosemide [Lasix] 80 mg PO BID@1000,1800 12/29/19 Insulin Glargine [Lantus SoloStar Pen] 15 units SC BID 12/29/19 Insulin Lispro [Humalog KwikPen] 6 unit SC DINNER 12/29/19 Insulin Lispro [Humalog KwikPen] See Protocol SC ACHS 12/29/19 Tamsulosin HCl [Flomax] 0.4 mg PO QHS 12/29/19 Calcium Carbonate [Tums] 200 mg PO PRN PRN 03/26/20 Warfarin [Coumadin] 3 mg PO DAILY 06/10/20 Primary Care Physician: Francisco Alcazar MD [Primary Care Provider] - Please follow up with your Primary Care Physician in: 1 Week Test Results: Test results from this visit will be discussed in further detail at your follow-up appointment, if applicable. Please Follow Up With: Geno Arevalo MD When: As scheduled, plan to check potassium during dialysis Please Follow Up With: Bhavin Osborn MD When: As scheduled 06/27/2020 Proposed Discharge Date: 06/12/20
--- NOTE | 2020-06-12 10:53 | PN.RENAL_ITS ---
Patient Problems: Active and Suspected Problems (Last Reviewed 06/11/20 @ 02:[address] Cj Lawrence MD) Bradycardia (Acute) ESRD (end stage renal disease) on dialysis (Acute) Hyperkalemia (Acute) Subjective: no new events - Physical Exam Vitals/I&O's: Vital Signs Temp Pulse Resp BP Pulse Ox 98.0 F 61 18 102/35 L 99 06/12/20 08:44 06/12/20 08:44 06/12/20 08:44 06/12/20 08:44 06/12/20 08:44 Oxygen Flow Rate (L/min) 3 Oxygen Delivery Method Nasal Cannula Weight: 136.2 kg Body Mass Index (BMI) 44.3 Finger Stick Blood Glucose 135 Intake and Output for Last 24 Hours 06/10/20 06/11/20 06/12/20 23:59 23:59 23:59 Intake Total 720 / 720 Output Total 1999 / 1999 Balance -1280 / -1280 General: Alert, Oriented x3, Cooperative HEENT: Atraumatic, PERRLA, EOMI, Normocephalic Neck: Supple, No JVD, Negative Carotid Bruits Lungs: Clear to auscultation, Normal air movement Cardiovascular: Regular rate, No murmurs Abdomen: Bowel Sounds Present, Soft, Non Tender Extremities: No edema, Capillary Refill Less than 3 Seconds Skin: No rashes, No breakdown Musculoskeletal: No Tenderness to Palpation of Joints or Extremities Neurological: Cranial nerves II-XII grossly intact Psych/Mental Status: Normal Affect, Appropriate Laboratory Results 06/11/20 11:17: POC Glucose 134 H 06/11/20 16:14: POC Glucose 121 H 06/11/20 21:54: POC Glucose 132 H 06/12/20 05:24: PT 16.8 H, INR 1.4 06/12/20 05:24: WBC 7.2, RBC 3.27 L, Hgb 10.1 L, Hct 31.5 L, MCV 96.3 H, MCH 30.9, MCHC 32.1, RDW Std Deviation 51.5 H, RDW Coeff of Janiya 14.5, Plt Count 132 L, MPV 9.1 06/12/20 05:24: Sodium 134 L, Potassium 4.2, Chloride 97 L, Carbon Dioxide 28.0, Anion Gap 9, BUN 36 H, Creatinine 4.71 H, Estim Creat Clear Calc 16.26, Est GFR (MDRD) Af Amer 16 L, Est GFR (MDRD) Non-Af 14 L, BUN/Creatinine Ratio 7.6 L, Glucose 118 H, Calcium 7.9 L 06/12/20 06:21: POC Glucose 116 H Current Medications Acetaminophen (Acetaminophen 325 Mg Tablet) 650 mg PO Q6H PRN PRN PRN Reason: Pain Score 1-10/Temp > 100.7 F Amiodarone HCl (Amiodarone 200 Mg Tablet) 200 mg PO BID [facility] Last Admin: 06/12/20 08:52 Dose: 200 mg Documented by: Atorvastatin Calcium (Atorvastatin Calcium 20 Mg Tablet) 20 mg PO QHS [facility] Last Admin: 06/11/20 22:12 Dose: 20 mg Documented by: Calcium Carbonate (Calcium Carbonate 500 Mg Tablet) 500 mg PO Q4H PRN PRN PRN Reason: HEARTBURN Dextrose (Dextrose 50%-Water 25 Gm/50 Ml Disp.Syrin) 0 gm IV X1 PRN; Protocol PRN Reason: Hypoglycemia Furosemide (Furosemide 80 Mg Tablet) 80 mg PO BID@1000,1800 [facility] Last Admin: 06/12/20 08:59 Dose: 80 mg Documented by: Glucagon (Glucagon 1 Mg/Ml Syringe) 1 mg IM .X1 PRN PRN Reason: Hypoglycemia Insulin Glargine (Insulin Glargine 100 Units/Ml Pen) 10 units SC BID [facility] Last Admin: 06/12/20 08:52 Dose: 10 u Documented by: Insulin Human Lispro (Insulin Lispro 100 Unit/Ml Insuln.Pen) 0 unit SC [facility]; Protocol Last Admin: 06/12/20 06:31 Dose: Not Given Documented by: Melatonin (Melatonin 3 Mg Tablet) 3 mg PO QHS PRN PRN Reason: SLEEP Multivitamins/Minerals (Multivitamins,Ther W-Minerals Tablet) 1 tablet PO DAILY@0800 [facility] Last Admin: 06/12/20 08:52 Dose: 1 tablet Documented by: Ondansetron HCl (Ondansetron 4 Mg/2 Ml Vial) 4 mg IV Q8H PRN PRN PRN Reason: NAUSEA/VOMITING Senna/Docusate Sodium (Senna/Docusate Sodium 1 Tablet) 2 tablet PO BID PRN PRN PRN Reason: Constipation Last Admin: 06/11/20 23:07 Dose: 2 tablet Documented by: Sodium Chloride (0.9% Saline Lock 10 Ml Syringe) 10 - 40 ml IV UD PRN PRN Reason: SALINE FLUSH Last Admin: 06/11/20 08:45 Dose: 10 ml Documented by: Tamsulosin HCl (Tamsulosin Hcl 0.4 Mg Capsule) 0.4 mg PO QHS [facility] Last Admin: 06/11/20 22:11 Dose: 0.4 mg Documented by: Warfarin Sodium (Warfarin 3 Mg Tablet) 3 mg PO DAILY@1700 [facility] Last Admin: 06/11/20 18:43 Dose: 3 mg Documented by: Medical Necessity - Tobacco Use Smoking Status: Former smoker Assessment/Plan All Active Problems (Last Reviewed 06/11/20 @ 02:[address] Cj Lawrence MD) Bradycardia (Acute) ESRD (end stage renal disease) on dialysis (Acute) Hyperkalemia (Acute) End-stage renal disease. continue Wednesday, , Wednesday schedule. Hyperkalemia. Better today. We'll check potassium in dialysis unit once a week.
--- NOTE | 2020-06-12 11:01 | PHA.DC.MR ---
Pharmacy Service has performed discharge medication reconciliation for this patient. The patient's discharge medication list was reviewed for discrepancies and discrepancies were resolved. Home Medications Atorvastatin Calcium 20 mg PO QHS 04/16/19 Insulin Lispro [Humalog KwikPen] 5 unit SC LUNCH insuln.pen 04/28/19 Insulin Lispro [Humalog KwikPen] 7 unit SC BREAKFAST insuln.pen 04/28/19 Amiodarone HCl 200 mg PO BID 08/08/19 Acetaminophen [Tylenol] 625 mg PO Q6H PRN PRN 11/21/19 Docusate Sodium [Colace] 100 mg PO DAILY PRN PRN 11/21/19 Melatonin 3 mg PO QHS PRN 11/21/19 Multivitamin with Minerals [Multiple Vitamin] 1 ea PO DAILY 11/21/19 Furosemide [Lasix] 80 mg PO BID@1000,1800 12/29/19 Insulin Glargine [Lantus SoloStar Pen] 15 units SC BID 12/29/19 Insulin Lispro [Humalog KwikPen] 6 unit SC DINNER 12/29/19 Insulin Lispro [Humalog KwikPen] See Protocol SC ACHS 12/29/19 Tamsulosin HCl [Flomax] 0.4 mg PO QHS 12/29/19 Calcium Carbonate [Tums] 200 mg PO PRN PRN 03/26/20 Warfarin [Coumadin] 3 mg PO DAILY 06/10/20
[2020-06-12 11:41] LABS: Bedside Glucose 118 mg/dL (70-110)
--- NOTE | 2020-06-12 12:56 | PCM.DC.SUM ---
<Martha Torres TUFTER OPERATOR - Last Filed: 06/12/20 13:04> Discharge Date and Diagnosis - Problem List Patient Problems: Active and Suspected Problems (Last Reviewed 06/11/20 @ 02:[address] Cj Lawrence MD) Bradycardia (Acute) ESRD (end stage renal disease) on dialysis (Acute) Hyperkalemia (Acute) Date of Admission: 06/10/20 Date of Discharge: 06/12/20 - Primary Discharge Diagnosis Acute Problems: Active Problems (Last Reviewed 06/11/20 @ 02:[address] Cj Lawrence MD) 1. Hyperkalemia. 2. Bradycardia 3. End-stage renal disease on hemodialysis 4. Paroxysmal atrial fibrillation 5. Mild chronic anemia 6. LASHAWN 7. Chronic heart failure with preserved ejection fraction 8. Hypertension 9. Hyperlipidemia 10. Type 2 diabetes mellitus 11. Morbid obesity - Secondary Discharge Diagnosis Chronic Problems: Chronic Problems (Last Reviewed 06/11/20 @ 02:[address] Cj Lawrence MD) Chronic renal failure, stage 5 (Chronic) Chronic kidney disease (CKD) (Chronic) Acute on chronic congestive heart failure (Chronic) CHF (congestive heart failure) (Chronic) senior care current use of anticoagulant (Chronic) History of right and left heart catheterization (Chronic 02/18/98) Done s/p VSD repair Per Dr. Sherif Espinoza @ [facility]: normal coronaries, mildly elevated PA pressures Paroxysmal SVT (supraventricular tachycardia) (Chronic) Atrial fibrillation (Chronic) History of atrial flutter (Chronic) Attempted atrial flutter ablation @ [facility] X 1 in 1997 (unsuccessful), followed by Atrial flutter ablations X [address] Paul at [facility] in Apr and October of 1998 Chronic diastolic congestive heart failure (Chronic) History of patent ductus arteriosus as a child (Chronic) Repaired at age 3 years, done @ [facility] Nonrheumatic tricuspid valve regurgitation (Chronic) Leaflet used for VSD repair in past History of ventricular septal defect repair (Chronic) 1977 (pt approx age 18) using Dacron patch, done at [facility] Hyperlipidemia (Chronic) Hypertension (Chronic) Diabetes mellitus, type II (Chronic) History of radiofrequency ablation procedure for cardiac arrhythmia (Chronic) Attempted atrial flutter ablation @ [facility] X 1 (unsuccessful), followed by Atrial flutter ablations X [address] Paul at [facility] in Apr and October of 1998 Pulmonary hypertension, moderate to severe (Chronic) PASP 69 mmHg in September 2013 LASHAWN (obstructive sleep apnea) (Chronic) Hospital Course and Treatment Imaging Results: Diagnostic Data Chest X-Ray 06/10/20 22:22 IMPRESSION: No acute cardiopulmonary disease. Stable cardiac Electronically Signed: Alan Albarado DO at 22:46 EST Tel , Service support , Dr. Arevalo- Nephrology Operations: None Procedures: Dialysis Summary of Care Provided: The patient is a 60 year old M admitted 06/10/2020 due to dizziness, weakness. 1. Hyperkalemia-given bicarb and calcium in ER. Hyperkalemia resolved. Patient has had a recurrent history of hyperkalemia. Nephrology consulted. Plan for lab draw during dialysis sessions to follow potassium levels. 2. Bradycardia-improved following resolve #1. Beta-jackson discontinued at discharge. Continue amiodarone. 3. End-stage renal disease on hemodialysis-nephrology consulted during admission, continue dialysis regimen. 4. Paroxysmal atrial fibrillation-on amiodarone, Coumadin. INR subtherapeutic. Continue trending INR as outpatient. Additional 2 mg Coumadin x1 given day of discharge. 5. Mild chronic anemia-at baseline. 6. LASHAWN-on CPAP. 7. Chronic heart failure with preserved ejection fraction-echocardiogram November 2019 demonstrated an EF of 55%. Continue home Lasix regimen. 8. Hypertension-stable, metoprolol discontinued. 9. Hyperlipidemia-continue statin. 10. Type 2 diabetes mellitus-Continue home insulin regimen. 11. Morbid obesity-encouraged diet lifestyle modifications. General: Alert, Oriented x3, Cooperative HEENT: Atraumatic, PERRLA, EOMI, Normocephalic Neck: Supple, No JVD, Negative Carotid Bruits Lungs: Clear to auscultation, Normal air movement Cardiovascular: No murmurs, normal rate Abdomen: Bowel Sounds Present, Soft, Non Tender, Non-Distended, Obese Extremities: No clubbing, No cyanosis Skin: No rashes, No breakdown Musculoskeletal: No Tenderness to Palpation of Joints or Extremities Neurological: Cranial nerves II-XII grossly intact, Neuro grossly intact Psych/Mental Status: Normal Affect, Appropriate Patient seen and examined prior to discharge. Physical assessment as noted above. Patient is stable for discharge with follow up recommendations as noted above. This patient was seen by LE Long under the supervision of Dr. Vuong. Patient Problems: Active and Suspected Problems (Last Reviewed 06/11/20 @ 02:[address] Cj Lawrence MD) Bradycardia (Acute) ESRD (end stage renal disease) on dialysis (Acute) Hyperkalemia (Acute) - Physical Exam Vitals/I&O's: Vital Signs Temp Pulse Resp BP Pulse Ox 98.0 F 61 18 102/35 L 99 06/12/20 08:44 06/12/20 08:44 06/12/20 08:44 06/12/20 08:44 06/12/20 08:44 Oxygen Flow Rate (L/min) 3 Oxygen Delivery Method Nasal Cannula Weight: 300 lb 4.313 oz Body Mass Index (BMI) 44.3 Finger Stick Blood Glucose 135 Intake and Output for Last 24 Hours 06/10/20 06/11/20 06/12/20 23:59 23:59 23:59 Intake Total 720 / 720 Output Total 1999 / 1999 Balance -1280 / -1280 Laboratory Results 06/11/20 16:14: POC Glucose 121 H 06/11/20 21:54: POC Glucose 132 H 06/12/20 05:24: PT 16.8 H, INR 1.4 06/12/20 05:24: WBC 7.2, RBC 3.27 L, Hgb 10.1 L, Hct 31.5 L, MCV 96.3 H, MCH 30.9, MCHC 32.1, RDW Std Deviation 51.5 H, RDW Coeff of Janiya 14.5, Plt Count 132 L, MPV 9.1 06/12/20 05:24: Sodium 134 L, Potassium 4.2, Chloride 97 L, Carbon Dioxide 28.0, Anion Gap 9, BUN 36 H, Creatinine 4.71 H, Estim Creat Clear Calc 16.26, Est GFR (MDRD) Af Amer 16 L, Est GFR (MDRD) Non-Af 14 L, BUN/Creatinine Ratio 7.6 L, Glucose 118 H, Calcium 7.9 L 06/12/20 06:21: POC Glucose 116 H 06/12/20 11:33: POC Glucose 118 H Current Medications Acetaminophen (Acetaminophen 325 Mg Tablet) 650 mg PO Q6H PRN PRN PRN Reason: Pain Score 1-10/Temp > 100.7 F Amiodarone HCl (Amiodarone 200 Mg Tablet) 200 mg PO BID [facility] Last Admin: 06/12/20 08:52 Dose: 200 mg Documented by: Atorvastatin Calcium (Atorvastatin Calcium 20 Mg Tablet) 20 mg PO QHS [facility] Last Admin: 06/11/20 22:12 Dose: 20 mg Documented by: Calcium Carbonate (Calcium Carbonate 500 Mg Tablet) 500 mg PO Q4H PRN PRN PRN Reason: HEARTBURN Dextrose (Dextrose 50%-Water 25 Gm/50 Ml Disp.Syrin) 0 gm IV X1 PRN; Protocol PRN Reason: Hypoglycemia Furosemide (Furosemide 80 Mg Tablet) 80 mg PO BID@1000,1800 [facility] Last Admin: 06/12/20 08:59 Dose: 80 mg Documented by: Glucagon (Glucagon 1 Mg/Ml Syringe) 1 mg IM .X1 PRN PRN Reason: Hypoglycemia Insulin Glargine (Insulin Glargine 100 Units/Ml Pen) 10 units SC BID [facility] Last Admin: 06/12/20 08:52 Dose: 10 u Documented by: Insulin Human Lispro (Insulin Lispro 100 Unit/Ml Insuln.Pen) 0 unit SC [facility]; Protocol Last Admin: 06/12/20 11:34 Dose: Not Given Documented by: Melatonin (Melatonin 3 Mg Tablet) 3 mg PO QHS PRN PRN Reason: SLEEP Multivitamins/Minerals (Multivitamins,Ther W-Minerals Tablet) 1 tablet PO DAILY@0800 [facility] Last Admin: 06/12/20 08:52 Dose: 1 tablet Documented by: Ondansetron HCl (Ondansetron 4 Mg/2 Ml Vial) 4 mg IV Q8H PRN PRN PRN Reason: NAUSEA/VOMITING Senna/Docusate Sodium (Senna/Docusate Sodium 1 Tablet) 2 tablet PO BID PRN PRN PRN Reason: Constipation Last Admin: 06/11/20 23:07 Dose: 2 tablet Documented by: Sodium Chloride (0.9% Saline Lock 10 Ml Syringe) 10 - 40 ml IV UD PRN PRN Reason: SALINE FLUSH Last Admin: 06/11/20 08:45 Dose: 10 ml Documented by: Tamsulosin HCl (Tamsulosin Hcl 0.4 Mg Capsule) 0.4 mg PO QHS [facility] Last Admin: 06/11/20 22:11 Dose: 0.4 mg Documented by: Warfarin Sodium (Warfarin 3 Mg Tablet) 3 mg PO DAILY@1700 [facility] Last Admin: 06/11/20 18:43 Dose: 3 mg Documented by: Discharge Diet: Renal Diet Discharge Activity: Return to Normal Activity Call your doctor if you observe: Shortness of breath, Dizziness, Fainting spells, Chest pain Home Medications: Medications to take at Discharge Atorvastatin Calcium 20 mg PO QHS 04/16/19 Insulin Lispro [Humalog KwikPen] 5 unit SC LUNCH insuln.pen 04/28/19 Insulin Lispro [Humalog KwikPen] 7 unit SC BREAKFAST insuln.pen 04/28/19 Amiodarone HCl 200 mg PO BID 08/08/19 Acetaminophen [Tylenol] 625 mg PO Q6H PRN PRN 11/21/19 Docusate Sodium [Colace] 100 mg PO DAILY PRN PRN 11/21/19 Melatonin 3 mg PO QHS PRN 11/21/19 Multivitamin with Minerals [Multiple Vitamin] 1 ea PO DAILY 11/21/19 Furosemide [Lasix] 80 mg PO BID@1000,1800 12/29/19 Insulin Glargine [Lantus SoloStar Pen] 15 units SC BID 12/29/19 Insulin Lispro [Humalog KwikPen] 6 unit SC DINNER 12/29/19 Insulin Lispro [Humalog KwikPen] See Protocol SC ACHS 12/29/19 Tamsulosin HCl [Flomax] 0.4 mg PO QHS 12/29/19 Calcium Carbonate [Tums] 200 mg PO PRN PRN 03/26/20 Warfarin [Coumadin] 3 mg PO DAILY 06/10/20 Primary Care Physician: Francisco Alcazar MD [Primary Care Provider] - Please follow up with your Primary Care Physician in: 1 Week Please Follow Up With: Geno Arevalo MD When: As scheduled, plan to check potassium during dialysis Please Follow Up With: Bhavin Osborn MD When: As scheduled 06/27/2020 Disposition: Home Minutes spent on discharge:: 35 Patient Condition:: Stable Medical Necessity - Tobacco Use Smoking Status: Former smoker Meaningful Use Info Meaningful Use Diagnoses (Choose all that apply): None applicable <[employer],[place] - Last Filed: 06/12/20 16:53> Discharge Date and Diagnosis - Primary Discharge Diagnosis Acute Problems: Active Problems (Last Reviewed 06/11/20 @ 02:[address] Cj Lawrence MD) Bradycardia (Acute) ESRD (end stage renal disease) on dialysis (Acute) Hyperkalemia (Acute) - Secondary Discharge Diagnosis Chronic Problems: Chronic Problems (Last Reviewed 06/11/20 @ 02:[address] Cj Lawrence MD) Chronic renal failure, stage 5 (Chronic) Chronic kidney disease (CKD) (Chronic) Acute on chronic congestive heart failure (Chronic) CHF (congestive heart failure) (Chronic) senior care current use of anticoagulant (Chronic) History of right and left heart catheterization (Chronic 02/18/98) Done s/p VSD repair Per Dr. Sherif Espinoza @ [facility]: normal coronaries, mildly elevated PA pressures Paroxysmal SVT (supraventricular tachycardia) (Chronic) Atrial fibrillation (Chronic) History of atrial flutter (Chronic) Attempted atrial flutter ablation @ [facility] X 1 in 1997 (unsuccessful), followed by Atrial flutter ablations X [address] Paul at [facility] in Apr and October of 1998 Chronic diastolic congestive heart failure (Chronic) History of patent ductus arteriosus as a child (Chronic) Repaired at age 3 years, done @ [facility] Nonrheumatic tricuspid valve regurgitation (Chronic) Leaflet used for VSD repair in past History of ventricular septal defect repair (Chronic) 1977 (pt approx age 18) using Dacron patch, done at [facility] Hyperlipidemia (Chronic) Hypertension (Chronic) Diabetes mellitus, type II (Chronic) History of radiofrequency ablation procedure for cardiac arrhythmia (Chronic) Attempted atrial flutter ablation @ [facility] X 1 (unsuccessful), followed by Atrial flutter ablations X [address] Paul at [facility] in Apr and October of 1998 Pulmonary hypertension, moderate to severe (Chronic) PASP 69 mmHg in September 2013 LASHAWN (obstructive sleep apnea) (Chronic) Hospital Course and Treatment Summary of Care Provided: This patient was seen in conjunction with Martha Torres NP. I have independently interviewed and examined the patient and reviewed pertinent historical, laboratory, and other data. Please refer to her note for patient's presentation, findings, and recommendations. 60-year-old male with past medical history of ESRD on hemodialysis, history of chronic respiratory failure on 3 L of oxygen at home, chronic diastolic CHF who presented to the emergency department was found to be bradycardic with his heart rate in the 30s. Patient was also found to be hyperkalemic with a potassium 6.3. He received bicarbonate and calcium. Repeat blood work showed potassium of 4.7. Patient continued to remain stable. He received an emergent dialysis on the day of admission. He received a second one the next day. Potassium at discharge was 4.2. Patient was seen and examined on the day of discharge, denied any new complaints. No acute events overnight. Vitals were reviewed -stable Physical Exam: Gen: Comfortable, not pale, not jaundiced, alert oriented x3 CVS:HS I +II, regular, no murmurs RESP: Diminished at lung bases, right-sided IJ tunneled dialysis catheter GI: BS present and normal, nontender, no palpable organs EXT: Bilateral trace pedal edema - Physical Exam Vitals/I&O's: Vital Signs Temp Pulse Resp BP Pulse Ox 97.7 F L 62 18 94/52 L 96 06/12/20 13:41 06/12/20 13:41 06/12/20 13:41 06/12/20 13:41 06/12/20 13:41 Oxygen Flow Rate (L/min) 3 Oxygen Delivery Method Room Air Weight: 136.2 kg Body Mass Index (BMI) 44.3 Finger Stick Blood Glucose 135 Intake and Output for Last 24 Hours 06/10/20 06/11/20 06/12/20 23:59 23:59 23:59 Intake Total 720 / 720 Output Total 1999 / 1999 Balance -1280 / -1280 Laboratory Results 06/11/20 21:54: POC Glucose 132 H 06/12/20 05:24: PT 16.8 H, INR 1.4 06/12/20 05:24: WBC 7.2, RBC 3.27 L, Hgb 10.1 L, Hct 31.5 L, MCV 96.3 H, MCH 30.9, MCHC 32.1, RDW Std Deviation 51.5 H, RDW Coeff of Janiya 14.5, Plt Count 132 L, MPV 9.1 06/12/20 05:24: Sodium 134 L, Potassium 4.2, Chloride 97 L, Carbon Dioxide 28.0, Anion Gap 9, BUN 36 H, Creatinine 4.71 H, Estim Creat Clear Calc 16.26, Est GFR (MDRD) Af Amer 16 L, Est GFR (MDRD) Non-Af 14 L, BUN/Creatinine Ratio 7.6 L, Glucose 118 H, Calcium 7.9 L 06/12/20 06:21: POC Glucose 116 H 06/12/20 11:33: POC Glucose 118 H OBSV E&M: [id number] Observation care discharge
[2020-06-12] MEDS: Jantoven 2 MG Tablet PO (13:39)
== END 2020-06-12 10:37 | disposition home or self-care (01) ==
LOC: ED 23:06 → PCU 06-11 07:02
PROVIDERS: Nurse Practitioner Family; Admitting Provider Hospitalist; Emergency Provider Emergency Medicine; PCP Family Medicine; Visit Provider Internal Medicine
DX: E87.5 Hyperkalemia (principal); I48.0 Paroxysmal atrial fibrillation; N18.6 End stage renal disease; R00.1 Bradycardia, unspecified; G47.33 Obstructive sleep apnea (adult) (pediatric); E11.22 Type 2 diabetes mellitus with diabetic chronic kidney disease; I13.2 Hypertensive heart and chronic kidney disease with heart failure and with stage 5 chronic kidney disease, or end stage renal disease; E78.5 Hyperlipidemia, unspecified; I50.32 Chronic diastolic (congestive) heart failure; I47.1 Supraventricular tachycardia; I27.20 Pulmonary hypertension, unspecified; E11.65 Type 2 diabetes mellitus with hyperglycemia; N40.0 Benign prostatic hyperplasia without lower urinary tract symptoms; E66.01 Morbid (severe) obesity due to excess calories; Z99.2 Dependence on renal dialysis; Z87.891 Personal history of nicotine dependence; Z79.899 Other long term (current) drug therapy; Z79.4 Long term (current) use of insulin; Z79.01 Long term (current) use of anticoagulants; Z87.74 Personal history of (corrected) congenital malformations of heart and circulatory system; Z68.41 Body mass index [BMI] 40.0-44.9, adult
CPT/HCPCS: 36415; 71045; 80048; 80053; 82962; 83880; 84484; 85025; 85027; 85610; 90937; 93005; 96374; 96375; 96376; 97802; 99218; 99285; J7030; A4216; G0257; G0378

== ENCOUNTER → 2020-06-28 12:50 | Outpatient (CLI) | payer MEDICARE, SELFPAY ==
[2020-06-11 01:01] VITALS: BMI 44.3
--- NOTE | 2020-06-28 12:53 | AVDS_ITS ---
Reason For Study: Chronic renal vascular stage 5 LEFT Inflow artery, 86.9/44.9 cm/sec. Inflow artery, 560.7/ml/min. Prox Anastomosis, 210.3/84.7 cm/sec. Prox Anastomosis, 495.7 ml/min. Prox Graft, 118.2/50.8 cm/sec. Prox Graft, 688.9 ml/min. Mid Graft, 616.8/326.5 cm/sec. Mid Graft, 1149 ml/min. Distal Graft, 134.5/60.1 cm/sec. Distal Graft, 844.3 ml/min Outflow vein, 73.2/37.6 cm/sec. Outflow vein, 447.5 ml/min. Interpretation Summary Adequate volume flow noted throughout the left forearm arteriovenous fistula Ordering Physician: oRny Kingston Referring Physician: Francisco Alcazar Performed By: Lani Quarles RVT
== END ==
PROVIDERS: PCP Family Medicine; Referring Provider Surgery; Visit Provider Surgery
DX: N18.5 Chronic kidney disease, stage 5 (principal); Z78.9 Other specified health status
CPT/HCPCS: 93990

== ENCOUNTER 2020-07-09 09:07 | Observation (INO) | payer MEDICARE, SELFPAY ==
[2020-07-09] VITALS (10 sets, daily range): BP systolic 98–118; BP diastolic 37–94; PULSE 44–67; RESP 16–22; TEMP 36.4–36.9; O2SAT 96–100; BMI 43.2; BMI 45.3
--- NOTE | 2020-07-09 09:41 | EKG12_ITS ---
Test Reason : WEAKNESS/LOW HR Blood Pressure : / mmHG Vent. Rate : 051 BPM Atrial Rate : 040 BPM P-R Int : 000 ms QRS Dur : 154 ms QT Int : 492 ms P-R-T Axes : 000 149 074 degrees QTc Int : 453 ms Sinus Bradycardia with 1st Degree AV Block Right bundle branch block Abnormal ECG Confirmed by IDRIS HAMLIN, AADL ([id number]), subeditor JAVIER GREEN ([id number]) on 07/11/2020 9:48:39 AM Referred By: RONY Confirmed By:ADAL STEINBERG MD
--- NOTE | 2020-07-09 09:48 | ED.DCSUM_ITS ---
- ER Visit Summary Date of Service: 07/09/20 Chief Complaint: Weakness and low heart rate History of Present Illness: The patient is a 60 M who presents with general weakness and low heart rate that began last night. Patient states that last night he felt like his heart was racing so he took a metoprolol tablet. Patient states that he woke up early this morning noticed his heart rate was low. Patient states he had trouble standing. Patient states he feels weak all over. Patient states nothing makes it better and nothing makes it worse. Patient denies any fevers or chills. Patient denies any chest pain. Patient admits to some mild shortness of breath. Patient also admits to some mild back pain. Patient denies any nausea or vomiting. Physical Examination: Eitel signs are stable except for a bradycardia of 47. Patient is afebrile. Patient is in no acute distress. Oral mucosa is pink and moist. Neck is supple. Trachea is midline. There is no JVD. Heart was regular and bradycardic. Lungs are clear and equal bilaterally. Abdomen is soft. Bowel sounds are normal. There is no tenderness. Cranial nerves II through XII are intact. There are no focal motor or sensory deficits. Extremities are intact. There is no calf tenderness or edema. Test Results: EKG was obtained. On my interpretation, it showed a sinus bradycardia with first-degree AV block with a rate of 51. There is a right bundle branch block pattern noted. There are no acute ST or T wave changes. This was unchanged compared to previous EKG dated 06/10/2020. CBC shows a mild anemia with hemoglobin of 11.2 hematocrit 33.8. Metabolic profile shows a hyponatremia of 129, hyperkalemia of 6.3, BUN of 89, and creatinine of 9.85. Emergency Department Course and Treatment: Patient was given calcium gluconate, insulin, and D 25 for hyperglycemia order set. Case was discussed with the hospitalist. He will admit the patient to his service. He also ordered a COVID-19 antigen. Patient understood and was agreeable with the plan. All questions were answered. Disposition: Admit to hospital Impression: 1. Acute on chronic kidney disease 2. Hyperkalemia This note was generated with [employer] dictation software. It may contain incorrect words, spelling, and punctuation that were not noted in review of the chart prior to signing ED Disposition - Plan for ED Patient: Disposition: Acute Care Hospital [facility] Diagnosis: Acute renal failure superimposed on chronic kidney disease, on chronic dialysis, Hyperkalemia
[2020-07-09 10:08] LABS: Absolute Neutrophil Count 6.2 X10^3/uL (2.0-7.7); Basophil# 0.05 X10^3/uL; Basophil% 0.6 % (0-1); Eosinophil# 0.12 X10^3/uL; Eosinophils% 1.3 % (0-5); Hematocrit 33.8 % (40-54); Hemoglobin 11.2 g/dL (13.0-16.5); Lymphocyte % 14.4 % (19-41); Mean Corp Hgb Conc 33.1 g/dL (32-36); Mean Corpuscular Hgb 32.2 pg (27.0-32.0); Mean Corpuscular Volume 97.1 fL (80-94); Mean Platelet Vol. 9.7 fl (6.2-12.0); Monocyte# 1.27 X10^3/uL; Monocyte% 14.1 % (0-10); NRBC Flagged by Analyzer 0 % (0-5); Neutrophil # 6.21 X10^3/uL (2.7-7.7); Platelet Count 177 K/mm3 (150-450); RBC Distribution Width SD 49.7 fl (35.1-43.9); Red Blood Count 3.48 M/mm3 (4.6-6.2)
[2020-07-09 10:31] LABS: AST(SGOT) 7 U/L (15-37); Alanine Aminotransfer ALT/SGPT 34 U/L (16-61); Albumin, Serum 3.6 g/dL (3.2-5.0); Alkaline Phosphatase 63 U/L (45-117); Anion Gap 10 (5-15); BUN 89 mg/dL (7-18); Chloride 92 mmol/L (98-107); Creatinine, Serum 9.85 mg/dL (0.70-1.30); EST Glomerular Filtration Rate 6 mL/min (>60); Est Glom Filt Rate - Afr Amer 7 mL/min (>60); Estimated Creatinine Clearance 7.52 ml/min; Globulin 3.7 g/dL (2.2-4.2); Glucose 154 mg/dL (74-106); Potassium 6.3 mmol/L (3.5-5.1); Protein, Total 7.3 g/dL (6.4-8.2); Sodium Level 129 mmol/L (136-145)
--- NOTE | 2020-07-09 11:45 | NURSING ---
DR BRITTANY CONNELLY
--- NOTE | 2020-07-09 11:53 | NURSING ---
DR SOTO IN ROOM
--- NOTE | 2020-07-09 11:54 | NURSING ---
DR SOTO IN ER
--- NOTE | 2020-07-09 11:55 | NURSING ---
PCU OBS BRITTANY ACUTE ON CHRONIC KIDNEY DISEASE, HYPERKALEMIA, GENERALIZED WEAKNESS
[2020-07-09] MEDS: Dextrose 50%-Water 25 GM/50 ML DISP.SYRIN IV (12:10)
[2020-07-09] MEDS: Insulin Lispro 10 UNIT in Syringe 0 ML 6 UNIT IV (12:10)
--- NOTE | 2020-07-09 12:18 | HP.PCM_ITS ---
Problem List (1) Bradycardia Status: Acute (2) ESRD (end stage renal disease) on dialysis Status: Acute (3) Problem with dialysis access Status: Inactive (4) Hyperkalemia Status: Acute (5) MOUNA (acute kidney injury) Status: Inactive (6) Chronic renal failure, stage 5 Status: Chronic (7) Chronic kidney disease (CKD) Status: Chronic Qualifiers: (8) Acute on chronic congestive heart failure Status: Chronic Qualifiers: (9) CHF (congestive heart failure) Status: Chronic Qualifiers: (10) Supratherapeutic INR Status: Inactive (11) Morbid obesity with BMI of 50.0-59.9, adult Status: Inactive (12) [facility] current use of anticoagulant Status: Chronic (13) History of right and left heart catheterization Status: Chronic Comment: Done s/p VSD repair Per Dr. Sherif Espinoza @ [facility]: normal coronaries, mildly elevated PA pressures (14) Paroxysmal SVT (supraventricular tachycardia) Status: Chronic (15) Atrial fibrillation Status: Chronic Qualifiers: (16) History of atrial flutter Status: Chronic Comment: Attempted atrial flutter ablation @ [facility] X 1 in 1997 (unsuccessful), followed by Atrial flutter ablations X [address] Paul at [facility] in Apr and October of 1998 (17) Chronic diastolic congestive heart failure Status: Chronic (18) History of patent ductus arteriosus as a child Status: Chronic Comment: Repaired at age 3 years, done @ [facility] (19) Nonrheumatic tricuspid valve regurgitation Status: Chronic Comment: Leaflet used for VSD repair in past (20) History of ventricular septal defect repair Status: Chronic Comment: 1977 (pt approx age 18) using Dacron patch, done at [facility] (21) Hyperlipidemia Status: Chronic Qualifiers: (22) Hypertension Status: Chronic Qualifiers: (23) Diabetes mellitus, type II Status: Chronic Qualifiers: (24) History of radiofrequency ablation procedure for cardiac arrhythmia Status: Chronic Comment: Attempted atrial flutter ablation @ [facility] X 1 (unsuccessful), followed by Atrial flutter ablations X [address] Paul at [facility] in Apr and October of 1998 (25) Pulmonary hypertension, moderate to severe Status: Chronic Comment: PASP 69 mmHg in September 2013 (26) LASHAWN (obstructive sleep apnea) Status: Chronic History of Present Illness Date of Admission: 07/09/20 Chief Complaint: weakness. bradycardia The patient is a 60 year old M who last night felt palpitations. He checked his HR and was 119. He was admitted earliest this month for bradycardia and was taken off metoprolol succinate. Due to the tachycardia, he took a dose of metoprolol last night. This AM, he felt weak and checked his HR and was in the 30s and was unable to go to HD. He presented to ED and HR was in the 40s, K was 6.3. He denies COVID-19 exposure. He received Ca Gluconate, D50 and IV insulin in ED. He states that he is compliant with HD and his diet.[] Past Medical History Past Medical History (Chronic Problems): Chronic Problems (Last Reviewed 07/02/20 @ 14:26 by Becki Gorman) Chronic renal failure, stage 5 (Chronic) Chronic kidney disease (CKD) (Chronic) Acute on chronic congestive heart failure (Chronic) CHF (congestive heart failure) (Chronic) [employer] current use of anticoagulant (Chronic) History of right and left heart catheterization (Chronic 02/18/98) Done s/p VSD repair Per Dr. Sherif Espinoza @ [facility]: normal coronaries, mildly la vated PA pressures Paroxysmal SVT (supraventricular tachycardia) (Chronic) Atrial fibrillation (Chronic) History of atrial flutter (Chronic) Attempted atrial flutter ablation @ [facility] X 1 in 1997 (unsuccessful), followed by Atrial flutter ablations X [address] Paul at [facility] in Apr and October of 1998 Chronic diastolic congestive heart failure (Chronic) History of patent ductus arteriosus as a child (Chronic) Repaired at age 3 years, done @ [facility] Nonrheumatic tricuspid valve regurgitation (Chronic) Leaflet used for VSD repair in past History of ventricular septal defect repair (Chronic) 1977 (pt approx age 18) using Dacron patch, done at [facility] Hyperlipidemia (Chronic) Hypertension (Chronic) Diabetes mellitus, type II (Chronic) History of radiofrequency ablation procedure for cardiac arrhythmia (Chronic) Attempted atrial flutter ablation @ [facility] X 1 (unsuccessful), followed by Atrial flutter ablations X [address] Paul at [facility] in Apr and October of 1998 Pulmonary hypertension, moderate to severe (Chronic) PASP 69 mmHg in September 2013 LASHAWN (obstructive sleep apnea) (Chronic) Medical History: Medical History (Last Reviewed 07/09/20 @ 12:[address] 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 Paul at [facility] in Apr and October of 1998 Chronic diastolic congestive heart failure (Chronic) I50.32 History of patent ductus arteriosus as a child (Chronic) Z87.74 Repaired at age 3 years, done @ [facility] Nonrheumatic tricuspid valve regurgitation (Chronic) I36.1 Leaflet used for VSD repair in past Hyperlipidemia (Chronic) E78.5 Hypertension (Chronic) I10 Diabetes mellitus, type II (Chronic) E11.9 Pulmonary hypertension, moderate to severe (Chronic) I27.2 PASP 69 mmHg in September 2013 LASHAWN (obstructive sleep apnea) (Chronic) G47.33 History of arm fracture Z87.81 X2 History of paroxysmal supraventricular tachycardia (Inactive) Z86.79 Allergies albuterol Adverse Reaction (Verified 07/09/20 09:11) increased heart rate increased heart rate. amoxicillin trihydrate [From Augmentin] Adverse Reaction (Verified 07/09/20 09:11) Diarrhea indomethacin [From Indocin] Adverse Reaction (Verified 07/09/20 09:11) Nausea potassium clavulanate [From Augmentin] Adverse Reaction (Verified 07/09/20 09:11) Diarrhea Home Medications: Ambulatory Orders Medication Instructions Recorded Atorvastatin Calcium 20 mg PO QHS 04/16/19 Insulin Lispro [Humalog KwikPen] 5 unit SC LUNCH insuln.pen 04/28/19 Insulin Lispro [Humalog KwikPen] 7 unit SC BREAKFAST insuln.pen 04/28/19 Docusate Sodium [Colace] 100 mg PO DAILY PRN PRN 11/21/19 Melatonin 3 mg PO QHS PRN 11/21/19 Furosemide [Lasix] 80 mg PO BID@1000,1800 12/29/19 Insulin Glargine [Lantus SoloStar 15 units SC BID 12/29/19 Pen] Insulin Lispro [Humalog KwikPen] 6 unit SC DINNER 12/29/19 Insulin Lispro [Humalog KwikPen] See Protocol SC ACHS 12/29/19 Tamsulosin HCl [Flomax] 0.4 mg PO QHS 12/29/19 Warfarin [Coumadin] 3 mg PO DAILY 06/10/20 Amiodarone HCl 200 mg PO BID 07/09/20 Surgical History: Surgical History (Last Reviewed 07/09/20 @ 12:[address] Fidel Vazquez DO) History of right and left heart catheterization (Chronic) Onset Date: 02/18/98 Z98.890 Done s/p VSD repair Per Dr. Sherif Espinoza @ [facility]: normal coronaries, mildly elevated PA pressures History of ventricular septal defect repair (Chronic) Z87.74 1977 (pt approx age 18) using Dacron patch, done at [facility] History of radiofrequency ablation procedure for cardiac arrhythmia (Chronic) Z98.890 Attempted atrial flutter ablation @ [facility] X 1 (unsuccessful), followed by Atrial flutter ablations X [address] Paul at [facility] in Apr and October of 1998 history transposition AV Fistula left forearm Onset Date: ~04/02/20 Surgical History: - Psychiatric History: No pertinent psych hx Smoking Status: Never smoker - *Family History Maternal Family History: Family History (Last Reviewed 07/09/20 @ 12:[address] Fidel Vazquez DO) Mother Hypertension Diabetes CVA (cerebral vascular accident) Valvular heart disease Father CVA (cerebral vascular accident) Hypertension Hyperlipidemia History Items: Diabetes, High Cholesterol, Heart Disease, Hypertension, Stroke, - - Mother with history of concurrent valvular heart disease. Paternal Family History: Family History (Last Reviewed 07/09/20 @ 12:[address] Fidel Vazquez DO) Mother Hypertension Diabetes CVA (cerebral vascular accident) Valvular heart disease Father CVA (cerebral vascular accident) Hypertension Hyperlipidemia History Items: High Cholesterol, Heart Disease, Hypertension, Stroke Review of Systems Constitutional: Reports: Malaise, Weakness. Denies: Anorexia, Chills, Fever Eyes: Denies: Blurred vision, Double vision HEENT: Denies: Head Aches, Sinus Congestion, Sinus Drainage Cardiovascular: Reports: Palpitations. Denies: Chest Pain Respiratory: Denies: Cough, Shortness of breath at rest, Sputum production Gastrointestinal: Denies: Abdominal Pain, Nausea, Vomiting Genitourinary: Denies: Dysuria Musculoskeletal: Denies: Joint Pain, Joint Tenderness Skin: Denies: Dryness, Lesions Hematologic/ Lymphatic: Denies: Easy Bruising, Easy Bleeding, Hx of blood clot Comment: All review of systems were negative except as mentioned above in the history of present illness and the other review of systems. VTE Information - Inpt Only VTE Present on Admission: No VTE Mechan Device Prophylaxis: None VTE Pharm Prophylaxis ordered?: No Reason prophylaxis not ordered:: Treatment Not Indicated - Physical Exam Vitals/I&O's: Vital Signs Temp Pulse Resp BP Pulse Ox 36.7 C 44 L 20 H 114/94 H 99 07/09/20 09:09 07/09/20 10:34 07/09/20 10:34 07/09/20 10:34 07/09/20 10:34 Oxygen Flow Rate (L/min) 3 Oxygen Delivery Method Nasal Cannula Weight: 128.82 kg Body Mass Index (BMI) 43.2 Finger Stick Blood Glucose 135 General: Alert, Cooperative, No apparent distress HEENT: Atraumatic, Normocephalic Neck: No JVD, Thyroid Normal Size and Texture Lungs: Clear to auscultation, Normal air movement, No rhonchi, No wheeze, No rales Cardiovascular: Regular rate, Regular Rhythm, Normal S1, Normal S2, No murmurs Abdomen: Bowel Sounds Present, Soft, Non Tender, Non-Distended, No Hepato-splenomegaly, Obese Extremities: No edema, No Calf Tenderness Skin: No rashes, No breakdown Musculoskeletal: No Tenderness to Palpation of Joints or Extremities, No Muscle Wasting Neurological: Muscle tone normal, - - no clonus Psych/Mental Status: Normal Affect, Appropriate Laboratory Results 07/09/20 09:35: WBC 9.0, RBC 3.48 L, Hgb 11.2 L, Hct 33.8 L, MCV 97.1 H, MCH 32.2 H, MCHC 33.1, RDW Std Deviation 49.7 H, RDW Coeff of Janiya 14.0, Plt Count 177, MPV 9.7, Immature Gran % (Auto) 0.600, Neut % (Auto) 69.0, Lymph % (Auto) 14.4 L, [place] % (Auto) 14.1 H, Eos % (Auto) 1.3, Baso % (Auto) 0.6, Absolute Neuts (auto) 6.2, Absolute Lymphs (auto) 1.30, Nucleated RBC % 0 07/09/20 09:35: Sodium 129 L, Potassium 6.3 H*, Chloride 92 L, Carbon Dioxide 27.0, Anion Gap 10, BUN 89 H, Creatinine 9.85 H*, Estim Creat Clear Calc 7.52, Est GFR (MDRD) Af Amer 7 L, Est GFR (MDRD) Non-Af 6 L, BUN/Creatinine Ratio 9.0 L, Glucose 154 H, Calcium 9.0, Total Bilirubin 0.70, AST 7 L, ALT 34, Alkaline Phosphatase 63, Troponin I < 0.015, Total Protein 7.3, Albumin 3.6, Globulin 3.7, Albumin/Globulin Ratio 1.0 Current Medications Calcium Gluconate 3 gm/ N/A 30 mls @ 600 mls/hr IV .Q3M PRN PRN Reason: Continued EKG changes Last Admin: 07/09/20 12:13 Dose: 600 mls/hr Documented by: Assessment/Plan All Active Problems (Last Reviewed 07/02/20 @ 14:26 by Becki Gorman) Bradycardia (Acute) ESRD (end stage renal disease) on dialysis (Acute) Hyperkalemia (Acute) 1. bradycardia likely iatrogenic from taking metoprolol succinate and amiodarone plan: * hold amiodarone and metoprolol (metoprolol succinate was discontinued last admission, but he took last night because of tachycardia) * correct electrolyte derangements * monitor * consult cardiology (DIEGO Osborn) 2. hyperkalemia per pt, he is compliant with HD and diet received treatement in ED plan: * dialyze * recheck 3. ESRD on HD plan: DIEGO Anne, plan for HD today. 4. DM2 continue home meds (insulin) 5. Afib amio and metoprolol held continue warfarin check INR 6. VTE prophylaxis: on warfarin 7. Advanced care planning: DIEGO pt, he wishes to be full code. 8. Weakness: Suspect due to bradycardia. Will check rapid COVID-19 rapid. If negative, no additional COVID-19 testing would be needed. OBSV E&M: [id number] Initial observation care L3
--- NOTE | 2020-07-09 12:35 | CON.PCM_ITS ---
Consultation - Renal 07/09/20 PCP/ Referring MD: Requesting physician: Dr. Fidel Adame Primary care physician: Dr. Francisco Alcazar MD Reason for Consultation:: ESRD - History of Present Illness History of Present Illness: The patient is a 60-year-old man with past history of end-stage renal disease, type 2 diabetes mellitus, hypertension, atrial fibrillation, LASHAWN, and pulmonary hypertension. The patient is on hemodialysis at [facility] on the Wednesday, and Wednesday schedule. The patient presented with feeling unwell and presented to the emergency department today. The patient was found to have bradycardia with HR<50 and potassium level was 6.3. The patient initially had palpitation last last night and took a beta-jackson which was had been previously put on hold. He denies chest pain, nausea, vomiting or increasing edema. The pt was SOB on presentation, but is feeling better now. - Allergies Allergies: Allergies albuterol Adverse Reaction (Verified 07/09/20 09:11) increased heart rate increased heart rate. amoxicillin trihydrate [From Augmentin] Adverse Reaction (Verified 07/09/20 09:11) Diarrhea indomethacin [From Indocin] Adverse Reaction (Verified 07/09/20 09:11) Nausea potassium clavulanate [From Augmentin] Adverse Reaction (Verified 07/09/20 09:11) Diarrhea - Current Medications Current Medications: Current Medications Calcium Gluconate 3 gm/ N/A 30 mls @ 600 mls/hr IV .Q3M PRN PRN Reason: Continued EKG changes Last Infusion: 07/09/20 12:19 Dose: Infused Documented by: - Past Medical History Past Medical History (Chronic Problems): Chronic Problems (Last Reviewed 07/09/20 @ 12:[address] Fidel Vazquez, DO) Chronic renal failure, stage 5 (Chronic) Chronic kidney disease (CKD) (Chronic) Acute on chronic congestive heart failure (Chronic) CHF (congestive heart failure) (Chronic) intermediate current use of anticoagulant (Chronic) History of right and left heart catheterization (Chronic 02/18/98) Done s/p VSD repair Per Dr. Sherif Espinoza @ [facility]: normal coronaries, mildly elevated PA pressures Paroxysmal SVT (supraventricular tachycardia) (Chronic) Atrial fibrillation (Chronic) History of atrial flutter (Chronic) Attempted atrial flutter ablation @ [facility] X 1 in 1997 (unsuccessful), followed by Atrial flutter ablations X [address] Paul at [facility] in Apr and October of 1998 Chronic diastolic congestive heart failure (Chronic) History of patent ductus arteriosus as a child (Chronic) Repaired at age 3 years, done @ [facility] Nonrheumatic tricuspid valve regurgitation (Chronic) Leaflet used for VSD repair in past History of ventricular septal defect repair (Chronic) 1977 (pt approx age 18) using Dacron patch, done at [facility] Hyperlipidemia (Chronic) Hypertension (Chronic) Diabetes mellitus, type II (Chronic) History of radiofrequency ablation procedure for cardiac arrhythmia (Chronic) Attempted atrial flutter ablation @ [facility] X 1 (unsuccessful), followed by Atrial flutter ablations X [address] Paul at [facility] in Apr and October of 1998 Pulmonary hypertension, moderate to severe (Chronic) PASP 69 mmHg in September 2013 LASHAWN (obstructive sleep apnea) (Chronic) - Past Surgical History Surgical History: - - Social History Smoking Status: Never smoker - Family History Maternal Family History: Family History (Last Reviewed 07/09/20 @ 12:[address] Fidel Vazquez DO) Mother Hypertension Diabetes CVA (cerebral vascular accident) Valvular heart disease Father CVA (cerebral vascular accident) Hypertension Hyperlipidemia History Items: Diabetes, High Cholesterol, Heart Disease, Hypertension, Stroke, - - Mother with history of concurrent valvular heart disease. Paternal Family History: Family History (Last Reviewed 07/09/20 @ 12:[address] Fidel Vazquez DO) Mother Hypertension Diabetes CVA (cerebral vascular accident) Valvular heart disease Father CVA (cerebral vascular accident) Hypertension Hyperlipidemia History Items: High Cholesterol, Heart Disease, Hypertension, Stroke Review of Systems Constitutional: Denies: Chills, Fever, Weight Change Eyes: Denies: Blurred vision, Pain HEENT: Denies: Head Aches, Sinus Congestion, Sinus Drainage Cardiovascular: Reports: Palpitations. Denies: Chest Pain Respiratory: Denies: Cough, Shortness of breath at rest, Sputum production Gastrointestinal: Denies: Abdominal Pain, Nausea, Vomiting Genitourinary: Denies: Dysuria Musculoskeletal: Denies: Joint Pain, Joint Tenderness Skin: Denies: Rash, Wounds Neurological: Denies: Numbness, Tingling, Focal weakness Psychiatric: Denies: Anxiety, Depression, Homicidal Ideations, Suicidal Ideations Hematologic/ Lymphatic: Denies: Easy Bruising, Easy Bleeding Patient Problems: Active and Suspected Problems (Last Reviewed 07/09/20 @ 12:[address] Fidel Vazquez DO) Bradycardia (Acute) ESRD (end stage renal disease) on dialysis (Acute) Hyperkalemia (Acute) - Physical Exam Vitals/I&O's: Vital Signs Temp Pulse Resp BP Pulse Ox 97.9 F 49 L 18 106/37 L 100 07/09/20 12:23 07/09/20 12:23 07/09/20 12:23 07/09/20 12:23 07/09/20 12:23 Oxygen Flow Rate (L/min) 3 Oxygen Delivery Method Room Air Weight: 128.82 kg Body Mass Index (BMI) 43.2 Finger Stick Blood Glucose 135 Intake and Output for Last 24 Hours 07/07/20 07/08/20 07/09/20 23:59 23:59 23:59 Intake Total Balance General: Alert, Oriented x3 HEENT: PERRLA, EOMI Oral: Moist Mucosa Neck: Supple Lungs: Clear to auscultation Cardiovascular: Normal S1, Normal S2, Bradycardic Abdomen: Bowel Sounds Present, Soft, Non Tender Extremities: No cyanosis, No edema Skin: No rashes Psych/Mental Status: Normal Affect Laboratory Results 07/09/20 09:35: WBC 9.0, RBC 3.48 L, Hgb 11.2 L, Hct 33.8 L, MCV 97.1 H, MCH 32.2 H, MCHC 33.1, RDW Std Deviation 49.7 H, RDW Coeff of Janiya 14.0, Plt Count 177, MPV 9.7, Immature Gran % (Auto) 0.600, Neut % (Auto) 69.0, Lymph % (Auto) 14.4 L, [place] % (Auto) 14.1 H, Eos % (Auto) 1.3, Baso % (Auto) 0.6, Absolute Neuts (auto) 6.2, Absolute Lymphs (auto) 1.30, Nucleated RBC % 0 07/09/20 09:35: Sodium 129 L, Potassium 6.3 H*, Chloride 92 L, Carbon Dioxide 27.0, Anion Gap 10, BUN 89 H, Creatinine 9.85 H*, Estim Creat Clear Calc 7.52, Est GFR (MDRD) Af Amer 7 L, Est GFR (MDRD) Non-Af 6 L, BUN/Creatinine Ratio 9.0 L, Glucose 154 H, Calcium 9.0, Total Bilirubin 0.70, AST 7 L, ALT 34, Alkaline Phosphatase 63, Troponin I < 0.015, Total Protein 7.3, Albumin 3.6, Globulin 3.7, Albumin/Globulin Ratio 1.0 Current Medications Calcium Gluconate 3 gm/ N/A 30 mls @ 600 mls/hr IV .Q3M PRN PRN Reason: Continued EKG changes Last Infusion: 07/09/20 12:19 Dose: Infused Documented by: Assessment/Plan All Active Problems (Last Reviewed 07/09/20 @ 12:[address] Fidle Vazquez, DO) Bradycardia (Acute) ESRD (end stage renal disease) on dialysis (Acute) Hyperkalemia (Acute) 1. ESRD. The patient dialyzes at [facility] on Wednesday, and Wednesday schedule. The patient also presented with hyperkalemia. I will arrange for dialysis when he arrives PCU. We will use 2K dialysate. 2. Hyperkalemia. The patient is usually on a 3K dialysate at the kidney center. However, his potassium level is 6.3 mEq/L. Therefore, I will use a lower potassium dialysate today. Recheck potassium level tomorrow. 3. Bradycardia. Likely related to beta-jackson. The patient is also hyperkalemic. As mentioned above, we will use a lower potassium dialysate today. 4. Anemia. The patient has anemia of chronic kidney disease. His hemoglobin is 11.2 g/dL which is acceptable for dialysis patient. Continue TAMICA on his usual outpatient schedule. He is not due for TAMICA for another 1 week.
--- NOTE | 2020-07-09 12:49 | CON.PCM_ITS ---
Problem List (1) Bradycardia Status: Acute (2) Paroxysmal SVT (supraventricular tachycardia) Status: Chronic (3) Atrial fibrillation Status: Chronic Qualifiers: (4) History of atrial flutter Status: Chronic Comment: Attempted atrial flutter ablation @ [facility] X 1 in 1997 (unsuccessful), followed by Atrial flutter ablations X [address] Paul at [facility] in Apr and October of 1998 (5) History of radiofrequency ablation procedure for cardiac arrhythmia Status: Chronic Comment: Attempted atrial flutter ablation @ [facility] X 1 (unsuccessful), followed by Atrial flutter ablations X [address] Paul at [facility] in Apr and October of 1998 (6) History of patent ductus arteriosus as a child Status: Chronic Comment: Repaired at age 3 years, done @ [facility] (7) History of ventricular septal defect repair Status: Chronic Comment: 1977 (pt approx age 18) using Dacron patch, done at [facility] (8) Hyperlipidemia Status: Chronic Qualifiers: (9) Hypertension Status: Chronic Qualifiers: (10) Diabetes mellitus, type II Status: Chronic Qualifiers: (11) LASHAWN (obstructive sleep apnea) Status: Chronic (12) Pulmonary hypertension, moderate to severe Status: Chronic Comment: PASP 69 mmHg in September 2013 (13) Right heart failure due to pulmonary hypertension Status: Acute (14) ESRD (end stage renal disease) on dialysis Status: Acute (15) Hyperkalemia Status: Acute Reason for Consult Date of Consultation: 07/09/20 History of Present Illness: The patient is a 60 year old white male who has a past cardiovascular history which has included PSVT, paroxysmal atrial fibrillation/flutter, status post EPS/RFA (x2), PDA status post closure-remote, VSD status post closure-remote, hyperlipidemia, hypertension, diabetes mellitus, LASHAWN, pulmonary hypertension, right heart failure thought secondary to pulmonary hypertension, end-stage renal disease on chronic hemodialysis, and hyperkalemia who presents for concerns of bradycardia. He has previously been followed by Elier Khanna MD of the [facility]. He states that his main concern has been his cardiac rhythm. He has episodes where he still notes his rate elevates and he believes he goes in and out of atrial fibrillation and/or flutter. He has been on medical therapy in the past which is included rate control therapy with beta-blockers as well as antiarrhythmic therapy with amiodarone. He notes during a recent hospitalization when he had bradycardia his beta-blockers were placed on hold. He remained on his amiodarone therapy. States since that hospitalization he did have an episode where his heart rate elevated. He did take a dose of his beta-jackson which he believes was metoprolol XL 50 mg x 1. He states he began to feel somewhat more weak, diz zy, lightheaded, and elected to present back to the hospital for further evaluation. He was once again found to be bradycardic. He was also found on his laboratory studies to be hyperkalemic. He has then been placed in the PCU for further evaluation. His rate limiting agents have once again been placed on hold. He is also undergoing hemodialysis to assist with his electrolyte control. He has denied any ongoing chest discomfort. He has had no acute on chronic CHF related events that he is aware of. He has not lost consciousness. He states he does have chronic lower extremity peripheral pitting edema. He does have both a temporary dialysis catheter in place as well as a fistula in place. He states his fistula may not be matured enough to work properly at this point in time thus the temporary dialysis catheter is being used. He has undergone various cardiovascular studies in the past. His studies are as noted below. [] Past Medical History Allergies/Adverse Reactions: Allergies albuterol Adverse Reaction (Verified 07/09/20 09:11) increased heart rate increased heart rate. amoxicillin trihydrate [From Augmentin] Adverse Reaction (Verified 07/09/20 09:11) Diarrhea indomethacin [From Indocin] Adverse Reaction (Verified 07/09/20 09:11) Nausea potassium clavulanate [From Augmentin] Adverse Reaction (Verified 07/09/20 09:11) Diarrhea Home Medications: Ambulatory Orders Medication Instructions Recorded Atorvastatin Calcium 20 mg PO QHS 04/16/19 Insulin Lispro [Humalog KwikPen] 5 unit SC LUNCH insuln.pen 04/28/19 Insulin Lispro [Humalog KwikPen] 7 unit SC BREAKFAST insuln.pen 04/28/19 Docusate Sodium [Colace] 100 mg PO DAILY PRN PRN 11/21/19 Melatonin 3 mg PO QHS PRN 11/21/19 Furosemide [Lasix] 80 mg PO BID@1000,1800 12/29/19 Insulin Glargine [Lantus SoloStar 10 units SC BID 12/29/19 Pen] Insulin Lispro [Humalog KwikPen] 6 unit SC DINNER 12/29/19 Insulin Lispro [Humalog KwikPen] See Protocol SC ACHS 12/29/19 Tamsulosin HCl [Flomax] 0.4 mg PO QHS 12/29/19 Warfarin [Coumadin] 3 mg PO DAILY 06/10/20 Amiodarone HCl 200 mg PO BID 07/09/20 Past Medical History (Chronic Problems): Chronic Problems (Last Reviewed 07/09/20 @ 12:[address] Fidel Vazquez DO) Chronic renal failure, stage 5 (Chronic) Chronic kidney disease (CKD) (Chronic) Acute on chronic congestive heart failure (Chronic) CHF (congestive heart failure) (Chronic) intermediate current use of anticoagulant (Chronic) History of right and left heart catheterization (Chronic 02/18/98) Done s/p VSD repair Per Dr. Sherif Espinoza @ [facility]: normal coronaries, mildly elevated PA pressures Paroxysmal SVT (supraventricular tachycardia) (Chronic) Atrial fibrillation (Chronic) History of atrial flutter (Chronic) Attempted atrial flutter ablation @ [facility] X 1 in 1997 (unsuccessful), followed by Atrial flutter ablations X [address] Paul [address] [facility] in Apr and October of 1998 Chronic diastolic congestive heart failure (Chronic) History of patent ductus arteriosus as a child (Chronic) Repaired at age 3 years, done @ [facility] Nonrheumatic tricuspid valve regurgitation (Chronic) Leaflet used for VSD repair in past History of ventricular septal defect repair (Chronic) 1977 (pt approx age 18) using Dacron patch, done at [facility] Hyperlipidemia (Chronic) Hypertension (Chronic) Diabetes mellitus, type II (Chronic) History of radiofrequency ablation procedure for cardiac arrhythmia (Chronic) Attempted atrial flutter ablation @ [facility] X 1 (unsuccessful), followed by Atrial flutter ablations X [address] Paul [address] [facility] in Apr and October of 1998 Pulmonary hypertension, moderate to severe (Chronic) PASP 69 mmHg in September 2013 LASHAWN (obstructive sleep apnea) (Chronic) Surgical History: - Psychiatric History: No pertinent psych hx - *Family History Maternal Family History: Family History (Last Reviewed 07/09/20 @ 12:[address] Fidel Jopperi, DO) Mother Hypertension Diabetes CVA (cerebral vascular accident) Valvular heart disease Father CVA (cerebral vascular accident) Hypertension Hyperlipidemia History Items: Diabetes, High Cholesterol, Heart Disease, Hypertension, Stroke, - - Mother with history of concurrent valvular heart disease. Paternal Family History: Family History (Last Reviewed 07/09/20 @ 12:[address] Fidel Vazquez DO) Mother Hypertension Diabetes CVA (cerebral vascular accident) Valvular heart disease Father CVA (cerebral vascular accident) Hypertension Hyperlipidemia History Items: High Cholesterol, Heart Disease, Hypertension, Stroke Smoking Status: Never smoker Review of Systems - Review of Systems General: Reports: Fatigue Cardiovascular: Reports: Peripheral Edema, Lightheadedness, Dizziness. Denies: Chest Discomfort, Shortness of Breath, Orthopnea, PND, Palpitations, Near Syncope, Syncope Respiratory: Denies: Cough, Sputum Production, Hemoptysis Gastrointestinal: Denies: Hematemesis, Hematochezia, Melena Genitourinary: Denies: Dysuria, Hematuria Skin: Denies: Rash Subjectve: This is a 60-year-old white male who appears to be resting comfortably at the moment in no acute distress. Objective: Vital Signs Temp Pulse Resp BP Pulse Ox 97.9 F 49 L 18 106/37 L 100 07/09/20 12:23 07/09/20 12:23 07/09/20 12:23 07/09/20 12:23 07/09/20 12:23 Oxygen Flow Rate (L/min) 3 Oxygen Delivery Method Room Air Weight: 284 lb Body Mass Index (BMI) 43.2 Finger Stick Blood Glucose 135 Intake and Output for Last 24 Hours 07/07/20 07/08/20 07/09/20 23:59 23:59 23:59 Intake Total Balance General: Awake, Alert, Oriented x 3, Cooperative, No Acute Distress, Obese HEENT: Atraumatic, Normocephalic, PERRL, EOMI, Sclera Non Icteric Neck: Supple, Good ROM, No JVD Lungs: Clear to auscultation Cardiovascular: Regular Rhythm, Normal S1, Normal S2 Murmur Murmur: Grade 2/6, Harsh, Mid Systolic, LLSB, LVOT, Sternal Notch Abdomen: Bowel Sounds Present, Soft, Non Tender Extremities: Mild RLE Edema, Mild LLE Edema Neurological: No Focal Motor or Sensory Deficit Psych/Mental Status: Appropriate 07/09/20 09:35: WBC 9.0, RBC 3.48 L, Hgb 11.2 L, Hct 33.8 L, MCV 97.1 H, MCH 32.2 H, MCHC 33.1, Plt Count 177, MPV 9.7, Immature Gran % (Auto) 0.600, Neut % (Auto) 69.0, Lymph % (Auto) 14.4 L, [place] % (Auto) 14.1 H, Eos % (Auto) 1.3, Baso % (Auto) 0.6, Absolute Neuts (auto) 6.2, Nucleated RBC % 0 07/09/20 09:35: Sodium 129 L, Potassium 6.3 H*, Chloride 92 L, Carbon Dioxide 27.0, Anion Gap 10, BUN 89 H, Creatinine 9.85 H*, Est GFR (MDRD) Af Amer 7 L, Est GFR (MDRD) Non-Af 6 L, BUN/Creatinine Ratio 9.0 L, Glucose 154 H, Calcium 9.0, Total Bilirubin 0.70, Troponin I < 0.015 Rhythm: Sinus rhythm/sinus bradycardia EKG: Atrial fibrillation; right bundle branch block ECHO: 11/21/2019 Interpretation Summary The study was technically limited. Based upon the 2D echocardiographic and contrast enhanced images obtained there appears to be grossly normal left ventricular size, wall motion, and systolic function. The estimated ejection fraction is 55 %. Moderately dilated right ventricle. Moderate global right ventricular systolic dysfunction. Right ventricular systolic pressure estimated to be 71 mmHg compatible with sev ere pulmonary hypertension. Unable to assess diastolic dysfunction. Comment: The atrial septum and ventricular septum are not well visualized. JOSEPH: 09/22/2013 Medication JOSEPH probe passed without difficulty. Performed a rapid injection of agitated mix of 9 cc saline and 1cc air to assess for atrial septal defect. [id number] gargled and swallowed. Versed 2 mg given slow IVP. Fentanyl 50 mcg given slow IVP. Left Ventricle Normal size and thickness. Intact proximal VSD repair; no sign of color flow across repair site. The estimated ejection fraction is 50 %. Septal bounce. Mid-Anterior : Mildly hypokinetic. Right Ventricle Moderately dilated right ventricle. Moderate hypertrophy of the right ventricle. The right ventricular wall motion is normal. Atria Normal atrial septum. Bubble contrast study negative for right to left interatrial shunt. Normal left atrium. No thrombus is detected in the left atrial appendage. The right atrium is severely enlarged. Mitral Valve The mitral valve is structurally normal. No prolapse or stenosis seen. Trivial mitral valve insufficiency. Tricuspid Valve Failure to coapt. Possible absent medial cusp of tricuspid valve at attachment site of previous VSD repair. Severe (4+) eccentric tricuspid valve insufficiency. Right ventricular systolic pressure estimated to be 69 mmHg. Severe pulmonary hypertension. Aortic Valve Trisinus/trileaflet aortic valve. Pulmonic Valve Normal pulmonic valve. Vessels Normal aortic root. Normal arch. Normal pulmonary veins. Doppler Measurements & Calculations TR max jill: 368.9 cm/sec TR max P.4 mmHg Interpretation Summary The estimated ejection fraction is 50 %. Mid-Anterior : Mildly hypokinetic Moderate hypertrophy of the right ventricle. Moderately dilated right ventricle. Bubble contrast study negative for right to left interatrial shunt. No thrombus is detected in the left atrial appendage. The right atrium is severely enlarged. Possible absent medial cusp of tricuspid valve at attachment site of previous VSD repair. Severe (4+) eccentric tricuspid valve insufficiency. Right ventricular systolic pressure estimated to be 69 mmHg. Severe pulmonary hypertension. Intact proximal VSD repair; no sign of color flow across repair site. Ordering Physician: Elier Khanna Referring Physician: Yogesh Johnson Performed By: Brianne Shannon RDCS Stress Test: 11/11/2018 Reason For Study: CHF, Dyspnea Stress Results Protocol: Dobutamine Stress Echo Maximum Predicted HR: 160 bpm Target HR: 136 bpm % Maximum Predicted HR: 107 % Heart Stage Duration Rate BP Comment (mm:ss) (bpm) No Chest Pain; Diluted Definity 6 ML Given; Patient In Atrial Baseline 71 118/59Fibrillation When Attached to EKG Machine; Converted to NSR When Turned Onto Left Side; Technically Difficult Study DSE 10 MCG 3:54 72 126/73No Chest Pain DSE 20 MCG 3:00 91 124/78No Chest Pain DSE 30 MCG 3:34 171 136/68No Chest Pain; Paroxysmal Atrial Fibrillation Recovery 83 121/78No Chest Pain; Paroxysmal Atrial Fibrillation Stress Duration: 10:28 mm:ss Maximum Stress HR: 171 bpm METS: 1 Baseline Echocardiogram Findings The estimated ejection fraction is 65 %. Stress Echo Wall motion Data Resting WM Intermediate WM Stress WM Resting Wall Motion Wall Motion Stress No regional wall motion No regional wall motion abnormalities noted. abnormalities noted. EKG Data The baseline ECG displays normal sinus rhythm. The patient was titrated from 10 mcg to a maximun of 30 mcg of dobutamine during the stress. The maximum heart rate attained was 171 beats per minute. This was 106% of maximum predicted heart rate. During dobutamine infusion, there were no ST or T wave changes noted to suggest ischemia. No clinical angina was noted. Doppler Measurements & Calculations TR max jill: 348.8 cm/sec TR max P.7 mmHg Interpretation Summary The estimated ejection fraction is 65 %. Normal, adequate, dobutamine echocardiogram. Negative for ischemia by EKG and echocardiographic anterior. No anginal symptoms noted. Rare PVCs noted. Patient had transient atrial fibrillation and supraventricular tachycardia during infusion into recovery. This spontaneously converted back to normal sinus rhythm. Decreased sensitivity due to very poor echo windows requiring Definity enhancing agent. Final LVEF is 75%. No complications. Test terminated due to attainment of target heart rate. The study was technically difficult. Contrast injection was performed. Ordering Physician: Elier Khanna Referring Physician: Francisco Alcazar Performed By: Doris Metzger RDCS Cardiac [facility]: 11/02/2013 ([facility] Nonobstructive CAD Elevated right and left filling pressures No constrictive physiology reported CT Surgery: [facility] (Remote) Assessment/Plan 1. Bradycardia The patient has had recurrent bradycardia. This may be secondary to a combination of factors including his medical therapy as well as his electrolyte disturbance with hyperkalemia. At the moment his rate limiting medications are being placed on hold. He is undergoing dialysis to assist with his hyperkalemia correction. Over time depending upon his rate and rhythm he may need initiation of his medical therapy as deemed appropriate with respect to rate control and rhythm control. However depending upon his clinical course if he has a bradycardia tacky scenario that he may need to be considered for possible permanent pacemaker placement to assist with his bradycardia events to allow him to take his medications as needed for his tacky events. 2. PSVT He has a history of PSVT. At the moment he is being monitored. Depending upon his clinical course additional medical therapy will be needed as appropriate. 3. Atrial fibrillation/flutter Has a history of atrial fibrillation/flutter. He has undergone EPS/RFA at 2 different tertiary care center institutions. He will continue medical therapy and follow-up as deemed appropriate. 4. Status post EPS/RFA Again, he has undergone EPS/RFA at 2 different tertiary institutions in the past. 5. PDA status post repair-remote He has a history of a PDA closure. The details of his surgery are unavailable at this time. 6. VSD status post repair-remote He has a history of a VSD closure. The details of his surgery are unavailable at this time. 7. Hyperlipidemia He will continue risk factor evaluation and care as deemed appropriate. 8. Hypertension His blood pressure will be monitored. His medications will be adjusted as needed taking into consideration any concerns with his cardiac rate and rhythm. 9. Diabetes mellitus He will continue evaluation care per internal medicine. 10. LASHAWN He does have a history of LASHAWN. He will continue evaluation care per internal medicine. 11. Pulmonary hypertension He has been evaluated for pulmonary hypertension in the past both noninvasively and invasively. At the moment it appears he has been delegated for continued medical therapy. As noted before he could be evaluated at a tertiary care center for consideration for other forms of therapy including vasodilator therapy, etc., as deemed appropriate. 12. Right heart failure due to pulmonary hypertension He does have a history of CHF which may be compatible with right heart failure secondary to cor pulmonale secondary to pulmonary hypertension. He will continue medical management and hemodialysis care. 13. End-stage renal disease on chronic hemodialysis He is proceeding with hemodialysis today to assist with his hyperkalemia. 14. Hyperkalemia Again his hyperkalemia may be a contributing factor to his bradycardia. Thus he is proceeding with hemodialysis today to assist with correcting his electrolytes to hopefully help correct his underlying cardiac rate disturbance. The patient's case was discussed and reviewed with the patient, his spouse, and Dr. Vazqeuz. This note was generated using a voice recognition system and there may be incorrect words, spelling or punctuation that were not noted when reviewing the office note prior to saving. Procedure Criteria Procedure Type: Elective COVID Risk Discussion: The surgeon/proceduralist and patient have discussed in detail the risk of exposure to and/or potential harm posed by the COVID-19 virus with having a surgery/procedure at this time versus the risk of delaying the surgery/procedure. It is not possible to know either the risk of delaying the surgery or procedure or chance of getting an infection with perfect accuracy, but a joint decision was made between the patient and the surgeon/proceduralist to proceed at this time with the scheduled surgery/procedure as indicated on the consent form.
--- NOTE | 2020-07-09 15:04 | CASEMGMT ---
According to the [facility] website, the following are in-network tertiary facilities: [facility], [facility], [facility], [facility], [facility], [facility], and . Angel MEJIA CM
[2020-07-09 15:50] LABS: Prothrombin Time (Protime)PT. 22.1 SECONDS (11.7-14.9)
[2020-07-09 18:06] LABS: Bedside Glucose 114 mg/dL (70-110)
--- NOTE | 2020-07-09 18:16 | DIALYSIS ---
Pt completed 4 hours hemodialysis via right chest tunneled dialysis CVC, 4 liters fluid removed. CVC dressing changed, site clean and dry. CVC lumens flushed with NS and locked with heparin per order. Pt tolerated treatment without difficulty.
[2020-07-09] MEDS: Furosemide 80 MG Tablet PO (18:43)
[2020-07-09 20:13] LABS: Anion Gap 7 (5-15); BUN 29 mg/dL (7-18); BUN/Creat Ratio 6.2 RATIO (10-20); Calcium,Total 8.4 mg/dL (8.5-10.1); Chloride 95 mmol/L (98-107); Creatinine, Serum 4.71 mg/dL (0.70-1.30); EST Glomerular Filtration Rate 13 mL/min (>60); Est Glom Filt Rate - Afr Amer 16 mL/min (>60); Estimated Creatinine Clearance 15.73 ml/min; Glucose 165 mg/dL (74-106); Potassium 3.7 mmol/L (3.5-5.1); Sodium Level 130 mmol/L (136-145)
[2020-07-09] MEDS: Tamsulosin HCl 0.4 MG Capsule PO (22:31)
[2020-07-09] MEDS: MELATONIN 3 MG TABLET PO (22:31)
[2020-07-09] MEDS: Atorvastatin Calcium 20 MG Tablet PO (22:31)
[2020-07-09 22:35] LABS: Bedside Glucose 117 mg/dL (70-110)
[2020-07-10] VITALS (9 sets, daily range): BP systolic 98–120; BP diastolic 46–54; PULSE 55–63; RESP 16–18; TEMP 36.3–36.8; O2SAT 99–100
[2020-07-10 06:34] LABS: International Normalized Ratio 1.8
[2020-07-10 06:49] LABS: Anion Gap 6 (5-15); BUN 41 mg/dL (7-18); BUN/Creat Ratio 6.4 RATIO (10-20); Calcium,Total 8.6 mg/dL (8.5-10.1); Chloride 93 mmol/L (98-107); Creatinine, Serum 6.45 mg/dL (0.70-1.30); EST Glomerular Filtration Rate 9 mL/min (>60); Est Glom Filt Rate - Afr Amer 11 mL/min (>60); Estimated Creatinine Clearance 11.49 ml/min; Glucose 120 mg/dL (74-106); Potassium 4.8 mmol/L (3.5-5.1); Sodium Level 128 mmol/L (136-145)
[2020-07-10] MEDS: Insulin Lispro 100 UNIT/ML INSULN.PEN 7 UNIT SC (08:16)
[2020-07-10] MEDS: Multivitamins,Ther W-Minerals Tablet 1 TABLET PO (08:20)
[2020-07-10 08:25] LABS: Bedside Glucose 123 mg/dL (70-110)
--- NOTE | 2020-07-10 08:32 | PN.CARD_ITS ---
Subjectve: The patient is awake and alert. He states he feels better today than yesterday. Objective: Vital Signs Temp Pulse Resp BP Pulse Ox 97.3 F L 63 16 98/46 L 99 07/10/20 04:25 07/10/20 04:25 07/10/20 04:25 07/10/20 04:25 07/10/20 04:25 Oxygen Flow Rate (L/min) 3 Oxygen Delivery Method Nasal Cannula Weight: 290 lb 9.108 oz Body Mass Index (BMI) 45.3 Finger Stick Blood Glucose 135 Intake and Output for Last 24 Hours 07/08/20 07/09/20 07/10/20 23:59 23:59 23:59 Intake Total 30 / 150 120 / 120 Output Total 4000 / 4000 0 / 0 Balance -3970 / -3850 120 / 120 General: Awake, Alert, Oriented x 3, Cooperative, No Acute Distress, Obese HEENT: Atraumatic, Normocephalic, PERRL, EOMI, Sclera Non Icteric Neck: Supple, Good ROM, No JVD Lungs: Clear to auscultation Cardiovascular: Regular Rhythm, Normal S1, Normal S2 Murmur Murmur: Grade 2/6, Harsh, Mid Systolic, LLSB, LVOT, Sternal Notch Abdomen: Bowel Sounds Present, Soft Extremities: Mild RLE Edema, Mild LLE Edema Psych/Mental Status: Appropriate 07/09/20 09:35: WBC 9.0, RBC 3.48 L, Hgb 11.2 L, Hct 33.8 L, MCV 97.1 H, MCH 32.2 H, MCHC 33.1, Plt Count 177, MPV 9.7, Immature Gran % (Auto) 0.600, Neut % (Auto) 69.0, Lymph % (Auto) 14.4 L, [place] % (Auto) 14.1 H, Eos % (Auto) 1.3, Baso % (Auto) 0.6, Absolute Neuts (auto) 6.2, Nucleated RBC % 0 07/09/20 09:35: Sodium 129 L, Potassium 6.3 H*, Chloride 92 L, Carbon Dioxide 27.0, Anion Gap 10, BUN 89 H, Creatinine 9.85 H*, Est GFR (MDRD) Af Amer 7 L, Est GFR (MDRD) Non-Af 6 L, BUN/Creatinine Ratio 9.0 L, Glucose 154 H, Calcium 9.0, Total Bilirubin 0.70, Troponin I < 0.015 07/09/20 09:35: PT 22.1 H, INR 2.0 07/09/20 18:58: Sodium 130 L, Potassium 3.7, Chloride 95 L, Carbon Dioxide 28.0, Anion Gap 7, BUN 29 H, Creatinine 4.71 H, Est GFR (MDRD) Af Amer 16 L, Est GFR (MDRD) Non-Af 13 L, BUN/Creatinine Ratio 6.2 L, Glucose 165 H, Calcium 8.4 L 07/10/20 05:45: PT 20.0 H, INR 1.8 07/10/20 05:45: Sodium 128 L, Potassium 4.8, Chloride 93 L, Carbon Dioxide 29.0, Anion Gap 6, BUN 41 H, Creatinine 6.45 H, Est GFR (MDRD) Af Amer 11 L, Est GFR (MDRD) Non-Af 9 L, BUN/Creatinine Ratio 6.4 L, Glucose 120 H, Calcium 8.6 Rhythm: Sinus rhythm/sinus bradycardia Medical Necessity - Tobacco Use Smoking Status: Former smoker Assessment/Plan 1. Bradycardia At the present time the patient's bradycardia appears to have improved with respect to his underlying heart rate. At the moment he will refrain from beta-jackson therapy. If he does require beta-jackson therapy in the future for recurrent paroxysmal tachydysrhythmias then he was advised to attempt a lower dose beta-jackson such as metoprolol XL 25 mg instead of metoprolol XL 50 mg. He will also decrease his amiodarone dose from 200 mg twice daily to 200 mg daily. Depending upon his future cardiac rate and response to his medications, his electrolyte disturbances such as hyperkalemia, etc. he may or may not eventually need to be considered for further support such as permanent pacemaker and/or repeat EP consultation. 2. PSVT He has a history of PSVT. At the moment he is being monitored. He states his tachydysrhythmia events are relatively rare and brief usually lasting no more than 20 minutes. He notes some of the events he can terminate with a Valsalva maneuver. Thus, he will attempt to refrain from using his beta- jackson as needed therapy if at all possible. 3. Atrial fibrillation/flutter Has a history of atrial fibrillation/flutter. He has undergone EPS/RFA at 2 different tertiary care center institutions. Again he will attempt to refrain from using his beta-jackson therapy if at all possible. If need be he has been advised to use a lower dose of his beta- jackson. His amiodarone dose will be decreased as noted above. If he continues to have concerns of both bradycardia and tachydysrhythmias then he may need to be considered for further support such as permanent pacemaker and/or if need be additional EP input. 4. Status post EPS/RFA Again, he has undergone EPS/RFA at 2 different tertiary institutions in the past. 5. PDA status post repair-remote He has a history of a PDA closure. The details of his surgery are unavailable at this time. 6. VSD status post repair-remote He has a history of a VSD closure. The details of his surgery are unavailable at this time. 7. Hyperlipidemia He will continue risk factor evaluation and care as deemed appropriate. 8. Hypertension His blood pressure will be monitored. His medications will be adjusted as needed taking into consideration any concerns with his cardiac rate and rhythm. 9. Diabetes mellitus He will continue evaluation care per internal medicine. 10. LASHAWN He does have a history of LASHAWN. He will continue evaluation care per internal medicine. 11. Pulmonary hypertension He has been evaluated for pulmonary hypertension in the past both noninvasively and invasively. At the moment it appears he has been delegated for continued medical therapy. As noted before he could be evaluated at a tertiary care center for consideration for other forms of therapy including vasodilator therapy, etc., as deemed appropriate. 12. Right heart failure due to pulmonary hypertension He does have a history of CHF which may be compatible with right heart failure secondary to cor pulmonale secondary to pulmonary hypertension. He will continue medical management and hemodialysis care. 13. End-stage renal disease on chronic hemodialysis He is proceeding with hemodialysis today to assist with his hyperkalemia. 14. Hyperkalemia His potassium level is improved status post dialysis. As this may be a contributing factor to his bradycardia dysrhythmia it is important for him to have input from his other physicians regarding his potassium levels and control of his potassium levels. Comment: Otherwise, there are no additional cardiovascular diagnostic studies/procedures planned for this patient at this time barring a change in his clinical course. He will need continued future outpatient cardiovascular follow-up. This note was generated using a voice recognition system and there may be incorrect words, spelling or punctuation that were not noted when reviewing the office note prior to saving.
[2020-07-10] MEDS: Amiodarone 200 MG Tablet PO (09:02)
[2020-07-10] MEDS: Furosemide 80 MG Tablet PO ×2 (09:02→17:17)
--- NOTE | 2020-07-10 10:31 | PCM.PN.REN ---
Patient Problems: Active and Suspected Problems (Last Reviewed 07/09/20 @ 12:[address] Fidel Vazquez, DO) Bradycardia (Acute) ESRD (end stage renal disease) on dialysis (Acute) Right heart failure due to pulmonary hypertension (Acute) Acute renal failure superimposed on chronic kidney disease, on chronic dialysis (Acute) Hyperkalemia (Acute) Hyperkalemia (Acute) Subjective: Following for ESRD. The patient feels better today. He is less short of breath. There is no palpitation, chest pain, nausea or edema. - Physical Exam Vitals/I&O's: Vital Signs Temp Pulse Resp BP Pulse Ox 97.5 F L 61 16 110/48 L 99 07/10/20 09:00 07/10/20 09:00 07/10/20 09:00 07/10/20 09:00 07/10/20 09:00 Oxygen Flow Rate (L/min) 3 Oxygen Delivery Method Nasal Cannula Weight: 131.8 kg Body Mass Index (BMI) 45.3 Finger Stick Blood Glucose 135 Intake and Output for Last 24 Hours 07/08/20 07/09/20 07/10/20 23:59 23:59 23:59 Intake Total 30 / 150 120 / 120 Output Total 4000 / 4000 0 / 0 Balance -3970 / -3850 120 / 120 General: Alert, Oriented x3, Cooperative, No apparent distress HEENT: Atraumatic, PERRLA, Normocephalic Oral: Moist Mucosa Neck: Supple Lungs: Clear to auscultation Cardiovascular: Normal S1, Normal S2, No murmurs Abdomen: Bowel Sounds Present, Soft, Non Tender Extremities: No edema Skin: No rashes Microbiology Past 72 Hours 07/09/20 12:20 Mucosa - Nose SARS-CoV-2 Antigen (Rapid) - Final Laboratory Results 07/09/20 09:35: Sodium 129 L, Potassium 6.3 H*, Chloride 92 L, Carbon Dioxide 27.0, Anion Gap 10, BUN 89 H, Creatinine 9.85 H*, Estim Creat Clear Calc 7.52, Est GFR (MDRD) Af Amer 7 L, Est GFR (MDRD) Non-Af 6 L, BUN/Creatinine Ratio 9.0 L, Glucose 154 H, Calcium 9.0, Total Bilirubin 0.70, AST 7 L, ALT 34, Alkaline Phosphatase 63, Troponin I < 0.015, Total Protein 7.3, Albumin 3.6, Globulin 3.7, Albumin/Globulin Ratio 1.0 07/09/20 09:35: PT 22.1 H, INR 2.0 07/09/20 18:00: POC Glucose 114 H 07/09/20 18:58: Sodium 130 L, Potassium 3.7, Chloride 95 L, Carbon Dioxide 28.0, Anion Gap 7, BUN 29 H, Creatinine 4.71 H, Estim Creat Clear Calc 15.73, Est GFR (MDRD) Af Amer 16 L, Est GFR (MDRD) Non-Af 13 L, BUN/Creatinine Ratio 6.2 L, Glucose 165 H, Calcium 8.4 L 07/09/20 22:26: POC Glucose 117 H 07/10/20 05:45: PT 20.0 H, INR 1.8 07/10/20 05:45: Sodium 128 L, Potassium 4.8, Chloride 93 L, Carbon Dioxide 29.0, Anion Gap 6, BUN 41 H, Creatinine 6.45 H, Estim Creat Clear Calc 11.49, Est GFR (MDRD) Af Amer 11 L, Est GFR (MDRD) Non-Af 9 L, BUN/Creatinine Ratio 6.4 L, Glucose 120 H, Calcium 8.6 07/10/20 08:15: POC Glucose 123 H Current Medications Acetaminophen (Acetaminophen 325 Mg Tablet) 650 mg PO Q6H PRN PRN PRN Reason: PAIN 1-10/FEVER Amiodarone HCl (Amiodarone 200 Mg Tablet) 200 mg PO DAILY [facility] Last Admin: 07/10/20 09:02 Dose: 200 mg Documented by: Atorvastatin Calcium (Atorvastatin Calcium 20 Mg Tablet) 20 mg PO QHS [facility] Last Admin: 07/09/20 22:31 Dose: 20 mg Documented by: Docusate Sodium (Docusate Sodium 100 Mg Capsule) 100 mg PO DAILY PRN PRN PRN Reason: STOOL SOFTNER Furosemide (Furosemide 80 Mg Tablet) 80 mg PO BID@1000,1800 [facility] Last Admin: 07/10/20 09:02 Dose: 80 mg Documented by: Calcium Gluconate 3 gm/ N/A 30 mls @ 600 mls/hr IV .Q3M PRN PRN Reason: Continued EKG changes Last Infusion: 07/09/20 12:19 Dose: Infused Documented by: Insulin Glargine (Insulin Glargine 100 Units/Ml Pen) 15 units SC BID [facility] Last Admin: 07/10/20 08:17 Dose: 10 units Documented by: Insulin Human Lispro (Insulin Lispro 100 Unit/Ml Insuln.Pen) 0 unit SC ACHS [facility]; Protocol Last Admin: 07/10/20 08:19 Dose: Not Given Documented by: Insulin Human Lispro (Insulin Lispro 100 Unit/Ml Insuln.Pen) 5 unit SC LUNCH [facility] Insulin Human Lispro (Insulin Lispro 100 Unit/Ml Insuln.Pen) 6 unit SC DINNER [facility] Last Admin: 07/09/20 18:09 Dose: Not Given Documented by: Insulin Human Lispro (Insulin Lispro 100 Unit/Ml Insuln.Pen) 7 unit SC BREAKFAST [facility] Last Admin: 07/10/20 08:16 Dose: 7 units Documented by: Melatonin (Melatonin 3 Mg Tablet) 3 mg PO QHS PRN PRN Reason: INSOMNIA Last Admin: 07/09/20 22:31 Dose: 3 mg Documented by: Multivitamins/Minerals (Multivitamins,Ther W-Minerals Tablet) 1 tablet PO DAILY@0800 [facility] Last Admin: 07/10/20 08:20 Dose: 1 tablet Documented by: Sodium Chloride (0.9% Saline Lock 10 Ml Syringe) 10 - 40 ml IV UD PRN PRN Reason: SALINE FLUSH Tamsulosin HCl (Tamsulosin Hcl 0.4 Mg Capsule) 0.4 mg PO QHS [facility] Last Admin: 07/09/20 22:31 Dose: 0.4 mg Documented by: Warfarin Sodium (Warfarin 3 Mg Tablet) 3 mg PO DAILY@1700 [facility] Last Admin: 07/09/20 18:43 Dose: 3 mg Documented by: Medical Necessity - Tobacco Use Smoking Status: Former smoker Assessment/Plan All Active Problems (Last Reviewed 07/09/20 @ 12:[address] Fidel Vazquez, DO) Bradycardia (Acute) ESRD (end stage renal disease) on dialysis (Acute) Right heart failure due to pulmonary hypertension (Acute) Acute renal failure superimposed on chronic kidney disease, on chronic dialysis (Acute) Hyperkalemia (Acute) Hyperkalemia (Acute) 1. ESRD. The patient dialyzes at [facility] on Wednesday, and Wednesday schedule. The patient was dialyzed yesterday. He tolerated dialysis well. No need for dialysis today. I will plan on dialyzing the patient again tomorrow. 2. Hyperkalemia. The patient is usually on a 3K dialysate at the kidney center. However, his potassium level was 6.3 mEq/L on presentation. Therefore, I used a lower potassium dialysate yesterday. Potassium level is 4.8 mEq/L today. Recheck potassium level tomorrow. 3. Hyponatremia. This is likely due to end-stage renal disease. Sodium level is 128 mmol/L today. He is asymptomatic from hyponatremia. Sodium level should improve with dialysis tomorrow. In the meantime, I will restrict fluid to 1.5 L/day. 4. Bradycardia. Likely related to beta-jackson. The patient is also hyperkalemic. As mentioned above, we will use a lower potassium dialysate today. 5. Anemia. The patient has anemia of chronic kidney disease. His hemoglobin is 11.2 g/dL which is acceptable for dialysis patient. Continue TAMICA on his usual outpatient schedule. He is not due for TAMICA for another 1 week[address]iscuss[address] plan with Dr. Vazquez
--- NOTE | 2020-07-10 10:42 | PN_ITS ---
Patient Problems: Active and Suspected Problems (Last Reviewed 07/09/20 @ 12:[address] Fidel Vazquez, DO) Bradycardia (Acute) ESRD (end stage renal disease) on dialysis (Acute) Right heart failure due to pulmonary hypertension (Acute) Acute renal failure superimposed on chronic kidney disease, on chronic dialysis (Acute) Hyperkalemia (Acute) Hyperkalemia (Acute) Subjective: Feeling better. Tolerated HD on 07/09. Vitals/I&O's: Vital Signs Temp Pulse Resp BP Pulse Ox 36.4 C L 61 16 110/48 L 99 07/10/20 09:00 07/10/20 09:00 07/10/20 09:00 07/10/20 09:00 07/10/20 09:00 Oxygen Flow Rate (L/min) 3 Oxygen Delivery Method Nasal Cannula Weight: 131.8 kg Body Mass Index (BMI) 45.3 Finger Stick Blood Glucose 135 Intake and Output for Last 24 Hours 07/08/20 07/09/20 07/10/20 23:59 23:59 23:59 Intake Total 30 / 150 120 / 120 Output Total 4000 / 4000 0 / 0 Balance -3970 / -3850 120 / 120 General: Alert, No apparent distress HEENT: Atraumatic, Normocephalic Oral: Moist Mucosa, No Gingival or Mucosal Lesions/ Ulcerations Neck: No Nodes, Thyroid Normal Size and Texture Lungs: Clear to auscultation, Normal air movement, No rhonchi, No wheeze, No rales Cardiovascular: Regular rate, Regular Rhythm, Normal S1, Normal S2, No murmurs Abdomen: Bowel Sounds Present, Soft, Non Tender, Non-Distended, No Hepato- splenomegaly Extremities: No edema, No Calf Tenderness Skin: No rashes, No breakdown Psych/Mental Status: Normal Affect, Appropriate Microbiology Past 72 Hours 07/09/20 12:20 Mucosa - Nose SARS-CoV-2 Antigen (Rapid) - Final Laboratory Results 07/09/20 09:35: PT 22.1 H, INR 2.0 07/09/20 18:00: POC Glucose 114 H 07/09/20 18:58: Sodium 130 L, Potassium 3.7, Chloride 95 L, Carbon Dioxide 28.0, Anion Gap 7, BUN 29 H, Creatinine 4.71 H, Estim Creat Clear Calc 15.73, Est GFR (MDRD) Af Amer 16 L, Est GFR (MDRD) Non-Af 13 L, BUN/Creatinine Ratio 6.2 L, Glucose 165 H, Calcium 8.4 L 07/09/20 22:26: POC Glucose 117 H 07/10/20 05:45: PT 20.0 H, INR 1.8 07/10/20 05:45: Sodium 128 L, Potassium 4.8, Chloride 93 L, Carbon Dioxide 29.0, Anion Gap 6, BUN 41 H, Creatinine 6.45 H, Estim Creat Clear Calc 11.49, Est GFR (MDRD) Af Amer 11 L, Est GFR (MDRD) Non-Af 9 L, BUN/Creatinine Ratio 6.4 L, Glucose 120 H, Calcium 8.6 07/10/20 08:15: POC Glucose 123 H Current Medications Acetaminophen (Acetaminophen 325 Mg Tablet) 650 mg PO Q6H PRN PRN PRN Reason: PAIN 1-10/FEVER Amiodarone HCl (Amiodarone 200 Mg Tablet) 200 mg PO DAILY [facility] Last Admin: 07/10/20 09:02 Dose: 200 mg Documented by: Atorvastatin Calcium (Atorvastatin Calcium 20 Mg Tablet) 20 mg PO QHS [facility] Last Admin: 07/09/20 22:31 Dose: 20 mg Documented by: Docusate Sodium (Docusate Sodium 100 Mg Capsule) 100 mg PO DAILY PRN PRN PRN Reason: STOOL SOFTNER Furosemide (Furosemide 80 Mg Tablet) 80 mg PO BID@1000,1800 [facility] Last Admin: 07/10/20 09:02 Dose: 80 mg Documented by: Calcium Gluconate 3 gm/ N/A 30 mls @ 600 mls/hr IV .Q3M PRN PRN Reason: Continued EKG changes Last Infusion: 07/09/20 12:19 Dose: Infused Documented by: Insulin Glargine (Insulin Glargine 100 Units/Ml Pen) 15 units SC BID [facility] Last Admin: 07/10/20 08:17 Dose: 10 units Documented by: Insulin Human Lispro (Insulin Lispro 100 Unit/Ml Insuln.Pen) 0 unit SC ACHS [facility]; Protocol Last Admin: 07/10/20 08:19 Dose: Not Given Documented by: Insulin Human Lispro (Insulin Lispro 100 Unit/Ml Insuln.Pen) 5 unit SC LUNCH [facility] Insulin Human Lispro (Insulin Lispro 100 Unit/Ml Insuln.Pen) 6 unit SC DINNER [facility] Last Admin: 07/09/20 18:09 Dose: Not Given Documented by: Insulin Human Lispro (Insulin Lispro 100 Unit/Ml Insuln.Pen) 7 unit SC BREAKFAST [facility] Last Admin: 07/10/20 08:16 Dose: 7 units Documented by: Melatonin (Melatonin 3 Mg Tablet) 3 mg PO QHS PRN PRN Reason: INSOMNIA Last Admin: 07/09/20 22:31 Dose: 3 mg Documented by: Multivitamins/Minerals (Multivitamins,Ther W-Minerals Tablet) 1 tablet PO DAILY@0800 [facility] Last Admin: 07/10/20 08:20 Dose: 1 tablet Documented by: Sodium Chloride (0.9% Saline Lock 10 Ml Syringe) 10 - 40 ml IV UD PRN PRN Reason: SALINE FLUSH Tamsulosin HCl (Tamsulosin Hcl 0.4 Mg Capsule) 0.4 mg PO QHS [facility] Last Admin: 07/09/20 22:31 Dose: 0.4 mg Documented by: Warfarin Sodium (Warfarin 3 Mg Tablet) 3 mg PO DAILY@1700 [facility] Last Admin: 07/09/20 18:43 Dose: 3 mg Documented by: STROKE Vital Signs/Narrative: Vital Signs Temp Pulse Resp BP Pulse Ox 07/10/20 09:00 36.4 C L 61 16 110/48 L 99 07/10/20 08:00 57 L Medical Necessity - Tobacco Use Smoking Status: Former smoker Assessment/Plan All Active Problems (Last Reviewed 07/09/20 @ 12:[address] Fidel Vazquez, DO) Bradycardia (Acute) ESRD (end stage renal disease) on dialysis (Acute) Right heart failure due to pulmonary hypertension (Acute) Acute renal failure superimposed on chronic kidney disease, on chronic dialysis (Acute) Hyperkalemia (Acute) Hyperkalemia (Acute) 1. bradycardia imrpoved likely iatrogenic from taking metoprolol succinate and amiodarone plan: * initially held amiodarone and metoprolol (metoprolol succinate was discontinued last admission, but he the night before admission because of tachycardia) * correct electrolyte derangements * monitor * cardiology restarted amiodarone 200 daily starting today * monitor and if no further events, likely dc on 07/11 2. hyperkalemia resolved with medical treatment and HD per pt, he is compliant with HD and diet received treatment in ED 3. ESRD received HD on 07/09 [facility] Anne, plan for HD on 07/11 (normal date) 4. DM2 fair control continue home meds (insulin) 5. Afib amio resumed at 200 daily by cards continue warfarin check INR 6. VTE prophylaxis: on warfarin 7. Advanced care planning: [place] pt, he wishes to be full code. 8. Weakness: improved Suspect due to bradycardia. COVID-19 negative OBSV E&M: 01624 Subsequent observation care L2
[2020-07-10] MEDS: Insulin Lispro 100 UNIT/ML INSULN.PEN SC ×2 (11:48→17:17)
[2020-07-10 11:55] LABS: Bedside Glucose 117 mg/dL (70-110)
--- NOTE | 2020-07-10 14:15 | CASEMGMT ---
ROBERTO CM in to complete MARIA form with patient. RN JENNYFER explained MARIA form to patient, patient voiced understanding. Patient signed MARIA Form and placed in chart. Patient provided with copy of signed MARIA form. Patient had no further questions or concerns at this time.
--- NOTE | 2020-07-10 14:24 | CASEMGMT ---
Addendum entered by Lani Nava 07/10/20 14:28: ROBERTO BURGER updated patient regarding possible HD at [facility] tomorrow if patient is appropriate for discharge in am. Original Note: ROBERTO BURGER call [facility] to confirm patient chair time. Patient receives HD TTS 1000. ROBERTO BURGER updated [place] of patient possibly discharging tomorrow. [facility] states that they could take patient for HD at the latest 12NOON. ROBERTO BURGER updated hospitalist requesting that if patient is ready for discharge in am to be discharged by chair time to attend outpatient HD.
[2020-07-10] MEDS: Insulin Lispro 100 UNIT/ML INSULN.PEN 6 UNIT SC (17:18)
[2020-07-10 17:25] LABS: Bedside Glucose 155 mg/dL (70-110)
[2020-07-10] MEDS: Atorvastatin Calcium 20 MG Tablet PO (21:13)
[2020-07-10] MEDS: Tamsulosin HCl 0.4 MG Capsule PO (21:13)
[2020-07-10 22:36] LABS: Bedside Glucose 122 mg/dL (70-110)
[2020-07-11 03:00] VITALS: PULSE 57
[2020-07-11 03:15] VITALS: BP 123/58; PULSE 58; RESP 16; TEMP 36.4; O2SAT 99
[2020-07-11 06:23] LABS: Absolute Lymphocyte Count 1.34 X10^3/uL (0.83-4.51); Absolute Neutrophil Count 4.3 X10^3/uL (2.0-7.7); Basophil# 0.03 X10^3/uL; Basophil% 0.4 % (0-1); Eosinophil# 0.18 X10^3/uL; Eosinophils% 2.6 % (0-5); Hematocrit 32.7 % (40-54); Hemoglobin 10.9 g/dL (13.0-16.5); Lymphocyte # 1.34 X10^3/ul (4.0); Lymphocyte % 19.2 % (19-41); Mean Corp Hgb Conc 33.3 g/dL (32-36); Mean Corpuscular Hgb 32.1 pg (27.0-32.0); Mean Corpuscular Volume 96.2 fL (80-94); Mean Platelet Vol. 8.6 fl (6.2-12.0); Monocyte# 1.07 X10^3/uL; Monocyte% 15.4 % (0-10); NRBC Flagged by Analyzer 0 % (0-5); Neutrophil # 4.32 X10^3/uL (2.7-7.7); Platelet Count 126 K/mm3 (150-450); RBC Distribution Width CV 13.5 % (11.6-14.6); RBC Distribution Width SD 47.9 fl (35.1-43.9)
[2020-07-11 06:31] LABS: International Normalized Ratio 1.7; Prothrombin Time (Protime)PT. 19.5 SECONDS (11.7-14.9)
[2020-07-11 06:58] LABS: Anion Gap 13 (5-15); BUN 66 mg/dL (7-18); BUN/Creat Ratio 7.7 RATIO (10-20); Calcium,Total 8.5 mg/dL (8.5-10.1); Chloride 92 mmol/L (98-107); Creatinine, Serum 8.57 mg/dL (0.70-1.30); EST Glomerular Filtration Rate 7 mL/min (>60); Est Glom Filt Rate - Afr Amer 8 mL/min (>60); Estimated Creatinine Clearance 8.65 ml/min; Glucose 130 mg/dL (74-106); Potassium 5.4 mmol/L (3.5-5.1); Sodium Level 132 mmol/L (136-145)
[2020-07-11 07:00] VITALS: PULSE 60
--- NOTE | 2020-07-11 07:54 | DCINST_ITS ---
- Discharge Diagnoses Current Active Problems: Current Active and Chronic Problems (Last Reviewed 07/09/20 @ 12:[address] 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 Sherif Espinoza @ [facility]: normal coronaries, mildly elevated PA pressures Paroxysmal SVT (supraventricular tachycardia) (Chronic) Atrial fibrillation (Chronic) History of atrial flutter (Chronic) Attempted atrial flutter ablation @ [facility] X 1 in 1997 (unsuccessful), followed by Atrial flutter ablations X [address] Paul at [facility] in Apr and October of 1998 Chronic diastolic congestive heart failure (Chronic) History of patent ductus arteriosus as a child (Chronic) Repaired at age 3 years, done @ [facility] Nonrheumatic tricuspid valve regurgitation (Chronic) Leaflet used for VSD repair in past History of ventricular septal defect repair (Chronic) 1977 (pt approx age 18) using Dacron patch, done at [facility] Hyperlipidemia (Chronic) Hypertension (Chronic) Diabetes mellitus, type II (Chronic) History of radiofrequency ablation procedure for cardiac arrhythmia (Chronic) Attempted atrial flutter ablation @ [facility] X 1 (unsuccessful), followed by Atrial flutter ablations X [address] Paul at [facility] in Apr and October of 1998 Pulmonary hypertension, moderate to severe (Chronic) PASP 69 mmHg in September 2013 LASHAWN (obstructive sleep apnea) (Chronic) You will use the following diet at home:: Calorie/Carbohydrate Controlled (specify 1200, 1400, etc) - 1800, Renal (restricted protein/sodium) Your food should be the consistency of: Regular Call your doctor if you observe: Increased palpitations (irregular heartbeat), - - low heart rate (30-40 bpm). increased weakness. Allergies/Adverse Reactions: Allergies albuterol Adverse Reaction (Verified 07/09/20 09:11) increased heart rate increased heart rate. amoxicillin trihydrate [From Augmentin] Adverse Reaction (Verified 07/09/20 09:11) Diarrhea indomethacin [From Indocin] Adverse Reaction (Verified 07/09/20 09:11) Nausea potassium clavulanate [From Augmentin] Adverse Reaction (Verified 07/09/20 09:11) Diarrhea Medications to take at Discharge Atorvastatin Calcium 20 mg PO QHS 04/16/19 Insulin Lispro [Humalog KwikPen] 5 unit SC LUNCH insuln.pen 04/28/19 Insulin Lispro [Humalog KwikPen] 7 unit SC BREAKFAST insuln.pen 04/28/19 Docusate Sodium [Colace] 100 mg PO DAILY PRN PRN 11/21/19 Melatonin 3 mg PO QHS PRN 11/21/19 Furosemide [Lasix] 80 mg PO BID@1000,1800 12/29/19 Insulin Glargine [Lantus SoloStar Pen] 10 units SC BID 12/29/19 Insulin Lispro [Humalog KwikPen] 6 unit SC DINNER 12/29/19 Insulin Lispro [Humalog KwikPen] See Protocol SC ACHS 12/29/19 Tamsulosin HCl [Flomax] 0.4 mg PO QHS 12/29/19 Warfarin [Coumadin] 3 mg PO DAILY 06/10/20 Amiodarone HCl [Cordarone] 200 mg PO DAILY #30 tablet 07/11/20 Metoprolol Tartrate [Lopressor (beta jackson)] 12.5 mg PO DAILY PRN #10 tablet 07/11/20 The following prescriptions were given: Amiodarone HCl [Cordarone] 200 mg PO DAILY #30 tablet Transmission Status: Pending to [facility] Metoprolol Tartrate [Lopressor (beta jackson)] 12.5 mg PO DAILY PRN #10 tablet PRN Reason: heart rate greater than 130 at rest, sustained. Transmission Status: Pending to [facility] Primary Care Physician: Francisco Alcazar MD [Primary Care Provider] - Within 2 Weeks Test Results: Test results from this visit will be discussed in further detail at your follow- up appointment, if applicable. Please Follow Up With: Bhavin Osborn MD When: 2-4 weeks Proposed Discharge Date: 07/11/20
--- NOTE | 2020-07-11 07:56 | DS.PCM_ITS ---
Discharge Date and Diagnosis - Problem List Patient Problems: Active and Suspected Problems (Last Reviewed 07/09/20 @ 12:[address] Fidel Vazquez DO) Bradycardia (Acute) Hyperkalemia (Acute) Date of Admission: 07/09/20 Date of Discharge: 07/11/20 - Primary Discharge Diagnosis Acute Problems: Active Problems (Last Reviewed 07/09/20 @ 12:[address] Fidel Vazquez DO) 1. bradycardia improved and stable with HR in mid to high 50s likely iatrogenic from taking metoprolol succinate and amiodarone plan: * initially held amiodarone and metoprolol (metoprolol succinate was discontinued last admission, but he the night before admission because of tachycardia) * correct electrolyte derangements * monitor * cardiology restarted amiodarone 200 daily starting today * monitor and if no further events, likely dc on 07/11 2. hyperkalemia resolved with medical treatment and HD per pt, he is compliant with HD and diet received treatment in ED 3. ESRD received HD on 07/[address] Anne, plan for HD on 07/11 (normal date) 4. DM2 fair control continue home meds (insulin) 5. Afib amio resumed at 200 daily by cards continue warfarin INR slightly trending down. Continue to monitor, may need increase in dose from 3mg/day since he will be taking less amiodarone. - Secondary Discharge Diagnosis Chronic Problems: Chronic Problems (Last Reviewed 07/09/20 @ 12:[address] 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 Sherif Espinoza @ [facility]: normal coronaries, mildly elevated PA pressures Paroxysmal SVT (supraventricular tachycardia) (Chronic) Atrial fibrillation (Chronic) History of atrial flutter (Chronic) Attempted atrial flutter ablation @ [facility] X 1 in 1997 (unsuccessful), followed by Atrial flutter ablations X [address] Paul at [facility] in Apr and October of 1998 Chronic diastolic congestive heart failure (Chronic) History of patent ductus arteriosus as a child (Chronic) Repaired at age 3 years, done @ [facility] Nonrheumatic tricuspid valve regurgitation (Chronic) Leaflet used for VSD repair in past History of ventricular septal defect repair (Chronic) 1977 (pt approx age 18) using Dacron patch, done at [facility] Hyperlipidemia (Chronic) Hypertension (Chronic) Diabetes mellitus, type II (Chronic) History of radiofrequency ablation procedure for cardiac arrhythmia (Chronic) Attempted atrial flutter ablation @ [facility] X 1 (unsuccessful), followed by Atrial flutter ablations X [address] Paul at [facility] in Apr and October of 1998 Pulmonary hypertension, moderate to severe (Chronic) PASP 69 mmHg in September 2013 LASHAWN (obstructive sleep apnea) (Chronic) Hospital Course and Treatment [facility] Operations: None Procedures: Dialysis Summary of Care Provided: The patient is a 60 year old M feeling weak and bradycardic. The night before, patient had taken 50 mg metoprolol succinate because he was having palpitations and his heart rate was in the 1 teens to 120s. The following day, his heart rate was in the 30s and he is felt just very weak overall. Presented to the emergency room and is found to be hyperkalemic at 6.3. Received a battery of medications to help reverse that and his potassium did improve overall. Patient did receive dialysis as well which also facilitated reducing his potassium. Patient also with bradycardia was evaluated by cardiology and recommended decreasing his amiodarone from 200 twice daily to once daily. Is felt that his bradycardia was due to his twice daily dosing of amiodarone plus the usage of metoprolol succinate which during previous admission patient was advised to discontinue. The patient will continue with amiodarone 200 mg daily plus as needed metoprolol tartrate for sustained heart rate greater than 130 at rest. Patient to notify physician if he is having persistent palpitations. Patient is able to check his heart rate at home. Patient will be discharged today and will follow up with his dialysis center for his scheduled dialysis today. [] Patient Problems: Active and Suspected Problems (Last Reviewed 07/09/20 @ 12:[address] Fidel Vazquez, DO) Bradycardia (Acute) Hyperkalemia (Acute) - Physical Exam Vitals/I&O's: Vital Signs Temp Pulse Resp BP Pulse Ox 36.4 C L 60 16 123/58 H 99 07/11/20 03:15 07/11/20 07:00 07/11/20 03:15 07/11/20 03:15 07/11/20 03:15 Oxygen Flow Rate (L/min) 3 Oxygen Delivery Method Nasal Cannula Weight: 133.2 kg Body Mass Index (BMI) 45.3 Finger Stick Blood Glucose 135 Intake and Output for Last 24 Hours 07/09/20 07/10/20 07/11/20 23:59 23:59 23:59 Intake Total 30 / 150 1220 / 1420 320 / 320 Output Total 4000 / 4000 0 / 0 Balance -3970 / -3850 1220 / 1420 320 / 320 General: Alert, No apparent distress HEENT: Atraumatic, Normocephalic Oral: Moist Mucosa, No Gingival or Mucosal Lesions/ Ulcerations Neck: No Nodes, Thyroid Normal Size and Texture Lungs: Clear to auscultation, Normal air movement, No rhonchi, No wheeze Cardiovascular: Regular rate, Regular Rhythm, Normal S1, Normal S2, No murmurs Abdomen: Bowel Sounds Present, Soft, Non Tender, Non-Distended, No Hepato- splenomegaly Extremities: No edema, No Calf Tenderness Microbiology Past 72 Hours 07/09/20 12:20 Mucosa - Nose SARS-CoV-2 Antigen (Rapid) - Final Laboratory Results 07/10/20 08:15: POC Glucose 123 H 07/10/20 11:45: POC Glucose 117 H 07/10/20 17:16: POC Glucose 155 H 07/10/20 21:12: POC Glucose 122 H 07/11/20 06:17: WBC 7.0, RBC 3.40 L, Hgb 10.9 L, Hct 32.7 L, MCV 96.2 H, MCH 32.1 H, MCHC 33.3, RDW Std Deviation 47.9 H, RDW Coeff of Janiya 13.5, Plt Count 126 L, MPV 8.6, Immature Gran % (Auto) 0.400, Neut % (Auto) 62.0, Lymph % (Auto) 19.2, [place] % (Auto) 15.4 H, Eos % (Auto) 2.6, Baso % (Auto) 0.4, Absolute Neuts (auto) 4.3, Absolute Lymphs (auto) 1.34, Nucleated RBC % 0 07/11/20 06:17: PT 19.5 H, INR 1.7 07/11/20 06:17: Sodium 132 L, Potassium 5.4 H, Chloride 92 L, Carbon Dioxide 27.0, Anion Gap 13, BUN 66 H, Creatinine 8.57 H*, Estim Creat Clear Calc 8.65, Est GFR (MDRD) Af Amer 8 L, Est GFR (MDRD) Non-Af 7 L, BUN/Creatinine Ratio 7.7 L, Glucose 130 H, Calcium 8.5 Current Medications Acetaminophen (Acetaminophen 325 Mg Tablet) 650 mg PO Q6H PRN PRN PRN Reason: PAIN 1-10/FEVER Amiodarone HCl (Amiodarone 200 Mg Tablet) 200 mg PO DAILY [facility] Last Admin: 07/10/20 09:02 Dose: 200 mg Documented by: Atorvastatin Calcium (Atorvastatin Calcium 20 Mg Tablet) 20 mg PO QHS [facility] Last Admin: 07/10/20 21:13 Dose: 20 mg Documented by: Docusate Sodium (Docusate Sodium 100 Mg Capsule) 100 mg PO DAILY PRN PRN PRN Reason: STOOL SOFTNER Furosemide (Furosemide 80 Mg Tablet) 80 mg PO BID@1000,1800 [facility] Last Admin: 07/10/20 17:17 Dose: 80 mg Documented by: Calcium Gluconate 3 gm/ N/A 30 mls @ 600 mls/hr IV .Q3M PRN PRN Reason: Continued EKG changes Last Infusion: 07/09/20 12:19 Dose: Infused Documented by: Insulin Glargine (Insulin Glargine 100 Units/Ml Pen) 15 units SC BID [facility] Last Admin: 07/10/20 21:13 Dose: 15 units Documented by: Insulin Human Lispro (Insulin Lispro 100 Unit/Ml Insuln.Pen) 0 unit SC ACHS [facility]; Protocol Last Admin: 07/10/20 21:14 Dose: Not Given Documented by: Insulin Human Lispro (Insulin Lispro 100 Unit/Ml Insuln.Pen) 5 unit SC LUNCH [facility] Last Admin: 07/10/20 11:48 Dose: 5 u Documented by: Insulin Human Lispro (Insulin Lispro 100 Unit/Ml Insuln.Pen) 6 unit SC DINNER [facility] Last Admin: 07/10/20 17:18 Dose: 6 u Documented by: Insulin Human Lispro (Insulin Lispro 100 Unit/Ml Insuln.Pen) 7 unit SC BREAKFAST [facility] Last Admin: 07/10/20 08:16 Dose: 7 units Documented by: Melatonin (Melatonin 3 Mg Tablet) 3 mg PO QHS PRN PRN Reason: INSOMNIA Last Admin: 07/09/20 22:31 Dose: 3 mg Documented by: Multivitamins/Minerals (Multivitamins,Ther W-Minerals Tablet) 1 tablet PO DAILY@0800 [facility] Last Admin: 07/10/20 08:20 Dose: 1 tablet Documented by: Sodium Chloride (0.9% Saline Lock 10 Ml Syringe) 10 - 40 ml IV UD PRN PRN Reason: SALINE FLUSH Tamsulosin HCl (Tamsulosin Hcl 0.4 Mg Capsule) 0.4 mg PO QHS [facility] Last Admin: 07/10/20 21:13 Dose: 0.4 mg Documented by: Warfarin Sodium (Warfarin 3 Mg Tablet) 3 mg PO DAILY@1700 [facility] Last Admin: 07/10/20 17:17 Dose: 3 mg Documented by: Discharge Diet: 1800 Calorie Control Diet, Renal Diet Discharge Activity: Return to Normal Activity Call your doctor if you observe: Increased palpitations (irregular heartbeat), - - low heart rate (30-40 bpm). increased weakness. Home Medications: Medications to take at Discharge Atorvastatin Calcium 20 mg PO QHS 04/16/19 Insulin Lispro [Humalog KwikPen] 5 unit SC LUNCH insuln.pen 04/28/19 Insulin Lispro [Humalog KwikPen] 7 unit SC BREAKFAST insuln.pen 04/28/19 Docusate Sodium [Colace] 100 mg PO DAILY PRN PRN 11/21/19 Melatonin 3 mg PO QHS PRN 11/21/19 Furosemide [Lasix] 80 mg PO BID@1000,1800 12/29/19 Insulin Glargine [Lantus SoloStar Pen] 10 units SC BID 12/29/19 Insulin Lispro [Humalog KwikPen] 6 unit SC DINNER 12/29/19 Insulin Lispro [Humalog KwikPen] See Protocol SC ACHS 12/29/19 Tamsulosin HCl [Flomax] 0.4 mg PO QHS 12/29/19 Warfarin [Coumadin] 3 mg PO DAILY 06/10/20 Amiodarone HCl [Cordarone] 200 mg PO DAILY #30 tablet 07/11/20 Metoprolol Tartrate [Lopressor (beta jackson)] 12.5 mg PO DAILY PRN #10 tablet 07/11/20 Following Prescriptions Were Given to Patient: Amiodarone HCl [Cordarone] 200 mg PO DAILY #30 tablet Transmission Status: Pending to [facility] Metoprolol Tartrate [Lopressor (beta jackson)] 12.5 mg PO DAILY PRN #10 tablet PRN Reason: heart rate greater than 130 at rest, sustained. Transmission Status: Pending to [facility] Primary Care Physician: Francisco Alcazar MD [Primary Care Provider] - Within 2 Weeks Please Follow Up With: Bhavin Osborn MD When: 2-4 weeks Disposition: Home Minutes spent on discharge:: 28 Patient Condition:: Good Medical Necessity - Tobacco Use Smoking Status: Former smoker Meaningful Use Info Meaningful Use Diagnoses (Choose all that apply): None applicable OBSV E&M: 03216 Observation care discharge
[2020-07-11 08:15] LABS: Bedside Glucose 181 mg/dL (70-110)
[2020-07-11 08:31] VITALS: BP 106/43; PULSE 65; RESP 18; TEMP 36.2; O2SAT 99
[2020-07-11] MEDS: Insulin Lispro 100 UNIT/ML INSULN.PEN 7 UNIT SC (08:52)
[2020-07-11] MEDS: Insulin Lispro 100 UNIT/ML INSULN.PEN SC (08:52)
[2020-07-11] MEDS: Furosemide 80 MG Tablet PO (08:53)
[2020-07-11] MEDS: Amiodarone 200 MG Tablet PO (08:53)
--- NOTE | 2020-07-11 09:52 | PCM.PN.CARD ---
Subjectve: The patient was evaluated earlier this a.m. He was up and out of bed and with no new acute complaints. Objective: Vital Signs Temp Pulse Resp BP Pulse Ox 97.2 F L 65 18 106/43 L 99 07/11/20 08:31 07/11/20 08:31 07/11/20 08:31 07/11/20 08:31 07/11/20 08:31 Oxygen Flow Rate (L/min) 3 Oxygen Delivery Method Nasal Cannula Weight: 293 lb 10.491 oz Body Mass Index (BMI) 45.3 Finger Stick Blood Glucose 135 Intake and Output for Last 24 Hours 07/09/20 07/10/20 07/11/20 23:59 23:59 23:59 Intake Total 30 / 150 1220 / 1420 320 / 320 Output Total 4000 / 4000 0 / 0 Balance -3970 / -3850 1220 / 1420 320 / 320 General: Awake, Alert, Oriented x 3, Cooperative, No Acute Distress, Obese HEENT: Atraumatic, Normocephalic, PERRL, EOMI, Sclera Non Icteric Neck: Supple, Good ROM, No JVD Lungs: Clear to auscultation Cardiovascular: Regular Rhythm, Normal S1, Normal S2 Vascular: No Carotid Bruits Abdomen: Bowel Sounds Present, Soft Extremities: No edema Neurological: No Focal Motor or Sensory Deficit Psych/Mental Status: Appropriate 07/11/20 06:17: WBC 7.0, RBC 3.40 L, Hgb 10.9 L, Hct 32.7 L, MCV 96.2 H, MCH 32.1 H, MCHC 33.3, Plt Count 126 L, MPV 8.6, Immature Gran % (Auto) 0.400, Neut % (Auto) 62.0, Lymph % (Auto) 19.2, [place] % (Auto) 15.4 H, Eos % (Auto) 2.6, Baso % (Auto) 0.4, Absolute Neuts (auto) 4.3, Nucleated RBC % 0 07/11/20 06:17: PT 19.5 H, INR 1.7 07/11/20 06:17: Sodium 132 L, Potassium 5.4 H, Chloride 92 L, Carbon Dioxide 27.0, Anion Gap 13, BUN 66 H, Creatinine 8.57 H*, Est GFR (MDRD) Af Amer 8 L, Est GFR (MDRD) Non-Af 7 L, BUN/Creatinine Ratio 7.7 L, Glucose 130 H, Calcium 8.5 Rhythm: EKG: ECHO: Stress Test: Cardiac Cath: PCI: CT Surgery: Holter monitor: EPS: PPM: CXR: Chest CT Scan: Medical Necessity - Tobacco Use Smoking Status: Former smoker Assessment/Plan 1. Bradycardia At the present time the patient's bradycardia appears to have improved with respect to his underlying heart rate. At the moment he will refrain from beta-jackson therapy. If he does require beta-jackson therapy in the future for recurrent paroxysmal tachydysrhythmias then he was advised to attempt a lower dose beta-jackson such as metoprolol XL 25 mg instead of metoprolol XL 50 mg. He has restarted his amiodarone at 200 mg p.o. daily. Thus far he has had no adverse events. Depending upon his future cardiac rate and response to his medications, his electrolyte disturbances such as hyperkalemia, etc. he may or may not eventually need to be considered for further support such as permanent pacemaker and/or repeat EP consultation. 2. PSVT He has a history of PSVT. At the moment he is being monitored. He states his tachydysrhythmia events are relatively rare and brief usually lasting no more than 20 minutes. He notes some of the events he can terminate with a Valsalva maneuver. Thus, he will attempt to refrain from using his beta-jackson as needed therapy if at all possible. 3. Atrial fibrillation/flutter Has a history of atrial fibrillation/flutter. He has undergone EPS/RFA at 2 different tertiary care center institutions. Again he will attempt to refrain from using his beta-jackson therapy if at all possible. If need be he has been advised to use a lower dose of his beta-jackson. His amiodarone dose will be decreased as noted above. If he continues to have concerns of both bradycardia and tachydysrhythmias then he may need to be considered for further support such as permanent pacemaker and/or if need be additional EP input. 4. Status post EPS/RFA Again, he has undergone EPS/RFA at 2 different tertiary institutions in the past. 5. PDA status post repair-remote He has a history of a PDA closure. The details of his surgery are unavailable at this time. 6. VSD status post repair-remote He has a history of a VSD closure. The details of his surgery are unavailable at this time. 7. Hyperlipidemia He will continue risk factor evaluation and care as deemed appropriate. 8. Hypertension His blood pressure will be monitored. His medications will be adjusted as needed taking into consideration any concerns with his cardiac rate and rhythm. 9. Diabetes mellitus He will continue evaluation care per internal medicine. 10. LASHAWN He does have a history of LASHAWN. He will continue evaluation care per internal medicine. 11. Pulmonary hypertension He has been evaluated for pulmonary hypertension in the past both noninvasively and invasively. At the moment it appears he has been delegated for continued medical therapy. As noted before he could be evaluated at a tertiary care center for consideration for other forms of therapy including vasodilator therapy, etc., as deemed appropriate. 12. Right heart failure due to pulmonary hypertension He does have a history of CHF which may be compatible with right heart failure secondary to cor pulmonale secondary to pulmonary hypertension. He will continue medical management and hemodialysis care. 13. End-stage renal disease on chronic hemodialysis He is proceeding with hemodialysis today to assist with his hyperkalemia. 14. Hyperkalemia His potassium level is improved status post dialysis. As this may be a contributing factor to his bradycardia dysrhythmia it is important for him to have input from his other physicians regarding his potassium levels and control of his potassium levels. Comment: Otherwise, there are no additional cardiovascular diagnostic studies/procedures planned for this patient at this time barring a change in his clinical course. He will need continued future outpatient cardiovascular follow-up. This note was generated using a voice recognition system and there may be incorrect words, spelling or punctuation that were not noted when reviewing the office note prior to saving.
== END 2020-07-11 07:55 | disposition home or self-care (01) ==
LOC: ED 09:50 → PCU 12:40
PROVIDERS: Emergency Provider Emergency Medicine; PCP Family Medicine
DX: R00.1 Bradycardia, unspecified (principal); E87.5 Hyperkalemia; E87.1 Hypo-osmolality and hyponatremia; R06.02 Shortness of breath; I45.10 Unspecified right bundle-branch block; I44.0 Atrioventricular block, first degree; D63.1 Anemia in chronic kidney disease; N18.6 End stage renal disease; N17.9 Acute kidney failure, unspecified; I13.2 Hypertensive heart and chronic kidney disease with heart failure and with stage 5 chronic kidney disease, or end stage renal disease; E66.01 Morbid (severe) obesity due to excess calories; I27.20 Pulmonary hypertension, unspecified; G47.33 Obstructive sleep apnea (adult) (pediatric); I47.1 Supraventricular tachycardia; I48.0 Paroxysmal atrial fibrillation; I50.32 Chronic diastolic (congestive) heart failure; E78.5 Hyperlipidemia, unspecified; E11.22 Type 2 diabetes mellitus with diabetic chronic kidney disease; Z99.2 Dependence on renal dialysis; Z79.01 Long term (current) use of anticoagulants; Z79.4 Long term (current) use of insulin; Z79.899 Other long term (current) drug therapy; Z68.42 Body mass index [BMI] 45.0-49.9, adult; I48.92 Unspecified atrial flutter
CPT/HCPCS: 36415; 80048; 80053; 82962; 84484; 85025; 85610; 87426; 90937; 93005; 96374; 96375; 99218; 99285; J7030; A4216; G0257; G0378; J0610

== ENCOUNTER 2020-08-01 09:26 | Day surgery (SDC) | payer MEDICARE, SELFPAY ==
[2020-07-15 10:11] VITALS: BMI 43.2
[2020-07-23 09:15] VITALS: BMI 43.2
[2020-08-01 09:36] LABS: INR Fingerstick 1.8; Prothrombin Time Fingerstick 20.8 SEC (11.9-14.4)
--- NOTE | 2020-08-01 09:53 | PCM.HP.BLA ---
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 Is patient in pain?: No Allergies albuterol Adverse Reaction (Verified 07/15/20 10:18) increased heart rate amoxicillin trihydrate [From Augmentin] Adverse Reaction (Verified 07/15/20 10:18) Diarrhea indomethacin [From Indocin] Adverse Reaction (Verified 07/15/20 10:18) Nausea potassium clavulanate [From Augmentin] Adverse Reaction (Verified 07/15/20 10:18) Diarrhea Medications Atorvastatin Calcium 20 mg PO QHS 04/16/19 [History Confirmed 07/15/20] Insulin Lispro [Humalog KwikPen] 5 unit SC LUNCH insuln.pen 04/28/19 [Rx Confirmed 07/15/20] Insulin Lispro [Humalog KwikPen] 7 unit SC BREAKFAST insuln.pen 04/28/19 [Rx Confirmed 07/15/20] Docusate Sodium [Colace] 100 mg PO DAILY PRN PRN 11/21/19 [History Confirmed 07/15/20] Melatonin 3 mg PO QHS PRN 11/21/19 [History Confirmed 07/15/20] Furosemide [Lasix] 80 mg PO BID@1000,1800 12/29/19 [History Confirmed 07/15/20] Insulin Glargine [Lantus SoloStar Pen] 10 units SC BID 12/29/19 [History Confirmed 07/15/20] Insulin Lispro [Humalog KwikPen] 6 unit SC DINNER 12/29/19 [History Confirmed 07/15/20] Insulin Lispro [Humalog KwikPen] See Protocol SC ACHS 12/29/19 [History Confirmed 07/15/20] Tamsulosin HCl [Flomax] 0.4 mg PO QHS 12/29/19 [History Confirmed 07/15/20] Warfarin [Coumadin] 3 mg PO DAILY 06/10/20 [History Confirmed 07/15/20] Amiodarone HCl [Cordarone] 200 mg PO DAILY #30 tablet 07/11/20 [Rx Confirmed 07/15/20] PFSH Medical History Problem with dialysis access (Inactive) Hyperkalemia (Inactive) MOUNA (acute kidney injury) (Inactive) Chronic renal failure, stage 5 (Chronic) Chronic kidney disease (CKD) (Chronic) Acute on chronic congestive heart failure (Chronic) CHF (congestive heart failure) (Chronic) Supratherapeutic INR (Inactive) Morbid obesity with BMI of 50.0-59.9, adult (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 (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) Paroxysmal SVT (supraventricular tachycardia) (Chronic) Atrial fibrillation (Chronic) History of atrial flutter (Chronic) Chronic diastolic congestive heart failure (Chronic) History of patent ductus arteriosus as a child (Chronic) Nonrheumatic tricuspid valve regurgitation (Chronic) Hyperlipidemia (Chronic) Hypertension (Chronic) Diabetes mellitus, type II (Chronic) Pulmonary hypertension, moderate to severe (Chronic) LASHAWN (obstructive sleep apnea) (Chronic) History of arm fracture (Chronic) History of paroxysmal supraventricular tachycardia (Inactive) Surgical History History of right and left heart catheterization (Chronic 02/18/98) History of ventricular septal defect repair (Chronic) History of radiofrequency ablation procedure for cardiac arrhythmia (Chronic) history transposition AV Fistula left forearm (Acute ~04/02/20) Family History Mother , of complications post valve surgery Hypertension Diabetes CVA (cerebral vascular accident) X2 Valvular heart disease Father CVA (cerebral vascular accident) Hypertension Hyperlipidemia Social History (Updated 07/15/20 @ 10:54 by Nathalie MAXWELL PA-C) Smoking Status: Former smoker alcohol intake: current alcohol intake frequency: holidays/special occasions only HPI HPI HPI: SHERRIE GUERRIER, is a 60 M who presents to the office today for HPI HPI Surgical H&P: Yes HPI: SHERRIE GUERRIER, is a 60 M who presents to the office today for problem with dialysis access. Patient has a left transposed forearm fistula. He was recently released to utilize this fistula at dialysis approximately 2 weeks ago. Dialysis has been unable to cannulate his new fistula. He currently also has tunneled dialysis catheters. He recently had an ultrasound inspection of the fistula in the office at last visit by Dr. Kingston. Patient also had a formal fistula duplex which demonstrated adequate flow within the fistula. Patient has been infiltrated with the last dialysis access. He is currently on Coumadin. He was recently hospitalized last week with hyperkalemia and low blood pressure. He was treated accordingly and discharged on 07/11. He notes feeling much improved. ROS General General: Yes weight change and fatigue; no appetite, colon cancer, breast cancer or weakness HEENT HEENT: No difficulty swallowing, eye injury, eye surgery, swollen glands or hoarseness Endo Endocrine: Yes diabetes mellitus; no thyroid disease, thyroid cancer, Hair loss, heat intolerance or cold intolerance Skin Skin: No rash or changing moles Breast Breast: No left breast lump, right breast lump, nipple discharge, breast pain, abnormal mammogram, abnormal US or breast enlargement Musc Musculoskeletal: Yes back problems and arthritis; no rheumatoid arthritis, gout or joint pain Cardio Cardiovascular: Yes murmur, heart disease, atrial fibrillation and high blood pressure; no pacemaker, heart attack, heart stent, palpitations, shortness of breat with exertion or chest pain Psych Psychiatric: No depression, anxiety or hearing voices Resp Respiratory: Yes shortness of breath, Yes sleep apnea, No cough, No COPD, No asthma, No emphysema, No wheezing Gastro Gastrointestinal: No abdominal pain, Yes nausea or vomiting, Yes diarrhea, Yes constipation, No blood in stool, No acid reflux, No hemorrhoids, No ulcers, No gallbladder problem, No black,tarry stools [place] Hematologic: Yes blood thinners, No blood disorders, No bleeding, Yes anemia, No blood clots Neuro Neurologic: No system reviewed and no additional complaints, except as docu, No as per HPI, No abnormal walking, No abnormal hearing, No abnormal movements, No abnormal speech, No behavioral changes, No burning sensations, No confusion, No seizure-like activity, No unsteadiness, No dizziness, No localized weakness, No frequent falls, No headache(s), No lack of coordination, No loss of vision, No memory loss, Yes numbness, No other visual disturbances, No radiating pain, No restless legs, No sensory deficit, No fainting, Yes tingling, No tremor(s), No weakness, No other Exam Const General: cooperative, healthy appearing, comfortable, no acute distress [facility] Head: normal to inspection Eyes General: appearance normal, both eyes and all related structures Neck Neck: normal visual inspection Neck mass: No Chest Breast Palpation: No nipple discharge Resp Effort & Inspection: normal respiratory effort Auscultation: clear to auscultation bilaterally Cardio Rate: regular rate Rhythm: regular rhythm Heart Sounds: murmur GI Inspection: normal to inspection Musc Cervical Spine: normal cervical lordosis Skin General: no rashes or lesions noted Neuro General: no focal motor deficits, CN's II-XI intact bilaterally Extrem Other: Left forearm fistula- good pulse. Diminished bruit and thrill. Ecchymosis noted at superior access site. Psych Appearance: grossly normal Affect: normal affect Assessment & Plan Problems 1. Problem with dialysis access, initial encounter T82.841F Plan Dr. Kingston will plan to perform a left forearm fistulogram. Procedure details, risks and benefits have been explained. Patient will use his chest catheters until after fistulogram to decrease risk of clotting off. Patient and his have had the opportunity to ask and have questions answered. Patient verbally understands and agrees with the plan. Patient to hold Coumadin for 3 days prior to the procedure. Patient dialyzes T, Th and Sat. Coding Level of Care Code Off vis,est,level 3 Diagnoses Problem with dialysis access, initial encounter T82.922J ??Encounter type: initial encounter I have re-examined the patient. There are no clinical changes since date of exam. Procedure Criteria Procedure Type: Elective COVID Risk Discussion: The surgeon/proceduralist and patient have discussed in detail the risk of exposure to and/or potential harm posed by the COVID-19 virus with having a surgery/procedure at this time versus the risk of delaying the surgery/procedure. It is not possible to know either the risk of delaying the surgery or procedure or chance of getting an infection with perfect accuracy, but a joint decision was made between the patient and the surgeon/proceduralist to proceed at this time with the scheduled surgery/procedure as indicated on the consent form.
--- NOTE | 2020-08-01 11:30 | OP.PCM_ITS ---
Problem List (1) Problem with dialysis access Status: Inactive Qualifiers: Report of Operation Date of Procedure: 08/01/20 Pre-Operative Diagnosis: Failure to mature left forearm transposed cephalic vein to radial artery arteriovenous hemodialysis fistula Post-Operative Diagnosis: 90% stenosis left forearm fistula in the mid to distal forearm Surgery/Procedure Performed:: Left upper extremity fistulogram with 7 x 2 [employer] angioplasty Description of Surgical Findings:: Timeout and informed consent was obtained. 60-year-old gentleman was taken to the special procedures lab placed upon the table. The left extremity sterilely prepped and draped. Ultrasound was used to identify the cephalic vein closer to the antecubital space. 2% lidocaine was instilled under ultrasound guidance. Micropuncture needle inserted retrograde with flow. Micropuncture wire inserted. 6 Albanian short sheath dilator was inserted. 035 angled Glidewire and a 4 Albanian glide cath was used to advance the catheter down into the radial artery. Fistulogram was obtained demonstrating the anastomosis was wide open. Approximately 7 cm from the anastomosis there is an area of high-grade 90% stenosis. So I removed the guide cath placed a 7 x 2 [employer] balloon perform balloon angioplasty. This was done up to 30 alessandra of pressure and held for 3 minutes. Upon deflating the balloon there was evidence of some stringy clot along the sidewall. I therefore gave 5000 units of heparin. I treated another small area with the balloon. Repeated the fistulogram several times dem onstrating now improved rate of flow and improve diameter. Finished the fistulogram with studies of the upper arm and chest outflow area. He tolerated the procedure well no apparent complication the sheath was removed U suture 4-0 nylon was placed. There was a palpable pulse and thrill at the completion. Fistulogram demonstrates a widely patent left forearm radiocephalic AV fistula anastomosis proximal to the wrist. There is an area of 90% venous stenosis within the external third of the fistula in the distal forearm. This was successfully treated with balloon angioplasty. There appeared to be some venous spasm at the antecubital area. There was good basilic vein outflow. There was some irregular disease of the cephalic arch of the cephalic vein outflow. There was good central venous outflow. I have elected to cease the procedure with the treatment provided. I did not perform any more central or antecubital treatment. Patient will be reevaluated and additional treatment rendered if indicated. The patient will be resumed on his Coumadin immediately Rony Kingston M.D., F.A.C.S. Is of note that the patient did receive 50 mcg of fentanyl 1 mg Versed intravenously preprocedure as mild sedation Type of Anesthesia:: IV Sedation, Local
--- NOTE | 2020-08-01 12:02 | DCINST_ITS ---
Discharge Diet: Light diet - advance as tolerated - if you have questions about your diet instructions, please talk to you doctor. Discharge Activity: May Not Drive - for 1 week or while taking narcotic pain medicine. May shower in (days): 1 Lifting Restrictions: 10 pounds Call your doctor if your incision/area has: Continuous Slow Oozing, Sudden Increased Bleeding, Increased Pain/ Swelling, Increased Redness, Foul Smelling Discharge Call your doctor if you observe: Fever of 101 or Higher Suture Line Care: Avoid Pulling/Pushing, Avoid Pinching/Bending Additional Dressing/Incision Instructions:: Change or remove dressing in 4 days. Leave steri-strips in place for 1 week. Allergies/Adverse Reactions: Allergies albuterol Adverse Reaction (Verified 07/15/20 10:18) increased heart rate increased heart rate. amoxicillin trihydrate [From Augmentin] Adverse Reaction (Verified 07/15/20 10:18) Diarrhea indomethacin [From Indocin] Adverse Reaction (Verified 07/15/20 10:18) Nausea potassium clavulanate [From Augmentin] Adverse Reaction (Verified 07/15/20 10:18) Diarrhea Medications to take at Discharge Atorvastatin Calcium 20 mg PO QHS 04/16/19 Insulin Lispro [Humalog KwikPen] 5 unit SC LUNCH insuln.pen 04/28/19 Insulin Lispro [Humalog KwikPen] 7 unit SC BREAKFAST insuln.pen 04/28/19 Docusate Sodium [Colace] 100 mg PO DAILY PRN PRN 11/21/19 Melatonin 3 mg PO QHS PRN 11/21/19 Furosemide [Lasix] 80 mg PO BID@1000,1800 12/29/19 Insulin Glargine [Lantus SoloStar Pen] 10 units SC BID 12/29/19 Insulin Lispro [Humalog KwikPen] 6 unit SC DINNER 12/29/19 Insulin Lispro [Humalog KwikPen] See Protocol SC ACHS 12/29/19 Tamsulosin HCl [Flomax] 0.4 mg PO QHS 12/29/19 Warfarin [Coumadin] 3 mg PO DAILY 06/10/20 Amiodarone HCl [Cordarone] 200 mg PO DAILY #30 tablet 07/11/20 Primary Care Physician: Francisco Alcazar MD [Primary Care Provider] - Test Results: Test results from this visit will be discussed in further detail at your follow- up appointment, if applicable. Please Follow Up With: Rony Kingston MD - [phone] When: Call to make an appointment to be seen in about 10 days.
== END 2020-08-01 12:30 | disposition home or self-care (01) ==
PROVIDERS: PCP Family Medicine; Referring Provider Surgery; Visit Provider Surgery
DX: T82.858A Stenosis of other vascular prosthetic devices, implants and grafts, initial encounter (principal); T82.898A Other specified complication of vascular prosthetic devices, implants and grafts, initial encounter; Z79.01 Long term (current) use of anticoagulants; Z79.4 Long term (current) use of insulin; Z87.891 Personal history of nicotine dependence; Z88.0 Allergy status to penicillin; Z88.1 Allergy status to other antibiotic agents; Z99.2 Dependence on renal dialysis; I13.0 Hypertensive heart and chronic kidney disease with heart failure and stage 1 through stage 4 chronic kidney disease, or unspecified chronic kidney disease; E11.22 Type 2 diabetes mellitus with diabetic chronic kidney disease; N18.9 Chronic kidney disease, unspecified; E66.01 Morbid (severe) obesity due to excess calories; E78.5 Hyperlipidemia, unspecified; G47.33 Obstructive sleep apnea (adult) (pediatric); Z87.74 Personal history of (corrected) congenital malformations of heart and circulatory system; Z68.43 Body mass index [BMI] 50.0-59.9, adult; I50.32 Chronic diastolic (congestive) heart failure
CPT/HCPCS: 36416; 36902; 76937; 85610; 99152; 99153; Q9967; C1725; C1769

== ENCOUNTER → 2020-08-14 09:58 | Outpatient (CLI) | payer MEDICARE, SELFPAY ==
[2020-07-09 14:11] VITALS: BMI 45.3
[2020-07-23 09:15] VITALS: BMI 43.2
== END ==
PROVIDERS: PCP Family Medicine; Referring Provider Internal Medicine Cardiovascular Disease; Visit Provider Internal Medicine Cardiovascular Disease
DX: I48.91 Unspecified atrial fibrillation (principal); R00.1 Bradycardia, unspecified; I47.1 Supraventricular tachycardia; R00.2 Palpitations
CPT/HCPCS: 93225; 93226

== ENCOUNTER 2020-08-23 11:03 | Outpatient (RCR) | payer MEDICARE, SELFPAY ==
[2020-08-23 09:45] VITALS: BMI 45.4
[2020-08-23 11:42] LABS: International Normalized Ratio 1.6; Prothrombin Time (Protime)PT. 18.3 SECONDS (11.7-14.9)
== END 2020-08-23 18:00 | disposition home or self-care (01) ==
LOC: LAB 11:03
PROVIDERS: PCP Family Medicine; Referring Provider Nurse Practitioner Family; Visit Provider Nurse Practitioner Family
DX: Z79.01 Long term (current) use of anticoagulants (principal); Z98.890 Other specified postprocedural states
CPT/HCPCS: 36415; 85610

== ENCOUNTER 2020-09-18 10:10 | Outpatient (RCR) | payer MEDICARE, SELFPAY ==
[2020-09-18 10:40] LABS: International Normalized Ratio 2.2; Prothrombin Time (Protime)PT. 23.6 SECONDS (11.7-14.9)
== END 2020-09-18 18:00 | disposition home or self-care (01) ==
LOC: LAB 10:10
PROVIDERS: PCP Family Medicine; Referring Provider Nurse Practitioner Family; Visit Provider Nurse Practitioner Family
DX: I48.91 Unspecified atrial fibrillation (principal); Z79.01 Long term (current) use of anticoagulants; Z86.79 Personal history of other diseases of the circulatory system
CPT/HCPCS: 36415; 85610

== ENCOUNTER 2020-11-01 14:17 | Emergency (ER) | payer MEDICARE, SELFPAY ==
[2020-10-16 05:46] VITALS: BMI 45.4
[2020-11-01] VITALS (8 sets, daily range): BP systolic 114–128; BP diastolic 46–82; PULSE 70–75; RESP 8–19; TEMP 36.5–37.1; O2SAT 95–100; BMI 44.8
--- NOTE | 2020-11-01 14:48 | EKG12_ITS ---
Test Reason : BACK PAIN Blood Pressure : / mmHG Vent. Rate : 074 BPM Atrial Rate : 068 BPM P-R Int : 000 ms QRS Dur : 140 ms QT Int : 432 ms P-R-T Axes : 000 121 062 degrees QTc Int : 479 ms Atrial fibrillation Right bundle branch block Abnormal ECG Confirmed by IDRIS HAMLIN, ADAL ([id number]), film or videotape editor JAVIER GREEN ([id number]) on 11/05/2020 10:20:21 AM Referred By: STACI Confirmed By:ADAL STEINBERG MD
--- NOTE | 2020-11-01 14:52 | ED.VIS.BACK ---
HPI History of Present Illness Chief Complaint: Back Informant: patient Narrative Narrative: Patient is a 60-year-old male with complex medical history presenting with fever and back pain. Patient states he goes to hemodialysis normally on Wednesday and Wednesday however this week he went on Wednesday, 2 days ago. His next dialysis is due tomorrow. On Wednesday and he has had fever intermittently with a maximum temperature of 101.5. He had blood work on Wednesday and states his white blood cell count was elevated at that time. He had not started having fever yet.Patient also notes that he has been having worsening pain in his back. He states it is where his kidneys are and it feels like they are being grabbed and squeezed. Right is worse than left. His urine has been slightly darker/more concentrated than normal. Patient going on for the past 2 to 3 days. He denies any dysuria. He is concerned he might have a kidney infection. He denies any abdominal pain. He states the back pain is not changed by twisting but is worse when he tries either sit or lay back. He has chronic hypoxic respiratory failure and wears 3 L of oxygen at baseline. He denies any change in his breathing. He does report a cough for the past month but has been productive of clear sputum. He denies any chest pain. He is on Coumadin for atrial fibrillation and states he was off of it 2 weeks ago for removal of a port however it since been resumed. He does note that he had constipation/hemorrhoid issues couple weeks ago however that has regulated now as well. No other complaints or concerns at this time. His type photography supervisor is Dr. Carmen. [facility] Medical History (Updated 11/01/20 @ 18:[address] 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 Morbid obesity with BMI of 50.0-59.9, adult Nonrheumatic tricuspid valve regurgitation LASHAWN (obstructive sleep apnea) Paroxysmal SVT (supraventricular tachycardia) Problem with dialysis access Pulmonary hypertension, moderate to severe Supratherapeutic INR Home Medications atorvastatin 20 mg PO QHS 04/16/19 [History Last Taken 10/31/20] insulin lispro 5 unit SC LUNCH insuln.pen 04/28/19 [Rx Last Taken 10/31/20] insulin lispro 7 unit SC BREAKFAST insuln.pen 04/28/19 [Rx Last Taken 11/01/20] docusate sodium 100 mg PO BID PRN PRN 11/21/19 [History Last Taken 11/01/20] melatonin 3 mg PO QHS PRN 11/21/19 [History Last Taken 07/05/20] insulin lispro 6 unit SC DINNER 12/29/19 [History Last Taken 10/31/20] insulin lispro See Protocol SC ACHS 12/29/19 [History Last Taken 11/01/20] tamsulosin 0.4 mg PO QHS 12/29/19 [History Last Taken 10/31/20] warfarin 3 mg PO SUMOTUWETHFR 06/10/20 [History Last Taken 10/31/20] insulin glargine 100 unit/mL (3 mL) subcutaneous pen 15 unit SC BID ml 08/23/20 [History Last Taken 11/01/20] amiodarone 200 mg PO DAILY 11/01/20 [History Last Taken 11/01/20] cephalexin 500 mg PO Q12 5 Days #10 cap 11/01/20 [Rx Last Taken Unknown] furosemide 80 mg PO BID 11/01/20 [History Last Taken 11/01/20] hydrocodone-acetaminophen 1 tab PO Q6H PRN 3 Days #12 tab 11/01/20 [Rx Last Taken Unknown] warfarin 6 mg PO SA 11/01/20 [History Last Taken 10/26/20] Allergy/AdvReac Type Severity Reaction Status Date / Time albuterol AdvReac increased Verified 11/01/20 14:21 heart rate amoxicillin trihydrate AdvReac Diarrhea Verified 11/01/20 14:21 [From Augmentin] indomethacin [From Indocin] AdvReac Nausea Verified 11/01/20 14:21 potassium clavulanate AdvReac Diarrhea Verified 11/01/20 14:21 [From Augmentin] Family History Mother , of complications post valve surgery Hypertension Diabetes CVA (cerebral vascular accident) X2 Valvular heart disease Father CVA (cerebral vascular accident) Hypertension Hyperlipidemia Surgical History History of radiofrequency ablation procedure for cardiac arrhythmia History of right and left heart catheterization (02/18/98) History of ventricular septal defect repair history transposition AV Fistula left forearm (~04/02/20) Social History Smoking Status: Former smoker how long ago did patient quit smokin years ago alcohol intake: current alcohol intake frequency: holidays/special occasions only substance use type: does not use caffeine: No ROS ROS ED Constitutional Constitutional ED: Reports chills and fever(s) Eyes Eyes: Denies blurry vision or change in vision ENT ENT ED: Denies rhinorrhea or sore throat Cardiovascular Cardiovascular: Denies chest pain, orthopnea or palpitations Respiratory/Chest Respiratory/Chest: Reports sputum; Denies dyspnea, dyspnea on exertion or orthopnea Gastrointestinal Gastrointestinal: Denies abdominal pain, constipation, diarrhea, nausea or vomiting Genitourinary Genitourinary ED: Denies dysuria or hematuria Musculoskeletal Musculoskeletal: Reports back pain; Denies arthralgias or myalgias Integumentary Denies rash Neurologic Neurologic: Denies headache(s) or weakness EXAM Physical Exam Const Vital Signs: 11/01/20 14:18 11/01/20 15:28 11/01/20 15:48 Temperature 97.7 F L 97.9 F Temperature Source Temporal Oral Pulse Rate 75 Respiratory Rate 14 Blood Pressure 118/54 L Blood Pressure Mean 75 Pulse Ox 100 95 Oxygen Delivery Method Nasal Cannula Nasal Cannula Oxygen Flow Rate (L/min) 3 3 11/01/20 15:56 11/01/20 16:00 11/01/20 16:47 Temperature 98.7 F Temperature Source Oral Pulse Rate 72 70 Respiratory Rate 17 18 Blood Pressure 128/57 H 122/51 H Blood Pressure Mean 80 74 Pulse Ox 100 100 Oxygen Delivery Method Nasal Cannula Room Air Oxygen Flow Rate (L/min) 4 11/01/20 17:00 11/01/20 18:14 Temperature 98.1 F Temperature Source Oral Pulse Rate 70 71 Respiratory Rate 19 H 8 L Blood Pressure 114/46 L 124/82 H Blood Pressure Mean 68 Pulse Ox 100 95 Oxygen Delivery Method Nasal Cannula Oxygen Flow Rate (L/min) 3 Positive well nourished, well developed and obese General Appearance ED: well developed Nutritional Appearance: obese HEENT Reports moist mucous membranes tenderness Eyes PERRL and EOMs intact bilaterally Neck supple and no JVD Chest Wall Chest Narrative: Bruising on right anterior chest wall from recent port removal. No associated crepitus or tenderness. Resp normal respiratory effort and clear to auscultation bilaterally Cardio regular rate and no murmurs Cardio Narrative: Irregularly irregular rhythm. AV fistula in the left forearm with palpable thrill GI normal to inspection, nondistended, normoactive bowel sounds Back/Spine normal to inspection and no thoracic nor lumbar tenderness Back/Spine Narrative: No midline tenderness General Back: Negative for CVA tenderness Extremity normal to inspection General Extremety ED: Negative for edema or tenderness General Extremity: Negative for edema Neuro oriented x3 Neuro Narrative: No focal deficits appreciated Sensorium / Orientation: alert MDM MDM MDM Narrative Medical decision making narrative: Patient is a 60-year-old male presenting with back pain. Is concerned he has a kidney infection. He states he was having fever at home for the past 2 days. He denies any acute respiratory symptoms. He states he had a leukocytosis of 23 earlier this week. He is not currently on any antibiotics. On evaluation patient does not have clear CVA tenderness. His pain seems diffuse at the thoracolumbar junction. His lab work has a mild leukocytosis of 11.7. His INR is therapeutic at 2.1. His BMP shows multiple abnormalities including mild hyponatremia of 127 and findings consistent with end-stage renal disease. Chest x-ray shows suspected patchy bibasilar infiltrate worse on the left side superimposed on chronic scarring. However CT did not comment on any infiltrate of the lung bases. CT abdomen pelvis shows a possible splenule versus exophytic left renal lesion and a contracted gallbladder with cholelithiasis. Unknown if this explains his acute presentation. Spoke with the hospitalist given possible pneumonia who reviewed the images and results and felt like this is likely chronic findings and not acute pneumonia. Patient is on his baseline oxygen. Urinalysis is contaminated versus infectious. Urine and blood cultures are pending. Patient will be started on antibiotics and be discharged to follow-up with his type photography supervisor. He does have dialysis scheduled for tomorrow. He is given course of Rocephin and azithromycin in the emergency room. We discharged home on a course of Keflex. Did discuss the case with his type photography supervisor, Dr. Carmen, who is agreeable to this plan of care. Patient is given [place] for pain control in the ER and discharged with a short course of [place] as well for pain. He is counseled on strict return precautions. Lab Data Attestation: I reviewed the patient's lab results. Labs: Laboratory Results - last 24 hr 11/01/20 11/01/20 11/01/20 15:10 15:10 15:10 WBC 11.7 H RBC 2.67 L Hgb 8.2 L Hct 25.4 L MCV 95.1 H MCH 30.7 MCHC 32.3 RDW Std Deviation 49.2 H RDW Coeff of Janiya 14.1 Plt Count 222 MPV 8.5 Immature Gran % (Auto) 1.000 H Neut % (Auto) 78.6 H Lymph % (Auto) 7.5 L [place] % (Auto) 11.4 H Eos % (Auto) 1.2 Baso % (Auto) 0.3 Absolute Neuts (auto) 9.2 H Absolute Lymphs (auto) 0.87 Nucleated RBC % 0 PT 23.0 H INR 2.1 APTT 47.6 H Sodium 127 L Potassium 4.2 Chloride 88 L Carbon Dioxide 31.0 Anion Gap 8 BUN 54 H Creatinine 6.56 H Estim Creat Clear Calc 11.30 Est GFR (MDRD) Af Amer 11 L Est GFR (MDRD) Non-Af 9 L BUN/Creatinine Ratio 8.2 L Glucose 131 H Lactic Acid Calcium 8.6 Total Bilirubin 0.60 AST 25 ALT 40 Alkaline Phosphatase 138 H Total Creatine Kinase 29 L Total Protein 6.7 Albumin 2.6 L Globulin 4.1 Albumin/Globulin Ratio 0.6 L Urine Color Urine Clarity Urine pH Ur Specific [place] Urine Protein Urine Glucose (UA) Urine Ketones Urine Occult Blood Urine Nitrite Urine Bilirubin Urine Urobilinogen Ur Leukocyte Esterase Urine RBC Urine WBC Ur Squamous Epith Cells Urine Bacteria Urine Mucus 11/01/20 11/01/20 15:10 16:13 WBC RBC Hgb Hct MCV MCH MCHC RDW Std Deviation RDW Coeff of Janiya Plt Count MPV Immature Gran % (Auto) Neut % (Auto) Lymph % (Auto) [place] % (Auto) Eos % (Auto) Baso % (Auto) Absolute Neuts (auto) Absolute Lymphs (auto) Nucleated RBC % PT INR APTT Sodium Potassium Chloride Carbon Dioxide Anion Gap BUN Creatinine Estim Creat Clear Calc Est GFR (MDRD) Af Amer Est GFR (MDRD) Non-Af BUN/Creatinine Ratio Glucose Lactic Acid 1.3 Calcium Total Bilirubin AST ALT Alkaline Phosphatase Total Creatine Kinase Total Protein Albumin Globulin Albumin/Globulin Ratio Urine Color Yellow Urine Clarity Sl. Cloudy Urine pH 5.0 Ur Specific [place] 1.015 Urine Protein 30 H Urine Glucose (UA) Normal Urine Ketones Negative Urine Occult Blood 250 H Urine Nitrite Negative Urine Bilirubin 1 H Urine Urobilinogen Normal Ur Leukocyte Esterase 500 H Urine RBC 50-100 SEEN Urine WBC 5-10 SEEN Ur Squamous Epith Cells 5-10 SEEN Urine Bacteria 2+ Urine Mucus 0 SEEN Radiography Diagnostic Testing: Radiology Impression Chest X-Ray 11/01/20 15:13 IMPRESSION: Patchy bibasilar infiltrates worse on the left side superimposed on chronic scarring. Electronically Signed: Fortunato Francisco MD at 15:28 EDT , Service support , Abdomen/Pelvis CT 11/01/20 15:41 IMPRESSION: 1. No focal fluid collection or acute inflammatory process. 2. Moderate splenomegaly. 3. Bilateral nephrolithiasis without hydronephrosis. 4. Probable splenule versus exophytic left renal lesion, limited evaluation without IV contrast. Recommend nonemergent renal protocol CT without and with IV contrast. 5. Cholelithiasis, contracted gallbladder. Electronically Signed: Blaise Ly MD ([place]) at 16:00 EDT , Service support , Rhythm Strip Rhythm Strip: A-fib Rate: 74 Ectopy: None EKG Initial EKG: Attestation: I personally reviewed and interpreted this EKG as follows: Interpretation: Atrial Fibrillation Comments: Atrial fibrillation at a rate of 74 Normal axis Normal QRS and QTc Right bundle branch block Compared to prior EKG on 07/09/2020 patient does not have any acute changes Discharge Plan Triage Chief Complaint: Back ED Provider: Hina Rush Dx/Rx/DC Orders Clinical Impression: Back pain, UTI (urinary tract infection) Instructions: ED Back Pain (Acute or Chronic), ED Bladder Infection, Male (Adult) Prescriptions: New hydrocodone-acetaminophen 5-325 mg tablet 1 tab PO Q6H PRN (Reason: pain) 3 Days Qty: 12 RF: 0 cephalexin 500 mg capsule 500 mg PO Q12 5 Days Qty: 10 RF: 0 No Action atorvastatin 20 MG tablet 20 mg PO QHS RF: 0 insulin lispro 100 UNIT/ML insulin pen 5 unit SC LUNCH RF: 0 insulin lispro 100 UNIT/ML insulin pen 7 unit SC BREAKFAST RF: 0 melatonin 3 MG tablet 3 mg PO QHS PRN (Reason: Insomnia) RF: 0 docusate sodium 100 MG capsule 100 mg PO BID PRN PRN (Reason: STOOL SOFTNER) RF: 0 tamsulosin 0.4 MG capsule 0.4 mg PO QHS RF: 0 insulin lispro 100 UNIT/ML insulin pen 6 unit SC DINNER RF: 0 insulin lispro 100 UNIT/ML insulin pen See Protocol unit SC ACHS RF: 0 insulin glargine 100 unit/mL (3 mL) insulin pen 15 unit SC BID RF: 0 warfarin 3 MG tablet 3 mg PO SUMOTUWETHFR RF: 0 furosemide 40 mg tablet 80 mg PO BID RF: 0 warfarin 3 mg tablet 6 mg PO SA RF: 0 amiodarone 200 MG tablet 200 mg PO DAILY RF: 0 Primary Care Provider: Francisco Alcazar Referrals: Geno Arevalo MD [STAFF PHYSICIAN] - Francisco Alcazar MD [Primary Care Provider] - Activity Restrictions/Additional Instructions: Your INR is 2.1 Disposition Disposition: Home, Self Care Discharge Date/Time: 11/01/20 18:15
--- NOTE | 2020-11-01 15:13 | RAD_ITS ---
STUDY: X-RAY CHEST REASON FOR EXAM: Male, 60 years old. Cough, fever TECHNIQUE: Single AP portable view of the chest. COMPARISON: Comparison is made with prior study 06/10/2020. FINDINGS: There is evidence of bibasilar patchy infiltrates more prominent on the left side superimposed on basilar scarring. There is blunting of both cost phrenic angles. Sternal cerclage wires and vascular clips are present from a prior sternotomy and coronary artery bypass graft procedure (CABG). Moderate cardiomegaly. Normal mediastinum and kelsie. Normal visualized pulmonary arteries. Normal visualized aortic arch and descending thoracic aorta. Normal visualized thoracic spine. Normal visualized ribs, clavicles, and shoulders. There is no demonstrated abnormality of the visualized soft tissue structures of the upper abdomen. RAD/Chest 1 View (Portable) IMPRESSION: Patchy bibasilar infiltrates worse on the left side superimposed on chronic scarring. Electronically Signed: Fortunato Francisco MD at 15:28 EDT , Service support ,
[2020-11-01 15:17] LABS: Absolute Lymphocyte Count 0.87 X10^3/uL (0.83-4.51); Absolute Neutrophil Count 9.2 X10^3/uL (2.0-7.7); Basophil# 0.03 X10^3/uL; Basophil% 0.3 % (0-1); Eosinophil# 0.14 X10^3/uL; Eosinophils% 1.2 % (0-5); Hematocrit 25.4 % (40-54); Hemoglobin 8.2 g/dL (13.0-16.5); Lymphocyte # 0.87 X10^3/ul (0.83-4.51); Lymphocyte % 7.5 % (19-41); Mean Corp Hgb Conc 32.3 g/dL (32-36); Mean Corpuscular Hgb 30.7 pg (27.0-32.0); Mean Corpuscular Volume 95.1 fL (80-94); Mean Platelet Vol. 8.5 fl (6.2-12.0); Monocyte# 1.33 X10^3/uL; Monocyte% 11.4 % (0-10); NRBC Flagged by Analyzer 0 % (0-5); Neutrophil # 9.18 X10^3/uL (2.7-7.7); Neutrophil % 78.6 % (47-70); Platelet Count 222 K/mm3 (150-450); RBC Distribution Width CV 14.1 % (11.6-14.6); RBC Distribution Width SD 49.2 fl (35.1-43.9); Red Blood Count 2.67 M/mm3 (4.6-6.2); White Blood Count 11.7 K/mm3 (4.4-11.0)
[2020-11-01 15:26] LABS: International Normalized Ratio 2.1
[2020-11-01 15:27] LABS: Partial Thromboplast Time 47.6 Seconds (24.1-36.2)
[2020-11-01 15:36] LABS: ALB/GLOB Ratio 0.6 RATIO (0.9-2.4); AST(SGOT) 25 U/L (15-37); Alanine Aminotransfer ALT/SGPT 40 U/L (16-61); Albumin, Serum 2.6 g/dL (3.2-5.0); Alkaline Phosphatase 138 U/L (45-117); Anion Gap 8 (5-15); BUN 54 mg/dL (7-18); BUN/Creat Ratio 8.2 RATIO (10-20); CPK Total, Creatine Kinase 29 U/L (39-308); Calcium,Total 8.6 mg/dL (8.5-10.1); Chloride 88 mmol/L (98-107); Creatinine, Serum 6.56 mg/dL (0.70-1.30); EST Glomerular Filtration Rate 9 mL/min (>60); Est Glom Filt Rate - Afr Amer 11 mL/min (>60); Globulin 4.1 g/dL (2.2-4.2); Glucose 131 mg/dL (74-106); Potassium 4.2 mmol/L (3.5-5.1); Protein, Total 6.7 g/dL (6.4-8.2); Sodium Level 127 mmol/L (136-145)
[2020-11-01 15:40] LABS: Lactic Acid 1.3 mmol/L (0.4-1.9)
--- NOTE | 2020-11-01 15:41 | CT_ITS ---
STUDY: CT ABDOMEN AND PELVIS WITHOUT CONTRAST REASON FOR EXAM: Male, 60 years old. back pain, fever RADIATION DOSAGE (If Supplied By Facility): CTDIvol = ( 24.15 ) mGy, DLP = ( 1333.23 ) mGycm TECHNIQUE: Transaxial images were obtained from the dome of the diaphragm to the symphysis pubis without oral contrast, and without intravenous contrast. Sagittal and coronal images were reconstructed. Individualized dose optimization techniques were used for this CT. COMPARISON: Chest CT 04/17/2019 FINDINGS: There are chronic interstitial fibrotic changes of the lung bases. Heart is mildly enlarged. Normal liver. Gallbladder is contracted with a least one gallstone. There is moderate splenomegaly. Craniocaudal length of the spleen measures 16 cm. Normal pancreas. Normal bilateral adrenal glands. Small bilateral renal calculi. No hydronephrosis or ureteral calculi. Round soft tissue density measuring 3.8 cm medial to the posterior spleen on image 68 of series 2 also abuts the posterior superior kidney. Likely represents a splenule rather than exophytic renal lesion, although the latter cannot be excluded. Limited evaluation without IV contrast. However, grossly similar to prior chest CT (2019) although was not fully imaged on prior study. Normal visualized stomach. Normal small intestine. Normal colon. The appendix is visualized and appears normal. Normal abdominal aorta. Normal inferior vena cava. Normal retroperitoneum. Nondistended urinary bladder. Surgical clips of the left groin region Normal abdominal wall. There are diffuse degenerative changes of the visualized lumbar spine. Acquired canal narrowing at multiple lumbar levels. CT/Abdomen/Pelvis without Cont IMPRESSION: 1. No focal fluid collection or acute inflammatory process. 2. Moderate splenomegaly. 3. Bilateral nephrolithiasis without hydronephrosis. 4. Probable splenule versus exophytic left renal lesion, limited evaluation without IV contrast. Recommend nonemergent renal protocol CT without and with IV contrast. 5. Cholelithiasis, contracted gallbladder. Electronically Signed: Blaise Ly MD ([place]) at 16:00 EDT , Service support ,
[2020-11-01 16:20] LABS: Mucous, Urine 0 SEEN /hpf (<or=2+)
[2020-11-01 16:24] LABS: Color, Urine Yellow (Yellow); Glucose, Dipstick Normal (Normal); Ketone-Dipstick Negative (Negative); Leukocyte Esterase-Dipstick 500 /ul (Negative); Nitrite-Dipstick Negative (Negative); Occult Blood-Urine 250 /ul (Negative); Protein-Dipstick 30 mg/dl (Negative); Specific Gravity, Urine 1.015 (1.002-1.030); Urine Clarity Sl. Cloudy (Clear); Urine Urobilinogen Normal (Normal)
[2020-11-01 16:26] LABS: Urine Bilirubin Dipstick 1 mg/dL (Negative)
[2020-11-01 16:31] LABS: Bacteria 2+ /hpf (None Seen); Red Blood Cells-Urine 50-100 SEEN /hpf (0-5); Squamous Epithelial Cells - UA 5-10 SEEN /hpf (0-5); White Blood Cells 5-10 SEEN /hpf (0-5)
[2020-11-01] MEDS: HYDROcodone Bitartrate/Apap 5/325 Tablet PO (17:56)
== END 2020-11-01 18:15 | disposition home or self-care (01) ==
PROVIDERS: Emergency Provider Emergency Medicine; PCP Family Medicine
DX: N39.0 Urinary tract infection, site not specified (principal); M54.9 Dorsalgia, unspecified; J96.11 Chronic respiratory failure with hypoxia; I48.91 Unspecified atrial fibrillation; I13.2 Hypertensive heart and chronic kidney disease with heart failure and with stage 5 chronic kidney disease, or end stage renal disease; I50.32 Chronic diastolic (congestive) heart failure; E11.22 Type 2 diabetes mellitus with diabetic chronic kidney disease; N18.5 Chronic kidney disease, stage 5; E78.5 Hyperlipidemia, unspecified; E66.01 Morbid (severe) obesity due to excess calories; Z79.899 Other long term (current) drug therapy; Z79.4 Long term (current) use of insulin; Z99.81 Dependence on supplemental oxygen; Z79.01 Long term (current) use of anticoagulants; Z99.2 Dependence on renal dialysis; Z87.891 Personal history of nicotine dependence
CPT/HCPCS: 71045; 74176; 80053; 81001; 82550; 83605; 85025; 85610; 85730; 87040; 87077; 87086; 87088; 87149; 87186; 93005; 96365; 96367; 99285; J7050; A4216; J0696

== ENCOUNTER 2020-11-29 11:25 | Inpatient (IN) | payer MEDICARE, SELFPAY ==
[2020-11-29] VITALS (14 sets, daily range): BP systolic 75–114; BP diastolic 41–62; PULSE 35–79; RESP 12–28; TEMP 36.4–36.6; O2SAT 98–100; BMI 48.6; BMI 47.9
--- NOTE | 2020-11-29 12:14 | EDS_ITS ---
HPI History of Present Illness Chief Complaint: Flank Pain Informant: patient and spouse/S.O. Narrative Narrative: Patient is a 60-year-old male with a past medical history of end- stage renal disease on dialysis who presents to the emergency department for back pain. This is bilateral lower flanks. He has had this many times before in the past. He had a work-up for this in the emergency department recently. Patient was supposed to go to dialysis yesterday but was not able to get up out of bed due to the pain. He was supposed to get it rescheduled for today but they were unable to get him up out of the bed with a gait belt. Patient has been taking morphine at home which has not been providing significant relief. He states that his urine has turned darker. He does make decent amount of urine output at baseline. He denies any fevers or chills. He did have an episode of vomiting this morning. He denies any significant abdominal pain. No change in bowel movements. No pain going down his legs. No saddle anesthesia. Any movement seems to exacerbate his symptoms. [facility] Medical History (Updated 11/29/20 @ 15:[address] Cj Remy, ) Acute on chronic congestive heart failure MOUNA (acute kidney injury) Atrial fibrillation CHF (congestive heart failure) Chronic diastolic congestive heart failure Chronic kidney disease (CKD) Chronic renal failure, stage 5 Diabetes mellitus, type II History of arm fracture History of atrial flutter History of paroxysmal supraventricular tachycardia History of patent ductus arteriosus as a child Hyperkalemia Hyperlipidemia Hypertension intermediate current use of anticoagulant Morbid obesity with BMI of 50.0-59.9, adult Nonrheumatic tricuspid valve regurgitation LASHAWN (obstructive sleep apnea) Paroxysmal SVT (supraventricular tachycardia) Problem with dialysis access Pulmonary hypertension, moderate to severe Supratherapeutic INR Home Medications atorvastatin 20 mg PO QHS 04/16/19 [History Last Taken 10/31/20] insulin lispro 5 unit SC LUNCH insuln.pen 04/28/19 [Rx Last Taken 10/31/20] insulin lispro 7 unit SC BREAKFAST insuln.pen 04/28/19 [Rx Last Taken 11/01/20] docusate sodium 100 mg PO BID PRN PRN 11/21/19 [History Last Taken 11/01/20] melatonin 3 mg PO QHS PRN 11/21/19 [History Last Taken 07/05/20] insulin lispro 6 unit SC DINNER 12/29/19 [History Last Taken 10/31/20] insulin lispro See Protocol SC ACHS 12/29/19 [History Last Taken 11/01/20] tamsulosin 0.4 mg PO QHS 12/29/19 [History Last Taken 10/31/20] warfarin 3 mg PO SUMOTUWETHFR 06/10/20 [History Last Taken 10/31/20] insulin glargine 100 unit/mL (3 mL) subcutaneous pen 15 unit SC BID ml 08/23/20 [History Last Taken 11/01/20] amiodarone 200 mg PO DAILY 11/01/20 [History Last Taken 11/01/20] cephalexin 500 mg PO Q12 5 Days #10 cap 11/01/20 [Rx Last Taken Unknown] furosemide 80 mg PO BID 11/01/20 [History Last Taken 11/01/20] hydrocodone-acetaminophen 1 tab PO Q6H PRN 3 Days #12 tab 11/01/20 [Rx Last Taken Unknown] warfarin 6 mg PO SA 11/01/20 [History Last Taken 10/26/20] Allergy/AdvReac Type Severity Reaction Status Date / Time albuterol AdvReac increased Verified 11/29/20 11:30 heart rate amoxicillin trihydrate AdvReac Diarrhea Verified 11/29/20 11:30 [From Augmentin] indomethacin [From Indocin] AdvReac Nausea Verified 11/29/20 11:30 potassium clavulanate AdvReac Diarrhea Verified 11/29/20 11:30 [From Augmentin] Family History Mother , of complications post valve surgery Hypertension Diabetes CVA (cerebral vascular accident) X2 Valvular heart disease Father CVA (cerebral vascular accident) Hypertension Hyperlipidemia Surgical History History of radiofrequency ablation procedure for cardiac arrhythmia History of right and left heart catheterization (02/18/98) History of ventricular septal defect repair history transposition AV Fistula left forearm (~04/02/20) Social History Smoking Status: Former smoker how long ago did patient quit smokin years ago alcohol intake: current alcohol intake frequency: holidays/special occasions only substance use type: does not use caffeine: No ROS ROS ED Constitutional Constitutional ED: Denies chills or fever(s) Eyes Eyes: Denies change in vision ENT ENT ED: Denies epistaxis or rhinorrhea Cardiovascular Cardiovascular: Denies chest pain Respiratory/Chest Respiratory/Chest: Reports dyspnea; Denies cough or dyspnea on exertion Gastrointestinal Gastrointestinal: Reports nausea and vomiting; Denies abdominal pain or diarrhea Genitourinary Genitourinary ED: Denies dysuria, hematuria or urinary frequency Musculoskeletal Musculoskeletal: Reports back pain; Denies neck pain Integumentary Denies rash Neurologic Neurologic: Denies dizziness, headache(s) or weakness EXAM Physical Exam Const Vital Signs: 11/29/20 11:26 Temperature 97.7 F L Temperature Source Oral Pulse Rate 69 Respiratory Rate 18 Blood Pressure 103/45 L Blood Pressure Mean 64 Pulse Ox 98 Oxygen Delivery Method Nasal Cannula Oxygen Flow Rate (L/min) 4 Positive obese General Appearance ED: NAD Nutritional Appearance: obese HEENT Reports normocephalic, head/scalp atraumatic and moist mucous membranes Eyes PERRL and EOMs intact bilaterally Neck no lymphadenopathy and supple General: Negative for tenderness Chest Wall inspection of chest normal Resp normal respiratory effort and clear to auscultation bilaterally Auscultation: Negative for rales, rhonchi or wheezes Cardio regular rate, regular rhythm and no murmurs GI normal to inspection, nondistended, normoactive bowel sounds and non-tender Palpation: soft; Negative for guarding or rebound tenderness present Back/Spine Back/Spine Narrative: Patient unable to move from supine position. Cannot do appropriate back examination. Extremity normal to inspection General Extremety ED: Negative for tenderness Neuro no sensory deficits noted Sensorium / Orientation: alert Motor Exam: strength 5/5 throughout Psych mental status grossly normal Skin no rashes or lesions noted MDM MDM MDM Narrative Medical decision making narrative: Patient presents to the emergency department for back pain. He has been unable to get up out of bed. This is a acute on chronic exacerbation for him. He missed his dialysis yesterday and today because of the pain and inability to get up. Will check basic lab work and give morphine for symptomatic treatment. Patient's lab work came back with an elevating white blood cell count. He is mildly anemic but this appears to be stable from his last lab draw 7 days prior. His sodium is 126 which appears to be chronic as well. His potassium was 5.9 with a creatinine of 7.7. Given the fact patient is not able to make it to dialysis he will need to be admitted for this to be done. He has continued to have back pain and this was treated with a dose of IV Dilaudid. Patient's urine did come back positive for urinary tract infection. He has grown out Enterococcus faecalis in the past. He is started on IV Rocephin. He otherwise has remained stable throughout ED stay. Lab Data Labs: Laboratory Results - last 24 hr 11/29/20 11/29/20 11/29/20 11:33 13:20 13:45 WBC 14.8 H RBC 2.80 L Hgb 8.4 L Hct 27.1 L MCV 96.8 H MCH 30.0 MCHC 31.0 L RDW Std Deviation 56.8 H RDW Coeff of Janiya 15.9 H Plt Count 136 L MPV 9.2 Immature Gran % (Auto) 1.400 H Neut % (Auto) 75.1 H Lymph % (Auto) 8.6 L Grand % (Auto) 14.0 H Eos % (Auto) 0.7 Baso % (Auto) 0.2 Absolute Neuts (auto) 11.1 H Absolute Lymphs (auto) 1.28 Nucleated RBC % 0 Diff Path Review May foll Sodium Potassium Chloride Carbon Dioxide Anion Gap BUN Creatinine Estim Creat Clear Calc Est GFR (MDRD) Af Amer Est GFR (MDRD) Non-Af BUN/Creatinine Ratio Glucose Lactic Acid 2.3 H* Calcium Total Bilirubin AST ALT Alkaline Phosphatase Total Protein Albumin Globulin Albumin/Globulin Ratio Urine Color Yellow Urine Clarity Cloudy Urine pH 5.0 Ur Specific [place] 1.015 Urine Protein 100 H Urine Glucose (UA) Normal Urine Ketones 5 H Urine Occult Blood 250 H Urine Nitrite Positive H Urine Bilirubin 3 H Urine Urobilinogen 1 H Ur Leukocyte Esterase 500 H Urine RBC 50-100 SEEN Urine WBC 25-50 SEEN Ur Squamous Epith Cells 5-10 SEEN Urine Bacteria 2+ Urine Mucus 0 SEEN 11/29/20 13:45 WBC RBC Hgb Hct MCV MCH MCHC RDW Std Deviation RDW Coeff of Janiya Plt Count MPV Immature Gran % (Auto) Neut % (Auto) Lymph % (Auto) Grand % (Auto) Eos % (Auto) Baso % (Auto) Absolute Neuts (auto) Absolute Lymphs (auto) Nucleated RBC % Diff Path Review Sodium 126 L Potassium 5.9 H Chloride 84 L Carbon Dioxide 32.0 Anion Gap 10 BUN 63 H Creatinine 7.70 H* Estim Creat Clear Calc 9.62 Est GFR (MDRD) Af Amer 9 L Est GFR (MDRD) Non-Af 8 L BUN/Creatinine Ratio 8.2 L Glucose 129 H Lactic Acid Calcium 8.4 L Total Bilirubin 0.70 AST 30 ALT 29 Alkaline Phosphatase 158 H Total Protein 6.5 Albumin 2.7 L Globulin 3.8 Albumin/Globulin Ratio 0.7 L Urine Color Urine Clarity Urine pH Ur Specific [place] Urine Protein Urine Glucose (UA) Urine Ketones Urine Occult Blood Urine Nitrite Urine Bilirubin Urine Urobilinogen Ur Leukocyte Esterase Urine RBC Urine WBC Ur Squamous Epith Cells Urine Bacteria Urine Mucus Radiography Diagnostic Testing: Radiology Impression Abdomen/Pelvis CT 11/29/20 13:45 IMPRESSION: Essentially stable examination. Splenomegaly with the splenic cysts. Nonobstructive bilateral nephrolithiasis. Multiple small layering gallstones. Electronically Signed: Fortunato Francisco MD at 14:43 EDT , Service support , Discharge Plan Dx/Rx/DC Orders Clinical Impression: Acute UTI, Intractable back pain, ESRD (end stage renal disease) Disposition Disposition: Acute Care [facility]
[2020-11-29] MEDS: Morphine 4 MG/ML Syringe IV (12:46)
[2020-11-29 13:30] LABS: Mucous, Urine 0 SEEN /hpf (<or=2+)
[2020-11-29 13:31] LABS: Color, Urine Yellow (Yellow); Glucose, Dipstick Normal (Normal); Ketone-Dipstick 5 mg/dl (Negative); Leukocyte Esterase-Dipstick 500 /ul (Negative); Nitrite-Dipstick Positive (Negative); Occult Blood-Urine 250 /ul (Negative); Protein-Dipstick 100 mg/dl (Negative); Specific Gravity, Urine 1.015 (1.002-1.030); Urine Clarity Cloudy (Clear); Urine Urobilinogen 1 mg/dl (Normal)
[2020-11-29 13:32] LABS: Urine Bilirubin Dipstick 3 mg/dL (Negative)
[2020-11-29 13:39] LABS: Bacteria 2+ /hpf (None Seen); Red Blood Cells-Urine 50-100 SEEN /hpf (0-5); Squamous Epithelial Cells - UA 5-10 SEEN /hpf (0-5); White Blood Cells 25-50 SEEN /hpf (0-5)
--- NOTE | 2020-11-29 13:45 | CT_ITS ---
STUDY: CT ABDOMEN AND PELVIS WITHOUT CONTRAST REASON FOR EXAM: Male, 60 years old. UTI, b/l flank pain, eval for stones/pyelo RADIATION DOSAGE (If Supplied By Facility): CTDIvol = ( 27.35 ) mGy, DLP = ( 2459.58 ) mGycm TECHNIQUE: Transaxial images were obtained from the dome of the diaphragm to the symphysis pubis without oral contrast, and without intravenous contrast. Sagittal and coronal images were reconstructed. Individualized dose optimization techniques were used for this CT. COMPARISON: Comparison is made with prior examination dated 11/01/2020. FINDINGS: Persistent bibasilar fibrotic changes. Cardiomegaly. Coronary artery calcification. Normal liver. There are multiple small layering gallstones. There is moderate splenomegaly. There is a stable 7.5 cm x 6.7 cm hypodense mass in the inferior medial portion of the spleen. This is unchanged. There is also evidence of a cyst along the inferior medial margin of the spleen measuring 3.8 cm x 3.1 cm. Normal pancreas. Normal bilateral adrenal glands. Stable small bilateral nonobstructive intrarenal calculi. There is fluid distention of the stomach. Normal small intestine. Normal colon. The appendix is visualized and appears normal. Normal abdominal aorta. Normal inferior vena cava. Normal retroperitoneum. Normal urinary bladder. There are prostatic calcifications. Surgical clips are seen in the left inguinal region most likely secondary to prior hernia repair. Increased markings are seen within the subcutaneous fat overlying the panniculus inferiorly with overlying skin thickening. There are diffuse degenerative changes of the visualized lumbar spine. CT/Abdomen/Pelvis without Cont IMPRESSION: Essentially stable examination. Splenomegaly with the splenic cysts. Nonobstructive bilateral nephrolithiasis. Multiple small layering gallstones. Electronically Signed: Fortunato Francisco MD at 14:43 EDT , Service support ,
[2020-11-29 14:00] LABS: Absolute Lymphocyte Count 1.28 X10^3/uL (0.83-4.51); Absolute Neutrophil Count 11.1 X10^3/uL (2.0-7.7); Basophil# 0.03 X10^3/uL; Basophil% 0.2 % (0-1); Eosinophil# 0.11 X10^3/uL; Eosinophils% 0.7 % (0-5); Hematocrit 27.1 % (40-54); Hemoglobin 8.4 g/dL (13.0-16.5); Lymphocyte # 1.28 X10^3/ul (0.83-4.51); Lymphocyte % 8.6 % (19-41); Mean Corpuscular Volume 96.8 fL (80-94); Mean Platelet Vol. 9.2 fl (6.2-12.0); Monocyte# 2.07 X10^3/uL; NRBC Flagged by Analyzer 0 % (0-5); Neutrophil % 75.1 % (47-70); POSITIVE DIFFERENTIAL YES; Platelet Count 136 K/mm3 (150-450); RBC Distribution Width CV 15.9 % (11.6-14.6); RBC Distribution Width SD 56.8 fl (35.1-43.9); White Blood Count 14.8 K/mm3 (4.4-11.0)
[2020-11-29 14:03] LABS: Differential Indicated SCAN CRITERIA MET
[2020-11-29] MEDS: HYDROmorphone 1 MG/ML Syringe IV (14:14)
--- NOTE | 2020-11-29 14:36 | ED.RN ---
1400 dr. Remy aware unawre to get blood from patient and lab maría elena with minimal success. unable to obtain blood cultures.
[2020-11-29 14:46] LABS: Lactic Acid 2.3 mmol/L (0.4-1.9)
[2020-11-29 14:53] LABS: ALB/GLOB Ratio 0.7 RATIO (0.9-2.4); AST(SGOT) 30 U/L (15-37); Alanine Aminotransfer ALT/SGPT 29 U/L (16-61); Albumin, Serum 2.7 g/dL (3.2-5.0); Alkaline Phosphatase 158 U/L (45-117); Anion Gap 10 (5-15); BUN 63 mg/dL (7-18); BUN/Creat Ratio 8.2 RATIO (10-20); Calcium,Total 8.4 mg/dL (8.5-10.1); Chloride 84 mmol/L (98-107); EST Glomerular Filtration Rate 8 mL/min (>60); Est Glom Filt Rate - Afr Amer 9 mL/min (>60); Estimated Creatinine Clearance 9.62 ml/min; Globulin 3.8 g/dL (2.2-4.2); Glucose 129 mg/dL (74-106); Potassium 5.9 mmol/L (3.5-5.1); Protein, Total 6.5 g/dL (6.4-8.2); Sodium Level 126 mmol/L (136-145)
--- NOTE | 2020-11-29 15:09 | HP.PCM.HOS_ITS ---
HPI - General General Date of Admission: 11/29/20 HPI Narrative SHERRIE GUERRIER, is a 60 M with a PMH as outlined who presents with a complaint of back pain and bilateral flank pain. He has ESRD on hemodialysis, and missed his appointment yesterday because of back pain; he rescheduled for today, but couldnt go due to the persistent back pain. Back pain has been going on for about 2 days, and was initially bilateral, but has now localised to the left flank. He denies fever, chills but admitted to general malaise, nausea or vomiting. He still makes urine, and whilst he denies dysuria, he says his urine is very concentrated and has a bit of an odor to it. Review of systems was otherwise negative. Vitals were BP of 109.52, DC of 67, RR of 18 and temp of 97.7F. Labs showed WBC of 14.8 with hemoglobin of 8.4 and platelets of 136. Chemistry shows sodium of 129 with potassium of 5.9 and creatinine of 7.7. Lactic acid was 2.3. Urinalysis showed evidence of UTI with elevated leukocyte esterase and positive nitrites as well as 2+ bacteria. He has been admitted to be managed for sepsis due to UTI and left-sided pyelonephritis. He was started on IV ceftriaxone in the ED. [facility] Medical History (Updated 11/29/20 @ 18:[address] Marycruz Serrano MD) Acute on chronic congestive heart failure MOUNA (acute kidney injury) Atrial fibrillation CHF (congestive heart failure) Chronic diastolic congestive heart failure Chronic kidney disease (CKD) Chronic renal failure, stage 5 Diabetes mellitus, type II History of arm fracture History of atrial flutter History of paroxysmal supraventricular tachycardia History of patent ductus arteriosus as a child Hyperkalemia Hyperlipidemia Hypertension penitentiary current use of anticoagulant Morbid obesity with BMI of 50.0-59.9, adult Nonrheumatic tricuspid valve regurgitation LASHAWN (obstructive sleep apnea) Paroxysmal SVT (supraventricular tachycardia) Problem with dialysis access Pulmonary hypertension, moderate to severe Supratherapeutic INR Home Medications atorvastatin 20 mg PO QHS 04/16/19 [History Last Taken 11/27/20] insulin lispro 5 unit SC LUNCH insuln.pen 04/28/19 [Rx Last Taken 11/27/20] insulin lispro 7 unit SC BREAKFAST insuln.pen 04/28/19 [Rx Last Taken 11/29/20] docusate sodium 100 mg PO BID PRN PRN 11/21/19 [History Last Taken 11/29/20] melatonin 3 mg PO QHS PRN 11/21/19 [History Last Taken 07/05/20] insulin lispro 6 unit SC DINNER 12/29/19 [History Last Taken 11/27/20] insulin lispro See Protocol SC ACHS 12/29/19 [History Last Taken 11/27/20] tamsulosin 0.4 mg PO QHS 12/29/19 [History Last Taken 11/27/20] warfarin 3 mg PO SUMOTUWETHFR 06/10/20 [History Last Taken 11/27/20] insulin glargine 100 unit/mL (3 mL) subcutaneous pen 15 unit SC BID ml 08/23/20 [History Last Taken 11/29/20] amiodarone 200 mg PO DAILY 11/01/20 [History Last Taken 11/29/20] furosemide 80 mg PO BID 11/01/20 [History Last Taken 11/29/20] warfarin 6 mg PO SA 11/01/20 [History Last Taken 11/23/20] magnesium hydroxide [Milk of Magnesia] 30 - 60 ml PO DAILY PRN 11/29/20 [History Last Taken 11/29/20] Allergy/AdvReac Type Severity Reaction Status Date / Time albuterol AdvReac increased Verified 11/29/20 11:30 heart rate amoxicillin trihydrate AdvReac Diarrhea Verified 11/29/20 11:30 [From Augmentin] indomethacin [From Indocin] AdvReac Nausea Verified 11/29/20 11:30 potassium clavulanate AdvReac Diarrhea Verified 11/29/20 11:30 [From Augmentin] Family History Mother , of complications post valve surgery Hypertension Diabetes CVA (cerebral vascular accident) X2 Valvular heart disease Father CVA (cerebral vascular accident) Hypertension Hyperlipidemia Surgical History History of radiofrequency ablation procedure for cardiac arrhythmia History of right and left heart catheterization (02/18/98) History of ventricular septal defect repair history transposition AV Fistula left forearm (~04/02/20) Social History Smoking Status: Former smoker how long ago did patient quit smokin years ago alcohol intake: current alcohol intake frequency: holidays/special occasions only substance use type: does not use caffeine: No ROS Constitutional Constitutional: Reports fatigue, malaise and weakness; Denies anorexia, change in weight, chills or fever(s) ENT HEENT: Denies nasal congestion Cardiovascular Cardiovascular: Denies chest pain, dyspnea on exertion, edema, lightheadedness, orthopnea or palpitations Respiratory/Chest Respiratory/Chest: Denies cough, dyspnea, hemoptysis, productive cough, shortness of breath at rest or shortness of breath with exertion Gastrointestinal Gastrointestinal: Reports abdominal pain Vital Signs Vital Signs Vital Signs: 11/29/20 11:26 Temperature 97.7 F L Temperature Source Oral Pulse Rate 69 Respiratory Rate 18 Blood Pressure 103/45 L Blood Pressure Mean 64 Pulse Ox 98 Oxygen Delivery Method Nasal Cannula Oxygen Flow Rate (L/min) 4 Weight Weight: 319 lb 10.724 oz Body Mass Index (BMI) 48.6 Results Lab / Micro Data Result Diagrams: 11/29/20 13:45 11/29/20 13:45 Labs: Laboratory Results - last 24 hr 11/29/20 11:33: Lactic Acid 2.3 H* 11/29/20 13:20: Urine Color Yellow, Urine Clarity Cloudy, Urine pH 5.0, Ur Specific [place] 1.015, Urine Protein 100 H, Urine Glucose (UA) Normal, Urine Ketones 5 H, Urine Occult Blood 250 H, Urine Nitrite Positive H, Urine Bilirubin 3 H, Urine Urobilinogen 1 H, Ur Leukocyte Esterase 500 H, Urine RBC 50-100 SEEN, Urine WBC 25-50 SEEN, Ur Squamous Epith Cells 5-10 SEEN, Urine Bacteria 2+, Urine Mucus 0 SEEN 11/29/20 13:45: WBC 14.8 H, RBC 2.80 L, Hgb 8.4 L, Hct 27.1 L, MCV 96.8 H, MCH 30.0, MCHC 31.0 L, RDW Std Deviation 56.8 H, RDW Coeff of Janiya 15.9 H, Plt Count 136 L, MPV 9.2, Immature Gran % (Auto) 1.400 H, Neut % (Auto) 75.1 H, Lymph % (Auto) 8.6 L, [place] % (Auto) 14.0 H, Eos % (Auto) 0.7, Baso % (Auto) 0.2, Absolute Neuts (auto) 11.1 H, Absolute Lymphs (auto) 1.28, Nucleated RBC % 0, Diff Path Review August11/29/20 13:45: Sodium 126 L, Potassium 5.9 H, Chloride 84 L, Carbon Dioxide 32.0, Anion Gap 10, BUN 63 H, Creatinine 7.70 H*, Estim Creat Clear Calc 9.62, Est GFR (MDRD) Af Amer 9 L, Est GFR (MDRD) Non-Af 8 L, BUN/Creatinine Ratio 8.2 L, Glucose 129 H, Calcium 8.4 L, Total Bilirubin 0.70, AST 30, ALT 29, Alkaline Phosphatase 158 H, Total Protein 6.5, Albumin 2.7 L, Globulin 3.8, Albumin/Globulin Ratio 0.7 L Radiology Impression Abdomen/Pelvis CT 11/29/20 13:45 IMPRESSION: Essentially stable examination. Splenomegaly with the splenic cysts. Nonobstructive bilateral nephrolithiasis. Multiple small layering gallstones. Electronically Signed: Fortunato Francisco MD at 14:43 EDT , Service support , Assessment & Plan Assessment/Plan (1) Acute UTI: (2) Pyelonephritis: PLAN: # sepsis due to UTI with acute left pyelonephritis * admit to PCU * cannot hydrate with IVF due to ESRD for which he missed dialysis. * started on IV ceftriaxone in the ED; will continue * get blood and urine cultures. * #lactic acidosis * lactic acid was 2.3. * cannot hydrate due to ESRD. * should improve with dialysis. * #ESRD * on dialysis T/T/S * missed dialysis yesterday; didnt go today either as he was too weak. * nephrology consulted for dialysis. Dr Sauceda verbally informed. * #Hyperkalemia: K is 5.9. Likely due to ESRD. for dialysis today. #Atrial fibrillation: on amiodarone. coumadin. INR is pending. #Type 2 diabetes mellitus * on lantus 15 units bid. ISS. Accuchecks ACHS * * #Hyponatremia: sodium is low at 126. is chronic. will monitor. #BPH: on flomax #HFpEF: not in exacerbation. On lasix 80mg bid. #Hyperlipidemia: on statin. DVT prophylaxis: on coumadin already, so not indicated. Code status: full code * Patient counseled extensively about different types of CODE STATUS including full code, DNR CCA and DNR CCA. * Patient elects to be full code. * Total [id number] time 16 minutes. Charges/Coding Visit Charges Inpatient E&M: 50266 Init Hosp L3 Multi Select Codes Hospitalists' Procedures Procedures: 16336 Advncd Care Plan 30 Min
--- NOTE | 2020-11-29 15:16 | NURSING ---
PCU KORAM UTI, LOW BACK PAIN, ESRD
[2020-11-29 18:01] LABS: Reflex Lactate? Y
[2020-11-29 18:22] LABS: International Normalized Ratio 3.6; Prothrombin Time (Protime)PT. 34.9 SECONDS (11.7-14.9)
[2020-11-29 18:35] LABS: Troponin-I HS 18 pg/mL (3.0-78.0)
[2020-11-29] MEDS: Furosemide 80 MG Tablet PO (18:57)
[2020-11-29] MEDS: oxyCODONE 5 MG Tablet 10 MG PO (19:00)
--- NOTE | 2020-11-29 19:25 | EKG12_ITS ---
Test Reason : DENNY Blood Pressure : / mmHG Vent. Rate : 055 BPM Atrial Rate : 064 BPM P-R Int : 000 ms QRS Dur : 164 ms QT Int : 496 ms P-R-T Axes : 000 132 039 degrees QTc Int : 474 ms Atrial fibrillation Right bundle branch block Abnormal ECG When compared with ECG of 29-NOV-2020 19:32, MANUAL COMPARISON REQUIRED, DATA IS UNCONFIRMED Confirmed by SCOTT HAMLIN, PHILLIP ([id number]), assignment desk editor JAVIER GREEN ([id number]) on 12/03/2020 8:07:11 AM Referred By: DR CASTRO Confirmed By:PHILLIP CHAVEZ MD
--- NOTE | 2020-11-29 20:25 | EKG12_ITS ---
Test Reason : BRAYCARDIA Blood Pressure : / mmHG Vent. Rate : 035 BPM Atrial Rate : 035 BPM P-R Int : 464 ms QRS Dur : 164 ms QT Int : 520 ms P-R-T Axes : -74 138 088 degrees QTc Int : 396 ms Unusual P axis, possible ectopic atrial bradycardia Right bundle branch block Abnormal ECG When compared with ECG of 01-NOV-2020 14:56, Ectopic atrial rhythm has replaced Atrial fibrillation Vent. rate has decreased BY 39 BPM QRS duration has increased QT has shortened Confirmed by SCOTT HAMLIN, PHILLIP ([id number]), state editor JAVIER GREEN ([id number]) on 12/03/2020 8:07:37 AM Referred By: DR GEORGES Confirmed By:PHILLIP CHAVEZ MD
--- NOTE | 2020-11-29 20:26 | PCM.PN.BLA ---
Progress Note RAPID RESPONSE: Patient with symptomatic bradycardia. BP in 70S. HR in 30s to 40s. Potassium 5.9. ACLS with atropine of total 3mg. Calcium gluconate and bicarb given. Dialysis nurse to discuss with nephrology for possible electrolytes changes/replacement without fluid removal Discussed with Cardiology. Will give insulin and glucose.
[2020-11-29] MEDS: Calcium Gluconate 1 GM/10 ML Vial 2 GM IV (21:10)
[2020-11-29] MEDS: Insulin Lispro 10 UNIT in Syringe 0 ML 6 UNIT IV (21:30)
[2020-11-29] MEDS: Dextrose 50%-Water 25 GM/50 ML DISP.SYRIN IV (21:35)
[2020-11-29 21:45] LABS: Bedside Glucose 141 mg/dL (70-110)
[2020-11-29 22:00] LABS: Troponin-I HS 18 pg/mL (3.0-78.0)
--- NOTE | 2020-11-29 22:06 | NURSING ---
2200- Dr Hassan is at bedside assessing patient and preparing to place central line due to lack of access.
[2020-11-29 22:15] LABS: Lactic Acid 3.8 mmol/L (0.4-1.9)
--- NOTE | 2020-11-29 22:37 | OP.PCM_ITS ---
Problems Associated Problem List Diagnoses (1) Bradycardia: (2) Acute renal failure superimposed on chronic kidney disease, on chronic dialysis: (3) Vascular catheter fitting or adjustment: Report of Operation Date of Procedure: 11/29/20 Pre-Operative Diagnosis: Vascular fitting and adjustment Post-Operative Diagnosis: Same Surgery/Procedure Performed:: Placement of a left subclavian triple-lumen catheter Surgeon: Elier Hassan data governance consultant: None Type of Anesthesia: Local Estimated Blood Loss (mL): < 25 cc Description of Procedure: Received a phone call from the hospitalist after this patient had a rapid response he only had a small 24-gauge in his hand he was in the intensive care unit and was in need of a triple-lumen catheter and asked for my assistance. Patient was not audibly responsive. He was having some labored breathing. Based upon his critical situation a central line was determined to be the best course of action for IV access. Consent had been obtained. I ultrasound the neck identified the internal jugular vein. The neck and chest were then sterilely prepped and draped in the usual fashion. Local was injected into the neck. I used the ultrasound to gain access into the internal jugular vein but the guidewire would not go down. I aborted this went to a subclavian injected local under the chest. Using Seldinger's technique I gained access to the subclavian vein. Guidewire was placed through the needle the needle was removed. Skin sherice was made. Dilator was placed over the guidewire and removed triple-lumen catheter was placed over the guidewire and then the guidewire was removed in its entirety and intact. Butterfly locking hub was placed onto the catheter a U stitch was used to suture it into the skin. All 3 lm were flushed with normal saline and flushed and irrigated well. Sterile dressings were applied. Portable chest x-ray was ordered. Chest x-ray showed the tip of the catheter to be in the superior vena cava. No signs of pneumothorax. Admit VTE Documentation VTE Present on Admission: No VTE Mechan Device Prophylaxis: None VTE Pharm Prophylaxis ordered?: No Reason prophylaxis not ordered:: Treatment Not Indicated
--- NOTE | 2020-11-29 22:50 | RAD_ITS ---
STUDY: X-RAY CHEST REASON FOR EXAM: Male, 60 years old. central line placement TECHNIQUE: Single AP portable view of the chest. COMPARISON: 11/01/2020 FINDINGS: Left PICC or subclavian central venous catheter with tip in the upper SVC. No pneumothorax. Dense patchy airspace disease bilaterally suggesting COVID. Remainder is unchanged RAD/CXR for Line Placement IMPRESSION: Left sided central venous catheter as above. No pneumothorax. Dense patchy airspace disease bilaterally Electronically Signed: Alan Albarado DO at 0:42 EDT Tel , Service support ,
--- NOTE | 2020-11-29 23:50 | NURSING ---
Patient on monitor bradycardic 28. HR continued <40. BP 75/41. SENIOR CORPORATE ACCOUNTANT called. See SENIOR CORPORATE ACCOUNTANT document. Patient transferred to [id number].
[2020-11-30] VITALS (46 sets, daily range): BP systolic 76–140; BP diastolic 34–100; PULSE 67–105; RESP 12–27; TEMP 35.8–37.9; O2SAT 72–100
[2020-11-30 00:40] LABS: Bedside Glucose 103 mg/dL (70-110)
[2020-11-30 01:09] LABS: Troponin-I HS 22 pg/mL (3.0-78.0)
--- NOTE | 2020-11-30 01:16 | DIALYSIS ---
Hemodialysis x3 hours completed at 0035 on a 1K / 2K bath, tolerated fair, Levo started, UF 2500mL, accessed via LFA AVF using 15G needles, worked well, needles pulled post tx and stasis achieved without issue, next tx planned for Wednesday
--- NOTE | 2020-11-30 01:30 | NURSING ---
ASSUMED NURSING CARE @ THIS TIME
[2020-11-30 02:14] LABS: Absolute Lymphocyte Count 1.32 X10^3/uL (0.83-4.51); Absolute Neutrophil Count 12.5 X10^3/uL (2.0-7.7); Basophil# 0.04 X10^3/uL; Basophil% 0.2 % (0-1); Eosinophil# 0.08 X10^3/uL; Eosinophils% 0.5 % (0-5); Hematocrit 27.3 % (40-54); Lymphocyte # 1.32 X10^3/ul (0.83-4.51); Lymphocyte % 7.8 % (19-41); Mean Corp Hgb Conc 29.3 g/dL (32-36); Mean Corpuscular Hgb 29.5 pg (27.0-32.0); Mean Corpuscular Volume 100.7 fL (80-94); Mean Platelet Vol. 9.3 fl (6.2-12.0); Monocyte# 2.63 X10^3/uL; Monocyte% 15.6 % (0-10); NRBC Flagged by Analyzer 0.1 % (0-5); Neutrophil # 12.46 X10^3/uL (2.7-7.7); Neutrophil % 73.9 % (47-70); POSITIVE DIFFERENTIAL YES; Platelet Count 178 K/mm3 (150-450); RBC Distribution Width CV 15.9 % (11.6-14.6); RBC Distribution Width SD 58.8 fl (35.1-43.9); Red Blood Count 2.71 M/mm3 (4.6-6.2); White Blood Count 16.9 K/mm3 (4.4-11.0)
[2020-11-30 02:23] LABS: Differential Indicated SCAN CRITERIA MET; International Normalized Ratio 3.6; Prothrombin Time (Protime)PT. 34.8 SECONDS (11.7-14.9)
[2020-11-30 03:09] LABS: Differential Comment SCANNED
--- NOTE | 2020-11-30 03:12 | NURSING ---
0200-Dr Lawrence was paged due to amount of drainage/bleeding is coming from central line site. Dressing has been changed and reinforced and is saturated with blood. Manual pressure and sand bag has been placed. 0205- Dr. Lawrence is at bedside assessing line. New orders have been placed and sand bag is still in place.
--- NOTE | 2020-11-30 03:23 | RAD_ITS ---
STUDY: X-RAY CHEST REASON FOR EXAM: Male, 60 years old. Line placement TECHNIQUE: Portable, AP chest radiograph COMPARISON: 11/29/2020 FINDINGS: Left subclavian central catheter terminates over the mid to upper SVC. Similar appearance of bilateral dense patchy lung opacities. There is no demonstrated pleural abnormality. There is mild cardiac enlargement. Normal mediastinum and kelsie. Normal visualized pulmonary arteries. Normal visualized aortic arch and descending thoracic aorta. Normal visualized thoracic spine. Normal visualized ribs, clavicles, and shoulders. There is no demonstrated abnormality of the visualized soft tissue structures of the upper abdomen. RAD/Chest 1 View (Portable) IMPRESSION: Left subclavian central catheter terminates over the mid upper SVC. Similar appearance of bilateral multifocal pneumonia. Electronically Signed: Bhavin Christianson MD at 6:02 EDT Tel , Service support ,
--- NOTE | 2020-11-30 04:11 | SEPSIS_ITS ---
Sepsis Note Physical Exam/Vitals Objective: Abdomen/Pelvis CT 11/29/20 13:45 IMPRESSION: Essentially stable examination. Splenomegaly with the splenic cysts. Nonobstructive bilateral nephrolithiasis. Multiple small layering gallstones. Electronically Signed: Fortunato Francisco MD at 14:43 EDT , Service support , Chest X-Ray 11/29/20 22:50 IMPRESSION: Left sided central venous catheter as above. No pneumothorax. Dense patchy airspace disease bilaterally Electronically Signed: Alan Albarado DO at 0:42 EDT Tel , Service support , Temp Pulse Resp BP Pulse Ox 97.3 F L 74 14 121/46 H 94 11/30/20 01:00 11/30/20 03:00 11/30/20 03:00 11/30/20 03:00 11/30/20 03:00 11/30/20 11/30/20 11/30/20 01:50 01:50 01:50 WBC 16.9 H RBC 2.71 L Hgb 8.0 L Hct 27.3 L MCV 100.7 H MCH 29.5 MCHC 29.3 L D RDW Std Deviation 58.8 H RDW Coeff of Janiya 15.9 H Plt Count 178 MPV 9.3 Immature Gran % (Auto) 2.000 H Neut % (Auto) 73.9 H Lymph % (Auto) 7.[address] [place] % (Auto) 15.6 H Eos % (Auto) 0.5 Baso % (Auto) 0.2 Absolute Neuts (auto) 12.5 H Absolute Lymphs (auto) 1.32 Nucleated RBC % 0.1 Differential Comment SCANNED Diff Path Review August foll PT 34.8 H INR 3.6 APTT 80.0 H Sodium Potassium Chloride Carbon Dioxide Anion Gap BUN Creatinine Estim Creat Clear Calc Est GFR (MDRD) Af Amer Est GFR (MDRD) Non-Af BUN/Creatinine Ratio Glucose Lactic Acid Calcium Total Bilirubin AST ALT Alkaline Phosphatase Troponin I High Sens Total Protein Albumin Globulin Albumin/Globulin Ratio Urine Color Urine Clarity Urine pH Ur Specific [place] Urine Protein Urine Glucose (UA) Urine Ketones Urine Occult Blood Urine Nitrite Urine Bilirubin Urine Urobilinogen Ur Leukocyte Esterase Urine RBC Urine WBC Ur Squamous Epith Cells Urine Bacteria Urine Mucus POC Glucose Blood Type A POSITIVE 11/30/20 11/30/20 11/29/20 00:30 00:25 21:34 WBC RBC Hgb Hct MCV MCH MCHC RDW Std Deviation RDW Coeff of Jainya Plt Count MPV Immature Gran % (Auto) Neut % (Auto) Lymph % (Auto) [place] % (Auto) Eos % (Auto) Baso % (Auto) Absolute Neuts (auto) Absolute Lymphs (auto) Nucleated RBC % Differential Comment Diff Path Review PT INR APTT Sodium Potassium Chloride Carbon Dioxide Anion Gap BUN Creatinine Estim Creat Clear Calc Est GFR (MDRD) Af Amer Est GFR (MDRD) Non-Af BUN/Creatinine Ratio Glucose Lactic Acid Calcium Total Bilirubin AST ALT Alkaline Phosphatase Troponin I High Sens 22 Total Protein Albumin Globulin Albumin/Globulin Ratio Urine Color Urine Clarity Urine pH Ur Specific [place] Urine Protein Urine Glucose (UA) Urine Ketones Urine Occult Blood Urine Nitrite Urine Bilirubin Urine Urobilinogen Ur Leukocyte Esterase Urine RBC Urine WBC Ur Squamous Epith Cells Urine Bacteria Urine Mucus POC Glucose 103 141 H Blood Type 11/29/20 11/29/20 11/29/20 21:15 21:15 17:52 WBC RBC Hgb Hct MCV MCH MCHC RDW Std Deviation RDW Coeff of Janiya Plt Count MPV Immature Gran % (Auto) Neut % (Auto) Lymph % (Auto) [place] % (Auto) Eos % (Auto) Baso % (Auto) Absolute Neuts (auto) Absolute Lymphs (auto) Nucleated RBC % Differential Comment Diff Path Review PT 34.9 H INR 3.6 APTT Sodium Potassium Chloride Carbon Dioxide Anion Gap BUN Creatinine Estim Creat Clear Calc Est GFR (MDRD) Af Amer Est GFR (MDRD) Non-Af BUN/Creatinine Ratio Glucose Lactic Acid 3.8 H* Calcium Total Bilirubin AST ALT Alkaline Phosphatase Troponin I High Sens 18 Total Protein Albumin Globulin Albumin/Globulin Ratio Urine Color Urine Clarity Urine pH Ur Specific [place] Urine Protein Urine Glucose (UA) Urine Ketones Urine Occult Blood Urine Nitrite Urine Bilirubin Urine Urobilinogen Ur Leukocyte Esterase Urine RBC Urine WBC Ur Squamous Epith Cells Urine Bacteria Urine Mucus POC Glucose Blood Type 11/29/20 11/29/20 11/29/20 17:52 13:45 13:45 WBC 14.8 H RBC 2.80 L Hgb 8.4 L Hct 27.1 L MCV 96.8 H MCH 30.0 MCHC 31.0 L RDW Std Deviation 56.8 H RDW Coeff of Janiya 15.9 H Plt Count 136 L MPV 9.2 Immature Gran % (Auto) 1.400 H Neut % (Auto) 75.1 H Lymph % (Auto) 8.[address] [place] % (Auto) 14.0 H Eos % (Auto) 0.7 Baso % (Auto) 0.2 Absolute Neuts (auto) 11.1 H Absolute Lymphs (auto) 1.28 Nucleated RBC % 0 Differential Comment Diff Path Review May foll PT INR APTT Sodium 126 L Potassium 5.9 H Chloride 84 L Carbon Dioxide 32.0 Anion Gap 10 BUN 63 H Creatinine 7.70 H* Estim Creat Clear Calc 9.62 Est GFR (MDRD) Af Amer 9 L Est GFR (MDRD) Non-Af 8 L BUN/Creatinine Ratio 8.2 L Glucose 129 H Lactic Acid Calcium 8.4 L Total Bilirubin 0.70 AST 30 ALT 29 Alkaline Phosphatase 158 H Troponin I High Sens 18 Total Protein 6.5 Albumin 2.7 L Globulin 3.8 Albumin/Globulin Ratio 0.7 L Urine Color Urine Clarity Urine pH Ur Specific [place] Urine Protein Urine Glucose (UA) Urine Ketones Urine Occult Blood Urine Nitrite Urine Bilirubin Urine Urobilinogen Ur Leukocyte Esterase Urine RBC Urine WBC Ur Squamous Epith Cells Urine Bacteria Urine Mucus POC Glucose Blood Type 11/29/20 11/29/20 13:20 11:33 WBC RBC Hgb Hct MCV MCH MCHC RDW Std Deviation RDW Coeff of Janiya Plt Count MPV Immature Gran % (Auto) Neut % (Auto) Lymph % (Auto) [place] % (Auto) Eos % (Auto) Baso % (Auto) Absolute Neuts (auto) Absolute Lymphs (auto) Nucleated RBC % Differential Comment Diff Path Review PT INR APTT Sodium Potassium Chloride Carbon Dioxide Anion Gap BUN Creatinine Estim Creat Clear Calc Est GFR (MDRD) Af Amer Est GFR (MDRD) Non-Af BUN/Creatinine Ratio Glucose Lactic Acid 2.3 H* Calcium Total Bilirubin AST ALT Alkaline Phosphatase Troponin I High Sens Total Protein Albumin Globulin Albumin/Globulin Ratio Urine Color Yellow Urine Clarity Cloudy Urine pH 5.0 Ur Specific [place] 1.015 Urine Protein 100 H Urine Glucose (UA) Normal Urine Ketones 5 H Urine Occult Blood 250 H Urine Nitrite Positive H Urine Bilirubin 3 H Urine Urobilinogen 1 H Ur Leukocyte Esterase 500 H Urine RBC 50-100 SEEN Urine WBC 25-50 SEEN Ur Squamous Epith Cells 5-10 SEEN Urine Bacteria 2+ Urine Mucus 0 SEEN POC Glucose Blood Type Attestation Sepsis Attestation: Sepsis re-evaluation was performed
--- NOTE | 2020-11-30 04:42 | PN_ITS ---
Progress Note Critical CARE note: Patient with hypotension and bradycardia. Also patient lethargic. Heart sounds S1-S2 present; irregularly irregular; bradycardia Lungs diminished Abdomen soft bowel sounds present nontender Extremities without edema Neurologic: Lethargic and incoherent. Assessment and plan septic shock secondary to pneumonia and pyonephritis. General surgery was consulted. General surgery placed subclavian line. Chest x-ray post line with bilateral opacities. Received normal saline bolus with dialysis. Started on Levophed. Change cef triaxone to Zosyn. Add vancomycin. Supratherapeutic INR with bleeding at subclavian access line Sand bag placed. Vitamin K and fresh frozen plasma ordered. Trend INR. Stop warfarin for now. DVT prophylaxis: Patient with supratherapeutic INR with no need for DVT prophylaxis. Critical time was 90 minutes. Critical care time involved time discussing case with family; review of charts; time at bedside assisting patients. Critical care time from 11/29/20 20:26 to 11/30/20 0400 Advance care planning: Discussed with family advanced directives as well as CODE STATUS. Explained various CODE STATUS: FULL CODE, DNR CCA, DNR CCA with no intubation, and DNR CC- and what each meant. Family elected to be a full code with CPR and intubation if warranted. Time spent on discussion 16 minutes. Procedures Hospitalists Procedures: [id number] Advncd Care Plan 30 Min
--- NOTE | 2020-11-30 05:19 | PCM.RX.CS ---
Consult Pharmacy has been consulted to manage selected antiobiotic: Vancomycin Type of Consult: New start Suspected Infection: Sepsis Prior Doses of Antibiotics Received/Current Regimen: Medications Vancomycin HCl 2,000 mg/ (Sodium Chloride) 540 mls @ 250 mls/hr IV X1 ONE Stop: 11/30/20 07:09 Labs: Sodium 126 mmol/L (136-145) L 11/29/20 13:45 Potassium 5.9 mmol/L (3.5-5.1) H 11/29/20 13:45 Chloride 84 mmol/L (98-107) L 11/29/20 13:45 Carbon Dioxide 32.0 mmol/L (21.0-32.0) 11/29/20 13:45 Anion Gap 10 (5-15) 11/29/20 13:45 BUN 63 mg/dL (7-18) H 11/29/20 13:45 Creatinine 7.70 mg/dL (0.70-1.30) H* 11/29/20 13:45 Est GFR (MDRD) Af Amer 9 mL/min (>60) L 11/29/20 13:45 Est GFR (MDRD) Non-Af 8 mL/min (>60) L 11/29/20 13:45 BUN/Creatinine Ratio 8.2 RATIO (10-20) L 11/29/20 13:45 Glucose 129 mg/dL (74-106) H 11/29/20 13:45 Weight used for dosin.9 kg Estimated Creatinine Clearance: 9.6 Goal Trough: 15-20 mcg/mL Pharmacy Plan for Drug Dosing: Initial dose of vancomycin 2000mg will be given. Follow-up doses will be scheduled according to patient's dialysis schedule. Pharmacy will verify timing of HD sessions with nursing. Pharmacy Service will continue to monitor and adjust dosing as required.
[2020-11-30 06:09] LABS: Absolute Lymphocyte Count 1.19 X10^3/uL (0.83-4.51); Absolute Neutrophil Count 17.9 X10^3/uL (2.0-7.7); Basophil# 0.05 X10^3/uL; Basophil% 0.2 % (0-1); Eosinophil# 0.07 X10^3/uL; Eosinophils% 0.3 % (0-5); Hematocrit 25.3 % (40-54); Hemoglobin 7.4 g/dL (13.0-16.5); Lymphocyte # 1.19 X10^3/ul (0.83-4.51); Lymphocyte % 5.4 % (19-41); Mean Corp Hgb Conc 29.2 g/dL (32-36); Mean Corpuscular Hgb 29.6 pg (27.0-32.0); Mean Corpuscular Volume 101.2 fL (80-94); Mean Platelet Vol. 9.2 fl (6.2-12.0); Monocyte# 2.66 X10^3/uL; NRBC Flagged by Analyzer 0.1 % (0-5); Neutrophil # 17.89 X10^3/uL (2.7-7.7); Neutrophil % 80.4 % (47-70); POSITIVE DIFFERENTIAL YES; Platelet Count 175 K/mm3 (150-450); RBC Distribution Width CV 15.9 % (11.6-14.6); RBC Distribution Width SD 59.2 fl (35.1-43.9); White Blood Count 22.2 K/mm3 (4.4-11.0)
[2020-11-30 06:11] LABS: Differential Indicated SCAN CRITERIA MET
[2020-11-30 06:23] LABS: Anion Gap 9 (5-15); BUN 37 mg/dL (7-18); BUN/Creat Ratio 7.3 RATIO (10-20); Chloride 89 mmol/L (98-107); Creatinine, Serum 5.07 mg/dL (0.70-1.30); EST Glomerular Filtration Rate 12 mL/min (>60); Est Glom Filt Rate - Afr Amer 15 mL/min (>60); Estimated Creatinine Clearance 14.62 ml/min; Glucose 136 mg/dL (74-106); Potassium 4.9 mmol/L (3.5-5.1); Sodium Level 130 mmol/L (136-145)
[2020-11-30 06:36] LABS: Anisocytosis 1+; Differential Comment SCANNED; Macrocytosis 1+; Polychromasia RARE
[2020-11-30 08:36] LABS: Bedside Glucose 154 mg/dL (70-110)
--- NOTE | 2020-11-30 08:51 | CON.PCM.CC_ITS ---
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 Wean pressors as tolerated 2. Hemodialysis per nephrology 3. Continue empiric antibiotics pending culture data 4. Wean oxygen as tolerated 5. Potentially give DDAVP if patient continues to lose after FFP 6. Potential transition to heparin drip from Coumadin IMPRESSIONS: 1. Septic shock secondary to pyelonephritis secondary to UTI Despite being end-stage renal disease, patient reportedly makes significant urine. Patient has had pyelonephritis and currently has hydronephrosis. Patient was started on ceftriaxone, but was appropriately broadened with overnight issues. Await cultures. Continue broad-spectrum antibiotics. Wean levo as tolerated to keep a MAP of 65. If patient has gram- negative, hemodynamics may get worse before they get better. 2. Coagulopathy secondary to Coumadin Patient with elevated INR on presentation. Patient has been given vitamin K and FFP, but continues to have oozing from central line site. Subclavian is noncompressible, so coagulopathy will need to be addressed. If patient continues to ooze after FFP, DDAVP could be considered given patient's end-stage renal disease. Defer to hospitalist, but patient may need to be transitioned to heparin drip given acute condition and possible need for interventions. 3. Chronic A. fib/chronic diastolic congestive heart failure/bradycardia Patient is on amiodarone and Coumadin at baseline. Coagulation as stated above. Patient should can be continued on amiodarone, but would hold Lasix therapy. Patient can have volume removed with dialysis if necessary. Patient does have bilateral infiltrates. Unclear if this represents congestive heart failure versus hematologic spread of pyelonephritis. Patient is on 5 L nasal cannula at this time. Unclear etiology of bradycardia. Cardiology has been notified by hospitalist. Patient has received hemodialysis to address hyperkalemia. 4. BPH/end-stage renal disease/hyponatremia/type 2 diabetes mellitus/debility Complicates care, management, recovery and prognosis. We will need to watch blood sugars closely as he will have elevated endogenous steroids. Nephrology is following and patient should receive hemodialysis today. TIME: 37 minutes critical care time spent addressing patient's septic shock, hypoxia, coagulopathy, review of all data and collaboration with care team (7:45 AM to 8:45 AM) HPI Consult Data Date of Consult: 11/30/20 HPI Narrative HPI Narrative: SHERRIE GUERRIER is a 60 M, with past medical history listed below, who presents to [facility] on 11/29/2020 secondary to back pain. Patient had localized this to the lower flanks and has had it many times in the past. Patient reportedly was supposed to go to dialysis on the day prior to presentation, but was unable to get out of bed secondary to the pain. Patient had rescheduled dialysis for the day of presentation, but was unable to get up even with the assistance of a gait belt. Patient had been taking morphine at [facility] with little relief and had noted darkening of his urine. Patient denied any fevers or chills, but did have an episode of nausea and vomiting on the day of presentation. Patient did not reported any change in bowel movements or significant abdominal pain. On presentation to the ER, patient was afebrile with a blood pressure of 103/45 and 98% on 4 L. Laboratory work-up showed a white blood cell count of 14.8, hemoglobin of 7.4 and platelets of 136. Lactate was elevated at 2.3 and the UA was suggestive of a urinary tract infection. Patient sodium was low at 126, creatinine was 7.7 and LFTs were relatively unremarkable. A CT of the abdomen showed splenomegaly with nonobstructive bilateral nephrolithiasis and multiple gallstones. Patient was initially admitted to the PCU. However, rapid response was called when blood pressure was in the 70s and heart rates have dropped to the 30s to 40s. Patient was found to have his potassium of 5.9. Patient did receive a total of 3 A of atropine, calcium gluconate and bicarbonate. Cardiology was consulted emergently, but did not feel a pacer was indicated. The patient was placed on pressor therapy and admitted to the intensive care unit. Since being in the intensive care unit, patient has had a left subclavian placed by surgery. Patient has had oozing from the site since placement and was found to have an INR of 3.6. Patient continues to report back pain, but is also reporting problems with clearing his secretions. Patient is being maintained on 5 L nasal cannula. Patient is currently on 10 of Levophed to maintain his blood pressure. Patient is a relatively poor historian and is very fixated on his back pain. Patient unwilling to provide review of systems at this time. 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 Morbid obesity with BMI of 50.0-59.9, adult Nonrheumatic tricuspid valve regurgitation LASHAWN (obstructive sleep apnea) Paroxysmal SVT (supraventricular tachycardia) Problem with dialysis access Pulmonary hypertension, moderate to severe Supratherapeutic INR Home Medications atorvastatin 20 mg PO QHS 04/16/19 [History Last Taken 11/27/20] insulin lispro 5 unit SC LUNCH insuln.pen 04/28/19 [Rx Last Taken 11/27/20] insulin lispro 7 unit SC BREAKFAST insuln.pen 04/28/19 [Rx Last Taken 11/29/20] docusate sodium 100 mg PO BID PRN PRN 11/21/19 [History Last Taken 11/29/20] melatonin 3 mg PO QHS PRN 11/21/19 [History Last Taken 07/05/20] insulin lispro 6 unit SC DINNER 12/29/19 [History Last Taken 11/27/20] insulin lispro See Protocol SC ACHS 12/29/19 [History Last Taken 11/27/20] tamsulosin 0.4 mg PO QHS 12/29/19 [History Last Taken 11/27/20] warfarin 3 mg PO SUMOTUWETHFR 06/10/20 [History Last Taken 11/27/20] insulin glargine 100 unit/mL (3 mL) subcutaneous pen 15 unit SC BID ml 08/23/20 [History Last Taken 11/29/20] amiodarone 200 mg PO DAILY 11/01/20 [History Last Taken 11/29/20] furosemide 80 mg PO BID 11/01/20 [History Last Taken 11/29/20] warfarin 6 mg PO SA 11/01/20 [History Last Taken 11/23/20] magnesium hydroxide [Milk of Magnesia] 30 - 60 ml PO DAILY PRN 11/29/20 [History Last Taken 11/29/20] Allergy/AdvReac Type Severity Reaction Status Date / Time albuterol AdvReac increased Verified 11/29/20 11:30 heart rate amoxicillin trihydrate AdvReac Diarrhea Verified 11/29/20 11:30 [From Augmentin] indomethacin [From Indocin] AdvReac Nausea Verified 11/29/20 11:30 potassium clavulanate AdvReac Diarrhea Verified 11/29/20 11:30 [From Augmentin] Family History Mother , of complications post valve surgery Hypertension Diabetes CVA (cerebral vascular accident) X2 Valvular heart disease Father CVA (cerebral vascular accident) Hypertension Hyperlipidemia Surgical History History of radiofrequency ablation procedure for cardiac arrhythmia History of right and left heart catheterization (02/18/98) History of ventricular septal defect repair history transposition AV Fistula left forearm (~04/02/20) Social History Smoking Status: Former smoker how long ago did patient quit smokin years ago alcohol intake: current alcohol intake frequency: holidays/special occasions only substance use type: does not use caffeine: No ROS ROS Narrative See HPI Physical Exam Const alert General Appearance: cooperative, well developed, in distress Positive for moderate, uncooperative, disheveled and appears older than stated age Nutritional Appearance: morbidly obese HEENT normocephalic, head/scalp atraumatic and moist oral mucous membranes HEENT Narrative: Scleral injection noted Eyes PERRL and EOMs intact bilaterally Neck full ROM and no lymphadenopathy Chest Chest Narrative: Oozing noted from left subclavian site Resp Resp Narrative: Mild respiratory distress Effort and Inspection: respiratory distress Auscultation: rhonchi throughout and diminished lung sounds; Negative for rales or wheezes Percussion: Negative for dullness Cardio S1 normal heart sound, S2 normal heart sound, no rub and no gallops Rate: regular rate Rhythm: abnormal rhythm irregularly irregular Heart Sounds: murmur systolic II/ harsh mid left sternal border GI normal to inspection, nondistended, normoactive bowel sounds no CVA tenderness Extremity no clubbing, cyanosis or edema Skin no rashes or lesions noted Neuro oriented x3, CN's II-XII intact bilaterally, moves all extremities and no focal motor deficits Psych Appearance: disheveled Attitude: agitated Activity / Motor Behavior: hyperactive Mood & Affect: anxious Lab / Micro Data Result Diagrams: 11/30/20 05:50 11/30/20 05:50 Labs: Laboratory Results - last 24 hr 11/29/20 11:33: Lactic Acid 2.3 H* 11/29/20 13:20: Urine Color Yellow, Urine Clarity Cloudy, Urine pH 5.0, Ur Specific [place] 1.015, Urine Protein 100 H, Urine Glucose (UA) Normal, Urine Ketones 5 H, Urine Occult Blood 250 H, Urine Nitrite Positive H, Urine Bilirubin 3 H, Urine Urobilinogen 1 H, Ur Leukocyte Esterase 500 H, Urine RBC 50-100 SEEN, Urine WBC 25-50 SEEN, Ur Squamous Epith Cells 5-10 SEEN, Urine Bacteria 2+, Urine Mucus 0 SEEN 11/29/20 13:45: WBC 14.8 H, RBC 2.80 L, Hgb 8.4 L, Hct 27.1 L, MCV 96.8 H, MCH 30.0, MCHC 31.0 L, RDW Std Deviation 56.8 H, RDW Coeff of Janiya 15.9 H, Plt Count 136 L, MPV 9.2, Immature Gran % (Auto) 1.400 H, Neut % (Auto) 75.1 H, Lymph % (Auto) 8.6 L, Ashley % (Auto) 14.0 H, Eos % (Auto) 0.7, Baso % (Auto) 0.2, Absolute Neuts (auto) 11.1 H, Absolute Lymphs (auto) 1.28, Nucleated RBC % 0, Diff Path Review August11/29/20 13:45: Sodium 126 L, Potassium 5.9 H, Chloride 84 L, Carbon Dioxide 32.0, Anion Gap 10, BUN 63 H, Creatinine 7.70 H*, Estim Creat Clear Calc 9.62, Est GFR (MDRD) Af Amer 9 L, Est GFR (MDRD) Non-Af 8 L, BUN/Creatinine Ratio 8.2 L, Glucose 129 H, Calcium 8.4 L, Total Bilirubin 0.70, AST 30, ALT 29, Alkaline Phosphatase 158 H, Total Protein 6.5, Albumin 2.7 L, Globulin 3.8, Albumin/Globulin Ratio 0.7 L 11/29/20 17:52: Troponin I High Sens 18 11/29/20 17:52: PT 34.9 H, INR 3.6 11/29/20 21:15: Troponin I High Sens 18 11/29/20 21:15: Lactic Acid 3.8 H* 11/29/20 21:34: POC Glucose 141 H 11/30/20 00:25: Troponin I High Sens 22 11/30/20 00:30: POC Glucose 103 11/30/20 01:50: WBC 16.9 H, RBC 2.71 L, Hgb 8.0 L, Hct 27.3 L, MCV 100.7 H, MCH 29.5, MCHC 29.3 L D, RDW Std Deviation 58.8 H, RDW Coeff of Janiya 15.9 H, Plt Count 178, MPV 9.3, Immature Gran % (Auto) 2.000 H, Neut % (Auto) 73.9 H, Lymph % (Auto) 7.8 L, Ashley % (Auto) 15.6 H, Eos % (Auto) 0.5, Baso % (Auto) 0.2, Ab solute Neuts (auto) 12.5 H, Absolute Lymphs (auto) 1.32, Nucleated RBC % 0.1, Differential Comment SCANNED, Diff Path Review August11/30/20 01:50: Blood Type A POSITIVE 11/30/20 01:50: PT 34.8 H, INR 3.6, APTT 80.0 H 11/30/20 05:50: WBC 22.2 H, RBC 2.50 L, Hgb 7.4 L, Hct 25.3 L, MCV 101.2 H, MCH 29.6, MCHC 29.2 L, RDW Std Deviation 59.2 H, RDW Coeff of Janiya 15.9 H, Plt Count 175, MPV 9.2, Immature Gran % (Auto) 1.700 H, Neut % (Auto) 80.4 H, Lymph % (Auto) 5.4 L, Ashley % (Auto) 12.0 H, Eos % (Auto) 0.3, Baso % (Auto) 0.2, Absolute Neuts (auto) 17.9 H, Absolute Lymphs (auto) 1.19, Nucleated RBC % 0.1, Differential Comment SCANNED, Diff Path Review May foll, Polychromasia RARE, Anisocytosis 1+, Macrocytosis 1+ 11/30/20 05:50: Sodium 130 L, Potassium 4.9, Chloride 89 L, Carbon Dioxide 32.0, Anion Gap 9, BUN 37 H, Creatinine 5.07 H, Estim Creat Clear Calc 14.62, Est GFR (MDRD) Af Amer 15 L, Est GFR (MDRD) Non-Af 12 L, BUN/Creatinine Ratio 7.3 L, Glucose 136 H, Calcium 8.0 L 11/30/20 08:29: POC Glucose 154 H Radiology Impression Abdomen/Pelvis CT 11/29/20 13:45 IMPRESSION: Essentially stable examination. Splenomegaly with the splenic cysts. Nonobstructive bilateral nephrolithiasis. Multiple small layering gallstones. Electronically Signed: Fortunato Francisco MD at 14:43 EDT , Service support , Chest X-Ray 11/29/20 22:50 IMPRESSION: Left sided central venous catheter as above. No pneumothorax. Dense patchy airspace disease bilaterally Electronically Signed: Alan Albarado DO at 0:42 EDT Tel , Service support , Chest X-Ray 11/30/20 03:23 IMPRESSION: Left subclavian central catheter terminates over the mid upper SVC. Similar appearance of bilateral multifocal pneumonia. Electronically Signed: Bhavin Christianson MD at 6:02 EDT Tel , Service support , Charges/Coding Procedures Hospitalists Procedures: [id number] Critial Care 1st Hr
--- NOTE | 2020-11-30 10:17 | PCM.CONS.R ---
Assessment & Plan Assessment/Plan (1) ESRD (end stage renal disease) on dialysis: (2) Hyperkalemia: (3) Hyponatremia: (4) Septic shock: (5) UTI (urinary tract infection): (6) Bradycardia: PLAN: Patient is on TTS hemodialysis schedule. Patient had hemodialysis yesterday for hyperkalemia. Hemodialysis is arranged for today as per his regular schedule. Blood flow rate 400, dialysate flow rate 700, ultrafiltration 3 L Hyperkalemia corrected with dialysis. Continue to monitor potassium level. Renal diet Hyponatremia level corrected with dialysis. Continue to monitor sodium level. Hemodynamic support, UTI treatment as per the primary service. Thank you for the consult. Renal team will continue to follow HPI Consult Data Date of Consult: 11/30/20 HPI Narrative HPI Narrative: SHERRIE GUERRIER, is a 60 M with past medical history of end-stage renal disease on TTS hemodialysis schedule. Patient presented here with left-sided flank pain. Patient was found to have UTI and was admitted. Patient was transferred last night to ICU due to hypotension and bradycardia. Patient was given atropine. Renal team was consulted for end-stage renal disease care. Patient missed hemodialysis session due to his pain. Patient was dialyzed yesterday. Hemodialysis and is arranged for today. Patient seen during hemodialysis session today Patient still on Levophed 10 MCG per minute. Patient is obtunded. Awake Review of system: Patient is obtunded but denied nausea vomiting shortness of breath. Still have left-sided flank pain Rest of ROS is negative COUNT INCLUDES THE [facility] Medical History (Updated 11/30/20 @ 10:[address] 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 Morbid obesity with BMI of 50.0-59.9, adult Nonrheumatic tricuspid valve regurgitation LASHAWN (obstructive sleep apnea) Paroxysmal SVT (supraventricular tachycardia) Problem with dialysis access Pulmonary hypertension, moderate to severe Supratherapeutic INR Home Medications atorvastatin 20 mg PO QHS 04/16/19 [History Last Taken 11/27/20] insulin lispro 5 unit SC LUNCH insuln.pen 04/28/19 [Rx Last Taken 11/27/20] insulin lispro 7 unit SC BREAKFAST insuln.pen 04/28/19 [Rx Last Taken 11/29/20] docusate sodium 100 mg PO BID PRN PRN 11/21/19 [History Last Taken 11/29/20] melatonin 3 mg PO QHS PRN 11/21/19 [History Last Taken 07/05/20] insulin lispro 6 unit SC DINNER 12/29/19 [History Last Taken 11/27/20] insulin lispro See Protocol SC ACHS 12/29/19 [History Last Taken 11/27/20] tamsulosin 0.4 mg PO QHS 12/29/19 [History Last Taken 11/27/20] warfarin 3 mg PO SUMOTUWETHFR 06/10/20 [History Last Taken 11/27/20] insulin glargine 100 unit/mL (3 mL) subcutaneous pen 15 unit SC BID ml 08/23/20 [History Last Taken 11/29/20] amiodarone 200 mg PO DAILY 11/01/20 [History Last Taken 11/29/20] furosemide 80 mg PO BID 11/01/20 [History Last Taken 11/29/20] warfarin 6 mg PO SA 11/01/20 [History Last Taken 11/23/20] magnesium hydroxide [Milk of Magnesia] 30 - 60 ml PO DAILY PRN 11/29/20 [History Last Taken 11/29/20] Allergy/AdvReac Type Severity Reaction Status Date / Time albuterol AdvReac increased Verified 11/29/20 11:30 heart rate amoxicillin trihydrate AdvReac Diarrhea Verified 11/29/20 11:30 [From Augmentin] indomethacin [From Indocin] AdvReac Nausea Verified 11/29/20 11:30 potassium clavulanate AdvReac Diarrhea Verified 11/29/20 11:30 [From Augmentin] Family History Mother , of complications post valve surgery Hypertension Diabetes CVA (cerebral vascular accident) X2 Valvular heart disease Father CVA (cerebral vascular accident) Hypertension Hyperlipidemia Surgical History History of radiofrequency ablation procedure for cardiac arrhythmia History of right and left heart catheterization (02/18/98) History of ventricular septal defect repair history transposition AV Fistula left forearm (~04/02/20) Social History Smoking Status: Former smoker how long ago did patient quit smokin years ago alcohol intake: current alcohol intake frequency: holidays/special occasions only substance use type: does not use caffeine: No Physical Exam Narrative Patient is awake not oriented. Head atraumatic normocephalic. Neck no JVD. Mouth moist mucosa Heart S1-S2 RRR. Chest clear to auscultation Abdomen: Soft positive bowel sounds no distention. Extremity: No edema Skin no skin rash Lab / Micro Data Result Diagrams: 11/30/20 05:50 11/30/20 05:50 Labs: Laboratory Results - last 24 hr 11/29/20 11:33: Lactic Acid 2.3 H* 11/29/20 13:20: Urine Color Yellow, Urine Clarity Cloudy, Urine pH 5.0, Ur Specific [place] 1.015, Urine Protein 100 H, Urine Glucose (UA) Normal, Urine Ketones 5 H, Urine Occult Blood 250 H, Urine Nitrite Positive H, Urine Bilirubin 3 H, Urine Urobilinogen 1 H, Ur Leukocyte Esterase 500 H, Urine RBC 50-100 SEEN, Urine WBC 25-50 SEEN, Ur Squamous Epith Cells 5-10 SEEN, Urine Bacteria 2+, Urine Mucus 0 SEEN 11/29/20 13:45: WBC 14.8 H, RBC 2.80 L, Hgb 8.4 L, Hct 27.1 L, MCV 96.8 H, MCH 30.0, MCHC 31.0 L, RDW Std Deviation 56.8 H, RDW Coeff of Janiya 15.9 H, Plt Count 136 L, MPV 9.2, Immature Gran % (Auto) 1.400 H, Neut % (Auto) 75.1 H, Lymph % (Auto) 8.6 L, [place] % (Auto) 14.0 H, Eos % (Auto) 0.7, Baso % (Auto) 0.2, Absolute Neuts (auto) 11.1 H, Absolute Lymphs (auto) 1.28, Nucleated RBC % 0, Diff Path Review August11/29/20 13:45: Sodium 126 L, Potassium 5.9 H, Chloride 84 L, Carbon Dioxide 32.0, Anion Gap 10, BUN 63 H, Creatinine 7.70 H*, Estim Creat Clear Calc 9.62, Est GFR (MDRD) Af Amer 9 L, Est GFR (MDRD) Non-Af 8 L, BUN/Creatinine Ratio 8.2 L, Glucose 129 H, Calcium 8.4 L, Total Bilirubin 0.70, AST 30, ALT 29, Alkaline Phosphatase 158 H, Total Protein 6.5, Albumin 2.7 L, Globulin 3.8, Albumin/Globulin Ratio 0.7 L 11/29/20 17:52: Troponin I High Sens 18 11/29/20 17:52: PT 34.9 H, INR 3.6 11/29/20 21:15: Troponin I High Sens 18 11/29/20 21:15: Lactic Acid 3.8 H* 11/29/20 21:34: POC Glucose 141 H 11/30/20 00:25: Troponin I High Sens 22 11/30/20 00:30: POC Glucose 103 11/30/20 01:50: WBC 16.9 H, RBC 2.71 L, Hgb 8.0 L, Hct 27.3 L, MCV 100.7 H, MCH 29.5, MCHC 29.3 L D, RDW Std Deviation 58.8 H, RDW Coeff of Janiya 15.9 H, Plt Count 178, MPV 9.3, Immature Gran % (Auto) 2.000 H, Neut % (Auto) 73.9 H, Lymph % (Auto) 7.8 L, [place] % (Auto) 15.6 H, Eos % (Auto) 0.5, Baso % (Auto) 0.2, Absolute Neuts (auto) 12.5 H, Absolute Lymphs (auto) 1.32, Nucleated RBC % 0.1, Differential Comment SCANNED, Diff Path Review August11/30/20 01:50: Blood Type A POSITIVE 11/30/20 01:50: PT 34.8 H, INR 3.6, APTT 80.0 H 11/30/20 05:50: WBC 22.2 H, RBC 2.50 L, Hgb 7.4 L, Hct 25.3 L, MCV 101.2 H, MCH 29.6, MCHC 29.2 L, RDW Std Deviation 59.2 H, RDW Coeff of Janiya 15.9 H, Plt Count 175, MPV 9.2, Immature Gran % (Auto) 1.700 H, Neut % (Auto) 80.4 H, Lymph % (Auto) 5.4 L, [place] % (Auto) 12.0 H, Eos % (Auto) 0.3, Baso % (Auto) 0.2, Absolute Neuts (auto) 17.9 H, Absolute Lymphs (auto) 1.19, Nucleated RBC % 0.1, Differential Comment SCANNED, Diff Path Review May foll, Polychromasia RARE, Anisocytosis 1+, Macrocytosis 1+ 11/30/20 05:50: Sodium 130 L, Potassium 4.9, Chloride 89 L, Carbon Dioxide 32.0, Anion Gap 9, BUN 37 H, Creatinine 5.07 H, Estim Creat Clear Calc 14.62, Est GFR (MDRD) Af Amer 15 L, Est GFR (MDRD) Non-Af 12 L, BUN/Creatinine Ratio 7.3 L, Glucose 136 H, Calcium 8.0 L 11/30/20 08:29: POC Glucose 154 H Radiology Impression Abdomen/Pelvis CT 11/29/20 13:45 IMPRESSION: Essentially stable examination. Splenomegaly with the splenic cysts. Nonobstructive bilateral nephrolithiasis. Multiple small layering gallstones. Electronically Signed: Fortunato Francisco MD at 14:43 EDT , Service support , Chest X-Ray 11/29/20 22:50 IMPRESSION: Left sided central venous catheter as above. No pneumothorax. Dense patchy airspace disease bilaterally Electronically Signed: Alan Albarado DO at 0:42 EDT Tel , Service support , Chest X-Ray 11/30/20 03:23 IMPRESSION: Left subclavian central catheter terminates over the mid upper SVC. Similar appearance of bilateral multifocal pneumonia. Electronically Signed: Bhavin Christianson MD at 6:02 EDT Tel , Service support ,
--- NOTE | 2020-11-30 12:30 | DIALYSIS ---
Hemodialysis tx completed x 3.5 hours. Pt tolerated tx fair, fluid removed 3,000ml using crit-line monitor. Levophed titrated to 15mcg during tx to maintain BP. Verbal report to ROBERTO Cano post tx
--- NOTE | 2020-11-30 13:59 | CASEMGMT ---
RN CM Face to Face with patient for initial transition planning/care coordination assessment. RN CM introduced self and role at [facility]. Patient lying in bed, slightly confused requested CM call . RN CM called Zina to complete assessment. willing to participate in assessment and is able to answer all questions appropriately. Care providers, pharmacy, and demographics verified. wishes for patient to discharge home with C if he is able to ambulate, it not would like patient to go to [facility] if needed. states she would be able to provided patient with transportation to HD if goes to [facility]. states she has no further needs or concerns at this time. SW updated regarding possible placement. CM to follow for discharge planning needs that may arise. PCP:Inge Specialists: Anurag hospital scientist; Mickey pewter caster Preferred Pharmacy: [facility] Insurance: [facility] Prescription Benefit: yes Living Will/HPOA: none LNOK:n Living Arrangements: patient lives with in a 2 story home with bed and bath on first floor. Patient is independent for toileting and dressing, assists with bathing. Transportation: DME/HHC: Patient has shower chair, walker, wheelchair, cpap, nebulizer, and home oxygen 4 lpm through [employer], [employer] concentrator as well. Shrutiten has previously been to [place] and [facility]. Patient has previously had [facility]. Patient has HD TTS at 930am at [facility]. Disposition Plan: TBD, HHC vs SNF pending progress with therapy. Lani MUNIZ, RN, CM
--- NOTE | 2020-11-30 14:15 | EKG12_ITS ---
Test Reason : AFIB Blood Pressure : / mmHG Vent. Rate : 103 BPM Atrial Rate : 129 BPM P-R Int : 000 ms QRS Dur : 144 ms QT Int : 404 ms P-R-T Axes : 000 123 082 degrees QTc Int : 529 ms Atrial fibrillation Right bundle branch block Abnormal ECG When compared with ECG of 29-NOV-2020 20:04, MANUAL COMPARISON REQUIRED, DATA IS UNCONFIRMED Confirmed by SCOTT HAMLIN, PHILLIP ([id number]), editor book JAVIER GREEN ([id number]) on 12/03/2020 8:09:28 AM Referred By: DANY Confirmed By:PHILLIP CHAVEZ MD
--- NOTE | 2020-11-30 14:45 | PCM.PN.HOSP ---
Subjective Subjective To the ICU overnight secondary to hypotension. Patient is currently getting set up for dialysis. Remains on pressors with Levophed at 10. FFP pending. Objective Data Objective Data Vital Signs: Vital Signs Temp Pulse Resp BP Pulse Ox 99.1 F 77 16 91/44 L 98 11/30/20 09:00 11/30/20 12:07 11/30/20 12:07 11/30/20 12:07 11/30/20 12:07 Oxygen Flow Rate (L/min) 5 Oxygen Delivery Method Nasal Cannula Weight: 142.9 kg Body Mass Index (BMI) 47.9 Intake & Output: Intake and Output for Last 24 Hours 11/28/20 11/29/20 11/30/20 23:59 23:59 23:59 Intake Total 66.45 / 68.80 1735.55 / 1735.55 Output Total 2500 / 2500 Balance 66.45 / 68.80 -764.45 / -764.45 Lab / Micro Data Result Diagrams: 11/30/20 05:50 11/30/20 05:50 Labs: Laboratory Results - last 24 hr 11/29/20 11:33: Lactic Acid 2.3 H* 11/29/20 13:45: Sodium 126 L, Potassium 5.9 H, Chloride 84 L, Carbon Dioxide 32.0, Anion Gap 10, BUN 63 H, Creatinine 7.70 H*, Estim Creat Clear Calc 9.62, Est GFR (MDRD) Af Amer 9 L, Est GFR (MDRD) Non-Af 8 L, BUN/Creatinine Ratio 8.2 L, Glucose 129 H, Calcium 8.4 L, Total Bilirubin 0.70, AST 30, ALT 29, Alkaline Phosphatase 158 H, Total Protein 6.5, Albumin 2.7 L, Globulin 3.8, Albumin/Globulin Ratio 0.7 L 11/29/20 17:52: Troponin I High Sens 18 11/29/20 17:52: PT 34.9 H, INR 3.6 11/29/20 21:15: Troponin I High Sens 18 11/29/20 21:15: Lactic Acid 3.8 H* 11/29/20 21:34: POC Glucose 141 H 11/30/20 00:25: Troponin I High Sens 22 11/30/20 00:30: POC Glucose 103 11/30/20 01:50: WBC 16.9 H, RBC 2.71 L, Hgb 8.0 L, Hct 27.3 L, MCV 100.7 H, MCH 29.5, MCHC 29.3 L D, RDW Std Deviation 58.8 H, RDW Coeff of Janiya 15.9 H, Plt Count 178, MPV 9.3, Immature Gran % (Auto) 2.000 H, Neut % (Auto) 73.9 H, Lymph % (Auto) 7.8 L, [place] % (Auto) 15.6 H, Eos % (Auto) 0.5, Baso % (Auto) 0.2, Absolute Neuts (auto) 12.5 H, Absolute Lymphs (auto) 1.32, Nucleated RBC % 0.1, Differential Comment SCANNED, Diff Path Review August [facility] 11/30/20 01:50: Blood Type A POSITIVE 11/30/20 01:50: PT 34.8 H, INR 3.6, APTT 80.0 H 11/30/20 05:50: WBC 22.2 H, RBC 2.50 L, Hgb 7.4 L, Hct 25.3 L, MCV 101.2 H, MCH 29.6, MCHC 29.2 L, RDW Std Deviation 59.2 H, RDW Coeff of Janiya 15.9 H, Plt Count 175, MPV 9.2, Immature Gran % (Auto) 1.700 H, Neut % (Auto) 80.4 H, Lymph % (Auto) 5.4 L, [place] % (Auto) 12.0 H, Eos % (Auto) 0.3, Baso % (Auto) 0.2, Absolute Neuts (auto) 17.9 H, Absolute Lymphs (auto) 1.19, Nucleated RBC % 0.1, Differential Comment SCANNED, Diff Path Review August, Polychromasia RARE, Anisocytosis 1+, Macrocytosis 1+ 11/30/20 05:50: Sodium 130 L, Potassium 4.9, Chloride 89 L, Carbon Dioxide 32.0, Anion Gap 9, BUN 37 H, Creatinine 5.07 H, Estim Creat Clear Calc 14.62, Est GFR (MDRD) Af Amer 15 L, Est GFR (MDRD) Non-Af 12 L, BUN/Creatinine Ratio 7.3 L, Glucose 136 H, Calcium 8.0 L 11/30/20 08:29: POC Glucose 154 H Micro: Microbiology 11/30/20 00:25 Blood Culture (Wb) - Line Draw Blood Culture - Preliminary 11/29/20 21:20 Blood Culture (Wb) - Anticubital Left Blood Culture - Preliminary Radiography Diagnostic Testing: Radiology Impression Chest X-Ray 11/29/20 22:50 IMPRESSION: Left sided central venous catheter as above. No pneumothorax. Dense patchy airspace disease bilaterally Electronically Signed: Alan Albarado DO at 0:42 EDT Tel , Service support , Chest X-Ray 11/30/20 03:23 IMPRESSION: Left subclavian central catheter terminates over the mid upper SVC. Similar appearance of bilateral multifocal pneumonia. Electronically Signed: Bhavin Christianson MD at 6:02 EDT Tel , Service support , Physical Exam Const alert Constitutional Narrative: Mildly confused morbidly obese white male who appears older than stated age, sitting up in bed, dialysis nurse at bedside HEENT HEENT Narrative: Mallampati 3, no thrush Head and Scalp: normocephalic Mouth: dry mucous membranes Resp normal respiratory effort, no retractions, no use of accessory muscles and clear to auscultation bilaterally Resp Narrative: Diffusely diminished Cardio regular rate, regular rhythm, S1 normal heart sound, S2 normal heart sound, no murmurs, no rub, no gallops, no clicks and no JVD GI normal to inspection, nondistended, normoactive bowel sounds, soft to palpation, non-tender and non-distended Extremity Extremity Narrative: Right upper extremity fistula with thrill and bruit, bilateral lower extremity pitting edema, no cyanosis or clubbing Peripheral Pulses: Yes pulses 2+ throughout Skin skin turgor normal, no jaundice, no petechiae and no mottling Neuro CN's II-XII intact bilaterally Sensorium / Orientation: awake and alert Assessment & Plan Assessment/Plan (1) Septic shock: (2) Acute UTI: (3) Pyelonephritis: PLAN: Septic shock secondary to pyelonephritis/UTI -Patient meets significant amount of urine despite end-stage renal disease -Remains on pressors with Levophed at 10 -Continue broad spectrum antibiotics--> Vanco and Zosyn -Map goal 65 -Pressors as able -Repeat hemoglobin given supratherapeutic INR and oozing from subclavian line -Transfuse for hemoglobin less than 7 -All cultures are pending Coagulopathy secondary to Coumadin use -INR was 3.6 on presentation -Goal INR is 2-3 -Patient has been given vitamin K and FFP secondary to oozing from his central venous catheter site -Repeat hemoglobin is pending -Patient still has continued slight oozing after FFP dosing and therefore will give DDAVP at this time given renal failure PAF -Patient had been in sinus rhythm but reverted back to atrial fibrillation -Continue amiodarone -Coumadin is on hold given supratherapeutic INR -We will restart anticoagulation once able Metabolic encephalopathy -Suspect related to acute infection -Continue to monitor clinically End-stage renal disease on HD -Patient makes considerable amount of urine despite renal failure -Dialysis per nephrology -Nephrology is consulted Chronic hyponatremia -Managed with volume removal per dialysis -Monitor Lactic acidosis -Continue pressors with goal map of 65 DM-2 -Continue carb controlled diet -Continue lispro with meals -Continue Lantus as ordered -SSI -Accu-Cheks before meals and at bedtime Debility -Patient to be evaluated by PT/OT Super morbid obesity -BMI is 47.9 -Complicates treatment, prognosis, and outcomes -Recommend weight loss -Suspect LASHAWN at baseline -Would initiate BiPAP if patient has any respiratory compromise DVT prophylaxis -Patient supratherapeutic on Coumadin -If INR drops below 2 would recommend initiation of subcu heparin every 8 CODE STATUS -Full code Charges/Coding Visit Charges Inpatient E&M: 95493 Subs Hosp L2
[2020-11-30] MEDS: 0.9% Saline Lock 10 ML Syringe IV ×2 (14:54→16:27)
[2020-11-30 15:06] LABS: Bedside Glucose 147 mg/dL (70-110)
[2020-11-30 15:11] LABS: Hematocrit 22.2 % (40-54); Hemoglobin 6.5 g/dL (13.0-16.5); Mean Corp Hgb Conc 29.3 g/dL (32-36); Mean Corpuscular Hgb 29.8 pg (27.0-32.0); Mean Corpuscular Volume 101.8 fL (80-94); Platelet Count 154 K/mm3 (150-450); RBC Distribution Width SD 59.9 fl (35.1-43.9); Red Blood Count 2.18 M/mm3 (4.6-6.2); White Blood Count 24.4 K/mm3 (4.4-11.0)
[2020-11-30 15:24] LABS: International Normalized Ratio 1.6; Prothrombin Time (Protime)PT. 18.4 SECONDS (11.7-14.9)
[2020-11-30] MEDS: Desmopressin Acetate 40 MCG/10 ML Vial IV (16:26)
[2020-11-30] MEDS: Vancomycin IV 1,000 MG/200 ML BAG 200 MG IV (16:26)
[2020-11-30] MEDS: Famotidine 20 MG Tablet PO (16:34)
[2020-11-30 16:41] LABS: Bedside Glucose 135 mg/dL (70-110)
[2020-11-30] MEDS: Insulin Lispro 100 UNIT/ML INSULN.PEN 6 UNIT SC (16:47)
--- NOTE | 2020-11-30 17:41 | NURSING ---
noted patient went into afib hr 120-100 md notified no distress noted has hx afib also notified of yeast in groin
--- NOTE | 2020-11-30 18:05 | CASEMGMT ---
Addendum entered by Argentina Bone 11/30/20 18:16: SW attempted to call [employer] ([facility] No one answering phone and it went to voice mail system. 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 Plan: To be determined. Argentina EDMONDS Original Note: SHAWN Note REferral Source: ROBERTO BURGER Referral Reason: Possible SNF placement SW reviewed patient's chart for insurance and in network providers. Per Lani BURGER, patient's had reported interest in [facility]. Per MMO web site [facility] does not appear to be in network for patient. Unit SW can follow up on Wednesday. Plan:To be determined [place] EDMONDS
[2020-11-30] MEDS: Nystatin Powder 15gm Bottle 1 APPLIC TOPICAL (20:38)
[2020-11-30] MEDS: Insulin Lispro 100 UNIT/ML INSULN.PEN SC (20:39)
[2020-11-30] MEDS: Tamsulosin HCl 0.4 MG Capsule PO (20:39)
[2020-11-30] MEDS: Atorvastatin Calcium 20 MG Tablet PO (20:39)
[2020-11-30 20:50] LABS: Bedside Glucose 161 mg/dL (70-110)
[2020-12-01] VITALS (35 sets, daily range): BP systolic 100–146; BP diastolic 39–76; PULSE 65–90; RESP 15–26; TEMP 36.6–37.4; O2SAT 70–98
[2020-12-01 04:49] LABS: Absolute Lymphocyte Count 2.15 X10^3/uL (0.83-4.51); Absolute Neutrophil Count 15.7 X10^3/uL (2.0-7.7); Basophil# 0.08 X10^3/uL; Basophil% 0.4 % (0-1); Differential Indicated SCAN CRITERIA MET; Eosinophil# 0.18 X10^3/uL; Eosinophils% 0.8 % (0-5); Hematocrit 27.9 % (40-54); Hemoglobin 8.4 g/dL (13.0-16.5); Lymphocyte # 2.15 X10^3/ul (0.83-4.51); Lymphocyte % 9.4 % (19-41); Mean Corp Hgb Conc 30.1 g/dL (32-36); Mean Corpuscular Hgb 29.9 pg (27.0-32.0); Mean Corpuscular Volume 99.3 fL (80-94); Mean Platelet Vol. 8.8 fl (6.2-12.0); Monocyte% 17.1 % (0-10); NRBC Flagged by Analyzer 0.4 % (0-5); Neutrophil # 15.67 X10^3/uL (2.7-7.7); Neutrophil % 68.7 % (47-70); POSITIVE DIFFERENTIAL YES; Platelet Count 157 K/mm3 (150-450); RBC Distribution Width CV 16.5 % (11.6-14.6); RBC Distribution Width SD 59.6 fl (35.1-43.9); Red Blood Count 2.81 M/mm3 (4.6-6.2); White Blood Count 22.8 K/mm3 (4.4-11.0)
[2020-12-01 05:03] LABS: International Normalized Ratio 1.4; Prothrombin Time (Protime)PT. 16.6 SECONDS (11.7-14.9)
[2020-12-01 05:08] LABS: Anion Gap 7 (5-15); BUN 36 mg/dL (7-18); BUN/Creat Ratio 8.8 RATIO (10-20); Calcium,Total 7.9 mg/dL (8.5-10.1); Chloride 93 mmol/L (98-107); Creatinine, Serum 4.09 mg/dL (0.70-1.30); EST Glomerular Filtration Rate 16 mL/min (>60); Est Glom Filt Rate - Afr Amer 19 mL/min (>60); Estimated Creatinine Clearance 18.12 ml/min; Glucose 156 mg/dL (74-106); Potassium 4.6 mmol/L (3.5-5.1); Sodium Level 131 mmol/L (136-145)
[2020-12-01 05:39] LABS: Differential Comment SCANNED; Hypochromasia RARE
[2020-12-01] MEDS: Morphine 2 MG/ML Syringe IV ×2 (06:43→22:52)
[2020-12-01] MEDS: 0.9% Saline Lock 10 ML Syringe IV ×2 (06:43→22:51)
--- NOTE | 2020-12-01 07:26 | PCM.PN.INT ---
Assessment & Plan Assessment/Plan (1) Septic shock: (2) UTI (urinary tract infection): (3) Pyelonephritis: (4) ESRD (end stage renal disease): (5) Bradycardia: (6) Supratherapeutic INR: (7) Diabetes mellitus, type II: QUALIFIERS: Qualified Code(s): Z79.4 - intermediate (current) use of insulin PLAN: RECOMMENDATIONS: 1. Wean pressors as tolerated 2. Hemodialysis per nephrology 3. Continue empiric antibiotics until cultures finalized 4. Wean oxygen as tolerated 5. Increase activity as tolerated 6. Potential transition to heparin drip from Coumadin IMPRESSIONS: 1. Septic shock secondary to pyelonephritis secondary to E faecalis secondary to UTI Despite being end-stage renal disease, patient reportedly makes significant urine. Patient has had pyelonephritis and currently has hydronephrosis. Patient was started on ceftriaxone, but was appropriately broadened with overnight issues. Await cultures. Patient is growing E faecalis at this time, but will continue broad-spectrum antibiotics until cultures finalized. Wean levo as tolerated to keep a MAP of 65. Cannot exclude translocation through the bowel as a source given abdominal tenderness, but abdomen is not acute at this time. No nausea to suggest obstruction. 2. Coagulopathy secondary to Coumadin Resolved. Patient with elevated INR on presentation. Patient has been given vitamin K, DDAVP and FFP, but continues to have oozing from central line site. Defer to hospitalist, but patient may need to be transitioned to heparin drip given acute condition and possible need for interventions. 3. Chronic A. fib/chronic diastolic congestive heart failure/bradycardia Patient is on amiodarone and Coumadin at baseline. Coagulation as stated above. Patient should can be continued on amiodarone, but would hold Lasix therapy. Patient can have volume removed with dialysis if necessary. Patient does have bilateral infiltrates. Unclear if this represents congestive heart failure versus hematologic spread of pyelonephritis. Patient is on baseline 4 L nasal cannula at this time. Unclear etiology of bradycardia. Cardiology has been notified by hospitalist. Patient has received hemodialysis to address hyperkalemia. 4. BPH/end-stage renal disease/hyponatremia/type 2 diabetes mellitus/debility Complicates care, management, recovery and prognosis. We will need to watch blood sugars closely as he will have elevated endogenous steroids. Nephrology is following and patient should receive hemodialysis today. TIME: 32 minutes critical care time spent addressing patient's septic shock, hypoxia, coagulopathy, review of all data and collaboration with care team (5:45 AM to 6:45 AM) Subjective Subjective Patient did okay overnight. Patient did have 2 units of packed red blood cells, DDAVP and 3 units of FFP in the last 24 hours, but appears to have stopped oozing from central line site. Patient continues to report significant abdominal and back pain that is sharp in nature. No nausea or vomiting has been reported. Patient has been weaned back to baseline nasal cannula oxygen. Objective Data Objective Data Vital Signs: Vital Signs Temp Pulse Resp BP Pulse Ox 37.0 C 69 20 H 138/66 H 96 12/01/20 06:00 12/01/20 06:00 12/01/20 06:00 12/01/20 06:00 12/01/20 06:00 Oxygen Flow Rate (L/min) 4 Oxygen Delivery Method Nasal Cannula Weight: 142.7 kg Body Mass Index (BMI) 47.9 Intake & Output: Intake and Output for Last 24 Hours 11/29/20 11/30/20 12/01/20 23:59 23:59 23:59 Intake Total 66.45 / 68.80 3388.77 / 3388.77 761.98 / 761.98 Output Total 2545 / 2545 10 / 10 Balance 66.45 / 68.80 843.77 / 843.77 751.98 / 751.98 Lab / Micro Data Result Diagrams: 12/01/20 04:35 12/01/20 04:35 Labs: Laboratory Results - last 24 hr 11/30/20 02:21: Blood Type A POSITIVE 11/30/20 02:21: Blood Type Cancelled, A1 Antigen Typing Cancelled, Rho(D) Type Cancelled, Antibody Screen POSITIVE H, Antibody Identification ANTI-E, Crossmatch See Detail 11/30/20 08:29: POC Glucose 154 H 11/30/20 14:19: POC Glucose 147 H 11/30/20 14:58: PT 18.4 H, INR 1.6 11/30/20 14:58: WBC 24.4 H, RBC 2.18 L, Hgb 6.5 L, Hct 22.2 L, MCV 101.8 H, MCH 29.8, MCHC 29.3 L, RDW Std Deviation 59.9 H, RDW Coeff of Janiya 16.0 H, Plt Count 154, MPV 9.0 11/30/20 16:30: POC Glucose 135 H 11/30/20 20:38: POC Glucose 161 H 12/01/20 04:35: WBC 22.8 H, RBC 2.81 L, Hgb 8.4 L, Hct 27.9 L, MCV 99.3 H, MCH 29.9, MCHC 30.1 L, RDW Std Deviation 59.6 H, RDW Coeff of Janiya 16.5 H, Plt Count 157, MPV 8.8, Immature Gran % (Auto) 3.600 H, Neut % (Auto) 68.7, Lymph % (Auto) 9.4 L, [place] % (Auto) 17.1 H, Eos % (Auto) 0.8, Baso % (Auto) 0.4, Absolute Neuts (auto) 15.7 H, Absolute Lymphs (auto) 2.15, Nucleated RBC % 0.4, Differential Comment SCANNED, Hypochromasia RARE 12/01/20 04:35: Sodium 131 L, Potassium 4.6, Chloride 93 L, Carbon Dioxide 31.0, Anion Gap 7, BUN 36 H, Creatinine 4.09 H, Estim Creat Clear Calc 18.12, Est GFR (MDRD) Af Amer 19 L, Est GFR (MDRD) Non-Af 16 L, BUN/Creatinine Ratio 8.8 L, Glucose 156 H, Calcium 7.9 L 12/01/20 04:35: PT 16.6 H, INR 1.4 Micro: Microbiology 11/29/20 21:20 Blood Culture (Wb) - Anticubital Left - Preliminary Enterococcus faecalis 11/29/20 21:20 Blood Culture (Wb) - Anticubital Left Blood Culture - Preliminary 11/30/20 00:25 Blood Culture (Wb) - Line Draw Blood Culture - Preliminary Physical Exam Const alert General Appearance: cooperative, well developed, in distress Positive for moderate, uncooperative, disheveled and appears older than stated age Nutritional Appearance: morbidly obese HEENT normocephalic, head/scalp atraumatic and moist oral mucous membranes Eyes PERRL and EOMs intact bilaterally Neck full ROM and no lymphadenopathy Chest Chest Narrative: Oozing noted from left subclavian site Resp Resp Narrative: Mild respiratory distress Effort and Inspection: respiratory distress Auscultation: rhonchi throughout and diminished lung sounds; Negative for rales or wheezes Percussion: Negative for dullness Cardio S1 normal heart sound, S2 normal heart sound, no rub and no gallops Rate: regular rate Rhythm: abnormal rhythm irregularly irregular Heart Sounds: murmur systolic II/ harsh mid left sternal border GI Inspection: abdominal distention Palpation: firm, tender other (Generalized. No rebound.) and guarding; Negative for abdominal wall crepitus no CVA tenderness Extremity no clubbing, cyanosis or edema Skin no rashes or lesions noted Neuro oriented x3, CN's II-XII intact bilaterally, moves all extremities and no focal motor deficits Psych Appearance: disheveled Attitude: agitated Activity / Motor Behavior: hyperactive Mood & Affect: anxious Charges/Coding Procedures Hospitalists Procedures: 95209 Critial Care 1st Hr
[2020-12-01 08:21] LABS: Bedside Glucose 136 mg/dL (70-110)
[2020-12-01] MEDS: Nystatin Powder 15gm Bottle 1 APPLIC TOPICAL ×2 (08:27→22:52)
[2020-12-01] MEDS: Famotidine 20 MG Tablet PO (08:27)
[2020-12-01 11:31] LABS: Bedside Glucose 149 mg/dL (70-110)
--- NOTE | 2020-12-01 11:41 | PCM.PN.HOSP ---
Subjective Subjective Patient is currently sleeping. No issues overnight. Levophed remains on and at 15 at this time. He has been weaned to his baseline 4 L nasal cannula. Patient did have episode of atrial fibrillation yesterday which now has reverted back to normal sinus rhythm. Objective Data Objective Data Vital Signs: Vital Signs Temp Pulse Resp BP Pulse Ox 98.5 F 72 23 H 103/76 98 12/01/20 11:00 12/01/20 11:00 12/01/20 11:00 12/01/20 11:00 12/01/20 11:00 Oxygen Flow Rate (L/min) 3 Oxygen Delivery Method Nasal Cannula Weight: 142.7 kg Body Mass Index (BMI) 47.9 Intake & Output: Intake and Output for Last 24 Hours 11/29/20 11/30/20 12/01/20 23:59 23:59 23:59 Intake Total 66.45 / 68.80 3388.77 / 3388.77 919.82 / 919.82 Output Total 2545 / 2545 10 / 10 Balance 66.45 / 68.80 843.77 / 843.77 909.82 / 909.82 Lab / Micro Data Result Diagrams: 12/01/20 04:35 12/01/20 04:35 Labs: Laboratory Results - last 24 hr 11/30/20 02:21: Blood Type A POSITIVE 11/30/20 02:21: Blood Type Cancelled, A1 Antigen Typing Cancelled, Rho(D) Type Cancelled, Antibody Screen POSITIVE H, Antibody Identification ANTI-E, Crossmatch See Detail 11/30/20 14:19: POC Glucose 147 H 11/30/20 14:58: PT 18.4 H, INR 1.6 11/30/20 14:58: WBC 24.4 H, RBC 2.18 L, Hgb 6.5 L, Hct 22.2 L, MCV 101.8 H, MCH 29.8, MCHC 29.3 L, RDW Std Deviation 59.9 H, RDW Coeff of Janiya 16.0 H, Plt Count 154, MPV 9.0 11/30/20 16:30: POC Glucose 135 H 11/30/20 20:38: POC Glucose 161 H 12/01/20 04:35: WBC 22.8 H, RBC 2.81 L, Hgb 8.4 L, Hct 27.9 L, MCV 99.3 H, MCH 29.9, MCHC 30.1 L, RDW Std Deviation 59.6 H, RDW Coeff of Janiya 16.5 H, Plt Count 157, MPV 8.8, Immature Gran % (Auto) 3.600 H, Neut % (Auto) 68.7, Lymph % (Auto) 9.4 L, [place] % (Auto) 17.1 H, Eos % (Auto) 0.8, Baso % (Auto) 0.4, Absolute Neuts (auto) 15.7 H, Absolute Lymphs (auto) 2.15, Nucleated RBC % 0.4, Differential Comment SCANNED, Hypochromasia RARE 12/01/20 04:35: Sodium 131 L, Potassium 4.6, Chloride 93 L, Carbon Dioxide 31.0, Anion Gap 7, BUN 36 H, Creatinine 4.09 H, Estim Creat Clear Calc 18.12, Est GFR (MDRD) Af Amer 19 L, Est GFR (MDRD) Non-Af 16 L, BUN/Creatinine Ratio 8.8 L, Glucose 156 H, Calcium 7.9 L 12/01/20 04:35: PT 16.6 H, INR 1.4 12/01/20 07:58: POC Glucose 136 H 12/01/20 11:09: POC Glucose 149 H Micro: Microbiology 11/29/20 13:20 Urine, Clean Catch Urine Culture - Preliminary GPC Poss Enterococcus sp 11/29/20 21:20 Blood Culture (Wb) - Anticubital Left - Preliminary Enterococcus faecalis 11/29/20 21:20 Blood Culture (Wb) - Anticubital Left Blood Culture - Preliminary 11/30/20 00:25 Blood Culture (Wb) - Line Draw Blood Culture - Preliminary Physical Exam Const Constitutional Narrative: Upper middle-aged white male who appears older than stated age, lying in bed sleeping, appears comfortable, nontoxic, on baseline 4 L nasal cannula without any signs of respiratory distress HEENT head/scalp atraumatic and moist oral mucous membranes Head and Scalp: normocephalic Resp normal respiratory effort, no retractions, no use of accessory muscles and clear to auscultation bilaterally Resp Narrative: Diminished at bases bilaterally but clear Auscultation: Negative for crackles, rales, rhonchi or wheezes Cardio regular rate, regular rhythm, S1 normal heart sound, S2 normal heart sound, no murmurs, no rub, no gallops, no clicks and no JVD GI normal to inspection, nondistended, normoactive bowel sounds, soft to palpation, non-tender and non-distended Extremity normal to inspection and full ROM Extremity Narrative: No cyanosis or clubbing, 1+ bilateral lower extremity pitting edema General Extremity: edema Peripheral Pulses: Yes pulses 2+ throughout Skin skin turgor normal, no jaundice, no petechiae and no mottling Skin Narrative: Left upper extremity fistula with positive bruit and thrill Neuro Neuro Narrative: Patient is currently sleeping Assessment & Plan Assessment/Plan (1) Septic shock: (2) Acute UTI: (3) Pyelonephritis: PLAN: Septic shock secondary to Enterococcus pyelonephritis/UTI -Patient meets significant amount of urine despite end-stage renal disease -Remains on pressors with Levophed but now at 15 -Continue broad spectrum antibiotics--> Vanco and Zosyn -Await sensitivities to narrow antibiotic therapy -Map goal 65 -Wean pressors as able -Blood and urine cultures are positive for Enterococcus -Check surface echocardiogram -If valvular vegetation or persistent bacteremia is noted patient may need JOSEPH -Repeat blood cultures in a.m. for clearance given gram positive organism -Consult infectious disease Coagulopathy secondary to Coumadin use -INR was 3.6 on presentation and is now 1.4 -Resolved -Goal INR is 2-3 -Patient received 3 units of FFP, vitamin K, and DDAVP Acute on chronic anemia -2 units of packed red cells given last night secondary to oozing from a central line site -Oozing has since ceased -Hemoglobin appropriately corrected -Repeat CBC in a.m. PAF -Patient had been in sinus rhythm but reverted back to atrial fibrillation -Continue amiodarone -Coumadin is on hold given supratherapeutic INR -Start heparin drip given possible procedures required--> will transition to Coumadin once stable Metabolic encephalopathy -Suspect related to acute infection -Continue to monitor clinically -Improving some slowly End-stage renal disease on HD -Patient makes considerable amount of urine despite renal failure -Dialysis per nephrology -Nephrology is consulted Chronic hyponatremia -Managed with volume removal per dialysis -Monitor -Stable Lactic acidosis -Resolved DM-2 -Continue carb controlled diet -Continue lispro with meals -Continue Lantus as ordered -SSI -Accu-Cheks before meals and at bedtime -Blood sugars in goal range of 1 40-1 80 -Continue to monitor Debility -PT/OT Super morbid obesity -BMI is 47.9 -Complicates treatment, prognosis, and outcomes -Recommend weight loss -Suspect LASHAWN at baseline -Would initiate BiPAP if patient has any respiratory compromise DVT prophylaxis -Patient supratherapeutic on Coumadin -If INR drops below 2 would recommend initiation of subcu heparin every 8 CODE STATUS -Full code Charges/Coding Visit Charges Inpatient E&M: 94471 Subs Hosp L2
--- NOTE | 2020-12-01 11:53 | ECHOD_ITS ---
Reason For Study: Enterococcus bacteremia Procedure This was a 2D Doppler, Color Flow transthoracic echocardiogram. The study was technically difficult. Did not use Definity due to elevated PAP. Exam performed portable in ICU/CCU. Left Ventricle Normal LV size. Mild concentric left ventricular hypertrophy. Left ventricular systolic function is normal. The estimated ejection fraction is 55 %. Stage 2 diastolic dysfunction. No regional wall motion abnormalities noted. Right Ventricle Normal RV size. Normal systolic function. Atria Normal left atrium. The right atrium is severely enlarged. Mitral Valve There is moderate mitral annular calcification. Mild-Moderate (1-2+) eccentric mitral valve insufficiency. Tricuspid Valve Normal tricuspid valve. Moderately severe (3+) tricuspid valve insufficiency. Pulmonary artery systolic pressure is 72 mmHg. Severe pulmonary hypertension. Aortic Valve Trisinus/trileaflet aortic valve. 0.9 x 0.7 cm mobile echogenic structure noted on left coronary cusp consistent with a vegetation. Pulmonic Valve Normal pulmonic valve. Great Vessels Normal aortic root. The pulmonary artery is normal size. The inferior vena cava is dilated. Pericardium/Pleural No pericardial effusion. MMode/2D Measurements & Calculations LVIDd: 5.6 cm IVSd: 1.3 cm Ao root diam: 2.6 cm LVIDs: 3.8 cm LVPWd: 1.3 cm FS: 32.4 % LAV(MOD-bp): 43.1 ml LA A4 area: 15.5 cm2 LA dimension(2D): 5.2 cm LAV(MOD-bp) Indexed: 17.4 ml/m2 LAV(MOD-sp2): 56.9 ml LAV(MOD-sp4): 34.5 ml RA A4 area: 30.8 cm2 Time Measurements MV dec time: 0.22 sec Doppler Measurements & Calculations MV E max roderick: 149.5 cm/sec Lat Peak E' Roderick: 8.8 cm/sec Med Peak E' Roderick: 5.9 cm/sec MV A max roderick: 102.7 cm/sec E/E' lat: 17.0 E/E' med: 25.5 MV E/A: 1.5 MV V2 max: 148.8 cm/sec MV P1/2t max roderick: 148.8 cm/sec Ao V2 max: 237.4 cm/sec MV max P.9 mmHg MV P1/2t: 62.9 msec Ao max P.6 mmHg MV V2 mean: 85.3 cm/sec MV dec slope: 693.5 cm/sec2 Ao V2 mean: 166.4 cm/sec MV mean P.6 mmHg Ao mean P.3 mmHg MV V2 VTI: 34.0 cm MVA(P1/2t): 3.5 cm2 Ao V2 VTI: 42.8 cm LV V1 max: 137.3 cm/sec PA V2 max: 204.2 cm/sec TR max roderick: 409.2 cm/sec LV V1 max P.5 mmHg TR max P.0 mmHg LV V1 mean P.4 mmHg LV V1 mean: 99.5 cm/sec LV V1 VTI: 25.6 cm ECHO/Echo Complete Interpretation Summary Normal LV size. Mild concentric left ventricular hypertrophy. Left ventricular systolic function is normal. The estimated ejection fraction is 55 %. Stage 2 diastolic dysfunction. 0.9 x 0.7 cm mobile echogenic structure noted on left coronary cusp consistent with a vegetation Severe pulmonary hypertension. Ordering Physician: Christine Thorne Referring Physician: Francisco Alcazar Performed By: Malka Wild RDCS, RVT
[2020-12-01 12:37] LABS: Partial Thromboplast Time 39.4 Seconds (24.1-36.2)
[2020-12-01] MEDS: HEPARIN/D5w 25,000 UNITS 25,000 UNITS/250 ML IV.SOLN. 18 UNITS IV (12:54)
[2020-12-01] MEDS: Insulin Lispro 100 UNIT/ML INSULN.PEN SC (13:03)
[2020-12-01] MEDS: Insulin Lispro 100 UNIT/ML INSULN.PEN 6 UNIT SC (17:41)
[2020-12-01 17:45] LABS: Bedside Glucose 147 mg/dL (70-110)
[2020-12-01 19:48] LABS: Partial Thromboplast Time 118.4 Seconds (24.1-36.2)
[2020-12-01] MEDS: Atorvastatin Calcium 20 MG Tablet PO (22:52)
[2020-12-01] MEDS: Tamsulosin HCl 0.4 MG Capsule PO (22:52)
[2020-12-01 23:11] LABS: Bedside Glucose 139 mg/dL (70-110)
[2020-12-02] VITALS (35 sets, daily range): BP systolic 84–114; BP diastolic 37–80; PULSE 62–93; RESP 14–29; TEMP 36.4–37.1; O2SAT 90–100
[2020-12-02 02:25] LABS: Absolute Lymphocyte Count 1.34 X10^3/uL (0.83-4.51); Absolute Neutrophil Count 14.3 X10^3/uL (2.0-7.7); Basophil# 0.04 X10^3/uL; Basophil% 0.2 % (0-1); Eosinophil# 0.22 X10^3/uL; Eosinophils% 1.2 % (0-5); Hematocrit 26.9 % (40-54); Hemoglobin 8.1 g/dL (13.0-16.5); Lymphocyte # 1.34 X10^3/ul (0.83-4.51); Lymphocyte % 7.1 % (19-41); Mean Corp Hgb Conc 30.1 g/dL (32-36); Mean Corpuscular Hgb 29.8 pg (27.0-32.0); Mean Corpuscular Volume 98.9 fL (80-94); Mean Platelet Vol. 8.9 fl (6.2-12.0); Monocyte# 2.47 X10^3/uL; NRBC Flagged by Analyzer 0.6 % (0-5); Neutrophil # 14.25 X10^3/uL (2.7-7.7); Neutrophil % 75.2 % (47-70); POSITIVE DIFFERENTIAL YES; Platelet Count 153 K/mm3 (150-450); RBC Distribution Width CV 16.3 % (11.6-14.6); RBC Distribution Width SD 59.3 fl (35.1-43.9); Red Blood Count 2.72 M/mm3 (4.6-6.2)
[2020-12-02 02:37] LABS: Differential Indicated SCAN CRITERIA MET
[2020-12-02 02:40] LABS: International Normalized Ratio 1.3; Prothrombin Time (Protime)PT. 15.9 SECONDS (11.7-14.9)
[2020-12-02 02:41] LABS: Partial Thromboplast Time 57.6 Seconds (24.1-36.2)
[2020-12-02 02:46] LABS: Anion Gap 9 (5-15); BUN 53 mg/dL (7-18); BUN/Creat Ratio 10.4 RATIO (10-20); Calcium,Total 8.3 mg/dL (8.5-10.1); Chloride 91 mmol/L (98-107); Creatinine, Serum 5.11 mg/dL (0.70-1.30); EST Glomerular Filtration Rate 12 mL/min (>60); Est Glom Filt Rate - Afr Amer 15 mL/min (>60); Glucose 139 mg/dL (74-106); Potassium 4.3 mmol/L (3.5-5.1); Sodium Level 129 mmol/L (136-145)
[2020-12-02 03:05] LABS: Differential Comment SCANNED
--- NOTE | 2020-12-02 06:53 | PN.CC_ITS ---
Assessment & Plan Assessment/Plan (1) Septic shock: (2) UTI (urinary tract infection): (3) Pyelonephritis: (4) ESRD (end stage renal disease): (5) Bradycardia: (6) Supratherapeutic INR: (7) Diabetes mellitus, type II: QUALIFIERS: Qualified Code(s): Z79.4 - care home (current) use of insulin PLAN: RECOMMENDATIONS: 1. Continue to wean Levophed as tolerated to maintain a mean arterial pressure at or above 60 mmHg. 2. Continue hemodialysis support per nephrology recommendations. 3. Echocardiogram is pending. 4. Continue antimicrobials. 5. Continue to wean supplemental oxygen as tolerated. 6. Encourage incentive spirometer use and mobilize patient as tolerated. IMPRESSIONS: 1. Septic shock secondary to pyelonephritis secondary to E faecalis secondary to UTI Despite being end-stage renal disease, patient reportedly makes significant urine. Patient has had pyelonephritis and currently has hydronephrosis. Plan to continue supportive measures including antimicrobials and vasopressor support to maintain a mean arterial pressure at or above 60 mmHg. 3. Chronic A. fib/chronic diastolic congestive heart failure/bradycardia Plan to continue heparin infusion as ordered. Volume optimization through hemodialysis would be indicated. 4. BPH/end-stage renal disease/hyponatremia/type 2 diabetes mellitus/debility Complicates care, management, recovery and prognosis. Continue Lantus and sliding scale insulin coverage. Physical therapy to work with the patient. TIME: 33 minutes of critical care time, independent of procedures, was spent addressing the patient's septic shock, review of all data and collaboration with the care team. ([id number]) Subjective Subjective The patient was seen and examined at the bedside this morning. Events from the last 24 hours have been reviewed. The patient remains on Levophed at 15 mcg/min to maintain hemodynamic stability. He is maintaining appropriate oxygen saturations on 4 L/min via nasal cannula. The patient is currently documented to be overall net +3.3 L for the hospital admission. Hemoglobin is stable this morning at 8.1 g/dL. Chemistry profile was notable for a sodium of 129, chloride of 91, BUN of 53 and creatinine of 5.1. Objective Data Objective Data The patient's most recent lab work, culture data and imaging studies have all been personally reviewed. Surface echocardiogram from November 2019 demonstrated an ejection fraction of 55%. The RV was noted to be moderately dilated with moderate global RV systolic dysfunction. Right ventricular systolic pressure was estimated to be 71 mmHg. Urine and blood cultures dated November 29 were positive for Enterococcus faecalis. Vital Signs: Vital Signs Temp Pulse Resp BP Pulse Ox 98 F 70 20 H 110/48 L 100 12/02/20 06:00 12/02/20 06:00 12/02/20 06:00 12/02/20 06:00 12/02/20 06:00 Oxygen Flow Rate (L/min) 4 Oxygen Delivery Method Nasal Cannula Weight: 142.7 kg Body Mass Index (BMI) 47.9 Intake & Output: Intake and Output for Last 24 Hours 11/30/20 12/01/20 12/02/20 23:59 23:59 23:59 Intake Total 3388.77 / 3388.77 2133.33 / 2133.33 327.26 / 327.26 Output Total 2545 / 2545 30 / 30 15 / 15 Balance 843.77 / 843.77 2103.33 / 2103.33 312.26 / 312.26 Lab / Micro Data Attestation: I reviewed the patient's lab results. Result Diagrams: 12/02/20 02:00 12/02/20 02:00 Labs: Laboratory Results - last 24 hr 11/30/20 02:21: Crossmatch See Detail 12/01/20 04:35: Diff Path Review August12/01/20 07:58: POC Glucose 136 H 12/01/20 11:09: POC Glucose 149 H 12/01/20 12:17: APTT 39.4 H 12/01/20 16:47: POC Glucose 147 H 12/01/20 18:59: APTT 118.4 H* 12/01/20 22:54: POC Glucose 139 H 12/02/20 02:00: WBC 19.0 H, RBC 2.72 L, Hgb 8.1 L, Hct 26.9 L, MCV 98.9 H, MCH 29.8, MCHC 30.1 L, RDW Std Deviation 59.3 H, RDW Coeff of Janiya 16.3 H, Plt Count 153, MPV 8.9, Immature Gran % (Auto) 3.300 H, Neut % (Auto) 75.2 H, Lymph % (Auto) 7.1 L, [place] % (Auto) 13.0 H, Eos % (Auto) 1.2, Baso % (Auto) 0.2, Absolute Neuts (auto) 14.3 H, Absolute Lymphs (auto) 1.34, Nucleated RBC % 0.6, Differential Comment SCANNED, Diff Path Review August12/02/20 02:00: Sodium 129 L, Potassium 4.3, Chloride 91 L, Carbon Dioxide 29.0, Anion Gap 9, BUN 53 H, Creatinine 5.11 H, Estim Creat Clear Calc 14.50, Est GFR (MDRD) Af Amer 15 L, Est GFR (MDRD) Non-Af 12 L, BUN/Creatinine Ratio 10.4, Glucose 139 H, Calcium 8.3 L 12/02/20 02:00: PT 15.9 H, INR 1.3, APTT 57.6 H Micro: Microbiology 11/30/20 00:25 Blood Culture (Wb) - Line Draw Blood Culture - Final GPC Poss Enterococcus sp 11/29/20 13:20 Urine, Clean Catch Urine Culture - Preliminary GPC Poss Enterococcus sp 11/29/20 21:20 Blood Culture (Wb) - Anticubital Left - Preliminary Enterococcus faecalis 11/29/20 21:20 Blood Culture (Wb) - Anticubital Left Blood Culture - Preliminary Physical Exam Const alert General Appearance: cooperative, comfortable, well developed and appears older than stated age; Negative for in distress Nutritional Appearance: morbidly obese HEENT normocephalic, head/scalp atraumatic and moist oral mucous membranes Eyes PERRL, EOMs intact bilaterally and conjunctivae normal Neck supple General: trachea midline Resp Resp Narrative: Mild respiratory distress Auscultation: diminished lung sounds; Negative for rales, rhonchi or wheezes Percussion: Negative for dullness Cardio regular rate, regular rhythm, S1 normal heart sound and S2 normal heart sound Heart Sounds: murmur systolic II/ harsh mid left sternal border GI normal to inspection, nondistended, normoactive bowel sounds Extremity no clubbing, cyanosis or edema Skin no rashes or lesions noted Neuro oriented x3, CN's II-XII intact bilaterally, moves all extremities and no focal motor deficits Psych cooperative and affect normal Charges/Coding Procedures Hospitalists Procedures: 30224 Critial Care 1st Hr
[2020-12-02] MEDS: HEPARIN/D5w 25,000 UNITS 25,000 UNITS/250 ML IV.SOLN. 15 UNITS IV (07:13)
--- NOTE | 2020-12-02 08:27 | PCS.PANDOC ---
PANDEMIC DOCUMENTATION INITIATED: Date: 11/25/2020 Time: 190
--- NOTE | 2020-12-02 10:37 | PN.RENAL_ITS ---
Subjective Subjective Following for ESRD. The patient denies increasing shortness of breath. He has baseline dyspnea. There is no chest pain, nausea, or diarrhea. He is fatigued. Objective Data Objective Data Vital Signs: Vital Signs Temp Pulse Resp BP Pulse Ox 97.8 F 79 18 107/57 L 98 12/02/20 08:00 12/02/20 10:00 12/02/20 10:00 12/02/20 10:00 12/02/20 10:00 Oxygen Flow Rate (L/min) 4 Oxygen Delivery Method Nasal Cannula Weight: 142.7 kg Body Mass Index (BMI) 47.9 Intake & Output: Intake and Output for Last 24 Hours 11/30/20 12/01/20 12/02/20 23:59 23:59 23:59 Intake Total 3388.77 / 3388.77 2133.33 / 2133.33 581.86 / 581.86 Output Total 2545 / 2545 30 / 30 15 / 15 Balance 843.77 / 843.77 2103.33 / 2103.33 566.86 / 566.86 Lab / Micro Data Result Diagrams: 12/02/20 02:00 12/02/20 02:00 Labs: Laboratory Results - last 24 hr 11/30/20 02:21: Crossmatch See Detail 12/01/20 04:35: Diff Path Review August12/01/20 11:09: POC Glucose 149 H 12/01/20 12:17: APTT 39.4 H 12/01/20 16:47: POC Glucose 147 H 12/01/20 18:59: APTT 118.4 H* 12/01/20 22:54: POC Glucose 139 H 12/02/20 02:00: WBC 19.0 H, RBC 2.72 L, Hgb 8.1 L, Hct 26.9 L, MCV 98.9 H, MCH 29.8, MCHC 30.1 L, RDW Std Deviation 59.3 H, RDW Coeff of Janiya 16.3 H, Plt Count 153, MPV 8.9, Immature Gran % (Auto) 3.300 H, Neut % (Auto) 75.2 H, Lymph % (Auto) 7.1 L, [place] % (Auto) 13.0 H, Eos % (Auto) 1.2, Baso % (Auto) 0.2, Absolute Neuts (auto) 14.3 H, Absolute Lymphs (auto) 1.34, Nucleated RBC % 0.6, Differential Comment SCANNED, Diff Path Review August foll 12/02/20 02:00: Sodium 129 L, Potassium 4.3, Chloride 91 L, Carbon Dioxide 29.0, Anion Gap 9, BUN 53 H, Creatinine 5.11 H, Estim Creat Clear Calc 14.50, Est GFR (MDRD) Af Amer 15 L, Est GFR (MDRD) Non-Af 12 L, BUN/Creatinine Ratio 10.4, Glucose 139 H, Calcium 8.3 L 12/02/20 02:00: PT 15.9 H, INR 1.3, APTT 57.6 H Micro: Microbiology 11/29/20 13:20 Urine, Clean Catch Urine Culture - Final Enterococcus faecalis 11/29/20 21:20 Blood Culture (Wb) - Anticubital Left - Preliminary Enterococcus faecalis 11/29/20 21:20 Blood Culture (Wb) - Anticubital Left Blood Culture - Final Enterococcus faecalis 11/30/20 00:25 Blood Culture (Wb) - Line Draw Blood Culture - Final GPC Poss Enterococcus sp Physical Exam Narrative Patient is alert and oriented x3. Weak. Head: Atraumatic normocephalic. Heart: Normal S1-S2 RRR. Chest: Lungs are clear to auscultation. Abdomen: Soft, normal bowel sounds, no pain on palpation, no guarding or rebound. Extremity: 2+ lower extremity edema. Assessment & Plan Assessment/Plan (1) ESRD (end stage renal disease) on dialysis: (2) Hyperkalemia: (3) Hyponatremia: (4) Septic shock: (5) UTI (urinary tract infection): (6) Bradycardia: PLAN: PLAN: -Patient is on TTS hemodialysis schedule. No need for dialysis today. Will arrange for dialysis on his usual schedule tomorrow. -Potassium level is back to normal at 4.3 today. Continue to monitor potassium level. Renal diet -Sodium level is 129 mmol/L. Continue to limit fluid. -Hemodynamic support, UTI treatment as per the primary service. Please call if there is any question at [phone]. James Anne MD
[2020-12-02] MEDS: 0.9% Saline Lock 10 ML Syringe IV ×2 (11:14→21:21)
[2020-12-02] MEDS: Famotidine 20 MG Tablet PO (11:16)
[2020-12-02 11:17] LABS: Partial Thromboplast Time 83.1 Seconds (24.1-36.2)
[2020-12-02] MEDS: Acetaminophen 325 MG Tablet 650 MG PO (11:17)
--- NOTE | 2020-12-02 11:54 | CASEMGMT ---
ROBERTO BURGER updated by hospitalist that patient will need to be transferred to tertiary facility. ROBERTO BURGER looked up in-network tertiary facilities for patient's insurance: [facility], [facility], [facility], [facility], [facility]. Hospitalist updated.
[2020-12-02] MEDS: Nystatin Powder 15gm Bottle 1 APPLIC TOPICAL ×2 (12:03→21:18)
[2020-12-02 12:41] LABS: Pathologist Review Reviewed
[2020-12-02 12:41] LABS: Pathologist Review Reviewed
[2020-12-02 13:04] LABS: Pathologist Review Reviewed
[2020-12-02 13:07] LABS: Pathologist Review Reviewed
--- NOTE | 2020-12-02 13:50 | CASEMGMT ---
ROBERTO BURGER completed palliative screening tool for [facility]. Patient meets criteria for palliative consult. Hospitalist updated and order received for palliative consult. Referral faxed to [facility].
[2020-12-02] MEDS: Insulin Lispro 100 UNIT/ML INSULN.PEN SC (14:16)
[2020-12-02 14:21] LABS: Bedside Glucose 144 mg/dL (70-110)
--- NOTE | 2020-12-02 14:23 | CON.PCM.ID_ITS ---
Assessment & Plan Assessment/Plan (1) Septic shock: (2) ESRD (end stage renal disease): (3) Endocarditis: PLAN: E. faecalis aortic valve endocarditis with severe pulm htn, 3+ tricuspid insufficiency, and septic shock with ESRD. Bcx x2 and ucx with enterococcus faecalis in ED 11/01/20, pt given keflex, not contacted re: results. Will have infection control investigate. Repeat bcx pending. Change abx to amp/ceftriaxone. With lack of improvement in shock and cardiac dysfunction, recommend transfer for cardiac surgery eval. He is agreeable. He has been vaccinated for covid. Thank you, will follow while he is here, d/w primary team and Dr. Torres with critical care. (4) Enterococcal bacteremia: HPI Consult Data Date of Consult: 12/02/20 HPI Narrative HPI Narrative: SHERRIE GUERRIER, is a 60 M with ESRD, HD TTS via LUE fistula, presented to ED 11/01/20 at [facility] with 2-3 weeks of not feeling well, developed fever and R sided back pain for 2-3 days. Sent home on keflex, but ucx and bcx x2 with enterococcus faecalis. He reports he was not contacted about these results, and abx were not changed. Since then, 2-3 weeks of progressive fatigue, BLE swelling, fever, weakness/shakes. Has completed covid vaccine. Came to ED, admitted to icu with shock, started on vanc/zosyn. Bcx x2 and ucx with enterococcus. TTE showed mod/severe tricuspid insufficiency, severe pulm htn, and 0.6x0.9cm aortic valve veg. Remains on pressors here, abx narrowed to ampicillin this AM. Full ROS performed and neg except as noted above. [facility] Medical History (Updated 12/02/20 @ 14:[address] Rony Recinos MD) Acute on chronic congestive heart failure MOUNA (acute kidney injury) Atrial fibrillation CHF (congestive heart failure) Chronic diastolic congestive heart failure Chronic kidney disease (CKD) Chronic renal failure, stage 5 Diabetes mellitus, type II History of arm fracture History of atrial flutter History of paroxysmal supraventricular tachycardia History of patent ductus arteriosus as a child Hyperkalemia Hyperlipidemia Hypertension MCFP current use of anticoagulant Morbid obesity with BMI of 50.0-59.9, adult Nonrheumatic tricuspid valve regurgitation LASHAWN (obstructive sleep apnea) Paroxysmal SVT (supraventricular tachycardia) Problem with dialysis access Pulmonary hypertension, moderate to severe Supratherapeutic INR Home Medications atorvastatin 20 mg PO QHS 04/16/19 [History Last Taken 11/27/20] insulin lispro 5 unit SC LUNCH insuln.pen 04/28/19 [Rx Last Taken 11/27/20] insulin lispro 7 unit SC BREAKFAST insuln.pen 04/28/19 [Rx Last Taken 11/29/20] docusate sodium 100 mg PO BID PRN PRN 11/21/19 [History Last Taken 11/29/20] melatonin 3 mg PO QHS PRN 11/21/19 [History Last Taken 07/05/20] insulin lispro 6 unit SC DINNER 12/29/19 [History Last Taken 11/27/20] insulin lispro See Protocol SC ACHS 12/29/19 [History Last Taken 11/27/20] tamsulosin 0.4 mg PO QHS 12/29/19 [History Last Taken 11/27/20] warfarin 3 mg PO SUMOTUWETHFR 06/10/20 [History Last Taken 11/27/20] insulin glargine 100 unit/mL (3 mL) subcutaneous pen 15 unit SC BID ml 08/23/20 [History Last Taken 11/29/20] amiodarone 200 mg PO DAILY 11/01/20 [History Last Taken 11/29/20] furosemide 80 mg PO BID 11/01/20 [History Last Taken 11/29/20] warfarin 6 mg PO SA 11/01/20 [History Last Taken 11/23/20] magnesium hydroxide [Milk of Magnesia] 30 - 60 ml PO DAILY PRN 11/29/20 [History Last Taken 11/29/20] Allergy/AdvReac Type Severity Reaction Status Date / Time albuterol AdvReac increased Verified 11/29/20 11:30 heart rate amoxicillin trihydrate AdvReac Diarrhea Verified 11/29/20 11:30 [From Augmentin] indomethacin [From Indocin] AdvReac Nausea Verified 11/29/20 11:30 potassium clavulanate AdvReac Diarrhea Verified 11/29/20 11:30 [From Augmentin] Family History Mother , of complications post valve surgery Hypertension Diabetes CVA (cerebral vascular accident) X2 Valvular heart disease Father CVA (cerebral vascular accident) Hypertension Hyperlipidemia Surgical History History of radiofrequency ablation procedure for cardiac arrhythmia History of right and left heart catheterization (02/18/98) History of ventricular septal defect repair history transposition AV Fistula left forearm (~04/02/20) Social History Smoking Status: Former smoker how long ago did patient quit smokin years ago alcohol intake: current alcohol intake frequency: holidays/special occasions only substance use type: does not use caffeine: No Physical Exam Const alert and oriented x3 Constitutional Narrative: ill appearing General Appearance: cooperative Exam Limitations: no limitations HEENT normocephalic and head/scalp atraumatic Eyes PERRL and EOMs intact bilaterally Neck supple and No nodes Resp normal air movement and clear to auscultation bilaterally Cardio regular rate and regular rhythm GI normal to inspection, nondistended, normoactive bowel sounds Extremity General Extremity: edema Skin no rashes or lesions noted Skin Narrative: Bilateral thumbs with large single splinter hemorrhage. LUE fistula, no inflammation. L chest subclavian cvc. Lab / Micro Data Result Diagrams: 12/02/20 02:00 12/02/20 02:00 Labs: Laboratory Results - last 24 hr 11/29/20 13:45: Diff Path Review Reviewed 11/30/20 05:50: Diff Path Review Reviewed 12/01/20 04:35: Diff Path Review Reviewed 12/01/20 16:47: POC Glucose 147 H 12/01/20 18:59: APTT 118.4 H* 12/01/20 22:54: POC Glucose 139 H 12/02/20 02:00: WBC 19.0 H, RBC 2.72 L, Hgb 8.1 L, Hct 26.9 L, MCV 98.9 H, MCH 29.8, MCHC 30.1 L, RDW Std Deviation 59.3 H, RDW Coeff of Janiya 16.3 H, Plt Count 153, MPV 8.9, Immature Gran % (Auto) 3.300 H, Neut % (Auto) 75.2 H, Lymph % (Auto) 7.1 L, [place] % (Auto) 13.0 H, Eos % (Auto) 1.2, Baso % (Auto) 0.2, Absolute Neuts (auto) 14.3 H, Absolute Lymphs (auto) 1.34, Nucleated RBC % 0.6, Differential Comment SCANNED, Diff Path Review Reviewed 12/02/20 02:00: Sodium 129 L, Potassium 4.3, Chloride 91 L, Carbon Dioxide 29.0, Anion Gap 9, BUN 53 H, Creatinine 5.11 H, Estim Creat Clear Calc 14.50, Est GFR (MDRD) Af Amer 15 L, Est GFR (MDRD) Non-Af 12 L, BUN/Creatinine Ratio 10.4, Gluc ose 139 H, Calcium 8.3 L 12/02/20 02:00: PT 15.9 H, INR 1.3, APTT 57.6 H 12/02/20 11:00: APTT 83.1 H 12/02/20 14:14: POC Glucose 144 H Micro: Microbiology 11/29/20 13:20 Urine, Clean Catch Urine Culture - Final Enterococcus faecalis 11/29/20 21:20 Blood Culture (Wb) - Anticubital Left - Preliminary Enterococcus faecalis 11/29/20 21:20 Blood Culture (Wb) - Anticubital Left Blood Culture - Final Enterococcus faecalis 11/30/20 00:25 Blood Culture (Wb) - Line Draw Blood Culture - Final GPC Poss Enterococcus sp Radiology Impression Echocardiogram 12/01/20 11:53 Interpretation Summary Normal LV size. Mild concentric left ventricular hypertrophy. Left ventricular systolic function is normal. The estimated ejection fraction is 55 %. Stage 2 diastolic dysfunction. 0.9 x 0.7 cm mobile echogenic structure noted on left coronary cusp consistent with a vegetation Severe pulmonary hypertension. Ordering Physician: Christine Thorne Referring Physician: Francisco Alcazar Performed By: Malka Wild, SONIDO, RVT
--- NOTE | 2020-12-02 15:55 | PCM.PN.HOSP ---
Subjective Subjective Patient states he does feel better today. He is more awake now than he has been previously. He is complaining of some intermittent abdominal cramping but states he is awaiting a bowel movement. He denies specifically abdominal pain. Objective Data Objective Data Vital Signs: Vital Signs Temp Pulse Resp BP Pulse Ox 97.8 F 64 14 84/66 L 100 12/02/20 12:00 12/02/20 12:00 12/02/20 12:00 12/02/20 12:00 12/02/20 12:00 Oxygen Flow Rate (L/min) 4 Oxygen Delivery Method Nasal Cannula Weight: 142.7 kg Body Mass Index (BMI) 47.9 Intake & Output: Intake and Output for Last 24 Hours 11/30/20 12/01/20 12/02/20 23:59 23:59 23:59 Intake Total 3388.77 / 3388.77 2133.33 / 2133.33 800.56 / 800.56 Output Total 2545 / 2545 30 / 30 15 / 15 Balance 843.77 / 843.77 2103.33 / 2103.33 785.56 / 785.56 Lab / Micro Data Result Diagrams: 12/02/20 02:00 12/02/20 02:00 Labs: Laboratory Results - last 24 hr 11/29/20 13:45: Diff Path Review Reviewed 11/30/20 05:50: Diff Path Review Reviewed 12/01/20 04:35: Diff Path Review Reviewed 12/01/20 16:47: POC Glucose 147 H 12/01/20 18:59: APTT 118.4 H* 12/01/20 22:54: POC Glucose 139 H 12/02/20 02:00: WBC 19.0 H, RBC 2.72 L, Hgb 8.1 L, Hct 26.9 L, MCV 98.9 H, MCH 29.8, MCHC 30.1 L, RDW Std Deviation 59.3 H, RDW Coeff of Janiya 16.3 H, Plt Count 153, MPV 8.9, Immature Gran % (Auto) 3.300 H, Neut % (Auto) 75.2 H, Lymph % (Auto) 7.1 L, [place] % (Auto) 13.0 H, Eos % (Auto) 1.2, Baso % (Auto) 0.2, Absolute Neuts (auto) 14.3 H, Absolute Lymphs (auto) 1.34, Nucleated RBC % 0.6, Differential Comment SCANNED, Diff Path Review Reviewed 12/02/20 02:00: Sodium 129 L, Potassium 4.3, Chloride 91 L, Carbon Dioxide 29.0, Anion Gap 9, BUN 53 H, Creatinine 5.11 H, Estim Creat Clear Calc 14.50, Est GFR (MDRD) Af Amer 15 L, Est GFR (MDRD) Non-Af 12 L, BUN/Creatinine Ratio 10.4, Glucose 139 H, Calcium 8.3 L 12/02/20 02:00: PT 15.9 H, INR 1.3, APTT 57.6 H 12/02/20 11:00: APTT 83.1 H 12/02/20 14:14: POC Glucose 144 H Micro: Microbiology 11/29/20 13:20 Urine, Clean Catch Urine Culture - Final Enterococcus faecalis 11/29/20 21:20 Blood Culture (Wb) - Anticubital Left - Preliminary Enterococcus faecalis 11/29/20 21:20 Blood Culture (Wb) - Anticubital Left Blood Culture - Final Enterococcus faecalis 11/30/20 00:25 Blood Culture (Wb) - Line Draw Blood Culture - Final GPC Poss Enterococcus sp Radiography Diagnostic Testing: Radiology Impression Echocardiogram 12/01/20 11:53 Interpretation Summary Normal LV size. Mild concentric left ventricular hypertrophy. Left ventricular systolic function is normal. The estimated ejection fraction is 55 %. Stage 2 diastolic dysfunction. 0.9 x 0.7 cm mobile echogenic structure noted on left coronary cusp consistent with a vegetation Severe pulmonary hypertension. Ordering Physician: Christine Thorne Referring Physician: Francisco Alcazar Performed By: Malka Wild, RDCS, RVT Physical Exam Const alert, oriented x3 and no apparent distress Constitutional Narrative: Upper middle-aged white male who appears older than stated age, lying in bed sleeping, appears comfortable, nontoxic, on baseline 4 L nasal cannula without any signs of respiratory distress Exam Limitations: no limitations HEENT head/scalp atraumatic and moist oral mucous membranes Head and Scalp: normocephalic Eyes PERRL and EOMs intact bilaterally Eyes Narrative: Pale conjunctiva Neck no lymphadenopathy and supple Neck Narrative: Trachea midline, no thyroid enlargement noted, left subclavian line clean and dry Resp normal respiratory effort, no retractions, no use of accessory muscles and clear to auscultation bilaterally Resp Narrative: Diminished at bases bilaterally but clear Auscultation: Negative for crackles, rales, rhonchi or wheezes Cardio regular rate, regular rhythm, S1 normal heart sound, S2 normal heart sound, no murmurs, no rub, no gallops, no clicks and no JVD Cardio Narrative: No murmur but heart tones are distant GI normal to inspection, nondistended, normoactive bowel sounds, soft to palpation, non-tender and non-distended Extremity normal to inspection and full ROM Extremity Narrative: No cyanosis or clubbing, 1+ bilateral lower extremity pitting edema General Extremity: edema Peripheral Pulses: Yes pulses 2+ throughout Skin skin turgor normal, no jaundice, no petechiae and no mottling Skin Narrative: Left upper extremity fistula with positive bruit and thrill, Neuro oriented x3, CN's II-XII intact bilaterally, moves all extremities and no focal motor deficits Neuro Narrative: Generalized weakness but no focal deficits Sensorium / Orientation: awake and alert Speech: speech normal Psych affect normal Assessment & Plan Assessment/Plan (1) Septic shock: (2) Acute UTI: (3) Pyelonephritis: PLAN: Septic shock secondary to Enterococcus pyelonephritis/UTI -Patient meets significant amount of urine despite end-stage renal disease -Remains on pressors with Levophed 15 -Continue broad spectrum antibiotics--> Vanco and Zosyn -Await sensitivities to narrow antibiotic therapy -Map goal 65 -Wean pressors as able -Blood and urine cultures are positive for Enterococcus -TTE shows IE -repeat cx pending from this am -Consult infectious disease AV IE -Surface ECHO + for AV vegetation 0.7-0.9cm -consult cards -Transfer in progress to [facility]--> awaiting bed -ID following--> continue CTX and Ancef Coagulopathy secondary to Coumadin use -INR was 3.6 on presentation and is now 1.3 -Resolved -Goal INR is 2-3 -Patient received 3 units of FFP, vitamin K, and DDAVP during hospitalization Acute on chronic anemia -2 units given 11/30/2020 -Continued good hemostasis -Hemoglobin appropriately corrected -Repeat CBC in a.m. PAF -Patient had been in sinus rhythm but reverted back to atrial fibrillation -Continue amiodarone -Coumadin is on hold given supratherapeutic INR -Start heparin drip given possible procedures required--> will transition to Coumadin once stable Metabolic encephalopathy -Suspect related to acute infection -close to baseline -Improving some slowly End-stage renal disease on HD -Patient makes considerable amount of urine despite renal failure -Dialysis per nephrology -Nephrology is consulted Chronic hyponatremia -Managed with volume removal per dialysis -Monitor -Stable DM-2 -Continue carb controlled diet -Continue lispro with meals -Continue Lantus as ordered -SSI -Accu-Cheks before meals and at bedtime -Blood sugars in goal range of 140-180 -Continue to monitor Debility -PT/OT Super morbid obesity -BMI is 47.9 -Complicates treatment, prognosis, and outcomes -Recommend weight loss -Suspect LASHAWN at baseline -Would initiate BiPAP if patient has any respiratory compromise DVT prophylaxis -heparin ggt CODE STATUS -Full code Charges/Coding Visit Charges Inpatient E&M: [address] [facility] L[facility]
[2020-12-02 17:41] LABS: Bedside Glucose 144 mg/dL (70-110)
[2020-12-02 18:12] LABS: Partial Thromboplast Time 77.5 Seconds (24.1-36.2)
[2020-12-02] MEDS: Amiodarone 200 MG Tablet PO (19:40)
[2020-12-02 21:16] LABS: Bedside Glucose 146 mg/dL (70-110)
[2020-12-02] MEDS: Atorvastatin Calcium 20 MG Tablet PO (21:18)
[2020-12-02] MEDS: Tamsulosin HCl 0.4 MG Capsule PO (21:18)
[2020-12-02] MEDS: TITRATION PARAMETER CHANGE 1 EACH IV (21:23)
[2020-12-02 21:58] LABS: Partial Thromboplast Time 69.1 Seconds (24.1-36.2)
[2020-12-03] VITALS (39 sets, daily range): BP systolic 79–133; BP diastolic 33–96; PULSE 63–75; RESP 15–31; TEMP 36.1–36.8; O2SAT 94–100
[2020-12-03] MEDS: HEPARIN/D5w 25,000 UNITS 25,000 UNITS/250 ML IV.SOLN. 14 UNITS IV (00:32)
[2020-12-03 05:53] LABS: Absolute Lymphocyte Count 1.13 X10^3/uL (0.83-4.51); Absolute Neutrophil Count 16.8 X10^3/uL (2.0-7.7); Basophil# 0.07 X10^3/uL; Basophil% 0.3 % (0-1); Eosinophil# 0.41 X10^3/uL; Eosinophils% 1.9 % (0-5); Hematocrit 25.8 % (40-54); Hemoglobin 7.7 g/dL (13.0-16.5); Lymphocyte # 1.13 X10^3/ul (0.83-4.51); Lymphocyte % 5.3 % (19-41); Mean Corp Hgb Conc 29.8 g/dL (32-36); Mean Corpuscular Hgb 29.3 pg (27.0-32.0); Mean Corpuscular Volume 98.1 fL (80-94); Mean Platelet Vol. 8.9 fl (6.2-12.0); Monocyte# 2.12 X10^3/uL; Monocyte% 9.9 % (0-10); NRBC Flagged by Analyzer 0.7 % (0-5); Neutrophil # 16.81 X10^3/uL (2.7-7.7); Neutrophil % 78.4 % (47-70); POSITIVE DIFFERENTIAL YES; Platelet Count 131 K/mm3 (150-450); RBC Distribution Width CV 15.6 % (11.6-14.6); RBC Distribution Width SD 55.3 fl (35.1-43.9); Red Blood Count 2.63 M/mm3 (4.6-6.2); White Blood Count 21.4 K/mm3 (4.4-11.0)
[2020-12-03 05:59] LABS: Differential Indicated SCAN CRITERIA MET
[2020-12-03 06:04] LABS: Anion Gap 10 (5-15); BUN 69 mg/dL (7-18); BUN/Creat Ratio 11.2 RATIO (10-20); Chloride 90 mmol/L (98-107); Creatinine, Serum 6.15 mg/dL (0.70-1.30); EST Glomerular Filtration Rate 10 mL/min (>60); Est Glom Filt Rate - Afr Amer 12 mL/min (>60); Estimated Creatinine Clearance 12.05 ml/min; Glucose 123 mg/dL (74-106); International Normalized Ratio 1.4; Prothrombin Time (Protime)PT. 16.6 SECONDS (11.7-14.9); Sodium Level 127 mmol/L (136-145)
[2020-12-03 06:05] LABS: Partial Thromboplast Time 77.7 Seconds (24.1-36.2)
[2020-12-03 06:10] LABS: Vancomycin, Random Level 20.8 ug/mL (0.0-15.0)
[2020-12-03 06:28] LABS: Differential Comment SCANNED
--- NOTE | 2020-12-03 07:33 | PCM.PN.INT ---
Assessment & Plan Assessment/Plan (1) Septic shock: (2) UTI (urinary tract infection): (3) Pyelonephritis: (4) ESRD (end stage renal disease): (5) Bradycardia: (6) Supratherapeutic INR: (7) Diabetes mellitus, type II: QUALIFIERS: Qualified Code(s): Z79.4 - retirement (current) use of insulin PLAN: RECOMMENDATIONS: 1. Continue vasopressor support to maintain a mean arterial pressure at or above 60 mmHg. 2. Continue hemodialysis support per nephrology recommendations. 3. Continue antimicrobials, per ID recommendations. 4. Continue to wean supplemental oxygen as tolerated. 5. Encourage incentive spirometer use and mobilize patient as tolerated. 6. Awaiting transfer to tertiary care facility. IMPRESSIONS: 1. 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 The patient will be continued on appropriate antimicrobial therapy per ID recommendations. In addition, vasopressor support will be continued to maintain a mean arterial pressure at or above 60 mmHg. Given increasing need for Levophed this morning, vasopressin will be added. The patient is currently awaiting transfer to a tertiary care facility. 2. Chronic A. fib/chronic diastolic congestive heart failure/bradycardia Plan to continue heparin infusion as ordered. Volume optimization through hemodialysis would be indicated. 3. BPH/end-stage renal disease/hyponatremia/type 2 diabetes mellitus/debility Complicates care, management, recovery and prognosis. Continue Lantus and sliding scale insulin coverage. Physical therapy to work with the patient. TIME: 34 minutes of critical care time, independent of procedures, was spent addressing the patient's septic shock, review of all data and collaboration with the care team. ([id number]) Subjective Subjective The patient was seen and examined at the bedside this morning. Events from the last 24 hours have been reviewed. The patient remains on Levophed at 25 mcg/min in an attempt to maintain hemodynamic stability. Echocardiogram completed yesterday revealed a sizable aortic valve vegetation. The patient is currently awaiting transfer to a tertiary care facility. The patient is currently documented to be overall net +5.4 L for the hospital admission. White count remains elevated at 21,000. Hemoglobin is stable at 7.7 g/dL. Platelet count is low at 131,000. Chemistry profile was notable for a sodium of 127, chloride of 90 and creatinine of 6.15. Objective Data Objective Data The patient's most recent lab work, culture data and imaging studies have all been personally reviewed. Surface echocardiogram from November 2019 demonstrated an ejection fraction of 55%. The RV was noted to be moderately dilated with moderate global RV systolic dysfunction. Right ventricular systolic pressure was estimated to be 71 mmHg. Urine and blood cultures dated November 29 were positive for Enterococcus faecalis. Vital Signs: Vital Signs Temp Pulse Resp BP Pulse Ox 97.0 F L 66 15 89/50 L 99 12/03/20 04:00 12/03/20 07:00 12/03/20 07:00 12/03/20 07:00 12/03/20 07:00 Oxygen Flow Rate (L/min) 4 Oxygen Delivery Method Nasal Cannula Weight: 145.6 kg Body Mass Index (BMI) 47.9 Intake & Output: Intake and Output for Last 24 Hours 12/01/20 12/02/20 12/03/20 23:59 23:59 23:59 Intake Total 2133.33 / 2133.33 1638.15 / 1773.78 917.10 / 917.10 Output Total 30 / 30 115 / 115 0 / 0 Balance 2103.33 / 2103.33 1523.15 / 1658.78 917.10 / 917.10 Lab / Micro Data Attestation: I reviewed the patient's lab results. Result Diagrams: 12/03/20 05:35 12/03/20 05:35 Labs: Laboratory Results - last 24 hr 11/29/20 13:45: Diff Path Review Reviewed 11/30/20 05:50: Diff Path Review Reviewed 12/01/20 04:35: Diff Path Review Reviewed 12/02/20 02:00: Diff Path Review Reviewed 12/02/20 11:00: APTT 83.1 H 12/02/20 14:14: POC Glucose 144 H 12/02/20 16:27: POC Glucose 144 H 12/02/20 17:40: APTT 77.5 H 12/02/20 21:09: POC Glucose 146 H 12/02/20 21:32: APTT 69.1 H 12/03/20 05:35: WBC 21.4 H, RBC 2.63 L, Hgb 7.7 L, Hct 25.8 L, MCV 98.1 H, MCH 29.3, MCHC 29.8 L, RDW Std Deviation 55.3 H, RDW Coeff of Janiya 15.6 H, Plt Count 131 L, MPV 8.9, Immature Gran % (Auto) 4.200 H, Neut % (Auto) 78.4 H, Lymph % (Auto) 5.3 L, [place] % (Auto) 9.9, Eos % (Auto) 1.9, Baso % (Auto) 0.3, Absolute Neuts (auto) 16.8 H, Absolute Lymphs (auto) 1.13, Nucleated RBC % 0.7, Differential Comment SCANNED, Diff Path Review August foll 12/03/20 05:35: Sodium 127 L, Potassium 4.0, Chloride 90 L, Carbon Dioxide 27.0, Anion Gap 10, BUN 69 H, Creatinine 6.15 H, Estim Creat Clear Calc 12.05, Est GFR (MDRD) Af Amer 12 L, Est GFR (MDRD) Non-Af 10 L, BUN/Creatinine Ratio 11.2, Glucose 123 H, Calcium 8.0 L 12/03/20 05:35: PT 16.6 H, INR 1.4, APTT 77.7 H 12/03/20 05:35: Random Vancomycin 20.8 H Micro: Microbiology 12/02/20 02:00 Blood Culture (Wb) - Central Line Bacteria Detection (PCR) - Preliminary Enterococcus faecalis 12/02/20 02:00 Blood Culture (Wb) - Central Line Blood Culture - Preliminary 12/02/20 15:35 Mucosa - Nasopharyngeal SARS-CoV-2 Antigen (Rapid) - Final 11/29/20 13:20 Urine, Clean Catch Urine Culture - Final Enterococcus faecalis 11/29/20 21:20 Blood Culture (Wb) - Anticubital Left - Preliminary Enterococcus faecalis 11/29/20 21:20 Blood Culture (Wb) - Anticubital Left Blood Culture - Final Enterococcus faecalis 11/30/20 00:25 Blood Culture (Wb) - Line Draw Blood Culture - Final GPC Poss Enterococcus sp Radiography Diagnostic Testing: Radiology Impression Echocardiogram 12/01/20 11:53 Interpretation Summary Normal LV size. Mild concentric left ventricular hypertrophy. Left ventricular systolic function is normal. The estimated ejection fraction is 55 %. Stage 2 diastolic dysfunction. 0.9 x 0.7 cm mobile echogenic structure noted on left coronary cusp consistent with a vegetation Severe pulmonary hypertension. Ordering Physician: Christine Thorne Referring Physician: Francisco Alcazar Performed By: Malka Wild, SONIDO, RVT Physical Exam Const alert General Appearance: cooperative, comfortable, well developed and appears older than stated age; Negative for in distress Nutritional Appearance: morbidly obese HEENT normocephalic, head/scalp atraumatic and moist oral mucous membranes Eyes PERRL, EOMs intact bilaterally and conjunctivae normal Neck supple General: trachea midline Resp Resp Narrative: Mild respiratory distress Auscultation: diminished lung sounds; Negative for rales, rhonchi or wheezes Percussion: Negative for dullness Cardio regular rate, regular rhythm, S1 normal heart sound and S2 normal heart sound Heart Sounds: murmur systolic II/ harsh mid left sternal border GI normal to inspection, nondistended, normoactive bowel sounds Extremity no clubbing, cyanosis or edema Skin no rashes or lesions noted Neuro oriented x3, CN's II-XII intact bilaterally, moves all extremities and no focal motor deficits Psych cooperative and affect normal Charges/Coding Procedures Hospitalists Procedures: [id number] Critial Care 1st Hr
[2020-12-03] MEDS: Amiodarone 200 MG Tablet PO (07:58)
[2020-12-03] MEDS: Nystatin Powder 15gm Bottle 1 APPLIC TOPICAL ×2 (07:59→20:15)
[2020-12-03] MEDS: Famotidine 20 MG Tablet PO (07:59)
[2020-12-03] MEDS: Insulin Lispro 100 UNIT/ML INSULN.PEN 7 UNIT SC (07:59)
--- NOTE | 2020-12-03 10:11 | PCM.PN.ID ---
Physical Exam Narrative Feeling better, no fever, no n/v/d. Const alert General Appearance: cooperative Resp clear to auscultation bilaterally Auscultation: diminished lung sounds Cardio regular rate and regular rhythm Heart Sounds: murmur GI normal to inspection, nondistended, normoactive bowel sounds Extremity General Extremity: edema Skin no rashes or lesions noted ID ID: Route of nutrition/ use of supplements: [] Nutritional Intake: [] IV Site: [] Barcenas Catheter: [] Assessment & Plan Assessment/Plan (1) Septic shock: (2) ESRD (end stage renal disease): (3) Endocarditis: PLAN: E. faecalis aortic valve endocarditis with severe pulm htn, 3+ tricuspid insufficiency, and septic shock with ESRD. Bcx x2 and ucx with enterococcus faecalis in ED 11/01/20, pt given keflex, not contacted re: results. Will have infection control investigate. Repeat bcx (+) from yesterday, will repeat. 12/02 changed abx to amp/ceftriaxone. With lack of improvement in shock and cardiac dysfunction, recommend transfer for cardiac surgery eval; wbc worse today, pressors worse today. He has been vaccinated for covid. Will follow, d/w primary team (4) Enterococcal bacteremia:
--- NOTE | 2020-12-03 10:27 | PN.RENAL_ITS ---
Subjective Subjective Resting in bed, alert and oriented. Denies any complaints. Just getting started with dialysis. Objective Data Objective Data Vital Signs: Vital Signs Temp Pulse Resp BP Pulse Ox 97.0 F L 71 19 H 108/50 L 97 12/03/20 04:00 12/03/20 09:00 12/03/20 09:00 12/03/20 09:00 12/03/20 09:00 Oxygen Flow Rate (L/min) 4 Oxygen Delivery Method Nasal Cannula Weight: 145.6 kg Body Mass Index (BMI) 47.9 Intake & Output: Intake and Output for Last 24 Hours 12/01/20 12/02/20 12/03/20 23:59 23:59 23:59 Intake Total 2133.33 / 2133.33 1638.15 / 1773.78 1320.73 / 1320.73 Output Total 115 / 115 Balance 2103.33 / 2103.33 1523.15 / 1658.78 1300.73 / 1300.73 Lab / Micro Data Result Diagrams: 12/03/20 05:35 12/03/20 05:35 Labs: Laboratory Results - last 24 hr 11/29/20 13:45: Diff Path Review Reviewed 11/30/20 05:50: Diff Path Review Reviewed 12/01/20 04:35: Diff Path Review Reviewed 12/02/20 02:00: Diff Path Review Reviewed 12/02/20 11:00: APTT 83.1 H 12/02/20 14:14: POC Glucose 144 H 12/02/20 16:27: POC Glucose 144 H 12/02/20 17:40: APTT 77.5 H 12/02/20 21:09: POC Glucose 146 H 12/02/20 21:32: APTT 69.1 H 12/03/20 05:35: WBC 21.4 H, RBC 2.63 L, Hgb 7.7 L, Hct 25.8 L, MCV 98.1 H, MCH 29.3, MCHC 29.8 L, RDW Std Deviation 55.3 H, RDW Coeff of Janiya 15.6 H, Plt Count 131 L, MPV 8.9, Immature Gran % (Auto) 4.200 H, Neut % (Auto) 78.4 H, Lymph % (Auto) 5.3 L, [place] % (Auto) 9.9, Eos % (Auto) 1.9, Baso % (Auto) 0.3, Absolute Neuts (auto) 16.8 H, Absolute Lymphs (auto) 1.13, Nucleated RBC % 0.7, Differential Comment SCANNED, Diff Path Review May 12/03/20 05:35: Sodium 127 L, Potassium 4.0, Chloride 90 L, Carbon Dioxide 27.0, Anion Gap 10, BUN 69 H, Creatinine 6.15 H, Estim Creat Clear Calc 12.05, Est GFR (MDRD) Af Amer 12 L, Est GFR (MDRD) Non-Af 10 L, BUN/Creatinine Ratio 11.2, Glucose 123 H, Calcium 8.0 L 12/03/20 05:35: PT 16.6 H, INR 1.4, APTT 77.7 H 12/03/20 05:35: Random Vancomycin 20.8 H Micro: Microbiology 12/02/20 02:00 Blood Culture (Wb) - Central Line Bacteria Detection (PCR) - Final Enterococcus faecalis 12/02/20 02:00 Blood Culture (Wb) - Central Line Blood Culture - Preliminary 12/02/20 15:35 Mucosa - Nasopharyngeal SARS-CoV-2 Antigen (Rapid) - Final 11/29/20 13:20 Urine, Clean Catch Urine Culture - Final Enterococcus faecalis 11/29/20 21:20 Blood Culture (Wb) - Anticubital Left - Preliminary Enterococcus faecalis 11/29/20 21:20 Blood Culture (Wb) - Anticubital Left Blood Culture - Final Enterococcus faecalis 11/30/20 00:25 Blood Culture (Wb) - Line Draw Blood Culture - Final GPC Poss Enterococcus sp Radiography Diagnostic Testing: Radiology Impression Echocardiogram 12/01/20 11:53 Interpretation Summary Normal LV size. Mild concentric left ventricular hypertrophy. Left ventricular systolic function is normal. The estimated ejection fraction is 55 %. Stage 2 diastolic dysfunction. 0.9 x 0.7 cm mobile echogenic structure noted on left coronary cusp consistent with a vegetation Severe pulmonary hypertension. Ordering Physician: Christine Thorne Referring Physician: Francisco Alcazar Performed By: Malka Wild RDCS, RVT Physical Exam Narrative Patient is alert and oriented x3. Weak. Head: Atraumatic normocephalic. Heart: Normal S1-S2 RRR. Chest: Lungs are clear to auscultation. Abdomen: Soft, normal bowel sounds, no pain on palpation, no guarding or rebound. Extremity: 2+ lower extremity edema. AV fistula left forearm positive thrill and bruit Assessment & Plan Assessment/Plan (1) ESRD (end stage renal disease) on dialysis: (2) Hyperkalemia: (3) Hyponatremia: (4) Septic shock: (5) UTI (urinary tract infection): (6) Bradycardia: PLAN: PLAN: -Patient is on TTS hemodialysis schedule. For dialysis today over 3.5 hours, UF around 1 to 2 L as blood pressure tolerates. Outpatient EDW 129 kg. Today's predialysis weight 145 kg. It is very challenging with fluid removal at this time (in chronic unit patient is able to tolerate 4 to 5 L fluid removal with each HD session). Patient is on IV pressors. -We will give TAMICA with dialysis today. Received 2 units PRBC on 11/30 -Potassium level is back to normal at 4 today. Continue to monitor potassium level. We will adjust potassium bath with dialysis. Renal diet and protein supplement as ordered. -Sodium level is 129 mmol/L, patient is hypervolemic. Continue to limit fluid. -Hemodynamic support, UTI treatment as per the primary service. Blood and urine cultures are positive for Enterococcus. On IV antibiotics ampicillin and ceftriaxone -Echocardiogram completed revealed a sizable aortic valve vegetation, patient awaiting transfer to [facility]
--- NOTE | 2020-12-03 11:39 | PCM.PN.HOSP ---
Subjective Subjective Patient states he feels okay today. We are still waiting a bed at [facility] for transfer with regards to his infective endocarditis of his aortic valve. He remains on pressors with levo at 25 and vasopressin was initiated today. He is due for dialysis today. Objective Data Objective Data Vital Signs: Vital Signs Temp Pulse Resp BP Pulse Ox 97.0 F L 73 16 103/52 L 99 12/03/20 04:00 12/03/20 11:00 12/03/20 11:00 12/03/20 11:00 12/03/20 11:00 Oxygen Flow Rate (L/min) 4 Oxygen Delivery Method Nasal Cannula Weight: 145.6 kg Body Mass Index (BMI) 47.9 Intake & Output: Intake and Output for Last 24 Hours 12/01/20 12/02/20 12/03/20 23:59 23:59 23:59 Intake Total 2133.33 / 2133.33 1638.15 / 1773.78 1381.57 / 1381.57 Output Total 30 / 30 115 / 115 Balance 2103.33 / 2103.33 1523.15 / 1658.78 1361.57 / 1361.57 Lab / Micro Data Attestation: I reviewed the patient's lab results. Result Diagrams: 12/03/20 05:35 12/03/20 05:35 Labs: Laboratory Results - last 24 hr 11/29/20 13:45: Diff Path Review Reviewed 11/30/20 05:50: Diff Path Review Reviewed 12/01/20 04:35: Diff Path Review Reviewed 12/02/20 02:00: Diff Path Review Reviewed 12/02/20 14:14: POC Glucose 144 H 12/02/20 16:27: POC Glucose 144 H 12/02/20 17:40: APTT 77.5 H 12/02/20 21:09: POC Glucose 146 H 12/02/20 21:32: APTT 69.1 H 12/03/20 05:35: WBC 21.4 H, RBC 2.63 L, Hgb 7.7 L, Hct 25.8 L, MCV 98.1 H, MCH 29.3, MCHC 29.8 L, RDW Std Deviation 55.3 H, RDW Coeff of Janiya 15.6 H, Plt Count 131 L, MPV 8.9, Immature Gran % (Auto) 4.200 H, Neut % (Auto) 78.4 H, Lymph % (Auto) 5.3 L, [place] % (Auto) 9.9, Eos % (Auto) 1.9, Baso % (Auto) 0.3, Absolute Neuts (auto) 16.8 H, Absolute Lymphs (auto) 1.13, Nucleated RBC % 0.7, Differential Comment SCANNED, Diff Path Review August foll 12/03/20 05:35: Sodium 127 L, Potassium 4.0, Chloride 90 L, Carbon Dioxide 27.0, Anion Gap 10, BUN 69 H, Creatinine 6.15 H, Estim Creat Clear Calc 12.05, Est GFR (MDRD) Af Amer 12 L, Est GFR (MDRD) Non-Af 10 L, BUN/Creatinine Ratio 11.2, Glucose 123 H, Calcium 8.0 L 12/03/20 05:35: PT 16.6 H, INR 1.4, APTT 77.7 H 12/03/20 05:35: Random Vancomycin 20.8 H Micro: Microbiology 12/02/20 02:00 Blood Culture (Wb) - Central Line Bacteria Detection (PCR) - Final Enterococcus faecalis 12/02/20 02:00 Blood Culture (Wb) - Central Line Blood Culture - Preliminary 12/02/20 15:35 Mucosa - Nasopharyngeal SARS-CoV-2 Antigen (Rapid) - Final 11/29/20 13:20 Urine, Clean Catch Urine Culture - Final Enterococcus faecalis 11/29/20 21:20 Blood Culture (Wb) - Anticubital Left - Preliminary Enterococcus faecalis 11/29/20 21:20 Blood Culture (Wb) - Anticubital Left Blood Culture - Final Enterococcus faecalis 11/30/20 00:25 Blood Culture (Wb) - Line Draw Blood Culture - Final GPC Poss Enterococcus sp Physical Exam Const alert, oriented x3 and no apparent distress Constitutional Narrative: Upper middle-aged white male who appears older than stated age, lying in bed sleeping, appears comfortable, nontoxic, on baseline 4 L nasal cannula without any signs of respiratory distress Exam Limitations: no limitations HEENT head/scalp atraumatic and moist oral mucous membranes Eyes PERRL and EOMs intact bilaterally Eyes Narrative: Pale conjunctiva Neck no lymphadenopathy and supple Neck Narrative: Trachea midline, no thyroid enlargement noted, left subclavian line clean and dry Resp normal respiratory effort, no retractions, no use of accessory muscles and clear to auscultation bilaterally Resp Narrative: Diminished at bases bilaterally but clear Auscultation: Negative for crackles, rales, rhonchi or wheezes Cardio regular rate, regular rhythm, S1 normal heart sound, S2 normal heart sound, no murmurs, no rub, no gallops, no clicks and no JVD Cardio Narrative: No murmur but heart tones are distant GI normal to inspection, nondistended, normoactive bowel sounds, soft to palpation, non-tender and non-distended Extremity normal to inspection and full ROM Extremity Narrative: No cyanosis or clubbing, 1+ bilateral lower extremity pitting edema General Extremity: edema Skin skin turgor normal, no jaundice, no petechiae and no mottling Skin Narrative: Left upper extremity fistula with positive bruit and thrill, Neuro oriented x3, CN's II-XII intact bilaterally, moves all extremities and no focal motor deficits Neuro Narrative: Generalized weakness but no focal deficits Sensorium / Orientation: awake and alert Speech: speech normal Psych affect normal Assessment & Plan Assessment/Plan (1) Septic shock: (2) Acute UTI: (3) Pyelonephritis: PLAN: Septic shock secondary to Enterococcus pyelonephritis/UTI -Patient meets significant amount of urine despite end-stage renal disease -Remains on pressors with Levophed which is now at 25 and vasopressin has been initiated -Map goal of 65 -Patient states that he does have borderline blood pressures at baseline -Consider art line placement but will defer to critical care -Continue current antibiotics of ceftriaxone and ampicillin -TTE shows IE -repeat blood cultures for clearance done on 12/02/2020 remain positive for Enterococcus -Infectious diseases following-appreciate input -Critical care medicine is following-appreciate input AV IE -Surface ECHO 12/02/2020 + for AV vegetation 0.7-0.9cm on posterior leaflet -Patient has been accepted at [facility]--> awaiting bed for transfer -ID following--> continue CTX and ampicillin Coagulopathy secondary to Coumadin use -INR was 3.6 on presentation and is now 1.4 -Resolved -Goal INR is 2-3 -Patient received 3 units of FFP, vitamin K, and DDAVP during hospitalization -Discontinue daily INR Acute on chronic anemia -2 units given 11/30/2020 -Continued good hemostasis -Hemoglobin is relatively stable -Repeat CBC in a.m. PAF -Patient has now remained in sinus rhythm for 24 hours but has had periodic episodes of paroxysmal atrial fibrillation -Continue amiodarone -Coumadin is on hold given supratherapeutic INR -Continue heparin drip given possible procedures required--> will transition to Coumadin once stable Metabolic encephalopathy -Suspect related to acute infection -close to baseline -Improving some slowly End-stage renal disease on HD -Dialysis per nephrology--> due today for HD -Nephrology is following Chronic hyponatremia -Managed with volume removal per dialysis -Monitor -Stable DM-2 -Continue carb controlled diet -Continue lispro with meals -Continue Lantus as ordered -SSI -Accu-Cheks before meals and at bedtime -Blood sugars in goal range of 140-180 -Continue to monitor Debility -PT/OT Super morbid obesity -BMI is 47.9 -Complicates treatment, prognosis, and outcomes -Recommend weight loss -Suspect LASHAWN at baseline -Would initiate BiPAP if patient has any respiratory compromise DVT prophylaxis -heparin ggt CODE STATUS -Full code has been updated on current bacteremia/infective endocarditis and is aware of transfer pending to [facility].
[2020-12-03] MEDS: Epoetin Alfa epbx 10,000 UNITS/ML 20000 UNIT IV (11:43)
[2020-12-03 12:39] LABS: Pathologist Review Reviewed
[2020-12-03 12:44] LABS: Pathologist Review Reviewed
[2020-12-03] MEDS: Insulin Lispro 100 UNIT/ML INSULN.PEN SC (13:00)
--- NOTE | 2020-12-03 13:56 | DIALYSIS ---
Hemodialysis x3.5 hours completed at 1330 on a 3K bath, tolerated fair, UF 2000mL, accessed via LFA AVF using 15G needles, worked well, EMLA cream applied prior to needle placement, forgetful, moved access arm occasionally, needles pulled post treatment and stasis achieved without issue, Retacrit 20,000units given, c/o cramps BLE post dialysis, next treatment planned for , waiting for bed at [facility]
[2020-12-03 16:31] LABS: Bedside Glucose 91 mg/dL (70-110)
[2020-12-03 16:40] LABS: Bedside Glucose 101 mg/dL (70-110)
[2020-12-03] MEDS: Insulin Lispro 100 UNIT/ML INSULN.PEN 6 UNIT SC (16:53)
[2020-12-03] MEDS: HEPARIN/D5w 25,000 UNITS 25,000 UNITS/250 ML IV.SOLN. 0.1 UNITS IV (19:00)
[2020-12-03] MEDS: Acetaminophen 325 MG Tablet 650 MG PO (20:15)
[2020-12-03] MEDS: Atorvastatin Calcium 20 MG Tablet PO (20:18)
[2020-12-03] MEDS: Tamsulosin HCl 0.4 MG Capsule PO (20:18)
[2020-12-03] MEDS: 0.9% Saline Lock 10 ML Syringe IV (20:25)
[2020-12-03 23:11] LABS: Bedside Glucose 123 mg/dL (70-110)
[2020-12-04] VITALS (33 sets, daily range): BP systolic 80–156; BP diastolic 27–87; PULSE 62–76; RESP 16–64; TEMP 36.2–36.7; O2SAT 89–100
[2020-12-04 04:13] LABS: Hematocrit 26.8 % (40-54); Mean Corp Hgb Conc 29.9 g/dL (32-36); Mean Corpuscular Hgb 29.4 pg (27.0-32.0); Mean Corpuscular Volume 98.5 fL (80-94); Mean Platelet Vol. 9.3 fl (6.2-12.0); POSITIVE COUNT YES; POSITIVE DIFFERENTIAL YES; POSITIVE MORPHOLOGY YES; Platelet Count 127 K/mm3 (150-450); RBC Distribution Width CV 15.7 % (11.6-14.6); RBC Distribution Width SD 55.3 fl (35.1-43.9); Red Blood Count 2.72 M/mm3 (4.6-6.2); White Blood Count 25.5 K/mm3 (4.4-11.0)
[2020-12-04 04:16] LABS: Differential Indicated MANUAL DIFF
[2020-12-04 04:27] LABS: Anion Gap 9 (5-15); BUN 43 mg/dL (7-18); BUN/Creat Ratio 9.4 RATIO (10-20); Calcium,Total 7.9 mg/dL (8.5-10.1); Chloride 95 mmol/L (98-107); Creatinine, Serum 4.57 mg/dL (0.70-1.30); EST Glomerular Filtration Rate 14 mL/min (>60); Est Glom Filt Rate - Afr Amer 17 mL/min (>60); Estimated Creatinine Clearance 16.21 ml/min; Glucose 140 mg/dL (74-106); Potassium 4.3 mmol/L (3.5-5.1); Sodium Level 131 mmol/L (136-145)
[2020-12-04 05:12] LABS: Eosinophil 4 % (0-5); Lymphocyte 2 % (19-41); Monocyte 4 % (0-10); Myelocyte 2 % (0-0); Neutrophil-Segmented 88 % (47-70); Nucleated Red Bld Cells,Manual 2 % (0-5); Total Cells Counted 100 (MANUAL DIFF)
[2020-12-04 05:16] LABS: Absolute Lymphocyte Count 0.51 X10^3/uL (0.83-4.51); Monocyte# 0.51 X10^3/uL
[2020-12-04 05:17] LABS: Polychromasia 1+
[2020-12-04 05:18] LABS: Red Cell Morphology NORM C+C NORMAL (NORM C&C)
[2020-12-04 05:19] LABS: Differential Comment MANUAL DIFF; Platelet Estimate SLT DEC (ADEQ)
--- NOTE | 2020-12-04 06:55 | PCM.PN.INT ---
Assessment & Plan Assessment/Plan (1) Septic shock: (2) UTI (urinary tract infection): (3) Pyelonephritis: (4) ESRD (end stage renal disease): (5) Bradycardia: (6) Diabetes mellitus, type II: QUALIFIERS: Qualified Code(s): Z79.4 - hand i tube bender (current) use of insulin PLAN: RECOMMENDATIONS: 1. Continue vasopressor support to maintain a mean arterial pressure at or above 60 mmHg. 2. Continue hemodialysis support per nephrology recommendations. 3. Continue antimicrobials, per ID recommendations. 4. Continue to wean supplemental oxygen as tolerated. 5. Encourage incentive spirometer use and mobilize patient as tolerated. 6. Awaiting transfer to tertiary care facility. IMPRESSIONS: 1. 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 In addition, vasopressor support will be continued to maintain a mean arterial pressure at or above 60 mmHg. The patient is currently awaiting transfer to a tertiary care facility. 2. Chronic A. fib/chronic diastolic congestive heart failure/bradycardia Plan to continue heparin infusion as ordered. Volume optimization through hemodialysis would be indicated. 3. BPH/end-stage renal disease/hyponatremia/type 2 diabetes mellitus/debility Complicates care, management, recovery and prognosis. Continue Lantus and sliding scale insulin coverage. Physical therapy to work with the patient. TIME: 34 minutes of critical care time, independent of procedures, was spent addressing the patient's septic shock, review of all data and collaboration with the care team. ([id number]) Subjective Subjective The patient was seen and examined at the bedside this morning. Events from the last 24 hours have been reviewed. The patient is afebrile and maintaining appropriate oxygen saturations on 4 L/min via nasal cannula, which is his baseline requirement. The patient remains on both Levophed and vasopressin. Levophed is currently infusing at 20 mcg/min. The patient remains on a continuous heparin infusion. He did tolerate dialysis yesterday with 2 L of fluid removed. Transfer to [facility] is still pending. Objective Data Objective Data The patient's most recent lab work, culture data and imaging studies have all been personally reviewed. Surface echocardiogram from November 2019 demonstrated an ejection fraction of 55%. The RV was noted to be moderately dilated with moderate global RV systolic dysfunction. Right ventricular systolic pressure was estimated to be 71 mmHg. Urine and blood cultures dated November 29 were positive for Enterococcus faecalis. Vital Signs: Vital Signs Temp Pulse Resp BP Pulse Ox 97.7 F L 70 19 H 105/59 L 97 12/04/20 04:00 12/04/20 06:00 12/04/20 06:00 12/04/20 06:00 12/04/20 06:00 Oxygen Flow Rate (L/min) 4 Oxygen Delivery Method Nasal Cannula Weight: 146.8 kg Body Mass Index (BMI) 47.9 Intake & Output: Intake and Output for Last 24 Hours 12/02/20 12/03/20 12/04/20 23:59 23:59 23:59 Intake Total 1638.15 / 1773.78 2309.50 / 2324.18 395.30 / 395.30 Output Total 115 / 115 4045 / 4055 Balance 1523.15 / 1658.78 -1735.50 / -1730.82 375.30 / 375.30 Lab / Micro Data Attestation: I reviewed the patient's lab results. Result Diagrams: 12/04/20 04:05 12/04/20 04:05 Labs: Laboratory Results - last 24 hr 11/30/20 01:50: Diff Path Review Reviewed 12/03/20 05:35: Diff Path Review Reviewed 12/03/20 12:52: POC Glucose 91 12/03/20 16:30: POC Glucose 101 12/03/20 20:20: POC Glucose 123 H 12/04/20 04:05: WBC 25.5 H, RBC 2.72 L, Hgb 8.0 L, Hct 26.8 L, MCV 98.5 H, MCH 29.4, MCHC 29.9 L, RDW Std Deviation 55.3 H, RDW Coeff of Janiya 15.7 H, Plt Count 127 L, MPV 9.3, Immature Gran % (Auto) SENIOR TECHNICAL PROGRAM MANAGER, Neut % (Auto) SENIOR TECHNICAL PROGRAM MANAGER, Lymph % (Auto) SENIOR TECHNICAL PROGRAM MANAGER, Teller % (Auto) SENIOR TECHNICAL PROGRAM MANAGER, Eos % (Auto) SENIOR TECHNICAL PROGRAM MANAGER, Baso % (Auto) SENIOR TECHNICAL PROGRAM MANAGER, Absolute Neuts (auto) 23.0 H, Absolute Lymphs (auto) 0.51 L, Total Counted 100, Neutrophils % (Manual) 88 H, Lymphocytes % (Manual) 2 L, Monocytes % (Manual) 4, Eosinophils % (Manual) 4, Myelocytes % 2 H, Nucleated RBC % SENIOR TECHNICAL PROGRAM MANAGER, Nucleated RBCs/100 WBC 2, Differential Comment MANUAL DIFF, Diff Path Review May foll, Platelet Estimate SLT DEC, RBC Morphology NORM C+C, Polychromasia 1+ 12/04/20 04:05: Sodium 131 L, Potassium 4.3, Chloride 95 L, Carbon Dioxide 27.0, Anion Gap 9, BUN 43 H, Creatinine 4.57 H, Estim Creat Clear Calc 16.21, Est GFR (MDRD) Af Amer 17 L, Est GFR (MDRD) Non-Af 14 L, BUN/Creatinine Ratio 9.4 L, Glucose 140 H, Calcium 7.9 L Micro: Microbiology 12/02/20 02:00 Blood Culture (Wb) - Central Line Bacteria Detection (PCR) - Final Enterococcus faecalis 12/02/20 02:00 Blood Culture (Wb) - Central Line Blood Culture - Preliminary 12/02/20 15:35 Mucosa - Nasopharyngeal SARS-CoV-2 Antigen (Rapid) - Final 11/29/20 13:20 Urine, Clean Catch Urine Culture - Final Enterococcus faecalis 11/29/20 21:20 Blood Culture (Wb) - Anticubital Left - Preliminary Enterococcus faecalis 11/29/20 21:20 Blood Culture (Wb) - Anticubital Left Blood Culture - Final Enterococcus faecalis 11/30/20 00:25 Blood Culture (Wb) - Line Draw Blood Culture - Final GPC Poss Enterococcus sp Physical Exam Const alert General Appearance: cooperative, comfortable, well developed and appears older than stated age; Negative for in distress Nutritional Appearance: morbidly obese HEENT normocephalic, head/scalp atraumatic and moist oral mucous membranes Eyes PERRL, EOMs intact bilaterally and conjunctivae normal Neck supple General: trachea midline Resp Auscultation: diminished lung sounds; Negative for rales, rhonchi or wheezes Percussion: Negative for dullness Cardio regular rate, regular rhythm, S1 normal heart sound and S2 normal heart sound Heart Sounds: murmur systolic II/ harsh mid left sternal border GI normal to inspection, nondistended, normoactive bowel sounds Extremity no clubbing, cyanosis or edema Skin no rashes or lesions noted Neuro oriented x3, CN's II-XII intact bilaterally, moves all extremities and no focal motor deficits Psych cooperative and affect normal Charges/Coding Procedures Hospitalists Procedures: [id number] Critial Care 1st Hr
[2020-12-04] MEDS: Famotidine 20 MG Tablet PO (08:21)
[2020-12-04] MEDS: Amiodarone 200 MG Tablet PO (08:21)
[2020-12-04] MEDS: Menthol/Lanolin/Calamine/Znox 113 GM Tube 1 APPLIC TOPICAL ×2 (08:22→20:06)
[2020-12-04] MEDS: Insulin Lispro 100 UNIT/ML INSULN.PEN 7 UNIT SC (08:22)
[2020-12-04] MEDS: Nystatin Powder 15gm Bottle 1 APPLIC TOPICAL ×2 (08:23→20:07)
[2020-12-04 08:35] LABS: Bedside Glucose 135 mg/dL (70-110)
[2020-12-04] MEDS: Insulin Lispro 100 UNIT/ML INSULN.PEN SC ×3 (11:24→20:18)
[2020-12-04] MEDS: HYDROmorphone 0.5 MG/0.5 ML SYRINGE IV ×3 (11:25→21:37)
[2020-12-04 11:35] LABS: Bedside Glucose 159 mg/dL (70-110)
--- NOTE | 2020-12-04 12:43 | PN.HOSP_ITS ---
Subjective Subjective Patient remains relatively stable although he is still on Levophed at 25 and vasopressin. Transfer to [facility] is still pending. Bed not available yet. Patient complains of thirst and some back pain. Per discussion with nursing patient has stated that he just wants to . He realizes he has multiple medical yulisa rbidities and with what is going on now he indicates his quality of life is poor. Patient did asked me to fill 2 cups with ice and lids which I did. Patient did state he tolerated dialysis well yesterday. Objective Data Objective Data Vital Signs: Vital Signs Temp Pulse Resp BP Pulse Ox 97.2 F L 66 20 H 156/87 H 99 12/04/20 10:00 12/04/20 11:10 12/04/20 11:10 12/04/20 11:10 12/04/20 11:10 Oxygen Flow Rate (L/min) 4 Oxygen Delivery Method Nasal Cannula Weight: 146.8 kg Body Mass Index (BMI) 47.9 Intake & Output: Intake and Output for Last 24 Hours 12/02/20 12/03/20 12/04/20 23:59 23:59 23:59 Intake Total 1638.15 / 1773.78 2309.50 / 2324.18 592.22 / 592.22 Output Total 115 / 115 4045 / 4055 Balance 1523.15 / 1658.78 -1735.50 / -1730.82 572.22 / 572.22 Lab / Micro Data Result Diagrams: 12/04/20 04:05 12/04/20 04:05 Labs: Laboratory Results - last 24 hr 12/03/20 05:35: Diff Path Review Reviewed 12/03/20 12:52: POC Glucose 91 12/03/20 16:30: POC Glucose 101 12/03/20 20:20: POC Glucose 123 H 12/04/20 04:05: WBC 25.5 H, RBC 2.72 L, Hgb 8.0 L, Hct 26.8 L, MCV 98.5 H, MCH 29.4, MCHC 29.9 L, RDW Std Deviation 55.3 H, RDW Coeff of Janiya 15.7 H, Plt Count 127 L, MPV 9.3, Immature Gran % (Auto) SCHOOL HEALTH ASSISTANT, Neut % (Auto) SCHOOL HEALTH ASSISTANT, Lymph % (Auto) SCHOOL HEALTH ASSISTANT, [place] % (Auto) SCHOOL HEALTH ASSISTANT, Eos % (Auto) SCHOOL HEALTH ASSISTANT, Baso % (Auto) SCHOOL HEALTH ASSISTANT, Absolute Neuts (auto) 23.0 H, Absolute Lymphs (auto) 0.51 L, Total Counted 100, Neutrophils % (Manual) 88 H , Lymphocytes % (Manual) 2 L, Monocytes % (Manual) 4, Eosinophils % (Manual) 4, Myelocytes % 2 H, Nucleated RBC % SCHOOL HEALTH ASSISTANT, Nucleated RBCs/100 WBC 2, Differential Comment MANUAL DIFF, Diff Path Review May foll, Platelet Estimate SLT DEC, RBC Morphology NORM C+C, Polychromasia 1+ 12/04/20 04:05: Sodium 131 L, Potassium 4.3, Chloride 95 L, Carbon Dioxide 27.0, Anion Gap 9, BUN 43 H, Creatinine 4.57 H, Estim Creat Clear Calc 16.21, Est GFR (MDRD) Af Amer 17 L, Est GFR (MDRD) Non-Af 14 L, BUN/Creatinine Ratio 9.4 L, Glucose 140 H, Calcium 7.9 L 12/04/20 08:15: POC Glucose 135 H 12/04/20 11:23: POC Glucose 159 H Micro: Microbiology 12/02/20 03:16 Blood Culture (Wb) - Right Hand Blood Culture - Preliminary No growth in 48 hours. 12/02/20 02:00 Blood Culture (Wb) - Central Line Bacteria Detection (PCR) - Final Enterococcus faecalis 12/02/20 02:00 Blood Culture (Wb) - Central Line Blood Culture - Preliminary GPC Poss Enterococcus sp 12/02/20 15:35 Mucosa - Nasopharyngeal SARS-CoV-2 Antigen (Rapid) - Final 11/29/20 13:20 Urine, Clean Catch Urine Culture - Final Enterococcus faecalis 11/29/20 21:20 Blood Culture (Wb) - Anticubital Left - Preliminary Enterococcus faecalis 11/29/20 21:20 Blood Culture (Wb) - Anticubital Left Blood Culture - Final Enterococcus faecalis 11/30/20 00:25 Blood Culture (Wb) - Line Draw Blood Culture - Final GPC Poss Enterococcus sp Physical Exam Const alert, oriented x3 and no apparent distress Constitutional Narrative: Upper middle-aged white male who appears older than stated age, lying in bed sleeping but awakens easily and converses without difficulty, appears comfortable, nontoxic, on baseline 4 L nasal cannula without any signs of respiratory distress Exam Limitations: no limitations Nutritional Appearance: morbidly obese HEENT head/scalp atraumatic and moist oral mucous membranes HEENT Narrative: Mucous membranes are mildly dry, Mallampati 3-4 Head and Scalp: normocephalic Eyes PERRL and EOMs intact bilaterally Eyes Narrative: Pale conjunctiva Neck no lymphadenopathy and supple Neck Narrative: Trachea midline, no thyroid enlargement noted, left subclavian line clean and dry, significant ecchymosis at the left chest wall likely related to his coagulopathy and line placement Resp normal respiratory effort, no retractions, no use of accessory muscles and clear to auscultation bilaterally Resp Narrative: Diminished at bases bilaterally but clear Auscultation: Negative for crackles, rales, rhonchi or wheezes Cardio regular rate, regular rhythm, S1 normal heart sound, S2 normal heart sound, no murmurs, no rub, no gallops, no clicks and no JVD Cardio Narrative: No murmur but heart tones are distant GI normal to inspection, nondistended, normoactive bowel sounds, soft to palpation, non-tender and non-distended Extremity normal to inspection and full ROM Extremity Narrative: No cyanosis or clubbing, 1+ bilateral lower extremity pitting edema General Extremity: edema Skin skin turgor normal, no jaundice, no petechiae and no mottling Skin Narrative: Left upper extremity fistula with positive bruit and thrill, Neuro oriented x3, CN's II-XII intact bilaterally, moves all extremities and no focal motor deficits Neuro Narrative: Generalized weakness but no focal deficits Sensorium / Orientation: awake and alert Speech: speech normal Psych affect normal Assessment & Plan Assessment/Plan (1) Septic shock: (2) Acute UTI: (3) Pyelonephritis: PLAN: Septic shock secondary to Enterococcus pyelonephritis/UTI -Patient meets significant amount of urine despite end-stage renal disease -Remains on pressors with Levophed which is now at 25 and vasopressin -Map goal of 65 -Patient states that he does have borderline blood pressures at baseline -Consider art line placement but will defer to critical care -Continue current antibiotics of ceftriaxone and ampicillin -TTE shows IE -repeat blood cultures for clearance done on 12/02/2020 remain positive for Enterococcus -Infectious diseases following-appreciate input -Discussed case with ID this morning given white count uptrending -ID stated they would review the case -Critical care medicine is following-appreciate input AV IE -Surface ECHO 12/02/2020 + for AV vegetation 0.7-0.9cm on posterior leaflet -Patient has been accepted at [facility]--> awaiting bed for transfer -[facility] called today and states that it may be another day or 2 before they can accept for transfer -ID following--> continue CTX and ampicillin Coagulopathy secondary to Coumadin use -Resolved Acute on chronic anemia -2 units given 11/30/2020 -Continued good hemostasis -Hemoglobin is relatively stable -Repeat CBC in a.m. PAF -Patient remains in sinus rhythm -Has had periodic episodes of atrial fibrillation but none in over 48 hours now -Continue amiodarone -Coumadin is on hold given supratherapeutic INR -Continue heparin drip given possible procedures required--> will transition to Coumadin once stable -A.m. PTT is pending Metabolic encephalopathy -Suspect related to acute infection -close to baseline -Improving some slowly End-stage renal disease on HD -Dialysis per nephrology--> due today for HD -Nephrology is following Chronic hyponatremia -Managed with volume removal per dialysis -Monitor -Stable DM-2 -Continue carb controlled diet -Continue lispro with meals -Continue Lantus as ordered -SSI -Accu-Cheks before meals and at bedtime -Blood sugars in goal range of 140-180 -Continue to monitor Debility -PT/OT Super morbid obesity -BMI is 47.9 -Complicates treatment, prognosis, and outcomes -Recommend weight loss -Suspect LASHAWN at baseline -Would initiate BiPAP if patient has any respiratory compromise DVT prophylaxis -heparin ggt CODE STATUS -Full code
[2020-12-04 13:02] LABS: Pathologist Review Reviewed
[2020-12-04 13:51] LABS: Scan Smear per Review Criteria MANUAL DIFF
[2020-12-04 14:02] LABS: Partial Thromboplast Time 105.4 Seconds (24.1-36.2)
[2020-12-04] MEDS: 0.9% Saline Lock 10 ML Syringe IV (15:05)
--- NOTE | 2020-12-04 16:36 | PCM.HOSP.N ---
Hospitalist Note Family was in the waiting room of the ICU. I updated them with regards to current status and maintenance of therapy with antibiotics and pressors with an continue dialysis as per schedule. He is critical but stable at this time. We are still awaiting a bed at [facility]. Family is aware that 8 hospitals were called and attempts of transfer and [facility] is the only one that was able to accept him for future transfer although bed availability and timing is questionable as they are currently on diversion and have a waiting list. Hospitals called in attempt for transfer: [facility] [place]-no available beds at main campus or other facilities with services needed -This includes [facility]-no no available beds [facility]-no available beds [facility]-no available beds [facility]-no available beds -no available beds
[2020-12-04] MEDS: HEPARIN/D5w 25,000 UNITS 25,000 UNITS/250 ML IV.SOLN. 11 UNITS IV (16:52)
[2020-12-04 17:15] LABS: Bedside Glucose 121 mg/dL (70-110)
--- NOTE | 2020-12-04 18:40 | NURSING ---
Report given to Karina at [facility]. Pt to go to Bed 2014 at [facility] under care of Dr. Rodriguez. Pt notified via phone.
--- NOTE | 2020-12-04 19:42 | PCM.PN.ID ---
Physical Exam Narrative Feeling ok, BP slightly improved, no fever Resp normal air movement and clear to auscultation bilaterally Cardio Rate: tachycardic GI normal to inspection, nondistended, normoactive bowel sounds Extremity General Extremity: edema Skin no rashes or lesions noted ID ID: Route of nutrition/ use of supplements: [] Nutritional Intake: [] IV Site: [] Barcenas Catheter: [] Assessment & Plan Assessment/Plan (1) Septic shock: (2) ESRD (end stage renal disease): (3) Endocarditis: PLAN: E. faecalis aortic valve endocarditis with severe pulm htn, 3+ tricuspid insufficiency, and septic shock with ESRD. Bcx x2 and ucx with enterococcus faecalis in ED 11/01/20, pt given keflex, not contacted re: results. Will have infection control investigate. Repeat bcx (+) from yesterday, will repeat. 12/02 changed abx to amp/ceftriaxone. With lack of improvement in shock and cardiac dysfunction, recommend transfer for cardiac surgery eval; wbc worse today, pressors a little better today. He has been vaccinated for covid. Will follow, d/w primary team (4) Enterococcal bacteremia:
[2020-12-04] MEDS: Atorvastatin Calcium 20 MG Tablet PO (20:20)
[2020-12-04] MEDS: Tamsulosin HCl 0.4 MG Capsule PO (20:21)
[2020-12-04 20:26] LABS: Bedside Glucose 150 mg/dL (70-110)
--- NOTE | 2020-12-04 21:50 | NURSING ---
[facility] ground crew transports patient to [facility]. Out of unit at this time.
--- NOTE | 2020-12-04 23:22 | PN.RENAL_ITS ---
Subjective Subjective Following for ESRD. Pt seen before [facility]. No CP. Weak. Objective Data Objective Data Vital Signs: Vital Signs Temp Pulse Resp BP Pulse Ox 97.6 F L 76 22 H 106/73 94 12/04/20 19:00 12/04/20 21:00 12/04/20 20:00 12/04/20 21:00 12/04/20 20:00 Oxygen Flow Rate (L/min) 4 Oxygen Delivery Method Nasal Cannula Weight: 146.8 kg Body Mass Index (BMI) 47.9 Intake & Output: Intake and Output for Last 24 Hours 12/02/20 12/03/20 12/04/20 23:59 23:59 23:59 Intake Total 1638.15 / 1773.78 2309.50 / 2324.18 1206.34 / 1206.34 Output Total 115 / 115 4045 / 4055 50 / 50 Balance 1523.15 / 1658.78 -1735.50 / -1730.82 1156.34 / 1156.34 Lab / Micro Data Result Diagrams: 12/04/20 04:05 12/04/20 04:05 Labs: Laboratory Results - last 24 hr 12/04/20 04:05: WBC 25.5 H, RBC 2.72 L, Hgb 8.0 L, Hct 26.8 L, MCV 98.5 H, MCH 29.4, MCHC 29.9 L, RDW Std Deviation 55.3 H, RDW Coeff of Janiya 15.7 H, Plt Count 127 L, MPV 9.3, Immature Gran % (Auto) CLOSED CIRCUIT SCREEN WATCHER, Neut % (Auto) CLOSED CIRCUIT SCREEN WATCHER, Lymph % (Auto) CLOSED CIRCUIT SCREEN WATCHER, [place] % (Auto) CLOSED CIRCUIT SCREEN WATCHER, Eos % (Auto) CLOSED CIRCUIT SCREEN WATCHER, Baso % (Auto) CLOSED CIRCUIT SCREEN WATCHER, Absolute Neuts (auto) 23.0 H, Absolute Lymphs (auto) 0.51 L, Total Counted 100, Neutrophils % (Manual) 88 H , Lymphocytes % (Manual) 2 L, Monocytes % (Manual) 4, Eosinophils % (Manual) 4, Myelocytes % 2 H, Nucleated RBC % CLOSED CIRCUIT SCREEN WATCHER, Nucleated RBCs/100 WBC 2, Differential Comment MANUAL DIFF, Diff Path Review Reviewed, Platelet Estimate SLT DEC, RBC Morphology NORM C+C, Polychromasia 1+ 12/04/20 04:05: Sodium 131 L, Potassium 4.3, Chloride 95 L, Carbon Dioxide 27.0, Anion Gap 9, BUN 43 H, Creatinine 4.57 H, Estim Creat Clear Calc 16.21, Est GFR (MDRD) Af Amer 17 L, Est GFR (MDRD) Non-Af 14 L, BUN/Creatinine Ratio 9.4 L, Glucose 140 H, Calcium 7.9 L 12/04/20 08:15: POC Glucose 135 H 12/04/20 11:23: POC Glucose 159 H 12/04/20 13:35: APTT 105.4 H* 12/04/20 16:58: POC Glucose 121 H 12/04/20 20:17: POC Glucose 150 H Micro: Microbiology 11/29/20 21:20 Blood Culture (Wb) - Anticubital Left Blood Culture - Final Enterococcus faecalis 12/02/20 03:16 Blood Culture (Wb) - Right Hand Blood Culture - Preliminary No growth in 48 hours. 12/02/20 02:00 Blood Culture (Wb) - Central Line Bacteria Detection (PCR) - Final Enterococcus faecalis 12/02/20 02:00 Blood Culture (Wb) - Central Line Blood Culture - Preliminary GPC Poss Enterococcus sp 12/02/20 15:35 Mucosa - Nasopharyngeal SARS-CoV-2 Antigen (Rapid) - Final 11/29/20 13:20 Urine, Clean Catch Urine Culture - Final Enterococcus faecalis 11/30/20 00:25 Blood Culture (Wb) - Line Draw Blood Culture - Final GPC Poss Enterococcus sp Physical Exam Narrative Patient is alert and oriented x3. Weak. Head: Atraumatic normocephalic. Heart: Normal S1-S2 RRR. Chest: Lungs are clear to auscultation. Abdomen: Soft, normal bowel sounds, no pain on palpation, no guarding or rebound. Extremity: 2+ lower extremity edema. AV fistula left forearm positive thrill and bruit Assessment & Plan Assessment/Plan (1) ESRD (end stage renal disease) on dialysis: (2) Hyperkalemia: (3) Hyponatremia: (4) Septic shock: (5) UTI (urinary tract infection): (6) Bradycardia: PLAN: PLAN: -Patient is on TTS hemodialysis schedule. No need for HD today. Next HD tomorrow. It is very challenging with fluid removal at this time (in chronic unit patient is able to tolerate 4 to 5 L fluid removal with each HD session). Patient is on IV pressors. -We will give TAMICA with dialysis. Received 2 units PRBC on 11/30 -Potassium level is back to normal. Continue to monitor potassium level. We will adjust potassium bath with dialysis. Renal diet and protein supplement as ordered. -Sodium level is 129 mmol/L, patient is hypervolemic. Continue to limit fluid. -Hemodynamic support, UTI treatment as per the primary service. Blood and urine cultures are positive for Enterococcus. On IV antibiotics ampicillin and ceftriaxone -Echocardiogram completed revealed a sizable aortic valve vegetation, patient awaiting transfer to [facility]
--- NOTE | 2020-12-05 07:02 | PCM.DC.SUM ---
Providers Date of Admission: 11/29/20 Primary Care Physician: Dr. Francisco Alcazar MD Consultations 11/29/20 17:09 Consult: Nephrology Routine Consulting Provider: Justo Sauceda Reason for Consult: ESRD, missed dialysis EMERGENT Consult: No MD Notified: Yes Date Notified: 11/29/20 Time Notified: 17:09 Method of Notification: Verbal 11/29/20 21:02 Consult: Cardiology Routine Consulting Provider: Jamaal Young Reason for Consult: Symptomatic bradycardia EMERGENT Consult: No MD Notified: Yes Date Notified: 11/29/20 Time Notified: 20:38 Method of Notification: Verbal Consult: Dental Technician Instructor / Pulmonary Medicine Routine Consulting Provider: Eyad Soria Reason for Consult: symptomatic bradycardia EMERGENT Consult: No Notified: Yes Date Notified: 11/29/20 Time Notified: 20:37 Method of Notification: Text 11/29/20 21:48 Consult: General Surgery Routine Consulting Provider: Elier Hassan Reason for Consult: central line access EMERGENT Consult: Yes MD Notified: Yes Date Notified: 11/29/20 Time Notified: 21:48 Method of Notification: Verbal 12/01/20 11:53 Consult: Infectious Disease Routine Consulting Provider: Rony Recinos Reason for Consult: enterococcus bacteremia EMERGENT Consult: No Notified: Yes Date Notified: 12/01/20 Time Notified: 14:20 Method of Notification: Text 12/02/20 15:53 Consult: Cardiology Routine Consulting Provider: Aashish Sheffield Reason for Consult: IE AV EMERGENT Consult: No Notified: Yes Date Notified: 12/02/20 Time Notified: 17:54 Method of Notification: Text Reason For Visit: SEPSIS DUE TO UTI / ESRD / MISSED DIALYSIS Diagnosis Discharge Diagnosis (1) ESRD (end stage renal disease) on dialysis: Status: Chronic Code(s): N18.6 - End stage renal disease; Z99.2 - Dependence on renal dialysis (2) Hyperkalemia: Status: Inactive Code(s): E87.5 - Hyperkalemia (3) Hyponatremia: Status: Acute Code(s): E87.1 - Hypo-osmolality and hyponatremia (4) Septic shock: Status: Acute Code(s): A41.9 - Sepsis, unspecified organism; R65.21 - Severe sepsis with septic shock (5) UTI (urinary tract infection): Status: Acute Code(s): N39.0 - Urinary tract infection, site not specified (6) Bradycardia: Status: Acute Code(s): R00.1 - Bradycardia, unspecified Medications at Discharge Home Medications atorvastatin 20 mg PO QHS 04/16/19 insulin lispro 5 unit SC LUNCH insuln.pen 04/28/19 insulin lispro 7 unit SC BREAKFAST insuln.pen 04/28/19 docusate sodium 100 mg PO BID PRN PRN 11/21/19 melatonin 3 mg PO QHS PRN 11/21/19 insulin lispro 6 unit SC DINNER 12/29/19 insulin lispro See Protocol SC ACHS 12/29/19 tamsulosin 0.4 mg PO QHS 12/29/19 warfarin 3 mg PO SUMOTUWETHFR 06/10/20 insulin glargine 100 unit/mL (3 mL) subcutaneous pen 15 unit SC BID ml 08/23/20 amiodarone 200 mg PO DAILY 11/01/20 furosemide 80 mg PO BID 11/01/20 warfarin 6 mg PO SA 11/01/20 magnesium hydroxide [Milk of Magnesia] 30 - 60 ml PO DAILY PRN 11/29/20 Hospital Course Operations None Procedures 2-D Echocardiogram, Blood transfusion and Central line placement Summary of Care Provided Minutes Spent on Discharge: 41 Hospital Course: Mr. Torres is a 60-year-old white male who presented to the emergency department on 11/29/2020 complaining of back pain and bilateral flank pain. On admission he reported that he missed his regular scheduled dialysis the day prior secondary to back pain and because of its persistence he presented to the emergency department. On admission he reported the back pain of been going on for 2 days and initially was bilateral but now is localized to the left flank. He also reported that he had been having generalized malaise, nausea and vomiting. He did note that while he is on dialysis he does make urine and his urine was very concentrated he was not having dysuria per se. On admission he was afebrile, had a white count of 14.8 and a lactic acid of 2.3 but his serum creatinine was 7.7. His urinalysis was consistent with urinary tract infection and was positive for leukocyte esterase and nitrites as well as 2+ bacteria and white cells. He was initially admitted to the medical floor and placed on broad-spectrum antibiotics. A CT of his abdomen was done on admission and showed a stable exam as compared to previous, which was obtained and October 2020, with splenomegaly nonobstructive bilateral nephrolithiasis and small layering gallstones. Blood and urine cultures were obtained prior to admission. Rapid response was called on the evening of 11/29/2020 for symptomatic bradycardia and hypotension. The nurse was at that time transferred to the ICU as there was concern for sepsis and had refractory hypotension for which Levophed was initiated. He was maintained on antibiotics but they were broadened to Vanco and Zosyn. His blood cultures resulted positive early in the morning on 12/02/2020 for Enterococcus faecalis and sensitivities were reported out as amp sensitive. At that time his antibiotics were narrowed to ampicillin and ceftriaxone by infectious disease. Upon resolve positive blood cultures an echocardiogram was ordered to assess for endocarditis. This was performed on 12/02/2020 and showed an EF of 55%, mild concentric LVH, stage II diastolic dysfunction, severe pulmonary hypertension with a right ventricular systolic pressure of 72 mmHg, and a 0.9 x 0.7 cm mobile echogenic structure on the left coronary cusp consistent with vegetation. At that time the case was discussed further with both he and his with regards to the need of transfer to a tertiary center for evaluation by CT surgery. Their initial request was [facility]. On 12/02/2020 we called 8 hospitals until we got a second acceptance for transfer at [facility] but we were unable to obtain a bed till 12/04/2020 given high census. Repeat blood cultures were drawn on 12/02/2020 and remained positive for Enterococcus faecalis. He remained on pressors with Levophed at 25 and vasopressin. He had been dialyzed regularly per his schedule and tolerating this fairly well. He did develop some paroxysmal atrial fibrillation which is a chronic issue for him and he was maintained on his amiodarone. He typically is on Coumadin and on admission his INR was 3.6. General surgery placed a subclavian central venous catheter on 11/29/2020 and the patient unfortunately had some bleeding post placement therefore his INR reversed was reversed and once he was stabilized he was placed on a heparin drip pending further procedures. He was transfused 2 units of packed red blood cells and given FFP, DDAVP, and vitamin K for INR reversal and to temporize bleeding. he was on his baseline 4 L nasal cannula at discharge. He was discharged to [facility] in adequate stable condition on 12/04/2020. Discharge diagnoses: Septic shock secondary to Enterococcus faecalis bacteremia/UTI Aortic valve infective endocarditis Supratherapeutic INR-resolved Acute anemia secondary to bleeding from central venous catheter placement Chronic anemia secondary to end-stage renal disease Paroxysmal atrial fibrillation Metabolic encephalopathy-resolved End-stage renal disease Chronic hyponatremia DM-2 Super morbid obesity Pulmonary hypertension Diastolic heart failure-compensated Suspected LASHAWN Debility Weight / BMI Weight Weight: 146.8 kg Body Mass Index (BMI) 47.9 ABG / Lab / Microbiology Data Result Diagrams: 12/04/20 04:05 12/04/20 04:05 Laboratory: Laboratory Results - last 24 hr 12/04/20 04:05: Diff Path Review Reviewed 12/04/20 08:15: POC Glucose 135 H 12/04/20 11:23: POC Glucose 159 H 12/04/20 13:35: APTT 105.4 H* 12/04/20 16:58: POC Glucose 121 H 12/04/20 20:17: POC Glucose 150 H Microbiology: Microbiology 11/29/20 21:20 Blood Culture (Wb) - Anticubital Left Blood Culture - Final Enterococcus faecalis 12/02/20 03:16 Blood Culture (Wb) - Right Hand Blood Culture - Preliminary No growth in 48 hours. 12/02/20 02:00 Blood Culture (Wb) - Central Line Bacteria Detection (PCR) - Final Enterococcus faecalis 12/02/20 02:00 Blood Culture (Wb) - Central Line Blood Culture - Preliminary GPC Poss Enterococcus sp 12/02/20 15:35 Mucosa - Nasopharyngeal SARS-CoV-2 Antigen (Rapid) - Final 11/29/20 13:20 Urine, Clean Catch Urine Culture - Final Enterococcus faecalis 11/30/20 00:25 Blood Culture (Wb) - Line Draw Blood Culture - Final GPC Poss Enterococcus sp Meaningful Use Info Meaningful Use Diagnoses (Choose all that apply): None applicable Discharge Plan Admission Admit Date/Time: 11/29/20 16:57 Attending Provider: Christine Thorne Primary Care Provider: Francisco Alcazar Consulting Providers: Jamaal Young ; Justo Sauceda ; Eyad Soria ; Elier Hassan ; Rony Recinos ; Yohannes,Marion Discharge Orders/Prescriptions Prescriptions: No Action atorvastatin 20 MG tablet 20 mg PO QHS RF: 0 insulin lispro 100 UNIT/ML insulin pen 5 unit SC LUNCH RF: 0 insulin lispro 100 UNIT/ML insulin pen 7 unit SC BREAKFAST RF: 0 melatonin 3 MG tablet 3 mg PO QHS PRN (Reason: Insomnia) RF: 0 docusate sodium 100 MG capsule 100 mg PO BID PRN PRN (Reason: STOOL SOFTNER) RF: 0 tamsulosin 0.4 MG capsule 0.4 mg PO QHS RF: 0 insulin lispro 100 UNIT/ML insulin pen 6 unit SC DINNER RF: 0 insulin lispro 100 UNIT/ML insulin pen See Protocol unit SC ACHS RF: 0 insulin glargine 100 unit/mL (3 mL) insulin pen 15 unit SC BID RF: 0 warfarin 3 MG tablet 3 mg PO SUMOTUWETHFR RF: 0 furosemide 40 mg tablet 80 mg PO BID RF: 0 warfarin 3 mg tablet 6 mg PO SA RF: 0 amiodarone 200 MG tablet 200 mg PO DAILY RF: 0 magnesium hydroxide [Milk of Magnesia] 400 mg/5 mL Suspension 30 - 60 ml PO DAILY PRN (Reason: Constipation) RF: 0 Referrals / Follow Up: Francisco Alcazar MD [Primary Care Provider] - Disposition Disposition (needs filled in before D/C Order can be placed): [facility]
== END 2020-12-04 22:00 | disposition short-term general hospital (02) | DRG 871 ==
LOC: ED 15:01 → PCU 17:08 → ICU 21:09
PROVIDERS: Hospitalist; Internal Medicine Critical Care Medicine; Admitting Provider Student in an Organized Health Care Education/Training Program; Emergency Provider Emergency Medicine; PCP Family Medicine; Visit Provider Internal Medicine
DX: A41.9 Sepsis, unspecified organism (principal); R65.21 Severe sepsis with septic shock; G93.41 Metabolic encephalopathy; N18.6 End stage renal disease; I33.0 Acute and subacute infective endocarditis; N13.6 Pyonephrosis; E87.1 Hypo-osmolality and hyponatremia; E87.2 Acidosis; Z68.42 Body mass index [BMI] 45.0-49.9, adult; D62 Acute posthemorrhagic anemia; N17.9 Acute kidney failure, unspecified; I13.2 Hypertensive heart and chronic kidney disease with heart failure and with stage 5 chronic kidney disease, or end stage renal disease; I50.32 Chronic diastolic (congestive) heart failure; D68.32 Hemorrhagic disorder due to extrinsic circulating anticoagulants; I48.20 Chronic atrial fibrillation, unspecified; I48.0 Paroxysmal atrial fibrillation; E66.01 Morbid (severe) obesity due to excess calories; Z99.2 Dependence on renal dialysis; Z66 Do not resuscitate; E11.22 Type 2 diabetes mellitus with diabetic chronic kidney disease; Z79.4 Long term (current) use of insulin; T45.515A Adverse effect of anticoagulants, initial encounter; E87.5 Hyperkalemia; N40.0 Benign prostatic hyperplasia without lower urinary tract symptoms; I27.20 Pulmonary hypertension, unspecified; I07.1 Rheumatic tricuspid insufficiency; G47.33 Obstructive sleep apnea (adult) (pediatric); B95.2 Enterococcus as the cause of diseases classified elsewhere; R16.1 Splenomegaly, not elsewhere classified; D63.1 Anemia in chronic kidney disease; D73.4 Cyst of spleen; E78.5 Hyperlipidemia, unspecified; G47.00 Insomnia, unspecified; Z86.73 Personal history of transient ischemic attack (TIA), and cerebral infarction without residual deficits; Z87.442 Personal history of urinary calculi; Z87.74 Personal history of (corrected) congenital malformations of heart and circulatory system; Z87.891 Personal history of nicotine dependence; Z82.49 Family history of ischemic heart disease and other diseases of the circulatory system; Z82.3 Family history of stroke; Z79.01 Long term (current) use of anticoagulants; K80.20 Calculus of gallbladder without cholecystitis without obstruction
CPT/HCPCS: 36415; 71045; 74176; 80048; 80053; 80202; 81001; 82962; 83605; 84484; 85025; 85027; 85610; 85730; 86850; 86870; 86900; 86901; 86902; 86920; 86922; 87040; 87077; 87086; 87088; 87149; 87186; 87426; 90937; 93005; 93306; 97110; 97162; 97166; 97530; 97535; 97802; 99285; J7030; J7040; J7050; P9016; P9017; A4216; G0257; J0290; J0610; J0696; J2597; J3490; Q5106